=== PATIENT | male | born 1945 | race American Indian/Alaskan Native ===

== ENCOUNTER 2017-04-29 16:57 | Inpatient (IN) | payer MEDICARE, OTHER ==
[2017-04-29] MEDS ORDERED: TAZO IVPB STA (17:16)
[2017-04-29] MEDS ORDERED: PIPERACILL IVPB STA (17:16)
[2017-04-29] MEDS ORDERED: NS IVPB STA (17:16)
[2017-04-29] MEDS ORDERED: Vancomycin 1gm in NS 250ml 1 G/250 ML BAG IVPB STA (17:16)
[2017-04-29 17:25] LABS: VENOUS BLOOD GAS BASE EXCESS -7.5 mmol/L (0.0-2.0); VENOUS BLOOD PH 7.26 (7.32-7.43)
[2017-04-29] MEDS ORDERED: Sodium Chloride 0.9% 1,000 ML IV SCH (17:30)
[2017-04-29 17:32] LABS: BASO # 0.02 K/mm3 (0.0-2.0); BASO % 0.1 % (0.0-3.0); GRAN # 19.15 (1.4-6.5); GRAN % 86.2 % (50.0-68.0); HEMATOCRIT 38.2 % (42.0-52.0); LYMPH # 1.8 (1.2-3.4); LYMPH % 7.9 % (22.0-35.0); MEAN CELL VOLUME 100.3 fl (80.0-105.0); MEAN CORPUSCULAR HEMOGLOBIN 33.6 pg (25.0-35.0); MEAN CORPUSCULAR HGB CONC 33.5 g/dl (31.0-37.0); MEAN PLATELET VOLUME 11.7 fl (7.0-11.0); MONO # 1.3 (0.1-0.6); MONO % 5.8 % (1.0-6.0); RED CELL DISTRIBUTION WIDTH 15.1 % (11.5-14.5); WHITE BLOOD COUNT 22.2 10^3/ul (4.5-11.0)
[2017-04-29 17:41] LABS: BILIRUBIN,TOTAL 0.6 mg/dL (0.2-1.3); CALCIUM 8.4 mg/dL (8.4-10.5); MAGNESIUM 1.4 mg/dL (1.7-2.2); PHOSPHOROUS 3.7 mg/dL (2.5-4.5); POTASSIUM 4.6 mmol/L (3.6-5.0); TOTAL PROTEIN 7.8 g/dL (5.8-8.3)
[2017-04-29 17:44] LABS: INR 1.18 (0.93-1.08); PARTIAL THROMBOPLASTIN TIME 36.3 Seconds (23.7-30.8)
[2017-04-29] MEDS: Sodium Chloride 0.9% 500 ML IV STA ×2 (18:00→18:24)
--- NOTE | 2017-04-29 18:00 | ED PDOC ---
Arrival/HPI - General Chief Complaint: Altered Mental Status Time Seen by Provider: 04/29/17 17:05 Historian: Family - History of Present Illness Narrative History of Present Illness (Text): 04/29/17 17:30 A 71 year old male, whose past medical history includes HIV, hypertension, prostate cancer, chronic kidney disease, and charcots gout, presents to the emergency department for dark black stool, which began about 3 days ago. The patient's hpi is limited and is expressed by his sister. The patient's sister reports that yesterday the patient was at baseline and earlier today the patient was confused, shivering, and breathing really fast. The patient has abdominal pain in addition to his stool changes. The patient denies any chest pain, fever, headaches, nausea, vomiting, or any other complaints at this time. Time/Duration: < week (x 3 days) Symptom Onset: Gradual Symptom Course: Unchanged Activities at Onset: Light Context: Home Past Medical History - Provider Review Nursing Documentation Reviewed: Yes - Infectious Disease Hx of Infectious Diseases: None - Tetanus Immunization Tetanus Immunization: Up to Date - Cardiac Hx Cardiac Disorders: Yes Hx Hypertension: Yes - Pulmonary Hx Respiratory Disorders: No - Neurological Hx Neurological Disorder: No - HEENT Hx HEENT Disorder: No - Renal Hx Renal Disorder: No - Endocrine/Metabolic Hx Diabetes Mellitus Type 1: No Hx Diabetes Mellitus Type 2: No - Hematological/Oncological Hx Blood Transfusions: No - Integumentary Hx Dermatological Disorder: Yes (CELLULITIS OF L ANKLE 8-6-16.AMPUTATED 1ST TOE LEFT FOOT.,I/D RT HAND ABCES) Other/Comment: Ulcer of second toe BL - Musculoskeletal/Rheumatological Hx Musculoskeletal Disorders: Yes Hx Falls: No Hx Gout: Yes Hx Osteomyelitis: Yes (Left first toe) - Gastrointestinal Hx Gastrointestinal Disorders: No - Genitourinary/Gynecological Hx Genitourinary Disorders: Yes Hx Prostate Cancer: Yes - Psychiatric Hx Psychophysiologic Disorder: No Hx Substance Use: No - Surgical History Hx Amputation: Yes (Left first toe) Other/Comment: prostatectomy, incision and drainage of right hand abscess - Anesthesia Hx Anesthesia Reactions: No Hx Malignant Hyperthermia: No Family/Social History - Physician Review Nursing Documentation Reviewed: Yes Family/Social History: Unknown Family HX Smoking Status: Never Smoked Hx Alcohol Use: No Hx Substance Use: No Allergies/Home Meds Allergies/Adverse Reactions: Allergies No Known Allergies Allergy (Verified 04/29/17 17:01) Home Medications: Home Meds Medication Instructions Recorded Confirmed Unobtainable 04/29/17 04/29/17 Review of Systems - Physician Review All systems were reviewed & negative as marked: Yes - Review of Systems Constitutional: absent: Fevers Cardiovascular: absent: Chest Pain Gastrointestinal: Abdominal Pain, Hematochezia (x 3 days ). absent: Nausea, Vomiting Neurological: absent: Headache Physical Exam Vital Signs Reviewed: Yes Vital Signs Temp Pulse Resp BP Pulse Ox 04/29/17 19:07 103 F H 119 H 29 H 144/87 97 04/29/17 18:36 103 F H 04/29/17 17:57 125 H 21 166/98 H 04/29/17 17:36 104 F H 04/29/17 17:33 104 F H 134 H 20 168/110 H 99 04/29/17 17:26 104.7 F H 04/29/17 17:08 122 H 40 H 168/110 H 99 Temperature: Febrile Blood Pressure: Hypertensive Pulse: Tachycardic Respiratory Rate: Tachypneic Appearance: Positive for: Ill-Appearing, Uncomfortable Pain Distress: None Mental Status: Positive for: Alert and Oriented X 3, Confused - Systems Exam Head: Present: Atraumatic, Normocephalic Pupils: Present: PERRL Extroacular Muscles: Present: EOMI Conjunctiva: Present: Normal Mouth: Present: Dry Pharnyx: Present: Normal. No: ERYTHEMA Nose (Internal): Present: Normal Inspection Neck: Present: Normal Range of Motion. No: Lymphadenopathy Respiratory/Chest: Present: Clear to Auscultation, Good Air Exchange. No: Respiratory Distress, Accessory Muscle Use Cardiovascular: Present: Regular Rate and Rhythm, Normal S1, S2. No: Murmurs Abdomen: Present: Normal Bowel Sounds, Other (protuberant abdominal). No: Tenderness, Distention, Peritoneal Signs, Rebound, Guarding Rectal: Present: Other (chaperoned by EMT; dark brown stool with guaiac positve ; no positive hemorrhoid) Back: Present: Normal Inspection Upper Extremity: Present: Normal Inspection. No: Cyanosis, Edema Lower Extremity: Present: Edema (trace edema ), Other (amputation of the 1st and 2nd digit on left foot) Neurological: Present: GCS=15, CN II-XII Intact, Speech Normal Skin: Present: Warm, Dry, Normal Color. No: Rashes Psychiatric: Present: Alert, Oriented x 3, Other (confused ) Medical Decision Making ED Course and Treatment: 04/29/17 18:06 Impression: A 71 year old male with dark black stool and abdominal pain. Differential Diagnosis included but are not limited to: Sepsis due to UTI vs. Abdominal infection vs. PNA; GI bleed Plan: -- VBG -- Abd & Pel CT -- Head CT -- EKG -- Chest X-Ray -- Tylenol, IV fluids, Vancomycin, Zosyn -- Labs -- Procalcitonin serum -- Urinalysis -- Reassess and disposition Prior Visits: Notes and results from previous visits were reviewed. The patient was last seen in the emergency department on 03/25/16 for lower extremity problem. The patient was hospitalized. Progress Notes: EKG: Ordered, reviewed, and independently interpreted the EKG. Rate : 121 BPM Rhythm : Sinus Tachycardic Interpretation : No ST-segment elevations or depressions, no T-wave inversions, normal intervals. Comparison : No previous EKG for comparison. Code sepsis was called due to patient meeting criteria. 04/29/17 18:33 Discussed case with GI Fellow, Dr. Femi De Dios, covering Dr. Leonardo, and informed him of lab results and GI bleed with + guaic and abdominal pain. 04/29/17 18:42 Discussed case with Renal, Dr. Clemons, covering for Dr. Arechiga. 04/29/17 19:[address] Nazario, Cardiology who agrees with no ASA or heparin secondary to GI bleed. Troponin elevation is most likely d/t sepsis and creatinine. Case discussed with Dr Dominguez, ICU Attending who I reviewed the case in detail with him and he will accept it to his service. I also discussed that the CT results are pending. On reevaluation, patient is improving. Breathing has slowed down to 32 RR. Lungs are clear after 2 L of fluids. Fever improved to 103. HR 117. - Critical Care Critical Care Minutes: 60 minutes - Lab Interpretations Lab Results: 04/29/17 17:00 04/29/17 17:00 Lab Results 04/29/17 18:10: Urine Color Yellow, Urine Appearance Sl cloudy, Urine pH 6.0, Ur Specific [place] 1.020, Urine Protein >=300 H, Urine Glucose (UA) Negative, Urine Ketones Negative, Urine Blood Large H, Urine Nitrate Negative, Urine Bilirubin Negative, Urine Urobilinogen 0.2, Ur Leukocyte Esterase Small H, Urine RBC 25 - 30, Urine WBC 10 - 15, Ur Epithelial Cells 0 - 2, Amorphous Sediment Few, Urine Bacteria Many, Urine Other [place] 04/29/17 17:30: Blood Type Pending, Antibody Screen Pending, BBK History Checked No verified bt 04/29/17 17:15: pO2 37, VBG pH 7.26 L, VBG pCO2 43.0, VBG HCO3 19.3 L, VBG Total CO2 20.6 L, VBG O2 Sat (Calc) 68.0 H, VBG Base Excess -7.5 L, VBG Potassium 4.6, Glucose 107, Lactate 5.0 H*, FiO2 21.0, Sodium 141.0, Chloride 106.0, Venous Blood Potassium 4.6 04/29/17 17:00: Sodium 142, Potassium 4.6, Chloride 105, Carbon Dioxide 19 L, Anion Gap 23 H, BUN 76 H, Creatinine 6.7 H, Est GFR ( Amer) 10, Est GFR ( Non-Af Amer) 8, Random Glucose 104, Calcium 8.4, Phosphorus 3.7, Magnesium 1.4 L , Total Bilirubin 0.6, AST 41, ALT 21, Alkaline Phosphatase 75, Troponin I 0.13 H*, NT-Pro-B Natriuret Pep 92546 H, Total Protein 7.8, Albumin 3.9, Globulin 3.9 , Albumin/Globulin Ratio 1.0 L 04/29/17 17:00: PT 12.7 H, INR 1.18 H, APTT 36.3 H 04/29/17 17:00: WBC 22.2 H D, RBC 3.81, Hgb 12.8 L, Hct 38.2 L, MCV 100.3, MCH 33.6, MCHC 33.5, RDW 15.1 H, Plt Count 192, MPV 11.7 H, Gran % 86.2 H, Lymph % ( Auto) 7.9 L, [place] % (Auto) 5.8, Eos % (Auto) 0.0 L, Baso % (Auto) 0.1, Gran # 19.15 H, Lymph # 1.8, [place] # 1.3 H, Eos # 0.0, Baso # 0.02 I have reviewed the lab results: Yes Interpretation: Abnormal lab values - RAD Interpretation Radiology Orders: 04/29/17 17:05 CHEST PORTABLE [RAD] Stat 04/29/17 17:08 CHEST,ABDOMEN, PELVIS W/O CONT [CT] Stat HEAD W/O CONTRAST [CT] Stat 04/29/17 18:21 CHEST W/O CONTRAST [CT] Stat CXR with no acute infiltrate. f/u CT Chest. Production Or Plant Engineer: ED Physician - Medication Orders Current Medication Orders: Piperacillin Sod/Tazobactam Sod (Zosyn 3.375 In Ns 100ml) 100 mls @ 200 mls/hr IVPB Q6 DWAIN PRN Reason: Protocol Stop: 04/30/17 06:29 Sodium Chloride (Sodium Chloride 0.45%) 1,000 mls @ 80 mls/hr IV .[id number] DWAIN Discontinued Medications Acetaminophen (Tylenol 650 Mg Supp) 650 mg RC STAT STA Stop: 04/29/17 17:28 Last Admin: 04/29/17 17:36 Dose: 650 mg Re-Assess: [facility] Pain/Vitals Document 04/29/17 18:36 GMI (Rec: 04/29/17 19:09 GMI [id number]) Pain Reassessment Is This A Pain ReAssessment? No Sleep Is patient sleeping during reassessment? No Presence of Pain Presence of Pain No Vitals Temperature (97.6 F-99.6 F) 103 F Temperature Source Rectal Acetaminophen (Tylenol 650 Mg Supp) Confirm Administered Dose 650 mg .ROUTE .STK -MED ONE Stop: 04/29/17 17:29 Last Admin: 04/29/17 17:54 Dose: Amlodipine Besylate (Norvasc) 5 mg PO STAT STA Stop: 04/29/17 18:54 Sodium Chloride (Sodium Chloride 0.9%) 1,000 mls @ 150 mls/hr IV .[id number] DWAIN Last Admin: 04/29/17 17:54 Dose: 150 mls/hr Vancomycin HCl (Vancomycin 1gm) 1 g in 250 mls @ 167 mls/hr IVPB STAT STA PRN Reason: Protocol Stop: 04/29/17 18:45 Last Admin: 04/29/17 17:55 Dose: 167 mls/hr Piperacillin Sod/Tazobactam Sod (Zosyn 4.5 Gm In Ns 100ml) 4.5 g in 100 mls @ 200 mls/hr IVPB STAT STA PRN Reason: Protocol Stop: 04/29/17 17:45 Sodium Chloride (Sodium Chloride 0.9%) 1,000 mls @ 2,000 mls/hr IV .Q30M ONE Stop: 04/29/17 18:35 Last Admin: 04/29/17 18:17 Dose: 2,000 mls/hr Sodium Chloride (Sodium Chloride 0.9%) 500 mls @ 999 mls/hr IV .Q31M STA Stop: 04/29/17 18:37 Last Admin: 04/29/17 18:24 Dose: - Scribe Statement The provider has reviewed the documentation as recorded by the Malindaibe Jacklyn Hensley Provider Scribe Attestation: All medical record entries made by the Scribe were at my direction and personally dictated by me. I have reviewed the chart and agree that the record accurately reflects my personal performance of the history, physical exam, medical decision making, and the department course for this patient. I have also personally directed, reviewed, and agree with the discharge instructions and disposition. Disposition/Present on Arrival - Present on Arrival Any Indicators Present on Arrival: No History of DVT/PE: No History of Uncontrolled Diabetes: No Urinary Catheter: No History of Decub. Ulcer: No History Surgical Site Infection Following: None - Disposition Have Diagnosis and Disposition been Completed?: Yes Diagnosis: Septic shock, GI bleed, Elevated troponin, Acute on chronic renal failure Disposition: HOSPITALIZED Disposition Time: 18:37 Patient Plan: Admission Patient Problems: Current Active Problems Problem Status Onset Septic shock Acute GI bleed Acute Elevated troponin Acute Acute on chronic renal failure Acute Condition: CRITICAL Referrals: [facility], [Primary Care Provider] - Follow up with primary Forms: [employer] (Upper [place])
[2017-04-29 18:02] LABS: TROPONIN I 0.13 ng/mL
[2017-04-29] MEDS ORDERED: Sodium Chloride 0.9% 1,000 ML IV ONE (18:06)
[2017-04-29 18:31] LABS: URINE BILIRUBIN NEGATIVE (NEGATIVE); URINE BLOOD LARGE (NEGATIVE); URINE GLUCOSE (UA) NEGATIVE (NEGATIVE); URINE KETONE NEGATIVE (NEGATIVE); URINE LEUKOCYTE ESTERASE SMALL Leu/uL (NEGATIVE); URINE PROTEIN >=300 mg/dL (<30 mg/dL); URINE UROBILINOGEN 0.2 E.U./dL (<1 E.U./dL)
[2017-04-29 18:35] LABS: URINE COLOR YELLOW (YELLOW)
[2017-04-29 18:36] LABS: URINE APPEARANCE SL CLOUDY (CLEAR)
[2017-04-29 18:43] LABS: URINE BACTERIA MANY (NEG); URINE EPITHELIAL CELLS 0 - 2 /hpf (0-5); URINE RBC 25 - 30 /hpf (0-2)
[2017-04-29 18:44] LABS: URINE AMORPHOUS SEDIMENT FEW
[2017-04-29] MEDS ORDERED: Sodium Chloride 0.45% 1,000 ML IV SCH ×2 (19:00→22:23)
--- NOTE | 2017-04-29 19:39 | CP.PCM.CON ---
<Carrie Rivas - Last Filed: 04/29/17 22:32> History of Present Illness - History of Present Illness History of Present Illness: PGY2 for Dr. Dominguez ICU consult: dark black stool x 3 days Pt was brought in by sisters who visited him at his apartment today. When sisters visited him at 2pm, pt had generalized weakness needing to hold on the furniture to the bathroom. Sister noticed that stool was watery black. After the first diarrhea, sister notice that pt lost concentration, closing eyes falling asleep frequently, and getting lethargic. At baseline, Pt was AAOx3. He was at [facility] at [facility] with family but look tired and complained of abdominal pain already. Denies travel, sick contact, hiking, animal contact. Unknown status of recent antibiotics At ED, patient was confused, shivering, and breathing really fast. The patient has abdominal pain on R and hypogastric with distention in addition to his stool changes. The patient denies any chest pain, headaches, nausea, vomiting, or dysuria. Upon ED arrival T 104.7, HR 122, RR 40, 168/110, 99RA CBC showed WBC 22.2 and Hb 12.8, plt 192 CMP showed BUN 76, Cre 6.7 (baseline 3.7). LFT nl. INR 1.18 Trops 0.13 BNP 02065 U/A: cloudy, 10-15 WBC, small leuk est with sediment and proten On reevaluation, patient is improving. Breathing has slowed down to 32 RR. Lungs are clear after 2 L of fluids. Fever improved to 103. HR 117. Got NS 3L, zosyn, vanco EKG: A flutter with 2:1 AV conduction. QTc [address] CT head: Atrophy and small vessel disease, no bleed CT abd/pelvis: - bilateral perinephric inflammation and fluid with perlvoureterectaiss . shotty para-aortic adenopahty - small fluid L colic gutter. No free air. Anterolithesis L4 and L5 with severe degenerative facet disease. Phelbolith in pelvis PMH: HTN HIV, last CD4 2016: 349 GI bleed CKD Prostate Cancer Charcots gout Ulcer second toe b/l Hx osteomselitis (L first toe) PSH: AMPUTATED 1ST TOE LEFT FOOT. I/D RT HAND ABCESs prostatectomy incision and drainage of right hand abscess SH: Denies ever smoke, drink, use drug All: NKDA Med: unobtainable [facility] contact: sister Celi ham [phone] Past Patient History - Infectious Disease Hx of Infectious Diseases: None - Tetanus Immunizations Tetanus Immunization: Up to Date - Past Medical History & Family History Past Medical History?: Yes - Past Social History Smoking Status: Never Smoked - CARDIAC Hx Cardiac Disorders: Yes Hx Hypertension: Yes - PULMONARY Hx Respiratory Disorders: No - NEUROLOGICAL Hx Neurological Disorder: No - HEENT Hx HEENT Problems: No - RENAL Hx Chronic Kidney Disease: No - ENDOCRINE/METABOLIC Hx Diabetes Mellitus Type 1: No Hx Diabetes Mellitus Type 2: No - HEMATOLOGICAL/ONCOLOGICAL Hx Blood Transfusions: No - INTEGUMENTARY Hx Dermatological Problems: Yes (CELLULITIS OF L ANKLE 8-16.AMPUTATED 1ST TOE LEFT FOOT.,I/D RT HAND ABCES) Other/Comment: Ulcer of second toe BL - MUSCULOSKELETAL/RHEUMATOLOGICAL Hx Musculoskeletal Disorders: Yes Hx Falls: No Hx Gout: Yes Hx Osteomyelitis: Yes (Left first toe) - GASTROINTESTINAL Hx Gastrointestinal Disorders: No - GENITOURINARY/GYNECOLOGICAL Hx Genitourinary Disorders: Yes Hx Prostate Cancer: Yes - PSYCHIATRIC Hx Psychophysiologic Disorder: No Hx Substance Use: No - SURGICAL HISTORY Hx Amputation: Yes (Left first toe) Other/Comment: prostatectomy, incision and drainage of right hand abscess - ANESTHESIA Hx Anesthesia Reactions: No Hx Malignant Hyperthermia: No Meds Allergies/Adverse Reactions: Allergies Allergy/AdvReac Type Severity Reaction Status Date / Time No Known Allergies Allergy Verified 04/29/17 17:01 - Medications Medications: Current Medications Piperacillin Sod/Tazobactam Sod (Zosyn 3.375 In Ns 100ml) 100 mls @ 200 mls/hr IVPB Q6 DWAIN PRN Reason: Protocol Stop: 04/30/17 06:29 Sodium Chloride (Sodium Chloride 0.45%) 1,000 mls @ 80 mls/hr IV .[id number] [facility] Physical Exam - Constitutional Appears: Confused Additional comments: lethargic, short attention span - Head Exam Head Exam: ATRAUMATIC, NORMAL INSPECTION, NORMOCEPHALIC - Eye Exam Eye Exam: EOMI, Normal appearance, PERRL. absent: Scleral icterus Pupil Exam: NORMAL ACCOMODATION, PERRL - ENT Exam ENT Exam: Mucous Membranes Moist - Neck Exam Additional comments: supple - Respiratory Exam Respiratory Exam: Clear to Auscultation Bilateral. absent: Rales, Rhonchi, Wheezes - Cardiovascular Exam Cardiovascular Exam: Tachycardia, REGULAR RHYTHM, +S1, +S2 - GI/Abdominal Exam GI & Abdominal Exam: Diminished Bowel Sounds, Distended, Soft, Tenderness. absent: Firm, Guarding, Rigid Additional comments: tender RUQ, RLQ, hypogastric/suprapubic, with periumbilical hernia (+) fluid wave. Negative howe - Extremities Exam Extremities exam: Positive for: normal capillary refill, pedal pulses present. Negative for: calf tenderness, pedal edema Additional comments: amputated toes, no ulcers, erythema, drainage - Back Exam Back exam: absent: CVA tenderness (L), CVA tenderness (R) - Neurological Exam Neurological exam: Alert, Oriented x3 Additional comments: lethargic, short attention span. negative brudzinski sign - Psychiatric Exam Psychiatric exam: Normal Affect, Normal Mood - Skin Skin Exam: Dry, Warm Additional comments: skin very warm Results - Vital Signs Recent Vital Signs: Last Vital Signs Temp 103 F H 04/29/17 19:07 Pulse 119 H 04/29/17 19:07 Resp 29 H 04/29/17 19:07 BP 144/87 04/29/17 19:07 Pulse Ox 97 04/29/17 19:07 - Labs Result Diagrams: 04/29/17 17:00 04/29/17 17:00 Labs: Laboratory Results - last 24 hr 04/29/17 04/29/17 04/29/17 17:00 17:00 17:00 WBC 22.2 H D RBC 3.81 Hgb 12.8 L Hct 38.2 L MCV 100.3 MCH 33.6 MCHC 33.5 RDW 15.1 H Plt Count 192 MPV 11.7 H Gran % 86.2 H Lymph % (Auto) 7.9 L [place] % (Auto) 5.8 Eos % (Auto) 0.0 L Baso % (Auto) 0.1 Gran # 19.15 H Lymph # 1.8 [place] # 1.3 H Eos # 0.0 Baso # 0.02 PT 12.7 H INR 1.18 H APTT 36.3 H pO2 VBG pH VBG pCO2 VBG HCO3 VBG Total CO2 VBG O2 Sat (Calc) VBG Base Excess VBG Potassium Glucose Lactate FiO2 Sodium 142 Potassium 4.6 Chloride 105 Carbon Dioxide 19 L Anion Gap 23 H BUN 76 H Creatinine 6.7 H Est GFR ( Amer) 10 Est GFR (Non-Af Amer) 8 Random Glucose 104 Calcium 8.4 Phosphorus 3.7 Magnesium 1.4 L Total Bilirubin 0.6 AST 41 ALT 21 Alkaline Phosphatase 75 Troponin I 0.13 H* NT-Pro-B Natriuret Pep 91662 H Total Protein 7.8 Albumin 3.9 Globulin 3.9 Albumin/Globulin Ratio 1.0 L Venous Blood Potassium Urine Color Urine Appearance Urine pH Ur Specific Loving Urine Protein Urine Glucose (UA) Urine Ketones Urine Blood Urine Nitrate Urine Bilirubin Urine Urobilinogen Ur Leukocyte Esterase Urine RBC Urine WBC Ur Epithelial Cells Amorphous Sediment Urine Bacteria Urine Other Blood Type Blood Type Confirm Antibody Screen BBK History Checked 04/29/17 04/29/17 04/29/17 17:15 17:30 17:50 WBC RBC Hgb Hct MCV MCH MCHC RDW Plt Count MPV Gran % Lymph % (Auto) [place] % (Auto) Eos % (Auto) Baso % (Auto) Gran # Lymph # [place] # Eos # Baso # PT INR APTT pO2 37 VBG pH 7.26 L VBG pCO2 43.0 VBG HCO3 19.3 L VBG Total CO2 20.6 L VBG O2 Sat (Calc) 68.0 H VBG Base Excess -7.5 L VBG Potassium 4.6 Glucose 107 Lactate 5.0 H* FiO2 21.0 Sodium 141.0 Potassium Chloride 106.0 Carbon Dioxide Anion Gap BUN Creatinine Est GFR ( Amer) Est GFR (Non-Af Amer) Random Glucose Calcium Phosphorus Magnesium Total Bilirubin AST ALT Alkaline Phosphatase Troponin I NT-Pro-B Natriuret Pep Total Protein Albumin Globulin Albumin/Globulin Ratio Venous Blood Potassium 4.6 Urine Color Urine Appearance Urine pH Ur Specific Loving Urine Protein Urine Glucose (UA) Urine Ketones Urine Blood Urine Nitrate Urine Bilirubin Urine Urobilinogen Ur Leukocyte Esterase Urine RBC Urine WBC Ur Epithelial Cells Amorphous Sediment Urine Bacteria Urine Other Blood Type O POSITIVE Blood Type Confirm O POSITIVE Antibody Screen Negative BBK History Checked No verified bt 04/29/17 18:10 WBC RBC Hgb Hct MCV MCH MCHC RDW Plt Count MPV Gran % Lymph % (Auto) [place] % (Auto) Eos % (Auto) Baso % (Auto) Gran # Lymph # [place] # Eos # Baso # PT INR APTT pO2 VBG pH VBG pCO2 VBG HCO3 VBG Total CO2 VBG O2 Sat (Calc) VBG Base Excess VBG Potassium Glucose Lactate FiO2 Sodium Potassium Chloride Carbon Dioxide Anion Gap BUN Creatinine Est GFR ( Amer) Est GFR (Non-Af Amer) Random Glucose Calcium Phosphorus Magnesium Total Bilirubin AST ALT Alkaline Phosphatase Troponin I NT-Pro-B Natriuret Pep Total Protein Albumin Globulin Albumin/Globulin Ratio Venous Blood Potassium Urine Color Yellow Urine Appearance Sl cloudy Urine pH 6.0 Ur Specific [place] 1.020 Urine Protein >=300 H Urine Glucose (UA) Negative Urine Ketones Negative Urine Blood Large H Urine Nitrate Negative Urine Bilirubin Negative Urine Urobilinogen 0.2 Ur Leukocyte Esterase Small H Urine RBC 25 - 30 Urine WBC 10 - 15 Ur Epithelial Cells 0 - 2 Amorphous Sediment Few Urine Bacteria Many Urine Other Uyeast Blood Type Blood Type Confirm Antibody Screen BBK History Checked Assessment & Plan - Assessment and Plan (Free Text) Plan: 71 AA M with Hx HIV (last CD4 349 in 2015, unknown viral load, unknown tx), Hx GI bleed, CKD stage 4, prostate ca dx 5 years ago s/p prostectomy/chemo/ radiation, hx pad with toe ulcers, admitted to ICU for active GI bleed likely from upper GI, and severe sepsis likely from pyelonephritis due to postobstructive etiology (prostate ca) with AMS (GCS 3+4+6), demand ischemia of heart, SUSY on CKD, and lactic acidosis. He has high anion gap metabolic acidosis likely from uremia and lactic acidosis. Elevated trops of 0.13 likely due to demand ischemia Neuro Neuro check q4 CT head done Pulm O2 as needed to maintain SaO2 > 95% BNP 86981 likely from fluid resuscitation Cardio A flutter with 2:1 AV conduction No need for heparin gtt for trops 0.13 Transthoracic Echocardiogram in AM Consider DEE DEE to pending clinical course A flutter 2:1 hold anticoagulant for possible active GI bleed GI Protonix gtt after bolus H/H q 6 Consider rectal tube as needed pending amount of melena NPO for AMS for now Nephro/Urol Augustin Strict i/o NS@150 Endo Accu check ACHS Heme Continue monitor H/H T&S done will transfuse when Hb < 8 ID Got vanco and zosyn x 1. Continue zosyn IVF CD 4 count HIV viral load, rpr, cryptococcal antigen/ab C diff, hepattis, crytosporidum stool, ova and parasite pending procalc Prophylaxis SCD Protonix Consult Nephro Dr. Hawk Leonardo Cardio Weller s/r/d/w Dr. Dominguez <Angelica COLLADO,Willard - Last Filed: 04/30/17 09:18> Meds - Medications Medications: Current Medications Abacavir Sulfate (Ziagen) 300 mg PO BID DWAIN Acetaminophen (Tylenol 325mg Tab) 650 mg PO Q4H PRN PRN Reason: Fever >100.4 F Last Admin: 04/30/17 00:10 Dose: 650 mg Pantoprazole Sodium (Protonix 40mg Ivpb) 40 mg in 100 mls @ 20 mls/hr IVPB .Q5H DWAIN Last Admin: 04/30/17 02:29 Dose: 20 mls/hr Sodium Chloride (Sodium Chloride 0.45%) 1,000 mls @ 150 mls/hr IV .Q6H40M DWAIN Last Admin: 04/29/17 22:35 Dose: 150 mls/hr Meropenem 500 mg/ Sodium (Chloride) 100 mls @ 100 mls/hr IVPB Q12 DWAIN PRN Reason: Protocol Stop: 05/07/17 06:22 Last Admin: 04/30/17 07:30 Dose: 100 mls/hr Lamivudine (Epivir) 50 mg PO DAILY [facility] Results - Vital Signs Recent Vital Signs: Last Vital Signs Temp 98.8 F 04/30/17 06:59 Pulse 86 04/30/17 06:00 Resp 28 H 04/30/17 05:20 BP 139/80 04/30/17 05:00 Pulse Ox 97 04/30/17 05:20 - Labs Result Diagrams: 04/30/17 03:10 04/30/17 03:10 Labs: Laboratory Results - last 24 hr 04/29/17 04/30/17 04/30/17 22:00 00:20 00:20 WBC 24.5 H RBC 3.41 L Hgb 11.4 L Hct 33.4 L MCV 97.9 MCH 33.4 MCHC 34.1 RDW 15.0 H Plt Count 163 MPV 11.1 H Gran % 84.2 H Lymph % (Auto) 8.7 L [place] % (Auto) 6.8 H Eos % (Auto) 0.2 L Baso % (Auto) 0.1 Gran # 20.59 H Lymph # 2.1 [place] # 1.7 H Eos # 0.0 Baso # 0.03 pO2 63 H VBG pH 7.40 VBG pCO2 28.0 L VBG HCO3 17.3 L VBG Total CO2 18.2 L VBG O2 Sat (Calc) 94.7 H VBG Base Excess -6.1 L VBG Potassium 4.4 Sodium 138.0 Chloride 110.0 H Glucose 105 Lactate 2.0 FiO2 21.0 Potassium Carbon Dioxide Anion Gap BUN Creatinine Est GFR ( Amer) Est GFR (Non-Af Amer) POC Glucose (mg/dL) Random Glucose Calcium Magnesium Total Bilirubin AST ALT Alkaline Phosphatase Troponin I 0.19 H* D Total Protein Albumin Globulin Albumin/Globulin Ratio Venous Blood Potassium 4.4 04/30/17 04/30/17 04/30/17 01:24 03:10 03:10 WBC 27.3 H* RBC 3.36 L Hgb 11.2 L Hct 33.0 L MCV 98.2 MCH 33.3 MCHC 33.9 RDW 15.2 H Plt Count 149 MPV 10.5 Gran % Lymph % (Auto) [place] % (Auto) Eos % (Auto) Baso % (Auto) Gran # Lymph # [place] # Eos # Baso # pO2 VBG pH VBG pCO2 VBG HCO3 VBG Total CO2 VBG O2 Sat (Calc) VBG Base Excess VBG Potassium Sodium 140 Chloride 110 H Glucose Lactate FiO2 Potassium 4.5 Carbon Dioxide 16 L Anion Gap 19 BUN 75 H Creatinine 6.7 H Est GFR ( Amer) 10 Est GFR (Non-Af Amer) 8 POC Glucose (mg/dL) 116 H Random Glucose 99 Calcium 7.3 L Magnesium 2.0 Total Bilirubin 0.7 AST 36 ALT 33 Alkaline Phosphatase 67 Troponin I 0.22 H* Total Protein 6.4 Albumin 3.0 Globulin 3.4 Albumin/Globulin Ratio 0.9 L Venous Blood Potassium 04/30/17 03:35 WBC RBC Hgb Hct MCV MCH MCHC RDW Plt Count MPV Gran % Lymph % (Auto) [place] % (Auto) Eos % (Auto) Baso % (Auto) Gran # Lymph # [place] # Eos # Baso # pO2 64 H VBG pH 7.36 VBG pCO2 32.0 L VBG HCO3 18.1 L VBG Total CO2 19.1 L VBG O2 Sat (Calc) 95.1 H VBG Base Excess -6.3 L VBG Potassium 4.6 Sodium 139.0 Chloride 110.0 H Glucose 104 Lactate 1.9 FiO2 21.0 Potassium Carbon Dioxide Anion Gap BUN Creatinine Est GFR ( Amer) Est GFR (Non-Af Amer) POC Glucose (mg/dL) Random Glucose Calcium Magnesium Total Bilirubin AST ALT Alkaline Phosphatase Troponin I Total Protein Albumin Globulin Albumin/Globulin Ratio Venous Blood Potassium 4.6 Attending/Attestation - Attestation I have personally seen and examined this patient.: Yes I have fully participated in the care of the patient.: Yes I have reviewed all pertinent clinical information: Yes Notes (Text): -I agree with the above ICU consult note completed by the resident physician, with the following additions and/or changes: The patient is a 71 year old man with a history of HIV (last CL2=155, in 2016), stage 4 CKD, prostate cancer (s/p prostatectomy/chemo/XRT 5 years ago) and peripheral arterial disease who is being admitted to the ICU with sepsis likely due to a combination of pyeloneophritis (due to obstructive uropathy) and infectious diahrrea. He also has uremia with acute on chronic renal failure, an elevated troponin (demand ischemia vs ACS) and melanic diarrhea. Although lethargic and slow when answering questions, he is A&Ox3 with no evidence of nuchal rigidity, thus making meningitis unlikely. He will be treated with broad- spectrum, empiric IV antibiotics (with anerobic and pseudomonal coverage), aggressive IVF's and Protonix drip. Blood and urine cultures, stool studies ( including for Crypto and C.diff), procalcitonin level, 2D-echo, CD4 count and serial trop's and EKG's have all been ordered. GI, cardiology, nephrology and I.D. consults have all been placed. PRN Tylenol for fevers.
--- NOTE | 2017-04-29 20:02 | CT ---
EXAM: CT Head Without Intravenous Contrast EXAM DATE/TIME: 04/29/2017 5:08 PM CLINICAL HISTORY: 71 years old, male; Signs and symptoms; Dizziness and other: R/O CVA TECHNIQUE: Axial computed tomography images of the head/brain without intravenous contrast. All CT scans at this facility use one or more dose reduction techniques, viz.: automated exposure control; ma/kV adjustment per patient size (including targeted exams where dose is matched to indication; i.e. head); or iterative reconstruction technique. COMPARISON: There are no prior studies for comparison. FINDINGS: Brain: There is prominence of sulci gyri and ventricles. There is no midline shift. There is decreased attenuation in periventricular white matter. There are basal ganglia calcifications bilaterally. There are no focal masses. There are no focal hemorrhages. Nieto-white differentiation is visualized. Ventricles: See above. Bones: Cranial vault is intact. Soft tissues: unremarkable Sinuses: There is no acute sinusitis. There are small retention cysts/polyps in the maxillary antra. There is mucoperiosteal cc of the left maxillary sinus. The Ears and mastoids: Middle ears and mastoids are unremarkable. Orbits: There are no intraorbital abnormalities. IMPRESSION: Atrophy and small vessel disease, no bleed
--- NOTE | 2017-04-29 20:31 | CT ---
EXAM: CT Abdomen and Pelvis Without Intravenous Contrast CLINICAL HISTORY: 71 years old, male; Pain; Other: R/O appy vs enteritis/sob R/O pna TECHNIQUE: Axial computed tomography images of the abdomen and pelvis without intravenous contrast. All CT scans at this facility use one or more dose reduction techniques, viz.: automated exposure control; ma/kV adjustment per patient size (including targeted exams where dose is matched to indication; i.e. head); or iterative reconstruction technique. Coronal and sagittal reformatted images were created and reviewed. COMPARISON: There are no prior studies for comparison. FINDINGS: Lower thorax: Refer to following report for chest findings ABDOMEN: Liver: unremarkable Gallbladder and bile ducts: Gallbladder is partially distended. Common duct is unremarkable. Pancreas: unremarkable Spleen: Spleen is unremarkable. There is an accessory spleen in the left upper quadrant. Adrenals: There is bilateral adrenal thickening Kidneys and ureters: There is perinephric inflammation and fluid bilaterally. There are no renal or ureteral stones. There is bilateral pelvoureterectasis. Dilated ureters can be traced to the bladder. Stomach and bowel: Stomach is almost empty. Rotation is normal. Small bowel is mildly distended with fluid. There scattered air-fluid levels in mid ileal loops. Distal ileum is mildly distended with fluid. Ileocecal region is unremarkable. Appendix and terminal ileum are unremarkable. Colon is incompletely distended which limits evaluation. There is diverticulosis. There is mild rectal wall thickening. Appendix: See stomach and bowel PELVIS: Bladder: Bladder is empty with a Augustin catheter. There is bladder wall thickening. Reproductive: There is prominence of the prostate. There is mild prominence of the seminal vesicles. ABDOMEN and PELVIS: Intraperitoneal space: There is a small amount of fluid in the left colic gutter.There is no free air. Bones/joints: Bony structures are osteopenic. There degenerative changes at multiple levels. There is severe degenerative changes L4-5 and L5-S1. There is anterolisthesis L4 and L5. There is severe disc space narrowing L4-5 and L5-S1. There is degenerative facet disease. Soft tissues: There is a small fat containing umbilical hernia. Vasculature: There are phleboliths in the pelvis. There are vascular calcifications. Lymph nodes: There is shotty para-aortic adenopathy. IMPRESSION: Bilateral perinephric inflammation and fluid with pelvoureterectasis suggests obstructive uropathy, findings may be due to bladder wall thickening or prior bladder distention, bladder is now empty with a Augustin catheter Limited evaluation of the colon due to under distention and streak, diverticulosis without definite findings of diverticulitis, fluid and inflammation in the left colic gutter adjacent to the left kidney may be secondary to left renal/retroperitoneal disease Mild rectal wall thickening, possible proctitis Mild ileus, no obstruction Additional findings as described above. EXAM: CT Chest Without Intravenous Contrast EXAM DATE/TIME: 04/29/2017 5:08 PM CLINICAL HISTORY: 71 years old, male; Pain; Other: R/O appy vs enteritis/sob R/O pna TECHNIQUE: Axial computed tomography images of the chest without intravenous contrast. All CT scans at this facility use one or more dose reduction techniques, viz.: automated exposure control; ma/kV adjustment per patient size (including targeted exams where dose is matched to indication; i.e. head); or iterative reconstruction technique. Coronal and sagittal reformatted images were created and reviewed. COMPARISON: There are no prior studies for comparison. FINDINGS: Artifacts: Motion artifact degrades image quality.Streak artifact degrades image quality. Lungs and pleural spaces: Trachea and main bronchi are patent. There is apical pleural-parenchymal scarring bilaterally left greater than right. There is no focal consolidation the upper lobe. There is no consolidation in the right middle lobe. There is minimal atelectasis and scarring in the right middle lobe. There is dependent airspace disease at both lung bases. There are no definite effusions. Heart and vasculature: The heart is mildly enlarged.There is trace fluid in pericardial recesses. There are coronary calcifications. Main pulmonary arteries normal in caliber. Ascending aorta is mildly dilated, 4.4 cm maximal diameter at the proximal arch. There is distal tapering. There are calcifications in the descending aortic wall. There is minimal iatrogenic venous air Mediastinum: Esophagus is partially distended with air. There is a hiatal hernia. There is shotty mediastinal nodes.Fouzia are not optimally evaluated without contrast material. Thyroid: Thyroid is unremarkable Bones/joints: Bony structures are osteopenic. There are degenerative changes in the osseus structures. Soft tissues: unremarkable Upper abdomen: Refer to prior report for abdominal findings IMPRESSION: Limited by streak and motion, no focal pneumonia; dependent atelectasis at the lung bases; cardiomegaly and atherosclerotic disease with mild aneurysmal dilatation the descending aorta Additional findings as described above.
[2017-04-29 20:59] LABS: VENOUS BLOOD GAS BASE EXCESS -8.2 mmol/L (0.0-2.0); VENOUS BLOOD PH 7.22 (7.32-7.43)
[2017-04-29] MEDS: Pantoprazole 40mg/100ml IVPB 40 MG/100 ML BAG IVPB SCH (22:34)
[2017-04-29] MEDS: Piperacillin/Tazobact 3.375 gm 100 ML IVPB SCH (23:25)
[2017-04-30 00:38] LABS: BASO # 0.03 K/mm3 (0.0-2.0); BASO % 0.1 % (0.0-3.0); EOS % 0.2 % (1.5-5.0); GRAN # 20.59 (1.4-6.5); GRAN % 84.2 % (50.0-68.0); HEMATOCRIT 33.4 % (42.0-52.0); LYMPH # 2.1 (1.2-3.4); LYMPH % 8.7 % (22.0-35.0); MEAN CELL VOLUME 97.9 fl (80.0-105.0); MEAN CORPUSCULAR HEMOGLOBIN 33.4 pg (25.0-35.0); MEAN CORPUSCULAR HGB CONC 34.1 g/dl (31.0-37.0); MEAN PLATELET VOLUME 11.1 fl (7.0-11.0); MONO # 1.7 (0.1-0.6); MONO % 6.8 % (1.0-6.0); WHITE BLOOD COUNT 24.5 10^3/ul (4.5-11.0)
[2017-04-30 00:39] LABS: VENOUS BLOOD GAS BASE EXCESS -6.1 mmol/L (0.0-2.0)
[2017-04-30] MEDS ORDERED: Magnesium Sulfate 2 GM in Sodium Chloride 0.9% 100 ML IVPB ONE (01:36)
[2017-04-30] MEDS: Pantoprazole 40mg/100ml IVPB 40 MG/100 ML BAG IVPB SCH (02:29)
[2017-04-30 03:25] LABS: MEAN CELL VOLUME 98.2 fl (80.0-105.0); MEAN CORPUSCULAR HEMOGLOBIN 33.3 pg (25.0-35.0); MEAN CORPUSCULAR HGB CONC 33.9 g/dl (31.0-37.0); MEAN PLATELET VOLUME 10.5 fl (7.0-11.0); RED CELL DISTRIBUTION WIDTH 15.2 % (11.5-14.5)
[2017-04-30 03:29] LABS: WHITE BLOOD COUNT 27.3 10^3/ul (4.5-11.0)
[2017-04-30 03:35] LABS: ALB/GLOB RATIO 0.9 (1.1-1.8); BILIRUBIN,TOTAL 0.7 mg/dL (0.2-1.3); CALCIUM 7.3 mg/dL (8.4-10.5); POTASSIUM 4.5 mmol/L (3.6-5.0); TOTAL PROTEIN 6.4 g/dL (5.8-8.3)
[2017-04-30 03:40] VITALS: BMI 25.2
[2017-04-30 03:47] LABS: VENOUS BLOOD GAS BASE EXCESS -6.3 mmol/L (0.0-2.0); VENOUS BLOOD PH 7.36 (7.32-7.43)
[2017-04-30 03:49] LABS: TROPONIN I 0.22 ng/mL
[2017-04-30] MEDS: Piperacillin/Tazobact 3.375 gm 100 ML IVPB SCH (05:03)
--- NOTE | 2017-04-30 07:21 | HP ---
HISTORY OF PRESENT ILLNESS: I was called down to the emergency room by the ER doctor on this patient, who was brought in; reports for about 3 days, he has been giving out black stools, mostly history is by the sister who does not know him that well. He has been confused and shivering, breathing fast, abdominal pain, stool changes and is in and out of it. PAST MEDICAL HISTORY: He has a past medical history of HIV, hypertension, prostate cancer, chronic kidney disease, Charcot joint, gout, hypertension, diabetes, has history of cellulitis of the left ankle, amputation of first toe on the left foot, right hand abscess, also the second toe bilaterally, osteomyelitis of the left first toe, prostate cancer, prostatectomy, incision and drainage of his right hand abscess. FAMILY HISTORY: Unknown family history. SOCIAL HISTORY: No smoking. No drinking. No drugs. ALLERGIES: NO KNOWN DRUG ALLERGIES. MEDICATIONS: No apparent medications that we could find at this time. He is in and out it mentally. He is having fevers. He cannot give out the history; has had some abdominal pain, dark bowel movements, very poor historian, and cannot get much out of him, and the sister does not known much. PHYSICAL EXAMINATION GENERAL: He is well appearing, uncomfortable, difficult to talk to, eyes open, eyes close. He is alert, but confused. VITAL SIGNS: He does have 104.7 temperature, 134 pulse, 21 respiratory rate, 168/110 blood pressure with 99% O2 saturation on oxygen. HEENT: Head is atraumatic, normocephalic. Difficult to examined his eyes, at least the muscle part equally react to light and accommodation. Throat is dry. NECK: Supple. LUNGS: Decreased breath sound, very poor inspiration, no auscultated wheezes or rhonchi. HEART: Regular rate, normal S1 and S2. ABDOMEN: Mildly distended, but normal bowel sound. No guarding. No rebound. No CVA tenderness. RECTAL: Rectal exam in ER with dark brown stool, guaiac positive though. No apparent back pain. EXTREMITIES: There is trace edema of his lower extremities, amputation of the first and second digit on the left foot. NEUROLOGIC: Cranial nerves are grossly intact. GCS 15 in the ER. He is alert and confused. SKIN: Warm and dry. LABORATORY DATA: A lot of tests are being done. Head CAT scan, chest, abdomen CAT scan and chest x-ray are all pending, but we do have a white of count of 22.2 thousand, 12.8 hemoglobin, 30.2 hematocrit with 192 platelets. INRs 1.18; pH is 7.26. Lactate is 5. Sodium 142, potassium 4.6, BUN 76, creatinine 6.7 is ari high. GFR is 8, sugars 104, calcium is 8.4, magnesium is 1.4. His troponin was 0.13, AST is 41, ALT is 21, alkaline phosphatase 75. BNP is very high at 22,000. Urine has many bacteria. ASSESSMENT AND PLAN: He has severe sepsis going on, UTI, GI bleed, possible LA, acute kidney injury on top of acute renal failure. He has HIV. He is diabetic with hypertension. Consult with infectious disease, renal, cardiology, and GI to get started. He is going to go to the intensive care unit. He is a very sick patient. Discussed with the family at length, hopefully will respond to treatment and medications. Parag Brownlee DO [facility]
--- NOTE | 2017-04-30 07:23 | RAD ---
HISTORY: Sepsis Patient COMPARISON: 03/25/2016 FINDINGS: LUNGS: No active pulmonary disease. PLEURA: No significant pleural effusion identified, no pneumothorax apparent. CARDIOVASCULAR: Normal. OSSEOUS STRUCTURES: No significant abnormalities. VISUALIZED UPPER ABDOMEN: Normal. OTHER FINDINGS: None. IMPRESSION: No active disease.
[2017-04-30] MEDS: Meropenem 500 MG in Sodium Chloride 0.9% 100 ML IVPB SCH ×2 (07:30→22:10)
--- NOTE | 2017-04-30 10:52 | CP.PCM.CON ---
History of Present Illness - History of Present Illness History of Present Illness: 71 year old male with PMH of HTN, prostate CA, HIV ([facility], [facility] CD4 count on our records 03/2016 is 349 with VL < 1.3 log), history of osteomyelitis of left first toe S/P amputation (2015), gout, history of left foot ulcers was brought in to [facility] after having worsening abdominal pain for the past 3 days, associated with generalized weakness, and dark colored loose bowel movement. The patient also developed fever and chills and had decreased urination and difficulty urinating. He was also noted to be lethargic prior to presentation at the ED. In the ED, CT scan of the abdomen and pelvis showed perinephric inflammation and distal ileum which is mildly distended. Infectious Diseases consult is requested to further evaluate and manage. Review of Systems - Review of Systems All systems: reviewed and no additional remarkable complaints except (as per HPI ) Past Patient History - Infectious Disease Hx of Infectious Diseases: None - Tetanus Immunizations Tetanus Immunization: Up to Date - Past Medical History & Family History Past Medical History?: Yes - Past Social History Smoking Status: Never Smoked - CARDIAC Hx Cardiac Disorders: Yes Hx Hypertension: Yes - PULMONARY Hx Respiratory Disorders: No - NEUROLOGICAL Hx Neurological Disorder: No - HEENT Hx HEENT Problems: No - RENAL Hx Chronic Kidney Disease: No - ENDOCRINE/METABOLIC Hx Diabetes Mellitus Type 1: No Hx Diabetes Mellitus Type 2: No - HEMATOLOGICAL/ONCOLOGICAL Hx Blood Transfusions: No - INTEGUMENTARY Hx Dermatological Problems: Yes (CELLULITIS OF L ANKLE 8--16.AMPUTATED 1ST TOE LEFT FOOT.,I/D RT HAND ABCES) Other/Comment: Ulcer of second toe BL - MUSCULOSKELETAL/RHEUMATOLOGICAL Hx Musculoskeletal Disorders: Yes Hx Falls: No Hx Gout: Yes Hx Osteomyelitis: Yes (Left first toe) - GASTROINTESTINAL Hx Gastrointestinal Disorders: No - GENITOURINARY/GYNECOLOGICAL Hx Genitourinary Disorders: Yes Hx Prostate Cancer: Yes - PSYCHIATRIC Hx Psychophysiologic Disorder: No Hx Substance Use: No - SURGICAL HISTORY Hx Amputation: Yes (Left first toe) Other/Comment: prostatectomy, incision and drainage of right hand abscess - ANESTHESIA Hx Anesthesia Reactions: No Hx Malignant Hyperthermia: No Meds Allergies/Adverse Reactions: Allergies Allergy/AdvReac Type Severity Reaction Status Date / Time No Known Allergies Allergy Verified 04/29/17 17:01 - Medications Medications: Current Medications Acetaminophen (Tylenol 325mg Tab) 650 mg PO Q4H PRN PRN Reason: Fever >100.4 F Last Admin: 04/30/17 00:10 Dose: 650 mg Piperacillin Sod/Tazobactam Sod (Zosyn 3.375 In Ns 100ml) 100 mls @ 200 mls/hr IVPB Q6 DWAIN PRN Reason: Protocol Stop: 04/30/17 06:29 Last Admin: 04/30/17 05:03 Dose: 200 mls/hr Pantoprazole Sodium (Protonix 40mg Ivpb) 40 mg in 100 mls @ 20 mls/hr IVPB .Q5H [facility] Last Admin: 04/30/17 02:29 Dose: 20 mls/hr Sodium Chloride (Sodium Chloride 0.45%) 1,000 mls @ 150 mls/hr IV .Q6H40M [facility] Last Admin: 04/29/17 22:35 Dose: 150 mls/hr Physical Exam - Constitutional Appears: Chronically Ill - Head Exam Head Exam: NORMAL INSPECTION - ENT Exam ENT Exam: Mucous Membranes Moist - Neck Exam Neck exam: Negative for: Meningismus - Respiratory Exam Respiratory Exam: Decreased Breath Sounds - Cardiovascular Exam Cardiovascular Exam: +S1, +S2 - GI/Abdominal Exam GI & Abdominal Exam: Soft, Tenderness (on the right side ). absent: Distended, Rebound, Rigid Results - Vital Signs Recent Vital Signs: Last Vital Signs Temp 99.6 F 04/30/17 03:00 Pulse 86 04/30/17 06:00 Resp 28 H 04/30/17 05:20 BP 139/80 04/30/17 05:00 Pulse Ox 97 04/30/17 05:20 - Labs Result Diagrams: 04/30/17 03:10 04/30/17 03:10 Labs: Laboratory Results - last 24 hr 04/29/17 04/30/17 04/30/17 22:00 00:20 00:20 WBC 24.5 H RBC 3.41 L Hgb 11.4 L Hct 33.4 L MCV 97.9 MCH 33.4 MCHC 34.1 RDW 15.0 H Plt Count 163 MPV 11.1 H Gran % 84.2 H Lymph % (Auto) 8.7 L [place] % (Auto) 6.8 H Eos % (Auto) 0.2 L Baso % (Auto) 0.1 Gran # 20.59 H Lymph # 2.1 [place] # 1.7 H Eos # 0.0 Baso # 0.03 pO2 63 H VBG pH 7.40 VBG pCO2 28.0 L VBG HCO3 17.3 L VBG Total CO2 18.2 L VBG O2 Sat (Calc) 94.7 H VBG Base Excess -6.1 L VBG Potassium 4.4 Sodium 138.0 Chloride 110.0 H Glucose 105 Lactate 2.0 FiO2 21.0 Potassium Carbon Dioxide Anion Gap BUN Creatinine Est GFR ( Amer) Est GFR (Non-Af Amer) POC Glucose (mg/dL) Random Glucose Calcium Magnesium Total Bilirubin AST ALT Alkaline Phosphatase Troponin I 0.19 H* D Total Protein Albumin Globulin Albumin/Globulin Ratio Venous Blood Potassium 4.4 04/30/17 04/30/17 04/30/17 01:24 03:10 03:10 WBC 27.3 H* RBC 3.36 L Hgb 11.2 L Hct 33.0 L MCV 98.2 MCH 33.3 MCHC 33.9 RDW 15.2 H Plt Count 149 MPV 10.5 Gran % Lymph % (Auto) [place] % (Auto) Eos % (Auto) Baso % (Auto) Gran # Lymph # [place] # Eos # Baso # pO2 VBG pH VBG pCO2 VBG HCO3 VBG Total CO2 VBG O2 Sat (Calc) VBG Base Excess VBG Potassium Sodium 140 Chloride 110 H Glucose Lactate FiO2 Potassium 4.5 Carbon Dioxide 16 L Anion Gap 19 BUN 75 H Creatinine 6.7 H Est GFR ( Amer) 10 Est GFR (Non-Af Amer) 8 POC Glucose (mg/dL) 116 H Random Glucose 99 Calcium 7.3 L Magnesium 2.0 Total Bilirubin 0.7 AST 36 ALT 33 Alkaline Phosphatase 67 Troponin I 0.22 H* Total Protein 6.4 Albumin 3.0 Globulin 3.4 Albumin/Globulin Ratio 0.9 L Venous Blood Potassium 04/30/17 03:35 WBC RBC Hgb Hct MCV MCH MCHC RDW Plt Count MPV Gran % Lymph % (Auto) [place] % (Auto) Eos % (Auto) Baso % (Auto) Gran # Lymph # [place] # Eos # Baso # pO2 64 H VBG pH 7.36 VBG pCO2 32.0 L VBG HCO3 18.1 L VBG Total CO2 19.1 L VBG O2 Sat (Calc) 95.1 H VBG Base Excess -6.3 L VBG Potassium 4.6 Sodium 139.0 Chloride 110.0 H Glucose 104 Lactate 1.9 FiO2 21.0 Potassium Carbon Dioxide Anion Gap BUN Creatinine Est GFR ( Amer) Est GFR (Non-Af Amer) POC Glucose (mg/dL) Random Glucose Calcium Magnesium Total Bilirubin AST ALT Alkaline Phosphatase Troponin I Total Protein Albumin Globulin Albumin/Globulin Ratio Venous Blood Potassium 4.6 Assessment & Plan - Assessment and Plan (Free Text) Plan: Assessment Consider severe sepsis with acute on chronic renal failure probably due to intra -abdominal infection (possible ileitis/colitis/proctitis) R/O pyelonephritis in this patient presenting with melena; ischemic colitis is also part of the differential diagnosis Charcot foot, left history of left 2nd toe dry gangrene Chronic renal failure HTN prostate CA HIV ([facility] with [facility] count her at [facility] [place] 03/2016 349 and virus load < 1.3 log) history of osteomyelitis of left first toe S/P amputation (2015) gout history of left foot ulcers Plan started patient on a dose of IV Vancomycin and started Merrem; follow up blood cx, stool cx, Stool for C. diff.; will also start PO Vanco for now pending stool work up continue antiretroviral therapy (lamivudine, abacavir on formulary but dolutegravir should be taken by patient from his home supply) follow up GI evaluation Will follow clinically
[2017-04-30] MEDS: LamiVUDine 10 mg/ml Syringe PO SCH (10:56)
--- NOTE | 2017-04-30 12:13 | CP.PCM.CON ---
<Julian Armendariz - Last Filed: 04/30/17 12:01> History of Present Illness - History of Present Illness History of Present Illness: GI Consult Note for Dr. Parish 71 y/o M with PMH of HTN, HIV with last CD4 count of 349 in 2016, GI bleed, chronic kidney disease, and prostate cancer presented to the hospital by his sister for increasing lethargy and black stools. History provided mainly from previous medical records and staff as patient was confused and lethargic. Pt was noted to have generalized weakness earlier in the day yesterday. Pt's family stated the patient had become increasingly weak and lethargic over the last several days. Patient was also noted to have black, watery stools over the last 3 days by his sister. This morning, patient states he has diffuse abdominal pain, but no other complaints at this time. No bowel movements since admission. Pt does admit to having an endoscopy and colonoscopy at the [facility] 3 months ago of which the results are unknown at this time. Pt denies Chest pain, shortness of breath, fever, nausea, vomiting, diarrhea, hematochezia, hematemesis, dysphagia, black colored stool. 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, prostatectomy Social Hx: Denies alcohol, tobacco, or illicit drug use Allergies: NKDA Medications: Reviewed, as per chart Endo Hx: [facility] Review of Systems - Review of Systems Review of Systems: 12 point ROS as per HPI, otherwise negative Past Patient History - Infectious Disease Hx of Infectious Diseases: None - Tetanus Immunizations Tetanus Immunization: Up to Date - Past Medical History & Family History Past Medical History?: Yes - Past Social History Smoking Status: Never Smoked - CARDIAC Hx Cardiac Disorders: Yes Hx Hypertension: Yes - PULMONARY Hx Respiratory Disorders: No - NEUROLOGICAL Hx Neurological Disorder: No - HEENT Hx HEENT Problems: No - RENAL Hx Chronic Kidney Disease: No - ENDOCRINE/METABOLIC Hx Diabetes Mellitus Type 1: No Hx Diabetes Mellitus Type 2: No - HEMATOLOGICAL/ONCOLOGICAL Hx Blood Transfusions: No - INTEGUMENTARY Hx Dermatological Problems: Yes (CELLULITIS OF L ANKLE 8-6-16.AMPUTATED 1ST TOE LEFT FOOT.,I/D RT HAND ABCES) Other/Comment: Ulcer of second toe BL - MUSCULOSKELETAL/RHEUMATOLOGICAL Hx Musculoskeletal Disorders: Yes Hx Falls: No Hx Gout: Yes Hx Osteomyelitis: Yes (Left first toe) - GASTROINTESTINAL Hx Gastrointestinal Disorders: No - GENITOURINARY/GYNECOLOGICAL Hx Genitourinary Disorders: Yes Hx Prostate Cancer: Yes - PSYCHIATRIC Hx Psychophysiologic Disorder: No Hx Substance Use: No - SURGICAL HISTORY Hx Amputation: Yes (Left first toe) Other/Comment: prostatectomy, incision and drainage of right hand abscess - ANESTHESIA Hx Anesthesia Reactions: No Hx Malignant Hyperthermia: No Meds Allergies/Adverse Reactions: Allergies Allergy/AdvReac Type Severity Reaction Status Date / Time No Known Allergies Allergy Verified 04/29/17 17:01 - Medications Medications: Current Medications Abacavir Sulfate (Ziagen) 300 mg PO BID [facility] Last Admin: 04/30/17 10:58 Dose: 300 mg Acetaminophen (Tylenol 325mg Tab) 650 mg PO Q4H PRN PRN Reason: Fever >100.4 F Last Admin: 04/30/17 11:59 Dose: 650 mg Sodium Chloride (Sodium Chloride 0.45%) 1,000 mls @ 150 mls/hr IV .Q6H40M [facility] Last Admin: 04/29/17 22:35 Dose: 150 mls/hr Meropenem 500 mg/ Sodium (Chloride) 100 mls @ 100 mls/hr IVPB Q12 DWAIN PRN Reason: Protocol Stop: 05/07/17 06:22 Last Admin: 04/30/17 07:30 Dose: 100 mls/hr Lamivudine (Epivir) 50 mg PO DAILY [facility] Last Admin: 04/30/17 10:56 Dose: 50 mg Pantoprazole Sodium (Protonix Ec Tab) 40 mg PO 0600 [facility] Vancomycin HCl (Vancocin 25 Mg/Ml (Oral Use)) 125 mg PO QID [facility] PRN Reason: Protocol Physical Exam - Constitutional Appears: Non-toxic, No Acute Distress - Head Exam Head Exam: ATRAUMATIC, NORMAL INSPECTION, NORMOCEPHALIC - ENT Exam ENT Exam: Mucous Membranes Moist - Respiratory Exam Respiratory Exam: Clear to Auscultation Bilateral, NORMAL BREATHING PATTERN. absent: Rales, Rhonchi, Wheezes - Cardiovascular Exam Cardiovascular Exam: RRR, +S1, +S2 - GI/Abdominal Exam GI & Abdominal Exam: Hernia (Umbilical ), Normal Bowel Sounds, Soft, Tenderness (Diffuse tenderness). absent: Distended, Firm, Guarding, Rebound - Neurological Exam Neurological exam: Alert, CN II-XII Intact, Oriented x3 Additional comments: Lethargic and confused, but oriented x3 - Psychiatric Exam Psychiatric exam: Normal Affect, Normal Mood - Skin Skin Exam: Intact, Normal Color, Warm Results - Vital Signs Recent Vital Signs: Last Vital Signs Temp 98.8 F 04/30/17 06:59 Pulse 86 04/30/17 06:00 Resp 28 H 04/30/17 05:20 BP 139/80 04/30/17 05:00 Pulse Ox 97 04/30/17 05:20 - Labs Result Diagrams: 04/30/17 03:10 04/30/17 03:10 Labs: Laboratory Results - last 24 hr 04/29/17 04/30/17 04/30/17 22:00 00:20 00:20 WBC 24.5 H RBC 3.41 L Hgb 11.4 L Hct 33.4 L MCV 97.9 MCH 33.4 MCHC 34.1 RDW 15.0 H Plt Count 163 MPV 11.1 H Gran % 84.2 H Lymph % (Auto) 8.7 L [place] % (Auto) 6.8 H Eos % (Auto) 0.2 L Baso % (Auto) 0.1 Gran # 20.59 H Lymph # 2.1 [place] # 1.7 H Eos # 0.0 Baso # 0.03 pO2 63 H VBG pH 7.40 VBG pCO2 28.0 L VBG HCO3 17.3 L VBG Total CO2 18.2 L VBG O2 Sat (Calc) 94.7 H VBG Base Excess -6.1 L VBG Potassium 4.4 Sodium 138.0 Chloride 110.0 H Glucose 105 Lactate 2.0 FiO2 21.0 Potassium Carbon Dioxide Anion Gap BUN Creatinine Est GFR ( Amer) Est GFR (Non-Af Amer) POC Glucose (mg/dL) Random Glucose Calcium Magnesium Total Bilirubin AST ALT Alkaline Phosphatase Troponin I 0.19 H* D Total Protein Albumin Globulin Albumin/Globulin Ratio Venous Blood Potassium 4.4 Hepatitis A IgM Ab Hep Bs Antigen Hep B Core IgM Ab 04/30/17 04/30/17 04/30/17 01:24 03:10 03:10 WBC RBC Hgb Hct MCV MCH MCHC RDW Plt Count MPV Gran % Lymph % (Auto) [place] % (Auto) Eos % (Auto) Baso % (Auto) Gran # Lymph # [place] # Eos # Baso # pO2 VBG pH VBG pCO2 VBG HCO3 VBG Total CO2 VBG O2 Sat (Calc) VBG Base Excess VBG Potassium Sodium 140 Chloride 110 H Glucose Lactate FiO2 Potassium 4.5 Carbon Dioxide 16 L Anion Gap 19 BUN 75 H Creatinine 6.7 H Est GFR ( Amer) 10 Est GFR (Non-Af Amer) 8 POC Glucose (mg/dL) 116 H Random Glucose 99 Calcium 7.3 L Magnesium 2.0 Total Bilirubin 0.7 AST 36 ALT 33 Alkaline Phosphatase 67 Troponin I 0.22 H* Total Protein 6.4 Albumin 3.0 Globulin 3.4 Albumin/Globulin Ratio 0.9 L Venous Blood Potassium Hepatitis A IgM Ab Negative Hep Bs Antigen Negative Hep B Core IgM Ab Negative 04/30/17 04/30/17 03:10 03:35 WBC 27.3 H* RBC 3.36 L Hgb 11.2 L Hct 33.0 L MCV 98.2 MCH 33.3 MCHC 33.9 RDW 15.2 H Plt Count 149 MPV 10.5 Gran % Lymph % (Auto) [place] % (Auto) Eos % (Auto) Baso % (Auto) Gran # Lymph # [place] # Eos # Baso # pO2 64 H VBG pH 7.36 VBG pCO2 32.0 L VBG HCO3 18.1 L VBG Total CO2 19.1 L VBG O2 Sat (Calc) 95.1 H VBG Base Excess -6.3 L VBG Potassium 4.6 Sodium 139.0 Chloride 110.0 H Glucose 104 Lactate 1.9 FiO2 21.0 Potassium Carbon Dioxide Anion Gap BUN Creatinine Est GFR ( Amer) Est GFR (Non-Af Amer) POC Glucose (mg/dL) Random Glucose Calcium Magnesium Total Bilirubin AST ALT Alkaline Phosphatase Troponin I Total Protein Albumin Globulin Albumin/Globulin Ratio Venous Blood Potassium 4.6 Hepatitis A IgM Ab Hep Bs Antigen Hep B Core IgM Ab Assessment & Plan - Assessment and Plan (Free Text) Plan: - Questionable upper GI bleed - MODS secondary to pyelonephritis - HTN - HIV - Prostate Cancer Plan: - Continue broad spectrum antibiotics for MODS - Discontinue Protonix drip, start Protonix PO - Clear liquid diet - Monitor Hg - Will obtain records of recent EGD/Colonoscopy from - Will continue to monitor for signs of acute GI bleed Kala, PGY-2 <Shoaib Parish - Last Filed: 04/30/17 16:52> Meds - Medications Medications: Current Medications Abacavir Sulfate (Ziagen) 300 mg PO BID [facility] Last Admin: 04/30/17 10:58 Dose: 300 mg Acetaminophen (Tylenol 325mg Tab) 650 mg PO Q4H PRN PRN Reason: Fever >100.4 F Last Admin: 04/30/17 11:59 Dose: 650 mg Albuterol/Ipratropium (Duoneb 3 Mg/0.5 Mg (3 Ml) Ud) 3 ml IH Q2H PRN PRN Reason: Shortness of Breath Last Admin: 04/30/17 12:37 Dose: 3 ml Meropenem 500 mg/ Sodium (Chloride) 100 mls @ 100 mls/hr IVPB Q12 DWAIN PRN Reason: Protocol Stop: 05/07/17 06:22 Last Admin: 04/30/17 07:30 Dose: 100 mls/hr Lamivudine (Epivir) 50 mg PO DAILY [facility] Last Admin: 04/30/17 10:56 Dose: 50 mg Morphine Sulfate (Morphine) 1 mg IVP Q3H PRN PRN Reason: Pain, moderate (4-7) Pantoprazole Sodium (Protonix Ec Tab) 40 mg PO 0600 [facility] Sodium Bicarbonate (Sodium Bicarbonate Tab) 1,300 mg PO BID DWAIN Vancomycin HCl (Vancocin 25 Mg/Ml (Oral Use)) 125 mg PO QID DWAIN PRN Reason: Protocol Results - Vital Signs Recent Vital Signs: Last Vital Signs Temp 98.8 F 04/30/17 06:59 Pulse 96 H 04/30/17 12:40 Resp 28 H 04/30/17 05:20 BP 139/80 04/30/17 05:00 Pulse Ox 97 04/30/17 05:20 - Labs Result Diagrams: 04/30/17 03:10 04/30/17 03:10 Labs: Laboratory Results - last 24 hr 04/29/17 04/30/17 04/30/17 22:00 00:20 00:20 WBC 24.5 H RBC 3.41 L Hgb 11.4 L Hct 33.4 L MCV 97.9 MCH 33.4 MCHC 34.1 RDW 15.0 H Plt Count 163 MPV 11.1 H Gran % 84.2 H Lymph % (Auto) 8.7 L [place] % (Auto) 6.8 H Eos % (Auto) 0.2 L Baso % (Auto) 0.1 Gran # 20.59 H Lymph # 2.1 [place] # 1.7 H Eos # 0.0 Baso # 0.03 pO2 63 H VBG pH 7.40 VBG pCO2 28.0 L VBG HCO3 17.3 L VBG Total CO2 18.2 L VBG O2 Sat (Calc) 94.7 H VBG Base Excess -6.1 L VBG Potassium 4.4 Sodium 138.0 Chloride 110.0 H Glucose 105 Lactate 2.0 FiO2 21.0 Potassium Carbon Dioxide Anion Gap BUN Creatinine Est GFR ( Amer) Est GFR (Non-Af Amer) POC Glucose (mg/dL) Random Glucose Calcium Magnesium Total Bilirubin AST ALT Alkaline Phosphatase Troponin I 0.19 H* D Total Protein Albumin Globulin Albumin/Globulin Ratio Procalcitonin Venous Blood Potassium 4.4 Stool Occult Blood RPR Hepatitis A IgM Ab Hep Bs Antigen Hep B Core IgM Ab Hepatitis C Antibody 04/30/17 04/30/17 04/30/17 01:24 03:10 03:10 WBC RBC Hgb Hct MCV MCH MCHC RDW Plt Count MPV Gran % Lymph % (Auto) [place] % (Auto) Eos % (Auto) Baso % (Auto) Gran # Lymph # [place] # Eos # Baso # pO2 VBG pH VBG pCO2 VBG HCO3 VBG Total CO2 VBG O2 Sat (Calc) VBG Base Excess VBG Potassium Sodium Chloride Glucose Lactate FiO2 Potassium Carbon Dioxide Anion Gap BUN Creatinine Est GFR ( Amer) Est GFR (Non-Af Amer) POC Glucose (mg/dL) 116 H Random Glucose Calcium Magnesium Total Bilirubin AST ALT Alkaline Phosphatase Troponin I Total Protein Albumin Globulin Albumin/Globulin Ratio Procalcitonin Venous Blood Potassium Stool Occult Blood RPR Nonreactive Hepatitis A IgM Ab Negative Hep Bs Antigen Negative Hep B Core IgM Ab Negative Hepatitis C Antibody Negative 04/30/17 04/30/17 04/30/17 03:10 03:10 03:10 WBC 27.3 H* RBC 3.36 L Hgb 11.2 L Hct 33.0 L MCV 98.2 MCH 33.3 MCHC 33.9 RDW 15.2 H Plt Count 149 MPV 10.5 Gran % Lymph % (Auto) [place] % (Auto) Eos % (Auto) Baso % (Auto) Gran # Lymph # [place] # Eos # Baso # pO2 VBG pH VBG pCO2 VBG HCO3 VBG Total CO2 VBG O2 Sat (Calc) VBG Base Excess VBG Potassium Sodium 140 Chloride 110 H Glucose Lactate FiO2 Potassium 4.5 Carbon Dioxide 16 L Anion Gap 19 BUN 75 H Creatinine 6.7 H Est GFR ( Amer) 10 Est GFR (Non-Af Amer) 8 POC Glucose (mg/dL) Random Glucose 99 Calcium 7.3 L Magnesium 2.0 Total Bilirubin 0.7 AST 36 ALT 33 Alkaline Phosphatase 67 Troponin I 0.22 H* Total Protein 6.4 Albumin 3.0 Globulin 3.4 Albumin/Globulin Ratio 0.9 L Procalcitonin 161.94 H Venous Blood Potassium Stool Occult Blood RPR Hepatitis A IgM Ab Hep Bs Antigen Hep B Core IgM Ab Hepatitis C Antibody 04/30/17 04/30/17 04/30/17 03:35 10:53 11:30 WBC RBC Hgb Hct MCV MCH MCHC RDW Plt Count MPV Gran % Lymph % (Auto) [place] % (Auto) Eos % (Auto) Baso % (Auto) Gran # Lymph # [place] # Eos # Baso # pO2 64 H VBG pH 7.36 VBG pCO2 32.0 L VBG HCO3 18.1 L VBG Total CO2 19.1 L VBG O2 Sat (Calc) 95.1 H VBG Base Excess -6.3 L VBG Potassium 4.6 Sodium 139.0 Chloride 110.0 H Glucose 104 Lactate 1.9 FiO2 21.0 Potassium Carbon Dioxide Anion Gap BUN Creatinine Est GFR ( Amer) Est GFR (Non-Af Amer) POC Glucose (mg/dL) 104 Random Glucose Calcium Magnesium Total Bilirubin AST ALT Alkaline Phosphatase Troponin I Total Protein Albumin Globulin Albumin/Globulin Ratio Procalcitonin Venous Blood Potassium 4.6 Stool Occult Blood Negative RPR Hepatitis A IgM Ab Hep Bs Antigen Hep B Core IgM Ab Hepatitis C Antibody Attending/Attestation - Attestation I have personally seen and examined this patient.: Yes I have fully participated in the care of the patient.: Yes I have reviewed all pertinent clinical information: Yes Notes (Text): 04/30/17 16:45 I have seen and examined patient with GI fellow and electromedical service engineer. Agree with above documentation with the following additions. In brief, this is a 71 year old male with history of HTN, HIV (last CD4 count 350 last year), CKD, prostate cancer who presents to hospital with complaint of increasing lethargy, altered mental status, and dark colored stool over the past 4 days. Patient describes generalized abdominal pain along with nausea but denies vomiting, fever/chills, weight loss, or change in bowel habits. He claims that his stool color is normal, however family reports patient having dark color bowel movements. He had an EGD/colonoscopy 4 months ago at which was normal according to patient. Family history: reviewed, patient denies history of GI malignancies Additional physical exam, abdomen: no palpable hepato/splenomegaly HTN HIV previously on HAART CKD History of prostate cancer Leukocytosis, sepsis CT imaging reviewed by me showing bilateral lisa-nephric stranding, obstructive uropathy Anemia - rectal exam performed today shows soft brown stool in rectal vault without presence of blood - Liquid diet as tolerated - H/H stable, continue to monitor - Continue with PPI therapy - Continue with antibiotic therapy as per ID, awaiting urine cultures - Obtain copies of recent endoscopic reports performed at recently - No indication for urgent endoscopic intervention at this time, will continue to monitor patient clinical course
[2017-04-30] MEDS: Morphine 2 mg/ml ISec IVP PRN ×2 (12:30→22:02)
[2017-04-30] MEDS: Albuterol-Ipratrop 3 mg / 0.5 (3 ml) UD IH PRN ×2 (12:37→21:50)
[2017-04-30] MEDS: Vancomycin 25 MG/ML PO SCH ×3 (13:30→22:18)
--- NOTE | 2017-04-30 13:34 | PN ---
SUBJECTIVE: He was in the intensive care unit. He is much more alert and oriented this morning. He is aware. His eyes are open. He was confused yesterday in the emergency room, so that is a good sign. He is asking some appropriate questions. No pain, just feels very weak. He is on Epivir, Merrem, Protonix, IV fluids, Tylenol, and Ziagen. PHYSICAL EXAMINATION: VITAL SIGNS: He has a 98.8 temp, it was as high as 103 when he came in; 86 pulse rate; 20 respiratory rate, it is down to at least 16 now; 97% O2 sat on oxygen. HEENT: His head is atraumatic and normocephalic. Throat is moist. NECK: Supple. HEART: Regular rate. LUNGS: Decreased breath sounds bilaterally but clear. ABDOMEN: Soft. EXTREMITIES: Trace edema. LABORATORY DATA: He has 27.3 white count; it has been going up steadily, 22, then 24, and now it is up to 27. Hemoglobin is 11.2, hematocrit 33, platelet 149. INR is 1.18. Last blood gas is 7.36. Lactate was as high as 5, it is down to 1.9. He has 140 sodium, potassium 4.5, BUN 75, creatinine 6.7, still very elevated. Sugar is 99, calcium is 7.3, magnesium 2, total bilirubin is 0.7. AST is 36, ALT is 33, alkaline phosphatase is 67. His troponin went up to 0.22 from 0.19, total protein is 6.4. Urine with many bacteria. He was seen by a resident. The patient has multiple issues, sepsis, GI bleed, urinary tract infection, acute kidney injury, and acute chronic injury. He is also HIV positive. Continue his aggressive treatment and care. We will check his labs. Continue aggressive IV antibiotics. Parag Brownlee DO
--- NOTE | 2017-04-30 13:52 | RAD ---
HISTORY: SOB COMPARISON: 04/29/2017 FINDINGS: LUNGS: No active pulmonary disease. PLEURA: No significant pleural effusion identified, no pneumothorax apparent. CARDIOVASCULAR: Mild cardiomegaly OSSEOUS STRUCTURES: No significant abnormalities. VISUALIZED UPPER ABDOMEN: Normal. OTHER FINDINGS: None. IMPRESSION: No active disease.
--- NOTE | 2017-04-30 14:36 | CP.PCM.CON ---
History of Present Illness - History of Present Illness History of Present Illness: Initial Nephrology Consultation: Assessment: critical Acute Kidney Injury (N17.9) likely due to sepsis, urine retention Hypertensive Chronic Kidney Disease (I12.9) Chronic Kidney Disease (N18.5) Stage 5 with ?mg proteinuria (R80.9) Anemia (D64.9), HTN (I12.9) gram neg sepsis, likely UTI/pyelonephritis bladder wall thickening, hx of prostate CA, lactic acidosis, NAGMA HIV on HAART, PVD Plan discussed dialysis with patient that he may need it soon. pt says No way, I will rather . he was explained about dialysis pros/cons, indications, risks/ benefits, he says will think about it but not ready yet. No emergent need for renal replacement therapy at this time but with his SOB today, portable CXR repeated. d/c IVF. if hemodynamics remain stable, consider diuresis with IV lasix 40 mg will add sodium bicarb Hypertension control with meds as ordered. Patient not on ACEI/ARB due to SUSY Monitor Input/Output, daily weights and renal function with basic metabolic panel Check urine spot protein/creatinine and albumin/creatinine ratio Dose meds/antibiotics for reduced GFR. Avoid fleets enema/magnesium based laxatives. Avoid nephrotoxins/NSAIDs/ iodinated contrast (unless needed emergently) Glycemic control Further work up/management as per primary team Thanks for allowing me to participate in care of your patient. Will follow patient with you. Please call if any Qs. d/w ICU and primary team. Dr Yandel Arechiga Office: [phone] Chief Complaint; pain abdomen reason for consult: elevated creatiine HPI: Pt is a 71 y/o M with hx of HIV on HAART, PVD s/p angioplasty, hypertension (10-15 years), CKD stage 4 to 5 (f/up at [facility]), left foot toe amputations, Ca prostate presented with complaints of pain in lower abdomen and back for 2 days. he was found to have gram neg sepsis. renal consulted for elevated Creatinine 6.7. his last labs in 2016 showed cr in 4 range. Denies chest pain, palpitation, leg swelling. had shortness of breath today Denies blood or bubbles in urine. but says he couldn't urinate for 1-2 days. hx of prostate cancer + Denies OTC/herbal meds or NSAIDs No recent iodinated contrast exposure. No obvious episodes of low BP. ROS: Constitutional Symptoms: had fever/chills, now better No Recent Weight Changes Eyes: denies change in vision, denies watery eyes, denies double vision Ears/Nose/Mouth/Throat: Denies Abnormal Taste. No Bad breath no Bad Taste. Cardiovascular: No chest pain. There is c/o shortness of breath. No palpitations. Pulmonary: c/o shortness of breath no cough. Gastrointestinal: c/o abdominal pain No nausea. No vomiting. Denies change in bowel habits. Genitourinary: reports that he couldn't urinate for 1-2 days. now has alcala catheter Neurological: Denies headaches. No dizziness. Denies loss of balance. Denies weakness, denies tingling/numbness Dermatological: No Rash or Bruising or ulcers. Psychiatric: Denies Anxiety. No depression. Denies hallucinations. Rheumatological: No joint pain. Denies Joint swelling except low back pain earlier Endocrine: Denies tiredness/Fatigue denies Heat/Cold Intolerance. All other negative Physical Examination: General Appearance: Comfortable, in no acute respiratory distress, co-operative . ill appearing, on Bipap Vitals reviewed and noted as below Head; Atraumatic, normocephalic ENT: no ulcers no thrush. Tongue is midline. Oropharynx: no rash or ulcers. EYES: Pupils are equal, round and reactive to light accommodation. Eye muscles and extraocular movement intact. Sclera is anicteric. Neck; supple no lymphadenopathy, no thyromegaly or bruit Lungs: Increased respiratory rate/effort. Breath sounds bilateral with basal crackles and wheezing Heart: Normal rate. s1s2 normal. No rub or gallop. Extremities: no edema. No varicose veins Neurological: Patient is alert, awake and oriented to person, place and time. No focal deficit. Strength bilateral appropriate and equal Skin: Warm and dry. Normal turgor. No rash. Palpitation: Normal elasticity for age Abdomen: Abdomen is soft. Bowel sounds +. There is mild lower abdominal tenderness, no guarding/rigidity no organomegaly Psych: normal insight and normal affect/mood MSK: no joint tenderness or swelling. Digits and nails normal, no deformity. back exam limited. has rt foot deformity noted. left foot toe amputations in past : kidney or bladder not palpable. has alcala Labs/imaging/EKG reviewed. Past medical history, past surgical history, family history, social history, allergy reviewed and noted as below Family hx: sister was on dialysis. Rest non-contributory Work up: CT: b/l adrenal thickening, bladder wall thickning, perinephric stranding UA 3+ protein with blood and many WBC/RBC, bacterias blood cx: Gram neg rods Hep B/C neg in 2016: Esperanza/lambda ratio normal, ANCA neg and normal complements Past Patient History - Infectious Disease Hx of Infectious Diseases: None - Tetanus Immunizations Tetanus Immunization: Up to Date - Past Medical History & Family History Past Medical History?: Yes - Past Social History Smoking Status: Never Smoked - CARDIAC Hx Cardiac Disorders: Yes Hx Hypertension: Yes - PULMONARY Hx Respiratory Disorders: No - NEUROLOGICAL Hx Neurological Disorder: No - HEENT Hx HEENT Problems: No - RENAL Hx Chronic Kidney Disease: No - ENDOCRINE/METABOLIC Hx Diabetes Mellitus Type 1: No Hx Diabetes Mellitus Type 2: No - HEMATOLOGICAL/ONCOLOGICAL Hx Blood Transfusions: No - INTEGUMENTARY Hx Dermatological Problems: Yes (CELLULITIS OF L ANKLE 8-6-16.AMPUTATED 1ST TOE LEFT FOOT.,I/D RT HAND ABCES) Other/Comment: Ulcer of second toe BL - MUSCULOSKELETAL/RHEUMATOLOGICAL Hx Musculoskeletal Disorders: Yes Hx Falls: No Hx Gout: Yes Hx Osteomyelitis: Yes (Left first toe) - GASTROINTESTINAL Hx Gastrointestinal Disorders: No - GENITOURINARY/GYNECOLOGICAL Hx Genitourinary Disorders: Yes Hx Prostate Cancer: Yes - PSYCHIATRIC Hx Psychophysiologic Disorder: No Hx Substance Use: No - SURGICAL HISTORY Hx Amputation: Yes (Left first toe) Other/Comment: prostatectomy, incision and drainage of right hand abscess - ANESTHESIA Hx Anesthesia Reactions: No Hx Malignant Hyperthermia: No Meds Allergies/Adverse Reactions: Allergies Allergy/AdvReac Type Severity Reaction Status Date / Time No Known Allergies Allergy Verified 04/29/17 17:01 - Medications Medications: Current Medications Abacavir Sulfate (Ziagen) 300 mg PO BID DWAIN Last Admin: 04/30/17 10:58 Dose: 300 mg Acetaminophen (Tylenol 325mg Tab) 650 mg PO Q4H PRN PRN Reason: Fever >100.4 F Last Admin: 04/30/17 11:59 Dose: 650 mg Albuterol/Ipratropium (Duoneb 3 Mg/0.5 Mg (3 Ml) Ud) 3 ml IH Q2H PRN PRN Reason: Shortness of Breath Last Admin: 04/30/17 12:37 Dose: 3 ml Meropenem 500 mg/ Sodium (Chloride) 100 mls @ 100 mls/hr IVPB Q12 DWAIN PRN Reason: Protocol Stop: 05/07/17 06:22 Last Admin: 04/30/17 07:30 Dose: 100 mls/hr Lamivudine (Epivir) 50 mg PO DAILY [facility] Last Admin: 04/30/17 10:56 Dose: 50 mg Morphine Sulfate (Morphine) 1 mg IVP Q3H PRN PRN Reason: Pain, moderate (4-7) Pantoprazole Sodium (Protonix Ec Tab) 40 mg PO 0600 DWAIN Vancomycin HCl (Vancocin 25 Mg/Ml (Oral Use)) 125 mg PO QID DWAIN PRN Reason: Protocol Results - Vital Signs Recent Vital Signs: Last Vital Signs Temp 98.8 F 04/30/17 06:59 Pulse 96 H 04/30/17 12:40 Resp 28 H 04/30/17 05:20 BP 139/80 04/30/17 05:00 Pulse Ox 97 04/30/17 05:20 - Labs Result Diagrams: 04/30/17 03:10 04/30/17 03:10 Labs: Laboratory Results - last 24 hr 04/29/17 04/30/17 04/30/17 22:00 00:20 00:20 WBC 24.5 H RBC 3.41 L Hgb 11.4 L Hct 33.4 L MCV 97.9 MCH 33.4 MCHC 34.1 RDW 15.0 H Plt Count 163 MPV 11.1 H Gran % 84.2 H Lymph % (Auto) 8.7 L Stearns % (Auto) 6.8 H Eos % (Auto) 0.2 L Baso % (Auto) 0.1 Gran # 20.59 H Lymph # 2.1 Stearns # 1.7 H Eos # 0.0 Baso # 0.03 pO2 63 H VBG pH 7.40 VBG pCO2 28.0 L VBG HCO3 17.3 L VBG Total CO2 18.2 L VBG O2 Sat (Calc) 94.7 H VBG Base Excess -6.1 L VBG Potassium 4.4 Sodium 138.0 Chloride 110.0 H Glucose 105 Lactate 2.0 FiO2 21.0 Potassium Carbon Dioxide Anion Gap BUN Creatinine Est GFR ( Amer) Est GFR (Non-Af Amer) POC Glucose (mg/dL) Random Glucose Calcium Magnesium Total Bilirubin AST ALT Alkaline Phosphatase Troponin I 0.19 H* D Total Protein Albumin Globulin Albumin/Globulin Ratio Procalcitonin Venous Blood Potassium 4.4 Stool Occult Blood Hepatitis A IgM Ab Hep Bs Antigen Hep B Core IgM Ab Hepatitis C Antibody 04/30/17 04/30/17 04/30/17 01:24 03:10 03:10 WBC RBC Hgb Hct MCV MCH MCHC RDW Plt Count MPV Gran % Lymph % (Auto) Stearns % (Auto) Eos % (Auto) Baso % (Auto) Gran # Lymph # Stearns # Eos # Baso # pO2 VBG pH VBG pCO2 VBG HCO3 VBG Total CO2 VBG O2 Sat (Calc) VBG Base Excess VBG Potassium Sodium Chloride Glucose Lactate FiO2 Potassium Carbon Dioxide Anion Gap BUN Creatinine Est GFR ( Amer) Est GFR (Non-Af Amer) POC Glucose (mg/dL) 116 H Random Glucose Calcium Magnesium Total Bilirubin AST ALT Alkaline Phosphatase Troponin I Total Protein Albumin Globulin Albumin/Globulin Ratio Procalcitonin 161.94 H Venous Blood Potassium Stool Occult Blood Hepatitis A IgM Ab Negative Hep Bs Antigen Negative Hep B Core IgM Ab Negative Hepatitis C Antibody Negative 04/30/17 04/30/17 04/30/17 03:10 03:10 03:35 WBC 27.3 H* RBC 3.36 L Hgb 11.2 L Hct 33.0 L MCV 98.2 MCH 33.3 MCHC 33.9 RDW 15.2 H Plt Count 149 MPV 10.5 Gran % Lymph % (Auto) Stearns % (Auto) Eos % (Auto) Baso % (Auto) Gran # Lymph # Stearns # Eos # Baso # pO2 64 H VBG pH 7.36 VBG pCO2 32.0 L VBG HCO3 18.1 L VBG Total CO2 19.1 L VBG O2 Sat (Calc) 95.1 H VBG Base Excess -6.3 L VBG Potassium 4.6 Sodium 140 139.0 Chloride 110 H 110.0 H Glucose 104 Lactate 1.9 FiO2 21.0 Potassium 4.5 Carbon Dioxide 16 L Anion Gap 19 BUN 75 H Creatinine 6.7 H Est GFR ( Amer) 10 Est GFR (Non-Af Amer) 8 POC Glucose (mg/dL) Random Glucose 99 Calcium 7.3 L Magnesium 2.0 Total Bilirubin 0.7 AST 36 ALT 33 Alkaline Phosphatase 67 Troponin I 0.22 H* Total Protein 6.4 Albumin 3.0 Globulin 3.4 Albumin/Globulin Ratio 0.9 L Procalcitonin Venous Blood Potassium 4.6 Stool Occult Blood Hepatitis A IgM Ab Hep Bs Antigen Hep B Core IgM Ab Hepatitis C Antibody 04/30/17 11:30 WBC RBC Hgb Hct MCV MCH MCHC RDW Plt Count MPV Gran % Lymph % (Auto) Stearns % (Auto) Eos % (Auto) Baso % (Auto) Gran # Lymph # Stearns # Eos # Baso # pO2 VBG pH VBG pCO2 VBG HCO3 VBG Total CO2 VBG O2 Sat (Calc) VBG Base Excess VBG Potassium Sodium Chloride Glucose Lactate FiO2 Potassium Carbon Dioxide Anion Gap BUN Creatinine Est GFR ( Amer) Est GFR (Non-Af Amer) POC Glucose (mg/dL) Random Glucose Calcium Magnesium Total Bilirubin AST ALT Alkaline Phosphatase Troponin I Total Protein Albumin Globulin Albumin/Globulin Ratio Procalcitonin Venous Blood Potassium Stool Occult Blood Negative Hepatitis A IgM Ab Hep Bs Antigen Hep B Core IgM Ab Hepatitis C Antibody
--- NOTE | 2017-04-30 15:16 | US ---
PROCEDURE: Ultrasound of the Kidneys HISTORY: r/o hydronephrosis COMPARISON: None available. TECHNIQUE: Sonogram of the kidneys. FINDINGS: RIGHT KIDNEY: Measures: 9.7 cm. Normal in size, contour and echogenicity. No stone, solid mass lesion or hydronephrosis visualized. LEFT KIDNEY: Measures: 9.7 cm. Normal in size, contour and echogenicity. No stone, solid mass lesion or hydronephrosis visualized. Two simple lower pole cortical cysts are identified measuring 6 mm and 10 mm in respective diameter. OTHER FINDINGS: None. IMPRESSION: Two simple cysts in the lower pole left kidney. No evidence of hydronephrosis. Otherwise unremarkable.
--- NOTE | 2017-04-30 15:43 | CP.CCUPN ---
<PRAVIN LOTT - Last Filed: 04/30/17 17:37> CCU Subjective - Physician Review Subjective (Free Text): 04/30/17 15:30 Patient seen and assessed at bedside. Patient reports no acute events overnight after his admission to the ICU. Patient has been afebrile since late last night. Patient endorses that he has abdominal pain that is "everywhere" and that hasn't resolved since his admission. Patient denies chills, headache, changes in his vision, dysphagia, chest pain, palpitations, shortness of breath , cough, N/V, hematemesis, diarrhea, any episodes of melena, constipation, burning with urination or any numbness/tingling/weakness of any extremity. CCU Objective - Vital Signs / Intake & Output Vital Signs (Last 4 hours): Vital Signs Pulse 04/30/17 12:40 96 H 04/30/17 12:39 96 H Intake and Output (Last 8hrs): Intake & Output 04/30/17 04/30/17 04/30/17 06:59 14:59 22:59 Intake Total 1740 Output Total 500 Balance 1240 Weight 170 lb Intake: IV 1740 Left Antecubital 540 Right Antecubital 1200 Output: Urine 500 Urethral (Augustin) 500 - Physical Exam Head: Positive for: Atraumatic, Normocephalic Pupils: Positive for: PERRL Extroacular Muscles: Positive for: EOMI Conjunctiva: Positive for: Normal Mouth: Positive for: Dry Pharnyx: Positive for: Normal. Negative for: ERYTHEMA Nose (Internal): Positive for: Normal Inspection Neck: Positive for: Normal Range of Motion, Trachea Midline. Negative for: Lymphadenopathy Respiratory/Chest: Positive for: Clear to Auscultation, Good Air Exchange. Negative for: Respiratory Distress, Accessory Muscle Use Cardiovascular: Positive for: Regular Rate and Rhythm, Normal S1, S2. Negative for: Murmurs Abdomen: Positive for: Tenderness (Diffuse tenderness with localization to the R flank and LLQ), Normal Bowel Sounds. Negative for: Distention, Peritoneal Signs, Rebound, Guarding, Feeding Tubes, Ostomy Tubes Rectal: Positive for: Other (chaperoned by EMT; dark brown stool with guaiac positve; no positive hemorrhoid) Back: Positive for: Normal Inspection, CVA Tenderness (R>L) Upper Extremity: Positive for: Normal Inspection. 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 Negative for: Rashes Psychiatric: Positive for: Alert, Oriented x 3, Other (confused ) - Medications Active Medications: Active Medications Generic Name Dose Route Start Last Admin Trade Name Freq PRN Reason Stop Dose Admin Abacavir Sulfate 300 mg 04/30/17 10:00 04/30/17 10:58 Ziagen PO 300 mg BID DWAIN Administration Acetaminophen 650 mg 04/29/17 22:29 04/30/17 11:59 Tylenol 325mg Tab PO 650 mg Q4H PRN Administration Fever >100.4 F Albuterol/Ipratropium 3 ml 04/30/17 12:21 04/30/17 12:37 Duoneb 3 Mg/0.5 Mg (3 Ml) Ud IH 3 ml Q2H PRN Administration Shortness of Breath Meropenem 500 mg/ Sodium 100 mls @ 100 mls/hr 04/30/17 06:21 04/30/17 07:30 Chloride IVPB 05/07/17 06:22 100 mls/hr Q12 DWAIN Administration Protocol Lamivudine 50 mg 04/30/17 10:00 04/30/17 10:56 Epivir PO 50 mg DAILY DWAIN Administration Morphine Sulfate 1 mg 04/30/17 12:09 Morphine IVP Q3H PRN Pain, moderate (4-7) Pantoprazole Sodium 40 mg 05/01/17 06:00 Protonix Ec Tab PO 0600 [facility] Sodium Bicarbonate 1,300 mg 04/30/17 18:00 Sodium Bicarbonate Tab PO BID DWAIN Vancomycin HCl 125 mg 04/30/17 14:00 Vancocin 25 Mg/Ml (Oral Use) PO QID [facility] Protocol - Patient Studies Lab Studies: Lab Studies 04/30/17 04/30/17 04/30/17 Range/Units 11:30 03:35 03:10 WBC 27.3 H* (4.5-11.0) 10^3/ul RBC 3.36 L (3.5-6.1) 10^6/uL Hgb 11.2 L (14.0-18.0) g/dL Hct 33.0 L (42.0-52.0) % MCV 98.2 (80.0-105.0) fl MCH 33.3 (25.0-35.0) pg MCHC 33.9 (31.0-37.0) g/dl RDW 15.2 H (11.5-14.5) % Plt Count 149 (120.0-450.0) 10^3/uL MPV 10.5 (7.0-11.0) fl Gran % (50.0-68.0) % Lymph % (Auto) (22.0-35.0) % [place] % (Auto) (1.0-6.0) % Eos % (Auto) (1.5-5.0) % Baso % (Auto) (0.0-3.0) % Gran # (1.4-6.5) Lymph # (1.2-3.4) [place] # (0.1-0.6) Eos # (0.0-0.7) Baso # (0.0-2.0) K/mm3 pO2 64 H (30-55) mm/Hg VBG pH 7.36 (7.32-7.43) VBG pCO2 32.0 L (40-60) VBG HCO3 18.1 L (21-28) mmol/l VBG Total CO2 19.1 L (22-28) mmol.L VBG O2 Sat (Calc) 95.1 H (40-65) % VBG Base Excess -6.3 L (0.0-2.0) mmol/L VBG Potassium 4.6 (3.6-5.2) mmol/L Sodium 139.0 (132-148) mmol/L Chloride 110.0 H (98-107) mmol/L Glucose 104 (75-110) mg/dl Lactate 1.9 (0.7-2.1) mmol/L FiO2 21.0 % Potassium (3.6-5.0) mmol/L Carbon Dioxide (21-33) mmol/L Anion Gap (10-20) BUN (7-21) mg/dL Creatinine (0.5-1.4) mg/dL Est GFR ( Amer) Est GFR (Non-Af Amer) POC Glucose (mg/dL) (65-110) mg/dL Random Glucose (70-110) mg/dL Calcium (8.4-10.5) mg/dL Magnesium (1.7-2.2) mg/dL Total Bilirubin (0.2-1.3) mg/dL AST (17-59) U/L ALT (7-56) U/L Alkaline Phosphatase (38-126) U/L Troponin I ng/mL Total Protein (5.8-8.3) g/dL Albumin (3.0-4.8) g/dL Globulin gm/dL Albumin/Globulin Ratio (1.1-1.8) Procalcitonin (0.19-0.49) NG/ML Venous Blood Potassium 4.6 (3.6-5.2) mmol/L Stool Occult Blood Negative (NEGATIVE) Hepatitis A IgM Ab (NEGATIVE) Hep Bs Antigen (NEGATIVE) Hep B Core IgM Ab (NEGATIVE) Hepatitis C Antibody (NEGATIVE) 04/30/17 04/30/17 04/30/17 Range/Units 03:10 03:10 03:10 WBC (4.5-11.0) 10^3/ul RBC (3.5-6.1) 10^6/uL Hgb (14.0-18.0) g/dL Hct (42.0-52.0) % MCV (80.0-105.0) fl MCH (25.0-35.0) pg MCHC (31.0-37.0) g/dl RDW (11.5-14.5) % Plt Count (120.0-450.0) 10^3/uL MPV (7.0-11.0) fl Gran % (50.0-68.0) % Lymph % (Auto) (22.0-35.0) % [place] % (Auto) (1.0-6.0) % Eos % (Auto) (1.5-5.0) % Baso % (Auto) (0.0-3.0) % Gran # (1.4-6.5) Lymph # (1.2-3.4) [place] # (0.1-0.6) Eos # (0.0-0.7) Baso # (0.0-2.0) K/mm3 pO2 (30-55) mm/Hg VBG pH (7.32-7.43) VBG pCO2 (40-60) VBG HCO3 (21-28) mmol/l VBG Total CO2 (22-28) mmol.L VBG O2 Sat (Calc) (40-65) % VBG Base Excess (0.0-2.0) mmol/L VBG Potassium (3.6-5.2) mmol/L Sodium 140 (132-148) mmol/L Chloride 110 H (98-107) mmol/L Glucose (75-110) mg/dl Lactate (0.7-2.1) mmol/L FiO2 % Potassium 4.5 (3.6-5.0) mmol/L Carbon Dioxide 16 L (21-33) mmol/L Anion Gap 19 (10-20) BUN 75 H (7-21) mg/dL Creatinine 6.7 H (0.5-1.4) mg/dL Est GFR ( Amer) 10 Est GFR (Non-Af Amer) 8 POC Glucose (mg/dL) (65-110) mg/dL Random Glucose 99 (70-110) mg/dL Calcium 7.3 L (8.4-10.5) mg/dL Magnesium 2.0 (1.7-2.2) mg/dL Total Bilirubin 0.7 (0.2-1.3) mg/dL AST 36 (17-59) U/L ALT 33 (7-56) U/L Alkaline Phosphatase 67 (38-126) U/L Troponin I 0.22 H* ng/mL Total Protein 6.4 (5.8-8.3) g/dL Albumin 3.0 (3.0-4.8) g/dL Globulin 3.4 gm/dL Albumin/Globulin Ratio 0.9 L (1.1-1.8) Procalcitonin 161.94 H (0.19-0.49) NG/ML Venous Blood Potassium (3.6-5.2) mmol/L Stool Occult Blood (NEGATIVE) Hepatitis A IgM Ab Negative (NEGATIVE) Hep Bs Antigen Negative (NEGATIVE) Hep B Core IgM Ab Negative (NEGATIVE) Hepatitis C Antibody Negative (NEGATIVE) 04/30/17 04/30/17 04/30/17 Range/Units 01:24 00:20 00:20 WBC 24.5 H (4.5-11.0) 10^3/ul RBC 3.41 L (3.5-6.1) 10^6/uL Hgb 11.4 L (14.0-18.0) g/dL Hct 33.4 L (42.0-52.0) % MCV 97.9 (80.0-105.0) fl MCH 33.4 (25.0-35.0) pg MCHC 34.1 (31.0-37.0) g/dl RDW 15.0 H (11.5-14.5) % Plt Count 163 (120.0-450.0) 10^3/uL MPV 11.1 H (7.0-11.0) fl Gran % 84.2 H (50.0-68.0) % Lymph % (Auto) 8.7 L (22.0-35.0) % [place] % (Auto) 6.8 H (1.0-6.0) % Eos % (Auto) 0.2 L (1.5-5.0) % Baso % (Auto) 0.1 (0.0-3.0) % Gran # 20.59 H (1.4-6.5) Lymph # 2.1 (1.2-3.4) [place] # 1.7 H (0.1-0.6) Eos # 0.0 (0.0-0.7) Baso # 0.03 (0.0-2.0) K/mm3 pO2 63 H (30-55) mm/Hg VBG pH 7.40 (7.32-7.43) VBG pCO2 28.0 L (40-60) VBG HCO3 17.3 L (21-28) mmol/l VBG Total CO2 18.2 L (22-28) mmol.L VBG O2 Sat (Calc) 94.7 H (40-65) % VBG Base Excess -6.1 L (0.0-2.0) mmol/L VBG Potassium 4.4 (3.6-5.2) mmol/L Sodium 138.0 (132-148) mmol/L Chloride 110.0 H (98-107) mmol/L Glucose 105 (75-110) mg/dl Lactate 2.0 (0.7-2.1) mmol/L FiO2 21.0 % Potassium (3.6-5.0) mmol/L Carbon Dioxide (21-33) mmol/L Anion Gap (10-20) BUN (7-21) mg/dL Creatinine (0.5-1.4) mg/dL Est GFR ( Amer) Est GFR (Non-Af Amer) POC Glucose (mg/dL) 116 H (65-110) mg/dL Random Glucose (70-110) mg/dL Calcium (8.4-10.5) mg/dL Magnesium (1.7-2.2) mg/dL Total Bilirubin (0.2-1.3) mg/dL AST (17-59) U/L ALT (7-56) U/L Alkaline Phosphatase (38-126) U/L Troponin I ng/mL Total Protein (5.8-8.3) g/dL Albumin (3.0-4.8) g/dL Globulin gm/dL Albumin/Globulin Ratio (1.1-1.8) Procalcitonin (0.19-0.49) NG/ML Venous Blood Potassium 4.4 (3.6-5.2) mmol/L Stool Occult Blood (NEGATIVE) Hepatitis A IgM Ab (NEGATIVE) Hep Bs Antigen (NEGATIVE) Hep B Core IgM Ab (NEGATIVE) Hepatitis C Antibody (NEGATIVE) 04/29/17 Range/Units 22:00 WBC (4.5-11.0) 10^3/ul RBC (3.5-6.1) 10^6/uL Hgb (14.0-18.0) g/dL Hct (42.0-52.0) % MCV (80.0-105.0) fl MCH (25.0-35.0) pg MCHC (31.0-37.0) g/dl RDW (11.5-14.5) % Plt Count (120.0-450.0) 10^3/uL MPV (7.0-11.0) fl Gran % (50.0-68.0) % Lymph % (Auto) (22.0-35.0) % [place] % (Auto) (1.0-6.0) % Eos % (Auto) (1.5-5.0) % Baso % (Auto) (0.0-3.0) % Gran # (1.4-6.5) Lymph # (1.2-3.4) [place] # (0.1-0.6) Eos # (0.0-0.7) Baso # (0.0-2.0) K/mm3 pO2 (30-55) mm/Hg VBG pH (7.32-7.43) VBG pCO2 (40-60) VBG HCO3 (21-28) mmol/l VBG Total CO2 (22-28) mmol.L VBG O2 Sat (Calc) (40-65) % VBG Base Excess (0.0-2.0) mmol/L VBG Potassium (3.6-5.2) mmol/L Sodium (132-148) mmol/L Chloride (98-107) mmol/L Glucose (75-110) mg/dl Lactate (0.7-2.1) mmol/L FiO2 % Potassium (3.6-5.0) mmol/L Carbon Dioxide (21-33) mmol/L Anion Gap (10-20) BUN (7-21) mg/dL Creatinine (0.5-1.4) mg/dL Est GFR ( Amer) Est GFR (Non-Af Amer) POC Glucose (mg/dL) (65-110) mg/dL Random Glucose (70-110) mg/dL Calcium (8.4-10.5) mg/dL Magnesium (1.7-2.2) mg/dL Total Bilirubin (0.2-1.3) mg/dL AST (17-59) U/L ALT (7-56) U/L Alkaline Phosphatase (38-126) U/L Troponin I 0.19 H* D ng/mL Total Protein (5.8-8.3) g/dL Albumin (3.0-4.8) g/dL Globulin gm/dL Albumin/Globulin Ratio (1.1-1.8) Procalcitonin (0.19-0.49) NG/ML Venous Blood Potassium (3.6-5.2) mmol/L Stool Occult Blood (NEGATIVE) Hepatitis A IgM Ab (NEGATIVE) Hep Bs Antigen (NEGATIVE) Hep B Core IgM Ab (NEGATIVE) Hepatitis C Antibody (NEGATIVE) Laboratory Results - last 24 hr 04/29/17 04/30/17 04/30/17 22:00 00:20 00:20 WBC 24.5 H RBC 3.41 L Hgb 11.4 L Hct 33.4 L MCV 97.9 MCH 33.4 MCHC 34.1 RDW 15.0 H Plt Count 163 MPV 11.1 H Gran % 84.2 H Lymph % (Auto) 8.7 L [place] % (Auto) 6.8 H Eos % (Auto) 0.2 L Baso % (Auto) 0.1 Gran # 20.59 H Lymph # 2.1 [place] # 1.7 H Eos # 0.0 Baso # 0.03 pO2 63 H VBG pH 7.40 VBG pCO2 28.0 L VBG HCO3 17.3 L VBG Total CO2 18.2 L VBG O2 Sat (Calc) 94.7 H VBG Base Excess -6.1 L VBG Potassium 4.4 Sodium 138.0 Chloride 110.0 H Glucose 105 Lactate 2.0 FiO2 21.0 Potassium Carbon Dioxide Anion Gap BUN Creatinine Est GFR ( Amer) Est GFR (Non-Af Amer) POC Glucose (mg/dL) Random Glucose Calcium Magnesium Total Bilirubin AST ALT Alkaline Phosphatase Troponin I 0.19 H* D Total Protein Albumin Globulin Albumin/Globulin Ratio Procalcitonin Venous Blood Potassium 4.4 Stool Occult Blood Hepatitis A IgM Ab Hep Bs Antigen Hep B Core IgM Ab Hepatitis C Antibody 04/30/17 04/30/17 04/30/17 01:24 03:10 03:10 WBC RBC Hgb Hct MCV MCH MCHC RDW Plt Count MPV Gran % Lymph % (Auto) [place] % (Auto) Eos % (Auto) Baso % (Auto) Gran # Lymph # [place] # Eos # Baso # pO2 VBG pH VBG pCO2 VBG HCO3 VBG Total CO2 VBG O2 Sat (Calc) VBG Base Excess VBG Potassium Sodium Chloride Glucose Lactate FiO2 Potassium Carbon Dioxide Anion Gap BUN Creatinine Est GFR ( Amer) Est GFR (Non-Af Amer) POC Glucose (mg/dL) 116 H Random Glucose Calcium Magnesium Total Bilirubin AST ALT Alkaline Phosphatase Troponin I Total Protein Albumin Globulin Albumin/Globulin Ratio Procalcitonin 161.94 H Venous Blood Potassium Stool Occult Blood Hepatitis A IgM Ab Negative Hep Bs Antigen Negative Hep B Core IgM Ab Negative Hepatitis C Antibody Negative 04/30/17 04/30/17 04/30/17 03:10 03:10 03:35 WBC 27.3 H* RBC 3.36 L Hgb 11.2 L Hct 33.0 L MCV 98.2 MCH 33.3 MCHC 33.9 RDW 15.2 H Plt Count 149 MPV 10.5 Gran % Lymph % (Auto) [place] % (Auto) Eos % (Auto) Baso % (Auto) Gran # Lymph # [place] # Eos # Baso # pO2 64 H VBG pH 7.36 VBG pCO2 32.0 L VBG HCO3 18.1 L VBG Total CO2 19.1 L VBG O2 Sat (Calc) 95.1 H VBG Base Excess -6.3 L VBG Potassium 4.6 Sodium 140 139.0 Chloride 110 H 110.0 H Glucose 104 Lactate 1.9 FiO2 21.0 Potassium 4.5 Carbon Dioxide 16 L Anion Gap 19 BUN 75 H Creatinine 6.7 H Est GFR ( Amer) 10 Est GFR (Non-Af Amer) 8 POC Glucose (mg/dL) Random Glucose 99 Calcium 7.3 L Magnesium 2.0 Total Bilirubin 0.7 AST 36 ALT 33 Alkaline Phosphatase 67 Troponin I 0.22 H* Total Protein 6.4 Albumin 3.0 Globulin 3.4 Albumin/Globulin Ratio 0.9 L Procalcitonin Venous Blood Potassium 4.6 Stool Occult Blood Hepatitis A IgM Ab Hep Bs Antigen Hep B Core IgM Ab Hepatitis C Antibody 04/30/17 11:30 WBC RBC Hgb Hct MCV MCH MCHC RDW Plt Count MPV Gran % Lymph % (Auto) [place] % (Auto) Eos % (Auto) Baso % (Auto) Gran # Lymph # [place] # Eos # Baso # pO2 VBG pH VBG pCO2 VBG HCO3 VBG Total CO2 VBG O2 Sat (Calc) VBG Base Excess VBG Potassium Sodium Chloride Glucose Lactate FiO2 Potassium Carbon Dioxide Anion Gap BUN Creatinine Est GFR ( Amer) Est GFR (Non-Af Amer) POC Glucose (mg/dL) Random Glucose Calcium Magnesium Total Bilirubin AST ALT Alkaline Phosphatase Troponin I Total Protein Albumin Globulin Albumin/Globulin Ratio Procalcitonin Venous Blood Potassium Stool Occult Blood Negative Hepatitis A IgM Ab Hep Bs Antigen Hep B Core IgM Ab Hepatitis C Antibody EKG/Cardiology Studies: Cardiology / EKG Studies 04/29/17 23:18 ELECTROCARDIOGRAM Stat Comment: Reason For Exam: Tachycardia PRE OP:: N Does Patient Have a Pacemaker?: No Fingerstick Blood Sugar Results: 116 Review of Systems - Review of Systems Review of Systems: Please refer to HPI Critical Care Progress Note - Prophylaxis GI Prophylaxis GI: PPI - Prophylaxis DVT Prophylaxis DVT: SCDs - Nutrition Nutrition: Nutrition Category Date Time Status Liquid Diet [DIET] Diets 04/30/17 Breakfast Ordered Assessment/Plan - Assessment and Plan (Free Text) Assessment: 71 year old male with a past medical history of HIV with care provided by Dr. Velásquez at [facility], CKD IV, Prostate Cancer (diagnosed 5 years ago s/p prostectomy/chemo/radiation), PVD with toe ulcerations, admitted to ICU for possible upper GI bleed likely from, and severe sepsis likely from pyelonephritis due to postobstructive etiology, demand ischemia of heart with mildly elevated troponin, SUSY on CKD with a creatinine of 6.7 from baseline 3.5 , and HAGMA from uremia and lactic acidosis. Patients AMS is clinically improving with a GCS of 15. Plan: Neuro: -CT head done on 04/29 showed atrophy, small vessel disease with no acute hemorrhage -GCS improved to 15 -Continue neurochecks Q4H Pulm: -Placed on BiPAP with settings as follows: IPAP-10 EPAP-5 FiO2-35% RR-14 - CT chest done on 04/29 showed no focal pneumonia, dependent atelectasis at the lung bases, cardiomegaly and atherosclerotic disease with mild aneurysmal dilatation the descending aorta -Chest X-Ray done on 04/30 showed no active pulmonary disease -Continue Duonebs Q2H PRN for wheezing Cardio: -EKG done on 04/29 showed atrial flutter with 2:1 AV conduction -ECHO pending -Noted mild elevations in serial troponins of 0.13, 0.19 and 0.22 likely due to demand ischemia [place] [id number] likely from fluid resuscitation -Cardiology consulted, all recommendations appreciated GI: -CT abdomen/pelvis done on 04/29 showed bilateral perinephric inflammation and fluid with pelvoureterectasis suggestive of obstructive uropathy, diverticulosis without definite findings of diverticulitis, fluid and inflammation in the left colic gutter adjacent to the left kidney which may be secondary to left renal/retroperitoneal disease, mild rectal wall thickening, possible proctitis, and mild ileus with no obstruction -Discontinue Protonix drip and start Protonix PO, per GI -Start clear liquid diet, will advance as tolerated -Currently showing no signs of GI bleed, with stable H/H and no reported melena or BRBPR -Will obtain medical records of most recent EGD/Colonoscopy from [facility], medical record release faxed -Continue Morphine 1mg IVP Q3H PRN for moderate pain -No indication for urgent endoscopic intervention at this time, per GI -GI consulted, all recommendations appreciated Renal: -See findings of CT abdomen/pelvis above -Renal U/S done on 04/30 showed two simple cysts in the lower pole left kidney and no evidence of hydronephrosis -BUN/Creatinine elevated at 75/6.7 with patients baseline creatinine at ~3.5, representing acute renal failure in the setting of CKD -UA showing large amount of blood and protein, small LE and 10-15 WBC's -Patient refusing to consider dialysis as a treatment option at this time, per nephrology -IVF discontinued and diuresis with IV Lasix 40mg IVP once -Start Sodium Bicarb 1300mg PO BID for NAGMA -Augustin in place with 800ml UOP over the past 24 hours -Continue strict I/O's -Nephrology and Urology consulted, all recommendations appreciated Endo: -Continue Accuchecks ACHS -Maintain euglycemia with BS between 140 and 180 Heme/Onc: -H/H currently stable at 11.2/33.0 -Platelets stable at 149 -Will consider transfusion when clinically indicated -Continue to monitor with daily CBC's ID: -Continue Merrem IVPB Q12 (Day 1) and Vancomycin 125mg PO QID (Day 1) -Blood, urine, MRSA cultures and complete infectious stool workup including C. Diff pending -Start Abacavir and Lamivudine but Dolutegravir should be taken by patient from his home supply, per ID -HIV viral load and CD4 count pending -Continue Tylenol 650mg PO Q4H PRN for fever -Procal pending -ID consulted, all recommendations appreciated GI Prophylaxis: Protonix DVT Prophylaxis: SCD's Disposition: Will continue to follow up consultation recommendations and pending studies to adjust clinical decision making. Continue ICU management for now. Patient seen and case discussed with attending, Dr. Washington. - Date & Time Date: 04/30/17 Time: 16:09 <Felix COLLADO,Faithpreston H - Last Filed: 04/30/17 18:20> CCU Objective - Vital Signs / Intake & Output Intake and Output (Last 8hrs): Intake & Output 04/30/17 04/30/17 04/30/17 06:59 14:59 22:59 Intake Total 1740 Output Total 500 Balance 1240 Weight 170 lb Intake: IV 1740 Left Antecubital 540 Right Antecubital 1200 Output: Urine 500 Urethral ([place]) 500 - Medications Active Medications: Active Medications Generic Name Dose Route Start Last Admin Trade Name Freq PRN Reason Stop Dose Admin Abacavir Sulfate 300 mg 04/30/17 10:00 04/30/17 10:58 Ziagen PO 300 mg BID DWAIN Administration Acetaminophen 650 mg 04/29/17 22:29 04/30/17 11:59 Tylenol 325mg Tab PO 650 mg Q4H PRN Administration Fever >100.4 F Albuterol/Ipratropium 3 ml 04/30/17 12:21 04/30/17 12:37 Duoneb 3 Mg/0.5 Mg (3 Ml) Ud IH 3 ml Q2H PRN Administration Shortness of Breath Meropenem 500 mg/ Sodium 100 mls @ 100 mls/hr 04/30/17 06:21 04/30/17 07:30 Chloride IVPB 05/07/17 06:22 100 mls/hr Q12 DWAIN Administration Protocol Lamivudine 50 mg 04/30/17 10:00 04/30/17 10:56 Epivir PO 50 mg DAILY DWAIN Administration Morphine Sulfate 1 mg 04/30/17 12:09 Morphine IVP Q3H PRN Pain, moderate (4-7) Pantoprazole Sodium 40 mg 05/01/17 06:00 Protonix Ec Tab PO 0600 DWAIN Sodium Bicarbonate 1,300 mg 04/30/17 18:00 Sodium Bicarbonate Tab PO BID DWAIN Vancomycin HCl 125 mg 04/30/17 14:00 04/30/17 13:30 Vancocin 25 Mg/Ml (Oral Use) PO 125 mg QID DWAIN Administration Protocol - Patient Studies Lab Studies: Lab Studies 04/30/17 04/30/17 04/30/17 Range/Units 11:30 10:53 03:35 WBC (4.5-11.0) 10^3/ul RBC (3.5-6.1) 10^6/uL Hgb (14.0-18.0) g/dL Hct (42.0-52.0) % MCV (80.0-105.0) fl MCH (25.0-35.0) pg MCHC (31.0-37.0) g/dl RDW (11.5-14.5) % Plt Count (120.0-450.0) 10^3/uL MPV (7.0-11.0) fl Gran % (50.0-68.0) % Lymph % (Auto) (22.0-35.0) % [place] % (Auto) (1.0-6.0) % Eos % (Auto) (1.5-5.0) % Baso % (Auto) (0.0-3.0) % Gran # (1.4-6.5) Lymph # (1.2-3.4) [place] # (0.1-0.6) Eos # (0.0-0.7) Baso # (0.0-2.0) K/mm3 pO2 64 H (30-55) mm/Hg VBG pH 7.36 (7.32-7.43) VBG pCO2 32.0 L (40-60) VBG HCO3 18.1 L (21-28) mmol/l VBG Total CO2 19.1 L (22-28) mmol.L VBG O2 Sat (Calc) 95.1 H (40-65) % VBG Base Excess -6.3 L (0.0-2.0) mmol/L VBG Potassium 4.6 (3.6-5.2) mmol/L Sodium 139.0 (132-148) mmol/L Chloride 110.0 H (98-107) mmol/L Glucose 104 (75-110) mg/dl Lactate 1.9 (0.7-2.1) mmol/L FiO2 21.0 % Potassium (3.6-5.0) mmol/L Carbon Dioxide (21-33) mmol/L Anion Gap (10-20) BUN (7-21) mg/dL Creatinine (0.5-1.4) mg/dL Est GFR ( Amer) Est GFR (Non-Af Amer) POC Glucose (mg/dL) 104 (65-110) mg/dL Random Glucose (70-110) mg/dL Calcium (8.4-10.5) mg/dL Magnesium (1.7-2.2) mg/dL Total Bilirubin (0.2-1.3) mg/dL AST (17-59) U/L ALT (7-56) U/L Alkaline Phosphatase (38-126) U/L Troponin I ng/mL Total Protein (5.8-8.3) g/dL Albumin (3.0-4.8) g/dL Globulin gm/dL Albumin/Globulin Ratio (1.1-1.8) Procalcitonin (0.19-0.49) NG/ML Venous Blood Potassium 4.6 (3.6-5.2) mmol/L Stool Occult Blood Negative (NEGATIVE) RPR (NONREACTIVE) Hepatitis A IgM Ab (NEGATIVE) Hep Bs Antigen (NEGATIVE) Hep B Core IgM Ab (NEGATIVE) Hepatitis C Antibody (NEGATIVE) 04/30/17 04/30/17 04/30/17 Range/Units 03:10 03:10 03:10 WBC 27.3 H* (4.5-11.0) 10^3/ul RBC 3.36 L (3.5-6.1) 10^6/uL Hgb 11.2 L (14.0-18.0) g/dL Hct 33.0 L (42.0-52.0) % MCV 98.2 (80.0-105.0) fl MCH 33.3 (25.0-35.0) pg MCHC 33.9 (31.0-37.0) g/dl RDW 15.2 H (11.5-14.5) % Plt Count 149 (120.0-450.0) 10^3/uL MPV 10.5 (7.0-11.0) fl Gran % (50.0-68.0) % Lymph % (Auto) (22.0-35.0) % [place] % (Auto) (1.0-6.0) % Eos % (Auto) (1.5-5.0) % Baso % (Auto) (0.0-3.0) % Gran # (1.4-6.5) Lymph # (1.2-3.4) [place] # (0.1-0.6) Eos # (0.0-0.7) Baso # (0.0-2.0) K/mm3 pO2 (30-55) mm/Hg VBG pH (7.32-7.43) VBG pCO2 (40-60) VBG HCO3 (21-28) mmol/l VBG Total CO2 (22-28) mmol.L VBG O2 Sat (Calc) (40-65) % VBG Base Excess (0.0-2.0) mmol/L VBG Potassium (3.6-5.2) mmol/L Sodium 140 (132-148) mmol/L Chloride 110 H (98-107) mmol/L Glucose (75-110) mg/dl Lactate (0.7-2.1) mmol/L FiO2 % Potassium 4.5 (3.6-5.0) mmol/L Carbon Dioxide 16 L (21-33) mmol/L Anion Gap 19 (10-20) BUN 75 H (7-21) mg/dL Creatinine 6.7 H (0.5-1.4) mg/dL Est GFR ( Amer) 10 Est GFR (Non-Af Amer) 8 POC Glucose (mg/dL) (65-110) mg/dL Random Glucose 99 (70-110) mg/dL Calcium 7.3 L (8.4-10.5) mg/dL Magnesium 2.0 (1.7-2.2) mg/dL Total Bilirubin 0.7 (0.2-1.3) mg/dL AST 36 (17-59) U/L ALT 33 (7-56) U/L Alkaline Phosphatase 67 (38-126) U/L Troponin I 0.22 H* ng/mL Total Protein 6.4 (5.8-8.3) g/dL Albumin 3.0 (3.0-4.8) g/dL Globulin 3.4 gm/dL Albumin/Globulin Ratio 0.9 L (1.1-1.8) Procalcitonin 161.94 H (0.19-0.49) NG/ML Venous Blood Potassium (3.6-5.2) mmol/L Stool Occult Blood (NEGATIVE) RPR (NONREACTIVE) Hepatitis A IgM Ab (NEGATIVE) Hep Bs Antigen (NEGATIVE) Hep B Core IgM Ab (NEGATIVE) Hepatitis C Antibody (NEGATIVE) 04/30/17 04/30/17 04/30/17 Range/Units 03:10 03:10 01:24 WBC (4.5-11.0) 10^3/ul RBC (3.5-6.1) 10^6/uL Hgb (14.0-18.0) g/dL Hct (42.0-52.0) % MCV (80.0-105.0) fl MCH (25.0-35.0) pg MCHC (31.0-37.0) g/dl RDW (11.5-14.5) % Plt Count (120.0-450.0) 10^3/uL MPV (7.0-11.0) fl Gran % (50.0-68.0) % Lymph % (Auto) (22.0-35.0) % [place] % (Auto) (1.0-6.0) % Eos % (Auto) (1.5-5.0) % Baso % (Auto) (0.0-3.0) % Gran # (1.4-6.5) Lymph # (1.2-3.4) [place] # (0.1-0.6) Eos # (0.0-0.7) Baso # (0.0-2.0) K/mm3 pO2 (30-55) mm/Hg VBG pH (7.32-7.43) VBG pCO2 (40-60) VBG HCO3 (21-28) mmol/l VBG Total CO2 (22-28) mmol.L VBG O2 Sat (Calc) (40-65) % VBG Base Excess (0.0-2.0) mmol/L VBG Potassium (3.6-5.2) mmol/L Sodium (132-148) mmol/L Chloride (98-107) mmol/L Glucose (75-110) mg/dl Lactate (0.7-2.1) mmol/L FiO2 % Potassium (3.6-5.0) mmol/L Carbon Dioxide (21-33) mmol/L Anion Gap (10-20) BUN (7-21) mg/dL Creatinine (0.5-1.4) mg/dL Est GFR ( Amer) Est GFR (Non-Af Amer) POC Glucose (mg/dL) 116 H (65-110) mg/dL Random Glucose (70-110) mg/dL Calcium (8.4-10.5) mg/dL Magnesium (1.7-2.2) mg/dL Total Bilirubin (0.2-1.3) mg/dL AST (17-59) U/L ALT (7-56) U/L Alkaline Phosphatase (38-126) U/L Troponin I ng/mL Total Protein (5.8-8.3) g/dL Albumin (3.0-4.8) g/dL Globulin gm/dL Albumin/Globulin Ratio (1.1-1.8) Procalcitonin (0.19-0.49) NG/ML Venous Blood Potassium (3.6-5.2) mmol/L Stool Occult Blood (NEGATIVE) RPR Nonreactive (NONREACTIVE) Hepatitis A IgM Ab Negative (NEGATIVE) Hep Bs Antigen Negative (NEGATIVE) Hep B Core IgM Ab Negative (NEGATIVE) Hepatitis C Antibody Negative (NEGATIVE) 04/30/17 04/30/17 04/29/17 Range/Units 00:20 00:20 22:00 WBC 24.5 H (4.5-11.0) 10^3/ul RBC 3.41 L (3.5-6.1) 10^6/uL Hgb 11.4 L (14.0-18.0) g/dL Hct 33.4 L (42.0-52.0) % MCV 97.9 (80.0-105.0) fl MCH 33.4 (25.0-35.0) pg MCHC 34.1 (31.0-37.0) g/dl RDW 15.0 H (11.5-14.5) % Plt Count 163 (120.0-450.0) 10^3/uL MPV 11.1 H (7.0-11.0) fl Gran % 84.2 H (50.0-68.0) % Lymph % (Auto) 8.7 L (22.0-35.0) % [place] % (Auto) 6.8 H (1.0-6.0) % Eos % (Auto) 0.2 L (1.5-5.0) % Baso % (Auto) 0.1 (0.0-3.0) % Gran # 20.59 H (1.4-6.5) Lymph # 2.1 (1.2-3.4) [place] # 1.7 H (0.1-0.6) Eos # 0.0 (0.0-0.7) Baso # 0.03 (0.0-2.0) K/mm3 pO2 63 H (30-55) mm/Hg VBG pH 7.40 (7.32-7.43) VBG pCO2 28.0 L (40-60) VBG HCO3 17.3 L (21-28) mmol/l VBG Total CO2 18.2 L (22-28) mmol.L VBG O2 Sat (Calc) 94.7 H (40-65) % VBG Base Excess -6.1 L (0.0-2.0) mmol/L VBG Potassium 4.4 (3.6-5.2) mmol/L Sodium 138.0 (132-148) mmol/L Chloride 110.0 H (98-107) mmol/L Glucose 105 (75-110) mg/dl Lactate 2.0 (0.7-2.1) mmol/L FiO2 21.0 % Potassium (3.6-5.0) mmol/L Carbon Dioxide (21-33) mmol/L Anion Gap (10-20) BUN (7-21) mg/dL Creatinine (0.5-1.4) mg/dL Est GFR ( Amer) Est GFR (Non-Af Amer) POC Glucose (mg/dL) (65-110) mg/dL Random Glucose (70-110) mg/dL Calcium (8.4-10.5) mg/dL Magnesium (1.7-2.2) mg/dL Total Bilirubin (0.2-1.3) mg/dL AST (17-59) U/L ALT (7-56) U/L Alkaline Phosphatase (38-126) U/L Troponin I 0.19 H* D ng/mL Total Protein (5.8-8.3) g/dL Albumin (3.0-4.8) g/dL Globulin gm/dL Albumin/Globulin Ratio (1.1-1.8) Procalcitonin (0.19-0.49) NG/ML Venous Blood Potassium 4.4 (3.6-5.2) mmol/L Stool Occult Blood (NEGATIVE) RPR (NONREACTIVE) Hepatitis A IgM Ab (NEGATIVE) Hep Bs Antigen (NEGATIVE) Hep B Core IgM Ab (NEGATIVE) Hepatitis C Antibody (NEGATIVE) Laboratory Results - last 24 hr 04/29/17 04/30/17 04/30/17 22:00 00:20 00:20 WBC 24.5 H RBC 3.41 L Hgb 11.4 L Hct 33.4 L MCV 97.9 MCH 33.4 MCHC 34.1 RDW 15.0 H Plt Count 163 MPV 11.1 H Gran % 84.2 H Lymph % (Auto) 8.7 L [place] % (Auto) 6.8 H Eos % (Auto) 0.2 L Baso % (Auto) 0.1 Gran # 20.59 H Lymph # 2.1 [place] # 1.7 H Eos # 0.0 Baso # 0.03 pO2 63 H VBG pH 7.40 VBG pCO2 28.0 L VBG HCO3 17.3 L VBG Total CO2 18.2 L VBG O2 Sat (Calc) 94.7 H VBG Base Excess -6.1 L VBG Potassium 4.4 Sodium 138.0 Chloride 110.0 H Glucose 105 Lactate 2.0 FiO2 21.0 Potassium Carbon Dioxide Anion Gap BUN Creatinine Est GFR ( Amer) Est GFR (Non-Af Amer) POC Glucose (mg/dL) Random Glucose Calcium Magnesium Total Bilirubin AST ALT Alkaline Phosphatase Troponin I 0.19 H* D Total Protein Albumin Globulin Albumin/Globulin Ratio Procalcitonin Venous Blood Potassium 4.4 Stool Occult Blood RPR Hepatitis A IgM Ab Hep Bs Antigen Hep B Core IgM Ab Hepatitis C Antibody 04/30/17 04/30/17 04/30/17 01:24 03:10 03:10 WBC RBC Hgb Hct MCV MCH MCHC RDW Plt Count MPV Gran % Lymph % (Auto) [place] % (Auto) Eos % (Auto) Baso % (Auto) Gran # Lymph # [place] # Eos # Baso # pO2 VBG pH VBG pCO2 VBG HCO3 VBG Total CO2 VBG O2 Sat (Calc) VBG Base Excess VBG Potassium Sodium Chloride Glucose Lactate FiO2 Potassium Carbon Dioxide Anion Gap BUN Creatinine Est GFR ( Amer) Est GFR (Non-Af Amer) POC Glucose (mg/dL) 116 H Random Glucose Calcium Magnesium Total Bilirubin AST ALT Alkaline Phosphatase Troponin I Total Protein Albumin Globulin Albumin/Globulin Ratio Procalcitonin Venous Blood Potassium Stool Occult Blood RPR Nonreactive Hepatitis A IgM Ab Negative Hep Bs Antigen Negative Hep B Core IgM Ab Negative Hepatitis C Antibody Negative 04/30/17 04/30/17 04/30/17 03:10 03:10 03:10 WBC 27.3 H* RBC 3.36 L Hgb 11.2 L Hct 33.0 L MCV 98.2 MCH 33.3 MCHC 33.9 RDW 15.2 H Plt Count 149 MPV 10.5 Gran % Lymph % (Auto) [place] % (Auto) Eos % (Auto) Baso % (Auto) Gran # Lymph # [place] # Eos # Baso # pO2 VBG pH VBG pCO2 VBG HCO3 VBG Total CO2 VBG O2 Sat (Calc) VBG Base Excess VBG Potassium Sodium 140 Chloride 110 H Glucose Lactate FiO2 Potassium 4.5 Carbon Dioxide 16 L Anion Gap 19 BUN 75 H Creatinine 6.7 H Est GFR ( Amer) 10 Est GFR (Non-Af Amer) 8 POC Glucose (mg/dL) Random Glucose 99 Calcium 7.3 L Magnesium 2.0 Total Bilirubin 0.7 AST 36 ALT 33 Alkaline Phosphatase 67 Troponin I 0.22 H* Total Protein 6.4 Albumin 3.0 Globulin 3.4 Albumin/Globulin Ratio 0.9 L Procalcitonin 161.94 H Venous Blood Potassium Stool Occult Blood RPR Hepatitis A IgM Ab Hep Bs Antigen Hep B Core IgM Ab Hepatitis C Antibody 04/30/17 04/30/17 04/30/17 03:35 10:53 11:30 WBC RBC Hgb Hct MCV MCH MCHC RDW Plt Count MPV Gran % Lymph % (Auto) [place] % (Auto) Eos % (Auto) Baso % (Auto) Gran # Lymph # [place] # Eos # Baso # pO2 64 H VBG pH 7.36 VBG pCO2 32.0 L VBG HCO3 18.1 L VBG Total CO2 19.1 L VBG O2 Sat (Calc) 95.1 H VBG Base Excess -6.3 L VBG Potassium 4.6 Sodium 139.0 Chloride 110.0 H Glucose 104 Lactate 1.9 FiO2 21.0 Potassium Carbon Dioxide Anion Gap BUN Creatinine Est GFR ( Amer) Est GFR (Non-Af Amer) POC Glucose (mg/dL) 104 Random Glucose Calcium Magnesium Total Bilirubin AST ALT Alkaline Phosphatase Troponin I Total Protein Albumin Globulin Albumin/Globulin Ratio Procalcitonin Venous Blood Potassium 4.6 Stool Occult Blood Negative RPR Hepatitis A IgM Ab Hep Bs Antigen Hep B Core IgM Ab Hepatitis C Antibody EKG/Cardiology Studies: Cardiology / EKG Studies 04/29/17 23:18 ELECTROCARDIOGRAM Stat Comment: Reason For Exam: Tachycardia PRE OP:: N Does Patient Have a Pacemaker?: No Critical Care Progress Note - Nutrition Nutrition: Nutrition Category Date Time Status Liquid Diet [DIET] Diets 04/30/17 Breakfast Ordered Attending/Attestation - Attestation I have personally seen and examined this patient.: Yes I have fully participated in the care of the patient.: Yes I have reviewed all pertinent clinical information: Yes Notes (Text): 04/30/17 18:16 71 y/o M w/ AIDS admitted for Sepsis On abx for multiple potential sources. Primary source likely urine/ R hydro/ Pyelonephritis . Urology consult pending. Blood and urine cx pending. SOB tachypnea improved after nebulizers and brief use of BIPAP. CXR clear. Stool cx and other opportunistic dz work-up pending. HIV medications restarted per ID dvt p PPi cc time 45 min
--- NOTE | 2017-04-30 17:06 | CARD ---
APPROVED REPORT EXAM: Two-dimensional and M-mode echocardiogram with Doppler and color Doppler. INDICATION SEPSIS 2D DIMENSIONS Left Atrium (2D)5.1 (1.6-4.0cm)IVSd1.4 (0.7-1.1cm) LVDd4.5 (3.9-5.9cm)LVOT Diameter2.1 (1.8-2.4cm) PWd1.4 (0.7-1.1cm)LVDs3.2 (2.5-4.0cm) FS (%) 29.2 %LVEF (%)56.3 (>50%) M-Mode DIMENSIONS Aortic Root3.40 (2.2-3.7cm)Aortic Cusp Exc.1.40 (1.5-2.0cm) Aortic Valve AoV Peak Eaxbrvrg020.0cm/Nathan Peak GR.21mmHgLVOT Peak Cppdnoxs487.0cm/s LVOT VTI21.40cmAVA (VMAX)1.60nl1BP P 1/2 Oieg122im Mitral Valve MV E Tjaafgqw581.0cm/sMV A Shmngsxs769.0cm/sE/A ratio0.9 TDI Lateral E' Peak V10.00cm/sMedial E' Peak V10.30cm/sE/Lateral E'11.9 E/Medial E'11.6 Pulmonary Valve PV Peak Chnrctbo46.7cm/sPV Peak Grad.3mmHg Tricuspid Valve TR Peak Isaduegk719ar/sRAP [id number] Peak Gr.44mmHg SAIR32zdGs LEFT VENTRICLE The left ventricle is normal size. There is mild concentric left ventricular hypertrophy. The left ventricular function is normal. The left ventricular ejection fraction is within the normal range. There is normal LV segmental wall motion. Transmitral Doppler flow pattern is Grade I-abnormal relaxation pattern. RIGHT VENTRICLE The right ventricle is normal size. There is normal right ventricular wall thickness. The right ventricular systolic function is normal. ATRIA The left atrium is moderately dilated. The right atrium is mildly dilated. AORTIC VALVE The aortic valve is mildly thickened. There is moderate aortic regurgitation. MITRAL VALVE The mitral valve is mildly thickened. Mitral regurgitation is moderate. TRICUSPID VALVE There is moderate pulmonary hypertension. GREAT VESSELS The aortic root is normal in size. The IVC is normal in size and collapses >50% with inspiration. <Conclusion> The left ventricle is normal size. There is mild concentric left ventricular hypertrophy. The left ventricular function is normal. The left ventricular ejection fraction is within the normal range. There is normal LV segmental wall motion. Transmitral Doppler flow pattern is Grade I-abnormal relaxation pattern. There is moderate aortic regurgitation. Mitral regurgitation is moderate. There is moderate pulmonary hypertension.
--- NOTE | 2017-04-30 17:18 | CARD ---
APPROVED REPORT EKG Measurement Heart [id number] <Conclusion> Poor data quality, interpretation may be adversely affected Sinus tachycardia Possible Left atrial enlargement Nonspecific T wave abnormality Abnormal ECG
--- NOTE | 2017-04-30 17:21 | CARD ---
APPROVED REPORT EKG Measurement Heart [id number] <Conclusion> Sinus Tachycardia Abnormal ECG
--- NOTE | 2017-04-30 20:05 | CON ---
DATE: 04/30/2017 HISTORY The patient is a 71-year-old male who presents with lethargy. There was a questionable witnessed tarry stools seen by the family. PAST MEDICAL HISTORY The patient's past medical history is notable for history of HIV. He suffers from end-stage renal disease. No other history is obtainable from the patient. The rest of the history is from the chart. PHYSICAL EXAMINATION GENERAL: The patient is in bed, lethargic. VITAL SIGNS: Blood pressure 139/80, heart rate in the 80s with normal sinus rhythm with PVCs. NECK: Negative JVD. LUNGS: Decreased breath sounds. HEART: Reveal S1 and S2. EXTREMITIES: Without change. DIAGNOSTIC DATA EKG shows normal sinus rhythm with nonspecific ST-T changes. LABORATORY The troponin is 0.22, BUN and creatinine 75 and 6.7, hemoglobin is 11.2 with a white count is up to 27,000. IMPRESSION 1. Lethargy. 2. Renal failure. 3. Anemia. 4. Need to rule out sepsis. 5. History of human immunodeficiency virus. 6. Renal insufficiency. 7. Marked anemia. PLAN Given these findings, looked is likely troponin is more likely due to his abnormal kidney function and representing Non-STEMI. We will obtain an echocardiogram to evaluate his LV function. Emmanuel Weller MD
--- NOTE | 2017-04-30 23:27 | PCM.URO ---
Urology Progress Note - Subjective Abdominal Pain: Yes (llq) - Objective Lab Studies: Reviewed (ct,us plans: antibiotis, icu monitoring) Lab Results Last 24 Hours: Laboratory Results - last 24 hr 04/30/17 04/30/17 04/30/17 00:20 00:20 01:24 WBC 24.5 H RBC 3.41 L Hgb 11.4 L Hct 33.4 L MCV 97.9 MCH 33.4 MCHC 34.1 RDW 15.0 H Plt Count 163 MPV 11.1 H Gran % 84.2 H Lymph % (Auto) 8.7 L [place] % (Auto) 6.8 H Eos % (Auto) 0.2 L Baso % (Auto) 0.1 Gran # 20.59 H Lymph # 2.1 [place] # 1.7 H Eos # 0.0 Baso # 0.03 pO2 63 H VBG pH 7.40 VBG pCO2 28.0 L VBG HCO3 17.3 L VBG Total CO2 18.2 L VBG O2 Sat (Calc) 94.7 H VBG Base Excess -6.1 L VBG Potassium 4.4 Sodium 138.0 Chloride 110.0 H Glucose 105 Lactate 2.0 FiO2 21.0 Potassium Carbon Dioxide Anion Gap BUN Creatinine Est GFR ( Amer) Est GFR (Non-Af Amer) POC Glucose (mg/dL) 116 H Random Glucose Calcium Magnesium Total Bilirubin AST ALT Alkaline Phosphatase Troponin I Total Protein Albumin Globulin Albumin/Globulin Ratio Procalcitonin Venous Blood Potassium 4.4 Stool Occult Blood RPR Hepatitis A IgM Ab Hep Bs Antigen Hep B Core IgM Ab Hepatitis C Antibody 04/30/17 04/30/17 04/30/17 03:10 03:10 03:10 WBC RBC Hgb Hct MCV MCH MCHC RDW Plt Count MPV Gran % Lymph % (Auto) [place] % (Auto) Eos % (Auto) Baso % (Auto) Gran # Lymph # [place] # Eos # Baso # pO2 VBG pH VBG pCO2 VBG HCO3 VBG Total CO2 VBG O2 Sat (Calc) VBG Base Excess VBG Potassium Sodium Chloride Glucose Lactate FiO2 Potassium Carbon Dioxide Anion Gap BUN Creatinine Est GFR ( Amer) Est GFR (Non-Af Amer) POC Glucose (mg/dL) Random Glucose Calcium Magnesium Total Bilirubin AST ALT Alkaline Phosphatase Troponin I Total Protein Albumin Globulin Albumin/Globulin Ratio Procalcitonin 161.94 H Venous Blood Potassium Stool Occult Blood RPR Nonreactive Hepatitis A IgM Ab Negative Hep Bs Antigen Negative Hep B Core IgM Ab Negative Hepatitis C Antibody Negative 04/30/17 04/30/17 04/30/17 03:10 03:10 03:35 WBC 27.3 H* RBC 3.36 L Hgb 11.2 L Hct 33.0 L MCV 98.2 MCH 33.3 MCHC 33.9 RDW 15.2 H Plt Count 149 MPV 10.5 Gran % Lymph % (Auto) [place] % (Auto) Eos % (Auto) Baso % (Auto) Gran # Lymph # [place] # Eos # Baso # pO2 64 H VBG pH 7.36 VBG pCO2 32.0 L VBG HCO3 18.1 L VBG Total CO2 19.1 L VBG O2 Sat (Calc) 95.1 H VBG Base Excess -6.3 L VBG Potassium 4.6 Sodium 140 139.0 Chloride 110 H 110.0 H Glucose 104 Lactate 1.9 FiO2 21.0 Potassium 4.5 Carbon Dioxide 16 L Anion Gap 19 BUN 75 H Creatinine 6.7 H Est GFR ( Amer) 10 Est GFR (Non-Af Amer) 8 POC Glucose (mg/dL) Random Glucose 99 Calcium 7.3 L Magnesium 2.0 Total Bilirubin 0.7 AST 36 ALT 33 Alkaline Phosphatase 67 Troponin I 0.22 H* Total Protein 6.4 Albumin 3.0 Globulin 3.4 Albumin/Globulin Ratio 0.9 L Procalcitonin Venous Blood Potassium 4.6 Stool Occult Blood RPR Hepatitis A IgM Ab Hep Bs Antigen Hep B Core IgM Ab Hepatitis C Antibody 04/30/17 04/30/17 04/30/17 10:53 11:30 21:51 WBC RBC Hgb Hct MCV MCH MCHC RDW Plt Count MPV Gran % Lymph % (Auto) [place] % (Auto) Eos % (Auto) Baso % (Auto) Gran # Lymph # [place] # Eos # Baso # pO2 VBG pH VBG pCO2 VBG HCO3 VBG Total CO2 VBG O2 Sat (Calc) VBG Base Excess VBG Potassium Sodium Chloride Glucose Lactate FiO2 Potassium Carbon Dioxide Anion Gap BUN Creatinine Est GFR ( Amer) Est GFR (Non-Af Amer) POC Glucose (mg/dL) 104 89 Random Glucose Calcium Magnesium Total Bilirubin AST ALT Alkaline Phosphatase Troponin I Total Protein Albumin Globulin Albumin/Globulin Ratio Procalcitonin Venous Blood Potassium Stool Occult Blood Negative RPR Hepatitis A IgM Ab Hep Bs Antigen Hep B Core IgM Ab Hepatitis C Antibody Intake & Output: Intake & Output 04/30/17 04/30/17 05/01/17 06:59 18:59 06:59 Intake Total 1740 1985 Output Total 500 500 Balance 1240 1485 Weight 170 lb 170 lb Intake: IV 1740 1265 Left Antecubital 540 180 Right Antecubital 1200 1085 Oral 720 Output: Urine 500 500 Urethral ([place]) 500 500 Other: Voiding Method Indwelling Catheter Indwelling Catheter # Bowel Movements 5 Vital Signs: Vital Signs - 24 hr 04/29/17 04/29/17 04/29/17 23:30 23:40 23:50 Temperature Pulse Rate 114 H 114 H 111 H Respiratory 59 H 35 H 43 H Rate Blood Pressure O2 Sat by Pulse 97 99 98 Oximetry 04/30/17 04/30/17 04/30/17 00:00 00:10 00:20 Temperature 101.7 F H 101.7 F H Pulse Rate 111 H 106 H 109 H Respiratory 30 H 47 H 47 H Rate Blood Pressure 126/79 O2 Sat by Pulse 96 96 97 Oximetry 04/30/17 04/30/17 04/30/17 00:30 00:40 00:50 Temperature Pulse Rate 108 H 108 H 107 H Respiratory 45 H 33 H 35 H Rate Blood Pressure O2 Sat by Pulse 96 97 97 Oximetry 04/30/17 04/30/17 04/30/17 01:00 01:01 01:10 Temperature Pulse Rate 111 H 108 H 106 H Respiratory 37 H 39 H Rate Blood Pressure 139/75 O2 Sat by Pulse 96 97 96 Oximetry 04/30/17 04/30/17 04/30/17 01:20 01:30 01:40 Temperature Pulse Rate 104 H 102 H 103 H Respiratory 37 H 38 H 29 H Rate Blood Pressure O2 Sat by Pulse 96 96 96 Oximetry 04/30/17 04/30/17 04/30/17 01:50 02:00 02:10 Temperature Pulse Rate 102 H 105 H 104 H Respiratory 34 H 35 H 35 H Rate Blood Pressure 120/66 O2 Sat by Pulse 96 96 97 Oximetry 04/30/17 04/30/17 04/30/17 02:20 02:30 02:40 Temperature Pulse Rate 103 H 104 H 102 H Respiratory 34 H 36 H 39 H Rate Blood Pressure O2 Sat by Pulse 97 98 96 Oximetry 04/30/17 04/30/17 04/30/17 02:50 03:00 03:10 Temperature 99.6 F Pulse Rate 98 H 100 H 93 H Respiratory 31 H 45 H 33 H Rate Blood Pressure 128/76 O2 Sat by Pulse 97 98 97 Oximetry 04/30/17 04/30/17 04/30/17 03:20 03:30 03:40 Temperature Pulse Rate 97 H 92 H 94 H Respiratory 40 H 30 H 29 H Rate Blood Pressure O2 Sat by Pulse 98 97 98 Oximetry 04/30/17 04/30/17 04/30/17 03:50 04:00 04:10 Temperature Pulse Rate 94 H 95 H 95 H Respiratory 27 H 27 H 28 H Rate Blood Pressure 134/81 O2 Sat by Pulse 98 96 96 Oximetry 04/30/17 04/30/17 04/30/17 04:20 04:30 04:40 Temperature Pulse Rate 92 H 90 90 Respiratory 26 H 25 H 27 H Rate Blood Pressure O2 Sat by Pulse 98 98 98 Oximetry 04/30/17 04/30/17 04/30/17 04:50 05:00 05:09 Temperature Pulse Rate 92 H 92 H 91 H Respiratory 23 39 H Rate Blood Pressure 139/80 O2 Sat by Pulse 97 98 Oximetry 04/30/17 04/30/17 04/30/17 05:10 05:20 06:00 Temperature Pulse Rate 87 88 86 Respiratory 26 H 28 H Rate Blood Pressure O2 Sat by Pulse 97 97 Oximetry 04/30/17 04/30/17 04/30/17 06:59 08:00 09:09 Temperature 98.8 F Pulse Rate 96 H 98 H Respiratory Rate Blood Pressure O2 Sat by Pulse Oximetry 04/30/17 04/30/17 04/30/17 10:00 12:39 12:40 Temperature Pulse Rate 98 H 96 H 96 H Respiratory Rate Blood Pressure O2 Sat by Pulse Oximetry 04/30/17 04/30/17 04/30/17 13:00 13:40 13:50 Temperature Pulse Rate 84 99 H 98 H Respiratory 17 32 H Rate Blood Pressure O2 Sat by Pulse 96 100 Oximetry 04/30/17 04/30/17 04/30/17 14:00 14:10 14:20 Temperature Pulse Rate 97 H 99 H 96 H Respiratory 48 H 37 H 44 H Rate Blood Pressure 149/77 O2 Sat by Pulse 97 96 97 Oximetry 04/30/17 04/30/17 04/30/17 14:30 14:40 14:50 Temperature Pulse Rate 98 H 101 H 95 H Respiratory 34 H 45 H 14 Rate Blood Pressure O2 Sat by Pulse 96 99 95 Oximetry 04/30/17 04/30/17 04/30/17 15:00 15:10 15:20 Temperature Pulse Rate 93 H 90 93 H Respiratory 27 H 26 H 26 H Rate Blood Pressure 146/70 O2 Sat by Pulse 92 L 91 L 91 L Oximetry 04/30/17 04/30/17 04/30/17 15:30 15:40 15:50 Temperature Pulse Rate 101 H 97 H 94 H Respiratory 35 H 35 H 44 H Rate Blood Pressure O2 Sat by Pulse 96 96 96 Oximetry 04/30/17 04/30/17 04/30/17 16:00 16:10 16:20 Temperature Pulse Rate 93 H 88 92 H Respiratory 40 H 39 H Rate Blood Pressure 150/81 O2 Sat by Pulse 95 96 98 Oximetry 04/30/17 04/30/17 04/30/17 16:30 16:40 16:50 Temperature Pulse Rate 94 H 90 90 Respiratory 39 H 37 H 39 H Rate Blood Pressure O2 Sat by Pulse 97 97 96 Oximetry 04/30/17 04/30/17 04/30/17 17:00 17:10 17:20 Temperature Pulse Rate 89 95 H 94 H Respiratory 43 H 29 H 25 H Rate Blood Pressure 148/85 O2 Sat by Pulse 96 96 97 Oximetry 04/30/17 04/30/17 04/30/17 17:30 17:40 17:50 Temperature Pulse Rate 96 H 97 H 97 H Respiratory 43 H 38 H 35 H Rate Blood Pressure O2 Sat by Pulse 96 97 96 Oximetry 04/30/17 04/30/17 04/30/17 18:00 18:10 18:20 Temperature Pulse Rate 93 H 94 H 94 H Respiratory 19 40 H 54 H Rate Blood Pressure 151/75 H O2 Sat by Pulse 96 97 93 L Oximetry 04/30/17 04/30/17 04/30/17 18:30 18:40 18:50 Temperature Pulse Rate 93 H 100 H 99 H Respiratory 45 H 33 H Rate Blood Pressure O2 Sat by Pulse 96 89 L 95 Oximetry 04/30/17 04/30/17 04/30/17 19:00 19:10 19:20 Temperature Pulse Rate 96 H 102 H 103 H Respiratory 42 H 32 H 44 H Rate Blood Pressure 152/107 H O2 Sat by Pulse 94 L 93 L 93 L Oximetry 04/30/17 04/30/17 04/30/17 19:30 19:40 19:50 Temperature Pulse Rate 97 H 97 H 104 H Respiratory 47 H 49 H Rate Blood Pressure O2 Sat by Pulse 95 98 97 Oximetry 04/30/17 04/30/17 04/30/17 20:00 20:10 20:20 Temperature Pulse Rate 99 H 97 H 97 H Respiratory 50 H 44 H 46 H Rate Blood Pressure 178/107 H O2 Sat by Pulse 77 L 95 95 Oximetry 04/30/17 04/30/17 20:30 20:40 Temperature Pulse Rate 97 H 96 H Respiratory 25 H 35 H Rate Blood Pressure O2 Sat by Pulse 94 L 93 L Oximetry
[2017-05-01] MEDS: Pantoprazole 40 mg EC Tab PO SCH (06:36)
[2017-05-01 06:53] LABS: HEMATOCRIT 31.2 % (42.0-52.0); MEAN CORPUSCULAR HEMOGLOBIN 32.9 pg (25.0-35.0); MEAN CORPUSCULAR HGB CONC 34.3 g/dl (31.0-37.0); MEAN PLATELET VOLUME 11.7 fl (7.0-11.0); RED CELL DISTRIBUTION WIDTH 15.4 % (11.5-14.5); WHITE BLOOD COUNT 22.5 10^3/ul (4.5-11.0)
[2017-05-01 07:04] LABS: ALB/GLOB RATIO 0.9 (1.1-1.8); BILIRUBIN,TOTAL 0.5 mg/dL (0.2-1.3); CALCIUM 7.8 mg/dL (8.4-10.5); POTASSIUM 4.5 mmol/L (3.6-5.0); TOTAL PROTEIN 6.5 g/dL (5.8-8.3)
[2017-05-01] MEDS: Vancomycin 25 MG/ML PO SCH ×4 (09:51→21:57)
[2017-05-01] MEDS: Meropenem 500 MG in Sodium Chloride 0.9% 100 ML IVPB SCH ×2 (09:51→21:57)
--- NOTE | 2017-05-01 10:49 | CP.PCM.PN ---
<ErnestoIsabelle - Last Filed: 05/01/17 12:15> Subjective - Date & Time of Evaluation Date of Evaluation: 05/01/17 Time of Evaluation: 10:46 - Subjective Subjective: Gastroenterology Fellow/PGY5 Progress Note Patient notes slight left lower abdominal pain. Tolerating clear liquid diet. Notes loose stools yesterday. 12-point review of systems negative except for as above. Objective - Vital Signs/Intake and Output Vital Signs (last 24 hours): Temp Pulse Resp BP Pulse Ox 100.2 F H 98 H 38 H 162/79 H 94 L 05/01/17 04:10 05/01/17 06:00 05/01/17 01:00 05/01/17 01:00 05/01/17 01:00 Intake and Output: 05/01/17 05/01/17 06:59 18:59 Intake Total 400 Output Total 640 Balance -240 - Medications Medications: Current Medications Abacavir Sulfate (Ziagen) 300 mg PO BID [facility] Last Admin: 05/01/17 09:51 Dose: 300 mg Acetaminophen (Tylenol 325mg Tab) 650 mg PO Q4H PRN PRN Reason: Fever >100.4 F Last Admin: 05/01/17 03:04 Dose: 650 mg Albuterol/Ipratropium (Duoneb 3 Mg/0.5 Mg (3 Ml) Ud) 3 ml IH Q2H PRN PRN Reason: Shortness of Breath Last Admin: 04/30/17 21:50 Dose: 3 ml Meropenem 500 mg/ Sodium (Chloride) 100 mls @ 100 mls/hr IVPB Q12 DWAIN PRN Reason: Protocol Stop: 05/07/17 06:22 Last Admin: 05/01/17 09:51 Dose: 100 mls/hr Lamivudine (Epivir) 50 mg PO DAILY [facility] Last Admin: 04/30/17 10:56 Dose: 50 mg Morphine Sulfate (Morphine) 1 mg IVP Q3H PRN PRN Reason: Pain, moderate (4-7) Last Admin: 04/30/17 22:02 Dose: 1 mg Pantoprazole Sodium (Protonix Ec Tab) 40 mg PO 0600 [facility] Last Admin: 05/01/17 06:36 Dose: 40 mg Sodium Bicarbonate (Sodium Bicarbonate Tab) 1,300 mg PO BID [facility] Last Admin: 05/01/17 09:50 Dose: 1,300 mg Vancomycin HCl (Vancocin 25 Mg/Ml (Oral Use)) 125 mg PO QID DWAIN PRN Reason: Protocol Last Admin: 05/01/17 09:51 Dose: 125 mg - Labs Labs: 05/01/17 06:25 05/01/17 06:25 PT 12.7 Seconds (9.9-11.8) H 04/29/17 17:00 INR 1.18 (0.93-1.08) H 04/29/17 17:00 APTT 36.3 Seconds (23.7-30.8) H 04/29/17 17:00 - Constitutional Appears: Non-toxic, No Acute Distress - Head Exam Head Exam: ATRAUMATIC, NORMOCEPHALIC - Eye Exam Eye Exam: EOMI, PERRL Pupil Exam: PERRL. absent: Miosis, Mydriatic - ENT Exam ENT Exam: Mucous Membranes Moist, Normal Oropharynx - Neck Exam Neck Exam: Full ROM, Normal Inspection - Respiratory Exam Respiratory Exam: Clear to Ausculation Bilateral. absent: Rales, Rhonchi, Wheezes - Cardiovascular Exam Cardiovascular Exam: RRR, +S1, +S2. absent: Gallop, Rubs - GI/Abdominal Exam GI & Abdominal Exam: Soft, Tenderness, Normal Bowel Sounds. absent: Distended, Firm, Guarding, Rigid, Organomegaly, Rebound Additional comments: improving LLQ discomfort to palpation - Extremities Exam Extremities Exam: absent: Pedal Edema - Neurological Exam Neurological Exam: Alert, Awake - Psychiatric Exam Psychiatric exam: Normal Affect, Normal Mood - Skin Skin Exam: Dry, Intact, Normal Color, Warm Assessment and Plan - Assessment and Plan (Free Text) Assessment: 71 year old male with Hypertension, CKD, history of severe PVD s/p angioplasty and left 1st/2nd toe amputation, Prostate cancer s/p prostactectomy, and HIV on HAART presenting with weakness. Active treatment of improving severe sepsis 2/2 GNR UTI, pyelonephritis, and Bacteremia. GI consultation for possible GI bleed. Prior colonoscopy 11/22/16 diffuse diverticulosis and 4mm transverse tubular adenoma, mild radiation proctitis with reccommended three year surveillance. Plan: >no overt GI blood loss >no suspicion for GI bleed >H/H stable >PPI daily >no further episodes of diarrhea for stool workup >advance diet as tolerated from GI standpoint >no endoscopic evaluation indicated >thank you for opportunity to participate in the care of this patient <Finesse Leonardo - Last Filed: 05/01/17 13:00> Objective - Vital Signs/Intake and Output Vital Signs (last 24 hours): Temp Pulse Resp BP Pulse Ox 100.2 F H 98 H 38 H 162/79 H 94 L 05/01/17 04:10 05/01/17 06:00 05/01/17 01:00 05/01/17 01:00 05/01/17 01:00 Intake and Output: 05/01/17 05/01/17 06:59 18:59 Intake Total 400 Output Total 640 Balance -240 - Medications Medications: Current Medications Abacavir Sulfate (Ziagen) 300 mg PO BID [facility] Last Admin: 05/01/17 09:51 Dose: 300 mg Acetaminophen (Tylenol 325mg Tab) 650 mg PO Q4H PRN PRN Reason: Fever >100.4 F Last Admin: 05/01/17 03:04 Dose: 650 mg Albuterol/Ipratropium (Duoneb 3 Mg/0.5 Mg (3 Ml) Ud) 3 ml IH Q2H PRN PRN Reason: Shortness of Breath Last Admin: 04/30/17 21:50 Dose: 3 ml Meropenem 500 mg/ Sodium (Chloride) 100 mls @ 100 mls/hr IVPB Q12 DWAIN PRN Reason: Protocol Stop: 05/07/17 06:22 Last Admin: 05/01/17 09:51 Dose: 100 mls/hr Lamivudine (Epivir) 50 mg PO DAILY [facility] Last Admin: 05/01/17 11:31 Dose: 50 mg Morphine Sulfate (Morphine) 1 mg IVP Q3H PRN PRN Reason: Pain, moderate (4-7) Last Admin: 04/30/17 22:02 Dose: 1 mg Pantoprazole Sodium (Protonix Ec Tab) 40 mg PO 0600 [facility] Last Admin: 05/01/17 06:36 Dose: 40 mg Sodium Bicarbonate (Sodium Bicarbonate Tab) 1,300 mg PO BID [facility] Last Admin: 05/01/17 09:50 Dose: 1,300 mg Vancomycin HCl (Vancocin 25 Mg/Ml (Oral Use)) 125 mg PO QID DWAIN PRN Reason: Protocol Last Admin: 05/01/17 09:51 Dose: 125 mg - Labs Labs: 05/01/17 06:25 05/01/17 06:25 PT 12.7 Seconds (9.9-11.8) H 04/29/17 17:00 INR 1.18 (0.93-1.08) H 04/29/17 17:00 APTT 36.3 Seconds (23.7-30.8) H 04/29/17 17:00 Attending/Attestation - Attestation I have personally seen and examined this patient.: Yes I have fully participated in the care of the patient.: Yes I have reviewed all pertinent clinical information, including history, physical exam and plan: Yes Notes (Text): 05/01/17 12:58 71 year old male with HTN, CKD, PAD s/p angioplasty, toe amputation, Prostate cancer s/p prostactectomy, and HIV on HAART a/w UTI/Sepsis, also with anemia. 1. Anemia of chronic disease Plan: -no active gi bleeding -hemodynamically stable -recommend outpatient egd/colon -anemia more likely related to chronic illness / renal failure
[2017-05-01] MEDS: LamiVUDine 10 mg/ml Syringe PO SCH (11:31)
--- NOTE | 2017-05-01 12:06 | PN ---
DATE: 05/01/2017 SUBJECTIVE: The patient seen in bed, in no acute distress, nontoxic. PHYSICAL EXAMINATION: VITAL SIGNS: Temperature is 100.2, blood pressure is 160/70, respiratory rate of 18 and heart rate of 99. HEENT: Unremarkable. NECK: Supple. LUNGS: Decreased breath sounds. HEART: Normal S1 and S2. ABDOMEN: Soft and nontender. LABORATORY DATA: Reveals a white count of 22,000, hemoglobin of 10 and platelets of 148. Coagulation is noted. Chemistry reveals a BUN of 81, creatinine of 7.4. Procalcitonin is noted to be elevated at 161. Urinalysis is noted and stool for occult blood is negative and RPR is negative and hepatitis profile is negative. Microbiology reveals gram negative bronson in the blood. His MRSA screen is negative. Review of orders reveals the patient to be on meropenem and p.o. vancomycin. The patient is on his HIV medication of lamivudine which is Epivir and Abacavir which is Ziagen. ASSESSMENT AND PLAN: This is a 71-year-old male with past medical history of prostate cancer, hypertension, positive human immunodeficiency virus. We will follow with the [facility] for his human immunodeficiency virus care and with relatively good T-cells of almost 350 undetectable viral load, history of osteomyelitis of the left first toe status post amputation, history of gout, history of left foot ulcers associated with generalized weakness and dark colored stool and bowel movements, fevers and chills and difficulty urinating with leukocytosis and found to have severe sepsis with acute renal failure and Gram-negative bronson bacteremia one through that gastrointestinal versus genitourinary. Currently, on meropenem. Pending identification and sensitivity of the gram negative bronson in the blood and urine culture and GI workup. Dr. Flaherty, urologist's note is reviewed. We will follow with you. Cesar Flowers MD
--- NOTE | 2017-05-01 12:06 | PN ---
DATE: SUBJECTIVE: I saw Raza in intensive care unit. He is much more alert, having some groin issues, some pain and more aware. MEDICATIONS: He is on DuoNeb, Epivir, meropenem, morphine, Protonix, sodium bicarbonate, Tylenol, vancomycin, and Ziagen. PHYSICAL EXAMINATION: VITAL SIGNS: He has 100.2 temperature, 98 pulse, 162/79 blood pressure, 38 respiratory rate, and 94% O2 sat on room air. HEENT: Head is atraumatic and normocephalic. He is more alert, talking a lot, lot of pain now in his groin left side. HEART: Regular rate. LUNGS: Clear to auscultation with decreased breath sounds. ABDOMEN: Soft. Decreased bowel sounds. EXTREMITIES: No edema. LABORATORY DATA: He has 22,000 white count, it was as high as 27 yesterday, hemoglobin 10.7, hematocrit 31.2, and platelets 148 who starting to get better, still very high. Sodium 140, potassium 4.5, BUN 81, creatinine 7.4 very high and kidney failure. GFR is 7, sugar is 92, calcium 7.8, total bilirubin is 0.5, magnesium is 2, AST is 76, ALT is 45, alkaline phosphatase 85, total protein 6.5, and PSA is 2.7. Occult blood was negative. Hepatitis screen was negative and RPR is negative. ASSESSMENT AND PLAN: He has consults with cardiology, GI, renal, infectious disease, and urology. I will order ultrasound of the pelvis and testicles. Check his labs tomorrow. Raza Sagastume is quite sick, sepsis, gastrointestinal bleed, urinary tract infection, myocardial infarction, acute kidney injury, acute renal failure, diabetes, and now with groin pain. Parag Brownlee DO MTDAnna
--- NOTE | 2017-05-01 16:32 | PN ---
CHIEF COMPLAINT: "I'm not doing so good," complaining of abdominal pain. HISTORY OF PRESENT ILLNESS: The patient states he feels not too good, not too bad. He is feeling in between. He does report that he is having pain in the lower back and the lower abdomen. He has Augustin catheter. He denies any chest pain or palpitation and denies shortness of breath, although he looks visibly tachypneic. He reports mild cough. Denies any fever or chills at this time. Denies any other joint pain. Denies any diarrhea at this time. The patient was not able to sleep well last night. PHYSICAL EXAMINATION GENERAL: The patient is in the ICU. He is ill appearing, otherwise cooperative. VITAL SIGNS: The patient with lower grade temperature 100.2, pulse rate 98, when he was seen heart rate was 120, blood pressure 162/79, respiration was also 20 to 30 range. NEUROLOGIC: The patient is alert and oriented in x3. Follows all comment. The patient moving all for extremities. Non focal deficit. The patient also has asterixis in bilateral upper hands. LUNGS: Bilateral vesicular sounds. Few basal wheezing crackles are heard. The patient is tachypneic. CARDIOVASCULAR: S1,and S2 normal with tachycardia. No gallop or pericardial rub at this time. ABDOMEN: Soft, but lower abdomen tenderness was noted. No organomegaly could be appreciated. GENITOURINARY: The patient has Augustin catheter which is draining reddish urine. Otherwise kidneys and bladder not palpable at this time. EXTREMITIES: There is no edema. The patient has a history of amputation of left foot toes. PSYCHIATRIC: The patient has a normal insight. His mood and affect is flat at this time. No hallucinations. LABORATORY DATA: Workup, His hemoglobin is 10.7, platelets count is 148, WBC count 22.5, sodium is 140, potassium 4.5, bicarb is 18, BUN 81, creatinine 7.4, and glucose 92. He had a blood gas yesterday which showed pH 7.36, pCO2 of 32, pO2 of 64. His PSA is 2.7. Urine had shown 340 mg/g of creatinine. Stool for occult blood is negative. Hepatitis B and C has been negative. Chest x-ray done yesterday had shown no active disease. The patient also had renal ultrasound, which shows left kidney cyst. CURRENT MEDICATIONS: Reviewed, which shows the patient is on HAART medication and abacavir, lamivudine. The patient is also on antibiotic as meropenem. Also he is getting pantoprazole, sodium bicarbonate, and PO vancomycin. ASSESSMENT: Acute kidney injury, likely due to sepsis; urinary retention, worsening. The patient has hypertension, chronic kidney disease, chronic kidney disease stage V with 500 mg proteinuria, anemia, hypertension, gram-negative sepsis likely urinary tract infection and pyelonephritis, bladder wall thickening status post carcinoma, lactic acidosis, now non-anion gap metabolic acidosis, human immunodeficiency virus on HAART, peripheral vascular disease. RECOMMENDATIONS: Again, discussed dialysis with the patient. He is still refusing the dialysis. The patient aware about the risk and the consequences. The patient states he has discussed the dialysis also with the residential sales consultant in [facility]. He was not agreeable even at that time. The patient is aware that without the need of dialysis, he will dye from the complications from kidney failure. Considering his asterixis and high BUN and creatinine, renal replacement therapy with dialysis is recommended at this time. The patient continues to refuse, he does not want to discuss anymore today. He wants to think and then talk more tomorrow. If the patient continues to refuse, then also we will consider psychiatric evaluation capacity, although in my opinion the patient is able understand the risk and consequences. He is off IV fluids at this time. Continue sodium bicarb and supplementation, blood pressure control is acceptable. He is not on RYANN or ARB because of SUSY. Continue to monitor Is and Os, daily weights and renal function with BMP. Dose meds for GFR less than 10. Avoid Fleet enemas/magnesium laxative. Avoid nephrotoxin, NSAIDs or IV iodinated contrast. We will reassess the patient. Please call if any questions. Thank you for the consultation. Yandel Arechiga MD
[2017-05-01] MEDS: Morphine 2 mg/ml ISec IVP PRN (17:58)
--- NOTE | 2017-05-01 19:14 | US ---
PROCEDURE: Ultrasound urinary bladder HISTORY: Pain. Augustin catheter documented in the urinary bladder. COMPARISON: 03/27/2016. Ultrasound urinary bladder. Summary of findings on the comparison examination: Prevoid volume 438 mL. Postvoid residual 282 mL. Prostate volume 21.2 mL. TECHNIQUE: Standard protocol for this study/examination. FINDINGS: Urinary bladder assessment: Prevoid volume: 647.1 ml Postvoid residual: No measurable postvoid residual this follows unclamping of the Augustin catheter. Intrinsic, mural, perivesical abnormalities: None Ureteral jets: Not identified. IMPRESSION: No significant or acute findings to account for/ related to the clinical presentation.
--- NOTE | 2017-05-01 19:17 | US ---
HISTORY: pain TECHNIQUE: Realtime sonography through the scrotum with color and doppler flow. COMPARISON: None Available. FINDINGS: RIGHT TESTICLE: Measures 2.7 x 2.6 x 4.5 cm. Normal echo characteristics, well-circumscribed right testicle, increased flow. RIGHT EPIDIDYMIS: Epididymal head measures 0.6 x 2.0 cm. Grossly unremarkable appearance with normal flow. LEFT TESTICLE: Measures 2.7 x 2.8 x 3.2 cm. Heterogeneous, hypervascular left testicle LEFT EPIDIDYMIS: Epididymal head measures 0.8 x 1.1 cm. Hypervascular left epididymis HYDROCELE: Bilateral left larger than right VARICOCELE: None. OTHER FINDINGS: None. IMPRESSION: 1. Right orchitis, mild. 2. Left epididymitis and orchitis more pronounced compared to the contralateral, right side. 3. Bilateral hydroceles left larger than right. No evidence of testicular torsion or mass.
[2017-05-01] MEDS: Albuterol-Ipratrop 3 mg / 0.5 (3 ml) UD IH PRN (20:13)
[2017-05-02] MEDS: Pantoprazole 40 mg EC Tab PO SCH (05:18)
[2017-05-02 06:18] LABS: HEMATOCRIT 30.8 % (42.0-52.0); MEAN CELL VOLUME 95.4 fl (80.0-105.0); MEAN CORPUSCULAR HEMOGLOBIN 32.8 pg (25.0-35.0); MEAN CORPUSCULAR HGB CONC 34.4 g/dl (31.0-37.0); MEAN PLATELET VOLUME 12.2 fl (7.0-11.0); RED CELL DISTRIBUTION WIDTH 15.3 % (11.5-14.5)
[2017-05-02 06:47] LABS: WHITE BLOOD COUNT 25.1 10^3/ul (4.5-11.0)
[2017-05-02 07:12] LABS: ALB/GLOB RATIO 0.9 (1.1-1.8); BILIRUBIN,TOTAL 0.6 mg/dL (0.2-1.3); CALCIUM 8.4 mg/dL (8.4-10.5); MAGNESIUM 2.3 mg/dL (1.7-2.2); POTASSIUM 4.6 mmol/L (3.6-5.0); TOTAL PROTEIN 6.8 g/dL (5.8-8.3)
--- NOTE | 2017-05-02 08:43 | PN ---
DATE: 05/02/2017 SUBJECTIVE: The patient complains of abdominal pain and recurrent cough. PHYSICAL EXAMINATION: VITAL SIGNS: Blood pressure is 184/99, the heart rate is 100, sinus tachycardia with occasional PVCs. NECK: Negative JVD. LUNGS: Bilateral rhonchi. HEART: Reveal S1, S2. EXTREMITIES: Without edema. LABORATORY DATA: The white count is persistent at 25,000, hemoglobin is 10.6. Chemistries: BUN and creatinine is 84 and 7.6. Liver function tests are elevated. The proBNP was 22,000. Echocardiogram performed on 04/30/2017, reveals pulmonary hypertension with an ejection fraction of 56%. IMPRESSION: 1. Persistently elevated white count. 2. Hypertension. 3. Abdominal pain. 4. History of human immunodeficiency virus. 5. Anemia. 6. Renal failure. Given these findings, the source of his elevated white count with possible infection is still unclear. We will add clonidine to his regimen to help control his blood pressure. Emmanuel Weller MD
--- NOTE | 2017-05-02 09:55 | PN ---
DATE: SUBJECTIVE: He was in room number 267, now he is at the intensive care unit. He is uncomfortable on bed. He tell me he is very hungry which is a good sign. He is looking to eat. He is in lot of pain, lots of complaints which I think is also good. PHYSICAL EXAMINATION: VITAL SIGNS: He has a 98.1 temperature, 95 pulse rate; 184/97 blood pressure, I will see with Dr. Weller, thinks about blood pressure, we will add more medicine for his blood pressure. He is 97% O2 saturation on 2 L right now. He is on BiPAP at night. HEENT: His head is atraumatic and normocephalic. He is talking well, more alert and comfortable. HEART: Regular rate. LUNGS: Decreased breath sounds bilaterally. ABDOMEN: Soft. Positive bowel sounds. Still having groin pain. EXTREMITIES: No edema. CURRENT MEDICATIONS: He is currently on DuoNeb, Epivir, Merrem, Morphine, Norvasc, Protonix, sodium bicarbonate, Tylenol, vancomycin, and Ziagen. LABORATORY DATA: He has 144 sodium, potassium of 4.6, BUN of 84, and creatinine of 7.6, refusing dialysis. Sugar is 87, calcium is 8.4, phosphorus is 2.3, AST is 115, ALT is 72, alkaline phosphatase is 127, albumin is 3.2, and total protein is 6.8. White count is still high at 25.1, hemoglobin of 10.6, hematocrit of 30.8, and 169 platelets. ASSESSMENT AND PLAN: He has been seen by multiple doctors, Renal. He is refusing dialysis for his acute renal failure, Gastrointestinal, Infectious Diseases for his sepsis, Urology and Cardiology, . He has got multiple problems. He is septic, gastrointestinal bleed, urinary tract infection, hypertension, myocardial infarction, acute kidney injury on chronic kidney injury, diabetes, hypertension, right orchitis, and left epididymitis. He is also getting weak. He might need subacute rehab when were done here, I will order. Out of bed to chair, physical therapy and diet as per gastrointestinal. We will check his labs tomorrow, hopefully the white count will decrease. Parag Brownlee DO
[2017-05-02] MEDS: Meropenem 500 MG in Sodium Chloride 0.9% 100 ML IVPB SCH ×2 (10:08→21:49)
[2017-05-02] MEDS: Vancomycin 25 MG/ML PO SCH ×2 (10:43→15:04)
[2017-05-02] MEDS: LamiVUDine 10 mg/ml Syringe PO SCH (11:03)
[2017-05-02] MEDS: Morphine 2 mg/ml ISec IVP PRN (12:44)
[2017-05-02 12:55] LABS: % CD16+CD56+(NK CELL) 19 Percent (4-25); % CD19 (B CELL) 24 Percent (6-29); % CD3 (MATURE T CELL) 55 Percent (57-85); ABSOLUTE CD16+CD56+CELLS 393 Cells/mcL (70-760)
[2017-05-02] MEDS ORDERED: Sod Polystyrene Sulf 15 gm/60 ml Oral Susp PO ONE (15:34)
--- NOTE | 2017-05-02 16:37 | CP.PCM.PN ---
Subjective - Date & Time of Evaluation Date of Evaluation: 05/02/17 Time of Evaluation: 15:50 - Subjective Subjective: Comfortable in bed but still has occasional pain in the abdomen, no vomtiing, no fevers overnight. Objective - Vital Signs/Intake and Output Vital Signs (last 24 hours): Temp Pulse Resp BP Pulse Ox 98.1 F 100 H 20 169/89 H 97 05/02/17 06:00 05/02/17 10:07 05/02/17 06:00 05/02/17 10:08 05/02/17 06:00 Intake and Output: 05/02/17 05/02/17 06:59 18:59 Intake Total 480 Output Total 1400 Balance -920 - Medications Medications: Current Medications Abacavir Sulfate (Ziagen) 300 mg PO BID [facility] Last Admin: 05/02/17 10:08 Dose: 300 mg Acetaminophen (Tylenol 325mg Tab) 650 mg PO Q4H PRN PRN Reason: Fever >100.4 F Last Admin: 05/01/17 20:37 Dose: 650 mg Albuterol/Ipratropium (Duoneb 3 Mg/0.5 Mg (3 Ml) Ud) 3 ml IH Q2H PRN PRN Reason: Shortness of Breath Last Admin: 05/01/17 20:13 Dose: 3 ml Amlodipine Besylate (Norvasc) 10 mg PO DAILY [facility] Last Admin: 05/02/17 10:08 Dose: 10 mg Clonidine HCl (Catapres) 0.1 mg PO BID [facility] Last Admin: 05/02/17 10:07 Dose: 0.1 mg Meropenem 500 mg/ Sodium (Chloride) 100 mls @ 100 mls/hr IVPB Q12 DWAIN PRN Reason: Protocol Stop: 05/07/17 06:22 Last Admin: 05/02/17 10:08 Dose: 100 mls/hr Lamivudine (Epivir) 50 mg PO DAILY [facility] Last Admin: 05/01/17 11:31 Dose: 50 mg Morphine Sulfate (Morphine) 1 mg IVP Q3H PRN PRN Reason: Pain, moderate (4-7) Last Admin: 05/01/17 17:58 Dose: 1 mg Pantoprazole Sodium (Protonix Ec Tab) 40 mg PO 0600 [facility] Last Admin: 05/02/17 05:18 Dose: 40 mg Sodium Bicarbonate (Sodium Bicarbonate Tab) 1,300 mg PO BID [facility] Last Admin: 05/02/17 10:07 Dose: 1,300 mg Vancomycin HCl (Vancocin 25 Mg/Ml (Oral Use)) 125 mg PO QID [facility] PRN Reason: Protocol Last Admin: 05/02/17 10:43 Dose: 125 mg - Labs Labs: 05/02/17 05:30 05/02/17 05:30 PT 12.7 Seconds (9.9-11.8) H 04/29/17 17:00 INR 1.18 (0.93-1.08) H 04/29/17 17:00 APTT 36.3 Seconds (23.7-30.8) H 04/29/17 17:00 - Constitutional Appears: Non-toxic, No Acute Distress - Head Exam Head Exam: NORMAL INSPECTION - ENT Exam ENT Exam: Mucous Membranes Moist - Neck Exam Neck Exam: absent: Meningismus - Respiratory Exam Respiratory Exam: Decreased Breath Sounds - Cardiovascular Exam Cardiovascular Exam: +S1, +S2 - GI/Abdominal Exam GI & Abdominal Exam: Soft. absent: Tenderness Assessment and Plan - Assessment and Plan (Free Text) Plan: Assessment severe sepsis with acute on chronic renal failure probably due to intra- abdominal infection (possible ileitis/colitis/proctitis), as well as pyelonephritis with gram negative bacilli bacteremia in this patient presenting with melena; ischemic colitis is also part of the differential diagnosis Charcot foot, left history of left 2nd toe dry gangrene Chronic renal failure HTN prostate CA HIV (patient goes to the ID with last CD4 count her at [facility] 03/2016 349 and virus load < 1.3 log) history of osteomyelitis of left first toe S/P amputation (2015) gout history of left foot ulcers Plan continue Merrem day 3; blood cx showing gram negative bacilli, urine cx showing E. coli - awaiting identification of the bacteria in the blood; will d/c PO Vanco since he does not have diarrhea currently continue antiretroviral therapy (lamivudine, abacavir on formulary but dolutegravir should be taken by patient from his home supply) reviewed GI evaluation Will continue to follow clinically
[2017-05-02] MEDS ORDERED: Bismuth Subsalicylate 262 mg/15 ml Sus (240 ml) PO ONE (17:48)
[2017-05-03] MEDS: Pantoprazole 40 mg EC Tab PO SCH (06:22)
[2017-05-03 07:22] LABS: HEMATOCRIT 28.8 % (42.0-52.0); MEAN CELL VOLUME 96.3 fl (80.0-105.0); MEAN CORPUSCULAR HEMOGLOBIN 32.4 pg (25.0-35.0); MEAN CORPUSCULAR HGB CONC 33.7 g/dl (31.0-37.0); MEAN PLATELET VOLUME 11.7 fl (7.0-11.0); RED CELL DISTRIBUTION WIDTH 15.4 % (11.5-14.5); WHITE BLOOD COUNT 15.8 10^3/ul (4.5-11.0)
[2017-05-03 07:56] LABS: ALB/GLOB RATIO 0.9 (1.1-1.8); BILIRUBIN,TOTAL 0.5 mg/dL (0.2-1.3); MAGNESIUM 2.3 mg/dL (1.7-2.2); POTASSIUM 4.3 mmol/L (3.6-5.0); TOTAL PROTEIN 6.5 g/dL (5.8-8.3)
--- NOTE | 2017-05-03 08:22 | CON ---
DATE: 05/02/2017 FOLLOWUP NEPHROLOGY CONSULTATION CHIEF COMPLAINT: Lower abdominal pain. HISTORY OF PRESENT ILLNESS AND REVIEW OF SYSTEMS: The patient otherwise feels in his usual health. No change in condition but he said he is still having pain in the lower abdomen. He still has a Augustin catheter. He denies any difficulty breathing. Denies cough, phlegm. Denies any nausea or vomiting. Denies any appetite issues. He will eat better if he gets real food. Denies any leg swelling. He is in his usual health. PHYSICAL EXAMINATION GENERAL: The patient again appeared to be comfortable, not in acute respiratory distress. VITAL SIGNS: Stable. Afebrile. Pulse is 100, blood pressure 169/89. NEUROLOGIC: Patient A&O x3. No focal deficits. Moving all four extremities. Strength is intact. The patient still has some asterixis. LUNGS: Bilateral vesicular sound clear today. No added sounds. CARDIOVASCULAR: S1 and S2 normal with tachycardia. No rubs. ABDOMEN: Soft and distended. Lower abdomen discomfort was noted. No rigidity or guarding. GENITOURINARY: Kidney and bladder not palpable. The patient has a Augustin catheter. EXTREMITIES: No edema at this time. PSYCHIATRIC: Patient is oriented. Affect is flat. The patient does have normal insight. His daughter was also at bedside at the time of examination. LABORATORY DATA: His workup shows white count today is high at 25, hemoglobin 10.6, platelet count is 169. Sodium 144, potassium 4.6, bicarbonate 20, creatinine 7.6. Then he made 2 liters of urine yesterday. His urine, protein, creatinine ratio is approximately 500 mg per day. His hepatitis B and C has been negative. RPR has been negative. His testicular ultrasound shows left epididymitis and orchitis. CURRENT MEDICATIONS: Have shown the patient is on HAART medication, Tylenol as needed, DuoNeb, amlodipine 10 mg per day, clonidine 0.1 mg b.i.d. started today, lamivudine, meropenem, pantoprazole, sodium bicarbonate 1300 mg b.i.d. and p.o. vancomycin. ASSESSMENT: 1. The patient remains critical with acute kidney injury, likely due to sepsis and urinary retention. 2. Hypertensive chronic kidney disease, stage V with 500 mg proteinuria. 3. Anemia. 4. Hypertension. 5. Gram-negative sepsis with E. coli likely urinary tract infection, pyelonephritis. 6. History of bladder wall thickening. 7. History of carcinoma prostate. 8. Left epididymitis, orchitis. 9. Lactic acidosis and normal anion gap metabolic acidosis, which is better. 10. Human immunodeficiency virus on highly active antiretroviral therapy and peripheral vascular disease. RECOMMENDATIONS: Again, discussed dialysis, the patient continued to refuse it and the patient's daughter is also at bedside. He said they will call his inclusion intern to be at hospital and the patient wanted to discuss with his inclusion intern as well before making any decision. He is refusing at this time. Then otherwise blood pressure medications were adjusted recently by sales service technician. We will continue to monitor. Continue sodium bicarbonate supplementation. His urine output has improved. The patient again not on RYANN or ARB due to SUSY. Continue to monitor renal function, daily weights, I's and O's. Dose meds/antibiotics for reduced GFR. Avoid Fleet Enema, magnesium-based laxatives. Avoid nephrotoxin, NSAIDs, iodinated contrast. Thank you for the consultation. Please call if any questions. If patient agree for dialysis, he will need to be transferred to [facility] as inpatient dialysis is not being proceeded at [facility] anymore. Yandel Arechiga MD
--- NOTE | 2017-05-03 09:23 | PN ---
DATE: SUBJECTIVE: He is resting in bed, slept a bit last night. Still some abdominal pain, uncomfortable, and groin pain. He is on Catapres, Epivir, Merrem IV, morphine, Norvasc, Protonix, sodium bicarbonate, Tylenol, and Ziagen. PHYSICAL EXAMINATION: VITAL SIGNS: 98.7 temperature, 92 pulse, 151/80 blood pressure, 20 respiratory rate, 96% O2 saturation on nasal cannula. HEENT: Head is atraumatic and normocephalic. Throat is dry this morning. NECK: Supple. HEART: Regular rate. LUNGS: Decreased breath sounds, but clear. ABDOMEN: Mildly distended with decreased bowel sounds. Tender. No guarding. No rebound. EXTREMITIES: No edema. LABORATORY DATA: His white count finally broke 20 to 15.8 which is great, 9.7 hemoglobin, 28.8 hematocrit with 192 platelets, that is the best his white count has been. He has a 144 sodium, potassium 4.6, BUN 84, creatinine 7.6, refusing dialysis. His blood sugar is 92, calcium is 8.4, magnesium is 2.3. AST is 115, ALT is 72, alkaline phosphatase is 127, total protein is 6.8. His urine microalbumin is greater than 950. So far, occult blood was negative. ASSESSMENT AND PLAN: He is being seen by multiple doctors, Infectious Disease, Cardio, GI, Renal. He has severe sepsis, acute on chronic renal failure, positive urinary tract infection, pyelonephritis, melena, ischemic colitis. first day I think with 15,000 white count, he shows promise to improving. I do believe he needs subacute rehab, continue physical therapy, try and get him out of bed to chair, and diet as per GI. He is very, very sick. Parag Brownlee DO MTDAnna
[2017-05-03] MEDS: Meropenem 500 MG in Sodium Chloride 0.9% 100 ML IVPB SCH (09:33)
[2017-05-03] MEDS: Morphine 2 mg/ml ISec IVP PRN ×3 (09:37→21:14)
[2017-05-03] MEDS: LamiVUDine 10 mg/ml Syringe PO SCH (09:55)
--- NOTE | 2017-05-03 11:15 | PN ---
DATE: 05/03/2017 SUBJECTIVE: The patient's blood pressure is under better control on clonidine. PHYSICAL EXAMINATION: VITAL SIGNS: Blood pressure varies from 151 systolic to 174 systolic. NECK: Negative JVD. LUNGS: Without rales. HEART: S1 and S2. EXTREMITIES: Without edema. LABORATORY DATA: The white count is down to 15,000, hemoglobin is 9.7. Chemistries; BUN and creatinine is 85 and 7.3. IMPRESSION: 1. Blood pressure improvement on clonidine; however, still remains high. 2. Renal insufficiency. 3. Abdominal pain. 4. Sepsis. 5. History of human immunodeficiency virus syndrome. 6. Renal insufficiency. 7. Anemia. Given these findings, we will increase his clonidine to 0.2 mg b.i.d. Emmanuel Weller MD
[2017-05-03 11:31] LABS: PHOSPHOROUS 6.6 mg/dL (2.5-4.5)
[2017-05-03] MEDS: cefTRIAXone 1 gm 1 GM/100 ML BAG IVPB SCH (13:36)
--- NOTE | 2017-05-03 13:43 | PN ---
DATE: 05/03/2017 SUBJECTIVE: The patient seen in bed, in no acute distress, and nontoxic. The patient will be seen earlier. PHYSICAL EXAMINATION: VITAL SIGNS: Temperature is 98, blood pressure is 170/80, respiratory rate of 18, and heart rate of 92. HEENT: Unremarkable. NECK: Supple. LUNGS: Decreased breath sounds. HEART: Normal S1 and S2. ABDOMEN: Soft and nontender. LABORATORY DATA: Reveals a white count of 15,000, hemoglobin of 9, and platelets of 192. BUN of 85 and creatinine of 7.3. T-cells are noted 21% and 420 absolute CD4 count. RPR is negative. Crypto antigen is not detected. HIV PCR is undetectable. Hepatitis profile is negative. ASSESSMENT AND PLAN: This is a 71-year-old male with severe sepsis, acute on chronic renal failure due to intraabdominal infection, possible colitis, proctitis ileitis as well as pyelonephritis with Escherichia coli bacteremia in the blood and Escherichia coli in the urine also, sensitive to ceftriaxone, resistant to Cipro, sensitive for Bactrim, relatively sensitive Escherichia coli except for Cipro. Currently, the patient is on meropenem. Discontinue the meropenem and the patient with the history of left foot Charcot foot, history of left second toe dry gangrene, renal failure, hypertension, prostate cancer, positive HIV with good T-cells over 400 undetectable, and history of gout. On day #4, meropenem and E. coli is pansensitive, we will switch to IV ceftriaxone and may be we will switch the p.o. Vantin to complete perinephric inflammation was seen on the CAT scan and pyelonephritis. The patient has been afebrile for 24 hours, may be able to switch the p.o. Vantin upon discharge 100 mg p.o. b.i.d. adjusted for renal failure. Currently, we will start ceftriaxone while the patient is in hospital. Repeat the blood cultures to document negative blood cultures. We will follow the WBC count resolution currently at 15,800. Continue with the HIV medications. Cesar Flowers MD [facility] # [id number]
[2017-05-03 16:37] LABS: FOLATE 23.6 ng/mL
[2017-05-04] MEDS: Pantoprazole 40 mg EC Tab PO SCH (05:10)
[2017-05-04 07:21] LABS: MEAN CELL VOLUME 97.8 fl (80.0-105.0); MEAN CORPUSCULAR HEMOGLOBIN 32.5 pg (25.0-35.0); MEAN CORPUSCULAR HGB CONC 33.2 g/dl (31.0-37.0); MEAN PLATELET VOLUME 11.2 fl (7.0-11.0); RED CELL DISTRIBUTION WIDTH 15.1 % (11.5-14.5); WHITE BLOOD COUNT 14.5 10^3/ul (4.5-11.0)
[2017-05-04 07:41] LABS: ALB/GLOB RATIO 0.8 (1.1-1.8); BILIRUBIN,TOTAL 0.4 mg/dL (0.2-1.3); CALCIUM 7.9 mg/dL (8.4-10.5); MAGNESIUM 2.3 mg/dL (1.7-2.2); POTASSIUM 4.4 mmol/L (3.6-5.0); TOTAL PROTEIN 6.6 g/dL (5.8-8.3)
--- NOTE | 2017-05-04 08:21 | PN ---
NEPHROLOGY FOLLOWUP DATE: 05/03/2017 CHIEF COMPLAINT: "I feel the same." Complaining of stomach pain. HISTORY OF PRESENT ILLNESS AND REVIEW OF SYSTEMS: The patient feels same as yesterday. He says "I'm still having pain in the lower abdomen and stomach area. My stomach is also big." Denies any shortness of breath and reports some cough. Denies any urinary complaints. Does have Augustin catheter. He denies any further loose stools. Denies any leg swelling. He otherwise feels the same as yesterday. PHYSICAL EXAMINATION: VITAL SIGNS: His urine output was 1200 mL yesterday. He is afebrile, pulse 96, blood pressure 174/81, his saturation is 96% on oxygen by nasal cannula. LUNGS: Bilateral vesicular sounds with basal wheezing and decreased air entry at both bases. CARDIOVASCULAR: S1 and S2 normal. Normal rhythm. No rub or gallop. ABDOMEN: Soft, distended. Lower abdomen discomfort and tenderness noted. No guarding or rebound or rigidity at this time. Bowel sounds are present. EXTREMITIES: No edema in both legs. GENITOURINARY: Kidney and bladder not palpable. The patient has a Augustin catheter. MUSCULOSKELETAL: No joint tenderness or swelling at this time. NEUROLOGIC: The patient is alert, awake, and oriented x3. Following all commands. Moving all four extremities. Strength and sensation is intact. PSYCHIATRIC: The patient is cooperative, has flat affect at this time. No hallucinations. LABORATORY DATA: Labs shows white blood cell count 15.8, hemoglobin has decreased to 9.7, platelet count is 192. Sodium is 142, potassium 4.3, bicarbonate is 20, stable, calcium is 8, creatinine is 7.3, GFR of 9. His magnesium is 2.3, his albumin is 3. In the past, his SPEP was negative with no normal kappa/lambda ratio. His blood and urine culture has grown E. coli. CURRENT MEDICATIONS: Also reviewed. The patient is presently on HAART medications, also on amlodipine 10 mg per day, clonidine 0.1 mg b.i.d., meropenem 500 mg b.i.d., Pepcid 40 mg daily, sodium bicarbonate 1300 mg twice daily. ASSESSMENT: His condition remains critical. He has acute kidney injury likely due to sepsis and urinary retention. The patient is nonoliguric, also possibly has hypertensive chronic kidney disease stage V with 500 mg proteinuria, anemia, hypertension and gram-negative sepsis with Escherichia coli with urinary tract infection and pyelonephritis, bladder wall thickening with history of carcinoma of prostate with left epididymitis, orchitis, has a Augustin catheter. Lactic acidosis with normal anion gap metabolic acidosis, which is improved. Human immunodeficiency virus, on highly active antiretroviral therapy. History of peripheral vascular disease. RECOMMENDATIONS: I had another discussion with the patient about dialysis. He said 'Im not ready." I explained to the patient risks and consequences of persistent kidney failure including fluid overload, hyperkalemia, risk of . The patient understands, he said he is not ready and wants to think more and then decide. I will start him on Lasix 40 mg per day in the meantime to maintain his euvolemic state. Continue with the bicarb supplementation. Monitor I's and O's and daily BMP. Also, we will check anemia workup and also check vitamin D, phosphorus, and PTH level. We will consider dose of Epogen or Aranesp if his hemoglobin stays low. Continue to dose medications /antibiotic for GFR less than 10. Avoid any Fleet enemas, magnesium based laxatives. Avoid any nephrotoxin, NSAIDs, or IV iodinated contrast. Thank you for the consultation. Please call if any questions. Discussed with the primary team. Yandel Arechiga MD
[2017-05-04] MEDS: cefTRIAXone 1 gm 1 GM/100 ML BAG IVPB SCH (10:13)
[2017-05-04] MEDS: Morphine 2 mg/ml ISec IVP PRN ×2 (10:17→18:47)
[2017-05-04] MEDS: LamiVUDine 10 mg/ml Syringe PO SCH (10:30)
--- NOTE | 2017-05-04 13:32 | PN ---
SUBJECTIVE: I saw the patient resting in bed. He is having some joint pains right now that moving around his right ankle, right wrist is bothering him. I am doing uric acid level on him. He looks better. He is talking more, complaining more, which is good. He is currently on hydralazine, Catapres, Epivir, Fergon, Lasix, morphine, Protonix, Renagel, Rocephin IV antibiotic, sodium bicarbonate, Tylenol, and Ziagen. PHYSICAL EXAMINATION: VITAL SIGNS: 99.3 temp, low grade; 91 pulse; 138/77 blood pressure, better; 20 respiratory rate and 95% O2 saturation on 2 liters nasal cannula. HEENT: Head is atraumatic, normocephalic. Throat is dry. NECK: Supple. HEART: Regular rate. LUNGS: Decreased breath sounds, but clear. ABDOMEN: Mildly distended, decreased bowel sounds, fairly soft. EXTREMITIES: No edema, but he does have Charcot joints in the ankles and deformity. Physical therapy recommended KARRI. I will call in case management to help us get the KARRI. He had blood test. He has white count down to 14.5, still elevated, was as high as 27, but doing better; hemoglobin is 10.3; hematocrit 31; platelets of 207. 140 sodium; potassium 4.4; BUN is still high at 89; creatinine of 7.5; GFR is 7, still refusing dialysis; sugar is 129; calcium is 7.9. Magnesium is 2.3. Total bili is 0.4. AST is 83, ALT is 68, alk phos is 110, total protein is 6.6. Stool is negative for blood. He is being seen by numerous physicians, infectious disease, cardiology, renal, gastroenterology. He has got sepsis, acute renal failure, possible colitis, pyelonephritis. He is HIV positive. He has prostate cancer history. I am trying to get him out of bed to chair, get his body move, increase his diet to full liquid, await and see what gastroenterology has to offer and check his labs. He is just starting to improve. Parag Brownlee DO
[2017-05-04 13:40] LABS: CRYPTOCOCCUS AB <1:2
--- NOTE | 2017-05-04 13:44 | PN ---
DATE: 05/04/2017 SUBJECTIVE: The patient is in bed, in no acute distress, and nontoxic. PHYSICAL EXAMINATION: HEENT: Unremarkable. NECK: Supple. LUNGS: Decreased breath sounds. HEART: Normal S1 and S2. ABDOMEN: Soft and nontender. LABORATORY DATA: Reveals a white count of 14,500, hemoglobin of 10, and platelets of 207. Chemistry reveals a BUN of 89 and creatinine of 7.5. ASSESSMENT AND PLAN: A 71-year-old male with severe sepsis, acute on chronic renal failure, intraabdominal infection, possible colitis, and ileitis, pyelonephritis with Escherichia coli, bacteremia in the blood and Escherichia coli in the urine, and currently on day #5 of therapy, may be we will switch to p.o. Vantin to complete therapy with complete 10 days for pyelonephritis, 100 mg p.o. b.i.d. of Vantin adjusted for renal disease. We will check on the repeat blood cultures. Cesar Flowers MD
[2017-05-04] MEDS: Ergocalciferol 50,000 Intl Units Cap PO SCH (14:44)
--- NOTE | 2017-05-04 14:54 | PN ---
DATE: 05/04/2017 CARDIOLOGY FOLLOWUP SUBJECTIVE: The patient is more awake. OBJECTIVE: VITAL SIGNS: Blood pressure 166/95, heart rate in the 90s. NECK: Negative JVD. LUNGS: Without rales. HEART: S1, S2. EXTREMITIES: Without edema. LABORATORY DATA: Glucose is 129, BUN and creatinine 89/7.5. White count is down to 14,000. IMPRESSION: 1. Sepsis. 2. Renal insufficiency. 3. Resolution of abdominal pain. 4. High blood pressure which is better. 5. Anemia. Given these findings, the patient is hemodynamically stable. No arrhythmias on telemetry. We will DC telemetry today. Emmanuel Weller MD
[2017-05-04] MEDS ORDERED: Vancomycin 1gm in NS 250ml 1 GM/250 ML BAG IVPB STA (18:55)
[2017-05-04 20:49] LABS: URINE BILIRUBIN NEGATIVE (NEGATIVE); URINE BLOOD LARGE (NEGATIVE); URINE GLUCOSE (UA) NEGATIVE (NEGATIVE); URINE KETONE NEGATIVE (NEGATIVE); URINE LEUKOCYTE ESTERASE MODERATE Leu/uL (NEGATIVE); URINE PROTEIN >=300 mg/dL (<30 mg/dL); URINE UROBILINOGEN 0.2 E.U./dL (<1 E.U./dL)
[2017-05-04 20:54] LABS: URINE APPEARANCE CLOUDY (CLEAR); URINE COLOR YELLOW (YELLOW)
[2017-05-04 21:05] LABS: URINE BACTERIA MANY (NEG); URINE EPITHELIAL CELLS 0 - 2 /hpf (0-5); URINE WBC 25 - 30 /hpf (0-6)
[2017-05-04 21:07] LABS: URINE AMORPHOUS SEDIMENT MODERATE
[2017-05-05] MEDS: Pantoprazole 40 mg EC Tab PO SCH (06:18)
[2017-05-05 07:29] LABS: HEMATOCRIT 29.7 % (42.0-52.0); MEAN CORPUSCULAR HEMOGLOBIN 32.3 pg (25.0-35.0); MEAN PLATELET VOLUME 11.2 fl (7.0-11.0); RED CELL DISTRIBUTION WIDTH 15.1 % (11.5-14.5); WHITE BLOOD COUNT 18.9 10^3/ul (4.5-11.0)
[2017-05-05 07:52] LABS: ALB/GLOB RATIO 0.9 (1.1-1.8); BILIRUBIN,TOTAL 0.4 mg/dL (0.2-1.3); MAGNESIUM 2.3 mg/dL (1.7-2.2); POTASSIUM 4.9 mmol/L (3.6-5.0); TOTAL PROTEIN 6.5 g/dL (5.8-8.3); URIC ACID 11.9 mg/dL (3.5-8.5)
[2017-05-05] MEDS: Vancomycin 25 MG/ML PO SCH ×4 (10:33→21:59)
[2017-05-05] MEDS: LamiVUDine 10 mg/ml Syringe PO SCH (10:43)
--- NOTE | 2017-05-05 12:20 | PN ---
DATE: 05/05/2017 SUBJECTIVE: The patient is seen this morning. I was called last night. The patient has had fever and developed tachycardia. The patient is still having some abdominal discomfort. PHYSICAL EXAMINATION: VITAL SIGNS: Temperature is 98, T-max is 102.3, heart rate of 103, blood pressure is 130/80, respiratory rate of 22. HEENT: Unremarkable. NECK: Supple. LUNGS: Decreased breath sounds. HEART: Normal S1 and S2. ABDOMEN: Mild tenderness. No rebound or guarding. LABORATORY DATA: Laboratory examination reveals a white count is up to 18,000, hemoglobin of 9, platelets of 261, and coagulation is noted. Blood gases are reviewed. Chemistry reveals a BUN of 94, creatinine is 8.0. Urinalysis is noted and immunology has been reviewed. T-cells are 420. Cryptococcal antigen negative. HIV PCR is undetectable. Hepatitis A, B, and C antibodies were negative. RPR is negative and initially the patient had E. coli in the blood and E. coli in the urine and pansensitive to E. coli. Also had a repeat blood cultures and no growth. P antigen is positive. C. diff antigen is positive, but the toxin is negative. Stool C. diff antigen is positive. The patient had a chest x-ray. I ordered a chest x-ray yesterday and last night, because he had a fever, the results are pending. Dr. Emmanuel Weller's progress note from yesterday is reviewed. The patient had a chest x-ray on the , no active disease and a chest x-ray on the , no active disease. ASSESSMENT AND PLAN: He is a 71-year-old male with severe sepsis, acute on chronic renal failure, and with Escherichia coli bacteremia, Escherichia coli in the urine, Escherichia coli pyelonephritis on day 6 of therapy. Yesterday, the patient developed a new fever, diarrhea, and with pseudomembranous colitis. Currently, we will repeat on a repeat mejia cultures, blood, urine, sputum, chest x-ray, procalcitonin, and the patient is on meropenem. We will add p.o. vancomycin and we will follow with you. The patient may need a repeat CAT scan of the abdomen and pelvis. Cesar Flowers MD [facility] # [id number]
--- NOTE | 2017-05-05 16:00 | CON ---
HISTORY OF PRESENT ILLNESS: The patient is a 71-year-old single male, who has been medically treated for acute on chronic renal failure as well as multiple infections (please refer to medical notes for full medical history) with no psychiatric history who has been refusing dialysis treatment on the unit thus far. Psychiatry was consulted for decisional capacity in respect to dialysis treatment. I met with the patient at bedside and we reviewed his notes. The patient is alert and oriented to month, day, location and year as well as circumstances. The patient denies having any depression, denies having any hallucinations. He is hopeful about the future and does not want to . The patient reports that he was admitted because of pains in his lower back and stomach and he is well aware of the recommendations and treatment for dialysis and what the consequences for non-treatment are. The patient indicates that he is aware that it is "imperative" to make a decision and indicates that he will "decide when I'm ready." The patient also said "I never said that I was not open to dialysis." The patient indicates that he would like to discuss the matter further with his [place] doctor, Krystin. The patient feels more comfortable with her and he indicates that he "trusts her more." The patient does not appear to be delusional. He is coherent and clear regarding his preference at this time. The patient has been agreeable to other recommendations on the unit including laboratory studies. Insight is considered to be fair at this time. PSYCHIATRIC HISTORY: The patient denies any psychiatric history, denies suicide attempts, psych meds, psychiatric inpatient treatment, or outpatient psychiatric treatment. SOCIAL HISTORY: He was born and raised in [place]. He is single. He has no children. He lives by himself. He has no alcohol or drug history. He is retired in [employer] for the last 10 years. PHYSICAL EXAMINATION VITAL SIGNS: Reviewed by this provider. None were available as of this morning. However, he appears to be febrile as of last night at 103 with blood pressure of 149/87. LABORATORY DATA: Labs were also reviewed by this provider. IMPRESSION: Adjustment disorder with anxiety. RECOMMENDATIONS: At this time, the patient does have decisional capacity who refused dialysis, his rationalization for such refusal at this time is not illogical. I would recommend that the patient's director social welfare or medical training team attempt to contact Dr. Mcclelland at the [facility] and have the patient communicate with his doctor regarding the recommendation for dialysis, ultimately so that he may feel comfortable with his decision. As mentioned above, the patient is open to the idea of dialysis, so would like to think about it further and obtain more input from a trusted doctor. The patient is not suicidal, he is not homicidal. He does not appear to be delusional. He is not hallucinating and his responses are relevant to questioning. There does not appear to be an indication for any psychiatric transfer at this time. Psychiatry will sign off at this time. Please re-consult as necessary. Kathy Galindo MD
--- NOTE | 2017-05-05 17:33 | RAD ---
HISTORY: fever COMPARISON: Comparison chest 04/30/2017. FINDINGS: LUNGS: Study is limited due to apical lordotic patient positioning and or tube angulation. Poor inspiration with low lung volumes, crowded bronchovascular markings and mild bibasilar atelectasis. PLEURA: No significant pleural effusion identified, no pneumothorax apparent. CARDIOVASCULAR: Heart remains enlarged. Aorta is ectatic and uncoiled. OSSEOUS STRUCTURES: No significant abnormalities. VISUALIZED UPPER ABDOMEN: Normal. OTHER FINDINGS: None. IMPRESSION: Limited study due to apical lordotic patient positioning and or tube angulation. Poor inspiration with low lung volumes, crowded bronchovascular markings and mild bibasilar atelectasis Cardiomegaly. .
--- NOTE | 2017-05-05 19:57 | PN ---
DATE: SUBJECTIVE: He is resting comfortably in bed. He is eating a little bit better. He is still having some abdominal pain, but overall I think he is improving. PHYSICAL EXAMINATION: VITAL SIGNS: He has 98.4 temp, last night it was 102.3, 138/83 blood pressure, 84 pulse, 22 respiratory rate, and 96% O2 sat on 2 liters nasal cannula. HEENT: Head is atraumatic and normocephalic. HEART: Regular rate. LUNGS: Decreased breath sounds, but clear. ABDOMEN: Soft, mildly distended, and nontender. Positive bowel sounds. EXTREMITIES: No edema. MEDICATIONS: He is currently on Apresoline, Catapres, Drisdol, Epivir, Fergon, Lasix, Merrem IV, Morphine, Norvasc, Protonix, Renagel, sodium bicarbonate, Tylenol, and Ziagen. LABORATORY DATA: He has 18.9 white count, it was as low as 14.5 yesterday and bumped up to 18.9 at the same time, he had a 102 temp. I think they switched him from Rocephin to Merrem. I see what tomorrow's white count is. He has 9.8 hemoglobin, 29.7 hematocrit, and 261 platelets. Sodium 141, potassium 4.9, BUN is 94, and creatinine is 8. He is still refusing dialysis. His uric acid is 11.9, ari high. I am going to put him on medication for the uric acid. Calcium is 8, magnesium is 2.3, total bilirubin is 0.4, AST is 64, ALT is 56, alkaline phosphatase is 102, and total protein is 6.5. ASSESSMENT AND PLAN: I put in an order for case management to help with scheduling him to subacute rehab hopefully by Sunday. I know infectious disease will change him to p.o. antibiotics soon and when his white count get a little bit better. He is here for numerous issues. He has got severe sepsis, renal insufficiency, almost renal failure, abdominal pain, hypertension, anemia, pyelonephritis, and colitis. He has human immunodeficiency virus. He has history of prostate cancer. , checking laboratories. Parag Brownlee DO MTDAnna
[2017-05-06] MEDS ORDERED: Albuterol-Ipratrop 3 mg / 0.5 (3 ml) UD IH STA (01:10)
[2017-05-06] MEDS ORDERED: Albuterol-Ipratrop 3 mg / 0.5 (3 ml) UD IH PRN (01:12)
[2017-05-06] MEDS: Pantoprazole 40 mg EC Tab PO SCH (06:06)
[2017-05-06 08:12] LABS: HEMATOCRIT 27.3 % (42.0-52.0); MEAN CELL VOLUME 97.8 fl (80.0-105.0); MEAN CORPUSCULAR HGB CONC 33.7 g/dl (31.0-37.0); MEAN PLATELET VOLUME 10.6 fl (7.0-11.0); RED CELL DISTRIBUTION WIDTH 14.9 % (11.5-14.5); WHITE BLOOD COUNT 19.3 10^3/ul (4.5-11.0)
[2017-05-06 09:13] LABS: ALB/GLOB RATIO 0.8 (1.1-1.8); BILIRUBIN,TOTAL 0.5 mg/dL (0.2-1.3); CALCIUM 8.2 mg/dL (8.4-10.5); MAGNESIUM 2.4 mg/dL (1.7-2.2); POTASSIUM 4.7 mmol/L (3.6-5.0); TOTAL PROTEIN 6.6 g/dL (5.8-8.3)
--- NOTE | 2017-05-06 09:56 | RAD ---
HISTORY: Shortness of breath. COMPARISON: Comparison chest 05/04/2027 TECHNIQUE: Chest PA and lateral FINDINGS: LUNGS: Poor inspiration with low lung volumes, crowded bronchovascular markings and mild bibasilar atelectasis however developing lower lobe infiltrates not excluded. Questionable small bilateral effusions. PLEURA: As above. No pneumothorax apparent. CARDIOVASCULAR: Heart size is upper limits of normal. Aorta is ectatic and uncoiled. OSSEOUS STRUCTURES: No significant abnormalities. VISUALIZED UPPER ABDOMEN: Normal. OTHER FINDINGS: None. IMPRESSION: Poor inspiration with low lung volumes, crowded bronchovascular markings and mild bibasilar atelectasis however developing lower lobe infiltrates not excluded. Questionable small bilateral effusions.
[2017-05-06] MEDS: Vancomycin 25 MG/ML PO SCH ×3 (11:20→22:15)
--- NOTE | 2017-05-06 11:40 | PN ---
DATE: SUBJECTIVE: Raza Sagastume is definitely in trouble. His severe sepsis getting worse. He has C. diff now, acute renal failure, colitis, pyelonephritis, history of prostate cancer, His testicles are not swollen. He refuses to have any dialysis, which is a major problem. I gave an extra dose of Lasix today to see if that might help get off some fluid due to the swelling of his testicles, which are elevated. Apparently, he was seen by urology, noted in chart. MEDIATIONS: He is on Apresoline, Catapres, Drisdol, DuoNeb, Epivir, Fergon, Lasix, Merrem IV, morphine for pain, Norvasc, Protonix, Renagel, sodium bicarbonate, Tylenol, vancomycin, Ziagen, Zyloprim. PHYSICAL EXAMINATION: VITAL SIGNS: He has 98.4 temperature, 89 pulse, 165/79 blood pressure, 22 respiratory rate, 93% O2 sat on room air. GENERAL: He was lying comfortable. He is not feeling well. He has got multiple complaints, I wish he would go for dialysis to get rid of fluid and get less stress on his kidneys and liver. HEART: Regular rate. LUNGS: Decreased breath sounds bilaterally. ABDOMEN: Mildly distended, soft, positive bowel sounds. EXTREMITIES: Trace edema. Testicles are very swollen. LABORATORY DATA: White count is up to 19.3, it went up from yesterday he has had a 9.2 hemoglobin, 27.3 hematocrit with 333 platelets. 17 carbon dioxide, BUN is up to 94, creatinine is 8, GFR is 7, sugar is 85, calcium is 8, magnesium is 2.3, total bilirubin is 0.4, AST is 64, ALT is 66, alkaline phosphatase is 102, and procalcitonin is up to 52.71. He is in severe sepsis. I do not think having poor kidneys are helping the situation. He is being seen by infectious disease, cardiology, renal, GI, multiple tests, also urology saw him. He has left epididymitis, orchitis, bilateral hydrocele, right inguinal hernia. We will continue aggressive treatment and care. He might need to go to LTAC, I just do not see him getting better quickly without dialysis. We will continue with aggressive treatment and care. Parag Brownlee DO [facility] # [id number]
[2017-05-06] MEDS: LamiVUDine 10 mg/ml Syringe PO SCH (14:40)
--- NOTE | 2017-05-06 17:40 | PN ---
DATE: 05/06/2017 SUBJECTIVE: The patient is in bed, in no acute distress, nontoxic. PHYSICAL EXAMINATION: VITAL SIGNS: Temperature is 98, and blood pressures 150/70, respiratory rate 22, and heart rate 96. HEENT: Unremarkable. NECK: Supple. LUNGS: Decrease breath sounds. HEART: Normal S1 and S2. ABDOMEN: Soft. LABORATORY DATA: Revels the patient white count of 19,000, hemoglobin of 9, and platelets of 333. Chemistries are noted and patient procalcitonin is 52 yesterday, although creatinine is 8.6. Urinalysis is noted and patient does have 25-30 WBCs HIV is undetectable. Microbiology reveals a Gram-negative bronson in the urine. Blood cultures are no growth and review of orders reveals the patient on meropenem and p.o. vancomycin. The patient did have diarrhea yesterday. The patient C. diff antigen is positive, but the toxin is negative. The patient also had a chest x-ray today, which reveals poor inspiration film, low volume, carotid bronchovascular markings, questionable effusions that was read by Dr. Hardy Mlevin. ASSESSMENT AND PLAN: He is a 71-year-old male with severe sepsis, acute on chronic renal failure, Escherichia coli bacteremia, Escherichia coli in the urine with Escherichia coli pyelonephritis on day #7 of therapy, but patient two days ago had a new fever and repeat cultures are Gram-negative bronson in the urine again. Blood cultures so far negative and also with pseudomembranous colitis. His diarrhea has improved on p.o. vancomycin and IV meropenem. We will check on identification of Gram-negative bronson in the urine. We will follow closely with you. Cesar Flowers MD
[2017-05-06] MEDS: Ergocalciferol 50,000 Intl Units Cap PO SCH (17:45)
--- NOTE | 2017-05-06 17:59 | CP.PCM.PN ---
Subjective - Date & Time of Evaluation Date of Evaluation: 05/06/17 Time of Evaluation: 17:59 - Subjective Subjective: renal follow up note since afternoon sob+ Objective - Vital Signs/Intake and Output Vital Signs (last 24 hours): Temp Pulse Resp BP Pulse Ox 98.2 F 102 H 18 171/86 H 93 L 05/06/17 16:00 05/06/17 16:00 05/06/17 16:00 05/06/17 16:00 05/06/17 16:00 Intake and Output: 05/06/17 05/06/17 06:59 18:59 Intake Total 480 Output Total 600 Balance -120 - Medications Medications: Current Medications Abacavir Sulfate (Ziagen) 300 mg PO BID [facility] Last Admin: 05/06/17 17:46 Dose: 300 mg Acetaminophen (Tylenol 325mg Tab) 650 mg PO Q4H PRN PRN Reason: Fever >100.4 F Last Admin: 05/04/17 18:05 Dose: 650 mg Albuterol/Ipratropium (Duoneb 3 Mg/0.5 Mg (3 Ml) Ud) 3 ml IH Q2H PRN PRN Reason: Shortness of Breath Allopurinol (Zyloprim) 300 mg PO DAILY [facility] Last Admin: 05/06/17 11:16 Dose: 300 mg Amlodipine Besylate (Norvasc) 10 mg PO DAILY [facility] Last Admin: 05/06/17 11:17 Dose: 10 mg Clonidine HCl (Catapres) 0.2 mg PO BID [facility] Last Admin: 05/06/17 17:46 Dose: 0.2 mg Ergocalciferol (Drisdol 50,000 Intl Units Cap) 1 cap PO Q7D [facility] Last Admin: 05/06/17 17:45 Dose: 1 cap Ferrous Gluconate (Fergon) 324 mg PO TID [facility] Last Admin: 05/06/17 17:44 Dose: 324 mg Furosemide (Lasix) 40 mg PO DAILY [facility] Last Admin: 05/06/17 13:06 Dose: 40 mg Furosemide (Lasix) 80 mg IVP ONCE ONE Stop: 05/06/17 17:55 Hydralazine HCl (Apresoline) 25 mg PO Q4 PRN PRN Reason: Other Meropenem 250 mg/ Sodium (Chloride) 100 mls @ 100 mls/hr IVPB Q12H [facility] PRN Reason: Protocol Stop: 05/13/17 18:57 Last Admin: 05/06/17 06:04 Dose: 100 mls/hr Lamivudine (Epivir) 50 mg PO DAILY [facility] Last Admin: 05/06/17 14:40 Dose: 50 mg Morphine Sulfate (Morphine) 1 mg IVP Q4H PRN PRN Reason: Pain, severe (8-10) Last Admin: 05/04/17 18:47 Dose: 1 mg Pantoprazole Sodium (Protonix Ec Tab) 40 mg PO 0600 [facility] Last Admin: 05/06/17 06:06 Dose: 40 mg Sevelamer HCl (Renagel) 800 mg PO TID [facility] Last Admin: 05/05/17 18:54 Dose: 800 mg Sodium Bicarbonate (Sodium Bicarbonate Tab) 1,300 mg PO TID [facility] Last Admin: 05/06/17 17:46 Dose: 1,300 mg Vancomycin HCl (Vancocin 25 Mg/Ml (Oral Use)) 250 mg PO QID [facility] PRN Reason: Protocol Stop: 05/19/17 10:43 Last Admin: 05/06/17 11:20 Dose: 250 mg - Labs Labs: 05/06/17 07:30 05/06/17 07:30 PT 12.7 Seconds (9.9-11.8) H 04/29/17 17:00 INR 1.18 (0.93-1.08) H 04/29/17 17:00 APTT 36.3 Seconds (23.7-30.8) H 04/29/17 17:00 - Constitutional Appears: Non-toxic, Other (awake, complains of abdominal distension ) - Eye Exam Eye Exam: Normal appearance - ENT Exam ENT Exam: Mucous Membranes Moist - Respiratory Exam Respiratory Exam: Clear to Ausculation Bilateral Additional comments: decreased BS bases - Cardiovascular Exam Cardiovascular Exam: +S1, +S2 - GI/Abdominal Exam GI & Abdominal Exam: Distended, Soft - Neurological Exam Neurological Exam: Awake, Oriented x3 Assessment and Plan - Assessment and Plan (Free Text) Plan: SUSY/CKD stage 5/HIV/sepsis syndrome/acidosis/abdominal distension cr is worsening, electrolytes normal he is agreeable to dialysis consult surgery to put in temp hd line recommend iv lasix, i have given him 80 at 5 pm and another 40 now tonight monitor urine output SOB: ? clear xray; can consult ICU for evaluation abdominal distension: consider abdominal xray
--- NOTE | 2017-05-06 18:54 | CP.PCM.PN ---
Subjective - Date & Time of Evaluation Date of Evaluation: 05/06/17 Time of Evaluation: 18:30 - Subjective Subjective: CRITICAL CARE PROGRESS NOTE HPI: Pt is a 71yo Male with hx of HIV on HAART, PVD s/p angioplasty, hypertension, CKD, left foot toe amputations, prostate Ca presented with complaints of pain in lower abdomen and back for 2 days. Found gram neg sepsis, worsening renal failure. Pt has been refusing HD throughout his hospital stay, until today patient finally agreed to HD. ICU consulted for SOB. Pt currently afebrile, HD stable, RR 16-18, sat 93% on 2LNC. When asked about any complaints or issues, patient denies any major complaints, denies fever, chills, cough, chest pain, sob. Patient has had 875cc of UOP today, given Lasix 80mg IV just now. Objective - Vital Signs/Intake and Output Vital Signs (last 24 hours): Temp Pulse Resp BP Pulse Ox 98.2 F 102 H 18 177/90 H 93 L 05/06/17 16:00 05/06/17 16:00 05/06/17 16:00 05/06/17 18:19 05/06/17 16:00 Intake and Output: 05/06/17 05/06/17 06:59 18:59 Intake Total 480 Output Total 600 Balance -120 - Medications Medications: Current Medications Abacavir Sulfate (Ziagen) 300 mg PO BID [facility] Last Admin: 05/06/17 17:46 Dose: 300 mg Acetaminophen (Tylenol 325mg Tab) 650 mg PO Q4H PRN PRN Reason: Fever >100.4 F Last Admin: 05/04/17 18:05 Dose: 650 mg Albuterol/Ipratropium (Duoneb 3 Mg/0.5 Mg (3 Ml) Ud) 3 ml IH Q2H PRN PRN Reason: Shortness of Breath Allopurinol (Zyloprim) 300 mg PO DAILY [facility] Last Admin: 05/06/17 11:16 Dose: 300 mg Amlodipine Besylate (Norvasc) 10 mg PO DAILY [facility] Last Admin: 05/06/17 11:17 Dose: 10 mg Clonidine HCl (Catapres) 0.2 mg PO BID [facility] Last Admin: 05/06/17 17:46 Dose: 0.2 mg Ergocalciferol (Drisdol 50,000 Intl Units Cap) 1 cap PO Q7D [facility] Last Admin: 05/06/17 17:45 Dose: 1 cap Ferrous Gluconate (Fergon) 324 mg PO TID [facility] Last Admin: 05/06/17 17:44 Dose: 324 mg Furosemide (Lasix) 40 mg PO DAILY [facility] Last Admin: 05/06/17 13:06 Dose: 40 mg Hydralazine HCl (Apresoline) 25 mg PO Q4 PRN PRN Reason: Other Meropenem 250 mg/ Sodium (Chloride) 100 mls @ 100 mls/hr IVPB Q12H [facility] PRN Reason: Protocol Stop: 05/13/17 18:57 Last Admin: 05/06/17 06:04 Dose: 100 mls/hr Lamivudine (Epivir) 50 mg PO DAILY [facility] Last Admin: 05/06/17 14:40 Dose: 50 mg Morphine Sulfate (Morphine) 1 mg IVP Q4H PRN PRN Reason: Pain, severe (8-10) Last Admin: 05/04/17 18:47 Dose: 1 mg Pantoprazole Sodium (Protonix Ec Tab) 40 mg PO 0600 [facility] Last Admin: 05/06/17 06:06 Dose: 40 mg Sevelamer HCl (Renagel) 800 mg PO TID [facility] Last Admin: 05/05/17 18:54 Dose: 800 mg Sodium Bicarbonate (Sodium Bicarbonate Tab) 1,300 mg PO TID [facility] Last Admin: 05/06/17 17:46 Dose: 1,300 mg Vancomycin HCl (Vancocin 25 Mg/Ml (Oral Use)) 250 mg PO QID [facility] PRN Reason: Protocol Stop: 05/19/17 10:43 Last Admin: 05/06/17 11:20 Dose: 250 mg - Labs Labs: 05/06/17 07:30 05/06/17 07:30 PT 12.7 Seconds (9.9-11.8) H 04/29/17 17:00 INR 1.18 (0.93-1.08) H 04/29/17 17:00 APTT 36.3 Seconds (23.7-30.8) H 04/29/17 17:00 - Constitutional Appears: Well, Non-toxic, No Acute Distress - Head Exam Head Exam: NORMAL INSPECTION - Eye Exam Eye Exam: EOMI - ENT Exam ENT Exam: Mucous Membranes Moist - Neck Exam Neck Exam: Full ROM - Respiratory Exam Respiratory Exam: Clear to Ausculation Bilateral, NORMAL BREATHING PATTERN - Cardiovascular Exam Cardiovascular Exam: REGULAR RHYTHM, RRR, +S1, +S2 - GI/Abdominal Exam GI & Abdominal Exam: Distended, Soft, Hypoactive Bowel Sounds - Extremities Exam Extremities Exam: Normal Inspection, Pedal Edema - Neurological Exam Neurological Exam: Alert, Awake - Psychiatric Exam Psychiatric exam: Flat Affect Assessment and Plan - Assessment and Plan (Free Text) Assessment: 71yo male with worsening renal failure HIV Renal Failure Cdiff Abd distention Recommend: - currently afebrile, HD stable, NAD, sat 93% on 2LNC, - on exam Lungs CTABL, has distended but soft abd, without rebound or guarding - given that the lungs are CTABL, CXR with mild PVC, and distended abd, the mild increase in work of breathing is possibly 2/2 worsening abd distention - would obtain imaging of the abdomen, KUB or CAT scan - cont with IV lasix - HD as per renal
--- NOTE | 2017-05-06 21:45 | CP.PCM.CON ---
History of Present Illness - History of Present Illness History of Present Illness: Surgery Consult note. Dr. Cox. 71yo M with PMHx of HTN, PVD, HIV, CKD, GI bleeding, Prostate CA here for worsening gram negative sepsis and renal failure. General Surgery consulted for HD access. Patient has been refusing Dialysis throughout this hospital stay, until he finally agreed today. Nephrology team requested HD access tonight for possible dialysis tonight or early tomorrow AM. Patient denies any complaints at the present time. No F/C. No CP/SOB. No Abd pain. No headaches. No N/V/D. Has been making Urine with intermittent Lasix being administered by the primary and nephrology teams. PMHx: HTN, PVD, HIV, CKD, GI bleeding, Prostate CA PSHx: Left 1st toe amputation, Prostatectomy Social Hx: Denies ETOH, Denies Tobacco, Denies illicit drugs NKDA Review of Systems - Review of Systems All systems: reviewed and no additional remarkable complaints except - Constitutional Constitutional: absent: Chills, Fever - Cardiovascular Cardiovascular: Dyspnea. absent: Chest Pain - Respiratory Respiratory: Dyspnea - Gastrointestinal Gastrointestinal: absent: Abdominal Pain, Diarrhea, Nausea, Vomiting Past Patient History - Infectious Disease Hx of Infectious Diseases: None - Tetanus Immunizations Tetanus Immunization: Up to Date - Past Medical History & Family History Past Medical History?: Yes - Past Social History Smoking Status: Never Smoked - CARDIAC Hx Cardiac Disorders: Yes Hx Hypertension: Yes - PULMONARY Hx Respiratory Disorders: No - NEUROLOGICAL Hx Neurological Disorder: No - HEENT Hx HEENT Problems: No - RENAL Hx Chronic Kidney Disease: No - ENDOCRINE/METABOLIC Hx Diabetes Mellitus Type 1: No Hx Diabetes Mellitus Type 2: No - HEMATOLOGICAL/ONCOLOGICAL Hx Blood Transfusions: No - INTEGUMENTARY Hx Dermatological Problems: Yes (CELLULITIS OF L ANKLE 8-6-16.AMPUTATED 1ST TOE LEFT FOOT.,I/D RT HAND ABCES) Other/Comment: Ulcer of second toe BL - MUSCULOSKELETAL/RHEUMATOLOGICAL Hx Musculoskeletal Disorders: Yes Hx Falls: No Hx Gout: Yes Hx Osteomyelitis: Yes (Left first toe) - GASTROINTESTINAL Hx Gastrointestinal Disorders: No - GENITOURINARY/GYNECOLOGICAL Hx Genitourinary Disorders: Yes Hx Prostate Cancer: Yes - PSYCHIATRIC Hx Psychophysiologic Disorder: No Hx Substance Use: No - SURGICAL HISTORY Hx Amputation: Yes (Left first toe) Other/Comment: prostatectomy, incision and drainage of right hand abscess - ANESTHESIA Hx Anesthesia Reactions: No Hx Malignant Hyperthermia: No Meds Allergies/Adverse Reactions: Allergies Allergy/AdvReac Type Severity Reaction Status Date / Time No Known Allergies Allergy Verified 04/29/17 17:01 - Medications Medications: Current Medications Abacavir Sulfate (Ziagen) 300 mg PO BID [facility] Last Admin: 05/06/17 17:46 Dose: 300 mg Acetaminophen (Tylenol 325mg Tab) 650 mg PO Q4H PRN PRN Reason: Fever >100.4 F Last Admin: 05/04/17 18:05 Dose: 650 mg Albuterol/Ipratropium (Duoneb 3 Mg/0.5 Mg (3 Ml) Ud) 3 ml IH Q2H PRN PRN Reason: Shortness of Breath Allopurinol (Zyloprim) 300 mg PO DAILY [facility] Last Admin: 05/06/17 11:16 Dose: 300 mg Amlodipine Besylate (Norvasc) 10 mg PO DAILY [facility] Last Admin: 05/06/17 11:17 Dose: 10 mg Clonidine HCl (Catapres) 0.2 mg PO BID [facility] Last Admin: 05/06/17 17:46 Dose: 0.2 mg Ergocalciferol (Drisdol 50,000 Intl Units Cap) 1 cap PO Q7D [facility] Last Admin: 05/06/17 17:45 Dose: 1 cap Ferrous Gluconate (Fergon) 324 mg PO TID [facility] Last Admin: 05/06/17 17:44 Dose: 324 mg Furosemide (Lasix) 40 mg PO DAILY [facility] Last Admin: 05/06/17 13:06 Dose: 40 mg Hydralazine HCl (Apresoline) 25 mg PO Q4 PRN PRN Reason: Other Meropenem 250 mg/ Sodium (Chloride) 100 mls @ 100 mls/hr IVPB Q12H [facility] PRN Reason: Protocol Stop: 05/13/17 18:57 Last Admin: 05/06/17 18:39 Dose: 100 mls/hr Lamivudine (Epivir) 50 mg PO DAILY [facility] Last Admin: 05/06/17 14:40 Dose: 50 mg Morphine Sulfate (Morphine) 1 mg IVP Q4H PRN PRN Reason: Pain, severe (8-10) Last Admin: 05/04/17 18:47 Dose: 1 mg Pantoprazole Sodium (Protonix Ec Tab) 40 mg PO 0600 [facility] Last Admin: 05/06/17 06:06 Dose: 40 mg Sevelamer HCl (Renagel) 800 mg PO TID [facility] Last Admin: 05/05/17 18:54 Dose: 800 mg Sodium Bicarbonate (Sodium Bicarbonate Tab) 1,300 mg PO TID [facility] Last Admin: 05/06/17 17:46 Dose: 1,300 mg Vancomycin HCl (Vancocin 25 Mg/Ml (Oral Use)) 250 mg PO QID [facility] PRN Reason: Protocol Stop: 05/19/17 10:43 Last Admin: 05/06/17 11:20 Dose: 250 mg Physical Exam - Constitutional Appears: Non-toxic, No Acute Distress - Head Exam Head Exam: ATRAUMATIC, NORMAL INSPECTION, NORMOCEPHALIC - Eye Exam Eye Exam: EOMI, Normal appearance - ENT Exam ENT Exam: Mucous Membranes Moist - Neck Exam Neck exam: Positive for: Full Rom, Normal Inspection. Negative for: Tenderness - Respiratory Exam Respiratory Exam: NORMAL BREATHING PATTERN. absent: Respiratory Distress - Cardiovascular Exam Cardiovascular Exam: RRR. absent: JVD - GI/Abdominal Exam GI & Abdominal Exam: Distended (mild distention noted). absent: Firm, Guarding , Tenderness - Neurological Exam Neurological exam: Alert - Psychiatric Exam Psychiatric exam: Flat Affect - Skin Skin Exam: Dry, Normal Color, Warm Results - Vital Signs Recent Vital Signs: Last Vital Signs Temp 98.2 F 05/06/17 16:00 Pulse 102 H 05/06/17 16:00 Resp 18 05/06/17 16:00 BP 177/90 H 05/06/17 18:19 Pulse Ox 93 L 05/06/17 16:00 - Labs Result Diagrams: 05/06/17 07:30 05/06/17 07:30 Labs: Laboratory Results - last 24 hr 05/06/17 05/06/17 05/06/17 07:30 07:30 11:38 WBC 19.3 H RBC 2.79 L Hgb 9.2 L Hct 27.3 L MCV 97.8 MCH 33.0 MCHC 33.7 RDW 14.9 H Plt Count 333 MPV 10.6 Sodium 141 Potassium 4.7 Chloride 106 Carbon Dioxide 18 L Anion Gap 22 H BUN 95 H Creatinine 8.6 H* Est GFR ( Amer) 7 Est GFR (Non-Af Amer) 6 POC Glucose (mg/dL) 146 H Random Glucose 83 Calcium 8.2 L Magnesium 2.4 H Total Bilirubin 0.5 AST 68 H ALT 53 Alkaline Phosphatase 111 Total Protein 6.6 Albumin 3.0 Globulin 3.6 Albumin/Globulin Ratio 0.8 L 05/06/17 16:36 WBC RBC Hgb Hct MCV MCH MCHC RDW Plt Count MPV Sodium Potassium Chloride Carbon Dioxide Anion Gap BUN Creatinine Est GFR ( Amer) Est GFR (Non-Af Amer) POC Glucose (mg/dL) 148 H Random Glucose Calcium Magnesium Total Bilirubin AST ALT Alkaline Phosphatase Total Protein Albumin Globulin Albumin/Globulin Ratio Assessment & Plan - Assessment and Plan (Free Text) Assessment: 71yo M with PMHx of HIV, HTN, CKD, PVD, here with gram negative sepsis, likely urosepsis, worsening renal failure - Patient consented for Right IJ HD access. Risks and benefits of proposed procedure discussed with patient who expressed complete understanding. - Will place HD access under direct US guidance - CXR to follow to confirm placement. Further recs as per Dr. Kenny Diego PGY1 surgery pager: [phone] Proc: Central Venous Access - Time Performed Time Performed: 21:40 (Right IJ Power-Trialysis 13F 15cm Catheter used) - Time Out Time Out: Side verified, Site verified, Patient ID confirmed, Sterile procedures obs. - Procedure Procedure: Central Line placement: Right Technique:: Seldinger technique, Ultrasound guidance, Internal jugular vein - Consent obtained Consent obtained: Written - Performed by Performed by: Mid-level Provider (Quinn Diego PGY1) - Indications Indication(s):: Hemodialysis Contraindications: None Tube type:: Triple lumen, Hemodialysis Tube size Romansh:: 13 (13F 15cm catheter) - Local Anesthetic Local Anesthetic: Lidocaine: 5cc 1% lidocaine - Number of Attempts Attempts: 1 - Depth of Skin Depth at skin cm:: 14cm - Line sutured in place Line sutured in place:: Yes (sutured in place with 3-0 permanent. 2 sutures placed) - Confirmation Confirmation:: CXR -tube approp position, No pneumothorax - Complications Complications: No complications noted. - Patient tolerated procedure Patient Tolerated Procedure:: Well
[2017-05-07] MEDS: Pantoprazole 40 mg EC Tab PO SCH (05:52)
--- NOTE | 2017-05-07 08:10 | PN ---
CHIEF COMPLAINT: "I feel the same". HPI AND REVIEW OF SYSTEMS: Overnight event noted. The patient otherwise feels the same. Denied nausea, vomiting, chest pain, palpitations. He states breathing is okay. He reports pain in the lower abdomen. He continues with Augustin catheter. Denies any constipation or diarrhea at this time. Denied any leg swelling. PHYSICAL EXAMINATION: VITAL SIGNS: The patient has low temperature 99.3, pulse 92, blood pressure 166/95. His urine output recorded is inaccurate as per the nursing. He has reported only 500 mL over 24 hours, but now checked with the bag, he has another 350 mL urine in the bag in the last 6 hours. The patient, overall, appears ill-appearing, but otherwise comfortable, pleasant. CARDIOVASCULAR: S1 and S2 normal. No rub, no gallop. RESPIRATORY: Bilateral vesicular breath sounds with basal wheezing. Bilaterally decreased air entry at bases. Bilateral air entry normal. Symmetrical otherwise. ABDOMEN: Soft, distended. Lower abdomen tenderness is noted. No organomegaly could be appreciated clinically. EXTREMITIES: No edema at this time. SKIN: No rashes or ulcerations. Turgor is normal. PSYCHIATRIC: The patient has a flat affect. No hallucinations. NEUROLOGIC: Alert and oriented x3. No focal deficits. Moving all 4 extremities. Otherwise, overall, appears very fatigued and tired. GENITOURINARY: Kidney and bladder not palpable. The patient has a Augustin catheter workup. LABORATORY DATA: Labs shows white blood cell count 14.5, hemoglobin 10.3, platelet count is 207. Sodium is 140, potassium 4.4, bicarbonate is 18, creatinine is 7.5, MDRD GFR of 9. Glucose 149, calcium 7.9, magnesium is 2.3, his phosphorus was 6.6, albumin is 3.0. Vitamin D of 14. PTH level is pending. Iron saturation of 8%. Ferritin of 900. CURRENT MEDICATIONS: Reviewed. The patient presently on HAART medications, Tylenol as needed, clonidine 0.2 mg b.i.d., amlodipine 10 mg daily, vitamin D weekly, iron 324 mg t.i.d., Lasix 40 mg daily, hydralazine 25 mg as needed, lamivudine, pantoprazole 40 mg daily, ceftriaxone daily, sevelamer 800 mg t.i.d. sodium bicarbonate 1300 mg t.i.d. ASSESSMENT: Severe acute kidney injury, which is nonoliguric, on underlying chronic kidney disease stage V with 500 mg proteinuria, also with iron deficiency anemia, hypertension, gram-negative sepsis with Escherichia coli with pyelonephritis, urinary tract infection, bladder wall thickening with history of carcinoma of prostate with left epididymitis, acidosis, human immunodeficiency virus, on highly active antiretroviral therapy, history of peripheral vascular disease. RECOMMENDATIONS: The patient was recommended dialysis again. He says, "I am not ready". Recommend psychiatric evaluation as well to decide his dosage and decisional capacity. In the meantime, continue the Lasix 40 mg per day. Continue with blood pressure medications. We will increase the bicarb supplementation up to t.i.d. I have added phosphate binder, also added vitamin D supplement. Also, added iron supplement as well. Continue to monitor I's and O's, daily output, and daily weights. Dose meds for GFR less than 10. Avoid nephrotoxin, NSAIDs, IV iodinated contrast. Please call if any questions. Thank you for the consultation. Yandel Arechiga MD /Yandel Arechiga MD11:55:43<
--- NOTE | 2017-05-07 08:26 | PCM.URO ---
Urology Progress Note - Subjective Hematuria: Yes - Objective Lab Results Last 24 Hours: Laboratory Results - last 24 hr 05/06/17 05/06/17 05/06/17 07:30 07:30 11:38 WBC 19.3 H RBC 2.79 L Hgb 9.2 L Hct 27.3 L MCV 97.8 MCH 33.0 MCHC 33.7 RDW 14.9 H Plt Count 333 MPV 10.6 Sodium 141 Potassium 4.7 Chloride 106 Carbon Dioxide 18 L Anion Gap 22 H BUN 95 H Creatinine 8.6 H* Est GFR ( Amer) 7 Est GFR (Non-Af Amer) 6 POC Glucose (mg/dL) 146 H Random Glucose 83 Calcium 8.2 L Magnesium 2.4 H Total Bilirubin 0.5 AST 68 H ALT 53 Alkaline Phosphatase 111 Total Protein 6.6 Albumin 3.0 Globulin 3.6 Albumin/Globulin Ratio 0.8 L 05/06/17 05/06/17 16:36 22:01 WBC RBC Hgb Hct MCV MCH MCHC RDW Plt Count MPV Sodium Potassium Chloride Carbon Dioxide Anion Gap BUN Creatinine Est GFR ( Amer) Est GFR (Non-Af Amer) POC Glucose (mg/dL) 148 H 113 H Random Glucose Calcium Magnesium Total Bilirubin AST ALT Alkaline Phosphatase Total Protein Albumin Globulin Albumin/Globulin Ratio Intake & Output: Intake & Output 05/06/17 05/07/17 05/07/17 18:59 06:59 18:59 Intake Total 90 200 Output Total 875 1200 Balance -785 -1000 Intake: IV 200 Right Forearm 200 Oral 90 Output: Urine 875 1200 Urethral ([place]) 875 1200 Other: # Bowel Movements 1 Vital Signs: Vital Signs - 24 hr 05/06/17 05/06/17 05/06/17 08:51 11:17 11:18 Temperature Pulse Rate 89 Respiratory Rate Blood Pressure 155/79 H 155/77 H 155/77 H O2 Sat by Pulse Oximetry 05/06/17 05/06/17 05/06/17 13:06 16:00 18:19 Temperature 98.2 F Pulse Rate 102 H Respiratory 18 Rate Blood Pressure 134/84 171/86 H 177/90 H O2 Sat by Pulse 93 L Oximetry 05/06/17 05/06/17 05/07/17 21:50 22:15 00:01 Temperature 98.7 F Pulse Rate 114 H 80 Respiratory 24 18 Rate Blood Pressure 187/99 H 171/97 H O2 Sat by Pulse 95 Oximetry 05/07/17 08:02 Temperature 98.2 F Pulse Rate 112 H Respiratory 20 Rate Blood Pressure 184/96 H O2 Sat by Pulse 95 Oximetry - Plan Additional Information: aron plans:will remove [place] catheter
--- NOTE | 2017-05-07 09:41 | CP.PCM.PN ---
Subjective - Date & Time of Evaluation Date of Evaluation: 05/07/17 Time of Evaluation: 09:39 - Subjective Subjective: General Surgery Progress note for Dr. Cox PT S&E at bedside. Overnight patient pulled out catheter Vitals currently stable with tachycardia 112bpm Objective - Vital Signs/Intake and Output Vital Signs (last 24 hours): Temp Pulse Resp BP Pulse Ox 98.2 F 112 H 20 184/96 H 95 05/07/17 08:02 05/07/17 08:02 05/07/17 08:02 05/07/17 08:02 05/07/17 08:02 Intake and Output: 05/07/17 05/07/17 06:59 18:59 Intake Total 200 Output Total 1200 Balance -1000 - Medications Medications: Current Medications Abacavir Sulfate (Ziagen) 300 mg PO BID [facility] Last Admin: 05/06/17 17:46 Dose: 300 mg Acetaminophen (Tylenol 325mg Tab) 650 mg PO Q4H PRN PRN Reason: Fever >100.4 F Last Admin: 05/04/17 18:05 Dose: 650 mg Albuterol/Ipratropium (Duoneb 3 Mg/0.5 Mg (3 Ml) Ud) 3 ml IH Q2H PRN PRN Reason: Shortness of Breath Last Admin: 05/06/17 22:27 Dose: 3 ml Allopurinol (Zyloprim) 300 mg PO DAILY [facility] Last Admin: 05/06/17 11:16 Dose: 300 mg Amlodipine Besylate (Norvasc) 10 mg PO DAILY [facility] Last Admin: 05/06/17 11:17 Dose: 10 mg Clonidine HCl (Catapres) 0.2 mg PO BID [facility] Last Admin: 05/06/17 17:46 Dose: 0.2 mg Ergocalciferol (Drisdol 50,000 Intl Units Cap) 1 cap PO Q7D [facility] Last Admin: 05/06/17 17:45 Dose: 1 cap Ferrous Gluconate (Fergon) 324 mg PO TID [facility] Last Admin: 05/06/17 17:44 Dose: 324 mg Furosemide (Lasix) 40 mg PO DAILY [facility] Last Admin: 05/06/17 13:06 Dose: 40 mg Hydralazine HCl (Apresoline) 25 mg PO Q4 PRN PRN Reason: Other Meropenem 250 mg/ Sodium (Chloride) 100 mls @ 100 mls/hr IVPB Q12H [facility] PRN Reason: Protocol Stop: 05/13/17 18:57 Last Admin: 05/07/17 05:57 Dose: 100 mls/hr Lamivudine (Epivir) 50 mg PO DAILY [facility] Last Admin: 05/06/17 14:40 Dose: 50 mg Morphine Sulfate (Morphine) 1 mg IVP Q4H PRN PRN Reason: Pain, severe (8-10) Last Admin: 05/04/17 18:47 Dose: 1 mg Pantoprazole Sodium (Protonix Ec Tab) 40 mg PO 0600 [facility] Last Admin: 05/07/17 05:52 Dose: Not Given Sevelamer HCl (Renagel) 800 mg PO TID [facility] Last Admin: 05/05/17 18:54 Dose: 800 mg Sodium Bicarbonate (Sodium Bicarbonate Tab) 1,300 mg PO TID [facility] Last Admin: 05/06/17 17:46 Dose: 1,300 mg Vancomycin HCl (Vancocin 25 Mg/Ml (Oral Use)) 250 mg PO QID [facility] PRN Reason: Protocol Stop: 05/19/17 10:43 Last Admin: 05/06/17 22:15 Dose: Not Given Ziprasidone (Geodon Inj) 10 mg IM Q6H PRN; Protocol PRN Reason: agitation/psychosis Ziprasidone (Geodon Cap) 20 mg PO AMHS [facility] PRN Reason: Protocol - Labs Labs: 05/06/17 07:30 05/06/17 07:30 PT 12.7 Seconds (9.9-11.8) H 04/29/17 17:00 INR 1.18 (0.93-1.08) H 04/29/17 17:00 APTT 36.3 Seconds (23.7-30.8) H 04/29/17 17:00 - Constitutional Appears: Non-toxic - Head Exam Head Exam: NORMAL INSPECTION - Eye Exam Eye Exam: EOMI, Normal appearance - ENT Exam ENT Exam: Mucous Membranes Moist - Neck Exam Neck Exam: Full ROM - Respiratory Exam Respiratory Exam: Clear to Ausculation Bilateral. absent: Accessory Muscle Use , Respiratory Distress - Cardiovascular Exam Cardiovascular Exam: Tachycardia, REGULAR RHYTHM, +S1, +S2. absent: Bradycardia - GI/Abdominal Exam GI & Abdominal Exam: Distended. absent: Guarding, Rigid, Rebound - Extremities Exam Additional comments: 1st left toe amputation, ulceration of second toe - Neurological Exam Neurological Exam: Awake - Skin Skin Exam: Dry, Warm Assessment and Plan - Assessment and Plan (Free Text) Assessment: 71yo M with PMHx of HIV, HTN, CKD, PVD, here with gram negative sepsis, likely urosepsis, worsening renal failure Plan: Patient consented for Right IJ HD access, patient pulled out HD catheter. f/u on POA for patient for HD c/w current medical management per ID, medicine team c/w abx Diet: FLD, advance as tolerated per primary Further recs as per Dr. Kenny Campos, DO PGY1 surgery pager: [phone]
--- NOTE | 2017-05-07 09:55 | CON ---
PULMONARY CONSULTATION NOTE DATE: 05/07/2017 REASON FOR CONSULTATION: Shortness of breath. REFERRING PHYSICIAN: Parag Brownlee DO HISTORY OF PRESENT ILLNESS: History was obtained via extensive discussion with the night nurse. I have also reviewed the chart at length, and discussed the case with the patient at length. The patient is a 71-year-old male, with past medical history significant for hypertension, prostate cancer, HIV positivity, chronic kidney disease, and diabetes mellitus who presented to [facility] - originally on 04/29/2017 - with main complaints of increasing weakness, worsening abdominal pain, and dark-colored stools for the previous 3 days. In the emergency room, the patient was also noted to be febrile. He was thus admitted for additional evaluation. Again, I did discuss the case with the night nurse at length. The patient was mildly short of breath at rest and certainly dyspneic with any exertion yesterday. The night nurse stated that the patient received multiple doses of Lasix, and the shortness of breath (at rest) seemed to resolve. The patient remains short of breath with exertion. There is no history of cough or sputum production. There is no history of chest pain, coughing up of blood, or chest pain - made worse with deep respirations. As above, the patient did present with temperatures and chills. No known infectious exposure. These temperatures have resolved - with appropriate antibiotic therapy. No history of night sweats, weight loss, or appetite change prior to the above events. No history of calf pains. No history of syncope or diaphoresis. No history of recent travel or trauma. REVIEW OF SYSTEMS: No history of nausea or vomiting. No acute urinary symptoms. No new musculoskeletal complaints. Rest of the review of systems is negative. ALLERGIES: NO KNOWN ALLERGIES. SOCIAL HISTORY: Positive for tobacco and negative for alcohol. FAMILY HISTORY: No inheritable diseases. HOME MEDICATIONS: Include Ecotrin, Flomax, Lasix, and ranitidine. PHYSICAL EXAMINATION: SUBJECTIVE: The patient is not short of breath at rest. He appears comfortable this morning. VITAL SIGNS: Temperature 98.7, pulse 80, respirations 18, blood pressure 171/97, and oxygen saturation on nasal cannula is 95%. HEENT: Normocephalic and atraumatic. NECK: No JVD. CARDIOVASCULAR: Systolic ejection murmur at the lower left sternal border. No S3 or gallop. LUNGS: Minimal crackles at the bases. No rhonchi or wheezing. EXTREMITIES: Mild edema. No cyanosis. No clubbing. Calves are nontender to palpation. GASTROINTESTINAL: Abdomen is mildly distended. It is soft and nontender to palpation. Bowel sounds are positive. SKIN: No acute rash. NEUROLOGIC: Limited at the present time. PERTINENT LABORATORY DATA: Chest x-ray was done late last night reviewed. There is a mild increase in the pulmonary vascular congestive changes noted. There is also minimal linear atelectasis noted in the right middle lung zone. CBC: White count 19.3, hemoglobin 9.2, hematocrit 27.3, and platelets of 333. Complete metabolic profile: Carbon dioxide 18, anion gap 22, BUN 95, creatinine 8.6, glucose 113, calcium 8.2, magnesium 2.4, and AST 68. Rest of the metabolic profile is within normal limits. Urine cultures are positive for Escherichia coli. Blood cultures also positive for Escherichia coli. IMPRESSION: 1. Shortness of breath. 2. Gram-negative urosepsis. 3. Acute on chronic renal insufficiency. 4. Anion gap acidosis. 5. Gastrointestinal bleeding. 6. Mild anemia. PLAN: Again, I did discuss the case with the night nurse at length. I have also reviewed the chart at length. I have also discussed the case with the patient at length. The patient presented to [facility] - originally on 04/29/2017 - with main complaints of increasing weakness, abdominal pain, and dark loose stools for the previous 3 days. As above, in the emergency room, he was noted to be febrile. He was thus admitted for additional evaluation. The patient has done fairly well throughout the admission-- with resolution of his temperatures. However, yesterday, he became short of breath. The patient did receive several doses of Lasix, and he is not short of breath at the present time of my examination. In addition, there is no significant alveolar-arterial gradient. Oxygen saturation on nasal cannula is 95%. The patient is tentatively scheduled to get dialysis later today; however, he did pull out his dialysis catheter last night. I would continue with the antibiotic coverage as per infectious disease. Input from Dr. Flowers is noted. I would continue with the cardiology and renal evaluations. Inputs are also noted. The shortness of breath (of the patient) is probably multifactorial in nature, namely; Gram-negative urosepsis, worsening renal insufficiency, and anion gap acidosis may all contribute to his shortness of breath. Hopefully, some of these issues will be resolved after dialysis. Clinical status of the patient does remain very guarded, as does his overall prognosis. I will discuss the above with Dr. Brownlee this morning. Thank you very much for this pulmonary consultation. Partha Klein MD MTDD
[2017-05-07] MEDS: LamiVUDine 10 mg/ml Syringe PO SCH (10:57)
[2017-05-07] MEDS: Vancomycin 25 MG/ML PO SCH ×4 (11:00→22:30)
--- NOTE | 2017-05-07 11:34 | RAD ---
HISTORY: Right IJ Trialysis line placement COMPARISON: 05/06/2017 at 9:16 a.m. FINDINGS: The right IJV dialysis catheter terminates at the cavoatrial junction. LUNGS: The lungs are well inflated. There is multifocal atelectasis in the right lower lobe. PLEURA: No significant pleural effusion identified, no pneumothorax apparent. CARDIOVASCULAR: Normal. OSSEOUS STRUCTURES: No significant abnormalities. VISUALIZED UPPER ABDOMEN: Normal. OTHER FINDINGS: None. IMPRESSION: The right IJV dialysis catheter terminates at the cavoatrial junction. No pneumothorax. Multifocal subsegmental atelectasis in the right lower lobe.
--- NOTE | 2017-05-07 14:28 | PN ---
SUBJECTIVE: The patient is a 71-year-old -Algerian male with multiple medical issues including HIV, hypertension, prostate cancer, chronic kidney disease, and gout. The patient has history of dark-black stool that is why he came to the hospital for evaluation. The patient is having chronic kidney disease and he is on hemodialysis initially. Psych consult was called for evaluation and capacity to make decision about dialysis. The patient was seen over this weekend by Dr. Galindo, was found to have capacity to make that decision. The patient was followed up as per Dr. Brownlee's request. The patient was seen and examined. The patient presented to be irritable. The patient said that he knows that he has medical issues. He does not want to have hemodialysis here and he belongs to the hospital at [place] and the patient said that his primary care physician, Dr. Hopson, phone number is [phone], should be contacted. The patient also said that his sister, Celi, phone number is [phone], need to be involved. Medical team was notify about that. As per nursing report, the patient does not have any aggression or agitation. This service writer advisor had prolonged conversation with Dr. Brownlee. As per Dr. Brownlee, the patient acing paranoid and bizarre. The patient also removed for hemodialysis, appears to be more paranoid and suspicious. PHYSICAL EXAMINATION: VITAL SIGNS: This service writer advisor reviewed vital signs. Vital signs seem to be temperature 98.2, pulse is 112, blood pressure 184/96, respiration 20, and oxygen saturation is 95%. MEDICATIONS: Reviewed. The patient is on multiple medications for his medical issues. LABORATORY DATA: Reviewed. WBC is 19.3, hemoglobin is 9.2, and hematocrit 27.3. Chemistry reviewed. Creatinine 8.6, BUN 95, AST 68. Urinalysis showed infection and it was done on . As per previous history, the patient does not have history of mental illness. As per [facility] history, the patient denied history of suicidal attempt. MENTAL STATUS EXAMINATION: The patient appears to be alert, irritable. The patient knows that he is in the hospital. The patient knows that he had kidney disease. The patient was not able to say what is the outcome if he would not have dialysis. The patient said that he would like to have dialysis in [place]. At the same time, as per Dr. Brownlee's report, the patient was refusing to have hemodialysis in [place] either. Mood described "I want to get out of here." Affect was irritable. Thought process seems to be goal directed during the interview, but at least on the report, the patient could be paranoid and circumstantial. Thought content, the patient suspicious. As per Dr. Brownlee's report, the patient was acting paranoid and suspicious. The patient denied hearing voices, denied seeing things, The patient denied thoughts of harming himself or others. Denied intent or plan. Insight in regards of other medial issues seems to be fair. Judgment is illogical. Impulses are predictable. IMPRESSION: Most likely, the patient is in delirium stage. Right now, he has psychotic and paranoid ideations, which could affect the patient's decision making capacity. From this service writer advisor evaluation, even though that the patient was able to understand his diagnoses, but the patient was not able to comprehend what is the outcome if he would not have emergent hemodialysis. The patient has reasoning ability and indicating his preferences, but preferences does not make sense, and the patient has history of being noncompliant with hemodialysis even in [facility]. The patient has no insight and appreciation. At present moment, the patient lacks capacity to make decision about his treatment. PLAN: Family should be involved . Case was discussed with Dr. Brownlee. P.r.n. medications would be ordered in the computer. Geodon is excreted by liver and only 20% through the kidneys. In case of agitation, Geodon IM will be given 10 mg. Family involvement, primary care physician should be involved, and [place] case was discussed with Dr. Brownlee. Should they have any questions, give me a call back. At present moment, the patient lacks capacity to make decision about his dialysis. Thank you very much for letting me to participate in the care of your patient. Zoe Covarrubias MD
--- NOTE | 2017-05-07 14:28 | PN ---
DATE: 05/07/2017 SUBJECTIVE: He is having a rough go over the past 24 hours. He finally agreed to have dialysis, which he desperately needs and then after the access was put in, he pulled it out. Now, he is a bit paranoid and not trusting anybody or anything and I think he might be getting uremic. He needs to have dialysis. I tried to reaching out the family, nobody was at home, and left a message. He is on Apresoline, Catapres, Drisdol, DuoNeb, Epivir, Fergon, Lasix, Merrem I.V., morphine, Norvasc, Protonix, Renagel, sodium bicarbonate, Tylenol, vancomycin, Ziagen, and Zyloprim. He has multiple issues, sepsis, acute renal failure, C. diff colitis, pyelonephritis, swollen testicles swelling, prostate cancer, and HIV history. PHYSICAL EXAMINATION: VITAL SIGNS: 98.2 temperature, pulse has been 80 and 112, 184/96 blood pressure, 20 respiratory rate, and 95% O2 saturation on 2 L. HEENT: Head is atraumatic and normocephalic. He is looking at me, but talking strangely. HEART: Regular rate. LUNGS: Decreased breath sounds. Poor inspiration. ABDOMEN: Soft. No guarding. EXTREMITIES: Trace edema. LABORATORY DATA: .He has a 19.3 white count going up, he has got 9.2 hemoglobin, 27.3 hematocrit, and 333 platelets. He has 141 sodium, potassium 4.7, last BUN is 95, creatinine is 8.6, and BUN Blood sugar is 113, calcium is 8.2, magnesium is 2.4, total bilirubin 0.5, AST 68, ALT 53, and alkaline phosphatase 111. ASSESSMENT AND PLAN: He has got mild leukocytes in the urine. He had got Gram-negative rods in the urine culture. Escherichia coli in the urine culture. He is being seen by multiple physicians, infectious disease, psychiatry, cardiology, renal, GI, and urology. He is in trouble. I will reach out the family again. Hopefully, he will allow us to do dialysis, which he desperately needs. We will check labs tomorrow, but he refused today. Continue with aggressive treatment and care. Parag Brownlee DO [facility] # [id number] [place]
--- NOTE | 2017-05-07 15:57 | CP.PCM.PN ---
Subjective - Date & Time of Evaluation Date of Evaluation: 05/07/17 Time of Evaluation: 14:50 - Subjective Subjective: Comfortable, afebrile, not in distress. Objective - Vital Signs/Intake and Output Vital Signs (last 24 hours): Temp Pulse Resp BP Pulse Ox 98.2 F 112 H 20 184/96 H 95 05/07/17 08:02 05/07/17 10:56 05/07/17 08:02 05/07/17 10:56 05/07/17 08:02 Intake and Output: 05/07/17 05/07/17 06:59 18:59 Intake Total 200 Output Total 1200 Balance -1000 - Medications Medications: Current Medications Abacavir Sulfate (Ziagen) 300 mg PO BID [facility] Last Admin: 05/07/17 10:55 Dose: 300 mg Acetaminophen (Tylenol 325mg Tab) 650 mg PO Q4H PRN PRN Reason: Fever >100.4 F Last Admin: 05/04/17 18:05 Dose: 650 mg Albuterol/Ipratropium (Duoneb 3 Mg/0.5 Mg (3 Ml) Ud) 3 ml IH Q2H PRN PRN Reason: Shortness of Breath Last Admin: 05/06/17 22:27 Dose: 3 ml Allopurinol (Zyloprim) 300 mg PO DAILY [facility] Last Admin: 05/07/17 10:56 Dose: 300 mg Amlodipine Besylate (Norvasc) 10 mg PO DAILY [facility] Last Admin: 05/07/17 10:56 Dose: 10 mg Clonidine HCl (Catapres) 0.2 mg PO BID [facility] Last Admin: 05/07/17 10:56 Dose: 0.2 mg Ergocalciferol (Drisdol 50,000 Intl Units Cap) 1 cap PO Q7D [facility] Last Admin: 05/06/17 17:45 Dose: 1 cap Ferrous Gluconate (Fergon) 324 mg PO TID [facility] Last Admin: 05/07/17 10:56 Dose: 324 mg Furosemide (Lasix) 40 mg PO DAILY [facility] Last Admin: 05/07/17 10:56 Dose: 40 mg Hydralazine HCl (Apresoline) 25 mg PO Q4 PRN PRN Reason: Other Meropenem 250 mg/ Sodium (Chloride) 100 mls @ 100 mls/hr IVPB Q12H [facility] PRN Reason: Protocol Stop: 05/13/17 18:57 Last Admin: 05/07/17 05:57 Dose: 100 mls/hr Lamivudine (Epivir) 50 mg PO DAILY [facility] Last Admin: 05/07/17 10:57 Dose: 50 mg Morphine Sulfate (Morphine) 1 mg IVP Q4H PRN PRN Reason: Pain, severe (8-10) Last Admin: 05/04/17 18:47 Dose: 1 mg Pantoprazole Sodium (Protonix Ec Tab) 40 mg PO 0600 [facility] Last Admin: 05/07/17 05:52 Dose: Not Given Sevelamer HCl (Renagel) 800 mg PO TID [facility] Last Admin: 05/07/17 10:55 Dose: 800 mg Sodium Bicarbonate (Sodium Bicarbonate Tab) 1,300 mg PO TID [facility] Last Admin: 05/07/17 10:54 Dose: 1,300 mg Vancomycin HCl (Vancocin 25 Mg/Ml (Oral Use)) 250 mg PO QID [facility] PRN Reason: Protocol Stop: 05/19/17 10:43 Last Admin: 05/07/17 11:00 Dose: 250 mg Ziprasidone (Geodon Inj) 10 mg IM Q6H PRN; Protocol PRN Reason: agitation/psychosis Ziprasidone (Geodon Cap) 20 mg PO AMHS [facility] PRN Reason: Protocol Last Admin: 05/07/17 10:55 Dose: 20 mg - Labs Labs: 05/06/17 07:30 05/06/17 07:30 PT 12.7 Seconds (9.9-11.8) H 04/29/17 17:00 INR 1.18 (0.93-1.08) H 04/29/17 17:00 APTT 36.3 Seconds (23.7-30.8) H 04/29/17 17:00 - Constitutional Appears: Non-toxic, No Acute Distress - Head Exam Head Exam: NORMAL INSPECTION - ENT Exam ENT Exam: Mucous Membranes Moist - Neck Exam Neck Exam: absent: Meningismus - Respiratory Exam Respiratory Exam: Decreased Breath Sounds - Cardiovascular Exam Cardiovascular Exam: +S1, +S2 - GI/Abdominal Exam GI & Abdominal Exam: Soft. absent: Tenderness Assessment and Plan - Assessment and Plan (Free Text) Plan: Assessment severe sepsis with acute on chronic renal failure probably due to intra- abdominal infection (possible ileitis/colitis/proctitis), as well as pyelonephritis with E. coli bacteremia in this patient presenting with melena; ischemic colitis is also part of the differential diagnosis ; C. diff. 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
--- NOTE | 2017-05-07 22:37 | PN ---
FOLLOWUP NEPHROLOGY CONSULTATION CHIEF COMPLAINT: None at this time. REVIEW OF SYSTEMS AND HPI: The patient overall feels the same. Denies any nausea, vomiting. Denies any shortness of breath, denies any stomach pain at this time. Feels better in that regard. The patient had right IJ line placed in for dialysis, the patient which has removed. I discussed the dialysis with him again. He is asking me more questions about dialysis which I answered, this patient was agreeable. I asked him about why he removed his line, he said a different story and he will not repeat it in the future again. He is agreeable for dialysis to be initiated. Then he is continues to make urine. PHYSICAL EXAMINATION: GENERAL: The patient is ill appearing, not in acute distress, pleasant cooperative. VITAL SIGNS: Noted afebrile, pulse is 112, blood pressure 184/96. LUNGS: Bilateral vesicular breath sounds, clear now. CARDIOVASCULAR: S1 and S2 normal. Sinus tachycardia noted. ABDOMEN: Soft, minimal right lower quadrant tenderness was noted. Otherwise, no organomegaly. Abdomen distention noted. No guarding or rigidity. EXTREMITIES: No edema. PSYCHIATRIC: The patient has a flat affect. Judgement is appropriate. Insight is present. LYMPHATIC: No lymphadenopathy could be appreciated in the neck at this time. NEUROLOGIC: The patient is awake, alert and oriented x3. Follows all commands. No focal deficits noted at this time. LABORATORY DATA: Workup shows white blood cell count is 19.3, hemoglobin 9.2, platelet count is 333. Sodium is 141, potassium is 4.7, then bicarb is 18, creatinine is 8.6, glucose is 83. CURRENT MEDICATIONS: Reviewed. The patient at this time is on HAART medications, Tylenol, nebulizations, allopurinol 300 mg per day, amlodipine 10 mg, clonidine 0.2 mg b.i.d., vitamin D weekly, iron 324 mg t.i.d., Lasix 40 mg daily, hydralazine 50 mg q. 8, lamivudine 50 mg daily, meropenem, pantoprazole, sevelamer 800 mg t.i.d. and sodium bicarbonate 1300 mg t.i.d., Geodon and vancomycin p.o. and regard to his urine output, he made 1 L urine already and a 2 L output day before. ASSESSMENT: Condition is critical, acute kidney injury on underlying acute tubular necrosis which is nonoliguric, on underlying chronic kidney disease stage V with 500 mg proteinuria, now also with iron deficiency anemia, hypertension, gram-negative sepsis with Escherichia coli with pyelonephritis, history of carcinoma of prostate with left epididymitis, human immunodeficiency virus, on HAART; history of peripheral vascular disease, history of acidosis. RECOMMENDATIONS: Discussed the dialysis with the patient, he is agreeable. We will request Interventional Radiology for Permacath placement. The patient will be started on dialysis once Permacath has been placed. I appreciate psychiatric evaluation, the patient had a decisional capacity. Continue Lasix at this time. The patient was added hydralazine for his hypertension control. Continue to bicarb supplementation, phosphate binders and vitamin D supplementation at this time. Dose meds for GFR less than 10. Avoid nephrotoxin, NSAIDs and IV contrast. Please call if any questions. Yandel Arechiga MD
[2017-05-08] MEDS: Morphine 2 mg/ml ISec IVP PRN (01:37)
[2017-05-08] MEDS: Pantoprazole 40 mg EC Tab PO SCH (06:17)
[2017-05-08] MEDS ORDERED: Lidocaine 2% Inj (20ml) ONE (06:59)
[2017-05-08 07:04] LABS: HEMATOCRIT 30.9 % (42.0-52.0); MEAN CELL VOLUME 96.3 fl (80.0-105.0); MEAN CORPUSCULAR HEMOGLOBIN 32.4 pg (25.0-35.0); MEAN CORPUSCULAR HGB CONC 33.7 g/dl (31.0-37.0); MEAN PLATELET VOLUME 10.5 fl (7.0-11.0); RED CELL DISTRIBUTION WIDTH 14.7 % (11.5-14.5); WHITE BLOOD COUNT 17.9 10^3/ul (4.5-11.0)
[2017-05-08 07:09] LABS: INR 1.24 (0.93-1.08); PARTIAL THROMBOPLASTIN TIME 46.9 Seconds (23.7-30.8)
[2017-05-08] MEDS ORDERED: Midazolam 2 MG/2 ML VIAL ONE ×2 (07:11→08:20)
[2017-05-08 08:02] LABS: ALB/GLOB RATIO 0.8 (1.1-1.8); BILIRUBIN,TOTAL 0.6 mg/dL (0.2-1.3); CALCIUM 8.6 mg/dL (8.4-10.5); POTASSIUM 4.7 mmol/L (3.6-5.0); TOTAL PROTEIN 7.7 g/dL (5.8-8.3)
--- NOTE | 2017-05-08 08:20 | PN ---
DATE: 05/08/2017 SUBJECTIVE: The patient appears comfortable this morning. He is not short of breath at rest. PHYSICAL EXAMINATION: VITAL SIGNS: Temperature 98.0, pulse is approximately 90, respiratory rate 18, blood pressure 185/97. Oxygen saturation on nasal cannula is 95%. HEENT: Normocephalic and atraumatic. NECK: No JVD. CARDIOVASCULAR: Systolic ejection murmur at the lower left sternal border. No S3 gallop. LUNGS: Minimal crackles at the bases. No rhonchi. No wheezing. EXTREMITIES: Mild edema. No cyanosis. No clubbing. Calves are nontender to palpation. GASTROINTESTINAL: Abdomen is soft. It is mildly distended. It is nontender to palpation. Bowel sounds are positive. SKIN: No acute rash. NEUROLOGIC: Limited at the present time. IMPRESSION: 1. Shortness of breath. 2. Gram-negative urosepsis. 3. Acute on chronic renal insufficiency. 4. Anion gap acidosis. 5. Gastrointestinal bleeding. 6. Mild anemia. PLAN: The patient appears comfortable this morning. He is not short of breath at rest. I did discuss the case with the nurse at length. The nurse stated that the patient had a pretty good night. Hopefully, the patient will receive access today for his hemodialysis. Input by renal is noted. I would continue with the antibiotic coverage as per infectious disease. There are no temperatures noted. Repeat a.m. labs are pending. Input by urology is also noted. Clinical status of the patient is somewhat improved-compared to the initial presentation. However, unfortunately, the future status/prognosis for this patient does remain poor. I will discuss the above with Dr. Brownlee. Partha Klein MD MTDAnna
[2017-05-08] MEDS ORDERED: Iodixanol 320 MG/ML 100 ML BOTTLE IV ONE (08:48)
--- NOTE | 2017-05-08 09:16 | CP.PCM.PCO ---
Addendum Addendum: 05/08/17 09:15 pt is at the vascular now, as per collaterals after talking to his sister pt was in agreement for HD. will f/u
--- NOTE | 2017-05-08 12:49 | CP.PCM.PN ---
Subjective - Date & Time of Evaluation Date of Evaluation: 05/08/17 Time of Evaluation: 12:46 - Subjective Subjective: General Surgery Progress note for Dr. Cox PT S&E at bedside. SURESH. Patient was leaving for tunneled catheter in place by IR today. Patient underwent dialysis. Dr. Yang called to discuss AVF placement prior to discharge. Patient had no complaints at this time. Objective - Vital Signs/Intake and Output Vital Signs (last 24 hours): Temp Pulse Resp BP Pulse Ox 99.1 F 108 H 20 172/88 H 93 L 05/08/17 10:07 05/08/17 10:07 05/08/17 10:07 05/08/17 10:07 05/08/17 10:07 Intake and Output: 05/08/17 05/08/17 06:59 18:59 Intake Total 240 180 Output Total 400 Balance -160 180 - Medications Medications: Current Medications Abacavir Sulfate (Ziagen) 300 mg PO BID [facility] Last Admin: 05/07/17 17:28 Dose: 300 mg Acetaminophen (Tylenol 325mg Tab) 650 mg PO Q4H PRN PRN Reason: Fever >100.4 F Last Admin: 05/04/17 18:05 Dose: 650 mg Albuterol/Ipratropium (Duoneb 3 Mg/0.5 Mg (3 Ml) Ud) 3 ml IH Q2H PRN PRN Reason: Shortness of Breath Last Admin: 05/06/17 22:27 Dose: 3 ml Allopurinol (Zyloprim) 300 mg PO DAILY [facility] Last Admin: 05/07/17 10:56 Dose: 300 mg Amlodipine Besylate (Norvasc) 10 mg PO DAILY [facility] Last Admin: 05/07/17 10:56 Dose: 10 mg Clonidine HCl (Catapres) 0.2 mg PO BID [facility] Last Admin: 05/08/17 06:30 Dose: 0.2 mg Ergocalciferol (Drisdol 50,000 Intl Units Cap) 1 cap PO Q7D [facility] Last Admin: 05/06/17 17:45 Dose: 1 cap Ferrous Gluconate (Fergon) 324 mg PO TID [facility] Last Admin: 05/07/17 17:30 Dose: 324 mg Furosemide (Lasix) 40 mg PO DAILY [facility] Last Admin: 05/07/17 10:56 Dose: 40 mg Hydralazine HCl (Apresoline) 25 mg PO Q4 PRN PRN Reason: Other Last Admin: 05/08/17 03:55 Dose: 25 mg Hydralazine HCl (Apresoline) 50 mg PO Q8 [facility] Last Admin: 05/07/17 22:49 Dose: 50 mg Meropenem 250 mg/ Sodium (Chloride) 100 mls @ 100 mls/hr IVPB Q12H [facility]WAIN PRN Reason: Protocol Stop: 05/13/17 18:57 Last Admin: 05/08/17 06:29 Dose: 100 mls/hr Lamivudine (Epivir) 50 mg PO DAILY [facility] Last Admin: 05/07/17 10:57 Dose: 50 mg Morphine Sulfate (Morphine) 1 mg IVP Q4H PRN PRN Reason: Pain, severe (8-10) Last Admin: 05/08/17 01:37 Dose: 1 mg Pantoprazole Sodium (Protonix Ec Tab) 40 mg PO 0600 [facility] Last Admin: 05/08/17 06:17 Dose: 40 mg Sevelamer HCl (Renagel) 800 mg PO TID [facility] Last Admin: 05/07/17 17:29 Dose: 800 mg Sodium Bicarbonate (Sodium Bicarbonate Tab) 1,300 mg PO TID [facility] Last Admin: 05/07/17 17:29 Dose: 1,300 mg Vancomycin HCl (Vancocin 25 Mg/Ml (Oral Use)) 250 mg PO QID [facility] PRN Reason: Protocol Stop: 05/19/17 10:43 Last Admin: 05/07/17 22:30 Dose: 250 mg Vitamin B Complex/Vit C/Folic Acid (Nephro-Christel) 1 tab PO 0800 [facility] Ziprasidone (Geodon Inj) 10 mg IM Q6H PRN; Protocol PRN Reason: agitation/psychosis Ziprasidone (Geodon Cap) 20 mg PO AMHS DWAIN PRN Reason: Protocol Last Admin: 05/07/17 22:49 Dose: 20 mg - Labs Labs: 05/08/17 06:54 05/08/17 06:54 PT 13.4 Seconds (9.9-11.8) H 05/08/17 06:54 INR 1.24 (0.93-1.08) H 05/08/17 06:54 APTT 46.9 Seconds (23.7-30.8) H 05/08/17 06:54 - Constitutional Appears: Non-toxic - Head Exam Head Exam: NORMAL INSPECTION - Eye Exam Eye Exam: EOMI, Normal appearance - ENT Exam ENT Exam: Mucous Membranes Moist - Neck Exam Neck Exam: Full ROM - Respiratory Exam Respiratory Exam: Clear to Ausculation Bilateral, NORMAL BREATHING PATTERN. absent: Accessory Muscle Use, Respiratory Distress - Cardiovascular Exam Cardiovascular Exam: Tachycardia, REGULAR RHYTHM, +S1, +S2. absent: Bradycardia - GI/Abdominal Exam GI & Abdominal Exam: Soft, Normal Bowel Sounds. absent: Tenderness, Rebound - Extremities Exam Extremities Exam: Full ROM, Normal Inspection. absent: Calf Tenderness, Pedal Edema - Neurological Exam Neurological Exam: Alert, Awake, Oriented x3 - Skin Skin Exam: Dry, Intact, Normal Color, Warm Assessment and Plan - Assessment and Plan (Free Text) Assessment: 71yo M with PMHx of HIV, HTN, CKD, PVD, here with gram negative sepsis, likely urosepsis, worsening renal failure tunnel catheter placed by IR today Plan: c/w current medical management per ID, medicine team continue Merrem day 9 and PO Vancomyin per ID continue antiretroviral therapy (lamivudine, abacavir on formulary but dolutegravir should be taken by patient from his home supply) per ID consider AVF placement, vein mapping for viability Diet: renal diet per primary d/w Dr. Kenny Campos, DO PGY1 surgery pager: [phone]
--- NOTE | 2017-05-08 13:55 | PN ---
DATE: SUBJECTIVE: I saw Mr. Sagastume status post hemodialysis and is alert and comfortable. MEDICATIONS: He is on Apresoline, Catapres, Drisdol, DuoNeb, Epivir, Fergon, Geodon, Lasix, Merrem IV, morphine, Norvasc, Protonix, Renagel, p.o. vancomycin, sodium bicarbonate, Tylenol, Ziagen, and Zyloprim. PHYSICAL EXAMINATION GENERAL: He is alert and oriented, better mentally. VITAL SIGNS: Temperature of 99.1, pulse of 108, blood pressure of 172/88, respiratory rate of 20, and O2 saturation of 90% on 3 liters nasal cannula. HEENT: Throat is moist. NECK: Supple. HEART: Regular rate. LUNGS: Decreased breath sounds, but clear. ABDOMEN: Soft. EXTREMITIES: No edema. He had dialysis. LABORATORY DATA: He has a 17.9 white count, I feel it continued to come down, hemoglobin of 10.4, hematocrit of 30.9 with platelets of 46. Sodium is 147, potassium is 4.7, BUN is up to 102, creatinine up to 9 that was this morning, had dialysis hopefully will improve. Sugar is 105, calcium is 8.6, total bilirubin is 0.6, AST is 64, ALT is 42, alkaline phosphatase is 152, and total protein is 7.7. He has Gram-negative rods in the urine. He has E. coli. ASSESSMENT AND PLAN: He was seen by psychiatry, pulmonary, infectious diseases, and renal. I believe he will eventually go to [facility] for physical therapy and hemodialysis there. He has severe sepsis, acute on chronic renal failure, intraabdominal infection probably colitis, pyelonephritis, Escherichia coli bacteremia, melena, ischemic colitis, and Clostridium difficile-associated diarrhea. He is on Merrem intravenously, vancomycin p.o. and now on dialysis. Continue aggressive treatment and care. Check his laboratories tomorrow. Parag Brownlee DO MTDAnna
--- NOTE | 2017-05-08 13:57 | CP.PCM.PN ---
Subjective - Date & Time of Evaluation Date of Evaluation: 05/08/17 Time of Evaluation: 13:56 - Subjective Subjective: Dialysis note Pt seen during dialysis today is first dialysis treatment pt has permacath for the access tolerating dialysis well no new complaints vitals noted will plan for 2nd session tomorrow order for HD placed surgery follow up for AVF placement Objective - Vital Signs/Intake and Output Vital Signs (last 24 hours): Temp Pulse Resp BP Pulse Ox 99.1 F 108 H 20 172/88 H 93 L 05/08/17 10:07 05/08/17 10:07 05/08/17 10:07 05/08/17 10:07 05/08/17 10:07 Intake and Output: 05/08/17 05/08/17 06:59 18:59 Intake Total 240 180 Output Total 400 Balance -160 180 - Medications Medications: Current Medications Abacavir Sulfate (Ziagen) 300 mg PO BID [facility] Last Admin: 05/07/17 17:28 Dose: 300 mg Acetaminophen (Tylenol 325mg Tab) 650 mg PO Q4H PRN PRN Reason: Fever >100.4 F Last Admin: 05/04/17 18:05 Dose: 650 mg Albuterol/Ipratropium (Duoneb 3 Mg/0.5 Mg (3 Ml) Ud) 3 ml IH Q2H PRN PRN Reason: Shortness of Breath Last Admin: 05/06/17 22:27 Dose: 3 ml Allopurinol (Zyloprim) 300 mg PO DAILY [facility] Last Admin: 05/07/17 10:56 Dose: 300 mg Amlodipine Besylate (Norvasc) 10 mg PO DAILY [facility] Last Admin: 05/07/17 10:56 Dose: 10 mg Clonidine HCl (Catapres) 0.2 mg PO BID [facility] Last Admin: 05/08/17 06:30 Dose: 0.2 mg Ergocalciferol (Drisdol 50,000 Intl Units Cap) 1 cap PO Q7D [facility] Last Admin: 05/06/17 17:45 Dose: 1 cap Ferrous Gluconate (Fergon) 324 mg PO TID [facility] Last Admin: 05/07/17 17:30 Dose: 324 mg Furosemide (Lasix) 40 mg PO DAILY [facility] Last Admin: 05/07/17 10:56 Dose: 40 mg Hydralazine HCl (Apresoline) 25 mg PO Q4 PRN PRN Reason: Other Last Admin: 05/08/17 03:55 Dose: 25 mg Hydralazine HCl (Apresoline) 50 mg PO Q8 [facility] Last Admin: 05/07/17 22:49 Dose: 50 mg Meropenem 250 mg/ Sodium (Chloride) 100 mls @ 100 mls/hr IVPB Q12H [facility]WAIN PRN Reason: Protocol Stop: 05/13/17 18:57 Last Admin: 05/08/17 06:29 Dose: 100 mls/hr Lamivudine (Epivir) 50 mg PO DAILY [facility] Last Admin: 05/07/17 10:57 Dose: 50 mg Morphine Sulfate (Morphine) 1 mg IVP Q4H PRN PRN Reason: Pain, severe (8-10) Last Admin: 05/08/17 01:37 Dose: 1 mg Pantoprazole Sodium (Protonix Ec Tab) 40 mg PO 0600 [facility] Last Admin: 05/08/17 06:17 Dose: 40 mg Sevelamer HCl (Renagel) 800 mg PO TID [facility] Last Admin: 05/07/17 17:29 Dose: 800 mg Sodium Bicarbonate (Sodium Bicarbonate Tab) 1,300 mg PO TID [facility] Last Admin: 05/07/17 17:29 Dose: 1,300 mg Vancomycin HCl (Vancocin 25 Mg/Ml (Oral Use)) 250 mg PO QID [facility] PRN Reason: Protocol Stop: 05/19/17 10:43 Last Admin: 05/07/17 22:30 Dose: 250 mg Vitamin B Complex/Vit C/Folic Acid (Nephro-Christel) 1 tab PO 0800 [facility] Ziprasidone (Geodon Inj) 10 mg IM Q6H PRN; Protocol PRN Reason: agitation/psychosis Ziprasidone (Geodon Cap) 20 mg PO AMHS [facility] PRN Reason: Protocol Last Admin: 05/07/17 22:49 Dose: 20 mg - Labs Labs: 05/08/17 06:54 05/08/17 06:54 PT 13.4 Seconds (9.9-11.8) H 05/08/17 06:54 INR 1.24 (0.93-1.08) H 05/08/17 06:54 APTT 46.9 Seconds (23.7-30.8) H 05/08/17 06:54
--- NOTE | 2017-05-08 14:08 | PN ---
DATE: FOLLOWUP NEPHROLOGY NOTE CHIEF COMPLAINT: None at this time. HISTORY OF PRESENT ILLNESS AND REVIEW OF SYSTEMS: Noted overnight event. The patient was seen in his room. He was status post PermCath placement by surgery this morning. He was somewhat sleepy because of the sedation anesthesia given for the procedure. He denies any shortness of breath or pain at this time. PHYSICAL EXAMINATION: GENERAL: The patient is again ill-appearing, not in acute distress. He is cooperative. VITAL SIGNS: Noted afebrile, pulse is 108 and blood pressure is 172/88. LUNGS: Bilaterally clear anteriorly. CARDIOVASCULAR: S1 and S2 normal. Sinus tachycardia. ABDOMEN: Soft and nontender at this time. EXTREMITIES: No edema. PSYCHIATRIC: The patient has a flat affect with appropriate judgment and insight. LABORATORY DATA: Workup shows white blood cell count of 17.9, hemoglobin of 10.4, and platelet count of 486. Sodium is 147, potassium is 4.7, bicarbonate is 18, creatinine is 9, BUN is 102, and glucose is 105. His recent blood cultures have been negative. CURRENT MEDICATIONS: Reviewed, which showed the patient is on HAART medication, Tylenol, nebulization, allopurinol 300 mg per day, amlodipine 10 mg per day, clonidine 0.2 mg b.i.d., vitamin D weekly, iron mg t.i.d., Lasix 40 daily, hydralazine 50 q. 8 hours, lamivudine daily, meropenem q. 12 hours, pantoprazole, sevelamer, sodium bicarbonate t.i.d., and Geodon. ASSESSMENT: The patient with acute kidney injury likely acute tubular necrosis on underlying chronic kidney disease stage V, appeared to be end-stage renal disease now. The patient has a 500 mg proteinuria with iron deficiency anemia, hypertension, Gram-negative sepsis with Escherichia coli with pyelonephritis, history of carcinoma of prostate, left epididymitis, human immunodeficiency virus, on highly active antiretroviral therapy, and history of peripheral vascular disease. RECOMMENDATIONS: Dialysis planned for today. He had PermCath placement done. Then also we will request Surgery to consider for AV replacement and vein mapping. Discussed with the ID and no contraindications from ID prospective to undergo fistula placement. Continue with current medication and blood pressure medication. Hopefully, we will be able to stop his bicarb supplementation in next few days. Discussed with the primary team. All questions were answered. Yandel Arechiga MD
[2017-05-08] MEDS: Vancomycin 25 MG/ML PO SCH ×3 (16:14→22:33)
[2017-05-08] MEDS: LamiVUDine 10 mg/ml Syringe PO SCH (17:37)
--- NOTE | 2017-05-08 19:27 | VASCULAR ---
PROCEDURE: Ultrasound and fluoroscopic tunneled right IJ dialysis catheter. CLINICAL HISTORY: ESRD HIV positive. Needs dialysis access. PHYSICIAN(S): Emmanuel Good M.D. TECHNIQUE: The relative risks and indications for the procedure were explained to the patient and informed written consent obtained. The patient was placed supine on the arteriography table and the right neck/chest was prepped and draped in the usual sterile fashion. 1% Xylocaine was used to anesthetize the skin and soft tissues at the puncture site. Conscious sedation and monitoring were provided throughout the procedure by a nurse. Under direct ultrasound guidance, the rightinternal jugular vein was punctured with a micropuncture set. A 0.035 Glidewire was advanced into the IVC. Sequential dilatation was performed with subsequent placement of a 28cm Hess II catheter with its tip in the right atrium. A retrograde tunnel below the right clavicle was performed. The catheter was trimmed and the hub attached. Both ports aspirate and inject easily. The catheter was secured and a dressing applied. The patient tolerated the procedure well. IMPRESSION: 1. Ultrasound and fluoroscopically placed right IJ tunneled dialysis catheter.
[2017-05-09 07:28] LABS: HEMATOCRIT 31.2 % (42.0-52.0); MEAN CELL VOLUME 96.6 fl (80.0-105.0); MEAN CORPUSCULAR HEMOGLOBIN 32.5 pg (25.0-35.0); MEAN CORPUSCULAR HGB CONC 33.7 g/dl (31.0-37.0); MEAN PLATELET VOLUME 10.3 fl (7.0-11.0); RED CELL DISTRIBUTION WIDTH 14.6 % (11.5-14.5); WHITE BLOOD COUNT 14.5 10^3/ul (4.5-11.0)
[2017-05-09 07:51] LABS: ALB/GLOB RATIO 0.8 (1.1-1.8); BILIRUBIN,TOTAL 0.7 mg/dL (0.2-1.3); CALCIUM 8.8 mg/dL (8.4-10.5); PHOSPHOROUS 9.1 mg/dL (2.5-4.5); POTASSIUM 4.6 mmol/L (3.6-5.0); TOTAL PROTEIN 7.6 g/dL (5.8-8.3)
[2017-05-09] MEDS: Pantoprazole 40 mg EC Tab PO SCH (08:33)
[2017-05-09] MEDS: Multivitamin Vitamin B Complex (Nephro-Vite) Tab PO SCH (08:34)
--- NOTE | 2017-05-09 09:24 | CT ---
PROCEDURE: CT HEAD WITHOUT CONTRAST. HISTORY: rt arm weakness COMPARISON: Head CT without contrast 04/29/2017. TECHNIQUE: Axial computed tomography images were obtained through the head/brain without intravenous contrast. Radiation dose: Total exam DLP = 823 mGy-cm. This CT exam was performed using one or more of the following dose reduction techniques: Automated exposure control, adjustment of the mA and/or kV according to patient size, and/or use of iterative reconstruction technique. FINDINGS: HEMORRHAGE: No intracranial hemorrhage. BRAIN: Stable diffuse cerebral atrophy chronic microangiopathy are reiterated the current examination with no interval cortical lucency appreciated or mass effect to suggest acute or subacute brain infarction at this time. No interval suspicious extra-axial fluid collection. VENTRICLES: Unremarkable. No hydrocephalus. CALVARIUM: Unremarkable. PARANASAL SINUSES: Unremarkable as visualized. No significant inflammatory changes. MASTOID AIR CELLS: Unremarkable as visualized. No inflammatory changes. OTHER FINDINGS: None. IMPRESSION: Stable age related neuro degenerative changes are appreciated without acute intracranial findings by standard CT criteria.
[2017-05-09] MEDS: Vancomycin 25 MG/ML PO SCH ×4 (10:44→22:12)
[2017-05-09] MEDS: LamiVUDine 10 mg/ml Syringe PO SCH (10:47)
--- NOTE | 2017-05-09 11:17 | PN ---
DATE: SUBJECTIVE: I saw him in bed today, fairly comfortable. He is very alert and talking this morning and he tells me that his right arm is swollen and cannot move it and that he has been doing that for whole time he has been here. This is the first I heard of it, and he has been moving his arm, I have seen moving his arm; I think it is infiltrated. The nurse said IV, I tried to discuss with the nurse. He did have dialysis yesterday, and he has gone for dialysis yesterday. I think that is making big difference with him mentally. PHYSICAL EXAMINATION VITAL SIGNS: Temperature 98.1, 100 pulse, 176/88 blood pressure, 20 respiratory rate, 96% O2 sat on room air. HEENT: Head is atraumatic, normocephalic. Throat moist.. NECK: Supple. HEART: Regular rate. LUNGS: Decreased breath sounds are clear. ABDOMEN: Soft. EXTREMITIES: The right arm is a bit swollen compared to the left, he is not moving. He said it hurts him, I am not sure why this happened, it could be infiltration. I did a CAT scan of his brain, called the neurologist and made sure I am not missing any stroke. He can stick out his tongue midline. He can smile. No facial changes. I do think he is more alert than the other day and talking more properly status post dialysis. MEDICATIONS: He is taking Apresoline, Catapres, Drisdol, DuoNeb, Epivir, Fergon,Geodon, Lasix, Merrem IV, morphine, Vyvanse, Norvasc, Protonix, Renagel, sodium bicarbonate, Tylenol, vancomycin, Ziagen, Zyloprim. LABORATORY DATA: He has a 147 sodium, potassium 4.6, BUN is down to 79, creatinine down to 7.5. He is going for dialysis today again, sugar is 100, calcium is 8.8, phosphorus is up to 9.1. Hopefully dialysis will help that until this point, AST is 69, ALT is 35, alk phos 144, total protein 7.6. He has a 14.5 white count not the lowest he has ever had for the infection, 10.5 hemoglobin, 31.2 hematocrit with a 493 platelets. He is being seen by Renal, Psychiatry, Pulmonary, Vascular, Neurology, Cardiology. ASSESSMENT AND PLAN: He has had multiple problems. He is septic, acute renal failure, Clostridium difficile colitis, pyelonephritis, urinary tract infection. His swollen testicles will hopefully come down with dialysis. He has prostate cancer history and HIV positive. I think he will likely need to go [facility] when he is stable when he gets okay from Renal and Infectious Disease for physical therapy, and continue his dialysis there. I discussed this with him, I am not sure if he can grasp the plan yet. We will check his labs, continue with physical therapy, get him out of bed to chair and elevate the right arm and make sure there is no stroke involved with the CAT scan of the brain and neuro evaluation, continue with aggressive treatment of care. Parag Brownlee DO
--- NOTE | 2017-05-09 12:15 | PN ---
DATE: 05/09/2017 PULMONARY NOTE SUBJECTIVE: The patient appears comfortable this morning. He is not short of breath at rest. PHYSICAL EXAMINATION: VITAL SIGNS: Temperature is 98.1, pulse 84, respirations 18-20, and blood pressure 148/87. Oxygen saturation on nasal cannula is 96%. HEENT: Normocephalic and atraumatic. NECK: No JVD. CARDIOVASCULAR: Systolic ejection murmur at the lower left sternal border. No S3 gallop. LUNGS: Minimal crackles at the bases. No rhonchi. No wheezing. EXTREMITIES: Less edema. No cyanosis. No clubbing. Calves are nontender to palpation. GASTROINTESTINAL: Abdomen is soft. It is mildly distended. It is nontender to palpation. Bowel sounds are positive. SKIN: No acute rash. NEUROLOGIC: Limited at the present time. IMPRESSION: 1. Shortness of breath - improved. 2. Gram-negative urosepsis. 3. Kupcs-vs-ffhyxma renal insufficiency. 4. Anion gap acidosis. 5. Gastrointestinal bleeding. 6. Mild anemia. PLAN: The patient appears comfortable this morning. He is not short of breath at rest. He does state to feeling better overall. I did discuss the case with the night nurse at length. The patient did get dialyzed yesterday. Repeat morning labs are pending. I would continue with the antibiotic coverage as per Infectious Disease. There are no temperatures noted. The leukocytosis is decreased. I would continue with the renal evaluation. Inputs are noted. Clinical status of the patient is improved. However, again, the overall status/prognosis for this patient does remain poor. I will discuss the above with Dr. Brownlee. Partha Klein MD MTDAnna
--- NOTE | 2017-05-09 16:30 | CP.PCM.PN ---
Subjective - Date & Time of Evaluation Date of Evaluation: 05/09/17 Time of Evaluation: 08:00 - Subjective Subjective: General Surgery Progress note for Dr. Cox PT S&E at bedside. NAEON. Patient tolerated dialysis yesterday. Dr. Arechiga suggested AVF placement. Patient placed on Left arm precautions after rounding with Dr. Cox. Patient had some frustrations relieved by explaining the purpose of AVF. PThad no other complaints at this time Objective - Vital Signs/Intake and Output Vital Signs (last 24 hours): Temp Pulse Resp BP Pulse Ox 97.7 F 90 20 152/91 H 92 L 05/09/17 08:00 05/09/17 08:00 05/09/17 08:00 05/09/17 08:00 05/09/17 08:00 Intake and Output: 05/09/17 05/09/17 06:59 18:59 Intake Total 240 360 Output Total 400 Balance -160 360 - Medications Medications: Current Medications Abacavir Sulfate (Ziagen) 300 mg PO BID [facility] Last Admin: 05/09/17 10:45 Dose: Not Given Acetaminophen (Tylenol 325mg Tab) 650 mg PO Q4H PRN PRN Reason: Fever >100.4 F Last Admin: 05/04/17 18:05 Dose: 650 mg Albuterol/Ipratropium (Duoneb 3 Mg/0.5 Mg (3 Ml) Ud) 3 ml IH Q2H PRN PRN Reason: Shortness of Breath Last Admin: 05/06/17 22:27 Dose: 3 ml Allopurinol (Zyloprim) 300 mg PO DAILY [facility] Last Admin: 05/09/17 10:45 Dose: Not Given Amlodipine Besylate (Norvasc) 10 mg PO DAILY [facility] Last Admin: 05/09/17 10:44 Dose: Not Given Clonidine HCl (Catapres) 0.2 mg PO BID [facility] Last Admin: 05/09/17 10:42 Dose: Not Given Ergocalciferol (Drisdol 50,000 Intl Units Cap) 1 cap PO Q7D [facility] Last Admin: 05/06/17 17:45 Dose: 1 cap Ferrous Gluconate (Fergon) 324 mg PO TID [facility] Last Admin: 05/09/17 14:31 Dose: Not Given Hydralazine HCl (Apresoline) 25 mg PO Q4 PRN PRN Reason: Other Last Admin: 05/08/17 03:55 Dose: 25 mg Hydralazine HCl (Apresoline) 50 mg PO Q8 [facility] Last Admin: 05/09/17 14:30 Dose: Not Given Meropenem 250 mg/ Sodium (Chloride) 100 mls @ 100 mls/hr IVPB Q12H [facility] PRN Reason: Protocol Stop: 05/13/17 18:57 Last Admin: 05/09/17 08:33 Dose: Not Given Indomethacin (Indocin) 25 mg PO TID [facility] Last Admin: 05/09/17 14:26 Dose: Not Given Lamivudine (Epivir) 50 mg PO DAILY [facility] Last Admin: 05/09/17 10:47 Dose: Not Given Morphine Sulfate (Morphine) 1 mg IVP Q4H PRN PRN Reason: Pain, severe (8-10) Last Admin: 05/08/17 01:37 Dose: 1 mg Pantoprazole Sodium (Protonix Ec Tab) 40 mg PO 0600 [facility] Last Admin: 05/09/17 08:33 Dose: Not Given Sevelamer HCl (Renagel) 1,600 mg PO TID [facility] Vancomycin HCl (Vancocin 25 Mg/Ml (Oral Use)) 250 mg PO QID [facility] PRN Reason: Protocol Stop: 05/19/17 10:43 Last Admin: 05/09/17 14:31 Dose: Not Given Vitamin B Complex/Vit C/Folic Acid (Nephro-Christel) 1 tab PO 0800 [facility] Last Admin: 05/09/17 08:34 Dose: Not Given Ziprasidone (Geodon Inj) 10 mg IM Q6H PRN; Protocol PRN Reason: agitation/psychosis Ziprasidone (Geodon Cap) 20 mg PO AMHS [facility] PRN Reason: Protocol Last Admin: 05/09/17 10:42 Dose: Not Given - Labs Labs: 05/09/17 06:20 05/09/17 06:20 PT 13.4 Seconds (9.9-11.8) H 05/08/17 06:54 INR 1.24 (0.93-1.08) H 05/08/17 06:54 APTT 46.9 Seconds (23.7-30.8) H 05/08/17 06:54 - Constitutional Appears: Non-toxic - Head Exam Head Exam: NORMAL INSPECTION - Eye Exam Eye Exam: EOMI, Normal appearance - ENT Exam ENT Exam: Mucous Membranes Moist - Neck Exam Neck Exam: Full ROM - Respiratory Exam Respiratory Exam: NORMAL BREATHING PATTERN. absent: Accessory Muscle Use, Respiratory Distress - Cardiovascular Exam Cardiovascular Exam: REGULAR RHYTHM, +S1, +S2. absent: Bradycardia, Tachycardia - GI/Abdominal Exam GI & Abdominal Exam: Soft. absent: Tenderness - Extremities Exam Extremities Exam: absent: Joint Swelling, Pedal Edema - Skin Skin Exam: Dry, Normal Color, Warm Additional comments: permacath in place. dressings c/d/i Assessment and Plan - Assessment and Plan (Free Text) Assessment: 71yo M with PMHx of HIV, HTN, CKD, PVD, here with gram negative sepsis, likely urosepsis, worsening renal failure tunnel catheter placed by IR 05/08 Plan: c/w current medical management per ID, medicine team continue Merrem day 9 and PO Vancomyin per ID continue antiretroviral therapy (lamivudine, abacavir on formulary but dolutegravir should be taken by patient from his home supply) per ID consider AVF placement, vein mapping for viability, left arm precautions Diet: renal diet per primary d/w Dr. Kenny Campos, DO PGY1 surgery pager: [phone]
--- NOTE | 2017-05-09 21:23 | PN ---
FOLLOWUP NEPHROLOGY PROGRESS NOTE CHIEF COMPLAINT: Right hand pain and swelling. HPI and REVIEW OF SYSTEMS: The patient still the same. He has dialysis, taken in today. Denies any shortness of breath. Does report some leg swelling and chest pain and palpitations, still reports pain in the abdomen area. PHYSICAL EXAMINATION GENERAL: The patient appeared comfortable, although ill but not in acute distress. VITAL SIGNS: Stable. Afebrile, pulse 90, blood pressure 152/91. LUNGS: Bilateral vesicular breath sounds, clear anteriorly. CARDIOVASCULAR: S1, S2 normal. No rub. ABDOMEN: Soft, mild tenderness in the lower abdomen area but mostly improved. No organomegaly could be appreciated. EXTREMITIES: No edema noted at this time. SKIN: No rash or ulcerations. LYMPHATIC: No lymphadenopathy in the neck. PSYCHIATRIC: The patient has a flat affect. Has appropriate judgement and insight. NEUROLOGIC: Alert and oriented x3. No focal deficits. LABORATORY DATA: Workup shows white blood cell count 14.5, hemoglobin 10.5, platelet count is 493. Sodium 147, potassium 4.6, creatinine 7.5, BUN 79, glucose 100. His phosphorus is 9.1. CURRENT MEDICATIONS: Also reviewed. ASSESSMENT: Acute kidney injury on underlying chronic kidney disease, stage V, now started on dialysis. Likely, the patient with end-stage renal disease now. The patient had anemia; hypertension; gram-negative sepsis with Escherichia coli with pyelonephritis; history of carcinoma prostate; left epididymitis; human immunodeficiency virus, on HAART; history of peripheral vascular disease. Also, the patient with acidosis, vitamin D deficiency, and secondary hyperparathyroidism and hyperphosphatemia. PLAN: The patient for second session of dialysis today. We will plan for third session of dialysis tomorrow. Vascular also following for AVF placement. We will increase phosphate binder. Then at this time can discontinue his bicarb supplementation. Then, also discontinue his Lasix. Continue iron supplementation. We will consider RESHMA if hemoglobin drops less than 10 and continue multivitamin per day and also vitamin D supplementation. After another one or two session of dialysis once he tolerates well, could consider the patient for outpatient discharge planning and outpatient dialysis placement. All questions were answered. Yandel Arechiga MD
--- NOTE | 2017-05-10 00:01 | CON ---
DATE: HISTORY OF PRESENT ILLNESS: This is 71-year-old black male with past medical history of hypertension, prostate cancer, chronic kidney disease on hemodialysis and came to hospital with increasing weakness, abdominal pain, and patient also having some weakness of the right upper extremity and swelling of the right wrist and pain on movement. PAST MEDICAL HISTORY: As above. Hypertension, prostate cancer, chronic kidney disease, and HIV. The patient is on dialysis. PHYSICAL EXAMINATION: HEENT: Normocephalic, and atraumatic. NECK: Supple. NEUROLOGIC: Awake and oriented to self and place. Cranial nerve II to XII were tested. Pupils reactive. Spontaneous movement of the extremities noted except right upper extremity, pain at the right wrist and deep tendon reflex is 1+. Both plantars are downgoing. Sensory appears intact. Cerebellar and gait deferred. IMPRESSION: The patient is a 71-year-old with multiple medical problems and admitted with shortness of breath and found to have possible urosepsis on dialysis and possible gastrointestinal bleed and also for right upper extremity weakness, which is possibly secondary to pain in the right wrist and continue present management. We will followup, we might give him indomethacin 50 mg p.o. daily and we will followup. Jem Aggarwal MD
[2017-05-10] MEDS: Pantoprazole 40 mg EC Tab PO SCH (06:26)
[2017-05-10 07:12] LABS: HEMATOCRIT 28.7 % (42.0-52.0); MEAN CELL VOLUME 97.6 fl (80.0-105.0); MEAN CORPUSCULAR HEMOGLOBIN 32.7 pg (25.0-35.0); MEAN CORPUSCULAR HGB CONC 33.4 g/dl (31.0-37.0); MEAN PLATELET VOLUME 10.6 fl (7.0-11.0); RED CELL DISTRIBUTION WIDTH 14.4 % (11.5-14.5); WHITE BLOOD COUNT 12.7 10^3/ul (4.5-11.0)
[2017-05-10 07:20] LABS: ALB/GLOB RATIO 0.7 (1.1-1.8); BILIRUBIN,TOTAL 0.6 mg/dL (0.2-1.3); CALCIUM 8.6 mg/dL (8.4-10.5); MAGNESIUM 2.2 mg/dL (1.7-2.2); PHOSPHOROUS 7.6 mg/dL (2.5-4.5); POTASSIUM 4.1 mmol/L (3.6-5.0); TOTAL PROTEIN 7.3 g/dL (5.8-8.3)
[2017-05-10 07:59] LABS: BASO # 0.02 K/mm3 (0.0-2.0); BASO % 0.2 % (0.0-3.0); EOS # 0.3 (0.0-0.7); EOS % 2.1 % (1.5-5.0); GRAN # 9.17 (1.4-6.5); GRAN % 69.8 % (50.0-68.0); LYMPH # 2.2 (1.2-3.4); LYMPH % 16.5 % (22.0-35.0); MONO # 1.5 (0.1-0.6); MONO % 11.4 % (1.0-6.0)
--- NOTE | 2017-05-10 08:20 | PN ---
DATE: 05/10/2017 SUBJECTIVE: The patient appears comfortable this morning. He is not short of breath at rest. PHYSICAL EXAMINATION: VITAL SIGNS: Temperature is 99.0, pulse this morning 88, respirations 18/20, and blood pressure 139/93. Oxygen saturation on nasal cannula is 95%. HEENT: Normocephalic and atraumatic. NECK: No JVD. CARDIOVASCULAR: Systolic ejection murmur at the lower left sternal border. No S3 gallop. LUNGS: Minimal crackles at the bases. No rhonchi. No wheezing. EXTREMITIES: Less edema. No cyanosis. No clubbing. Calves are nontender to palpation. GASTROINTESTINAL: Abdomen is soft. It is less distended. It is nontender to palpation. Bowel sounds are positive. SKIN: No acute rash. NEUROLOGIC: Limited at the present time. IMPRESSION: 1. Shortness of breath-resolving. 2. Gram-negative urosepsis. 3. Guosg-yq-htsmftk renal insufficiency. 4. Anion gap acidosis. 5. Gastrointestinal bleeding. 6. Mild anemia. PLAN: The patient appears much more comfortable this morning. He is not short of breath at rest. He does state that he is feeling much better overall. He is for repeat dialysis this morning. On physical exam, there is no significant bronchospasm present. In addition, there is no significant alveolar-arterial gradient. I would continue with the hemodialysis as per renal. Their input is noted. Clinical status of the patient is certainly improved-compared to earlier in the week. However, again, the overall status/prognosis for this chronically ill patient does remain very guarded at best. I will discuss the above with Dr. Brownlee. Partha Klein MD LORENZA
[2017-05-10 08:36] VITALS: RESP 20
[2017-05-10] MEDS: Vancomycin 25 MG/ML PO SCH ×5 (11:22→23:20)
[2017-05-10] MEDS: LamiVUDine 10 mg/ml Syringe PO SCH (11:24)
[2017-05-10] MEDS: Multivitamin Vitamin B Complex (Nephro-Vite) Tab PO SCH (11:24)
[2017-05-10] MEDS: cefTRIAXone 2 GM IN NS 2 GM/100 ML BAG IVPB SCH (12:22)
--- NOTE | 2017-05-10 12:32 | CP.PCM.PN ---
Subjective - Date & Time of Evaluation Date of Evaluation: 05/10/17 Time of Evaluation: 12:28 - Subjective Subjective: Progress note for Dr. Cox Patient went to dialysis this morning. tolerated procedure well. Patient has no new complaints at this time. Following up final read for upper extremity ultrasound. Left arm precautions in place. Patient denies N/V, headaches, dizziness. Objective - Vital Signs/Intake and Output Vital Signs (last 24 hours): Temp Pulse Resp BP Pulse Ox 98 F 110 H 20 124/87 98 05/10/17 08:34 05/10/17 11:23 05/10/17 08:34 05/10/17 11:23 05/10/17 08:34 Intake and Output: 05/10/17 05/10/17 06:59 18:59 Intake Total 480 Balance 480 - Medications Medications: Current Medications Abacavir Sulfate (Ziagen) 300 mg PO BID [facility] Last Admin: 05/10/17 11:23 Dose: 300 mg Acetaminophen (Tylenol 325mg Tab) 650 mg PO Q4H PRN PRN Reason: Fever >100.4 F Last Admin: 05/04/17 18:05 Dose: 650 mg Albuterol/Ipratropium (Duoneb 3 Mg/0.5 Mg (3 Ml) Ud) 3 ml IH Q2H PRN PRN Reason: Shortness of Breath Last Admin: 05/06/17 22:27 Dose: 3 ml Allopurinol (Zyloprim) 300 mg PO DAILY [facility] Last Admin: 05/10/17 11:23 Dose: 300 mg Amlodipine Besylate (Norvasc) 10 mg PO DAILY [facility] Last Admin: 05/10/17 11:23 Dose: 10 mg Clonidine HCl (Catapres) 0.2 mg PO BID [facility] Last Admin: 05/10/17 11:23 Dose: 0.2 mg Ergocalciferol (Drisdol 50,000 Intl Units Cap) 1 cap PO Q7D [facility] Last Admin: 05/06/17 17:45 Dose: 1 cap Ferrous Gluconate (Fergon) 324 mg PO TID [facility] Last Admin: 05/10/17 11:23 Dose: 324 mg Hydralazine HCl (Apresoline) 25 mg PO Q4 PRN PRN Reason: Other Last Admin: 05/08/17 03:55 Dose: 25 mg Hydralazine HCl (Apresoline) 50 mg PO Q8 [facility] Last Admin: 05/09/17 22:17 Dose: 50 mg Ceftriaxone Sodium (Rocephin 2 Gm Ivpb) 2 gm in 100 mls @ 100 mls/hr IVPB DAILY [facility] PRN Reason: Protocol Last Admin: 05/10/17 12:22 Dose: 100 mls/hr Indomethacin (Indocin) 25 mg PO TID [facility] Last Admin: 05/10/17 11:22 Dose: 25 mg Lamivudine (Epivir) 50 mg PO DAILY [facility] Last Admin: 05/10/17 11:24 Dose: Not Given Morphine Sulfate (Morphine) 1 mg IVP Q4H PRN PRN Reason: Pain, severe (8-10) Last Admin: 05/08/17 01:37 Dose: 1 mg Pantoprazole Sodium (Protonix Ec Tab) 40 mg PO 0600 [facility] Last Admin: 05/09/17 08:33 Dose: Not Given Sevelamer HCl (Renagel) 1,600 mg PO TID [facility] Last Admin: 05/10/17 11:23 Dose: 1,600 mg Vancomycin HCl (Vancocin 25 Mg/Ml (Oral Use)) 250 mg PO QID [facility] PRN Reason: Protocol Stop: 05/19/17 10:43 Last Admin: 05/10/17 11:22 Dose: 250 mg Vitamin B Complex/Vit C/Folic Acid (Nephro-Christel) 1 tab PO 0800 [facility] Last Admin: 05/10/17 11:24 Dose: Not Given Ziprasidone (Geodon Inj) 10 mg IM Q6H PRN; Protocol PRN Reason: agitation/psychosis Ziprasidone (Geodon Cap) 20 mg PO AMHS [facility] PRN Reason: Protocol Last Admin: 05/10/17 11:22 Dose: 20 mg - Labs Labs: 05/10/17 07:05 05/10/17 07:05 PT 13.4 Seconds (9.9-11.8) H 05/08/17 06:54 INR 1.24 (0.93-1.08) H 05/08/17 06:54 APTT 46.9 Seconds (23.7-30.8) H 05/08/17 06:54 - Constitutional Appears: Non-toxic, Agitated - Head Exam Head Exam: NORMAL INSPECTION - Eye Exam Eye Exam: EOMI, Normal appearance - ENT Exam ENT Exam: Mucous Membranes Moist. absent: Mucous Membranes Dry - Neck Exam Neck Exam: Full ROM - Respiratory Exam Respiratory Exam: Clear to Ausculation Bilateral, NORMAL BREATHING PATTERN. absent: Accessory Muscle Use, Respiratory Distress - Cardiovascular Exam Cardiovascular Exam: Tachycardia - GI/Abdominal Exam GI & Abdominal Exam: Soft. absent: Tenderness - Extremities Exam Extremities Exam: Full ROM, Normal Inspection. absent: Pedal Edema - Neurological Exam Neurological Exam: Alert, Awake - Psychiatric Exam Psychiatric exam: Normal Affect - Skin Skin Exam: Dry, Normal Color, Warm Additional comments: tunneled catheter in place. no erythema, drainage, hematoma Assessment and Plan - Assessment and Plan (Free Text) Assessment: 71yo M with PMHx of HIV, HTN, CKD, PVD, here with gram negative sepsis, likely urosepsis, worsening renal failure tunnel catheter placed by IR 05/08 Plan: c/w current medical management per ID, medicine team rocephin per ID vancomycin per ID continue tunneled catheter care, monitor for signs of erythema, induration, purulence, drainage continue hemodialysis per Dr. Arechiga AVF placement as outpatient f/u vein mapping for viability Following up final read for upper extremity ultrasound. Left arm precautions in place. Diet: renal diet per primary d/w Dr. Kenny Campos, DO PGY1 surgery pager: [phone]
--- NOTE | 2017-05-10 12:48 | PN ---
DATE: SUBJECTIVE: I saw him during dialysis. He is kind of tired this morning, but no complaints. He did not complain about his right arm this morning. He is getting dialysis. I think mentally he might be coming around a little bit. He is eating some. PHYSICAL EXAMINATION: VITAL SIGNS: He has 99 temperature, 95 pulse, 128/84 blood pressure, 22 respiratory rate, and 95% O2 saturation. HEENT: Head is atraumatic and normocephalic. HEART: Regular rate. LUNGS: Decreased breath sounds, but clear. ABDOMEN: Soft and nontender. Positive bowel sounds. EXTREMITIES: No edema. The right arm is less edematous. It is also still little bit painful, but not as bad as the day before. MEDICATIONS: He is on Apresoline, Catapres, Drisdol, DuoNeb, Epivir, Fergon, Geodon, indomethacin for the pain in the right arm, Merrem IV, morphine, Nephro-Christel, Norvasc, Protonix, Renagel, Tylenol, vancomycin IV, Ziagen, and allopurinol. He is off the Lasix, which is good. ASSESSMENT AND PLAN: He is getting dialysis. He is being seen by multiple physicians, Surgery, Renal, Neurology, Pulmonology, and Infectious Disease. He had a CAT scan of the head, no acute intracranial findings. He is here for sepsis, acute renal failure, colitis, pyelonephritis, urinary tract infection, Clostridium difficile, and hopefully, he can go to [facility] once we get him improved and dialysis. Parag Brownlee DO MTDD
--- NOTE | 2017-05-10 13:54 | CP.PCM.PN ---
Subjective - Date & Time of Evaluation Date of Evaluation: 05/10/17 Time of Evaluation: 12:30 - Subjective Subjective: Patient is still having occasional abdominal discomfort, diarrhea is improving, not bothered by Permacath on his right anterior chest wall, no fevers overnight. Objective - Vital Signs/Intake and Output Vital Signs (last 24 hours): Temp Pulse Resp BP Pulse Ox 98 F 104 H 20 133/85 98 05/10/17 08:34 05/10/17 08:34 05/10/17 08:34 05/10/17 08:34 05/10/17 08:34 Intake and Output: 05/10/17 05/10/17 06:59 18:59 Intake Total 480 Balance 480 - Medications Medications: Current Medications Abacavir Sulfate (Ziagen) 300 mg PO BID [facility] Last Admin: 05/09/17 18:08 Dose: 300 mg Acetaminophen (Tylenol 325mg Tab) 650 mg PO Q4H PRN PRN Reason: Fever >100.4 F Last Admin: 05/04/17 18:05 Dose: 650 mg Albuterol/Ipratropium (Duoneb 3 Mg/0.5 Mg (3 Ml) Ud) 3 ml IH Q2H PRN PRN Reason: Shortness of Breath Last Admin: 05/06/17 22:27 Dose: 3 ml Allopurinol (Zyloprim) 300 mg PO DAILY [facility] Last Admin: 05/09/17 10:45 Dose: Not Given Amlodipine Besylate (Norvasc) 10 mg PO DAILY [facility] Last Admin: 05/09/17 10:44 Dose: Not Given Clonidine HCl (Catapres) 0.2 mg PO BID [facility] Last Admin: 05/09/17 18:09 Dose: 0.2 mg Ergocalciferol (Drisdol 50,000 Intl Units Cap) 1 cap PO Q7D [facility] Last Admin: 05/06/17 17:45 Dose: 1 cap Ferrous Gluconate (Fergon) 324 mg PO TID [facility] Last Admin: 05/09/17 18:08 Dose: 324 mg Hydralazine HCl (Apresoline) 25 mg PO Q4 PRN PRN Reason: Other Last Admin: 05/08/17 03:55 Dose: 25 mg Hydralazine HCl (Apresoline) 50 mg PO Q8 [facility] Last Admin: 05/09/17 22:17 Dose: 50 mg Ceftriaxone Sodium (Rocephin 2 Gm Ivpb) 2 gm in 100 mls @ 100 mls/hr IVPB DAILY [facility] PRN Reason: Protocol Indomethacin (Indocin) 25 mg PO TID [facility] Last Admin: 05/09/17 18:07 Dose: 25 mg Lamivudine (Epivir) 50 mg PO DAILY [facility] Last Admin: 05/09/17 10:47 Dose: Not Given Morphine Sulfate (Morphine) 1 mg IVP Q4H PRN PRN Reason: Pain, severe (8-10) Last Admin: 05/08/17 01:37 Dose: 1 mg Pantoprazole Sodium (Protonix Ec Tab) 40 mg PO 0600 [facility] Last Admin: 05/09/17 08:33 Dose: Not Given Sevelamer HCl (Renagel) 1,600 mg PO TID [facility] Last Admin: 05/09/17 18:07 Dose: 1,600 mg Vancomycin HCl (Vancocin 25 Mg/Ml (Oral Use)) 250 mg PO QID [facility] PRN Reason: Protocol Stop: 05/19/17 10:43 Last Admin: 05/09/17 22:12 Dose: 250 mg Vitamin B Complex/Vit C/Folic Acid (Nephro-Christel) 1 tab PO 0800 [facility] Last Admin: 05/09/17 08:34 Dose: Not Given Ziprasidone (Geodon Inj) 10 mg IM Q6H PRN; Protocol PRN Reason: agitation/psychosis Ziprasidone (Geodon Cap) 20 mg PO AMHS [facility] PRN Reason: Protocol Last Admin: 05/09/17 22:15 Dose: 20 mg - Labs Labs: 05/10/17 07:05 05/10/17 07:05 PT 13.4 Seconds (9.9-11.8) H 05/08/17 06:54 INR 1.24 (0.93-1.08) H 05/08/17 06:54 APTT 46.9 Seconds (23.7-30.8) H 05/08/17 06:54 - Constitutional Appears: Non-toxic, No Acute Distress - Head Exam Head Exam: NORMAL INSPECTION - ENT Exam ENT Exam: Mucous Membranes Moist - Neck Exam Neck Exam: absent: Meningismus - Respiratory Exam Respiratory Exam: Decreased Breath Sounds Additional comments: right anterior chest wall Permacath site intact - Cardiovascular Exam Cardiovascular Exam: +S1, +S2 - GI/Abdominal Exam GI & Abdominal Exam: Soft. absent: Tenderness Assessment and Plan - Assessment and Plan (Free Text) Plan: Assessment severe sepsis with acute on chronic renal failure probably due to intra- abdominal infection (possible ileitis/colitis/proctitis), as well as pyelonephritis with E. coli bacteremia in this patient presenting with melena; ischemic colitis was also part of the differential diagnosis ; C. diff. 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 coli in the blood and urine are sensitive to it continue antiretroviral therapy (lamivudine, abacavir on formulary but dolutegravir should be taken by patient from his home supply) reviewed GI evaluation Will continue to monitor clinically
--- NOTE | 2017-05-10 16:01 | CP.PCM.PN ---
<Mykel Hickman - Last Filed: 05/10/17 17:02> Subjective - Date & Time of Evaluation Date of Evaluation: 05/10/17 Time of Evaluation: 09:50 - Subjective Subjective: Neurology Progress Note for Dr. Aggarwal Service. Patient seen and examined at bedside. No acute events reported overnight. No new reported paresthesias/paresis. Received HD today. Patient denies acute complaints at time of exam; R-arm sensation remains intact, wrist pain and swelling is improved, and movement is improved. Denies chest pain, shortness of breath, nausea, emesis. Does not feel like the R arm swelling is similar in characteristic and pain to his prior gout attacks. Objective - Vital Signs/Intake and Output Vital Signs (last 24 hours): Temp Pulse Resp BP Pulse Ox 98 F 110 H 20 128/89 98 05/10/17 08:34 05/10/17 11:23 05/10/17 08:34 05/10/17 14:59 05/10/17 08:34 Intake and Output: 05/10/17 05/10/17 06:59 18:59 Intake Total 480 240 Balance 480 240 - Medications Medications: Current Medications Abacavir Sulfate (Ziagen) 300 mg PO BID [facility] Last Admin: 05/10/17 11:23 Dose: 300 mg Acetaminophen (Tylenol 325mg Tab) 650 mg PO Q4H PRN PRN Reason: Fever >100.4 F Last Admin: 05/04/17 18:05 Dose: 650 mg Albuterol/Ipratropium (Duoneb 3 Mg/0.5 Mg (3 Ml) Ud) 3 ml IH Q2H PRN PRN Reason: Shortness of Breath Last Admin: 05/06/17 22:27 Dose: 3 ml Allopurinol (Zyloprim) 300 mg PO DAILY [facility] Last Admin: 05/10/17 11:23 Dose: 300 mg Amlodipine Besylate (Norvasc) 10 mg PO DAILY [facility] Last Admin: 05/10/17 11:23 Dose: 10 mg Clonidine HCl (Catapres) 0.2 mg PO BID [facility] Last Admin: 05/10/17 11:23 Dose: 0.2 mg Ergocalciferol (Drisdol 50,000 Intl Units Cap) 1 cap PO Q7D [facility] Last Admin: 05/06/17 17:45 Dose: 1 cap Ferrous Gluconate (Fergon) 324 mg PO TID [facility] Last Admin: 05/10/17 14:59 Dose: 324 mg Hydralazine HCl (Apresoline) 25 mg PO Q4 PRN PRN Reason: Other Last Admin: 05/08/17 03:55 Dose: 25 mg Hydralazine HCl (Apresoline) 50 mg PO Q8 [facility] Last Admin: 05/10/17 14:59 Dose: 50 mg Ceftriaxone Sodium (Rocephin 2 Gm Ivpb) 2 gm in 100 mls @ 100 mls/hr IVPB DAILY [facility] PRN Reason: Protocol Last Admin: 05/10/17 12:22 Dose: 100 mls/hr Indomethacin (Indocin) 25 mg PO TID [facility] Last Admin: 05/10/17 14:59 Dose: 25 mg Lamivudine (Epivir) 50 mg PO DAILY [facility] Last Admin: 05/10/17 11:24 Dose: Not Given Morphine Sulfate (Morphine) 1 mg IVP Q4H PRN PRN Reason: Pain, severe (8-10) Last Admin: 05/08/17 01:37 Dose: 1 mg Pantoprazole Sodium (Protonix Ec Tab) 40 mg PO 0600 [facility] Last Admin: 05/09/17 08:33 Dose: Not Given Sevelamer HCl (Renagel) 1,600 mg PO TID [facility] Last Admin: 05/10/17 14:59 Dose: 1,600 mg Vancomycin HCl (Vancocin 25 Mg/Ml (Oral Use)) 250 mg PO QID [facility] PRN Reason: Protocol Stop: 05/19/17 10:43 Last Admin: 05/10/17 15:13 Dose: 250 mg Vitamin B Complex/Vit C/Folic Acid (Nephro-Christel) 1 tab PO 0800 [facility] Last Admin: 05/10/17 11:24 Dose: Not Given Ziprasidone (Geodon Inj) 10 mg IM Q6H PRN; Protocol PRN Reason: agitation/psychosis Ziprasidone (Geodon Cap) 20 mg PO AMHS [facility] PRN Reason: Protocol Last Admin: 05/10/17 11:22 Dose: 20 mg - Labs Labs: 05/10/17 07:05 05/10/17 07:05 PT 13.4 Seconds (9.9-11.8) H 05/08/17 06:54 INR 1.24 (0.93-1.08) H 05/08/17 06:54 APTT 46.9 Seconds (23.7-30.8) H 05/08/17 06:54 - Constitutional Appears: Non-toxic, No Acute Distress - Head Exam Head Exam: ATRAUMATIC, NORMAL INSPECTION, NORMOCEPHALIC - Eye Exam Eye Exam: EOMI, Normal appearance. absent: Conjunctival injection, Scleral icterus Pupil Exam: absent: Irregular, Unequal - ENT Exam ENT Exam: Mucous Membranes Moist - Neck Exam Neck Exam: absent: Lymphadenopathy, Thyromegaly - Respiratory Exam Respiratory Exam: Clear to Ausculation Bilateral, NORMAL BREATHING PATTERN. absent: Accessory Muscle Use, Chest Wall Tenderness, Decreased Breath Sounds, Rales, Rhonchi, Wheezes - Cardiovascular Exam Cardiovascular Exam: REGULAR RHYTHM, RRR, +S1, +S2. absent: Bradycardia, Tachycardia, Irregular Rhythm, JVD, +S4 - GI/Abdominal Exam GI & Abdominal Exam: Soft, Normal Bowel Sounds. absent: Distended, Firm, Rigid , Tenderness - Extremities Exam Extremities Exam: Pedal Edema (+1-2 pitting edema in bilateral LE). 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 Neuro was consulted for reported inability to move his R arm. His symptoms of R arm are suspicious for venous thrombosis vs gout attack. Head CT was negative for acute findings, only notable for stable age-related neurodegenerative changes. Sensation in R arm remains intact, and he admits he was voluntarily restricting his motion 2/2 pain. Would order Upper extremity duplex to r/o thrombosis. Patient will also require an EMG as an outpatient. Plan: 1) UE duplex to r/o thrombosis 2) CT head negative for acute process 3) Medical management as per primary 4) PT/OT 5) EMG as outpatient Patient reviewed and discussed with attending, Dr. Aggarwal. <Kelvin Aggarwal - Last Filed: 05/11/17 10:22> Objective - Vital Signs/Intake and Output Vital Signs (last 24 hours): Temp Pulse Resp BP Pulse Ox 98.5 F 100 H 20 140/88 96 05/11/17 08:05 05/11/17 09:28 05/11/17 08:05 05/11/17 09:28 05/11/17 08:05 Intake and Output: 05/11/17 05/11/17 06:59 18:59 Intake Total 300 Output Total 150 Balance 150 - Medications Medications: Current Medications Abacavir Sulfate (Ziagen) 300 mg PO BID [facility] Last Admin: 05/11/17 09:27 Dose: 300 mg Acetaminophen (Tylenol 325mg Tab) 650 mg PO Q4H PRN PRN Reason: Fever >100.4 F Last Admin: 05/04/17 18:05 Dose: 650 mg Albuterol/Ipratropium (Duoneb 3 Mg/0.5 Mg (3 Ml) Ud) 3 ml IH Q2H PRN PRN Reason: Shortness of Breath Last Admin: 05/06/17 22:27 Dose: 3 ml Allopurinol (Zyloprim) 300 mg PO DAILY [facility] Last Admin: 05/11/17 09:27 Dose: 300 mg Amlodipine Besylate (Norvasc) 10 mg PO DAILY [facility] Last Admin: 05/11/17 09:28 Dose: 10 mg Clonidine HCl (Catapres) 0.2 mg PO BID [facility] Last Admin: 05/11/17 09:28 Dose: 0.2 mg Ergocalciferol (Drisdol 50,000 Intl Units Cap) 1 cap PO Q7D [facility] Last Admin: 05/11/17 09:45 Dose: 1 cap Ferrous Gluconate (Fergon) 324 mg PO TID [facility] Last Admin: 05/11/17 09:27 Dose: 324 mg Hydralazine HCl (Apresoline) 25 mg PO Q4 PRN PRN Reason: Other Last Admin: 05/08/17 03:55 Dose: 25 mg Hydralazine HCl (Apresoline) 50 mg PO Q8 [facility] Last Admin: 05/11/17 06:02 Dose: 50 mg Ceftriaxone Sodium (Rocephin 2 Gm Ivpb) 2 gm in 100 mls @ 100 mls/hr IVPB DAILY [facility] PRN Reason: Protocol Last Admin: 05/11/17 09:26 Dose: 100 mls/hr Indomethacin (Indocin) 25 mg PO TID [facility] Last Admin: 05/11/17 09:27 Dose: 25 mg Lamivudine (Epivir) 50 mg PO DAILY [facility] Last Admin: 05/11/17 09:29 Dose: Not Given Pantoprazole Sodium (Protonix Ec Tab) 40 mg PO 0600 [facility] Last Admin: 05/11/17 06:02 Dose: 40 mg Sevelamer HCl (Renagel) 1,600 mg PO TID [facility] Last Admin: 05/11/17 09:27 Dose: 1,600 mg Vancomycin HCl (Vancocin 25 Mg/Ml (Oral Use)) 250 mg PO QID [facility] PRN Reason: Protocol Stop: 05/19/17 10:43 Last Admin: 05/11/17 09:26 Dose: 250 mg Vitamin B Complex/Vit C/Folic Acid (Nephro-Christel) 1 tab PO 0800 [facility] Last Admin: 05/11/17 09:27 Dose: 1 tab Ziprasidone (Geodon Inj) 10 mg IM Q6H PRN; Protocol PRN Reason: agitation/psychosis Ziprasidone (Geodon Cap) 20 mg PO AMHS [facility] PRN Reason: Protocol Last Admin: 05/11/17 09:28 Dose: 20 mg - Labs Labs: 05/11/17 08:14 05/11/17 08:14 PT 13.4 Seconds (9.9-11.8) H 05/08/17 06:54 INR 1.24 (0.93-1.08) H 05/08/17 06:54 APTT 46.9 Seconds (23.7-30.8) H 05/08/17 06:54 Attending/Attestation - Attestation I have personally seen and examined this patient.: Yes I have fully participated in the care of the patient.: Yes I have reviewed all pertinent clinical information, including history, physical exam and plan: Yes
--- NOTE | 2017-05-10 16:23 | PN ---
DATE: 05/10/2017 CHIEF COMPLAINT: None at this time. HPI AND REVIEW OF SYSTEM: The patient had dialysis today as well. He tolerated dialysis well. No active complaint at this time. Right hand pain and swelling is better. He is reporting some pain in the lower abdomen. He denies any shortness of breath. Denies any cough or phlegm. PHYSICAL EXAMINATION VITAL SIGNS: Afebrile. Pulse is 110 and blood pressure 124/87. LUNGS: Bilateral vesicular breath sounds clear anteriorly. CARDIOVASCULAR: S1 and S2 normal. No rub or gallop. ABDOMEN: Soft somewhat distended but no specific tenderness at this time. No organomegaly could be appreciated. EXTREMITIES: No edema. SKIN: No rashes or ulceration. NECK: No lymph adenopathy in the neck. PSYCHIATRIC: The patient is pleasant and cooperative. Judgement is appropriate. Affect is flat. NEUROLOGIC: Alert and oriented x3. No focal deficits. Moving all 4 extremities. LABORATORY DATA: Workup shows white blood count 12.7, hemoglobin 9.6, platelet count is 497. Sodium is 145, potassium 4.1, creatinine is 6.2, BUN is 59, glucose 90. CURRENT MEDICATIONS: Reviewed. ASSESSMENT AND PLAN: 1. Acute kidney injury. 2. Chronic kidney disease stage V. 3. End stage renal disease started on hemodialysis by Perma-Cath. 4. Human immunodeficiency virus, on HAART. 5. Gram-negative sepsis with Escherichia coli with pyelonephritis. 6. History of carcinoma of prostate. 7. Acidosis, vitamin B and D deficiency secondary to hyperparathyroidism, hyperphosphatemia. RECOMMENDATIONS: The patient on third dialysis session today. We will reassess tomorrow and likely plan for next dialysis on Sunday. Vascular has followed for AVF placement. Recommending outpatient assessment. Continue the phosphate binder. We will order the dose for Aranesp for the next treatment. Continue with iron supplementation. He also get heparin during dialysis. All questions were answered. Yandel Arechiga MD
--- NOTE | 2017-05-10 18:44 | US ---
HISTORY: Arm pain and swelling. Evaluate for deep venous thrombosis. PHYSICIAN(S): Emmanuel Good MD. FINDINGS: The visualized internal jugular veins are sonographically normal and compressible. No evidence of obstruction or thrombus this is seen. The visualized segments of the subclavian veins are patent with normal waveforms. No sonographic evidence of obstruction or thrombosis is seen. The visualized deep venous systems of both upper extremities proximally are sonographically normal and compressible. IMPRESSION: 1. No sonographic evidence for deep venous thrombosis in the visualized segments of both upper strategies.
--- NOTE | 2017-05-10 18:50 | US ---
PROCEDURE: Left upper extremity venous ultrasound HISTORY: End-stage renal disease. Evaluate left superficial veins for AV access place PHYSICIAN(S): Emmanuel Good MD. FINDINGS: The left basilic vein is thick walled and atretic in the forearm. The left basilic vein at the elbow is enlarged with thrombus present. There is superficial thrombophlebitis throughout the visualized segments of the left basilic vein above the elbow. The left cephalic vein is atretic above and below the elbow. IMPRESSION: 1. The left basilic and cephalic veins are atretic in the forearm. 2. There is superficial thrombophlebitis in the left basilic vein above the elbow. 3. No adequate superficial vein is demonstrated in the left upper extremity for AV access placement.
[2017-05-11] MEDS: Pantoprazole 40 mg EC Tab PO SCH (06:02)
[2017-05-11 08:20] LABS: MEAN CELL VOLUME 98.2 fl (80.0-105.0); MEAN CORPUSCULAR HEMOGLOBIN 31.6 pg (25.0-35.0); MEAN CORPUSCULAR HGB CONC 32.2 g/dl (31.0-37.0); MEAN PLATELET VOLUME 10.6 fl (7.0-11.0); RED CELL DISTRIBUTION WIDTH 14.1 % (11.5-14.5); WHITE BLOOD COUNT 10.8 10^3/ul (4.5-11.0)
--- NOTE | 2017-05-11 08:31 | PN ---
PULMONARY NOTE DATE: 05/11/2017 SUBJECTIVE: The patient appears comfortable this morning. He is not short of breath at rest. PHYSICAL EXAMINATION: VITAL SIGNS: Temperature is 97.7, pulse 107, respirations 18, blood pressure 135/86. Oxygen saturation on nasal cannula ranges between 94-98%. HEENT: Normocephalic, atraumatic. No JVD. CARDIOVASCULAR: Systolic ejection murmur at the lower left sternal border. No S3 gallop. LUNGS: Less crackles at the bases. No rhonchi. No wheezing. EXTREMITIES: Less edema. No cyanosis, no clubbing. Calves are nontender to palpation. GI: Abdomen is soft. It is less distended. It is nontender to palpation. Bowel sounds are positive. SKIN: No acute rash. NEUROLOGIC EXAMINATION: Limited at the present time. IMPRESSION 1. Shortness of breath - resolving. 2. Gram-negative urosepsis. 3. Acute on chronic renal insufficiency. 4. Anion gap acidosis. 5. Gastrointestinal bleeding. 6. Mild anemia. PLAN: The patient appears comfortable this morning. He is not short of breath at rest. He does state to feeling much better overall. I did discuss the case with the night nurse at length. The night nurse stated that the patient had a good night. He was dialyzed again yesterday. I would continue with the antibiotic coverage as per infectious disease. Input by Dr. Hernandez is noted. There are no temperatures noted. The leukocytosis is resolving. Clinical status of the patient is certainly improving - compared to the initial presentation. However, again, the future status/prognosis for this elderly patient is remains very guarded/poor. I will discuss the above with Dr. Brownlee. Partha Klein MD MTDD
[2017-05-11 08:39] LABS: ALB/GLOB RATIO 0.7 (1.1-1.8); BILIRUBIN,TOTAL 0.5 mg/dL (0.2-1.3); CALCIUM 8.3 mg/dL (8.4-10.5); TOTAL PROTEIN 7.3 g/dL (5.8-8.3)
[2017-05-11 08:54] VITALS: TEMP 98.5; O2SAT 96
[2017-05-11] MEDS: Vancomycin 25 MG/ML PO SCH ×3 (09:26→17:00)
[2017-05-11] MEDS: cefTRIAXone 2 GM IN NS 2 GM/100 ML BAG IVPB SCH (09:26)
[2017-05-11] MEDS: Multivitamin Vitamin B Complex (Nephro-Vite) Tab PO SCH (09:27)
[2017-05-11] MEDS: LamiVUDine 10 mg/ml Syringe PO SCH (09:29)
[2017-05-11 09:38] VITALS: BP 140/88; PULSE 100
[2017-05-11] MEDS: Ergocalciferol 50,000 Intl Units Cap PO SCH (09:45)
--- NOTE | 2017-05-11 09:54 | CP.PCM.PN ---
Objective - Vital Signs/Intake and Output Vital Signs (last 24 hours): Temp Pulse Resp BP Pulse Ox 98.5 F 100 H 20 140/88 96 05/11/17 08:05 05/11/17 09:28 05/11/17 08:05 05/11/17 09:28 05/11/17 08:05 Intake and Output: 05/11/17 05/11/17 06:59 18:59 Intake Total 300 Output Total 150 Balance 150 - Medications Medications: Current Medications Abacavir Sulfate (Ziagen) 300 mg PO BID [facility] Last Admin: 05/11/17 09:27 Dose: 300 mg Acetaminophen (Tylenol 325mg Tab) 650 mg PO Q4H PRN PRN Reason: Fever >100.4 F Last Admin: 05/04/17 18:05 Dose: 650 mg Albuterol/Ipratropium (Duoneb 3 Mg/0.5 Mg (3 Ml) Ud) 3 ml IH Q2H PRN PRN Reason: Shortness of Breath Last Admin: 05/06/17 22:27 Dose: 3 ml Allopurinol (Zyloprim) 300 mg PO DAILY [facility] Last Admin: 05/11/17 09:27 Dose: 300 mg Amlodipine Besylate (Norvasc) 10 mg PO DAILY [facility] Last Admin: 05/11/17 09:28 Dose: 10 mg Clonidine HCl (Catapres) 0.2 mg PO BID [facility] Last Admin: 05/11/17 09:28 Dose: 0.2 mg Ergocalciferol (Drisdol 50,000 Intl Units Cap) 1 cap PO Q7D [facility] Last Admin: 05/11/17 09:45 Dose: 1 cap Ferrous Gluconate (Fergon) 324 mg PO TID [facility] Last Admin: 05/11/17 09:27 Dose: 324 mg Hydralazine HCl (Apresoline) 25 mg PO Q4 PRN PRN Reason: Other Last Admin: 05/08/17 03:55 Dose: 25 mg Hydralazine HCl (Apresoline) 50 mg PO Q8 [facility] Last Admin: 05/11/17 06:02 Dose: 50 mg Ceftriaxone Sodium (Rocephin 2 Gm Ivpb) 2 gm in 100 mls @ 100 mls/hr IVPB DAILY [facility] PRN Reason: Protocol Last Admin: 05/11/17 09:26 Dose: 100 mls/hr Indomethacin (Indocin) 25 mg PO TID [facility] Last Admin: 05/11/17 09:27 Dose: 25 mg Lamivudine (Epivir) 50 mg PO DAILY [facility] Last Admin: 05/11/17 09:29 Dose: Not Given Pantoprazole Sodium (Protonix Ec Tab) 40 mg PO 0600 [facility] Last Admin: 05/11/17 06:02 Dose: 40 mg Sevelamer HCl (Renagel) 1,600 mg PO TID [facility] Last Admin: 05/11/17 09:27 Dose: 1,600 mg Vancomycin HCl (Vancocin 25 Mg/Ml (Oral Use)) 250 mg PO QID [facility] PRN Reason: Protocol Stop: 05/19/17 10:43 Last Admin: 05/11/17 09:26 Dose: 250 mg Vitamin B Complex/Vit C/Folic Acid (Nephro-Christel) 1 tab PO 0800 [facility] Last Admin: 05/11/17 09:27 Dose: 1 tab Ziprasidone (Geodon Inj) 10 mg IM Q6H PRN; Protocol PRN Reason: agitation/psychosis Ziprasidone (Geodon Cap) 20 mg PO AMHS [facility] PRN Reason: Protocol Last Admin: 05/11/17 09:28 Dose: 20 mg - Labs Labs: 05/11/17 08:14 05/11/17 08:14 PT 13.4 Seconds (9.9-11.8) H 05/08/17 06:54 INR 1.24 (0.93-1.08) H 05/08/17 06:54 APTT 46.9 Seconds (23.7-30.8) H 05/08/17 06:54
--- NOTE | 2017-05-11 11:07 | CP.PCM.PN ---
Subjective - Date & Time of Evaluation Date of Evaluation: 05/11/17 Time of Evaluation: 06:30 - Subjective Subjective: Surgery Note for Dr. Cox 71M seen and examined at bedside. Patient resting comfortably. NAEON. Objective - Vital Signs/Intake and Output Vital Signs (last 24 hours): Temp Pulse Resp BP Pulse Ox 98.5 F 100 H 20 140/88 96 05/11/17 08:05 05/11/17 09:28 05/11/17 08:05 05/11/17 09:28 05/11/17 08:05 Intake and Output: 05/11/17 05/11/17 06:59 18:59 Intake Total 300 Output Total 150 Balance 150 - Medications Medications: Current Medications Abacavir Sulfate (Ziagen) 300 mg PO BID [facility] Last Admin: 05/11/17 09:27 Dose: 300 mg Acetaminophen (Tylenol 325mg Tab) 650 mg PO Q4H PRN PRN Reason: Fever >100.4 F Last Admin: 05/04/17 18:05 Dose: 650 mg Albuterol/Ipratropium (Duoneb 3 Mg/0.5 Mg (3 Ml) Ud) 3 ml IH Q2H PRN PRN Reason: Shortness of Breath Last Admin: 05/06/17 22:27 Dose: 3 ml Allopurinol (Zyloprim) 300 mg PO DAILY [facility] Last Admin: 05/11/17 09:27 Dose: 300 mg Amlodipine Besylate (Norvasc) 10 mg PO DAILY [facility] Last Admin: 05/11/17 09:28 Dose: 10 mg Clonidine HCl (Catapres) 0.2 mg PO BID [facility] Last Admin: 05/11/17 09:28 Dose: 0.2 mg Ergocalciferol (Drisdol 50,000 Intl Units Cap) 1 cap PO Q7D [facility] Last Admin: 05/11/17 09:45 Dose: 1 cap Ferrous Gluconate (Fergon) 324 mg PO TID [facility] Last Admin: 05/11/17 09:27 Dose: 324 mg Hydralazine HCl (Apresoline) 25 mg PO Q4 PRN PRN Reason: Other Last Admin: 05/08/17 03:55 Dose: 25 mg Hydralazine HCl (Apresoline) 50 mg PO Q8 [facility] Last Admin: 05/11/17 06:02 Dose: 50 mg Ceftriaxone Sodium (Rocephin 2 Gm Ivpb) 2 gm in 100 mls @ 100 mls/hr IVPB DAILY [facility] PRN Reason: Protocol Last Admin: 05/11/17 09:26 Dose: 100 mls/hr Indomethacin (Indocin) 25 mg PO TID [facility] Last Admin: 05/11/17 09:27 Dose: 25 mg Lamivudine (Epivir) 50 mg PO DAILY [facility] Last Admin: 05/11/17 09:29 Dose: Not Given Pantoprazole Sodium (Protonix Ec Tab) 40 mg PO 0600 [facility] Last Admin: 05/11/17 06:02 Dose: 40 mg Sevelamer HCl (Renagel) 1,600 mg PO TID [facility] Last Admin: 05/11/17 09:27 Dose: 1,600 mg Vancomycin HCl (Vancocin 25 Mg/Ml (Oral Use)) 250 mg PO QID [facility] PRN Reason: Protocol Stop: 05/19/17 10:43 Last Admin: 05/11/17 09:26 Dose: 250 mg Vitamin B Complex/Vit C/Folic Acid (Nephro-Christel) 1 tab PO 0800 [facility] Last Admin: 05/11/17 09:27 Dose: 1 tab Ziprasidone (Geodon Inj) 10 mg IM Q6H PRN; Protocol PRN Reason: agitation/psychosis Ziprasidone (Geodon Cap) 20 mg PO AMHS [facility] PRN Reason: Protocol Last Admin: 05/11/17 09:28 Dose: 20 mg - Labs Labs: 05/11/17 08:14 05/11/17 08:14 PT 13.4 Seconds (9.9-11.8) H 05/08/17 06:54 INR 1.24 (0.93-1.08) H 05/08/17 06:54 APTT 46.9 Seconds (23.7-30.8) H 05/08/17 06:54 - Constitutional Appears: Non-toxic, No Acute Distress - Respiratory Exam Respiratory Exam: Clear to Ausculation Bilateral, NORMAL BREATHING PATTERN - Cardiovascular Exam Cardiovascular Exam: REGULAR RHYTHM, +S1, +S2 - Extremities Exam Additional comments: left arm alert - Neurological Exam Neurological Exam: Awake Assessment and Plan - Assessment and Plan (Free Text) Assessment: 71M with CKD, requiring dialysis, consulted for AVF placement. s/p dialysis catheter placement POD3 Left arm vein mapping - showed no adequate veins for AVF placement Plan: - recommend right arm vein mapping in prep for future AVF Discussed with Dr. Dwight Walker, PGY2
--- NOTE | 2017-05-11 13:43 | CP.PCM.PN ---
Subjective - Date & Time of Evaluation Date of Evaluation: 05/11/17 Time of Evaluation: 12:40 - Subjective Subjective: Comfortable, not in distress, afebrile. Objective - Vital Signs/Intake and Output Vital Signs (last 24 hours): Temp Pulse Resp BP Pulse Ox 97.7 F 107 H 20 135/86 94 L 05/10/17 16:00 05/11/17 06:02 05/10/17 16:00 05/11/17 06:02 05/10/17 16:00 Intake and Output: 05/10/17 05/11/17 18:59 06:59 Intake Total 240 300 Output Total 50 Balance 240 250 - Medications Medications: Current Medications Abacavir Sulfate (Ziagen) 300 mg PO BID [facility] Last Admin: 05/10/17 19:08 Dose: 300 mg Acetaminophen (Tylenol 325mg Tab) 650 mg PO Q4H PRN PRN Reason: Fever >100.4 F Last Admin: 05/04/17 18:05 Dose: 650 mg Albuterol/Ipratropium (Duoneb 3 Mg/0.5 Mg (3 Ml) Ud) 3 ml IH Q2H PRN PRN Reason: Shortness of Breath Last Admin: 05/06/17 22:27 Dose: 3 ml Allopurinol (Zyloprim) 300 mg PO DAILY [facility] Last Admin: 05/10/17 11:23 Dose: 300 mg Amlodipine Besylate (Norvasc) 10 mg PO DAILY [facility] Last Admin: 05/10/17 11:23 Dose: 10 mg Clonidine HCl (Catapres) 0.2 mg PO BID [facility] Last Admin: 05/10/17 19:08 Dose: 0.2 mg Ergocalciferol (Drisdol 50,000 Intl Units Cap) 1 cap PO Q7D [facility] Last Admin: 05/06/17 17:45 Dose: 1 cap Ferrous Gluconate (Fergon) 324 mg PO TID [facility] Last Admin: 05/10/17 19:08 Dose: 324 mg Hydralazine HCl (Apresoline) 25 mg PO Q4 PRN PRN Reason: Other Last Admin: 05/08/17 03:55 Dose: 25 mg Hydralazine HCl (Apresoline) 50 mg PO Q8 [facility] Last Admin: 05/11/17 06:02 Dose: 50 mg Ceftriaxone Sodium (Rocephin 2 Gm Ivpb) 2 gm in 100 mls @ 100 mls/hr IVPB DAILY [facility] PRN Reason: Protocol Last Admin: 05/10/17 12:22 Dose: 100 mls/hr Indomethacin (Indocin) 25 mg PO TID [facility] Last Admin: 05/10/17 19:10 Dose: Not Given Lamivudine (Epivir) 50 mg PO DAILY [facility] Last Admin: 05/10/17 11:24 Dose: Not Given Morphine Sulfate (Morphine) 1 mg IVP Q4H PRN PRN Reason: Pain, severe (8-10) Last Admin: 05/08/17 01:37 Dose: 1 mg Pantoprazole Sodium (Protonix Ec Tab) 40 mg PO 0600 [facility] Last Admin: 05/11/17 06:02 Dose: 40 mg Sevelamer HCl (Renagel) 1,600 mg PO TID [facility] Last Admin: 05/10/17 19:08 Dose: 1,600 mg Vancomycin HCl (Vancocin 25 Mg/Ml (Oral Use)) 250 mg PO QID [facility] PRN Reason: Protocol Stop: 05/19/17 10:43 Last Admin: 05/10/17 23:20 Dose: 250 mg Vitamin B Complex/Vit C/Folic Acid (Nephro-Christel) 1 tab PO 0800 [facility] Last Admin: 05/10/17 11:24 Dose: Not Given Ziprasidone (Geodon Inj) 10 mg IM Q6H PRN; Protocol PRN Reason: agitation/psychosis Ziprasidone (Geodon Cap) 20 mg PO AMHS [facility] PRN Reason: Protocol Last Admin: 05/10/17 22:32 Dose: 20 mg - Labs Labs: 05/10/17 07:05 05/10/17 07:05 PT 13.4 Seconds (9.9-11.8) H 05/08/17 06:54 INR 1.24 (0.93-1.08) H 05/08/17 06:54 APTT 46.9 Seconds (23.7-30.8) H 05/08/17 06:54 - Constitutional Appears: Non-toxic, No Acute Distress - Head Exam Head Exam: NORMAL INSPECTION - ENT Exam ENT Exam: Mucous Membranes Moist - Neck Exam Neck Exam: absent: Lymphadenopathy, Meningismus - Respiratory Exam Respiratory Exam: Decreased Breath Sounds - Cardiovascular Exam Cardiovascular Exam: +S1, +S2 - GI/Abdominal Exam GI & Abdominal Exam: Soft. absent: Tenderness Assessment and Plan - Assessment and Plan (Free Text) Plan: Assessment severe sepsis with acute on chronic renal failure probably due to pyelonephritis with E. coli bacteremia, clinically improving C. diff. associated diarrhea - clinically improving Charcot foot, left history of left 2nd toe dry gangrene Chronic renal failure HTN prostate CA HIV (patient goes to the [facility] with last CD4 count her at [facility] 03/2016 349 and virus load < 1.3 log) history of osteomyelitis of left first toe S/P amputation (2015) gout history of left foot ulcers Plan on Rocephin day 10 and PO Vancomycin - should complete at least 2 weeks of antibiotics continue antiretroviral therapy (lamivudine, abacavir on formulary but dolutegravir should be taken by patient from his home supply) reviewed GI evaluation discussed with Dr. Brownlee
--- NOTE | 2017-05-11 14:23 | DS ---
HISTORY OF PRESENT ILLNESS: I saw the patient comfortable being in bed. He is doing better overall. He has got more complaints which is good. He is talking better, stronger. He is still in bed though. He has physical therapy, also IV antibiotics. His right arm has definitely improved with motion and less pain, and the ultrasound was negative of the right arm. PHYSICAL EXAMINATION: GENERAL: He is very alert and oriented, improving. VITAL SIGNS: 97.7 temp, 103 pulse, 122/78 blood pressure, 20 respiratory rate, 94% O2 sat on 2 liters of nasal cannula. HEENT: His head is atraumatic and normocephalic. Throat is moist. NECK: Supple. HEART: Regular rate. LUNGS: Decreased breath sounds, but clear. ABDOMEN: Soft. EXTREMITIES: No edema. MEDICATIONS: He is currently on Apresoline, Catapres, Drisdol, DuoNeb, Epivir, Fergon, Geodon, indomethacin, morphine, Nephro-Christel, Norvasc, Protonix, Renagel, Rocephin 2 g IV instead of the Merrem, Tylenol and vancomycin p.o., Ziagen, allopurinol. LABORATORY DATA: He had a 12.7 white count yesterday, 9.6 hemoglobin and 497 platelets; waiting for this morning's lab to come to. His last blood sugar was 92. Yesterday, his potassium was 4.1 with sodium was 145, BUN was 69, creatinine was 6.2 after dialysis. Uric acid was 8.6, phosphorus was 7.6. Magnesium 2.2. Total kenzie is 0.6, AST is 71, ALT is 31, alkaline phosphatase 121. He is being seen by renal and infectious disease, pulmonary, neurology. Overall he has improved. He is on antibiotics. He has had multiple issues, severe sepsis, [id number] renal failure due to intraabdominal infection, colitis, pyelonephritis, bacteriemia, he had melena, ischemic colitis, C. diff and hopefully, we can get him to [facility] for dialysis and further treatment. He has also has a past medical history of HIV, prostate cancer, osteomyelitis with amputation. Hoping to discharge him today to [facility]. Parag Brownlee DO
--- NOTE | 2017-05-11 15:30 | PN ---
CHIEF COMPLAINT: None at this time, "I'm being discharged." HISTORY OF PRESENT ILLNESS AND REVIEW OF SYSTEMS: The patient had dialysis done yesterday, he tolerated well. He is being discharged to rehab today; otherwise, he is asymptomatic. Denies any complaint. No chest pain, palpitation, shortness of breath, cough, phlegm, fever or chills. He is orally accepting. PHYSICAL EXAMINATION: VITAL SIGNS: Stable. The patient is afebrile. Heart rate is 100, blood pressure 140/88, respirations 20 and saturation 96%. LUNGS: Bilateral vesicular breath sounds, clear anteriorly. CARDIOVASCULAR: S1 and S2 normal. No murmur or rub. ABDOMEN: Soft, nontender. No organomegaly. EXTREMITIES: No edema. PSYCHIATRIC: The patient is pleasant, cooperative. Judgment is appropriate. Affect is normal. Insight is pleasant. NEUROLOGIC: Alert and oriented x3. No focal deficits. Moving all 4 extremities. LABORATORY DATA: Workup shows white blood cell count is 10.8, hemoglobin 8.7, platelet count is 462. Sodium is 142, potassium is 4, creatinine is 6. CURRENT MEDICATIONS: Reviewed. ASSESSMENT AND PLAN: 1. Acute kidney injury, chronic kidney disease stage V now, end-stage renal disease, on dialysis via Perm-A-Cath. 2. 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 3. Vitamin D deficiency and secondary hyperparathyroidism, hyperphosphatemia, anemia. RECOMMENDATIONS: The patient for next dialysis treatment tomorrow. The patient is scheduled to get dialysis at [facility]. Continue heparin during dialysis. Continue the phosphate binder. Continue vitamin D supplementation. Continue the iron supplementation at this time. The patient has anemia, he can use RESHMA if cleared from hematology/oncology perspective. Then, the patient is stable for discharge from renal failure perspective. All questions were answered. Yandel Arechiga MD
--- NOTE | 2017-05-11 17:56 | US ---
PROCEDURE: Right upper extremity venous US CLINICAL HISTORY: Evaluate superficial venous system for possible right upper extremity AV access placement PHYSICIAN(S): Emmanuel Good M.D FINDINGS: Right basilic Vein The right basilic vein in the forearm is small, measuring 2-3 mm. The right basilic vein at the elbow is normal, measuring 4 mm. The right basilic vein above the elbow is large measuring 5-6 mm. Left cephalic vein The right cephalic vein in the forearm is small. The right cephalic vein at the elbow is normal, measuring 5 mm. The right cephalic vein above the elbow has a focal atretic area measuring 2-3 mm. IMPRESSION: 1. The right basilic vein above the elbow appears adequate for AV fistula placement. 2. The superficial veins in the forearm are small. 3. No thrombophlebitis is seen.
--- NOTE | 2017-05-11 18:45 | CP.PCM.PN ---
<Mykel Hickman - Last Filed: 05/11/17 19:08> Subjective - Date & Time of Evaluation Date of Evaluation: 05/11/17 Time of Evaluation: 10:30 - Subjective Subjective: Neurology Progress Note for Dr. Aggarwal Service. Patient seen and examined at bedside. No acute events reported overnight. No new reported paresthesias/paresis. Improved R wrist/hand swelling and pain, but new swelling and mild pain in L thumb. No fevers/chills, no erythema, and no pitting edema at swollen sites. Objective - Vital Signs/Intake and Output Vital Signs (last 24 hours): Temp Pulse Resp BP Pulse Ox 98.5 F 100 H 20 140/88 96 05/11/17 08:05 05/11/17 09:28 05/11/17 08:05 05/11/17 09:28 05/11/17 08:05 Intake and Output: 05/11/17 05/11/17 06:59 18:59 Intake Total 300 480 Output Total 150 100 Balance 150 380 - Labs Labs: 05/11/17 08:14 05/11/17 08:14 PT 13.4 Seconds (9.9-11.8) H 05/08/17 06:54 INR 1.24 (0.93-1.08) H 05/08/17 06:54 APTT 46.9 Seconds (23.7-30.8) H 05/08/17 06:54 - Additional Findings Additional findings: - Constitutional Appears: Non-toxic, No Acute Distress - Head Exam Head Exam: ATRAUMATIC, NORMAL INSPECTION, NORMOCEPHALIC - Eye Exam Eye Exam: EOMI, Normal appearance. absent: Conjunctival injection, Scleral icterus - ENT Exam ENT Exam: Mucous Membranes Moist - Neck Exam Neck Exam: absent: Lymphadenopathy, Thyromegaly - Respiratory Exam Respiratory Exam: Clear to Ausculation Bilateral, NORMAL BREATHING PATTERN. absent: Accessory Muscle Use, Chest Wall Tenderness, Decreased Breath Sounds, Rales, Rhonchi, Wheezes - Cardiovascular Exam Cardiovascular Exam: REGULAR RHYTHM, RRR, +S1, +S2. absent: Bradycardia, Tachycardia, Irregular Rhythm, JVD, +S4 - GI/Abdominal Exam GI & Abdominal Exam: Soft, Normal Bowel Sounds. absent: Distended, Firm, Rigid , Tenderness - Extremities Exam Extremities Exam: Decreased swelling in R hand and wrist, mildly swollen L thumb (new). absent: Calf Tenderness, Tenderness, Pedal edema - Neurological Exam Neurological Exam: Alert, Awake, CN II-XII Intact, Oriented x3 LLE/LUE/RLE and L inspector government property 4/5 motor strength RUE and R inspector government property 4/5 motor strength Sensory grossly intact and equal bilaterally - Psychiatric Exam Psychiatric exam: Normal Affect, Normal Mood - Skin Skin Exam: Dry, Intact, Normal Color, Warm Assessment and Plan - Assessment and Plan (Free Text) Assessment: This is a 71 yo M with PMH of HIV, HTN, Prostate Ca, CKD, and chronic gout who presented with acute GI bleed and sepsis 2/2 pyelonephritis, developing acute renal failure requiring dialysis. Neuro was consulted for reported inability to move his R arm. His symptoms of R arm are suspicious for venous thrombosis vs gout attack. Head CT was negative for acute findings, only notable for stable age-related neurodegenerative changes. Duplex negative for thrombosis. Sensation in R arm remains intact, and he admits he was voluntarily restricting his motion 2/2 pain. Patient instructed to follow up with Neurology as outpatient for EMG. Plan: 1) UE duplex negative for thrombosis, swelling appears to be self-resolving 2) CT head negative for acute process 3) Medical management as per primary 4) PT/OT 5) EMG as outpatient Patient reviewed and discussed with attending, Dr. Aggarwal. <Kelvin Aggarwal - Last Filed: 05/11/17 22:34> Objective - Vital Signs/Intake and Output Vital Signs (last 24 hours): Temp Pulse Resp BP Pulse Ox 98.5 F 100 H 20 140/88 96 05/11/17 08:05 05/11/17 09:28 05/11/17 08:05 05/11/17 09:28 05/11/17 08:05 Intake and Output: 05/11/17 05/12/17 18:59 06:59 Intake Total 480 Output Total 100 Balance 380 - Labs Labs: 05/11/17 08:14 05/11/17 08:14 PT 13.4 Seconds (9.9-11.8) H 05/08/17 06:54 INR 1.24 (0.93-1.08) H 05/08/17 06:54 APTT 46.9 Seconds (23.7-30.8) H 05/08/17 06:54 Attending/Attestation - Attestation I have personally seen and examined this patient.: Yes I have fully participated in the care of the patient.: Yes I have reviewed all pertinent clinical information, including history, physical exam and plan: Yes
--- NOTE | 2017-05-15 08:16 | CP.PCM.PCO ---
Physician Communication Note - Physician Communication Note Physician Communication Note: pt was discharged
== END 2017-05-11 17:26 | DRG 974 ==
LOC: ED 16:57 → ERH 21:13 → CCU 21:33 → 2RNO 05-01 17:23 → 5RSO 05-04 17:45
PROVIDERS: ADMIT Family Medicine; ATTEND Family Medicine
PROC: 5A09357 Assistance with Respiratory Ventilation, Less than 24 Consecutive Hours, Continuous Positive Airway Pressure (ICD-10-PCS; 2017-05-05)
PROC: 02H633Z Insertion of Infusion Device into Right Atrium, Percutaneous Approach (ICD-10-PCS; principal; 2017-05-08)
PROC: B543ZZA Ultrasonography of Right Jugular Veins, Guidance (ICD-10-PCS; 2017-05-08)
PROC: 5A1D60Z (ICD-10-PCS; 2017-05-08)
DX: A41.51 Sepsis due to Escherichia coli [E. coli] (principal); N17.0 Acute kidney failure with tubular necrosis; B20 Human immunodeficiency virus [HIV] disease; N18.6 End stage renal disease; I21.4 Non-ST elevation (NSTEMI) myocardial infarction; R65.21 Severe sepsis with septic shock; K55.9 Vascular disorder of intestine, unspecified; A04.7 Enterocolitis due to Clostridium difficile; N25.81 Secondary hyperparathyroidism of renal origin; N12 Tubulo-interstitial nephritis, not specified as acute or chronic; E87.2 Acidosis; I12.0 Hypertensive chronic kidney disease with stage 5 chronic kidney disease or end stage renal disease; K92.1 Melena; E11.22 Type 2 diabetes mellitus with diabetic chronic kidney disease; E11.610 Type 2 diabetes mellitus with diabetic neuropathic arthropathy; M14.679 Charcot's joint, unspecified ankle and foot; M1A.9XX0 Chronic gout, unspecified, without tophus (tophi); E11.621 Type 2 diabetes mellitus with foot ulcer; L97.529 Non-pressure chronic ulcer of other part of left foot with unspecified severity; D63.8 Anemia in other chronic diseases classified elsewhere; E11.51 Type 2 diabetes mellitus with diabetic peripheral angiopathy without gangrene; N45.3 Epididymo-orchitis; D50.9 Iron deficiency anemia, unspecified; N43.3 Hydrocele, unspecified; K40.90 Unilateral inguinal hernia, without obstruction or gangrene, not specified as recurrent; E55.9 Vitamin D deficiency, unspecified; E83.39 Other disorders of phosphorus metabolism; N13.9 Obstructive and reflux uropathy, unspecified; F43.22 Adjustment disorder with anxiety; Z89.412 Acquired absence of left great toe; Z85.46 Personal history of malignant neoplasm of prostate

== ENCOUNTER 2017-06-01 09:40 | Day surgery (SDC) | payer MEDICARE ==
[2017-05-23 11:03] VITALS: BMI 23.6
[2017-06-01 09:58] VITALS: RESP 20
[2017-06-01] MEDS ORDERED: Lidocaine 1% Inj (20ml) ONE (10:53)
[2017-06-01] MEDS ORDERED: Bupivacaine 0.5% Inj(30mL) ONE (10:53)
[2017-06-01] MEDS ORDERED: Propofol 10 mg/ml Inj (20 ML) ONE ×2 (11:53→13:00)
[2017-06-01] MEDS ORDERED: Midazolam 2 MG/2 ML VIAL ONE ×2 (11:53→12:20)
[2017-06-01] MEDS ORDERED: Rocuronium 10 mg/ml (5 ml) ONE (11:59)
[2017-06-01] MEDS ORDERED: Phenylephrine 10 mg/ml Inj ONE (12:45)
[2017-06-01] MEDS ORDERED: HYDROmorphone 0.5 mg/0.5 ml ISec IVP PRN (13:35)
--- NOTE | 2017-06-01 14:08 | PCM.SURG1 ---
Surgeon's Initial Post Op Note - Surgeon's Notes Surgeon: Dr. Cox Dairy Nutrition Specialist: Jose J PGY1 Type of Anesthesia: General Endo Anesthesia Administered By: Dr. Washington Pre-Operative Diagnosis: ESRD on HD Operative Findings: see operative report Post-Operative Diagnosis: ESRD on HD Operation Performed: Creation of Left upper arm Av fistula and vein mapping Specimen/Specimens Removed: N/A Estimated Blood Loss: EBL {In ML}: 5 Blood Products Given: N/A Drains Used: No Drains Date of Surgery/Procedure: 06/01/17 Time of Surgery/Procedure: 12:10
[2017-06-01 15:49] VITALS: TEMP 98; O2SAT 93
[2017-06-01 16:02] VITALS: BP 143/71; PULSE 98
--- NOTE | 2017-06-04 09:51 | OP ---
PROCEDURE DATE: 06/01/2017 PREOPERATIVE DIAGNOSIS: End-stage renal disease. POSTOPERATIVE DIAGNOSIS: End-stage renal disease. PROCEDURE PERFORMED: 1. Creation of the arteriovenous fistula in the left upper arm between the basilic vein and brachial artery. 2. Venous mapping of the left upper arm veins. SURGEON: Kevin Cox MD INFLATED BALL MOLDER: Dr. Lux. TYPE OF ANESTHESIA: General endotracheal anesthesia. ANESTHESIA ADMINISTERED BY: Dr. Washington. ESTIMATED BLOOD LOSS: Minimal. SPECIMEN: None. INDICATIONS: The patient is a 71-year-old male with end-stage renal disease, on dialysis via the tunneled catheter. The patient needs access for prolonged hemodialysis and therefore was scheduled for creation of the AV fistula. DESCRIPTION OF PROCEDURE: The patient was brought to the operating room and placed on operating room table in supine position. The patient was connected to the EKG, blood pressure, and pulse oximetry monitors. The patient then underwent general endotracheal anesthesia and was prepped and draped in usual sterile fashion. Per standard time-out procedure took place and everybody in the room agreed as to the patient identity, diagnosis, and procedure to be performed. A marked side of the surgery as well as operative plan and postoperative care plan were discussed. First using ultrasound probe, a careful evaluation of the upper arm was done and the cephalic vein in the forearm was carefully examined. There was about 2.5 mm in diameter at the wrist with pulse and calcified vessel. Given the findings, decision was made to proceed upper portion of the arm as the proximal portion was not suitable for creation of AV fistula. The cephalic vein on the upper arm appeared to be completely gone with just tiny veins present. The basilic vein appeared to be patent and about 3.5 up to 6 mm in the upper portion with good flow and no strictures. This was carefully marked as well as there was side branches marked on that vessel. The course of the brachial artery was also marked and vessel itself appeared to be fairly large of about 4 mm in diameter. Once this was all done, an incision site was marked and then procedure was injected in the area of the incision and made incision directly overlying probe vessels using 15 blade. Careful dissection was done through subcutaneous fat and the basilic vein was exposed of couple of branches right at the incision site. Those branches were carefully taken down and ligated with 4-0 silk ties. The vein itself was marked on the surface and noted to avoid any twisting. Once this was done, the vein was mobilized distally in order to gain adequate length for connection to the brachial artery. This was dissected out and once the adequate length was obtained, the vein was transected and distal portion was ligated with 4-0 Vicryl stitch. The vein itself was then carefully mobilized for about 4 cm in order to gain adequate length for anastomosis creation. The vein was then flushed with heparinized saline and slightly distended proximally after putting pressure distally. It distended nicely to about 3.5 to 4 mm in diameter. The patient received 4000 units of heparin and about 2 minutes later, he artery which was also mobilized previously and elevated on vessel loop ties, it was now clamped and so its side branch with bulldog clamp and then longitudinal arteriotomy was done for about 1.5 cm in length. Vessel was flushed with heparinized saline and then a standard end-to-side anastomosis between the basilic vein and brachial artery was created using 6-0 Prolene stitches. Once this anastomosis completed, the forward flow was established by the first opening the vein, then releasing the distal artery and clamping back and then releasing proximal artery and then reopening the distal artery in order to avoid any embolic event into the avelino. Once this was done and decent radial pulse was noted in the proximal artery as it was prior to the surgery and there was good thrill noted on the basilic vein. At this point, the wound was copiously irrigated and all the irrigant fluid was suctioned out. There was excellent hemostasis and the wound was closed in layers using 3-0 Vicryl, subcutaneous tissue, and 4-0 Monocryl for skin. Sterile Dermabond dressing was applied to the wound. The patient tolerated the procedure well and there was no complications. The patient was awakened and transferred to recovery room for further observation. Kevin Cox MD
== END 2017-06-01 17:30 ==
LOC: SDS 09:40
PROVIDERS: ATTEND General Practice
DX: I12.0 Hypertensive chronic kidney disease with stage 5 chronic kidney disease or end stage renal disease (principal); N18.6 End stage renal disease; Z99.2 Dependence on renal dialysis
CPT/HCPCS: 36415; 36819; 84132; J0690; J1170; J1644 ×2; J2001; J2250; J2370; J2704; J3010

== ENCOUNTER 2017-07-05 21:32 | Inpatient (IN) | payer MEDICARE, OTHER ==
[2017-07-05 21:46] VITALS: BMI 23.3
[2017-07-05] MEDS ORDERED: Sodium Chloride 0.9% 500 ML IV STA (22:02)
[2017-07-05] MEDS ORDERED: Morphine 4 mg/ml ISec IVP STA (22:02)
--- NOTE | 2017-07-05 22:02 | ED PDOC ---
Arrival/HPI - General Historian: Patient - History of Present Illness Time/Duration: Other (3 hours) Quality: Aching Context: Home - General Chief Complaint: GI Problem Time Seen by Provider: 07/05/17 21:44 - History of Present Illness Narrative History of Present Illness (Text): 07/05/17 21:59 A 71 year old male, whose past medical history includes HIV, hypertension, prostate cancer, chronic kidney disease, and charcots gout, presents to the emergency department c/o abdominal pain x 3 hours. ([address]) Past Medical History - Provider Review Nursing Documentation Reviewed: Yes - Infectious Disease Hx of Infectious Diseases: None - Tetanus Immunization Tetanus Immunization: Up to Date - Cardiac Hx Hypertension: Yes Hx Pacemaker: No - Pulmonary Hx Respiratory Disorders: No - Neurological Hx Neurological Disorder: No - HEENT Hx HEENT Disorder: No - Renal Hx Renal Disorder: No - Endocrine/Metabolic Hx Diabetes Mellitus Type 1: No Hx Diabetes Mellitus Type 2: No - Hematological/Oncological Hx Blood Transfusions: No - Integumentary Hx Dermatological Disorder: Yes (CELLULITIS OF L ANKLE 16.AMPUTATED 1ST TOE LEFT FOOT.,I/D RT HAND ABCES) Other/Comment: Ulcer of second toe BL - Musculoskeletal/Rheumatological Hx Musculoskeletal Disorders: Yes - Gastrointestinal Hx Gastrointestinal Disorders: No - Genitourinary/Gynecological Hx Genitourinary Disorders: Yes Hx Prostate Cancer: Yes - Psychiatric Hx Psychophysiologic Disorder: No Hx Substance Use: No - Surgical History Hx Amputation: Yes (Left first toe) Other/Comment: prostatectomy, incision and drainage of right hand abscess - Anesthesia Hx Anesthesia Reactions: No Hx Malignant Hyperthermia: No Family/Social History - Physician Review Nursing Documentation Reviewed: Yes Family/Social History: Other (noncontributory) Smoking Status: Never Smoked Hx Alcohol Use: Yes (ON OCCASION) Hx Substance Use: No Allergies/Home Meds Allergies/Adverse Reactions: Allergies No Known Allergies Allergy (Verified 04/29/17 17:01) Home Medications: Home Meds Medication Instructions Recorded Confirmed Enoxaparin [Lovenox] 40 mg SQ DAILY 05/23/17 07/05/17 Ferrous Sulfate [Feosol] 1 tab PO BID 05/23/17 07/05/17 Meclizine [Antivert] 25 mg PO Q8H PRN 05/23/17 07/05/17 Vitamin B Complex/Vit C/Folic 1 tab PO DAILY 05/23/17 07/05/17 [Nephro-Christel] hydrALAZINE [hydralazine 50 mg PO BID 05/23/17 07/05/17 Hydrochloride] Review of Systems - Review of Systems Constitutional: Normal. absent: Fatigue, Weight Change, Fevers Eyes: Normal ENT: Normal Respiratory: Normal. absent: SOB, Cough, Sputum, Wheezing Cardiovascular: Normal. absent: Chest Pain, Palpitations Gastrointestinal: Abdominal Pain. absent: Nausea, Vomiting Genitourinary Male: Normal. absent: Dysuria, Frequency, Hematuria Musculoskeletal: Normal Skin: Normal Neurological: Normal Endocrine: Normal Hemo/Lymphatic: Normal Psychiatric: Normal Physical Exam Temperature: Afebrile Blood Pressure: Normal Pulse: Regular Respiratory Rate: Normal Appearance: Positive for: Well-Appearing, Non-Toxic, Comfortable Pain Distress: None Mental Status: Positive for: Alert and Oriented X 3 - Systems Exam Head: Present: Atraumatic, Normocephalic Pupils: Present: PERRL Extroacular Muscles: Present: EOMI Conjunctiva: Present: Normal Mouth: Present: Moist Mucous Membranes Neck: Present: Normal Range of Motion. No: Meningeal Signs Respiratory/Chest: Present: Clear to Auscultation, Good Air Exchange. No: Respiratory Distress, Accessory Muscle Use Cardiovascular: Present: Regular Rate and Rhythm, Normal S1, S2. No: Murmurs Abdomen: Present: Tenderness (mild generalized abdominal pain), Normal Bowel Sounds. No: Distention, Peritoneal Signs, Rebound, Guarding Genitourinary Male: Present: Normal External Genitalia, Testicle Tenderness. No : Penile Discharge, Penile Swelling, Erythema, Hernias, Testicle Swelling, Prostate Tenderness Back: Present: Normal Inspection. No: CVA Tenderness Upper Extremity: Present: Normal Inspection, Normal ROM, NORMAL PULSES, Neurovascularly Intact, Capillary Refill < 2s. No: Cyanosis, Edema Lower Extremity: Present: Normal Inspection, NORMAL PULSES, Normal ROM, Capillary Refill < 2 s. No: Edema, CALF TENDERNESS Neurological: Present: GCS=15, CN II-XII Intact, Speech Normal, Motor Func Grossly Intact, Normal Sensory Function, Normal Cerebellar Funct, Gait Normal Skin: Present: Warm, Dry, Normal Color. No: Rashes Psychiatric: Present: Alert, Oriented x 3, Normal Insight, Normal Concentration Vital Signs Temp Pulse Resp BP Pulse Ox 07/06/17 02:55 97.9 F 103 H 20 133/67 96 07/06/17 01:00 97.9 F 99 H 22 146/73 93 L 07/05/17 23:33 97.7 F 102 H 21 146/90 95 07/05/17 21:33 97.6 F 100 H 19 167/88 H 97 Medical Decision Making Re-evaluation Time: 01:51 Reassessment Condition: Re-examined, Improving,but remains with symptoms - Lab Interpretations I have reviewed the lab results: Yes Interpretation: Abnormal lab values ED Course and Treatment: 07/06/17 01:[address] Adams regarding patient c/o abdominal pain. We reviewed pmh hiv, htn, hemodyalisis. He recommended observation, and to have claim review medical director see patient. Dr. Sharif for ID consult. I spoke with Dr. Chau, claim review medical director, who stated will be coming to examine patient. Patient and sister agrees with plan for admission (Sarah Lane) 07/06/17 03:33 reviewed the PAs chart concern for infected stone, which is at high risk for decompensation. will discuss with residents about stat nephrostomy tube (Lan Almodovar) - Lab Interpretations Lab Results: 07/05/17 22:10 07/05/17 22:10 Lab Results 07/06/17 00:45: Urine Color Yellow, Urine Appearance Cloudy, Urine pH 7.0, Ur Specific [place] 1.020, Urine Protein >=300 H, Urine Glucose (UA) Negative, Urine Ketones Negative, Urine Blood Large H, Urine Nitrate Negative, Urine Bilirubin Negative, Urine Urobilinogen 0.2, Ur Leukocyte Esterase Large H, Urine RBC 2 - 5, Urine WBC Tntc, Ur Epithelial Cells 0 - 2, Urine Bacteria Small 07/05/17 22:54: POC Glucose (mg/dL) 114 H 07/05/17 22:10: pO2 24 L, VBG pH 7.39, VBG pCO2 51.0, VBG HCO3 30.9 H, VBG Total CO2 32.5 H, VBG O2 Sat (Calc) 49.2, VBG Base Excess 4.7 H, VBG Potassium 4.4, Sodium 137.0, Chloride 102.0, Glucose 108, Lactate 1.7, FiO2 21.0, Venous Blood Potassium 4.4 07/05/17 22:10: Sodium 138, Chloride 98, Potassium 4.3, Carbon Dioxide 31, Anion Gap 14, BUN 16, Creatinine 4.3 H, Est GFR ( Amer) 17, Est GFR (Non- Af Amer) 14, Random Glucose 114 H, Calcium 9.3, Total Bilirubin 0.7, AST 96 H D , ALT 45, Alkaline Phosphatase 100, Lactate Dehydrogenase 622, Total Creatine Kinase 45, Troponin I 0.06 D, Total Protein 8.7 H, Albumin 3.9, Globulin 4.8, Albumin/Globulin Ratio 0.8 L, Lipase 74 07/05/17 22:10: WBC 14.8 H D, RBC 3.35 L, Hgb 10.7 L D, Hct 33.1 L, MCV 98.8, MCH 31.9, MCHC 32.3, RDW 15.7 H, Plt Count 275, MPV 10.6, Gran % 71.2 H, Lymph % (Auto) 16.1 L, [place] % (Auto) 12.0 H, Eos % (Auto) 0.5 L, Baso % (Auto) 0.2, Gran # 10.55 H, Lymph # 2.4, [place] # 1.8 H, Eos # 0.1, Baso # 0.03 07/05/17 21:58: POC Glucose (mg/dL) 56 L - RAD Interpretation Narrative RAD Interpretations (Text): 07/06/17 00:23 CT Scan ABD PELVIS W/O PO OR IV CONT Exam Date: 07/05/17 This imaging exam was performed at [facility] EXAM: CT Abdomen and Pelvis Without Intravenous Contrast CLINICAL HISTORY: 71 years old, male; Pain; Abdominal pain; Acute TECHNIQUE: Axial computed tomography images of the abdomen and pelvis without intravenous contrast. All CT scans at this facility use one or more dose reduction techniques, viz.: automated exposure control; ma/kV adjustment per patient size (including targeted exams where dose is matched to indication; i.e. head); or iterative reconstruction technique. MIP reconstructed images were created and reviewed. Coronal and sagittal reformatted images were created and reviewed. COMPARISON: CT - CHEST,ABDOMEN,PELVIS W/O CONT 2017-04-29 18:36 FINDINGS: Lower thorax: The bilateral lung bases are clear. ABDOMEN: Liver: No acute findings Gallbladder and bile ducts: The gallbladder is distended, without calcified stones. No intra-extrahepatic biliary ductal dilation. Pancreas: Limited evaluation secondary to the lack of intravenous contrast. Spleen: No acute findings. Adrenals: No acute findings. Kidneys and ureters: No obstructing stones. Moderate left sided hydroureteronephrosis extending to the left ureterovesicular junction without an obstructing stone visualized. PELVIS: Bladder: The bladder is moderately thickened and contains an air-fluid level , for which recent intervention is suspected. Reproductive: No acute findings. Appendix: The appendix is of normal-caliber (series 2, image 116). ABDOMEN and PELVIS: Stomach and bowel: Colonic diverticulosis, without diverticulitis. A fat containing umbilical hernia is present. Peritoneum: No acute findings. Lymph nodes: Limited evaluation without intravenous contrast. Vasculature: Calcified atherosclerotic disease. Bones: No acute fracture. IMPRESSION: Moderate left-sided hydroureteronephrosis extending to the left ureterovesicular junction without an obstructing stone visualized. Significant bladder wall thickening with an air-fluid level for which recent intervention is suspected. Dictated By: Fidelia Flores MD Dictated Date/Time: 07/06/17 0007 ([address]) Radiology Orders: 07/05/17 22:05 CHEST PORTABLE [RAD] Stat 07/05/17 22:07 ABD & PELVIS W/O PO OR IV CONT [CT] Stat - Medication Orders Current Medication Orders: Abacavir Sulfate (Ziagen) 300 mg PO BID DWAIN Acetaminophen (Tylenol 325mg Tab) 650 mg PO Q4H PRN PRN Reason: Fever >100.4 F Last Admin: 07/06/17 03:12 Dose: 650 mg MAR Pain/Vitals Document 07/06/17 03:12 AB (Rec: 07/06/17 03:14 AB [id number]) Pain Reassessment Is This A Pain ReAssessment? Yes Sleep Is patient sleeping during reassessment? No Presence of Pain Presence of Pain Yes Pain Scale Used Pain Scale Used Numeric Location Left, Right or Bilateral Bilateral Upper or Lower Lower Pain Location Body Site Ankle Description Constant Intensity 4 Scale Used Numeric Aggravating Factors None Alleviating Factors Medication Albuterol/Ipratropium (Duoneb 3 Mg/0.5 Mg (3 Ml) Ud) 3 ml IH Q2H PRN PRN Reason: Shortness of Breath Allopurinol (Zyloprim) 300 mg PO DAILY [facility] Amlodipine Besylate (Norvasc) 10 mg PO DAILY [facility] Ergocalciferol (Drisdol 50,000 Intl Units Cap) 1 cap PO Q7D [facility] Ferrous Sulfate (Feosol) 324 mg PO BID [facility] Heparin Sodium (Porcine) (Heparin) 5,000 units SC Q12 DWAIN PRN Reason: Protocol Ceftriaxone Sodium (Rocephin 1 Gram Ivpb) 1 gm in 100 mls @ 100 mls/hr IVPB DAILY DWAIN PRN Reason: Protocol Metronidazole (Flagyl) 500 mg in 100 mls @ 100 mls/hr IVPB Q8 DWAIN PRN Reason: Protocol Indomethacin (Indocin) 25 mg PO TID DWAIN Lamivudine (Epivir) 50 mg PO DAILY [facility] Meclizine HCl (Antivert) 25 mg PO Q8H PRN PRN Reason: Dizziness Ondansetron HCl (Zofran Inj) 4 mg IVP DAILY [facility] Pantoprazole Sodium (Protonix Inj) 40 mg IVP 0600 [facility] Sevelamer HCl (Renagel) 1,[address] [facility] Vitamin B Complex/Vit C/Folic Acid (Nephro-Christel) 1 tab PO DAILY [facility] Discontinued Medications Famotidine (Pepcid) 20 mg IVP STAT STA Stop: 07/05/17 22:03 Last Admin: 07/05/17 22:36 Dose: 20 mg IVP Administration Document 07/05/17 22:36 AB (Rec: 07/05/17 22:36 AB [id number]) Charges for Administration # of IVP Administrations 1 Sodium Chloride (Sodium Chloride 0.9%) 500 mls @ 1,000 mls/hr IV .Q30M STA Stop: 07/05/17 22:31 Last Admin: 07/05/17 22:36 Dose: 1,000 mls/hr eMAR Start Stop Document 07/05/17 22:36 AB (Rec: 07/05/17 22:36 AB [id number]) Intravenous Solution Start Date 07/05/17 Start Time 22:36 End Date 07/05/17 Ceftriaxone Sodium (Rocephin 1 Gram Ivpb) 1 gm in 100 mls @ 200 mls/hr IVPB STAT STA PRN Reason: Protocol Stop: 07/06/17 02:00 Last Admin: 07/06/17 01:56 Dose: 200 mls/hr eMAR Start Stop Document 07/06/17 01:56 AB (Rec: 07/06/17 01:56 AB [id number]) Intravenous Solution Start Date 07/06/17 Start Time 01:56 End Date 07/06/17 End time 02:26 Total Infusion Time 30 Sodium Chloride (Sodium Chloride 0.9%) 250 mls @ 0 mls/hr IV .Q0M ONE PRN Reason: Per Protocol Stop: 07/06/17 02:31 Last Admin: 07/06/17 02:54 Dose: 250 mls/hr eMAR Start Stop Document 07/06/17 02:54 AB (Rec: 07/06/17 02:54 AB [id number]) Intravenous Solution Start Date 07/06/17 Start Time 02:54 End Date 07/06/17 Morphine Sulfate (Morphine) 2 mg IVP STAT STA Stop: 07/05/17 22:03 Last Admin: 07/05/17 22:32 Dose: 2 mg MAR Pain Assessment Document 07/05/17 22:32 AB (Rec: 07/05/17 22:35 AB [id number]) Pain Reassessment Is this a pain reassessment? Yes Sleep Is patient sleeping during reassessment? No Presence of Pain Presence of Pain Yes Pain Scale Used Pain Scale Used Numeric Location Left, Right or Bilateral Bilateral Upper or Lower Lower Pain Location Body Site Thigh Description Description Constant Intensity of Pain at present 7 Aggravating Factors ADL's Changing Position Exercise/Activity Alleviating Factors/Management Medication Techniques Alleviating Factors Medication IVP Administration Document 07/05/17 22:32 AB (Rec: 07/05/17 22:35 AB [id number]) Charges for Administration # of IVP Administrations 1 Ondansetron HCl (Zofran Inj) 4 mg IVP STAT STA Stop: 07/05/17 22:04 Last Admin: 07/05/17 22:36 Dose: 4 mg IVP Administration Document 07/05/17 22:36 AB (Rec: 07/05/17 22:36 AB [id number]) Charges for Administration # of IVP Administrations 1 Disposition/Present on Arrival - Present on Arrival Any Indicators Present on Arrival: No History of DVT/PE: No History of Uncontrolled Diabetes: No Urinary Catheter: No History of Decub. Ulcer: No History Surgical Site Infection Following: None - Disposition Have Diagnosis and Disposition been Completed?: Yes Disposition Time: 01:53 Patient Plan: Admission - Disposition Diagnosis: Abdominal pain, Pyelonephritis, HIV (human immunodeficiency virus infection) Disposition: HOSPITALIZED Patient Problems: Current Active Problems Problem Status Onset Abdominal pain Acute HIV (human immunodeficiency virus infection) Acute Pyelonephritis Acute Condition: STABLE Discharge Instructions (ExitCare): Human Immunodeficiency Virus and Acquired Immune Deficiency Syndrome (ED) Forms: [employer] (Faroese)
[2017-07-05 22:32] LABS: VENOUS BLOOD GAS BASE EXCESS 4.7 mmol/L (0.0-2.0); VENOUS BLOOD PH 7.39 (7.32-7.43)
[2017-07-05 22:35] LABS: BASO # 0.03 K/mm3 (0.0-2.0); BASO % 0.2 % (0.0-3.0); EOS # 0.1 (0.0-0.7); EOS % 0.5 % (1.5-5.0); GRAN # 10.55 (1.4-6.5); GRAN % 71.2 % (50.0-68.0); HEMATOCRIT 33.1 % (42.0-52.0); LYMPH # 2.4 (1.2-3.4); LYMPH % 16.1 % (22.0-35.0); MEAN CELL VOLUME 98.8 fl (80.0-105.0); MEAN CORPUSCULAR HEMOGLOBIN 31.9 pg (25.0-35.0); MEAN CORPUSCULAR HGB CONC 32.3 g/dl (31.0-37.0); MEAN PLATELET VOLUME 10.6 fl (7.0-11.0); MONO # 1.8 (0.1-0.6); RED CELL DISTRIBUTION WIDTH 15.7 % (11.5-14.5); WHITE BLOOD COUNT 14.8 10^3/ul (4.5-11.0)
[2017-07-05 22:50] LABS: TROPONIN I 0.06 ng/mL
[2017-07-05 22:57] LABS: ALB/GLOB RATIO 0.8 (1.1-1.8); BILIRUBIN,TOTAL 0.7 mg/dL (0.2-1.3); CALCIUM 9.3 mg/dL (8.4-10.5); POTASSIUM 4.3 mmol/L (3.6-5.0); TOTAL PROTEIN 8.7 g/dL (5.8-8.3)
--- NOTE | 2017-07-06 00:08 | CT ---
EXAM: CT Abdomen and Pelvis Without Intravenous Contrast CLINICAL HISTORY: 71 years old, male; Pain; Abdominal pain; Acute TECHNIQUE: Axial computed tomography images of the abdomen and pelvis without intravenous contrast. All CT scans at this facility use one or more dose reduction techniques, viz.: automated exposure control; ma/kV adjustment per patient size (including targeted exams where dose is matched to indication; i.e. head); or iterative reconstruction technique. MIP reconstructed images were created and reviewed. Coronal and sagittal reformatted images were created and reviewed. COMPARISON: CT - CHEST,ABDOMEN,PELVIS W/O CONT 2017-04-29 18:36 FINDINGS: Lower thorax: The bilateral lung bases are clear. ABDOMEN: Liver: No acute findings Gallbladder and bile ducts: The gallbladder is distended, without calcified stones. No intra-extrahepatic biliary ductal dilation. Pancreas: Limited evaluation secondary to the lack of intravenous contrast. Spleen: No acute findings. Adrenals: No acute findings. Kidneys and ureters: No obstructing stones. Moderate left sided hydroureteronephrosis extending to the left ureterovesicular junction without an obstructing stone visualized. PELVIS: Bladder: The bladder is moderately thickened and contains an air-fluid level, for which recent intervention is suspected. Reproductive: No acute findings. Appendix: The appendix is of normal-caliber (series 2, image 116). ABDOMEN and PELVIS: Stomach and bowel: Colonic diverticulosis, without diverticulitis. A fat containing umbilical hernia is present. Peritoneum: No acute findings. Lymph nodes: Limited evaluation without intravenous contrast. Vasculature: Calcified atherosclerotic disease. Bones: No acute fracture. IMPRESSION: Moderate left-sided hydroureteronephrosis extending to the left ureterovesicular junction without an obstructing stone visualized. Significant bladder wall thickening with an air-fluid level for which recent intervention is suspected.
[2017-07-06 01:02] LABS: URINE BILIRUBIN NEGATIVE (NEGATIVE); URINE BLOOD LARGE (NEGATIVE); URINE GLUCOSE (UA) NEGATIVE (NEGATIVE); URINE KETONE NEGATIVE (NEGATIVE); URINE LEUKOCYTE ESTERASE LARGE Leu/uL (NEGATIVE); URINE PROTEIN >=300 mg/dL (<30 mg/dL); URINE UROBILINOGEN 0.2 E.U./dL (<1 E.U./dL)
[2017-07-06 01:06] LABS: URINE APPEARANCE CLOUDY (CLEAR); URINE COLOR YELLOW (YELLOW)
[2017-07-06 01:10] LABS: URINE BACTERIA SMALL (NEG); URINE EPITHELIAL CELLS 0 - 2 /hpf (0-5); URINE WBC TNTC /hpf (0-6)
[2017-07-06] MEDS ORDERED: cefTRIAXone 1 gm 1 GM/100 ML BAG IVPB STA (01:31)
[2017-07-06] MEDS ORDERED: Albuterol-Ipratrop 3 mg / 0.5 (3 ml) UD IH PRN (02:22)
[2017-07-06] MEDS ORDERED: Sodium Chloride 0.9% 250 ML IV ONE (02:30)
--- NOTE | 2017-07-06 03:01 | CP.PCM.HP ---
History of Present Illness - History of Present Illness History of Present Illness: 71 year old male with past medical history of ESRD on HD (Sunday// Sunday), HIV, Prostate cancer s/p prostatectomy, HTN, Gout presents to the ED for en episode of vomiting. Patient states he returned home from hemodialysis today around 6 pm and vomited up some fluid. Patient denied any blood in the vomit. In addition, the patient states he has had lower abdominal pain as well extending into the genital region. Patient denies shortness of breath, chest pain, fever, sore throat, recent sick contacts, diarrhea or any other complaints at this time. Past Medical History: ESRD on HD (Sunday//Sunday), HIV, Prostate cancer s/p prostatectomy, HTN, Gout Past Surgical : prostatcetomy Allergies: NKDA Social: denies alocohol, tobacco, or drug use Family Hx: denies Medications: reviewed Present on Admission - Present on Admission Any Indicators Present on Admission: No Review of Systems - Constitutional Constitutional: absent: Chills, Fever - EENT Eyes: absent: Blurred Vision, Change in Vision Ears: absent: Disequilibrium Nose/Mouth/Throat: absent: Nasal Congestion, Nasal Discharge - Cardiovascular Cardiovascular: absent: Chest Pain, Dyspnea, Edema - Respiratory Respiratory: absent: Cough - Gastrointestinal Gastrointestinal: Abdominal Pain, Nausea, Vomiting - Musculoskeletal Musculoskeletal: absent: Arthralgias, Numbness, Tingling - Integumentary Integumentary: absent: Rash, Sores - Neurological Neurological: absent: Disequilibrium, Dizziness, Tingling, Weakness Past Patient History - Infectious Disease Hx of Infectious Diseases: None - Tetanus Immunizations Tetanus Immunization: Up to Date - Past Medical History & Family History Past Medical History?: Yes - Past Social History Smoking Status: Never Smoked - CARDIAC Hx Hypertension: Yes Hx Pacemaker: No - PULMONARY Hx Respiratory Disorders: No - NEUROLOGICAL Hx Neurological Disorder: No - HEENT Hx HEENT Problems: No - RENAL Hx Chronic Kidney Disease: No - ENDOCRINE/METABOLIC Hx Diabetes Mellitus Type 1: No Hx Diabetes Mellitus Type 2: No - HEMATOLOGICAL/ONCOLOGICAL Hx Blood Transfusions: No - INTEGUMENTARY Hx Dermatological Problems: Yes (CELLULITIS OF L ANKLE 86-16.AMPUTATED 1ST TOE LEFT FOOT.,I/D RT HAND ABCES) Other/Comment: Ulcer of second toe BL - MUSCULOSKELETAL/RHEUMATOLOGICAL Hx Musculoskeletal Disorders: Yes - GASTROINTESTINAL Hx Gastrointestinal Disorders: No - GENITOURINARY/GYNECOLOGICAL Hx Genitourinary Disorders: Yes Hx Prostate Cancer: Yes - PSYCHIATRIC Hx Psychophysiologic Disorder: No Hx Substance Use: No - SURGICAL HISTORY Hx Amputation: Yes (Left first toe) Other/Comment: prostatectomy, incision and drainage of right hand abscess - ANESTHESIA Hx Anesthesia Reactions: No Hx Malignant Hyperthermia: No Meds Allergies/Adverse Reactions: Allergies Allergy/AdvReac Type Severity Reaction Status Date / Time No Known Allergies Allergy Verified 04/29/17 17:01 Physical Exam - Constitutional Appears: Non-toxic, No Acute Distress - Head Exam Head Exam: ATRAUMATIC, NORMAL INSPECTION, NORMOCEPHALIC - Eye Exam Eye Exam: EOMI, Normal appearance, PERRL Pupil Exam: NORMAL ACCOMODATION - ENT Exam ENT Exam: Mucous Membranes Moist - Respiratory Exam Respiratory Exam: Clear to Auscultation Bilateral, NORMAL BREATHING PATTERN - Cardiovascular Exam Cardiovascular Exam: REGULAR RHYTHM, +S1, +S2 - GI/Abdominal Exam GI & Abdominal Exam: Normal Bowel Sounds, Tenderness Additional comments: tenderness to palpation of lower left and right abdominal quadrants - Extremities Exam Extremities exam: Positive for: normal inspection, pedal pulses present Additional comments: charcots gout on both feet medially - Neurological Exam Neurological exam: Alert, Oriented x3 - Skin Skin Exam: Normal Color, Warm Results - Vital Signs Recent Vital Signs: Last Vital Signs Temp 97.9 F 07/06/17 01:00 Pulse 99 H 07/06/17 01:00 Resp 22 07/06/17 01:00 BP 146/73 07/06/17 01:00 Pulse Ox 93 L 07/06/17 01:00 - Labs Result Diagrams: 07/05/17 22:10 07/05/17 22:10 Labs: Laboratory Results - last 24 hr 07/05/17 07/05/17 07/05/17 21:58 22:10 22:10 WBC 14.8 H D RBC 3.35 L Hgb 10.7 L D Hct 33.1 L MCV 98.8 MCH 31.9 MCHC 32.3 RDW 15.7 H Plt Count 275 MPV 10.6 Gran % 71.2 H Lymph % (Auto) 16.1 L [place] % (Auto) 12.0 H Eos % (Auto) 0.5 L Baso % (Auto) 0.2 Gran # 10.55 H Lymph # 2.4 [place] # 1.8 H Eos # 0.1 Baso # 0.03 pO2 VBG pH VBG pCO2 VBG HCO3 VBG Total CO2 VBG O2 Sat (Calc) VBG Base Excess VBG Potassium Sodium 138 Chloride 98 Glucose Lactate FiO2 Potassium 4.3 Carbon Dioxide 31 Anion Gap 14 BUN 16 Creatinine 4.3 H Est GFR ( Amer) 17 Est GFR (Non-Af Amer) 14 POC Glucose (mg/dL) 56 L Random Glucose 114 H Calcium 9.3 Total Bilirubin 0.7 AST 96 H D ALT 45 Alkaline Phosphatase 100 Lactate Dehydrogenase 622 Total Creatine Kinase 45 Troponin I 0.06 D Total Protein 8.7 H Albumin 3.9 Globulin 4.8 Albumin/Globulin Ratio 0.8 L Lipase 74 Venous Blood Potassium Urine Color Urine Appearance Urine pH Ur Specific [place] Urine Protein Urine Glucose (UA) Urine Ketones Urine Blood Urine Nitrate Urine Bilirubin Urine Urobilinogen Ur Leukocyte Esterase Urine RBC Urine WBC Ur Epithelial Cells Urine Bacteria 07/05/17 07/05/17 07/06/17 22:10 22:54 00:45 WBC RBC Hgb Hct MCV MCH MCHC RDW Plt Count MPV Gran % Lymph % (Auto) [place] % (Auto) Eos % (Auto) Baso % (Auto) Gran # Lymph # [place] # Eos # Baso # pO2 24 L VBG pH 7.39 VBG pCO2 51.0 VBG HCO3 30.9 H VBG Total CO2 32.5 H VBG O2 Sat (Calc) 49.2 VBG Base Excess 4.7 H VBG Potassium 4.4 Sodium 137.0 Chloride 102.0 Glucose 108 Lactate 1.7 FiO2 21.0 Potassium Carbon Dioxide Anion Gap BUN Creatinine Est GFR ( Amer) Est GFR (Non-Af Amer) POC Glucose (mg/dL) 114 H Random Glucose Calcium Total Bilirubin AST ALT Alkaline Phosphatase Lactate Dehydrogenase Total Creatine Kinase Troponin I Total Protein Albumin Globulin Albumin/Globulin Ratio Lipase Venous Blood Potassium 4.4 Urine Color Yellow Urine Appearance Cloudy Urine pH 7.0 Ur Specific [place] 1.020 Urine Protein >=300 H Urine Glucose (UA) Negative Urine Ketones Negative Urine Blood Large H Urine Nitrate Negative Urine Bilirubin Negative Urine Urobilinogen 0.2 Ur Leukocyte Esterase Large H Urine RBC 2 - 5 Urine WBC Tntc Ur Epithelial Cells 0 - 2 Urine Bacteria Small Assessment & Plan - Assessment and Plan (Free Text) Assessment: 71 year old male with past medical history of ESRD on HD (Sunday// Sunday), HIV, Prostate cancer s/p prostatectomy, HTN, Gout presents to the ED for en episode of vomiting. Plan: 1. Nausea/ Vomiting (UTI v Enteretis v HIV medication side effects) -EKG ordered and obtained, pending official read, sinus tachycardic -CBC and CMP ordered and reviewed -NPO -250 NS bolus -Rocephin -Flagyl -ID consult, DR. Sharif, will follow recs -zofran -urine positive for leukocyte esterase -CT abdomen/Pelvis: Moderate left-sided hydroureteronephrosis extending to the left ureterovesicular junction without an obstructing stone visualized. Significant bladder wall thickening with an air-fluid level for which recent intervention is suspected. 2. Leukocytosis -afebrile -ID consulted -continue flagyl and rocephin -urine positive for leukocyte esterase -blood and urine cultures pending -procalcitonin pending 3. HIV-chronic -last CD4 count was on record was 04/30: 420 -continue home medications 4. ESRD with Dialysis on T/R/S -BUN: 16 Cr: 4.3 -will continue to monitor -last HD session was 07/05 -Nephrology consulted, Ricardo, will follow recs 5. HTN-chronic -146/73 -continue home medications -will continue to monitor 6. Gout-chronic -continue allopurinol GI/DVT Prophylaxis -Pantoprazole -Heparin
[2017-07-06] MEDS ORDERED: metroNIDAZOLE IV 500 mg/100 ml 500 MG/100 ML BAG IVPB SCH (06:00)
[2017-07-06 08:19] LABS: BASO # 0.02 K/mm3 (0.0-2.0); BASO % 0.2 % (0.0-3.0); EOS # 0.2 (0.0-0.7); EOS % 1.7 % (1.5-5.0); GRAN # 8.58 (1.4-6.5); GRAN % 65.1 % (50.0-68.0); HEMATOCRIT 30.8 % (42.0-52.0); LYMPH # 2.9 (1.2-3.4); MEAN CELL VOLUME 98.7 fl (80.0-105.0); MEAN CORPUSCULAR HEMOGLOBIN 31.4 pg (25.0-35.0); MEAN CORPUSCULAR HGB CONC 31.8 g/dl (31.0-37.0); MEAN PLATELET VOLUME 10.6 fl (7.0-11.0); MONO # 1.5 (0.1-0.6); RED CELL DISTRIBUTION WIDTH 15.7 % (11.5-14.5); WHITE BLOOD COUNT 13.2 10^3/ul (4.5-11.0)
[2017-07-06 08:28] LABS: ALB/GLOB RATIO 0.8 (1.1-1.8); BILIRUBIN,TOTAL 0.6 mg/dL (0.2-1.3); CALCIUM 8.4 mg/dL (8.4-10.5); POTASSIUM 4.5 mmol/L (3.6-5.0); TOTAL PROTEIN 7.5 g/dL (5.8-8.3)
--- NOTE | 2017-07-06 08:58 | RAD ---
HISTORY: Abdominal pain. COMPARISON: 05/06/2017. Single-view chest. July 05, 2017. CT abdomen and pelvis. FINDINGS: LUNGS: No active pulmonary disease. PLEURA: No significant pleural effusion identified, no pneumothorax apparent. CARDIOVASCULAR: No radiographic findings to suggest acute or significant cardiovascular disease. Venous access dialysis catheter in satisfactory position. OSSEOUS STRUCTURES: No significant abnormalities. VISUALIZED UPPER ABDOMEN: Normal. OTHER FINDINGS: None. IMPRESSION: No active disease. No significant interval change compared to the prior examination(s).
[2017-07-06] MEDS: Meropenem 500 MG in Sodium Chloride 0.9% 50 ML IVPB SCH ×2 (09:49→21:38)
[2017-07-06] MEDS ORDERED: cefTRIAXone 1 gm 1 GM/100 ML BAG IVPB SCH (10:00)
--- NOTE | 2017-07-06 12:42 | CP.PCM.CON ---
History of Present Illness - History of Present Illness History of Present Illness: 71 year old male with PMH of HTN, prostate CA, HIV ([facility], last CD4 count on our records 03/2016 is 349 with VL < 1.3 log), history of osteomyelitis of left first toe S/P amputation (2015), gout, history of left foot ulcers, history of pyelonephritis with E. coli bacteremia, was brought in to [facility] complaining of right sided abdominal pain and an episode of vomiting yesterday. He has no fever or chills but now has low grade fever during this admission, no diarrhea, no sore throat, no cough or colds, no muscle aches, no dysphagia, no blurring of vision, no headache or dizziness. CT scan of the abdomen and pelvis is showing right sided nephrolithiasis. Urinalysis is also showing pyuria. Infectious diseases consult is requested to further evaluate and manage. Review of Systems - Review of Systems All systems: reviewed and no additional remarkable complaints except (as per HPI ) Past Patient History - Infectious Disease Hx of Infectious Diseases: None - Tetanus Immunizations Tetanus Immunization: Up to Date - Past Medical History & Family History Past Medical History?: Yes - Past Social History Smoking Status: Never Smoked - CARDIAC Hx Hypertension: Yes Hx Pacemaker: No - PULMONARY Hx Respiratory Disorders: No - NEUROLOGICAL Hx Neurological Disorder: No - HEENT Hx HEENT Problems: No - RENAL Hx Chronic Kidney Disease: No - ENDOCRINE/METABOLIC Hx Diabetes Mellitus Type 1: No Hx Diabetes Mellitus Type 2: No - HEMATOLOGICAL/ONCOLOGICAL Hx Blood Transfusions: No - INTEGUMENTARY Hx Dermatological Problems: Yes (CELLULITIS OF L ANKLE 03-25-16.AMPUTATED 1ST TOE LEFT FOOT.,I/D RT HAND ABCES) Other/Comment: Ulcer of second toe BL - MUSCULOSKELETAL/RHEUMATOLOGICAL Hx Musculoskeletal Disorders: Yes - GASTROINTESTINAL Hx Gastrointestinal Disorders: No - GENITOURINARY/GYNECOLOGICAL Hx Genitourinary Disorders: Yes Hx Prostate Cancer: Yes - PSYCHIATRIC Hx Psychophysiologic Disorder: No Hx Substance Use: No - SURGICAL HISTORY Hx Amputation: Yes (Left first toe) Other/Comment: prostatectomy, incision and drainage of right hand abscess - ANESTHESIA Hx Anesthesia Reactions: No Hx Malignant Hyperthermia: No Meds Allergies/Adverse Reactions: Allergies Allergy/AdvReac Type Severity Reaction Status Date / Time No Known Allergies Allergy Verified 04/29/17 17:01 - Medications Medications: Current Medications Abacavir Sulfate (Ziagen) 300 mg PO BID [facility] Acetaminophen (Tylenol 325mg Tab) 650 mg PO Q4H PRN PRN Reason: Fever >100.4 F Last Admin: 07/06/17 03:12 Dose: 650 mg Albuterol/Ipratropium (Duoneb 3 Mg/0.5 Mg (3 Ml) Ud) 3 ml IH Q2H PRN PRN Reason: Shortness of Breath Allopurinol (Zyloprim) 300 mg PO DAILY [facility] Amlodipine Besylate (Norvasc) 10 mg PO DAILY [facility] Ergocalciferol (Drisdol 50,000 Intl Units Cap) 1 cap PO Q7D [facility] Ferrous Sulfate (Feosol) 324 mg PO BID [facility] Heparin Sodium (Porcine) (Heparin) 5,000 units SC Q12 DWAIN PRN Reason: Protocol Ceftriaxone Sodium (Rocephin 1 Gram Ivpb) 1 gm in 100 mls @ 100 mls/hr IVPB DAILY [facility] PRN Reason: Protocol Metronidazole (Flagyl) 500 mg in 100 mls @ 100 mls/hr IVPB Q8 DWAIN PRN Reason: Protocol Last Admin: 07/06/17 06:22 Dose: 100 mls/hr Indomethacin (Indocin) 25 mg PO TID [facility] Lamivudine (Epivir) 50 mg PO DAILY [facility] Meclizine HCl (Antivert) 25 mg PO Q8H PRN PRN Reason: Dizziness Ondansetron HCl (Zofran Inj) 4 mg IVP DAILY [facility] Pantoprazole Sodium (Protonix Inj) 40 mg IVP 0600 [facility] Last Admin: 07/06/17 06:22 Dose: 40 mg Sevelamer HCl (Renagel) 1,600 mg PO [facility] Vitamin B Complex/Vit C/Folic Acid (Nephro-Christel) 1 tab PO DAILY [facility] Physical Exam - Constitutional Appears: Non-toxic, No Acute Distress - Head Exam Head Exam: NORMAL INSPECTION - ENT Exam ENT Exam: Mucous Membranes Moist - Neck Exam Neck exam: Negative for: Lymphadenopathy, Meningismus - Respiratory Exam Respiratory Exam: Decreased Breath Sounds - Cardiovascular Exam Cardiovascular Exam: +S1, +S2 - GI/Abdominal Exam GI & Abdominal Exam: Soft, Tenderness (right side of abdomen). absent: Distended, Firm, Guarding, Rebound, Rigid Results - Vital Signs Recent Vital Signs: Last Vital Signs Temp 97.9 F 11/17/17 02:55 Pulse 107 H 07/06/17 04:44 Resp 20 07/06/17 05:50 BP 132/71 07/06/17 04:44 Pulse Ox 96 07/06/17 04:44 - Labs Result Diagrams: 07/06/17 08:00 07/06/17 08:00 Assessment & Plan - Assessment and Plan (Free Text) Plan: Assessment systemic inflammatory response syndrome, consider sepsis due to UTI associated with right sided nephrolithiasis history of severe sepsis with acute on chronic renal failure probably due to pyelonephritis with E. coli bacteremia history of C. diff. associated diarrhea Charcot foot, left history of left 2nd toe dry gangrene Chronic renal failure on hemodialysis HTN prostate CA HIV (patient goes to the [facility] with last CD4 count [place] [facility] and virus load < 1.3 log) history of osteomyelitis of left first toe S/P amputation (2015) gout history of left foot ulcers Plan start patient on Merrem pending blood and urine cx; reviewed CT A/P - suggest Urology evaluation continue antiretroviral therapy (lamivudine, abacavir on formulary but dolutegravir should be taken by patient from his home supply) will monitor clinically
[2017-07-06] MEDS: Ergocalciferol 50,000 Intl Units Cap PO SCH (13:21)
[2017-07-06] MEDS: Multivitamin Vitamin B Complex (Nephro-Vite) Tab PO SCH (13:21)
[2017-07-06] MEDS: DOLUTEGRAVIR 50 MG PO SCH (13:22)
[2017-07-06] MEDS ORDERED: Darbepoetin Alfa 25 mcg/ml Inj IVP STA (15:16)
--- NOTE | 2017-07-06 15:30 | CP.PCM.CON ---
History of Present Illness - History of Present Illness History of Present Illness: Initial Nephrology Consultation: Assessment: stable Left hydroureteronephrosis with ? pyelonephritis bladder wall thickening, hx of prostate CA Hypertensive Chronic Kidney Disease (I12.9) ESRD on HD via permacath (TTS) Anemia (D64.9), HTN (I12.9) HIV on HAART, PVD Plan plan for HD tomorrow. no acute need today. nephrovite 1 tab/day aransep 125 mcg weekly for anemia. not on VDRA as PTH at goal. pt on weekly vit D check phos level. continue with binders Hypertension control with meds as ordered. Patient not on ACEI/ARB as BP controlled. he takes lopressor at home. not on norvasc anymore. d/c NSAIDs consider evaluation ID following wound care in feets Dose meds/antibiotics for ESRD status. Avoid fleets enema/magnesium based laxatives. Avoid nephrotoxins/NSAIDs/ iodinated contrast (unless needed emergently) Further work up/management as per primary team Thanks for allowing me to participate in care of your patient. Will follow patient with you. Please call if any Qs. Dr Yandel Arechiga Office: [phone] Chief Complaint; pain abdomen and fever reason for consult: ESRD HPI: Pt is a 71 y/o M with hx of HIV on HAART, PVD s/p angioplasty, hypertension (10-15 years), ESRD on HD (via permacath) TTS @ [facility], left foot toe amputations, prostate CA presented with complaints of pain in lower abdomen and vomitting 1 episode yesterday. pt was febrile in HD yesterday when blood cx x 2 done and he was given 1 gram vanco and 120 mg genta with HD. pt was advised to go to hospital which he declined. Later, he came to [facility] with mentioned complaints. he feels better now Denies chest pain, palpitation, leg swelling. no shortness of breath Denies blood or bubbles in urine. making less than usual urine Denies OTC/herbal meds or NSAIDs No recent iodinated contrast exposure. No obvious episodes of low BP. ROS: Constitutional Symptoms: had fever/chills yesterday, now better had lost some weight since on HD Eyes: denies change in vision, denies watery eyes, denies double vision Ears/Nose/Mouth/Throat: Denies Abnormal Taste. No Bad breath no Bad Taste. Cardiovascular: No chest pain. There is c/o shortness of breath. No palpitations. Pulmonary: no shortness of breath no cough. Gastrointestinal: c/o lower abdominal pain now better No nausea. had vomiting. Denies change in bowel habits. Genitourinary: reports decreased UOP Neurological: Denies headaches. No dizziness. Denies loss of balance. Denies weakness, denies tingling/numbness Dermatological: No Rash or Bruising. 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 No depression. Denies hallucinations. Rheumatological: No joint pain. Denies Joint swelling. Endocrine: Denies tiredness/Fatigue denies Heat/Cold Intolerance. All other negative Physical Examination: General Appearance: Comfortable, in no acute respiratory distress, co-operative . Vitals reviewed and noted as below Head; Atraumatic, normocephalic ENT: no ulcers no thrush. Tongue is midline. Oropharynx: no rash or ulcers. EYES: Pupils are equal, round and reactive to light accommodation. Eye muscles and extraocular movement intact. Sclera is anicteric. Neck; supple no lymphadenopathy, no thyromegaly or bruit Lungs: Normal respiratory rate/effort. Breath sounds bilateral clear Heart: Normal rate. s1s2 normal. No rub or gallop. Extremities: no edema. No varicose veins Neurological: Patient is alert, awake and oriented to person, place and time. No focal deficit. Strength bilateral appropriate and equal Skin: Warm and dry. Normal turgor. No rash. Palpitation: Normal elasticity for age Abdomen: Abdomen is soft. Bowel sounds +. There is mild lower abdominal tenderness, no guarding/rigidity no organomegaly Psych: normal insight and normal affect/mood MSK: no joint tenderness or swelling. Digits and nails normal, has rt foot deformity noted with ulcer on medial malleolus. left foot toe amputations in past : kidney or bladder not palpable. Access: permacath Labs/imaging/EKG reviewed. Past medical history, past surgical history, family history, social history, allergy reviewed and noted as below Family hx: sister was on dialysis. Rest non-contributory Past Patient History - Infectious Disease Hx of Infectious Diseases: None - Tetanus Immunizations Tetanus Immunization: Up to Date - Past Medical History & Family History Past Medical History?: Yes - Past Social History Smoking Status: Never Smoked - CARDIAC Hx Hypertension: Yes Hx Pacemaker: No - PULMONARY Hx Respiratory Disorders: No - NEUROLOGICAL Hx Neurological Disorder: No - HEENT Hx HEENT Problems: No - RENAL Hx Chronic Kidney Disease: No - ENDOCRINE/METABOLIC Hx Diabetes Mellitus Type 1: No Hx Diabetes Mellitus Type 2: No - HEMATOLOGICAL/ONCOLOGICAL Hx Blood Transfusions: No - INTEGUMENTARY Hx Dermatological Problems: Yes (CELLULITIS OF L ANKLE 8-6-16.AMPUTATED 1ST TOE LEFT FOOT.,I/D RT HAND ABCES) Other/Comment: Ulcer of second toe BL - MUSCULOSKELETAL/RHEUMATOLOGICAL Hx Musculoskeletal Disorders: Yes - GASTROINTESTINAL Hx Gastrointestinal Disorders: No - GENITOURINARY/GYNECOLOGICAL Hx Genitourinary Disorders: Yes Hx Prostate Cancer: Yes - PSYCHIATRIC Hx Psychophysiologic Disorder: No Hx Substance Use: No - SURGICAL HISTORY Hx Amputation: Yes (Left first toe) Other/Comment: prostatectomy, incision and drainage of right hand abscess - ANESTHESIA Hx Anesthesia Reactions: No Hx Malignant Hyperthermia: No Meds Allergies/Adverse Reactions: Allergies Allergy/AdvReac Type Severity Reaction Status Date / Time No Known Allergies Allergy Verified 04/29/17 17:01 - Medications Medications: Current Medications Abacavir Sulfate (Ziagen) 300 mg PO BID [facility] Last Admin: 07/06/17 13:26 Dose: 300 mg Acetaminophen (Tylenol 325mg Tab) 650 mg PO Q4H PRN PRN Reason: Fever >100.4 F Last Admin: 07/06/17 06:42 Dose: 650 mg Albuterol/Ipratropium (Duoneb 3 Mg/0.5 Mg (3 Ml) Ud) 3 ml IH Q2H PRN PRN Reason: Shortness of Breath Allopurinol (Zyloprim) 300 mg PO DAILY [facility] Last Admin: 07/06/17 13:21 Dose: 300 mg Darbepoetin Mario (Aranesp) 100 mcg IVP ONCE ONE Stop: 07/10/17 15:12 Ergocalciferol (Drisdol 50,000 Intl Units Cap) 1 cap PO Q7D [facility] Last Admin: 07/06/17 13:21 Dose: 1 cap Ferrous Sulfate (Feosol) 324 mg PO BID [facility] Last Admin: 07/06/17 10:00 Dose: Not Given Heparin Sodium (Porcine) (Heparin) 5,000 units SC Q12 DWAIN PRN Reason: Protocol Last Admin: 07/06/17 13:22 Dose: Not Given Home Med (Home Med) 1 unit PO DAILY [facility] Last Admin: 07/06/17 13:22 Dose: Not Given Meropenem 500 mg/ Sodium (Chloride) 50 mls @ 100 mls/hr IVPB Q12 DWAIN PRN Reason: Protocol Stop: 07/13/17 10:01 Last Admin: 07/06/17 09:49 Dose: 100 mls/hr Lamivudine (Epivir) 50 mg PO DAILY [facility] Meclizine HCl (Antivert) 25 mg PO Q8H PRN PRN Reason: Dizziness Metoprolol Tartrate (Lopressor) 25 mg PO BRKDIN [facility] Ondansetron HCl (Zofran Inj) 4 mg IVP DAILY [facility] Last Admin: 07/06/17 12:55 Dose: Not Given Pantoprazole Sodium (Protonix Inj) 40 mg IVP 0600 [facility] Last Admin: 07/06/17 06:22 Dose: 40 mg Sevelamer HCl (Renagel) 1,600 mg PO WM [facility] Last Admin: 07/06/17 13:21 Dose: 1,600 mg Vitamin B Complex/Vit C/Folic Acid (Nephro-Christel) 1 tab PO DAILY [facility] Last Admin: 07/06/17 13:21 Dose: 1 tab Results - Vital Signs Recent Vital Signs: Last Vital Signs Temp 100.4 F H 07/06/17 07:30 Pulse 103 H 07/06/17 07:30 Resp 20 07/06/17 07:30 BP 130/82 07/06/17 13:21 Pulse Ox 94 L 07/06/17 07:30 - Labs Result Diagrams: 07/06/17 08:00 07/06/17 08:00 Labs: Laboratory Results - last 24 hr 07/06/17 07/06/17 08:00 08:00 WBC 13.2 H RBC 3.12 L Hgb 9.8 L Hct 30.8 L MCV 98.7 MCH 31.4 MCHC 31.8 RDW 15.7 H Plt Count 252 MPV 10.6 Gran % 65.1 Lymph % (Auto) 22.0 [place] % (Auto) 11.0 H Eos % (Auto) 1.7 Baso % (Auto) 0.2 Gran # 8.58 H Lymph # 2.9 [place] # 1.5 H Eos # 0.2 Baso # 0.02 Sodium 137 Potassium 4.5 Chloride 101 Carbon Dioxide 28 Anion Gap 14 BUN 21 Creatinine 5.0 H Est GFR ( Amer) 14 Est GFR (Non-Af Amer) 11 Random Glucose 92 Calcium 8.4 Total Bilirubin 0.6 AST 77 H ALT 49 Alkaline Phosphatase 86 Total Protein 7.5 Albumin 3.3 Globulin 4.2 Albumin/Globulin Ratio 0.8 L
[2017-07-06] MEDS: LamiVUDine 10 mg/ml Syringe PO SCH (17:19)
--- NOTE | 2017-07-06 23:23 | CARD ---
APPROVED REPORT EKG Measurement Heart [id number] <Conclusion> Sinus tachycardia with occasional premature ventricular complexes Possible Left atrial enlargement Borderline ECG
[2017-07-07 07:32] LABS: BASO # 0.02 K/mm3 (0.0-2.0); BASO % 0.2 % (0.0-3.0); EOS # 0.6 (0.0-0.7); GRAN # 8.11 (1.4-6.5); GRAN % 63.9 % (50.0-68.0); HEMATOCRIT 31.7 % (42.0-52.0); LYMPH # 2.8 (1.2-3.4); LYMPH % 21.9 % (22.0-35.0); MEAN CELL VOLUME 99.1 fl (80.0-105.0); MEAN CORPUSCULAR HEMOGLOBIN 31.6 pg (25.0-35.0); MEAN CORPUSCULAR HGB CONC 31.9 g/dl (31.0-37.0); MEAN PLATELET VOLUME 10.4 fl (7.0-11.0); MONO # 1.1 (0.1-0.6); RED CELL DISTRIBUTION WIDTH 15.5 % (11.5-14.5); WHITE BLOOD COUNT 12.7 10^3/ul (4.5-11.0)
[2017-07-07 07:56] LABS: ALB/GLOB RATIO 0.8 (1.1-1.8); BILIRUBIN,TOTAL 0.5 mg/dL (0.2-1.3); CALCIUM 8.5 mg/dL (8.4-10.5); POTASSIUM 4.6 mmol/L (3.6-5.0); TOTAL PROTEIN 7.3 g/dL (5.8-8.3)
--- NOTE | 2017-07-07 09:35 | CP.PCM.CON ---
Addendum entered and electronically signed by Paty Sawyer DPM 07/07/17 09:53 : Arterial duplex ordered Original Note: <Paty Sawyer - Last Filed: 07/07/17 09:30> History of Present Illness - History of Present Illness History of Present Illness: 71 y/o male patient seen and evaluated at bedside with attending Dr. Dunn concerning open ulcerations to bilateral lower extremities. Patient presents with open wound to right medial malleolus, lateral heel, LEFT lateral heel. Patient states that he first noticed the open wound to right foot 2 months ago from today. Patient states that he was being treated for the ulcers by Dr. Paez for the past few weeks. Patient was resting comfortably in bed and in NAD. Patient denies any symptoms of N/V/F/SOB/Chest pain. Past Patient History - Infectious Disease Hx of Infectious Diseases: None - Tetanus Immunizations Tetanus Immunization: Up to Date - Past Medical History & Family History Past Medical History?: Yes - Past Social History Smoking Status: Never Smoked - CARDIAC Hx Hypertension: Yes Hx Pacemaker: No - PULMONARY Hx Respiratory Disorders: No - NEUROLOGICAL Hx Neurological Disorder: No - HEENT Hx HEENT Problems: No - RENAL Hx Chronic Kidney Disease: No - ENDOCRINE/METABOLIC Hx Diabetes Mellitus Type 1: No Hx Diabetes Mellitus Type 2: No - HEMATOLOGICAL/ONCOLOGICAL Hx Blood Transfusions: No - INTEGUMENTARY Hx Dermatological Problems: Yes (CELLULITIS OF L ANKLE 8-16.AMPUTATED 1ST TOE LEFT FOOT.,I/D RT HAND ABCES) Other/Comment: Ulcer of second toe BL - MUSCULOSKELETAL/RHEUMATOLOGICAL Hx Musculoskeletal Disorders: Yes - GASTROINTESTINAL Hx Gastrointestinal Disorders: No - GENITOURINARY/GYNECOLOGICAL Hx Genitourinary Disorders: Yes Hx Prostate Cancer: Yes - PSYCHIATRIC Hx Psychophysiologic Disorder: No Hx Substance Use: No - SURGICAL HISTORY Hx Amputation: Yes (Left first toe) Other/Comment: prostatectomy, incision and drainage of right hand abscess - ANESTHESIA Hx Anesthesia Reactions: No Hx Malignant Hyperthermia: No Meds Allergies/Adverse Reactions: Allergies Allergy/AdvReac Type Severity Reaction Status Date / Time No Known Allergies Allergy Verified 04/29/17 17:01 - Medications Medications: Current Medications Abacavir Sulfate (Ziagen) 300 mg PO BID [facility] Last Admin: 07/06/17 17:19 Dose: 300 mg Acetaminophen (Tylenol 325mg Tab) 650 mg PO Q4H PRN PRN Reason: Fever >100.4 F Last Admin: 07/07/17 05:43 Dose: 650 mg Albuterol/Ipratropium (Duoneb 3 Mg/0.5 Mg (3 Ml) Ud) 3 ml IH Q2H PRN PRN Reason: Shortness of Breath Allopurinol (Zyloprim) 300 mg PO DAILY [facility] Last Admin: 07/06/17 13:21 Dose: 300 mg Darbepoetin Mario (Aranesp) 100 mcg IVP ONCE ONE Stop: 07/10/17 15:12 Darbepoetin Mario (Aranesp) 25 mcg IVP ONCE ONE Stop: 07/10/17 15:31 Ergocalciferol (Drisdol 50,000 Intl Units Cap) 1 cap PO Q7D [facility] Last Admin: 07/06/17 13:21 Dose: 1 cap Ferrous Sulfate (Feosol) 324 mg PO BID [facility] Last Admin: 07/06/17 17:19 Dose: 324 mg Heparin Sodium (Porcine) (Heparin) 5,000 units SC Q12 [facility] PRN Reason: Protocol Last Admin: 07/06/17 21:38 Dose: 5,000 units Home Med (Home Med) 1 unit PO DAILY [facility] Last Admin: 07/06/17 13:22 Dose: Not Given Meropenem 500 mg/ Sodium (Chloride) 50 mls @ 100 mls/hr IVPB Q12 [facility] PRN Reason: Protocol Stop: 07/13/17 10:01 Last Admin: 07/06/17 21:38 Dose: 100 mls/hr Lamivudine (Epivir) 50 mg PO DAILY [facility] Last Admin: 07/06/17 17:19 Dose: 50 mg Meclizine HCl (Antivert) 25 mg PO Q8H PRN PRN Reason: Dizziness Metoprolol Tartrate (Lopressor) 25 mg PO BRKDIN [facility] Last Admin: 07/06/17 17:19 Dose: 25 mg Ondansetron HCl (Zofran Inj) 4 mg IVP DAILY [facility] Last Admin: 07/06/17 12:55 Dose: Not Given Pantoprazole Sodium (Protonix Inj) 40 mg IVP 0600 [facility] Last Admin: 07/07/17 05:38 Dose: 40 mg Sevelamer HCl (Renagel) 1,600 mg PO WM [facility] Last Admin: 07/06/17 17:19 Dose: 1,600 mg Vitamin B Complex/Vit C/Folic Acid (Nephro-Christel) 1 tab PO DAILY [facility] Last Admin: 07/06/17 13:21 Dose: 1 tab Physical Exam - Constitutional Appears: Well, Non-toxic, No Acute Distress - Head Exam Head Exam: ATRAUMATIC - Extremities Exam Additional comments: Bilateral lower extremity examination: DERM: Right: Open ulceration noted to Medial aspect of right Medial malleolus measuring 3cm x 2cm x 0.2cm with fibrotic base. No malodor noted. No purulent drainage noted. No tracking noted. No ptb. Mild erythema to margins <0.5cm. No sign of acute infection is noted Another open ulceration noted to lateral aspect of right heel measuring 2cm x 0.5cm x 0.2cm with fibrotic base, No malodor noted. No purulent drainage noted. No tracking noted. No ptb. Mild erythema to margins <0.5cm. No sign of acute infection is noted LEFT: An superficial ulceration noted to lateral aspect of LEFT heel measuring 2cm x 2cm x 0.1cm with granular base, No malodor noted. No purulent drainage noted. No tracking noted. No ptb. Mild erythema to margins <0.5cm. No sign of acute infection is noted VASC: B/L non-palpable pedal pulses; foot is cool distally at the level of the distal metatarsals and toes; delayed capillary fill time is noted; dry gangrene is noted at the Left 2nd digit NEURO: protective sensation is grossly diminished ORTHO: RIGHT medial aspect of the ankle and medial aspect of the rearfoot and midfoot are tender upon palpation; gross midfoot collapse is appreciated secondary to Charcot. LEFT 1st and 2nd digit amputation noted. - Neurological Exam Neurological exam: Alert, Oriented x3 - Psychiatric Exam Psychiatric exam: Normal Affect, Normal Mood - Skin Skin Exam: Normal Color, Warm Results - Vital Signs Recent Vital Signs: Last Vital Signs Temp 98 F 07/07/17 07:56 Pulse 76 07/07/17 07:56 Resp 20 07/07/17 07:56 BP 117/58 L 07/07/17 07:56 Pulse Ox 96 07/07/17 07:56 - Labs Result Diagrams: 07/07/17 07:20 07/07/17 07:20 Labs: Laboratory Results - last 24 hr 11/18/17 11/18/17 07:20 07:20 WBC 12.7 H RBC 3.20 L Hgb 10.1 L Hct 31.7 L MCV 99.1 MCH 31.6 MCHC 31.9 RDW 15.5 H Plt Count 259 MPV 10.4 Gran % 63.9 Lymph % (Auto) 21.9 L [place] % (Auto) 9.0 H Eos % (Auto) 5.0 Baso % (Auto) 0.2 Gran # 8.11 H Lymph # 2.8 [place] # 1.1 H Eos # 0.6 Baso # 0.02 Sodium 138 Potassium 4.6 Chloride 102 Carbon Dioxide 28 Anion Gap 14 BUN 35 H Creatinine 6.8 H Est GFR ( Amer) 10 Est GFR (Non-Af Amer) 8 Random Glucose 82 Calcium 8.5 Phosphorus 5.0 H Total Bilirubin 0.5 AST 52 ALT 43 Alkaline Phosphatase 91 Total Protein 7.3 Albumin 3.3 Globulin 4.0 Albumin/Globulin Ratio 0.8 L Assessment & Plan - Assessment and Plan (Free Text) Assessment: 71 yo male patient presenting with non-healing open ulcerations to bilateral feet Plan: Patient seen and evaluated at bedside by podiatry resident and Dr. Dunn Labs and vitals were reviewed All the questions and concerns were addressed Right foot dressing was removed and cleansed with normal sterile saline Right foot dressed with Santyl and DSD Left foot dressing was removed and cleansed with normal sterile saline Left foot was dressed with Bactroban Optifoam Right foot medial ankle wound culture taken Xray bilateral ordered Bactroban ordered Santyl ordered Multipodus boot ordered for bilateral lower extremities; to be applied at all times Podiatry will continue to follow while remains in house. <Jerrod Dunn - Last Filed: 07/11/17 11:13> Meds - Medications Medications: Current Medications Abacavir Sulfate (Ziagen) 300 mg PO BID [facility] Last Admin: 07/10/17 17:11 Dose: 300 mg Acetaminophen (Tylenol 325mg Tab) 650 mg PO Q4H PRN PRN Reason: Fever >100.4 F Last Admin: 07/08/17 20:09 Dose: 650 mg Albuterol/Ipratropium (Duoneb 3 Mg/0.5 Mg (3 Ml) Ud) 3 ml IH Q2H PRN PRN Reason: Shortness of Breath Allopurinol (Zyloprim) 300 mg PO DAILY [facility] Last Admin: 07/10/17 12:19 Dose: 300 mg Collagenase (Santyl) 0 gm TOP DAILY [facility] Stop: 07/13/17 23:00 Last Admin: 07/10/17 14:08 Dose: 1 unit Ergocalciferol (Drisdol 50,000 Intl Units Cap) 1 cap PO Q7D [facility] Last Admin: 07/06/17 13:21 Dose: 1 cap Ferrous Sulfate (Feosol) 324 mg PO BID [facility] Last Admin: 07/10/17 17:10 Dose: 324 mg Heparin Sodium (Porcine) (Heparin) 5,000 units SC Q12 [facility] PRN Reason: Protocol Last Admin: 07/10/17 23:37 Dose: 5,000 units Home Med (Home Med) 1 unit PO DAILY [facility] Last Admin: 07/10/17 11:22 Dose: Not Given Lamivudine (Epivir) 50 mg PO DAILY [facility] Last Admin: 07/10/17 14:08 Dose: 50 mg Meclizine HCl (Antivert) 25 mg PO Q8H PRN PRN Reason: Dizziness Metoprolol Tartrate (Lopressor) 25 mg PO BRKDIN [facility] Last Admin: 07/11/17 08:42 Dose: 25 mg Ondansetron HCl (Zofran Inj) 4 mg IVP DAILY [facility] Last Admin: 07/10/17 12:36 Dose: Not Given Pantoprazole Sodium (Protonix Ec Tab) 40 mg PO 0600 [facility] Last Admin: 07/11/17 05:57 Dose: 40 mg Sevelamer HCl (Renagel) 800 mg PO WM [facility] Last Admin: 07/11/17 08:42 Dose: 800 mg Tramadol HCl (Ultram) 50 mg PO Q8H PRN PRN Reason: Pain, moderate (4-7) Last Admin: 07/10/17 00:04 Dose: 50 mg Vitamin B Complex/Vit C/Folic Acid (Nephro-Christel) 1 tab PO DAILY [facility] Last Admin: 07/10/17 12:27 Dose: 1 tab Results - Vital Signs Recent Vital Signs: Last Vital Signs Temp 99.1 F 07/11/17 07:30 Pulse 80 07/11/17 08:42 Resp 20 07/11/17 07:30 BP 155/45 H 07/11/17 08:42 Pulse Ox 98 07/11/17 07:30 - Labs Result Diagrams: 07/11/17 10:18 07/11/17 10:18 Labs: Laboratory Results - last 24 hr 07/11/17 07/11/17 10:18 10:18 WBC 8.0 RBC 3.08 L Hgb 9.5 L Hct 30.3 L MCV 98.4 MCH 30.8 MCHC 31.4 RDW 15.4 H Plt Count 247 MPV 10.4 Gran % 47.8 L Lymph % (Auto) 33.5 [place] % (Auto) 12.7 H Eos % (Auto) 5.9 H Baso % (Auto) 0.1 Gran # 3.81 Lymph # 2.7 [place] # 1.0 H Eos # 0.5 Baso # 0.01 Sodium 135 Potassium 3.8 Chloride 99 Carbon Dioxide 29 Anion Gap 11 BUN 32 H Creatinine 5.6 H Est GFR ( Amer) 12 Est GFR (Non-Af Amer) 10 Random Glucose 96 Calcium 8.3 L Total Bilirubin 0.4 AST 33 ALT 30 Alkaline Phosphatase 68 Total Protein 6.5 Albumin 2.8 L Globulin 3.7 Albumin/Globulin Ratio 0.8 L Attending/Attestation - Attestation I have personally seen and examined this patient.: Yes I have fully participated in the care of the patient.: Yes I have reviewed all pertinent clinical information: Yes
--- NOTE | 2017-07-07 13:31 | CP.PCM.PN ---
<Corin Perez - Last Filed: 07/07/17 13:41> Subjective - Date & Time of Evaluation Date of Evaluation: 07/07/17 Time of Evaluation: 07:55 - Subjective Subjective: Medicine progress note for Dr Adams/[facility] service. Patient with no acute events overnight. Complaining of right heel pain due to pressure ulcers. Patient reported the abdominal pain has improved. Denies cp, sob, n/v/d, fever or chills. Objective - Vital Signs/Intake and Output Vital Signs (last 24 hours): Temp Pulse Resp BP Pulse Ox 98 F 76 20 117/58 L 96 07/07/17 07:56 07/07/17 07:56 07/07/17 07:56 07/07/17 07:56 07/07/17 07:56 Intake and Output: 07/07/17 07/07/17 06:59 18:59 Intake Total 240 Output Total 115 Balance 125 - Medications Medications: Current Medications Abacavir Sulfate (Ziagen) 300 mg PO BID [facility] Last Admin: 07/06/17 17:19 Dose: 300 mg Acetaminophen (Tylenol 325mg Tab) 650 mg PO Q4H PRN PRN Reason: Fever >100.4 F Last Admin: 07/07/17 05:43 Dose: 650 mg Albuterol/Ipratropium (Duoneb 3 Mg/0.5 Mg (3 Ml) Ud) 3 ml IH Q2H PRN PRN Reason: Shortness of Breath Allopurinol (Zyloprim) 300 mg PO DAILY [facility] Last Admin: 07/06/17 13:21 Dose: 300 mg Collagenase (Santyl) 0 gm TOP DAILY [facility] Stop: 07/13/17 23:00 Darbepoetin Mario (Aranesp) 100 mcg IVP ONCE ONE Stop: 07/10/17 15:12 Darbepoetin Mario (Aranesp) 25 mcg IVP ONCE ONE Stop: 07/10/17 15:31 Ergocalciferol (Drisdol 50,000 Intl Units Cap) 1 cap PO Q7D [facility] Last Admin: 07/06/17 13:21 Dose: 1 cap Ferrous Sulfate (Feosol) 324 mg PO BID [facility] Last Admin: 07/07/17 12:14 Dose: Not Given Heparin Sodium (Porcine) (Heparin) 5,000 units SC Q12 [facility] PRN Reason: Protocol Last Admin: 07/07/17 12:15 Dose: Not Given Home Med (Home Med) 1 unit PO DAILY [facility] Last Admin: 07/06/17 13:22 Dose: Not Given Meropenem 500 mg/ Sodium (Chloride) 50 mls @ 100 mls/hr IVPB Q12 [facility] PRN Reason: Protocol Stop: 07/13/17 10:01 Last Admin: 07/06/17 21:38 Dose: 100 mls/hr Lamivudine (Epivir) 50 mg PO DAILY [facility] Last Admin: 07/06/17 17:19 Dose: 50 mg Meclizine HCl (Antivert) 25 mg PO Q8H PRN PRN Reason: Dizziness Metoprolol Tartrate (Lopressor) 25 mg PO BRKDIN [facility] Last Admin: 07/07/17 10:49 Dose: Not Given Ondansetron HCl (Zofran Inj) 4 mg IVP DAILY [facility] Last Admin: 07/07/17 12:19 Dose: Not Given Pantoprazole Sodium (Protonix Inj) 40 mg IVP 0600 [facility] Last Admin: 07/07/17 05:38 Dose: 40 mg Sevelamer HCl (Renagel) 1,600 mg PO WM [facility] Last Admin: 07/07/17 12:15 Dose: Not Given Vitamin B Complex/Vit C/Folic Acid (Nephro-Christel) 1 tab PO DAILY [facility] Last Admin: 07/06/17 13:21 Dose: 1 tab - Labs Labs: 07/07/17 07:20 07/07/17 07:20 - Constitutional Appears: No Acute Distress, Cachectic, Chronically Ill - Head Exam Head Exam: ATRAUMATIC, NORMAL INSPECTION, NORMOCEPHALIC - Eye Exam Eye Exam: Normal appearance. absent: Scleral icterus Pupil Exam: NORMAL ACCOMODATION - ENT Exam ENT Exam: Mucous Membranes Moist - Neck Exam Neck Exam: Normal Inspection - Respiratory Exam Respiratory Exam: Clear to Ausculation Bilateral, NORMAL BREATHING PATTERN. absent: Rales, Rhonchi, Wheezes, Respiratory Distress, Stridor - Cardiovascular Exam Cardiovascular Exam: REGULAR RHYTHM, RRR, +S1, +S2. absent: Bradycardia, Tachycardia, Gallop, JVD, Rubs - GI/Abdominal Exam GI & Abdominal Exam: Soft, Hernia (reducible small umbilical hernia ), Normal Bowel Sounds. absent: Distended, Firm, Guarding, Rigid, Tenderness, Pulsatile Mass - Extremities Exam Extremities Exam: Tenderness. absent: Normal Capillary Refill (unbale to palpate posterior tibial and dorsalis pedis pulses b/l. ), Pedal Edema - Back Exam Back Exam: NORMAL INSPECTION - Neurological Exam Neurological Exam: Alert, Awake, Oriented x3 - Psychiatric Exam Psychiatric exam: Normal Affect, Normal Mood - Skin Skin Exam: Dry Additional comments: facundo heel pressure ulcers, right worst than the left, right side with drainage. unable to palpate posterior tibial and dorsalis pedis pulses facudno. Assessment and Plan - Assessment and Plan (Free Text) Assessment: Patient is a PMH of HTN, prostate CA, HIV (last CD4 count on record 03/2016 is 349), history of osteomyelitis of left first toe S/P amputation (2015), gout, ESRD whom presented with abdominal pain and is currently admitted with sepsis due to Plan: 1) Sepsis with UTI versus wound infection the possible source - CT also revealed Moderate left-sided hydroureteronephrosis extending to the left ureterovesicular junction without an obstructing stone visualized. - Patient is afebrile and leukocytossis is trending down - Blood cultures with so far no growth, urine culture with contamination - ID following, on merrem - Abdominal pain resolved 2) Bladder wall thickening with air fluid level on CT - h/o prostate ca - urology consulted 3) Bilateral heel ulcers, r/o osteomyolitis and PVD. - podiatry consulted - x-ray and artereial duplex studies ordered. 4) HIV- will continue with Ziagen, epivir, Dolutegravir as per ID 5) ESRD- Renal following for HD - Continue with renagel 6) h/o gout- continue with allopurinol. 7) Anemia due to esrd- will continue with iron, aranesp as per renal. 8) h/o COPD- continue with duoneb prn 9) h/o vertigo- continue with meclizine prn 10) CAD- continue with Lopressor. 11) Gi prophylaxis with protonix, dvt prophylaxis with heparin sc. Patient seen, examined and case disucssed with Dr Brownlee. <Parag Brownlee - Last Filed: 07/08/17 09:29> Objective - Vital Signs/Intake and Output Vital Signs (last 24 hours): Temp Pulse Resp BP Pulse Ox 98.8 F 84 20 127/78 97 07/08/17 07:45 07/08/17 08:34 07/08/17 07:45 07/08/17 08:34 07/08/17 07:45 Intake and Output: 07/08/17 07/08/17 06:59 18:59 Intake Total 840 Output Total 0 Balance 840 - Medications Medications: Current Medications Abacavir Sulfate (Ziagen) 300 mg PO BID [facility] Last Admin: 07/07/17 18:10 Dose: 300 mg Acetaminophen (Tylenol 325mg Tab) 650 mg PO Q4H PRN PRN Reason: Fever >100.4 F Last Admin: 07/07/17 05:43 Dose: 650 mg Albuterol/Ipratropium (Duoneb 3 Mg/0.5 Mg (3 Ml) Ud) 3 ml IH Q2H PRN PRN Reason: Shortness of Breath Allopurinol (Zyloprim) 300 mg PO DAILY [facility] Last Admin: 07/07/17 14:36 Dose: 300 mg Collagenase (Santyl) 0 gm TOP DAILY [facility] Stop: 07/13/17 23:00 Last Admin: 07/07/17 14:46 Dose: 250 unit Darbepoetin Mario (Aranesp) 100 mcg IVP ONCE ONE Stop: 07/10/17 15:12 Darbepoetin Mario (Aranesp) 25 mcg IVP ONCE ONE Stop: 07/10/17 15:31 Ergocalciferol (Drisdol 50,000 Intl Units Cap) 1 cap PO Q7D [facility] Last Admin: 07/06/17 13:21 Dose: 1 cap Ferrous Sulfate (Feosol) 324 mg PO BID [facility] Last Admin: 07/07/17 17:32 Dose: 324 mg Heparin Sodium (Porcine) (Heparin) 5,000 units SC Q12 [facility] PRN Reason: Protocol Last Admin: 07/07/17 21:32 Dose: 5,000 units Home Med (Home Med) 1 unit PO DAILY [facility] Last Admin: 07/07/17 17:21 Dose: Not Given Meropenem 500 mg/ Sodium (Chloride) 50 mls @ 100 mls/hr IVPB Q12 [facility] PRN Reason: Protocol Stop: 07/13/17 10:01 Last Admin: 07/07/17 21:31 Dose: 100 mls/hr Lamivudine (Epivir) 50 mg PO DAILY [facility] Last Admin: 07/07/17 14:56 Dose: 50 mg Meclizine HCl (Antivert) 25 mg PO Q8H PRN PRN Reason: Dizziness Metoprolol Tartrate (Lopressor) 25 mg PO BRKDIN [facility] Last Admin: 07/08/17 08:34 Dose: 25 mg Ondansetron HCl (Zofran Inj) 4 mg IVP DAILY [facility] Last Admin: 07/07/17 12:19 Dose: Not Given Pantoprazole Sodium (Protonix Inj) 40 mg IVP 0600 [facility] Last Admin: 07/08/17 05:43 Dose: 40 mg Sevelamer HCl (Renagel) 1,600 mg PO WM [facility] Last Admin: 07/08/17 08:34 Dose: 1,600 mg Tramadol HCl (Ultram) 50 mg PO Q8H PRN PRN Reason: Pain, moderate (4-7) Last Admin: 07/08/17 01:35 Dose: 50 mg Vitamin B Complex/Vit C/Folic Acid (Nephro-Christel) 1 tab PO DAILY [facility] Last Admin: 07/07/17 14:37 Dose: 1 tab - Labs Labs: 07/08/17 05:35 07/08/17 05:35 Assessment and Plan - Assessment and Plan (Free Text) Plan: went over w/ resident at length discussed orders labs meds plans and course cont w/ tmt and care
[2017-07-07] MEDS: Multivitamin Vitamin B Complex (Nephro-Vite) Tab PO SCH (14:37)
[2017-07-07] MEDS: Collagenase 250 Units/gm Ointment(30 gm) TOP SCH (14:46)
[2017-07-07] MEDS: Meropenem 500 MG in Sodium Chloride 0.9% 50 ML IVPB SCH ×2 (14:48→21:31)
--- NOTE | 2017-07-07 14:54 | CP.PCM.PN ---
Subjective - Date & Time of Evaluation Date of Evaluation: 07/07/17 Time of Evaluation: 09:45 - Subjective Subjective: Comfortable, not in distress, no fevers overnight, less abdominal pain. Objective - Vital Signs/Intake and Output Vital Signs (last 24 hours): Temp Pulse Resp BP Pulse Ox 98 F 76 20 117/58 L 96 07/07/17 07:56 07/07/17 07:56 07/07/17 07:56 07/07/17 07:56 07/07/17 07:56 Intake and Output: 07/07/17 07/07/17 06:59 18:59 Intake Total 240 Output Total 115 Balance 125 - Medications Medications: Current Medications Abacavir Sulfate (Ziagen) 300 mg PO BID [facility] Last Admin: 07/06/17 17:19 Dose: 300 mg Acetaminophen (Tylenol 325mg Tab) 650 mg PO Q4H PRN PRN Reason: Fever >100.4 F Last Admin: 07/07/17 05:43 Dose: 650 mg Albuterol/Ipratropium (Duoneb 3 Mg/0.5 Mg (3 Ml) Ud) 3 ml IH Q2H PRN PRN Reason: Shortness of Breath Allopurinol (Zyloprim) 300 mg PO DAILY [facility] Last Admin: 07/06/17 13:21 Dose: 300 mg Collagenase (Santyl) 0 gm TOP DAILY [facility] Stop: 07/13/17 23:00 Darbepoetin Mario (Aranesp) 100 mcg IVP ONCE ONE Stop: 07/10/17 15:12 Darbepoetin Mario (Aranesp) 25 mcg IVP ONCE ONE Stop: 07/10/17 15:31 Ergocalciferol (Drisdol 50,000 Intl Units Cap) 1 cap PO Q7D [facility] Last Admin: 07/06/17 13:21 Dose: 1 cap Ferrous Sulfate (Feosol) 324 mg PO BID [facility] Last Admin: 07/06/17 17:19 Dose: 324 mg Heparin Sodium (Porcine) (Heparin) 5,000 units SC Q12 [facility] PRN Reason: Protocol Last Admin: 07/06/17 21:38 Dose: 5,000 units Home Med (Home Med) 1 unit PO DAILY [facility] Last Admin: 07/06/17 13:22 Dose: Not Given Meropenem 500 mg/ Sodium (Chloride) 50 mls @ 100 mls/hr IVPB Q12 [facility] PRN Reason: Protocol Stop: 07/13/17 10:01 Last Admin: 07/06/17 21:38 Dose: 100 mls/hr Lamivudine (Epivir) 50 mg PO DAILY [facility] Last Admin: 07/06/17 17:19 Dose: 50 mg Meclizine HCl (Antivert) 25 mg PO Q8H PRN PRN Reason: Dizziness Metoprolol Tartrate (Lopressor) 25 mg PO BRKDIN [facility] Last Admin: 07/06/17 17:19 Dose: 25 mg Ondansetron HCl (Zofran Inj) 4 mg IVP DAILY [facility] Last Admin: 07/06/17 12:55 Dose: Not Given Pantoprazole Sodium (Protonix Inj) 40 mg IVP 0600 [facility] Last Admin: 07/07/17 05:38 Dose: 40 mg Sevelamer HCl (Renagel) 1,600 mg PO WM [facility] Last Admin: 07/06/17 17:19 Dose: 1,600 mg Vitamin B Complex/Vit C/Folic Acid (Nephro-Christel) 1 tab PO DAILY [facility] Last Admin: 07/06/17 13:21 Dose: 1 tab - Labs Labs: 07/07/17 07:20 07/07/17 07:20 - Constitutional Appears: Chronically Ill - Head Exam Head Exam: NORMAL INSPECTION - Respiratory Exam Respiratory Exam: Decreased Breath Sounds - Cardiovascular Exam Cardiovascular Exam: +S1, +S2 - GI/Abdominal Exam GI & Abdominal Exam: Soft. absent: Tenderness Assessment and Plan - Assessment and Plan (Free Text) Plan: Assessment systemic inflammatory response syndrome, consider sepsis due to UTI associated with right sided nephrolithiasis history of severe sepsis with acute on chronic renal failure probably due to pyelonephritis with E. coli bacteremia history of C. diff. associated diarrhea Charcot foot, left history of left 2nd toe dry gangrene Chronic renal failure on hemodialysis HTN prostate CA HIV ([facility] [place] 03/2016 349 and virus load < 1.3 log) history of osteomyelitis of left first toe S/P amputation (2015) gout history of left foot ulcers Plan continue Merrem day 2; blood are negative so far, urine cx is showing contamination - will repeat urine cx; reviewed CT A/P - suggest Urology evaluation continue antiretroviral therapy (lamivudine, abacavir on formulary but dolutegravir should be taken by patient from his home supply) will continue to monitor clinically
[2017-07-07] MEDS: LamiVUDine 10 mg/ml Syringe PO SCH (14:56)
--- NOTE | 2017-07-07 15:51 | CP.PCM.PN ---
Subjective - Date & Time of Evaluation Date of Evaluation: 07/07/17 Time of Evaluation: 15:49 - Subjective Subjective: seen and examined, wants pain medication for feet o: Physical Examination: General Appearance: Comfortable, in no acute respiratory distress, co-operative . Vitals reviewed and noted as below Head; Atraumatic, normocephalic ENT: no ulcers no thrush. Tongue is midline. Oropharynx: no rash or ulcers. EYES: Pupils are equal, round and reactive to light accommodation. Eye muscles and extraocular movement intact. Sclera is anicteric. Neck; supple no lymphadenopathy, no thyromegaly or bruit Lungs: Normal respiratory rate/effort. Breath sounds bilateral clear Heart: Normal rate. s1s2 normal. No rub or gallop. Extremities: no edema. No varicose veins Neurological: Patient is alert, awake and oriented to person, place and time. No focal deficit. Strength bilateral appropriate and equal Skin: Warm and dry. Normal turgor. No rash. Palpitation: Normal elasticity for age Abdomen: Abdomen is soft. Bowel sounds +. There is mild lower abdominal tenderness, no guarding/rigidity no organomegaly Psych: normal insight and normal affect/mood MSK: no joint tenderness or swelling. Digits and nails normal, has rt foot deformity noted with ulcer on medial malleolus. left foot toe amputations in past : kidney or bladder not palpable. Access: permacath IMP/PLAN: Left hydroureteronephrosis with ? pyelonephritis bladder wall thickening, hx of prostate CA Hypertensive Chronic Kidney Disease (I12.9) ESRD on HD via permacath (TTS) Anemia (D64.9), HTN (I12.9) HIV on HAART, PVD Plan HD today aransep 125 mcg weekly for anemia. not on VDRA as PTH at goal. pt on weekly vit D phos at goal bp ok f/u f/u ID Objective - Vital Signs/Intake and Output Vital Signs (last 24 hours): Temp Pulse Resp BP Pulse Ox 98 F 84 20 147/78 96 07/07/17 07:56 07/07/17 14:37 07/07/17 07:56 07/07/17 14:37 07/07/17 07:56 Intake and Output: 07/07/17 07/07/17 06:59 18:59 Intake Total 240 Output Total 115 Balance 125 - Medications Medications: Current Medications Abacavir Sulfate (Ziagen) 300 mg PO BID [facility] Last Admin: 07/07/17 14:36 Dose: 300 mg Acetaminophen (Tylenol 325mg Tab) 650 mg PO Q4H PRN PRN Reason: Fever >100.4 F Last Admin: 07/07/17 05:43 Dose: 650 mg Albuterol/Ipratropium (Duoneb 3 Mg/0.5 Mg (3 Ml) Ud) 3 ml IH Q2H PRN PRN Reason: Shortness of Breath Allopurinol (Zyloprim) 300 mg PO DAILY [facility] Last Admin: 07/07/17 14:36 Dose: 300 mg Collagenase (Santyl) 0 gm TOP DAILY [facility] Stop: 07/13/17 23:00 Last Admin: 07/07/17 14:46 Dose: 250 unit Darbepoetin Mario (Aranesp) 100 mcg IVP ONCE ONE Stop: 07/10/17 15:12 Darbepoetin Mario (Aranesp) 25 mcg IVP ONCE ONE Stop: 07/10/17 15:31 Ergocalciferol (Drisdol 50,000 Intl Units Cap) 1 cap PO Q7D [facility] Last Admin: 07/06/17 13:21 Dose: 1 cap Ferrous Sulfate (Feosol) 324 mg PO BID [facility] Last Admin: 07/07/17 12:14 Dose: Not Given Heparin Sodium (Porcine) (Heparin) 5,000 units SC Q12 [facility] PRN Reason: Protocol Last Admin: 07/07/17 12:15 Dose: Not Given Home Med (Home Med) 1 unit PO DAILY [facility] Last Admin: 07/06/17 13:22 Dose: Not Given Meropenem 500 mg/ Sodium (Chloride) 50 mls @ 100 mls/hr IVPB Q12 [facility] PRN Reason: Protocol Stop: 07/13/17 10:01 Last Admin: 07/07/17 14:48 Dose: 100 mls/hr Lamivudine (Epivir) 50 mg PO DAILY [facility] Last Admin: 07/07/17 14:56 Dose: 50 mg Meclizine HCl (Antivert) 25 mg PO Q8H PRN PRN Reason: Dizziness Metoprolol Tartrate (Lopressor) 25 mg PO BRKDIN [facility] Last Admin: 07/07/17 14:37 Dose: 25 mg Ondansetron HCl (Zofran Inj) 4 mg IVP DAILY [facility] Last Admin: 07/07/17 12:19 Dose: Not Given Pantoprazole Sodium (Protonix Inj) 40 mg IVP 0600 [facility] Last Admin: 07/07/17 05:38 Dose: 40 mg Sevelamer HCl (Renagel) 1,600 mg PO WM [facility] Last Admin: 07/07/17 14:36 Dose: 1,600 mg Vitamin B Complex/Vit C/Folic Acid (Nephro-Christel) 1 tab PO DAILY [facility] Last Admin: 07/07/17 14:37 Dose: 1 tab - Labs Labs: 07/07/17 07:20 07/07/17 07:20
[2017-07-07] MEDS: DOLUTEGRAVIR 50 MG PO SCH (17:21)
[2017-07-08 05:55] LABS: BASO # 0.02 K/mm3 (0.0-2.0); BASO % 0.2 % (0.0-3.0); EOS # 0.4 (0.0-0.7); EOS % 3.9 % (1.5-5.0); GRAN # 4.98 (1.4-6.5); GRAN % 51.1 % (50.0-68.0); HEMATOCRIT 34.5 % (42.0-52.0); LYMPH % 31.2 % (22.0-35.0); MEAN CELL VOLUME 99.7 fl (80.0-105.0); MEAN CORPUSCULAR HEMOGLOBIN 30.9 pg (25.0-35.0); MEAN PLATELET VOLUME 11.1 fl (7.0-11.0); MONO # 1.3 (0.1-0.6); MONO % 13.6 % (1.0-6.0); RED CELL DISTRIBUTION WIDTH 15.3 % (11.5-14.5); WHITE BLOOD COUNT 9.7 10^3/ul (4.5-11.0)
[2017-07-08 06:10] LABS: ALB/GLOB RATIO 0.8 (1.1-1.8); BILIRUBIN,TOTAL 0.5 mg/dL (0.2-1.3); CALCIUM 8.7 mg/dL (8.4-10.5); PHOSPHOROUS 2.7 mg/dL (2.5-4.5); TOTAL PROTEIN 7.6 g/dL (5.8-8.3)
--- NOTE | 2017-07-08 08:45 | CP.PCM.PN ---
<Corin Perez - Last Filed: 07/08/17 10:33> Subjective - Date & Time of Evaluation Date of Evaluation: 07/08/17 Time of Evaluation: 08:10 - Subjective Subjective: Medicine progress note for Dr Sesay/Angie service Patient reported the foot pain improved after he received tramadol. Patient states the wound dressing irritated his skin thus he decided to remove it. Denies fever, chills, n/v/d. Reported the abdominal pain has resolved. Denies cp or sob. Objective - Vital Signs/Intake and Output Vital Signs (last 24 hours): Temp Pulse Resp BP Pulse Ox 98.8 F 84 20 127/78 97 07/08/17 07:45 07/08/17 08:34 07/08/17 07:45 07/08/17 08:34 07/08/17 07:45 Intake and Output: 07/08/17 07/08/17 06:59 18:59 Intake Total 840 Output Total 0 Balance 840 - Medications Medications: Current Medications Abacavir Sulfate (Ziagen) 300 mg PO BID [facility] Last Admin: 07/07/17 18:10 Dose: 300 mg Acetaminophen (Tylenol 325mg Tab) 650 mg PO Q4H PRN PRN Reason: Fever >100.4 F Last Admin: 07/07/17 05:43 Dose: 650 mg Albuterol/Ipratropium (Duoneb 3 Mg/0.5 Mg (3 Ml) Ud) 3 ml IH Q2H PRN PRN Reason: Shortness of Breath Allopurinol (Zyloprim) 300 mg PO DAILY [facility] Last Admin: 07/07/17 14:36 Dose: 300 mg Collagenase (Santyl) 0 gm TOP DAILY [facility] Stop: 07/13/17 23:00 Last Admin: 07/07/17 14:46 Dose: 250 unit Darbepoetin Mario (Aranesp) 100 mcg IVP ONCE ONE Stop: 07/10/17 15:12 Darbepoetin Mario (Aranesp) 25 mcg IVP ONCE ONE Stop: 07/10/17 15:31 Ergocalciferol (Drisdol 50,000 Intl Units Cap) 1 cap PO Q7D [facility] Last Admin: 07/06/17 13:21 Dose: 1 cap Ferrous Sulfate (Feosol) 324 mg PO BID [facility] Last Admin: 07/07/17 17:32 Dose: 324 mg Heparin Sodium (Porcine) (Heparin) 5,000 units SC Q12 [facility] PRN Reason: Protocol Last Admin: 07/07/17 21:32 Dose: 5,000 units Home Med (Home Med) 1 unit PO DAILY [facility] Last Admin: 07/07/17 17:21 Dose: Not Given Meropenem 500 mg/ Sodium (Chloride) 50 mls @ 100 mls/hr IVPB Q12 [facility] PRN Reason: Protocol Stop: 07/13/17 10:01 Last Admin: 07/07/17 21:31 Dose: 100 mls/hr Lamivudine (Epivir) 50 mg PO DAILY [facility] Last Admin: 07/07/17 14:56 Dose: 50 mg Meclizine HCl (Antivert) 25 mg PO Q8H PRN PRN Reason: Dizziness Metoprolol Tartrate (Lopressor) 25 mg PO BRKDIN [facility] Last Admin: 07/08/17 08:34 Dose: 25 mg Ondansetron HCl (Zofran Inj) 4 mg IVP DAILY [facility] Last Admin: 07/07/17 12:19 Dose: Not Given Pantoprazole Sodium (Protonix Inj) 40 mg IVP 0600 [facility] Last Admin: 07/08/17 05:43 Dose: 40 mg Sevelamer HCl (Renagel) 1,600 mg PO WM [facility] Last Admin: 07/08/17 08:34 Dose: 1,600 mg Tramadol HCl (Ultram) 50 mg PO Q8H PRN PRN Reason: Pain, moderate (4-7) Last Admin: 07/08/17 01:35 Dose: 50 mg Vitamin B Complex/Vit C/Folic Acid (Nephro-Christel) 1 tab PO DAILY [facility] Last Admin: 07/07/17 14:37 Dose: 1 tab - Labs Labs: 07/08/17 05:35 07/08/17 05:35 - Constitutional Appears: No Acute Distress, Cachectic, Chronically Ill - Head Exam Head Exam: ATRAUMATIC, NORMAL INSPECTION, NORMOCEPHALIC - Eye Exam Eye Exam: Normal appearance. absent: Scleral icterus - ENT Exam ENT Exam: Mucous Membranes Dry - Neck Exam Neck Exam: Normal Inspection - Respiratory Exam Respiratory Exam: Clear to Ausculation Bilateral, NORMAL BREATHING PATTERN. absent: Prolonged Expiratory Phase, Rales, Rhonchi, Wheezes, Respiratory Distress, Stridor - Cardiovascular Exam Cardiovascular Exam: REGULAR RHYTHM, RRR, +S1, +S2. absent: Gallop, JVD, Rubs - GI/Abdominal Exam GI & Abdominal Exam: Soft, Normal Bowel Sounds. absent: Distended, Firm, Guarding, Rigid, Tenderness - Extremities Exam Extremities Exam: Tenderness. absent: Normal Capillary Refill, Normal Inspection, Pedal Edema - Back Exam Back Exam: NORMAL INSPECTION - Neurological Exam Neurological Exam: Alert, Awake, Oriented x3 - Psychiatric Exam Psychiatric exam: Flat Affect - Skin Skin Exam: Dry Additional comments: facundo heel pressure ulcers, right worst than the left, right side with drainage. unable to palpate posterior tibial and dorsalis pedis pulses facundo. Amputated left 2nd toe Assessment and Plan - Assessment and Plan (Free Text) Assessment: Patient is a PMH of HTN, prostate CA, HIV (last CD4 count on record 03/2016 is 349), history of osteomyelitis of left first toe S/P amputation (2015), gout, ESRD whom presented with abdominal pain and is currently admitted with sepsis due to uti versus wound infection. Plan: 1) Sepsis with UTI versus wound infection the possible source. - Leukocytosis resolved, afebrile. - CT also revealed Moderate left-sided hydroureteronephrosis extending to the left ureterovesicular junction without an obstructing stone visualized. - Pending urology eval - Blood cultures with so far no growth, urine culture with contamination - ID following, on Merrem - Abdominal pain resolved 2) Bladder wall thickening with air fluid level on CT - h/o prostate ca - urology consulted 3) Bilateral heel ulcers, r/o osteomyolitis and PVD. - podiatry consulted - x-ray and arterial duplex studies pending 4) HIV- will continue with Ziagen, epivir, Dolutegravir as per ID 5) ESRD- Renal following for HD - s/p HD yesterday - Continue with renagel 6) h/o gout- continue with allopurinol. 7) Anemia due to esrd- will continue with iron, aranesp as per renal. 8) h/o COPD- continue with duoneb prn 9) h/o vertigo- continue with meclizine prn 10) CAD- continue with Lopressor. 11) Gi prophylaxis with protonix, dvt prophylaxis with heparin sc. Patient seen, examined and case discussed with Dr Brownlee. <Parag Brownlee - Last Filed: 07/09/17 06:49> Objective - Vital Signs/Intake and Output Vital Signs (last 24 hours): Temp Pulse Resp BP Pulse Ox 98.0 F 80 18 116/71 98 07/09/17 00:00 07/09/17 00:00 07/09/17 00:00 07/09/17 00:00 07/09/17 00:00 Intake and Output: 07/08/17 07/09/17 18:59 06:59 Intake Total 1020 Balance 1020 - Medications Medications: Current Medications Abacavir Sulfate (Ziagen) 300 mg PO BID [facility] Last Admin: 07/08/17 17:28 Dose: 300 mg Acetaminophen (Tylenol 325mg Tab) 650 mg PO Q4H PRN PRN Reason: Fever >100.4 F Last Admin: 07/08/17 20:09 Dose: 650 mg Albuterol/Ipratropium (Duoneb 3 Mg/0.5 Mg (3 Ml) Ud) 3 ml IH Q2H PRN PRN Reason: Shortness of Breath Allopurinol (Zyloprim) 300 mg PO DAILY [facility] Last Admin: 07/08/17 09:27 Dose: 300 mg Collagenase (Santyl) 0 gm TOP DAILY [facility] Stop: 07/13/17 23:00 Last Admin: 07/08/17 09:26 Dose: 250 unit Darbepoetin Mario (Aranesp) 100 mcg IVP ONCE ONE Stop: 07/10/17 15:12 Darbepoetin Mario (Aranesp) 25 mcg IVP ONCE ONE Stop: 07/10/17 15:31 Ergocalciferol (Drisdol 50,000 Intl Units Cap) 1 cap PO Q7D [facility] Last Admin: 07/06/17 13:21 Dose: 1 cap Ferrous Sulfate (Feosol) 324 mg PO BID [facility] Last Admin: 07/08/17 17:28 Dose: 324 mg Heparin Sodium (Porcine) (Heparin) 5,000 units SC Q12 [facility] PRN Reason: Protocol Last Admin: 07/08/17 21:22 Dose: 5,000 units Home Med (Home Med) 1 unit PO DAILY [facility] Last Admin: 07/08/17 10:47 Dose: Not Given Meropenem 500 mg/ Sodium (Chloride) 50 mls @ 100 mls/hr IVPB Q12 [facility] PRN Reason: Protocol Stop: 07/13/17 10:01 Last Admin: 07/08/17 21:21 Dose: 100 mls/hr Lamivudine (Epivir) 50 mg PO DAILY [facility] Last Admin: 07/08/17 10:11 Dose: 50 mg Meclizine HCl (Antivert) 25 mg PO Q8H PRN PRN Reason: Dizziness Metoprolol Tartrate (Lopressor) 25 mg PO BRKDIN [facility] Last Admin: 07/08/17 17:28 Dose: 25 mg Ondansetron HCl (Zofran Inj) 4 mg IVP DAILY [facility] Last Admin: 07/08/17 09:27 Dose: 4 mg Pantoprazole Sodium (Protonix Ec Tab) 40 mg PO 0600 [facility] Last Admin: 07/09/17 05:36 Dose: 40 mg Sevelamer HCl (Renagel) 1,600 mg PO WM [facility] Last Admin: 07/08/17 17:28 Dose: 1,600 mg Tramadol HCl (Ultram) 50 mg PO Q8H PRN PRN Reason: Pain, moderate (4-7) Last Admin: 07/08/17 23:42 Dose: 50 mg Vitamin B Complex/Vit C/Folic Acid (Nephro-Christel) 1 tab PO DAILY [facility] Last Admin: 07/08/17 10:48 Dose: Not Given - Labs Labs: 07/08/17 05:35 07/08/17 05:35 Assessment and Plan - Assessment and Plan (Free Text) Plan: discussed / resident at length went over meds labs orders and plans
--- NOTE | 2017-07-08 09:13 | RAD ---
PROCEDURE: Right Ankle Radiographs. HISTORY: right ankle ulcer COMPARISON: None FINDINGS: BONES: There is partial collapse of the talus with extensive talonavicular arthropathy. Pes planus deformity. Findings suggestive neuropathic arthropathy. JOINTS: Tibiotalar articulation intact. SOFT TISSUES: Normal. OTHER FINDINGS: None. IMPRESSION: Findings suggestive of neuropathic arthropathy with talar collapse and talonavicular extensive arthropathy.
--- NOTE | 2017-07-08 09:17 | RAD ---
PROCEDURE: Bilateral Feet Radiographs. HISTORY: heel ulcer COMPARISON: None. FINDINGS: BONES: Right Foot: Talar collapse. No acute fracture. No periosteal reaction or osseous erosion appreciated to suggest osteo myelitis. Left Foot: Status post amputation of 1st and 2nd digits at the metatarsal phalangeal articulations. No acute fracture. Mild talar collapse suggestive of neuropathic arthropathy. Mature deformity 3rd and 4th digits. JOINTS: Right Foot: Talonavicular osteoarthritis. Osteoarthritis at 1st tarsal metatarsal articulation and MTP 1. Multiple hammertoe deformities. Left Foot: As above SOFT TISSUES: Right Foot: Normal. Left Foot: Normal. OTHER FINDINGS: None. IMPRESSION: No acute fracture. 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 Amputation left 1st and 2nd digits. No plain radiographic evidence of osteomyelitis. If there is clinical concern regarding osteomyelitis then further pursued with magnetic resonance imaging is advised.
[2017-07-08] MEDS: Collagenase 250 Units/gm Ointment(30 gm) TOP SCH (09:26)
[2017-07-08] MEDS: Meropenem 500 MG in Sodium Chloride 0.9% 50 ML IVPB SCH ×2 (09:32→21:21)
[2017-07-08] MEDS: LamiVUDine 10 mg/ml Syringe PO SCH (10:11)
[2017-07-08] MEDS: DOLUTEGRAVIR 50 MG PO SCH (10:47)
[2017-07-08] MEDS: Multivitamin Vitamin B Complex (Nephro-Vite) Tab PO SCH (10:48)
--- NOTE | 2017-07-08 11:11 | CP.PCM.PN ---
<Paty Sawyer - Last Filed: 07/08/17 11:05> Subjective - Date & Time of Evaluation Date of Evaluation: 07/08/17 Time of Evaluation: 08:25 - Subjective Subjective: 71 y/o male patient seen and evaluated at bedside concerning open ulcerations to bilateral lower extremities. AAOx3. Patient was resting comfortably in bed and in NAD. Patient denies any symptoms of N/V/F/SOB/Chest pain. Patient had taken off the dressing to bilateral feet. No dressing was found intact at the time of visit. Patient explains that the dressing was irritating the foot. Patient was strongly advised to keep the dressings clean dry and intact. Possible risks of uncovered open wounds explained in detail. Objective - Vital Signs/Intake and Output Vital Signs (last 24 hours): Temp Pulse Resp BP Pulse Ox 98.8 F 84 20 127/78 97 07/08/17 07:45 07/08/17 08:34 07/08/17 07:45 07/08/17 08:34 07/08/17 07:45 Intake and Output: 07/08/17 07/08/17 06:59 18:59 Intake Total 840 Output Total 0 Balance 840 - Medications Medications: Current Medications Abacavir Sulfate (Ziagen) 300 mg PO BID [facility] Last Admin: 07/08/17 09:28 Dose: 300 mg Acetaminophen (Tylenol 325mg Tab) 650 mg PO Q4H PRN PRN Reason: Fever >100.4 F Last Admin: 07/07/17 05:43 Dose: 650 mg Albuterol/Ipratropium (Duoneb 3 Mg/0.5 Mg (3 Ml) Ud) 3 ml IH Q2H PRN PRN Reason: Shortness of Breath Allopurinol (Zyloprim) 300 mg PO DAILY [facility] Last Admin: 07/08/17 09:27 Dose: 300 mg Collagenase (Santyl) 0 gm TOP DAILY [facility] Stop: 07/13/17 23:00 Last Admin: 07/08/17 09:26 Dose: 250 unit Darbepoetin Mario (Aranesp) 100 mcg IVP ONCE ONE Stop: 07/10/17 15:12 Darbepoetin Mario (Aranesp) 25 mcg IVP ONCE ONE Stop: 07/10/17 15:31 Ergocalciferol (Drisdol 50,000 Intl Units Cap) 1 cap PO Q7D [facility] Last Admin: 07/06/17 13:21 Dose: 1 cap Ferrous Sulfate (Feosol) 324 mg PO BID [facility] Last Admin: 07/08/17 09:27 Dose: 324 mg Heparin Sodium (Porcine) (Heparin) 5,000 units SC Q12 [facility] PRN Reason: Protocol Last Admin: 07/08/17 09:26 Dose: 5,000 units Home Med (Home Med) 1 unit PO DAILY [facility] Last Admin: 07/08/17 10:47 Dose: Not Given Meropenem 500 mg/ Sodium (Chloride) 50 mls @ 100 mls/hr IVPB Q12 [facility] PRN Reason: Protocol Stop: 07/13/17 10:01 Last Admin: 07/08/17 09:32 Dose: 100 mls/hr Lamivudine (Epivir) 50 mg PO DAILY [facility] Last Admin: 07/08/17 10:11 Dose: 50 mg Meclizine HCl (Antivert) 25 mg PO Q8H PRN PRN Reason: Dizziness Metoprolol Tartrate (Lopressor) 25 mg PO BRKDIN [facility] Last Admin: 07/08/17 08:34 Dose: 25 mg Ondansetron HCl (Zofran Inj) 4 mg IVP DAILY [facility] Last Admin: 07/08/17 09:27 Dose: 4 mg Pantoprazole Sodium (Protonix Inj) 40 mg IVP 0600 [facility] Last Admin: 07/08/17 05:43 Dose: 40 mg Sevelamer HCl (Renagel) 1,600 mg PO WM [facility] Last Admin: 07/08/17 08:34 Dose: 1,600 mg Tramadol HCl (Ultram) 50 mg PO Q8H PRN PRN Reason: Pain, moderate (4-7) Last Admin: 07/08/17 01:35 Dose: 50 mg Vitamin B Complex/Vit C/Folic Acid (Nephro-Christel) 1 tab PO DAILY [facility] Last Admin: 07/08/17 10:48 Dose: Not Given - Labs Labs: 07/08/17 05:35 07/08/17 05:35 - Constitutional Appears: Well, Non-toxic, No Acute Distress - Head Exam Head Exam: ATRAUMATIC - Extremities Exam Additional comments: Bilateral lower extremity examination: DERM: Right: Open ulceration noted to Medial aspect of right Medial malleolus measuring 3cm x 2cm x 0.2cm with fibrotic base. No malodor noted. No purulent drainage noted. No tracking noted. No ptb. Mild erythema to margins <0.5cm. No sign of acute infection is noted Another open ulceration noted to lateral aspect of right heel measuring 2cm x 0.5cm x 0.2cm with fibrotic base, No malodor noted. No purulent drainage noted. No tracking noted. No ptb. Mild erythema to margins <0.5cm. No sign of acute infection is noted LEFT: Bone exposed to distal aspect of 3rd digit. An superficial ulceration noted to distal aspect of LEFT 3rd digit with granular base. No drainage is noted, No pus noted. Possible bone exposure noted to left 3rd digit VASC: B/L non-palpable pedal pulses; foot is cool distally at the level of the distal metatarsals and toes; delayed capillary fill time is noted; dry gangrene is noted at the Left 2nd digit NEURO: protective sensation is grossly diminished ORTHO: RIGHT medial aspect of the ankle and medial aspect of the rearfoot and midfoot are tender upon palpation; gross midfoot collapse is appreciated secondary to Charcot. LEFT 1st and 2nd digit amputation noted. - Neurological Exam Neurological Exam: Alert, Awake, Oriented x3 - Psychiatric Exam Psychiatric exam: Normal Affect, Normal Mood - Skin Skin Exam: Normal Color, Warm Assessment and Plan - Assessment and Plan (Free Text) Assessment: 71 yo male patient presenting with non-healing open ulcerations to bilateral feet, exposed bone to left 3rd digit Plan: Patient seen and evaluated at bedside Labs and vitals were reviewed All the questions and concerns were addressed Right foot dressing was removed and cleansed with normal sterile saline Right foot dressed with Santyl and DSD Left foot dressing was removed and cleansed with normal sterile saline Left foot was dressed with Bactroban Optifoam to lateral heel Left 3rd digit dressed with Xeroform DSD Right foot medial ankle wound culture taken Xray bilateral reveals no acute fracture or avidence of OM. MRI to be considered to r/o Left 3rd digit possible OM Arterial duplex pending Bactroban ordered Santyl ordered Multipodus boot ordered for bilateral lower extremities; to be applied at all times Podiatry will continue to follow while remains in house. <Jerrod Dunn - Last Filed: 07/11/17 11:15> Objective - Vital Signs/Intake and Output Vital Signs (last 24 hours): Temp Pulse Resp BP Pulse Ox 99.1 F 80 20 155/45 H 98 07/11/17 07:30 07/11/17 08:42 07/11/17 07:30 07/11/17 08:42 07/11/17 07:30 Intake and Output: 07/11/17 07/11/17 06:59 18:59 Intake Total 420 Output Total 100 Balance 320 - Medications Medications: Current Medications Abacavir Sulfate (Ziagen) 300 mg PO BID [facility] Last Admin: 07/10/17 17:11 Dose: 300 mg Acetaminophen (Tylenol 325mg Tab) 650 mg PO Q4H PRN PRN Reason: Fever >100.4 F Last Admin: 07/08/17 20:09 Dose: 650 mg Albuterol/Ipratropium (Duoneb 3 Mg/0.5 Mg (3 Ml) Ud) 3 ml IH Q2H PRN PRN Reason: Shortness of Breath Allopurinol (Zyloprim) 300 mg PO DAILY [facility] Last Admin: 07/10/17 12:19 Dose: 300 mg Collagenase (Santyl) 0 gm TOP DAILY [facility] Stop: 07/13/17 23:00 Last Admin: 07/10/17 14:08 Dose: 1 unit Ergocalciferol (Drisdol 50,000 Intl Units Cap) 1 cap PO Q7D [facility] Last Admin: 07/06/17 13:21 Dose: 1 cap Ferrous Sulfate (Feosol) 324 mg PO BID [facility] Last Admin: 07/10/17 17:10 Dose: 324 mg Heparin Sodium (Porcine) (Heparin) 5,000 units SC Q12 [facility] PRN Reason: Protocol Last Admin: 07/10/17 23:37 Dose: 5,000 units Home Med (Home Med) 1 unit PO DAILY [facility] Last Admin: 07/10/17 11:22 Dose: Not Given Lamivudine (Epivir) 50 mg PO DAILY [facility] Last Admin: 07/10/17 14:08 Dose: 50 mg Meclizine HCl (Antivert) 25 mg PO Q8H PRN PRN Reason: Dizziness Metoprolol Tartrate (Lopressor) 25 mg PO BRKDIN [facility] Last Admin: 07/11/17 08:42 Dose: 25 mg Ondansetron HCl (Zofran Inj) 4 mg IVP DAILY [facility] Last Admin: 07/10/17 12:36 Dose: Not Given Pantoprazole Sodium (Protonix Ec Tab) 40 mg PO 0600 [facility] Last Admin: 07/11/17 05:57 Dose: 40 mg Sevelamer HCl (Renagel) 800 mg PO WM [facility] Last Admin: 07/11/17 08:42 Dose: 800 mg Tramadol HCl (Ultram) 50 mg PO Q8H PRN PRN Reason: Pain, moderate (4-7) Last Admin: 07/10/17 00:04 Dose: 50 mg Vitamin B Complex/Vit C/Folic Acid (Nephro-Christel) 1 tab PO DAILY [facility] Last Admin: 07/10/17 12:27 Dose: 1 tab - Labs Labs: 07/11/17 10:18 07/11/17 10:18 Attending/Attestation - Attestation I have personally seen and examined this patient.: Yes I have fully participated in the care of the patient.: Yes I have reviewed all pertinent clinical information, including history, physical exam and plan: Yes
--- NOTE | 2017-07-08 16:49 | CP.PCM.PN ---
Subjective - Date & Time of Evaluation Date of Evaluation: 07/08/17 Time of Evaluation: 15:40 - Subjective Subjective: Patient still has occasional pain in the right foot, improved right-sided abdominal pain. Objective - Vital Signs/Intake and Output Vital Signs (last 24 hours): Temp Pulse Resp BP Pulse Ox 98.8 F 84 20 127/78 97 07/08/17 07:45 07/08/17 08:34 07/08/17 07:45 07/08/17 08:34 07/08/17 07:45 Intake and Output: 07/08/17 07/08/17 06:59 18:59 Intake Total 840 Output Total 0 Balance 840 - Medications Medications: Current Medications Abacavir Sulfate (Ziagen) 300 mg PO BID [facility] Last Admin: 07/07/17 18:10 Dose: 300 mg Acetaminophen (Tylenol 325mg Tab) 650 mg PO Q4H PRN PRN Reason: Fever >100.4 F Last Admin: 07/07/17 05:43 Dose: 650 mg Albuterol/Ipratropium (Duoneb 3 Mg/0.5 Mg (3 Ml) Ud) 3 ml IH Q2H PRN PRN Reason: Shortness of Breath Allopurinol (Zyloprim) 300 mg PO DAILY [facility] Last Admin: 07/07/17 14:36 Dose: 300 mg Collagenase (Santyl) 0 gm TOP DAILY [facility] Stop: 07/13/17 23:00 Last Admin: 07/07/17 14:46 Dose: 250 unit Darbepoetin Mario (Aranesp) 100 mcg IVP ONCE ONE Stop: 07/10/17 15:12 Darbepoetin Mario (Aranesp) 25 mcg IVP ONCE ONE Stop: 07/10/17 15:31 Ergocalciferol (Drisdol 50,000 Intl Units Cap) 1 cap PO Q7D [facility] Last Admin: 07/06/17 13:21 Dose: 1 cap Ferrous Sulfate (Feosol) 324 mg PO BID [facility] Last Admin: 07/07/17 17:32 Dose: 324 mg Heparin Sodium (Porcine) (Heparin) 5,000 units SC Q12 [facility] PRN Reason: Protocol Last Admin: 07/07/17 21:32 Dose: 5,000 units Home Med (Home Med) 1 unit PO DAILY [facility] Last Admin: 07/07/17 17:21 Dose: Not Given Meropenem 500 mg/ Sodium (Chloride) 50 mls @ 100 mls/hr IVPB Q12 [facility] PRN Reason: Protocol Stop: 07/13/17 10:01 Last Admin: 07/07/17 21:31 Dose: 100 mls/hr Lamivudine (Epivir) 50 mg PO DAILY [facility] Last Admin: 07/07/17 14:56 Dose: 50 mg Meclizine HCl (Antivert) 25 mg PO Q8H PRN PRN Reason: Dizziness Metoprolol Tartrate (Lopressor) 25 mg PO BRKDIN [facility] Last Admin: 07/08/17 08:34 Dose: 25 mg Ondansetron HCl (Zofran Inj) 4 mg IVP DAILY [facility] Last Admin: 07/07/17 12:19 Dose: Not Given Pantoprazole Sodium (Protonix Inj) 40 mg IVP 0600 [facility] Last Admin: 07/08/17 05:43 Dose: 40 mg Sevelamer HCl (Renagel) 1,600 mg PO WM [facility] Last Admin: 07/08/17 08:34 Dose: 1,600 mg Tramadol HCl (Ultram) 50 mg PO Q8H PRN PRN Reason: Pain, moderate (4-7) Last Admin: 07/08/17 01:35 Dose: 50 mg Vitamin B Complex/Vit C/Folic Acid (Nephro-Christel) 1 tab PO DAILY [facility] Last Admin: 07/07/17 14:37 Dose: 1 tab - Labs Labs: 07/08/17 05:35 07/08/17 05:35 - Constitutional Appears: Non-toxic - Head Exam Head Exam: NORMAL INSPECTION - ENT Exam ENT Exam: Mucous Membranes Moist - Neck Exam Neck Exam: absent: Lymphadenopathy, Meningismus - Respiratory Exam Respiratory Exam: Decreased Breath Sounds - Cardiovascular Exam Cardiovascular Exam: +S1, +S2 - GI/Abdominal Exam GI & Abdominal Exam: Soft. absent: Tenderness - Extremities Exam Additional comments: right foot with dressings in place Assessment and Plan - Assessment and Plan (Free Text) Plan: Assessment systemic inflammatory response syndrome, consider sepsis due to UTI associated with right sided nephrolithiasis possible right 3rd digit osteomyelitis R/O PAD history of severe sepsis with acute on chronic renal failure probably due to pyelonephritis with E. coli bacteremia history of C. diff. associated diarrhea Charcot foot, left history of left 2nd toe dry gangrene Chronic renal failure on hemodialysis HTN prostate CA HIV ([facility] 03/2016 349 and virus load < 1.3 log) history of osteomyelitis of left first toe S/P amputation (2015) gout history of left foot ulcers Plan continue Merrem day 3; blood are negative so far, urine cx is showing contamination - will repeat urine cx; reviewed CT A/P - suggest Urology evaluation continue antiretroviral therapy (lamivudine, abacavir on formulary but dolutegravir should be taken by patient from his home supply) follow up xray of the right foot; Podiatry following and considering MRI of the right foot - follow up further recommendations will continue to monitor clinically
[2017-07-09] MEDS: Pantoprazole 40 mg EC Tab PO SCH (05:36)
[2017-07-09 06:55] LABS: BASO # 0.01 K/mm3 (0.0-2.0); BASO % 0.1 % (0.0-3.0); EOS # 0.1 (0.0-0.7); EOS % 1.9 % (1.5-5.0); GRAN # 3.08 (1.4-6.5); GRAN % 46.1 % (50.0-68.0); HEMATOCRIT 31.7 % (42.0-52.0); LYMPH # 2.4 (1.2-3.4); LYMPH % 35.8 % (22.0-35.0); MEAN CELL VOLUME 99.7 fl (80.0-105.0); MEAN CORPUSCULAR HEMOGLOBIN 31.1 pg (25.0-35.0); MEAN CORPUSCULAR HGB CONC 31.2 g/dl (31.0-37.0); MEAN PLATELET VOLUME 11.1 fl (7.0-11.0); MONO # 1.1 (0.1-0.6); MONO % 16.1 % (1.0-6.0); RED CELL DISTRIBUTION WIDTH 15.3 % (11.5-14.5); WHITE BLOOD COUNT 6.7 10^3/ul (4.5-11.0)
[2017-07-09 08:28] LABS: ALB/GLOB RATIO 0.8 (1.1-1.8); BILIRUBIN,TOTAL 0.5 mg/dL (0.2-1.3); CALCIUM 8.7 mg/dL (8.4-10.5); PHOSPHOROUS 2.9 mg/dL (2.5-4.5); POTASSIUM 4.8 mmol/L (3.6-5.0); TOTAL PROTEIN 7.1 g/dL (5.8-8.3)
--- NOTE | 2017-07-09 11:31 | CP.PCM.PN ---
Subjective - Date & Time of Evaluation Date of Evaluation: 07/09/17 Time of Evaluation: 11:27 - Subjective Subjective: Patient seen and evaluated in renal dialysis unit. Overnight patient reported to remove bandages of his feet bilateral indicating the bandages made his feet itch. Patient reports improvement in his symptoms. Patient complains of left sided foot pain that is tolerated with pain medicine. Discussion regarding clinical course conducted and advisement for continued hospital care was conducted. Patient in understanding. Patient denies chest pain, shortness of breath, abdominal discomfort, nausea, vomiting, fever, chills. Objective - Vital Signs/Intake and Output Vital Signs (last 24 hours): Temp Pulse Resp BP Pulse Ox 98 F 80 18 116/71 98 07/09/17 07:00 07/09/17 07:58 07/09/17 07:00 07/09/17 07:58 07/09/17 07:00 Intake and Output: 07/09/17 07/09/17 06:59 18:59 Intake Total 1020 Balance 1020 - Medications Medications: Current Medications Abacavir Sulfate (Ziagen) 300 mg PO BID [facility] Last Admin: 07/08/17 17:28 Dose: 300 mg Acetaminophen (Tylenol 325mg Tab) 650 mg PO Q4H PRN PRN Reason: Fever >100.4 F Last Admin: 07/08/17 20:09 Dose: 650 mg Albuterol/Ipratropium (Duoneb 3 Mg/0.5 Mg (3 Ml) Ud) 3 ml IH Q2H PRN PRN Reason: Shortness of Breath Allopurinol (Zyloprim) 300 mg PO DAILY [facility] Last Admin: 07/08/17 09:27 Dose: 300 mg Collagenase (Santyl) 0 gm TOP DAILY [facility] Stop: 07/13/17 23:00 Last Admin: 07/08/17 09:26 Dose: 250 unit Darbepoetin Mario (Aranesp) 100 mcg IVP ONCE ONE Stop: 07/10/17 15:12 Darbepoetin Mario (Aranesp) 25 mcg IVP ONCE ONE Stop: 07/10/17 15:31 Ergocalciferol (Drisdol 50,000 Intl Units Cap) 1 cap PO Q7D [facility] Last Admin: 07/06/17 13:21 Dose: 1 cap Ferrous Sulfate (Feosol) 324 mg PO BID [facility] Last Admin: 07/08/17 17:28 Dose: 324 mg Heparin Sodium (Porcine) (Heparin) 5,000 units SC Q12 [facility] PRN Reason: Protocol Last Admin: 07/08/17 21:22 Dose: 5,000 units Home Med (Home Med) 1 unit PO DAILY [facility] Last Admin: 07/08/17 10:47 Dose: Not Given Meropenem 500 mg/ Sodium (Chloride) 50 mls @ 100 mls/hr IVPB Q12 [facility] PRN Reason: Protocol Stop: 07/13/17 10:01 Last Admin: 07/08/17 21:21 Dose: 100 mls/hr Lamivudine (Epivir) 50 mg PO DAILY [facility] Last Admin: 07/08/17 10:11 Dose: 50 mg Meclizine HCl (Antivert) 25 mg PO Q8H PRN PRN Reason: Dizziness Metoprolol Tartrate (Lopressor) 25 mg PO BRKDIN [facility] Last Admin: 07/09/17 07:58 Dose: Not Given Ondansetron HCl (Zofran Inj) 4 mg IVP DAILY [facility] Last Admin: 07/08/17 09:27 Dose: 4 mg Pantoprazole Sodium (Protonix Ec Tab) 40 mg PO 0600 [facility] Last Admin: 07/09/17 05:36 Dose: 40 mg Sevelamer HCl (Renagel) 800 mg PO WM [facility] Tramadol HCl (Ultram) 50 mg PO Q8H PRN PRN Reason: Pain, moderate (4-7) Last Admin: 07/08/17 23:42 Dose: 50 mg Vitamin B Complex/Vit C/Folic Acid (Nephro-Christel) 1 tab PO DAILY [facility] Last Admin: 07/08/17 10:48 Dose: Not Given - Labs Labs: 07/09/17 06:15 07/09/17 06:15 - Constitutional Appears: Non-toxic, No Acute Distress - Head Exam Head Exam: ATRAUMATIC, NORMAL INSPECTION, NORMOCEPHALIC - Eye Exam Eye Exam: EOMI, PERRL - ENT Exam ENT Exam: Mucous Membranes Moist - Neck Exam Neck Exam: Full ROM - Respiratory Exam Respiratory Exam: Clear to Ausculation Bilateral, NORMAL BREATHING PATTERN. absent: Rales, Rhonchi, Wheezes - GI/Abdominal Exam GI & Abdominal Exam: Soft, Normal Bowel Sounds. absent: Guarding, Rigid, Tenderness - Extremities Exam Extremities Exam: absent: Pedal Edema Additional comments: Heels of both feet covered in surgical dressing c/d/i - Back Exam Back Exam: NORMAL INSPECTION - Neurological Exam Neurological Exam: Alert, Awake, Normal Gait, Oriented x3 - Psychiatric Exam Psychiatric exam: Normal Affect, Normal Mood - Skin Skin Exam: Dry, Normal Color, Warm Assessment and Plan - Assessment and Plan (Free Text) Assessment: Patient is a PMH of HTN, prostate CA, HIV (last CD4 count on record 03/2016 is 349), history of osteomyelitis of left first toe S/P amputation (2015), gout, ESRD who presented with abdominal pain and is currently admitted with sepsis due to uti versus wound infection. Plan: 1. Sepsis with UTI versus wound infection the possible source. - Leukocytosis resolved, afebrile - CT also revealed Moderate left-sided hydroureteronephrosis extending to the left ureterovesicular junction without an obstructing stone visualized. - Blood culture negative to date - Urine culture with reported contamination - ID following, appreciate recs - IV Merrem Day 4 - Urology consultation, f/u recs 2. Heal ulcers bilateral suspicion for osteomyelitis and PVD - Xray Right ankle: Suggestive of neuropathic arthropathy with talar collapse and talonavicular extensive arthropathy - Xray Left ankle: No acute fracture. 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 No plain evidence of osteomyelitis - Podiatry consulted, appreciate recs - MRI of left foot ordered today, f/u 3. Bladder wall thickening with air fluid level on CT - hx of prostate ca - urology consulted 4. HIV - ID consulted and following - Ziagen, epivir, Dolutegravir as per ID 5. ESRD- Renal following for HD - HD today - Continue with renagel 6.Hx of gout - Allopurinol 7. 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 COPD - Duoneb PRN GI PPX: Protonix DVT PPX: Heparin Patient seen, examined and case discussed Dr. Adams
--- NOTE | 2017-07-09 13:24 | CP.PCM.PN ---
Subjective - Date & Time of Evaluation Date of Evaluation: 07/09/17 Time of Evaluation: 09:30 - Subjective Subjective: Comfortable, occasional foot pain, no fevers overnight. Objective - Vital Signs/Intake and Output Vital Signs (last 24 hours): Temp Pulse Resp BP Pulse Ox 98.0 F 80 18 116/71 98 07/09/17 00:00 07/09/17 00:00 07/09/17 00:00 07/09/17 00:00 07/09/17 00:00 Intake and Output: 07/09/17 07/09/17 06:59 18:59 Intake Total 1020 Balance 1020 - Medications Medications: Current Medications Abacavir Sulfate (Ziagen) 300 mg PO BID [facility] Last Admin: 07/08/17 17:28 Dose: 300 mg Acetaminophen (Tylenol 325mg Tab) 650 mg PO Q4H PRN PRN Reason: Fever >100.4 F Last Admin: 07/08/17 20:09 Dose: 650 mg Albuterol/Ipratropium (Duoneb 3 Mg/0.5 Mg (3 Ml) Ud) 3 ml IH Q2H PRN PRN Reason: Shortness of Breath Allopurinol (Zyloprim) 300 mg PO DAILY [facility] Last Admin: 07/08/17 09:27 Dose: 300 mg Collagenase (Santyl) 0 gm TOP DAILY [facility] Stop: 07/13/17 23:00 Last Admin: 07/08/17 09:26 Dose: 250 unit Darbepoetin Mario (Aranesp) 100 mcg IVP ONCE ONE Stop: 07/10/17 15:12 Darbepoetin Mario (Aranesp) 25 mcg IVP ONCE ONE Stop: 07/10/17 15:31 Ergocalciferol (Drisdol 50,000 Intl Units Cap) 1 cap PO Q7D [facility] Last Admin: 07/06/17 13:21 Dose: 1 cap Ferrous Sulfate (Feosol) 324 mg PO BID [facility] Last Admin: 07/08/17 17:28 Dose: 324 mg Heparin Sodium (Porcine) (Heparin) 5,000 units SC Q12 [facility] PRN Reason: Protocol Last Admin: 07/08/17 21:22 Dose: 5,000 units Home Med (Home Med) 1 unit PO DAILY [facility] Last Admin: 07/08/17 10:47 Dose: Not Given Meropenem 500 mg/ Sodium (Chloride) 50 mls @ 100 mls/hr IVPB Q12 [facility] PRN Reason: Protocol Stop: 07/13/17 10:01 Last Admin: 07/08/17 21:21 Dose: 100 mls/hr Lamivudine (Epivir) 50 mg PO DAILY [facility] Last Admin: 07/08/17 10:11 Dose: 50 mg Meclizine HCl (Antivert) 25 mg PO Q8H PRN PRN Reason: Dizziness Metoprolol Tartrate (Lopressor) 25 mg PO BRKDIN [facility] Last Admin: 07/08/17 17:28 Dose: 25 mg Ondansetron HCl (Zofran Inj) 4 mg IVP DAILY [facility] Last Admin: 07/08/17 09:27 Dose: 4 mg Pantoprazole Sodium (Protonix Ec Tab) 40 mg PO 0600 [facility] Last Admin: 07/09/17 05:36 Dose: 40 mg Sevelamer HCl (Renagel) 1,600 mg PO WM [facility] Last Admin: 07/08/17 17:28 Dose: 1,600 mg Tramadol HCl (Ultram) 50 mg PO Q8H PRN PRN Reason: Pain, moderate (4-7) Last Admin: 07/08/17 23:42 Dose: 50 mg Vitamin B Complex/Vit C/Folic Acid (Nephro-Christel) 1 tab PO DAILY [facility] Last Admin: 07/08/17 10:48 Dose: Not Given - Labs Labs: 07/09/17 06:15 07/08/17 05:35 - Constitutional Appears: Non-toxic - Head Exam Head Exam: NORMAL INSPECTION - ENT Exam ENT Exam: Mucous Membranes Moist - Neck Exam Neck Exam: absent: Meningismus - Respiratory Exam Respiratory Exam: Decreased Breath Sounds - Cardiovascular Exam Cardiovascular Exam: +S1, +S2 - GI/Abdominal Exam GI & Abdominal Exam: Soft. absent: Tenderness - Extremities Exam Additional comments: both feet with dressings in place Assessment and Plan - Assessment and Plan (Free Text) Plan: Assessment systemic inflammatory response syndrome, R/O sepsis due to UTI associated with right sided nephrolithiasis possible right 3rd digit osteomyelitis R/O PAD history of severe sepsis with acute on chronic renal failure probably due to pyelonephritis with E. coli bacteremia history of C. diff. associated diarrhea Charcot foot, left history of left 2nd toe dry gangrene Chronic renal failure on hemodialysis HTN prostate CA HIV ([facility] [place] [facility] [place] 349 and virus load < 1.3 log) history of osteomyelitis of left first toe S/P amputation (2015) gout history of left foot ulcers Plan continue Merrem day 4; blood are negative, urine cx is showing contamination, would cx showing Corynebacterium and Coagulase negative staph which are probably contaminants continue antiretroviral therapy (lamivudine, abacavir on formulary but dolutegravir should be taken by patient from his home supply) follow up xray of the right foot; Podiatry following and will await MRI of the right foot - follow up further recommendations discussed with Dr. Adams
[2017-07-09] MEDS: Meropenem 500 MG in Sodium Chloride 0.9% 50 ML IVPB SCH ×2 (14:22→22:00)
[2017-07-09] MEDS: DOLUTEGRAVIR 50 MG PO SCH (14:44)
[2017-07-09] MEDS: Multivitamin Vitamin B Complex (Nephro-Vite) Tab PO SCH (14:53)
--- NOTE | 2017-07-09 15:21 | CP.PCM.PN ---
Subjective - Date & Time of Evaluation Date of Evaluation: 07/09/17 Time of Evaluation: 15:18 - Subjective Subjective: Follow up Nephrology Consultation: Assessment: stable Left hydroureteronephrosis with ? pyelonephritis bladder wall thickening, hx of prostate CA Hypertensive Chronic Kidney Disease (I12.9) ESRD on HD via permacath (TTS) Anemia (D64.9), HTN (I12.9) HIV on HAART, PVD foot ulcer Plan plan for HD today as ordered. nephrovite 1 tab/day aransep 125 mcg weekly for anemia. not on VDRA as PTH at goal. pt on weekly vit D lowered dose of binders Hypertension control with meds as ordered. Patient not on ACEI/ARB as BP controlled. he takes lopressor at home. not on norvasc anymore. consider evaluation ID following wound care in feets. podiatry following. plan for MRI foot Dose meds/antibiotics for ESRD status. Avoid fleets enema/magnesium based laxatives. Avoid nephrotoxins/NSAIDs/ iodinated contrast (unless needed emergently) Further work up/management as per primary team Thanks for allowing me to participate in care of your patient. Will follow patient with you. Please call if any Qs. Dr Yandel Arechiga Office: [phone] Chief Complaint; pain abdomen and fever reason for consult: ESRD HPI: Pt is a 71 y/o M with hx of HIV on HAART, PVD s/p angioplasty, hypertension (10-15 years), ESRD on HD (via permacath) TTS @ [facility], left foot toe amputations, prostate CA presented with complaints of pain in lower abdomen and vomitting 1 episode yesterday. pt was febrile in HD yesterday when blood cx x 2 done (NEGATIVE TILL DATE) and he was given 1 gram vanco and 120 mg genta with HD. pt was advised to go to hospital which he declined. Later , he came to [facility] with mentioned complaints. he feels better now ROS: Denies chest pain, palpitation, leg swelling. no shortness of breath c/o pain at ankle Physical Examination: General Appearance: Comfortable, in no acute respiratory distress, co-operative . Vitals reviewed and noted as below Head; Atraumatic, normocephalic ENT: no ulcers no thrush. Tongue is midline. Oropharynx: no rash or ulcers. EYES: Pupils are equal, round and reactive to light accommodation. Eye muscles and extraocular movement intact. Sclera is anicteric. Neck; supple no lymphadenopathy, no thyromegaly or bruit Lungs: Normal respiratory rate/effort. Breath sounds bilateral clear Heart: Normal rate. s1s2 normal. No rub or gallop. Extremities: no edema. No varicose veins Neurological: Patient is alert, awake and oriented to person, place and time. No focal deficit. Strength bilateral appropriate and equal Skin: Warm and dry. Normal turgor. No rash. Palpitation: Normal elasticity for age Abdomen: Abdomen is soft. Bowel sounds +. There is mild lower abdominal tenderness, no guarding/rigidity no organomegaly Psych: normal insight and normal affect/mood MSK: no joint tenderness or swelling. Digits and nails normal, has rt foot deformity noted with ulcer on medial malleolus. left foot toe amputations in past : kidney or bladder not palpable. Access: permacath Labs/imaging/EKG reviewed. Past medical history, past surgical history, family history, social history, allergy reviewed and noted as below Family hx: sister was on dialysis. Rest non-contributory Objective - Vital Signs/Intake and Output Vital Signs (last 24 hours): Temp Pulse Resp BP Pulse Ox 98 F 80 18 116/71 98 07/09/17 07:00 07/09/17 07:58 07/09/17 07:00 07/09/17 07:58 07/09/17 07:00 Intake and Output: 07/09/17 07/09/17 06:59 18:59 Intake Total 1020 240 Balance 1020 240 - Medications Medications: Current Medications Abacavir Sulfate (Ziagen) 300 mg PO BID [facility] Last Admin: 07/09/17 14:23 Dose: Not Given Acetaminophen (Tylenol 325mg Tab) 650 mg PO Q4H PRN PRN Reason: Fever >100.4 F Last Admin: 07/08/17 20:09 Dose: 650 mg Albuterol/Ipratropium (Duoneb 3 Mg/0.5 Mg (3 Ml) Ud) 3 ml IH Q2H PRN PRN Reason: Shortness of Breath Allopurinol (Zyloprim) 300 mg PO DAILY [facility] Last Admin: 07/09/17 14:53 Dose: 300 mg Collagenase (Santyl) 0 gm TOP DAILY [facility] Stop: 07/13/17 23:00 Last Admin: 07/08/17 09:26 Dose: 250 unit Darbepoetin Mario (Aranesp) 100 mcg IVP ONCE ONE Stop: 07/10/17 15:12 Darbepoetin Mario (Aranesp) 25 mcg IVP ONCE ONE Stop: 07/10/17 15:31 Ergocalciferol (Drisdol 50,000 Intl Units Cap) 1 cap PO Q7D [facility] Last Admin: 07/06/17 13:21 Dose: 1 cap Ferrous Sulfate (Feosol) 324 mg PO BID [facility] Last Admin: 07/09/17 14:21 Dose: Not Given Heparin Sodium (Porcine) (Heparin) 5,000 units SC Q12 [facility] PRN Reason: Protocol Last Admin: 07/09/17 14:25 Dose: Not Given Home Med (Home Med) 1 unit PO DAILY [facility] Last Admin: 07/09/17 14:44 Dose: Not Given Meropenem 500 mg/ Sodium (Chloride) 50 mls @ 100 mls/hr IVPB Q12 [facility] PRN Reason: Protocol Stop: 07/13/17 10:01 Last Admin: 07/09/17 14:22 Dose: Not Given Lamivudine (Epivir) 50 mg PO DAILY [facility] Last Admin: 07/08/17 10:11 Dose: 50 mg Meclizine HCl (Antivert) 25 mg PO Q8H PRN PRN Reason: Dizziness Metoprolol Tartrate (Lopressor) 25 mg PO BRKDIN [facility] Last Admin: 07/09/17 07:58 Dose: Not Given Ondansetron HCl (Zofran Inj) 4 mg IVP DAILY [facility] Last Admin: 07/08/17 09:27 Dose: 4 mg Pantoprazole Sodium (Protonix Ec Tab) 40 mg PO 0600 [facility] Last Admin: 07/09/17 05:36 Dose: 40 mg Sevelamer HCl (Renagel) 800 mg PO WM [facility] Last Admin: 07/09/17 14:53 Dose: 800 mg Tramadol HCl (Ultram) 50 mg PO Q8H PRN PRN Reason: Pain, moderate (4-7) Last Admin: 07/09/17 14:51 Dose: 50 mg Vitamin B Complex/Vit C/Folic Acid (Nephro-Christel) 1 tab PO DAILY [facility] Last Admin: 07/09/17 14:53 Dose: 1 tab - Labs Labs: 07/09/17 06:15 07/09/17 06:15
[2017-07-09] MEDS: Collagenase 250 Units/gm Ointment(30 gm) TOP SCH (16:00)
[2017-07-09] MEDS: LamiVUDine 10 mg/ml Syringe PO SCH (16:08)
--- NOTE | 2017-07-09 17:01 | CP.PCM.PN ---
<AmericoEdensharadbenson - Last Filed: 07/09/17 16:58> Subjective - Date & Time of Evaluation Date of Evaluation: 07/09/17 Time of Evaluation: 16:59 - Subjective Subjective: 71 y/o male seen and evaluated at bedside with attending Dr. Caldwell for open ulcerations to bilateral lower extremity. Patient is AAOx3 and in NAD. Patient denies of any acute overnight events. Patient states that he has pain in his feet bilaterally. Patient states that dressing changes are painful. Patient denies of any other pedal complains now. Patient denies of any recent F/N/V/C/ SOB/CP. Objective - Vital Signs/Intake and Output Vital Signs (last 24 hours): Temp Pulse Resp BP Pulse Ox 98 F 80 18 116/71 98 07/09/17 07:00 07/09/17 07:58 07/09/17 07:00 07/09/17 07:58 07/09/17 07:00 Intake and Output: 07/09/17 07/09/17 06:59 18:59 Intake Total 1020 240 Balance 1020 240 - Medications Medications: Current Medications Abacavir Sulfate (Ziagen) 300 mg PO BID [facility] Last Admin: 07/09/17 14:23 Dose: Not Given Acetaminophen (Tylenol 325mg Tab) 650 mg PO Q4H PRN PRN Reason: Fever >100.4 F Last Admin: 07/08/17 20:09 Dose: 650 mg Albuterol/Ipratropium (Duoneb 3 Mg/0.5 Mg (3 Ml) Ud) 3 ml IH Q2H PRN PRN Reason: Shortness of Breath Allopurinol (Zyloprim) 300 mg PO DAILY [facility] Last Admin: 07/09/17 14:53 Dose: 300 mg Collagenase (Santyl) 0 gm TOP DAILY [facility] Stop: 07/13/17 23:00 Last Admin: 07/08/17 09:26 Dose: 250 unit Darbepoetin Mario (Aranesp) 100 mcg IVP ONCE ONE Stop: 07/10/17 15:12 Darbepoetin Mario (Aranesp) 25 mcg IVP ONCE ONE Stop: 07/10/17 15:31 Ergocalciferol (Drisdol 50,000 Intl Units Cap) 1 cap PO Q7D [facility] Last Admin: 07/06/17 13:21 Dose: 1 cap Ferrous Sulfate (Feosol) 324 mg PO BID [facility] Last Admin: 07/09/17 14:21 Dose: Not Given Heparin Sodium (Porcine) (Heparin) 5,000 units SC Q12 [facility] PRN Reason: Protocol Last Admin: 07/09/17 14:25 Dose: Not Given Home Med (Home Med) 1 unit PO DAILY [facility] Last Admin: 07/09/17 14:44 Dose: Not Given Meropenem 500 mg/ Sodium (Chloride) 50 mls @ 100 mls/hr IVPB Q12 [facility] PRN Reason: Protocol Stop: 07/13/17 10:01 Last Admin: 07/09/17 14:22 Dose: Not Given Lamivudine (Epivir) 50 mg PO DAILY [facility] Last Admin: 07/09/17 16:08 Dose: 50 mg Meclizine HCl (Antivert) 25 mg PO Q8H PRN PRN Reason: Dizziness Metoprolol Tartrate (Lopressor) 25 mg PO BRKDIN [facility] Last Admin: 07/09/17 07:58 Dose: Not Given Ondansetron HCl (Zofran Inj) 4 mg IVP DAILY [facility] Last Admin: 07/09/17 03:06 Dose: Not Given Pantoprazole Sodium (Protonix Ec Tab) 40 mg PO 0600 [facility] Last Admin: 07/09/17 05:36 Dose: 40 mg Sevelamer HCl (Renagel) 800 mg PO WM [facility] Last Admin: 07/09/17 14:53 Dose: 800 mg Tramadol HCl (Ultram) 50 mg PO Q8H PRN PRN Reason: Pain, moderate (4-7) Last Admin: 07/09/17 14:51 Dose: 50 mg Vitamin B Complex/Vit C/Folic Acid (Nephro-Christel) 1 tab PO DAILY [facility] Last Admin: 07/09/17 14:53 Dose: 1 tab - Labs Labs: 07/09/17 06:15 07/09/17 06:15 - Constitutional Appears: Well, Non-toxic, No Acute Distress - Extremities Exam Extremities Exam: absent: Calf Tenderness, Joint Swelling Additional comments: Bilateral lower extremity examination: VASC: B/L non-palpable pedal pulses; foot is cool distally at the level of the distal metatarsals and toes; delayed capillary fill time is noted; dry gangrene is noted at the Left 2nd digit DERM: Right: Open ulceration noted to Medial aspect of right Medial malleolus measuring 3cm x 2cm x 0.2cm with hyperpigmented base. No malodor noted. No purulent drainage noted. No tracking noted. No probe to bone. Mild erythema to margins <0.5cm. No sign of acute infection is noted Another open ulceration noted to lateral aspect of right heel measuring 2cm x 0.5cm x 0.2cm with fibrotic base with hyperpigmented margins showing signs of necrosis, No malodor noted. No purulent drainage noted. No tracking noted. No probe to bone. Mild erythema to margins <0.5cm. No sign of acute infection is noted LEFT: Bone exposed to distal aspect of 3rd digit. An superficial ulceration noted to distal aspect of LEFT 3rd digit with granular base. No drainage is noted, No pus noted. Possible bone exposure noted to left 3rd digit NEURO: protective sensation is grossly diminished ORTHO: RIGHT medial aspect of the ankle and medial aspect of the rearfoot and midfoot are tender upon palpation; gross midfoot collapse is appreciated secondary to Charcot. LEFT 1st and 2nd digit amputation noted. - Neurological Exam Neurological Exam: Alert, Awake, Oriented x3 - Psychiatric Exam Psychiatric exam: Normal Affect, Normal Mood Assessment and Plan - Assessment and Plan (Free Text) Assessment: 71 yo male patient presenting with non-healing open ulcerations to bilateral feet, exposed bone to left 3rd digit Plan: Patient seen and evaluated at bedside with attending Dr. Caldwell Labs and vitals were reviewed; afebrile WBC @ 6.7 today Right foot cleansed with normal sterile saline Right foot dressed with betadine, DSD Left foot cleansed with normal sterile saline Left 3rd digit dressed with betadine, DSD Cultures show Corynebacterium and Coag Negative Staph Xray bilateral reveals no acute fracture or avidence of OM. left foot 3rd digit bone is exposed - OM is highly likely Arterial duplex pending Multipodus boot ordered for bilateral lower extremities; to be applied at all times while in bed Plan for surgical intervention after the vascular work-up Vascular consult - recommendations appreciated Podiatry will continue to follow while remains in house. <Suri Caldwell - Last Filed: 07/16/17 14:42> Objective - Vital Signs/Intake and Output Vital Signs (last 24 hours): Temp Pulse Resp BP Pulse Ox 98.1 F 65 20 161/85 H 98 07/16/17 07:30 07/16/17 10:16 07/16/17 07:30 07/16/17 10:16 07/16/17 07:30 - Medications Medications: Current Medications Abacavir Sulfate (Ziagen) 300 mg PO BID [facility] Last Admin: 07/16/17 10:16 Dose: 300 mg Acetaminophen (Tylenol 325mg Tab) 650 mg PO Q4H PRN PRN Reason: Fever >100.4 F Last Admin: 07/13/17 12:01 Dose: 650 mg Albuterol/Ipratropium (Duoneb 3 Mg/0.5 Mg (3 Ml) Ud) 3 ml IH Q2H PRN PRN Reason: Shortness of Breath Allopurinol (Zyloprim) 300 mg PO DAILY [facility] Last Admin: 07/16/17 10:16 Dose: 300 mg Ergocalciferol (Drisdol 50,000 Intl Units Cap) 1 cap PO Q7D [facility] Last Admin: 07/13/17 09:37 Dose: 1 cap Ferrous Sulfate (Feosol) 324 mg PO BID [facility] Last Admin: 07/16/17 10:15 Dose: 324 mg Heparin Sodium (Porcine) (Heparin) 5,000 units SC Q12 [facility] PRN Reason: Protocol Last Admin: 07/16/17 10:16 Dose: 5,000 units Heparin Sodium (Porcine) (Heparin) 2,200 units ICA ONCE [facility] Last Admin: 07/15/17 14:48 Dose: Not Given Home Med (Home Med) 1 unit PO DAILY [facility] Last Admin: 07/16/17 10:18 Dose: Not Given Lamivudine (Epivir) 50 mg PO DAILY [facility] Last Admin: 07/16/17 11:34 Dose: 50 mg Losartan Potassium (Cozaar) 100 mg PO DAILY [facility] Last Admin: 07/16/17 10:16 Dose: 100 mg Meclizine HCl (Antivert) 25 mg PO Q8H PRN PRN Reason: Dizziness Metoprolol Tartrate (Lopressor) 25 mg PO BRKDIN [facility] Last Admin: 07/16/17 08:23 Dose: 25 mg Ondansetron HCl (Zofran Inj) 4 mg IVP DAILY [facility] Last Admin: 07/16/17 10:26 Dose: Not Given Pantoprazole Sodium (Protonix Ec Tab) 40 mg PO 0600 [facility] Last Admin: 07/16/17 06:22 Dose: 40 mg Sevelamer HCl (Renagel) 800 mg PO WM [facility] Last Admin: 07/16/17 12:29 Dose: 800 mg Tramadol HCl (Ultram) 50 mg PO Q8H PRN PRN Reason: Pain, moderate (4-7) Last Admin: 07/16/17 00:54 Dose: 50 mg Vitamin B Complex/Vit C/Folic Acid (Nephro-Christel) 1 tab PO DAILY [facility] Last Admin: 07/16/17 10:15 Dose: 1 tab - Labs Labs: 07/16/17 06:30 07/16/17 06:30 Attending/Attestation - Attestation I have personally seen and examined this patient.: Yes I have fully participated in the care of the patient.: Yes I have reviewed all pertinent clinical information, including history, physical exam and plan: Yes
[2017-07-10] MEDS: Pantoprazole 40 mg EC Tab PO SCH (06:30)
[2017-07-10 07:18] LABS: BASO # 0.01 K/mm3 (0.0-2.0); BASO % 0.1 % (0.0-3.0); EOS # 0.3 (0.0-0.7); GRAN # 4.12 (1.4-6.5); GRAN % 46.4 % (50.0-68.0); HEMATOCRIT 31.4 % (42.0-52.0); LYMPH # 3.3 (1.2-3.4); LYMPH % 36.8 % (22.0-35.0); MEAN CELL VOLUME 99.4 fl (80.0-105.0); MEAN CORPUSCULAR HEMOGLOBIN 31.3 pg (25.0-35.0); MEAN CORPUSCULAR HGB CONC 31.5 g/dl (31.0-37.0); MEAN PLATELET VOLUME 10.4 fl (7.0-11.0); MONO # 1.2 (0.1-0.6); MONO % 13.7 % (1.0-6.0); RED CELL DISTRIBUTION WIDTH 15.2 % (11.5-14.5); WHITE BLOOD COUNT 8.9 10^3/ul (4.5-11.0)
[2017-07-10 07:40] LABS: ALB/GLOB RATIO 0.8 (1.1-1.8); BILIRUBIN,TOTAL 0.5 mg/dL (0.2-1.3); CALCIUM 8.5 mg/dL (8.4-10.5); PHOSPHOROUS 2.6 mg/dL (2.5-4.5); TOTAL PROTEIN 6.8 g/dL (5.8-8.3)
--- NOTE | 2017-07-10 11:02 | MRI ---
PROCEDURE: MRI of the left foot without contrast HISTORY: Rule out osteomyelitis, left digits COMPARISON: Plain films dated 07/07/2017 TECHNIQUE: MRI of the left foot was performed in multiple planes using multiple pulse sequences. FINDINGS: There is no marrow edema to suggest osteomyelitis. There is some subcutaneous edema over the dorsum of the foot. There has been previous amputation of the 1st and 2nd toes. There is collapse of the talus. Degenerative changes are seen at the talocalcaneal and talonavicular joints. IMPRESSION: Severe chronic degenerative changes. No marrow edema to suggest osteomyelitis.
[2017-07-10] MEDS: DOLUTEGRAVIR 50 MG PO SCH (11:22)
[2017-07-10] MEDS: Meropenem 500 MG in Sodium Chloride 0.9% 50 ML IVPB SCH ×2 (12:19→23:36)
[2017-07-10] MEDS: Multivitamin Vitamin B Complex (Nephro-Vite) Tab PO SCH (12:27)
--- NOTE | 2017-07-10 12:57 | CP.PCM.PN ---
Subjective - Date & Time of Evaluation Date of Evaluation: 07/10/17 Time of Evaluation: 07:30 - Subjective Subjective: Internal Medicine Progress Note for Dr. Adams/Dr. Sesay service Patient seen and examined at bedside. Patient resting comfortably in bed. No acute events reported overnight. Patient denies chest pain, shortness of breath , abdominal pain, nausea, vomiting, fever, chills. Patient with questioning regarding hospital stay. Patient educated on importance of further work up of infectious etiology of sepsis presentation including further imaging, testing and procedures indicated. Patient in understanding. Objective - Vital Signs/Intake and Output Vital Signs (last 24 hours): Temp Pulse Resp BP Pulse Ox 98 F 92 H 20 160/76 H 98 07/10/17 07:00 07/10/17 08:29 07/10/17 07:00 07/10/17 08:29 07/10/17 07:00 Intake and Output: 07/10/17 07/10/17 06:59 18:59 Intake Total 420 Output Total 50 Balance 370 - Medications Medications: Current Medications Abacavir Sulfate (Ziagen) 300 mg PO BID [facility] Last Admin: 07/10/17 11:22 Dose: Not Given Acetaminophen (Tylenol 325mg Tab) 650 mg PO Q4H PRN PRN Reason: Fever >100.4 F Last Admin: 07/08/17 20:09 Dose: 650 mg Albuterol/Ipratropium (Duoneb 3 Mg/0.5 Mg (3 Ml) Ud) 3 ml IH Q2H PRN PRN Reason: Shortness of Breath Allopurinol (Zyloprim) 300 mg PO DAILY [facility] Last Admin: 07/10/17 12:19 Dose: 300 mg Collagenase (Santyl) 0 gm TOP DAILY [facility] Stop: 07/13/17 23:00 Last Admin: 07/09/17 16:00 Dose: 1 unit Darbepoetin Mario (Aranesp) 100 mcg IVP ONCE ONE Stop: 07/10/17 15:12 Darbepoetin Mario (Aranesp) 25 mcg IVP ONCE ONE Stop: 07/10/17 15:31 Ergocalciferol (Drisdol 50,000 Intl Units Cap) 1 cap PO Q7D [facility] Last Admin: 07/06/17 13:21 Dose: 1 cap Ferrous Sulfate (Feosol) 324 mg PO BID [facility] Last Admin: 07/10/17 11:21 Dose: Not Given Heparin Sodium (Porcine) (Heparin) 5,000 units SC Q12 [facility] PRN Reason: Protocol Last Admin: 07/10/17 11:21 Dose: Not Given Home Med (Home Med) 1 unit PO DAILY [facility] Last Admin: 07/10/17 11:22 Dose: Not Given Meropenem 500 mg/ Sodium (Chloride) 50 mls @ 100 mls/hr IVPB Q12 [facility] PRN Reason: Protocol Stop: 07/13/17 10:01 Last Admin: 07/10/17 12:19 Dose: 100 mls/hr Lamivudine (Epivir) 50 mg PO DAILY [facility] Last Admin: 07/09/17 16:08 Dose: 50 mg Meclizine HCl (Antivert) 25 mg PO Q8H PRN PRN Reason: Dizziness Metoprolol Tartrate (Lopressor) 25 mg PO BRKDIN [facility] Last Admin: 07/10/17 08:29 Dose: 25 mg Ondansetron HCl (Zofran Inj) 4 mg IVP DAILY [facility] Last Admin: 07/10/17 12:36 Dose: Not Given Pantoprazole Sodium (Protonix Ec Tab) 40 mg PO 0600 [facility] Last Admin: 07/10/17 06:30 Dose: 40 mg Sevelamer HCl (Renagel) 800 mg PO WM [facility] Last Admin: 07/10/17 12:19 Dose: 800 mg Tramadol HCl (Ultram) 50 mg PO Q8H PRN PRN Reason: Pain, moderate (4-7) Last Admin: 07/10/17 00:04 Dose: 50 mg Vitamin B Complex/Vit C/Folic Acid (Nephro-Christel) 1 tab PO DAILY [facility] Last Admin: 07/10/17 12:27 Dose: 1 tab - Labs Labs: 07/10/17 06:45 07/10/17 06:45 - Constitutional Appears: No Acute Distress - Head Exam Head Exam: ATRAUMATIC, NORMAL INSPECTION, NORMOCEPHALIC - Eye Exam Eye Exam: EOMI, PERRL - ENT Exam ENT Exam: Mucous Membranes Moist - Neck Exam Neck Exam: Full ROM - Respiratory Exam Respiratory Exam: Clear to Ausculation Bilateral. absent: Rales, Rhonchi, Wheezes - Cardiovascular Exam Cardiovascular Exam: REGULAR RHYTHM, +S1, +S2 - GI/Abdominal Exam GI & Abdominal Exam: Soft, Normal Bowel Sounds. absent: Tenderness - Extremities Exam Extremities Exam: absent: Pedal Edema Additional comments: right foot with surgical bandage covering majority of foot, c/d/i Left foot with 1st and 2nd digit amputation and exposed wound on 3rd digit - Back Exam Back Exam: NORMAL INSPECTION. absent: CVA tenderness (L), CVA tenderness (R) - Neurological Exam Neurological Exam: Alert, Awake, Normal Gait, Oriented x3 - Psychiatric Exam Psychiatric exam: Normal Affect, Normal Mood - Skin Skin Exam: Dry, Intact, Warm. absent: Rash Assessment and Plan (1) Cellulitis of ankle Status: Acute (2) Pyelonephritis Status: Acute (3) ESRD (end stage renal disease) on dialysis Status: Chronic (4) HIV (human immunodeficiency virus infection) Status: Chronic - Assessment and Plan (Free Text) Assessment: Patient is a PMH of HTN, prostate CA, HIV (last CD4 count on record 03/2016 is 349), history of osteomyelitis of left first toe S/P amputation (2015), gout, ESRD who presented with abdominal pain and is currently admitted with sepsis due to uti versus wound infection. Plan: 1. Sepsis with UTI versus wound infection the possible source. - Leukocytosis resolved, afebrile - CT also revealed Moderate left-sided hydroureteronephrosis extending to the left ureterovesicular junction without an obstructing stone visualized. - Blood culture negative to date - Urine culture with reported contamination - ID following, appreciate recs - IV Merrem Day 5 - Urology consultation, f/u recs 2. Heal ulcers bilateral suspicion for osteomyelitis and PVD - Xray Right ankle: Suggestive of neuropathic arthropathy with talar collapse and talonavicular extensive arthropathy - Xray Left ankle: No acute fracture. 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 No plain evidence of osteomyelitis - Podiatry consulted, appreciate recs - wound culture of kristine; b/;l with growth of Cornybacterium species and coag neg staphylococcus - No sensitivities indicated - MRI of left foot showing no evidence of OM 3. Bladder wall thickening with air fluid level on CT - hx of prostate ca - urology consulted - curbside with urology recommending PSA and further work up with possible cystoretrograde procedure indicated 4. HIV - ID consulted and following - Ziagen, epivir, Dolutegravir as per ID 5. ESRD- Renal following for HD - HD today - Continue with renagel 6.Hx of gout - Allopurinol 7. 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 COPD - Duoneb PRN GI PPX: Protonix DVT PPX: Heparin Patient seen, examined and case discussed with Dr. Sesay
--- NOTE | 2017-07-10 13:06 | PN ---
DATE: 07/10/2017 SUBJECTIVE: The patient is in bed, in no acute, was seen this morning in 569, bed 2. PHYSICAL EXAMINATION: VITAL SIGNS: Temperature is 98, blood pressure is 160/70, respiratory rate is 20, and heart rate of 95. HEENT: Unremarkable. NECK: Supple. LUNGS: Have decreased breath sounds. HEART: Normal S1 and S2. ABDOMEN: Soft and nontender. LABORATORY DATA: Reveals the patient has white count of 8.9 and hemoglobin of 9. Chemistries are noted, BUN of 20 and creatinine of 4.4. Urinalysis is noted, and microbiology reveals the patient's blood cultures are no growth. Urine culture has multiple species probable contamination and the patient's wound culture from the foot shows coag-negative Staph and Corynebacterium. ASSESSMENT AND PLAN: A 71-year-old male with SIRS (systemic inflammatory response syndrome), rule out sepsis secondary to urinary tract infection and right-sided nephrolithiasis and possible right third digit osteomyelitis and the patient with history of severe sepsis, renal failure and pyelonephritis, Escherichia coli bacteriemia, pseudomembranous colitis, left foot Charcot foot, renal failure on hemodialysis, prostate cancer, and hypertension, currently on meropenem day #5. The patient with positive human immunodeficiency virus, on his HIV medications lamivudine, Abacavir, and dolutegravir. We will follow closely with you. Cesar Flowers MD
[2017-07-10] MEDS: LamiVUDine 10 mg/ml Syringe PO SCH (14:08)
[2017-07-10] MEDS: Collagenase 250 Units/gm Ointment(30 gm) TOP SCH (14:08)
--- NOTE | 2017-07-10 14:50 | CP.PCM.PN ---
<Mirta Driscoll - Last Filed: 07/10/17 14:37> Subjective - Date & Time of Evaluation Date of Evaluation: 07/10/17 Time of Evaluation: 14:37 - Subjective Subjective: 71 y/o male seen and evaluated at bedside with attending Dr. Caldwell for open ulcerations to bilateral lower extremity. Patient also has his sister accompanying today. Patient is AAOx3 and in NAD. Patient denies of any acute overnight events. Patient states that he has pain in his feet bilaterally. Patient states that dressing changes are painful. Patient denies of any other pedal complains now. Patient denies of any recent F/N/V/C/SOB/CP. Objective - Vital Signs/Intake and Output Vital Signs (last 24 hours): Temp Pulse Resp BP Pulse Ox 98 F 92 H 20 160/76 H 98 07/10/17 07:00 07/10/17 08:29 07/10/17 07:00 07/10/17 08:29 07/10/17 07:00 Intake and Output: 07/10/17 07/10/17 06:59 18:59 Intake Total 420 Output Total 50 Balance 370 - Medications Medications: Current Medications Abacavir Sulfate (Ziagen) 300 mg PO BID [facility] Last Admin: 07/10/17 11:22 Dose: Not Given Acetaminophen (Tylenol 325mg Tab) 650 mg PO Q4H PRN PRN Reason: Fever >100.4 F Last Admin: 07/08/17 20:09 Dose: 650 mg Albuterol/Ipratropium (Duoneb 3 Mg/0.5 Mg (3 Ml) Ud) 3 ml IH Q2H PRN PRN Reason: Shortness of Breath Allopurinol (Zyloprim) 300 mg PO DAILY [facility] Last Admin: 07/10/17 12:19 Dose: 300 mg Collagenase (Santyl) 0 gm TOP DAILY [facility] Stop: 07/13/17 23:00 Last Admin: 07/10/17 14:08 Dose: 1 unit Darbepoetin Mario (Aranesp) 100 mcg IVP ONCE ONE Stop: 07/10/17 15:12 Darbepoetin Mario (Aranesp) 25 mcg IVP ONCE ONE Stop: 07/10/17 15:31 Ergocalciferol (Drisdol 50,000 Intl Units Cap) 1 cap PO Q7D [facility] Last Admin: 07/06/17 13:21 Dose: 1 cap Ferrous Sulfate (Feosol) 324 mg PO BID [facility] Last Admin: 07/10/17 11:21 Dose: Not Given Heparin Sodium (Porcine) (Heparin) 5,000 units SC Q12 [facility] PRN Reason: Protocol Last Admin: 07/10/17 11:21 Dose: Not Given Home Med (Home Med) 1 unit PO DAILY [facility] Last Admin: 07/10/17 11:22 Dose: Not Given Meropenem 500 mg/ Sodium (Chloride) 50 mls @ 100 mls/hr IVPB Q12 [facility] PRN Reason: Protocol Stop: 07/13/17 10:01 Last Admin: 07/10/17 12:19 Dose: 100 mls/hr Lamivudine (Epivir) 50 mg PO DAILY [facility] Last Admin: 07/10/17 14:08 Dose: 50 mg Meclizine HCl (Antivert) 25 mg PO Q8H PRN PRN Reason: Dizziness Metoprolol Tartrate (Lopressor) 25 mg PO BRKDIN [facility] Last Admin: 07/10/17 08:29 Dose: 25 mg Ondansetron HCl (Zofran Inj) 4 mg IVP DAILY [facility] Last Admin: 07/10/17 12:36 Dose: Not Given Pantoprazole Sodium (Protonix Ec Tab) 40 mg PO 0600 [facility] Last Admin: 07/10/17 06:30 Dose: 40 mg Sevelamer HCl (Renagel) 800 mg PO WM [facility] Last Admin: 07/10/17 12:19 Dose: 800 mg Tramadol HCl (Ultram) 50 mg PO Q8H PRN PRN Reason: Pain, moderate (4-7) Last Admin: 07/10/17 00:04 Dose: 50 mg Vitamin B Complex/Vit C/Folic Acid (Nephro-Christel) 1 tab PO DAILY [facility] Last Admin: 07/10/17 12:27 Dose: 1 tab - Labs Labs: 07/10/17 06:45 07/10/17 06:45 - Constitutional Appears: Well, Non-toxic, No Acute Distress - Extremities Exam Additional comments: Bilateral lower extremity examination: VASC: B/L non-palpable pedal pulses; foot is cool distally at the level of the distal metatarsals and toes; delayed capillary fill time is noted; dry gangrene is noted at the Left 2nd digit DERM: Right: Open ulceration noted to Medial aspect of right Medial malleolus measuring 3cm x 2cm x 0.2cm with hyperpigmented base. No malodor noted. No purulent drainage noted. No tracking noted. No probe to bone. Mild erythema to margins <0.5cm. No sign of acute infection is noted Another open ulceration noted to lateral aspect of right heel measuring 2cm x 0.5cm x 0.2cm with fibrotic base with hyperpigmented margins showing signs of necrosis, No malodor noted. No purulent drainage noted. No tracking noted. No probe to bone. Mild erythema to margins <0.5cm. No sign of acute infection is noted LEFT: Bone exposed to distal aspect of 3rd digit. An superficial ulceration noted to distal aspect of LEFT 3rd digit with granular base. No drainage is noted, No pus noted. Possible bone exposure noted to left 3rd digit NEURO: protective sensation is grossly diminished ORTHO: RIGHT medial aspect of the ankle and medial aspect of the rearfoot and midfoot are tender upon palpation; gross midfoot collapse is appreciated secondary to Charcot. LEFT 1st and 2nd digit amputation noted. - Neurological Exam Neurological Exam: Alert, Awake, Oriented x3 - Psychiatric Exam Psychiatric exam: Normal Affect, Normal Mood - Skin Skin Exam: Dry Assessment and Plan - Assessment and Plan (Free Text) Assessment: 71 yo male patient presenting with non-healing open ulcerations to bilateral feet, exposed bone to left 3rd digit Plan: Patient seen and evaluated at bedside with attending Dr. Caldwell Labs and vitals were reviewed; afebrile WBC @ 8.9 today Right foot cleansed with normal sterile saline Right foot dressed with betadine, DSD Left foot cleansed with normal sterile saline Left 3rd digit dressed with betadine, DSD Cultures show Corynebacterium and Coag Negative Staph Xray bilateral reveals no acute fracture or evidence of OM. left foot 3rd digit bone is exposed - OM is highly likely Arterial duplex pending Multipodus boot ordered for bilateral lower extremities; to be applied at all times while in bed Vascular consult - recommendations appreciated -Plan for surgical intervention after the vascular work-up Podiatry will continue to follow while remains in house. <Suri Caldwell - Last Filed: 07/16/17 14:43> Objective - Vital Signs/Intake and Output Vital Signs (last 24 hours): Temp Pulse Resp BP Pulse Ox 98.1 F 65 20 161/85 H 98 07/16/17 07:30 07/16/17 10:16 07/16/17 07:30 07/16/17 10:16 07/16/17 07:30 - Medications Medications: Current Medications Abacavir Sulfate (Ziagen) 300 mg PO BID [facility] Last Admin: 07/16/17 10:16 Dose: 300 mg Acetaminophen (Tylenol 325mg Tab) 650 mg PO Q4H PRN PRN Reason: Fever >100.4 F Last Admin: 07/13/17 12:01 Dose: 650 mg Albuterol/Ipratropium (Duoneb 3 Mg/0.5 Mg (3 Ml) Ud) 3 ml IH Q2H PRN PRN Reason: Shortness of Breath Allopurinol (Zyloprim) 300 mg PO DAILY [facility] Last Admin: 07/16/17 10:16 Dose: 300 mg Ergocalciferol (Drisdol 50,000 Intl Units Cap) 1 cap PO Q7D [facility] Last Admin: 07/13/17 09:37 Dose: 1 cap Ferrous Sulfate (Feosol) 324 mg PO BID [facility] Last Admin: 07/16/17 10:15 Dose: 324 mg Heparin Sodium (Porcine) (Heparin) 5,000 units SC Q12 [facility] PRN Reason: Protocol Last Admin: 07/16/17 10:16 Dose: 5,000 units Heparin Sodium (Porcine) (Heparin) 2,200 units ICA ONCE [facility] Last Admin: 07/15/17 14:48 Dose: Not Given Home Med (Home Med) 1 unit PO DAILY [facility] Last Admin: 07/16/17 10:18 Dose: Not Given Lamivudine (Epivir) 50 mg PO DAILY [facility] Last Admin: 07/16/17 11:34 Dose: 50 mg Losartan Potassium (Cozaar) 100 mg PO DAILY [facility] Last Admin: 07/16/17 10:16 Dose: 100 mg Meclizine HCl (Antivert) 25 mg PO Q8H PRN PRN Reason: Dizziness Metoprolol Tartrate (Lopressor) 25 mg PO BRKDIN [facility] Last Admin: 07/16/17 08:23 Dose: 25 mg Ondansetron HCl (Zofran Inj) 4 mg IVP DAILY [facility] Last Admin: 07/16/17 10:26 Dose: Not Given Pantoprazole Sodium (Protonix Ec Tab) 40 mg PO 0600 [facility] Last Admin: 07/16/17 06:22 Dose: 40 mg Sevelamer HCl (Renagel) 800 mg PO WM [facility] Last Admin: 07/16/17 12:29 Dose: 800 mg Tramadol HCl (Ultram) 50 mg PO Q8H PRN PRN Reason: Pain, moderate (4-7) Last Admin: 07/16/17 00:54 Dose: 50 mg Vitamin B Complex/Vit C/Folic Acid (Nephro-Christel) 1 tab PO DAILY [facility] Last Admin: 07/16/17 10:15 Dose: 1 tab - Labs Labs: 07/16/17 06:30 07/16/17 06:30 Attending/Attestation - Attestation I have personally seen and examined this patient.: Yes I have fully participated in the care of the patient.: Yes I have reviewed all pertinent clinical information, including history, physical exam and plan: Yes
[2017-07-10] MEDS ORDERED: Darbepoetin Alfa 100 mcg/ml Inj IVP ONE (15:11)
[2017-07-10] MEDS ORDERED: Darbepoetin Alfa 60 mcg/ml Inj IVP ONE (15:30)
--- NOTE | 2017-07-10 15:42 | US ---
PROCEDURE: Lower extremity MARLENI exam HISTORY: Peripheral vascular disease with pain and ulceration. Previous left toe amputation PHYSICIAN(S): Emmanuel Good MD. FINDINGS: The resting MARLENI's are moderately abnormal: Right, 0.51 and left, 0.6 The high thigh pressures and waveforms are relatively normal. The right calf PVR waveform is relatively normal and augments. The left calf PVR waveform is moderately blunted. This is consistent with left SFA occlusive disease. There appear to be significant gradients across both knees. This is more pronounced on the right. This is consistent with bilateral distal SFA, popliteal, and/or tibial disease. The ankle and metatarsal waveforms are severely blunted IMPRESSION: 1. Moderately abnormal ABIs at rest. 2. Left SFA occlusive disease. 3. Bilateral distal SFA, popliteal, and/or tibial disease. .
--- NOTE | 2017-07-10 18:08 | CP.PCM.PN ---
Subjective - Date & Time of Evaluation Date of Evaluation: 07/10/17 Time of Evaluation: 18:07 - Subjective Subjective: renal follow up note no events overnight PE:sitting in bed vss nad ao times 3 skin normal op moist s1s2 present no resp distress abd soft edema trace right foot in dressing left foot open wound multiple toe amputations cooperative PLAN: ESRD/HTN/HIV/osteomyelitis of foot/left hydronephrosos/pyelonephritis HD TTS as opt but will do mwf here due to thansgiving anemia RESHMA with hd odc reviewed monitor phos levels Urology consulted for osbtructive uropathy ID & Podiatry On board for infection in the foot Objective - Vital Signs/Intake and Output Vital Signs (last 24 hours): Temp Pulse Resp BP Pulse Ox 98.9 F 83 18 155/75 H 97 07/10/17 16:27 07/10/17 17:09 07/10/17 16:27 07/10/17 17:09 07/10/17 16:27 Intake and Output: 07/10/17 07/10/17 06:59 18:59 Intake Total 420 560 Output Total 50 Balance 370 560 - Medications Medications: Current Medications Abacavir Sulfate (Ziagen) 300 mg PO BID [facility] Last Admin: 07/10/17 17:11 Dose: 300 mg Acetaminophen (Tylenol 325mg Tab) 650 mg PO Q4H PRN PRN Reason: Fever >100.4 F Last Admin: 07/08/17 20:09 Dose: 650 mg Albuterol/Ipratropium (Duoneb 3 Mg/0.5 Mg (3 Ml) Ud) 3 ml IH Q2H PRN PRN Reason: Shortness of Breath Allopurinol (Zyloprim) 300 mg PO DAILY [facility] Last Admin: 07/10/17 12:19 Dose: 300 mg Collagenase (Santyl) 0 gm TOP DAILY [facility] Stop: 07/13/17 23:00 Last Admin: 07/10/17 14:08 Dose: 1 unit Ergocalciferol (Drisdol 50,000 Intl Units Cap) 1 cap PO Q7D [facility] Last Admin: 07/06/17 13:21 Dose: 1 cap Ferrous Sulfate (Feosol) 324 mg PO BID [facility] Last Admin: 07/10/17 17:10 Dose: 324 mg Heparin Sodium (Porcine) (Heparin) 5,000 units SC Q12 [facility] PRN Reason: Protocol Last Admin: 07/10/17 11:21 Dose: Not Given Home Med (Home Med) 1 unit PO DAILY [facility] Last Admin: 07/10/17 11:22 Dose: Not Given Meropenem 500 mg/ Sodium (Chloride) 50 mls @ 100 mls/hr IVPB Q12 [facility] PRN Reason: Protocol Stop: 07/13/17 10:01 Last Admin: 07/10/17 12:19 Dose: 100 mls/hr Lamivudine (Epivir) 50 mg PO DAILY [facility] Last Admin: 07/10/17 14:08 Dose: 50 mg Meclizine HCl (Antivert) 25 mg PO Q8H PRN PRN Reason: Dizziness Metoprolol Tartrate (Lopressor) 25 mg PO BRKDIN [facility] Last Admin: 07/10/17 17:09 Dose: 25 mg Ondansetron HCl (Zofran Inj) 4 mg IVP DAILY [facility] Last Admin: 07/10/17 12:36 Dose: Not Given Pantoprazole Sodium (Protonix Ec Tab) 40 mg PO 0600 [facility] Last Admin: 07/10/17 06:30 Dose: 40 mg Sevelamer HCl (Renagel) 800 mg PO WM [facility] Last Admin: 07/10/17 17:09 Dose: 800 mg Tramadol HCl (Ultram) 50 mg PO Q8H PRN PRN Reason: Pain, moderate (4-7) Last Admin: 07/10/17 00:04 Dose: 50 mg Vitamin B Complex/Vit C/Folic Acid (Nephro-Christel) 1 tab PO DAILY [facility] Last Admin: 07/10/17 12:27 Dose: 1 tab - Labs Labs: 07/10/17 06:45 07/10/17 06:45
[2017-07-11] MEDS: Pantoprazole 40 mg EC Tab PO SCH (05:57)
[2017-07-11] MEDS ORDERED: Darbepoetin Alfa 25 mcg/ml Inj IVP ONE (10:00)
[2017-07-11 10:22] LABS: BASO # 0.01 K/mm3 (0.0-2.0); BASO % 0.1 % (0.0-3.0); EOS # 0.5 (0.0-0.7); EOS % 5.9 % (1.5-5.0); GRAN # 3.81 (1.4-6.5); GRAN % 47.8 % (50.0-68.0); HEMATOCRIT 30.3 % (42.0-52.0); LYMPH # 2.7 (1.2-3.4); LYMPH % 33.5 % (22.0-35.0); MEAN CELL VOLUME 98.4 fl (80.0-105.0); MEAN CORPUSCULAR HEMOGLOBIN 30.8 pg (25.0-35.0); MEAN CORPUSCULAR HGB CONC 31.4 g/dl (31.0-37.0); MEAN PLATELET VOLUME 10.4 fl (7.0-11.0); MONO % 12.7 % (1.0-6.0); RED CELL DISTRIBUTION WIDTH 15.4 % (11.5-14.5)
[2017-07-11 10:36] LABS: ALB/GLOB RATIO 0.8 (1.1-1.8); BILIRUBIN,TOTAL 0.4 mg/dL (0.2-1.3); CALCIUM 8.3 mg/dL (8.4-10.5); POTASSIUM 3.8 mmol/L (3.6-5.0); TOTAL PROTEIN 6.5 g/dL (5.8-8.3)
--- NOTE | 2017-07-11 10:45 | CP.PCM.PN ---
Subjective - Date & Time of Evaluation Date of Evaluation: 07/11/17 Time of Evaluation: 06:45 - Subjective Subjective: Internal Medicine Progress Note - Dr. Adams/Dr. Sesay service Patient seen and evaluated at bedside. Resting comfortably in bed. No acute events reported overnight. Patient will be made NPO after breakfast for potential cystoscopy. Patient complains of continued heel pain bilateral with right sided predominate. Patient denies chest pain, shortness of breath, abdominal pain, constipation, diarrhea, nausea, vomiting, fever, chills. Objective - Vital Signs/Intake and Output Vital Signs (last 24 hours): Temp Pulse Resp BP Pulse Ox 99.1 F 80 20 155/45 H 98 07/11/17 07:30 07/11/17 08:42 07/11/17 07:30 07/11/17 08:42 07/11/17 07:30 Intake and Output: 07/11/17 07/11/17 06:59 18:59 Intake Total 420 Output Total 100 Balance 320 - Medications Medications: Current Medications Abacavir Sulfate (Ziagen) 300 mg PO BID [facility] Last Admin: 07/10/17 17:11 Dose: 300 mg Acetaminophen (Tylenol 325mg Tab) 650 mg PO Q4H PRN PRN Reason: Fever >100.4 F Last Admin: 07/08/17 20:09 Dose: 650 mg Albuterol/Ipratropium (Duoneb 3 Mg/0.5 Mg (3 Ml) Ud) 3 ml IH Q2H PRN PRN Reason: Shortness of Breath Allopurinol (Zyloprim) 300 mg PO DAILY [facility] Last Admin: 07/10/17 12:19 Dose: 300 mg Collagenase (Santyl) 0 gm TOP DAILY [facility] Stop: 07/13/17 23:00 Last Admin: 07/10/17 14:08 Dose: 1 unit Ergocalciferol (Drisdol 50,000 Intl Units Cap) 1 cap PO Q7D [facility] Last Admin: 07/06/17 13:21 Dose: 1 cap Ferrous Sulfate (Feosol) 324 mg PO BID [facility] Last Admin: 07/10/17 17:10 Dose: 324 mg Heparin Sodium (Porcine) (Heparin) 5,000 units SC Q12 [facility] PRN Reason: Protocol Last Admin: 07/10/17 23:37 Dose: 5,000 units Home Med (Home Med) 1 unit PO DAILY [facility] Last Admin: 07/10/17 11:22 Dose: Not Given Lamivudine (Epivir) 50 mg PO DAILY [facility] Last Admin: 07/10/17 14:08 Dose: 50 mg Meclizine HCl (Antivert) 25 mg PO Q8H PRN PRN Reason: Dizziness Metoprolol Tartrate (Lopressor) 25 mg PO BRKDIN [facility] Last Admin: 07/11/17 08:42 Dose: 25 mg Ondansetron HCl (Zofran Inj) 4 mg IVP DAILY [facility] Last Admin: 07/10/17 12:36 Dose: Not Given Pantoprazole Sodium (Protonix Ec Tab) 40 mg PO 0600 [facility] Last Admin: 07/11/17 05:57 Dose: 40 mg Sevelamer HCl (Renagel) 800 mg PO WM [facility] Last Admin: 07/11/17 08:42 Dose: 800 mg Tramadol HCl (Ultram) 50 mg PO Q8H PRN PRN Reason: Pain, moderate (4-7) Last Admin: 07/10/17 00:04 Dose: 50 mg Vitamin B Complex/Vit C/Folic Acid (Nephro-Christel) 1 tab PO DAILY [facility] Last Admin: 07/10/17 12:27 Dose: 1 tab - Labs Labs: 07/11/17 10:18 07/11/17 10:18 - Constitutional Appears: Non-toxic, No Acute Distress - Head Exam Head Exam: ATRAUMATIC, NORMAL INSPECTION, NORMOCEPHALIC - Eye Exam Eye Exam: EOMI, PERRL - ENT Exam ENT Exam: Mucous Membranes Moist - Neck Exam Neck Exam: Full ROM - Respiratory Exam Respiratory Exam: Clear to Ausculation Bilateral, NORMAL BREATHING PATTERN. absent: Rales, Rhonchi, Wheezes - Cardiovascular Exam Cardiovascular Exam: REGULAR RHYTHM, +S1, +S2 - GI/Abdominal Exam GI & Abdominal Exam: Soft, Normal Bowel Sounds. absent: Firm, Guarding, Rigid, Tenderness - Extremities Exam Extremities Exam: absent: Joint Swelling, Pedal Edema Additional comments: Rigth foot with surgical bandage c/d/i Left foot with 1st and 2nd digit s/p amputation, - Neurological Exam Neurological Exam: Alert, Awake Additional comments: Poor propriaoception/sensation left lower extremity digits and dorsum of foot Motor and sensory intact - Psychiatric Exam Psychiatric exam: Normal Affect, Normal Mood - Skin Skin Exam: Dry. absent: Rash Additional comments: Right: Open ulceration noted to Medial aspect of right Medial malleolus measuring 3cm x 2cm x 0.2cm with hyperpigmented base. absent foul odor No purulent drainage noted. No tracking noted Mild erythema to margins <0.5cm. Ulceration of lateral aspect of right heel measuring 2cm x 0.5cm x 0.2cm with fibrotic base with hyperpigmented margins showing signs of necrosis, No malodor noted. No purulent drainage noted. No tracking noted. Mild erythema to margins < 0.5cm. No sign of acute infection is noted LEFT: Bone exposed to distal aspect of 3rd digit. An superficial ulceration noted to distal aspect of LEFT 3rd digit with granular base. No drainage is noted, No pus noted. Possible bone exposure noted to left 3rd digit Assessment and Plan (1) Cellulitis of ankle Status: Acute (2) Pyelonephritis Status: Acute (3) ESRD (end stage renal disease) on dialysis Status: Chronic (4) HIV (human immunodeficiency virus infection) Status: Chronic - Assessment and Plan (Free Text) Assessment: Patient is a PMH of HTN, prostate CA, HIV (last CD4 count on record 03/2016 is 349), history of osteomyelitis of left first toe S/P amputation (2015), gout, ESRD who presented with abdominal pain and is currently admitted with sepsis due to uti versus wound infection. Plan: 1.Sepsis secondary to UTI and/or wound infection as possible source. - Leukocytosis resolved, afebrile - CT also revealed Moderate left-sided hydroureteronephrosis extending to the left ureterovesicular junction without an obstructing stone visualized. - Blood culture negative to date - Urine culture with reported contamination - ID following, appreciate recs - IV Merrem Day 6 - Urology consultation, f/u recs - Recommending outpatient care at this time - Continue current management for UTI/infection source 2. Heal ulcers bilateral suspicion for osteomyelitis and PVD - Xray Right ankle: Suggestive of neuropathic arthropathy with talar collapse and talonavicular extensive arthropathy - Xray Left ankle: No acute fracture. 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 No plain evidence of osteomyelitis - Podiatry consulted, appreciate recs - Vascular consult - Pending vascular appears to be planning for surgical intervention - wound culture of kristine; b/;l with growth of Cornybacterium species and coag neg staphylococcus - No sensitivities indicated - MRI of left foot showing no evidence of OM - f/u vascular recommendations 3. Bladder wall thickening with air fluid level on CT - hx of prostate ca, workup intervention unkown at this time, have requested records - urology consulted - no plan for cystoscopy at this time, plan for outpatient follow up - PSA nml 4. HIV - ID consulted and following - Ziagen, epivir, Dolutegravir as per ID 5. ESRD- Renal following for HD - HD today - Continue with renagel 6.Hx of gout - Allopurinol 7. 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 COPD - Duoneb PRN GI PPX: Protonix DVT PPX: Heparin Patient seen, examined and case discussed with Dr. Adams
--- NOTE | 2017-07-11 12:19 | CP.PCM.CON ---
History of Present Illness - History of Present Illness History of Present Illness: consult note dictated Past Patient History - Infectious Disease Hx of Infectious Diseases: None - Tetanus Immunizations Tetanus Immunization: Up to Date - Past Medical History & Family History Past Medical History?: Yes - Past Social History Smoking Status: Never Smoked - CARDIAC Hx Cardiac Disorders: Yes Hx Hypertension: Yes - PULMONARY Hx Respiratory Disorders: No - NEUROLOGICAL Hx Neurological Disorder: No - HEENT Hx HEENT Problems: No - RENAL Hx Renal Failure: Yes - ENDOCRINE/METABOLIC Hx Diabetes Mellitus Type 1: No Hx Diabetes Mellitus Type 2: No - HEMATOLOGICAL/ONCOLOGICAL Hx Blood Transfusions: No - INTEGUMENTARY Hx Dermatological Problems: Yes (CELLULITIS OF L ANKLE 8-16.AMPUTATED 1ST TOE LEFT FOOT.,I/D RT HAND ABCES) Other/Comment: Ulcer of second toe BL - MUSCULOSKELETAL/RHEUMATOLOGICAL Hx Musculoskeletal Disorders: Yes - GASTROINTESTINAL Hx Gastrointestinal Disorders: No - GENITOURINARY/GYNECOLOGICAL Hx Genitourinary Disorders: Yes Hx Prostate Cancer: Yes - PSYCHIATRIC Hx Psychophysiologic Disorder: No Hx Substance Use: No - SURGICAL HISTORY Hx Amputation: Yes (Left first toe) Other/Comment: prostatectomy, incision and drainage of right hand abscess - ANESTHESIA Hx Anesthesia Reactions: No Hx Malignant Hyperthermia: No Meds Allergies/Adverse Reactions: Allergies Allergy/AdvReac Type Severity Reaction Status Date / Time No Known Allergies Allergy Verified 04/29/17 17:01 - Medications Medications: Current Medications Abacavir Sulfate (Ziagen) 300 mg PO BID [facility] Last Admin: 07/10/17 17:11 Dose: 300 mg Acetaminophen (Tylenol 325mg Tab) 650 mg PO Q4H PRN PRN Reason: Fever >100.4 F Last Admin: 07/08/17 20:09 Dose: 650 mg Albuterol/Ipratropium (Duoneb 3 Mg/0.5 Mg (3 Ml) Ud) 3 ml IH Q2H PRN PRN Reason: Shortness of Breath Allopurinol (Zyloprim) 300 mg PO DAILY [facility] Last Admin: 07/10/17 12:19 Dose: 300 mg Collagenase (Santyl) 0 gm TOP DAILY [facility] Stop: 07/13/17 23:00 Last Admin: 07/10/17 14:08 Dose: 1 unit Ergocalciferol (Drisdol 50,000 Intl Units Cap) 1 cap PO Q7D [facility] Last Admin: 07/06/17 13:21 Dose: 1 cap Ferrous Sulfate (Feosol) 324 mg PO BID [facility] Last Admin: 07/10/17 17:10 Dose: 324 mg Heparin Sodium (Porcine) (Heparin) 5,000 units SC Q12 [facility] PRN Reason: Protocol Last Admin: 07/10/17 23:37 Dose: 5,000 units Heparin Sodium (Porcine) (Heparin) 2,200 units ICA ONCE ONE Stop: 07/11/17 14:01 Heparin Sodium (Porcine) (Heparin) 2,400 units ICV ONCE ONE Stop: 07/11/17 14:01 Home Med (Home Med) 1 unit PO DAILY [facility] Last Admin: 07/10/17 11:22 Dose: Not Given Lamivudine (Epivir) 50 mg PO DAILY [facility] Last Admin: 07/10/17 14:08 Dose: 50 mg Meclizine HCl (Antivert) 25 mg PO Q8H PRN PRN Reason: Dizziness Metoprolol Tartrate (Lopressor) 25 mg PO BRKDIN [facility] Last Admin: 07/11/17 08:42 Dose: 25 mg Ondansetron HCl (Zofran Inj) 4 mg IVP DAILY [facility] Last Admin: 07/10/17 12:36 Dose: Not Given Pantoprazole Sodium (Protonix Ec Tab) 40 mg PO 0600 [facility] Last Admin: 07/11/17 05:57 Dose: 40 mg Sevelamer HCl (Renagel) 800 mg PO WM [facility] Last Admin: 07/11/17 08:42 Dose: 800 mg Tramadol HCl (Ultram) 50 mg PO Q8H PRN PRN Reason: Pain, moderate (4-7) Last Admin: 07/10/17 00:04 Dose: 50 mg Vitamin B Complex/Vit C/Folic Acid (Nephro-Christel) 1 tab PO DAILY [facility] Last Admin: 07/10/17 12:27 Dose: 1 tab Results - Vital Signs Recent Vital Signs: Last Vital Signs Temp 99.1 F 07/11/17 07:30 Pulse 80 07/11/17 08:42 Resp 20 07/11/17 07:30 BP 155/45 H 07/11/17 08:42 Pulse Ox 98 07/11/17 07:30 - Labs Result Diagrams: 07/11/17 10:18 07/11/17 10:18 Labs: Laboratory Results - last 24 hr 07/11/17 07/11/17 10:18 10:18 WBC 8.0 RBC 3.08 L Hgb 9.5 L Hct 30.3 L MCV 98.4 MCH 30.8 MCHC 31.4 RDW 15.4 H Plt Count 247 MPV 10.4 Gran % 47.8 L Lymph % (Auto) 33.5 [place] % (Auto) 12.7 H Eos % (Auto) 5.9 H Baso % (Auto) 0.1 Gran # 3.81 Lymph # 2.7 [place] # 1.0 H Eos # 0.5 Baso # 0.01 Sodium 135 Potassium 3.8 Chloride 99 Carbon Dioxide 29 Anion Gap 11 BUN 32 H Creatinine 5.6 H Est GFR ( Amer) 12 Est GFR (Non-Af Amer) 10 Random Glucose 96 Calcium 8.3 L Total Bilirubin 0.4 AST 33 ALT 30 Alkaline Phosphatase 68 Total Protein 6.5 Albumin 2.8 L Globulin 3.7 Albumin/Globulin Ratio 0.8 L Assessment & Plan - Date & Time Date: 07/10/17 Time: 09:00
[2017-07-11] MEDS: Collagenase 250 Units/gm Ointment(30 gm) TOP SCH (15:00)
[2017-07-11] MEDS ORDERED: Darbepoetin Alfa 60 mcg/ml Inj SC ONE (15:42)
--- NOTE | 2017-07-11 15:43 | CP.PCM.PN ---
Subjective - Date & Time of Evaluation Date of Evaluation: 07/11/17 Time of Evaluation: 15:41 - Subjective Subjective: Follow up Nephrology Consultation: Assessment: stable Left hydroureteronephrosis with ? pyelonephritis bladder wall thickening, hx of prostate CA Hypertensive Chronic Kidney Disease (I12.9) ESRD on HD via permacath (TTS) Anemia (D64.9), HTN (I12.9) HIV on HAART, PVD foot ulcer Plan plan for HD today as ordered. nephrovite 1 tab/day aransep 125 mcg weekly for anemia. not on VDRA as PTH at goal. pt on weekly vit D lowered dose of binders Hypertension control with meds as ordered. Patient not on ACEI/ARB as BP controlled. he takes lopressor at home. not on norvasc anymore. appreciate evaluation ID following wound care in feets. podiatry following. MRI foot neg for osteo Dose meds/antibiotics for ESRD status. Avoid fleets enema/magnesium based laxatives. Avoid nephrotoxins/NSAIDs/ iodinated contrast (unless needed emergently) Further work up/management as per primary team Thanks for allowing me to participate in care of your patient. Will follow patient with you. Please call if any Qs. Dr Yandel Arechiga Office: [phone] Chief Complaint; ankle pain reason for consult: ESRD HPI: Pt is a 71 y/o M with hx of HIV on HAART, PVD s/p angioplasty, hypertension (10-15 years), ESRD on HD (via permacath) TTS @ [facility], left foot toe amputations, prostate CA presented with complaints of pain in lower abdomen and vomitting 1 episode yesterday. pt was febrile in HD yesterday when blood cx x 2 done (NEGATIVE TILL DATE) and he was given 1 gram vanco and 120 mg genta with HD. pt was advised to go to hospital which he declined. Later , he came to [facility] with mentioned complaints. he feels better now ROS: Denies chest pain, palpitation, leg swelling. no shortness of breath c/o pain at ankle Physical Examination: seen during HD General Appearance: Comfortable, in no acute respiratory distress, co-operative . Vitals reviewed and noted as below Head; Atraumatic, normocephalic ENT: no ulcers no thrush. Tongue is midline. Oropharynx: no rash or ulcers. EYES: Pupils are equal, round and reactive to light accommodation. Eye muscles and extraocular movement intact. Sclera is anicteric. Neck; supple no lymphadenopathy, no thyromegaly or bruit Lungs: Normal respiratory rate/effort. Breath sounds bilateral clear Heart: Normal rate. s1s2 normal. No rub or gallop. Extremities: no edema. No varicose veins Neurological: Patient is alert, awake and oriented to person, place and time. No focal deficit. Strength bilateral appropriate and equal Skin: Warm and dry. Normal turgor. No rash. Palpitation: Normal elasticity for age Abdomen: Abdomen is soft. Bowel sounds +. There is mild lower abdominal tenderness, no guarding/rigidity no organomegaly Psych: normal insight and normal affect/mood MSK: no joint tenderness or swelling. Digits and nails normal, has rt foot deformity noted with ulcer on medial malleolus. left foot toe amputations in past : kidney or bladder not palpable. Access: permacath Labs/imaging/EKG reviewed. Past medical history, past surgical history, family history, social history, allergy reviewed and noted as below Family hx: sister was on dialysis. Rest non-contributory Objective - Vital Signs/Intake and Output Vital Signs (last 24 hours): Temp Pulse Resp BP Pulse Ox 99.1 F 80 20 155/45 H 98 07/11/17 07:30 07/11/17 08:42 07/11/17 07:30 07/11/17 08:42 07/11/17 07:30 Intake and Output: 07/11/17 07/11/17 06:59 18:59 Intake Total 420 Output Total 100 Balance 320 - Medications Medications: Current Medications Abacavir Sulfate (Ziagen) 300 mg PO BID [facility] Last Admin: 07/10/17 17:11 Dose: 300 mg Acetaminophen (Tylenol 325mg Tab) 650 mg PO Q4H PRN PRN Reason: Fever >100.4 F Last Admin: 07/08/17 20:09 Dose: 650 mg Albuterol/Ipratropium (Duoneb 3 Mg/0.5 Mg (3 Ml) Ud) 3 ml IH Q2H PRN PRN Reason: Shortness of Breath Allopurinol (Zyloprim) 300 mg PO DAILY [facility] Last Admin: 07/10/17 12:19 Dose: 300 mg Collagenase (Santyl) 0 gm TOP DAILY [facility] Stop: 07/13/17 23:00 Last Admin: 07/10/17 14:08 Dose: 1 unit Ergocalciferol (Drisdol 50,000 Intl Units Cap) 1 cap PO Q7D [facility] Last Admin: 07/06/17 13:21 Dose: 1 cap Ferrous Sulfate (Feosol) 324 mg PO BID [facility] Last Admin: 07/10/17 17:10 Dose: 324 mg Heparin Sodium (Porcine) (Heparin) 5,000 units SC Q12 [facility] PRN Reason: Protocol Last Admin: 07/10/17 23:37 Dose: 5,000 units Home Med (Home Med) 1 unit PO DAILY [facility] Last Admin: 07/10/17 11:22 Dose: Not Given Lamivudine (Epivir) 50 mg PO DAILY [facility] Last Admin: 07/10/17 14:08 Dose: 50 mg Meclizine HCl (Antivert) 25 mg PO Q8H PRN PRN Reason: Dizziness Metoprolol Tartrate (Lopressor) 25 mg PO BRKDIN [facility] Last Admin: 07/11/17 08:42 Dose: 25 mg Ondansetron HCl (Zofran Inj) 4 mg IVP DAILY [facility] Last Admin: 07/10/17 12:36 Dose: Not Given Pantoprazole Sodium (Protonix Ec Tab) 40 mg PO 0600 [facility] Last Admin: 07/11/17 05:57 Dose: 40 mg Sevelamer HCl (Renagel) 800 mg PO WM [facility] Last Admin: 07/11/17 08:42 Dose: 800 mg Tramadol HCl (Ultram) 50 mg PO Q8H PRN PRN Reason: Pain, moderate (4-7) Last Admin: 07/10/17 00:04 Dose: 50 mg Vitamin B Complex/Vit C/Folic Acid (Nephro-Christel) 1 tab PO DAILY [facility] Last Admin: 07/10/17 12:27 Dose: 1 tab - Labs Labs: 07/11/17 10:18 07/11/17 10:18
[2017-07-11] MEDS ORDERED: Darbepoetin Alfa 100 mcg/ml Inj SC ONE (16:00)
[2017-07-11] MEDS: Multivitamin Vitamin B Complex (Nephro-Vite) Tab PO SCH (16:07)
[2017-07-11] MEDS: Meropenem 500 MG in Sodium Chloride 0.9% 50 ML IVPB SCH (16:08)
[2017-07-11] MEDS: LamiVUDine 10 mg/ml Syringe PO SCH (16:09)
[2017-07-11] MEDS: DOLUTEGRAVIR 50 MG PO SCH (16:22)
--- NOTE | 2017-07-11 22:51 | CP.PCM.PN ---
Subjective - Date & Time of Evaluation Date of Evaluation: 07/11/17 Time of Evaluation: 12:15 - Subjective Subjective: Afebrile overnight, not in distress, decreased pain in the foot. Objective - Vital Signs/Intake and Output Vital Signs (last 24 hours): Temp Pulse Resp BP Pulse Ox 99.1 F 80 20 155/45 H 98 07/11/17 07:30 07/11/17 08:42 07/11/17 07:30 07/11/17 08:42 07/11/17 07:30 Intake and Output: 07/11/17 07/11/17 06:59 18:59 Intake Total 420 Output Total 100 Balance 320 - Medications Medications: Current Medications Abacavir Sulfate (Ziagen) 300 mg PO BID [facility] Last Admin: 07/10/17 17:11 Dose: 300 mg Acetaminophen (Tylenol 325mg Tab) 650 mg PO Q4H PRN PRN Reason: Fever >100.4 F Last Admin: 07/08/17 20:09 Dose: 650 mg Albuterol/Ipratropium (Duoneb 3 Mg/0.5 Mg (3 Ml) Ud) 3 ml IH Q2H PRN PRN Reason: Shortness of Breath Allopurinol (Zyloprim) 300 mg PO DAILY [facility] Last Admin: 07/10/17 12:19 Dose: 300 mg Collagenase (Santyl) 0 gm TOP DAILY [facility] Stop: 07/13/17 23:00 Last Admin: 07/10/17 14:08 Dose: 1 unit Ergocalciferol (Drisdol 50,000 Intl Units Cap) 1 cap PO Q7D [facility] Last Admin: 07/06/17 13:21 Dose: 1 cap Ferrous Sulfate (Feosol) 324 mg PO BID [facility] Last Admin: 07/10/17 17:10 Dose: 324 mg Heparin Sodium (Porcine) (Heparin) 5,000 units SC Q12 [facility] PRN Reason: Protocol Last Admin: 07/10/17 23:37 Dose: 5,000 units Heparin Sodium (Porcine) (Heparin) 2,200 units ICA ONCE ONE Stop: 07/11/17 14:01 Heparin Sodium (Porcine) (Heparin) 2,400 units ICV ONCE ONE Stop: 07/11/17 14:01 Home Med (Home Med) 1 unit PO DAILY [facility] Last Admin: 07/10/17 11:22 Dose: Not Given Lamivudine (Epivir) 50 mg PO DAILY [facility] Last Admin: 07/10/17 14:08 Dose: 50 mg Meclizine HCl (Antivert) 25 mg PO Q8H PRN PRN Reason: Dizziness Metoprolol Tartrate (Lopressor) 25 mg PO BRKDIN [facility] Last Admin: 07/11/17 08:42 Dose: 25 mg Ondansetron HCl (Zofran Inj) 4 mg IVP DAILY [facility] Last Admin: 07/10/17 12:36 Dose: Not Given Pantoprazole Sodium (Protonix Ec Tab) 40 mg PO 0600 [facility] Last Admin: 07/11/17 05:57 Dose: 40 mg Sevelamer HCl (Renagel) 800 mg PO WM [facility] Last Admin: 07/11/17 08:42 Dose: 800 mg Tramadol HCl (Ultram) 50 mg PO Q8H PRN PRN Reason: Pain, moderate (4-7) Last Admin: 07/10/17 00:04 Dose: 50 mg Vitamin B Complex/Vit C/Folic Acid (Nephro-Christel) 1 tab PO DAILY [facility] Last Admin: 07/10/17 12:27 Dose: 1 tab - Labs Labs: 07/11/17 10:18 07/11/17 10:18 - Constitutional Appears: Non-toxic - Head Exam Head Exam: NORMAL INSPECTION - ENT Exam ENT Exam: Mucous Membranes Moist - Respiratory Exam Respiratory Exam: Decreased Breath Sounds - Cardiovascular Exam Cardiovascular Exam: +S1, +S2 - GI/Abdominal Exam GI & Abdominal Exam: Soft. absent: Tenderness Assessment and Plan - Assessment and Plan (Free Text) Plan: Assessment possible right 3rd digit osteomyelitis R/O PAD right sided nephrolithiasis history of severe sepsis with acute on chronic renal failure probably due to pyelonephritis with E. coli bacteremia history of C. diff. associated diarrhea Charcot foot, left history of left 2nd toe dry gangrene Chronic renal failure on hemodialysis HTN prostate CA HIV ([place] [facility] [place] 349 and virus load < 1.3 log) history of osteomyelitis of left first toe S/P amputation (2015) gout history of left foot ulcers Plan on Merrem day 6; blood are negative, urine cx is showing contamination, would cx showing Corynebacterium and Coagulase negative staph which are probably contaminants; MRI does not show osteomyelitis - complete 7-10 days of therapy continue antiretroviral therapy (lamivudine, abacavir on formulary but dolutegravir should be taken by patient from his home supply)
[2017-07-12] MEDS: Pantoprazole 40 mg EC Tab PO SCH (06:13)
[2017-07-12 07:21] LABS: BASO # 0.01 K/mm3 (0.0-2.0); BASO % 0.1 % (0.0-3.0); EOS # 0.5 (0.0-0.7); EOS % 6.2 % (1.5-5.0); GRAN % 38.5 % (50.0-68.0); HEMATOCRIT 30.5 % (42.0-52.0); LYMPH # 3.1 (1.2-3.4); LYMPH % 39.5 % (22.0-35.0); MEAN CELL VOLUME 98.4 fl (80.0-105.0); MEAN CORPUSCULAR HEMOGLOBIN 30.3 pg (25.0-35.0); MEAN CORPUSCULAR HGB CONC 30.8 g/dl (31.0-37.0); MEAN PLATELET VOLUME 11.2 fl (7.0-11.0); MONO # 1.2 (0.1-0.6); MONO % 15.7 % (1.0-6.0); RED CELL DISTRIBUTION WIDTH 15.4 % (11.5-14.5); WHITE BLOOD COUNT 7.8 10^3/ul (4.5-11.0)
[2017-07-12 07:26] LABS: ALB/GLOB RATIO 0.8 (1.1-1.8); BILIRUBIN,TOTAL 0.5 mg/dL (0.2-1.3); CALCIUM 8.4 mg/dL (8.4-10.5); POTASSIUM 3.7 mmol/L (3.6-5.0); TOTAL PROTEIN 6.4 g/dL (5.8-8.3)
[2017-07-12] MEDS: Multivitamin Vitamin B Complex (Nephro-Vite) Tab PO SCH (10:28)
[2017-07-12] MEDS: Collagenase 250 Units/gm Ointment(30 gm) TOP SCH (10:29)
[2017-07-12] MEDS: DOLUTEGRAVIR 50 MG PO SCH (10:29)
[2017-07-12] MEDS: LamiVUDine 10 mg/ml Syringe PO SCH (10:34)
--- NOTE | 2017-07-12 10:48 | CP.PCM.PN ---
<Mirta Driscoll - Last Filed: 07/12/17 10:45> Subjective - Date & Time of Evaluation Date of Evaluation: 07/12/17 Time of Evaluation: 10:45 - Subjective Subjective: 71 y/o male seen and evaluated at bedside this morning for open ulcerations to bilateral lower extremity. Patient appears AAOx3 and in NAD. Patient denies of any acute overnight events. States that he has pain in his feet and can't keep the bandages on. Patient denies of any other pedal complains. Denies of any recent F/N/V/C/SOB/CP. Objective - Vital Signs/Intake and Output Vital Signs (last 24 hours): Temp Pulse Resp BP Pulse Ox 98.8 F 80 21 151/80 H 97 07/12/17 07:30 07/12/17 08:30 07/12/17 07:30 07/12/17 08:30 07/12/17 07:30 Intake and Output: 07/12/17 07/12/17 06:59 18:59 Intake Total 320 Output Total 0 Balance 320 - Medications Medications: Current Medications Abacavir Sulfate (Ziagen) 300 mg PO BID ON [facility] Last Admin: 07/12/17 10:28 Dose: 300 mg Acetaminophen (Tylenol 325mg Tab) 650 mg PO Q4H PRN PRN Reason: Fever >100.4 F Last Admin: 07/08/17 20:09 Dose: 650 mg Albuterol/Ipratropium (Duoneb 3 Mg/0.5 Mg (3 Ml) Ud) 3 ml IH Q2H PRN PRN Reason: Shortness of Breath Allopurinol (Zyloprim) 300 mg PO DAILY [facility] Last Admin: 07/12/17 10:28 Dose: 300 mg Collagenase (Santyl) 0 gm TOP DAILY [facility] Stop: 07/13/17 23:00 Last Admin: 07/12/17 10:29 Dose: 1 unit Ergocalciferol (Drisdol 50,000 Intl Units Cap) 1 cap PO Q7D [facility] Last Admin: 07/06/17 13:21 Dose: 1 cap Ferrous Sulfate (Feosol) 324 mg PO BID [facility] Last Admin: 07/12/17 10:28 Dose: 324 mg Heparin Sodium (Porcine) (Heparin) 5,000 units SC Q12 [facility] PRN Reason: Protocol Last Admin: 07/12/17 10:27 Dose: 5,000 units Home Med (Home Med) 1 unit PO DAILY [facility] Last Admin: 07/12/17 10:29 Dose: Not Given Lamivudine (Epivir) 50 mg PO DAILY [facility] Last Admin: 07/12/17 10:34 Dose: 50 mg Meclizine HCl (Antivert) 25 mg PO Q8H PRN PRN Reason: Dizziness Metoprolol Tartrate (Lopressor) 25 mg PO BRKDIN [facility] Last Admin: 07/12/17 08:30 Dose: 25 mg Ondansetron HCl (Zofran Inj) 4 mg IVP DAILY [facility] Last Admin: 07/12/17 10:27 Dose: 4 mg Pantoprazole Sodium (Protonix Ec Tab) 40 mg PO 0600 [facility] Last Admin: 07/12/17 06:13 Dose: 40 mg Sevelamer HCl (Renagel) 800 mg PO WM [facility] Last Admin: 07/12/17 10:28 Dose: Not Given Tramadol HCl (Ultram) 50 mg PO Q8H PRN PRN Reason: Pain, moderate (4-7) Last Admin: 07/12/17 08:02 Dose: 50 mg Vitamin B Complex/Vit C/Folic Acid (Nephro-Christel) 1 tab PO DAILY [facility] Last Admin: 07/12/17 10:28 Dose: 1 tab - Labs Labs: 07/12/17 07:00 07/12/17 07:00 - Constitutional Appears: Well, Non-toxic, No Acute Distress - Extremities Exam Extremities Exam: absent: Calf Tenderness Additional comments: Bilateral lower extremity examination: VASC: B/L non-palpable pedal pulses; foot is cool distally at the level of the distal metatarsals and toes; delayed capillary fill time is noted; dry gangrene is noted at the Left 2nd digit DERM: Right: Open ulceration noted to Medial aspect of right Medial malleolus measuring 3cm x 2cm x 0.2cm with hyperpigmented base. No malodor noted. No purulent drainage noted. No tracking noted. No probe to bone. Mild erythema to margins <0.5cm. No sign of acute infection is noted Another open ulceration noted to lateral aspect of right heel measuring 2cm x 0.5cm x 0.2cm with fibrotic base with hyperpigmented margins showing signs of necrosis, No malodor noted. No purulent drainage noted. No tracking noted. No probe to bone. Mild erythema to margins <0.5cm. No sign of acute infection is noted LEFT: Bone exposed to distal aspect of 3rd digit. An superficial ulceration noted to distal aspect of LEFT 3rd digit with dry ischemic wound bed, No drainage is noted, No pus noted. NEURO: protective sensation is grossly diminished ORTHO: RIGHT medial aspect of the ankle and medial aspect of the rearfoot and midfoot are tender upon palpation; gross midfoot collapse is appreciated secondary to Charcot. LEFT 1st and 2nd digit amputation noted. - Neurological Exam Neurological Exam: Alert, Awake, Oriented x3 - Psychiatric Exam Psychiatric exam: Normal Affect, Normal Mood Assessment and Plan - Assessment and Plan (Free Text) Assessment: 71 yo male patient presenting with non-healing open ulcerations to bilateral feet, exposed bone to left 3rd digit Plan: Patient seen and evaluated at bedside with attending Dr. Caldwell Labs and vitals were reviewed; afebrile WBC @ 7.8 today Right foot cleansed with normal sterile saline Right foot dressed with betadine, DSD Left foot cleansed with normal sterile saline Left 3rd digit dressed with betadine, DSD Multipodus boot ordered for bilateral lower extremities; to be applied at all times while in bed Cultures show Corynebacterium and Coag Negative Staph Xray and MRI - reveals no acute fracture or evidence of OM. left foot 3rd digit bone is exposed - OM is highly likely Arterial duplex: MARLENI - R: 0.51 and L: 0.67 Vascular consult - recommendations appreciated -Plan for surgical intervention after the vascular work-up Podiatry will continue to follow while remains in house. <Suri Caldwell - Last Filed: 07/16/17 14:48> Objective - Vital Signs/Intake and Output Vital Signs (last 24 hours): Temp Pulse Resp BP Pulse Ox 98.1 F 65 20 161/85 H 98 07/16/17 07:30 07/16/17 10:16 07/16/17 07:30 07/16/17 10:16 07/16/17 07:30 - Medications Medications: Current Medications Abacavir Sulfate (Ziagen) 300 mg PO BID [facility] Last Admin: 07/16/17 10:16 Dose: 300 mg Acetaminophen (Tylenol 325mg Tab) 650 mg PO Q4H PRN PRN Reason: Fever >100.4 F Last Admin: 07/13/17 12:01 Dose: 650 mg Albuterol/Ipratropium (Duoneb 3 Mg/0.5 Mg (3 Ml) Ud) 3 ml IH Q2H PRN PRN Reason: Shortness of Breath Allopurinol (Zyloprim) 300 mg PO DAILY [facility] Last Admin: 07/16/17 10:16 Dose: 300 mg Ergocalciferol (Drisdol 50,000 Intl Units Cap) 1 cap PO Q7D [facility] Last Admin: 07/13/17 09:37 Dose: 1 cap Ferrous Sulfate (Feosol) 324 mg PO BID [facility] Last Admin: 07/16/17 10:15 Dose: 324 mg Heparin Sodium (Porcine) (Heparin) 5,000 units SC Q12 [facility] PRN Reason: Protocol Last Admin: 07/16/17 10:16 Dose: 5,000 units Heparin Sodium (Porcine) (Heparin) 2,200 units ICA ONCE [facility] Last Admin: 07/15/17 14:48 Dose: Not Given Home Med (Home Med) 1 unit PO DAILY [facility] Last Admin: 07/16/17 10:18 Dose: Not Given Lamivudine (Epivir) 50 mg PO DAILY [facility] Last Admin: 07/16/17 11:34 Dose: 50 mg Losartan Potassium (Cozaar) 100 mg PO DAILY [facility] Last Admin: 07/16/17 10:16 Dose: 100 mg Meclizine HCl (Antivert) 25 mg PO Q8H PRN PRN Reason: Dizziness Metoprolol Tartrate (Lopressor) 25 mg PO BRKDIN [facility] Last Admin: 07/16/17 08:23 Dose: 25 mg Ondansetron HCl (Zofran Inj) 4 mg IVP DAILY [facility] Last Admin: 07/16/17 10:26 Dose: Not Given Pantoprazole Sodium (Protonix Ec Tab) 40 mg PO 0600 [facility] Last Admin: 07/16/17 06:22 Dose: 40 mg Sevelamer HCl (Renagel) 800 mg PO WM [facility] Last Admin: 07/16/17 12:29 Dose: 800 mg Tramadol HCl (Ultram) 50 mg PO Q8H PRN PRN Reason: Pain, moderate (4-7) Last Admin: 07/16/17 00:54 Dose: 50 mg Vitamin B Complex/Vit C/Folic Acid (Nephro-Christel) 1 tab PO DAILY [facility] Last Admin: 07/16/17 10:15 Dose: 1 tab - Labs Labs: 07/16/17 06:30 07/16/17 06:30 Attending/Attestation - Attestation I have personally seen and examined this patient.: Yes I have fully participated in the care of the patient.: Yes I have reviewed all pertinent clinical information, including history, physical exam and plan: Yes
--- NOTE | 2017-07-12 11:41 | CP.PCM.PN ---
Subjective - Date & Time of Evaluation Date of Evaluation: 07/12/17 Time of Evaluation: 11:38 - Subjective Subjective: Internal Medicine progress note - Dr. Adams/Dr. Sesay Patient seen and examined at bedside. No acute events overnight. Patient denies chest pain, shortness of breath, abdominal pain, fever, nausea, vomiting, chills. Patient denies dysuria, hematuria. Patient complains of continued right lower extremity foot pain associated with medial foot wound. Discussed with patient at length the importance of continued medical management of his case in the hospital and potential scenario's where if he would leave against medical advice the risks involved as well as the importance of appropriate follow up outpatient with the individual services of his medical care team. Patient was in understanding. Objective - Vital Signs/Intake and Output Vital Signs (last 24 hours): Temp Pulse Resp BP Pulse Ox 98.8 F 80 21 151/80 H 97 07/12/17 07:30 07/12/17 08:30 07/12/17 07:30 07/12/17 08:30 07/12/17 07:30 Intake and Output: 07/12/17 07/12/17 06:59 18:59 Intake Total 320 Output Total 0 Balance 320 - Medications Medications: Current Medications Abacavir Sulfate (Ziagen) 300 mg PO BID [facility] Last Admin: 07/12/17 10:28 Dose: 300 mg Acetaminophen (Tylenol 325mg Tab) 650 mg PO Q4H PRN PRN Reason: Fever >100.4 F Last Admin: 07/08/17 20:09 Dose: 650 mg Albuterol/Ipratropium (Duoneb 3 Mg/0.5 Mg (3 Ml) Ud) 3 ml IH Q2H PRN PRN Reason: Shortness of Breath Allopurinol (Zyloprim) 300 mg PO DAILY [facility] Last Admin: 07/12/17 10:28 Dose: 300 mg Collagenase (Santyl) 0 gm TOP DAILY [facility] Stop: 07/13/17 23:00 Last Admin: 07/12/17 10:29 Dose: 1 unit Ergocalciferol (Drisdol 50,000 Intl Units Cap) 1 cap PO Q7D [facility] Last Admin: 07/06/17 13:21 Dose: 1 cap Ferrous Sulfate (Feosol) 324 mg PO BID [facility] Last Admin: 07/12/17 10:28 Dose: 324 mg Heparin Sodium (Porcine) (Heparin) 5,000 units SC Q12 [facility] PRN Reason: Protocol Last Admin: 07/12/17 10:27 Dose: 5,000 units Home Med (Home Med) 1 unit PO DAILY [facility] Last Admin: 07/12/17 10:29 Dose: Not Given Lamivudine (Epivir) 50 mg PO DAILY [facility] Last Admin: 07/12/17 10:34 Dose: 50 mg Meclizine HCl (Antivert) 25 mg PO Q8H PRN PRN Reason: Dizziness Metoprolol Tartrate (Lopressor) 25 mg PO BRKDIN [facility] Last Admin: 07/12/17 08:30 Dose: 25 mg Ondansetron HCl (Zofran Inj) 4 mg IVP DAILY [facility] Last Admin: 07/12/17 10:27 Dose: 4 mg Pantoprazole Sodium (Protonix Ec Tab) 40 mg PO 0600 [facility] Last Admin: 07/12/17 06:13 Dose: 40 mg Sevelamer HCl (Renagel) 800 mg PO WM [facility] Last Admin: 07/12/17 10:28 Dose: Not Given Tramadol HCl (Ultram) 50 mg PO Q8H PRN PRN Reason: Pain, moderate (4-7) Last Admin: 07/12/17 08:02 Dose: 50 mg Vitamin B Complex/Vit C/Folic Acid (Nephro-Christel) 1 tab PO DAILY [facility] Last Admin: 07/12/17 10:28 Dose: 1 tab - Labs Labs: 07/12/17 07:00 07/12/17 07:00 - Constitutional Appears: No Acute Distress - Head Exam Head Exam: ATRAUMATIC, NORMAL INSPECTION, NORMOCEPHALIC - Eye Exam Eye Exam: EOMI, PERRL - ENT Exam ENT Exam: Mucous Membranes Moist - Neck Exam Neck Exam: Full ROM - Respiratory Exam Respiratory Exam: Clear to Ausculation Bilateral, NORMAL BREATHING PATTERN. absent: Rales, Rhonchi, Wheezes - Cardiovascular Exam Cardiovascular Exam: REGULAR RHYTHM, +S1, +S2. absent: JVD - GI/Abdominal Exam GI & Abdominal Exam: Soft, Normal Bowel Sounds. absent: Tenderness - Back Exam Back Exam: NORMAL INSPECTION. absent: CVA tenderness (L), CVA tenderness (R) - Neurological Exam Neurological Exam: Alert, Awake, CN II-XII Intact, Oriented x3 Additional comments: Poor propriaoception/sensation left lower extremity digits and dorsum of foot Motor and sensory intact - Psychiatric Exam Psychiatric exam: Normal Affect, Normal Mood - Skin Skin Exam: Dry, Warm Additional comments: Right: Open ulceration noted to Medial aspect of right Medial malleolus measuring 3cm x 2cm x 0.2cm with hyperpigmented base. absent foul odor No purulent drainage noted. No tracking noted Mild erythema to margins <0.5cm. Ulceration of lateral aspect of right heel measuring 2cm x 0.5cm x 0.2cm with fibrotic base with hyperpigmented margins showing signs of necrosis, No malodor noted. No purulent drainage noted. No tracking noted. Mild erythema to margins < 0.5cm. No sign of acute infection is noted LEFT: Bone exposed to distal aspect of 3rd digit. An superficial ulceration noted to distal aspect of LEFT 3rd digit with granular base. No drainage is noted, No pus noted. Possible bone exposure noted to left 3rd digit Assessment and Plan (1) Cellulitis of ankle Status: Acute (2) Pyelonephritis Status: Acute (3) ESRD (end stage renal disease) on dialysis Status: Chronic (4) HIV (human immunodeficiency virus infection) Status: Chronic - Assessment and Plan (Free Text) Assessment: Patient is a PMH of HTN, prostate CA, HIV (last CD4 count on record 03/2016 is 349), history of osteomyelitis of left first toe S/P amputation (2015), gout, ESRD who presented with abdominal pain who was admitted fro sepsis secondary to UTI vs wound infection that has since resolved. Patient continues to be worked up for right medial foot non healing ulcer and suspected OM of the left 3rd digit. Vascular studies have shown poor flow of the left lower extremity and with podiatry team will be awaiting further recommendations from vascular for potential surgical intervention Plan: 1.Sepsis secondary to UTI and/or wound infection as possible source - resolved - Leukocytosis resolved, afebrile - CT also revealed Moderate left-sided hydroureteronephrosis extending to the left ureterovesicular junction without an obstructing stone visualized. - Blood culture negative - Urine culture with reported contamination - ID following, appreciate recs - 7-10 days of antibiotics - NO need for discharge antibiotics at this time - IV Merrem Day 7 - Urology consultation, f/u recs - Recommending outpatient care at this time - Continue current management for UTI/infection source 2. Heal ulcers bilateral suspicion for osteomyelitis and PVD - Xray Right ankle: Suggestive of neuropathic arthropathy with talar collapse and talonavicular extensive arthropathy - Xray Left ankle: No acute fracture. 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 No plain evidence of osteomyelitis - Podiatry consulted, appreciate recs - Vascular consult - Pending vascular appears to be planning for surgical intervention - wound culture of heel; b/;l with growth of Cornybacterium species and coag neg staphylococcus - No sensitivities indicated - MRI of left foot showing no evidence of OM - Vascular study showing - moderately abnormal MARLENI, left SFA occlusive disease, bilateral distal SFA, popliteal, tibial disease - f/u vascular recommendations 3. Bladder wall thickening with air fluid level on CT - hx of prostate ca, workup intervention unknown at this time, have requested records - urology consulted - no plan for cystoscopy at this time, plan for outpatient follow up - PSA nml 4. HIV - ID consulted and following - Ziagen, epivir, Dolutegravir as per ID 5. ESRD- Renal following for HD - HD planned for tomorrow - Continue with renagel 6.Hx of gout - Allopurinol 7. 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 COPD - Duoneb PRN GI PPX: Protonix DVT PPX: Heparin Patient seen, examined and case discussed with Dr. Adams
--- NOTE | 2017-07-12 13:43 | PN ---
DATE: 07/12/2017 SUBJECTIVE: The patient is seen earlier today in room 569, bed 2. The patient appears in no acute distress, nontoxic, no fevers. OBJECTIVE: VITAL SIGNS: Temperature is 98, blood pressure is 150/80, respiratory rate of 21, and heart rate of 80. HEENT: Unremarkable. NECK: Supple. LUNGS: Have decreased breath sounds. HEART: Normal S1 and S2. ABDOMEN: Soft and nontender. LABORATORY DATA: Reveals white count of 7.8, hemoglobin of 9, and platelets of 246. Coagulation is noted. Chemistries revealed BUN of 20 and creatinine of 4.0. PSA is 0.3. Urinalysis is noted and microbiology reveals blood cultures no growth. Urine cultures noted and Corynebacterium coag-negative Staph. ASSESSMENT AND PLAN: A 71-year-old male with possible right third digit osteomyelitis and peripheral artery disease, right-sided nephrolithiasis, history of severe sepsis, [id number] renal failure probably due to pyelonephritis with Escherichia coli bacteremia, history of Clostridium difficile associated diarrhea, Charcot's foot left foot with a history of left second toe dry gangrene and chronic renal failure on hemodialysis and on meropenem and day #7. MRI does not show osteomyelitis. Today is day #7 of antibiotic with complete 7-10 days. Review of medications and orders reveals the patient is now off of antibiotics. The patient is on the HIV medications of lamivudine.. His last CD-4 count here in [place] of 349 and viral load is undetectable. Continue taking some of the HIV medications of lamivudine, Abacavir, and dolutegravir. Cesar Flowers MD
--- NOTE | 2017-07-12 16:31 | CP.PCM.PN ---
Subjective - Date & Time of Evaluation Date of Evaluation: 07/12/17 Time of Evaluation: 16:30 - Subjective Subjective: Follow up Nephrology Consultation: Assessment: stable Left hydroureteronephrosis with ? pyelonephritis bladder wall thickening, hx of prostate CA Hypertensive Chronic Kidney Disease (I12.9) ESRD on HD via permacath (TTS) Anemia (D64.9), HTN (I12.9) HIV on HAART, PVD foot ulcer Plan plan for HD sunday as ordered. no acute need today. continue with nephrovite 1 tab/day aransep 125 mcg weekly for anemia. not on VDRA as PTH at goal. pt on weekly vit D lowered dose of binders Hypertension control with meds as ordered. Patient not on ACEI/ARB as BP mostly controlled. he takes lopressor at home. not on norvasc anymore. appreciate evaluation ID following wound care in [place]. podiatry following. MRI foot neg for osteo vascular input for PVD Dose meds/antibiotics for ESRD status. Avoid fleets enema/magnesium based laxatives. Avoid nephrotoxins/NSAIDs/ iodinated contrast (unless needed emergently) Further work up/management as per primary team Thanks for allowing me to participate in care of your patient. Will follow patient with you. Please call if any Qs. Dr Yandel rAechiga Office: [phone] Chief Complaint; ankle pain reason for consult: ESRD HPI: Pt is a 71 y/o M with hx of HIV on HAART, PVD s/p angioplasty, hypertension (10-15 years), ESRD on HD (via permacath) TTS @ [facility], left foot toe amputations, prostate CA presented with complaints of pain in lower abdomen and vomitting 1 episode yesterday. pt was febrile in HD yesterday when blood cx x 2 done (NEGATIVE TILL DATE) and he was given 1 gram vanco and 120 mg genta with HD. pt was advised to go to hospital which he declined. Later , he came to [facility] with mentioned complaints. he feels better now ROS: Denies chest pain, palpitation, leg swelling. no shortness of breath c/o pain at ankle Physical Examination: General Appearance: Comfortable, in no acute respiratory distress, co-operative . Vitals reviewed and noted as below Head; Atraumatic, normocephalic ENT: no ulcers no thrush. Tongue is midline. Oropharynx: no rash or ulcers. EYES: Pupils are equal, round and reactive to light accommodation. Eye muscles and extraocular movement intact. Sclera is anicteric. Neck; supple no lymphadenopathy, no thyromegaly or bruit Lungs: Normal respiratory rate/effort. Breath sounds bilateral clear Heart: Normal rate. s1s2 normal. No rub or gallop. Extremities: no edema. No varicose veins Neurological: Patient is alert, awake and oriented to person, place and time. No focal deficit. Strength bilateral appropriate and equal Skin: Warm and dry. Normal turgor. No rash. Palpitation: Normal elasticity for age Abdomen: Abdomen is soft. Bowel sounds +. There is mild lower abdominal tenderness, no guarding/rigidity no organomegaly Psych: normal insight and normal affect/mood MSK: no joint tenderness or swelling. Digits and nails normal, has rt foot deformity noted with ulcer on medial malleolus. left foot toe amputations in past : kidney or bladder not palpable. Access: permacath Labs/imaging/EKG reviewed. Past medical history, past surgical history, family history, social history, allergy reviewed and noted as below Family hx: sister was on dialysis. Rest non-contributory Objective - Vital Signs/Intake and Output Vital Signs (last 24 hours): Temp Pulse Resp BP Pulse Ox 98.8 F 76 21 150/79 97 07/12/17 07:30 07/12/17 16:23 07/12/17 07:30 07/12/17 16:23 07/12/17 07:30 Intake and Output: 07/12/17 07/12/17 06:59 18:59 Intake Total 320 Output Total 0 Balance 320 - Medications Medications: Current Medications Abacavir Sulfate (Ziagen) 300 mg PO BID [facility] Last Admin: 07/12/17 10:28 Dose: 300 mg Acetaminophen (Tylenol 325mg Tab) 650 mg PO Q4H PRN PRN Reason: Fever >100.4 F Last Admin: 07/08/17 20:09 Dose: 650 mg Albuterol/Ipratropium (Duoneb 3 Mg/0.5 Mg (3 Ml) Ud) 3 ml IH Q2H PRN PRN Reason: Shortness of Breath Allopurinol (Zyloprim) 300 mg PO DAILY [facility] Last Admin: 07/12/17 10:28 Dose: 300 mg Collagenase (Santyl) 0 gm TOP DAILY [facility] Stop: 07/13/17 23:00 Last Admin: 07/12/17 10:29 Dose: 1 unit Ergocalciferol (Drisdol 50,000 Intl Units Cap) 1 cap PO Q7D [facility] Last Admin: 07/06/17 13:21 Dose: 1 cap Ferrous Sulfate (Feosol) 324 mg PO BID [facility] Last Admin: 07/12/17 10:28 Dose: 324 mg Heparin Sodium (Porcine) (Heparin) 5,000 units SC Q12 [facility] PRN Reason: Protocol Last Admin: 07/12/17 10:27 Dose: 5,000 units Home Med (Home Med) 1 unit PO DAILY [facility] Last Admin: 07/12/17 10:29 Dose: Not Given Lamivudine (Epivir) 50 mg PO DAILY [facility] Last Admin: 07/12/17 10:34 Dose: 50 mg Meclizine HCl (Antivert) 25 mg PO Q8H PRN PRN Reason: Dizziness Metoprolol Tartrate (Lopressor) 25 mg PO BRKDIN [facility] Last Admin: 07/12/17 16:23 Dose: 25 mg Ondansetron HCl (Zofran Inj) 4 mg IVP DAILY [facility] Last Admin: 07/12/17 10:27 Dose: 4 mg Pantoprazole Sodium (Protonix Ec Tab) 40 mg PO 0600 [facility] Last Admin: 07/12/17 06:13 Dose: 40 mg Sevelamer HCl (Renagel) 800 mg PO WM [facility] Last Admin: 07/12/17 16:22 Dose: 800 mg Tramadol HCl (Ultram) 50 mg PO Q8H PRN PRN Reason: Pain, moderate (4-7) Last Admin: 07/12/17 16:22 Dose: 50 mg Vitamin B Complex/Vit C/Folic Acid (Nephro-Christel) 1 tab PO DAILY [facility] Last Admin: 07/12/17 10:28 Dose: 1 tab - Labs Labs: 07/12/17 07:00 07/12/17 07:00
[2017-07-13] MEDS: Pantoprazole 40 mg EC Tab PO SCH (05:59)
[2017-07-13 06:30] LABS: BASO # 0.02 K/mm3 (0.0-2.0); BASO % 0.2 % (0.0-3.0); EOS # 0.4 (0.0-0.7); EOS % 4.8 % (1.5-5.0); GRAN # 3.54 (1.4-6.5); HEMATOCRIT 28.8 % (42.0-52.0); LYMPH # 3.2 (1.2-3.4); LYMPH % 38.7 % (22.0-35.0); MEAN CELL VOLUME 98.6 fl (80.0-105.0); MEAN CORPUSCULAR HEMOGLOBIN 30.8 pg (25.0-35.0); MEAN CORPUSCULAR HGB CONC 31.3 g/dl (31.0-37.0); MEAN PLATELET VOLUME 11.2 fl (7.0-11.0); MONO # 1.1 (0.1-0.6); MONO % 13.3 % (1.0-6.0); RED CELL DISTRIBUTION WIDTH 15.3 % (11.5-14.5); WHITE BLOOD COUNT 8.3 10^3/ul (4.5-11.0)
[2017-07-13 06:55] LABS: ALB/GLOB RATIO 0.8 (1.1-1.8); BILIRUBIN,TOTAL 0.4 mg/dL (0.2-1.3); CALCIUM 8.5 mg/dL (8.4-10.5); POTASSIUM 3.9 mmol/L (3.6-5.0); TOTAL PROTEIN 6.7 g/dL (5.8-8.3)
--- NOTE | 2017-07-13 08:55 | CON ---
DATE: 07/11/2017 UROLOGY CONSULTATION REQUESTED BY: Bal Adams MD REASON FOR CONSULTATION: History of prostatic carcinoma, hydronephrosis. HISTORY OF PRESENT ILLNESS: The patient is a 71-year-old male with history of hydronephrosis. The patient is in otherwise fair health. The patient presented with abdominal pain. He has fever. The patient reports he has good urinary stream and good control. The patient has history of prostate cancer. He reports that he had previous surgery for prostate cancer. He is uncertain of the nature of the surgery. The patient reports he has had no radiation therapy. The patient reports he voids with good urinary stream and good control. The patient has renal failure. He is on hemodialysis. The patient reports no hematuria. No flank pain. The patient has been treated with antibiotic therapy since admission. The patient reports that he is uncomfortable at present. No nausea or vomiting. The patient's major complaint is pain of his lower extremities. The patient has fair appetite. No recent weight loss. The patient has been followed at the [facility]. PHYSICAL EXAMINATION: GENERAL: The patient is well-developed, well-nourished male appearing his stated age. The patient is awake and alert. VITAL SIGNS: Stable. The patient is afebrile. ABDOMEN: Soft, nontender, and nondistended. No mass or organomegaly. BACK: No CVA tenderness. GENITALIA: Without inflammation. RECTAL: Normal sphincter tone. Prostate is firm and smooth approximately 30 g in size, without fixation, induration, nodularity or asymmetry. LABORATORY DATA: Reviewed. CAT scan reveals left hydronephrosis. There is no urolithiasis demonstrated. The urine cultures demonstrated mixed antionette. On admission, the patient had leukocytosis. The white blood count is now normal. Poor renal function is noted, consistent with the patient's history of renal failure requiring dialysis. IMPRESSION: A 71-year-old male with history of prostate carcinoma. The cause of the prostatic carcinoma are uncertain at present. Now, with possible urinary tract infection. The patient is improving clinically. Etiology of renal failure is uncertain. Etiology of hydronephrosis is also uncertain, and needs further evaluation. RECOMMENDATION AND PLAN: urine cultures. Obtain old records. Serum PSA. Serum testosterone. Possible need for cystoscopy and retrograde pyelogram and possible stent insertion. Further therapy to be determined according to the patient's clinical course. We will discuss further with you and with patient. Thank you for recommending the patient for Urology consultation. Arlene Flaherty MD
--- NOTE | 2017-07-13 09:12 | CP.PCM.PN ---
Subjective - Date & Time of Evaluation Date of Evaluation: 07/13/17 Time of Evaluation: 07:30 - Subjective Subjective: Patient seen and evaluated at bedside. Patient complaining of pain associated with right ankle. Patient denies chest pain, shortness of breath, abdominal pain , nausea, fever, chills. Patient care plan discussed, awaiting vascular team recommendations and potential for surgical intervention discussed. Patient outpatient recommendations and plan discussed. Patient in understanding. Objective - Vital Signs/Intake and Output Vital Signs (last 24 hours): Temp Pulse Resp BP Pulse Ox 98.3 F 73 20 159/72 H 98 07/13/17 07:58 07/13/17 08:43 07/13/17 07:58 07/13/17 08:43 07/13/17 07:58 Intake and Output: 07/13/17 07/13/17 06:59 18:59 Intake Total 2740 Balance 2740 - Medications Medications: Current Medications Abacavir Sulfate (Ziagen) 300 mg PO BID [facility] Last Admin: 07/12/17 17:47 Dose: 300 mg Acetaminophen (Tylenol 325mg Tab) 650 mg PO Q4H PRN PRN Reason: Fever >100.4 F Last Admin: 07/08/17 20:09 Dose: 650 mg Albuterol/Ipratropium (Duoneb 3 Mg/0.5 Mg (3 Ml) Ud) 3 ml IH Q2H PRN PRN Reason: Shortness of Breath Allopurinol (Zyloprim) 300 mg PO DAILY [facility] Last Admin: 07/12/17 10:28 Dose: 300 mg Collagenase (Santyl) 0 gm TOP DAILY [facility] Stop: 07/13/17 23:00 Last Admin: 07/12/17 10:29 Dose: 1 unit Ergocalciferol (Drisdol 50,000 Intl Units Cap) 1 cap PO Q7D [facility] Last Admin: 07/06/17 13:21 Dose: 1 cap Ferrous Sulfate (Feosol) 324 mg PO BID [facility] Last Admin: 07/12/17 17:47 Dose: 324 mg Heparin Sodium (Porcine) (Heparin) 5,000 units SC Q12 [facility] PRN Reason: Protocol Last Admin: 07/12/17 21:23 Dose: 5,000 units Home Med (Home Med) 1 unit PO DAILY [facility] Last Admin: 07/12/17 10:29 Dose: Not Given Lamivudine (Epivir) 50 mg PO DAILY [facility] Last Admin: 07/12/17 10:34 Dose: 50 mg Meclizine HCl (Antivert) 25 mg PO Q8H PRN PRN Reason: Dizziness Metoprolol Tartrate (Lopressor) 25 mg PO BRKDIN [facility] Last Admin: 07/13/17 08:43 Dose: 25 mg Ondansetron HCl (Zofran Inj) 4 mg IVP DAILY [facility] Last Admin: 07/12/17 10:27 Dose: 4 mg Pantoprazole Sodium (Protonix Ec Tab) 40 mg PO 0600 [facility] Last Admin: 07/13/17 05:59 Dose: 40 mg Sevelamer HCl (Renagel) 800 mg PO WM [facility] Last Admin: 07/13/17 08:44 Dose: 800 mg Tramadol HCl (Ultram) 50 mg PO Q8H PRN PRN Reason: Pain, moderate (4-7) Last Admin: 07/13/17 03:26 Dose: 50 mg Vitamin B Complex/Vit C/Folic Acid (Nephro-Christel) 1 tab PO DAILY [facility] Last Admin: 07/12/17 10:28 Dose: 1 tab - Labs Labs: 07/13/17 05:30 07/13/17 05:30 - Head Exam Head Exam: ATRAUMATIC, NORMAL INSPECTION, NORMOCEPHALIC - Eye Exam Eye Exam: EOMI, PERRL - ENT Exam ENT Exam: Mucous Membranes Moist - Respiratory Exam Respiratory Exam: Clear to Ausculation Bilateral, NORMAL BREATHING PATTERN - Cardiovascular Exam Cardiovascular Exam: REGULAR RHYTHM, +S1, +S2 - GI/Abdominal Exam GI & Abdominal Exam: Soft, Normal Bowel Sounds. absent: Firm, Guarding, Tenderness - Extremities Exam Extremities Exam: absent: Calf Tenderness, Pedal Edema - Back Exam Back Exam: NORMAL INSPECTION. absent: CVA tenderness (L), CVA tenderness (R) - Neurological Exam Neurological Exam: Alert, Awake, Normal Gait, Oriented x3 Additional comments: Poor propriaoception/sensation left lower extremity digits and dorsum of foot Motor and sensory intact - Psychiatric Exam Psychiatric exam: Normal Affect, Normal Mood - Skin Additional comments: Right: Open ulceration noted to Medial aspect of right Medial malleolus measuring 3cm x 2cm x 0.2cm with hyperpigmented base. absent foul odor No purulent drainage noted. c/d/i Ulceration of lateral aspect of right heel measuring 1.75cm x 0.4cm x 0.2cm with fibrotic base with hyperpigmented margins showing signs of necrosis, No malodor noted. No purulent drainage noted. No tracking noted. Mild erythema to margins <0.5cm. No sign of acute infection is noted LEFT: Bone exposed to distal aspect of 3rd digit. An superficial ulceration noted to distal aspect of LEFT 3rd digit with granular base. No drainage is noted, No pus noted. Possible bone exposure noted to left 3rd digit Assessment and Plan (1) Cellulitis of ankle Status: Acute (2) Pyelonephritis Status: Acute (3) ESRD (end stage renal disease) on dialysis Status: Chronic (4) HIV (human immunodeficiency virus infection) Status: Chronic - Assessment and Plan (Free Text) Assessment: Patient is a PMH of HTN, prostate CA, HIV (last CD4 count on record 03/2016 is 349), history of osteomyelitis of left first toe S/P amputation (2015), gout, ESRD who presented with abdominal pain who was admitted fro sepsis secondary to UTI vs wound infection that has since resolved. Patient continues to be worked up for right medial foot non healing ulcer and suspected OM of the left 3rd digit. Vascular studies have shown poor flow of the left lower extremity and with podiatry team will be awaiting further recommendations from vascular for potential surgical intervention Plan: 1. Sepsis - resolved - Etiology: Likely secondary to UTI vs. wound infection as source - Afebrile, WBC nml, VSS - Blood culture negative - Urine culture with contamination - ID consulted, appreciate recs - 7-10 days of antibiotics - No need for antibiotics on discharge - IV merrem given 7 days - Urology consultation, appreciate recs - Recommeded outpatient f/u with cystoscope - Continue current management for UTI/infection source 2. 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 No plain evidence of osteomyelitis - Vascular study showing - moderately abnormal MARLENI, left SFA occlusive disease, bilateral distal SFA, popliteal, tibial disease - Podiatry consulted, appreciate recs - Vascular consult, awaiting recs for potential surgical intervention - Curbside indicates poor likelihood for surgical intervention at this time -ID following, f/u recs -Vascular consulted, f/u recs 3, Bladder wall thickening - Abd/Pelvis CT showing bladder wall thickening - Hx of prostate cancer, request records from [place] still awaiting records - PSA nml - Urology consulted, appreciate recs - No plan for cystoscopy at this time, plan for outpatient follow up 4. HIV - ID consulted and following - Ziagne, epivir, Dolutegravir as per ID 5. ESRD- Renal following for HD - HD planned for tomorrow - Unable to get a hold of outpatient HD lab to confirm HD for patient on sunday - Continue with renagel 6.Hx of gout - Allopurinol 7. 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 COPD - Duoneb PRN GI PPX: Protonix DVT PPX: Heparin Patient seen, examined and case discussed with attending
[2017-07-13] MEDS: DOLUTEGRAVIR 50 MG PO SCH (09:34)
[2017-07-13] MEDS: LamiVUDine 10 mg/ml Syringe PO SCH (09:35)
[2017-07-13] MEDS: Multivitamin Vitamin B Complex (Nephro-Vite) Tab PO SCH (09:36)
[2017-07-13] MEDS: Ergocalciferol 50,000 Intl Units Cap PO SCH (09:37)
--- NOTE | 2017-07-13 11:08 | PN ---
DATE: 07/13/2017 LOCATION: The patient seen in room 569, bed 2. SUBJECTIVE: No fevers. No chills. No nausea. Uneventful night. PHYSICAL EXAMINATION: VITAL SIGNS: Temperature is 97, blood pressure is 150/70, respiratory rate Is 20, and heart rate of 73. HEENT: Examination of HEENT is unremarkable. NECK: Supple. LUNGS: Decreased breath sounds. HEART: Normal S1 and S2. ABDOMEN: Soft and nontender. LABORATORY DATA: Examination reveals a white count of 8.3, hemoglobin of 9, and platelets of 266. Chemistries are noted and creatinine of 5.3. Urinalysis is noted. Microbiology reveals the Corynebacterium and coagulase-negative Staph. Blood cultures are no growth. Urine cultures no growth. REVIEW OF ORDERS: Reveals the patient to be on HIV medications. ASSESSMENT AND PLAN: This is a 72-year-old male with possible of right third digit osteomyelitis and peripheral artery disease, right-sided nephrolithiasis, history of severe sepsis, acute on chronic renal failure probably due to pyelonephritis with Escherichia coli bacteremia by history and Clostridium difficile, Charcot's left foot and left second toe dry gangrene and chronic renal failure on hemodialysis. Meropenem day number 8 has been completed. MRI is negative for osteomyelitis. Currently, the patient's off of antibiotic and continues to take his HIV medications. We will follow up with his HIV doctor as an outpatient. We will follow with you. Cesar Flowers MD
--- NOTE | 2017-07-13 11:26 | CP.PCM.PN ---
<Mirta Driscoll - Last Filed: 07/13/17 11:23> Subjective - Date & Time of Evaluation Date of Evaluation: 07/13/17 Time of Evaluation: 11:23 - Subjective Subjective: 71 y/o male seen and evaluated at bedside this morning for open ulcerations to bilateral lower extremity. Patient denies of any acute overnight events. Patient appears AAOx3 and in NAD. States that he has pain in his feet and can't keep the bandages on. Patient denies of any other pedal complains. Denies of any recent F/N/V/C/SOB/CP. Objective - Vital Signs/Intake and Output Vital Signs (last 24 hours): Temp Pulse Resp BP Pulse Ox 98.3 F 73 20 159/72 H 98 07/13/17 07:58 07/13/17 08:43 07/13/17 07:58 07/13/17 08:43 07/13/17 07:58 Intake and Output: 07/13/17 07/13/17 06:59 18:59 Intake Total 2740 Balance 2740 - Medications Medications: Current Medications Abacavir Sulfate (Ziagen) 300 mg PO BID [facility] Last Admin: 07/13/17 09:36 Dose: 300 mg Acetaminophen (Tylenol 325mg Tab) 650 mg PO Q4H PRN PRN Reason: Fever >100.4 F Last Admin: 07/08/17 20:09 Dose: 650 mg Albuterol/Ipratropium (Duoneb 3 Mg/0.5 Mg (3 Ml) Ud) 3 ml IH Q2H PRN PRN Reason: Shortness of Breath Allopurinol (Zyloprim) 300 mg PO DAILY [facility] Last Admin: 07/13/17 09:38 Dose: 300 mg Collagenase (Santyl) 0 gm TOP DAILY [facility] Stop: 07/13/17 23:00 Last Admin: 07/12/17 10:29 Dose: 1 unit Ergocalciferol (Drisdol 50,000 Intl Units Cap) 1 cap PO Q7D [facility] Last Admin: 07/13/17 09:37 Dose: 1 cap Ferrous Sulfate (Feosol) 324 mg PO BID [facility] Last Admin: 07/13/17 09:37 Dose: 324 mg Heparin Sodium (Porcine) (Heparin) 5,000 units SC Q12 [facility] PRN Reason: Protocol Last Admin: 07/13/17 09:35 Dose: Not Given Home Med (Home Med) 1 unit PO DAILY [facility] Last Admin: 07/13/17 09:34 Dose: Not Given Lamivudine (Epivir) 50 mg PO DAILY [facility] Last Admin: 07/13/17 09:35 Dose: 50 mg Meclizine HCl (Antivert) 25 mg PO Q8H PRN PRN Reason: Dizziness Metoprolol Tartrate (Lopressor) 25 mg PO BRKDIN [facility] Last Admin: 07/13/17 08:43 Dose: 25 mg Ondansetron HCl (Zofran Inj) 4 mg IVP DAILY [facility] Last Admin: 07/13/17 09:37 Dose: 4 mg Pantoprazole Sodium (Protonix Ec Tab) 40 mg PO 0600 [facility] Last Admin: 07/13/17 05:59 Dose: 40 mg Sevelamer HCl (Renagel) 800 mg PO WM [facility] Last Admin: 07/13/17 08:44 Dose: 800 mg Tramadol HCl (Ultram) 50 mg PO Q8H PRN PRN Reason: Pain, moderate (4-7) Last Admin: 07/13/17 03:26 Dose: 50 mg Vitamin B Complex/Vit C/Folic Acid (Nephro-Christel) 1 tab PO DAILY [facility] Last Admin: 07/13/17 09:36 Dose: 1 tab - Labs Labs: 07/13/17 05:30 07/13/17 05:30 - Constitutional Appears: Well, Non-toxic, No Acute Distress - Extremities Exam Extremities Exam: absent: Calf Tenderness Additional comments: Bilateral lower extremity examination: VASC: B/L non-palpable pedal pulses; foot is cool distally at the level of the distal metatarsals and toes; delayed capillary fill time is noted; dry gangrene is noted at the Left 2nd digit DERM: Right: Open ulceration noted to Medial aspect of right Medial malleolus measuring 3cm x 2cm x 0.2cm with hyperpigmented base. No malodor noted. No purulent drainage noted. No tracking noted. No probe to bone. Mild erythema to margins <0.5cm. No sign of acute infection is noted Another open ulceration noted to lateral aspect of right heel measuring 2cm x 0.5cm x 0.2cm with fibrotic base with hyperpigmented margins showing signs of necrosis, No malodor noted. No purulent drainage noted. No tracking noted. No probe to bone. Mild erythema to margins <0.5cm. No sign of acute infection is noted LEFT: Bone exposed to distal aspect of 3rd digit. An superficial ulceration noted to distal aspect of LEFT 3rd digit with dry ischemic wound bed, No drainage is noted, No pus noted. NEURO: protective sensation is grossly diminished ORTHO: RIGHT medial aspect of the ankle and medial aspect of the rearfoot and midfoot are tender upon palpation; gross midfoot collapse is appreciated secondary to Charcot. LEFT 1st and 2nd digit amputation noted. - Neurological Exam Neurological Exam: Alert, Awake, Oriented x3 - Psychiatric Exam Psychiatric exam: Normal Affect, Normal Mood Assessment and Plan - Assessment and Plan (Free Text) Assessment: 71 yo male patient presenting with non-healing open ulcerations to bilateral feet, exposed bone to left 3rd digit Plan: Patient seen and evaluated at bedside with attending Dr. Caldwell Labs and vitals were reviewed; afebrile WBC @ 8.3 today Right foot cleansed with normal sterile saline Right foot dressed with betadine, DSD Left foot cleansed with normal sterile saline Left 3rd digit dressed with betadine, DSD Multipodus boot to be applied at all times while in bed Cultures show Corynebacterium and Coag Negative Staph Xray and MRI - reveals no acute fracture or evidence of OM. left foot 3rd digit bone is exposed - OM is highly likely Arterial duplex: MARLENI - R: 0.51 and L: 0.67 Vascular consult - recommendations appreciated -Plan for possible surgical intervention after the vascular work-up Podiatry will continue to follow while remains in house. <Jerrod Dunn - Last Filed: 07/13/17 14:04> Objective - Vital Signs/Intake and Output Vital Signs (last 24 hours): Temp Pulse Resp BP Pulse Ox 98.3 F 73 20 159/72 H 98 07/13/17 07:58 07/13/17 08:43 07/13/17 07:58 07/13/17 08:43 07/13/17 07:58 Intake and Output: 07/13/17 07/13/17 06:59 18:59 Intake Total 2740 Balance 2740 - Medications Medications: Current Medications Abacavir Sulfate (Ziagen) 300 mg PO BID [facility] Last Admin: 07/13/17 09:36 Dose: 300 mg Acetaminophen (Tylenol 325mg Tab) 650 mg PO Q4H PRN PRN Reason: Fever >100.4 F Last Admin: 07/13/17 12:01 Dose: 650 mg Albuterol/Ipratropium (Duoneb 3 Mg/0.5 Mg (3 Ml) Ud) 3 ml IH Q2H PRN PRN Reason: Shortness of Breath Allopurinol (Zyloprim) 300 mg PO DAILY [facility] Last Admin: 07/13/17 09:38 Dose: 300 mg Collagenase (Santyl) 0 gm TOP DAILY [facility] Stop: 07/13/17 23:00 Last Admin: 07/12/17 10:29 Dose: 1 unit Ergocalciferol (Drisdol 50,000 Intl Units Cap) 1 cap PO Q7D [facility] Last Admin: 07/13/17 09:37 Dose: 1 cap Ferrous Sulfate (Feosol) 324 mg PO BID [facility] Last Admin: 07/13/17 09:37 Dose: 324 mg Heparin Sodium (Porcine) (Heparin) 5,000 units SC Q12 [facility] PRN Reason: Protocol Last Admin: 07/13/17 09:35 Dose: Not Given Home Med (Home Med) 1 unit PO DAILY [facility] Last Admin: 07/13/17 09:34 Dose: Not Given Meropenem 500 mg/ Sodium (Chloride) 50 mls @ 100 mls/hr IVPB Q12 [facility] PRN Reason: Protocol Stop: 07/13/17 22:29 Lamivudine (Epivir) 50 mg PO DAILY [facility] Last Admin: 07/13/17 09:35 Dose: 50 mg Meclizine HCl (Antivert) 25 mg PO Q8H PRN PRN Reason: Dizziness Metoprolol Tartrate (Lopressor) 25 mg PO BRKDIN [facility] Last Admin: 07/13/17 08:43 Dose: 25 mg Ondansetron HCl (Zofran Inj) 4 mg IVP DAILY [facility] Last Admin: 07/13/17 09:37 Dose: 4 mg Pantoprazole Sodium (Protonix Ec Tab) 40 mg PO 0600 [facility] Last Admin: 07/13/17 05:59 Dose: 40 mg Sevelamer HCl (Renagel) 800 mg PO WM [facility] Last Admin: 07/13/17 12:01 Dose: 800 mg Tramadol HCl (Ultram) 50 mg PO Q8H PRN PRN Reason: Pain, moderate (4-7) Last Admin: 07/13/17 03:26 Dose: 50 mg Vitamin B Complex/Vit C/Folic Acid (Nephro-Christel) 1 tab PO DAILY [facility] Last Admin: 07/13/17 09:36 Dose: 1 tab - Labs Labs: 07/13/17 05:30 07/13/17 05:30 Attending/Attestation - Attestation I have personally seen and examined this patient.: Yes I have fully participated in the care of the patient.: Yes I have reviewed all pertinent clinical information, including history, physical exam and plan: Yes
--- NOTE | 2017-07-13 14:13 | CP.PCM.PN ---
Subjective - Date & Time of Evaluation Date of Evaluation: 07/13/17 Time of Evaluation: 14:12 - Subjective Subjective: Follow up Nephrology Consultation: Assessment: stable Left hydroureteronephrosis with ? pyelonephritis bladder wall thickening, hx of prostate CA Hypertensive Chronic Kidney Disease (I12.9) ESRD on HD via permacath (TTS) Anemia (D64.9), HTN (I12.9) HIV on HAART, PVD foot ulcer Plan plan for HD sunday as ordered. no acute need today. continue with nephrovite 1 tab/day aransep 125 mcg weekly for anemia. not on VDRA as PTH at goal. pt on weekly vit D lowered dose of binders Hypertension control with meds as ordered. Patient not on ACEI/ARB as BP mostly controlled. he takes lopressor at home. not on norvasc anymore. appreciate evaluation ID following wound care in [place]. podiatry following. MRI foot neg for osteo vascular input for PVD Dose meds/antibiotics for ESRD status. Avoid fleets enema/magnesium based laxatives. Avoid nephrotoxins/NSAIDs/ iodinated contrast (unless needed emergently) Further work up/management as per primary team Thanks for allowing me to participate in care of your patient. Will follow patient with you. Please call if any Qs. Dr Yandel Arechiga Office: [phone] Chief Complaint; ankle pain reason for consult: ESRD HPI: Pt is a 71 y/o M with hx of HIV on HAART, PVD s/p angioplasty, hypertension (10-15 years), ESRD on HD (via permacath) TTS @ [facility], left foot toe amputations, prostate CA presented with complaints of pain in lower abdomen and vomitting 1 episode yesterday. pt was febrile in HD yesterday when blood cx x 2 done (NEGATIVE TILL DATE) and he was given 1 gram vanco and 120 mg genta with HD. pt was advised to go to hospital which he declined. Later , he came to [facility] with mentioned complaints. he feels better now ROS: Denies chest pain, palpitation, leg swelling. no shortness of breath c/o pain at ankle Physical Examination: General Appearance: Comfortable, in no acute respiratory distress, co-operative . Vitals reviewed and noted as below Head; Atraumatic, normocephalic ENT: no ulcers no thrush. Tongue is midline. Oropharynx: no rash or ulcers. EYES: Pupils are equal, round and reactive to light accommodation. Eye muscles and extraocular movement intact. Sclera is anicteric. Neck; supple no lymphadenopathy, no thyromegaly or bruit Lungs: Normal respiratory rate/effort. Breath sounds bilateral clear Heart: Normal rate. s1s2 normal. No rub or gallop. Extremities: no edema. No varicose veins Neurological: Patient is alert, awake and oriented to person, place and time. No focal deficit. Strength bilateral appropriate and equal Skin: Warm and dry. Normal turgor. No rash. Palpitation: Normal elasticity for age Abdomen: Abdomen is soft. Bowel sounds +. There is mild lower abdominal tenderness, no guarding/rigidity no organomegaly Psych: normal insight and normal affect/mood MSK: no joint tenderness or swelling. Digits and nails normal, has rt foot deformity noted with ulcer on medial malleolus. left foot toe amputations in past : kidney or bladder not palpable. Access: permacath Labs/imaging/EKG reviewed. Past medical history, past surgical history, family history, social history, allergy reviewed and noted as below Family hx: sister was on dialysis. Rest non-contributory Objective - Vital Signs/Intake and Output Vital Signs (last 24 hours): Temp Pulse Resp BP Pulse Ox 98.3 F 73 20 159/72 H 98 07/13/17 07:58 07/13/17 08:43 07/13/17 07:58 07/13/17 08:43 07/13/17 07:58 Intake and Output: 07/13/17 07/13/17 06:59 18:59 Intake Total 2740 1000 Output Total 75 Balance 2740 925 - Medications Medications: Current Medications Abacavir Sulfate (Ziagen) 300 mg PO BID [facility] Last Admin: 07/13/17 09:36 Dose: 300 mg Acetaminophen (Tylenol 325mg Tab) 650 mg PO Q4H PRN PRN Reason: Fever >100.4 F Last Admin: 07/13/17 12:01 Dose: 650 mg Albuterol/Ipratropium (Duoneb 3 Mg/0.5 Mg (3 Ml) Ud) 3 ml IH Q2H PRN PRN Reason: Shortness of Breath Allopurinol (Zyloprim) 300 mg PO DAILY [facility] Last Admin: 07/13/17 09:38 Dose: 300 mg Collagenase (Santyl) 0 gm TOP DAILY [facility] Stop: 07/13/17 23:00 Last Admin: 07/12/17 10:29 Dose: 1 unit Ergocalciferol (Drisdol 50,000 Intl Units Cap) 1 cap PO Q7D [facility] Last Admin: 07/13/17 09:37 Dose: 1 cap Ferrous Sulfate (Feosol) 324 mg PO BID [facility] Last Admin: 07/13/17 09:37 Dose: 324 mg Heparin Sodium (Porcine) (Heparin) 5,000 units SC Q12 [facility] PRN Reason: Protocol Last Admin: 07/13/17 09:35 Dose: Not Given Home Med (Home Med) 1 unit PO DAILY [facility] Last Admin: 07/13/17 09:34 Dose: Not Given Meropenem 500 mg/ Sodium (Chloride) 50 mls @ 100 mls/hr IVPB Q12 [facility] PRN Reason: Protocol Stop: 07/13/17 22:29 Lamivudine (Epivir) 50 mg PO DAILY [facility] Last Admin: 07/13/17 09:35 Dose: 50 mg Meclizine HCl (Antivert) 25 mg PO Q8H PRN PRN Reason: Dizziness Metoprolol Tartrate (Lopressor) 25 mg PO BRKDIN [facility] Last Admin: 07/13/17 08:43 Dose: 25 mg Ondansetron HCl (Zofran Inj) 4 mg IVP DAILY [facility] Last Admin: 07/13/17 09:37 Dose: 4 mg Pantoprazole Sodium (Protonix Ec Tab) 40 mg PO 0600 [facility] Last Admin: 07/13/17 05:59 Dose: 40 mg Sevelamer HCl (Renagel) 800 mg PO WM [facility] Last Admin: 07/13/17 12:01 Dose: 800 mg Tramadol HCl (Ultram) 50 mg PO Q8H PRN PRN Reason: Pain, moderate (4-7) Last Admin: 07/13/17 03:26 Dose: 50 mg Vitamin B Complex/Vit C/Folic Acid (Nephro-Christel) 1 tab PO DAILY [facility] Last Admin: 07/13/17 09:36 Dose: 1 tab - Labs Labs: 07/13/17 05:30 07/13/17 05:30
--- NOTE | 2017-07-13 16:27 | PN ---
DATE: SUBJECTIVE: I reviewed Mr. Sagastume's lower extremity arteriogram dated 04/03/2016. At that time, he had renal insufficiency and severe left tibial disease. A complex angioplasty of the left posterior tibial artery was performed. He subsequently had toe amputations on the left. Now, Mr. Sagastume presents with bilateral ulcers. It appears the left third toe is the most concerning with exposed bone. His recent MARLENI/PVR exam is consistent with left SFA and tibial disease. The left SFA was patent on the previous exam in 2015. Mr. Sagastume now is on dialysis. I will speak to Dr. Dunn in the Podiatry service. We will tentatively plan for a left lower extremity arteriogram and intervention if possible on one of his dialysis days if it is deemed necessary. Emmanuel Good MD
[2017-07-13] MEDS: Collagenase 250 Units/gm Ointment(30 gm) TOP SCH (19:25)
[2017-07-13] MEDS ORDERED: Meropenem 500 MG in Sodium Chloride 0.9% 50 ML IVPB SCH (22:00)
[2017-07-14] MEDS: Pantoprazole 40 mg EC Tab PO SCH (06:10)
--- NOTE | 2017-07-14 08:59 | CP.PCM.PN ---
Subjective - Date & Time of Evaluation Date of Evaluation: 07/14/17 Time of Evaluation: 07:00 - Subjective Subjective: Medicine note for Dr. Adams Patient seen and examined at bedside. Patient resting comfortably at bedside having breakfast with no new complaints at this time. Patient is still having RLE pain. I informed the patient that he will be having angio on Sunday and he is [facility] I stressed the importance of this procedure for his RLE wounds and recommended rescheduling his appointment if possible so that he can stay here for treatment. Patient is also complaining of constipation, however he is tolerating his diet and denies abdominal pain, nausea, and vomiting. Patient also denies fever ,chills, chest pain, SOB, dizziness, and headache. Objective - Vital Signs/Intake and Output Vital Signs (last 24 hours): Temp Pulse Resp BP Pulse Ox 98.6 F 71 20 168/86 H 96 07/14/17 07:30 07/14/17 08:21 07/14/17 07:30 07/14/17 08:21 07/14/17 07:30 Intake and Output: 07/14/17 07/14/17 06:59 18:59 Intake Total 940 Balance 940 - Medications Medications: Current Medications Abacavir Sulfate (Ziagen) 300 mg PO BID [facility] Last Admin: 07/13/17 18:28 Dose: 300 mg Acetaminophen (Tylenol 325mg Tab) 650 mg PO Q4H PRN PRN Reason: Fever >100.4 F Last Admin: 07/13/17 12:01 Dose: 650 mg Albuterol/Ipratropium (Duoneb 3 Mg/0.5 Mg (3 Ml) Ud) 3 ml IH Q2H PRN PRN Reason: Shortness of Breath Allopurinol (Zyloprim) 300 mg PO DAILY [facility] Last Admin: 07/13/17 09:38 Dose: 300 mg Ergocalciferol (Drisdol 50,000 Intl Units Cap) 1 cap PO Q7D [facility] Last Admin: 07/13/17 09:37 Dose: 1 cap Ferrous Sulfate (Feosol) 324 mg PO BID [facility] Last Admin: 07/13/17 19:25 Dose: Not Given Heparin Sodium (Porcine) (Heparin) 5,000 units SC Q12 [facility] PRN Reason: Protocol Last Admin: 07/13/17 23:27 Dose: 5,000 units Home Med (Home Med) 1 unit PO DAILY [facility] Last Admin: 07/13/17 09:34 Dose: Not Given Lamivudine (Epivir) 50 mg PO DAILY [facility] Last Admin: 07/13/17 09:35 Dose: 50 mg Meclizine HCl (Antivert) 25 mg PO Q8H PRN PRN Reason: Dizziness Metoprolol Tartrate (Lopressor) 25 mg PO BRKDIN [facility] Last Admin: 07/14/17 08:21 Dose: 25 mg Ondansetron HCl (Zofran Inj) 4 mg IVP DAILY [facility] Last Admin: 07/13/17 09:37 Dose: 4 mg Pantoprazole Sodium (Protonix Ec Tab) 40 mg PO 0600 [facility] Last Admin: 07/14/17 06:10 Dose: 40 mg Sevelamer HCl (Renagel) 800 mg PO WM [facility] Last Admin: 07/14/17 08:21 Dose: 800 mg Tramadol HCl (Ultram) 50 mg PO Q8H PRN PRN Reason: Pain, moderate (4-7) Last Admin: 07/14/17 08:21 Dose: 50 mg Vitamin B Complex/Vit C/Folic Acid (Nephro-Christel) 1 tab PO DAILY [facility] Last Admin: 07/13/17 09:36 Dose: 1 tab - Labs Labs: 07/13/17 05:30 07/13/17 05:30 - Constitutional Appears: Non-toxic, No Acute Distress - Head Exam Head Exam: NORMAL INSPECTION - Eye Exam Eye Exam: EOMI, Normal appearance - ENT Exam ENT Exam: Mucous Membranes Moist - Respiratory Exam Respiratory Exam: Clear to Ausculation Bilateral, NORMAL BREATHING PATTERN. absent: Accessory Muscle Use, Rales, Rhonchi, Wheezes, Respiratory Distress - Cardiovascular Exam Cardiovascular Exam: RRR, +S1, +S2 - GI/Abdominal Exam GI & Abdominal Exam: Soft, Normal Bowel Sounds. absent: Tenderness - Extremities Exam Extremities Exam: Tenderness (distal lateral aspect of RLE). absent: Calf Tenderness Additional comments: Right foot/ankle wrapped in bandages that are clean, dry, intact Left great toe amputated - Neurological Exam Neurological Exam: Alert, Awake - Psychiatric Exam Psychiatric exam: Normal Affect, Normal Mood - Skin Additional comments: Right: Open ulceration noted to Medial aspect of right Medial malleolus measuring 3cm x 2cm x 0.2cm with hyperpigmented base. absent foul odor No purulent drainage noted. c/d/i Ulceration of lateral aspect of right heel measuring 1.75cm x 0.4cm x 0.2cm with fibrotic base with hyperpigmented margins showing signs of necrosis, No malodor noted. No purulent drainage noted. No tracking noted. Mild erythema to margins <0.5cm. No sign of acute infection is noted LEFT: Bone exposed to distal aspect of 3rd digit. An superficial ulceration noted to distal aspect of LEFT 3rd digit with granular base. No drainage is noted, No pus noted. Possible bone exposure noted to left 3rd digit Assessment and Plan - Assessment and Plan (Free Text) Plan: 1. Sepsis - resolved - Etiology: Likely secondary to UTI vs. wound infection as source - Afebrile, WBC nml, VSS - Blood culture negative - Urine culture with contamination - ID consulted, appreciate recs - 7-10 days of antibiotics - No need for antibiotics on discharge - IV merrem given 7 days - Urology consultation, appreciate recs - Recommeded outpatient f/u with cystoscope - Continue current management for UTI/infection source 2. Right medial malleolus ulcer and exposed bone on left third digit of foot - MRI of left foot with no evidence of OM - Xray Right ankle: Suggestive of neuropathic arthropathy with talar collapse and talonavicular extensive arthropathy - Xray Left ankle: No acute fracture. 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 No plain evidence of osteomyelitis - Vascular study showing - moderately abnormal MARLENI, left SFA occlusive disease, bilateral distal SFA, popliteal, tibial disease - Podiatry consulted, appreciate recs - Vascular consult, angio planned for Sunday with dialysis to follow (07/17/17) -ID following, f/u recs 3, Bladder wall thickening - Abd/Pelvis CT showing bladder wall thickening - Hx of prostate cancer, [facility] - PSA nml - Urology consulted, appreciate recs - No plan for cystoscopy at this time, plan for outpatient follow up 4. HIV - ID consulted and following - Ziagne, epivir, Dolutegravir as per ID 5. 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 COPD - Duoneb PRN 9. Constipation - Colace 100 mg BID GI PPX: Protonix DVT PPX: Heparin Patient seen, examined and case discussed with attending
[2017-07-14] MEDS: DOLUTEGRAVIR 50 MG PO SCH (09:41)
[2017-07-14] MEDS: Multivitamin Vitamin B Complex (Nephro-Vite) Tab PO SCH (09:41)
[2017-07-14] MEDS: LamiVUDine 10 mg/ml Syringe PO SCH (10:11)
[2017-07-14 12:09] LABS: BASO # 0.03 K/mm3 (0.0-2.0); BASO % 0.3 % (0.0-3.0); EOS # 0.6 (0.0-0.7); EOS % 5.6 % (1.5-5.0); GRAN # 5.21 (1.4-6.5); GRAN % 48.6 % (50.0-68.0); HEMATOCRIT 29.3 % (42.0-52.0); LYMPH # 3.7 (1.2-3.4); LYMPH % 34.9 % (22.0-35.0); MEAN CELL VOLUME 98.7 fl (80.0-105.0); MEAN CORPUSCULAR HEMOGLOBIN 31.6 pg (25.0-35.0); MEAN CORPUSCULAR HGB CONC 32.1 g/dl (31.0-37.0); MEAN PLATELET VOLUME 10.8 fl (7.0-11.0); MONO # 1.1 (0.1-0.6); MONO % 10.6 % (1.0-6.0); RED CELL DISTRIBUTION WIDTH 15.7 % (11.5-14.5); WHITE BLOOD COUNT 10.7 10^3/ul (4.5-11.0)
--- NOTE | 2017-07-14 12:28 | PN ---
DATE: 07/14/2017 SUBJECTIVE: The patient is in bed, in no acute distress, nontoxic, comfortable. OBJECTIVE: VITAL SIGNS: Temperature is 98, blood pressure is 120/70, respiratory rate is 16. HEENT: Unremarkable. NECK: Supple. LUNGS: Have decreased breath sounds. HEART: Normal S1, S2. ABDOMEN: Soft, nontender. LABORATORY EXAMINATION: Reveals the patient's white count is 8.3, hemoglobin of 9, platelets of 266. Chemistries reveals the patient has a BUN of 32, creatinine of 5.3. Urinalysis is noted. Microbiology reveals Corynebacterium? species. ASSESSMENT AND PLAN: A 72-year-old male with a possible right third digit osteomyelitis and peripheral artery disease, right-sided nephrolithiasis, history of severe sepsis, history of chronic renal failure due to pyelonephritis with Escherichia coli bacteremia by history of pseudomembranous colitis and Charcot's left foot and left second dry gangrene; chronic renal failure, on hemodialysis. Meropenem day #9 and it has been completed. The MRI is negative for osteomyelitis. Currently, the patient is off of antibiotics and has completed the antibiotic therapy. Dr. Emmanuel Good's progress note from yesterday is noted. Dr. Yandel Arechiga's nephrology note is appreciated. Dr. Dunn's progress note is reviewed from yesterday. We will follow with you. Cesar Flowers MD
[2017-07-14 12:34] LABS: ALB/GLOB RATIO 0.8 (1.1-1.8); BILIRUBIN,TOTAL 0.5 mg/dL (0.2-1.3); CALCIUM 8.7 mg/dL (8.4-10.5); POTASSIUM 4.2 mmol/L (3.6-5.0)
--- NOTE | 2017-07-14 13:30 | PN ---
DATE: SUBJECTIVE: A 71-year-old male seen at bedside for continued evaluation and management of bilateral arterial ulcerations on both feet. Mr. Sagastume is concerned as he states he has an appointment on Sunday to go to the [facility] to be treated for his wounds. I explained to Mr. Sagastume that his wounds are primarily due to lack of circulation reaching his feet and that it is of extreme importance that he allow vascular studies to be performed, while he is in the hospital in an effort to ascertain lower extremity perfusion and determine if vascular intervention is warranted. I explained that his wounds will not heal and he may lose his legs if adequate flow cannot be restored to both lower extremities. The patient stated he understood, but would have to speak it over with his sisters before a final decision is made. OBJECTIVE: VITAL SIGNS: Revealed temperature of 98.6, pulse rate of 71, blood pressure of 168/86, and respiratory rate of 20. EXTREMITIES: Nonpalpable pedal pulses noted bilaterally, decreased temperature gradient noted bilaterally. Capillary filling time is noted bilaterally. There are noted to be pedal amputations. There is noted to be a full-thickness ulceration on the medial aspect of the right malleolus that measures approximately 3 cm x 2 cm x 0.2 cm. Base of the ulceration is a mixture of fibrotic and gangrenous tissue. There is no drainage. There is no purulence. The wound does not probe to tendon or bone. There is also noted to be full-thickness ulceration on the lateral aspect of the right heel that measures approximately 2 cm x 0.8 cm x 0.2 cm. The base of the ulceration is a mixture of fibrotic and necrotic tissue. There is noted to be no malodor. There is no purulent drainage. The wound does not probe to tendon or bone. There are no signs of cellulitic activity in neither of these ulcerations. Left foot presents with a full-thickness ulceration at the third digit that shows exposed head of the proximal phalanx. There is no drainage. There is no purulence noted. Protective sensation is absent using 5.07 g monofilament wire testing. Both feet show extensive Charcot arthropathy destructive changes. There is noted to be an amputation of the left hallux. LABORATORY DATA: Laboratory findings revealed white count of 8.3, hemoglobin of 9, hematocrit of 28.8, and platelet count of 266. Cultures taken of his wounds reveal Corynebacterium species and coagulase-negative Staphylococcus aureus growth. MRI results of the left foot show severe degenerative changes with no evidence of osteomyelitis; however, clinically the exposed head of the second proximal phalanx is clearly seen. Exposed bone shows a high probability of osteomyelitis. ASSESSMENT: Nonhealing arterial ulcerations to both feet with exposed bone to the left second digit. PLAN: The patient was evaluated. The wounds were cleansed with normal sterile saline and we applied Betadine with a dry sterile dressing. I spoke with Dr. Emmanuel Good yesterday. He states that he will do an arteriogram on either Sunday or Sunday and ascertain lower extremity perfusion. I spoke with Mr. Sagastume at length stating that the exposed bone on his toe indicates he has a bone infection, which would require amputation of the digit. Once again, I reiterated to Mr. Sagastume before I left the room that it is imperative that we determine if vascular intervention is warranted to increase his lower extremity perfusion before he leaves the hospital. I told him I could not stress the importance of doing this because if he does not have adequate blood flow to his lower legs and feet, he will go on to require below-knee amputations if left unchecked. The patient stated he understood, but needs to speak to his sisters as he feels comfortable being treated at the [facility] for his wounds. In the meantime, we will continue to see the patient daily and plan tentatively for possible digital surgery next week pending vascular evaluation. Jerrod Dunn DPM [facility]
--- NOTE | 2017-07-14 17:07 | CP.PCM.PN ---
Subjective - Date & Time of Evaluation Date of Evaluation: 07/14/17 Time of Evaluation: 11:00 - Subjective Subjective: Follow up Nephrology Consultation: Assessment: stable Left hydroureteronephrosis with ? pyelonephritis bladder wall thickening, hx of prostate CA Hypertensive Chronic Kidney Disease (I12.9) ESRD on HD via permacath (TTS) Anemia (D64.9), HTN (I12.9) HIV on HAART, PVD foot ulcer Plan plan for HD today as ordered. continue with nephrovite 1 tab/day aransep 125 mcg weekly for anemia. not on VDRA as PTH at goal. pt on weekly vit D lowered dose of binders Hypertension control with meds as ordered. Patient not on ACEI/ARB hence started losartan he takes lopressor at home. not on norvasc anymore. appreciate evaluation ID following wound care in feets. podiatry following. MRI foot neg for osteo IR input for PVD appreciated Dose meds/antibiotics for ESRD status. Avoid fleets enema/magnesium based laxatives. Avoid nephrotoxins/NSAIDs Further work up/management as per primary team Thanks for allowing me to participate in care of your patient. Will follow patient with you. Please call if any Qs. Dr Yandel Arechiga Office: [phone] Chief Complaint; ankle pain reason for consult: ESRD HPI: Pt is a 71 y/o M with hx of HIV on HAART, PVD s/p angioplasty, hypertension (10-15 years), ESRD on HD (via permacath) TTS @ [facility], left foot toe amputations, prostate CA presented with complaints of pain in lower abdomen and vomitting 1 episode yesterday. pt was febrile in HD yesterday when blood cx x 2 done (NEGATIVE TILL DATE) and he was given 1 gram vanco and 120 mg genta with HD. pt was advised to go to hospital which he declined. Later , he came to [facility] with mentioned complaints. he feels better now ROS: Denies chest pain, palpitation, leg swelling. no shortness of breath c/o pain at ankle Physical Examination: General Appearance: Comfortable, in no acute respiratory distress, co-operative . Vitals reviewed and noted as below Head; Atraumatic, normocephalic ENT: no ulcers no thrush. Tongue is midline. Oropharynx: no rash or ulcers. EYES: Pupils are equal, round and reactive to light accommodation. Eye muscles and extraocular movement intact. Sclera is anicteric. Neck; supple no lymphadenopathy, no thyromegaly or bruit Lungs: Normal respiratory rate/effort. Breath sounds bilateral clear Heart: Normal rate. s1s2 normal. No rub or gallop. Extremities: no edema. No varicose veins Neurological: Patient is alert, awake and oriented to person, place and time. No focal deficit. Strength bilateral appropriate and equal Skin: Warm and dry. Normal turgor. No rash. Palpitation: Normal elasticity for age Abdomen: Abdomen is soft. Bowel sounds +. There is mild lower abdominal tenderness, no guarding/rigidity no organomegaly Psych: normal insight and normal affect/mood MSK: no joint tenderness or swelling. Digits and nails normal, has rt foot deformity noted with ulcer on medial malleolus. left foot toe amputations in past : kidney or bladder not palpable. Access: permacath Labs/imaging/EKG reviewed. Past medical history, past surgical history, family history, social history, allergy reviewed and noted as below Family hx: sister was on dialysis. Rest non-contributory Objective - Vital Signs/Intake and Output Vital Signs (last 24 hours): Temp Pulse Resp BP Pulse Ox 97.3 F L 75 20 157/80 H 94 L 07/14/17 16:00 07/14/17 16:00 07/14/17 16:00 07/14/17 16:00 07/14/17 16:00 Intake and Output: 07/14/17 07/14/17 06:59 18:59 Intake Total 940 Balance 940 - Medications Medications: Current Medications Abacavir Sulfate (Ziagen) 300 mg PO BID [facility] Last Admin: 07/14/17 09:41 Dose: 300 mg Acetaminophen (Tylenol 325mg Tab) 650 mg PO Q4H PRN PRN Reason: Fever >100.4 F Last Admin: 07/13/17 12:01 Dose: 650 mg Albuterol/Ipratropium (Duoneb 3 Mg/0.5 Mg (3 Ml) Ud) 3 ml IH Q2H PRN PRN Reason: Shortness of Breath Allopurinol (Zyloprim) 300 mg PO DAILY [facility] Last Admin: 07/14/17 09:41 Dose: 300 mg Ergocalciferol (Drisdol 50,000 Intl Units Cap) 1 cap PO Q7D [facility] Last Admin: 07/13/17 09:37 Dose: 1 cap Ferrous Sulfate (Feosol) 324 mg PO BID [facility] Last Admin: 07/14/17 09:40 Dose: 324 mg Heparin Sodium (Porcine) (Heparin) 5,000 units SC Q12 [facility] PRN Reason: Protocol Last Admin: 07/14/17 09:40 Dose: Not Given Heparin Sodium (Porcine) (Heparin) 2,200 units ICA ONCE [facility] Home Med (Home Med) 1 unit PO DAILY [facility] Last Admin: 07/14/17 09:41 Dose: Not Given Lamivudine (Epivir) 50 mg PO DAILY [facility] Last Admin: 07/14/17 10:11 Dose: 50 mg Losartan Potassium (Cozaar) 25 mg PO DAILY [facility] Last Admin: 07/14/17 10:13 Dose: 25 mg Meclizine HCl (Antivert) 25 mg PO Q8H PRN PRN Reason: Dizziness Metoprolol Tartrate (Lopressor) 25 mg PO BRKDIN [facility] Last Admin: 07/14/17 08:21 Dose: 25 mg Ondansetron HCl (Zofran Inj) 4 mg IVP DAILY [facility] Last Admin: 07/14/17 09:41 Dose: Not Given Pantoprazole Sodium (Protonix Ec Tab) 40 mg PO 0600 [facility] Last Admin: 07/14/17 06:10 Dose: 40 mg Sevelamer HCl (Renagel) 800 mg PO WM [facility] Last Admin: 07/14/17 11:44 Dose: Not Given Tramadol HCl (Ultram) 50 mg PO Q8H PRN PRN Reason: Pain, moderate (4-7) Last Admin: 07/14/17 08:21 Dose: 50 mg Vitamin B Complex/Vit C/Folic Acid (Nephro-Christel) 1 tab PO DAILY [facility] Last Admin: 07/14/17 09:41 Dose: 1 tab - Labs Labs: 07/14/17 11:50 07/14/17 11:50
[2017-07-15 07:22] LABS: BASO # 0.03 K/mm3 (0.0-2.0); BASO % 0.3 % (0.0-3.0); EOS # 0.5 (0.0-0.7); EOS % 5.1 % (1.5-5.0); GRAN # 4.15 (1.4-6.5); GRAN % 46.4 % (50.0-68.0); HEMATOCRIT 29.5 % (42.0-52.0); LYMPH # 3.2 (1.2-3.4); LYMPH % 35.7 % (22.0-35.0); MEAN CELL VOLUME 99.3 fl (80.0-105.0); MEAN CORPUSCULAR HEMOGLOBIN 31.3 pg (25.0-35.0); MEAN CORPUSCULAR HGB CONC 31.5 g/dl (31.0-37.0); MEAN PLATELET VOLUME 11.2 fl (7.0-11.0); MONO # 1.1 (0.1-0.6); MONO % 12.5 % (1.0-6.0); RED CELL DISTRIBUTION WIDTH 15.8 % (11.5-14.5)
--- NOTE | 2017-07-15 07:29 | CP.PCM.PN ---
Subjective - Date & Time of Evaluation Date of Evaluation: 07/15/17 Time of Evaluation: 07:26 - Subjective Subjective: Medicine note for Dr. Adams Patient seen and examined at bedside. Patient resting comfortably in bed with no new complaints at this time. Patient says he is still having some pain in his foot that has not improved nor worsened. Patient Is hoping to have the angio done tomorrow. He denies abdominal pain, nausea, and vomiting, fever , chills, chest pain, SOB, dizziness, and headache. Objective - Vital Signs/Intake and Output Vital Signs (last 24 hours): Temp Pulse Resp BP Pulse Ox 98.6 F 79 19 149/84 98 07/15/17 00:00 07/15/17 00:00 07/15/17 00:00 07/15/17 00:00 07/15/17 00:00 Intake and Output: 07/15/17 07/15/17 06:59 18:59 Intake Total 640 Output Total 0 Balance 640 - Medications Medications: Current Medications Abacavir Sulfate (Ziagen) 300 mg PO BID [facility] Last Admin: 07/14/17 17:17 Dose: 300 mg Acetaminophen (Tylenol 325mg Tab) 650 mg PO Q4H PRN PRN Reason: Fever >100.4 F Last Admin: 07/13/17 12:01 Dose: 650 mg Albuterol/Ipratropium (Duoneb 3 Mg/0.5 Mg (3 Ml) Ud) 3 ml IH Q2H PRN PRN Reason: Shortness of Breath Allopurinol (Zyloprim) 300 mg PO DAILY [facility] Last Admin: 07/14/17 09:41 Dose: 300 mg Ergocalciferol (Drisdol 50,000 Intl Units Cap) 1 cap PO Q7D [facility] Last Admin: 07/13/17 09:37 Dose: 1 cap Ferrous Sulfate (Feosol) 324 mg PO BID [facility] Last Admin: 07/14/17 17:17 Dose: 324 mg Heparin Sodium (Porcine) (Heparin) 5,000 units SC Q12 [facility] PRN Reason: Protocol Last Admin: 07/14/17 21:14 Dose: 5,000 units Heparin Sodium (Porcine) (Heparin) 2,200 units ICA ONCE [facility] Last Admin: 07/14/17 17:13 Dose: Not Given Home Med (Home Med) 1 unit PO DAILY [facility] Last Admin: 07/14/17 09:41 Dose: Not Given Lamivudine (Epivir) 50 mg PO DAILY [facility] Last Admin: 07/14/17 10:11 Dose: 50 mg Losartan Potassium (Cozaar) 25 mg PO DAILY [facility] Last Admin: 07/14/17 10:13 Dose: 25 mg Meclizine HCl (Antivert) 25 mg PO Q8H PRN PRN Reason: Dizziness Metoprolol Tartrate (Lopressor) 25 mg PO BRKDIN [facility] Last Admin: 07/14/17 17:17 Dose: 25 mg Ondansetron HCl (Zofran Inj) 4 mg IVP DAILY [facility] Last Admin: 07/14/17 09:41 Dose: Not Given Pantoprazole Sodium (Protonix Ec Tab) 40 mg PO 0600 [facility] Last Admin: 07/14/17 06:10 Dose: 40 mg Sevelamer HCl (Renagel) 800 mg PO WM [facility] Last Admin: 07/14/17 17:17 Dose: 800 mg Tramadol HCl (Ultram) 50 mg PO Q8H PRN PRN Reason: Pain, moderate (4-7) Last Admin: 07/14/17 17:20 Dose: 50 mg Vitamin B Complex/Vit C/Folic Acid (Nephro-Christel) 1 tab PO DAILY [facility] Last Admin: 07/14/17 09:41 Dose: 1 tab - Labs Labs: 07/14/17 11:50 07/14/17 11:50 - Additional Findings Additional findings: - Constitutional Appears: Non-toxic, No Acute Distress - Head Exam Head Exam: NORMAL INSPECTION - Eye Exam Eye Exam: EOMI, Normal appearance - ENT Exam ENT Exam: Mucous Membranes Moist - Respiratory Exam Respiratory Exam: Clear to Ausculation Bilateral, NORMAL BREATHING PATTERN. absent: Accessory Muscle Use, Rales, Rhonchi, Wheezes, Respiratory Distress - Cardiovascular Exam Cardiovascular Exam: RRR, +S1, +S2 - GI/Abdominal Exam GI & Abdominal Exam: Soft, Normal Bowel Sounds. absent: Tenderness - Extremities Exam Extremities Exam: Tenderness (distal lateral aspect of RLE). absent: Calf Tenderness Additional comments: Right LE: Open ulceration noted to Medial aspect of right Medial malleolus measuring 3cm x 2cm x 0.2cm with hyperpigmented base. absent foul odor No purulent drainage noted. c/d/i Ulceration of lateral aspect of right heel measuring 1.75cm x 0.4cm x 0.2cm with fibrotic base with hyperpigmented margins showing signs of necrosis, No malodor noted. No purulent drainage noted. No tracking noted. Mild erythema to margins <0.5cm. No sign of acute infection is noted Left LE: Bone exposed to distal aspect of 3rd digit. An superficial ulceration noted to distal aspect of LEFT 3rd digit with granular base. No drainage is noted, No pus noted. Possible bone exposure noted to left 3rd digit - Neurological Exam Neurological Exam: Alert, Awake - Psychiatric Exam Psychiatric exam: Normal Affect, Normal Mood - Skin Additional comments: See extremities exam - otherwise warm/dry/intact Assessment and Plan - Assessment and Plan (Free Text) Plan: 1. Sepsis - resolved - Etiology: Likely secondary to UTI vs. wound infection as source - Afebrile, WBC nml, VSS - Blood culture negative - Urine culture with contamination - ID consulted, appreciate recs - 7-10 days of antibiotics - No need for antibiotics on discharge - IV merrem given 7 days - Urology consultation, appreciate recs - Recommeded outpatient f/u with cystoscope - Continue current management for UTI/infection source 2. Right medial malleolus ulcer and exposed bone on left third digit of foot - MRI of left foot with no evidence of OM - Xray Right ankle: Suggestive of neuropathic arthropathy with talar collapse and talonavicular extensive arthropathy - Xray Left ankle: No acute fracture. 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 No plain evidence of osteomyelitis - Vascular study showing - moderately abnormal MARLENI, left SFA occlusive disease, bilateral distal SFA, popliteal, tibial disease - Podiatry consulted, appreciate recs - Vascular consult, angio planned for Sunday with dialysis to follow (07/17/17) -ID following, f/u recs 3, Bladder wall thickening - Abd/Pelvis CT showing bladder wall thickening - Hx of [facility] cancer[facility] - PSA nml - Urology consulted, appreciate recs - No plan for cystoscopy at this time, plan for outpatient follow up 4. HIV - ID consulted and following - Ziagne, epivir, Dolutegravir as per ID 5. 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 COPD - Duoneb PRN 9. Constipation - Colace 100 mg BID GI PPX: Protonix DVT PPX: Heparin Patient seen, examined and case discussed with attending
[2017-07-15] MEDS: Pantoprazole 40 mg EC Tab PO SCH (07:37)
[2017-07-15 08:10] LABS: ALB/GLOB RATIO 0.8 (1.1-1.8); BILIRUBIN,TOTAL 0.5 mg/dL (0.2-1.3); CALCIUM 8.6 mg/dL (8.4-10.5); POTASSIUM 3.8 mmol/L (3.6-5.0); TOTAL PROTEIN 6.7 g/dL (5.8-8.3)
[2017-07-15] MEDS: Multivitamin Vitamin B Complex (Nephro-Vite) Tab PO SCH (10:01)
[2017-07-15] MEDS: LamiVUDine 10 mg/ml Syringe PO SCH (11:42)
--- NOTE | 2017-07-15 13:18 | CP.PCM.PN ---
Subjective - Date & Time of Evaluation Date of Evaluation: 07/15/17 Time of Evaluation: 13:18 Objective - Vital Signs/Intake and Output Vital Signs (last 24 hours): Temp Pulse Resp BP Pulse Ox 98.9 F 73 19 166/88 H 98 07/15/17 07:30 07/15/17 10:00 07/15/17 07:30 07/15/17 10:00 07/15/17 07:30 Intake and Output: 07/15/17 07/15/17 06:59 18:59 Intake Total 640 Output Total 0 Balance 640 - Medications Medications: Current Medications Abacavir Sulfate (Ziagen) 300 mg PO BID [facility] Last Admin: 07/15/17 10:02 Dose: 300 mg Acetaminophen (Tylenol 325mg Tab) 650 mg PO Q4H PRN PRN Reason: Fever >100.4 F Last Admin: 07/13/17 12:01 Dose: 650 mg Albuterol/Ipratropium (Duoneb 3 Mg/0.5 Mg (3 Ml) Ud) 3 ml IH Q2H PRN PRN Reason: Shortness of Breath Allopurinol (Zyloprim) 300 mg PO DAILY [facility] Last Admin: 07/15/17 10:03 Dose: 300 mg Ergocalciferol (Drisdol 50,000 Intl Units Cap) 1 cap PO Q7D [facility] Last Admin: 07/13/17 09:37 Dose: 1 cap Ferrous Sulfate (Feosol) 324 mg PO BID [facility] Last Admin: 07/15/17 10:00 Dose: 324 mg Heparin Sodium (Porcine) (Heparin) 5,000 units SC Q12 [facility] PRN Reason: Protocol Last Admin: 07/15/17 10:09 Dose: 5,000 units Heparin Sodium (Porcine) (Heparin) 2,200 units ICA ONCE [facility] Last Admin: 07/14/17 17:13 Dose: Not Given Home Med (Home Med) 1 unit PO DAILY [facility] Last Admin: 07/14/17 09:41 Dose: Not Given Lamivudine (Epivir) 50 mg PO DAILY [facility] Last Admin: 07/15/17 11:42 Dose: 50 mg Losartan Potassium (Cozaar) 50 mg PO DAILY [facility] Last Admin: 07/15/17 10:00 Dose: 50 mg Meclizine HCl (Antivert) 25 mg PO Q8H PRN PRN Reason: Dizziness Metoprolol Tartrate (Lopressor) 25 mg PO BRKDIN [facility] Last Admin: 07/15/17 08:13 Dose: 25 mg Ondansetron HCl (Zofran Inj) 4 mg IVP DAILY [facility] Last Admin: 07/15/17 10:04 Dose: Not Given Pantoprazole Sodium (Protonix Ec Tab) 40 mg PO 0600 [facility] Last Admin: 07/15/17 07:37 Dose: 40 mg Sevelamer HCl (Renagel) 800 mg PO WM [facility] Last Admin: 07/15/17 13:07 Dose: 800 mg Tramadol HCl (Ultram) 50 mg PO Q8H PRN PRN Reason: Pain, moderate (4-7) Last Admin: 07/15/17 13:08 Dose: 50 mg Vitamin B Complex/Vit C/Folic Acid (Nephro-Christel) 1 tab PO DAILY [facility] Last Admin: 07/15/17 10:01 Dose: 1 tab - Labs Labs: 07/15/17 06:45 07/15/17 06:45
--- NOTE | 2017-07-15 13:18 | CP.PCM.PN ---
<JuanJanice - Last Filed: 07/16/17 13:26> Subjective - Date & Time of Evaluation Date of Evaluation: 07/15/17 Time of Evaluation: 13:18 - Subjective Subjective: 71 y/o male seen and evaluated at bedside this morning for open ulcerations to bilateral lower extremity. Patient denies of any acute overnight events. Patient appears AAOx3 and in NAD. Patient states that he has been having spasms and pain in the right foot lately. Pt says his pain is in the area of the two wounds. Patient denies having any other pedal complaints. Pt is aware that he has a vascular procedure coming up the next couple of days. Pt denies any recent F/N/V/C/SOB/CP. Objective - Vital Signs/Intake and Output Vital Signs (last 24 hours): Temp Pulse Resp BP Pulse Ox 98.9 F 73 19 166/88 H 98 07/15/17 07:30 07/15/17 10:00 07/15/17 07:30 07/15/17 10:00 07/15/17 07:30 Intake and Output: 07/15/17 07/15/17 06:59 18:59 Intake Total 640 Output Total 0 Balance 640 - Medications Medications: Current Medications Abacavir Sulfate (Ziagen) 300 mg PO BID [facility] Last Admin: 07/15/17 10:02 Dose: 300 mg Acetaminophen (Tylenol 325mg Tab) 650 mg PO Q4H PRN PRN Reason: Fever >100.4 F Last Admin: 07/13/17 12:01 Dose: 650 mg Albuterol/Ipratropium (Duoneb 3 Mg/0.5 Mg (3 Ml) Ud) 3 ml IH Q2H PRN PRN Reason: Shortness of Breath Allopurinol (Zyloprim) 300 mg PO DAILY [facility] Last Admin: 07/15/17 10:03 Dose: 300 mg Ergocalciferol (Drisdol 50,000 Intl Units Cap) 1 cap PO Q7D [facility] Last Admin: 07/13/17 09:37 Dose: 1 cap Ferrous Sulfate (Feosol) 324 mg PO BID [facility] Last Admin: 07/15/17 10:00 Dose: 324 mg Heparin Sodium (Porcine) (Heparin) 5,000 units SC Q12 [facility] PRN Reason: Protocol Last Admin: 11/26/17 10:09 Dose: 5,000 units Heparin Sodium (Porcine) (Heparin) 2,200 units ICA ONCE [facility] Last Admin: 07/14/17 17:13 Dose: Not Given Home Med (Home Med) 1 unit PO DAILY [facility] Last Admin: 07/14/17 09:41 Dose: Not Given Lamivudine (Epivir) 50 mg PO DAILY [facility] Last Admin: 07/15/17 11:42 Dose: 50 mg Losartan Potassium (Cozaar) 50 mg PO DAILY [facility] Last Admin: 07/15/17 10:00 Dose: 50 mg Meclizine HCl (Antivert) 25 mg PO Q8H PRN PRN Reason: Dizziness Metoprolol Tartrate (Lopressor) 25 mg PO BRKDIN [facility] Last Admin: 07/15/17 08:13 Dose: 25 mg Ondansetron HCl (Zofran Inj) 4 mg IVP DAILY [facility] Last Admin: 07/15/17 10:04 Dose: Not Given Pantoprazole Sodium (Protonix Ec Tab) 40 mg PO 0600 [facility] Last Admin: 07/15/17 07:37 Dose: 40 mg Sevelamer HCl (Renagel) 800 mg PO WM [facility] Last Admin: 07/15/17 13:07 Dose: 800 mg Tramadol HCl (Ultram) 50 mg PO Q8H PRN PRN Reason: Pain, moderate (4-7) Last Admin: 07/15/17 13:08 Dose: 50 mg Vitamin B Complex/Vit C/Folic Acid (Nephro-Christel) 1 tab PO DAILY [facility] Last Admin: 07/15/17 10:01 Dose: 1 tab - Labs Labs: 07/15/17 06:45 07/15/17 06:45 - Constitutional Appears: Well, Non-toxic, No Acute Distress - Extremities Exam Additional comments: Bilateral lower extremity examination: VASC: B/L non-palpable pedal pulses. Foot is cool distally at the level of the distal metatarsals and toes. CFT delayed to all digits B/L. Dry gangrene is noted at the Left 2nd digit DERM: Right: Open ulceration noted to right medial malleolus measuring 3cm x 2cm x 0.2cm with hyperpigmented wound base. No malodor, purulent drainage or tracking noted. No probe to bone. Mild erythema to wound margins. No sign of acute infection is noted. Additional open ulceration noted to lateral aspect of right heel measuring 2cm x 0.5cm x 0.2cm with fibrotic base with hyperpigmented margins showing signs of necrosis. No malodor, purulent drainage or tracking noted. No probe to bone. Mild erythema to margins <0.5cm. No sign of acute infection is noted Left: Bone exposed to distal aspect of 3rd digit. Superficial ulceration noted to distal aspect of 3rd digit with dry ischemic wound bed, No drainage, malodor , tunneling or tracking noted. NEURO: protective sensation is grossly diminished B/L ORTHO: Right medial aspect of the ankle and medial aspect of the rearfoot and midfoot are tender upon palpation. Gross midfoot collapse is appreciated secondary to Charcot neuroarthropathy. Previous left 1st and 2nd digit amputations noted. - Neurological Exam Neurological Exam: Alert, Awake, Oriented x3 - Psychiatric Exam Psychiatric exam: Normal Affect, Normal Mood Assessment and Plan - Assessment and Plan (Free Text) Assessment: 71 yo male patient presenting with non-healing open ulcerations to bilateral feet and exposed bone to left 3rd digit Plan: Patient seen and evaluated at bedside Discussed plan with attending Dr. Caldwell Labs and vitals were reviewed; afebrile WBC 9.0 Right foot cleansed with normal sterile saline Right foot dressed with betadine, DSD Left foot 3rd digit cleansed with normal sterile saline Left 3rd digit dressed with betadine, DSD Multipodus boot to be applied at all times while in bed Cultures show Corynebacterium and Coag Negative Staph Xray and MRI - reveals no acute fracture or evidence of OM. left foot 3rd digit bone is exposed - OM is highly likely Arterial duplex: MARLENI - R: 0.51 and L: 0.67 Vascular consult - recommendations appreciated -Plan for possible surgical intervention after the vascular work-up, to be done tomorrow or Sunday Podiatry will continue to follow while remains in house <Suri Caldwell - Last Filed: 07/16/17 14:52> Objective - Vital Signs/Intake and Output Vital Signs (last 24 hours): Temp Pulse Resp BP Pulse Ox 98.1 F 65 20 161/85 H 98 07/16/17 07:30 07/16/17 10:16 07/16/17 07:30 07/16/17 10:16 07/16/17 07:30 - Medications Medications: Current Medications Abacavir Sulfate (Ziagen) 300 mg PO BID [facility] Last Admin: 07/16/17 10:16 Dose: 300 mg Acetaminophen (Tylenol 325mg Tab) 650 mg PO Q4H PRN PRN Reason: Fever >100.4 F Last Admin: 07/13/17 12:01 Dose: 650 mg Albuterol/Ipratropium (Duoneb 3 Mg/0.5 Mg (3 Ml) Ud) 3 ml IH Q2H PRN PRN Reason: Shortness of Breath Allopurinol (Zyloprim) 300 mg PO DAILY [facility] Last Admin: 07/16/17 10:16 Dose: 300 mg Ergocalciferol (Drisdol 50,000 Intl Units Cap) 1 cap PO Q7D [facility] Last Admin: 07/13/17 09:37 Dose: 1 cap Ferrous Sulfate (Feosol) 324 mg PO BID [facility] Last Admin: 07/16/17 10:15 Dose: 324 mg Heparin Sodium (Porcine) (Heparin) 5,000 units SC Q12 [facility] PRN Reason: Protocol Last Admin: 07/16/17 10:16 Dose: 5,000 units Heparin Sodium (Porcine) (Heparin) 2,200 units ICA ONCE [facility] Last Admin: 07/15/17 14:48 Dose: Not Given Home Med (Home Med) 1 unit PO DAILY [facility] Last Admin: 07/16/17 10:18 Dose: Not Given Lamivudine (Epivir) 50 mg PO DAILY [facility] Last Admin: 07/16/17 11:34 Dose: 50 mg Losartan Potassium (Cozaar) 100 mg PO DAILY [facility] Last Admin: 07/16/17 10:16 Dose: 100 mg Meclizine HCl (Antivert) 25 mg PO Q8H PRN PRN Reason: Dizziness Metoprolol Tartrate (Lopressor) 25 mg PO BRKDIN [facility] Last Admin: 07/16/17 08:23 Dose: 25 mg Ondansetron HCl (Zofran Inj) 4 mg IVP DAILY [facility] Last Admin: 07/16/17 10:26 Dose: Not Given Pantoprazole Sodium (Protonix Ec Tab) 40 mg PO 0600 [facility] Last Admin: 07/16/17 06:22 Dose: 40 mg Sevelamer HCl (Renagel) 800 mg PO WM [facility] Last Admin: 07/16/17 12:29 Dose: 800 mg Tramadol HCl (Ultram) 50 mg PO Q8H PRN PRN Reason: Pain, moderate (4-7) Last Admin: 07/16/17 00:54 Dose: 50 mg Vitamin B Complex/Vit C/Folic Acid (Nephro-Christel) 1 tab PO DAILY [facility] Last Admin: 07/16/17 10:15 Dose: 1 tab - Labs Labs: 07/16/17 06:30 07/16/17 06:30 Attending/Attestation - Attestation I have personally seen and examined this patient.: Yes I have fully participated in the care of the patient.: Yes I have reviewed all pertinent clinical information, including history, physical exam and plan: Yes
[2017-07-15] MEDS: DOLUTEGRAVIR 50 MG PO SCH (14:48)
--- NOTE | 2017-07-15 14:49 | PN ---
DATE: 07/15/2017 SUBJECTIVE: The patient seen early this morning in 569. No fevers and no chills. PHYSICAL EXAMINATION: VITAL SIGNS: On exam, temperature is 98, blood pressure is 160/70, respiratory rate 60. HEENT: Unremarkable. NECK: Supple. LUNGS: Decreased breath sounds. HEART: Normal S1, S2. ABDOMEN: Soft, nontender. LABORATORY DATA: Reveals the patient's white count of 9.0, hemoglobin of 9, platelets of 290, and coagulation is noted. Chemistries reveals a BUN of 23, creatinine of 4.2. Urinalysis is noted. Microbiology is reviewed. MEDICATIONS: The patient's orders reveals the patient to be off of antibiotics. ASSESSMENT AND PLAN: This is a 72-year-old male with possible right third digit osteomyelitis, peripheral artery disease, right-sided nephrolithiasis, history of severe sepsis, history of chronic renal failure, pyelonephritis, and history of Escherichia coli bacteremia, history of pseudomembranous colitis and Charcot's left foot, left foot secondary gangrene, chronic renal failure on hemodialysis. Had completed meropenem therapy for cellulitis. The patient has an MRI which is negative for osteomyelitis. Currently off of antibiotics. Vascular workup in progress. Regarding the peripheral vascular disease, Dr. Emmanuel Good's note is reviewed. We will follow with you. The patient is at risk for developing nosocomial infections. Cesar Flowers MD
--- NOTE | 2017-07-15 14:55 | CP.PCM.PN ---
Subjective - Date & Time of Evaluation Date of Evaluation: 07/15/17 Time of Evaluation: 10:00 - Subjective Subjective: Follow up Nephrology Consultation: Assessment: stable Left hydroureteronephrosis with ? pyelonephritis bladder wall thickening, hx of prostate CA Hypertensive Chronic Kidney Disease (I12.9) ESRD on HD via permacath (TTS) Anemia (D64.9), HTN (I12.9) HIV on HAART, PVD foot ulcer Plan plan for next HD sunday as ordered. continue with nephrovite 1 tab/day aransep 125 mcg weekly for anemia. not on VDRA as PTH at goal. pt on weekly vit D lowered dose of binders Hypertension control with meds as ordered. Patient not on ACEI/ARB hence started losartan (increased to 50 mg) he takes lopressor at home. not on norvasc anymore. appreciate evaluation ID following wound care in feets. podiatry following. MRI foot neg for osteo IR input for PVD appreciated, planned for intervention next week Dose meds/antibiotics for ESRD status. Avoid fleets enema/magnesium based laxatives. Avoid nephrotoxins/NSAIDs Further work up/management as per primary team Thanks for allowing me to participate in care of your patient. Will follow patient with you. Please call if any Qs. Dr Yandel Arechiga Office: [phone] Chief Complaint; ankle pain reason for consult: ESRD HPI: Pt is a 71 y/o M with hx of HIV on HAART, PVD s/p angioplasty, hypertension (10-15 years), ESRD on HD (via permacath) TTS @ [facility], left foot toe amputations, prostate CA presented with complaints of pain in lower abdomen and vomitting 1 episode yesterday. pt was febrile in HD yesterday when blood cx x 2 done (NEGATIVE TILL DATE) and he was given 1 gram vanco and 120 mg genta with HD. pt was advised to go to hospital which he declined. Later , he came to [facility] with mentioned complaints. he feels better now ROS: Denies chest pain, palpitation, leg swelling. no shortness of breath c/o pain at ankle Physical Examination: General Appearance: Comfortable, in no acute respiratory distress, co-operative . Vitals reviewed and noted as below Head; Atraumatic, normocephalic ENT: no ulcers no thrush. Tongue is midline. Oropharynx: no rash or ulcers. EYES: Pupils are equal, round and reactive to light accommodation. Eye muscles and extraocular movement intact. Sclera is anicteric. Neck; supple no lymphadenopathy, no thyromegaly or bruit Lungs: Normal respiratory rate/effort. Breath sounds bilateral clear Heart: Normal rate. s1s2 normal. No rub or gallop. Extremities: no edema. No varicose veins Neurological: Patient is alert, awake and oriented to person, place and time. No focal deficit. Strength bilateral appropriate and equal Skin: Warm and dry. Normal turgor. No rash. Palpitation: Normal elasticity for age Abdomen: Abdomen is soft. Bowel sounds +. There is mild lower abdominal tenderness, no guarding/rigidity no organomegaly Psych: normal insight and normal affect/mood MSK: no joint tenderness or swelling. Digits and nails normal, has rt foot deformity noted with ulcer on medial malleolus. left foot toe amputations in past : kidney or bladder not palpable. Access: permacath Labs/imaging/EKG reviewed. Past medical history, past surgical history, family history, social history, allergy reviewed and noted as below Family hx: sister was on dialysis. Rest non-contributory Objective - Vital Signs/Intake and Output Vital Signs (last 24 hours): Temp Pulse Resp BP Pulse Ox 98.9 F 73 19 166/88 H 98 07/15/17 07:30 07/15/17 10:00 07/15/17 07:30 07/15/17 10:00 07/15/17 07:30 Intake and Output: 07/15/17 07/15/17 06:59 18:59 Intake Total 640 620 Output Total 0 Balance 640 620 - Medications Medications: Current Medications Abacavir Sulfate (Ziagen) 300 mg PO BID [facility] Last Admin: 07/15/17 10:02 Dose: 300 mg Acetaminophen (Tylenol 325mg Tab) 650 mg PO Q4H PRN PRN Reason: Fever >100.4 F Last Admin: 07/13/17 12:01 Dose: 650 mg Albuterol/Ipratropium (Duoneb 3 Mg/0.5 Mg (3 Ml) Ud) 3 ml IH Q2H PRN PRN Reason: Shortness of Breath Allopurinol (Zyloprim) 300 mg PO DAILY [facility] Last Admin: 07/15/17 10:03 Dose: 300 mg Ergocalciferol (Drisdol 50,000 Intl Units Cap) 1 cap PO Q7D [facility] Last Admin: 07/13/17 09:37 Dose: 1 cap Ferrous Sulfate (Feosol) 324 mg PO BID [facility] Last Admin: 07/15/17 10:00 Dose: 324 mg Heparin Sodium (Porcine) (Heparin) 5,000 units SC Q12 [facility] PRN Reason: Protocol Last Admin: 07/15/17 10:09 Dose: 5,000 units Heparin Sodium (Porcine) (Heparin) 2,200 units ICA ONCE [facility] Last Admin: 07/15/17 14:48 Dose: Not Given Home Med (Home Med) 1 unit PO DAILY [facility] Last Admin: 07/15/17 14:48 Dose: Not Given Lamivudine (Epivir) 50 mg PO DAILY [facility] Last Admin: 07/15/17 11:42 Dose: 50 mg Losartan Potassium (Cozaar) 50 mg PO DAILY [facility] Last Admin: 07/15/17 10:00 Dose: 50 mg Meclizine HCl (Antivert) 25 mg PO Q8H PRN PRN Reason: Dizziness Metoprolol Tartrate (Lopressor) 25 mg PO BRKDIN [facility] Last Admin: 07/15/17 08:13 Dose: 25 mg Ondansetron HCl (Zofran Inj) 4 mg IVP DAILY [facility] Last Admin: 07/15/17 10:04 Dose: Not Given Pantoprazole Sodium (Protonix Ec Tab) 40 mg PO 0600 [facility] Last Admin: 07/15/17 07:37 Dose: 40 mg Sevelamer HCl (Renagel) 800 mg PO WM [facility] Last Admin: 07/15/17 13:07 Dose: 800 mg Tramadol HCl (Ultram) 50 mg PO Q8H PRN PRN Reason: Pain, moderate (4-7) Last Admin: 07/15/17 13:08 Dose: 50 mg Vitamin B Complex/Vit C/Folic Acid (Nephro-Christel) 1 tab PO DAILY [facility] Last Admin: 07/15/17 10:01 Dose: 1 tab - Labs Labs: 07/15/17 06:45 07/15/17 06:45
[2017-07-16] MEDS: Pantoprazole 40 mg EC Tab PO SCH (06:22)
[2017-07-16 07:08] LABS: BASO # 0.05 K/mm3 (0.0-2.0); BASO % 0.5 % (0.0-3.0); EOS # 0.8 (0.0-0.7); EOS % 7.2 % (1.5-5.0); GRAN # 5.33 (1.4-6.5); GRAN % 48.8 % (50.0-68.0); HEMATOCRIT 28.6 % (42.0-52.0); LYMPH # 3.7 (1.2-3.4); LYMPH % 33.6 % (22.0-35.0); MEAN CELL VOLUME 99.7 fl (80.0-105.0); MEAN CORPUSCULAR HGB CONC 31.1 g/dl (31.0-37.0); MEAN PLATELET VOLUME 10.9 fl (7.0-11.0); MONO # 1.1 (0.1-0.6); MONO % 9.9 % (1.0-6.0); WHITE BLOOD COUNT 10.9 10^3/ul (4.5-11.0)
[2017-07-16 08:01] LABS: ALB/GLOB RATIO 0.8 (1.1-1.8); BILIRUBIN,TOTAL 0.5 mg/dL (0.2-1.3); CALCIUM 8.8 mg/dL (8.4-10.5); POTASSIUM 3.8 mmol/L (3.6-5.0); TOTAL PROTEIN 6.6 g/dL (5.8-8.3)
--- NOTE | 2017-07-16 10:02 | CP.PCM.PN ---
<Mrita Driscoll - Last Filed: 07/16/17 09:58> Subjective - Date & Time of Evaluation Date of Evaluation: 07/16/17 Time of Evaluation: 09:59 - Subjective Subjective: 71 y/o male seen and evaluated at bedside this morning for open ulcerations to bilateral lower extremity. Patient denies of any acute overnight events. Patient appears AAOx3 and in NAD. Patient states that he has spasms in his feet every now and then. Patient denies of any other pedal complains. States that he will be going for angiogram tomorrow. Denies of any recent F/N/V/C/SOB/CP. Objective - Vital Signs/Intake and Output Vital Signs (last 24 hours): Temp Pulse Resp BP Pulse Ox 98.1 F 71 20 173/93 H 98 07/16/17 07:30 07/16/17 08:23 07/16/17 07:30 07/16/17 08:23 07/16/17 07:30 - Medications Medications: Current Medications Abacavir Sulfate (Ziagen) 300 mg PO BID COUNTS INCLUDE 234 BEDS AT THE [facility] Last Admin: 07/15/17 17:41 Dose: 300 mg Acetaminophen (Tylenol 325mg Tab) 650 mg PO Q4H PRN PRN Reason: Fever >100.4 F Last Admin: 07/13/17 12:01 Dose: 650 mg Albuterol/Ipratropium (Duoneb 3 Mg/0.5 Mg (3 Ml) Ud) 3 ml IH Q2H PRN PRN Reason: Shortness of Breath Allopurinol (Zyloprim) 300 mg PO DAILY COUNTS INCLUDE 234 BEDS AT THE [facility] Last Admin: 07/15/17 10:03 Dose: 300 mg Ergocalciferol (Drisdol 50,000 Intl Units Cap) 1 cap PO Q7D COUNTS INCLUDE 234 BEDS AT THE [facility] Last Admin: 07/13/17 09:37 Dose: 1 cap Ferrous Sulfate (Feosol) 324 mg PO BID COUNTS INCLUDE 234 BEDS AT THE [facility] Last Admin: 07/15/17 17:41 Dose: 324 mg Heparin Sodium (Porcine) (Heparin) 5,000 units SC Q12 [facility] PRN Reason: Protocol Last Admin: 07/15/17 22:53 Dose: 5,000 units Heparin Sodium (Porcine) (Heparin) 2,200 units ICA ONCE COUNTS INCLUDE 234 BEDS AT THE [facility] Last Admin: 07/15/17 14:48 Dose: Not Given Home Med (Home Med) 1 unit PO DAILY COUNTS INCLUDE 234 BEDS AT THE [facility] Last Admin: 07/15/17 14:48 Dose: Not Given Lamivudine (Epivir) 50 mg PO DAILY COUNTS INCLUDE 234 BEDS AT THE [facility] Last Admin: 07/15/17 11:42 Dose: 50 mg Losartan Potassium (Cozaar) 100 mg PO DAILY COUNTS INCLUDE 234 BEDS AT THE [facility] Meclizine HCl (Antivert) 25 mg PO Q8H PRN PRN Reason: Dizziness Metoprolol Tartrate (Lopressor) 25 mg PO BRKDIN COUNTS INCLUDE 234 BEDS AT THE [facility] Last Admin: 07/16/17 08:23 Dose: 25 mg Ondansetron HCl (Zofran Inj) 4 mg IVP DAILY COUNTS INCLUDE 234 BEDS AT THE [facility] Last Admin: 07/15/17 10:04 Dose: Not Given Pantoprazole Sodium (Protonix Ec Tab) 40 mg PO 0600 COUNTS INCLUDE 234 BEDS AT THE [facility] Last Admin: 07/16/17 06:22 Dose: 40 mg Sevelamer HCl (Renagel) 800 mg PO WM COUNTS INCLUDE 234 BEDS AT THE [facility] Last Admin: 07/16/17 08:25 Dose: 800 mg Tramadol HCl (Ultram) 50 mg PO Q8H PRN PRN Reason: Pain, moderate (4-7) Last Admin: 07/16/17 00:54 Dose: 50 mg Vitamin B Complex/Vit C/Folic Acid (Nephro-Christel) 1 tab PO DAILY COUNTS INCLUDE 234 BEDS AT THE [facility] Last Admin: 07/15/17 10:01 Dose: 1 tab - Labs Labs: 07/16/17 06:30 07/16/17 06:30 - Constitutional Appears: Well, Non-toxic, No Acute Distress - Extremities Exam Extremities Exam: absent: Calf Tenderness Additional comments: Bilateral lower extremity examination: VASC: B/L non-palpable pedal pulses; foot is cool distally at the level of the distal metatarsals and toes; delayed capillary fill time is noted; dry gangrene is noted at the Left 2nd digit DERM: Right: Open ulceration noted to Medial aspect of right Medial malleolus measuring 3cm x 2cm x 0.2cm with hyperpigmented base. No malodor noted. No purulent drainage noted. No tracking noted. No probe to bone. Mild erythema to margins <0.5cm. No sign of acute infection is noted Another open ulceration noted to lateral aspect of right heel measuring 2cm x 0.5cm x 0.2cm with fibrotic base with hyperpigmented margins showing signs of necrosis, No malodor noted. No purulent drainage noted. No tracking noted. No probe to bone. Mild erythema to margins <0.5cm. No sign of acute infection is noted LEFT: Bone exposed to distal aspect of 3rd digit. An superficial ulceration noted to distal aspect of LEFT 3rd digit with dry ischemic wound bed, No drainage is noted, No pus noted. NEURO: protective sensation is grossly diminished ORTHO: RIGHT medial aspect of the ankle and medial aspect of the rearfoot and midfoot are tender upon palpation; gross midfoot collapse is appreciated secondary to Charcot. LEFT 1st and 2nd digit amputation noted. - Neurological Exam Neurological Exam: Alert, Awake, Oriented x3 - Psychiatric Exam Psychiatric exam: Normal Affect, Normal Mood Assessment and Plan - Assessment and Plan (Free Text) Assessment: 71 yo male patient presenting with non-healing open ulcerations to bilateral feet, exposed bone to left 3rd digit Plan: Patient seen and evaluated at bedside with attending Dr. Caldwell Labs and vitals were reviewed; afebrile WBC @ 10.9 today Right foot cleansed with normal sterile saline Right foot dressed with betadine, DSD Left foot cleansed with normal sterile saline Left 3rd digit dressed with betadine, DSD Multipodus boot to be applied at all times while in bed Cultures show Corynebacterium and Coag Negative Staph Xray and MRI - reveals no acute fracture or evidence of OM. left foot 3rd digit bone is exposed - OM is highly likely Arterial duplex: MARLENI - R: 0.51 and L: 0.67 Vascular consult - recommendations appreciated -Plan for possible surgical intervention after the vascular work-up Podiatry will continue to follow while remains in house. <Suri Caldwell - Last Filed: 07/16/17 14:51> Objective - Vital Signs/Intake and Output Vital Signs (last 24 hours): Temp Pulse Resp BP Pulse Ox 98.1 F 65 20 161/85 H 98 07/16/17 07:30 07/16/17 10:16 07/16/17 07:30 07/16/17 10:16 07/16/17 07:30 - Medications Medications: Current Medications Abacavir Sulfate (Ziagen) 300 mg PO BID COUNTS INCLUDE 234 BEDS AT THE [facility] Last Admin: 07/16/17 10:16 Dose: 300 mg Acetaminophen (Tylenol 325mg Tab) 650 mg PO Q4H PRN PRN Reason: Fever >100.4 F Last Admin: 07/13/17 12:01 Dose: 650 mg Albuterol/Ipratropium (Duoneb 3 Mg/0.5 Mg (3 Ml) Ud) 3 ml IH Q2H PRN PRN Reason: Shortness of Breath Allopurinol (Zyloprim) 300 mg PO DAILY COUNTS INCLUDE 234 BEDS AT THE [facility] Last Admin: 07/16/17 10:16 Dose: 300 mg Ergocalciferol (Drisdol 50,000 Intl Units Cap) 1 cap PO Q7D COUNTS INCLUDE 234 BEDS AT THE [facility] Last Admin: 07/13/17 09:37 Dose: 1 cap Ferrous Sulfate (Feosol) 324 mg PO BID COUNTS INCLUDE 234 BEDS AT THE [facility] Last Admin: 07/16/17 10:15 Dose: 324 mg Heparin Sodium (Porcine) (Heparin) 5,000 units SC Q12 [facility] PRN Reason: Protocol Last Admin: 07/16/17 10:16 Dose: 5,000 units Heparin Sodium (Porcine) (Heparin) 2,200 units ICA ONCE COUNTS INCLUDE 234 BEDS AT THE [facility] Last Admin: 07/15/17 14:48 Dose: Not Given Home Med (Home Med) 1 unit PO DAILY COUNTS INCLUDE 234 BEDS AT THE [facility] Last Admin: 07/16/17 10:18 Dose: Not Given Lamivudine (Epivir) 50 mg PO DAILY COUNTS INCLUDE 234 BEDS AT THE [facility] Last Admin: 07/16/17 11:34 Dose: 50 mg Losartan Potassium (Cozaar) 100 mg PO DAILY COUNTS INCLUDE 234 BEDS AT THE [facility] Last Admin: 07/16/17 10:16 Dose: 100 mg Meclizine HCl (Antivert) 25 mg PO Q8H PRN PRN Reason: Dizziness Metoprolol Tartrate (Lopressor) 25 mg PO BRKDIN COUNTS INCLUDE 234 BEDS AT THE [facility] Last Admin: 07/16/17 08:23 Dose: 25 mg Ondansetron HCl (Zofran Inj) 4 mg IVP DAILY COUNTS INCLUDE 234 BEDS AT THE [facility] Last Admin: 07/16/17 10:26 Dose: Not Given Pantoprazole Sodium (Protonix Ec Tab) 40 mg PO 0600 COUNTS INCLUDE 234 BEDS AT THE [facility] Last Admin: 07/16/17 06:22 Dose: 40 mg Sevelamer HCl (Renagel) 800 mg PO WM COUNTS INCLUDE 234 BEDS AT THE [facility] Last Admin: 07/16/17 12:29 Dose: 800 mg Tramadol HCl (Ultram) 50 mg PO Q8H PRN PRN Reason: Pain, moderate (4-7) Last Admin: 07/16/17 00:54 Dose: 50 mg Vitamin B Complex/Vit C/Folic Acid (Nephro-Christel) 1 tab PO DAILY COUNTS INCLUDE 234 BEDS AT THE [facility] Last Admin: 07/16/17 10:15 Dose: 1 tab - Labs Labs: 07/16/17 06:30 07/16/17 06:30 Attending/Attestation - Attestation I have personally seen and examined this patient.: Yes I have fully participated in the care of the patient.: Yes I have reviewed all pertinent clinical information, including history, physical exam and plan: Yes
[2017-07-16] MEDS: Multivitamin Vitamin B Complex (Nephro-Vite) Tab PO SCH (10:15)
[2017-07-16] MEDS: DOLUTEGRAVIR 50 MG PO SCH (10:18)
--- NOTE | 2017-07-16 10:48 | CP.PCM.PN ---
Subjective - Date & Time of Evaluation Date of Evaluation: 07/16/17 Time of Evaluation: 07:00 - Subjective Subjective: Patient is seen and examined at bedside on F. Patient resting comfortably in bed. Patient with elevated BP overnight. Increase in BP meds made. Patient continues to express desire to leave hospital. Discussion regarding care and planned intervention including interventional radiology and angiogram for assessment of vasculature of lower extremities conducted. Patient educated on further plan for potential amputation at bedside and continued need for hemodialysis. Patient agrees to stay. Patient denies chest pain, shortness of breath, fever, nausea, vomiting chills. Complains of pain associated with healing ulcers. Pain is controlled with current pain regiment. Objective - Vital Signs/Intake and Output Vital Signs (last 24 hours): Temp Pulse Resp BP Pulse Ox 98.1 F 65 20 161/85 H 98 07/16/17 07:30 07/16/17 10:16 07/16/17 07:30 07/16/17 10:16 07/16/17 07:30 - Medications Medications: Current Medications Abacavir Sulfate (Ziagen) 300 mg PO BID [facility] Last Admin: 07/16/17 10:16 Dose: 300 mg Acetaminophen (Tylenol 325mg Tab) 650 mg PO Q4H PRN PRN Reason: Fever >100.4 F Last Admin: 07/13/17 12:01 Dose: 650 mg Albuterol/Ipratropium (Duoneb 3 Mg/0.5 Mg (3 Ml) Ud) 3 ml IH Q2H PRN PRN Reason: Shortness of Breath Allopurinol (Zyloprim) 300 mg PO DAILY [facility] Last Admin: 07/16/17 10:16 Dose: 300 mg Ergocalciferol (Drisdol 50,000 Intl Units Cap) 1 cap PO Q7D [facility] Last Admin: 07/13/17 09:37 Dose: 1 cap Ferrous Sulfate (Feosol) 324 mg PO BID [facility] Last Admin: 07/16/17 10:15 Dose: 324 mg Heparin Sodium (Porcine) (Heparin) 5,000 units SC Q12 [facility] PRN Reason: Protocol Last Admin: 07/16/17 10:16 Dose: 5,000 units Heparin Sodium (Porcine) (Heparin) 2,200 units ICA ONCE [facility] Last Admin: 07/15/17 14:48 Dose: Not Given Home Med (Home Med) 1 unit PO DAILY [facility] Last Admin: 07/16/17 10:18 Dose: Not Given Lamivudine (Epivir) 50 mg PO DAILY [facility] Last Admin: 07/15/17 11:42 Dose: 50 mg Losartan Potassium (Cozaar) 100 mg PO DAILY [facility] Last Admin: 07/16/17 10:16 Dose: 100 mg Meclizine HCl (Antivert) 25 mg PO Q8H PRN PRN Reason: Dizziness Metoprolol Tartrate (Lopressor) 25 mg PO BRKDIN [facility] Last Admin: 07/16/17 08:23 Dose: 25 mg Ondansetron HCl (Zofran Inj) 4 mg IVP DAILY [facility] Last Admin: 07/16/17 10:26 Dose: Not Given Pantoprazole Sodium (Protonix Ec Tab) 40 mg PO 0600 [facility] Last Admin: 07/16/17 06:22 Dose: 40 mg Sevelamer HCl (Renagel) 800 mg PO WM [facility] Last Admin: 07/16/17 08:25 Dose: 800 mg Tramadol HCl (Ultram) 50 mg PO Q8H PRN PRN Reason: Pain, moderate (4-7) Last Admin: 07/16/17 00:54 Dose: 50 mg Vitamin B Complex/Vit C/Folic Acid (Nephro-Christel) 1 tab PO DAILY [facility] Last Admin: 07/16/17 10:15 Dose: 1 tab - Labs Labs: 07/16/17 06:30 07/16/17 06:30 - Constitutional Appears: No Acute Distress - Head Exam Head Exam: ATRAUMATIC, NORMAL INSPECTION, NORMOCEPHALIC - Eye Exam Eye Exam: EOMI, PERRL Pupil Exam: PERRL - ENT Exam ENT Exam: Mucous Membranes Moist - Neck Exam Neck Exam: Full ROM - Respiratory Exam Respiratory Exam: Clear to Ausculation Bilateral, NORMAL BREATHING PATTERN. absent: Rales, Rhonchi, Wheezes - Cardiovascular Exam Cardiovascular Exam: REGULAR RHYTHM, +S1, +S2 - GI/Abdominal Exam GI & Abdominal Exam: Soft, Normal Bowel Sounds. absent: Guarding, Rigid, Tenderness - Extremities Exam Extremities Exam: absent: Calf Tenderness, Pedal Edema - Back Exam Back Exam: NORMAL INSPECTION. absent: paraspinal tenderness - Neurological Exam Neurological Exam: Alert, Awake, Oriented x3. absent: Motor Sensory Deficit - Psychiatric Exam Psychiatric exam: Normal Affect, Normal Mood - Skin Skin Exam: Dry, Intact Additional comments: Right: Open ulceration on medial aspect of right medial mallelous with hyperpigmented base. No odor or purulent drainage. Open ulceration noted on lateral aspect of right heel with fibrotic base with hyperpigmented margins showing signs of necrois. No odor, purulent drainage. LEFT: Bone exposed to distal aspect of 3rd digit. An superficial ulceration noted to distal aspect of LEFT 3rd digit with dry ischemic wound bed, No drainage is noted, No pus noted. Assessment and Plan (1) Peripheral vascular disease Status: Chronic (2) Pyelonephritis Status: Acute (3) ESRD (end stage renal disease) on dialysis Status: Chronic (4) HIV (human immunodeficiency virus infection) Status: Chronic - Assessment and Plan (Free Text) Assessment: Patient is a PMH of HTN, prostate CA, HIV (last CD4 count on record 03/2016 is 349), history of osteomyelitis of left first toe S/P amputation (2015), gout, ESRD who presented with abdominal pain who was admitted fro sepsis secondary to UTI vs wound infection that has since resolved. Patient continues to be worked up for right medial foot non healing ulcer and suspected OM of the left 3rd digit. Vascular studies have shown poor flow of the left lower extremity. Patient to go for vascular procedure tomorrow for evaluation and possible intervention for PVD. Plan: 1. 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 No plain evidence of osteomyelitis - Vascular study showing - moderately abnormal MARLENI, left SFA occlusive disease, bilateral distal SFA, popliteal, tibial disease - Podiatry consulted, appreciate recs - Vascular consult, awaiting recs for potential surgical intervention - Curbside indicates poor likelihood for surgical intervention at this time -ID following, f/u recs -Vascular consulted, f/u recs 2. Peripheral vascular disease - Vascular study showing - moderately abnormal MARLENI, left SFA occlusive disease, bilateral distal SFA, popliteal, tibial disease - Plan for angiogram tomorrow for potential intervention - f/u recs 3. Sepsis - resolved - Etiology: Likely secondary to UTI vs. wound infection as source - Afebrile, WBC nml, VSS - Blood culture negative - Urine culture with contamination - ID consulted, appreciate recs - 7-10 days of antibiotics - No need for antibiotics at this time or discharge - IV merrem given 7 days total - Urology consultation, appreciate recs - Recommeded outpatient f/u with cystoscope - Continue current management for UTI/infection source 4. Bladder wall thickening - Abd/Pelvis CT showing bladder wall thickening - Hx of prostate cancer, request records from ID still awaiting records - PSA nml - Urology consulted, appreciate recs - No plan for cystoscopy at this time, plan for outpatient follow up 5. HIV - ID consulted and following - Ziagne, epivir, Dolutegravir as per ID 6. 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 COPD - Duoneb PRN GI PPX: Protonix DVT PPX: Heparin Patient seen, examined and case discussed with attending
[2017-07-16] MEDS: LamiVUDine 10 mg/ml Syringe PO SCH (11:34)
--- NOTE | 2017-07-16 13:52 | CP.PCM.PN ---
Subjective - Date & Time of Evaluation Date of Evaluation: 07/16/17 Time of Evaluation: 12:00 - Subjective Subjective: Comfortable, no fevers, not in distress. Objective - Vital Signs/Intake and Output Vital Signs (last 24 hours): Temp Pulse Resp BP Pulse Ox 98.1 F 65 20 161/85 H 98 07/16/17 07:30 07/16/17 10:16 07/16/17 07:30 07/16/17 10:16 07/16/17 07:30 - Medications Medications: Current Medications Abacavir Sulfate (Ziagen) 300 mg PO BID [facility] Last Admin: 07/16/17 10:16 Dose: 300 mg Acetaminophen (Tylenol 325mg Tab) 650 mg PO Q4H PRN PRN Reason: Fever >100.4 F Last Admin: 07/13/17 12:01 Dose: 650 mg Albuterol/Ipratropium (Duoneb 3 Mg/0.5 Mg (3 Ml) Ud) 3 ml IH Q2H PRN PRN Reason: Shortness of Breath Allopurinol (Zyloprim) 300 mg PO DAILY [facility] Last Admin: 07/16/17 10:16 Dose: 300 mg Ergocalciferol (Drisdol 50,000 Intl Units Cap) 1 cap PO Q7D [facility] Last Admin: 07/13/17 09:37 Dose: 1 cap Ferrous Sulfate (Feosol) 324 mg PO BID [facility] Last Admin: 07/16/17 10:15 Dose: 324 mg Heparin Sodium (Porcine) (Heparin) 5,000 units SC Q12 [facility] PRN Reason: Protocol Last Admin: 07/16/17 10:16 Dose: 5,000 units Heparin Sodium (Porcine) (Heparin) 2,200 units ICA ONCE [facility] Last Admin: 07/15/17 14:48 Dose: Not Given Home Med (Home Med) 1 unit PO DAILY [facility] Last Admin: 07/16/17 10:18 Dose: Not Given Lamivudine (Epivir) 50 mg PO DAILY [facility] Last Admin: 07/15/17 11:42 Dose: 50 mg Losartan Potassium (Cozaar) 100 mg PO DAILY [facility] Last Admin: 07/16/17 10:16 Dose: 100 mg Meclizine HCl (Antivert) 25 mg PO Q8H PRN PRN Reason: Dizziness Metoprolol Tartrate (Lopressor) 25 mg PO BRKDIN [facility] Last Admin: 07/16/17 08:23 Dose: 25 mg Ondansetron HCl (Zofran Inj) 4 mg IVP DAILY [facility] Last Admin: 07/16/17 10:26 Dose: Not Given Pantoprazole Sodium (Protonix Ec Tab) 40 mg PO 0600 [facility] Last Admin: 07/16/17 06:22 Dose: 40 mg Sevelamer HCl (Renagel) 800 mg PO WM [facility] Last Admin: 07/16/17 08:25 Dose: 800 mg Tramadol HCl (Ultram) 50 mg PO Q8H PRN PRN Reason: Pain, moderate (4-7) Last Admin: 07/16/17 00:54 Dose: 50 mg Vitamin B Complex/Vit C/Folic Acid (Nephro-Christel) 1 tab PO DAILY [facility] Last Admin: 07/16/17 10:15 Dose: 1 tab - Labs Labs: 07/16/17 06:30 07/16/17 06:30 - Constitutional Appears: Non-toxic, No Acute Distress - Head Exam Head Exam: NORMAL INSPECTION - Neck Exam Neck Exam: absent: Meningismus - Respiratory Exam Respiratory Exam: Decreased Breath Sounds - Cardiovascular Exam Cardiovascular Exam: +S1, +S2 - GI/Abdominal Exam GI & Abdominal Exam: Soft. absent: Tenderness Assessment and Plan - Assessment and Plan (Free Text) Plan: Assessment S/P lower leg and foot cellulitis R/O PAD right sided nephrolithiasis history of severe sepsis with acute on chronic renal failure probably due to pyelonephritis with E. coli bacteremia history of C. diff. associated diarrhea Charcot foot, left history of left 2nd toe dry gangrene Chronic renal failure on hemodialysis HTN prostate CA HIV (patient goes to the [place] with last CD4 count here at [facility] [place] 03/2016 349 and virus load < 1.3 log) history of osteomyelitis of left first toe S/P amputation (2015) gout history of left foot ulcers Plan continue to monitor off antibiotics follow up Vascular work-up continue antiretroviral therapy (lamivudine, abacavir on formulary but dolutegravir should be taken by patient from his home supply) discussed with Dr. Adams
--- NOTE | 2017-07-16 14:34 | CP.PCM.PN ---
Subjective - Date & Time of Evaluation Date of Evaluation: 07/16/17 Time of Evaluation: 14:32 - Subjective Subjective: Follow up Nephrology Consultation: Assessment: stable foot ulcer with PVD Hypertensive Chronic Kidney Disease (I12.9) ESRD on HD via permacath (TTS) Anemia (D64.9), HTN (I12.9) HIV on HAART, Left hydroureteronephrosis with ? pyelonephritis bladder wall thickening, hx of prostate CA Plan plan for next HD sunday as ordered. continue with nephrovite 1 tab/day aransep 125 mcg weekly for anemia. not on VDRA as PTH at goal. pt on weekly vit D lowered dose of binders Hypertension control with meds as ordered. Patient now on max dose of losartan, can increased lopressor further if needed. appreciate evaluation, ID following, podiatry following. MRI foot neg for osteo IR input for PVD appreciated, planned for intervention soon. Dose meds/antibiotics for ESRD status. Avoid fleets enema/magnesium based laxatives. Avoid nephrotoxins/NSAIDs Further work up/management as per primary team Thanks for allowing me to participate in care of your patient. Will follow patient with you. Please call if any Qs. Dr Yandel Arechiga Office: [phone] Chief Complaint; ankle pain reason for consult: ESRD HPI: Pt is a 71 y/o M with hx of HIV on HAART, PVD s/p angioplasty, hypertension (10-15 years), ESRD on HD (via permacath) TTS @ [facility], left foot toe amputations, prostate CA presented with complaints of pain in lower abdomen and vomitting 1 episode yesterday. pt was febrile in HD yesterday when blood cx x 2 done (NEGATIVE TILL DATE) and he was given 1 gram vanco and 120 mg genta with HD. pt was advised to go to hospital which he declined. Later , he came to [facility] with mentioned complaints. he feels better now ROS: Denies chest pain, palpitation, leg swelling. no shortness of breath c/o pain at ankle Physical Examination: General Appearance: Comfortable, in no acute respiratory distress, co-operative . Vitals reviewed and noted as below Head; Atraumatic, normocephalic ENT: no ulcers no thrush. Tongue is midline. Oropharynx: no rash or ulcers. EYES: Pupils are equal, round and reactive to light accommodation. Eye muscles and extraocular movement intact. Sclera is anicteric. Neck; supple no lymphadenopathy, no thyromegaly or bruit Lungs: Normal respiratory rate/effort. Breath sounds bilateral clear Heart: Normal rate. s1s2 normal. No rub or gallop. Extremities: no edema. No varicose veins Neurological: Patient is alert, awake and oriented to person, place and time. No focal deficit. Strength bilateral appropriate and equal Skin: Warm and dry. Normal turgor. No rash. Palpitation: Normal elasticity for age Abdomen: Abdomen is soft. Bowel sounds +. There is mild lower abdominal tenderness, no guarding/rigidity no organomegaly Psych: normal insight and normal affect/mood MSK: no joint tenderness or swelling. Digits and nails normal, has rt foot deformity noted with ulcer on medial malleolus. left foot toe amputations in past : kidney or bladder not palpable. Access: permacath Labs/imaging/EKG reviewed. Past medical history, past surgical history, family history, social history, allergy reviewed and noted as below Family hx: sister was on dialysis. Rest non-contributory Objective - Vital Signs/Intake and Output Vital Signs (last 24 hours): Temp Pulse Resp BP Pulse Ox 98.1 F 65 20 161/85 H 98 07/16/17 07:30 07/16/17 10:16 07/16/17 07:30 07/16/17 10:16 07/16/17 07:30 - Medications Medications: Current Medications Abacavir Sulfate (Ziagen) 300 mg PO BID [facility] Last Admin: 07/16/17 10:16 Dose: 300 mg Acetaminophen (Tylenol 325mg Tab) 650 mg PO Q4H PRN PRN Reason: Fever >100.4 F Last Admin: 07/13/17 12:01 Dose: 650 mg Albuterol/Ipratropium (Duoneb 3 Mg/0.5 Mg (3 Ml) Ud) 3 ml IH Q2H PRN PRN Reason: Shortness of Breath Allopurinol (Zyloprim) 300 mg PO DAILY [facility] Last Admin: 07/16/17 10:16 Dose: 300 mg Ergocalciferol (Drisdol 50,000 Intl Units Cap) 1 cap PO Q7D [facility] Last Admin: 07/13/17 09:37 Dose: 1 cap Ferrous Sulfate (Feosol) 324 mg PO BID [facility] Last Admin: 07/16/17 10:15 Dose: 324 mg Heparin Sodium (Porcine) (Heparin) 5,000 units SC Q12 [facility] PRN Reason: Protocol Last Admin: 07/16/17 10:16 Dose: 5,000 units Heparin Sodium (Porcine) (Heparin) 2,200 units ICA ONCE [facility] Last Admin: 07/15/17 14:48 Dose: Not Given Home Med (Home Med) 1 unit PO DAILY [facility] Last Admin: 07/16/17 10:18 Dose: Not Given Lamivudine (Epivir) 50 mg PO DAILY [facility] Last Admin: 07/16/17 11:34 Dose: 50 mg Losartan Potassium (Cozaar) 100 mg PO DAILY [facility] Last Admin: 07/16/17 10:16 Dose: 100 mg Meclizine HCl (Antivert) 25 mg PO Q8H PRN PRN Reason: Dizziness Metoprolol Tartrate (Lopressor) 25 mg PO BRKDIN [facility] Last Admin: 07/16/17 08:23 Dose: 25 mg Ondansetron HCl (Zofran Inj) 4 mg IVP DAILY [facility] Last Admin: 07/16/17 10:26 Dose: Not Given Pantoprazole Sodium (Protonix Ec Tab) 40 mg PO 0600 [facility] Last Admin: 07/16/17 06:22 Dose: 40 mg Sevelamer HCl (Renagel) 800 mg PO WM [facility] Last Admin: 07/16/17 12:29 Dose: 800 mg Tramadol HCl (Ultram) 50 mg PO Q8H PRN PRN Reason: Pain, moderate (4-7) Last Admin: 07/16/17 00:54 Dose: 50 mg Vitamin B Complex/Vit C/Folic Acid (Nephro-Christel) 1 tab PO DAILY [facility] Last Admin: 07/16/17 10:15 Dose: 1 tab - Labs Labs: 07/16/17 06:30 07/16/17 06:30
[2017-07-17] MEDS: Pantoprazole 40 mg EC Tab PO SCH (06:32)
[2017-07-17 07:18] LABS: BASO # 0.04 K/mm3 (0.0-2.0); BASO % 0.4 % (0.0-3.0); EOS # 0.8 (0.0-0.7); EOS % 7.3 % (1.5-5.0); GRAN # 5.37 (1.4-6.5); GRAN % 48.8 % (50.0-68.0); HEMATOCRIT 29.4 % (42.0-52.0); LYMPH # 3.7 (1.2-3.4); MEAN CELL VOLUME 97.7 fl (80.0-105.0); MEAN CORPUSCULAR HEMOGLOBIN 30.9 pg (25.0-35.0); MEAN CORPUSCULAR HGB CONC 31.6 g/dl (31.0-37.0); MEAN PLATELET VOLUME 10.6 fl (7.0-11.0); MONO % 9.5 % (1.0-6.0); RED CELL DISTRIBUTION WIDTH 16.2 % (11.5-14.5)
[2017-07-17 08:00] LABS: INR 1.2 (0.93-1.08)
[2017-07-17 08:02] LABS: ALB/GLOB RATIO 0.8 (1.1-1.8); BILIRUBIN,TOTAL 0.5 mg/dL (0.2-1.3); POTASSIUM 3.8 mmol/L (3.6-5.0); TOTAL PROTEIN 6.7 g/dL (5.8-8.3)
[2017-07-17] MEDS: Multivitamin Vitamin B Complex (Nephro-Vite) Tab PO SCH (09:57)
[2017-07-17] MEDS: DOLUTEGRAVIR 50 MG PO SCH (09:59)
--- NOTE | 2017-07-17 10:18 | CP.PCM.PN ---
Subjective - Date & Time of Evaluation Date of Evaluation: 07/17/17 Time of Evaluation: 07:00 - Subjective Subjective: Patient seen and examined at bedside. No acute events reported overnight. Patient to go for IR procedure and HD today. Patient reports continued pain in his right lower extremity controlled with current pain medications. Patient denies chest pain, shortness of breath, fever, nausea, fever, chills. Patient denies abdominal pain. Objective - Vital Signs/Intake and Output Vital Signs (last 24 hours): Temp Pulse Resp BP Pulse Ox 99.3 F 78 18 172/86 H 95 07/17/17 07:30 07/17/17 09:50 07/17/17 07:30 07/17/17 09:50 07/17/17 07:30 Intake and Output: 07/17/17 07/17/17 06:59 18:59 Intake Total 660 Balance 660 - Medications Medications: Current Medications Abacavir Sulfate (Ziagen) 300 mg PO BID [facility] Last Admin: 07/17/17 09:58 Dose: 300 mg Acetaminophen (Tylenol 325mg Tab) 650 mg PO Q4H PRN PRN Reason: Fever >100.4 F Last Admin: 07/13/17 12:01 Dose: 650 mg Albuterol/Ipratropium (Duoneb 3 Mg/0.5 Mg (3 Ml) Ud) 3 ml IH Q2H PRN PRN Reason: Shortness of Breath Allopurinol (Zyloprim) 300 mg PO DAILY [facility] Last Admin: 07/17/17 09:50 Dose: 300 mg Ergocalciferol (Drisdol 50,000 Intl Units Cap) 1 cap PO Q7D [facility] Last Admin: 07/13/17 09:37 Dose: 1 cap Ferrous Sulfate (Feosol) 324 mg PO BID [facility] Last Admin: 07/17/17 09:57 Dose: 324 mg Heparin Sodium (Porcine) (Heparin) 5,000 units SC Q12 [facility] PRN Reason: Protocol Last Admin: 07/16/17 21:58 Dose: 5,000 units Home Med (Home Med) 1 unit PO DAILY [facility] Last Admin: 07/17/17 09:59 Dose: Not Given Lamivudine (Epivir) 50 mg PO DAILY [facility] Last Admin: 07/16/17 11:34 Dose: 50 mg Losartan Potassium (Cozaar) 100 mg PO DAILY [facility] Last Admin: 07/17/17 09:50 Dose: 100 mg Meclizine HCl (Antivert) 25 mg PO Q8H PRN PRN Reason: Dizziness Metoprolol Tartrate (Lopressor) 25 mg PO BRKDIN [facility] Last Admin: 07/17/17 09:00 Dose: 25 mg Ondansetron HCl (Zofran Inj) 4 mg IVP DAILY [facility] Last Admin: 07/16/17 10:26 Dose: Not Given Pantoprazole Sodium (Protonix Ec Tab) 40 mg PO 0600 [facility] Last Admin: 07/17/17 06:32 Dose: 40 mg Sevelamer HCl (Renagel) 800 mg PO WM [facility] Last Admin: 07/17/17 09:56 Dose: 800 mg Tramadol HCl (Ultram) 50 mg PO Q8H PRN PRN Reason: Pain, moderate (4-7) Last Admin: 07/16/17 23:37 Dose: 50 mg Vitamin B Complex/Vit C/Folic Acid (Nephro-Christel) 1 tab PO DAILY [facility] Last Admin: 07/17/17 09:57 Dose: 1 tab - Labs Labs: 07/17/17 06:30 07/17/17 06:30 PT 13.2 SECONDS (9.4-12.5) H 07/17/17 07:30 INR 1.20 (0.93-1.08) H 07/17/17 07:30 APTT 35.0 Seconds (25.1-36.5) 07/17/17 07:30 - Constitutional Appears: Non-toxic, No Acute Distress - Head Exam Head Exam: ATRAUMATIC, NORMAL INSPECTION, NORMOCEPHALIC - Eye Exam Eye Exam: EOMI, PERRL Pupil Exam: PERRL - ENT Exam ENT Exam: Mucous Membranes Dry - Neck Exam Neck Exam: Full ROM - Respiratory Exam Respiratory Exam: Clear to Ausculation Bilateral, NORMAL BREATHING PATTERN. absent: Rales, Rhonchi, Wheezes - Cardiovascular Exam Cardiovascular Exam: REGULAR RHYTHM, +S1, +S2. absent: JVD - GI/Abdominal Exam GI & Abdominal Exam: Soft, Normal Bowel Sounds. absent: Guarding, Rigid, Tenderness - Extremities Exam Extremities Exam: absent: Calf Tenderness, Pedal Edema Additional comments: Right lower extremity ankle wrapped in surgical bandage c/d/i. Right malleolus ulcer appreciated no signs of erythema, tracking, purulent drainage. Healing showing darkened fibrotic tissue. Left lower extremity with 1st and 2nd digit amputation. Bandage of third digit c /d/i. - Neurological Exam Neurological Exam: Alert, Awake Neuro motor strength exam: Left Upper Extremity: 5, Right Upper Extremity: 5, Left Lower Extremity: 5, Right Lower Extremity: 5 - Psychiatric Exam Psychiatric exam: Normal Affect - Skin Additional comments: Right: Open ulceration on medial aspect of right medial mallelous with hyperpigmented base. No odor or purulent drainage. Open ulceration noted on lateral aspect of right heel with fibrotic base with hyperpigmented margins showing signs of necrois. No odor, purulent drainage. LEFT: Bone exposed to distal aspect of 3rd digit. An superficial ulceration noted to distal aspect of LEFT 3rd digit with dry ischemic wound bed, No drainage is noted, No pus noted. Assessment and Plan (1) Peripheral vascular disease Status: Chronic (2) ESRD (end stage renal disease) on dialysis Status: Chronic (3) HIV (human immunodeficiency virus infection) Status: Chronic (4) Pyelonephritis Status: Acute - Assessment and Plan (Free Text) Assessment: Patient is a PMH of HTN, prostate CA, HIV (last CD4 count on record 03/2016 is 349), history of osteomyelitis of left first toe S/P amputation (2015), gout, ESRD who presented with abdominal pain who was admitted fro sepsis secondary to UTI vs wound infection that has since resolved. Patient continues to be worked up for right medial foot non healing ulcer and suspected OM of the left 3rd digit. Vascular studies have shown poor flow of the left lower extremity. Patient to go for vascular procedure tomorrow for evaluation and possible intervention for PVD. Plan: 1. 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 No plain evidence of osteomyelitis - Vascular study showing - moderately abnormal MARLENI, left SFA occlusive disease, bilateral distal SFA, popliteal, tibial disease - Podiatry consulted, appreciate recs - Vascular for IR procedure today - Curbside indicates poor likelihood for surgical intervention at this time -ID following, f/u recs -Vascular consulted, f/u recs - Plan for angiogram today with possible intervention 2. Peripheral vascular disease - Vascular study showing - moderately abnormal MARLENI, left SFA occlusive disease, bilateral distal SFA, popliteal, tibial disease - Plan for angiogram today for potential intervention - Curbside indicates potential for BKA, patient informed and in understanding 3. Sepsis - resolved - Etiology: Likely secondary to UTI vs. wound infection as source - Afebrile, WBC nml, VSS - Blood culture negative - Urine culture with contamination - ID consulted, appreciate recs - 7-10 days of antibiotics - No need for antibiotics at this time or discharge - IV merrem given 7 days total - Urology consultation, appreciate recs - Recommended outpatient f/u with cystoscope - Continue current management for UTI/infection source 4. HTN - Patient currently on Cozaar 100mg from 50mg - Metoprolol Tartate 25 BID - Elevated BP of 170's-180 SBP, continue to monitor - Consider increase BB if continued elevated BP 5. Bladder wall thickening - Abd/Pelvis CT showing bladder wall thickening - Hx of prostate cancer, request records from [place] still awaiting records - PSA nml - Urology consulted, appreciate recs - No plan for cystoscopy at this time, plan for outpatient follow up 6. HIV - ID consulted and following - Ziagne, epivir, Dolutegravir as per ID 7. ESRD- Renal following for HD - HD Sunday//Sunday - Continue with renagel 8.Hx of gout - Allopurinol 9. 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 COPD - Duoneb PRN GI PPX: Protonix DVT PPX: Heparin Patient seen, examined and case discussed with attending
[2017-07-17] MEDS: LamiVUDine 10 mg/ml Syringe PO SCH (12:12)
--- NOTE | 2017-07-17 12:33 | CP.PCM.PN ---
Subjective - Date & Time of Evaluation Date of Evaluation: 07/17/17 Time of Evaluation: 11:10 - Subjective Subjective: No fevers, not in distress, afebrile. Objective - Vital Signs/Intake and Output Vital Signs (last 24 hours): Temp Pulse Resp BP Pulse Ox 99.3 F 83 18 178/89 H 95 07/17/17 07:30 07/17/17 09:00 07/17/17 07:30 07/17/17 09:00 07/17/17 07:30 Intake and Output: 07/17/17 07/17/17 06:59 18:59 Intake Total 660 Balance 660 - Medications Medications: Current Medications Abacavir Sulfate (Ziagen) 300 mg PO BID [facility] Last Admin: 07/16/17 18:23 Dose: 300 mg Acetaminophen (Tylenol 325mg Tab) 650 mg PO Q4H PRN PRN Reason: Fever >100.4 F Last Admin: 07/13/17 12:01 Dose: 650 mg Albuterol/Ipratropium (Duoneb 3 Mg/0.5 Mg (3 Ml) Ud) 3 ml IH Q2H PRN PRN Reason: Shortness of Breath Allopurinol (Zyloprim) 300 mg PO DAILY [facility] Last Admin: 07/16/17 10:16 Dose: 300 mg Ergocalciferol (Drisdol 50,000 Intl Units Cap) 1 cap PO Q7D [facility] Last Admin: 07/13/17 09:37 Dose: 1 cap Ferrous Sulfate (Feosol) 324 mg PO BID [facility] Last Admin: 07/16/17 18:22 Dose: 324 mg Heparin Sodium (Porcine) (Heparin) 5,000 units SC Q12 [facility] PRN Reason: Protocol Last Admin: 07/16/17 21:58 Dose: 5,000 units Home Med (Home Med) 1 unit PO DAILY [facility] Last Admin: 07/16/17 10:18 Dose: Not Given Lamivudine (Epivir) 50 mg PO DAILY [facility] Last Admin: 07/16/17 11:34 Dose: 50 mg Losartan Potassium (Cozaar) 100 mg PO DAILY [facility] Last Admin: 07/16/17 10:16 Dose: 100 mg Meclizine HCl (Antivert) 25 mg PO Q8H PRN PRN Reason: Dizziness Metoprolol Tartrate (Lopressor) 25 mg PO BRKDIN [facility] Last Admin: 07/17/17 09:00 Dose: 25 mg Ondansetron HCl (Zofran Inj) 4 mg IVP DAILY [facility] Last Admin: 07/16/17 10:26 Dose: Not Given Pantoprazole Sodium (Protonix Ec Tab) 40 mg PO 0600 [facility] Last Admin: 07/17/17 06:32 Dose: 40 mg Sevelamer HCl (Renagel) 800 mg PO WM [facility] Last Admin: 07/16/17 18:22 Dose: 800 mg Tramadol HCl (Ultram) 50 mg PO Q8H PRN PRN Reason: Pain, moderate (4-7) Last Admin: 07/16/17 23:37 Dose: 50 mg Vitamin B Complex/Vit C/Folic Acid (Nephro-Christel) 1 tab PO DAILY [facility] Last Admin: 07/16/17 10:15 Dose: 1 tab - Labs Labs: 07/17/17 06:30 07/17/17 06:30 PT 13.2 SECONDS (9.4-12.5) H 07/17/17 07:30 INR 1.20 (0.93-1.08) H 07/17/17 07:30 APTT 35.0 Seconds (25.1-36.5) 07/17/17 07:30 - Constitutional Appears: Non-toxic - Head Exam Head Exam: NORMAL INSPECTION - Respiratory Exam Respiratory Exam: Decreased Breath Sounds - Cardiovascular Exam Cardiovascular Exam: +S1, +S2 - GI/Abdominal Exam GI & Abdominal Exam: Soft. absent: Tenderness Assessment and Plan - Assessment and Plan (Free Text) Plan: Assessment S/P lower leg and foot cellulitis probable left foot 3rd digit osteomyelitis (exposed bone) R/O PAD right sided nephrolithiasis history of severe sepsis with acute on chronic renal failure probably due to pyelonephritis with E. coli bacteremia history of C. diff. associated diarrhea Charcot foot, left history of left 2nd toe dry gangrene Chronic renal failure on hemodialysis HTN prostate CA HIV [place] [facility] [place] [facility] [place] and virus load < 1.3 log) history of osteomyelitis of left first toe S/P amputation (2015) gout history of left foot ulcers Plan continue to monitor off antibiotics since the patient has no signs of sepsis - awaiting vascular work-up and plan for intervention on the left foot 3rd digit continue antiretroviral therapy (lamivudine, abacavir on formulary but dolutegravir should be taken by patient from his home supply) discussed with Dr. Adams previously
[2017-07-17] MEDS ORDERED: Lidocaine 2% Inj (20ml) ONE (12:52)
[2017-07-17] MEDS ORDERED: Midazolam 2 MG/2 ML VIAL ONE ×2 (12:53→14:20)
[2017-07-17] MEDS ORDERED: Iodixanol 320 MG/ML 200 ML BOTTLE IV ONE (12:54)
[2017-07-17] MEDS ORDERED: Nitroglycerin 50mg in D5W 50 MG/250 ML BOTTLE IV ONE (12:54)
[2017-07-17] MEDS ORDERED: Iodixanol 320 MG/ML 100 ML BOTTLE IV ONE (12:54)
[2017-07-17] MEDS ORDERED: Iohexol 350mgl/ml 50 ML ONE (12:54)
--- NOTE | 2017-07-17 16:35 | CP.PCM.PN ---
Subjective - Date & Time of Evaluation Date of Evaluation: 07/17/17 Time of Evaluation: 16:31 - Subjective Subjective: Follow up Nephrology Consultation: Assessment: stable foot ulcer with PVD Hypertensive Chronic Kidney Disease (I12.9) ESRD on HD via permacath (TTS) Anemia (D64.9), HTN (I12.9) HIV on HAART, Left hydroureteronephrosis with ? pyelonephritis bladder wall thickening, hx of prostate CA Plan was plan for HD today but just finished angiogram and now in PACU. hence will plan for HD short course today and then tomorrow AM. continue with nephrovite 1 tab/day aransep 125 mcg weekly for anemia. not on VDRA as PTH at goal. pt on weekly vit D lowered dose of binders Hypertension control with meds as ordered. Patient now on max dose of losartan, increased lopressor. prn hydralazine appreciate evaluation, ID following, podiatry following. MRI foot neg for osteo IR input for PVD appreciated, planned for intervention soon. Dose meds/antibiotics for ESRD status. Avoid fleets enema/magnesium based laxatives. Avoid nephrotoxins/NSAIDs Further work up/management as per primary team Thanks for allowing me to participate in care of your patient. Will follow patient with you. Please call if any Qs. Dr Yandel Arechiga Office: [phone] Chief Complaint; ankle pain reason for consult: ESRD HPI: Pt is a 71 y/o M with hx of HIV on HAART, PVD s/p angioplasty, hypertension (10-15 years), ESRD on HD (via permacath) [facility], left foot toe amputations, prostate CA presented with complaints of pain in lower abdomen and vomitting 1 episode yesterday. pt was febrile in HD yesterday when blood cx x 2 done (NEGATIVE TILL DATE) and he was given 1 gram vanco and 120 mg genta with HD. pt was advised to go to hospital which he declined. Later , he came to [facility] with mentioned complaints. he feels better now ROS: Denies chest pain, palpitation, leg swelling. no shortness of breath c/o pain at ankle s/p angio today Physical Examination: General Appearance: Comfortable, in no acute respiratory distress, co-operative .irritable Vitals reviewed and noted as below Head; Atraumatic, normocephalic ENT: no ulcers no thrush. Tongue is midline. Oropharynx: no rash or ulcers. EYES: Pupils are equal, round and reactive to light accommodation. Eye muscles and extraocular movement intact. Sclera is anicteric. Neck; supple no lymphadenopathy, no thyromegaly or bruit Lungs: Normal respiratory rate/effort. Breath sounds bilateral clear Heart: Normal rate. s1s2 normal. No rub or gallop. Extremities: no edema. No varicose veins Neurological: Patient is alert, awake and oriented to person, place and time. No focal deficit. Strength bilateral appropriate and equal Skin: Warm and dry. Normal turgor. No rash. Palpitation: Normal elasticity for age Abdomen: Abdomen is soft. Bowel sounds +. There is mild lower abdominal tenderness, no guarding/rigidity no organomegaly Psych: normal insight and normal affect/mood MSK: no joint tenderness or swelling. Digits and nails normal, has rt foot deformity noted with ulcer on medial malleolus. left foot toe amputations in past : kidney or bladder not palpable. Access: permacath Labs/imaging/EKG reviewed. Past medical history, past surgical history, family history, social history, allergy reviewed and noted as below Family hx: sister was on dialysis. Rest non-contributory Objective - Vital Signs/Intake and Output Vital Signs (last 24 hours): Temp Pulse Resp BP Pulse Ox 99.3 F 74 18 161/84 H 95 07/17/17 07:30 07/17/17 12:18 07/17/17 07:30 07/17/17 12:18 07/17/17 07:30 Intake and Output: 07/17/17 07/17/17 06:59 18:59 Intake Total 660 480 Balance 660 480 - Medications Medications: Current Medications Abacavir Sulfate (Ziagen) 300 mg PO BID [facility] Last Admin: 07/17/17 09:58 Dose: 300 mg Acetaminophen (Tylenol 325mg Tab) 650 mg PO Q4H PRN PRN Reason: Fever >100.4 F Last Admin: 07/13/17 12:01 Dose: 650 mg Albuterol/Ipratropium (Duoneb 3 Mg/0.5 Mg (3 Ml) Ud) 3 ml IH Q2H PRN PRN Reason: Shortness of Breath Allopurinol (Zyloprim) 300 mg PO DAILY [facility] Last Admin: 07/17/17 09:50 Dose: 300 mg Ergocalciferol (Drisdol 50,000 Intl Units Cap) 1 cap PO Q7D [facility] Last Admin: 07/13/17 09:37 Dose: 1 cap Ferrous Sulfate (Feosol) 324 mg PO BID [facility] Last Admin: 07/17/17 09:57 Dose: 324 mg Heparin Sodium (Porcine) (Heparin) 5,000 units SC Q12 [facility] PRN Reason: Protocol Last Admin: 07/16/17 21:58 Dose: 5,000 units Home Med (Home Med) 1 unit PO DAILY [facility] Last Admin: 07/17/17 09:59 Dose: Not Given Hydralazine HCl (Apresoline) 25 mg PO Q4 PRN PRN Reason: Other Lamivudine (Epivir) 50 mg PO DAILY [facility] Last Admin: 07/17/17 12:12 Dose: 50 mg Losartan Potassium (Cozaar) 100 mg PO DAILY [facility] Meclizine HCl (Antivert) 25 mg PO Q8H PRN PRN Reason: Dizziness Metoprolol Tartrate (Lopressor) 50 mg PO BRKDIN [facility] Last Admin: 07/17/17 12:18 Dose: 50 mg Ondansetron HCl (Zofran Inj) 4 mg IVP DAILY [facility] Last Admin: 07/16/17 10:26 Dose: Not Given Pantoprazole Sodium (Protonix Ec Tab) 40 mg PO 0600 [facility] Last Admin: 07/17/17 06:32 Dose: 40 mg Sevelamer HCl (Renagel) 800 mg PO WM [facility] Last Admin: 07/17/17 12:13 Dose: 800 mg Tramadol HCl (Ultram) 50 mg PO Q8H PRN PRN Reason: Pain, moderate (4-7) Last Admin: 07/17/17 12:14 Dose: 50 mg Vitamin B Complex/Vit C/Folic Acid (Nephro-Christel) 1 tab PO DAILY [facility] Last Admin: 07/17/17 09:57 Dose: 1 tab - Labs Labs: 07/17/17 06:30 07/17/17 06:30 PT 13.2 SECONDS (9.4-12.5) H 07/17/17 07:30 INR 1.20 (0.93-1.08) H 07/17/17 07:30 APTT 35.0 Seconds (25.1-36.5) 07/17/17 07:30
--- NOTE | 2017-07-17 19:25 | VASCULAR ---
PROCEDURE: 1. Abdominal aortogram and bilateral lower extremity runoff with left selective views. 2. Left posterior tibial artery angioplasty and focal stent placement 3. Intravascular ultrasound left posterior tibial artery HISTORY: End-stage renal disease. HIV positive. Severe peripheral vascular disease with ischemic ulceration left 3rd toe. Previous left posterior tibial artery intervention with toe amputation. PHYSICIAN(S): Emmanuel Good M.D. TECHNIQUE: The relative risks and indications of the procedure were explained to the patient and his sister and consent obtained. The patient was placed supine on the arteriogram table and the right groin prepped and draped in the usual sterile fashion. Conscious sedation and monitoring were provided throughout the procedure by a nurse. Via a right common femoral artery approach, a 5 Bulgarian sheath was placed in the right groin. Through the sheath and over a guidewire, a 5 Bulgarian flush catheter was placed in the abdominal aorta at the level of the renal arteries and a PA DSA abdominal aortogram performed. The catheter was pulled down to the aortic bifurcation and bilateral oblique DSA pelvic arteriograms performed. Overlapping bilateral lower extremity DSA arteriograms were obtained from the inguinal ligaments to the ankles. A 0.035 angled Glidewire was advanced over the tortuous bifurcation and placed in the mid left SFA. A 6 Bulgarian 65 cm destination sheath was placed in the mid left SFA. Heparin 6000 units IV and nitroglycerin in 250 mcg aliquots were given. The diffuse multifocal disease in the left posterior tibial artery was crossed with a 5 Bulgarian catheter and 0.014 wire.. Exchange was made for a 0.014 support guidewire. Left posterior tibial artery was dilated initially with a 3.0 by 200 mm balloon. Residual stenoses were seen. Intravascular ultrasound was performed which revealed residual stenoses and the PT measured between 3.5 and 4 mm. Next the left posterior tibial artery was dilated with a tapered 3.5-4 mm x 210 mm balloon. A much improved angiographic result was obtained with a residual stenosis in the distal posterior tibial artery. 3.5 x 39 mm balloon expandable coronary drug-eluting stent was placed in the distal left posterior tibial artery. Completion angiograms were obtained. The sheath was removed and hemostasis obtained. The patient tolerated the procedure well. FINDINGS: The renal arteries are atretic consistent with dialysis. The abdominal aorta and iliac arteries are tortuous and patent. Right lower extremity: The right common femoral artery is patent. The right profunda femoral artery is patent with a moderate stenosis at its origin.. The right superficial femoral artery is patent with smooth calcified disease. The right popliteal artery is patent with a 70 percent stenosis at the knee. There is severe right trifurcation and tibial occlusive disease. All 3 tibial vessels are occluded proximally. There is reconstitution of a moderate to large distal right posterior tibial artery.. Left lower extremity: Left common femoral artery is patent. The left profunda femoral artery is patent. The left superficial femoral artery is calcified and patent without radiographically significant stenosis. The left popliteal artery is patent. There is severe left trifurcation and tibial occlusive disease. There is diffuse multifocal disease of the left posterior tibial artery. The left anterior tibial and peroneal arteries are occluded. There is reconstitution of the distal left peroneal artery. There is significant left pedal occlusive disease. The left plantar arch is intact. IMPRESSION: 1.Severe bilateral trifurcation, tibial, and pedal occlusive disease. 2. Successful left posterior tibial artery angioplasty and focal stent placement as described above. 3. Intravascular ultrasound of the left posterior tibial artery.
[2017-07-18 06:00] LABS: BASO # 0.05 K/mm3 (0.0-2.0); BASO % 0.5 % (0.0-3.0); EOS # 0.7 (0.0-0.7); EOS % 7.3 % (1.5-5.0); GRAN # 4.56 (1.4-6.5); GRAN % 48.8 % (50.0-68.0); HEMATOCRIT 27.5 % (42.0-52.0); LYMPH % 32.3 % (22.0-35.0); MEAN CELL VOLUME 97.5 fl (80.0-105.0); MEAN CORPUSCULAR HEMOGLOBIN 31.2 pg (25.0-35.0); MEAN PLATELET VOLUME 9.9 fl (7.0-11.0); MONO % 11.1 % (1.0-6.0); RED CELL DISTRIBUTION WIDTH 16.1 % (11.5-14.5); WHITE BLOOD COUNT 9.4 10^3/ul (4.5-11.0)
[2017-07-18 07:05] LABS: ALB/GLOB RATIO 0.8 (1.1-1.8); BILIRUBIN,TOTAL 0.6 mg/dL (0.2-1.3); CALCIUM 8.6 mg/dL (8.4-10.5); POTASSIUM 3.7 mmol/L (3.6-5.0); TOTAL PROTEIN 6.5 g/dL (5.8-8.3)
[2017-07-18] MEDS: Pantoprazole 40 mg EC Tab PO SCH (07:37)
[2017-07-18] MEDS: Multivitamin Vitamin B Complex (Nephro-Vite) Tab PO SCH (10:35)
[2017-07-18] MEDS: LamiVUDine 10 mg/ml Syringe PO SCH (10:36)
--- NOTE | 2017-07-18 10:40 | CP.PCM.PN ---
Subjective - Date & Time of Evaluation Date of Evaluation: 07/18/17 Time of Evaluation: 10:34 - Subjective Subjective: IM Progress NOTE for Dr. Sesay/Dr. Adams Service Patient seen and evaluated at bedside. Past 24 hours patient underwent angiogram of lower extremities with vascular team. Stent placed in left tibial artery. Patient case and plan discussed with patient regarding recent vascular procedure and plan for possible surgery with podiatry. Patient complaining of left foot pain, reports recent pain med dose. Patient denies chest pain, shortness of breath, abdominal discomfort, n/v/f/c. Objective - Vital Signs/Intake and Output Vital Signs (last 24 hours): Temp Pulse Resp BP Pulse Ox 98.4 F 80 18 148/68 99 07/18/17 05:45 07/18/17 05:45 07/18/17 05:45 07/18/17 05:45 07/18/17 05:45 Intake and Output: 07/18/17 07/18/17 06:59 18:59 Intake Total 480 Output Total 1 Balance 479 - Medications Medications: Current Medications Abacavir Sulfate (Ziagen) 300 mg PO BID [facility] Last Admin: 07/17/17 18:12 Dose: Not Given Acetaminophen (Tylenol 325mg Tab) 650 mg PO Q4H PRN PRN Reason: Fever >100.4 F Last Admin: 07/13/17 12:01 Dose: 650 mg Albuterol/Ipratropium (Duoneb 3 Mg/0.5 Mg (3 Ml) Ud) 3 ml IH Q2H PRN PRN Reason: Shortness of Breath Allopurinol (Zyloprim) 300 mg PO DAILY [facility] Last Admin: 07/17/17 09:50 Dose: 300 mg Ergocalciferol (Drisdol 50,000 Intl Units Cap) 1 cap PO Q7D [facility] Last Admin: 07/13/17 09:37 Dose: 1 cap Ferrous Sulfate (Feosol) 324 mg PO BID [facility] Last Admin: 07/17/17 18:11 Dose: Not Given Heparin Sodium (Porcine) (Heparin) 5,000 units SC Q12 [facility] PRN Reason: Protocol Last Admin: 07/16/17 21:58 Dose: 5,000 units Home Med (Home Med) 1 unit PO DAILY [facility] Last Admin: 07/17/17 09:59 Dose: Not Given Hydralazine HCl (Apresoline) 25 mg PO Q4 PRN PRN Reason: Other Last Admin: 07/17/17 22:07 Dose: 25 mg Lamivudine (Epivir) 50 mg PO DAILY [facility] Last Admin: 07/17/17 12:12 Dose: 50 mg Losartan Potassium (Cozaar) 100 mg PO DAILY [facility] Meclizine HCl (Antivert) 25 mg PO Q8H PRN PRN Reason: Dizziness Metoprolol Tartrate (Lopressor) 50 mg PO BRKDIN [facility] Last Admin: 07/18/17 08:02 Dose: Not Given Ondansetron HCl (Zofran Inj) 4 mg IVP DAILY [facility] Last Admin: 07/17/17 18:12 Dose: Not Given Pantoprazole Sodium (Protonix Ec Tab) 40 mg PO 0600 [facility] Last Admin: 07/18/17 07:37 Dose: Not Given Sevelamer HCl (Renagel) 800 mg PO WM [facility] Last Admin: 07/18/17 08:03 Dose: Not Given Tramadol HCl (Ultram) 50 mg PO Q8H PRN PRN Reason: Pain, moderate (4-7) Last Admin: 07/17/17 22:07 Dose: 50 mg Vitamin B Complex/Vit C/Folic Acid (Nephro-Christel) 1 tab PO DAILY [facility] Last Admin: 07/17/17 09:57 Dose: 1 tab - Labs Labs: 07/18/17 05:30 07/18/17 05:30 PT 13.2 SECONDS (9.4-12.5) H 07/17/17 07:30 INR 1.20 (0.93-1.08) H 07/17/17 07:30 APTT 35.0 Seconds (25.1-36.5) 07/17/17 07:30 - Constitutional Appears: Non-toxic, No Acute Distress - Head Exam Head Exam: ATRAUMATIC, NORMAL INSPECTION, NORMOCEPHALIC - Eye Exam Eye Exam: EOMI, PERRL - ENT Exam ENT Exam: Mucous Membranes Moist - Neck Exam Neck Exam: Full ROM - Respiratory Exam Respiratory Exam: Clear to Ausculation Bilateral, NORMAL BREATHING PATTERN. absent: Rales, Rhonchi, Wheezes - Cardiovascular Exam Cardiovascular Exam: REGULAR RHYTHM, +S1, +S2 - GI/Abdominal Exam GI & Abdominal Exam: Soft, Normal Bowel Sounds. absent: Guarding, Rigid, Tenderness - Extremities Exam Extremities Exam: absent: Pedal Edema, Tenderness - Neurological Exam Neurological Exam: Alert, Awake, Oriented x3 Neuro motor strength exam: Left Upper Extremity: 5, Right Upper Extremity: 5, Left Lower Extremity: 5, Right Lower Extremity: 5 - Psychiatric Exam Psychiatric exam: Normal Affect, Normal Mood - Skin Skin Exam: Dry, Intact Additional comments: Right: Open ulceration on medial aspect of right medial mallelous with hyperpigmented base. No odor or purulent drainage. Open ulceration noted on lateral aspect of right heel with fibrotic base with hyperpigmented margins showing signs of necrois. No odor, purulent drainage. LEFT: Bone exposed to distal aspect of 3rd digit. An superficial ulceration noted to distal aspect of LEFT 3rd digit with dry ischemic wound bed, No drainage is noted, No pus noted. Assessment and Plan (1) Peripheral vascular disease Status: Chronic (2) ESRD (end stage renal disease) on dialysis Status: Chronic (3) HIV (human immunodeficiency virus infection) Status: Chronic (4) Pyelonephritis Status: Acute - Assessment and Plan (Free Text) Assessment: Patient is a PMH of HTN, prostate CA, HIV (last CD4 count on record 03/2016 is 349), history of osteomyelitis of left first toe S/P amputation (2015), gout, ESRD who presented with abdominal pain who was admitted fro sepsis secondary to UTI vs wound infection that has since resolved. Patient continues to be worked up for right medial foot non healing ulcer and suspected OM of the left 3rd digit. Vascular studies have shown poor flow of the left lower extremity. Patient s/p angiogram with stent placement of left posterior tibial artery. Potential surgery with podiatry tomorrow in AM. Plan: 1. 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 No plain evidence of osteomyelitis - Vascular study showing - moderately abnormal MARLENI, left SFA occlusive disease, bilateral distal SFA, popliteal, tibial disease - Podiatry consulted, appreciate recs - curbside indicates surgery tomorrow in AM -ID following, f/u recs -Vascular consulted, f/u recs - Angiogram yesterday with stent placement of left tibial artery 2. Peripheral vascular disease - Vascular study showing - moderately abnormal MARLENI, left SFA occlusive disease, bilateral distal SFA, popliteal, tibial disease - Angiogram showing severe b/l trifuraction, tibial, and pedal occlusive disease - Successful left posterior tibial artery angioplasty and focal stent placement - Vascular surgery consulted for PAD possible fem pop vs. fem tib bypass 3. Sepsis - resolved - Etiology: Likely secondary to UTI vs. wound infection as source - Afebrile, WBC nml, VSS - IV merrem given 7 days total - Urology consultation, appreciate recs - Recommended outpatient f/u with cystoscope 4. HTN - Patient currently on Cozaar 100mg from 50mg - Metoprolol Tartate 25 BID - Elevated BP of 170's-180 SBP, continue to monitor - Consider increase BB if continued elevated BP - continue to monitor 5. Bladder wall thickening - Abd/Pelvis CT showing bladder wall thickening - Hx of prostate cancer, request records from [place] still awaiting records - PSA nml - Urology consulted, appreciate recs - No plan for cystoscopy at this time, plan for outpatient follow up 6. HIV - ID consulted and following - Ziagne, epivir, Dolutegravir as per ID 7. ESRD- Renal following for HD - HD Sunday//Sunday - Continue with renagel 8.Hx of gout - Allopurinol 9. 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 COPD - Duoneb PRN GI PPX: Protonix DVT PPX: Heparin Patient seen, examined and case discussed with attending
--- NOTE | 2017-07-18 10:46 | CP.PCM.PN ---
Subjective - Date & Time of Evaluation Date of Evaluation: 07/18/17 Time of Evaluation: 09:55 - Subjective Subjective: Patient is still complaining of intermittent pain on the left foot, no fevers overnight, no diarrhea, no nausea. Objective - Vital Signs/Intake and Output Vital Signs (last 24 hours): Temp Pulse Resp BP Pulse Ox 98.4 F 80 18 148/68 99 07/18/17 05:45 07/18/17 05:45 07/18/17 05:45 07/18/17 05:45 07/18/17 05:45 Intake and Output: 07/17/17 07/18/17 18:59 06:59 Intake Total 480 480 Output Total 1 Balance 480 479 - Medications Medications: Current Medications Abacavir Sulfate (Ziagen) 300 mg PO BID [facility] Last Admin: 07/17/17 18:12 Dose: Not Given Acetaminophen (Tylenol 325mg Tab) 650 mg PO Q4H PRN PRN Reason: Fever >100.4 F Last Admin: 07/13/17 12:01 Dose: 650 mg Albuterol/Ipratropium (Duoneb 3 Mg/0.5 Mg (3 Ml) Ud) 3 ml IH Q2H PRN PRN Reason: Shortness of Breath Allopurinol (Zyloprim) 300 mg PO DAILY [facility] Last Admin: 07/17/17 09:50 Dose: 300 mg Ergocalciferol (Drisdol 50,000 Intl Units Cap) 1 cap PO Q7D [facility] Last Admin: 07/13/17 09:37 Dose: 1 cap Ferrous Sulfate (Feosol) 324 mg PO BID [facility] Last Admin: 07/17/17 18:11 Dose: Not Given Heparin Sodium (Porcine) (Heparin) 5,000 units SC Q12 [facility] PRN Reason: Protocol Last Admin: 07/16/17 21:58 Dose: 5,000 units Home Med (Home Med) 1 unit PO DAILY [facility] Last Admin: 07/17/17 09:59 Dose: Not Given Hydralazine HCl (Apresoline) 25 mg PO Q4 PRN PRN Reason: Other Last Admin: 07/17/17 22:07 Dose: 25 mg Lamivudine (Epivir) 50 mg PO DAILY [facility] Last Admin: 07/17/17 12:12 Dose: 50 mg Losartan Potassium (Cozaar) 100 mg PO DAILY [facility] Meclizine HCl (Antivert) 25 mg PO Q8H PRN PRN Reason: Dizziness Metoprolol Tartrate (Lopressor) 50 mg PO BRKDIN [facility] Last Admin: 07/17/17 18:11 Dose: Not Given Ondansetron HCl (Zofran Inj) 4 mg IVP DAILY [facility] Last Admin: 07/17/17 18:12 Dose: Not Given Pantoprazole Sodium (Protonix Ec Tab) 40 mg PO 0600 [facility] Last Admin: 07/17/17 06:32 Dose: 40 mg Sevelamer HCl (Renagel) 800 mg PO WM [facility] Last Admin: 07/17/17 18:12 Dose: Not Given Tramadol HCl (Ultram) 50 mg PO Q8H PRN PRN Reason: Pain, moderate (4-7) Last Admin: 07/17/17 22:07 Dose: 50 mg Vitamin B Complex/Vit C/Folic Acid (Nephro-Christel) 1 tab PO DAILY [facility] Last Admin: 07/17/17 09:57 Dose: 1 tab - Labs Labs: 07/18/17 05:30 07/17/17 06:30 PT 13.2 SECONDS (9.4-12.5) H 07/17/17 07:30 INR 1.20 (0.93-1.08) H 07/17/17 07:30 APTT 35.0 Seconds (25.1-36.5) 07/17/17 07:30 - Constitutional Appears: Non-toxic, Chronically Ill - Head Exam Head Exam: NORMAL INSPECTION - ENT Exam ENT Exam: Mucous Membranes Moist - Neck Exam Neck Exam: absent: Lymphadenopathy, Meningismus - Respiratory Exam Respiratory Exam: Decreased Breath Sounds - Cardiovascular Exam Cardiovascular Exam: +S1, +S2 - GI/Abdominal Exam GI & Abdominal Exam: Soft. absent: Tenderness Assessment and Plan - Assessment and Plan (Free Text) Plan: Assessment S/P lower leg and foot cellulitis probable left foot 3rd digit osteomyelitis (exposed bone) severe PAD S/P angioplasty of the left tibial artery POD #1 right sided nephrolithiasis history of severe sepsis with acute on chronic renal failure probably due to pyelonephritis with E. coli bacteremia history of C. diff. associated diarrhea Charcot foot, left history of left 2nd toe dry gangrene Chronic renal failure on hemodialysis HTN prostate CA HIV (patient goes to the [place] with last CD4 count here at [facility] 03/2016 349 and virus load < 1.3 log) history of osteomyelitis of left first toe S/P amputation (2015) gout history of left foot ulcers Plan continue to monitor off antibiotics since the patient has no signs of sepsis - awaiting plan for intervention on the left foot 3rd digit by Podiatry continue antiretroviral therapy (lamivudine, abacavir on formulary but dolutegravir should be taken by patient from his home supply)
[2017-07-18] MEDS: DOLUTEGRAVIR 50 MG PO SCH (10:48)
--- NOTE | 2017-07-18 14:22 | CP.PCM.CON ---
History of Present Illness - History of Present Illness History of Present Illness: Surgery Consult Note for Dr. Rubio The pt is a 72yo AA M w PMH of ESRD on HD TTS, HIV, HTN, Prostate CA, Anemia and gout presents with nonhealing R LE foot wound and LLE pain. The pt reports that he has been dealing with the leg pain for some time now, and has progressively had increased difficulty with ambulation. IR intervention yesterday revealed b/l trifucation, tibial, and pedal occlusive disease, stent was placed over Tibial artery on the Left at that time. The pt at baseline is able to ambulate with a cane at home. Pt currently admits to b/l LE pain, R worse than left. Pt denies n/v/f/c, chest pain, dyspnea, headache, leg edema, easy bruising, easy bleeding, changes in vision, diarrhea, constipation. PMH: ESRD on HD TTS, HIV, HTN, Prostate CA, gout, Anemia PSH: Left toe amputation, L AV fistula, Postatectomy, Right hand abscess I&D Allergies: NKDA Meds: reviewed Fam: reviewed and non-contributory Social: denies nicotine, etoh, illicit drug use/ Review of Systems - Constitutional Constitutional: absent: Chills, Fever - EENT Eyes: absent: Blurred Vision, Change in Vision - Cardiovascular Cardiovascular: Claudication, Leg Ulcers, Pedal Edema. absent: Chest Pain, Chest Pain at Rest, Leg Edema - Respiratory Respiratory: absent: Cough, Dyspnea - Gastrointestinal Gastrointestinal: absent: Abdominal Pain, Bloating, Constipation, Diarrhea - Integumentary Integumentary: Non-Healing Lesions, Skin Ulcer, Sores Additional comments: b/l Lower extremities - Neurological Neurological: absent: Dizziness, Headaches Past Patient History - Infectious Disease Hx of Infectious Diseases: None - Tetanus Immunizations Tetanus Immunization: Up to Date - Past Medical History & Family History Past Medical History?: Yes - Past Social History Smoking Status: Never Smoked - CARDIAC Hx Cardiac Disorders: Yes Hx Hypertension: Yes - PULMONARY Hx Respiratory Disorders: No - NEUROLOGICAL Hx Neurological Disorder: No - HEENT Hx HEENT Problems: No - RENAL Hx Renal Failure: Yes - ENDOCRINE/METABOLIC Hx Diabetes Mellitus Type 1: No Hx Diabetes Mellitus Type 2: No - HEMATOLOGICAL/ONCOLOGICAL Hx Blood Transfusions: No - INTEGUMENTARY Hx Dermatological Problems: Yes (CELLULITIS OF L ANKLE 8-6-16.AMPUTATED 1ST TOE LEFT FOOT.,I/D RT HAND ABCES) Other/Comment: Ulcer of second toe BL - MUSCULOSKELETAL/RHEUMATOLOGICAL Hx Musculoskeletal Disorders: Yes - GASTROINTESTINAL Hx Gastrointestinal Disorders: No - GENITOURINARY/GYNECOLOGICAL Hx Genitourinary Disorders: Yes Hx Prostate Cancer: Yes - PSYCHIATRIC Hx Psychophysiologic Disorder: No Hx Substance Use: No - SURGICAL HISTORY Hx Amputation: Yes (Left first toe) Other/Comment: prostatectomy, incision and drainage of right hand abscess - ANESTHESIA Hx Anesthesia Reactions: No Hx Malignant Hyperthermia: No Meds Allergies/Adverse Reactions: Allergies Allergy/AdvReac Type Severity Reaction Status Date / Time No Known Allergies Allergy Verified 04/29/17 17:01 - Medications Medications: Current Medications Abacavir Sulfate (Ziagen) 300 mg PO BID [facility] Last Admin: 07/18/17 10:36 Dose: 300 mg Acetaminophen (Tylenol 325mg Tab) 650 mg PO Q4H PRN PRN Reason: Fever >100.4 F Last Admin: 07/13/17 12:01 Dose: 650 mg Albuterol/Ipratropium (Duoneb 3 Mg/0.5 Mg (3 Ml) Ud) 3 ml IH Q2H PRN PRN Reason: Shortness of Breath Allopurinol (Zyloprim) 300 mg PO DAILY [facility] Last Admin: 07/18/17 10:35 Dose: 300 mg Ergocalciferol (Drisdol 50,000 Intl Units Cap) 1 cap PO Q7D [facility] Last Admin: 07/13/17 09:37 Dose: 1 cap Ferrous Sulfate (Feosol) 324 mg PO BID [facility] Last Admin: 07/18/17 10:35 Dose: 324 mg Heparin Sodium (Porcine) (Heparin) 5,000 units SC Q12 [facility] PRN Reason: Protocol Last Admin: 07/18/17 10:36 Dose: 5,000 units Home Med (Home Med) 1 unit PO DAILY [facility] Last Admin: 07/18/17 10:48 Dose: Not Given Hydralazine HCl (Apresoline) 25 mg PO Q4 PRN PRN Reason: Other Last Admin: 07/17/17 22:07 Dose: 25 mg Lamivudine (Epivir) 50 mg PO DAILY [facility] Last Admin: 07/18/17 10:36 Dose: 50 mg Losartan Potassium (Cozaar) 100 mg PO DAILY [facility] Last Admin: 07/18/17 10:35 Dose: 100 mg Meclizine HCl (Antivert) 25 mg PO Q8H PRN PRN Reason: Dizziness Metoprolol Tartrate (Lopressor) 50 mg PO BRKDIN [facility] Last Admin: 07/18/17 08:02 Dose: Not Given Ondansetron HCl (Zofran Inj) 4 mg IVP DAILY [facility] Last Admin: 07/18/17 10:35 Dose: 4 mg Pantoprazole Sodium (Protonix Ec Tab) 40 mg PO 0600 [facility] Last Admin: 07/18/17 07:37 Dose: Not Given Sevelamer HCl (Renagel) 800 mg PO WM [facility] Last Admin: 07/18/17 12:18 Dose: 800 mg Tramadol HCl (Ultram) 50 mg PO Q8H PRN PRN Reason: Pain, moderate (4-7) Last Admin: 07/17/17 22:07 Dose: 50 mg Vitamin B Complex/Vit C/Folic Acid (Nephro-Christel) 1 tab PO DAILY [facility] Last Admin: 07/18/17 10:35 Dose: 1 tab Physical Exam - Constitutional Appears: Well, Non-toxic, No Acute Distress - Head Exam Head Exam: ATRAUMATIC, NORMAL INSPECTION - Eye Exam Eye Exam: EOMI, Normal appearance - ENT Exam ENT Exam: Mucous Membranes Moist, Normal Exam - Respiratory Exam Respiratory Exam: Clear to Auscultation Bilateral, NORMAL BREATHING PATTERN - Cardiovascular Exam Cardiovascular Exam: +S1, +S2 - GI/Abdominal Exam GI & Abdominal Exam: Normal Bowel Sounds, Soft. absent: Tenderness - Rectal Exam Rectal Exam: Deferred - Extremities Exam Extremities exam: Positive for: joint swelling, tenderness. Negative for: pedal pulses present Additional comments: No DP/PT pulses palpable b/l. L PT/DP pulse found on doppler, R PT pulse found on doppler, R DP not dopplerable. - Neurological Exam Neurological exam: Alert, Oriented x3 - Skin Skin Exam: Dry, Intact, Normal Color Results - Vital Signs Recent Vital Signs: Last Vital Signs Temp 99.6 F 07/18/17 12:00 Pulse 92 H 07/18/17 12:00 Resp 20 07/18/17 12:00 BP 159/72 H 07/18/17 12:00 Pulse Ox 99 07/18/17 05:45 - Labs Result Diagrams: 07/18/17 05:30 07/18/17 05:30 Labs: Laboratory Results - last 24 hr 07/18/17 07/18/17 05:30 05:30 WBC 9.4 RBC 2.82 L Hgb 8.8 L Hct 27.5 L MCV 97.5 MCH 31.2 MCHC 32.0 RDW 16.1 H Plt Count 333 MPV 9.9 Gran % 48.8 L Lymph % (Auto) 32.3 [place] % (Auto) 11.1 H Eos % (Auto) 7.3 H Baso % (Auto) 0.5 Gran # 4.56 Lymph # 3.0 [place] # 1.0 H Eos # 0.7 Baso # 0.05 Sodium 138 Potassium 3.7 Chloride 100 Carbon Dioxide 29 Anion Gap 12 BUN 27 H Creatinine 5.1 H Est GFR ( Amer) 14 Est GFR (Non-Af Amer) 11 Random Glucose 79 Calcium 8.6 Total Bilirubin 0.6 AST 50 ALT 21 Alkaline Phosphatase 83 Total Protein 6.5 Albumin 2.8 L Globulin 3.7 Albumin/Globulin Ratio 0.8 L Assessment & Plan - Assessment and Plan (Free Text) Assessment: 72yo M w/ bilateral LE Peripheral Arterial Disease Plan: -MRI showed no signs of Osteomyelitis -IR stent of Left Tibial Artery, angiography revealed b/l trifurcation, tibial, and pedal disease -Reevaluate in AM -Continue podiatry management of Foot -will discuss with attending Damon Howard, PGY 1 - Date & Time Date: 07/18/17 Time: 14:26
--- NOTE | 2017-07-18 14:57 | CP.PCM.PN ---
Subjective - Date & Time of Evaluation Date of Evaluation: 07/18/17 Time of Evaluation: 14:55 - Subjective Subjective: Follow up Nephrology Consultation: Assessment: stable foot ulcer with PVD and ? left foor 3rd toe osteo Hypertensive Chronic Kidney Disease (I12.9) ESRD on HD via permacath (TTS) Anemia (D64.9), HTN (I12.9) HIV on HAART, Left hydroureteronephrosis bladder wall thickening, hx of prostate CA Plan had HD today then tomorrow AM as per TTS schedule. continue with nephrovite 1 tab/day aransep 125 mcg weekly for anemia. not on VDRA as PTH at goal. pt on weekly vit D lowered dose of binders Hypertension control with meds as ordered. Patient now on max dose of losartan, increased lopressor. prn hydralazine appreciate evaluation, ID following, podiatry following. MRI foot neg for osteo IR input for PVD appreciated Dose meds/antibiotics for ESRD status. Avoid fleets enema/magnesium based laxatives. Avoid nephrotoxins/NSAIDs Further work up/management as per primary team Thanks for allowing me to participate in care of your patient. Will follow patient with you. Please call if any Qs. Dr Yandel Arechiga Office: [phone] Chief Complaint; ankle pain reason for consult: ESRD HPI: Pt is a 71 y/o M with hx of HIV on HAART, PVD s/p angioplasty, hypertension (10-15 years), ESRD on HD (via permacath) TTS @ [facility], left foot toe amputations, prostate CA presented with complaints of pain in lower abdomen and vomitting 1 episode yesterday. pt was febrile in HD yesterday when blood cx x 2 done (NEGATIVE TILL DATE) and he was given 1 gram vanco and 120 mg genta with HD. pt was advised to go to hospital which he declined. Later , he came to [facility] with mentioned complaints. he feels better now ROS: Denies chest pain, palpitation, leg swelling. no shortness of breath c/o pain at ankle s/p angio 07/18/17 and interventions on LLE by IR Physical Examination: General Appearance: Comfortable, in no acute respiratory distress, co-operative Vitals reviewed and noted as below Head; Atraumatic, normocephalic ENT: no ulcers no thrush. Tongue is midline. Oropharynx: no rash or ulcers. EYES: Pupils are equal, round and reactive to light accommodation. Eye muscles and extraocular movement intact. Sclera is anicteric. Neck; supple no lymphadenopathy, no thyromegaly or bruit Lungs: Normal respiratory rate/effort. Breath sounds bilateral clear Heart: Normal rate. s1s2 normal. No rub or gallop. Extremities: no edema. No varicose veins Neurological: Patient is alert, awake and oriented to person, place and time. No focal deficit. Strength bilateral appropriate and equal Skin: Warm and dry. Normal turgor. No rash. Palpitation: Normal elasticity for age Abdomen: Abdomen is soft. Bowel sounds +. There is mild lower abdominal tenderness, no guarding/rigidity no organomegaly Psych: normal insight and normal affect/mood MSK: no joint tenderness or swelling. Digits and nails normal, has rt foot deformity noted with ulcer on medial malleolus. left foot toe amputations in past : kidney or bladder not palpable. Access: permacath Labs/imaging/EKG reviewed. Past medical history, past surgical history, family history, social history, allergy reviewed and noted as below Family hx: sister was on dialysis. Rest non-contributory Objective - Vital Signs/Intake and Output Vital Signs (last 24 hours): Temp Pulse Resp BP Pulse Ox 99.6 F 92 H 20 159/72 H 99 07/18/17 12:00 07/18/17 12:00 07/18/17 12:00 07/18/17 12:00 07/18/17 05:45 Intake and Output: 07/18/17 07/18/17 06:59 18:59 Intake Total 480 Output Total 1 Balance 479 - Medications Medications: Current Medications Abacavir Sulfate (Ziagen) 300 mg PO BID [facility] Last Admin: 07/18/17 10:36 Dose: 300 mg Acetaminophen (Tylenol 325mg Tab) 650 mg PO Q4H PRN PRN Reason: Fever >100.4 F Last Admin: 07/13/17 12:01 Dose: 650 mg Albuterol/Ipratropium (Duoneb 3 Mg/0.5 Mg (3 Ml) Ud) 3 ml IH Q2H PRN PRN Reason: Shortness of Breath Allopurinol (Zyloprim) 300 mg PO DAILY [facility] Last Admin: 07/18/17 10:35 Dose: 300 mg Ergocalciferol (Drisdol 50,000 Intl Units Cap) 1 cap PO Q7D [facility] Last Admin: 07/13/17 09:37 Dose: 1 cap Ferrous Sulfate (Feosol) 324 mg PO BID [facility] Last Admin: 07/18/17 10:35 Dose: 324 mg Heparin Sodium (Porcine) (Heparin) 5,000 units SC Q12 [facility] PRN Reason: Protocol Last Admin: 07/18/17 10:36 Dose: 5,000 units Home Med (Home Med) 1 unit PO DAILY [facility] Last Admin: 07/18/17 10:48 Dose: Not Given Hydralazine HCl (Apresoline) 25 mg PO Q4 PRN PRN Reason: Other Last Admin: 07/17/17 22:07 Dose: 25 mg Lamivudine (Epivir) 50 mg PO DAILY [facility] Last Admin: 07/18/17 10:36 Dose: 50 mg Losartan Potassium (Cozaar) 100 mg PO DAILY [facility] Last Admin: 07/18/17 10:35 Dose: 100 mg Meclizine HCl (Antivert) 25 mg PO Q8H PRN PRN Reason: Dizziness Metoprolol Tartrate (Lopressor) 50 mg PO BRKDIN [facility] Last Admin: 07/18/17 08:02 Dose: Not Given Ondansetron HCl (Zofran Inj) 4 mg IVP DAILY [facility] Last Admin: 07/18/17 10:35 Dose: 4 mg Pantoprazole Sodium (Protonix Ec Tab) 40 mg PO 0600 [facility] Last Admin: 07/18/17 07:37 Dose: Not Given Sevelamer HCl (Renagel) 800 mg PO WM [facility] Last Admin: 07/18/17 12:18 Dose: 800 mg Tramadol HCl (Ultram) 50 mg PO Q8H PRN PRN Reason: Pain, moderate (4-7) Last Admin: 07/17/17 22:07 Dose: 50 mg Vitamin B Complex/Vit C/Folic Acid (Nephro-Christel) 1 tab PO DAILY [facility] Last Admin: 07/18/17 10:35 Dose: 1 tab - Labs Labs: 07/18/17 05:30 07/18/17 05:30 PT 13.2 SECONDS (9.4-12.5) H 07/17/17 07:30 INR 1.20 (0.93-1.08) H 07/17/17 07:30 APTT 35.0 Seconds (25.1-36.5) 07/17/17 07:30
[2017-07-18] MEDS ORDERED: Darbepoetin Alfa 100 mcg/ml Inj IVP ONE (15:15)
--- NOTE | 2017-07-18 15:24 | CP.PCM.PN ---
<Mirta Driscoll - Last Filed: 07/18/17 15:17> Subjective - Date & Time of Evaluation Date of Evaluation: 07/18/17 Time of Evaluation: 15:17 - Subjective Subjective: 71 y/o male seen and evaluated at bedside this morning in dialysis with attending Dr. Dunn for open ulcerations to bilateral lower extremity. Patient denies of any acute overnight events. Patient appears AAOx3 and in NAD. Patient denies of any other pedal complains. Patient states that he is aware of the left foot procedure tomorrow. Denies of any recent F/N/V/C/SOB/CP. Objective - Vital Signs/Intake and Output Vital Signs (last 24 hours): Temp Pulse Resp BP Pulse Ox 99.6 F 92 H 20 159/72 H 99 07/18/17 12:00 07/18/17 12:00 07/18/17 12:00 07/18/17 12:00 07/18/17 05:45 Intake and Output: 07/18/17 07/18/17 06:59 18:59 Intake Total 480 Output Total 1 Balance 479 - Medications Medications: Current Medications Abacavir Sulfate (Ziagen) 300 mg PO BID [facility] Last Admin: 07/18/17 10:36 Dose: 300 mg Acetaminophen (Tylenol 325mg Tab) 650 mg PO Q4H PRN PRN Reason: Fever >100.4 F Last Admin: 07/13/17 12:01 Dose: 650 mg Albuterol/Ipratropium (Duoneb 3 Mg/0.5 Mg (3 Ml) Ud) 3 ml IH Q2H PRN PRN Reason: Shortness of Breath Allopurinol (Zyloprim) 300 mg PO DAILY [facility] Last Admin: 07/18/17 10:35 Dose: 300 mg Darbepoetin Mario (Aranesp) 25 mcg IVP ONCE ONE Stop: 07/18/17 15:31 Ergocalciferol (Drisdol 50,000 Intl Units Cap) 1 cap PO Q7D [facility] Last Admin: 07/13/17 09:37 Dose: 1 cap Ferrous Sulfate (Feosol) 324 mg PO BID [facility] Last Admin: 07/18/17 10:35 Dose: 324 mg Heparin Sodium (Porcine) (Heparin) 5,000 units SC Q12 [facility] PRN Reason: Protocol Last Admin: 07/18/17 10:36 Dose: 5,000 units Home Med (Home Med) 1 unit PO DAILY [facility] Last Admin: 07/18/17 10:48 Dose: Not Given Hydralazine HCl (Apresoline) 25 mg PO Q4 PRN PRN Reason: Other Last Admin: 07/17/17 22:07 Dose: 25 mg Lamivudine (Epivir) 50 mg PO DAILY [facility] Last Admin: 07/18/17 10:36 Dose: 50 mg Losartan Potassium (Cozaar) 100 mg PO DAILY [facility] Last Admin: 07/18/17 10:35 Dose: 100 mg Meclizine HCl (Antivert) 25 mg PO Q8H PRN PRN Reason: Dizziness Metoprolol Tartrate (Lopressor) 50 mg PO BRKDIN [facility] Last Admin: 07/18/17 08:02 Dose: Not Given Ondansetron HCl (Zofran Inj) 4 mg IVP DAILY [facility] Last Admin: 07/18/17 10:35 Dose: 4 mg Pantoprazole Sodium (Protonix Ec Tab) 40 mg PO 0600 [facility] Last Admin: 07/18/17 07:37 Dose: Not Given Sevelamer HCl (Renagel) 800 mg PO WM [facility] Last Admin: 07/18/17 12:18 Dose: 800 mg Tramadol HCl (Ultram) 50 mg PO Q8H PRN PRN Reason: Pain, moderate (4-7) Last Admin: 07/17/17 22:07 Dose: 50 mg Vitamin B Complex/Vit C/Folic Acid (Nephro-Christel) 1 tab PO DAILY [facility] Last Admin: 07/18/17 10:35 Dose: 1 tab - Labs Labs: 07/18/17 05:30 07/18/17 05:30 PT 13.2 SECONDS (9.4-12.5) H 07/17/17 07:30 INR 1.20 (0.93-1.08) H 07/17/17 07:30 APTT 35.0 Seconds (25.1-36.5) 07/17/17 07:30 - Constitutional Appears: Well, Non-toxic, No Acute Distress - Extremities Exam Additional comments: Bilateral lower extremity examination: VASC: B/L non-palpable pedal pulses; foot is cool distally at the level of the distal metatarsals and toes; delayed capillary fill time is noted; dry gangrene is noted at the Left 2nd digit DERM: Right: Open ulceration noted to Medial aspect of right Medial malleolus measuring 3cm x 2cm x 0.2cm with hyperpigmented base. No malodor noted. No purulent drainage noted. No tracking noted. No probe to bone. Mild erythema to margins <0.5cm. No sign of acute infection is noted Another open ulceration noted to lateral aspect of right heel measuring 2cm x 0.5cm x 0.2cm with fibrotic base with hyperpigmented margins showing signs of necrosis, No malodor noted. No purulent drainage noted. No tracking noted. No probe to bone. Mild erythema to margins <0.5cm. No sign of acute infection is noted LEFT: Bone exposed to distal aspect of 3rd digit. An superficial ulceration noted to distal aspect of LEFT 3rd digit with dry ischemic wound bed, No drainage is noted, No pus noted. NEURO: protective sensation is grossly diminished ORTHO: RIGHT medial aspect of the ankle and medial aspect of the rearfoot and midfoot are tender upon palpation; gross midfoot collapse is appreciated secondary to Charcot. LEFT 1st and 2nd digit amputation noted. - Neurological Exam Neurological Exam: Alert, Awake, Oriented x3 - Psychiatric Exam Psychiatric exam: Normal Affect, Normal Mood Assessment and Plan - Assessment and Plan (Free Text) Assessment: 71 yo male patient presenting with non-healing open ulcerations to bilateral feet, exposed bone to left 3rd digit Plan: Patient seen and evaluated at bedside with attending Dr. Caldwell Labs and vitals were reviewed; afebrile WBC @ 9.4 today Right foot cleansed with normal sterile saline Right foot dressed with betadine, DSD Left foot cleansed with normal sterile saline Left 3rd digit dressed with betadine, DSD Multipodus boot to be applied at all times while in bed Arterial duplex: MARLENI - R: 0.51 and L: 0.67 Vascular consult - recommendations appreciated -Successful left posterior tibial artery angioplasty and focal stent placement yesterday Cultures show Corynebacterium and Coag Negative Staph Xray and MRI - reveals no acute fracture or evidence of OM. left foot 3rd digit bone is exposed - OM is highly likely Patient to go to OR tomorrow for partial 3rd digit amputation Patient is aware of the amputation and demonstrated verbal understanding Podiatry will continue to follow while remains in house. <Jerrod Dunn - Last Filed: 07/18/17 16:15> Objective - Vital Signs/Intake and Output Vital Signs (last 24 hours): Temp Pulse Resp BP Pulse Ox 99.6 F 92 H 20 159/72 H 99 07/18/17 12:00 07/18/17 12:00 07/18/17 12:00 07/18/17 12:00 07/18/17 05:45 Intake and Output: 07/18/17 07/18/17 06:59 18:59 Intake Total 480 Output Total 1 Balance 479 - Medications Medications: Current Medications Abacavir Sulfate (Ziagen) 300 mg PO BID [facility] Last Admin: 07/18/17 10:36 Dose: 300 mg Acetaminophen (Tylenol 325mg Tab) 650 mg PO Q4H PRN PRN Reason: Fever >100.4 F Last Admin: 07/13/17 12:01 Dose: 650 mg Albuterol/Ipratropium (Duoneb 3 Mg/0.5 Mg (3 Ml) Ud) 3 ml IH Q2H PRN PRN Reason: Shortness of Breath Allopurinol (Zyloprim) 300 mg PO DAILY [facility] Last Admin: 07/18/17 10:35 Dose: 300 mg Ergocalciferol (Drisdol 50,000 Intl Units Cap) 1 cap PO Q7D [facility] Last Admin: 07/13/17 09:37 Dose: 1 cap Ferrous Sulfate (Feosol) 324 mg PO BID [facility] Last Admin: 07/18/17 10:35 Dose: 324 mg Heparin Sodium (Porcine) (Heparin) 5,000 units SC Q12 [facility] PRN Reason: Protocol Last Admin: 07/18/17 10:36 Dose: 5,000 units Home Med (Home Med) 1 unit PO DAILY [facility] Last Admin: 07/18/17 10:48 Dose: Not Given Hydralazine HCl (Apresoline) 25 mg PO Q4 PRN PRN Reason: Other Last Admin: 07/17/17 22:07 Dose: 25 mg Lamivudine (Epivir) 50 mg PO DAILY [facility] Last Admin: 07/18/17 10:36 Dose: 50 mg Losartan Potassium (Cozaar) 100 mg PO DAILY [facility] Last Admin: 07/18/17 10:35 Dose: 100 mg Meclizine HCl (Antivert) 25 mg PO Q8H PRN PRN Reason: Dizziness Metoprolol Tartrate (Lopressor) 50 mg PO BRKDIN [facility] Last Admin: 07/18/17 08:02 Dose: Not Given Ondansetron HCl (Zofran Inj) 4 mg IVP DAILY [facility] Last Admin: 07/18/17 10:35 Dose: 4 mg Pantoprazole Sodium (Protonix Ec Tab) 40 mg PO 0600 [facility] Last Admin: 07/18/17 07:37 Dose: Not Given Sevelamer HCl (Renagel) 800 mg PO WM [facility] Last Admin: 07/18/17 12:18 Dose: 800 mg Tramadol HCl (Ultram) 50 mg PO Q8H PRN PRN Reason: Pain, moderate (4-7) Last Admin: 07/17/17 22:07 Dose: 50 mg Vitamin B Complex/Vit C/Folic Acid (Nephro-Christel) 1 tab PO DAILY [facility] Last Admin: 07/18/17 10:35 Dose: 1 tab - Labs Labs: 07/18/17 05:30 07/18/17 05:30 PT 13.2 SECONDS (9.4-12.5) H 07/17/17 07:30 INR 1.20 (0.93-1.08) H 07/17/17 07:30 APTT 35.0 Seconds (25.1-36.5) 07/17/17 07:30 Attending/Attestation - Attestation I have personally seen and examined this patient.: Yes I have fully participated in the care of the patient.: Yes I have reviewed all pertinent clinical information, including history, physical exam and plan: Yes
[2017-07-18] MEDS ORDERED: Darbepoetin Alfa 25 mcg/ml Inj IVP ONE ×2 (15:30)
--- NOTE | 2017-07-18 21:48 | CP.PCM.PCO ---
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 chart was reviewed. Heparin will be held tonight as pre-op prep for AM ; last received dose this morning. pt in multipodus boot so SCDs cannot be placed. will monitor.
[2017-07-19] MEDS: Pantoprazole 40 mg EC Tab PO SCH (05:21)
[2017-07-19] MEDS ORDERED: Darbepoetin Alfa 60 mcg/ml Inj IVP ONE (06:00)
[2017-07-19 06:52] LABS: BASO # 0.06 K/mm3 (0.0-2.0); BASO % 0.6 % (0.0-3.0); EOS # 1.1 (0.0-0.7); EOS % 11.3 % (1.5-5.0); GRAN # 3.5 (1.4-6.5); GRAN % 37.5 % (50.0-68.0); HEMATOCRIT 26.8 % (42.0-52.0); LYMPH # 3.4 (1.2-3.4); LYMPH % 36.8 % (22.0-35.0); MEAN CELL VOLUME 98.2 fl (80.0-105.0); MEAN CORPUSCULAR HEMOGLOBIN 31.1 pg (25.0-35.0); MEAN CORPUSCULAR HGB CONC 31.7 g/dl (31.0-37.0); MEAN PLATELET VOLUME 10.3 fl (7.0-11.0); MONO # 1.3 (0.1-0.6); MONO % 13.8 % (1.0-6.0); RED CELL DISTRIBUTION WIDTH 16.2 % (11.5-14.5); WHITE BLOOD COUNT 9.3 10^3/ul (4.5-11.0)
[2017-07-19] MEDS ORDERED: Lidocaine 2% Inj (20ml) ONE (07:22)
[2017-07-19] MEDS ORDERED: Bupivacaine 0.5% Inj(30mL) ONE (07:22)
[2017-07-19] MEDS ORDERED: Midazolam 2 MG/2 ML VIAL ONE (07:40)
[2017-07-19] MEDS ORDERED: Propofol 10 mg/ml Inj (20 ML) ONE (07:40)
[2017-07-19 07:55] LABS: ALB/GLOB RATIO 0.7 (1.1-1.8); BILIRUBIN,TOTAL 0.5 mg/dL (0.2-1.3); CALCIUM 8.7 mg/dL (8.4-10.5); POTASSIUM 3.5 mmol/L (3.6-5.0); TOTAL PROTEIN 6.5 g/dL (5.8-8.3)
--- NOTE | 2017-07-19 08:42 | PCM.SURG1 ---
Surgeon's Initial Post Op Note - Surgeon's Notes Surgeon: Dr. Jerrod Dunn DPM [employer] Professor: Dr. Mirta Driscoll DPM PGY-1 Type of Anesthesia: IV Sedation, Local Anesthesia Administered By: Dr. 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 M: 3-0 vicryl, 3-0 nylone. I: Pre-op: 1:1 mixature of 17 cc of 2% lidocaine plain:0.5% marcain plain Post-Operative Diagnosis: Same Operation Performed: Partial left foot 3rd digit amputation with removal of all non-viable soft tissue and bone Specimen/Specimens Removed: distal 3rd digit Estimated Blood Loss: EBL {In ML}: 5 Blood Products Given: N/A Drains Used: No Drains Post-Op Condition: Good Date of Surgery/Procedure: 07/19/17 Time of Surgery/Procedure: 08:25
--- NOTE | 2017-07-19 09:42 | RAD ---
PROCEDURE: Left Foot Radiographs. HISTORY: s/p left foot surgery COMPARISON: MRI of the left from from 07/10/2017 FINDINGS: BONES: Status post amputation of the great toe and 2nd toe. There has been interval partial amputation of the 3rd toe at the level of the middle phalanx. The 4th and 5th toes are normal in appearance. There is diffuse bone demineralization. There is no acute fracture or bone destruction. JOINTS: Normal. SOFT TISSUES: Normal. OTHER FINDINGS: None. IMPRESSION: Interval partial amputation of the 3rd toe at the level of the middle phalanx. Stable appearance of amputation stump in the medial forefoot.
[2017-07-19] MEDS ORDERED: Vancomycin 1gm in NS 250ml 1 GM/250 ML BAG IVPB STA (10:37)
--- NOTE | 2017-07-19 12:24 | CP.PCM.PN ---
Subjective - Date & Time of Evaluation Date of Evaluation: 07/19/17 Time of Evaluation: 12:22 - Subjective Subjective: IM Progress NOTE for Dr. Sesay/Dr. Adams Service Patient seen and evaluated at bedside. Patient is post op from left 3rd digit distal amputation for suspected OM. Patient scheduled for HD today. Patient reports pain in his right foot at this time. Patient meds to be restarted post op. Patient denies chest pain, shortness of breath, n/v/f/c. Patient denies abdominal pain. Discussed with patient plan for vascular surgery evaluation and continued monitoring of his condition overnight. Objective - Vital Signs/Intake and Output Vital Signs (last 24 hours): Temp Pulse Resp BP Pulse Ox 99.3 F 68 16 155/71 H 95 07/19/17 09:10 07/19/17 09:10 07/19/17 09:10 07/19/17 09:10 07/19/17 09:10 Intake and Output: 07/19/17 07/19/17 06:59 18:59 Intake Total 600 0 Balance 600 0 - Medications Medications: Current Medications Abacavir Sulfate (Ziagen) 300 mg PO BID [facility] Last Admin: 07/18/17 17:57 Dose: 300 mg Acetaminophen (Tylenol 325mg Tab) 650 mg PO Q4H PRN PRN Reason: Fever >100.4 F Last Admin: 07/13/17 12:01 Dose: 650 mg Albuterol/Ipratropium (Duoneb 3 Mg/0.5 Mg (3 Ml) Ud) 3 ml IH Q2H PRN PRN Reason: Shortness of Breath Allopurinol (Zyloprim) 300 mg PO DAILY [facility] Last Admin: 07/18/17 10:35 Dose: 300 mg Ergocalciferol (Drisdol 50,000 Intl Units Cap) 1 cap PO Q7D [facility] Last Admin: 07/13/17 09:37 Dose: 1 cap Fentanyl (Fentanyl) 25 mcg IV Q5M PRN PRN Reason: Pain, moderate (4-7) Ferrous Sulfate (Feosol) 324 mg PO BID [facility] Last Admin: 07/18/17 17:57 Dose: 324 mg Heparin Sodium (Porcine) (Heparin) 5,000 units SC Q12 [facility] PRN Reason: Protocol Last Admin: 07/18/17 22:00 Dose: Not Given Home Med (Home Med) 1 unit PO DAILY [facility] Last Admin: 07/18/17 10:48 Dose: Not Given Hydralazine HCl (Apresoline) 25 mg PO Q4 PRN PRN Reason: Other Last Admin: 07/18/17 21:28 Dose: 25 mg Lamivudine (Epivir) 50 mg PO DAILY [facility] Last Admin: 07/18/17 10:36 Dose: 50 mg Losartan Potassium (Cozaar) 100 mg PO DAILY [facility] Last Admin: 07/18/17 10:35 Dose: 100 mg Meclizine HCl (Antivert) 25 mg PO Q8H PRN PRN Reason: Dizziness Metoprolol Tartrate (Lopressor) 50 mg PO BRKDIN [facility] Last Admin: 07/19/17 05:21 Dose: 50 mg Ondansetron HCl (Zofran Inj) 4 mg IVP DAILY [facility] Last Admin: 07/18/17 10:35 Dose: 4 mg Pantoprazole Sodium (Protonix Ec Tab) 40 mg PO 0600 [facility] Last Admin: 07/19/17 05:21 Dose: Not Given Sevelamer HCl (Renagel) 800 mg PO WM [facility] Last Admin: 07/18/17 17:57 Dose: 800 mg Tramadol HCl (Ultram) 50 mg PO Q8H PRN PRN Reason: Pain, moderate (4-7) Last Admin: 07/18/17 21:21 Dose: 50 mg Vitamin B Complex/Vit C/Folic Acid (Nephro-Christel) 1 tab PO DAILY [facility] Last Admin: 07/18/17 10:35 Dose: 1 tab - Labs Labs: 07/19/17 06:15 07/19/17 06:15 PT 13.2 SECONDS (9.4-12.5) H 07/17/17 07:30 INR 1.20 (0.93-1.08) H 07/17/17 07:30 APTT 35.0 Seconds (25.1-36.5) 07/17/17 07:30 - Constitutional Appears: Non-toxic, No Acute Distress - Head Exam Head Exam: ATRAUMATIC, NORMAL INSPECTION, NORMOCEPHALIC - Eye Exam Eye Exam: EOMI, PERRL - Neck Exam Neck Exam: Full ROM - Respiratory Exam Respiratory Exam: Clear to Ausculation Bilateral, NORMAL BREATHING PATTERN. absent: Rales, Rhonchi, Wheezes - Cardiovascular Exam Cardiovascular Exam: REGULAR RHYTHM, +S1, +S2 - GI/Abdominal Exam GI & Abdominal Exam: Soft, Normal Bowel Sounds. absent: Firm, Rigid, Tenderness - Extremities Exam Extremities Exam: absent: Pedal Edema, Tenderness - Neurological Exam Neurological Exam: Alert, Awake, Oriented x3 Additional comments: motor and sensory grossly intact Charcot foot hx - Psychiatric Exam Psychiatric exam: Normal Affect, Normal Mood - Skin Skin Exam: Warm. absent: Rash Additional comments: Right LE: Open ulceration on medial aspect of right medial mallelous with hyperpigmented base. No odor or purulent drainage. Open ulceration noted on lateral aspect of right heel with fibrotic base with hyperpigmented margins showing signs of necrois. No odor, purulent drainage. Left LE: Bandages in place covering digits of left foot, c/d/i no foul odor appreciated Assessment and Plan (1) Peripheral vascular disease Status: Chronic (2) ESRD (end stage renal disease) on dialysis Status: Chronic (3) HIV (human immunodeficiency virus infection) Status: Chronic (4) Pyelonephritis Status: Acute - Assessment and Plan (Free Text) Assessment: Patient is a PMH of HTN, prostate CA, HIV (last CD4 count on record 03/2016 is 349), history of osteomyelitis of left first toe S/P amputation (2015), gout, ESRD who presented with abdominal pain who was admitted fro sepsis secondary to UTI vs wound infection that has since resolved. Patient continues to be worked up for right medial foot non healing ulcer and suspected OM of the left 3rd digit. Vascular studies have shown poor flow of the left lower extremity. Patient s/p angiogram with stent placement of left posterior tibial artery. Pt POD#0 with podiatry for left distal third digit amputation for clinical suspicion of OM. Plan: 1. 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 No plain evidence of osteomyelitis - Vascular study showing - moderately abnormal MARLENI, left SFA occlusive disease, bilateral distal SFA, popliteal, tibial disease - Podiatry consulted, appreciate recs - POD#0 from left 3rd digit distal amputation - Wound bandages in place, monitor overnight -ID following, f/u recs -Vascular consulted, f/u recs - Angiogram yesterday with stent placement of left tibial artery 2. Peripheral vascular disease - Vascular study showing - moderately abnormal MARLENI, left SFA occlusive disease, bilateral distal SFA, popliteal, tibial disease - Angiogram showing severe b/l trifuraction, tibial, and pedal occlusive disease - Successful left posterior tibial artery angioplasty and focal stent placement - Vascular surgery consulted for PAD possible fem pop vs. fem tib bypass 3. Sepsis - resolved - Etiology: Likely secondary to UTI vs. wound infection as source - Afebrile, WBC nml, VSS - IV merrem given 7 days total - Urology consulted, signed off at this time - Recommended outpatient f/u with cystoscope 4. HTN - Patient currently on Cozaar 100mg from 50mg - Metoprolol Tartate 25 BID - hydralazine 25mg PO PRN - Consider increase BB if continued elevated BP - continue to monitor 5. Bladder wall thickening - Abd/Pelvis CT showing bladder wall thickening - Hx of prostate cancer, request records from [place] still awaiting records - PSA nml - Urology consulted, appreciate recs - No plan for cystoscopy at this time, plan for outpatient follow up 6. HIV - ID consulted and following - Ziagne, epivir, Dolutegravir as per ID 7. ESRD- Renal following for HD - HD Sunday//Sunday - Continue with renagel 8.Hx of gout - Allopurinol 9. 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 COPD - Duoneb PRN GI PPX: Protonix DVT PPX: SCDs Patient seen, examined and case discussed with attending
--- NOTE | 2017-07-19 13:30 | CP.PCM.PN ---
Subjective - Date & Time of Evaluation Date of Evaluation: 07/19/17 Time of Evaluation: 11:45 - Subjective Subjective: Had surgery today on the left foot, no fevers. Objective - Vital Signs/Intake and Output Vital Signs (last 24 hours): Temp Pulse Resp BP Pulse Ox 99.3 F 68 16 155/71 H 95 07/19/17 09:10 07/19/17 09:10 07/19/17 09:10 07/19/17 09:10 07/19/17 09:10 Intake and Output: 07/19/17 07/19/17 06:59 18:59 Intake Total 600 0 Balance 600 0 - Medications Medications: Current Medications Abacavir Sulfate (Ziagen) 300 mg PO BID [facility] Last Admin: 07/18/17 17:57 Dose: 300 mg Acetaminophen (Tylenol 325mg Tab) 650 mg PO Q4H PRN PRN Reason: Fever >100.4 F Last Admin: 07/13/17 12:01 Dose: 650 mg Albuterol/Ipratropium (Duoneb 3 Mg/0.5 Mg (3 Ml) Ud) 3 ml IH Q2H PRN PRN Reason: Shortness of Breath Allopurinol (Zyloprim) 300 mg PO DAILY [facility] Last Admin: 07/18/17 10:35 Dose: 300 mg Ergocalciferol (Drisdol 50,000 Intl Units Cap) 1 cap PO Q7D [facility] Last Admin: 07/13/17 09:37 Dose: 1 cap Fentanyl (Fentanyl) 25 mcg IV Q5M PRN PRN Reason: Pain, moderate (4-7) Ferrous Sulfate (Feosol) 324 mg PO BID [facility] Last Admin: 07/18/17 17:57 Dose: 324 mg Heparin Sodium (Porcine) (Heparin) 5,000 units SC Q12 [facility] PRN Reason: Protocol Last Admin: 07/18/17 22:00 Dose: Not Given Home Med (Home Med) 1 unit PO DAILY [facility] Last Admin: 07/18/17 10:48 Dose: Not Given Hydralazine HCl (Apresoline) 25 mg PO Q4 PRN PRN Reason: Other Last Admin: 07/18/17 21:28 Dose: 25 mg Lamivudine (Epivir) 50 mg PO DAILY [facility] Last Admin: 07/18/17 10:36 Dose: 50 mg Losartan Potassium (Cozaar) 100 mg PO DAILY [facility] Last Admin: 07/18/17 10:35 Dose: 100 mg Meclizine HCl (Antivert) 25 mg PO Q8H PRN PRN Reason: Dizziness Metoprolol Tartrate (Lopressor) 50 mg PO BRKDIN [facility] Last Admin: 07/19/17 05:21 Dose: 50 mg Ondansetron HCl (Zofran Inj) 4 mg IVP DAILY [facility] Last Admin: 07/18/17 10:35 Dose: 4 mg Pantoprazole Sodium (Protonix Ec Tab) 40 mg PO 0600 [facility] Last Admin: 07/19/17 05:21 Dose: Not Given Sevelamer HCl (Renagel) 800 mg PO WM [facility] Last Admin: 07/18/17 17:57 Dose: 800 mg Tramadol HCl (Ultram) 50 mg PO Q8H PRN PRN Reason: Pain, moderate (4-7) Last Admin: 07/18/17 21:21 Dose: 50 mg Vitamin B Complex/Vit C/Folic Acid (Nephro-Christel) 1 tab PO DAILY [facility] Last Admin: 07/18/17 10:35 Dose: 1 tab - Labs Labs: 07/19/17 06:15 07/19/17 06:15 PT 13.2 SECONDS (9.4-12.5) H 07/17/17 07:30 INR 1.20 (0.93-1.08) H 07/17/17 07:30 APTT 35.0 Seconds (25.1-36.5) 07/17/17 07:30 - Constitutional Appears: Non-toxic - Head Exam Head Exam: NORMAL INSPECTION - ENT Exam ENT Exam: Mucous Membranes Moist - Neck Exam Neck Exam: absent: Meningismus - Respiratory Exam Respiratory Exam: Decreased Breath Sounds - Cardiovascular Exam Cardiovascular Exam: +S1, +S2 - GI/Abdominal Exam GI & Abdominal Exam: Soft. absent: Tenderness Assessment and Plan - Assessment and Plan (Free Text) Plan: Assessment S/P lower leg and foot cellulitis probable left foot 3rd digit osteomyelitis (exposed bone) S/P amputation and debridement today severe PAD S/P angioplasty of the left tibial artery POD #2 right sided nephrolithiasis history of severe sepsis with acute on chronic renal failure probably due to pyelonephritis with E. coli bacteremia history of C. diff. associated diarrhea Charcot foot, left history of left 2nd toe dry gangrene Chronic renal failure on hemodialysis HTN prostate CA HIV ([facility] at [facility] 03/2016 349 and virus load < 1.3 log) history of osteomyelitis of left first toe S/P amputation (2015) gout history of left foot ulcers Plan will start intermittent IV Vancomycin pending OR cx and pathology continue antiretroviral therapy (lamivudine, abacavir on formulary but dolutegravir should be taken by patient from his home supply)
--- NOTE | 2017-07-19 14:36 | CP.PCM.PN ---
Subjective - Date & Time of Evaluation Date of Evaluation: 07/19/17 Time of Evaluation: 14:36 - Subjective Subjective: Follow up Nephrology Consultation: Assessment: stable foot ulcer with PVD and ? left foor 3rd toe osteo s/p amputation 07/19/17 Hypertensive Chronic Kidney Disease (I12.9) ESRD on HD via permacath (TTS) Anemia (D64.9), HTN (I12.9) HIV on HAART, Left hydroureteronephrosis bladder wall thickening, hx of prostate CA Plan HD today as per TTS schedule. continue with nephrovite 1 tab/day aransep 125 mcg weekly for anemia (). not on VDRA as PTH at goal. pt on weekly vit D lowered dose of binders Hypertension control with meds as ordered. Patient now on max dose of losartan, increased lopressor. prn hydralazine. now stable appreciate evaluation, ID following, podiatry following. MRI foot neg for osteo IR input for PVD appreciated Dose meds/antibiotics for ESRD status. Avoid fleets enema/magnesium based laxatives. Avoid nephrotoxins/NSAIDs Further work up/management as per primary team Thanks for allowing me to participate in care of your patient. Will follow patient with you. Please call if any Qs. Dr Yandel Arechiga Office: [phone] Chief Complaint; ankle pain reason for consult: ESRD HPI: Pt is a 71 y/o M with hx of HIV on HAART, PVD s/p angioplasty, hypertension (10-15 years), ESRD on HD (via permacath) TTS [facility], left foot toe amputations, prostate CA presented with complaints of pain in lower abdomen and vomitting 1 episode yesterday. pt was febrile in HD yesterday when blood cx x 2 done (NEGATIVE TILL DATE) and he was given 1 gram vanco and 120 mg genta with HD. pt was advised to go to hospital which he declined. Later , he came to [facility] with mentioned complaints. he feels better now ROS: Denies chest pain, palpitation, leg swelling. no shortness of breath c/o pain at ankle s/p angio 07/18/17 and interventions on LLE by IR Physical Examination: General Appearance: Comfortable, in no acute respiratory distress, co-operative Vitals reviewed and noted as below Head; Atraumatic, normocephalic ENT: no ulcers no thrush. Tongue is midline. Oropharynx: no rash or ulcers. EYES: Pupils are equal, round and reactive to light accommodation. Eye muscles and extraocular movement intact. Sclera is anicteric. Neck; supple no lymphadenopathy, no thyromegaly or bruit Lungs: Normal respiratory rate/effort. Breath sounds bilateral clear Heart: Normal rate. s1s2 normal. No rub or gallop. Extremities: no edema. No varicose veins Neurological: Patient is alert, awake and oriented to person, place and time. No focal deficit. Strength bilateral appropriate and equal Skin: Warm and dry. Normal turgor. No rash. Palpitation: Normal elasticity for age Abdomen: Abdomen is soft. Bowel sounds +. There is mild lower abdominal tenderness, no guarding/rigidity no organomegaly Psych: normal insight and normal affect/mood MSK: no joint tenderness or swelling. Digits and nails normal, has rt foot deformity noted with ulcer on medial malleolus. left foot toe amputations in past : kidney or bladder not palpable. Access: permacath Labs/imaging/EKG reviewed. Past medical history, past surgical history, family history, social history, allergy reviewed and noted as below Family hx: sister was on dialysis. Rest non-contributor Objective - Vital Signs/Intake and Output Vital Signs (last 24 hours): Temp Pulse Resp BP Pulse Ox 99.3 F 68 16 155/71 H 95 07/19/17 09:10 07/19/17 09:10 07/19/17 09:10 07/19/17 09:10 07/19/17 09:10 Intake and Output: 07/19/17 07/19/17 06:59 18:59 Intake Total 600 0 Balance 600 0 - Medications Medications: Current Medications Abacavir Sulfate (Ziagen) 300 mg PO BID [facility] Last Admin: 07/18/17 17:57 Dose: 300 mg Acetaminophen (Tylenol 325mg Tab) 650 mg PO Q4H PRN PRN Reason: Fever >100.4 F Last Admin: 07/13/17 12:01 Dose: 650 mg Albuterol/Ipratropium (Duoneb 3 Mg/0.5 Mg (3 Ml) Ud) 3 ml IH Q2H PRN PRN Reason: Shortness of Breath Allopurinol (Zyloprim) 300 mg PO DAILY [facility]S [facility] Last Admin: 07/18/17 10:35 Dose: 300 mg Ergocalciferol (Drisdol 50,000 Intl Units Cap) 1 cap PO Q7D [facility] Last Admin: 07/13/17 09:37 Dose: 1 cap Fentanyl (Fentanyl) 25 mcg IV Q5M PRN PRN Reason: Pain, moderate (4-7) Ferrous Sulfate (Feosol) 324 mg PO BID [facility] Last Admin: 07/18/17 17:57 Dose: 324 mg Heparin Sodium (Porcine) (Heparin) 5,000 units SC Q12 [facility]S [facility] PRN Reason: Protocol Last Admin: 07/18/17 22:00 Dose: Not Given Home Med (Home Med) 1 unit PO DAILY [facility] Last Admin: 07/18/17 10:48 Dose: Not Given Hydralazine HCl (Apresoline) 25 mg PO Q4 PRN PRN Reason: Other Last Admin: 07/18/17 21:28 Dose: 25 mg Lamivudine (Epivir) 50 mg PO DAILY [facility] Last Admin: 07/18/17 10:36 Dose: 50 mg Losartan Potassium (Cozaar) 100 mg PO DAILY [facility] Last Admin: 07/18/17 10:35 Dose: 100 mg Meclizine HCl (Antivert) 25 mg PO Q8H PRN PRN Reason: Dizziness Metoprolol Tartrate (Lopressor) 50 mg PO BRKDIN [facility] 234 [facility]S [facility] Last Admin: 07/19/17 05:21 Dose: 50 mg Ondansetron HCl (Zofran Inj) 4 mg IVP DAILY PRN PRN Reason: nausea Pantoprazole Sodium (Protonix Ec Tab) 40 mg PO 0600 [facility] Last Admin: 07/19/17 05:21 Dose: Not Given Sevelamer HCl (Renagel) 800 mg PO WM [facility] 234 [facility]S [facility] Last Admin: 07/18/17 17:57 Dose: 800 mg Tramadol HCl (Ultram) 50 mg PO Q8H PRN PRN Reason: Pain, moderate (4-7) Last Admin: 07/18/17 21:21 Dose: 50 mg Vitamin B Complex/Vit C/Folic Acid (Nephro-Christel) 1 tab PO DAILY [facility] Last Admin: 07/18/17 10:35 Dose: 1 tab - Labs Labs: 07/19/17 06:15 07/19/17 06:15 PT 13.2 SECONDS (9.4-12.5) H 07/17/17 07:30 INR 1.20 (0.93-1.08) H 07/17/17 07:30 APTT 35.0 Seconds (25.1-36.5) 07/17/17 07:30
--- NOTE | 2017-07-19 15:42 | CP.PCM.PN ---
Subjective - Date & Time of Evaluation Date of Evaluation: 07/19/17 Time of Evaluation: 15:36 - Subjective Subjective: Vascular Surgery Progress Note for Dr. Rubio This patient was seen and examined this AM at bedside. No acute events were reported over night. Patient went to the OR today for amputation of right 3rd digit with podiatry. Patient subsequently examined in dialysis with no complaints. Denies fevers, chills, chest pain nausea vomiting or diarrhea. Objective - Vital Signs/Intake and Output Vital Signs (last 24 hours): Temp Pulse Resp BP Pulse Ox 99.3 F 68 16 155/71 H 95 07/19/17 09:10 07/19/17 09:10 07/19/17 09:10 07/19/17 09:10 07/19/17 09:10 Intake and Output: 07/19/17 07/19/17 06:59 18:59 Intake Total 600 120 Balance 600 120 - Medications Medications: Current Medications Abacavir Sulfate (Ziagen) 300 mg PO BID [facility] Last Admin: 07/18/17 17:57 Dose: 300 mg Acetaminophen (Tylenol 325mg Tab) 650 mg PO Q4H PRN PRN Reason: Fever >100.4 F Last Admin: 07/13/17 12:01 Dose: 650 mg Albuterol/Ipratropium (Duoneb 3 Mg/0.5 Mg (3 Ml) Ud) 3 ml IH Q2H PRN PRN Reason: Shortness of Breath Allopurinol (Zyloprim) 300 mg PO DAILY [facility] Last Admin: 07/18/17 10:35 Dose: 300 mg Ergocalciferol (Drisdol 50,000 Intl Units Cap) 1 cap PO Q7D [facility] Last Admin: 07/13/17 09:37 Dose: 1 cap Fentanyl (Fentanyl) 25 mcg IV Q5M PRN PRN Reason: Pain, moderate (4-7) Ferrous Sulfate (Feosol) 324 mg PO BID [facility] Last Admin: 07/18/17 17:57 Dose: 324 mg Heparin Sodium (Porcine) (Heparin) 5,000 units SC Q12 [facility] PRN Reason: Protocol Last Admin: 07/18/17 22:00 Dose: Not Given Home Med (Home Med) 1 unit PO DAILY [facility] Last Admin: 07/18/17 10:48 Dose: Not Given Hydralazine HCl (Apresoline) 25 mg PO Q4 PRN PRN Reason: Other Last Admin: 07/18/17 21:28 Dose: 25 mg Lamivudine (Epivir) 50 mg PO DAILY [facility] Last Admin: 07/18/17 10:36 Dose: 50 mg Losartan Potassium (Cozaar) 100 mg PO DAILY [facility] Last Admin: 07/18/17 10:35 Dose: 100 mg Meclizine HCl (Antivert) 25 mg PO Q8H PRN PRN Reason: Dizziness Metoprolol Tartrate (Lopressor) 50 mg PO BRKDIN [facility] Last Admin: 07/19/17 05:21 Dose: 50 mg Ondansetron HCl (Zofran Inj) 4 mg IVP DAILY PRN PRN Reason: nausea Pantoprazole Sodium (Protonix Ec Tab) 40 mg PO 0600 [facility] Last Admin: 07/19/17 05:21 Dose: Not Given Sevelamer HCl (Renagel) 800 mg PO WM [facility] Last Admin: 07/19/17 15:23 Dose: Not Given Tramadol HCl (Ultram) 50 mg PO Q8H PRN PRN Reason: Pain, moderate (4-7) Last Admin: 07/18/17 21:21 Dose: 50 mg Vitamin B Complex/Vit C/Folic Acid (Nephro-Christel) 1 tab PO DAILY [facility] Last Admin: 07/18/17 10:35 Dose: 1 tab - Labs Labs: 07/19/17 06:15 07/19/17 06:15 PT 13.2 SECONDS (9.4-12.5) H 07/17/17 07:30 INR 1.20 (0.93-1.08) H 07/17/17 07:30 APTT 35.0 Seconds (25.1-36.5) 07/17/17 07:30 - Constitutional Appears: Non-toxic, No Acute Distress - Head Exam Head Exam: ATRAUMATIC, NORMOCEPHALIC - Eye Exam Eye Exam: EOMI, Normal appearance - ENT Exam ENT Exam: Mucous Membranes Moist - Respiratory Exam Respiratory Exam: NORMAL BREATHING PATTERN - Cardiovascular Exam Cardiovascular Exam: REGULAR RHYTHM - GI/Abdominal Exam GI & Abdominal Exam: Soft. absent: Rigid, Tenderness - Extremities Exam Additional comments: Palpable dp on RLE, Dopple dp on LLE, non palpable or dopplerable dp bilaterally - Neurological Exam Neurological Exam: Alert, Awake - Psychiatric Exam Psychiatric exam: Normal Affect, Normal Mood - Skin Skin Exam: Dry, Intact, Normal Color Assessment and Plan - Assessment and Plan (Free Text) Assessment: This is a 72M with HIV, ESRD, and osteomyelitis who is status post balloon angioplasty of the left posterior tibial artery who is status post right lower extremity 3rd toe amputation. No acute intervention indicated at this time as surgery has already been performed. It is our recommendation that the patient be outfitted with a shoe that removes weight distribution from the right foot due to obvious fern deformities. If the patients left foot does not heal appropriately in the next 10 days please reconsult as a vascular intervention maybe beneficial. Additionally it is our recommendation that if patient will require surgical intervention for the right foot that you consult Dr. Rubio' s service. Thank you for your consult.
[2017-07-20] MEDS: Pantoprazole 40 mg EC Tab PO SCH (05:55)
[2017-07-20 07:19] LABS: BASO # 0.03 K/mm3 (0.0-2.0); BASO % 0.3 % (0.0-3.0); EOS # 0.8 (0.0-0.7); EOS % 8.8 % (1.5-5.0); GRAN # 3.99 (1.4-6.5); GRAN % 42.8 % (50.0-68.0); HEMATOCRIT 28.8 % (42.0-52.0); LYMPH # 3.1 (1.2-3.4); LYMPH % 33.2 % (22.0-35.0); MEAN CELL VOLUME 98.3 fl (80.0-105.0); MEAN CORPUSCULAR HEMOGLOBIN 30.7 pg (25.0-35.0); MEAN CORPUSCULAR HGB CONC 31.3 g/dl (31.0-37.0); MEAN PLATELET VOLUME 10.7 fl (7.0-11.0); MONO # 1.4 (0.1-0.6); MONO % 14.9 % (1.0-6.0); RED CELL DISTRIBUTION WIDTH 16.2 % (11.5-14.5); WHITE BLOOD COUNT 9.3 10^3/ul (4.5-11.0)
[2017-07-20 08:30] LABS: ALB/GLOB RATIO 0.7 (1.1-1.8); CALCIUM 8.7 mg/dL (8.4-10.5); POTASSIUM 3.6 mmol/L (3.6-5.0)
[2017-07-20] MEDS ORDERED: Vancomycin 1.5 GM in Sodium Chloride 0.9% 500 ML IVPB ONE (10:15)
--- NOTE | 2017-07-20 11:05 | RAD ---
HISTORY: rule out pneumonia COMPARISON: 07/05/2017 FINDINGS: LUNGS: No active pulmonary disease. PLEURA: No significant pleural effusion identified, no pneumothorax apparent. CARDIOVASCULAR: Normal. OSSEOUS STRUCTURES: No significant abnormalities. VISUALIZED UPPER ABDOMEN: Normal. OTHER FINDINGS: Right-sided dialysis catheter IMPRESSION: No active disease.
[2017-07-20] MEDS: Multivitamin Vitamin B Complex (Nephro-Vite) Tab PO SCH (11:13)
[2017-07-20] MEDS: Ergocalciferol 50,000 Intl Units Cap PO SCH (11:13)
[2017-07-20] MEDS: Meropenem 500 MG in Sodium Chloride 0.9% 50 ML IVPB SCH (11:23)
[2017-07-20] MEDS: LamiVUDine 10 mg/ml Syringe PO SCH (12:08)
--- NOTE | 2017-07-20 13:46 | CP.PCM.PN ---
<PhucCastillojayla - Last Filed: 07/20/17 17:33> Subjective - Date & Time of Evaluation Date of Evaluation: 07/20/17 Time of Evaluation: 13:46 - Subjective Subjective: Podiatry Progress Note 72 year old male patient seen and evaluated at bedside with attending Dr. Dunn POD#1 partial left foot 3rd digit amputation with removal of all non- viable soft tissue and bone. Patient hemodynamically stable, NAD. Denies any acute events overnight. Patient admits to mild soreness to surgical site, along with mild tenderness to right ankle wound. Denies N/V/F/D/C/SOB/calf pain. Offers no other pedal complaints at this time. Objective - Vital Signs/Intake and Output Vital Signs (last 24 hours): Temp Pulse Resp BP Pulse Ox 100.5 F H 79 20 166/83 H 92 L 07/20/17 08:43 07/20/17 08:43 07/20/17 08:43 07/20/17 08:43 07/20/17 08:43 Intake and Output: 07/20/17 07/20/17 06:59 18:59 Intake Total 120 Output Total 0 Balance 120 - Medications Medications: Current Medications Abacavir Sulfate (Ziagen) 300 mg PO BID [facility] Last Admin: 07/20/17 11:12 Dose: 300 mg Acetaminophen (Tylenol 325mg Tab) 650 mg PO Q4H PRN PRN Reason: Fever >100.4 F Last Admin: 07/20/17 05:54 Dose: 650 mg Albuterol/Ipratropium (Duoneb 3 Mg/0.5 Mg (3 Ml) Ud) 3 ml IH Q2H PRN PRN Reason: Shortness of Breath Allopurinol (Zyloprim) 300 mg PO DAILY [facility] Last Admin: 07/20/17 11:13 Dose: 300 mg Ergocalciferol (Drisdol 50,000 Intl Units Cap) 1 cap PO Q7D [facility] Last Admin: 07/20/17 11:13 Dose: 1 cap Fentanyl (Fentanyl) 25 mcg IV Q5M PRN PRN Reason: Pain, moderate (4-7) Ferrous Sulfate (Feosol) 324 mg PO BID [facility] Last Admin: 07/20/17 11:13 Dose: 324 mg Heparin Sodium (Porcine) (Heparin) 5,000 units SC Q12 [facility] PRN Reason: Protocol Last Admin: 07/20/17 11:25 Dose: 5,000 units Home Med (Home Med) 1 unit PO DAILY [facility] Last Admin: 07/18/17 10:48 Dose: Not Given Hydralazine HCl (Apresoline) 25 mg PO Q4 PRN PRN Reason: Other Last Admin: 07/18/17 21:28 Dose: 25 mg Meropenem 500 mg/ Sodium (Chloride) 50 mls @ 100 mls/hr IVPB Q12 [facility] PRN Reason: Protocol Stop: 07/27/17 10:16 Last Admin: 07/20/17 11:23 Dose: 100 mls/hr Lamivudine (Epivir) 50 mg PO DAILY [facility] Last Admin: 07/20/17 12:08 Dose: 50 mg Losartan Potassium (Cozaar) 100 mg PO DAILY [facility] Last Admin: 07/20/17 11:13 Dose: 100 mg Meclizine HCl (Antivert) 25 mg PO Q8H PRN PRN Reason: Dizziness Metoprolol Tartrate (Lopressor) 100 mg PO BRKDIN [facility] Ondansetron HCl (Zofran Inj) 4 mg IVP DAILY PRN PRN Reason: nausea Pantoprazole Sodium (Protonix Ec Tab) 40 mg PO 0600 [facility] Last Admin: 07/20/17 05:55 Dose: 40 mg Sevelamer HCl (Renagel) 800 mg PO WM [facility] Last Admin: 07/20/17 12:08 Dose: 800 mg Tramadol HCl (Ultram) 50 mg PO Q8H PRN PRN Reason: Pain, moderate (4-7) Last Admin: 07/18/17 21:21 Dose: 50 mg Vitamin B Complex/Vit C/Folic Acid (Nephro-Christel) 1 tab PO DAILY [facility] Last Admin: 07/20/17 11:13 Dose: 1 tab - Labs Labs: 07/20/17 06:50 07/20/17 06:50 PT 13.2 SECONDS (9.4-12.5) H 07/17/17 07:30 INR 1.20 (0.93-1.08) H 07/17/17 07:30 APTT 35.0 Seconds (25.1-36.5) 07/17/17 07:30 - Constitutional Appears: Well, Non-toxic, No Acute Distress - Extremities Exam Additional comments: Bilateral lower extremity examination: VASC: B/L non-palpable pedal pulses. Temperature gradient cool to cool. CFT delayed b/l. No edema noted. DERM: Right: Open ulceration noted to Medial aspect of right Medial malleolus measuring 3cm x 2cm x 0.2cm with necrotic base and hyperkeratotic rim. No malodor noted. No purulent drainage noted. No tracking noted. No probe to bone. Mild erythema to margins <0.5cm. No sign of acute infection is noted at this time. Second open ulceration noted to lateral aspect of right heel measuring 2cm x 0.5cm x 0.2cm with fibrotic base with hyperpigmented margins showing signs of necrosis, No malodor noted. No purulent drainage noted. No tracking noted. No probe to bone. Mild erythema to margins <0.5cm. No sign of acute infection is noted at this time LEFT: 3rd digit partial amputation surgical incision appears well coapted with sutures intact and no wound dehiscence noted. Dried/crusted blood noted periwound. NEURO: protective sensation is grossly diminished ORTHO: RIGHT medial aspect of the ankle and medial aspect of the rearfoot and midfoot are tender upon palpation; gross midfoot collapse is appreciated secondary to Charcot. LEFT 1st and 2nd digit amputation noted, with recent partial 3rd digit amputation. - Neurological Exam Neurological Exam: Alert, Awake - Psychiatric Exam Psychiatric exam: Normal Affect, Normal Mood Assessment and Plan - Assessment and Plan (Free Text) Assessment: 71 yo male patient 1) POD#1 Partial left foot 3rd digit amputation with removal of all non-viable soft tissue and bone 2) non-healing open ulcerations to bilateral feet Plan: Patient seen and evaluated at bedside with attending Dr. Dunn Febrile currently T 100.5 (likely reactive), WBC 9.3 Right foot cleansed with normal sterile saline and dressed with betadine DSD Left foot cleansed with normal sterile saline and dressed with betadine, DSD -Will monitor surgical site closely Continue multipodus boots while in bed Arterial duplex: MARLENI - R: 0.51 and L: 0.67 Vascular consult - recommendations appreciated -Successful left posterior tibial artery angioplasty and focal stent placement -Per vascular, consider additional vascular intervention pending healing process of left foot Cultures reveal growth of Corynebacterium and Coag Negative Staph -Continue abx per ID, recs appreciated Xray and MRI - reveals no acute fracture or evidence of OM. Podiatry will continue to follow while remains in house. <Jerrod Dunn - Last Filed: 07/21/17 07:42> Objective - Vital Signs/Intake and Output Vital Signs (last 24 hours): Temp Pulse Resp BP Pulse Ox 99.5 F 73 20 141/83 96 07/20/17 16:00 07/20/17 16:00 07/20/17 16:00 07/20/17 16:00 07/20/17 16:00 Intake and Output: 07/21/17 07/21/17 06:59 18:59 Intake Total 480 Balance 480 - Medications Medications: Current Medications Abacavir Sulfate (Ziagen) 300 mg PO BID [facility] Last Admin: 07/20/17 18:01 Dose: 300 mg Acetaminophen (Tylenol 325mg Tab) 650 mg PO Q4H PRN PRN Reason: Fever >100.4 F Last Admin: 07/20/17 05:54 Dose: 650 mg Albuterol/Ipratropium (Duoneb 3 Mg/0.5 Mg (3 Ml) Ud) 3 ml IH Q2H PRN PRN Reason: Shortness of Breath Allopurinol (Zyloprim) 300 mg PO DAILY [facility] Last Admin: 07/20/17 11:13 Dose: 300 mg Ergocalciferol (Drisdol 50,000 Intl Units Cap) 1 cap PO Q7D [facility] Last Admin: 07/20/17 11:13 Dose: 1 cap Fentanyl (Fentanyl) 25 mcg IV Q5M PRN PRN Reason: Pain, moderate (4-7) Ferrous Sulfate (Feosol) 324 mg PO BID [facility] Last Admin: 07/20/17 18:02 Dose: 324 mg Heparin Sodium (Porcine) (Heparin) 5,000 units SC Q12 [facility] PRN Reason: Protocol Last Admin: 07/20/17 22:12 Dose: 5,000 units Home Med (Home Med) 1 unit PO DAILY [facility] Last Admin: 07/18/17 10:48 Dose: Not Given Hydralazine HCl (Apresoline) 25 mg PO Q4 PRN PRN Reason: Other Last Admin: 07/18/17 21:28 Dose: 25 mg Meropenem 500 mg/ Sodium (Chloride) 50 mls @ 100 mls/hr IVPB Q12 [facility] PRN Reason: Protocol Stop: 07/27/17 10:16 Last Admin: 07/20/17 11:23 Dose: 100 mls/hr Lamivudine (Epivir) 50 mg PO DAILY [facility] Last Admin: 07/20/17 12:08 Dose: 50 mg Losartan Potassium (Cozaar) 100 mg PO DAILY [facility] Last Admin: 07/20/17 11:13 Dose: 100 mg Meclizine HCl (Antivert) 25 mg PO Q8H PRN PRN Reason: Dizziness Metoprolol Tartrate (Lopressor) 100 mg PO BRKDIN [facility] Last Admin: 07/20/17 18:01 Dose: 100 mg Ondansetron HCl (Zofran Inj) 4 mg IVP DAILY PRN PRN Reason: nausea Pantoprazole Sodium (Protonix Ec Tab) 40 mg PO 0600 [facility] Last Admin: 07/21/17 06:34 Dose: 40 mg Sevelamer HCl (Renagel) 800 mg PO WM [facility] Last Admin: 07/20/17 18:01 Dose: 800 mg Tramadol HCl (Ultram) 50 mg PO Q8H PRN PRN Reason: Pain, moderate (4-7) Last Admin: 07/20/17 18:05 Dose: 50 mg Vitamin B Complex/Vit C/Folic Acid (Nephro-Christel) 1 tab PO DAILY [facility] Last Admin: 07/20/17 11:13 Dose: 1 tab - Labs Labs: 07/21/17 06:00 07/20/17 06:50 PT 13.2 SECONDS (9.4-12.5) H 07/17/17 07:30 INR 1.20 (0.93-1.08) H 07/17/17 07:30 APTT 35.0 Seconds (25.1-36.5) 07/17/17 07:30 Attending/Attestation - Attestation I have personally seen and examined this patient.: Yes I have fully participated in the care of the patient.: Yes I have reviewed all pertinent clinical information, including history, physical exam and plan: Yes
--- NOTE | 2017-07-20 14:10 | CP.PCM.PN ---
Subjective - Date & Time of Evaluation Date of Evaluation: 07/20/17 Time of Evaluation: 09:20 - Subjective Subjective: Patient seen and examined this AM. Patient is POD#1 from distal third digit amputation for clinical OM. Patient with elevation of temperature of 100.5F this AM. Urine and blood cultures drawn. Patient started on IV abx. Patient with complaints of right foot pain that is managed with pain medication. Patient denies chest pain, shortness of breath, abdominal discomfort, nausea, vomiting, chills. Objective - Vital Signs/Intake and Output Vital Signs (last 24 hours): Temp Pulse Resp BP Pulse Ox 100.5 F H 79 20 166/83 H 92 L 07/20/17 08:43 07/20/17 08:43 07/20/17 08:43 07/20/17 08:43 07/20/17 08:43 Intake and Output: 07/20/17 07/20/17 06:59 18:59 Intake Total 120 Output Total 0 Balance 120 - Medications Medications: Current Medications Abacavir Sulfate (Ziagen) 300 mg PO BID [facility] Last Admin: 07/20/17 11:12 Dose: 300 mg Acetaminophen (Tylenol 325mg Tab) 650 mg PO Q4H PRN PRN Reason: Fever >100.4 F Last Admin: 07/20/17 05:54 Dose: 650 mg Albuterol/Ipratropium (Duoneb 3 Mg/0.5 Mg (3 Ml) Ud) 3 ml IH Q2H PRN PRN Reason: Shortness of Breath Allopurinol (Zyloprim) 300 mg PO DAILY [facility] Last Admin: 07/20/17 11:13 Dose: 300 mg Ergocalciferol (Drisdol 50,000 Intl Units Cap) 1 cap PO Q7D [facility] Last Admin: 07/20/17 11:13 Dose: 1 cap Fentanyl (Fentanyl) 25 mcg IV Q5M PRN PRN Reason: Pain, moderate (4-7) Ferrous Sulfate (Feosol) 324 mg PO BID [facility] Last Admin: 07/20/17 11:13 Dose: 324 mg Heparin Sodium (Porcine) (Heparin) 5,000 units SC Q12 [facility] PRN Reason: Protocol Last Admin: 07/20/17 11:25 Dose: 5,000 units Home Med (Home Med) 1 unit PO DAILY [facility] Last Admin: 07/18/17 10:48 Dose: Not Given Hydralazine HCl (Apresoline) 25 mg PO Q4 PRN PRN Reason: Other Last Admin: 07/18/17 21:28 Dose: 25 mg Meropenem 500 mg/ Sodium (Chloride) 50 mls @ 100 mls/hr IVPB Q12 [facility] PRN Reason: Protocol Stop: 07/27/17 10:16 Last Admin: 07/20/17 11:23 Dose: 100 mls/hr Lamivudine (Epivir) 50 mg PO DAILY [facility] Last Admin: 07/20/17 12:08 Dose: 50 mg Losartan Potassium (Cozaar) 100 mg PO DAILY [facility] Last Admin: 07/20/17 11:13 Dose: 100 mg Meclizine HCl (Antivert) 25 mg PO Q8H PRN PRN Reason: Dizziness Metoprolol Tartrate (Lopressor) 100 mg PO BRKDIN [facility] Ondansetron HCl (Zofran Inj) 4 mg IVP DAILY PRN PRN Reason: nausea Pantoprazole Sodium (Protonix Ec Tab) 40 mg PO 0600 [facility] Last Admin: 07/20/17 05:55 Dose: 40 mg Sevelamer HCl (Renagel) 800 mg PO WM [facility] Last Admin: 07/20/17 12:08 Dose: 800 mg Tramadol HCl (Ultram) 50 mg PO Q8H PRN PRN Reason: Pain, moderate (4-7) Last Admin: 07/18/17 21:21 Dose: 50 mg Vitamin B Complex/Vit C/Folic Acid (Nephro-Christel) 1 tab PO DAILY [facility] Last Admin: 07/20/17 11:13 Dose: 1 tab - Labs Labs: 07/20/17 06:50 07/20/17 06:50 PT 13.2 SECONDS (9.4-12.5) H 07/17/17 07:30 INR 1.20 (0.93-1.08) H 07/17/17 07:30 APTT 35.0 Seconds (25.1-36.5) 07/17/17 07:30 - Constitutional Appears: No Acute Distress - Head Exam Head Exam: ATRAUMATIC, NORMAL INSPECTION, NORMOCEPHALIC - Eye Exam Eye Exam: EOMI, PERRL - ENT Exam ENT Exam: Mucous Membranes Moist - Respiratory Exam Respiratory Exam: Clear to Ausculation Bilateral, NORMAL BREATHING PATTERN. absent: Rhonchi, Wheezes - Cardiovascular Exam Cardiovascular Exam: REGULAR RHYTHM, +S1, +S2 - GI/Abdominal Exam GI & Abdominal Exam: Soft, Normal Bowel Sounds. absent: Tenderness - Back Exam Back Exam: NORMAL INSPECTION - Neurological Exam Neurological Exam: Alert, Awake, Oriented x3 Additional comments: motor and sensory grossly intact Charcot foot hx - Psychiatric Exam Psychiatric exam: Normal Affect, Normal Mood - Skin Additional comments: Right LE: Open ulceration on medial aspect of right medial mallelous with hyperpigmented base. No odor or purulent drainage. Open ulceration noted on lateral aspect of right heel with fibrotic base with hyperpigmented margins showing signs of necrois. No odor, purulent drainage. Left LE: Bandages in place covering digits of left foot, c/d/i no foul odor appreciated Assessment and Plan (1) Osteomyelitis Status: Acute (2) Peripheral vascular disease Status: Chronic (3) ESRD (end stage renal disease) on dialysis Status: Chronic (4) HIV (human immunodeficiency virus infection) Status: Chronic - Assessment and Plan (Free Text) Assessment: Patient is a PMH of HTN, prostate CA, HIV (last CD4 count on record 03/2016 is 349), history of osteomyelitis of left first toe S/P amputation (2015), gout, ESRD who presented with abdominal pain who was admitted fro sepsis secondary to UTI vs wound infection that has since resolved. Patient continues to be worked up for right medial foot non healing ulcer and suspected OM of the left 3rd digit. Vascular studies have shown poor flow of the left lower extremity. Patient s/p angiogram with stent placement of left posterior tibial artery. Pt POD#0 with podiatry for left distal third digit amputation for clinical suspicion of OM. Plan: 1. Osteomyelitis suspicion secondary to right medial malleolus ulcer and exposed bone on left third digit of foot s/p amputation POD#1 - Imaging: MRI, Xray - review reports for full detail - Vascular study showing - moderately abnormal MARLENI, left SFA occlusive disease, bilateral distal SFA, popliteal, tibial disease - Podiatry consulted, appreciate recs - POD#1 from left 3rd digit distal amputation - Wound bandages in place c/d/i - curbside indicates possible dc -ID following, f/u recs - Urine and blood culture, procal ordered - IV abx with intermittent vanc -Vascular consulted, f/u recs - Angiogram yesterday with stent placement of left tibial artery 2. Sepsis - suspected - Temperature 100.5, No leukocytosis, POD#1 - ID following, f/u recs - Urine and blood culture, procal ordered - IV abx with intermittent vanc 3. Peripheral vascular disease - Vascular study showing - moderately abnormal MARLENI, left SFA occlusive disease, bilateral distal SFA, popliteal, tibial disease - Angiogram showing severe b/l trifuraction, tibial, and pedal occlusive disease - Successful left posterior tibial artery angioplasty and focal stent placement - Vascular surgery consulted for PAD possible fem pop vs. fem tib bypass - No intervention with this admission 4. HTN - Patient currently on Cozaar 100mg from 50mg - Metoprolol Tartate 25 BID - hydralazine 25mg PO PRN - Consider increase BB if continued elevated BP - continue to monitor 5. Bladder wall thickening - Abd/Pelvis CT showing bladder wall thickening - Hx of prostate cancer, [facility] - PSA nml - Urology consulted, appreciate recs - No plan for cystoscopy at this time, plan for outpatient follow up 6. HIV - ID consulted and following - Ziagne, epivir, Dolutegravir as per ID 7. ESRD- Renal following for HD - HD Sunday//Sunday - Continue with renagel 8.Hx of gout - Allopurinol 9. 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 COPD - Duoneb PRN GI PPX: Protonix DVT PPX: SCDs Patient seen, examined and case discussed with attending
[2017-07-20] MEDS ORDERED: Potassium Chloride 20 mEq ER Tab PO ONE (14:15)
--- NOTE | 2017-07-20 16:27 | CP.PCM.PN ---
Subjective - Date & Time of Evaluation Date of Evaluation: 07/20/17 Time of Evaluation: 16:26 - Subjective Subjective: Follow up Nephrology Consultation: Assessment: stable foot ulcer with PVD and ? left foor 3rd toe osteo s/p amputation 07/19/17 Hypertensive Chronic Kidney Disease (I12.9) ESRD on HD via permacath (TTS) Anemia (D64.9), HTN (I12.9) HIV on HAART, Left hydroureteronephrosis bladder wall thickening, hx of prostate CA Plan HD tomorrow as per TTS schedule. continue with nephrovite 1 tab/day aransep 125 mcg weekly for anemia (Qthurs). not on VDRA as PTH at goal. pt on weekly vit D lowered dose of binders Hypertension control with meds as ordered. Patient now on max dose of losartan, increased lopressor. prn hydralazine. appreciate evaluation, ID following, podiatry following. MRI foot neg for osteo IR input for PVD appreciated Dose meds/antibiotics for ESRD status. Avoid fleets enema/magnesium based laxatives. Avoid nephrotoxins/NSAIDs Further work up/management as per primary team Thanks for allowing me to participate in care of your patient. Will follow patient with you. Please call if any Qs. Dr Yandel Arechiga Office: [phone] Chief Complaint; ankle pain reason for consult: ESRD HPI: Pt is a 71 y/o M with hx of HIV on HAART, PVD s/p angioplasty, hypertension (10-15 years), ESRD on HD (via permacath) TTS @ [facility], left foot toe amputations, prostate CA presented with complaints of pain in lower abdomen and vomitting 1 episode yesterday. pt was febrile in HD yesterday when blood cx x 2 done (NEGATIVE TILL DATE) and he was given 1 gram vanco and 120 mg genta with HD. pt was advised to go to hospital which he declined. Later , he came to [facility] with mentioned complaints. he feels better now ROS: Denies chest pain, palpitation, leg swelling. no shortness of breath c/o pain at ankle adn upset about it s/p angio 07/18/17 and interventions on LLE by IR was febrile yesterday Physical Examination: General Appearance: Comfortable, in no acute respiratory distress, co-operative Vitals reviewed and noted as below Head; Atraumatic, normocephalic ENT: no ulcers no thrush. Tongue is midline. Oropharynx: no rash or ulcers. EYES: Pupils are equal, round and reactive to light accommodation. Eye muscles and extraocular movement intact. Sclera is anicteric. Neck; supple no lymphadenopathy, no thyromegaly or bruit Lungs: Normal respiratory rate/effort. Breath sounds bilateral clear Heart: Normal rate. s1s2 normal. No rub or gallop. Extremities: no edema. No varicose veins Neurological: Patient is alert, awake and oriented to person, place and time. No focal deficit. Strength bilateral appropriate and equal Skin: Warm and dry. Normal turgor. No rash. Palpitation: Normal elasticity for age Abdomen: Abdomen is soft. Bowel sounds +. There is mild lower abdominal tenderness, no guarding/rigidity no organomegaly Psych: normal insight and normal affect/mood MSK: no joint tenderness or swelling. Digits and nails normal, has rt foot deformity noted with ulcer on medial malleolus. left foot toe amputations in past : kidney or bladder not palpable. Access: permacath Labs/imaging/EKG reviewed. Past medical history, past surgical history, family history, social history, allergy reviewed and noted as below Family hx: sister was on dialysis. Rest non-contributor Objective - Vital Signs/Intake and Output Vital Signs (last 24 hours): Temp Pulse Resp BP Pulse Ox 100.5 F H 79 20 166/83 H 92 L 07/20/17 08:43 07/20/17 08:43 07/20/17 08:43 07/20/17 08:43 07/20/17 08:43 Intake and Output: 07/20/17 07/20/17 06:59 18:59 Intake Total 120 360 Output Total 0 Balance 120 360 - Medications Medications: Current Medications Abacavir Sulfate (Ziagen) 300 mg PO BID [facility] Last Admin: 07/20/17 11:12 Dose: 300 mg Acetaminophen (Tylenol 325mg Tab) 650 mg PO Q4H PRN PRN Reason: Fever >100.4 F Last Admin: 07/20/17 05:54 Dose: 650 mg Albuterol/Ipratropium (Duoneb 3 Mg/0.5 Mg (3 Ml) Ud) 3 ml IH Q2H PRN PRN Reason: Shortness of Breath Allopurinol (Zyloprim) 300 mg PO DAILY [facility] Last Admin: 07/20/17 11:13 Dose: 300 mg Ergocalciferol (Drisdol 50,000 Intl Units Cap) 1 cap PO Q7D [facility] Last Admin: 07/20/17 11:13 Dose: 1 cap Fentanyl (Fentanyl) 25 mcg IV Q5M PRN PRN Reason: Pain, moderate (4-7) Ferrous Sulfate (Feosol) 324 mg PO BID [facility] Last Admin: 07/20/17 11:13 Dose: 324 mg Heparin Sodium (Porcine) (Heparin) 5,000 units SC Q12 [facility] PRN Reason: Protocol Last Admin: 07/20/17 11:25 Dose: 5,000 units Home Med (Home Med) 1 unit PO DAILY [facility] Last Admin: 07/18/17 10:48 Dose: Not Given Hydralazine HCl (Apresoline) 25 mg PO Q4 PRN PRN Reason: Other Last Admin: 07/18/17 21:28 Dose: 25 mg Meropenem 500 mg/ Sodium (Chloride) 50 mls @ 100 mls/hr IVPB Q12 [facility] PRN Reason: Protocol Stop: 07/27/17 10:16 Last Admin: 07/20/17 11:23 Dose: 100 mls/hr Lamivudine (Epivir) 50 mg PO DAILY [facility] Last Admin: 07/20/17 12:08 Dose: 50 mg Losartan Potassium (Cozaar) 100 mg PO DAILY [facility] Last Admin: 07/20/17 11:13 Dose: 100 mg Meclizine HCl (Antivert) 25 mg PO Q8H PRN PRN Reason: Dizziness Metoprolol Tartrate (Lopressor) 100 mg PO BRKDIN [facility] Ondansetron HCl (Zofran Inj) 4 mg IVP DAILY PRN PRN Reason: nausea Pantoprazole Sodium (Protonix Ec Tab) 40 mg PO 0600 [facility] Last Admin: 07/20/17 05:55 Dose: 40 mg Sevelamer HCl (Renagel) 800 mg PO WM [facility] Last Admin: 07/20/17 12:08 Dose: 800 mg Tramadol HCl (Ultram) 50 mg PO Q8H PRN PRN Reason: Pain, moderate (4-7) Last Admin: 11/29/17 21:21 Dose: 50 mg Vitamin B Complex/Vit C/Folic Acid (Nephro-Christel) 1 tab PO DAILY [facility] Last Admin: 07/20/17 11:13 Dose: 1 tab - Labs Labs: 07/20/17 06:50 07/20/17 06:50 PT 13.2 SECONDS (9.4-12.5) H 07/17/17 07:30 INR 1.20 (0.93-1.08) H 07/17/17 07:30 APTT 35.0 Seconds (25.1-36.5) 07/17/17 07:30
--- NOTE | 2017-07-20 18:33 | CP.PCM.PN ---
Subjective - Date & Time of Evaluation Date of Evaluation: 07/20/17 Time of Evaluation: 11:40 - Subjective Subjective: Comfortable, had fevers overnight but no chills, denies cough, no SOB, no headache, no abdominal pain, no diarrhea, but still with some foot pain. Objective - Vital Signs/Intake and Output Vital Signs (last 24 hours): Temp Pulse Resp BP Pulse Ox 100.5 F H 79 20 166/83 H 92 L 07/20/17 08:43 07/20/17 08:43 07/20/17 08:43 07/20/17 08:43 07/20/17 08:43 Intake and Output: 07/20/17 07/20/17 06:59 18:59 Intake Total 120 Output Total 0 Balance 120 - Medications Medications: Current Medications Abacavir Sulfate (Ziagen) 300 mg PO BID [facility] Last Admin: 07/19/17 17:42 Dose: 300 mg Acetaminophen (Tylenol 325mg Tab) 650 mg PO Q4H PRN PRN Reason: Fever >100.4 F Last Admin: 07/20/17 05:54 Dose: 650 mg Albuterol/Ipratropium (Duoneb 3 Mg/0.5 Mg (3 Ml) Ud) 3 ml IH Q2H PRN PRN Reason: Shortness of Breath Allopurinol (Zyloprim) 300 mg PO DAILY [facility] Last Admin: 07/18/17 10:35 Dose: 300 mg Ergocalciferol (Drisdol 50,000 Intl Units Cap) 1 cap PO Q7D [facility] Last Admin: 07/13/17 09:37 Dose: 1 cap Fentanyl (Fentanyl) 25 mcg IV Q5M PRN PRN Reason: Pain, moderate (4-7) Ferrous Sulfate (Feosol) 324 mg PO BID [facility] Last Admin: 07/19/17 17:42 Dose: 324 mg Heparin Sodium (Porcine) (Heparin) 5,000 units SC Q12 [facility] PRN Reason: Protocol Last Admin: 07/18/17 22:00 Dose: Not Given Home Med (Home Med) 1 unit PO DAILY [facility] Last Admin: 07/18/17 10:48 Dose: Not Given Hydralazine HCl (Apresoline) 25 mg PO Q4 PRN PRN Reason: Other Last Admin: 07/18/17 21:28 Dose: 25 mg Meropenem 500 mg/ Sodium (Chloride) 50 mls @ 100 mls/hr IVPB Q12 [facility] PRN Reason: Protocol Stop: 07/27/17 10:16 Vancomycin HCl 2 gm/ Sodium (Chloride) 500 mls @ 170 mls/hr IVPB ONCE ONE PRN Reason: Protocol Stop: 07/20/17 13:11 Lamivudine (Epivir) 50 mg PO DAILY [facility] Last Admin: 07/18/17 10:36 Dose: 50 mg Losartan Potassium (Cozaar) 100 mg PO DAILY [facility] Last Admin: 07/18/17 10:35 Dose: 100 mg Meclizine HCl (Antivert) 25 mg PO Q8H PRN PRN Reason: Dizziness Metoprolol Tartrate (Lopressor) 100 mg PO BRKDIN [facility] Ondansetron HCl (Zofran Inj) 4 mg IVP DAILY PRN PRN Reason: nausea Pantoprazole Sodium (Protonix Ec Tab) 40 mg PO 0600 [facility] Last Admin: 07/20/17 05:55 Dose: 40 mg Sevelamer HCl (Renagel) 800 mg PO WM [facility] Last Admin: 07/20/17 08:40 Dose: 800 mg Tramadol HCl (Ultram) 50 mg PO Q8H PRN PRN Reason: Pain, moderate (4-7) Last Admin: 07/18/17 21:21 Dose: 50 mg Vitamin B Complex/Vit C/Folic Acid (Nephro-Christel) 1 tab PO DAILY [facility] Last Admin: 07/18/17 10:35 Dose: 1 tab - Labs Labs: 07/20/17 06:50 07/20/17 06:50 PT 13.2 SECONDS (9.4-12.5) H 07/17/17 07:30 INR 1.20 (0.93-1.08) H 07/17/17 07:30 APTT 35.0 Seconds (25.1-36.5) 07/17/17 07:30 - Constitutional Appears: Non-toxic, Chronically Ill - Head Exam Head Exam: NORMAL INSPECTION - ENT Exam ENT Exam: Mucous Membranes Moist - Neck Exam Neck Exam: absent: Meningismus - Respiratory Exam Respiratory Exam: Decreased Breath Sounds - Cardiovascular Exam Cardiovascular Exam: +S1, +S2 - GI/Abdominal Exam GI & Abdominal Exam: Soft. absent: Tenderness - Extremities Exam Additional comments: left foot with dressings in place Assessment and Plan - Assessment and Plan (Free Text) Plan: Assessment new onset systemic inflammatory response syndrome post-operatively, R/O new onset sepsis probable left foot 3rd digit osteomyelitis (exposed bone) S/P amputation and debridement POD #1 severe PAD S/P angioplasty of the left tibial artery POD #3 right sided nephrolithiasis history of severe sepsis with acute on chronic renal failure probably due to pyelonephritis with E. coli bacteremia history of C. diff. associated diarrhea Charcot foot, left history of left 2nd toe dry gangrene Chronic renal failure on hemodialysis HTN prostate [place] HIV ([facility] at [facility] 03/2016 349 and virus load < 1.3 log) history of osteomyelitis of left first toe S/P amputation ( 2016) gout history of left foot ulcers Plan will start intermittent IV Vancomycin and MErrem pending OR cx and pathology and will check blood, urine cx, CXR, PCT continue antiretroviral therapy (lamivudine, abacavir on formulary but dolutegravir should be taken by patient from his home supply)
[2017-07-21] MEDS: Pantoprazole 40 mg EC Tab PO SCH (06:34)
[2017-07-21 07:00] LABS: BASO # 0.04 K/mm3 (0.0-2.0); BASO % 0.4 % (0.0-3.0); EOS # 0.9 (0.0-0.7); EOS % 8.6 % (1.5-5.0); GRAN # 4.37 (1.4-6.5); GRAN % 42.1 % (50.0-68.0); HEMATOCRIT 28.1 % (42.0-52.0); LYMPH # 3.8 (1.2-3.4); LYMPH % 36.7 % (22.0-35.0); MEAN CELL VOLUME 98.3 fl (80.0-105.0); MEAN CORPUSCULAR HEMOGLOBIN 31.1 pg (25.0-35.0); MEAN CORPUSCULAR HGB CONC 31.7 g/dl (31.0-37.0); MEAN PLATELET VOLUME 10.5 fl (7.0-11.0); MONO # 1.3 (0.1-0.6); MONO % 12.2 % (1.0-6.0); RED CELL DISTRIBUTION WIDTH 16.2 % (11.5-14.5); WHITE BLOOD COUNT 10.4 10^3/ul (4.5-11.0)
[2017-07-21 08:02] LABS: ALB/GLOB RATIO 0.7 (1.1-1.8); BILIRUBIN,TOTAL 0.4 mg/dL (0.2-1.3); CALCIUM 8.9 mg/dL (8.4-10.5); POTASSIUM 4.2 mmol/L (3.6-5.0); TOTAL PROTEIN 6.8 g/dL (5.8-8.3)
--- NOTE | 2017-07-21 08:39 | CP.PCM.PN ---
Subjective - Date & Time of Evaluation Date of Evaluation: 07/21/17 Time of Evaluation: 08:37 - Subjective Subjective: Podiatry Progress Note 72 year old male patient seen and evaluated at bedside with attending Dr. Dunn POD#2 partial left foot 3rd digit amputation with removal of all non- viable soft tissue and bone. Patient hemodynamically stable, NAD. Denies any acute events overnight. Patient admits to mild soreness to surgical site, along with mild tenderness to right ankle wound. Denies N/V/F/D/C/SOB/calf pain. Offers no other pedal complaints at this time. Objective - Vital Signs/Intake and Output Vital Signs (last 24 hours): Temp Pulse Resp BP Pulse Ox 99.8 F H 74 20 161/82 H 94 L 07/21/17 08:19 07/21/17 08:19 07/21/17 08:19 07/21/17 08:19 07/21/17 08:19 Intake and Output: 07/21/17 07/21/17 06:59 18:59 Intake Total 1500 Balance 1500 - Medications Medications: Current Medications Abacavir Sulfate (Ziagen) 300 mg PO BID [facility] Last Admin: 07/20/17 18:01 Dose: 300 mg Acetaminophen (Tylenol 325mg Tab) 650 mg PO Q4H PRN PRN Reason: Fever >100.4 F Last Admin: 07/20/17 05:54 Dose: 650 mg Albuterol/Ipratropium (Duoneb 3 Mg/0.5 Mg (3 Ml) Ud) 3 ml IH Q2H PRN PRN Reason: Shortness of Breath Allopurinol (Zyloprim) 300 mg PO DAILY [facility] Last Admin: 07/20/17 11:13 Dose: 300 mg Ergocalciferol (Drisdol 50,000 Intl Units Cap) 1 cap PO Q7D [facility] Last Admin: 07/20/17 11:13 Dose: 1 cap Fentanyl (Fentanyl) 25 mcg IV Q5M PRN PRN Reason: Pain, moderate (4-7) Ferrous Sulfate (Feosol) 324 mg PO BID [facility] Last Admin: 07/20/17 18:02 Dose: 324 mg Heparin Sodium (Porcine) (Heparin) 5,000 units SC Q12 [facility] PRN Reason: Protocol Last Admin: 07/20/17 22:12 Dose: 5,000 units Home Med (Home Med) 1 unit PO DAILY [facility] Last Admin: 07/18/17 10:48 Dose: Not Given Hydralazine HCl (Apresoline) 25 mg PO Q4 PRN PRN Reason: Other Last Admin: 07/18/17 21:28 Dose: 25 mg Meropenem 500 mg/ Sodium (Chloride) 50 mls @ 100 mls/hr IVPB Q12 [facility] PRN Reason: Protocol Stop: 07/27/17 10:16 Last Admin: 07/20/17 11:23 Dose: 100 mls/hr Lamivudine (Epivir) 50 mg PO DAILY [facility] Last Admin: 07/20/17 12:08 Dose: 50 mg Losartan Potassium (Cozaar) 100 mg PO DAILY [facility] Last Admin: 07/20/17 11:13 Dose: 100 mg Meclizine HCl (Antivert) 25 mg PO Q8H PRN PRN Reason: Dizziness Metoprolol Tartrate (Lopressor) 100 mg PO BRKDIN [facility] Last Admin: 07/20/17 18:01 Dose: 100 mg Ondansetron HCl (Zofran Inj) 4 mg IVP DAILY PRN PRN Reason: nausea Pantoprazole Sodium (Protonix Ec Tab) 40 mg PO 0600 [facility] Last Admin: 07/21/17 06:34 Dose: 40 mg Sevelamer HCl (Renagel) 800 mg PO WM [facility] Last Admin: 07/20/17 18:01 Dose: 800 mg Tramadol HCl (Ultram) 50 mg PO Q8H PRN PRN Reason: Pain, moderate (4-7) Last Admin: 07/20/17 18:05 Dose: 50 mg Vitamin B Complex/Vit C/Folic Acid (Nephro-Christel) 1 tab PO DAILY [facility] Last Admin: 07/20/17 11:13 Dose: 1 tab - Labs Labs: 07/21/17 06:00 07/21/17 06:00 PT 13.2 SECONDS (9.4-12.5) H 07/17/17 07:30 INR 1.20 (0.93-1.08) H 07/17/17 07:30 APTT 35.0 Seconds (25.1-36.5) 07/17/17 07:30 - Constitutional Appears: Well, Non-toxic, No Acute Distress - Extremities Exam Additional comments: Bilateral lower extremity examination: VASC: B/L non-palpable pedal pulses. Temperature gradient cool to cool. CFT delayed b/l. No edema noted. DERM: Right: Open ulceration noted to Medial aspect of right Medial malleolus measuring 3cm x 2cm x 0.2cm with necrotic base and hyperkeratotic rim. No malodor noted. No purulent drainage noted. No tracking noted. No probe to bone. Mild erythema to margins <0.5cm. No sign of acute infection is noted at this time. Second open ulceration noted to lateral aspect of right heel measuring 2cm x 0.5cm x 0.2cm with fibrotic base with hyperpigmented margins showing signs of necrosis, No malodor noted. No purulent drainage noted. No tracking noted. No probe to bone. Mild erythema to margins <0.5cm. No sign of acute infection is noted at this time LEFT: 3rd digit partial amputation surgical incision appears well coapted with sutures intact and no wound dehiscence noted. Dried/crusted blood noted periwound. NEURO: protective sensation is grossly diminished ORTHO: RIGHT medial aspect of the ankle and medial aspect of the rearfoot and midfoot are tender upon palpation; gross midfoot collapse is appreciated secondary to Charcot. LEFT 1st and 2nd digit amputation noted, with recent partial 3rd digit amputation. - Neurological Exam Neurological Exam: Alert, Awake, Oriented x3 - Psychiatric Exam Psychiatric exam: Normal Affect, Normal Mood Assessment and Plan - Assessment and Plan (Free Text) Assessment: 71 yo male patient 1) POD#1 Partial left foot 3rd digit amputation with removal of all non-viable soft tissue and bone 2) non-healing open ulcerations to bilateral feet Plan: Patient seen and evaluated at bedside with attending Dr. Dunn chart and labs reviewed; WBC 10.4, afebrile Right foot cleansed with normal sterile saline and dressed with betadine DSD Left foot cleansed with normal sterile saline and dressed with betadine, DSD -Will monitor surgical site closely Continue multipodus boots while in bed Arterial duplex: MARLENI - R: 0.51 and L: 0.67 Vascular consult - recommendations appreciated -Successful left posterior tibial artery angioplasty and focal stent placement -Per vascular, consider additional vascular intervention pending healing process of left foot Cultures reveal growth of Corynebacterium and Coag Negative Staph -Continue abx per ID, recs appreciated Xray and MRI - reveals no acute fracture or evidence of OM. patient stable from podiatry standpoint Podiatry will continue to follow while remains in house.
[2017-07-21] MEDS: Multivitamin Vitamin B Complex (Nephro-Vite) Tab PO SCH (09:05)
[2017-07-21] MEDS: Meropenem 500 MG in Sodium Chloride 0.9% 50 ML IVPB SCH ×2 (09:06→21:42)
--- NOTE | 2017-07-21 13:32 | CP.PCM.PN ---
Subjective - Date & Time of Evaluation Date of Evaluation: 07/21/17 Time of Evaluation: 07:19 - Subjective Subjective: Medicine Progress Note for Abiodun Carmona PGY2 Patient seen and examined at bedside. As per nursing staff, there were no acute overnight events. Patient was complaining of R foot pain that was not relieved by Tramadol. He denies chest pain, shortness of breath, numbness/tingling, fever /chills, dysuria/hematuria, nausea/vomiting/diarrhea or constipation. Objective - Vital Signs/Intake and Output Vital Signs (last 24 hours): Temp Pulse Resp BP Pulse Ox 99.8 F H 74 20 161/82 H 94 L 07/21/17 08:19 07/21/17 08:19 07/21/17 08:19 07/21/17 08:19 07/21/17 08:19 Intake and Output: 07/21/17 07/21/17 06:59 18:59 Intake Total 1500 Balance 1500 - Medications Medications: Current Medications Abacavir Sulfate (Ziagen) 300 mg PO BID [facility] Last Admin: 07/21/17 09:03 Dose: 300 mg Acetaminophen (Tylenol 325mg Tab) 650 mg PO Q4H PRN PRN Reason: Fever >100.4 F Last Admin: 07/20/17 05:54 Dose: 650 mg Albuterol/Ipratropium (Duoneb 3 Mg/0.5 Mg (3 Ml) Ud) 3 ml IH Q2H PRN PRN Reason: Shortness of Breath Allopurinol (Zyloprim) 300 mg PO DAILY [facility] Last Admin: 07/21/17 09:03 Dose: 300 mg Ergocalciferol (Drisdol 50,000 Intl Units Cap) 1 cap PO Q7D [facility] Last Admin: 07/20/17 11:13 Dose: 1 cap Ferrous Sulfate (Feosol) 324 mg PO BID [facility] Last Admin: 07/21/17 09:03 Dose: 324 mg Heparin Sodium (Porcine) (Heparin) 5,000 units SC Q12 [facility] PRN Reason: Protocol Last Admin: 07/20/17 22:12 Dose: 5,000 units Home Med (Home Med) 1 unit PO DAILY [facility] Last Admin: 07/18/17 10:48 Dose: Not Given Hydralazine HCl (Apresoline) 25 mg PO Q4 PRN PRN Reason: Other Last Admin: 07/18/17 21:28 Dose: 25 mg Meropenem 500 mg/ Sodium (Chloride) 50 mls @ 100 mls/hr IVPB Q12 [facility] PRN Reason: Protocol Stop: 07/27/17 10:16 Last Admin: 07/21/17 09:06 Dose: 100 mls/hr Lamivudine (Epivir) 50 mg PO DAILY [facility] Last Admin: 07/20/17 12:08 Dose: 50 mg Losartan Potassium (Cozaar) 100 mg PO DAILY [facility] Last Admin: 07/20/17 11:13 Dose: 100 mg Meclizine HCl (Antivert) 25 mg PO Q8H PRN PRN Reason: Dizziness Metoprolol Tartrate (Lopressor) 100 mg PO BRKDIN [facility] Last Admin: 07/21/17 09:03 Dose: Not Given Ondansetron HCl (Zofran Inj) 4 mg IVP DAILY PRN PRN Reason: nausea Oxycodone/Acetaminophen (Percocet 5/325 Mg Tab) 1 tab PO Q6H PRN PRN Reason: Pain, severe (8-10) Stop: 07/24/17 09:24 Pantoprazole Sodium (Protonix Ec Tab) 40 mg PO 0600 [facility] Last Admin: 07/21/17 06:34 Dose: 40 mg Sevelamer HCl (Renagel) 800 mg PO WM [facility] Last Admin: 07/21/17 09:03 Dose: 800 mg Tramadol HCl (Ultram) 50 mg PO Q8H PRN PRN Reason: Pain, moderate (4-7) Last Admin: 07/21/17 09:02 Dose: 50 mg Vitamin B Complex/Vit C/Folic Acid (Nephro-Karuna) 1 tab PO DAILY [facility] Last Admin: 07/21/17 09:05 Dose: 1 tab - Labs Labs: 07/21/17 06:00 07/21/17 06:00 PT 13.2 SECONDS (9.4-12.5) H 07/17/17 07:30 INR 1.20 (0.93-1.08) H 07/17/17 07:30 APTT 35.0 Seconds (25.1-36.5) 07/17/17 07:30 - Constitutional Appears: No Acute Distress - Head Exam Head Exam: ATRAUMATIC, NORMAL INSPECTION, NORMOCEPHALIC - Eye Exam Eye Exam: Normal appearance, PERRL Pupil Exam: NORMAL ACCOMODATION - ENT Exam ENT Exam: Mucous Membranes Moist - Respiratory Exam Respiratory Exam: Clear to Ausculation Bilateral, NORMAL BREATHING PATTERN. absent: Rales, Rhonchi, Wheezes - Cardiovascular Exam Cardiovascular Exam: REGULAR RHYTHM, +S1, +S2. absent: Gallop, Rubs, Murmur - GI/Abdominal Exam GI & Abdominal Exam: Soft, Normal Bowel Sounds. absent: Rigid, Tenderness, Mass , Rebound - Extremities Exam Additional comments: RLE has dressing in place with some bloody drainage on outside LLE had bandage in place- clean and dry - Neurological Exam Neurological Exam: Alert, Awake, CN II-XII Intact, Oriented x3 - Psychiatric Exam Psychiatric exam: Normal Affect, Normal Mood - Skin Skin Exam: Dry, Warm Assessment and Plan - Assessment and Plan (Free Text) Assessment: This is a 72yo male with PMH of HTN, gout, ESRD on HD (T,T,Sat), HIV, osteomyelitis s/p L 1st toe amputation who was admitted for sepsis secondary to UTI versus osteomyelitis. Sepsis has resolved. He was found to have osteomyelitis of L 3rd toe s/p amputation by podiatry. Post op day #1. Vascular studies have shown poor flow of the left lower extremity. Patient s/p angiogram with stent placement of left posterior tibial artery. Plan: 1. Osteomyelitis - R medial malleolus ulcer and L 3rd digit s/p amputation POD #1 - pathology from OR pending - aferile, no leukocytosis - Podiatry consulted- recs appreciated - Continue wound care - Continue Merrem and intermittent Vanco with dialysis - ID consulted-recs appreciated - Repeat blood cultures negative, Urine culture negative - PCT 0.7 - Wound cultures positive for coag neg staph and corynebacterium - Tylenol PRN fever, Zofran prn nausea - Percocet added for severe pain, Tramadol for moderate pain 2. Peripheral vascular disease - MARLENI was moderately abnormal - Angiogram showed severe b/l trifuraction, tibial, and pedal occlusive disease - Patient is s/p L postieror tibial artery angioplasty and stent placement - Continue to monitor peripheral pulses - Vascular consulted as well and recommended no surgical intervention at this time 3. HTN - Home dose of Cozaar increased to 100mg daily - Continue Lopressor 100mg BID - Hydralazine prn SBP>170 or DBP>110 4. Hx of Prostate Ca - Abd/Pelvis CT showed bladder wall thickening - PSA normal - Urology consulted- reports to follow up as outpatient. No cystoscopy at this time - Awaiting records from [place] [facility] for further information on hx of cancer and treatment 5. HIV - Last known CD4 was 349 in March 2016 - ID consulted- recs appreciated - Continue Lamivudine and Abacavir - Dolutegravir should be taken from pts home meds since not available in hospital 6. ESRD on HD - Continue HD //Sun - Nephro consulted- recs appreciated. - Continue Nephro-karuna, Renagel and Drisdol - Avoid nephrotoxic agents and NSAIDs 7. Anemia - Normocytic - Secondary to ESRD - Continue Aranesp weekly during HD 8. Hx of Gout - Continue Allopurinol 9. Hx of COPD - Duoneb prn GI PPX: Protonix DVT PPX: SCDs Dispo: Will be d/c to [facility] with antibiotics to be given during HD once approved by insurance Patient seen, discussed and reviewed with Dr. Angie Walls PGY2
[2017-07-21] MEDS: LamiVUDine 10 mg/ml Syringe PO SCH (15:54)
[2017-07-21] MEDS: Oxycodone/Acetaminophen 5/325 mg Tab PO PRN (16:09)
--- NOTE | 2017-07-21 17:02 | CP.PCM.PN ---
Subjective - Date & Time of Evaluation Date of Evaluation: 07/21/17 Time of Evaluation: 17:01 - Subjective Subjective: renal follow up note please call us at [phone] if any qs. no events overnight Physical Examination: General Appearance: Comfortable, in no acute respiratory distress Head; Atraumatic, normocephalic ENT: no ulcers no thrush. EYES: Sclera is anicteric. Neck; supple Lungs: Normal respiratory rate/effort. Breath sounds bilateral clear Heart: Normal rate. s1s2 normal. No rub or gallop. Extremities: no edema. Neurological: Patient is alert, awake and oriented to person, place and time. No focal deficit Skin: Warm and dry. Normal turgor. Abdomen: Abdomen is soft. Bowel sounds +. Psych: normal insight a MSK: no joint tenderness or swelling. Access: permacath A&P: ESRD/HTN/foot ulcer/anemia/HIV/left hydronephrosis/prostate cancer/anemia HD tts today per schedule lytes reviewed anemia: aransep 125 mcg weekly for anemia continue binders bp continue current meds Objective - Vital Signs/Intake and Output Vital Signs (last 24 hours): Temp Pulse Resp BP Pulse Ox 99.8 F H 74 20 161/82 H 94 L 07/21/17 08:19 07/21/17 08:19 07/21/17 08:19 07/21/17 08:19 07/21/17 08:19 Intake and Output: 07/21/17 07/21/17 06:59 18:59 Intake Total 1500 Balance 1500 - Medications Medications: Current Medications Abacavir Sulfate (Ziagen) 300 mg PO BID [facility] Last Admin: 07/21/17 09:03 Dose: 300 mg Acetaminophen (Tylenol 325mg Tab) 650 mg PO Q4H PRN PRN Reason: Fever >100.4 F Last Admin: 07/20/17 05:54 Dose: 650 mg Albuterol/Ipratropium (Duoneb 3 Mg/0.5 Mg (3 Ml) Ud) 3 ml IH Q2H PRN PRN Reason: Shortness of Breath Allopurinol (Zyloprim) 300 mg PO DAILY [facility] Last Admin: 07/21/17 09:03 Dose: 300 mg Ergocalciferol (Drisdol 50,000 Intl Units Cap) 1 cap PO Q7D [facility] Last Admin: 07/20/17 11:13 Dose: 1 cap Ferrous Sulfate (Feosol) 324 mg PO BID [facility] Last Admin: 07/21/17 09:03 Dose: 324 mg Heparin Sodium (Porcine) (Heparin) 5,000 units SC Q12 [facility] PRN Reason: Protocol Last Admin: 07/21/17 15:54 Dose: Not Given Home Med (Home Med) 1 unit PO DAILY [facility] Last Admin: 07/18/17 10:48 Dose: Not Given Hydralazine HCl (Apresoline) 25 mg PO Q4 PRN PRN Reason: Other Last Admin: 07/18/17 21:28 Dose: 25 mg Meropenem 500 mg/ Sodium (Chloride) 50 mls @ 100 mls/hr IVPB Q12 [facility] PRN Reason: Protocol Stop: 07/27/17 10:16 Last Admin: 07/21/17 09:06 Dose: 100 mls/hr Lamivudine (Epivir) 50 mg PO DAILY [facility] Last Admin: 07/21/17 15:54 Dose: 50 mg Losartan Potassium (Cozaar) 100 mg PO DAILY [facility] Last Admin: 07/21/17 16:07 Dose: Not Given Meclizine HCl (Antivert) 25 mg PO Q8H PRN PRN Reason: Dizziness Metoprolol Tartrate (Lopressor) 100 mg PO BRKDIN [facility] Last Admin: 07/21/17 09:03 Dose: Not Given Ondansetron HCl (Zofran Inj) 4 mg IVP DAILY PRN PRN Reason: nausea Oxycodone/Acetaminophen (Percocet 5/325 Mg Tab) 1 tab PO Q6H PRN PRN Reason: Pain, severe (8-10) Stop: 07/24/17 09:24 Last Admin: 07/21/17 16:09 Dose: 1 tab Pantoprazole Sodium (Protonix Ec Tab) 40 mg PO 0600 [facility] Last Admin: 07/21/17 06:34 Dose: 40 mg Sevelamer HCl (Renagel) 800 mg PO WM [facility] Last Admin: 07/21/17 15:54 Dose: Not Given Tramadol HCl (Ultram) 50 mg PO Q8H PRN PRN Reason: Pain, moderate (4-7) Last Admin: 07/21/17 09:02 Dose: 50 mg Vitamin B Complex/Vit C/Folic Acid (Nephro-Christel) 1 tab PO DAILY [facility] Last Admin: 07/21/17 09:05 Dose: 1 tab - Labs Labs: 07/21/17 06:00 07/21/17 06:00 PT 13.2 SECONDS (9.4-12.5) H 07/17/17 07:30 INR 1.20 (0.93-1.08) H 07/17/17 07:30 APTT 35.0 Seconds (25.1-36.5) 07/17/17 07:30
[2017-07-22] MEDS: Pantoprazole 40 mg EC Tab PO SCH (06:21)
[2017-07-22 07:38] LABS: BASO # 0.03 K/mm3 (0.0-2.0); BASO % 0.3 % (0.0-3.0); EOS # 0.8 (0.0-0.7); EOS % 8.3 % (1.5-5.0); GRAN # 3.6 (1.4-6.5); GRAN % 39.1 % (50.0-68.0); HEMATOCRIT 31.3 % (42.0-52.0); LYMPH # 3.5 (1.2-3.4); LYMPH % 38.3 % (22.0-35.0); MEAN CELL VOLUME 98.7 fl (80.0-105.0); MEAN CORPUSCULAR HEMOGLOBIN 30.9 pg (25.0-35.0); MEAN CORPUSCULAR HGB CONC 31.3 g/dl (31.0-37.0); MEAN PLATELET VOLUME 10.9 fl (7.0-11.0); MONO # 1.3 (0.1-0.6); RED CELL DISTRIBUTION WIDTH 16.2 % (11.5-14.5); WHITE BLOOD COUNT 9.2 10^3/ul (4.5-11.0)
[2017-07-22 08:18] LABS: ALB/GLOB RATIO 0.7 (1.1-1.8); BILIRUBIN,TOTAL 0.5 mg/dL (0.2-1.3); POTASSIUM 3.9 mmol/L (3.6-5.0)
[2017-07-22] MEDS: Oxycodone/Acetaminophen 5/325 mg Tab PO PRN ×2 (08:21→21:01)
--- NOTE | 2017-07-22 09:04 | CP.PCM.PN ---
Addendum entered and electronically signed by Radha Walls DO 07/22/17 10: 11: Correction: DVT ppx is heparin SC Original Note: <Radha Walls - Last Filed: 07/22/17 09:56> Subjective - Date & Time of Evaluation Date of Evaluation: 07/22/17 Time of Evaluation: 09:01 - Subjective Subjective: Medicine Progress Note for Abiodun Jacobs PGY2 Patient seen and examined at bedside. As per nursing staff, there were no acute overnight events. Patient is resting comfortably in bed. He says he still has some pain in his R heel, but it has improved with Percocet. He reports having some constipation, but does not want any medications for that at this time. He denies chest pain, shortness of breath, nausea/vomiting/diarrhea, fever/chills, numbness/tingling, dysuria or hematuria. Objective - Vital Signs/Intake and Output Vital Signs (last 24 hours): Temp Pulse Resp BP Pulse Ox 97.9 F 78 18 158/83 H 96 07/22/17 08:17 07/22/17 08:20 07/22/17 08:17 07/22/17 08:20 07/22/17 08:17 Intake and Output: 07/22/17 07/22/17 06:59 18:59 Intake Total 120 Balance 120 - Medications Medications: Current Medications Abacavir Sulfate (Ziagen) 300 mg PO BID [facility] Last Admin: 07/21/17 17:24 Dose: 300 mg Acetaminophen (Tylenol 325mg Tab) 650 mg PO Q4H PRN PRN Reason: Fever >100.4 F Last Admin: 07/20/17 05:54 Dose: 650 mg Albuterol/Ipratropium (Duoneb 3 Mg/0.5 Mg (3 Ml) Ud) 3 ml IH Q2H PRN PRN Reason: Shortness of Breath Allopurinol (Zyloprim) 300 mg PO DAILY [facility] Last Admin: 07/21/17 09:03 Dose: 300 mg Ergocalciferol (Drisdol 50,000 Intl Units Cap) 1 cap PO Q7D [facility] Last Admin: 07/20/17 11:13 Dose: 1 cap Ferrous Sulfate (Feosol) 324 mg PO BID [facility] Last Admin: 07/21/17 17:24 Dose: 324 mg Heparin Sodium (Porcine) (Heparin) 5,000 units SC Q12 [facility] PRN Reason: Protocol Last Admin: 07/21/17 21:42 Dose: 5,000 units Home Med (Home Med) 1 unit PO DAILY [facility] Last Admin: 07/18/17 10:48 Dose: Not Given Hydralazine HCl (Apresoline) 25 mg PO Q4 PRN PRN Reason: Other Last Admin: 07/18/17 21:28 Dose: 25 mg Meropenem 500 mg/ Sodium (Chloride) 50 mls @ 100 mls/hr IVPB Q12 [facility] PRN Reason: Protocol Stop: 07/27/17 10:16 Last Admin: 07/21/17 21:42 Dose: 100 mls/hr Lamivudine (Epivir) 50 mg PO DAILY [facility] Last Admin: 07/21/17 15:54 Dose: 50 mg Losartan Potassium (Cozaar) 100 mg PO DAILY [facility] Last Admin: 07/21/17 16:07 Dose: Not Given Meclizine HCl (Antivert) 25 mg PO Q8H PRN PRN Reason: Dizziness Metoprolol Tartrate (Lopressor) 100 mg PO BRKDIN [facility] Last Admin: 07/22/17 08:20 Dose: 100 mg Ondansetron HCl (Zofran Inj) 4 mg IVP DAILY PRN PRN Reason: nausea Oxycodone/Acetaminophen (Percocet 5/325 Mg Tab) 1 tab PO Q6H PRN PRN Reason: Pain, severe (8-10) Stop: 07/24/17 09:24 Last Admin: 07/22/17 08:21 Dose: 1 tab Pantoprazole Sodium (Protonix Ec Tab) 40 mg PO 0600 [facility] Last Admin: 07/22/17 06:21 Dose: 40 mg Sevelamer HCl (Renagel) 800 mg PO WM [facility] Last Admin: 07/22/17 08:21 Dose: 800 mg Tramadol HCl (Ultram) 50 mg PO Q8H PRN PRN Reason: Pain, moderate (4-7) Last Admin: 07/21/17 09:02 Dose: 50 mg Vitamin B Complex/Vit C/Folic Acid (Nephro-Karuna) 1 tab PO DAILY [facility] Last Admin: 07/21/17 09:05 Dose: 1 tab - Labs Labs: 07/22/17 06:45 07/22/17 06:45 PT 13.2 SECONDS (9.4-12.5) H 07/17/17 07:30 INR 1.20 (0.93-1.08) H 07/17/17 07:30 APTT 35.0 Seconds (25.1-36.5) 07/17/17 07:30 - Constitutional Appears: No Acute Distress - Head Exam Head Exam: ATRAUMATIC, NORMAL INSPECTION, NORMOCEPHALIC - Eye Exam Eye Exam: Normal appearance, PERRL Pupil Exam: NORMAL ACCOMODATION, PERRL - ENT Exam ENT Exam: Mucous Membranes Moist - Neck Exam Neck Exam: Full ROM - Respiratory Exam Respiratory Exam: Clear to Ausculation Bilateral, NORMAL BREATHING PATTERN. absent: Rales, Rhonchi, Wheezes - Cardiovascular Exam Cardiovascular Exam: REGULAR RHYTHM, +S1, +S2. absent: Gallop, Rubs, Murmur - GI/Abdominal Exam GI & Abdominal Exam: Soft, Normal Bowel Sounds. absent: Rigid, Tenderness, Mass , Rebound - Extremities Exam Extremities Exam: absent: Pedal Edema Additional comments: Dressing on L foot in place- some bloody drainage seen R heel dressing in place- clean and dry - Neurological Exam Neurological Exam: Alert, Awake, CN II-XII Intact, Oriented x3 - Psychiatric Exam Psychiatric exam: Normal Affect, Normal Mood - Skin Skin Exam: Dry, Warm Assessment and Plan - Assessment and Plan (Free Text) Assessment: This is a 72yo male with PMH of HTN, gout, ESRD on HD (T,T,Sat), HIV, osteomyelitis s/p L 1st toe amputation who was admitted for sepsis secondary to UTI versus osteomyelitis. Sepsis has resolved. He was found to have osteomyelitis of L 3rd toe s/p amputation by podiatry. Post op day #2. Vascular studies have shown poor flow of the left lower extremity. Patient s/p angiogram with stent placement of left posterior tibial artery. Patient had HD yesterday without any complications. Plan: 1. Osteomyelitis - afebrile for past 24hrs, no leukocytosis - R medial malleolus ulcer and L 3rd digit s/p amputation POD #2 - MRI L foot showed no evidence of osteo - pathology from OR pending for confirmation of osteo - Podiatry consulted- recs appreciated - ID consulted-recs appreciated - Merrem and intermittent Vanco with dialysis - Percocet, Tramadol - Repeat blood cultures negative, Urine culture negative - Wound cultures positive for coag neg staph and corynebacterium - Tylenol PRN fever, Zofran prn nausea - Continue Wound care 2. Peripheral vascular disease - Patient is s/p L postieror tibial artery angioplasty and stent placement - MARLENI was moderately abnormal - Angiogram showed severe b/l trifuraction, tibial, and pedal occlusive disease - Vascular consulted as well and recommended no surgical intervention at this time - Monitor peripheral pulses 3. HTN - Cozaar 100mg daily, Lopressor 100mg BID - Hydralazine prn 4. Hx of Prostate Ca - PSA normal - Abd/Pelvis CT showed bladder wall thickening - Urology consulted- reports to follow up as outpatient. They do no recommend cystoscopy as inpatient - Awaiting records from [facility] 5. HIV - CD4 was 349 in March 2016 - Lamivudine and Abacavir - Dolutegravir (home med) - ID consulted- recs appreciated 6. ESRD on HD - HD yesterday without complications - Continue HD //Sun - Nephro consulted- recs appreciated. - Continue Nephro-karuna, Renagel and Drisdol - Avoid nephrotoxic agents and NSAIDs 7. Anemia (stable- normocytic) - Secondary to ESRD - Continue Aranesp weekly during HD - Continue Feosol 8. Hx of Gout - Allopurinol 9. Hx of COPD - Duoneb prn GI PPX: Protonix DVT PPX: SCDs Dispo: D/c to [facility] once medically cleared. Patient seen, discussed and reviewed with Dr. Kem Walls PGY2 <Parag Brownlee - Last Filed: 07/23/17 06:39> Subjective - Subjective Subjective: discussed w/ resident at length went over meds labs orders and plan Objective - Vital Signs/Intake and Output Vital Signs (last 24 hours): Temp Pulse Resp BP Pulse Ox 98.3 F 75 17 167/80 H 96 07/22/17 15:59 07/22/17 17:39 07/22/17 15:59 07/22/17 17:39 07/22/17 15:59 Intake and Output: 07/22/17 07/23/17 18:59 06:59 Intake Total 760 660 Balance 760 660 - Medications Medications: Current Medications Abacavir Sulfate (Ziagen) 300 mg PO BID [facility] Last Admin: 07/22/17 17:39 Dose: 300 mg Acetaminophen (Tylenol 325mg Tab) 650 mg PO Q4H PRN PRN Reason: Fever >100.4 F Last Admin: 07/20/17 05:54 Dose: 650 mg Albuterol/Ipratropium (Duoneb 3 Mg/0.5 Mg (3 Ml) Ud) 3 ml IH Q2H PRN PRN Reason: Shortness of Breath Allopurinol (Zyloprim) 300 mg PO DAILY [facility] Last Admin: 07/22/17 10:48 Dose: 300 mg Ergocalciferol (Drisdol 50,000 Intl Units Cap) 1 cap PO Q7D [facility] Last Admin: 07/20/17 11:13 Dose: 1 cap Ferrous Sulfate (Feosol) 324 mg PO BID [facility] Last Admin: 07/22/17 17:39 Dose: 324 mg Heparin Sodium (Porcine) (Heparin) 5,000 units SC Q12 [facility] PRN Reason: Protocol Last Admin: 07/22/17 21:00 Dose: 5,000 units Home Med (Home Med) 1 unit PO DAILY [facility] Last Admin: 07/18/17 10:48 Dose: Not Given Hydralazine HCl (Apresoline) 25 mg PO Q4 PRN PRN Reason: Other Last Admin: 07/18/17 21:28 Dose: 25 mg Meropenem 500 mg/ Sodium (Chloride) 50 mls @ 100 mls/hr IVPB Q12 [facility] PRN Reason: Protocol Stop: 07/27/17 10:16 Last Admin: 07/22/17 21:01 Dose: 100 mls/hr Lamivudine (Epivir) 150 mg PO DAILY [facility] Last Admin: 07/22/17 10:57 Dose: 150 mg Losartan Potassium (Cozaar) 100 mg PO DAILY [facility] Last Admin: 07/22/17 10:48 Dose: 100 mg Meclizine HCl (Antivert) 25 mg PO Q8H PRN PRN Reason: Dizziness Metoprolol Tartrate (Lopressor) 100 mg PO BRKDIN [facility] Last Admin: 07/22/17 17:39 Dose: 100 mg Ondansetron HCl (Zofran Inj) 4 mg IVP DAILY PRN PRN Reason: nausea Oxycodone/Acetaminophen (Percocet 5/325 Mg Tab) 1 tab PO Q6H PRN PRN Reason: Pain, severe (8-10) Stop: 07/24/17 09:24 Last Admin: 07/22/17 21:01 Dose: 1 tab Pantoprazole Sodium (Protonix Ec Tab) 40 mg PO 0600 [facility] Last Admin: 07/23/17 06:16 Dose: 40 mg Sevelamer HCl (Renagel) 800 mg PO WM [facility] Last Admin: 07/22/17 17:39 Dose: 800 mg Tramadol HCl (Ultram) 50 mg PO Q8H PRN PRN Reason: Pain, moderate (4-7) Last Admin: 07/21/17 09:02 Dose: 50 mg Vitamin B Complex/Vit C/Folic Acid (Nephro-Karuna) 1 tab PO DAILY [facility] Last Admin: 07/22/17 10:48 Dose: 1 tab - Labs Labs: 07/22/17 06:45 07/22/17 06:45 PT 13.2 SECONDS (9.4-12.5) H 07/17/17 07:30 INR 1.20 (0.93-1.08) H 07/17/17 07:30 APTT 35.0 Seconds (25.1-36.5) 07/17/17 07:30
[2017-07-22] MEDS: Multivitamin Vitamin B Complex (Nephro-Vite) Tab PO SCH (10:48)
[2017-07-22] MEDS: Meropenem 500 MG in Sodium Chloride 0.9% 50 ML IVPB SCH ×2 (10:53→21:01)
--- NOTE | 2017-07-22 10:56 | CP.PCM.PN ---
Subjective - Date & Time of Evaluation Date of Evaluation: 07/22/17 Time of Evaluation: 10:54 - Subjective Subjective: Podiatry Progress Note 72 year old male patient seen and evaluated at bedside POD#3 partial left foot 3rd digit amputation with removal of all non-viable soft tissue and bone. Patient hemodynamically stable, NAD. Denies any acute events overnight. Patient admits to mild soreness to surgical site, along with mild tenderness to right ankle wound. Denies N/V/F/D/C/SOB/calf pain. Offers no other pedal complaints at this time. Objective - Vital Signs/Intake and Output Vital Signs (last 24 hours): Temp Pulse Resp BP Pulse Ox 97.9 F 78 18 158/83 H 96 07/22/17 08:17 07/22/17 08:20 07/22/17 08:17 07/22/17 08:20 07/22/17 08:17 Intake and Output: 07/22/17 07/22/17 06:59 18:59 Intake Total 120 Balance 120 - Medications Medications: Current Medications Abacavir Sulfate (Ziagen) 300 mg PO BID [facility] Last Admin: 07/21/17 17:24 Dose: 300 mg Acetaminophen (Tylenol 325mg Tab) 650 mg PO Q4H PRN PRN Reason: Fever >100.4 F Last Admin: 07/20/17 05:54 Dose: 650 mg Albuterol/Ipratropium (Duoneb 3 Mg/0.5 Mg (3 Ml) Ud) 3 ml IH Q2H PRN PRN Reason: Shortness of Breath Allopurinol (Zyloprim) 300 mg PO DAILY [facility] Last Admin: 07/21/17 09:03 Dose: 300 mg Ergocalciferol (Drisdol 50,000 Intl Units Cap) 1 cap PO Q7D [facility] Last Admin: 07/20/17 11:13 Dose: 1 cap Ferrous Sulfate (Feosol) 324 mg PO BID [facility] Last Admin: 07/21/17 17:24 Dose: 324 mg Heparin Sodium (Porcine) (Heparin) 5,000 units SC Q12 [facility] PRN Reason: Protocol Last Admin: 07/21/17 21:42 Dose: 5,000 units Home Med (Home Med) 1 unit PO DAILY [facility] Last Admin: 07/18/17 10:48 Dose: Not Given Hydralazine HCl (Apresoline) 25 mg PO Q4 PRN PRN Reason: Other Last Admin: 07/18/17 21:28 Dose: 25 mg Meropenem 500 mg/ Sodium (Chloride) 50 mls @ 100 mls/hr IVPB Q12 [facility] PRN Reason: Protocol Stop: 07/27/17 10:16 Last Admin: 07/21/17 21:42 Dose: 100 mls/hr Lamivudine (Epivir) 150 mg PO DAILY [facility] Losartan Potassium (Cozaar) 100 mg PO DAILY [facility] Last Admin: 07/21/17 16:07 Dose: Not Given Meclizine HCl (Antivert) 25 mg PO Q8H PRN PRN Reason: Dizziness Metoprolol Tartrate (Lopressor) 100 mg PO BRKDIN [facility] Last Admin: 07/22/17 08:20 Dose: 100 mg Ondansetron HCl (Zofran Inj) 4 mg IVP DAILY PRN PRN Reason: nausea Oxycodone/Acetaminophen (Percocet 5/325 Mg Tab) 1 tab PO Q6H PRN PRN Reason: Pain, severe (8-10) Stop: 07/24/17 09:24 Last Admin: 07/22/17 08:21 Dose: 1 tab Pantoprazole Sodium (Protonix Ec Tab) 40 mg PO 0600 [facility] Last Admin: 07/22/17 06:21 Dose: 40 mg Sevelamer HCl (Renagel) 800 mg PO WM [facility] Last Admin: 07/22/17 08:21 Dose: 800 mg Tramadol HCl (Ultram) 50 mg PO Q8H PRN PRN Reason: Pain, moderate (4-7) Last Admin: 07/21/17 09:02 Dose: 50 mg Vitamin B Complex/Vit C/Folic Acid (Nephro-Christel) 1 tab PO DAILY [facility] Last Admin: 07/21/17 09:05 Dose: 1 tab - Labs Labs: 07/22/17 06:45 07/22/17 06:45 PT 13.2 SECONDS (9.4-12.5) H 07/17/17 07:30 INR 1.20 (0.93-1.08) H 07/17/17 07:30 APTT 35.0 Seconds (25.1-36.5) 07/17/17 07:30 - Constitutional Appears: Well, Non-toxic, No Acute Distress - Extremities Exam Additional comments: Bilateral lower extremity examination: VASC: B/L non-palpable pedal pulses. Temperature gradient cool to cool. CFT delayed b/l. No edema noted. DERM: Right: Open ulceration noted to Medial aspect of right Medial malleolus measuring 3cm x 2cm x 0.2cm with necrotic base and hyperkeratotic rim. No malodor noted. No purulent drainage noted. No tracking noted. No probe to bone. Mild erythema to margins <0.5cm. No sign of acute infection is noted at this time. Second open ulceration noted to lateral aspect of right heel measuring 2cm x 0.5cm x 0.2cm with fibrotic base with hyperpigmented margins showing signs of necrosis, No malodor noted. No purulent drainage noted. No tracking noted. No probe to bone. Mild erythema to margins <0.5cm. No sign of acute infection is noted at this time LEFT: 3rd digit partial amputation surgical incision appears well coapted with sutures intact and no wound dehiscence noted. Dried/crusted blood noted periwound. NEURO: protective sensation is grossly diminished ORTHO: RIGHT medial aspect of the ankle and medial aspect of the rearfoot and midfoot are tender upon palpation; gross midfoot collapse is appreciated secondary to Charcot. LEFT 1st and 2nd digit amputation noted, with recent partial 3rd digit amputation. - Neurological Exam Neurological Exam: Alert, Awake, Oriented x3 - Psychiatric Exam Psychiatric exam: Normal Affect, Normal Mood Assessment and Plan - Assessment and Plan (Free Text) Assessment: 71 yo male patient 1) POD#3 Partial left foot 3rd digit amputation with removal of all non-viable soft tissue and bone 2) non-healing open ulcerations to bilateral feet Plan: Patient seen and evaluated at bedside discussed with attending Dr. Dunn chart and labs reviewed; WBC 9.2, afebrile Right foot cleansed with normal sterile saline and dressed with betadine DSD Left foot cleansed with normal sterile saline and dressed with betadine, DSD -Will monitor surgical site closely Continue multipodus boots while in bed Arterial duplex: MARLENI - R: 0.51 and L: 0.67 Vascular consult - recommendations appreciated -Successful left posterior tibial artery angioplasty and focal stent placement -Per vascular, consider additional vascular intervention pending healing process of left foot Cultures reveal growth of Corynebacterium and Coag Negative Staph -Continue abx per ID, recs appreciated Xray and MRI - reveals no acute fracture or evidence of OM. patient stable from podiatry standpoint Podiatry will continue to follow while remains in house.
[2017-07-22] MEDS: LamiVUDine 10 mg/ml Syringe PO SCH (11:46)
--- NOTE | 2017-07-22 20:55 | PN ---
DATE: 07/22/2017 SUBJECTIVE: The patient is in bed in no acute distress. PHYSICAL EXAMINATION: VITAL SIGNS: On exam, temperature is 97 and T-max is 101 on 07/19/2017, blood pressure is 150/80, respiratory rate of 16. HEENT: Unremarkable. NECK: Supple. LUNGS: Have decreased breath sounds. HEART: Normal S1 and S2. ABDOMEN: Soft. LABORATORY DATA: Reveals the patient's white count of 9.2, hemoglobin of 9.8, platelets of 360. Chemistries reveal a BUN of 18, creatinine of 3.8, procalcitonin of 0.7. Urinalysis is noted. Urine wbc's are too numerous to count. Microbiology reveals the blood cultures are negative. Urine cultures are negative. progress note is reviewed from today. 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 Had angioplasty of the left tibial artery, that is postprocedure day #5 with right-sided nephrolithiasis, history of positive HIV and with relatively good T-cells, undetectable polymerase chain reaction. On intermittent vancomycin, meropenem, and the patient is on dolutegravir, Abacavir, and lamivudine for his human immunodeficiency virus. We will continue present course. Check on the final cultures and the pathology. Follow closely with you. Cesar Flowers MD
[2017-07-23] MEDS: Pantoprazole 40 mg EC Tab PO SCH (06:16)
[2017-07-23 07:12] LABS: BASO # 0.02 K/mm3 (0.0-2.0); BASO % 0.2 % (0.0-3.0); EOS # 0.6 (0.0-0.7); EOS % 7.2 % (1.5-5.0); GRAN # 4.18 (1.4-6.5); GRAN % 46.8 % (50.0-68.0); HEMATOCRIT 30.1 % (42.0-52.0); LYMPH % 33.9 % (22.0-35.0); MEAN CORPUSCULAR HEMOGLOBIN 30.6 pg (25.0-35.0); MEAN CORPUSCULAR HGB CONC 31.2 g/dl (31.0-37.0); MEAN PLATELET VOLUME 10.2 fl (7.0-11.0); MONO # 1.1 (0.1-0.6); MONO % 11.9 % (1.0-6.0); RED CELL DISTRIBUTION WIDTH 16.6 % (11.5-14.5); WHITE BLOOD COUNT 8.9 10^3/ul (4.5-11.0)
[2017-07-23 07:34] LABS: ALB/GLOB RATIO 0.8 (1.1-1.8); BILIRUBIN,TOTAL 0.5 mg/dL (0.2-1.3); CALCIUM 9.2 mg/dL (8.4-10.5); POTASSIUM 3.9 mmol/L (3.6-5.0); TOTAL PROTEIN 6.6 g/dL (5.8-8.3)
[2017-07-23 08:17] VITALS: BP 159/69; PULSE 74; RESP 20; TEMP 99.9; O2SAT 94
--- NOTE | 2017-07-23 09:13 | PN ---
DATE: 07/21/2017 SUBJECTIVE: The patient is in bed, in no acute distress, nontoxic. No fevers or chills. PHYSICAL EXAMINATION: VITAL SIGNS: Temperature is 98, blood pressure is 160/70, respiratory rate of 20. HEENT: Unremarkable. NECK: Supple. LUNGS: Decreased breath sounds. HEART: Normal S1, S2. ABDOMEN: Soft, nontender. LABORATORY EXAMINATION: Reveals the white count of 10.4, hemoglobin of 8. Chemistries reveal BUN of 27, creatinine of 5.2, procalcitonin 0.7. Urinalysis is noted. Hepatitis is negative. Microbiology is noted. The blood cultures have no growth. Review of orders revealed the patient to be on meropenem, vancomycin was given, Abacavir, and lamivudine. ASSESSMENT AND PLAN: This is a 72-year-old male, seen early this morning in room 569, bed 2, who appeared to be comfortable and with systemic inflammatory response syndrome postoperatively, probable left foot third digit osteomyelitis, exposed bone status post amputation postprocedure day #2 with severe peripheral artery disease status post angioplasty to the left tibial artery and postprocedure day after that is day #4 with a history of right-sided nephrolithiasis and human immunodeficiency virus, on meropenem and intermittent vancomycin. We will follow closely with you. Cesar Flowers MD
[2017-07-23] MEDS: Multivitamin Vitamin B Complex (Nephro-Vite) Tab PO SCH (09:33)
[2017-07-23] MEDS: Meropenem 500 MG in Sodium Chloride 0.9% 50 ML IVPB SCH (09:35)
[2017-07-23] MEDS: Oxycodone/Acetaminophen 5/325 mg Tab PO PRN (11:47)
--- NOTE | 2017-07-23 14:51 | PCM.URO ---
Urology Progress Note - Objective Lab Studies: Reviewed (no gu changes /will continue to follow along) Lab Results Last 24 Hours: Laboratory Results - last 24 hr 07/23/17 07/23/17 06:30 06:30 WBC 8.9 RBC 3.07 L Hgb 9.4 L Hct 30.1 L MCV 98.0 MCH 30.6 MCHC 31.2 RDW 16.6 H Plt Count 338 MPV 10.2 Gran % 46.8 L Lymph % (Auto) 33.9 [place] % (Auto) 11.9 H Eos % (Auto) 7.2 H Baso % (Auto) 0.2 Gran # 4.18 Lymph # 3.0 [place] # 1.1 H Eos # 0.6 Baso # 0.02 Sodium 137 Potassium 3.9 Chloride 102 Carbon Dioxide 27 Anion Gap 12 BUN 27 H Creatinine 5.1 H Est GFR ( Amer) 14 Est GFR (Non-Af Amer) 11 Random Glucose 94 Calcium 9.2 Total Bilirubin 0.5 AST 33 ALT 17 Alkaline Phosphatase 78 Total Protein 6.6 Albumin 2.9 L Globulin 3.8 Albumin/Globulin Ratio 0.8 L Intake & Output: Intake & Output 07/22/17 07/23/17 07/23/17 18:59 06:59 18:59 Intake Total 760 660 Balance 760 660 Weight 149 lb 4.8 oz Intake: Oral 760 660 Other: # Voids Urine, Voided 0 # Bowel Movements 0 Vital Signs: Vital Signs - 24 hr 07/22/17 07/22/17 07/23/17 15:59 17:39 07:30 Temperature 98.3 F 99.9 F H Pulse Rate 76 75 74 Respiratory 17 20 Rate Blood Pressure 167/80 H 167/80 H 159/69 H O2 Sat by Pulse 96 94 L Oximetry
--- NOTE | 2017-07-23 15:41 | CP.PCM.PN ---
Subjective - Date & Time of Evaluation Date of Evaluation: 07/23/17 Time of Evaluation: 15:40 - Subjective Subjective: Follow up Nephrology Consultation: Assessment: stable foot ulcer with PVD and ? left foor 3rd toe osteo s/p amputation 07/19/17 Hypertensive Chronic Kidney Disease (I12.9) ESRD on HD via permacath (TTS) Anemia (D64.9), HTN (I12.9) HIV on HAART, Left hydroureteronephrosis bladder wall thickening, hx of prostate CA Plan HD tomorrow as per TTS schedule. continue with nephrovite 1 tab/day aransep 125 mcg weekly for anemia (Qthurs). not on VDRA as PTH at goal. pt on weekly vit D lowered dose of binders Hypertension control with meds as ordered. Patient now on max dose of losartan, increased lopressor. prn hydralazine. will add norvasc 5 mg if BP consistently > 160/90 appreciate evaluation, ID following, podiatry following. MRI foot neg for osteo IR input for PVD appreciated Dose meds/antibiotics for ESRD status. Avoid fleets enema/magnesium based laxatives. Avoid nephrotoxins/NSAIDs Further work up/management as per primary team Thanks for allowing me to participate in care of your patient. Will follow patient with you. Please call if any Qs. Dr Yandel Arechiga Office: [phone] Chief Complaint; ankle pain reason for consult: ESRD HPI: Pt is a 71 y/o M with hx of HIV on HAART, PVD s/p angioplasty, hypertension (10-15 years), ESRD on HD (via permacath) TTS @ [facility], left foot toe amputations, prostate CA presented with complaints of pain in lower abdomen and vomitting 1 episode yesterday. pt was febrile in HD yesterday when blood cx x 2 done (NEGATIVE TILL DATE) and he was given 1 gram vanco and 120 mg genta with HD. pt was advised to go to hospital which he declined. Later , he came to [facility] with mentioned complaints. he feels better now ROS: Denies chest pain, palpitation, leg swelling. no shortness of breath c/o pain at ankle Rt side s/p angio 07/18/17 and interventions on LLE by IR Physical Examination: General Appearance: Comfortable, in no acute respiratory distress, co-operative Vitals reviewed and noted as below Head; Atraumatic, normocephalic ENT: no ulcers no thrush. Tongue is midline. Oropharynx: no rash or ulcers. EYES: Pupils are equal, round and reactive to light accommodation. Eye muscles and extraocular movement intact. Sclera is anicteric. Neck; supple no lymphadenopathy, no thyromegaly or bruit Lungs: Normal respiratory rate/effort. Breath sounds bilateral clear Heart: Normal rate. s1s2 normal. No rub or gallop. Extremities: no edema. No varicose veins Neurological: Patient is alert, awake and oriented to person, place and time. No focal deficit. Strength bilateral appropriate and equal Skin: Warm and dry. Normal turgor. No rash. Palpitation: Normal elasticity for age Abdomen: Abdomen is soft. Bowel sounds +. There is mild lower abdominal tenderness, no guarding/rigidity no organomegaly Psych: normal insight and normal affect/mood MSK: no joint tenderness or swelling. Digits and nails normal, has rt foot deformity noted with ulcer on medial malleolus. left foot 3rd toe amputations : kidney or bladder not palpable. Access: permacath Labs/imaging/EKG reviewed. Past medical history, past surgical history, family history, social history, allergy reviewed and noted as below Family hx: sister was on dialysis. Rest non-contributor Objective - Vital Signs/Intake and Output Vital Signs (last 24 hours): Temp Pulse Resp BP Pulse Ox 99.9 F H 74 20 159/69 H 94 L 07/23/17 07:30 07/23/17 07:30 07/23/17 07:30 07/23/17 07:30 07/23/17 07:30 Intake and Output: 07/23/17 07/23/17 06:59 18:59 Intake Total 660 480 Balance 660 480 - Medications Medications: Current Medications Abacavir Sulfate (Ziagen) 300 mg PO BID [facility] Last Admin: 07/23/17 09:33 Dose: 300 mg Acetaminophen (Tylenol 325mg Tab) 650 mg PO Q4H PRN PRN Reason: Fever >100.4 F Last Admin: 07/20/17 05:54 Dose: 650 mg Albuterol/Ipratropium (Duoneb 3 Mg/0.5 Mg (3 Ml) Ud) 3 ml IH Q2H PRN PRN Reason: Shortness of Breath Allopurinol (Zyloprim) 300 mg PO DAILY [facility] Last Admin: 07/23/17 09:33 Dose: 300 mg Ergocalciferol (Drisdol 50,000 Intl Units Cap) 1 cap PO Q7D [facility] Last Admin: 07/20/17 11:13 Dose: 1 cap Ferrous Sulfate (Feosol) 324 mg PO BID [facility] Last Admin: 07/23/17 09:33 Dose: 324 mg Heparin Sodium (Porcine) (Heparin) 5,000 units SC Q12 [facility] PRN Reason: Protocol Last Admin: 07/23/17 09:34 Dose: 5,000 units Home Med (Home Med) 1 unit PO DAILY [facility] Last Admin: 07/18/17 10:48 Dose: Not Given Hydralazine HCl (Apresoline) 25 mg PO Q4 PRN PRN Reason: Other Last Admin: 07/18/17 21:28 Dose: 25 mg Meropenem 500 mg/ Sodium (Chloride) 50 mls @ 100 mls/hr IVPB Q12 [facility] PRN Reason: Protocol Stop: 07/27/17 10:16 Last Admin: 07/23/17 09:35 Dose: 100 mls/hr Lamivudine (Epivir) 150 mg PO DAILY [facility] Last Admin: 07/23/17 09:33 Dose: 150 mg Losartan Potassium (Cozaar) 100 mg PO DAILY [facility] Last Admin: 07/23/17 09:33 Dose: 100 mg Meclizine HCl (Antivert) 25 mg PO Q8H PRN PRN Reason: Dizziness Metoprolol Tartrate (Lopressor) 100 mg PO BRKDIN [facility] Last Admin: 07/23/17 08:07 Dose: 100 mg Ondansetron HCl (Zofran Inj) 4 mg IVP DAILY PRN PRN Reason: nausea Oxycodone/Acetaminophen (Percocet 5/325 Mg Tab) 1 tab PO Q6H PRN PRN Reason: Pain, severe (8-10) Stop: 07/24/17 09:24 Last Admin: 07/23/17 11:47 Dose: 1 tab Pantoprazole Sodium (Protonix Ec Tab) 40 mg PO 0600 [facility] Last Admin: 07/23/17 06:16 Dose: 40 mg Sevelamer HCl (Renagel) 800 mg PO WM [facility] Last Admin: 07/23/17 11:47 Dose: 800 mg Tramadol HCl (Ultram) 50 mg PO Q8H PRN PRN Reason: Pain, moderate (4-7) Last Admin: 07/21/17 09:02 Dose: 50 mg Vitamin B Complex/Vit C/Folic Acid (Nephro-Christel) 1 tab PO DAILY [facility] Last Admin: 07/23/17 09:33 Dose: 1 tab - Labs Labs: 07/23/17 06:30 07/23/17 06:30 PT 13.2 SECONDS (9.4-12.5) H 07/17/17 07:30 INR 1.20 (0.93-1.08) H 07/17/17 07:30 APTT 35.0 Seconds (25.1-36.5) 07/17/17 07:30
--- NOTE | 2017-07-23 17:58 | CP.PCM.DIS ---
Provider - Provider Date of Admission: 07/06/17 03:28 Attending physician: Bal Adams MD Primary care physician: [facility] in [place] Consults: Infectious Disease: Dr. Raza Hernandez, Dr. Issa Sharif Nephrology: Dr. Yandel Arechiga Dr, Rivert Sipzner Podiatry: Dr. Suri Caldwell Urology: Dr. Mushtaq Flaherty, Dr. Arlene Flaherty Vascular Surgery: Dr. Maury Rubio Vascular: Dr. Emmanuel Good Time Spent in preparation of Discharge (in minutes): 45 Diagnosis - Discharge Diagnosis (1) Peripheral vascular disease Status: Chronic (2) ESRD (end stage renal disease) on dialysis Status: Chronic (3) HIV (human immunodeficiency virus infection) Status: Chronic (4) Pyelonephritis Status: Acute Hospital Course - Lab Results Lab Results: Micro Results 07/20/17 10:30 Blood-Venous Blood Culture - Preliminary NO GROWTH AFTER 3 DAYS 07/20/17 10:30 Blood-Venous Blood Culture - Preliminary NO GROWTH AFTER 3 DAYS 07/12/17 08:00 Urine Urine Culture - Final No Growth (<1,000 CFU/ML) 07/07/17 09:50 Other: Please Indicate Gram Stain - Final 07/07/17 09:50 Other: Please Indicate Wound Culture - Final Corynebacterium Species Coagulase Neg Staphylococcus Most Recent Lab Values WBC 8.9 10^3/ul (4.5-11.0) 07/23/17 06:30 RBC 3.07 10^6/uL (3.5-6.1) L 07/23/17 06:30 Hgb 9.4 g/dL (14.0-18.0) L 07/23/17 06:30 Hct 30.1 % (42.0-52.0) L 07/23/17 06:30 MCV 98.0 fl (80.0-105.0) 07/23/17 06:30 MCH 30.6 pg (25.0-35.0) 07/23/17 06:30 MCHC 31.2 g/dl (31.0-37.0) 07/23/17 06:30 RDW 16.6 % (11.5-14.5) H 07/23/17 06:30 Plt Count 338 10^3/uL (120.0-450.0) 07/23/17 06:30 MPV 10.2 fl (7.0-11.0) 07/23/17 06:30 Gran % 46.8 % (50.0-68.0) L 07/23/17 06:30 Lymph % (Auto) 33.9 % (22.0-35.0) 07/23/17 06:30 Garfield % (Auto) 11.9 % (1.0-6.0) H 07/23/17 06:30 Eos % (Auto) 7.2 % (1.5-5.0) H 07/23/17 06:30 Baso % (Auto) 0.2 % (0.0-3.0) 07/23/17 06:30 Gran # 4.18 (1.4-6.5) 07/23/17 06:30 Lymph # 3.0 (1.2-3.4) 07/23/17 06:30 Garfield # 1.1 (0.1-0.6) H 07/23/17 06:30 Eos # 0.6 (0.0-0.7) 07/23/17 06:30 Baso # 0.02 K/mm3 (0.0-2.0) 07/23/17 06:30 PT 13.2 SECONDS (9.4-12.5) H 07/17/17 07:30 INR 1.20 (0.93-1.08) H 07/17/17 07:30 APTT 35.0 Seconds (25.1-36.5) 07/17/17 07:30 pO2 24 mm/Hg (30-55) L 07/05/17 22:10 VBG pH 7.39 (7.32-7.43) 07/05/17 22:10 VBG pCO2 51.0 (40-60) 07/05/17 22:10 VBG HCO3 30.9 mmol/l (21-28) H 07/05/17 22:10 VBG Total CO2 32.5 mmol.L (22-28) H 07/05/17 22:10 VBG O2 Sat (Calc) 49.2 % (40-65) 07/05/17 22:10 VBG Base Excess 4.7 mmol/L (0.0-2.0) H 07/05/17 22:10 VBG Potassium 4.4 mmol/L (3.6-5.2) 07/05/17 22:10 Sodium 137.0 mmol/L (132-148) 07/05/17 22:10 Chloride 102.0 mmol/L (98-107) 07/05/17 22:10 Glucose 108 mg/dl (75-110) 07/05/17 22:10 Lactate 1.7 mmol/L (0.7-2.1) 07/05/17 22:10 FiO2 21.0 % 07/05/17 22:10 Sodium 137 mmol/L (132-148) 07/23/17 06:30 Potassium 3.9 mmol/L (3.6-5.0) 07/23/17 06:30 Chloride 102 mmol/L (98-107) 07/23/17 06:30 Carbon Dioxide 27 mmol/L (21-33) 07/23/17 06:30 Anion Gap 12 (10-20) 07/23/17 06:30 BUN 27 mg/dL (7-21) H 07/23/17 06:30 Creatinine 5.1 mg/dl (0.8-1.5) H 07/23/17 06:30 Est GFR ( Amer) 14 07/23/17 06:30 Est GFR (Non-Af Amer) 11 07/23/17 06:30 POC Glucose (mg/dL) 114 mg/dL (65-110) H 07/05/17 22:54 Random Glucose 94 mg/dL (70-110) 07/23/17 06:30 Calcium 9.2 mg/dL (8.4-10.5) 07/23/17 06:30 Phosphorus 2.6 mg/dL (2.5-4.5) 07/10/17 06:45 Total Bilirubin 0.5 mg/dL (0.2-1.3) 07/23/17 06:30 AST 33 U/L (17-59) 07/23/17 06:30 ALT 17 U/L (7-56) 07/23/17 06:30 Alkaline Phosphatase 78 U/L (38-126) 07/23/17 06:30 Lactate Dehydrogenase 622 U/L (333-699) 07/05/17 22:10 Total Creatine Kinase 45 U/L (35-230) 07/05/17 22:10 Troponin I 0.06 ng/mL D 07/05/17 22:10 Total Protein 6.6 g/dL (5.8-8.3) 07/23/17 06:30 Albumin 2.9 g/dL (3.0-4.8) L 07/23/17 06:30 Globulin 3.8 gm/dL 07/23/17 06:30 Albumin/Globulin Ratio 0.8 (1.1-1.8) L 07/23/17 06:30 Lipase 74 U/L (23-300) 07/05/17 22:10 Prostate Specific Ag 0.3 ng/mL (0.00-2.5) 07/10/17 10:00 Procalcitonin 0.70 NG/ML (0.19-0.49) H 07/20/17 10:16 Venous Blood Potassium 4.4 mmol/L (3.6-5.2) 07/05/17 22:10 Urine Color Yellow (YELLOW) 07/06/17 00:45 Urine Appearance Cloudy (CLEAR) 07/06/17 00:45 Urine pH 7.0 (4.7-8.0) 07/06/17 00:45 Ur Specific [place] 1.020 (1.005-1.035) 07/06/17 00:45 Urine Protein >=300 mg/dL (<30 mg/dL) H 07/06/17 00:45 Urine Glucose (UA) Negative mg/dL (NEGATIVE) 07/06/17 00:45 Urine Ketones Negative mg/dL (NEGATIVE) 07/06/17 00:45 Urine Blood Large (NEGATIVE) H 07/06/17 00:45 Urine Nitrate Negative (NEGATIVE) 07/06/17 00:45 Urine Bilirubin Negative (NEGATIVE) 07/06/17 00:45 Urine Urobilinogen 0.2 E.U./dL (<1 E.U./dL) 07/06/17 00:45 Ur Leukocyte Esterase Large Tom/uL (NEGATIVE) H 07/06/17 00:45 Urine RBC 2 - 5 /hpf (0-2) 07/06/17 00:45 Urine WBC Tntc /hpf (0-6) 07/06/17 00:45 Ur Epithelial Cells 0 - 2 /hpf (0-5) 07/06/17 00:45 Urine Bacteria Small (NEG) 07/06/17 00:45 Hepatitis A IgM Ab Negative (NEGATIVE) 07/18/17 13:00 Hep Bs Antigen Negative (NEGATIVE) 07/18/17 13:00 Hep B Core IgM Ab Negative (NEGATIVE) 07/18/17 13:00 Hepatitis C Antibody Negative (NEGATIVE) 07/18/17 13:00 - Date & Time of H&P Date of H&P: 07/06/17 Time of H&P: 02:40 Discharge Exam - Head Exam Head Exam: ATRAUMATIC, NORMAL INSPECTION, NORMOCEPHALIC - Eye Exam Eye Exam: EOMI, PERRL - ENT Exam ENT Exam: Mucous Membranes Moist - Neck Exam Neck exam: Full Rom - Respiratory Exam Respiratory Exam: NORMAL BREATHING PATTERN, UNREMARKABLE. absent: Rales, Rhonchi, Wheezes - GI/Abdominal Exam GI & Abdominal Exam: Normal Bowel Sounds, Soft. absent: Firm, Guarding, Rigid, Tenderness - Skin Additional comments: Right LE: Open ulceration on medial aspect of right medial mallelous with hyperpigmented base. No odor or purulent drainage. Open ulceration noted on lateral aspect of right heel with fibrotic base with hyperpigmented margins showing signs of necrois. No odor, purulent drainage. Left LE: Bandages in place covering digits of left foot, c/d/i no foul odor appreciated Discharge Plan - Follow Up Plan Condition: STABLE Disposition: HOME/ ROUTINE Instructions: Pneumococcal Vaccine for Adults (DC), Wound Infection (DC), Kidney Stones (DC), Influenza Vaccine (DC), Acute Pyelonephritis (DC), Toe Amputation (DC) Additional Instructions: Follow up with Dr. Foley at [facility]. Dressing change daily Left 3rd toe soaked with betadine then DSD. Right foot betadine then DSD. Start Vancomycin 1 gram after dialysis 07/24 for 5 weeks. Discharge patient with IV access as per Dr. Adams. Continue IV Vancomycin for five weeks Follow up with vascular surgery for peripheral artery disease Follow up with urology upon discharge Follow up with PMD upon discharge Take medications as prescribed to you
--- NOTE | 2017-07-23 18:14 | CP.PCM.PN ---
Subjective - Date & Time of Evaluation Date of Evaluation: 07/23/17 Time of Evaluation: 12:15 - Subjective Subjective: Comfortable, no fevers, less pain in the left foot. Objective - Vital Signs/Intake and Output Vital Signs (last 24 hours): Temp Pulse Resp BP Pulse Ox 99.9 F H 74 20 159/69 H 94 L 07/23/17 07:30 07/23/17 07:30 07/23/17 07:30 07/23/17 07:30 07/23/17 07:30 Intake and Output: 07/23/17 07/23/17 06:59 18:59 Intake Total 660 Balance 660 - Medications Medications: Current Medications Abacavir Sulfate (Ziagen) 300 mg PO BID [facility] Last Admin: 07/23/17 09:33 Dose: 300 mg Acetaminophen (Tylenol 325mg Tab) 650 mg PO Q4H PRN PRN Reason: Fever >100.4 F Last Admin: 07/20/17 05:54 Dose: 650 mg Albuterol/Ipratropium (Duoneb 3 Mg/0.5 Mg (3 Ml) Ud) 3 ml IH Q2H PRN PRN Reason: Shortness of Breath Allopurinol (Zyloprim) 300 mg PO DAILY [facility] Last Admin: 07/23/17 09:33 Dose: 300 mg Ergocalciferol (Drisdol 50,000 Intl Units Cap) 1 cap PO Q7D [facility] Last Admin: 07/20/17 11:13 Dose: 1 cap Ferrous Sulfate (Feosol) 324 mg PO BID [facility] Last Admin: 07/23/17 09:33 Dose: 324 mg Heparin Sodium (Porcine) (Heparin) 5,000 units SC Q12 [facility] PRN Reason: Protocol Last Admin: 07/23/17 09:34 Dose: 5,000 units Home Med (Home Med) 1 unit PO DAILY [facility] Last Admin: 07/18/17 10:48 Dose: Not Given Hydralazine HCl (Apresoline) 25 mg PO Q4 PRN PRN Reason: Other Last Admin: 07/18/17 21:28 Dose: 25 mg Meropenem 500 mg/ Sodium (Chloride) 50 mls @ 100 mls/hr IVPB Q12 [facility] PRN Reason: Protocol Stop: 07/27/17 10:16 Last Admin: 07/23/17 09:35 Dose: 100 mls/hr Lamivudine (Epivir) 150 mg PO DAILY [facility] Last Admin: 07/23/17 09:33 Dose: 150 mg Losartan Potassium (Cozaar) 100 mg PO DAILY [facility] Last Admin: 07/23/17 09:33 Dose: 100 mg Meclizine HCl (Antivert) 25 mg PO Q8H PRN PRN Reason: Dizziness Metoprolol Tartrate (Lopressor) 100 mg PO BRKDIN [facility] Last Admin: 07/23/17 08:07 Dose: 100 mg Ondansetron HCl (Zofran Inj) 4 mg IVP DAILY PRN PRN Reason: nausea Oxycodone/Acetaminophen (Percocet 5/325 Mg Tab) 1 tab PO Q6H PRN PRN Reason: Pain, severe (8-10) Stop: 07/24/17 09:24 Last Admin: 07/22/17 21:01 Dose: 1 tab Pantoprazole Sodium (Protonix Ec Tab) 40 mg PO 0600 [facility] Last Admin: 07/23/17 06:16 Dose: 40 mg Sevelamer HCl (Renagel) 800 mg PO WM [facility] Last Admin: 07/23/17 08:07 Dose: 800 mg Tramadol HCl (Ultram) 50 mg PO Q8H PRN PRN Reason: Pain, moderate (4-7) Last Admin: 07/21/17 09:02 Dose: 50 mg Vitamin B Complex/Vit C/Folic Acid (Nephro-Christel) 1 tab PO DAILY [facility] Last Admin: 07/23/17 09:33 Dose: 1 tab - Labs Labs: 07/23/17 06:30 07/23/17 06:30 PT 13.2 SECONDS (9.4-12.5) H 07/17/17 07:30 INR 1.20 (0.93-1.08) H 07/17/17 07:30 APTT 35.0 Seconds (25.1-36.5) 07/17/17 07:30 - Constitutional Appears: Non-toxic, Chronically Ill - Head Exam Head Exam: NORMAL INSPECTION - Neck Exam Neck Exam: absent: Meningismus - Respiratory Exam Respiratory Exam: Decreased Breath Sounds - Cardiovascular Exam Cardiovascular Exam: +S1, +S2 - GI/Abdominal Exam GI & Abdominal Exam: Soft. absent: Tenderness - Extremities Exam Additional comments: left foot with dressings in place Assessment and Plan - Assessment and Plan (Free Text) Plan: Assessment left foot 3rd digit chronic osteomyelitis S/P amputation and debridement POD #4 - margins still showing osteomyelitis severe PAD S/P angioplasty of the left tibial artery POD #6 right sided nephrolithiasis history of severe sepsis with acute on chronic renal failure probably due to pyelonephritis with E. coli bacteremia history of C. diff. associated diarrhea Charcot foot, left history of left 2nd toe dry gangrene Chronic renal failure on hemodialysis HTN prostate CA HIV ([place] with last CD4 count here at [facility] 03/2016 349 and virus load < 1.3 log) history of osteomyelitis of left first toe S/P amputation ( 2016) gout history of left foot ulcers Plan continue MErrem and can switch Vanco to Doxycycline- should get at least 6 weeks of antibiotics with weekly ESR, CRP, CBC, CMP continue antiretroviral therapy (lamivudine, abacavir on formulary but dolutegravir should be taken by patient from his home supply)
--- NOTE | 2017-07-23 20:34 | PN ---
DATE: 07/23/2017 SUBJECTIVE: This is a 71-year-old male seen for right ankle ulcerations and he is status post 4 days distal toe amputation of the third toe on his left foot by Dr. Dunn. The patient is seen at bedside. He is awaiting discharge to a subacute rehab once his pathology is finalized. The patient denies any fever or chills. He states he is starting to get slightly depressed. I did offer a psych consult for medication, but he refused. PHYSICAL EXAMINATION: VITAL SIGNS: Noted with a temperature of 99.9. His blood pressure is 159/69, and his oxygen sat is 94. Respirations are 20. LABORATORY DATA: Laboratories show a white blood cell count of 8.9, the H and H are 9.4 and 30.1, and the platelets are 338. The patient's chemistry shows a BUN and creatinine of 27 and 5.1. He is a dialysis patient and his random glucose was 94. The patient's Microbiology shows blood cultures no growth after 3 days. The wound culture during surgery was corynebacterium species and coagulase-negative staph. The patient is status post angioplasty to the left lower extremity. He has nonpalpable pedal pulses on the right lower extremity. He has gangrenous, necrotic ulceration to the medial aspect of the rearfoot over the talonavicular joint. He also has a necrotic/fibrotic ulceration to his lateral left ankle. At this point, there are no signs of infection to these areas. The sutures remain in place on the third toe surgery; however, the suture line is becoming dry and necrotic. The rest of the toe though is viable with capillary refill. There is no pus, no fluctuance, and no signs of infection in that foot. The patient does have Multi Podus boots at bedside,but he does not wear them. I did discuss with him the importance of wearing these boots to help his heals improve. ASSESSMENT: Peripheral vascular disease and multiple nonstageable ulcers to the right lower extremity, and he is status post angioplasty and amputation on the left lower extremity. PLAN OF TREATMENT: Continue with local care. As soon as pathology is received, the patient will be referred to a subacute rehab where he is going to need physical therapy since he has not been out of bed since he has been here at [facility]. The patient will be seen in followup. Suri Caldwell DPM
[2017-07-24] MEDS ORDERED: Vancomycin 1gm in NS 250ml 1 GM/250 ML BAG IVPB SCH (12:00)
--- NOTE | 2017-07-25 08:13 | OP ---
PROCEDURE DATE: 07/19/[address] Mirta Driscoll on be half of Dr. Jerrod Dunn. PREOPERATIVE DIAGNOSIS: Chronic left 3rd digit wound with osteomyelitis. POSTOPERATIVE DIAGNOSIS: Chronic left 3rd digit wound with osteomyelitis. NAME OF THE PROCEDURE: Partial left third digit amputation with removal of All nonviable soft tissue and bone. SURGEON: Jerrod Dunn DPM POT ANNEALER: Mirta Driscoll DPM, PGY-1 Anesthesiologist: Dr. Phil Lees MD TYPE OF ANESTHESIA: IV sedation with local. INDICATION: The patient is a 72-year-old male with the above diagnosis. The patient has exhausted all conservative treatment at this time and now requires surgical intervention. The patient signed a consent after careful explanation of risks, benefits, complications, and alternatives to surgical procedure. No guarantees were given nor implied. PREPARATION: The patient was brought into the operating room and was placed on the operating room table in the supine position. Time-out was performed for identification of the correct patient and the procedure. After induction of IV sedation, the patient received total of 17 mL of 1:1 mixture of 2% lidocaine plain and 0.5% Marcaine plain in a local block fashion. Once the local anesthesia was achieved, the left foot was then draped and prepped in a normal sterile manner. No tourniquet was used during the procedure. DESCRIPTION OF PROCEDURE: Attention was then directed to the left distal third digit. After the careful inspection and incision planning, using a #15 blade an incision was made down to the level of the bone at the level of PIPJ. Incision was then extended plantarly and circumferentially around the distal third digit. The digit was disarticulated at the level of PIPJ and was passed off to pathology. Using small scissor and pickup superficial fibrosis and nonviable tissue were removed from the wound bed. Wound bed was then copiously irrigated with sterile saline. 3-0 Vicryl and 3-0 nylon was used reapproximate the skin edges using simple sutures technique. Surgical site was dressed with Adaptic, 4 x 4 gauze, and Kerlix. POSTOPERATIVE CONDITION: The patient tolerated the anesthesia and the procedure well and was escorted to the recovery room with vital signs stable and neurovascular status intact with the left lower extremity. All the postoperative instructions were explained before the procedure. The patient will be seen and followed by Dr. Caldwell as an outpatient in [facility]. Mirta Driscoll DPM [facility]
== END 2017-07-23 20:45 | DRG 969 ==
LOC: ED 21:32 → ERH 07-06 03:28 → 5RNO 07-06 04:22 → 2RSO 07-17 17:43 → 5RNO 07-18 13:25
PROVIDERS: ADMIT Internal Medicine; ATTEND Internal Medicine
PROC: 5A1D70Z Performance of Urinary Filtration, Intermittent, Less than 6 Hours Per Day (ICD-10-PCS; 2017-07-07)
PROC: 047S34Z Dilation of Left Posterior Tibial Artery with Drug-eluting Intraluminal Device, Percutaneous Approach (ICD-10-PCS; principal; 2017-07-17)
PROC: B44GZZ3 Ultrasonography of Left Lower Extremity Arteries, Intravascular (ICD-10-PCS; 2017-07-17)
PROC: 0Y6U0Z1 Detachment at Left 3rd Toe, High, Open Approach (ICD-10-PCS; 2017-07-19)
DX: A41.9 Sepsis, unspecified organism (principal); B20 Human immunodeficiency virus [HIV] disease; N17.9 Acute kidney failure, unspecified; L89.619 Pressure ulcer of right heel, unspecified stage; L89.629 Pressure ulcer of left heel, unspecified stage; N18.6 End stage renal disease; N13.6 Pyonephrosis; M86.672 Other chronic osteomyelitis, left ankle and foot; L03.119 Cellulitis of unspecified part of limb; L97.319 Non-pressure chronic ulcer of right ankle with unspecified severity; L97.516 Non-pressure chronic ulcer of other part of right foot with bone involvement without evidence of necrosis; I12.0 Hypertensive chronic kidney disease with stage 5 chronic kidney disease or end stage renal disease; L97.526 Non-pressure chronic ulcer of other part of left foot with bone involvement without evidence of necrosis; I70.245 Atherosclerosis of native arteries of left leg with ulceration of other part of foot; M10.9 Gout, unspecified; M14.672 Charcot's joint, left ankle and foot; D63.1 Anemia in chronic kidney disease; J44.9 Chronic obstructive pulmonary disease, unspecified; R42 Dizziness and giddiness; I25.10 Atherosclerotic heart disease of native coronary artery without angina pectoris; K59.00 Constipation, unspecified; Z99.2 Dependence on renal dialysis; Z85.46 Personal history of malignant neoplasm of prostate; Z90.79 Acquired absence of other genital organ(s); Z89.412 Acquired absence of left great toe

== ENCOUNTER 2017-08-07 22:13 | Inpatient (IN) | payer MEDICARE ==
[2017-08-08 00:08] LABS: BASO # 0.02 K/mm3 (0.0-2.0); BASO % 0.2 % (0.0-3.0); EOS # 0.2 (0.0-0.7); GRAN # 4.41 (1.4-6.5); GRAN % 45.6 % (50.0-68.0); HEMATOCRIT 32.3 % (42.0-52.0); LYMPH # 3.3 (1.2-3.4); LYMPH % 34.1 % (22.0-35.0); MEAN CELL VOLUME 95.3 fl (80.0-105.0); MEAN CORPUSCULAR HEMOGLOBIN 30.7 pg (25.0-35.0); MEAN CORPUSCULAR HGB CONC 32.2 g/dl (31.0-37.0); MEAN PLATELET VOLUME 11.4 fl (7.0-11.0); MONO # 1.8 (0.1-0.6); MONO % 18.1 % (1.0-6.0); RED CELL DISTRIBUTION WIDTH 17.2 % (11.5-14.5); WHITE BLOOD COUNT 9.7 10^3/ul (4.5-11.0)
--- NOTE | 2017-08-08 00:08 | ED PDOC ---
Arrival/HPI - General Chief Complaint: Lower Extremity Problem/Injury Time Seen by Provider: 08/07/17 22:37 Historian: Family - History of Present Illness Narrative History of Present Illness (Text): 08/08/17 00:07 A 72 year old male, whose past medical history includes HIV, hypertension, prostate cancer, chronic kidney disease and charcots gout, was brought in by [facility] to the emergency department for AMS. Patient's family reports patient wasn't answering questions appropriately. Limited HPI and ROS. Symptom Onset: Sudden Symptom Course: Unchanged Activities at Onset: Rest Context: Other (prison) Past Medical History - Provider Review Nursing Documentation Reviewed: Yes - Infectious Disease Hx of Infectious Diseases: None - Tetanus Immunization Tetanus Immunization: Up to Date - Cardiac Hx Cardiac Disorders: Yes Hx Hypertension: Yes - Pulmonary Hx Respiratory Disorders: No - Neurological Hx Neurological Disorder: No - HEENT Hx HEENT Disorder: No - Renal Hx Renal Failure: Yes - Endocrine/Metabolic Hx Diabetes Mellitus Type 1: No Hx Diabetes Mellitus Type 2: No - Hematological/Oncological Hx Blood Transfusions: No - Integumentary Hx Dermatological Disorder: Yes (CELLULITIS OF L ANKLE 16.AMPUTATED 1ST TOE LEFT FOOT.,I/D RT HAND ABCES) Other/Comment: Ulcer of second toe BL - Musculoskeletal/Rheumatological Hx Musculoskeletal Disorders: Yes - Gastrointestinal Hx Gastrointestinal Disorders: No - Genitourinary/Gynecological Hx Genitourinary Disorders: Yes Hx Prostate Cancer: Yes - Psychiatric Hx Psychophysiologic Disorder: No Hx Substance Use: No - Surgical History Hx Amputation: Yes (Left first toe) Other/Comment: prostatectomy, incision and drainage of right hand abscess - Anesthesia Hx Anesthesia Reactions: No Hx Malignant Hyperthermia: No Family/Social History - Physician Review Nursing Documentation Reviewed: Yes Family/Social History: No Known Family HX Smoking Status: Never Smoked Hx Alcohol Use: Yes Hx Substance Use: No Allergies/Home Meds Allergies/Adverse Reactions: Allergies banana Allergy (Verified 08/08/17 04:43) SWELLING shrimp Allergy (Verified 08/08/17 04:43) SWELLING Home Medications: Home Meds Medication Instructions Recorded Confirmed Enoxaparin [Lovenox] 40 mg SQ DAILY 05/23/17 08/07/17 Ferrous Sulfate [Feosol] 1 tab PO BID 05/23/17 08/07/17 Meclizine [Antivert] 25 mg PO Q8H PRN 05/23/17 08/07/17 Vitamin B Complex/Vit C/Folic 1 tab PO DAILY 05/23/17 08/07/17 [Nephro-Christel] hydrALAZINE [hydralazine 25 mg PO Q4 05/23/17 07/05/17 Hydrochloride] Allopurinol [Zyloprim] 100 mg PO DAILY 08/07/17 08/07/17 Dolutegravir Sodium [Tivicay] 50 mg PO DAILY 08/07/17 08/07/17 Doxycycline Hyclate [Doryx] 100 mg PO BID 08/07/17 08/07/17 Heparin [Heparin Sodium] 5,000 unit IJ Q12 08/07/17 08/07/17 Losartan [Cozaar] 100 mg PO DAILY 08/07/17 08/07/17 Metoprolol Tartrate [Lopressor] 100 mg PO Q12 08/07/17 08/07/17 lamiVUDine [Epivir] 150 mg PO DAILY 08/07/17 08/07/17 Review of Systems - Review of Systems Systems not reviewed;Unavailable: Altered Mental Status Physical Exam - Physical Exam Physical Exam Limitations: Altered Mental Status Vital Signs Reviewed: Yes Vital Signs Temp Pulse Resp BP Pulse Ox 08/08/17 02:00 83 16 156/64 H 96 08/08/17 01:00 78 18 107/87 95 08/07/17 22:33 98.8 F 81 18 140/76 95 Temperature: Afebrile Blood Pressure: Normal Pulse: Regular Respiratory Rate: Normal Appearance: Positive for: Well-Appearing, Comfortable Pain Distress: None Mental Status: Positive for: Confused - Systems Exam Head: Present: Atraumatic, Normocephalic Pupils: Present: PERRL Extroacular Muscles: Present: EOMI Conjunctiva: Present: Normal Mouth: Present: Moist Mucous Membranes Neck: Present: Normal Range of Motion Respiratory/Chest: Present: Clear to Auscultation, Good Air Exchange. No: Respiratory Distress, Accessory Muscle Use Cardiovascular: Present: Regular Rate and Rhythm, Normal S1, S2. No: Murmurs Abdomen: Present: Normal Bowel Sounds. No: Tenderness, Distention, Peritoneal Signs Back: Present: Normal Inspection Upper Extremity: Present: Normal Inspection. No: Cyanosis, Edema Lower Extremity: Present: Swelling (Right foot ), Other (swelling rt foot , healed ambutaion left foot) Neurological: Present: GCS=15, CN II-XII Intact, Speech Normal Skin: Present: Warm, Dry, Normal Color. No: Rashes Psychiatric: Present: Alert, Oriented x 3, Normal Insight, Normal Concentration Medical Decision Making ED Course and Treatment: 08/08/17 00:05 Impression: A 72 year old male with AMS. Plan: -- EKG -- chest xray -- CT head -- labs -- Urinalysis -- Reassess and disposition Prior Visits: Notes and results from previous visits were reviewed. Patient was last seen in the emergency department on 07/05/17 for evaluation of abdominal pain. Patient was admitted for abdominal pain, pyelonephritis. Progress Notes: CT Head Without Intravenous Contrast CLINICAL HISTORY: 72 years old, male; Signs and symptoms; Altered mental status/memory loss; Additional info: AMS TECHNIQUE: Axial computed tomography images of the head/brain without intravenous contrast. All CT scans at this facility use one or more dose reduction techniques, viz.: automated exposure control; ma/kV adjustment per patient size (including targeted exams where dose is matched to indication; i.e. head); or iterative reconstruction technique. COMPARISON: CT - HEAD W/O CONTRAST 2017-05-09 08:35 FINDINGS: Brain: [id number] atrophy. No intracranial hemorrhage. No mass. Few scattered foci of decreased attenuation within periventricular/subcortical white matter. No definite edema. Ventricles: No hydrocephalus. Bones/joints: No acute fracture. Soft tissues: Unremarkable. Vasculature: Minimal atherosclerotic disease of intracranial arteries. Sinuses: Scattered minimal mucosal thickening. Mastoid air cells: No mastoid effusion. Orbits: Unremarkable as visualized. IMPRESSION: 1. Nonspecific white matter changes. Acute infarction may be CT occult within first 24 hours. If a focal deficit persists, consider followup CT or MRI for further evaluation. 2. Incidental/non-acute findings are described above. Thank you for allowing us to participate in the care of your patient. Dictated and Authenticated by: Kevan Mackey MD 08/08/2017 1:00 AM Eastern Time ([place] & [place]) Chest xray: No acute findings, as read by me. EKG: Ordered, reviewed, and independently interpreted the EKG. Rate : 78 BPM Rhythm : NSR Interpretation : Nonspecific ST segment changes - Lab Interpretations Lab Results: 08/07/17 23:40 08/07/17 23:40 Lab Results 08/08/17 00:10: Ammonia < 9 L 08/07/17 23:40: Acetaminophen < 10.0 L 08/07/17 23:40: Alcohol, Quantitative < 10 08/07/17 23:40: Sodium 139, Potassium 3.6, Chloride 99, Carbon Dioxide 28, Anion Gap 16, BUN 36 H, Creatinine 3.9 H, Est GFR ( Amer) 18, Est GFR ( Non-Af Amer) 15, Random Glucose 96, Calcium 9.7, Phosphorus 4.7 H, Magnesium 2.0 , Total Bilirubin 0.6, AST 41, ALT 25, Alkaline Phosphatase 82, Lactate Dehydrogenase 574, Total Creatine Kinase 86, Troponin I 0.04 D, Total Protein 8.1, Albumin 3.5, Globulin 4.6, Albumin/Globulin Ratio 0.8 L 08/07/17 23:40: PT 15.2 H, INR 1.39 H, APTT 40.8 H 08/07/17 23:40: WBC 9.7, RBC 3.39 L, Hgb 10.4 L, Hct 32.3 L, MCV 95.3, MCH 30.7 , MCHC 32.2, RDW 17.2 H, Plt Count 307, MPV 11.4 H, Gran % 45.6 L, Lymph % (Auto ) 34.1, [place] % (Auto) 18.1 H, Eos % (Auto) 2.0, Baso % (Auto) 0.2, Gran # 4.41, Lymph # 3.3, Barnwell # 1.8 H, Eos # 0.2, Baso # 0.02 I have reviewed the lab results: Yes - RAD Interpretation Radiology Orders: 08/07/17 22:54 HEAD W/O CONTRAST [CT] Stat 08/07/17 22:55 CHEST ONE VIEW [RAD] Stat - EKG Interpretation Interpreted by ED Physician: Yes Type: 12 lead EKG - Medication Orders Current Medication Orders: Acetaminophen (Tylenol 325mg Tab) 650 mg PO Q4H PRN PRN Reason: Fever >100.5 F Last Admin: 08/08/17 04:11 Dose: 650 mg MAR Pain/Vitals Document 08/08/17 04:11 KTB (Rec: 08/08/17 04:11 KTB [id number]) Pain Reassessment Is This A Pain ReAssessment? No Presence of Pain Presence of Pain Yes Pain Scale Used Pain Scale Used Numeric Location Left, Right or Bilateral Left Pain Location Body Site Foot Intensity 9 Scale Used Numeric - Scribe Statement The provider has reviewed the documentation as recorded by the Malindaibera Cavazos Provider Scribe Attestation: All medical record entries made by the Scribe were at my direction and personally dictated by me. I have reviewed the chart and agree that the record accurately reflects my personal performance of the history, physical exam, medical decision making, and the department course for this patient. I have also personally directed, reviewed, and agree with the discharge instructions and disposition. Disposition/Present on Arrival - Present on Arrival Any Indicators Present on Arrival: No History of DVT/PE: No History of Uncontrolled Diabetes: No Urinary Catheter: No History of Decub. Ulcer: No History Surgical Site Infection Following: None - Disposition Have Diagnosis and Disposition been Completed?: Yes Diagnosis: Altered mental status Disposition: HOSPITALIZED Disposition Time: 01:00 Condition: GOOD
[2017-08-08 00:18] LABS: TROPONIN I 0.04 ng/mL
[2017-08-08 00:19] LABS: INR 1.39 (0.93-1.08); PARTIAL THROMBOPLASTIN TIME 40.8 Seconds (25.1-36.5)
[2017-08-08 00:21] LABS: ALB/GLOB RATIO 0.8 (1.1-1.8); BILIRUBIN,TOTAL 0.6 mg/dL (0.2-1.3); CALCIUM 9.7 mg/dL (8.4-10.5); PHOSPHOROUS 4.7 mg/dL (2.5-4.5); POTASSIUM 3.6 mmol/L (3.6-5.0); TOTAL PROTEIN 8.1 g/dL (5.8-8.3)
--- NOTE | 2017-08-08 01:00 | CT ---
EXAM: CT Head Without Intravenous Contrast CLINICAL HISTORY: 72 years old, male; Signs and symptoms; Altered mental status/memory loss; Additional info: AMS TECHNIQUE: Axial computed tomography images of the head/brain without intravenous contrast. All CT scans at this facility use one or more dose reduction techniques, viz.: automated exposure control; ma/kV adjustment per patient size (including targeted exams where dose is matched to indication; i.e. head); or iterative reconstruction technique. COMPARISON: CT - HEAD W/O CONTRAST 2017-05-09 08:35 FINDINGS: Brain: [id number] atrophy. No intracranial hemorrhage. No mass. Few scattered foci of decreased attenuation within periventricular/subcortical white matter. No definite edema. Ventricles: No hydrocephalus. Bones/joints: No acute fracture. Soft tissues: Unremarkable. Vasculature: Minimal atherosclerotic disease of intracranial arteries. Sinuses: Scattered minimal mucosal thickening. Mastoid air cells: No mastoid effusion. Orbits: Unremarkable as visualized. IMPRESSION: 1. Nonspecific white matter changes. Acute infarction may be CT occult within first 24 hours. If a focal deficit persists, consider followup CT or MRI for further evaluation. 2. Incidental/non-acute findings are described above.
[2017-08-08 05:11] VITALS: BMI 23.0
--- NOTE | 2017-08-08 08:40 | RAD ---
PROCEDURE: CHEST RADIOGRAPH, 1 VIEW HISTORY: Pain, unspecified COMPARISON: 07/20/2017 FINDINGS: LUNGS: Clear. PLEURA: No pneumothorax or pleural fluid seen. CARDIOVASCULAR: No radiographic findings to suggest acute or significant cardiovascular disease. Venous access catheter in stable, satisfactory position. OSSEOUS STRUCTURES: No significant abnormalities. VISUALIZED UPPER ABDOMEN: Normal. OTHER FINDINGS: None. IMPRESSION: No active disease. No acute/significant interval changes.
--- NOTE | 2017-08-08 10:20 | CARD ---
APPROVED REPORT EKG Measurement Heart [id number] <Conclusion> Normal sinus rhythm Possible Left atrial enlargement Left ventricular hypertrophy Nonspecific T wave abnormality Prolonged QT Abnormal ECG
--- NOTE | 2017-08-08 11:34 | CP.PCM.HP ---
History of Present Illness - History of Present Illness History of Present Illness: Femi Ramsay PGY1 IM H&P Note for Dr. Adams/Dr. Sesay CC: AMS and confusion Mr. Sagastume is a 72 year old male with past medical history of ESRD on HD ( Sunday//Sunday), osteomyelitis s/p amputation of L toes 1-3, severe PAD s/p angioplasty of L tibial artery, HIV (last CD4 count here at [facility] 04/2017 420), Prostate cancer s/p prostatectomy, HTN, HLD, GERD, gout who presented to the ED from [facility] with AMS and confusion. Per patient, he had his dialysis treatment yesterday and requested a pain medication for his R foot prior to receiving HD. Following HD, he was not feeling well and was tired, but the staff considered him altered. Per nurse, the patient was also febrile and had some chills before coming in. The patient denies fevers/chills, n/v/d, abdominal pain, chest pain, sob, cough, urinary or bowel habit changes, numbness and tingling, and weakness. He only complains of R foot pain. 12-pt ROS was reviewed and is otherwise unremarkable. Upon chart review, the patient was recently discharged on 07/23/17 and was treated for sepsis likely 2/2 clinical osteomyelitis of L 3rd toe and had it amputated. Given pt's hx of prostate CA, the patient was also worked up for UTI and pyelonephritis due to L hydronephrosis. In ED, the patient was able to provide limited ROS and HPI due to his condition. PMH: as above PSH: prostatcetomy, amputation of toes digits 1 (Aug 2015), 2 (Mar 2016, 2/2 dry gangrene) and 3 (Jul 2017) of L foot, LUE AV fistula (May 2017) Allergies: shrimp and banana Social: denies alcohol, tobacco, or drug use Family Hx: unremarkable Medications: [facility] could not be reached to release list of meds ([phone]) due to no one answering from medical records office PMD: Dr. Adams Present on Admission - Present on Admission Any Indicators Present on Admission: No Review of Systems - Review of Systems All systems: reviewed and no additional remarkable complaints except (as per HPI ) Past Patient History - Infectious Disease Hx of Infectious Diseases: None - Tetanus Immunizations Tetanus Immunization: Up to Date - Past Medical History & Family History Past Medical History?: Yes Past Family History: Reviewed and not pertinent - Past Social History Smoking Status: Never Smoked Alcohol: None Drugs: Denies Home Situation {Lives}: Senior Care - CARDIAC Hx Cardiac Disorders: Yes Hx Hypercholesterolemia: Yes Hx Hypertension: Yes Hx Peripheral Vascular Disease: Yes (s/p angioplasty) - PULMONARY Hx Chronic Obstructive Pulmonary Disease (COPD): Yes - NEUROLOGICAL Hx Vertigo: Yes - HEENT Hx HEENT Problems: No - RENAL Hx Chronic Kidney Disease: Yes Hx Dialysis: Yes Type of Dialysis Access: HD Date of Last Dialysis Treatment: 08/07/17 Hx Renal Failure: Yes - ENDOCRINE/METABOLIC Hx Diabetes Mellitus Type 1: No Hx Diabetes Mellitus Type 2: No - HEMATOLOGICAL/ONCOLOGICAL Hx Anemia: Yes Hx Blood Transfusions: No Hx Cancer: Yes (prostate) Hx Human Immunodeficiency Virus (HIV): Yes - INTEGUMENTARY Hx Dermatological Problems: Yes Hx Cellulitis: Yes Other/Comment: dry gangrene and osteomyelitis L foot - MUSCULOSKELETAL/RHEUMATOLOGICAL Hx Musculoskeletal Disorders: Yes Hx Gout: Yes - GASTROINTESTINAL Hx Clostridium Difficile: Yes Hx Colitis: Yes Hx Gastroesophageal Reflux: Yes - GENITOURINARY/GYNECOLOGICAL Hx Genitourinary Disorders: Yes Hx Prostate Cancer: Yes - PSYCHIATRIC Hx Psychophysiologic Disorder: No Hx Substance Use: No - SURGICAL HISTORY Hx Amputation: Yes (L toes 1-3) Hx Angioplasty: Yes (L tibial artery ) Other/Comment: prostatectomy, incision and drainage of right hand abscess - ANESTHESIA Hx Anesthesia Reactions: No Hx Malignant Hyperthermia: No Meds Allergies/Adverse Reactions: Allergies Allergy/AdvReac Type Severity Reaction Status Date / Time banana Allergy SWELLING Verified 08/08/17 04:43 shrimp Allergy SWELLING Verified 08/08/17 04:43 Physical Exam - Constitutional Appears: Well, Non-toxic, No Acute Distress, Unkempt - Head Exam Head Exam: ATRAUMATIC, NORMOCEPHALIC - Eye Exam Eye Exam: EOMI, Normal appearance, PERRL - ENT Exam ENT Exam: Mucous Membranes Moist, Normal Exam - Neck Exam Neck exam: Positive for: Normal Inspection - Respiratory Exam Respiratory Exam: Clear to Auscultation Bilateral, NORMAL BREATHING PATTERN. absent: Rales, Rhonchi, Wheezes - Cardiovascular Exam Cardiovascular Exam: RRR, +S1, +S2. absent: JVD - GI/Abdominal Exam GI & Abdominal Exam: Normal Bowel Sounds, Soft. absent: Distended, Tenderness - Extremities Exam Extremities exam: Negative for: calf tenderness Additional comments: L toes 1-3 s/p amputation mild erythema noted at stump of L toes R ankle wrapped poor pulses noted b/l popliteal and pedal chronic poor vascular skin changes - Back Exam Back exam: NORMAL INSPECTION - Neurological Exam Neurological exam: Alert, Oriented x3 - Psychiatric Exam Psychiatric exam: Normal Affect, Normal Mood - Skin Skin Exam: Normal Color, Warm Additional comments: feet skin changes noted as above Results - Vital Signs Recent Vital Signs: Last Vital Signs Temp 98.8 F 08/08/17 06:00 Pulse 79 08/08/17 06:00 Resp 18 08/08/17 06:00 BP 144/76 08/08/17 06:00 Pulse Ox 96 08/08/17 06:00 - Labs Result Diagrams: 08/07/17 23:40 08/07/17 23:40 Assessment & Plan - Assessment and Plan (Free Text) Assessment: 72 year old male with past medical history of ESRD on HD (Sunday// Sunday), osteomyelitis s/p amputation of L toes 1-3, severe PAD s/p angioplasty of L tibial artery, HIV (last CD4 count here at [facility] 04/2017 420), Prostate cancer s/p prostatectomy, HTN, HLD, GERD and gout who presented to the ED from [facility] with AMS and confusion. Patient is now alert and responsive, so transient AMS was likely delirium 2/2 post-dialysis electrolyte/ homeostatic changes and polypharmacy. CT Head was negative for any hemorrhage or masses. The patient remains afebrile with no leukocytosis, however blood and urine cultures are sent to rule out infectious causes and MRI will be done to r/ o osteo of L foot. Uremia is a possible but unlikely cause given hx ESRD, however, pt receives HD regularly. Patient also has R foot ulcer, which will be managed by podiatry. HD will be continued and renal is consulted. Pt's other medical issues will be managed accordingly. Plan: 1. AMS, now resolved - CT Head positive for nonspecific white matter changes, negative for hemorrhage or masses - EKG was reviewed and is unremarkable - CXR was reviewed and is significant for LVH, but in NSR - UA and UDS ordered - Blood cultures ordered - Neurochecks QShift - VS checks - Pt is afebrile, with no leukocytosis - low ammonia level - referral - PT/OT eval 2. Hx osteomyelitis of L foot s/p amputation - r/o current infection - MRI ordered for b/l feet - CRP and ESR ordered - Tylenol PRN fevers - Morphine PRN pain - Zofran PRN - podiatry consulted, recs appreciated - ID consulted, recs appreciated 3. ESRD on HD - HD schedule e//Sat - pt to go to HD tomorrow - cont vit D, Fergon, Renagel, Nephro-Christel - Renal consulted, recs appreciated 4. severe PAD s/p angioplasty - cont Lovenox 5. HIV - continue home Ziagen, Lamivudine, Tivicay 6. Prostate CA - monitor urinary output 7. Hx HTN - continue Norvasc, Losartan, Lopressor - Hydralazine PRN - will monitor VS 8. Hx HLD - lipid panel 9. Hx COPD - no wheezing noted on exam - Duoneb PRN 10. GERD - PTX 11. Gout - cont allopurinol - avoid triggers 12. Hx vertigo - Meclizine PRN 13. DVT/GI PPX - Lovenox/PTX Patient was seen, examined and discussed with attending, Dr. Angie Ramsay PGY1 Pager # [phone] - Date & Time Date: 08/08/17 Time: 13:00
[2017-08-08] MEDS ORDERED: Morphine 2 mg/ml ISec IVP PRN (11:41)
[2017-08-08] MEDS ORDERED: Albuterol-Ipratrop 3 mg / 0.5 (3 ml) UD IH PRN (13:04)
[2017-08-08] MEDS ORDERED: Vancomycin 500 mg Inj IVPB ONE (13:15)
[2017-08-08] MEDS ORDERED: Ergocalciferol 50,000 Intl Units Cap PO SCH (13:15)
[2017-08-08] MEDS: Multivitamin Vitamin B Complex (Nephro-Vite) Tab PO SCH (14:06)
[2017-08-08] MEDS: Enoxaparin 40 mg Syringe SC SCH (14:45)
[2017-08-08] MEDS ORDERED: Vancomycin 1gm in NS 250ml 1 GM/250 ML BAG IVPB SCH (15:00)
--- NOTE | 2017-08-08 15:34 | CP.PCM.CON ---
History of Present Illness - History of Present Illness History of Present Illness: renal note: pt seen and examined plan for HD in AM continue with BP meds Past Patient History - Infectious Disease Hx of Infectious Diseases: None - Tetanus Immunizations Tetanus Immunization: Up to Date - Past Medical History & Family History Past Medical History?: Yes Past Family History: Reviewed and not pertinent - Past Social History Smoking Status: Never Smoked Alcohol: None Drugs: Denies Home Situation {Lives}: Intermediate - CARDIAC Hx Cardiac Disorders: Yes Hx Hypercholesterolemia: Yes Hx Hypertension: Yes Hx Peripheral Vascular Disease: Yes (s/p angioplasty) - PULMONARY Hx Chronic Obstructive Pulmonary Disease (COPD): Yes - NEUROLOGICAL Hx Vertigo: Yes - HEENT Hx HEENT Problems: No - RENAL Hx Chronic Kidney Disease: Yes Hx Dialysis: Yes Type of Dialysis Access: HD Date of Last Dialysis Treatment: 08/07/17 Hx Renal Failure: Yes - ENDOCRINE/METABOLIC Hx Diabetes Mellitus Type 1: No Hx Diabetes Mellitus Type 2: No - HEMATOLOGICAL/ONCOLOGICAL Hx Anemia: Yes Hx Blood Transfusions: No Hx Cancer: Yes (prostate) Hx Human Immunodeficiency Virus (HIV): Yes - INTEGUMENTARY Hx Dermatological Problems: Yes Hx Cellulitis: Yes Other/Comment: dry gangrene and osteomyelitis L foot - MUSCULOSKELETAL/RHEUMATOLOGICAL Hx Musculoskeletal Disorders: Yes Hx Gout: Yes - GASTROINTESTINAL Hx Clostridium Difficile: Yes Hx Colitis: Yes Hx Gastroesophageal Reflux: Yes - GENITOURINARY/GYNECOLOGICAL Hx Genitourinary Disorders: Yes Hx Prostate Cancer: Yes - PSYCHIATRIC Hx Psychophysiologic Disorder: No Hx Substance Use: No - SURGICAL HISTORY Hx Amputation: Yes (L toes 1-3) Hx Angioplasty: Yes (L tibial artery ) Other/Comment: prostatectomy, incision and drainage of right hand abscess - ANESTHESIA Hx Anesthesia Reactions: No Hx Malignant Hyperthermia: No Meds Allergies/Adverse Reactions: Allergies Allergy/AdvReac Type Severity Reaction Status Date / Time banana Allergy SWELLING Verified 08/08/17 04:43 shrimp Allergy SWELLING Verified 08/08/17 04:43 - Medications Medications: Current Medications Abacavir Sulfate (Ziagen) 300 mg PO BID DWAIN Acetaminophen (Tylenol 325mg Tab) 650 mg PO Q4H PRN PRN Reason: Fever >100.4 F Albuterol/Ipratropium (Duoneb 3 Mg/0.5 Mg (3 Ml) Ud) 3 ml IH Q2H PRN PRN Reason: Shortness of Breath Allopurinol (Zyloprim) 300 mg PO DAILY [facility] Last Admin: 08/08/17 14:06 Dose: 300 mg Amlodipine Besylate (Norvasc) 10 mg PO DAILY [facility] Last Admin: 08/08/17 14:07 Dose: 10 mg Enoxaparin Sodium (Lovenox) 40 mg SC DAILY [facility] PRN Reason: Protocol Ergocalciferol (Drisdol 50,000 Intl Units Cap) 1 cap PO Q7D [facility] Last Admin: 08/08/17 14:06 Dose: 1 cap Ferrous Gluconate (Fergon) 324 mg PO TID [facility] Last Admin: 08/08/17 14:06 Dose: 324 mg Hydralazine HCl (Apresoline) 25 mg PO Q4 PRN PRN Reason: Systolic Blood Pressure > 180 Vancomycin HCl (Vancomycin 1gm) 1 gm in 250 mls @ 167 mls/hr IVPB POSTDI [facility] Stop: 08/08/17 16:30 Last Admin: 08/08/17 14:50 Dose: 167 mls/hr Lamivudine (Epivir) 150 mg PO DAILY [facility] Losartan Potassium (Cozaar) 100 mg PO DAILY [facility] Meclizine HCl (Antivert) 25 mg PO Q8H PRN PRN Reason: Dizziness Metoprolol Tartrate (Lopressor) 100 mg PO Q12 [facility] Morphine Sulfate (Morphine) 2 mg IVP Q4H PRN PRN Reason: Pain, moderate (4-7) Last Admin: 08/08/17 12:15 Dose: 2 mg Dolutegravir Sodium [Tivicay] 50 Mg ( Home Med) 50 mg PO DAILY [facility] Ondansetron HCl (Zofran Inj) 4 mg IVP Q4H PRN PRN Reason: Nausea/Vomiting Pantoprazole Sodium (Protonix Ec Tab) 40 mg PO 0600 [facility] Sevelamer HCl (Renagel) 1,600 mg PO TID [facility] Last Admin: 08/08/17 14:06 Dose: 1,600 mg Vitamin B Complex/Vit C/Folic Acid (Nephro-Christel) 1 tab PO DAILY [facility] Last Admin: 08/08/17 14:06 Dose: 1 tab Results - Vital Signs Recent Vital Signs: Last Vital Signs Temp 98.8 F 08/08/17 06:00 Pulse 79 08/08/17 06:00 Resp 18 08/08/17 06:00 BP 144/76 08/08/17 14:07 Pulse Ox 96 08/08/17 06:00 - Labs Result Diagrams: 08/07/17 23:40 08/07/17 23:40 Labs: Laboratory Results - last 24 hr 08/08/17 12:30 ESR 72 H
--- NOTE | 2017-08-08 16:30 | CP.PCM.CON ---
History of Present Illness - History of Present Illness History of Present Illness: Podiatry consult note- Dr. Caldwell 72 y.o male with PMH of PAD, HIV, prostate cancer, HTN, HLD, GERD, gout, ESRD on HD, OM s/p amputation left 1-3 digits seen at bedside for 4 weeks s/p partial 3rd digit amputation and multiple right lower extremity eschar ulcerations. Patient reports that he has not seen a manager community development in a few weeks. He has been cleaning his wound at home and dressing surgical site with gauze. Patient reports severe pain to the right LE at the location of the eschar, no pain to the left LE. Patient denies n/v/sob/cp/chills/f. Past Patient History - Infectious Disease Hx of Infectious Diseases: None - Tetanus Immunizations Tetanus Immunization: Up to Date - Past Medical History & Family History Past Medical History?: Yes Past Family History: Reviewed and not pertinent - Past Social History Smoking Status: Never Smoked Alcohol: None Drugs: Denies Home Situation {Lives}: [facility] - CARDIAC Hx Cardiac Disorders: Yes Hx Hypercholesterolemia: Yes Hx Hypertension: Yes Hx Peripheral Vascular Disease: Yes (s/p angioplasty) - PULMONARY Hx Chronic Obstructive Pulmonary Disease (COPD): Yes - NEUROLOGICAL Hx Vertigo: Yes - HEENT Hx HEENT Problems: No - RENAL Hx Chronic Kidney Disease: Yes Hx Dialysis: Yes Type of Dialysis Access: HD Date of Last Dialysis Treatment: 08/07/17 Hx Renal Failure: Yes - ENDOCRINE/METABOLIC Hx Diabetes Mellitus Type 1: No Hx Diabetes Mellitus Type 2: No - HEMATOLOGICAL/ONCOLOGICAL Hx Anemia: Yes Hx Blood Transfusions: No Hx Cancer: Yes (prostate) Hx Human Immunodeficiency Virus (HIV): Yes - INTEGUMENTARY Hx Dermatological Problems: Yes Hx Cellulitis: Yes Other/Comment: dry gangrene and osteomyelitis L foot - MUSCULOSKELETAL/RHEUMATOLOGICAL Hx Musculoskeletal Disorders: Yes Hx Gout: Yes - GASTROINTESTINAL Hx Clostridium Difficile: Yes Hx Colitis: Yes Hx Gastroesophageal Reflux: Yes - GENITOURINARY/GYNECOLOGICAL Hx Genitourinary Disorders: Yes Hx Prostate Cancer: Yes - PSYCHIATRIC Hx Psychophysiologic Disorder: No Hx Substance Use: No - SURGICAL HISTORY Hx Amputation: Yes (L toes 1-3) Hx Angioplasty: Yes (L tibial artery ) Other/Comment: prostatectomy, incision and drainage of right hand abscess - ANESTHESIA Hx Anesthesia Reactions: No Hx Malignant Hyperthermia: No Meds Allergies/Adverse Reactions: Allergies Allergy/AdvReac Type Severity Reaction Status Date / Time banana Allergy SWELLING Verified 08/08/17 04:43 shrimp Allergy SWELLING Verified 08/08/17 04:43 - Medications Medications: Current Medications Abacavir Sulfate (Ziagen) 300 mg PO BID [facility] Acetaminophen (Tylenol 325mg Tab) 650 mg PO Q4H PRN PRN Reason: Fever >100.4 F Albuterol/Ipratropium (Duoneb 3 Mg/0.5 Mg (3 Ml) Ud) 3 ml IH Q2H PRN PRN Reason: Shortness of Breath Allopurinol (Zyloprim) 300 mg PO DAILY [facility] Last Admin: 08/08/17 14:06 Dose: 300 mg Amlodipine Besylate (Norvasc) 10 mg PO DAILY [facility] Last Admin: 08/08/17 14:07 Dose: 10 mg Enoxaparin Sodium (Lovenox) 40 mg SC DAILY [facility] PRN Reason: Protocol Ergocalciferol (Drisdol 50,000 Intl Units Cap) 1 cap PO Q7D [facility] Last Admin: 08/08/17 14:06 Dose: 1 cap Ferrous Gluconate (Fergon) 324 mg PO TID [facility] Last Admin: 08/08/17 14:06 Dose: 324 mg Hydralazine HCl (Apresoline) 25 mg PO Q4 PRN PRN Reason: Systolic Blood Pressure > 180 Vancomycin HCl (Vancomycin 1gm) 1 gm in 250 mls @ 167 mls/hr IVPB POSTDI [facility] Stop: 08/08/17 16:30 Last Admin: 08/08/17 14:50 Dose: 167 mls/hr Lamivudine (Epivir) 150 mg PO DAILY [facility] Losartan Potassium (Cozaar) 100 mg PO DAILY [facility] Meclizine HCl (Antivert) 25 mg PO Q8H PRN PRN Reason: Dizziness Metoprolol Tartrate (Lopressor) 100 mg PO Q12 [facility] Morphine Sulfate (Morphine) 2 mg IVP Q4H PRN PRN Reason: Pain, moderate (4-7) Last Admin: 08/08/17 12:15 Dose: 2 mg Dolutegravir Sodium [Tivicay] 50 Mg ( Home Med) 50 mg PO DAILY [facility] Ondansetron HCl (Zofran Inj) 4 mg IVP Q4H PRN PRN Reason: Nausea/Vomiting Pantoprazole Sodium (Protonix Ec Tab) 40 mg PO 0600 [facility] Sevelamer HCl (Renagel) 1,600 mg PO TID [facility] Last Admin: 08/08/17 14:06 Dose: 1,600 mg Vitamin B Complex/Vit C/Folic Acid (Nephro-Christel) 1 tab PO DAILY [facility] Last Admin: 08/08/17 14:06 Dose: 1 tab Physical Exam - Constitutional Appears: Well, Non-toxic, No Acute Distress - Extremities Exam Extremities exam: Negative for: calf tenderness Additional comments: VASC: DP and PT nonpalpable. Temperature gradient cool to cool. CFT delayed. +1 pitting edema noted to the LE. DERM: Right: Necrotic eschar unstageable ulceration at the medial aspect of right medial malleolus measuring 3cm x 2cm x 0.2cm with hyperkeratotic rim. No malodor noted. No purulent drainage noted. No tracking noted. No probe to bone. Mild erythema to margins <0.5cm. No sign of acute infection is noted at this time. Second oNecrotic eschar unstageable ulceration lateral aspect of right heel measuring 2cm x 0.5cm x 0.2cm with fibrotic base with hyperpigmented margins showing signs of necrosis, No malodor noted. No purulent drainage noted. No tracking noted. No probe to bone. Mild erythema to margins <0.5cm. No sign of acute infection is noted at this time LEFT: 3rd digit partial amputation surgical incision appears well coapted with sutures intact and no wound dehiscence noted. Dried/crusted blood noted periwound. Discoloration noted to the distal stump of the amputation site. NEURO: gross and protective sensation diminished ORTHO: RIGHT medial aspect of the ankle and medial aspect of the rearfoot, posterior heel, and midfoot are painful with palpation; gross midfoot collapse is appreciated secondary to Charcot. LEFT 1st and 2nd digit amputation noted, with recent partial 3rd digit amputation. - Neurological Exam Neurological exam: Alert, Oriented x3 - Psychiatric Exam Psychiatric exam: Normal Affect, Normal Mood Results - Vital Signs Recent Vital Signs: Last Vital Signs Temp 98.8 F 08/08/17 06:00 Pulse 79 08/08/17 06:00 Resp 18 08/08/17 06:00 BP 144/76 08/08/17 14:07 Pulse Ox 96 08/08/17 06:00 - Labs Result Diagrams: 08/07/17 23:40 08/07/17 23:40 Labs: Laboratory Results - last 24 hr 08/08/17 12:30 ESR 72 H Assessment & Plan - Assessment and Plan (Free Text) Assessment: 72 y.o male with PMH of PAD, HIV, prostate cancer, HTN, HLD, GERD, gout, ESRD on HD, OM s/p amputation left 1-3 digits with 4 weeks s/p partial 3rd digit amputation and multiple right lower extremity eschar ulcerations Plan: Patient examined and evaluated Labs, charts, vitals reviewed Discussed plan in detail with attending Dr. Caldwell ABIs ordered for b/l LE. Vascular consult is appreciated- thank you for the recommendations Ulceration is cleansed with saline solution and 4x4 and kerlix applied to LE. Left 3rd digit surgical site will be cleansed with betadine and dressed with gauze and lexx. Ordered multipodus boots. Must be worn at all times while in bed Podiatry will continue to follow while in house Thank you for the consult.
--- NOTE | 2017-08-09 01:38 | CON ---
DATE: 08/08/2017 TIME: 06:23 p.m. CHIEF COMPLAINT AND HISTORY OF PRESENT ILLNESS: I know Mr. Sagastume from a recent admission in late June. At that time, he underwent below-knee angioplasty and arthrectomy on the left with subsequent partial toe amputation. He is now admitted with severe right ischemic foot pain and ankle ulcers. It is interfering with the sleep. He rates at 10/10. He has ischemic pressure ulcers on the medial and lateral aspect of the right foot. His right femoral pulse is easily palpable. His right popliteal and distal pulses are not palpable. PAST MEDICAL HISTORY: Significant for HIV, prostate cancer, hypertension, and end-stage renal disease. I reviewed Mr. Sagastume's angiogram. On the right, he has a focal popliteal lesion and one-vessel runoff with multiple stenosis in the posterior tibial artery. The right anterior tibial and peroneal arteries are occluded. PLAN: I will perform an angiogram of the right lower extremity tomorrow. Hopefully, the popliteal and posterior tibial lesions can be adequately addressed. The situation was discussed with Mr. Sagastume. Emmanuel Good MD MTDD
[2017-08-09] MEDS: Pantoprazole 40 mg EC Tab PO SCH (05:23)
[2017-08-09 07:37] LABS: HEMATOCRIT 31.4 % (42.0-52.0); MEAN CELL VOLUME 95.4 fl (80.0-105.0); MEAN CORPUSCULAR HEMOGLOBIN 30.1 pg (25.0-35.0); MEAN CORPUSCULAR HGB CONC 31.5 g/dl (31.0-37.0); MEAN PLATELET VOLUME 11.1 fl (7.0-11.0); WHITE BLOOD COUNT 10.6 10^3/ul (4.5-11.0)
[2017-08-09 07:38] LABS: INR 1.32 (0.93-1.08)
[2017-08-09 07:58] LABS: ALB/GLOB RATIO 0.8 (1.1-1.8); BILIRUBIN,TOTAL 0.4 mg/dL (0.2-1.3); CALCIUM 10.4 mg/dL (8.4-10.5); POTASSIUM 3.7 mmol/L (3.6-5.0); TOTAL PROTEIN 7.7 g/dL (5.8-8.3)
[2017-08-09] MEDS ORDERED: HYDROmorphone 1 mg/ml ISec IVP PRN (09:10)
[2017-08-09] MEDS ORDERED: Sodium Chloride 0.9% 1,000 ML IV SCH (09:15)
[2017-08-09] MEDS ORDERED: Vancomycin 500 mg Inj IVPB SCH ×2 (09:15→10:00)
[2017-08-09] MEDS ORDERED: Lidocaine 2% Inj (20ml) ONE (09:35)
[2017-08-09] MEDS ORDERED: Midazolam 2 MG/2 ML VIAL ONE ×2 (09:36→10:05)
[2017-08-09] MEDS ORDERED: Iodixanol 320 MG/ML 100 ML BOTTLE IV ONE (09:36)
[2017-08-09] MEDS ORDERED: HEPARIN SODIUM/NS 2,000 ML IV ONE (09:36)
[2017-08-09] MEDS ORDERED: Iodixanol 320 MG/ML 200 ML BOTTLE IV ONE (09:36)
[2017-08-09] MEDS ORDERED: Iodixanol 320 mg/ml 150 ml Bottle IV ONE (09:48)
[2017-08-09] MEDS: Enoxaparin 40 mg Syringe SC SCH (10:25)
[2017-08-09] MEDS: DOLUTEGRAVIR SODIUM 50 MG PO SCH (10:25)
--- NOTE | 2017-08-09 10:40 | CP.PCM.PN ---
Subjective - Date & Time of Evaluation Date of Evaluation: 08/09/17 Time of Evaluation: 07:30 - Subjective Subjective: Patient was seen and examined at bedside. He is complaining of pain in his RLE. He states that he could not get rest due to his discomfort. He denies other complaints of chest pain, sob, fevers/chills, abdominal pain, headaches, numbness/tingling, headaches. He states that he is uncomfortable in his multipodus boot and had it off when seen by team, who put it back on him and encouraged him to continue using it at all times, as per podiatry recommendations. Objective - Vital Signs/Intake and Output Vital Signs (last 24 hours): Temp Pulse Resp BP Pulse Ox 98.8 F 88 20 160/80 H 96 08/09/17 08:46 08/09/17 08:46 08/09/17 08:46 08/09/17 08:46 08/09/17 08:46 Intake and Output: 08/09/17 08/09/17 06:59 18:59 Intake Total 900 Balance 900 - Medications Medications: Current Medications Abacavir Sulfate (Ziagen) 300 mg PO BID [facility] Last Admin: 08/09/17 10:26 Dose: Not Given Acetaminophen (Tylenol 325mg Tab) 650 mg PO Q4H PRN PRN Reason: Fever >100.4 F Albuterol/Ipratropium (Duoneb 3 Mg/0.5 Mg (3 Ml) Ud) 3 ml IH Q2H PRN PRN Reason: Shortness of Breath Allopurinol (Zyloprim) 300 mg PO DAILY [facility] Last Admin: 08/09/17 10:26 Dose: Not Given Amlodipine Besylate (Norvasc) 10 mg PO DAILY [facility] Last Admin: 08/08/17 14:07 Dose: 10 mg Enoxaparin Sodium (Lovenox) 40 mg SC DAILY [facility] PRN Reason: Protocol Last Admin: 08/09/17 10:25 Dose: Not Given Ergocalciferol (Drisdol 50,000 Intl Units Cap) 1 cap PO Q7D [facility] Last Admin: 08/08/17 14:06 Dose: 1 cap Ferrous Gluconate (Fergon) 324 mg PO TID [facility] Last Admin: 08/09/17 10:25 Dose: Not Given Hydralazine HCl (Apresoline) 25 mg PO Q4 PRN PRN Reason: Systolic Blood Pressure > 180 Hydromorphone HCl (Dilaudid) 1 mg IVP Q4H PRN PRN Reason: Pain, moderate (4-7) Sodium Chloride (Sodium Chloride 0.9%) 1,000 mls @ 100 mls/hr IV .Q10H [facility] Vancomycin HCl (Vancomycin 1gm) 1 gm in 250 mls @ 167 mls/hr IVPB TTS@1400 [facility] Lamivudine (Epivir) 150 mg PO DAILY [facility] Last Admin: 08/09/17 10:25 Dose: Not Given Losartan Potassium (Cozaar) 100 mg PO DAILY [facility] Last Admin: 08/09/17 10:24 Dose: Not Given Meclizine HCl (Antivert) 25 mg PO Q8H PRN PRN Reason: Dizziness Metoprolol Tartrate (Lopressor) 100 mg PO Q12 [facility] Last Admin: 08/09/17 10:25 Dose: Not Given Dolutegravir Sodium [Tivicay] 50 Mg ( Home Med) 50 mg PO DAILY [facility] Last Admin: 08/09/17 10:25 Dose: Not Given Ondansetron HCl (Zofran Inj) 4 mg IVP Q4H PRN PRN Reason: Nausea/Vomiting Pantoprazole Sodium (Protonix Ec Tab) 40 mg PO 0600 [facility] Last Admin: 08/09/17 05:23 Dose: 40 mg Sevelamer HCl (Renagel) 1,600 mg PO TID [facility] Last Admin: 08/09/17 10:25 Dose: Not Given Vitamin B Complex/Vit C/Folic Acid (Nephro-Christel) 1 tab PO DAILY [facility] Last Admin: 08/08/17 14:06 Dose: 1 tab - Labs Labs: 08/09/17 06:30 08/09/17 06:30 PT 14.6 SECONDS (9.4-12.5) H 08/09/17 06:30 INR 1.32 (0.93-1.08) H 08/09/17 06:30 APTT 40.8 Seconds (25.1-36.5) H 08/07/17 23:40 - Additional Findings Additional findings: - Constitutional Appears: Well, Non-toxic, No Acute Distress, Unkempt - Head Exam Head Exam: ATRAUMATIC, NORMOCEPHALIC - Eye Exam Eye Exam: EOMI, Normal appearance, PERRL - ENT Exam ENT Exam: Mucous Membranes Moist, Normal Exam - Neck Exam Neck exam: Positive for: Normal Inspection - Respiratory Exam Respiratory Exam: Clear to Auscultation Bilateral, NORMAL BREATHING PATTERN. absent: Rales, Rhonchi, Wheezes - Cardiovascular Exam Cardiovascular Exam: RRR, +S1, +S2. absent: JVD - GI/Abdominal Exam GI & Abdominal Exam: Normal Bowel Sounds, Soft. absent: Distended, Tenderness - Extremities Exam Extremities exam: Negative for: calf tenderness Additional comments: L toes 1-3 s/p amputation; 3rd L toe only partially amputated at distal portion R ankle wrapped, however, when exposed shows R medial mallelous 2inch ulcer poor pulses noted b/l popliteal and pedal chronic poor vascular skin changes - Back Exam Back exam: NORMAL INSPECTION - Neurological Exam Neurological exam: Alert, Oriented x3 - Psychiatric Exam Psychiatric exam: Normal Affect, Normal Mood - Skin Skin Exam: Normal Color, Warm Additional comments: feet skin changes noted as above Assessment and Plan - Assessment and Plan (Free Text) Assessment: 72 year old male with past medical history of ESRD on HD (Sunday// Sunday), PAD, osteomyelitis s/p amputation of L toes 1-3 (only distal portion of 3rd toe), severe PAD s/p angioplasty of L tibial artery, HIV (last CD4 count here at [facility] [place] 04/2017 420), Prostate cancer s/p prostatectomy, HTN, HLD, GERD and gout who presented to the ED from [facility] with AMS and confusion. Patient has been alert and responsive since admission, so transient AMS was likely delirium 2/2 post-dialysis electrolyte/homeostatic changes and polypharmacy. CT Head was unremarkable and pt is afebrile with negative cultures. MRI will be done to r/o osteo of L foot. Patient also has R foot ulcer, which will be managed by podiatry. PAD will be managed by IR. HD will be continued and renal is consulted. Pt's other medical issues will be managed accordingly. Plan: 1. AMS, now resolved - CT Head positive for nonspecific white matter changes, negative for hemorrhage or masses - Blood cultures negative - Neurochecks QShift - VS checks - Pt is afebrile, with no leukocytosis - low ammonia level - SW referral - PT/OT eval 2. R foot ulcer 2/2 severe PAD s/p angioplasty - cont Lovenox - LE arterial duplex ordered; showed moderately severe PAD distal at level of calf and distally - IR consulted, pt undergoing femoral angio this morning (Liquid diet since AM) - Podiatry consulted, recs appreciated 3. Hx osteomyelitis of L foot s/p amputation - r/o current infection - cont Vancomycin post-dialysis on TTS schedule - MRI ordered for b/l feet - CRP and ESR elevated - Tylenol PRN fevers - Morphine held; will continue on Dilaudid PRN - Zofran PRN - podiatry consulted, recs appreciated - ID consulted, recs appreciated 4. ESRD on HD - HD schedule Sun//Sat - pt to go to HD today - ESRD is likely cause of anemia - cont vit D, Fergon, Renagel, Nephro-Christel - Renal consulted, recs appreciated 5. Hx HIV - continue home Ziagen, Lamivudine, Tivicay 6. Hx Prostate CA - monitor urinary output 7. Hx HTN - continue Norvasc, Losartan, Lopressor - Hydralazine PRN - will monitor VS 8. Hx HLD - lipid panel shows normal level LDL 9. Hx COPD - no wheezing noted on exam - Duoneb PRN 10. Hx GERD - PTX 11. Hx Gout - cont allopurinol - avoid triggers 12. Hx vertigo - Meclizine PRN 13. DVT/GI PPX - Lovenox/PTX Patient was seen, examined and discussed with attending, Dr. Shama Ramsay PGY1 Pager # [phone]
[2017-08-09] MEDS: Multivitamin Vitamin B Complex (Nephro-Vite) Tab PO SCH (14:06)
[2017-08-09] MEDS: Vancomycin 1gm in NS 250ml 1 GM/250 ML BAG IVPB SCH (14:36)
--- NOTE | 2017-08-09 15:23 | CP.PCM.PN ---
Subjective - Date & Time of Evaluation Date of Evaluation: 08/09/17 Time of Evaluation: 15:23 - Subjective Subjective: s/p angiogram for PVD today plan for HD today Objective - Vital Signs/Intake and Output Vital Signs (last 24 hours): Temp Pulse Resp BP Pulse Ox 98 F 109 H 21 164/86 H 96 08/09/17 11:45 08/09/17 13:00 08/09/17 13:00 08/09/17 13:00 08/09/17 08:46 Intake and Output: 08/09/17 08/09/17 06:59 18:59 Intake Total 900 Balance 900 - Medications Medications: Current Medications Abacavir Sulfate (Ziagen) 300 mg PO BID [facility] Last Admin: 08/09/17 10:26 Dose: Not Given Acetaminophen (Tylenol 325mg Tab) 650 mg PO Q4H PRN PRN Reason: Fever >100.4 F Albuterol/Ipratropium (Duoneb 3 Mg/0.5 Mg (3 Ml) Ud) 3 ml IH Q2H PRN PRN Reason: Shortness of Breath Allopurinol (Zyloprim) 300 mg PO DAILY [facility] Last Admin: 08/09/17 10:26 Dose: Not Given Amlodipine Besylate (Norvasc) 10 mg PO DAILY [facility] Last Admin: 08/09/17 14:06 Dose: Not Given Enoxaparin Sodium (Lovenox) 40 mg SC DAILY [facility] PRN Reason: Protocol Last Admin: 08/09/17 10:25 Dose: Not Given Ferrous Gluconate (Fergon) 324 mg PO TID [facility] Last Admin: 08/09/17 14:35 Dose: Not Given Hydralazine HCl (Apresoline) 25 mg PO Q4 PRN PRN Reason: Systolic Blood Pressure > 180 Hydromorphone HCl (Dilaudid) 1 mg IVP Q4H PRN PRN Reason: Pain, moderate (4-7) Vancomycin HCl (Vancomycin 1gm) 1 gm in 250 mls @ 167 mls/hr IVPB TTS@1400 [facility] Last Admin: 08/09/17 14:36 Dose: Not Given Lamivudine (Epivir) 150 mg PO DAILY [facility] Last Admin: 08/09/17 10:25 Dose: Not Given Losartan Potassium (Cozaar) 100 mg PO DAILY [facility] Last Admin: 08/09/17 10:24 Dose: Not Given Meclizine HCl (Antivert) 25 mg PO Q8H PRN PRN Reason: Dizziness Metoprolol Tartrate (Lopressor) 100 mg PO Q12 [facility] Last Admin: 08/09/17 10:25 Dose: Not Given Dolutegravir Sodium [Tivicay] 50 Mg ( Home Med) 50 mg PO DAILY [facility] Last Admin: 08/09/17 10:25 Dose: Not Given Ondansetron HCl (Zofran Inj) 4 mg IVP Q4H PRN PRN Reason: Nausea/Vomiting Pantoprazole Sodium (Protonix Ec Tab) 40 mg PO 0600 [facility] Last Admin: 08/09/17 05:23 Dose: 40 mg Sevelamer HCl (Renagel) 1,600 mg PO TID [facility] Last Admin: 08/09/17 14:35 Dose: Not Given Vitamin B Complex/Vit C/Folic Acid (Nephro-Christel) 1 tab PO DAILY [facility] Last Admin: 08/09/17 14:06 Dose: Not Given - Labs Labs: 08/09/17 06:30 08/09/17 06:30 PT 14.6 SECONDS (9.4-12.5) H 08/09/17 06:30 INR 1.32 (0.93-1.08) H 08/09/17 06:30 APTT 40.8 Seconds (25.1-36.5) H 08/07/17 23:40
--- NOTE | 2017-08-09 17:38 | US ---
PROCEDURE: Lower extremity MARLENI exam HISTORY: Severe peripheral vascular disease. Ischemic pain and ulceration right ankle. Recent left lower extremity endovascular intervention. PHYSICIAN(S): Emmanuel Good MD. FINDINGS: The right resting MARLENI is severely abnormal, 0.54. The left resting MARLENI is normal, 1.10 The high thigh pressures and waveforms are relatively normal. The calf PVR waveforms augment normally. No significant gradients are noted across the thighs. There is a significant gradient across the right knee. The right ankle and metatarsal waveforms are severely diminished. Findings are consistent with right popliteal, trifurcation, and/ or tibial disease. The left ankle and metatarsal waveforms are relatively normal. This suggests the recent left lower extremity intervention is patent. IMPRESSION: 1. Severely abnormal right MARLENI at rest. 2. Right popliteal, trifurcation, and/or tibial disease. 3. Normal left MARLENI and waveforms at all levels
--- NOTE | 2017-08-09 18:16 | VASCULAR ---
PROCEDURE: 1. Abdominal aortogram and bilateral lower extremity runoff. 2. Right popliteal artery jet stream atherectomy and drug-eluting balloon angioplasty 3. Diffuse right posterior tibial artery atherectomy with jet stream and CS I followed by angioplasty. HISTORY: Severe peripheral vascular disease. He make rest pain right foot with medial and lateral ankle ulcerations are not healing. Recent left lower extremity tibial intervention. PHYSICIAN(S): Emmanuel Good M.D. TECHNIQUE: The relative risks and indications of the procedure were explained to the patient and consent obtained. The patient was placed supine on the arteriogram table and the left groin prepped and draped in the usual sterile fashion. Conscious sedation and monitoring were provided throughout the procedure by a nurse. Via a left common femoral artery approach, a 5 Slovak sheath was placed in the left groin. Through the sheath and over a guidewire, a 5 Slovak flush catheter was placed in the abdominal aorta at the level of the aortic bifurcation and an abdominal and pelvic arteriogram performed. Overlapping bilateral lower extremity DSA arteriograms were obtained from the inguinal ligaments to the feet. A 0.035 angled Glidewire was advanced over the bifurcation and placed in the distal right SFA. A 7 Slovak 65 cm destination sheath was placed in the mid to distal right SFA. Heparin 6000 units IV and nitroglycerin in 250 mcg aliquots were given. The focal stenosis in the right popliteal artery and the severe disease in the proximal to mid right posterior tibial artery were crossed with a trail laser catheter and 0.035 glidewire. Exchange was made for a a 0.014 support wire. Jet stream atherectomy of the right popliteal artery followed by a partial jet stream atherectomy of the proximal to mid right posterior tibial artery was performed with 1.85 mm catheter. The catheter would not cross disease in the mid right posterior tibial artery. Subsequently 81.25 CS I micro kayce was used to perform atherectomy of the mid to distal right posterior tibial artery. The right posterior tibial artery was dilated with a 3.5/3.0 by 210 tapered balloon. An excellent angiographic result was obtained. Right popliteal artery was dilated with 5 mm x 120 mm drug-eluting balloon. Completion angiograms were obtained. The sheath was removed and hemostasis obtained with a Mynx device. The patient tolerated the procedure well. FINDINGS: The terminal abdominal aorta is calcified but widely patent. Aortic bifurcation is patent. The common external iliac arteries are very tortuous but widely patent. The internal iliac arteries are patent bilaterally P Right lower extremity: The right common femoral artery is patent. The right profunda femoral artery is patent. The right superficial femoral artery is calcified and patent with diffuse atherosclerotic disease. No radiographically significant stenosis is appreciated in the right SFA. There is a severe focal stenosis of the right popliteal artery at the knee. Severe right trifurcation and tibial occlusive disease. The right anterior tibial artery and right peroneal artery are occluded. There is severe diffuse disease of the proximal to mid right posterior tibial artery with isolated stenoses in the distal right posterior tibial artery. The right plantar arch is patent proximally. The right dorsalis pedis artery is not opacified. Pedal disease is present with collaterals. Left lower extremity: Left common femoral artery is patent. The left profunda femoral artery is patent. The left superficial femoral artery is patent and continuous without a radiographically significant stenosis. The left popliteal artery is patent and continuous. The recently treated left posterior tibial artery is widely patent. The distal stent is patent. Continuous flow to the foot is seen IMPRESSION: 1.Successful right popliteal artery jet stream atherectomy and drug-eluting balloon angioplasty. 2. Successful diffuse right posterior tibial artery atherectomy and angioplasty as described above. 3. Widely patent left posterior tibial artery intervention
--- NOTE | 2017-08-09 21:18 | PN ---
DATE: 08/09/2017 SUBJECTIVE: This 72-year-old male seen at bedside, predialysis, for followup of right heel ulcers and a third toe necrotic toe. The patient had angioplasty today for ischemia to the right lower extremity. I did speak with Dr. Good, who did the angioplasty states the patient has 2 vessel flow. MEDICATIONS: The patient's medications are noted on OCT. He is presently on Lovenox. I did speak with Dr. Good. He stated it is okay for me to hold this Lovenox tonight and we will restart it tomorrow. ALLERGIES: THE PATIENT HAS ALLERGIES TO BANANA AND SHRIMP. PHYSICAL EXAMINATION VITAL SIGNS: Reviewed. His temperature is 98.0. His blood pressure 161/83 and his respirations are 20. The patient does have a posterior tibial +2 normal Doppler signal. LABORATORY DATA: His labs were also reviewed. His white blood cell count is 10.6, H and H is 9.9 and 31.4 and the platelets are 326. ESR is 72. His chemistries has BUN and creatinine of 52 and 5.6. He is going for dialysis as we speak. The patient's CRP was greater than 1500. Microbiology; blood culture showed no growth. The patient seen at bedside post angioplasty. His dressings are clean,dry and intact to both lower extremities. He has a necrotic ulceration on the medial foot overlying the navicular talar joint and that extends dorsally onto the top of the foot. He also has necrotic ulceration on posterior aspect of the heel. Both of these are dry necrotic tissue. There is no cellulitis noted to them and at this time, there was no fluctuance. ASSESSMENT: Peripheral vascular disease with unstageable ulcers to his right heel. He is status post amputation of the third toe on his left. PLAN OF TREATMENT: Since he has just been revascularized, we are going to taking him downstairs to the OR tomorrow to debride and clean his ulcers to give them a good chance of healing. His left foot surgical site will just be left alone. He does have one-vessel runoff to the foot from his previous angioplasty and it is still open, that distal tip which has been necrosed, will be left to auto-amputate. We also ordered heel boots the patient and he will be seen and followed tomorrow for OR. I did speak to the patient and he does understand and he has agreed to the surgical procedure. Suri Caldwell DPM
[2017-08-09] MEDS: Cefepime 1gm in NS 100ml 1 GM/100 ML BAG IVPB SCH (22:03)
--- NOTE | 2017-08-10 04:11 | CON ---
DATE: 08/09/2017 LOCATION: The patient was seen earlier in dialysis. REASON FOR CONSULTATION: The patient was initially admitted with change in mental status from several days. HISTORY OF PRESENT ILLNESS: This is a 72-year-old male, shelter patient, known to me from previous admissions with history of hypertension, history of HIV with viral load undetectable, he says of 04/2017 and with T-cells of 420 with a prostate cancer, left first toe osteomyelitis, gout, hypertension, pseudomembranous colitis, history of left foot Charcot disease, Escherichia coli bacteremia and pyelonephritis, peripheral artery disease with prostate surgery in the past, and history of right hand surgery. HE IS ALLERGIC TO BANANA AND SHRIMP who was admitted with change in mental status. At this time, his mental status is fine, on dialysis. He knows where he is. He has no fever, no chills and no chest pain. There is mild shortness of breath, but no abdominal pain or diarrhea. PAST MEDICAL HISTORY: Significant for gout, pseudomembranous colitis, chronic renal failure on hemodialysis, positive HIV, prostate cancer, left first toe osteomyelitis, E. coli bacteremia, pyelonephritis, and peripheral artery disease. PAST SURGICAL HISTORY: Significant for prostate surgery and right hand surgery. ALLERGIES: THE PATIENT IS ALLERGIC TO BANANA AND SHRIMP. MEDICATIONS: Revealed the patient to be on Renagel, amlodipine, Protonix, Lovenox, Lopressor, Epivir, Abacavir, and dolutegravir. PHYSICAL EXAMINATION GENERAL: The patient is in bed. VITAL SIGNS: With a temperature of 98, blood pressure is 150/70, respiratory rate of 16, it went up to 22, and his heart rate went up to 102. HEENT: Examination of HEENT is unremarkable. NECK: Supple. LUNGS: Decreased breath sounds. HEART: Normal S1 and S2. GASTROINTESTINAL: Abdominal examination is soft and nontender. LABORATORY DATA: Reveals the white count is 9.7, hemoglobin of 10, and platelets of 307. Chemistry reveals a BUN of 36 and creatinine of 3.9. Toxicology is noted. Microbiology reveals the blood cultures of no growth. DIAGNOSTIC DATA: A CAT scan of the head which is unremarkable. Chest x-ray is negative. ASSESSMENT AND PLAN: This is a 72-year-old male, shelter patient with hypertension; chronic renal failure, on hemodialysis; positive human immunodeficiency virus with T-cells 420 undetectable, on Abacavir, Lamivudine, and Tivicay which is dolutegravir, left first toe osteomyelitis, prostate cancer, gout, pseudomembranous colitis, history of left foot Charcot, history of Escherichia coli bacteremia and pyelonephritis, now presenting with change in mental status; and tachycardia and dyspnea with SIRS (systemic inflammatory response syndrome) with change in mental status, which is improved, may have been secondary to volume overload. Positive human immunodeficiency virus and positive severe peripheral vascular disease, but negative blood cultures, negative chest x-ray currently. Review of old microbiology reveals the patient had Corynebacterium in the past, we will give one dose of vancomycin and start the patient on Maxipime. The patient has already been placed on vancomycin currently on gram during dialysis. The patient is scheduled for MRI without contrast of the foot and we will follow closely with you. Overall prognosis is poor for this man who has multiple medical issues. We will also add Maxipime for now 1 gram q. 24 hours., pending final workup results. We will follow closely with you. Cesar Flowers MD
[2017-08-10] MEDS: Pantoprazole 40 mg EC Tab PO SCH (05:34)
[2017-08-10 07:09] LABS: HEMATOCRIT 31.3 % (42.0-52.0); MEAN CORPUSCULAR HEMOGLOBIN 30.1 pg (25.0-35.0); MEAN CORPUSCULAR HGB CONC 31.3 g/dl (31.0-37.0); MEAN PLATELET VOLUME 10.8 fl (7.0-11.0); WHITE BLOOD COUNT 10.7 10^3/ul (4.5-11.0)
[2017-08-10 07:36] LABS: ALB/GLOB RATIO 0.7 (1.1-1.8); BILIRUBIN,TOTAL 0.6 mg/dL (0.2-1.3); CALCIUM 9.7 mg/dL (8.4-10.5); POTASSIUM 3.6 mmol/L (3.6-5.0); TOTAL PROTEIN 7.6 g/dL (5.8-8.3)
[2017-08-10] MEDS: Multivitamin Vitamin B Complex (Nephro-Vite) Tab PO SCH (09:16)
[2017-08-10] MEDS: DOLUTEGRAVIR SODIUM 50 MG PO SCH (09:18)
--- NOTE | 2017-08-10 10:11 | CP.PCM.PN ---
Subjective - Date & Time of Evaluation Date of Evaluation: 08/10/17 Time of Evaluation: 08:20 - Subjective Subjective: Patient was seen and examined at bedside. He denies any acute overnight events and states that he tolerated his dialysis very well yesterday. he denies fevers/ chill, n/v/d, cp, cough, sob, abdominal pain or numbness/tingling. The patient was told that he will be going to the OR this morning for surgical debridement with Dr. Caldwell. The patient understands and his questions were answered. Objective - Vital Signs/Intake and Output Vital Signs (last 24 hours): Temp Pulse Resp BP Pulse Ox 98.7 F 90 22 156/78 H 96 08/10/17 08:16 08/10/17 09:17 08/10/17 07:33 08/10/17 09:17 08/10/17 07:33 Intake and Output: 08/10/17 08/10/17 06:59 18:59 Intake Total 360 Balance 360 - Medications Medications: Current Medications Abacavir Sulfate (Ziagen) 300 mg PO BID [facility] Last Admin: 08/10/17 09:16 Dose: 300 mg Acetaminophen (Tylenol 325mg Tab) 650 mg PO Q4H PRN PRN Reason: Fever >100.4 F Last Admin: 08/10/17 06:23 Dose: 650 mg Albuterol/Ipratropium (Duoneb 3 Mg/0.5 Mg (3 Ml) Ud) 3 ml IH Q2H PRN PRN Reason: Shortness of Breath Allopurinol (Zyloprim) 300 mg PO DAILY [facility] Last Admin: 08/10/17 09:16 Dose: 300 mg Amlodipine Besylate (Norvasc) 10 mg PO DAILY [facility] Last Admin: 08/10/17 09:16 Dose: 10 mg Enoxaparin Sodium (Lovenox) 40 mg SC DAILY [facility] PRN Reason: Protocol Last Admin: 08/09/17 10:25 Dose: Not Given Ferrous Gluconate (Fergon) 324 mg PO TID [facility] Last Admin: 08/10/17 09:16 Dose: 324 mg Hydralazine HCl (Apresoline) 25 mg PO Q4 PRN PRN Reason: Systolic Blood Pressure > 180 Hydromorphone HCl (Dilaudid) 1 mg IVP Q4H PRN PRN Reason: Pain, moderate (4-7) Vancomycin HCl (Vancomycin 1gm) 1 gm in 250 mls @ 167 mls/hr IVPB TTS@1400 [facility] Last Admin: 08/09/17 14:36 Dose: Not Given Cefepime HCl (Maxipime 1gm) 1 gm in 100 mls @ 100 mls/hr IVPB Q24H DWAIN PRN Reason: Protocol Stop: 08/18/17 19:46 Last Admin: 08/09/17 22:03 Dose: 100 mls/hr Lamivudine (Epivir) 150 mg PO DAILY [facility] Last Admin: 08/10/17 09:16 Dose: 150 mg Losartan Potassium (Cozaar) 100 mg PO DAILY [facility] Last Admin: 08/10/17 09:16 Dose: 100 mg Meclizine HCl (Antivert) 25 mg PO Q8H PRN PRN Reason: Dizziness Metoprolol Tartrate (Lopressor) 100 mg PO Q12 [facility] Last Admin: 08/10/17 09:17 Dose: 100 mg Dolutegravir Sodium [Tivicay] 50 Mg ( Home Med) 50 mg PO DAILY [facility] Last Admin: 08/10/17 09:18 Dose: Not Given Ondansetron HCl (Zofran Inj) 4 mg IVP Q4H PRN PRN Reason: Nausea/Vomiting Pantoprazole Sodium (Protonix Ec Tab) 40 mg PO 0600 [facility] Last Admin: 08/10/17 05:34 Dose: 40 mg Sevelamer HCl (Renagel) 1,600 mg PO TID [facility] Last Admin: 08/10/17 09:16 Dose: 1,600 mg Vitamin B Complex/Vit C/Folic Acid (Nephro-Christel) 1 tab PO DAILY [facility] Last Admin: 08/10/17 09:16 Dose: 1 tab - Labs Labs: 08/10/17 06:20 08/10/17 06:20 PT 14.6 SECONDS (9.4-12.5) H 08/09/17 06:30 INR 1.32 (0.93-1.08) H 08/09/17 06:30 APTT 40.8 Seconds (25.1-36.5) H 08/07/17 23:40 - Constitutional Appears: Well, Non-toxic, No Acute Distress - Head Exam Head Exam: ATRAUMATIC, NORMAL INSPECTION, NORMOCEPHALIC - Eye Exam Eye Exam: EOMI, Normal appearance, PERRL - ENT Exam ENT Exam: Mucous Membranes Moist - Neck Exam Neck Exam: Normal Inspection - Respiratory Exam Respiratory Exam: Clear to Ausculation Bilateral, NORMAL BREATHING PATTERN. absent: Rhonchi, Wheezes - Cardiovascular Exam Cardiovascular Exam: RRR, +S1, +S2. absent: JVD - GI/Abdominal Exam GI & Abdominal Exam: Soft, Normal Bowel Sounds. absent: Distended, Tenderness - Extremities Exam Extremities Exam: absent: Pedal Edema Additional comments: b/l dressing applied to feet chronic poor circulation skin changes L toes 1-2 fully and 3 partially amputated at distal portion poor pulses noted b/l popliteal and pedal - Back Exam Back Exam: NORMAL INSPECTION - Neurological Exam Neurological Exam: Alert, Awake, Oriented x3 - Psychiatric Exam Psychiatric exam: Normal Affect, Normal Mood - Skin Skin Exam: Normal Color, Warm Additional comments: feet skin changes noted as above Assessment and Plan - Assessment and Plan (Free Text) Assessment: 72 year old male with past medical history of ESRD on HD (Sunday// Sunday), PAD, osteomyelitis s/p amputation of L toes 1-3 (only distal portion of 3rd toe), severe PAD s/p angioplasty of L tibial artery, HIV (last CD4 count here at [facility] 04/2017 420), Prostate cancer s/p prostatectomy, HTN, HLD, GERD and gout who presented to the ED from [facility] with AMS and confusion. Patient has been alert and responsive since admission, so transient AMS was likely delirium 2/2 post-dialysis electrolyte/homeostatic changes. MRI will be done to r/o osteo of L foot. Patient also has foot ulcers, for which podiatry is doing surgical debridement today. PAD will be managed by IR. HD will be continued and renal is consulted. Pt's other medical issues will be managed accordingly. Plan: 1. AMS, now resolved - CT Head positive for nonspecific white matter changes, negative for hemorrhage or masses - Blood cultures negative - Neurochecks QShift - VS checks - Pt is afebrile, with no leukocytosis - low ammonia level - referral - PT/OT eval 2. R foot ulcer 2/2 severe PAD s/p angioplasty - cont Lovenox - LE arterial duplex ordered; showed moderately severe PAD distal at level of calf and distally - IR consulted, pt underwent femoral angio yesterday with successful R popliteal and posterior tibial a. angioplasties - Podiatry consulted, recs appreciated 3. Hx osteomyelitis of L foot s/p amputation - r/o current infection - cefepime started today by ID - cont Vancomycin post-dialysis on TTS schedule - MRI ordered for b/l feet - CRP and ESR elevated - Tylenol PRN fevers - Dilaudid PRN - Zofran PRN - podiatry consulted, recs appreciated - ID consulted, recs appreciated 4. ESRD on HD - HD schedule Sun//Sun - Dialysis yesterday was tolerated - ESRD is likely cause of anemia - cont vit D, Fergon, Renagel, Nephro-Christel - Renal consulted, recs appreciated 5. Hx HIV - continue home Ziagen, Lamivudine, Tivicay 6. Hx Prostate CA - monitor urinary output 7. Hx HTN - continue Norvasc, Losartan, Lopressor - Hydralazine PRN - will monitor VS 8. Hx HLD - lipid panel shows normal level LDL 9. Hx COPD - no wheezing noted on exam - Duoneb PRN 10. Hx GERD - PTX 11. Hx Gout - cont allopurinol - avoid triggers 12. Hx vertigo - Meclizine PRN 13. DVT/GI PPX - Lovenox/PTX Patient was seen, examined and discussed with attending, Dr. Angie Ramsay PGY1 Pager # [phone]
--- NOTE | 2017-08-10 12:18 | CP.PCM.PN ---
Subjective - Date & Time of Evaluation Date of Evaluation: 08/10/17 Time of Evaluation: 10:30 - Subjective Subjective: Podiatry pre-operative note- Dr. Caldwell 72 y.o male with PMH of PAD, HIV, prostate cancer, HTN, HLD, GERD, gout, ESRD on HD, OM s/p amputation left 1-3 digits seen at bedside for 4 weeks s/p partial 3rd digit amputation and multiple right lower extremity eschar ulcerations. Patient will be going to OR today for irrigation and debridement of ulcerations. Patient understands and is agreeable. Patient reports severe pain today to the LE. Patient denies n/v/sob/cp/chills or f. Patient reports nothing to eat or drink since last night. Objective - Vital Signs/Intake and Output Vital Signs (last 24 hours): Temp Pulse Resp BP Pulse Ox 98 F 73 20 143/66 96 08/10/17 11:55 08/10/17 11:55 08/10/17 11:55 08/10/17 11:55 08/10/17 11:55 Intake and Output: 08/10/17 08/10/17 06:59 18:59 Intake Total 360 Balance 360 - Medications Medications: Current Medications Abacavir Sulfate (Ziagen) 300 mg PO BID [facility] Last Admin: 08/10/17 09:16 Dose: 300 mg Acetaminophen (Tylenol 325mg Tab) 650 mg PO Q4H PRN PRN Reason: Fever >100.4 F Last Admin: 08/10/17 06:23 Dose: 650 mg Albuterol/Ipratropium (Duoneb 3 Mg/0.5 Mg (3 Ml) Ud) 3 ml IH Q2H PRN PRN Reason: Shortness of Breath Allopurinol (Zyloprim) 300 mg PO DAILY [facility] Last Admin: 08/10/17 09:16 Dose: 300 mg Amlodipine Besylate (Norvasc) 10 mg PO DAILY [facility] Last Admin: 08/10/17 09:16 Dose: 10 mg Enoxaparin Sodium (Lovenox) 40 mg SC DAILY [facility] PRN Reason: Protocol Last Admin: 08/09/17 10:25 Dose: Not Given Ferrous Gluconate (Fergon) 324 mg PO TID [facility] Last Admin: 08/10/17 09:16 Dose: 324 mg Hydralazine HCl (Apresoline) 25 mg PO Q4 PRN PRN Reason: Systolic Blood Pressure > 180 Hydromorphone HCl (Dilaudid) 1 mg IVP Q4H PRN PRN Reason: Pain, moderate (4-7) Vancomycin HCl (Vancomycin 1gm) 1 gm in 250 mls @ 167 mls/hr IVPB TTS@1400 [facility] Last Admin: 08/09/17 14:36 Dose: Not Given Cefepime HCl (Maxipime 1gm) 1 gm in 100 mls @ 100 mls/hr IVPB Q24H [facility]WAIN PRN Reason: Protocol Stop: 08/18/17 19:46 Last Admin: 08/09/17 22:03 Dose: 100 mls/hr Lamivudine (Epivir) 150 mg PO DAILY [facility] Last Admin: 08/10/17 09:16 Dose: 150 mg Losartan Potassium (Cozaar) 100 mg PO DAILY [facility] Last Admin: 08/10/17 09:16 Dose: 100 mg Meclizine HCl (Antivert) 25 mg PO Q8H PRN PRN Reason: Dizziness Metoprolol Tartrate (Lopressor) 100 mg PO Q12 [facility] Last Admin: 08/10/17 09:17 Dose: 100 mg Dolutegravir Sodium [Tivicay] 50 Mg ( Home Med) 50 mg PO DAILY [facility] Last Admin: 08/10/17 09:18 Dose: Not Given Ondansetron HCl (Zofran Inj) 4 mg IVP Q4H PRN PRN Reason: Nausea/Vomiting Pantoprazole Sodium (Protonix Ec Tab) 40 mg PO 0600 [facility] Last Admin: 08/10/17 05:34 Dose: 40 mg Sevelamer HCl (Renagel) 1,600 mg PO TID [facility] Last Admin: 08/10/17 09:16 Dose: 1,600 mg Vitamin B Complex/Vit C/Folic Acid (Nephro-Christel) 1 tab PO DAILY [facility] Last Admin: 08/10/17 09:16 Dose: 1 tab - Labs Labs: 08/10/17 06:20 08/10/17 06:20 PT 14.6 SECONDS (9.4-12.5) H 08/09/17 06:30 INR 1.32 (0.93-1.08) H 08/09/17 06:30 APTT 40.8 Seconds (25.1-36.5) H 08/07/17 23:40 - Constitutional Appears: Well, Non-toxic, No Acute Distress - Extremities Exam Additional comments: Dressing is c/d/i to the lower extremity. - Neurological Exam Neurological Exam: Alert, Awake, Oriented x3 - Psychiatric Exam Psychiatric exam: Normal Affect, Normal Mood Assessment and Plan - Assessment and Plan (Free Text) Assessment: 72 y.o male with PMH of PAD, HIV, prostate cancer, HTN, HLD, GERD, gout, ESRD on HD, OM s/p amputation left 1-3 digits with 4 weeks s/p partial 3rd digit amputation preoperative evaluation for multiple right lower extremity eschar ulcerations Plan: Patient examined and evaluated Labs, charts, vitals reviewed Discussed plan in detail with attending Dr. Caldwell Right eschar ulcerations will be debrided in the OR today using Versajet. Left 3rd digit surgical site will be cleansed with betadine and dressed with gauze and lexx. Will continue to provide local wound care; Necrotic tissue to left 3rd digit will autoamputate. Pt was seen and examined in SDS Pt NPO status was confirmed All Pre-op testing and clearance was in the chart Pt has exhausted all conservative treatment at this time and is opting for surgical intervention Pt was explained procedure and post-operative course All pt's questions were answered to satisfaction No guarantees were made Pt understands all risks, benefits and complications of procedure Pt will follow-up with Will continue to follow while in house
[2017-08-10] MEDS ORDERED: Propofol 10 mg/ml Inj (20 ML) ONE ×2 (12:21→12:52)
[2017-08-10] MEDS ORDERED: Lidocaine 2% Inj (20ml) IJ ONE (12:32)
[2017-08-10] MEDS ORDERED: Bacitracin Ointment 30 GM TUBE ONE (13:02)
--- NOTE | 2017-08-10 13:17 | PCM.SURG1 ---
Surgeon's Initial Post Op Note - Surgeon's Notes Surgeon: Dr. Caldwell DPM Information [employer] Intern: Dr. José Antonio Quiñonez DPM PGY-1 Type of Anesthesia: IV Sedation, Local Anesthesia Administered By: Dr. Didier COLLADO Pre-Operative Diagnosis: Nonhealing left eschar ulcerations to LE Operative Findings: see dictations. injectables: 18cc of 2% lidocaine plain; materials: none Post-Operative Diagnosis: same Operation Performed: Irrigation and debridement of left nonhealing eschar ulcerations with Versajet Specimen/Specimens Removed: soft tissue Estimated Blood Loss: EBL {In ML}: 2 Blood Products Given: N/A Drains Used: No Drains Post-Op Condition: Good Date of Surgery/Procedure: 08/10/17 Time of Surgery/Procedure: 12:00
[2017-08-10] MEDS ORDERED: Oxycodone/Acetaminophen 5/325 mg Tab PO PRN (13:23)
[2017-08-10] MEDS ORDERED: Lidocaine 2% Inj (20ml) ONE (13:34)
[2017-08-10] MEDS: Oxycodone/Acetaminophen 5/325 mg Tab PO PRN (15:09)
--- NOTE | 2017-08-10 15:10 | CP.PCM.CON ---
History of Present Illness - History of Present Illness History of Present Illness: Initial Nephrology Consultation: Assessment: stable Altered mental status, Rt heel ulcer s/p debridement post-op urine retention, hx of prostate CA Hypertensive Chronic Kidney Disease (I12.9) ESRD on HD via permacath (TTS) Anemia (D64.9), HTN (I12.9) HIV on HAART, PVD s/p angioplasty Plan plan for HD tomorrow. no acute need today. nephrovite 1 tab/day aransep 80 mcg weekly for anemia on 08/11/17. not on VDRA as PTH at goal. since Ca on high side, d/c Vit D for now phos level 4.7. continue with binders Hypertension control with meds as ordered. Patient on RAAS edyta as losartan ID, podiatry following started flomax. asked RN to repeat bladder scan in few hours, if still in retention then straight cath once Dose meds/antibiotics for ESRD status. Avoid fleets enema/magnesium based laxatives. Avoid nephrotoxins/NSAIDs/ iodinated contrast (unless needed emergently) Further work up/management as per primary team Thanks for allowing me to participate in care of your patient. Will follow patient with you. Please call if any Qs. d/w sister Dr Yandel Arechiga Office: [phone] Chief Complaint; heel pain reason for consult: ESRD, HTN HPI: Pt is a 72 y/o M with hx of HIV on HAART, PVD s/p angioplasty, hypertension (10-15 years), ESRD on HD (via permacath) TTS @ [facility], left foot toe amputations, prostate CA initially admitted with AMS which improved spontaneosuly, seen by IR and underwent angioplast RLE and went to OR today for Rt heel debridement. renal consult for ESRD, HTN management Denies chest pain, palpitation, leg swelling. reports breathing as shallow c/o difficulty urination after surgery today ROS: Cardiovascular: No chest pain. Pulmonary: no shortness of breath no cough. Gastrointestinal: no abdominal pain No nausea. had vomiting. Denies change in bowel habits. All other negative Physical Examination: General Appearance: uncomfortable, in no acute respiratory distress, co- operative . Vitals reviewed and noted as below Head; Atraumatic, normocephalic ENT: no ulcers no thrush. Tongue is midline. Oropharynx: no rash or ulcers. EYES: Pupils are equal, round and reactive to light accommodation. Eye muscles and extraocular movement intact. Sclera is anicteric. Neck; supple no lymphadenopathy, no thyromegaly or bruit Lungs: Normal respiratory rate/effort. Breath sounds bilateral clear Heart: Normal rate. s1s2 normal. No rub or gallop. Extremities: trace edema. No varicose veins. Neurological: Patient is alert, awake and oriented to person, place and time. No focal deficit. Strength bilateral appropriate and equal Skin: Warm and dry. Normal turgor. No rash. Palpitation: Normal elasticity for age Abdomen: Abdomen is soft. Bowel sounds +. There is mild lower abdominal tenderness, no guarding/rigidity no organomegaly Psych: normal insight and normal affect/mood MSK: Rt heel joint tenderness. Digits and nails normal, left foot toe amputations in past. Rt foot in dressing. : kidney or bladder not palpable. Access: permacath and maturing left AVF Labs/imaging/EKG reviewed. Past medical history, past surgical history, family history, social history, allergy reviewed and noted as below Family hx: sister was on dialysis. Rest non-contributory Past Patient History - Infectious Disease Hx of Infectious Diseases: None - Tetanus Immunizations Tetanus Immunization: Up to Date - Past Medical History & Family History Past Medical History?: Yes Past Family History: Reviewed and not pertinent - Past Social History Smoking Status: Never Smoked Alcohol: None Drugs: Denies Home Situation {Lives}: Group Home - CARDIAC Hx Pacemaker: No - PULMONARY Hx Chronic Obstructive Pulmonary Disease (COPD): Yes - NEUROLOGICAL Hx Vertigo: Yes - HEENT Hx HEENT Problems: No - RENAL Hx Chronic Kidney Disease: Yes Hx Dialysis: Yes Type of Dialysis Access: HD Date of Last Dialysis Treatment: 08/07/17 Hx Renal Failure: Yes - ENDOCRINE/METABOLIC Hx Diabetes Mellitus Type 1: No Hx Diabetes Mellitus Type 2: No - HEMATOLOGICAL/ONCOLOGICAL Hx Blood Transfusions: No - INTEGUMENTARY Hx Dermatological Problems: Yes Hx Cellulitis: Yes Other/Comment: dry gangrene and osteomyelitis L foot - MUSCULOSKELETAL/RHEUMATOLOGICAL Hx Musculoskeletal Disorders: Yes - GASTROINTESTINAL Hx Clostridium Difficile: Yes Hx Colitis: Yes Hx Gastroesophageal Reflux: Yes - GENITOURINARY/GYNECOLOGICAL Hx Genitourinary Disorders: Yes Hx Prostate Cancer: Yes - PSYCHIATRIC Hx Substance Use: No - SURGICAL HISTORY Hx Surgeries: Yes - ANESTHESIA Hx Anesthesia Reactions: No Hx Malignant Hyperthermia: No Meds Allergies/Adverse Reactions: Allergies Allergy/AdvReac Type Severity Reaction Status Date / Time banana Allergy SWELLING Verified 08/08/17 04:43 shrimp Allergy SWELLING Verified 08/08/17 04:43 - Medications Medications: Current Medications Abacavir Sulfate (Ziagen) 300 mg PO BID [facility] Last Admin: 08/10/17 09:16 Dose: 300 mg Acetaminophen (Tylenol 325mg Tab) 650 mg PO Q4H PRN PRN Reason: Fever >100.4 F Last Admin: 08/10/17 06:23 Dose: 650 mg Acetaminophen (Tylenol 325mg Tab) 650 mg PO Q4H PRN PRN Reason: Pain, Mild (1-3) Albuterol/Ipratropium (Duoneb 3 Mg/0.5 Mg (3 Ml) Ud) 3 ml IH Q2H PRN PRN Reason: Shortness of Breath Allopurinol (Zyloprim) 300 mg PO DAILY [facility] Last Admin: 08/10/17 09:16 Dose: 300 mg Amlodipine Besylate (Norvasc) 10 mg PO DAILY [facility] Last Admin: 08/10/17 09:16 Dose: 10 mg Enoxaparin Sodium (Lovenox) 40 mg SC DAILY [facility] PRN Reason: Protocol Last Admin: 08/09/17 10:25 Dose: Not Given Ferrous Gluconate (Fergon) 324 mg PO TID [facility] Last Admin: 08/10/17 09:16 Dose: 324 mg Hydralazine HCl (Apresoline) 25 mg PO Q4 PRN PRN Reason: Systolic Blood Pressure > 180 Vancomycin HCl (Vancomycin 1gm) 1 gm in 250 mls @ 167 mls/hr IVPB TTS@1400 [facility] Last Admin: 08/09/17 14:36 Dose: Not Given Cefepime HCl (Maxipime 1gm) 1 gm in 100 mls @ 100 mls/hr IVPB Q24H [facility] PRN Reason: Protocol Stop: 08/18/17 19:46 Last Admin: 08/09/17 22:03 Dose: 100 mls/hr Lamivudine (Epivir) 150 mg PO DAILY [facility] Last Admin: 08/10/17 09:16 Dose: 150 mg Losartan Potassium (Cozaar) 100 mg PO DAILY [facility] Last Admin: 08/10/17 09:16 Dose: 100 mg Meclizine HCl (Antivert) 25 mg PO Q8H PRN PRN Reason: Dizziness Metoprolol Tartrate (Lopressor) 100 mg PO Q12 [facility] Last Admin: 08/10/17 09:17 Dose: 100 mg Dolutegravir Sodium [Tivicay] 50 Mg ( Home Med) 50 mg PO DAILY [facility] Last Admin: 08/10/17 09:18 Dose: Not Given Ondansetron HCl (Zofran Inj) 4 mg IVP Q4H PRN PRN Reason: Nausea/Vomiting Ondansetron HCl (Zofran Inj) 4 mg IVP ONCE PRN PRN Reason: Nausea/Vomiting Oxycodone/Acetaminophen (Percocet 5/325 Mg Tab) 1 tab PO Q4H PRN PRN Reason: Pain, moderate (4-7) Stop: 08/13/17 13:24 Oxycodone/Acetaminophen (Percocet 5/325 Mg Tab) 2 tab PO Q4H PRN PRN Reason: Pain, severe (8-10) Stop: 08/13/17 13:24 Pantoprazole Sodium (Protonix Ec Tab) 40 mg PO 0600 [facility] Last Admin: 08/10/17 05:34 Dose: 40 mg Sevelamer HCl (Renagel) 1,600 mg PO TID [facility] Last Admin: 08/10/17 09:16 Dose: 1,600 mg Tamsulosin HCl (Flomax) 0.4 mg PO DAILY [facility] Vitamin B Complex/Vit C/Folic Acid (Nephro-Christel) 1 tab PO DAILY [facility] Last Admin: 08/10/17 09:16 Dose: 1 tab Results - Vital Signs Recent Vital Signs: Last Vital Signs Temp 98.1 F 08/10/17 14:15 Pulse 72 08/10/17 14:15 Resp 16 08/10/17 14:15 BP 156/64 H 08/10/17 14:15 Pulse Ox 96 08/10/17 14:15 - Labs Result Diagrams: 08/10/17 06:20 08/10/17 06:20 Labs: Laboratory Results - last 24 hr 08/10/17 08/10/17 06:20 06:20 WBC 10.7 RBC 3.26 L Hgb 9.8 L Hct 31.3 L MCV 96.0 MCH 30.1 MCHC 31.3 RDW 17.0 H Plt Count 297 MPV 10.8 Sodium 140 Potassium 3.6 Chloride 98 Carbon Dioxide 30 Anion Gap 16 BUN 29 H Creatinine 4.3 H Est GFR ( Amer) 16 Est GFR (Non-Af Amer) 14 Random Glucose 78 Calcium 9.7 Total Bilirubin 0.6 AST 47 ALT 21 Alkaline Phosphatase 79 Total Protein 7.6 Albumin 3.1 Globulin 4.5 Albumin/Globulin Ratio 0.7 L
--- NOTE | 2017-08-10 15:39 | MRI ---
PROCEDURE: MRI of the bilateral feet without contrast HISTORY: L toe amputations and R foot ulcer, r/o osteo COMPARISON: Comparison is made with the previous MRI of the left foot dated 07/10/2017 TECHNIQUE: Axial coronal and sagittal MRI images of both feet were obtained without IV contrast administration. FINDINGS: MRI of the left foot: There is cortical erosion associated with bone marrow edema at the distal head of the 1st metatarsal bone suspicious for osteomyelitis. The patient is status post amputation of the 1st and 2nd toes. There are severe arthritic changes at the left ankle left tarsal and tarsal metatarsal joints associated with multiple subcortical cystic formation and small joint effusions. Findings likely represent Charcot/neuropathic arthritis. There is distortion of the osseous structures and the joints at the left tarsal and tarsal metatarsal joints. There is a diffuse edema seen in the soft tissue of the left foot associated with diffuse increase T2 signal of the muscles suggestive of myositis. There is no evidence of discrete fluid collection. Small to moderate amount of fluid seen surrounding the flexor tendon and the peroneal tendons at the left ankle and proximal left foot consistent with tendinopathy. MRI of the right foot: There is no evidence of active osteomyelitis. There is a severe Charcot neuropathic arthritis noted at the right ankle and proximal right foot associated with the subcortical cystic formation and small joint effusion at the right ankle. There is [id number] diffuse soft tissue edema. No evidence of discrete fluid collection. There is moderate diffuse increased signal in the right foot muscles suggestive of myositis. There is a small to moderate amount of fluid adjacent to the flexor and peroneal tendons consistent with tendinopathy. IMPRESSION: Findings suspicious for osteomyelitis at the head of the left 1st metatarsal bone. Sever Charcot neuropathic arthritis bilaterally.
[2017-08-10] MEDS: Cefepime 1gm in NS 100ml 1 GM/100 ML BAG IVPB SCH (21:14)
--- NOTE | 2017-08-10 23:51 | PN ---
DATE: 08/10/2017 SUBJECTIVE: The patient is in bed in no acute distress, was seen early this morning. He is awake and alert. He knows where he is. He is knows what year it is and he knows who he is. PHYSICAL EXAMINATION: VITAL SIGNS: On exam, temperature is 97, blood pressure of 140/80, respiratory rate of 16. HEENT: Unremarkable. NECK: Supple. LUNGS: Have decreased breath sounds. HEART: Normal S1 and S2. ABDOMEN: Soft. LABORATORY DATA: Reveals the patient's white count of 10, 000, hemoglobin of 9. Chemistries revealed BUN of 29, creatinine of 4.3. Blood cultures, no growth. Negative blood cultures. The patient is scheduled for debridement of the heel today. ASSESSMENT AND PLAN: A 72-year-old male, care home patient with hypertension, history of human immunodeficiency virus, viral load is undetectable in 04/2017 with a good T cells, history of prostate cancer, gout, left first toe osteomyelitis. The patient is on dolutegravir (Tivicay) and lamivudine, abacavir and here with systemic inflammatory response syndrome with change of mental status. For a heel debridement today, the patient received a dose of vancomycin and also on cefepime. We will check on the OR cultures. Cesar Flowers MD
[2017-08-11] MEDS ORDERED: Darbepoetin Alfa 40 mcg/ml Inj IVP ONE (06:00)
[2017-08-11 08:00] LABS: EOS # 0.4 (0.0-0.7); EOS % 3.7 % (1.5-5.0); GRAN # 4.96 (1.4-6.5); HEMATOCRIT 31.4 % (42.0-52.0); LYMPH # 3.2 (1.2-3.4); LYMPH % 33.8 % (22.0-35.0); MEAN CELL VOLUME 95.7 fl (80.0-105.0); MEAN CORPUSCULAR HEMOGLOBIN 30.2 pg (25.0-35.0); MEAN CORPUSCULAR HGB CONC 31.5 g/dl (31.0-37.0); MEAN PLATELET VOLUME 11.3 fl (7.0-11.0); MONO # 0.9 (0.1-0.6); MONO % 9.5 % (1.0-6.0); RED CELL DISTRIBUTION WIDTH 16.9 % (11.5-14.5); WHITE BLOOD COUNT 9.4 10^3/ul (4.5-11.0)
[2017-08-11 08:22] LABS: ALB/GLOB RATIO 0.7 (1.1-1.8); BILIRUBIN,TOTAL 0.4 mg/dL (0.2-1.3); CALCIUM 9.7 mg/dL (8.4-10.5); PHOSPHOROUS 3.9 mg/dL (2.5-4.5); POTASSIUM 3.5 mmol/L (3.6-5.0); TOTAL PROTEIN 7.3 g/dL (5.8-8.3)
--- NOTE | 2017-08-11 09:28 | CP.PCM.PN ---
Subjective - Date & Time of Evaluation Date of Evaluation: 08/11/17 Time of Evaluation: 09:26 - Subjective Subjective: PGY-2 Progress note Patient seen and examined at bedside in dialysis. No acute distress, no acute events overnight. Patient states that he is cold. He denies any other complaints including chest pain, sob, abd pain, n/v. Objective - Vital Signs/Intake and Output Vital Signs (last 24 hours): Temp Pulse Resp BP Pulse Ox 97.9 F 87 20 144/70 98 08/10/17 16:00 08/10/17 16:00 08/10/17 16:00 08/10/17 22:57 08/10/17 16:00 - Medications Medications: Current Medications Abacavir Sulfate (Ziagen) 300 mg PO BID [facility] Last Admin: 08/10/17 17:42 Dose: 300 mg Acetaminophen (Tylenol 325mg Tab) 650 mg PO Q4H PRN PRN Reason: Fever >100.4 F Last Admin: 08/10/17 06:23 Dose: 650 mg Acetaminophen (Tylenol 325mg Tab) 650 mg PO Q4H PRN PRN Reason: Pain, Mild (1-3) Albuterol/Ipratropium (Duoneb 3 Mg/0.5 Mg (3 Ml) Ud) 3 ml IH Q2H PRN PRN Reason: Shortness of Breath Allopurinol (Zyloprim) 300 mg PO DAILY [facility] Last Admin: 08/10/17 09:16 Dose: 300 mg Amlodipine Besylate (Norvasc) 10 mg PO DAILY [facility] Last Admin: 08/10/17 09:16 Dose: 10 mg Bacitracin (Bacitracin) 1 gm TOP DAILY [facility] Enoxaparin Sodium (Lovenox) 40 mg SC DAILY [facility] PRN Reason: Protocol Last Admin: 08/09/17 10:25 Dose: Not Given Ferrous Gluconate (Fergon) 324 mg PO TID [facility] Last Admin: 08/10/17 17:42 Dose: 324 mg Hydralazine HCl (Apresoline) 25 mg PO Q4 PRN PRN Reason: Systolic Blood Pressure > 180 Vancomycin HCl (Vancomycin 1gm) 1 gm in 250 mls @ 167 mls/hr IVPB TTS@1400 [facility] Last Admin: 08/09/17 14:36 Dose: Not Given Cefepime HCl (Maxipime 1gm) 1 gm in 100 mls @ 100 mls/hr IVPB Q24H [facility] PRN Reason: Protocol Stop: 08/18/17 19:46 Last Admin: 08/10/17 21:14 Dose: 100 mls/hr Lamivudine (Epivir) 150 mg PO DAILY [facility] Last Admin: 08/10/17 09:16 Dose: 150 mg Losartan Potassium (Cozaar) 100 mg PO DAILY [facility] Last Admin: 08/10/17 09:16 Dose: 100 mg Meclizine HCl (Antivert) 25 mg PO Q8H PRN PRN Reason: Dizziness Metoprolol Tartrate (Lopressor) 100 mg PO Q12 [facility] Last Admin: 08/10/17 22:57 Dose: 100 mg Dolutegravir Sodium [Tivicay] 50 Mg ( Home Med) 50 mg PO DAILY [facility] Last Admin: 08/10/17 09:18 Dose: Not Given Ondansetron HCl (Zofran Inj) 4 mg IVP Q4H PRN PRN Reason: Nausea/Vomiting Ondansetron HCl (Zofran Inj) 4 mg IVP ONCE PRN PRN Reason: Nausea/Vomiting Oxycodone/Acetaminophen (Percocet 5/325 Mg Tab) 1 tab PO Q4H PRN PRN Reason: Pain, moderate (4-7) Stop: 08/13/17 13:24 Last Admin: 08/10/17 15:09 Dose: 1 tab Oxycodone/Acetaminophen (Percocet 5/325 Mg Tab) 2 tab PO Q4H PRN PRN Reason: Pain, severe (8-10) Stop: 08/13/17 13:24 Pantoprazole Sodium (Protonix Ec Tab) 40 mg PO 0600 [facility] Last Admin: 08/10/17 05:34 Dose: 40 mg Sevelamer HCl (Renagel) 1,600 mg PO TID [facility] Last Admin: 08/10/17 17:42 Dose: 1,600 mg Tamsulosin HCl (Flomax) 0.4 mg PO DAILY [facility] Last Admin: 08/10/17 22:43 Dose: 0.4 mg Vitamin B Complex/Vit C/Folic Acid (Nephro-Christel) 1 tab PO DAILY [facility] Last Admin: 08/10/17 09:16 Dose: 1 tab - Labs Labs: 08/11/17 07:30 08/11/17 07:30 PT 14.6 SECONDS (9.4-12.5) H 08/09/17 06:30 INR 1.32 (0.93-1.08) H 08/09/17 06:30 APTT 40.8 Seconds (25.1-36.5) H 08/07/17 23:40 - Constitutional Appears: No Acute Distress - Head Exam Head Exam: ATRAUMATIC, NORMAL INSPECTION, NORMOCEPHALIC - Eye Exam Eye Exam: EOMI, Normal appearance - ENT Exam ENT Exam: Mucous Membranes Moist - Respiratory Exam Respiratory Exam: Clear to Ausculation Bilateral, NORMAL BREATHING PATTERN. absent: Rhonchi, Wheezes, Respiratory Distress, Stridor - Cardiovascular Exam Cardiovascular Exam: REGULAR RHYTHM, +S1, +S2. absent: Tachycardia, Diastolic murmur, Murmur - GI/Abdominal Exam GI & Abdominal Exam: Soft, Normal Bowel Sounds. absent: Distended, Firm, Guarding, Tenderness - Extremities Exam Additional comments: left foot dressing clean, dry and intact - Neurological Exam Neurological Exam: Alert, Awake, Oriented x3 - Skin Skin Exam: Dry, Intact, Normal Color, Warm Assessment and Plan - Assessment and Plan (Free Text) Assessment: 72 year old male with past medical history of ESRD on HD (Sunday// Sunday), PAD, osteomyelitis s/p amputation of L toes 1-3 (only distal portion of 3rd toe), severe PAD s/p angioplasty of L tibial artery, HIV (last CD4 count here at [facility] 04/2017 420), Prostate cancer s/p prostatectomy, HTN, HLD, GERD and gout who presented to the ED from [facility] with AMS and confusion found to have osteomylitis of the foot. Patient has been alert and responsive since admission, so transient AMS was likely delirium 2/2 post-dialysis electrolyte/ homeostatic changes. Patient also has foot ulcers, for which podiatry is doing surgical debridement today. PAD will be managed by IR. HD will be continued and renal is consulted. Pt's other medical issues will be managed accordingly. Plan: 1. AMS, now resolved - likely delirium 2/2 post-dialysis electrolyte/homeostatic changes - CT Head positive for nonspecific white matter changes, negative for hemorrhage or masses - Blood cultures negative - Neurochecks QShift - Pt is afebrile, with no leukocytosis - low ammonia level - medical office worker referral - PT/OT eval 2. R foot ulcer 2/2 severe PAD s/p angioplasty - cont Lovenox - LE arterial duplex ordered; showed moderately severe PAD distal at level of calf and distally - IR consulted, pt underwent femoral angio yesterday with successful R popliteal and posterior tibial a. angioplasties - Podiatry consulted, recs appreciated 3. osteomyelitis of L foot s/p amputation - MRI for bilateral feet showed suspicious ofr osteomyelitis of left 1st metatarsal bone - r/o current infection - cont cefepime day 3 - cont Vancomycin post-dialysis on TTS schedule - CRP and ESR elevated - Tylenol PRN fevers - Dilaudid PRN - Zofran PRN - podiatry consulted, recs appreciated - ID consulted, recs appreciated 4. ESRD on HD - HD schedule Sun//Sat - Dialysis today - ESRD is likely cause of anemia - cont vit D, Fergon, Renagel, Nephro-Christel - Renal consulted, recs appreciated 5. Hx HIV - continue home Ziagen, Lamivudine, Tivicay - ID consulted 6. Hx Prostate CA - monitor urinary output 7. Hx HTN - continue Norvasc, Losartan, Lopressor - Hydralazine PRN - will cont monitor 8. Hx HLD - lipid panel shows normal level LDL 9. Hx COPD - no wheezing noted on exam - Duoneb PRN 10. Hx GERD - Protonix 11. Hx Gout - cont allopurinol - avoid triggers 12. Hx vertigo - Meclizine PRN 13. DVT/GI PPX - Lovenox/PTX Patient was seen, examined and discussed with attending, Dr. Adams
[2017-08-11] MEDS: DOLUTEGRAVIR SODIUM 50 MG PO SCH (10:39)
[2017-08-11] MEDS: Bacitracin Ointment 30 GM TUBE TOP SCH (10:39)
[2017-08-11] MEDS: Pantoprazole 40 mg EC Tab PO SCH (11:26)
[2017-08-11] MEDS: Multivitamin Vitamin B Complex (Nephro-Vite) Tab PO SCH (11:27)
--- NOTE | 2017-08-11 12:53 | CP.PCM.PN ---
<Daniel Friend - Last Filed: 08/11/17 12:47> Subjective - Date & Time of Evaluation Date of Evaluation: 08/11/17 Time of Evaluation: 12:47 - Subjective Subjective: Podiatry Progress Note - Dr. Dunn 72 year old male patient seen and evaluated at bedside POD#1 irrigation and debridement of right nonhealing eschar ulcerations. Patient hemodynamically stable and NAD. Patient back from hemodialysis. Denies any acute events overnight. Reports moderate pain to right foot, well-controlled. Multipodus boot on RLE. Dressing to left foot absent. Denies N/V/F/D/C/SOB/calf pain. Objective - Vital Signs/Intake and Output Vital Signs (last 24 hours): Temp Pulse Resp BP Pulse Ox 98.4 F 71 18 142/76 98 08/11/17 11:32 08/11/17 11:32 08/11/17 11:32 08/11/17 11:32 08/11/17 11:32 - Medications Medications: Current Medications Abacavir Sulfate (Ziagen) 300 mg PO BID [facility] Last Admin: 08/11/17 10:40 Dose: Not Given Acetaminophen (Tylenol 325mg Tab) 650 mg PO Q4H PRN PRN Reason: Fever >100.4 F Last Admin: 08/10/17 06:23 Dose: 650 mg Acetaminophen (Tylenol 325mg Tab) 650 mg PO Q4H PRN PRN Reason: Pain, Mild (1-3) Albuterol/Ipratropium (Duoneb 3 Mg/0.5 Mg (3 Ml) Ud) 3 ml IH Q2H PRN PRN Reason: Shortness of Breath Allopurinol (Zyloprim) 300 mg PO DAILY [facility] Last Admin: 08/11/17 11:26 Dose: 300 mg Amlodipine Besylate (Norvasc) 10 mg PO DAILY [facility] Last Admin: 08/11/17 11:25 Dose: 10 mg Bacitracin (Bacitracin) 1 gm TOP DAILY [facility] Last Admin: 08/11/17 10:39 Dose: Not Given Enoxaparin Sodium (Lovenox) 40 mg SC DAILY [facility] PRN Reason: Protocol Last Admin: 08/09/17 10:25 Dose: Not Given Ferrous Gluconate (Fergon) 324 mg PO TID [facility] Last Admin: 08/11/17 10:39 Dose: Not Given Hydralazine HCl (Apresoline) 25 mg PO Q4 PRN PRN Reason: Systolic Blood Pressure > 180 Vancomycin HCl (Vancomycin 1gm) 1 gm in 250 mls @ 167 mls/hr IVPB TTS@1400 [facility] Last Admin: 08/09/17 14:36 Dose: Not Given Cefepime HCl (Maxipime 1gm) 1 gm in 100 mls @ 100 mls/hr IVPB Q24H DWAIN PRN Reason: Protocol Stop: 08/18/17 19:46 Last Admin: 08/10/17 21:14 Dose: 100 mls/hr Lamivudine (Epivir) 150 mg PO DAILY [facility] Last Admin: 08/11/17 11:26 Dose: 150 mg Losartan Potassium (Cozaar) 100 mg PO DAILY [facility] Last Admin: 08/11/17 11:26 Dose: 100 mg Meclizine HCl (Antivert) 25 mg PO Q8H PRN PRN Reason: Dizziness Metoprolol Tartrate (Lopressor) 100 mg PO Q12 [facility] Last Admin: 08/11/17 10:39 Dose: Not Given Dolutegravir Sodium [Tivicay] 50 Mg ( Home Med) 50 mg PO DAILY [facility] Last Admin: 08/11/17 10:39 Dose: Not Given Ondansetron HCl (Zofran Inj) 4 mg IVP Q4H PRN PRN Reason: Nausea/Vomiting Ondansetron HCl (Zofran Inj) 4 mg IVP ONCE PRN PRN Reason: Nausea/Vomiting Oxycodone/Acetaminophen (Percocet 5/325 Mg Tab) 1 tab PO Q4H PRN PRN Reason: Pain, moderate (4-7) Stop: 08/13/17 13:24 Last Admin: 08/10/17 15:09 Dose: 1 tab Oxycodone/Acetaminophen (Percocet 5/325 Mg Tab) 2 tab PO Q4H PRN PRN Reason: Pain, severe (8-10) Stop: 08/13/17 13:24 Pantoprazole Sodium (Protonix Ec Tab) 40 mg PO 0600 [facility] Last Admin: 08/11/17 11:26 Dose: 40 mg Sevelamer HCl (Renagel) 1,600 mg PO TID [facility] Last Admin: 08/11/17 10:39 Dose: Not Given Tamsulosin HCl (Flomax) 0.4 mg PO DAILY [facility] Last Admin: 08/11/17 11:26 Dose: 0.4 mg Vitamin B Complex/Vit C/Folic Acid (Nephro-Christel) 1 tab PO DAILY [facility] Last Admin: 08/11/17 11:27 Dose: 1 tab - Labs Labs: 08/11/17 07:30 08/11/17 07:30 PT 14.6 SECONDS (9.4-12.5) H 08/09/17 06:30 INR 1.32 (0.93-1.08) H 08/09/17 06:30 APTT 40.8 Seconds (25.1-36.5) H 08/07/17 23:40 - Constitutional Appears: Well, Non-toxic, No Acute Distress - Extremities Exam Additional comments: Dressing to RLE appears clean/dry/intact with no strikethrough noted. Dressing to LLE absent. VASC: DP and PT nonpalpable. Temperature gradient cool to cool. CFT delayed. No edema noted to bilateral LE. DERM: Right: Ulceration noted to right medial malleolus measuring 3cm x 2cm x 0.2cm with mixed fibrogranular base and erythematous rim. No malodor noted. Mild serosanguinous drainage noted. No purulent drainage noted. No tracking noted. No probe to bone. No sign of acute infection is noted at this time. Second ulceration noted to lateral aspect of right heel measuring 2cm x 0.5cm x 0.2cm with mixed fibrogranular base with hyperpigmented margins. Mild serosanguinous drainage noted. No malodor noted. No purulence noted. No tracking noted. No probe to bone. Mild erythema to margins <0.5cm. No sign of acute infection is noted at this time. LEFT: 3rd digit partial amputation surgical incision appears well coapted with sutures intact and no wound dehiscence noted. Dried/crusted blood noted periwound. Discoloration noted to the distal stump of the amputation site. NEURO: gross and protective sensation diminished ORTHO: RIGHT medial aspect of the ankle and medial aspect of the rearfoot, posterior heel, and midfoot are moderately painful with palpation; gross midfoot collapse is appreciated secondary to Charcot. LEFT 1st and 2nd digit amputation noted, with recent partial 3rd digit amputation. - Neurological Exam Neurological Exam: Alert, Awake, Oriented x3 - Psychiatric Exam Psychiatric exam: Normal Affect, Normal Mood Assessment and Plan - Assessment and Plan (Free Text) Assessment: 72 year old male patient POD#1 irrigation and debridement of right nonhealing eschar ulcerations (DOS 08/10/17) and 3 weeks s/p left 3rd digit partial amputation, stable Plan: Patient seen and evaluated Discussed with attending, Dr. Dunn Patient febrile this morning T100.8, afebrile currently MARLENI reveal severely abnormal right MARLENI at rest; right popliteal, trifurcation, and/or tibial diease; normal left MARLENI and waveforms at all levels Left foot cleansed with saline, betadine applied to left 3rd digit and dressed with DSD Right foot cleansed with saline and dressed with DSD Continue multipodus boots at all times while in bed. Pain mgmt per medicine Per ID, continue vancomycin and cefepime Podiatry will continue to follow patient while in house <Jerrod Dunn - Last Filed: 08/15/17 08:30> Objective - Vital Signs/Intake and Output Vital Signs (last 24 hours): Temp Pulse Resp BP Pulse Ox 97.6 F 83 17 153/76 H 89 L 08/12/17 07:38 08/12/17 07:38 08/12/17 07:38 08/12/17 10:50 08/12/17 07:38 - Labs Labs: 08/12/17 07:00 08/12/17 07:00 PT 14.6 SECONDS (9.4-12.5) H 08/09/17 06:30 INR 1.32 (0.93-1.08) H 08/09/17 06:30 APTT 40.8 Seconds (25.1-36.5) H 08/07/17 23:40 Attending/Attestation - Attestation I have personally seen and examined this patient.: Yes I have fully participated in the care of the patient.: Yes I have reviewed all pertinent clinical information, including history, physical exam and plan: Yes
[2017-08-11] MEDS ORDERED: Vancomycin 1gm in NS 250ml 1 GM/250 ML BAG IVPB STA (14:04)
[2017-08-11] MEDS: Vancomycin 1gm in NS 250ml 1 GM/250 ML BAG IVPB SCH (14:33)
--- NOTE | 2017-08-11 15:09 | RAD ---
HISTORY: Fever COMPARISON: 08/08/2017 FINDINGS: LUNGS: No active pulmonary disease. PLEURA: No significant pleural effusion identified, no pneumothorax apparent. CARDIOVASCULAR: No radiographic findings to suggest acute or significant cardiovascular disease. Venous access catheter in stable, satisfactory position. OSSEOUS STRUCTURES: No significant abnormalities. VISUALIZED UPPER ABDOMEN: Normal. OTHER FINDINGS: None. IMPRESSION: No active disease. No significant interval change compared to the prior examination(s).
--- NOTE | 2017-08-11 18:29 | PN ---
DATE: 08/11/2017 SUBJECTIVE: The patient is in bed, in no acute distress, nontoxic. PHYSICAL EXAMINATION VITAL SIGNS: The patient has a temperature of 100.8, blood pressure 150/80, respiratory rate 20 and heart rate of 87. HEENT: Unremarkable. NECK: Supple. LUNGS: Decreased breath sounds. HEART: Normal S1 and S2. ABDOMEN: Soft and nontender. LABORATORY DATA: Reveals a white count of 9.4, hemoglobin of 9 and platelets of 314. Chemistries are noted. BUN of 32, creatinine of 4.8. Microbiology reveals the blood cultures are negative. ASSESSMENT AND PLAN: This is a 72-year-old male, usp patient, with hypertension, human immunodeficiency virus positive, viral load undetectable, T cells were good with a history of prostate cancer, gout, left first toe osteomyelitis, on dolutegravir which is Tivicay and lamivudine/abacavir, with systemic inflammatory response syndrome, change in mental status, actually doing well, now has a new fever, on intermittent vancomycin and cefepime. We will discontinue the cefepime and repeat pancultures, blood cultures, urine cultures, and sputum cultures. We will order a procalcitonin and order a chest x-ray, dose of vancomycin and start the patient on meropenem and discontinue the Maxipime. We will make further recommendations upon availability of initial results. Cesar Flowers MD
--- NOTE | 2017-08-11 23:44 | CP.PCM.PN ---
Subjective - Date & Time of Evaluation Date of Evaluation: 08/11/17 Time of Evaluation: 17:00 - Subjective Subjective: renal follow up note no events overnight General Appearance: in no acute respiratory distress, co-operative . Head; Atraumatic, normocephalic ENT: no ulcers no thrush. Tongue is midline. Oropharynx: no rash or ulcers. EYES: Sclera is anicteric. Neck; supple no lymphadenopathy, no thyromegaly or bruit Lungs: Normal respiratory rate/effort. Breath sounds bilateral clear Heart: Normal rate. s1s2 normal. No rub or gallop. Extremities: trace edema. No varicose veins. Neurological: Patient is alert, awake and oriented to person, place and time. No focal deficit. Strength bilateral appropriate and equal Skin: Warm and dry. Normal turgor. No rash Abdomen: Abdomen is soft. Bowel sounds + Psych: normal insight MSK: Rt heel joint tenderness.. Access: permacath and maturing left AVF A&P: Altered mental status, Rt heel ulcer s/p debridement post-op urine retention, hx of prostate CA Hypertensive Chronic Kidney Disease (I12.9) ESRD on HD via permacath (TTS) Anemia (D64.9), HTN (I12.9) HIV on HAART, PVD s/p angioplasty Plan HD tts today per schedule dawit reviewed anemia aransep 80 mcg weekly for anemia on 08/11/17. continue with binders Hypertension control with meds ID, podiatry following on flomax for retention Objective - Vital Signs/Intake and Output Vital Signs (last 24 hours): Temp Pulse Resp BP Pulse Ox 98.4 F 71 18 129/86 98 08/11/17 11:32 08/11/17 11:32 08/11/17 11:32 08/11/17 22:34 08/11/17 11:32 Intake and Output: 08/11/17 08/12/17 18:59 06:59 Intake Total 300 Balance 300 - Medications Medications: Current Medications Abacavir Sulfate (Ziagen) 300 mg PO BID [facility] Last Admin: 08/11/17 17:35 Dose: 300 mg Acetaminophen (Tylenol 325mg Tab) 650 mg PO Q4H PRN PRN Reason: Fever >100.4 F Last Admin: 08/10/17 06:23 Dose: 650 mg Acetaminophen (Tylenol 325mg Tab) 650 mg PO Q4H PRN PRN Reason: Pain, Mild (1-3) Albuterol/Ipratropium (Duoneb 3 Mg/0.5 Mg (3 Ml) Ud) 3 ml IH Q2H PRN PRN Reason: Shortness of Breath Allopurinol (Zyloprim) 300 mg PO DAILY [facility] Last Admin: 08/11/17 11:26 Dose: 300 mg Amlodipine Besylate (Norvasc) 10 mg PO DAILY [facility] Last Admin: 08/11/17 11:25 Dose: 10 mg Bacitracin (Bacitracin) 1 gm TOP DAILY [facility] Last Admin: 08/11/17 10:39 Dose: Not Given Enoxaparin Sodium (Lovenox) 40 mg SC DAILY [facility] PRN Reason: Protocol Last Admin: 08/09/17 10:25 Dose: Not Given Ferrous Gluconate (Fergon) 324 mg PO TID [facility] Last Admin: 08/11/17 17:35 Dose: 324 mg Hydralazine HCl (Apresoline) 25 mg PO Q4 PRN PRN Reason: Systolic Blood Pressure > 180 Vancomycin HCl (Vancomycin 1gm) 1 gm in 250 mls @ 167 mls/hr IVPB TTS@1400 [facility] Last Admin: 08/11/17 14:33 Dose: 167 mls/hr Lamivudine (Epivir) 150 mg PO DAILY [facility] Last Admin: 08/11/17 11:26 Dose: 150 mg Losartan Potassium (Cozaar) 100 mg PO DAILY [facility] Last Admin: 08/11/17 11:26 Dose: 100 mg Meclizine HCl (Antivert) 25 mg PO Q8H PRN PRN Reason: Dizziness Metoprolol Tartrate (Lopressor) 100 mg PO Q12 [facility] Last Admin: 08/11/17 22:34 Dose: 100 mg Dolutegravir Sodium [Tivicay] 50 Mg ( Home Med) 50 mg PO DAILY [facility] Last Admin: 08/11/17 10:39 Dose: Not Given Ondansetron HCl (Zofran Inj) 4 mg IVP Q4H PRN PRN Reason: Nausea/Vomiting Ondansetron HCl (Zofran Inj) 4 mg IVP ONCE PRN PRN Reason: Nausea/Vomiting Oxycodone/Acetaminophen (Percocet 5/325 Mg Tab) 1 tab PO Q4H PRN PRN Reason: Pain, moderate (4-7) Stop: 08/13/17 13:24 Last Admin: 08/10/17 15:09 Dose: 1 tab Oxycodone/Acetaminophen (Percocet 5/325 Mg Tab) 2 tab PO Q4H PRN PRN Reason: Pain, severe (8-10) Stop: 08/13/17 13:24 Last Admin: 08/11/17 16:23 Dose: 2 tab Pantoprazole Sodium (Protonix Ec Tab) 40 mg PO 0600 [facility] Last Admin: 08/11/17 11:26 Dose: 40 mg Sevelamer HCl (Renagel) 1,600 mg PO TID [facility] Last Admin: 08/11/17 17:35 Dose: 1,600 mg Tamsulosin HCl (Flomax) 0.4 mg PO DAILY [facility] Last Admin: 08/11/17 11:26 Dose: 0.4 mg Vitamin B Complex/Vit C/Folic Acid (Nephro-Christel) 1 tab PO DAILY [facility] Last Admin: 08/11/17 11:27 Dose: 1 tab - Labs Labs: 08/11/17 07:30 08/11/17 07:30 PT 14.6 SECONDS (9.4-12.5) H 08/09/17 06:30 INR 1.32 (0.93-1.08) H 08/09/17 06:30 APTT 40.8 Seconds (25.1-36.5) H 08/07/17 23:40
[2017-08-12] MEDS: Pantoprazole 40 mg EC Tab PO SCH (05:24)
[2017-08-12 07:39] VITALS: BP 153/76; PULSE 83; RESP 17; TEMP 97.6; O2SAT 89
[2017-08-12 07:58] LABS: HEMATOCRIT 31.5 % (42.0-52.0); MEAN CORPUSCULAR HEMOGLOBIN 30.2 pg (25.0-35.0); MEAN CORPUSCULAR HGB CONC 31.4 g/dl (31.0-37.0); MEAN PLATELET VOLUME 10.6 fl (7.0-11.0); RED CELL DISTRIBUTION WIDTH 16.7 % (11.5-14.5)
[2017-08-12 08:21] LABS: ALB/GLOB RATIO 0.7 (1.1-1.8); BILIRUBIN,TOTAL 0.4 mg/dL (0.2-1.3); CALCIUM 10.3 mg/dL (8.4-10.5); POTASSIUM 3.6 mmol/L (3.6-5.0); TOTAL PROTEIN 7.7 g/dL (5.8-8.3)
[2017-08-12] MEDS: Multivitamin Vitamin B Complex (Nephro-Vite) Tab PO SCH (10:50)
[2017-08-12] MEDS: Bacitracin Ointment 30 GM TUBE TOP SCH (11:20)
[2017-08-12] MEDS: Enoxaparin 40 mg Syringe SC SCH (11:21)
[2017-08-12] MEDS: DOLUTEGRAVIR SODIUM 50 MG PO SCH (11:21)
--- NOTE | 2017-08-12 12:04 | CP.PCM.DIS ---
<Aide Read - Last Filed: 08/12/17 16:51> Provider - Provider Date of Admission: 08/10/17 11:08 Attending physician: Nehemias Sesay MD Primary care physician: Nehemias Sesay MD Time Spent in preparation of Discharge (in minutes): 35 Hospital Course - Lab Results Lab Results: Most Recent Lab Values WBC 9.0 10^3/ul (4.5-11.0) 08/12/17 07:00 RBC 3.28 10^6/uL (3.5-6.1) L 08/12/17 07:00 Hgb 9.9 g/dL (14.0-18.0) L 08/12/17 07:00 Hct 31.5 % (42.0-52.0) L 08/12/17 07:00 MCV 96.0 fl (80.0-105.0) 08/12/17 07:00 MCH 30.2 pg (25.0-35.0) 08/12/17 07:00 MCHC 31.4 g/dl (31.0-37.0) 08/12/17 07:00 RDW 16.7 % (11.5-14.5) H 08/12/17 07:00 Plt Count 298 10^3/uL (120.0-450.0) 08/12/17 07:00 MPV 10.6 fl (7.0-11.0) 08/12/17 07:00 Gran % 53.0 % (50.0-68.0) 08/11/17 07:30 Lymph % (Auto) 33.8 % (22.0-35.0) 08/11/17 07:30 [place] % (Auto) 9.5 % (1.0-6.0) H 08/11/17 07:30 Eos % (Auto) 3.7 % (1.5-5.0) 08/11/17 07:30 Baso % (Auto) 0.0 % (0.0-3.0) 08/11/17 07:30 Gran # 4.96 (1.4-6.5) 08/11/17 07:30 Lymph # 3.2 (1.2-3.4) 08/11/17 07:30 [place] # 0.9 (0.1-0.6) H 08/11/17 07:30 Eos # 0.4 (0.0-0.7) 08/11/17 07:30 Baso # 0.00 K/mm3 (0.0-2.0) 08/11/17 07:30 ESR 72 mm/hr (0.00-15.0) H 08/08/17 12:30 PT 14.6 SECONDS (9.4-12.5) H 08/09/17 06:30 INR 1.32 (0.93-1.08) H 08/09/17 06:30 APTT 40.8 Seconds (25.1-36.5) H 08/07/17 23:40 Sodium 136 mmol/L (132-148) 08/12/17 07:00 Potassium 3.6 mmol/L (3.6-5.0) 08/12/17 07:00 Chloride 100 mmol/L (98-107) 08/12/17 07:00 Carbon Dioxide 27 mmol/L (21-33) 08/12/17 07:00 Anion Gap 12 (10-20) 08/12/17 07:00 BUN 27 mg/dL (7-21) H 08/12/17 07:00 Creatinine 4.6 mg/dl (0.8-1.5) H 08/12/17 07:00 Est GFR ( Amer) 15 08/12/17 07:00 Est GFR (Non-Af Amer) 13 08/12/17 07:00 Random Glucose 101 mg/dL (70-110) 08/12/17 07:00 Hemoglobin A1c 4.8 % (4.2-6.5) 08/08/17 12:30 Calcium 10.3 mg/dL (8.4-10.5) 08/12/17 07:00 Phosphorus 3.9 mg/dL (2.5-4.5) 08/11/17 07:30 Magnesium 2.0 mg/dL (1.7-2.2) 08/11/17 07:30 Total Bilirubin 0.4 mg/dL (0.2-1.3) 08/12/17 07:00 AST 51 U/L (17-59) 08/12/17 07:00 ALT 21 U/L (7-56) 08/12/17 07:00 Alkaline Phosphatase 80 U/L (38-126) 08/12/17 07:00 Ammonia < 9 umol/L (9-33) L 08/08/17 00:10 Lactate Dehydrogenase 574 U/L (333-699) 08/07/17 23:40 Total Creatine Kinase 86 U/L (35-230) 08/07/17 23:40 Troponin I 0.04 ng/mL D 08/07/17 23:40 C-React Prot High Sens > 15.00 mg/L (1.00-3.00) H 08/08/17 12:30 Total Protein 7.7 g/dL (5.8-8.3) 08/12/17 07:00 Albumin 3.3 g/dL (3.0-4.8) 08/12/17 07:00 Globulin 4.4 gm/dL 08/12/17 07:00 Albumin/Globulin Ratio 0.7 (1.1-1.8) L 08/12/17 07:00 Triglycerides 122 mg/dL (35-160) 08/09/17 06:30 Cholesterol 118 mg/dL (130-200) L 08/09/17 06:30 LDL Cholesterol Direct 45 mg/dL (0-129) 08/09/17 06:30 HDL Cholesterol 27 mg/dL (29-60) L 08/09/17 06:30 Procalcitonin 1.56 NG/ML (0.19-0.49) H 08/11/17 14:20 Acetaminophen < 10.0 ug/ml (10.0-20.0) L 08/07/17 23:40 Alcohol, Quantitative < 10 mg/dL (0-10) 08/07/17 23:40 - Hospital Course Hospital Course: 72 year old male with past medical history of ESRD on HD (Sunday// Sunday), PAD, osteomyelitis s/p amputation of Left toes 1-3 (only distal portion of 3rd toe), severe PAD s/p angioplasty of L tibial artery, HIV [place] [facility] [place] Prostate cancer s/p prostatectomy, HTN, HLD, GERD and gout who presented to the ED from [facility] with AMS and confusion found to have osteomylitis of the foot. Patient became alert and responsive after admission, due to transient AMS was likely delirium due to post-dialysis electrolyte changes. CT Head positive for nonspecific white matter changes, negative for hemorrhage or masses. Multiple blood cultures were negative. Patient also has foot ulcers, for which podiatry performed surgical debridement. IR consulted for patient's PAD. Right extremity arterial duplex showed moderately severe PAD distal at level of calf and distally. Patient underwent femoral angio with successful Right popliteal and posterior tibial artery angioplasties. MRI for bilateral feet showed suspicious for osteomyelitis. ID was consulted for management of antibiotics. Patient has history of ESRD on HD. Dialysis was continued will inpatient, managed by nephrology. Patient's other medical issues were managed. Patient is afebrile, vitals and blood work is stable. Patient is medically stable and to be discharged to [facility] to complete antibiotics and for PT. Discharge Exam - Head Exam Head Exam: ATRAUMATIC, NORMAL INSPECTION, NORMOCEPHALIC - Eye Exam Eye Exam: EOMI, Normal appearance - ENT Exam ENT Exam: Mucous Membranes Moist - Respiratory Exam Respiratory Exam: Clear to PA & Lateral, NORMAL BREATHING PATTERN, UNREMARKABLE. absent: Rales, Rhonchi, Wheezes, Respiratory Distress - Cardiovascular Exam Cardiovascular Exam: REGULAR RHYTHM, RRR. absent: Tachycardia, Diastolic murmur , Systolic Murmur - GI/Abdominal Exam GI & Abdominal Exam: Normal Bowel Sounds, Unremarkable. absent: Distended, Firm , Soft, Tenderness - Back Exam Additional comments: multiple wounds, clean, dry, no exudate, no erythema, - Neurological Exam Neurological exam: Alert, CN II-XII Intact, Oriented x3 - Skin Skin Exam: Dry, Normal Color, Warm Discharge Plan - Follow Up Plan Condition: GOOD Disposition: HOME/ ROUTINE Instructions: Wound Infection (DC), Chronic Kidney Disease (DC), Altered Mental Status (GEN), End Stage Kidney Disease (DC) Additional Instructions: FOLLOW FACILITY PROTOCOL. Referrals: Nehemias Sesay MD [Primary Care Provider] - <Parag Brownlee - Last Filed: 08/13/17 10:08> Provider - Provider Date of Admission: 08/10/17 11:08 Attending physician: Nehemias Sesay MD Primary care physician: Nehemias Sesay MD Hospital Course - Lab Results Lab Results: Micro Results 08/11/17 14:40 Blood Blood Culture - Preliminary NO GROWTH AFTER 24 HOURS 08/11/17 14:20 Blood Blood Culture - Preliminary NO GROWTH AFTER 24 HOURS Most Recent Lab Values WBC 9.0 10^3/ul (4.5-11.0) 08/12/17 07:00 RBC 3.28 10^6/uL (3.5-6.1) L 08/12/17 07:00 Hgb 9.9 g/dL (14.0-18.0) L 08/12/17 07:00 Hct 31.5 % (42.0-52.0) L 08/12/17 07:00 MCV 96.0 fl (80.0-105.0) 08/12/17 07:00 MCH 30.2 pg (25.0-35.0) 08/12/17 07:00 MCHC 31.4 g/dl (31.0-37.0) 08/12/17 07:00 RDW 16.7 % (11.5-14.5) H 08/12/17 07:00 Plt Count 298 10^3/uL (120.0-450.0) 08/12/17 07:00 MPV 10.6 fl (7.0-11.0) 08/12/17 07:00 Gran % 53.0 % (50.0-68.0) 08/11/17 07:30 Lymph % (Auto) 33.8 % (22.0-35.0) 08/11/17 07:30 [place] % (Auto) 9.5 % (1.0-6.0) H 08/11/17 07:30 Eos % (Auto) 3.7 % (1.5-5.0) 08/11/17 07:30 Baso % (Auto) 0.0 % (0.0-3.0) 08/11/17 07:30 Gran # 4.96 (1.4-6.5) 08/11/17 07:30 Lymph # 3.2 (1.2-3.4) 08/11/17 07:30 [place] # 0.9 (0.1-0.6) H 08/11/17 07:30 Eos # 0.4 (0.0-0.7) 08/11/17 07:30 Baso # 0.00 K/mm3 (0.0-2.0) 08/11/17 07:30 ESR 72 mm/hr (0.00-15.0) H 08/08/17 12:30 PT 14.6 SECONDS (9.4-12.5) H 08/09/17 06:30 INR 1.32 (0.93-1.08) H 08/09/17 06:30 APTT 40.8 Seconds (25.1-36.5) H 08/07/17 23:40 Sodium 136 mmol/L (132-148) 08/12/17 07:00 Potassium 3.6 mmol/L (3.6-5.0) 08/12/17 07:00 Chloride 100 mmol/L (98-107) 08/12/17 07:00 Carbon Dioxide 27 mmol/L (21-33) 08/12/17 07:00 Anion Gap 12 (10-20) 08/12/17 07:00 BUN 27 mg/dL (7-21) H 08/12/17 07:00 Creatinine 4.6 mg/dl (0.8-1.5) H 08/12/17 07:00 Est GFR ( Amer) 15 08/12/17 07:00 Est GFR (Non-Af Amer) 13 08/12/17 07:00 Random Glucose 101 mg/dL (70-110) 08/12/17 07:00 Hemoglobin A1c 4.8 % (4.2-6.5) 08/08/17 12:30 Calcium 10.3 mg/dL (8.4-10.5) 08/12/17 07:00 Phosphorus 3.9 mg/dL (2.5-4.5) 08/11/17 07:30 Magnesium 2.0 mg/dL (1.7-2.2) 08/11/17 07:30 Total Bilirubin 0.4 mg/dL (0.2-1.3) 08/12/17 07:00 AST 51 U/L (17-59) 08/12/17 07:00 ALT 21 U/L (7-56) 08/12/17 07:00 Alkaline Phosphatase 80 U/L (38-126) 08/12/17 07:00 Ammonia < 9 umol/L (9-33) L 08/08/17 00:10 Lactate Dehydrogenase 574 U/L (333-699) 08/07/17 23:40 Total Creatine Kinase 86 U/L (35-230) 08/07/17 23:40 Troponin I 0.04 ng/mL D 08/07/17 23:40 C-React Prot High Sens > 15.00 mg/L (1.00-3.00) H 08/08/17 12:30 Total Protein 7.7 g/dL (5.8-8.3) 08/12/17 07:00 Albumin 3.3 g/dL (3.0-4.8) 08/12/17 07:00 Globulin 4.4 gm/dL 08/12/17 07:00 Albumin/Globulin Ratio 0.7 (1.1-1.8) L 08/12/17 07:00 Triglycerides 122 mg/dL (35-160) 08/09/17 06:30 Cholesterol 118 mg/dL (130-200) L 08/09/17 06:30 LDL Cholesterol Direct 45 mg/dL (0-129) 08/09/17 06:30 HDL Cholesterol 27 mg/dL (29-60) L 08/09/17 06:30 Procalcitonin 1.56 NG/ML (0.19-0.49) H 08/11/17 14:20 Acetaminophen < 10.0 ug/ml (10.0-20.0) L 08/07/17 23:40 Alcohol, Quantitative < 10 mg/dL (0-10) 08/07/17 23:40 - Hospital Course Hospital Course: discussed w/ resident at length went over meds labs xray tests condition plans orders reviewed
[2017-08-12] MEDS: Oxycodone/Acetaminophen 5/325 mg Tab PO PRN (13:26)
--- NOTE | 2017-08-12 16:08 | PN ---
DATE: 08/12/2017 SUBJECTIVE: The patient is in bed was seen early this morning. No fevers now. No chills. The patient did not have fever yesterday morning around 10 a.m. PHYSICAL EXAMINATION: VITAL SIGNS: Temperature is 98, T-max at the time was 100.8, blood pressure of 140/70, and respiratory rate of 16. HEENT: Unremarkable. NECK: Supple. LUNGS: Have decreased breath sounds. HEART: Normal S1 and S2. ABDOMEN: Soft and nontender. EXTREMITIES: Examination of the foot revels chronic changes. No evidence of an acute infection at this time. LABORATORY EXAMINATION: Blood cultures from 08/09/2017, are negative. Chest x-ray from yesterday is negative. ASSESSMENT AND PLAN: This is a 72-year-old male care home patient with hypertension, human immunodeficiency virus, undetectable viral load, good T cells over 400, prostate cancer, gout, history of left first toe osteomyelitis. For the human immunodeficiency virus patient gets dolutegravir, which is Tivicay, lamivudine, and abacavir. The patient with systemic inflammatory response syndrome, change in mental status, doing well and would complete the therapy with vancomycin during dialysis as it is ordered for corynebacterium species from the wound and the Coagulase-negative Staphylococcus from the wound to complete therapy. Case discussed with the nursing care. Cesar Flowers MD
--- NOTE | 2017-08-12 16:41 | CP.PCM.PN ---
Subjective - Date & Time of Evaluation Date of Evaluation: 08/12/17 Time of Evaluation: 13:00 - Subjective Subjective: Podiatry Progress Note - Dr. Dunn/Paulette 72 year old male patient seen and evaluated at bedside POD#2 irrigation and debridement of right nonhealing eschar ulcerations. Patient hemodynamically stable and NAD. Sister present at bedside. Denies any acute events overnight. Reports moderate pain to right foot, well-controlled. Heel offloading shoe present on RLE. Dressing to left foot absent, in surgical shoe. Patient aware he is being discharged to [facility] today, with plans to follow up in wound care center within 1 week of discharge. Denies N/V/F/D/C/SOB/calf pain. Objective - Vital Signs/Intake and Output Vital Signs (last 24 hours): Temp Pulse Resp BP Pulse Ox 97.6 F 83 17 153/76 H 89 L 08/12/17 07:38 08/12/17 07:38 08/12/17 07:38 08/12/17 10:50 08/12/17 07:38 Intake and Output: 08/12/17 08/12/17 06:59 18:59 Intake Total 420 Balance 420 - Labs Labs: 08/12/17 07:00 08/12/17 07:00 PT 14.6 SECONDS (9.4-12.5) H 08/09/17 06:30 INR 1.32 (0.93-1.08) H 08/09/17 06:30 APTT 40.8 Seconds (25.1-36.5) H 08/07/17 23:40 - Constitutional Appears: Well, Non-toxic, No Acute Distress - Extremities Exam Additional comments: Dressing to RLE appears clean/dry/intact with no strikethrough noted. Dressing to LLE absent. VASC: DP and PT nonpalpable. Temperature gradient cool to cool. CFT delayed. No edema noted to bilateral LE. DERM: Right: Ulceration noted to right medial malleolus measuring 3cm x 2cm x 0.2cm with mixed fibrogranular base and erythematous rim. No malodor noted. Mild serosanguinous drainage noted. No purulent drainage noted. No tracking noted. No probe to bone. No sign of acute infection is noted at this time. Second ulceration noted to lateral aspect of right heel measuring 2cm x 0.5cm x 0.2cm with mixed fibrogranular base with hyperpigmented margins. Mild serosanguinous drainage noted. No malodor noted. No purulence noted. No tracking noted. No probe to bone. Mild erythema to margins <0.5cm. No sign of acute infection is noted at this time. LEFT: 3rd digit partial amputation surgical incision appears well coapted with sutures intact and no wound dehiscence noted. Dried/crusted blood noted periwound. Discoloration noted to the distal stump of the amputation site. NEURO: gross and protective sensation diminished ORTHO: RIGHT medial aspect of the ankle and medial aspect of the rearfoot, posterior heel, and midfoot are moderately painful with palpation; gross midfoot collapse is appreciated secondary to Charcot. LEFT 1st and 2nd digit amputation noted, with recent partial 3rd digit amputation. - Neurological Exam Neurological Exam: Alert, Awake, Oriented x3 - Psychiatric Exam Psychiatric exam: Normal Affect, Normal Mood Assessment and Plan - Assessment and Plan (Free Text) Assessment: 72 year old male patient POD#2 irrigation and debridement of right nonhealing eschar ulcerations (DOS 08/10/) and 3 weeks s/p left 3rd digit partial amputation, stable Plan: Patient seen and evaluated Discussed with attending, Dr. Caldwell Afebrile, WBC WNL 9.0 MARLENI reveal severely abnormal right MARLENI at rest; right popliteal, trifurcation, and/or tibial diease; normal left MARLENI and waveforms at all levels Left foot cleansed with saline, betadine applied to left 3rd digit and dressed with DSD Right foot cleansed with saline and dressed with bacitracin, DSD Continue multipodus boots at all times while in bed. Pain mgmt per medicine Per ID, continue vancomycin and cefepime Stable per podiatry standpoint Advised patient to follow up in wound care center within 1 week of discharge Podiatry will continue to follow patient while in house
--- NOTE | 2017-08-14 08:32 | OP ---
PROCEDURE DATE: 08/10/2017 SURGEON: Suri Caldwell DPM BALLOON TESTER: Lionel Quiñonez DPM, PGY-1 ANESTHESIOLOGIST: Aleksandr Velásquez DO TYPE OF ANESTHESIA: IV sedation with local. PREOPERATIVE DIAGNOSIS: Nonhealing right eschar ulceration to lower extremity. POSTOPERATIVE DIAGNOSIS: Nonhealing right eschar ulceration to lower extremity. NAME OF PROCEDURE: Irrigation and debridement of nonhealing right eschar ulceration to lower extremity with Versajet. INDICATIONS: The patient is a 72-year-old male with the above diagnosis. The patient has exhausted all conservative treatment at this time and now requires surgical intervention. The patient signed the consent after careful explanation of risks, benefits, complications, and alternatives for surgical procedure. No guarantees were given nor implied. N.p.o. status was confirmed prior to taking the patient to the OR. PREPARATION: The patient was brought into the operating room and remained in the stretcher. Time-out was performed for identification of the correct patient and procedure. After induction of IV sedation, the patient received a total of 18 mL of 2% lidocaine plain in a local block fashion to the right lower extremity and was then prepped and draped in a normal sterile manner and the procedure began. No tourniquet was used during the procedure. Attention was then directed to the plantar heel where the ulceration is located. The ulceration measured approximately 7 cm x 6 cm with wound base mainly gangrenous with necrotic tissue noted. The wound border is hyperkeratotic. Using a #10 blade with pickup and incision was made outlining circumferentially around the border of the ulceration. The incision was carried through the subcutaneous tissue and using a #15 blade and pickup all nonviable and necrotic tissue was debrided and removed until healthy epithelial layer was exposed. Attention was then directed to the posterior aspect of the Achillis tendon where a second ulceration is located. The ulceration measured approximately 4 cm x 3 cm with the wound base mainly gangrenous with necrotic tissue noted. The wound border is hyperkeratotic. Using a #15 blade and pickup, incision was made outlined circumferentially around the border of the ulceration. The incision was carried through the subcutaneous tissue and using a #15 blade and pickup all nonviable and necrotic tissues were debrided and removed until healthy epithelial layer was exposed. Using the Versajet on power level 5, the base of the ulcerations were nonexcisionally debrided of all necrotic and nonviable tissue until heathy fresh bleeding granular tissue appear at the surgical site. The ulceration was copiously flushed with sterile saline solution. The surgical site was then dressed with Mupirocin, sterile gauze, foam, and Kerlix. POSTOPERATIVE CONDITION: The patient tolerated the anesthesia and procedure well and was escorted to the recovery room with the vital signs stable and neurovascular status intact to the right lower extremity. Podiatry will continue to follow the patient while is in-house. The patient with follow up with Dr. Caldwell upon discharge. José Antonio Quiñonez DPM Suri Caldwell DPM MTDAnna
== END 2017-08-12 14:51 | disposition home or self-care (01) | DRG 270 ==
LOC: ED 22:13 → ERH 08-08 01:03 → 3RNO 08-08 03:05 → 2RSO 08-09 13:17 → 3RNO 08-09 19:39 → OBSVTOIN 08-10 11:08
PROVIDERS: ADMIT Internal Medicine; ATTEND Internal Medicine
PROC: 04CM3ZZ Extirpation of Matter from Right Popliteal Artery, Percutaneous Approach (ICD-10-PCS; principal; 2017-08-09)
PROC: 047M3Z1 Dilation of Right Popliteal Artery using Drug-Coated Balloon, Percutaneous Approach (ICD-10-PCS; 2017-08-09)
PROC: 047R3ZZ Dilation of Right Posterior Tibial Artery, Percutaneous Approach (ICD-10-PCS; 2017-08-09)
PROC: 04CR3ZZ Extirpation of Matter from Right Posterior Tibial Artery, Percutaneous Approach (ICD-10-PCS; 2017-08-09)
PROC: B41DYZZ Fluoroscopy of Aorta and Bilateral Lower Extremity Arteries using Other Contrast (ICD-10-PCS; 2017-08-09)
PROC: 5A1D70Z Performance of Urinary Filtration, Intermittent, Less than 6 Hours Per Day (ICD-10-PCS; 2017-08-09)
PROC: 0JBQ0ZZ Excision of Right Foot Subcutaneous Tissue and Fascia, Open Approach (ICD-10-PCS; 2017-08-10)
DX: I70.261 Atherosclerosis of native arteries of extremities with gangrene, right leg (principal); N18.6 End stage renal disease; I12.0 Hypertensive chronic kidney disease with stage 5 chronic kidney disease or end stage renal disease; L97.319 Non-pressure chronic ulcer of right ankle with unspecified severity; L97.419 Non-pressure chronic ulcer of right heel and midfoot with unspecified severity; L97.519 Non-pressure chronic ulcer of other part of right foot with unspecified severity; M86.9 Osteomyelitis, unspecified; D64.9 Anemia, unspecified; Z21 Asymptomatic human immunodeficiency virus [HIV] infection status; J44.9 Chronic obstructive pulmonary disease, unspecified; Z99.2 Dependence on renal dialysis; M10.9 Gout, unspecified; K21.9 Gastro-esophageal reflux disease without esophagitis; E78.5 Hyperlipidemia, unspecified; R41.0 Disorientation, unspecified; M14.60 Charcot's joint, unspecified site; E78.00 Pure hypercholesterolemia, unspecified; Z89.422 Acquired absence of other left toe(s); Z85.46 Personal history of malignant neoplasm of prostate; Z90.79 Acquired absence of other genital organ(s)

== ENCOUNTER 2017-08-30 17:00 | Inpatient (IN) | payer MEDICARE, OTHER ==
--- NOTE | 2017-08-30 17:16 | ED PDOC ---
Arrival/HPI - General Time Seen by Provider: 08/30/17 17:14 Historian: [facility] (documentation) - History of Present Illness Narrative History of Present Illness (Text): 08/30/17 17:16 A 72 year old male sent into the emergency department from half-way for fever and alter mental status for 1 week. History obtained through half-way documentation. Patient has a history of ESRD on hemodialysis, anemia, hypertension and HIV. HPI and ROS limited due to patients state. Time/Duration: 1 week Symptom Course: Unchanged Quality: Other Context: Home (half-way) Past Medical History - Provider Review Nursing Documentation Reviewed: Yes - Infectious Disease Hx of Infectious Diseases: None - Tetanus Immunization Tetanus Immunization: Up to Date - Cardiac Hx Pacemaker: No - Pulmonary Hx Chronic Obstructive Pulmonary Disease (COPD): Yes - Neurological Hx Vertigo: Yes - HEENT Hx HEENT Disorder: No - Renal Hx Renal Failure: Yes - Endocrine/Metabolic Hx Diabetes Mellitus Type 1: No Hx Diabetes Mellitus Type 2: No - Hematological/Oncological Hx Blood Transfusions: No - Integumentary Hx Dermatological Disorder: Yes Hx Cellulitis: Yes Other/Comment: dry gangrene and osteomyelitis L foot - Musculoskeletal/Rheumatological Hx Musculoskeletal Disorders: Yes - Gastrointestinal Hx Clostridium Difficile: Yes Hx Colitis: Yes Hx Gastroesophageal Reflux: Yes - Genitourinary/Gynecological Hx Genitourinary Disorders: Yes Hx Prostate Cancer: Yes - Psychiatric Hx Substance Use: No - Surgical History Hx Amputation: Yes (L toes 1-3) Hx Angioplasty: Yes (L tibial artery ) Other/Comment: prostatectomy, incision and drainage of right hand abscess - Anesthesia Hx Anesthesia Reactions: No Hx Malignant Hyperthermia: No Family/Social History - Physician Review Nursing Documentation Reviewed: Yes Family/Social History: No Known Family HX Smoking Status: Never Smoked Hx Alcohol Use: Yes Hx Substance Use: No Allergies/Home Meds Allergies/Adverse Reactions: Allergies banana Allergy (Verified 08/08/17 04:43) SWELLING shrimp Allergy (Verified 08/08/17 04:43) SWELLING Home Medications: Home Meds Medication Instructions Recorded Confirmed Albuterol/Ipratropium [Duoneb 3 1 inh IN Q2 PRN 08/30/17 08/30/17 mg/0.5 mg (3 ml) UD] Ferrous Gluconate [Ferrous 324 mg PO TID 08/30/17 08/30/17 Gluconate] Folic Acid/Vit B Complex and C 0.8 mg PO DAILY 08/30/17 08/30/17 [Nephro-Christel Tablet] Lamivudine [Epivir] 150 mg PO DAILY 08/30/17 08/30/17 Losartan Potassium [Cozaar] 100 mg PO DAILY 08/30/17 08/30/17 Mupirocin 2% Ointment [Bactroban 1 appful HS 08/30/17 08/30/17 Ointment] Ondansetron HCl [Zofran] 4 mg PO Q4 PRN 08/30/17 08/30/17 Sevelamer [Renagel] 1,600 mg PO TID 08/30/17 08/30/17 ceFAZolin [Ancef] 1 gm IV DAILY 08/30/17 08/30/17 Review of Systems - Review of Systems Systems not reviewed;Unavailable: Altered Mental Status Physical Exam Vital Signs Reviewed: Yes Vital Signs Temp Pulse Resp BP Pulse Ox 08/30/17 21:21 98.4 F 102 H 18 119/45 L 95 08/30/17 19:30 101 H 18 175/93 H 99 08/30/17 17:13 100.5 F H 94 H 18 120/65 95 Temperature: Febrile Blood Pressure: Normal Pulse: Tachycardic Respiratory Rate: Normal - Systems Exam Head: Present: Atraumatic, Normocephalic Pupils: Present: PERRL Extroacular Muscles: Present: EOMI Conjunctiva: Present: Normal Mouth: Present: Dry Neck: Present: Normal Range of Motion Respiratory/Chest: Present: Clear to Auscultation, Good Air Exchange, Other ( Right sided pic line, right sided dialysis catheter). No: Respiratory Distress , Accessory Muscle Use Cardiovascular: Present: Regular Rate and Rhythm, Normal S1, S2. No: Murmurs Abdomen: Present: Normal Bowel Sounds. No: Tenderness, Distention, Peritoneal Signs Back: Present: Normal Inspection Upper Extremity: Present: Normal Inspection. No: Cyanosis, Edema Lower Extremity: Present: Other (dressing to left foot, contracted right leg). No: Edema Skin: Present: Warm, Dry, Normal Color. No: Rashes Psychiatric: Present: Alert, Other (responding to yes and no questions) Medical Decision Making ED Course and Treatment: 08/30/17 17:16 Impression: A 72 year old male sent in from half-way for fever and altered mental status Plan: -- Chest xray -- EKG -- Labs -- Blood and Urine culture -- Urinalysis -- Influenza A B stat -- Tylenol and IV fluids -- Reassess and disposition Progress Notes: EKG shows NSR at 98 BPM with PVC's, no acute ST changes. Interpreted by me. 08/30/17 19:32 Augustin placed with purulent urine. 08/30/17 19:47 Labs show leukocytosis. UA positive. Creatinine elevated consistent with baseline ESRD on HD. K WNL. Antibiotics ordered. Admit to Dr. lugo - Lab Interpretations Lab Results: 08/30/17 18:21 08/30/17 18:21 Lab Results 08/30/17 19:25: Urine Color Yellow, Urine Appearance Cloudy, Urine pH 6.0, Ur Specific [place] 1.020, Urine Protein >=300 H, Urine Glucose (UA) Negative, Urine Ketones Trace H, Urine Blood Large H, Urine Nitrate Negative, Urine Bilirubin Negative, Urine Urobilinogen 0.2, Ur Leukocyte Esterase Large H, Urine RBC 25 - 30, Urine WBC Tntc, Ur Epithelial Cells 4 - 5, Urine Bacteria Large 08/30/17 19:07: pO2 88 H, VBG pH 7.41, VBG pCO2 44.0, VBG HCO3 27.9, VBG Total CO2 29.3 H, VBG O2 Sat (Calc) 98.8 H, VBG Base Excess 2.7 H, VBG Potassium 4.9, Glucose 93, Lactate 0.8, FiO2 21.0, Sodium 139.0, Chloride 107.0, Venous Blood Potassium 4.9 08/30/17 19:07: PT 12.9 H, INR 1.13 H, APTT 38.2 H 08/30/17 18:31: POC Glucose (mg/dL) 86 08/30/17 18:21: Influenza Typ A,B (EIA) Negative for flu a/b 08/30/17 18:21: Sodium 138, Potassium 4.7, Chloride 103, Carbon Dioxide 26, Anion Gap 14, BUN 62 H, Creatinine 8.1 H* D, Est GFR ( Amer) 8, Est GFR ( Non-Af Amer) 7, Random Glucose 88, Calcium 10.9 H, Phosphorus 2.7, Magnesium 2.4 H, Total Bilirubin 0.5, AST 60 H, ALT 23, Alkaline Phosphatase 102, Lactate Dehydrogenase 551, Total Creatine Kinase 161, Troponin I 0.04, NT-Pro-B Natriuret Pep 8390 H, Total Protein 7.4, Albumin 3.1, Globulin 4.3, Albumin/ Globulin Ratio 0.7 L 08/30/17 18:21: WBC 16.6 H D, RBC 3.15 L, Hgb 9.6 L, Hct 30.4 L, MCV 96.5, MCH 30.5, MCHC 31.6, RDW 17.3 H, Plt Count 402, MPV 10.9, Gran % 66.3, Lymph % (Auto ) 21.7 L, [place] % (Auto) 10.8 H, Eos % (Auto) 1.1 L, Baso % (Auto) 0.1, Gran # 11.03 H, Lymph # 3.6 H, [place] # 1.8 H, Eos # 0.2, Baso # 0.02 I have reviewed the lab results: Yes - RAD Interpretation Radiology Orders: 08/30/17 17:15 CHEST PORTABLE [RAD] Stat - Medication Orders Current Medication Orders: Enoxaparin Sodium (Lovenox) 30 mg SC DAILY [facility] PRN Reason: Protocol Sodium Chloride (Sodium Chloride 0.45%) 1,000 mls @ 60 mls/hr IV .[id number] [facility] Last Admin: 08/30/17 18:30 Dose: 60 mls/hr eMAR Start Stop Document 08/30/17 18:30 SF (Rec: 08/30/17 19:30 [place] [facility] [id number] Intravenous Solution Start Date 08/30/17 Start Time 18:30 Insulin Human Regular (Humulin R Med) 0 units SC [facility] PRN Reason: Protocol Lamivudine (Epivir) 50 mg PO DAILY DWAIN Metoprolol Tartrate (Lopressor) 100 mg PO Q12 [facility] Discontinued Medications Acetaminophen (Tylenol 325 Mg Supp) 650 mg RC STAT STA Stop: 08/30/17 17:19 Last Admin: 08/30/17 18:45 Dose: 650 mg Ceftriaxone Sodium (Rocephin 1 Gram Ivpb) 1 gm in 100 mls @ 200 mls/hr IVPB STAT STA Stop: 08/30/17 20:05 Last Admin: 01/11/18 19:41 Dose: 200 mls/hr eMAR Start Stop Document 08/30/17 19:41 SF (Rec: 08/30/17 19:41 [place] [facility] [id number][place] Intravenous Solution Start Date 08/30/17 Start Time 19:41 End Date 08/30/17 End time 20:12 Total Infusion Time 31 Sodium Chloride (Sodium Chloride 0.9%) 1,000 mls @ 999 mls/hr IV .Q1H1M STA Stop: 08/30/17 20:43 Last Admin: 08/30/17 19:43 Dose: 999 mls/hr eMAR Start Stop Document 08/30/17 19:43 SF (Rec: 08/30/17 21:01 SF [id number]) Intravenous Solution Start Date 08/30/17 Start Time 19:43 End Date 08/30/17 End time 20:44 Total Infusion Time 61 Sodium Chloride (Sodium Chloride 0.9%) 1,000 mls @ 999 mls/hr IV .Q1H1M STA Stop: 08/30/17 20:46 Last Admin: 08/30/17 19:43 Dose: 999 mls/hr eMAR Start Stop Document 08/30/17 19:43 SF (Rec: 08/30/17 21:01 [id number]) Intravenous Solution Start Date 08/30/17 Start Time 19:43 End Date 08/30/17 End time 20:44 Total Infusion Time 61 - Scribe Statement The provider has reviewed the documentation as recorded by the Yissel Mann Provider Scribe Attestation: All medical record entries made by the Scribe were at my direction and personally dictated by me. I have reviewed the chart and agree that the record accurately reflects my personal performance of the history, physical exam, medical decision making, and the department course for this patient. I have also personally directed, reviewed, and agree with the discharge instructions and disposition. Disposition/Present on Arrival - Present on Arrival Any Indicators Present on Arrival: No History of DVT/PE: No History of Uncontrolled Diabetes: No Urinary Catheter: No History Surgical Site Infection Following: None - Disposition Have Diagnosis and Disposition been Completed?: Yes Diagnosis: UTI (urinary tract infection), Renal failure, Sepsis Disposition: HOSPITALIZED Disposition Time: 19:33 Patient Plan: Admission Patient Problems: Current Active Problems Problem Status Onset Renal failure Acute SIRS (systemic inflammatory response syndrome) Acute UTI (urinary tract infection) Acute Condition: FAIR
[2017-08-30] MEDS ORDERED: Sodium Chloride 0.9% 1,000 ML IV STA ×3 (17:18→19:46)
[2017-08-30] MEDS: Sodium Chloride 0.45% 1,000 ML IV SCH (18:30)
[2017-08-30 18:31] LABS: BASO # 0.02 K/mm3 (0.0-2.0); BASO % 0.1 % (0.0-3.0); EOS # 0.2 (0.0-0.7); EOS % 1.1 % (1.5-5.0); GRAN # 11.03 (1.4-6.5); GRAN % 66.3 % (50.0-68.0); HEMOGLOBIN 9.6 g/dL (14.0-18.0); LYMPH # 3.6 (1.2-3.4); LYMPH % 21.7 % (22.0-35.0); MEAN CELL VOLUME 96.5 fl (80.0-105.0); MEAN CORPUSCULAR HEMOGLOBIN 30.5 pg (25.0-35.0); MEAN CORPUSCULAR HGB CONC 31.6 g/dl (31.0-37.0); MEAN PLATELET VOLUME 10.9 fl (7.0-11.0); MONO # 1.8 (0.1-0.6); MONO % 10.8 % (1.0-6.0); RBC 3.15 10^6/uL (3.5-6.1); RED CELL DISTRIBUTION WIDTH 17.3 % (11.5-14.5); WHITE BLOOD COUNT 16.6 10^3/ul (4.5-11.0)
[2017-08-30 19:12] LABS: VENOUS BLOOD GAS BASE EXCESS 2.7 mmol/L (0.0-2.0); VENOUS BLOOD GAS PO2 88 mm/Hg (30-55); VENOUS BLOOD PH 7.41 (7.32-7.43)
[2017-08-30] MEDS ORDERED: cefTRIAXone (Rocephin) 1 gm Inj IVPB STA (19:32)
[2017-08-30 19:36] LABS: TROPONIN I 0.04 ng/mL
[2017-08-30] MEDS ORDERED: cefTRIAXone 1 GM/100 ML BAG IVPB STA (19:36)
[2017-08-30 19:44] LABS: ALB/GLOB RATIO 0.7 (1.1-1.8); ALBUMIN 3.1 g/dL (3.0-4.8); CALCIUM 10.9 mg/dL (8.4-10.5); MAGNESIUM 2.4 mg/dL (1.7-2.2)
[2017-08-30 20:19] LABS: URINE BILIRUBIN NEGATIVE (NEGATIVE); URINE BLOOD LARGE (NEGATIVE); URINE GLUCOSE (UA) NEGATIVE (NEGATIVE); URINE LEUKOCYTE ESTERASE LARGE Leu/uL (NEGATIVE); URINE NITRATE NEGATIVE (NEGATIVE); URINE PROTEIN >=300 mg/dL (<30 mg/dL); URINE UROBILINOGEN 0.2 E.U./dL (<1 E.U./dL)
[2017-08-30 20:23] LABS: URINE APPEARANCE CLOUDY (CLEAR); URINE COLOR YELLOW (YELLOW)
[2017-08-30 20:30] LABS: URINE BACTERIA LARGE (NEG); URINE RBC 25 - 30 /hpf (0-2); URINE WBC TNTC /hpf (0-6)
[2017-08-30 20:57] LABS: INR 1.13 (0.93-1.08); PARTIAL THROMBOPLASTIN TIME 38.2 Seconds (25.1-36.5); PROTHROMBIN TIME 12.9 SECONDS (9.4-12.5)
[2017-08-30] MEDS ORDERED: Cefepime 1gm in NS 100ml 1 GM/100 ML BAG IVPB SCH (22:45)
[2017-08-30] MEDS: Insulin Reg-MEDIUM-Coverage SC SCH (23:10)
--- NOTE | 2017-08-31 00:47 | HP ---
HISTORY AND PHYSICAL: I saw Raza Sagastume this morning at [facility] subacute rehab where he was confused, not doing well. He has been refusing medications for the past 3-4 days. He has been out of it. Now, he is getting worse mentally. He was very alert and oriented about a week and half ago when he got to the hospital. He has been out of the hospital and rehab for the past 6 months. He is on a downward spiral. He has had multiple surgeries for his feet, and he has had multiple IV antibiotics. He has been recently on antibiotics this week and he has been steadily declining, so he is sent to the emergency room. He is in the emergency room in a little bit of pain, is uncomfortable. He is not aware, alert. He is confused. He is a 72-year-old male I have known for few months now. He is with fever, change in mentation. PAST MEDICAL HISTORY: End-stage renal disease, on hemodialysis. He has anemia, hypertension, HIV, sepsis history, feet history with ulcers and amputations of toes. He has COPD, vertigo, diabetes, renal failure, cellulitis, dry gangrene and osteomyelitis of the left foot, C. diff history, colitis, gastroesophageal reflux, prostate cancer. PAST SURGICAL HISTORY: He had toes on the left one to three amputated. He had a left tibial artery angioplasty. He has prostatectomy, incision and drainage of the right hand abscess. FAMILY HISTORY: Hypertension in the family. ALLERGIES: HE IS ALLERGIC TO BANANA AND SHRIMP. SOCIAL HISTORY: He never smoked. Drinks alcohol. No drugs. REVIEW OF SYSTEMS: He is out of it mentally, hard to communicate with him, this is a change in mental status. PHYSICAL EXAMINATION: VITAL SIGNS: He has 100.5 temperature, 94 pulse 18, respiratory rate, 120/65 blood pressure, 95% O2 sat on room air. HEENT: His head is atraumatic, normocephalic. Extraocular muscles are intact. Throat is dry. NECK: Supple. HEART: Regular rate. Normal S1, S2. LUNGS: Decreased breath sounds but clear to auscultation. ABDOMEN: Soft, nontender. Positive bowel sounds. No guarding, no rebound or CVA tenderness. EXTREMITIES: Has dressings in both his feet. SKIN: Warm and dry except for the feet. There are some ulcers. DIAGNOSTIC DATA: We are doing a big workup on him. His EKG shows normal sinus rhythm at 98 beats per minute. No acute ST-T wave changes. He will be on IV fluids, Tylenol. Labs are not back yet. I will make orders appropriately. PLAN: I will call in Renal, Podiatry and Infectious Disease. He will be on insulin coverage, oxygen, IV fluids and is here for change in mentation, rule out sepsis. Parag Brownlee DO
[2017-08-31 06:27] LABS: MEAN CELL VOLUME 96.6 fl (80.0-105.0); MEAN CORPUSCULAR HEMOGLOBIN 30.7 pg (25.0-35.0); MEAN CORPUSCULAR HGB CONC 31.8 g/dl (31.0-37.0); MEAN PLATELET VOLUME 10.8 fl (7.0-11.0); RBC 2.93 10^6/uL (3.5-6.1); WHITE BLOOD COUNT 16.3 10^3/ul (4.5-11.0)
[2017-08-31 07:10] LABS: ALB/GLOB RATIO 0.7 (1.1-1.8); ALBUMIN 2.8 g/dL (3.0-4.8); CALCIUM 10.4 mg/dL (8.4-10.5)
[2017-08-31] MEDS: Insulin Reg-MEDIUM-Coverage SC SCH ×4 (08:17→22:17)
--- NOTE | 2017-08-31 09:06 | PN ---
DATE: SUBJECTIVE: I saw Raza resting comfortably in bed. He is talking better today, more alert, little bit stronger than the other day. I think the IV fluids is helping him and the antibiotics. MEDICATIONS: He is on IV fluids, Epivir, Lopressor, Lovenox, Maxipime, morphine, Renagel, and Rocephin. PHYSICAL EXAMINATION: VITAL SIGNS: He has 100.8 temperature, 95 pulse, 157/95 blood pressure, 18 respiratory rate, and 94% saturation on 2 L nasal cannula. HEENT: His head is atraumatic and normocephalic. Throat is dry. HEART: Regular rate. LUNGS: Decreased breath sounds, but clear to auscultation. ABDOMEN: Soft. EXTREMITIES: Got bad feet that bandaged from multiple issues with his toes and amputations. LABORATORY DATA: He has a 140 sodium, potassium is 5, BUN is 63, and creatinine is 7.8; he does go to dialysis. GFR is 7, sugar is 87, calcium is 7.4, total bilirubin is 0.4, AST is 84, ALT is 20, alkaline phosphatase is 110, and total protein is 6.8. He has a 16.3 white count, 9 hemoglobin, 28.3 hematocrit with 405 platelets. ASSESSMENT AND PLAN: He has consults for Renal, he will need dialysis; Infectious Disease, he will need intravenous antibiotics; and Dr. Caldwell, provider relations manager for his poor feet, toes, and ulcers. We will continue with aggressive treatment and care on Raza Sagastume. He is also adamant mentally, I think from infection and hopefully also continue to improve. Paarg Brownlee DO
[2017-08-31] MEDS ORDERED: Vancomycin 1gm in NS 250ml 1 GM/250 ML BAG IVPB STA (09:30)
--- NOTE | 2017-08-31 09:45 | RAD ---
HISTORY: altered COMPARISON: 08/11/2017 FINDINGS: LUNGS: No active pulmonary disease. PLEURA: No significant pleural effusion identified, no pneumothorax apparent. CARDIOVASCULAR: Mild cardiomegaly. Mild vascular congestion OSSEOUS STRUCTURES: No significant abnormalities. VISUALIZED UPPER ABDOMEN: Normal. OTHER FINDINGS: None. IMPRESSION: Mild vascular congestion.
[2017-08-31] MEDS ORDERED: Home Med 1 UNIT PO SCH (10:00)
[2017-08-31] MEDS: Enoxaparin 30 mg Syringe SC SCH (10:01)
[2017-08-31] MEDS ORDERED: Darbepoetin Alfa 60 mcg/ml Inj IVP ONE (10:44)
--- NOTE | 2017-08-31 12:12 | CP.PCM.CON ---
History of Present Illness - History of Present Illness History of Present Illness: 72 year old male with PMH of HTN, prostate CA, HIV ([facility] CD4 count on our records 03/2016 is 349 with VL < 1.3 log), history of osteomyelitis of left first toe S/P amputation (2015), gout, history of left foot ulcers, history of pyelonephritis with E. coli bacteremia, S/P left foot 3rd digit chronic osteomyelitis S/P amputation and debridement, severe PAD S/P angioplasty of the left tibial artery was brought in to [facility] because of lethargy and fevers, which apparently started about a week ago. The patient was not very arousable initially in the ED but is now talkative but has confusion and still has some lethargy. There is no note of vomiting, no convulsions, no diarrhea, no loss of consciousness. Full ROS is unobtainable because of the patient's mental condition. Infectious Diseases consult is requested to further evaluate and manage. Review of Systems - Review of Systems Systems not reviewed;Unavailable: Altered Mental Status Past Patient History - Infectious Disease Hx of Infectious Diseases: None - Tetanus Immunizations Tetanus Immunization: Up to Date - Past Medical History & Family History Past Medical History?: Yes - Past Social History Smoking Status: Never Smoked - CARDIAC Hx Pacemaker: No - PULMONARY Hx Chronic Obstructive Pulmonary Disease (COPD): Yes - NEUROLOGICAL Hx Vertigo: Yes - HEENT Hx HEENT Problems: No - RENAL Hx Renal Failure: Yes - ENDOCRINE/METABOLIC Hx Diabetes Mellitus Type 1: No Hx Diabetes Mellitus Type 2: No - HEMATOLOGICAL/ONCOLOGICAL Hx Blood Transfusions: No - INTEGUMENTARY Hx Dermatological Problems: Yes Hx Cellulitis: Yes Other/Comment: dry gangrene and osteomyelitis L foot - MUSCULOSKELETAL/RHEUMATOLOGICAL Hx Musculoskeletal Disorders: Yes - GASTROINTESTINAL Hx Clostridium Difficile: Yes Hx Colitis: Yes Hx Gastroesophageal Reflux: Yes - GENITOURINARY/GYNECOLOGICAL Hx Genitourinary Disorders: Yes Hx Prostate Cancer: Yes - PSYCHIATRIC Hx Substance Use: No - SURGICAL HISTORY Hx Amputation: Yes (L toes 1-3) Hx Angioplasty: Yes (L tibial artery ) Other/Comment: prostatectomy, incision and drainage of right hand abscess - ANESTHESIA Hx Anesthesia Reactions: No Hx Malignant Hyperthermia: No Meds Allergies/Adverse Reactions: Allergies Allergy/AdvReac Type Severity Reaction Status Date / Time banana Allergy SWELLING Verified 08/08/17 04:43 shrimp Allergy SWELLING Verified 08/08/17 04:43 - Medications Medications: Current Medications Enoxaparin Sodium (Lovenox) 30 mg SC DAILY [facility] PRN Reason: Protocol Sodium Chloride (Sodium Chloride 0.45%) 1,000 mls @ 60 mls/hr IV .[id number] [facility] Last Admin: 08/30/17 18:30 Dose: 60 mls/hr Insulin Human Regular (Humulin R Med) 0 units SC ACHS [facility] PRN Reason: Protocol Lamivudine (Epivir) 50 mg PO DAILY [facility] Metoprolol Tartrate (Lopressor) 100 mg PO Q12 [facility] Physical Exam - Constitutional Appears: Other (somewhat lethargic but easily arousable) - Head Exam Head Exam: NORMAL INSPECTION - Neck Exam Neck exam: Negative for: Meningismus - Respiratory Exam Respiratory Exam: Decreased Breath Sounds Additional comments: right anterior chest wall HD catheter in place and intact - Cardiovascular Exam Cardiovascular Exam: +S1, +S2 - GI/Abdominal Exam GI & Abdominal Exam: Soft. absent: Tenderness Results - Vital Signs Recent Vital Signs: Last Vital Signs Temp 98.4 F 08/30/17 21:21 Pulse 102 H 08/30/17 21:21 Resp 18 08/30/17 21:21 BP 119/45 L 08/30/17 21:21 Pulse Ox 95 08/30/17 21:21 - Labs Result Diagrams: 08/31/17 05:30 08/31/17 05:30 Assessment & Plan - Assessment and Plan (Free Text) Plan: Assessment Systemic Inflammatory response syndrome, R/O severe sepsis with acute encephalopathy source to be determined history of left foot 3rd digit chronic osteomyelitis S/P amputation and debridement severe PAD S/P angioplasty of the left tibial artery right sided nephrolithiasis history of severe sepsis with acute on chronic renal failure probably due to pyelonephritis with E. coli bacteremia history of C. diff. associated diarrhea Charcot foot, left history of left 2nd toe dry gangrene Chronic renal failure on hemodialysis HTN prostate CA HIV [place] CD4 [place] [facility] [place] 349 and virus load < 1.3 log) history of osteomyelitis of left first toe S/P amputation (2015) gout history of left foot ulcers Plan given a dose of IV Vanco and will start Merrem and add Acyclovir pending blood cx, urine cx; reviewed CXR which did not show infiltrates; ordered MRI brain and would suggest Neuro evaluation for possible CSF analysis rapid Influenza test is negative continue antiretroviral therapy (lamivudine, abacavir on formulary but dolutegravir should be taken by patient from his home supply) overall prognosis is poor
[2017-08-31] MEDS: LamiVUDine 10 mg/ml Syringe PO SCH (13:09)
[2017-08-31] MEDS: Sodium Chloride 0.45% 1,000 ML IV SCH (13:13)
[2017-08-31] MEDS: Acyclovir 300 MG in Sodium Chloride 0.9% 100 ML IV SCH (13:35)
[2017-08-31] MEDS: Meropenem 500 MG in Sodium Chloride 0.9% 100 ML IVPB SCH (13:50)
--- NOTE | 2017-08-31 16:02 | CP.PCM.CON ---
History of Present Illness - History of Present Illness History of Present Illness: Initial Nephrology Consultation: Assessment: stable Altered mental status, sepsis possible UTI hx of prostate CA Hypertensive Chronic Kidney Disease (I12.9) ESRD on HD via permacath (TTS) Anemia (D64.9), HTN (I12.9) HIV on HAART, PVD s/p angioplasty Plan plan for HD today and next tomorrow as per TTS. nephrovite 1 tab/day aransep weekly for anemia 08/31/17. PRBC as needed not on VDRA as PTH at goal. since Ca on high side, check Vit D/PTH/SPEP/CLYDE continue with binders for phos Hypertension control with meds as ordered. Patient on RAAS edyta as losartan ID following started flomax. check renal sonogram d/c IVF once pt orally accepting Dose meds/antibiotics for ESRD status. Avoid fleets enema/magnesium based laxatives. Avoid nephrotoxins/NSAIDs/ iodinated contrast (unless needed emergently) Further work up/management as per primary team Thanks for allowing me to participate in care of your patient. Will follow patient with you. Please call if any Qs. d/w team Dr Yandel Arechiga Office: [phone] Chief Complaint; heel pain reason for consult: ESRD, HTN HPI: Pt is a 72 y/o M with hx of HIV on HAART, PVD s/p angioplasty, hypertension (10-15 years), ESRD on HD (via permacath) TTS @ [facility], left foot toe amputations, prostate CA initially admitted with AMS, fever and sepsis renal consult for ESRD, HTN management pt unable to provide hx due to AMS ROS: AMS hence unable Physical Examination: General Appearance: uncomfortable, in no acute respiratory distress, ill appearing Vitals reviewed and noted as below Head; Atraumatic, normocephalic ENT: no ulcers no thrush. Tongue is midline dry. Oropharynx: no rash or ulcers. EYES: Pupils are equal, round and reactive to light accommodation. Eye muscles and extraocular movement intact. Sclera is anicteric. Neck; supple no lymphadenopathy, no thyromegaly or bruit Lungs: Normal respiratory rate/effort. Breath sounds bilateral clear Heart: Normal rate. s1s2 normal. No rub or gallop. Extremities: no edema. No varicose veins. Neurological: Patient is delirious and confused Skin: Warm and dry. Normal turgor. No rash. Palpitation: Normal elasticity for age Abdomen: Abdomen is soft. Bowel sounds +. There is mild lower abdominal tenderness, no guarding/rigidity no organomegaly Psych: unable MSK: Digits and nails normal, left foot toe amputations in past. Rt foot in dressing. : kidney or bladder not palpable. Access: permacath and maturing left AVF Labs/imaging/EKG reviewed. Past medical history, past surgical history, family history, social history, allergy reviewed and noted as below Family hx: sister was on dialysis. Rest non-contributory Past Patient History - Infectious Disease Hx of Infectious Diseases: None - Tetanus Immunizations Tetanus Immunization: Up to Date - Past Medical History & Family History Past Medical History?: Yes - Past Social History Smoking Status: Never Smoked - CARDIAC Hx Pacemaker: No - PULMONARY Hx Chronic Obstructive Pulmonary Disease (COPD): Yes - NEUROLOGICAL Hx Vertigo: Yes - HEENT Hx HEENT Problems: No - RENAL Hx Renal Failure: Yes - ENDOCRINE/METABOLIC Hx Diabetes Mellitus Type 1: No Hx Diabetes Mellitus Type 2: No - HEMATOLOGICAL/ONCOLOGICAL Hx Blood Transfusions: No - INTEGUMENTARY Hx Dermatological Problems: Yes Hx Cellulitis: Yes Other/Comment: dry gangrene and osteomyelitis L foot - MUSCULOSKELETAL/RHEUMATOLOGICAL Hx Musculoskeletal Disorders: Yes - GASTROINTESTINAL Hx Clostridium Difficile: Yes Hx Colitis: Yes Hx Gastroesophageal Reflux: Yes - GENITOURINARY/GYNECOLOGICAL Hx Genitourinary Disorders: Yes Hx Prostate Cancer: Yes - PSYCHIATRIC Hx Substance Use: No - SURGICAL HISTORY Hx Amputation: Yes (L toes 1-3) Hx Angioplasty: Yes (L tibial artery ) Other/Comment: prostatectomy, incision and drainage of right hand abscess - ANESTHESIA Hx Anesthesia Reactions: No Hx Malignant Hyperthermia: No Meds Allergies/Adverse Reactions: Allergies Allergy/AdvReac Type Severity Reaction Status Date / Time banana Allergy SWELLING Verified 08/08/17 04:43 shrimp Allergy SWELLING Verified 08/08/17 04:43 - Medications Medications: Current Medications Abacavir Sulfate (Ziagen) 600 mg PO DAILY [facility] Last Admin: 08/31/17 12:22 Dose: 600 mg Enoxaparin Sodium (Lovenox) 30 mg SC DAILY [facility] PRN Reason: Protocol Last Admin: 08/31/17 10:01 Dose: 30 mg Home Med (Home Med) 1 unit PO DAILY [facility] Sodium Chloride (Sodium Chloride 0.45%) 1,000 mls @ 60 mls/hr IV .[id number] [facility] Last Admin: 08/31/17 13:13 Dose: 60 mls/hr Meropenem 500 mg/ Sodium (Chloride) 100 mls @ 100 mls/hr IVPB Q24H [facility] PRN Reason: Protocol Last Admin: 08/31/17 13:50 Dose: 100 mls/hr Acyclovir 300 mg/ Sodium (Chloride) 100 mls @ 100 mls/hr IV DAILY [facility] PRN Reason: Protocol Last Admin: 08/31/17 13:35 Dose: 100 mls/hr Insulin Human Regular (Humulin R Med) 0 units SC ACHS [facility] PRN Reason: Protocol Last Admin: 08/31/17 13:12 Dose: Not Given Lamivudine (Epivir) 50 mg PO DAILY [facility] Last Admin: 08/31/17 13:09 Dose: Not Given Losartan Potassium (Cozaar) 100 mg PO QPM [facility] Metoprolol Tartrate (Lopressor) 100 mg PO Q12 [facility] Last Admin: 08/31/17 10:00 Dose: 100 mg Morphine Sulfate (Morphine) 1 mg IVP Q3H [facility] PRN Reason: Pain, moderate (4-7) Sevelamer HCl (Renagel) 800 mg PO TID [facility] Last Admin: 08/31/17 14:05 Dose: Not Given Vitamin B Complex/Vit C/Folic Acid (Nephro-Christel) 1 tab PO 0800 [facility] Results - Vital Signs Recent Vital Signs: Last Vital Signs Temp 100.8 F H 08/31/17 01:56 Pulse 95 H 08/30/17 23:10 Resp 18 08/31/17 01:56 BP 157/95 H 08/30/17 23:10 Pulse Ox 94 L 08/30/17 23:10 - Labs Result Diagrams: 08/31/17 05:30 08/31/17 05:30 Labs: Laboratory Results - last 24 hr 08/31/17 08/31/17 08/31/17 05:30 05:30 07:37 WBC 16.3 H RBC 2.93 L Hgb 9.0 L Hct 28.3 L MCV 96.6 MCH 30.7 MCHC 31.8 RDW 17.0 H Plt Count 405 MPV 10.8 Sodium 140 Potassium 5.0 Chloride 107 Carbon Dioxide 22 Anion Gap 16 BUN 63 H Creatinine 7.8 H* Est GFR ( Amer) 8 Est GFR (Non-Af Amer) 7 POC Glucose (mg/dL) 87 Random Glucose 73 Calcium 10.4 Total Bilirubin 0.4 AST 84 H D ALT 20 Alkaline Phosphatase 110 Total Protein 6.8 Albumin 2.8 L Globulin 3.9 Albumin/Globulin Ratio 0.7 L 08/31/17 12:33 WBC RBC Hgb Hct MCV MCH MCHC RDW Plt Count MPV Sodium Potassium Chloride Carbon Dioxide Anion Gap BUN Creatinine Est GFR ( Amer) Est GFR (Non-Af Amer) POC Glucose (mg/dL) 71 Random Glucose Calcium Total Bilirubin AST ALT Alkaline Phosphatase Total Protein Albumin Globulin Albumin/Globulin Ratio
--- NOTE | 2017-08-31 20:39 | CARD ---
APPROVED REPORT EKG Measurement Heart [id number] <Conclusion> Sinus rhythm with occasional premature ventricular complexes Possible Left atrial enlargement Borderline ECG
[2017-09-01] MEDS: Morphine 2 mg/ml ISec IVP PRN ×3 (01:50→15:39)
--- NOTE | 2017-09-01 03:09 | US ---
EXAM: US Retroperitoneal Limited, Renal CLINICAL HISTORY: 72 years old, male; Abnormal findings; Abnormal lab test; Abnormal kidney function lab tests; Additional info: Sepsis, uti R/O obstruction TECHNIQUE: Real-time ultrasound of the retroperitoneum (limited) with image documentation. Real time cine loop images are submitted. 43 images are submitted. COMPARISON: US - RENAL 2017-04-30 14:31 FINDINGS: Right kidney: Mild right hydronephrosis. The right kidney measures 9.2 x 4.6 x 5.5 cm. Echogenic kidneys representing medical renal disease. Left kidney: The left kidney measures 7.9 x 4.7 x 4.1 cm. echogenic kidney representing medical renal disease. There are left lower pole renal cyst measuring 1.0 and 0.6 cm. Limited evaluation of the left kidney due to shadowing. No hydronephrosis. IMPRESSION: 1. Mild right hydronephrosis.Correlation with internal medicine evaluation and further workup or followup as recommended by patient's clinical data. 2. Echogenic kidneys representing medical renal disease. Patient has end-stage renal disease and is on dialysis.
[2017-09-01] MEDS: Sodium Chloride 0.45% 1,000 ML IV SCH ×2 (04:00→20:58)
[2017-09-01 08:08] LABS: HEMOGLOBIN 8.3 g/dL (14.0-18.0); MEAN CELL VOLUME 95.7 fl (80.0-105.0); MEAN CORPUSCULAR HEMOGLOBIN 29.5 pg (25.0-35.0); MEAN CORPUSCULAR HGB CONC 30.9 g/dl (31.0-37.0); MEAN PLATELET VOLUME 10.4 fl (7.0-11.0); RBC 2.81 10^6/uL (3.5-6.1); RED CELL DISTRIBUTION WIDTH 16.9 % (11.5-14.5); WHITE BLOOD COUNT 11.4 10^3/ul (4.5-11.0)
[2017-09-01] MEDS: Insulin Reg-MEDIUM-Coverage SC SCH ×4 (08:23→22:38)
[2017-09-01] MEDS: Multivitamin Vitamin B Complex (Nephro-Vite) Tab PO SCH (08:56)
[2017-09-01 09:04] LABS: ALB/GLOB RATIO 0.7 (1.1-1.8); ALBUMIN 2.8 g/dL (3.0-4.8); CALCIUM 9.7 mg/dL (8.4-10.5)
--- NOTE | 2017-09-01 09:43 | PN ---
DATE: SUBJECTIVE: I saw Raza resting comfortably in his bed. He is alert, talking a little bit, falls into sleep, but he is doing a little bit better than when he came in when he was completely confused. He has so many issues from hypertension to prostate cancer to HIV, osteomyelitis of the left first toe, status post amputations of multiple status post bacteremias, status post left foot third digit chronic osteomyelitis and amputation. He is into so much. He is here today for SIRS, rule out sepsis, encephalopathy, very weak. On ultrasound of the kidneys, mild right hydronephrosis. PHYSICAL EXAMINATION: VITAL SIGNS: 100.8 temp, 109 pulse, 160/72 blood pressure, 18 respiratory rate, 94% O2 sat on room air. HEENT: His head is atraumatic, normocephalic. HEART: Regular rate. LUNGS: Decreased breath sounds. ABDOMEN: Soft. EXTREMITIES: Kind of contracted a little bit. LABORATORY DATA: Negative for the flu. He has got a 16 white count, 9 hemoglobin, 405 platelets. 140 sodium, potassium 5, BUN and creatinine are high 63 and 7.8. The patient is on dialysis. Sugar was 71. AST is 84, ALT is 20, alk phos 110. MEDICATIONS: He is currently on acyclovir, Cozaar, Epivir, Flomax, Lopressor, Lovenox, meropenem IV, morphine, vitamin B complex, Renagel, IV fluids, Ziagen. ASSESSMENT AND PLAN: He is quite ill. I will continue with treatment and care as per Renal, Infectious Disease. Diet, we will take a look at him and Neurology. We will continue with aggressive treatment and care on Raza Sagastume. We will check his labs tomorrow. Parag Brownlee DO MTDD
[2017-09-01] MEDS ORDERED: Vancomycin 1gm in NS 250ml 1 GM/250 ML BAG IVPB STA (11:57)
[2017-09-01] MEDS: Acyclovir 300 MG in Sodium Chloride 0.9% 100 ML IV SCH (15:35)
--- NOTE | 2017-09-01 15:40 | PN ---
DATE: 09/01/2017 PHYSICAL EXAMINATION GENERAL: The patient is in bed, no acute distress. VITAL SIGNS: He is having fevers above 100.8 and blood pressure is 150/60, respiratory rate 20, heart rate of 109. HEENT: Unremarkable. NECK: Supple. LUNGS: Have decreased breath sounds. HEART: Normal S1 and S2. ABDOMEN: Soft and nontender. LABORATORY DATA: There is a white count of 11,400, hemoglobin of 8, platelets of 398. Chemistries reveal a BUN of 27, creatinine of 4.0. Urinalysis is noted, and influenza is negative. Blood cultures are gram-positive cocci in clusters. Another blood culture is pending, also gram-positive cocci. The patient is currently on meropenem, was given vancomycin intermittently, also on IV acyclovir. ASSESSMENT AND PLAN: This is a 72-year-old male with past medical history of hypertension, prostate cancer, positive human immunodeficiency virus with a CD4 count of 349 in 03/2016, history of osteomyelitis and left first toe amputation in 08/2015, history of gout, left foot ulcer, pyelonephritis, Escherichia coli bacteremia, and the patient now is admitted with severe sepsis with a gram-positive cocci bacteremia and with renal failure and history of second toe gangrene, chronic renal failure on dialysis, and history of osteomyelitis of the first toe, and we will give a dose of vancomycin, repeat the blood cultures, and we will follow closely with you. Cesar Flowers MD
[2017-09-01] MEDS: Enoxaparin 30 mg Syringe SC SCH (15:51)
[2017-09-01] MEDS: Meropenem 500 MG in Sodium Chloride 0.9% 100 ML IVPB SCH (16:41)
[2017-09-01] MEDS: LamiVUDine 10 mg/ml Syringe PO SCH (18:26)
--- NOTE | 2017-09-01 19:23 | CP.PCM.PN ---
Subjective - Date & Time of Evaluation Date of Evaluation: 09/01/17 Time of Evaluation: 12:00 - Subjective Subjective: renal follow up note seen and examined on hd complains of pain all over Exam: vitals reviewed s1s2 present no icterus no resp distress no edema abd soft awake, oriented X1 flat affect A&P: ESRD/Sepsis syndrome/UTI/anemia/htn/hiv/PVD hd tts, done today and now back on schedule lytes reviewed anemia stable, aranesp weekly as opt continue binders, check phos levels continue bp meds on abx per primary team cautious with iv fluids Objective - Vital Signs/Intake and Output Vital Signs (last 24 hours): Temp Pulse Resp BP Pulse Ox 100.3 F H 89 20 150/65 95 09/01/17 08:40 09/01/17 08:40 09/01/17 08:40 09/01/17 08:40 09/01/17 08:40 Intake and Output: 09/01/17 09/02/17 18:59 06:59 Intake Total 0 Output Total 250 Balance -250 - Medications Medications: Current Medications Abacavir Sulfate (Ziagen) 600 mg PO DAILY [facility] Last Admin: 09/01/17 16:00 Dose: 600 mg Acetaminophen (Tylenol 325mg Tab) 650 mg PO Q4H [facility]N PRN Reason: Fever >100.4 F Enoxaparin Sodium (Lovenox) 30 mg SC DAILY [facility] PRN Reason: Protocol Last Admin: 09/01/17 15:51 Dose: 30 mg Home Med (Home Med) 1 unit PO DAILY [facility] Last Admin: 09/01/17 16:01 Dose: Not Given Sodium Chloride (Sodium Chloride 0.45%) 1,000 mls @ 60 mls/hr IV .[id number] [facility] Last Admin: 09/01/17 04:00 Dose: 60 mls/hr Meropenem 500 mg/ Sodium (Chloride) 100 mls @ 100 mls/hr IVPB Q24H [facility] PRN Reason: Protocol Last Admin: 09/01/17 16:41 Dose: 100 mls/hr Acyclovir 300 mg/ Sodium (Chloride) 100 mls @ 100 mls/hr IV DAILY [facility] PRN Reason: Protocol Last Admin: 09/01/17 15:35 Dose: 100 mls/hr Insulin Human Regular (Humulin R Med) 0 units SC ACHS [facility] PRN Reason: Protocol Last Admin: 09/01/17 18:31 Dose: Not Given Lamivudine (Epivir) 50 mg PO DAILY [facility] Last Admin: 09/01/17 18:26 Dose: 50 mg Losartan Potassium (Cozaar) 100 mg PO QPM [facility] Last Admin: 09/01/17 18:33 Dose: 100 mg Metoprolol Tartrate (Lopressor) 100 mg PO Q12 [facility] Last Admin: 09/01/17 15:51 Dose: Not Given Morphine Sulfate (Morphine) 1 mg IVP Q3H [facility] PRN Reason: Pain, moderate (4-7) Last Admin: 09/01/17 15:39 Dose: 1 mg Sevelamer HCl (Renagel) 800 mg PO TID [facility] Last Admin: 09/01/17 15:52 Dose: Not Given Tamsulosin HCl (Flomax) 0.4 mg PO DAILY [facility] Last Admin: 09/01/17 18:22 Dose: 0.4 mg Vitamin B Complex/Vit C/Folic Acid (Nephro-Christel) 1 tab PO 0800 [facility] Last Admin: 09/01/17 08:56 Dose: 1 tab - Labs Labs: 09/01/17 07:30 09/01/17 07:30 PT 12.9 SECONDS (9.4-12.5) H 08/30/17 19:07 INR 1.13 (0.93-1.08) H 08/30/17 19:07 APTT 38.2 Seconds (25.1-36.5) H 08/30/17 19:07
--- NOTE | 2017-09-01 20:48 | CP.PCM.CON ---
History of Present Illness - History of Present Illness History of Present Illness: 72 yr old male with a change in mental status for one week, pmh of htn , prostate ca, HIV (CD4 349) with VL <1.3 log, history of osteomyelitis of left first toe S/P amputation (2015), gout, history of left foot ulcers, history of pyelonephritis with E. coli bacteremia, S/P left foot 3rd digit chronic osteomyelitis S/P amputation and debridement, severe PAD S/P angioplasty of the left tibial artery was brought in to [facility] because of lethargy and fevers, which apparently started about a week ago. History is also obtained from record, please see dictation for further history and exam. Past Patient History - Infectious Disease Hx of Infectious Diseases: None - Tetanus Immunizations Tetanus Immunization: Up to Date - Past Medical History & Family History Past Medical History?: Yes - Past Social History Smoking Status: Never Smoked - CARDIAC Hx Pacemaker: No - PULMONARY Hx Chronic Obstructive Pulmonary Disease (COPD): Yes - NEUROLOGICAL Hx Vertigo: Yes - HEENT Hx HEENT Problems: No - RENAL Hx Renal Failure: Yes - ENDOCRINE/METABOLIC Hx Diabetes Mellitus Type 1: No Hx Diabetes Mellitus Type 2: No - HEMATOLOGICAL/ONCOLOGICAL Hx Blood Transfusions: No - INTEGUMENTARY Hx Dermatological Problems: Yes Hx Cellulitis: Yes Other/Comment: dry gangrene and osteomyelitis L foot - MUSCULOSKELETAL/RHEUMATOLOGICAL Hx Musculoskeletal Disorders: Yes - GASTROINTESTINAL Hx Clostridium Difficile: Yes Hx Colitis: Yes Hx Gastroesophageal Reflux: Yes - GENITOURINARY/GYNECOLOGICAL Hx Genitourinary Disorders: Yes Hx Prostate Cancer: Yes - PSYCHIATRIC Hx Substance Use: No - SURGICAL HISTORY Hx Amputation: Yes (L toes 1-3) Hx Angioplasty: Yes (L tibial artery ) Other/Comment: prostatectomy, incision and drainage of right hand abscess - ANESTHESIA Hx Anesthesia Reactions: No Hx Malignant Hyperthermia: No Meds Allergies/Adverse Reactions: Allergies Allergy/AdvReac Type Severity Reaction Status Date / Time banana Allergy SWELLING Verified 08/08/17 04:43 shrimp Allergy SWELLING Verified 08/08/17 04:43 - Medications Medications: Current Medications Abacavir Sulfate (Ziagen) 600 mg PO DAILY [facility] Last Admin: 08/31/17 12:22 Dose: 600 mg Enoxaparin Sodium (Lovenox) 30 mg SC DAILY [facility] PRN Reason: Protocol Last Admin: 08/31/17 10:01 Dose: 30 mg Home Med (Home Med) 1 unit PO DAILY [facility] Sodium Chloride (Sodium Chloride 0.45%) 1,000 mls @ 60 mls/hr IV .[id number] [facility] Last Admin: 09/01/17 04:00 Dose: 60 mls/hr Meropenem 500 mg/ Sodium (Chloride) 100 mls @ 100 mls/hr IVPB Q24H [facility] PRN Reason: Protocol Last Admin: 08/31/17 13:50 Dose: 100 mls/hr Acyclovir 300 mg/ Sodium (Chloride) 100 mls @ 100 mls/hr IV DAILY [facility] PRN Reason: Protocol Last Admin: 08/31/17 13:35 Dose: 100 mls/hr Insulin Human Regular (Humulin R Med) 0 units SC ACHS [facility] PRN Reason: Protocol Last Admin: 09/01/17 08:23 Dose: Not Given Lamivudine (Epivir) 50 mg PO DAILY [facility] Last Admin: 08/31/17 13:09 Dose: Not Given Losartan Potassium (Cozaar) 100 mg PO QPM [facility] Last Admin: 08/31/17 18:44 Dose: Not Given Metoprolol Tartrate (Lopressor) 100 mg PO Q12 [facility] Last Admin: 08/31/17 22:30 Dose: 100 mg Morphine Sulfate (Morphine) 1 mg IVP Q3H PRN PRN Reason: Pain, moderate (4-7) Last Admin: 09/01/17 09:48 Dose: 1 mg Sevelamer HCl (Renagel) 800 mg PO TID [facility] Last Admin: 08/31/17 18:44 Dose: Not Given Tamsulosin HCl (Flomax) 0.4 mg PO DAILY [facility] Vitamin B Complex/Vit C/Folic Acid (Nephro-Christel) 1 tab PO 0800 [facility] Last Admin: 09/01/17 08:56 Dose: 1 tab Results - Vital Signs Recent Vital Signs: Last Vital Signs Temp 100.3 F H 09/01/17 08:40 Pulse 89 09/01/17 08:40 Resp 20 09/01/17 08:40 BP 150/65 09/01/17 08:40 Pulse Ox 95 09/01/17 08:40 - Labs Result Diagrams: 09/01/17 07:30 09/01/17 07:30 Labs: Laboratory Results - last 24 hr 08/31/17 09/01/17 09/01/17 12:33 07:23 07:30 WBC 11.4 H D RBC 2.81 L Hgb 8.3 L Hct 26.9 L MCV 95.7 MCH 29.5 MCHC 30.9 L RDW 16.9 H Plt Count 398 MPV 10.4 Sodium Potassium Chloride Carbon Dioxide Anion Gap BUN Creatinine Est GFR ( Amer) Est GFR (Non-Af Amer) POC Glucose (mg/dL) 71 77 Random Glucose Calcium Phosphorus Total Bilirubin AST ALT Alkaline Phosphatase Total Protein Albumin Globulin Albumin/Globulin Ratio 09/01/17 07:30 WBC RBC Hgb Hct MCV MCH MCHC RDW Plt Count MPV Sodium 139 Potassium 3.5 L Chloride 99 Carbon Dioxide 31 Anion Gap 12 BUN 27 H Creatinine 4.0 H Est GFR ( Amer) 18 Est GFR (Non-Af Amer) 15 POC Glucose (mg/dL) Random Glucose 76 Calcium 9.7 Phosphorus 2.5 Total Bilirubin 0.4 AST 56 ALT 29 Alkaline Phosphatase 97 Total Protein 6.6 Albumin 2.8 L Globulin 3.8 Albumin/Globulin Ratio 0.7 L Assessment & Plan - Assessment and Plan (Free Text) Assessment: 72 yr old male with HIV, Sepsis, and most likely toxic metabolic encephalopathy , ESRD on dialysis. In light of HIV status and moderate cd 4 count, current count not available would recommend MRi Brain with contrast to investigate intracerebral process. PLease see dictation for further plan.
--- NOTE | 2017-09-01 23:00 | CON ---
DATE: HISTORY OF PRESENT ILLNESS: A 72-year-old man at bedside for consultation, evaluation and management of chronic diabetic right foot and ankle ulcerations. Patient had surgical debridement approximately 2 weeks' ago for his ulcerations and had amputation of his left second digit approximately 1 month ago. Patient was admitted from [facility]. 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 PAST SURGICAL HISTORY: Significant for prostatectomy, left tibial artery, angioplasty and had numerous pedal interventions for gangrenous toes and diabetic foot ulcerations. ALLERGIES: THE PATIENT HAS NO DRUG ALLERGIES BUT IS ALLERGIC TO SHRIMP AND BANANAS. FAMILY HISTORY: There is hypertension and diabetes. SOCIAL HISTORY: The patient denies illicit drug use. Denies IV drug use. Denies alcohol and never smoked. He was never . VITAL SIGNS: Revealed temperature of 100.3, pulse rate of 89, blood pressure of 150/65, respiratory rate of 20. Laboratory findings reveal white count of 11.4, down from 16.6 upon admission, hemoglobin of 8.3, hematocrit of 26.9, platelet count of 398. Current medications are noted on OCT. Foot MRI taken on August 10, 2017, reveals suspicious findings for osteomyelitis of the head of the left first metatarsal bone. There is severe Charcot neuropathy noted bilaterally. OBJECTIVE: Nonpalpable pedal pulses noted bilaterally. Absent pedal hair growth noted bilaterally. The patient is unable to detect 5.07 g monofilament wire testing bilaterally. Left second digit presents with resolving amputation with resolving ulceration from amputation has almost completely resolved. Right lower extremity presents with full-thickness ulcerations at the posterior right Achilles area. The base of the ulceration is a mixture of granular, necrotic, and fibrotic tissue. There is no purulence to suggest underlying abscess formation. There is no malodor. There also noted to be gangrenous necrotic ulcerations at the posterior at the dorsal medial aspect of the right foot as well as on the posterior medial side of the right foot. There is no drainage noted in these areas. There is no purulence. No signs of underlying abscess formation. ASSESSMENT: Full-thickness gangrenous ulcerations to the right ankle and foot secondary to longstanding diabetes. PLAN: Patient had vascular intervention approximately 2 weeks' ago; at which time, surgical debridement was performed on the right gangrenous ulcerations which have stagnated and resolving. Dr. Hernandez's note was read and appreciated. We will continue with antibiotics as per Infectious Disease. As far as his wounds are concerned, we will cleanse the wound with normal sterile saline and we will try to keep them hydrated to avoid desiccation and it will be changed daily. We will continue to offload both heels using the formal type Podus boots. Recommend vascular consult with Dr. Emmanuel Good to evaluate lower extremity perfusion; however, vascular intervention was performed approximately 2 weeks' ago. Podiatry will continue with palliative care. Jerrod Dunn DPM
--- NOTE | 2017-09-02 07:01 | CP.PCM.PN ---
Subjective - Date & Time of Evaluation Date of Evaluation: 09/02/17 Time of Evaluation: 06:58 - Subjective Subjective: Mr. jenkins was seen and examined at the bedside. He is awake, with confusion. He is unable to answer any questions and follow simple commands. He moves his bilateral upper and lower extremities spontaneously, with the right leg limited motion. He has bilateral feet dressings. He is on telesitter for patient safety. There was no untoward events overnight. Objective - Vital Signs/Intake and Output Vital Signs (last 24 hours): Temp Pulse Resp BP Pulse Ox 98.3 F 109 H 19 139/81 94 L 09/01/17 16:00 09/01/17 22:40 09/01/17 16:00 09/01/17 22:40 09/01/17 16:00 Intake and Output: 09/01/17 09/02/17 18:59 06:59 Intake Total 0 Output Total 250 100 Balance -250 -100 - Medications Medications: Current Medications Abacavir Sulfate (Ziagen) 600 mg PO DAILY [facility] Last Admin: 09/01/17 16:00 Dose: 600 mg Acetaminophen (Tylenol 325mg Tab) 650 mg PO Q4H PRN PRN Reason: Fever >100.4 F Enoxaparin Sodium (Lovenox) 30 mg SC DAILY [facility] PRN Reason: Protocol Last Admin: 09/01/17 15:51 Dose: 30 mg Home Med (Home Med) 1 unit PO DAILY [facility] Last Admin: 09/01/17 16:01 Dose: Not Given Sodium Chloride (Sodium Chloride 0.45%) 1,000 mls @ 60 mls/hr IV .[id number] [facility] Last Admin: 09/01/17 20:58 Dose: Not Given Meropenem 500 mg/ Sodium (Chloride) 100 mls @ 100 mls/hr IVPB Q24H [facility] PRN Reason: Protocol Last Admin: 09/01/17 16:41 Dose: 100 mls/hr Acyclovir 300 mg/ Sodium (Chloride) 100 mls @ 100 mls/hr IV DAILY [facility] PRN Reason: Protocol Last Admin: 09/01/17 15:35 Dose: 100 mls/hr Insulin Human Regular (Humulin R Med) 0 units SC ACHS [facility] PRN Reason: Protocol Last Admin: 09/01/17 22:38 Dose: Not Given Lamivudine (Epivir) 50 mg PO DAILY [facility] Last Admin: 09/01/17 18:26 Dose: 50 mg Losartan Potassium (Cozaar) 100 mg PO QPM [facility] Last Admin: 09/01/17 18:33 Dose: 100 mg Metoprolol Tartrate (Lopressor) 100 mg PO Q12 [facility] Last Admin: 09/01/17 22:40 Dose: 100 mg Morphine Sulfate (Morphine) 1 mg IVP Q3H PRN PRN Reason: Pain, moderate (4-7) Last Admin: 09/01/17 15:39 Dose: 1 mg Sevelamer HCl (Renagel) 800 mg PO TID [facility] Last Admin: 09/01/17 15:52 Dose: Not Given Tamsulosin HCl (Flomax) 0.4 mg PO DAILY [facility] Last Admin: 09/01/17 18:22 Dose: 0.4 mg Vitamin B Complex/Vit C/Folic Acid (Nephro-Christel) 1 tab PO 0800 [facility] Last Admin: 09/01/17 08:56 Dose: 1 tab - Labs Labs: 09/01/17 07:30 09/01/17 07:30 PT 12.9 SECONDS (9.4-12.5) H 08/30/17 19:07 INR 1.13 (0.93-1.08) H 08/30/17 19:07 APTT 38.2 Seconds (25.1-36.5) H 08/30/17 19:07 - Constitutional Appears: No Acute Distress - Head Exam Head Exam: NORMAL INSPECTION - Neurological Exam Neurological Exam: Awake Neuro motor strength exam: Left Upper Extremity: 3, Right Upper Extremity: 3, Left Lower Extremity: 2/1, Right Lower Extremity: 2/1 Additional comments: He is unable to answer questions and follow simple commands. Assessment and Plan (1) Acute metabolic encephalopathy Assessment & Plan: Case discussed with Dr. Torres, continue all current medical regimen. Follow up MRI of the brain and recommend to treat any underlying infection or abnormality of the electrolytes. Status: Acute
[2017-09-02] MEDS: Insulin Reg-MEDIUM-Coverage SC SCH ×4 (07:38→22:05)
[2017-09-02 07:49] LABS: HEMOGLOBIN 9.8 g/dL (14.0-18.0); MEAN CELL VOLUME 96.3 fl (80.0-105.0); MEAN CORPUSCULAR HEMOGLOBIN 30.3 pg (25.0-35.0); MEAN CORPUSCULAR HGB CONC 31.5 g/dl (31.0-37.0); MEAN PLATELET VOLUME 12.1 fl (7.0-11.0); RBC 3.23 10^6/uL (3.5-6.1); RED CELL DISTRIBUTION WIDTH 16.7 % (11.5-14.5); WHITE BLOOD COUNT 11.7 10^3/ul (4.5-11.0)
[2017-09-02 08:25] LABS: ALB/GLOB RATIO 0.7 (1.1-1.8); CALCIUM 10.1 mg/dL (8.4-10.5)
[2017-09-02] MEDS: Multivitamin Vitamin B Complex (Nephro-Vite) Tab PO SCH (08:53)
[2017-09-02] MEDS: Enoxaparin 30 mg Syringe SC SCH (09:00)
[2017-09-02] MEDS: Acyclovir 300 MG in Sodium Chloride 0.9% 100 ML IV SCH (09:22)
[2017-09-02] MEDS: LamiVUDine 10 mg/ml Syringe PO SCH (09:52)
[2017-09-02] MEDS: Meropenem 500 MG in Sodium Chloride 0.9% 100 ML IVPB SCH (12:24)
[2017-09-02] MEDS ORDERED: Vancomycin 500mg in NS 500 MG/100 ML BAG IVPB STA (13:52)
[2017-09-02] MEDS: Sodium Chloride 0.45% 1,000 ML IV SCH (14:11)
--- NOTE | 2017-09-02 14:18 | CP.PCM.PN ---
<José Antonio Quiñonez - Last Filed: 09/02/17 14:15> Subjective - Date & Time of Evaluation Date of Evaluation: 09/02/17 Time of Evaluation: 11:00 - Subjective Subjective: Podiatry Progress Note- Dr. Dunn/Dr. Caldwell 72 y.o male seen at bedside for right LE ulcerations and left 3rd digit partial amputation. Patient is seen resting at bedside. He is not oriented and appears to be confused. Patient dressing to the LE is clean, dry, and intact without strikethrough noted. Patient was seen wearing multipodus boots during the time of visitation. Objective - Vital Signs/Intake and Output Vital Signs (last 24 hours): Temp Pulse Resp BP Pulse Ox 101.1 F H 62 22 140/80 99 09/02/17 12:33 09/02/17 09:00 09/02/17 07:51 09/02/17 09:00 09/02/17 07:51 Intake and Output: 09/02/17 09/02/17 06:59 18:59 Output Total 100 Balance -100 - Medications Medications: Current Medications Abacavir Sulfate (Ziagen) 600 mg PO DAILY [facility] Last Admin: 09/02/17 08:59 Dose: 600 mg Acetaminophen (Tylenol 325mg Tab) 650 mg PO Q4H PRN PRN Reason: Fever >100.4 F Last Admin: 09/02/17 12:33 Dose: 650 mg Acetaminophen (Tylenol 650 Mg Supp) 650 mg RC Q6H PRN PRN Reason: Fever >100.4 F Enoxaparin Sodium (Lovenox) 30 mg SC DAILY [facility] PRN Reason: Protocol Last Admin: 09/02/17 09:00 Dose: 30 mg Home Med (Home Med) 1 unit PO DAILY [facility] Last Admin: 09/02/17 09:01 Dose: Not Given Sodium Chloride (Sodium Chloride 0.45%) 1,000 mls @ 60 mls/hr IV .[id number] [facility] Last Admin: 09/01/17 20:58 Dose: Not Given Meropenem 500 mg/ Sodium (Chloride) 100 mls @ 100 mls/hr IVPB Q24H [facility] PRN Reason: Protocol Last Admin: 09/02/17 12:24 Dose: 100 mls/hr Acyclovir 300 mg/ Sodium (Chloride) 100 mls @ 100 mls/hr IV DAILY [facility] PRN Reason: Protocol Last Admin: 09/02/17 09:22 Dose: 100 mls/hr Vancomycin HCl (Vancomycin 500mg In Ns) 500 mg in 100 mls @ 200 mls/hr IVPB STAT [facility] PRN Reason: Protocol Stop: 09/02/17 14:21 Insulin Human Regular (Humulin R Med) 0 units SC ACHS [facility] PRN Reason: Protocol Last Admin: 09/02/17 12:31 Dose: Not Given Lamivudine (Epivir) 50 mg PO DAILY [facility] Last Admin: 09/02/17 09:52 Dose: 50 mg Losartan Potassium (Cozaar) 100 mg PO QPM [facility] Last Admin: 09/01/17 18:33 Dose: 100 mg Metoprolol Tartrate (Lopressor) 100 mg PO Q12 [facility] Last Admin: 09/02/17 09:00 Dose: 100 mg Morphine Sulfate (Morphine) 1 mg IVP Q3H PRN PRN Reason: Pain, moderate (4-7) Last Admin: 09/01/17 15:39 Dose: 1 mg Sevelamer HCl (Renagel) 800 mg PO TID [facility] Last Admin: 09/02/17 14:02 Dose: Not Given Tamsulosin HCl (Flomax) 0.4 mg PO DAILY [facility] Last Admin: 09/02/17 09:00 Dose: 0.4 mg Vitamin B Complex/Vit C/Folic Acid (Nephro-Christel) 1 tab PO 0800 [facility] Last Admin: 09/02/17 08:53 Dose: 1 tab - Labs Labs: 09/02/17 06:30 09/02/17 06:30 PT 12.9 SECONDS (9.4-12.5) H 08/30/17 19:07 INR 1.13 (0.93-1.08) H 08/30/17 19:07 APTT 38.2 Seconds (25.1-36.5) H 08/30/17 19:07 - Constitutional Appears: Well, Non-toxic, No Acute Distress - Extremities Exam Additional comments: LEFT dressing is clean dry and intact. RIGHT LE FOCUS EXAMINATION: VASC: DP and PT nonpalpable. Temperature gradient cool to cool. CFT delayed. No edema noted to bilateral LE. DERM: Right: Ulceration noted to right medial malleolus with mixed fibrogranular base and erythematous rim. No malodor noted. Mild serosanguinous drainage noted. No purulent drainage noted. No tracking noted. No probe to bone. Second ulceration noted to lateral aspect of right heel with mixed fibrogranular base with hyperpigmented margins. Mild serosanguinous drainage noted. No malodor noted. No purulence noted. No tracking noted. No probe to bone. Mild erythema to margins <0.5cm. NEURO: gross and protective sensation diminished ORTHO: RIGHT medial aspect of the ankle and medial aspect of the rearfoot, posterior heel, and midfoot are moderately painful with palpation; gross midfoot collapse is appreciated secondary to Charcot. - Neurological Exam Neurological Exam: Awake - Psychiatric Exam Psychiatric exam: Normal Affect, Normal Mood Assessment and Plan - Assessment and Plan (Free Text) Assessment: 72 year old male patient right ulcerations and s/p left 3rd digit partial amputation Plan: Patient seen and evaluated Discussed plan in detail with Dr. Dunn Labs, charts, vitals reviewed (leukocytosis WBC=11.7 09/02/17, temperature 101.1F 09/02/16) Blood culture Preliminary on 08/30/17 shows Gram Pos Cocci In Clusters Repeat blood culture on 09/01/17 pending Dressing to left foot keep intact RLE was cleansed with saline and dressed with xeroform, ABD, and kerlix Wound culture of the RLE taken, ordered and sent to lab Continue with multipodus boots at all times while in bed Pain management per medicine Per ID, continue Meropenem with Vancomycin intermittently Podiatry will continue to follow patient while in house <Jerrod Dunn - Last Filed: 09/04/17 12:08> Objective - Vital Signs/Intake and Output Vital Signs (last 24 hours): Temp Pulse Resp BP Pulse Ox 97.9 F 89 18 141/85 96 09/04/17 06:00 09/04/17 06:00 09/04/17 06:00 09/04/17 06:00 09/04/17 06:00 Intake and Output: 09/04/17 09/04/17 06:59 18:59 Intake Total 360 Balance 360 - Medications Medications: Current Medications Abacavir Sulfate (Ziagen) 600 mg PO DAILY [facility] Last Admin: 09/03/17 10:51 Dose: 600 mg Acetaminophen (Tylenol 325mg Tab) 650 mg PO Q4H PRN PRN Reason: Fever >100.4 F Last Admin: 09/02/17 12:33 Dose: 650 mg Acetaminophen (Tylenol 650 Mg Supp) 650 mg RC Q6H PRN PRN Reason: Fever >100.4 F Last Admin: 09/03/17 22:07 Dose: 650 mg Enoxaparin Sodium (Lovenox) 30 mg SC DAILY [facility] PRN Reason: Protocol Last Admin: 09/03/17 10:51 Dose: 30 mg Home Med (Home Med) 1 unit PO DAILY [facility] Last Admin: 09/03/17 10:40 Dose: Not Given Meropenem 500 mg/ Sodium (Chloride) 100 mls @ 100 mls/hr IVPB Q24H [facility] PRN Reason: Protocol Last Admin: 09/03/17 12:21 Dose: 100 mls/hr Acyclovir 300 mg/ Sodium (Chloride) 100 mls @ 100 mls/hr IV DAILY [facility] PRN Reason: Protocol Last Admin: 09/03/17 10:50 Dose: 100 mls/hr Dextrose/Sodium Chloride (Dextrose 5%/0.9% Ns 1000 Ml) 1,000 mls @ 30 mls/hr IV .Q24H [facility] Last Admin: 09/03/17 12:21 Dose: 30 mls/hr Insulin Human Regular (Humulin R Med) 0 units SC ACHS [facility] PRN Reason: Protocol Last Admin: 09/04/17 08:18 Dose: Not Given Lamivudine (Epivir) 50 mg PO DAILY [facility] Last Admin: 09/03/17 10:52 Dose: 50 mg Losartan Potassium (Cozaar) 100 mg PO QPM [facility] Last Admin: 09/03/17 17:53 Dose: 100 mg Metoprolol Tartrate (Lopressor) 100 mg PO Q12 [facility] Last Admin: 09/03/17 21:53 Dose: 100 mg Morphine Sulfate (Morphine) 1 mg IVP Q3H PRN PRN Reason: Pain, moderate (4-7) Last Admin: 09/01/17 15:39 Dose: 1 mg Sevelamer HCl (Renagel) 800 mg PO TID [facility] Last Admin: 09/03/17 17:54 Dose: 800 mg Tamsulosin HCl (Flomax) 0.4 mg PO DAILY [facility] Last Admin: 09/03/17 10:51 Dose: 0.4 mg Vitamin B Complex/Vit C/Folic Acid (Nephro-Christel) 1 tab PO 0800 [facility] Last Admin: 09/03/17 10:51 Dose: 1 tab - Labs Labs: 09/04/17 05:30 09/04/17 05:30 PT 12.9 SECONDS (9.4-12.5) H 08/30/17 19:07 INR 1.13 (0.93-1.08) H 08/30/17 19:07 APTT 38.2 Seconds (25.1-36.5) H 08/30/17 19:07 Attending/Attestation - Attestation I have personally seen and examined this patient.: Yes I have fully participated in the care of the patient.: Yes I have reviewed all pertinent clinical information, including history, physical exam and plan: Yes
--- NOTE | 2017-09-02 23:14 | PN ---
DATE: 09/02/2017 SUBJECTIVE: The patient is in bed, no acute distress, nontoxic. He continues to have fevers. PHYSICAL EXAMINATION: VITAL SIGNS: Temperature is 100.6, pulse of 93, respiratory rate of 19, and blood pressure is 130/60. HEENT: Unremarkable. NECK: Supple. LUNGS: Have decreased breath sounds. HEART: Normal S1 and S2. ABDOMEN: Soft and nontender. LABORATORY DATA: Reveals a white count of 11,700, hemoglobin of 9, platelets of 371. Chemistries reveals a BUN of 21, creatinine of 3.3. Urinalysis is noted. Immunology is noted. Serology for influenza is negative. Microbiology reveals the blood cultures are coag-negative Staph by PNA FISH. The repeat blood cultures are negative. The patient is currently on meropenem and vancomycin intermittently. Dr. Torres, the neurologist's note from today is reviewed. ASSESSMENT AND PLAN: This is a 72-year-old male with past medical history of hypertension, prostate cancer, positive human immunodeficiency virus, T-cell, history of osteomyelitis, pyelonephritis, Escherichia coli bacteremia presenting now with severe sepsis, coag-negative Staph bacteremia. Repeat cultures negative and with a persistent fever on vancomycin and meropenem. We will follow closely with you. Cesar Flowers MD
[2017-09-03] MEDS ORDERED: Barium Sulfate Susp 2.1% w/v, 2.0% w/w 450 mL Bottle PO ONE (06:48)
--- NOTE | 2017-09-03 06:55 | CP.PCM.PN ---
Subjective - Date & Time of Evaluation Date of Evaluation: 09/03/17 Time of Evaluation: 06:52 - Subjective Subjective: Mr. Sagastume was seen and examined at the bedside. He is awake, but very confused. He is unable to verbalize any comprehensible words and unable to follow simple commands. His bilateral lower feet has bandages due to wounds and right leg is contracted. He remains on telesitter for patient sitter. There was no untoward events overnight. Objective - Vital Signs/Intake and Output Vital Signs (last 24 hours): Temp Pulse Resp BP Pulse Ox 100.6 F H 88 19 166/90 H 95 09/02/17 18:08 09/02/17 22:49 09/02/17 16:00 09/02/17 22:49 09/02/17 16:00 Intake and Output: 09/02/17 09/03/17 18:59 06:59 Output Total 100 Balance -100 - Medications Medications: Current Medications Abacavir Sulfate (Ziagen) 600 mg PO DAILY [facility] Last Admin: 09/02/17 08:59 Dose: 600 mg Acetaminophen (Tylenol 325mg Tab) 650 mg PO Q4H PRN PRN Reason: Fever >100.4 F Last Admin: 09/02/17 12:33 Dose: 650 mg Acetaminophen (Tylenol 650 Mg Supp) 650 mg RC Q6H PRN PRN Reason: Fever >100.4 F Last Admin: 09/02/17 18:08 Dose: 650 mg Enoxaparin Sodium (Lovenox) 30 mg SC DAILY [facility] PRN Reason: Protocol Last Admin: 09/02/17 09:00 Dose: 30 mg Home Med (Home Med) 1 unit PO DAILY [facility] Last Admin: 09/02/17 09:01 Dose: Not Given Sodium Chloride (Sodium Chloride 0.45%) 1,000 mls @ 60 mls/hr IV .[id number] [facility] Last Admin: 09/02/17 14:11 Dose: 60 mls/hr Meropenem 500 mg/ Sodium (Chloride) 100 mls @ 100 mls/hr IVPB Q24H [facility] PRN Reason: Protocol Last Admin: 09/02/17 12:24 Dose: 100 mls/hr Acyclovir 300 mg/ Sodium (Chloride) 100 mls @ 100 mls/hr IV DAILY [facility] PRN Reason: Protocol Last Admin: 09/02/17 09:22 Dose: 100 mls/hr Insulin Human Regular (Humulin R Med) 0 units SC ACHS [facility] PRN Reason: Protocol Last Admin: 09/02/17 22:05 Dose: Not Given Lamivudine (Epivir) 50 mg PO DAILY [facility] Last Admin: 09/02/17 09:52 Dose: 50 mg Losartan Potassium (Cozaar) 100 mg PO QPM [facility] Last Admin: 09/02/17 18:08 Dose: Not Given Metoprolol Tartrate (Lopressor) 100 mg PO Q12 [facility] Last Admin: 09/02/17 22:49 Dose: 100 mg Morphine Sulfate (Morphine) 1 mg IVP Q3H PRN PRN Reason: Pain, moderate (4-7) Last Admin: 09/01/17 15:39 Dose: 1 mg Sevelamer HCl (Renagel) 800 mg PO TID [facility] Last Admin: 09/02/17 18:47 Dose: Not Given Tamsulosin HCl (Flomax) 0.4 mg PO DAILY [facility] Last Admin: 09/02/17 09:00 Dose: 0.4 mg Vitamin B Complex/Vit C/Folic Acid (Nephro-Christel) 1 tab PO 0800 [facility] Last Admin: 09/02/17 08:53 Dose: 1 tab - Labs Labs: 09/02/17 06:30 09/02/17 06:30 PT 12.9 SECONDS (9.4-12.5) H 08/30/17 19:07 INR 1.13 (0.93-1.08) H 08/30/17 19:07 APTT 38.2 Seconds (25.1-36.5) H 08/30/17 19:07 - Constitutional Appears: No Acute Distress - Head Exam Head Exam: NORMAL INSPECTION - Neurological Exam Neurological Exam: Awake Neuro motor strength exam: Left Upper Extremity: 2/1, Right Upper Extremity: 2/1 , Left Lower Extremity: 2/1, Right Lower Extremity: 2/1 Additional comments: Neurological unchanged from previous examination. Assessment and Plan (1) Acute metabolic encephalopathy Assessment & Plan: Case discussed with Dr. Torres, continue all current medical, physical therapies. Recommends MRI of the brain with contrast to evaluate intracerebral process. Status: Acute
[2017-09-03 07:27] LABS: HEMOGLOBIN 10.1 g/dL (14.0-18.0); MEAN CELL VOLUME 96.1 fl (80.0-105.0); MEAN CORPUSCULAR HEMOGLOBIN 30.1 pg (25.0-35.0); MEAN CORPUSCULAR HGB CONC 31.4 g/dl (31.0-37.0); MEAN PLATELET VOLUME 10.9 fl (7.0-11.0); RBC 3.35 10^6/uL (3.5-6.1); RED CELL DISTRIBUTION WIDTH 16.9 % (11.5-14.5); WHITE BLOOD COUNT 11.6 10^3/ul (4.5-11.0)
--- NOTE | 2017-09-03 07:28 | PN ---
DATE: SUBJECTIVE: I see him in bed. He is not doing that well. He is getting more lethargic, more confused. He is now down to chopped on the diet, and he has to be fed. He is on IV fluids, Cozaar, Epivir, Flomax, insulin, Lopressor, Lovenox, Merrem IV, morphine as needed, vitamin B, Renagel, Tylenol, vancomycin, Ziagen, and acyclovir. He has 100.6 temperature, 88 pulse, 166/90 blood pressure, 92 respiratory rate, 95% O2 sat on room air. OBJECTIVE: GENERAL: He is atraumatic, normocephalic. He is alert and talking, but confused. HEENT: Mouth is dry. HEART: Regular rate. LUNGS: Decreased breath sounds. ABDOMEN: Soft. EXTREMITIES: He is contracted. LABORATORY DATA: He has a 11.7 white count, hemoglobin is 9.8, and platelets of 371. Sodium 138, potassium 4.3, BUN 21, creatinine 3.3. He is on dialysis. Sugar is 95, calcium is 10.1, total bili is 0.5, AST is 69, ALT is 36, alk phos 115, total protein 7.3. His urine was large. ASSESSMENT AND PLAN: He has urinary tract infection. He is being seen by multiple doctors, Infectious Disease, Neurology, Renal, Podiatry, Vascular. I do not think he is responding well to continue aggressive treatment and care on him. He has got multiple issues with sepsis to change in mentation to systemic inflammatory response syndrome to confusion to end-stage renal disease to hemodialysis to human immunodeficiency virus/urinary tract infection, and prostate cancer history. Parag Brownlee DO
[2017-09-03 07:35] LABS: ALB/GLOB RATIO 0.7 (1.1-1.8); ALBUMIN 3.1 g/dL (3.0-4.8); CALCIUM 10.2 mg/dL (8.4-10.5)
--- NOTE | 2017-09-03 08:36 | CON ---
DATE: 09/01/2017 NEUROLOGY CONSULTATION ATTENDING PROVIDER: Dr. Brownlee. HISTORY OF PRESENT ILLNESS: Mr. Raza Sagastume is a 72-year-old male with a past medical history of HIV, last CD4 count in 03/2016 of 349 with viral load less than 1.3 log, prostate cancer, history of osteomyelitis of the left first toe status post amputation in 08/2015, gout, history of cirrhosis, history of pyelonephritis, E coli bacteremia, status post left foot third digit chronic osteomyelitis, severe PAD, status post angioplasty of left tibial artery, brought in to [facility] on 08/30/2017 started a week ago. In the ER, the patient was not noted to have any seizures and was obtunded, but upon arrival to the floor and after receiving one dose of antibiotics, he became more talkative, but had some confusion in naming and repetition. There were no focal neurological signs at that point. There is no headache. There is no kind of Babinski sign. There is no diarrhea. No sign of chronic seizure. No urinary incontinence. No facial asymmetry. We obtain full review of systems because the patient's obtundation. HOSPITAL COURSE: As follows: ID was consulted and the patient was started on hemodialysis as he is an end-stage renal disease patient. He was carried on meropenem and continued on Epivir, Cozaar and insulin. In general, his current medications are Ziagen 600 mg p.o. daily, enoxaparin 30 mg subcu daily, sodium chloride, acyclovir 200 mg per hour IV daily, insulin as he has diabetes, Epivir mg p.o. daily, losartan, metoprolol, morphine, Renagel, and vitamin B complex. PHYSICAL EXAMINATION: VITAL SIGNS: Currently as follows; temperature 98.3, pulse 89, blood pressure 160/73, O2 sat 94 on 2 L oxygen. NEUROLOGIC: On exam, the patient is awake, but he is not alert, he is not oriented to person, place or time. Extraocular movements are intact. He does have some nystagmus bilaterally. There is no facial asymmetry. There is no Babinski sign. The patient moves purposefully, but not always to command and it appears that his motor is 4/5 limited by obtundation, upper and lower bilaterally. Deep tendon reflexes are +2, upper and lower bilaterally. There is myoclonus bilaterally of +3. Toes are downgoing. There is no clonus. He does have sign, positive for positive for suck and primitive signs as well. His speech is fine, although tangential. He was not able to draw a clock or anything like pentagon; however, he tracks . Cranial nerves II through XII are normal and intact. LABORATORY DATA: As follows, white count 11.4, RBC 2.8, hemoglobin 8.3, hematocrit 26.9. MCH 30.9. showed a left shift on 08/30/2017 at 21.7. 0.03. CAT scan was not done so far. IMPRESSION AND PLAN: This is a 72-year-old male with severe toxic encephalopathy, sepsis, human immunodeficiency virus, hypertension, diabetes type 1, who will need MRI of the brain with and without contrast to evaluate vegetative process. If MRI is negative, we will proceed with lumbar puncture. Thank you for this interesting consultation. Our team will follow. Valerie Torres MD
--- NOTE | 2017-09-03 08:48 | PN ---
DATE: 09/02/2017 SUBJECTIVE: I saw him resting comfortably in bed. He is more alert, he is more talkative, much better than when he came in, still not great yet, but improving, but he is still having a little bit of conversation. PHYSICAL EXAMINATION VITAL SIGNS: Temperature 98.5, 60 pulse, 143/82 blood pressure, 22 respiratory rate and his oxygen saturation is up to 99%, was 94 throughout the day. HEENT: Head is atraumatic, normocephalic. HEART: Regular rate. LUNGS: Decreased breath sounds bilaterally, mild congestion, changes with cough. ABDOMEN: Soft. EXTREMITIES: Lower extremity is mildly contracted with bandages on his feet. MEDICATIONS: He is currently on acyclovir, Cozaar, Epivir, Flomax, insulin, Lopressor, Lovenox, Merrem, morphine, Nephro-Christel, potassium replacement, Renagel, IV fluids, Tylenol, and Ziagen. LABORATORY DATA: He has 138 sodium; potassium is up to 4.3; creatinine is 3.3 which is better, creatinine was as high as 4, it is down to 3.3, he is on dialysis. His sugar is 106, calcium is 10.1, total bilirubin is 0.5, AST is 69, ALT is 36, alkaline phosphatase 115, total protein 7.3. urinary tract infection, negative influenza. ASSESSMENT AND PLAN: He is being seen by Neurology for his change in mentation, Dr. Flowers for Infectious Disease, Podiatry for his feet ulcers but he is improving. Continue with aggressive treatment and care and intravenous antibiotics, may get him out of bed to chair, get him some physical therapy, history of sepsis, change in mentation confusion, end-stage renal disease with hemodialysis, history of human immunodeficiency virus. He has got acute urinary tract infection and history of prostate . Parag Brownlee DO MTDD
[2017-09-03] MEDS: Insulin Reg-MEDIUM-Coverage SC SCH ×4 (09:10→22:30)
[2017-09-03] MEDS: Acyclovir 300 MG in Sodium Chloride 0.9% 100 ML IV SCH (10:50)
[2017-09-03] MEDS: Multivitamin Vitamin B Complex (Nephro-Vite) Tab PO SCH (10:51)
[2017-09-03] MEDS: Enoxaparin 30 mg Syringe SC SCH (10:51)
[2017-09-03] MEDS: LamiVUDine 10 mg/ml Syringe PO SCH (10:52)
[2017-09-03] MEDS ORDERED: Dextrose 50% SYRINGE Inj (50 ml) IVP STA (12:04)
--- NOTE | 2017-09-03 12:07 | CP.PCM.PN ---
Subjective - Date & Time of Evaluation Date of Evaluation: 09/03/17 Time of Evaluation: 12:04 - Subjective Subjective: Follow up Nephrology Consultation: Assessment: stable Altered mental status, sepsis with UTI hx of prostate CA Hypertensive Chronic Kidney Disease (I12.9) ESRD on HD via permacath (TTS) Anemia (D64.9), HTN (I12.9) HIV on HAART, PVD s/p angioplasty Plan plan for tomorrow as per TTS. nephrovite 1 tab/day aransep weekly for anemia 08/31/17. PRBC as needed not on VDRA since Ca on high side, check Vit D (34) /PTH/SPEP/CLYDE continue with binders for phos, check phos level in AM Hypertension control with meds as ordered. Patient on RAAS edyta as losartan ID following started flomax. continue with D5NS as with low glucose. d/w neuro about MRI brain: suggested to change to without mady contrast due to his ESRD/dialysis status and agreed Dose meds/antibiotics for ESRD status. Avoid fleets enema/magnesium based laxatives. Avoid nephrotoxins/NSAIDs/ iodinated contrast (unless needed emergently) Further work up/management as per primary team Thanks for allowing me to participate in care of your patient. Will follow patient with you. Please call if any Qs. d/w team Dr Yandel Arechiga Office: [phone] Chief Complaint; heel pain reason for consult: ESRD, HTN HPI: Pt is a 72 y/o M with hx of HIV on HAART, PVD s/p angioplasty, hypertension (10-15 years), ESRD on HD (via permacath) TTS @ [facility], left foot toe amputations, prostate CA initially admitted with AMS, fever and sepsis renal consult for ESRD, HTN management pt unable to provide hx due to AMS ROS: AMS hence unable Physical Examination: General Appearance: comfortable, in no acute respiratory distress, ill appearing Vitals reviewed and noted as below Head; Atraumatic, normocephalic ENT: no ulcers no thrush. Tongue is midline dry. Oropharynx: no rash or ulcers. EYES: Pupils are equal, round and reactive to light accommodation. Eye muscles and extraocular movement intact. Sclera is anicteric. Neck; supple no lymphadenopathy, no thyromegaly or bruit Lungs: Normal respiratory rate/effort. Breath sounds bilateral clear Heart: Normal rate. s1s2 normal. No rub or gallop. Extremities: no edema. No varicose veins. Neurological: Patient is confused Skin: Warm and dry. Normal turgor. No rash. Palpitation: Normal elasticity for age Abdomen: Abdomen is soft. Bowel sounds +. There is mild lower abdominal tenderness, no guarding/rigidity no organomegaly Psych: unable MSK: Digits and nails normal, left foot toe amputations in past. Rt foot in dressing. : kidney or bladder not palpable. Access: permacath and maturing left AVF Labs/imaging/EKG reviewed. Past medical history, past surgical history, family history, social history, allergy reviewed and noted as below Family hx: sister was on dialysis. Rest non-contributory Objective - Vital Signs/Intake and Output Vital Signs (last 24 hours): Temp Pulse Resp BP Pulse Ox 98.4 F 92 H 22 144/71 96 09/03/17 07:49 09/03/17 10:51 09/03/17 07:49 09/03/17 10:51 09/03/17 07:49 Intake and Output: 09/03/17 09/03/17 06:59 18:59 Output Total 100 Balance -100 - Medications Medications: Current Medications Abacavir Sulfate (Ziagen) 600 mg PO DAILY [facility] Last Admin: 09/03/17 10:51 Dose: 600 mg Acetaminophen (Tylenol 325mg Tab) 650 mg PO Q4H PRN PRN Reason: Fever >100.4 F Last Admin: 09/02/17 12:33 Dose: 650 mg Acetaminophen (Tylenol 650 Mg Supp) 650 mg RC Q6H PRN PRN Reason: Fever >100.4 F Last Admin: 09/02/17 18:08 Dose: 650 mg Enoxaparin Sodium (Lovenox) 30 mg SC DAILY [facility] PRN Reason: Protocol Last Admin: 09/03/17 10:51 Dose: 30 mg Home Med (Home Med) 1 unit PO DAILY [facility] Last Admin: 09/03/17 10:40 Dose: Not Given Meropenem 500 mg/ Sodium (Chloride) 100 mls @ 100 mls/hr IVPB Q24H [facility] PRN Reason: Protocol Last Admin: 09/02/17 12:24 Dose: 100 mls/hr Acyclovir 300 mg/ Sodium (Chloride) 100 mls @ 100 mls/hr IV DAILY [facility] PRN Reason: Protocol Last Admin: 09/03/17 10:50 Dose: 100 mls/hr Dextrose/Sodium Chloride (Dextrose 5%/0.9% Ns 1000 Ml) 1,000 mls @ 30 mls/hr IV .Q24H [facility] Insulin Human Regular (Humulin R Med) 0 units SC ACHS [facility] PRN Reason: Protocol Last Admin: 09/03/17 09:10 Dose: 1 units Lamivudine (Epivir) 50 mg PO DAILY [facility] Last Admin: 09/03/17 10:52 Dose: 50 mg Losartan Potassium (Cozaar) 100 mg PO QPM [facility] Last Admin: 09/02/17 18:08 Dose: Not Given Metoprolol Tartrate (Lopressor) 100 mg PO Q12 [facility] Last Admin: 09/03/17 10:51 Dose: 100 mg Morphine Sulfate (Morphine) 1 mg IVP Q3H PRN PRN Reason: Pain, moderate (4-7) Last Admin: 09/01/17 15:39 Dose: 1 mg Sevelamer HCl (Renagel) 800 mg PO TID [facility] Last Admin: 09/03/17 10:51 Dose: 800 mg Tamsulosin HCl (Flomax) 0.4 mg PO DAILY [facility] Last Admin: 09/03/17 10:51 Dose: 0.4 mg Vitamin B Complex/Vit C/Folic Acid (Nephro-Christel) 1 tab PO 0800 [facility] Last Admin: 09/03/17 10:51 Dose: 1 tab - Labs Labs: 09/03/17 06:00 09/03/17 06:00 PT 12.9 SECONDS (9.4-12.5) H 08/30/17 19:07 INR 1.13 (0.93-1.08) H 08/30/17 19:07 APTT 38.2 Seconds (25.1-36.5) H 08/30/17 19:07
[2017-09-03] MEDS: Dextrose 5%/0.9% NS 1,000 ML IV SCH (12:21)
[2017-09-03] MEDS: Meropenem 500 MG in Sodium Chloride 0.9% 100 ML IVPB SCH (12:21)
--- NOTE | 2017-09-03 19:09 | PN ---
DATE: 09/03/2017 SUBJECTIVE: The patient is in bed and the patient is responsive. He denies any headaches. He does have low-grade fevers. PHYSICAL EXAMINATION: VITAL SIGNS: Temperature of 98.4 today, yesterday T-max is 100.6, blood pressure 160/98, heart rate of 93, respiratory rate of 22. HEENT: Unremarkable. NECK: Supple. LUNGS: Decreased breath sounds. HEART: Normal S1 and S2. ABDOMEN: Soft, nontender. LABORATORY EXAMINATION: Reveals a white count of 11,000, hemoglobin of 10, platelets of 484. BUN of 28, creatinine of 4.2. Urinalysis is noted. Influenza is negative. Blood cultures, coag-negative Staph, JOVANI vancomycin and urine culture is Staph aureus. culture is Gram-positive cocci. The repeat blood cultures are no growth at [address] Arechiga's note is reviewed. Dr. Torres's note is reviewed. Dr. Brownlee's note is reviewed. ASSESSMENT AND PLAN: This is a 72-year-old male with past medical history of hypertension, prostate cancer, human immunodeficiency virus, history of osteomyelitis, pyelonephritis, Escherichia coli presenting with severe sepsis, coagulase-negative Staphylococcus bacteremia secondary either line to a midline access or the Shiley catheter. Repeat blood cultures are negative at this time. Currently on intermittent vancomycin and meropenem. We will check on the T-cells, HIV-PCR. The patient is scheduled for CAT scan of the head. CAT scan of the abdomen and pelvis. We will order vancomycin random level and make further recommendations. Check on the CAT scan of the abdomen and MRI. The patient also had an echo ordered to rule out endocarditis. The patient's MRI of the head was canceled, which is not clear. We will follow closely with you. Cesar Flowers MD
--- NOTE | 2017-09-03 19:40 | US ---
PROCEDURE: Lower extremity MARLENI exam HISTORY: Severe peripheral vascular disease. Nonhealing ulcers. PHYSICIAN(S): Emmanuel Good MD. FINDINGS: The right resting MARLENI is moderately abnormal, 0.58. The left resting MARLENI is normal, 1.20 The low thigh pressures and waveforms are relatively normal. The calf PVR waveforms augment normally. No significant gradients are noted across the thighs. There is a 40 mm gradient across the right knee. The right ankle and metatarsal waveforms are severely blunted. Findings are consistent with right popliteal, trifurcation, and/ or tibial disease. The left ankle and metatarsal waveforms are relatively normal. IMPRESSION: 1. Moderately abnormal right MARLENI at rest. 2. Right popliteal, trifurcation, and/ or tibial disease.
--- NOTE | 2017-09-03 20:27 | PN ---
DATE: 09/03/2017 SUBJECTIVE: A 72-year-old male seen for ulcerations to his right lower extremity and a necrotic postop amputation to his left third digit. The patient is seen in bed. He is not actively alert or speaking, he has just come back from having vascular intervention. I did speak with Dr. Emmanuel Good and unfortunately, at this time, the patient has poor peripheral vascular disease with no vascular options. PHYSICAL EXAMINATION: VITAL SIGNS: The patient's temperature was noted to be 98.4, pulse was 92, blood pressure is 144/71, respirations were 22, and pulse oximetry was 96%. MEDICATIONS: The patient's medications are noted on the OCT. ALLERGIES: NO DRUG ALLERGIES. ALLERGIES ARE TO BANANA AND TO SHRIMP. LABORATORY DATA: The patient's labs are reviewed. His white blood cell count today is 11.6, H and H is 10.1 and 32.2, and his platelets are 484. Chemistry shows a BUN and creatinine of 28 and 4.2. His glucose was 80. Microbiology shows the right leg also with Gram-positive coccyx and the blood cultures are negative after 48 hours. Clinically, the patient has nonpalpable pedal pulses to his feet bilateral. His right leg is contracted at the hip and at the knee and is very painful to try to move his leg and to straighten it out. He has necrotic ulcerations on the medial aspect of his right foot all along with talonavicular area, the medial ankle and extending proximally toward the dorsum of the foot and anterior of the ankle. This wound is fibronecrotic. There is no pus or fluctuance behind this wound; however, they are extremely painful for the patient. He also has necrotic eschars and wounds are nonstageable on his lateral right ankle and lateral heel. The patient has a necrotic post-amputation third digit stump, which is dry at this time on his left foot. ASSESSMENT: Severe peripheral vascular disease with right lower extremity contractures. PLAN OF TREATMENT: Podiatry recommends [id number] amputation for the right lower extremity since the leg is already judy and according to Dr. Good, there is no vascular . Wound care was done and the patient will be seen and follow. Suri Caldwell DPM
--- NOTE | 2017-09-03 22:30 | CP.PCM.PN ---
Subjective - Date & Time of Evaluation Date of Evaluation: 09/03/17 Time of Evaluation: 22:30 - Subjective Subjective: Patient was seen because temp was 101*F. Has no complaints. Medical record was reviewed. Is on Merem and Acyclovir. This 72 year old male was admitted with confusion, fever. Has PMH of ESRD on HD, anemia, HTN, HIV , sepsis, COPD, feet ulcers, amputation of toes, vertigo, cellulitis, osteomyelitis of left foot, C.Diff colitis, GERD, prostate cancer, I & D of right hand abscess , left tibial artery angioplasty. Objective - Vital Signs/Intake and Output Vital Signs (last 24 hours): Temp Pulse Resp BP Pulse Ox 101.6 F H 87 18 136/73 96 09/03/17 22:07 09/03/17 21:53 09/03/17 16:00 09/03/17 21:53 09/03/17 16:00 - Medications Medications: Current Medications Abacavir Sulfate (Ziagen) 600 mg PO DAILY [facility] Last Admin: 09/03/17 10:51 Dose: 600 mg Acetaminophen (Tylenol 325mg Tab) 650 mg PO Q4H PRN PRN Reason: Fever >100.4 F Last Admin: 09/02/17 12:33 Dose: 650 mg Acetaminophen (Tylenol 650 Mg Supp) 650 mg RC Q6H PRN PRN Reason: Fever >100.4 F Last Admin: 09/03/17 22:07 Dose: 650 mg Enoxaparin Sodium (Lovenox) 30 mg SC DAILY [facility] PRN Reason: Protocol Last Admin: 09/03/17 10:51 Dose: 30 mg Home Med (Home Med) 1 unit PO DAILY [facility] Last Admin: 09/03/17 10:40 Dose: Not Given Meropenem 500 mg/ Sodium (Chloride) 100 mls @ 100 mls/hr IVPB Q24H [facility] PRN Reason: Protocol Last Admin: 09/03/17 12:21 Dose: 100 mls/hr Acyclovir 300 mg/ Sodium (Chloride) 100 mls @ 100 mls/hr IV DAILY [facility] PRN Reason: Protocol Last Admin: 09/03/17 10:50 Dose: 100 mls/hr Dextrose/Sodium Chloride (Dextrose 5%/0.9% Ns 1000 Ml) 1,000 mls @ 30 mls/hr IV .Q24H [facility] Last Admin: 09/03/17 12:21 Dose: 30 mls/hr Insulin Human Regular (Humulin R Med) 0 units SC ACHS [facility] PRN Reason: Protocol Last Admin: 09/03/17 17:53 Dose: Not Given Lamivudine (Epivir) 50 mg PO DAILY [facility] Last Admin: 09/03/17 10:52 Dose: 50 mg Losartan Potassium (Cozaar) 100 mg PO QPM [facility] Last Admin: 09/03/17 17:53 Dose: 100 mg Metoprolol Tartrate (Lopressor) 100 mg PO Q12 [facility] Last Admin: 09/03/17 21:53 Dose: 100 mg Morphine Sulfate (Morphine) 1 mg IVP Q3H PRN PRN Reason: Pain, moderate (4-7) Last Admin: 09/01/17 15:39 Dose: 1 mg Sevelamer HCl (Renagel) 800 mg PO TID [facility] Last Admin: 09/03/17 17:54 Dose: 800 mg Tamsulosin HCl (Flomax) 0.4 mg PO DAILY [facility] Last Admin: 09/03/17 10:51 Dose: 0.4 mg Vitamin B Complex/Vit C/Folic Acid (Nephro-Christel) 1 tab PO 0800 [facility] Last Admin: 09/03/17 10:51 Dose: 1 tab - Labs Labs: 09/03/17 06:00 09/03/17 06:00 PT 12.9 SECONDS (9.4-12.5) H 08/30/17 19:07 INR 1.13 (0.93-1.08) H 08/30/17 19:07 APTT 38.2 Seconds (25.1-36.5) H 08/30/17 19:07 - Constitutional Appears: Well, No Acute Distress - Head Exam Head Exam: ATRAUMATIC, NORMAL INSPECTION, NORMOCEPHALIC - Eye Exam Eye Exam: Normal appearance - ENT Exam ENT Exam: Normal External Ear Exam - Neck Exam Neck Exam: Normal Inspection - Respiratory Exam Respiratory Exam: NORMAL BREATHING PATTERN - Cardiovascular Exam Cardiovascular Exam: absent: JVD - GI/Abdominal Exam GI & Abdominal Exam: absent: Distended - Rectal Exam Rectal Exam: Deferred - Exam Additional comments: Deferred. - Extremities Exam Extremities Exam: Normal Inspection - Back Exam Back Exam: NORMAL INSPECTION - Neurological Exam Neurological Exam: Altered - Psychiatric Exam Psychiatric exam: Normal Affect, Normal Mood - Skin Skin Exam: Normal Color Assessment and Plan - Assessment and Plan (Free Text) Assessment: Fever/Sepsis. HTN. HIV. COPD. GERD. Prostate cancer. ESRD on HD. Plan: Septic work up as per order. Continue present management as per PMD.
[2017-09-04 06:48] LABS: ALPHA-1-GLOBULIN (PEP) 0.6 g/dL (0.2-0.3)
[2017-09-04 06:57] LABS: HEMOGLOBIN 8.3 g/dL (14.0-18.0); MEAN CORPUSCULAR HEMOGLOBIN 29.6 pg (25.0-35.0); MEAN CORPUSCULAR HGB CONC 31.2 g/dl (31.0-37.0); MEAN PLATELET VOLUME 10.8 fl (7.0-11.0); RBC 2.8 10^6/uL (3.5-6.1); RED CELL DISTRIBUTION WIDTH 16.9 % (11.5-14.5); WHITE BLOOD COUNT 13.1 10^3/ul (4.5-11.0)
[2017-09-04 07:18] LABS: ALB/GLOB RATIO 0.7 (1.1-1.8); ALBUMIN 2.8 g/dL (3.0-4.8)
[2017-09-04] MEDS: Insulin Reg-MEDIUM-Coverage SC SCH ×4 (08:18→22:41)
--- NOTE | 2017-09-04 09:53 | PN ---
DATE: 09/04/2017 SUBJECTIVE: I saw him in dialysis. He is resting comfortably in a chair. He is alert, little bit slow today. He states he is hungry, better than he was the other day mentally. He is on Cozaar, dextrose, Epivir, Flomax, insulin, Lopressor, Lovenox, Merrem IV, morphine, Renagel, Tylenol, Ziagen, and Zovirax. PHYSICAL EXAMINATION: VITAL SIGNS: Temperature 99.6, was its highest 101.6 last night; pulse 82; blood pressure 138/81; respiratory rate 20; 99% O2 sat on 2 liters. HEENT: His head is atraumatic, normocephalic. Throat is dry. NECK: Supple. HEART: Regular rate. LUNGS: Decreased breath sounds. ABDOMEN: Soft. Positive bowel sounds. 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 He is trying to contract but he does not feel any way to fix that foot. LABORATORY DATA: He has 13,100 white count 8.3, hemoglobin, 26.6 hematocrit with 499 platelets. Sodium 140, potassium 4, BUN 40, creatinine 5.3 on dialysis. GFR is 11. Calcium is 10. Phosphorus 4.3. Total bilirubin is 0.4. AST is 45 and ALT is 37, alkaline phosphatase 99. ASSESSMENT: He has change in mentation, sepsis, systemic inflammatory response syndrome, confusion, end-stage renal disease with hemodialysis, human immunodeficiency virus, urinary tract infection, prostate cancer, history of right udzlq-oid-ovjn amputation. PLAN: We will continue with aggressive treatment and care. Our next step is iqdzu-aymu-buwnhivpiv of the right leg. I will discuss with Podiatry. I will call in Dr. Martinez, I can help with surgeon. Parag Brownlee DO MTDD
[2017-09-04] MEDS: Multivitamin Vitamin B Complex (Nephro-Vite) Tab PO SCH (13:14)
[2017-09-04] MEDS: Enoxaparin 30 mg Syringe SC SCH (13:15)
[2017-09-04] MEDS: Morphine 2 mg/ml ISec IVP PRN ×4 (13:15→22:16)
[2017-09-04] MEDS: Acyclovir 300 MG in Sodium Chloride 0.9% 100 ML IV SCH (13:17)
--- NOTE | 2017-09-04 14:35 | CARD ---
APPROVED REPORT EXAM: Two-dimensional and M-mode echocardiogram with Doppler and color Doppler. INDICATION Infection:Rule out subacute bacterial endocarditis 2D DIMENSIONS Left Atrium (2D)3.6 (1.6-4.0cm)IVSd1.2 (0.7-1.1cm) LVDd5.1 (3.9-5.9cm)PWd1.2 (0.7-1.1cm) LVDs3.6 (2.5-4.0cm)FS (%) 28.3 % LVEF (%)54.6 (>50%) Aortic Valve AoV Peak Zcoglwgg277.0cm/Nathan Peak GR.16mmHg Mitral Valve MV E Afuguits86.3cm/sMV A Rstybmwz072.0cm/sE/A ratio0.8 TDI E/Lateral E'0.0E/Medial E'0.0 Tricuspid Valve TR Peak Jorvxfki847ta/sRAP [id number] Peak Gr.29mmHg [id number] LEFT VENTRICLE The left ventricle is normal size. There is mild concentric left ventricular hypertrophy. The left ventricular function is normal. The left ventricular ejection fraction is within the normal range. There is normal LV segmental wall motion. RIGHT VENTRICLE The right ventricle is normal size. The right ventricular systolic function is normal. ATRIA The left atrium size is normal. The right atrium size is normal. The interatrial septum is intact with no evidence for an atrial septal defect. AORTIC VALVE The aortic valve is severely sclerotic. There is mild to moderate aortic regurgitation. Hemodynamically significant valvular aortic stenosis cannot be excluded. MITRAL VALVE The mitral valve is mildly thickened. There is no mitral valve regurgitation noted. TRICUSPID VALVE The tricuspid valve is normal in structure. There is mild to moderate tricuspid regurgitation. PULMONIC VALVE The pulmonic valve is not well visualized. GREAT VESSELS The aortic root is normal in size. The IVC is normal in size and collapses >50% with inspiration. PERICARDIAL EFFUSION There is no pleural effusion. There is no pericardial effusion. <Conclusion> Technically limited study. Chamber sizes appear within normal limits. Mild concentric LVH. Normal LV systolic function. Sclerotic aortic valve, cannot exclude significant aortic stenosis. Mild to moderate AI. Mild to moderate TR. Cannot excllude valvularvegetation. If clinical suspicion for endocardiits is high, consider DEE DEE imaging.
[2017-09-04] MEDS: Meropenem 500 MG in Sodium Chloride 0.9% 100 ML IVPB SCH (15:00)
[2017-09-04] MEDS: LamiVUDine 10 mg/ml Syringe PO SCH (15:56)
--- NOTE | 2017-09-04 16:38 | CP.PCM.CON ---
History of Present Illness - History of Present Illness History of Present Illness: GENERAL SURGERY CONSULT NOTE FOR DR. HELLER 72yo M with PMHx of HIV, ESRD on HD, prostate cancer s/p prostatectomy, DM, HTN , COPD, osteomyelitis of left foot. Patient is confused and only AAOx1. He did not answer any questions except what is his name. All information is obtained from medical record. Patient was initially admitted on 08/30/17 from [facility] rehab for fever and AMS. He was confused, refusing meds and worse from his baseline mental status. He also has chronic diabetic right foot and ankle ulcers. He had surgical debridment about 3 weeks ago and had amputations of left 2nd digit about 1 month ago. He was being followed by podiatry. Podiatry spoke with Dr. Good and patient has poor peripheral vascular disease with no vascular options. Podiatry recommends above the knee amputation since leg is already judy. PMHx: HIV, ESRD on HD, prostate cancer, GERD, anemia, DM, HTN, COPD, vertigo, osteomyelitis of left foot, C diff, colitis Surgeries: amputation of left 1-3 toes, prostatectomy, left tibial artery angioplasty, numerous interventions for gangrenous toes and foot ulcerations Allergies: banana, shrimp Review of Systems - Review of Systems Systems not reviewed;Unavailable: Altered Mental Status Past Patient History - Infectious Disease Hx of Infectious Diseases: None - Tetanus Immunizations Tetanus Immunization: Up to Date - Past Medical History & Family History Past Medical History?: Yes - Past Social History Smoking Status: Never Smoked - CARDIAC Hx Pacemaker: No - PULMONARY Hx Chronic Obstructive Pulmonary Disease (COPD): Yes - NEUROLOGICAL Hx Vertigo: Yes - HEENT Hx HEENT Problems: No - RENAL Hx Renal Failure: Yes - ENDOCRINE/METABOLIC Hx Diabetes Mellitus Type 1: No Hx Diabetes Mellitus Type 2: No - HEMATOLOGICAL/ONCOLOGICAL Hx Blood Transfusions: No - INTEGUMENTARY Hx Dermatological Problems: Yes Hx Cellulitis: Yes Other/Comment: dry gangrene and osteomyelitis L foot - MUSCULOSKELETAL/RHEUMATOLOGICAL Hx Musculoskeletal Disorders: Yes - GASTROINTESTINAL Hx Clostridium Difficile: Yes Hx Colitis: Yes Hx Gastroesophageal Reflux: Yes - GENITOURINARY/GYNECOLOGICAL Hx Genitourinary Disorders: Yes Hx Prostate Cancer: Yes - PSYCHIATRIC Hx Substance Use: No - SURGICAL HISTORY Hx Amputation: Yes (L toes 1-3) Hx Angioplasty: Yes (L tibial artery ) Other/Comment: prostatectomy, incision and drainage of right hand abscess - ANESTHESIA Hx Anesthesia Reactions: No Hx Malignant Hyperthermia: No Meds Allergies/Adverse Reactions: Allergies Allergy/AdvReac Type Severity Reaction Status Date / Time banana Allergy SWELLING Verified 08/08/17 04:43 shrimp Allergy SWELLING Verified 08/08/17 04:43 - Medications Medications: Current Medications Abacavir Sulfate (Ziagen) 600 mg PO DAILY [facility] Last Admin: 09/04/17 13:14 Dose: 600 mg Acetaminophen (Tylenol 325mg Tab) 650 mg PO Q4H PRN PRN Reason: Fever >100.4 F Last Admin: 09/02/17 12:33 Dose: 650 mg Acetaminophen (Tylenol 650 Mg Supp) 650 mg RC Q6H PRN PRN Reason: Fever >100.4 F Last Admin: 09/03/17 22:07 Dose: 650 mg Enoxaparin Sodium (Lovenox) 30 mg SC DAILY [facility] PRN Reason: Protocol Last Admin: 09/04/17 13:15 Dose: 30 mg Home Med (Home Med) 1 unit PO DAILY [facility] Last Admin: 09/04/17 13:16 Dose: Not Given Meropenem 500 mg/ Sodium (Chloride) 100 mls @ 100 mls/hr IVPB Q24H [facility] PRN Reason: Protocol Last Admin: 09/04/17 15:00 Dose: 100 mls/hr Acyclovir 300 mg/ Sodium (Chloride) 100 mls @ 100 mls/hr IV DAILY [facility] PRN Reason: Protocol Last Admin: 09/04/17 13:17 Dose: 100 mls/hr Dextrose/Sodium Chloride (Dextrose 5%/0.9% Ns 1000 Ml) 1,000 mls @ 30 mls/hr IV .Q24H [facility] Last Admin: 09/03/17 12:21 Dose: 30 mls/hr Insulin Human Regular (Humulin R Med) 0 units SC ACHS [facility] PRN Reason: Protocol Last Admin: 09/04/17 13:16 Dose: Not Given Lamivudine (Epivir) 50 mg PO DAILY [facility] Last Admin: 09/04/17 15:56 Dose: 50 mg Losartan Potassium (Cozaar) 100 mg PO QPM [facility] Last Admin: 09/03/17 17:53 Dose: 100 mg Metoprolol Tartrate (Lopressor) 100 mg PO Q12 [facility] Last Admin: 09/04/17 13:14 Dose: 100 mg Morphine Sulfate (Morphine) 1 mg IVP Q3H PRN PRN Reason: Pain, moderate (4-7) Last Admin: 09/04/17 15:35 Dose: 1 mg Sevelamer HCl (Renagel) 800 mg PO TID [facility] Last Admin: 09/04/17 15:56 Dose: 800 mg Tamsulosin HCl (Flomax) 0.4 mg PO DAILY [facility] Last Admin: 09/04/17 13:14 Dose: 0.4 mg Vitamin B Complex/Vit C/Folic Acid (Nephro-Christel) 1 tab PO 0800 [facility] Last Admin: 09/04/17 13:14 Dose: 1 tab Physical Exam - Constitutional Appears: No Acute Distress, Older Than Stated Age, Confused, Chronically Ill - Respiratory Exam Respiratory Exam: NORMAL BREATHING PATTERN. absent: Respiratory Distress Additional comments: Right permacath - Cardiovascular Exam Cardiovascular Exam: +S1, +S2 - GI/Abdominal Exam GI & Abdominal Exam: Soft. absent: Distended, Tenderness - Extremities Exam Additional comments: contractures of both lower extremities both legs and feet warm Right ankle dressing clean/dry/intact Left foot: 1-3 toes amputated - Neurological Exam Neurological exam: Alert Additional comments: Only oriented to person Did not answer questions Results - Vital Signs Recent Vital Signs: Last Vital Signs Temp 97.9 F 09/04/17 06:00 Pulse 107 H 09/04/17 13:14 Resp 18 09/04/17 06:00 BP 160/90 H 09/04/17 13:14 Pulse Ox 96 09/04/17 06:00 - Labs Result Diagrams: 09/04/17 05:30 09/04/17 05:30 Labs: Laboratory Results - last 24 hr 09/01/17 09/01/17 09/03/17 07:30 08:30 06:00 WBC RBC Hgb Hct MCV MCH MCHC RDW Plt Count MPV Sodium Potassium Chloride Carbon Dioxide Anion Gap BUN Creatinine Est GFR ( Amer) Est GFR (Non-Af Amer) POC Glucose (mg/dL) Random Glucose Calcium Phosphorus Total Bilirubin AST ALT Alkaline Phosphatase Total Protein Albumin Albumin (PEP) 2.0 L Globulin Albumin/Globulin Ratio Xwbxk-9-Zplztvpsi 0.6 H Yntyd-5-Mwtiwcoru 0.9 Bcir-9-Blsedxwb 0.2 L Tign-0-Jqqiohxo 0.3 Gamma Globulins 1.6 Abnorm Protein Band 1 TEST NOT PERFORMED Abnorm Protein Band 2 TEST NOT PERFORMED Abnorm Protein Band 3 TEST NOT PERFORMED Calcium (PTH Intact) 9.0 PTH w/Ion &Tot Calcium 24 Random Vancomycin CLYDE & SPEP Interp See note Serum Immunofixation Not detected Cryptococcus Ag Screen Not detected 09/03/17 09/04/17 09/04/17 22:06 05:30 05:30 WBC 13.1 H RBC 2.80 L Hgb 8.3 L Hct 26.6 L MCV 95.0 MCH 29.6 MCHC 31.2 RDW 16.9 H Plt Count 499 H MPV 10.8 Sodium Potassium Chloride Carbon Dioxide Anion Gap BUN Creatinine Est GFR ( Amer) Est GFR (Non-Af Amer) POC Glucose (mg/dL) 86 Random Glucose Calcium Phosphorus Total Bilirubin AST ALT Alkaline Phosphatase Total Protein Albumin Albumin (PEP) Globulin Albumin/Globulin Ratio Fubvw-6-Nbtepjwaz Vejov-3-Ezrpxjnci Nnnq-4-Jlmdssqr Zhtm-1-Elsqabxj Gamma Globulins Abnorm Protein Band 1 Abnorm Protein Band 2 Abnorm Protein Band 3 Calcium (PTH Intact) PTH w/Ion &Tot Calcium Random Vancomycin 16.6 L CLYDE & SPEP Interp Serum Immunofixation Cryptococcus Ag Screen 09/04/17 09/04/17 05:30 07:17 WBC RBC Hgb Hct MCV MCH MCHC RDW Plt Count MPV Sodium 140 Potassium 4.0 Chloride 105 Carbon Dioxide 25 Anion Gap 14 BUN 40 H Creatinine 5.3 H Est GFR ( Amer) 13 Est GFR (Non-Af Amer) 11 POC Glucose (mg/dL) 70 Random Glucose 90 Calcium 10.0 Phosphorus 4.3 Total Bilirubin 0.4 AST 45 ALT 37 Alkaline Phosphatase 99 Total Protein 6.8 Albumin 2.8 L Albumin (PEP) Globulin 4.0 Albumin/Globulin Ratio 0.7 L Qrkpp-2-Cqhqabbnl Jrlqe-1-Mejmtqipc Frsv-8-Bwhaxpfa Dtar-8-Uzqkhhbt Gamma Globulins Abnorm Protein Band 1 Abnorm Protein Band 2 Abnorm Protein Band 3 Calcium (PTH Intact) PTH w/Ion &Tot Calcium Random Vancomycin CLYDE & SPEP Interp Serum Immunofixation Cryptococcus Ag Screen Assessment & Plan - Assessment and Plan (Free Text) Assessment: 72yo M with PMHx of HIV, ESRD on HD, prostate cancer s/p prostatectomy, DM, HTN , COPD, osteomyelitis of left foot with severe peripheral vascular disease and right contractures. Surgery consulted for right AKA. - Febrile tmax 101.6 yesterday - Leukocytosis WBC 13.1 - Wound cx right leg: VRE - Possible AKA - Will discuss plan with Dr. Juan Leach PGY-3
--- NOTE | 2017-09-04 18:12 | PN ---
DATE: SUBJECTIVE: A 72-year-old male seen at bedside for severe diabetic arterial ulcerations to his right lower extremity and status post amputation to his left third digit. Patient is not answering questions and he is not alert. VITAL SIGNS: Patient's vital signs revealed temperature of 97.9, pulse rate of 89, blood pressure of 141/85, respiratory rate of 18. LABORATORY FINDINGS: Reveal a white count of 13.1, hemoglobin of 8.3, hematocrit of 26.6, platelet count of 499. Right lower extremity ulcerations are growing VRE on culture taken on 09/02. Arterial Dopplers performed on 09/03 revealed moderately abnormal right MARLENI at rest and right popliteal trifurcation and/or tibial disease. OBJECTIVE: Nonpalpable pedal pulses noted bilaterally. Right leg is severely contracted at the hip and ipsbl-ylu-xzcp and is very painful if moved at all. He has full thickness necrotic gangrenous ulcerations on the posterior aspect of his right ankle as well as along the medial aspect of his ankle and his medial foot. The ulcerations branch out dorsally on his right foot. Base of the wound is primarily fibronecrotic with gangrenous tissue. There is noted to be minimal drainage and there is no purulence noted. There is also noted to be full-thickness necrotic ulceration on his right heel. The left third toe presents with a necrotic digital stump, which is dry and shows no signs of acute bacterial infection at this time. ASSESSMENT: Diabetic with severe peripheral vascular disease with right lower extremity contractions. Patient's wounds were cleansed with normal sterile saline. We will apply Xeroform and a dry sterile dressing to the right lower extremity wounds. We will apply dry sterile dressing to the left third digit. Patient has extreme pain upon dressing changes and any attempt to straighten his leg. Vascular intervention is not feasible at this time and above-knee amputation for the right lower leg is recommended. Patient will be seen and followed daily. Jerrod Dunn DPM
[2017-09-04] MEDS: Dextrose 5%/0.9% NS 1,000 ML IV SCH (18:43)
--- NOTE | 2017-09-04 19:06 | CP.PCM.PN ---
Subjective - Date & Time of Evaluation Date of Evaluation: 09/04/17 Time of Evaluation: 13:00 - Subjective Subjective: Follow up Nephrology Consultation: Assessment: stable Altered mental status, sepsis with UTI hx of prostate CA Hypertensive Chronic Kidney Disease (I12.9) ESRD on HD via permacath (TTS) Anemia (D64.9), HTN (I12.9) HIV on HAART, PVD s/p angioplasty Plan plan for today as per TTS. nephrovite 1 tab/day aransep weekly for anemia 08/31/17. PRBC as needed not on VDRA since Ca on high side, work up Vit D (34) /PTH/SPEP/CLYDE neg. will check PTH-rp as well continue with binders for phos Hypertension control with meds as ordered. Patient on RAAS edyta as losartan ID following started flomax. continue with D5NS as with low glucose. d/c IVF once oral intake good. MRI brain pending Dose meds/antibiotics for ESRD status. Avoid fleets enema/magnesium based laxatives. Avoid nephrotoxins/NSAIDs/ iodinated contrast (unless needed emergently) Further work up/management as per primary team Thanks for allowing me to participate in care of your patient. Will follow patient with you. Please call if any Qs. d/w team Dr Yandel Arechiga Office: [phone] Chief Complaint; heel pain reason for consult: ESRD, HTN HPI: Pt is a 72 y/o M with hx of HIV on HAART, PVD s/p angioplasty, hypertension (10-15 years), ESRD on HD (via permacath) TTS @ [facility], left foot toe amputations, prostate CA initially admitted with AMS, fever and sepsis renal consult for ESRD, HTN management pt unable to provide hx due to AMS ROS: AMS hence unable. remains confused Physical Examination: General Appearance: comfortable, in no acute respiratory distress, ill appearing Vitals reviewed and noted as below Head; Atraumatic, normocephalic ENT: no ulcers no thrush. Tongue is midline dry. Oropharynx: no rash or ulcers. EYES: Pupils are equal, round and reactive to light accommodation. Eye muscles and extraocular movement intact. Sclera is anicteric. Neck; supple no lymphadenopathy, no thyromegaly or bruit Lungs: Normal respiratory rate/effort. Breath sounds bilateral clear Heart: Normal rate. s1s2 normal. No rub or gallop. Extremities: no edema. No varicose veins. Neurological: Patient is confused and delirious. Skin: Warm and dry. Normal turgor. No rash. Palpitation: Normal elasticity for age Abdomen: Abdomen is soft. Bowel sounds +. There is mild lower abdominal tenderness, no guarding/rigidity no organomegaly Psych: unable MSK: Digits and nails normal, left foot toe amputations in past. Rt foot in dressing. : kidney or bladder not palpable. Access: permacath and maturing left AVF Labs/imaging/EKG reviewed. Past medical history, past surgical history, family history, social history, allergy reviewed and noted as below Family hx: sister was on dialysis. Rest non-contributory Objective - Vital Signs/Intake and Output Vital Signs (last 24 hours): Temp Pulse Resp BP Pulse Ox 97.9 F 107 H 18 160/90 H 96 09/04/17 06:00 09/04/17 13:14 09/04/17 06:00 09/04/17 13:14 09/04/17 06:00 - Medications Medications: Current Medications Abacavir Sulfate (Ziagen) 600 mg PO DAILY [facility] Last Admin: 09/04/17 13:14 Dose: 600 mg Acetaminophen (Tylenol 325mg Tab) 650 mg PO Q4H PRN PRN Reason: Fever >100.4 F Last Admin: 09/02/17 12:33 Dose: 650 mg Acetaminophen (Tylenol 650 Mg Supp) 650 mg RC Q6H PRN PRN Reason: Fever >100.4 F Last Admin: 09/03/17 22:07 Dose: 650 mg Enoxaparin Sodium (Lovenox) 30 mg SC DAILY [facility] PRN Reason: Protocol Last Admin: 09/04/17 13:15 Dose: 30 mg Home Med (Home Med) 1 unit PO DAILY [facility] Last Admin: 09/04/17 13:16 Dose: Not Given Meropenem 500 mg/ Sodium (Chloride) 100 mls @ 100 mls/hr IVPB Q24H [facility] PRN Reason: Protocol Last Admin: 09/04/17 15:00 Dose: 100 mls/hr Acyclovir 300 mg/ Sodium (Chloride) 100 mls @ 100 mls/hr IV DAILY [facility] PRN Reason: Protocol Last Admin: 09/04/17 13:17 Dose: 100 mls/hr Dextrose/Sodium Chloride (Dextrose 5%/0.9% Ns 1000 Ml) 1,000 mls @ 30 mls/hr IV .Q24H [facility] Last Admin: 09/04/17 18:43 Dose: 30 mls/hr Insulin Human Regular (Humulin R Med) 0 units SC ACHS [facility] PRN Reason: Protocol Last Admin: 09/04/17 16:59 Dose: Not Given Lamivudine (Epivir) 50 mg PO DAILY [facility] Last Admin: 09/04/17 15:56 Dose: 50 mg Losartan Potassium (Cozaar) 100 mg PO QPM [facility] Last Admin: 09/04/17 18:43 Dose: 100 mg Metoprolol Tartrate (Lopressor) 100 mg PO Q12 [facility] Last Admin: 09/04/17 13:14 Dose: 100 mg Morphine Sulfate (Morphine) 1 mg IVP Q3H PRN PRN Reason: Pain, moderate (4-7) Last Admin: 09/04/17 18:44 Dose: 1 mg Sevelamer HCl (Renagel) 800 mg PO TID [facility] Last Admin: 09/04/17 18:44 Dose: 800 mg Tamsulosin HCl (Flomax) 0.4 mg PO DAILY [facility] Last Admin: 09/04/17 13:14 Dose: 0.4 mg Vitamin B Complex/Vit C/Folic Acid (Nephro-Christel) 1 tab PO 0800 [facility] Last Admin: 09/04/17 13:14 Dose: 1 tab - Labs Labs: 09/04/17 05:30 09/04/17 05:30 PT 12.9 SECONDS (9.4-12.5) H 08/30/17 19:07 INR 1.13 (0.93-1.08) H 08/30/17 19:07 APTT 38.2 Seconds (25.1-36.5) H 08/30/17 19:07
--- NOTE | 2017-09-05 03:37 | PN ---
DATE: 09/04/2017 SUBJECTIVE: The patient seen earlier this morning in no acute distress, nontoxic. OBJECTIVE: VITAL SIGNS: Temperature is 98, blood pressure is 101/70, respiratory rate of 18. HEENT: Unremarkable. NECK: Supple. LUNGS: Have decreased breath sounds. HEART: Normal S1, S2. ABDOMEN: Soft. Laboratory examination reveals a white count of 13,000, hemoglobin of 8, platelets of 499. Chemistries reveals a BUN of 40, creatinine of 5.3. Urinalysis is noted and random vancomycin level of 16.6. Cryptococcus antigen is negative. Influenza is negative. Microbiology reveals the leg has VRE. Blood cultures have coag-negative staph. MRSA in the urine, strep viridans in the urine. Current medications reveals the patient to be on meropenem. Patient is on acyclovir and vancomycin intermittently. Patient's MRI of the brain is still pending, now reordered again at this time by Dr. Yang. ASSESSMENT: This is a 72-year-old male seen earlier today with past medical history of hypertension, prostate cancer, positive human immunodeficiency virus, history of osteomyelitis, history of pyelonephritis with Escherichia. coli presenting on this admission with severe sepsis with coag negative staph, bacteremia secondary to a midline access reported at [facility]. Repeat cultures are negative, on intermittent vancomycin, meropenem and vancomycin level is adequate.. Patient is also on acyclovir, awaiting for MRI of brain. Patient has been afebrile with repeat blood cultures negative and the right leg culture VRE most likely a colonizer and coag-negative staph, still concerned about endocarditis. Patient had an echo today read by Dr. Jaramillo, cannot exclude vegetation, will need a DEE DEE. We will also order a vancomycin intermittently. We will follow with you. Cesar Flowers MD
[2017-09-05 06:39] LABS: HEMOGLOBIN 8.1 g/dL (14.0-18.0); MEAN CELL VOLUME 95.1 fl (80.0-105.0); MEAN CORPUSCULAR HEMOGLOBIN 28.6 pg (25.0-35.0); MEAN CORPUSCULAR HGB CONC 30.1 g/dl (31.0-37.0); MEAN PLATELET VOLUME 10.8 fl (7.0-11.0); RBC 2.83 10^6/uL (3.5-6.1); RED CELL DISTRIBUTION WIDTH 16.9 % (11.5-14.5); WHITE BLOOD COUNT 9.8 10^3/ul (4.5-11.0)
[2017-09-05 07:08] LABS: % CD4 (T HELPER CELL) 9 Percent (30-61); % CD8 (SUPPRESSOR T CELL) 60 Percent (12-42); ABSOLUTE CD4 CELLS 267 Cells/mcL (490-1740); ABSOLUTE CD8 CELLS 1821 Cells/mcL (180-1170); ABSOLUTE LYMPHOCYTES 3015 Cells/mcL (850-3900); HELPER/SUPPRESSOR RATIO 0.15 Ratio (0.86-5.00)
[2017-09-05 07:18] LABS: ALB/GLOB RATIO 0.7 (1.1-1.8); ALBUMIN 2.7 g/dL (3.0-4.8); CALCIUM 9.2 mg/dL (8.4-10.5)
--- NOTE | 2017-09-05 07:57 | CP.PCM.PN ---
Subjective - Date & Time of Evaluation Date of Evaluation: 09/05/17 Time of Evaluation: 07:56 - Subjective Subjective: Mr. Sagastume was seen and examined at the bedside. He is awake with no verbal response except for moaning and facial grimacing due to tactile stimuli. He is unable to follow simple commands. He is on contact isolation for his right foot wound. He is also on telesitter for patient safety. There was no untoward events overnight. Objective - Vital Signs/Intake and Output Vital Signs (last 24 hours): Temp Pulse Resp BP Pulse Ox 98.9 F 78 20 138/77 95 09/05/17 04:00 09/05/17 01:00 09/05/17 01:00 09/04/17 22:04 09/04/17 16:00 Intake and Output: 09/05/17 09/05/17 06:59 18:59 Intake Total 360 0 Output Total 50 200 Balance 310 -200 - Medications Medications: Current Medications Abacavir Sulfate (Ziagen) 600 mg PO DAILY [facility] Last Admin: 09/04/17 13:14 Dose: 600 mg Acetaminophen (Tylenol 325mg Tab) 650 mg PO Q4H PRN PRN Reason: Fever >100.4 F Last Admin: 09/02/17 12:33 Dose: 650 mg Acetaminophen (Tylenol 650 Mg Supp) 650 mg RC Q6H PRN PRN Reason: Fever >100.4 F Last Admin: 09/05/17 01:05 Dose: 650 mg Enoxaparin Sodium (Lovenox) 30 mg SC DAILY [facility] PRN Reason: Protocol Last Admin: 09/04/17 13:15 Dose: 30 mg Home Med (Home Med) 1 unit PO DAILY [facility] Last Admin: 09/04/17 13:16 Dose: Not Given Meropenem 500 mg/ Sodium (Chloride) 100 mls @ 100 mls/hr IVPB Q24H [facility] PRN Reason: Protocol Last Admin: 09/04/17 15:00 Dose: 100 mls/hr Acyclovir 300 mg/ Sodium (Chloride) 100 mls @ 100 mls/hr IV DAILY [facility] PRN Reason: Protocol Last Admin: 09/04/17 13:17 Dose: 100 mls/hr Dextrose/Sodium Chloride (Dextrose 5%/0.9% Ns 1000 Ml) 1,000 mls @ 30 mls/hr IV .Q24H [facility] Last Admin: 09/04/17 18:43 Dose: 30 mls/hr Insulin Human Regular (Humulin R Med) 0 units SC ACHS [facility] PRN Reason: Protocol Last Admin: 09/04/17 22:41 Dose: Not Given Lamivudine (Epivir) 50 mg PO DAILY [facility] Last Admin: 09/04/17 15:56 Dose: 50 mg Losartan Potassium (Cozaar) 100 mg PO QPM [facility] Last Admin: 09/04/17 18:43 Dose: 100 mg Metoprolol Tartrate (Lopressor) 100 mg PO Q12 [facility] Last Admin: 09/04/17 22:04 Dose: 100 mg Morphine Sulfate (Morphine) 1 mg IVP Q3H PRN PRN Reason: Pain, moderate (4-7) Last Admin: 09/04/17 22:16 Dose: 1 mg Sevelamer HCl (Renagel) 800 mg PO TID [facility] Last Admin: 09/04/17 18:44 Dose: 800 mg Tamsulosin HCl (Flomax) 0.4 mg PO DAILY [facility] Last Admin: 09/04/17 13:14 Dose: 0.4 mg Vitamin B Complex/Vit C/Folic Acid (Nephro-Christel) 1 tab PO 0800 [facility] Last Admin: 09/04/17 13:14 Dose: 1 tab - Labs Labs: 09/05/17 06:00 09/05/17 06:00 PT 12.9 SECONDS (9.4-12.5) H 08/30/17 19:07 INR 1.13 (0.93-1.08) H 08/30/17 19:07 APTT 38.2 Seconds (25.1-36.5) H 08/30/17 19:07 - Constitutional Appears: No Acute Distress - Head Exam Head Exam: NORMAL INSPECTION - Neurological Exam Neurological Exam: Awake Neuro motor strength exam: Left Upper Extremity: 2/1, Right Upper Extremity: 0, Left Lower Extremity: 3, Right Lower Extremity: 3 Additional comments: Neurological unchanged from previous examination. Assessment and Plan (1) Acute metabolic encephalopathy Assessment & Plan: Case discussed with Dr. Torres, continue all current medical, speech therapies. Recommend physical therapy for passive exercise and strengthening. Follow up MRI of the brain. Status: Acute
--- NOTE | 2017-09-05 08:00 | PN ---
DATE: SUBJECTIVE: I saw Raza in bed. He is little bit more lethargic, not really responsive to conversation. I think he is getting worse. I know his right leg is very contracted and he needs a above-knee amputation, waiting for Surgery and Podiatry to get that arranged, hopefully before the weekend. He is also septic, end-stage renal disease with hemodialysis. He has got HIV. He has got history of prostate cancer, history of osteomyelitis, right now he is septic and he is in trouble. PHYSICAL EXAMINATION: VITAL SIGNS: He has got 101.3 temperature, 78 pulse, 138/77 blood pressure, 20 respiratory rate. HEENT: Head: Atraumatic, normocephalic. Mouth is dry. HEART: Regular rate. LUNGS: Decreased breath sounds. ABDOMEN: Soft, the legs are contracted. LABORATORY DATA: He has a 140 sodium, potassium 4.0, BUN 40, creatinine 5.3, last sugar was 86, calcium is 10, phosphorous 4.3, total bili is 0.4, AST is 45, ALT is 37 and phos 99, total protein 6.8. White count is down to 9.8 which is better, it was as high as 16. His hemoglobin dropped to 8.1. If it drops in the 7, I will transfuse him. Hematocrit 26.9, platelets 414. Also, has a urinary tract infection. ASSESSMENT AND PLAN: He has got multiple issues. He is being seen by multiple physicians. Infectious Disease, Renal, Surgery, Podiatry, Vascular. He will probably need to have a right AKA and will need to arrange it. Parag Brownlee DO
[2017-09-05] MEDS: Insulin Reg-MEDIUM-Coverage SC SCH ×4 (08:14→22:19)
[2017-09-05] MEDS ORDERED: Morphine 4 mg/ml ISec IVP PRN (08:15)
--- NOTE | 2017-09-05 09:50 | MRI ---
PROCEDURE: MRI BRAIN WITHOUT CONTRAST HISTORY: Altered mental status COMPARISON: None. TECHNIQUE: Multiplanar, multisequence MR images of the brain were obtained without intravenous contrast enhancement. FINDINGS: HEMORRHAGE: None DWI: No evidence of an acute or early subacute infarction. BRAIN PARENCHYMA: No mass effect or edema. Chronic microvascular changes are seen in the periventricular white matter. There is also a small area of encephalomalacia in the left middle cerebellar peduncle. VENTRICLES: Unremarkable. No hydrocephalus. CRANIUM: Unremarkable. ORBITS: Grossly unremarkable. PARANASAL SINUSES/MASTOIDS: Clear VASCULAR SYSTEM: Skull base flow voids intact. OTHER FINDINGS: None. IMPRESSION: Chronic microvascular changes in the periventricular white matter and left middle cerebellar peduncle
[2017-09-05] MEDS ORDERED: Dextrose 50% SYRINGE Inj (50 ml) IVP STA (10:00)
[2017-09-05] MEDS ORDERED: Dextrose 50% SYRINGE Inj (50 ml) ONE (10:02)
--- NOTE | 2017-09-05 10:03 | RAD ---
HISTORY: labored breathing COMPARISON: 08/30/2017 FINDINGS: LUNGS: No active pulmonary disease. PLEURA: No significant pleural effusion identified, no pneumothorax apparent. CARDIOVASCULAR: Mild cardiomegaly OSSEOUS STRUCTURES: No significant abnormalities. VISUALIZED UPPER ABDOMEN: Normal. OTHER FINDINGS: Right-sided dialysis catheter IMPRESSION: No active disease.
[2017-09-05 10:08] LABS: ARTERIAL BLOOD GAS HCO3 30.6 mmol/L (21-28); ARTERIAL BLOOD GAS O2 CAPACITY 12.1 mL/dl (16-24); ARTERIAL BLOOD GAS O2 CONTENT 12.1 ML/dl (15-23); ARTERIAL BLOOD GAS PCO2 44 mm/Hg (35-45); ARTERIAL BLOOD GAS PH 7.45 (7.35-7.45)
[2017-09-05] MEDS ORDERED: Dextrose 50% SYRINGE Inj (50 ml) IVP ONE (10:25)
--- NOTE | 2017-09-05 11:03 | CP.PCM.PN ---
Subjective - Date & Time of Evaluation Date of Evaluation: 09/05/17 Time of Evaluation: 09:30 - Subjective Subjective: Surgery Progress note. Dr. Martinez Pt seen and examined at bedside. Patient had a rapid response called this morning for decreased responsiveness. Patient became hypoxic when he returned from MRI Brain, in the setting of receiving Ativan for agitation. Unable to obtain 12-point ROS at this time. Objective - Vital Signs/Intake and Output Vital Signs (last 24 hours): Temp Pulse Resp BP Pulse Ox 99.8 F H 80 20 100/47 L 98 09/05/17 06:00 09/05/17 06:00 09/05/17 06:00 09/05/17 06:00 09/05/17 06:00 Intake and Output: 09/05/17 09/05/17 06:59 18:59 Intake Total 360 0 Output Total 50 200 Balance 310 -200 - Medications Medications: Current Medications Abacavir Sulfate (Ziagen) 600 mg PO DAILY [facility] Last Admin: 09/04/17 13:14 Dose: 600 mg Acetaminophen (Tylenol 325mg Tab) 650 mg PO Q4H PRN PRN Reason: Fever >100.4 F Last Admin: 09/02/17 12:33 Dose: 650 mg Acetaminophen (Tylenol 650 Mg Supp) 650 mg RC Q6H PRN PRN Reason: Fever >100.4 F Last Admin: 09/05/17 01:05 Dose: 650 mg Darbepoetin Mario (Aranesp) 60 mcg IVP ONCE ONE Stop: 09/06/17 09:03 Enoxaparin Sodium (Lovenox) 30 mg SC DAILY [facility] PRN Reason: Protocol Last Admin: 09/04/17 13:15 Dose: 30 mg Home Med (Home Med) 1 unit PO DAILY [facility] Last Admin: 09/04/17 13:16 Dose: Not Given Meropenem 500 mg/ Sodium (Chloride) 100 mls @ 100 mls/hr IVPB Q24H [facility] PRN Reason: Protocol Last Admin: 09/04/17 15:00 Dose: 100 mls/hr Acyclovir 300 mg/ Sodium (Chloride) 100 mls @ 100 mls/hr IV DAILY [facility] PRN Reason: Protocol Last Admin: 09/04/17 13:17 Dose: 100 mls/hr Dextrose/Sodium Chloride (Dextrose 5%/0.9% Ns 1000 Ml) 1,000 mls @ 30 mls/hr IV .Q24H [facility] Last Admin: 09/04/17 18:43 Dose: 30 mls/hr Insulin Human Regular (Humulin R Med) 0 units SC ACHS [facility] PRN Reason: Protocol Last Admin: 09/05/17 08:14 Dose: Not Given Lamivudine (Epivir) 50 mg PO DAILY [facility] Last Admin: 09/04/17 15:56 Dose: 50 mg Losartan Potassium (Cozaar) 100 mg PO QPM [facility] Last Admin: 09/04/17 18:43 Dose: 100 mg Metoprolol Tartrate (Lopressor) 100 mg PO Q12 [facility] Last Admin: 09/04/17 22:04 Dose: 100 mg Morphine Sulfate (Morphine) 1 mg IVP Q3H PRN PRN Reason: Pain, moderate (4-7) Sevelamer HCl (Renagel) 800 mg PO TID [facility] Last Admin: 09/04/17 18:44 Dose: 800 mg Tamsulosin HCl (Flomax) 0.4 mg PO DAILY [facility] Last Admin: 09/04/17 13:14 Dose: 0.4 mg Vitamin B Complex/Vit C/Folic Acid (Nephro-Christel) 1 tab PO 0800 [facility] Last Admin: 09/04/17 13:14 Dose: 1 tab - Labs Labs: 09/05/17 06:00 09/05/17 06:00 PT 12.9 SECONDS (9.4-12.5) H 08/30/17 19:07 INR 1.13 (0.93-1.08) H 08/30/17 19:07 APTT 38.2 Seconds (25.1-36.5) H 08/30/17 19:07 - Head Exam Head Exam: ATRAUMATIC, NORMAL INSPECTION, NORMOCEPHALIC - ENT Exam ENT Exam: Mucous Membranes Moist - Extremities Exam Additional comments: bilateral lower extremity contractures noted. feet warm bilaterally Dressing clean, dry and intact - Neurological Exam Additional comments: Lethargic this morning. Withdraws from sternal rub. Assessment and Plan - Assessment and Plan (Free Text) Assessment: 72yo M with severe peripheral vascular disease. Surgery consulted for possible R AKA - Had family discussions today. They are unsure if they would like to proceed with surgery. - Pending family decision, we will plan for OR on Sunday, 09/10 - continue to medically maximize Further recs as per Dr. Juan Diego PGY1 surgery pager: [phone]
--- NOTE | 2017-09-05 11:08 | CP.PCM.PN ---
<Edu Cano - Last Filed: 09/05/17 11:22> Subjective - Date & Time of Evaluation Date of Evaluation: 09/05/17 Time of Evaluation: 09:51 - Subjective Subjective: Rapid Response note for 368-1 Rapid response called to room 368-1 at 9:49AM for altered mental status and oxygen desaturation. CLAY CASTER responded immediately. Patient is a 72yo male with history of ESRD on HD, prostate cancer, anemia, hypertension, HIV and PVD that was admitted for sepsis secondary to UTI/lower extremity wound. STAT EKG, ABG and CXR were ordered. Patient was placed on nonrebreather and his O2 saturation was noted to be > 92%. He was arousable however ROS was limited due to baseline dementia. He was noted to have received 1mg of ativan prior to going for an MRI. Blood sugar was noted to be in the 70's and he received a total of 2 amps of D5 in addition to being on D5W at 30cc/hr. ABG was reviewed and he was subsequently placed on 4L NC with o2sat noted to be > 90%. PMD notified. Physical: Appearance: chronically ill Head: Atraumatic, normocephalic Heart: S1, S2, no murmurs/rubs/gallops Lungs: no wheezing/rales/ronchi Abd: soft, nontender, nondistended Extremities: RLE chronically contracted Assessment/plan 72yo male with ESRD, hx of prostate ca, HTN, anemia, HIV, PVD, dementia presents with altered mental status and sepsis secondary to UTI/leg ulcerations. Acute change in mental status likely secondary to ativan prior to MRI. -HOB > 45' -ABG reviewed; patient was originally placed on nonrebreather however switched to 4L NC and was saturating > 90% -CXR reviewed; no apparent active disease -EKG reviewed; no acute ST-T wave changes -Continue with current abx as per ID -Fingersticks q4h; received 2amps of D5 and is currently on D5W at 30cc/hr; blood sugar originally noted to be in the 70's -Recommend avoiding sedating medications -PMD notified Patient seen and case discussed/reviewed with attending, Dr. Trevino Objective - Vital Signs/Intake and Output Vital Signs (last 24 hours): Temp Pulse Resp BP Pulse Ox 99.8 F H 80 20 100/47 L 98 09/05/17 06:00 09/05/17 06:00 09/05/17 06:00 09/05/17 06:00 09/05/17 06:00 Intake and Output: 09/05/17 09/05/17 06:59 18:59 Intake Total 360 0 Output Total 50 200 Balance 310 -200 - Medications Medications: Current Medications Abacavir Sulfate (Ziagen) 600 mg PO DAILY [facility] Last Admin: 09/04/17 13:14 Dose: 600 mg Acetaminophen (Tylenol 325mg Tab) 650 mg PO Q4H PRN PRN Reason: Fever >100.4 F Last Admin: 09/02/17 12:33 Dose: 650 mg Acetaminophen (Tylenol 650 Mg Supp) 650 mg RC Q6H PRN PRN Reason: Fever >100.4 F Last Admin: 09/05/17 01:05 Dose: 650 mg Darbepoetin Mario (Aranesp) 60 mcg IVP ONCE ONE Stop: 09/06/17 09:03 Enoxaparin Sodium (Lovenox) 30 mg SC DAILY [facility] PRN Reason: Protocol Last Admin: 09/04/17 13:15 Dose: 30 mg Home Med (Home Med) 1 unit PO DAILY [facility] Last Admin: 09/04/17 13:16 Dose: Not Given Meropenem 500 mg/ Sodium (Chloride) 100 mls @ 100 mls/hr IVPB Q24H [facility] PRN Reason: Protocol Last Admin: 09/04/17 15:00 Dose: 100 mls/hr Acyclovir 300 mg/ Sodium (Chloride) 100 mls @ 100 mls/hr IV DAILY [facility] PRN Reason: Protocol Last Admin: 09/04/17 13:17 Dose: 100 mls/hr Dextrose/Sodium Chloride (Dextrose 5%/0.9% Ns 1000 Ml) 1,000 mls @ 30 mls/hr IV .Q24H [facility] Last Admin: 09/04/17 18:43 Dose: 30 mls/hr Insulin Human Regular (Humulin R Med) 0 units SC ACHS [facility] PRN Reason: Protocol Last Admin: 09/05/17 08:14 Dose: Not Given Lamivudine (Epivir) 50 mg PO DAILY [facility] Last Admin: 09/04/17 15:56 Dose: 50 mg Losartan Potassium (Cozaar) 100 mg PO QPM [facility] Last Admin: 09/04/17 18:43 Dose: 100 mg Metoprolol Tartrate (Lopressor) 100 mg PO Q12 [facility] Last Admin: 09/04/17 22:04 Dose: 100 mg Morphine Sulfate (Morphine) 1 mg IVP Q3H PRN PRN Reason: Pain, moderate (4-7) Sevelamer HCl (Renagel) 800 mg PO TID [facility] Last Admin: 09/04/17 18:44 Dose: 800 mg Tamsulosin HCl (Flomax) 0.4 mg PO DAILY [facility] Last Admin: 09/04/17 13:14 Dose: 0.4 mg Vitamin B Complex/Vit C/Folic Acid (Nephro-Christel) 1 tab PO 0800 [facility] Last Admin: 09/04/17 13:14 Dose: 1 tab - Labs Labs: 09/05/17 06:00 09/05/17 06:00 PT 12.9 SECONDS (9.4-12.5) H 08/30/17 19:07 INR 1.13 (0.93-1.08) H 08/30/17 19:07 APTT 38.2 Seconds (25.1-36.5) H 08/30/17 19:07 <Diego Trevino - Last Filed: 09/05/17 12:24> Objective - Vital Signs/Intake and Output Vital Signs (last 24 hours): Temp Pulse Resp BP Pulse Ox 99.8 F H 80 20 100/47 L 98 09/05/17 06:00 09/05/17 06:00 09/05/17 06:00 09/05/17 06:00 09/05/17 06:00 Intake and Output: 09/05/17 09/05/17 06:59 18:59 Intake Total 360 0 Output Total 50 200 Balance 310 -200 - Medications Medications: Current Medications Abacavir Sulfate (Ziagen) 600 mg PO DAILY [facility] Last Admin: 09/05/17 11:26 Dose: Not Given Acetaminophen (Tylenol 325mg Tab) 650 mg PO Q4H PRN PRN Reason: Fever >100.4 F Last Admin: 09/02/17 12:33 Dose: 650 mg Acetaminophen (Tylenol 650 Mg Supp) 650 mg RC Q6H PRN PRN Reason: Fever >100.4 F Last Admin: 09/05/17 01:05 Dose: 650 mg Darbepoetin Mario (Aranesp) 60 mcg IVP ONCE ONE Stop: 09/06/17 09:03 Enoxaparin Sodium (Lovenox) 30 mg SC DAILY [facility] PRN Reason: Protocol Last Admin: 09/05/17 11:58 Dose: 30 mg Home Med (Home Med) 1 unit PO DAILY [facility] Last Admin: 09/05/17 11:26 Dose: Not Given Meropenem 500 mg/ Sodium (Chloride) 100 mls @ 100 mls/hr IVPB Q24H [facility] PRN Reason: Protocol Last Admin: 09/05/17 11:57 Dose: 100 mls/hr Acyclovir 300 mg/ Sodium (Chloride) 100 mls @ 100 mls/hr IV DAILY [facility] PRN Reason: Protocol Last Admin: 09/04/17 13:17 Dose: 100 mls/hr Dextrose/Sodium Chloride (Dextrose 5%/0.9% Ns 1000 Ml) 1,000 mls @ 30 mls/hr IV .Q24H [facility] Last Admin: 09/04/17 18:43 Dose: 30 mls/hr Insulin Human Regular (Humulin R Med) 0 units SC ACHS [facility] PRN Reason: Protocol Last Admin: 09/05/17 11:56 Dose: Not Given Lamivudine (Epivir) 50 mg PO DAILY [facility] Last Admin: 09/05/17 11:25 Dose: Not Given Losartan Potassium (Cozaar) 100 mg PO QPM [facility] Last Admin: 09/04/17 18:43 Dose: 100 mg Metoprolol Tartrate (Lopressor) 100 mg PO Q12 [facility] Last Admin: 09/05/17 11:26 Dose: Not Given Morphine Sulfate (Morphine) 1 mg IVP Q3H PRN PRN Reason: Pain, moderate (4-7) Sevelamer HCl (Renagel) 800 mg PO TID [facility] Last Admin: 09/05/17 11:26 Dose: Not Given Tamsulosin HCl (Flomax) 0.4 mg PO DAILY [facility] Last Admin: 09/05/17 11:25 Dose: Not Given Vitamin B Complex/Vit C/Folic Acid (Nephro-Christel) 1 tab PO 0800 [facility] Last Admin: 09/05/17 11:26 Dose: Not Given - Labs Labs: 09/05/17 06:00 01/17/18 06:00 PT 12.9 SECONDS (9.4-12.5) H 08/30/17 19:07 INR 1.13 (0.93-1.08) H 08/30/17 19:07 APTT 38.2 Seconds (25.1-36.5) H 08/30/17 19:07 Attending/Attestation - Attestation I have personally seen and examined this patient.: Yes I have fully participated in the care of the patient.: Yes I have reviewed all pertinent clinical information, including history, physical exam and plan: Yes
[2017-09-05] MEDS: LamiVUDine 10 mg/ml Syringe PO SCH (11:25)
[2017-09-05] MEDS: Multivitamin Vitamin B Complex (Nephro-Vite) Tab PO SCH (11:26)
--- NOTE | 2017-09-05 11:55 | CARD ---
APPROVED REPORT EKG Measurement Heart [id number] <Conclusion> Sinus rhythm with one premature ventricular complex Possible Left atrial enlargement NSSTW changes
[2017-09-05] MEDS: Meropenem 500 MG in Sodium Chloride 0.9% 100 ML IVPB SCH (11:57)
[2017-09-05] MEDS: Enoxaparin 30 mg Syringe SC SCH (11:58)
--- NOTE | 2017-09-05 12:06 | CP.PCM.PN ---
Subjective - Date & Time of Evaluation Date of Evaluation: 09/05/17 Time of Evaluation: 12:06 Objective - Vital Signs/Intake and Output Vital Signs (last 24 hours): Temp Pulse Resp BP Pulse Ox 99.8 F H 80 20 100/47 L 98 09/05/17 06:00 09/05/17 06:00 09/05/17 06:00 09/05/17 06:00 09/05/17 06:00 Intake and Output: 09/05/17 09/05/17 06:59 18:59 Intake Total 360 0 Output Total 50 200 Balance 310 -200 - Medications Medications: Current Medications Abacavir Sulfate (Ziagen) 600 mg PO DAILY [facility] Last Admin: 09/05/17 11:26 Dose: Not Given Acetaminophen (Tylenol 325mg Tab) 650 mg PO Q4H PRN PRN Reason: Fever >100.4 F Last Admin: 09/02/17 12:33 Dose: 650 mg Acetaminophen (Tylenol 650 Mg Supp) 650 mg RC Q6H PRN PRN Reason: Fever >100.4 F Last Admin: 09/05/17 01:05 Dose: 650 mg Darbepoetin Mario (Aranesp) 60 mcg IVP ONCE ONE Stop: 09/06/17 09:03 Enoxaparin Sodium (Lovenox) 30 mg SC DAILY [facility] PRN Reason: Protocol Last Admin: 09/05/17 11:58 Dose: 30 mg Home Med (Home Med) 1 unit PO DAILY [facility] Last Admin: 09/05/17 11:26 Dose: Not Given Meropenem 500 mg/ Sodium (Chloride) 100 mls @ 100 mls/hr IVPB Q24H [facility] PRN Reason: Protocol Last Admin: 09/05/17 11:57 Dose: 100 mls/hr Acyclovir 300 mg/ Sodium (Chloride) 100 mls @ 100 mls/hr IV DAILY [facility] PRN Reason: Protocol Last Admin: 09/04/17 13:17 Dose: 100 mls/hr Dextrose/Sodium Chloride (Dextrose 5%/0.9% Ns 1000 Ml) 1,000 mls @ 30 mls/hr IV .Q24H [facility] Last Admin: 09/04/17 18:43 Dose: 30 mls/hr Insulin Human Regular (Humulin R Med) 0 units SC ACHS [facility] PRN Reason: Protocol Last Admin: 09/05/17 11:56 Dose: Not Given Lamivudine (Epivir) 50 mg PO DAILY [facility] Last Admin: 09/05/17 11:25 Dose: Not Given Losartan Potassium (Cozaar) 100 mg PO QPM [facility] Last Admin: 09/04/17 18:43 Dose: 100 mg Metoprolol Tartrate (Lopressor) 100 mg PO Q12 [facility] Last Admin: 09/05/17 11:26 Dose: Not Given Morphine Sulfate (Morphine) 1 mg IVP Q3H PRN PRN Reason: Pain, moderate (4-7) Sevelamer HCl (Renagel) 800 mg PO TID [facility] Last Admin: 09/05/17 11:26 Dose: Not Given Tamsulosin HCl (Flomax) 0.4 mg PO DAILY [facility] Last Admin: 09/05/17 11:25 Dose: Not Given Vitamin B Complex/Vit C/Folic Acid (Nephro-Christel) 1 tab PO 0800 [facility] Last Admin: 09/05/17 11:26 Dose: Not Given - Labs Labs: 09/05/17 06:00 09/05/17 06:00 PT 12.9 SECONDS (9.4-12.5) H 08/30/17 19:07 INR 1.13 (0.93-1.08) H 08/30/17 19:07 APTT 38.2 Seconds (25.1-36.5) H 08/30/17 19:07
[2017-09-05] MEDS: Acyclovir 300 MG in Sodium Chloride 0.9% 100 ML IV SCH (13:00)
[2017-09-05] MEDS: Dextrose 5%/0.9% NS 1,000 ML IV SCH (13:02)
--- NOTE | 2017-09-05 15:06 | CP.PCM.PN ---
Subjective - Date & Time of Evaluation Date of Evaluation: 09/05/17 Time of Evaluation: 10:00 - Subjective Subjective: Follow up Nephrology Consultation: Assessment: critical Altered mental status, sepsis with UTI hx of prostate CA Hypertensive Chronic Kidney Disease (I12.9) ESRD on HD via permacath (TTS) Anemia (D64.9), HTN (I12.9) HIV on HAART, PVD s/p angioplasty Plan ordered CXR, ABG and rapid response was called and was evaluated by [facility] team. plan for tomorrow as per TTS. nephrovite 1 tab/day aransep weekly for anemia 09/06/17. PRBC as needed not on VDRA since Ca on high side, work up Vit D (34) /PTH/SPEP/CLYDE neg. will check PTH-rp as well continue with binders for phos Hypertension control with meds as ordered. Patient on RAAS edyta as losartan ID following started flomax. continue with D5NS as with low glucose. d/c IVF once oral intake good. Dose meds/antibiotics for ESRD status. Avoid fleets enema/magnesium based laxatives. Avoid nephrotoxins/NSAIDs/ iodinated contrast (unless needed emergently) Further work up/management as per primary team Thanks for allowing me to participate in care of your patient. Will follow patient with you. Please call if any Qs. d/w team Dr Yandel Arechiga Office: [phone] Chief Complaint; heel pain reason for consult: ESRD, HTN HPI: Pt is a 72 y/o M with hx of HIV on HAART, PVD s/p angioplasty, hypertension (10-15 years), ESRD on HD (via permacath) TTS @ [facility], left foot toe amputations, prostate CA initially admitted with AMS, fever and sepsis renal consult for ESRD, HTN management pt unable to provide hx due to AMS ROS: AMS hence unable. remains confused Physical Examination: General Appearance: ill appearing, lethargic Vitals reviewed and noted as below Head; Atraumatic, normocephalic ENT: no ulcers no thrush. Tongue is midline dry. Oropharynx: no rash or ulcers. EYES: Pupils are equal, round and reactive to light accommodation. Eye muscles and extraocular movement intact. Sclera is anicteric. Neck; supple no lymphadenopathy, no thyromegaly or bruit Lungs: Increased respiratory rate/effort. Breath sounds bilateral decreased with wheee at abase Heart: Normal rate. s1s2 normal. No rub or gallop. Extremities: no edema. No varicose veins. Neurological: Patient is mostly unresponsive Skin: Warm and dry. Normal turgor. No rash. Palpitation: Normal elasticity for age Abdomen: Abdomen is soft. Bowel sounds +. There is mild lower abdominal tenderness, no guarding/rigidity no organomegaly Psych: unable MSK: Digits and nails normal, left foot toe amputations in past. Rt foot in dressing. : kidney or bladder not palpable. Access: permacath and maturing left AVF Labs/imaging/EKG reviewed. Past medical history, past surgical history, family history, social history, allergy reviewed and noted as below Family hx: sister was on dialysis. Rest non-contributory Objective - Vital Signs/Intake and Output Vital Signs (last 24 hours): Temp Pulse Resp BP Pulse Ox 99.8 F H 80 20 100/47 L 98 09/05/17 06:00 09/05/17 06:00 09/05/17 06:00 09/05/17 06:00 09/05/17 06:00 Intake and Output: 09/05/17 09/05/17 06:59 18:59 Intake Total 360 0 Output Total 50 250 Balance 310 -250 - Medications Medications: Current Medications Abacavir Sulfate (Ziagen) 600 mg PO DAILY [facility] Last Admin: 09/05/17 11:26 Dose: Not Given Acetaminophen (Tylenol 325mg Tab) 650 mg PO Q4H PRN PRN Reason: Fever >100.4 F Last Admin: 09/02/17 12:33 Dose: 650 mg Acetaminophen (Tylenol 650 Mg Supp) 650 mg RC Q6H PRN PRN Reason: Fever >100.4 F Last Admin: 09/05/17 01:05 Dose: 650 mg Darbepoetin Mario (Aranesp) 60 mcg IVP ONCE ONE Stop: 09/06/17 09:03 Enoxaparin Sodium (Lovenox) 30 mg SC DAILY [facility] PRN Reason: Protocol Last Admin: 09/05/17 11:58 Dose: 30 mg Home Med (Home Med) 1 unit PO DAILY [facility] Last Admin: 09/05/17 11:26 Dose: Not Given Meropenem 500 mg/ Sodium (Chloride) 100 mls @ 100 mls/hr IVPB Q24H [facility] PRN Reason: Protocol Last Admin: 09/05/17 11:57 Dose: 100 mls/hr Acyclovir 300 mg/ Sodium (Chloride) 100 mls @ 100 mls/hr IV DAILY [facility] PRN Reason: Protocol Last Admin: 09/05/17 13:00 Dose: 100 mls/hr Dextrose/Sodium Chloride (Dextrose 5%/0.9% Ns 1000 Ml) 1,000 mls @ 30 mls/hr IV .Q24H [facility] Last Admin: 09/05/17 13:02 Dose: 30 mls/hr Insulin Human Regular (Humulin R Med) 0 units SC ACHS [facility] PRN Reason: Protocol Last Admin: 09/05/17 11:56 Dose: Not Given Lamivudine (Epivir) 50 mg PO DAILY [facility] Last Admin: 09/05/17 11:25 Dose: Not Given Losartan Potassium (Cozaar) 100 mg PO QPM [facility] Last Admin: 09/04/17 18:43 Dose: 100 mg Metoprolol Tartrate (Lopressor) 100 mg PO Q12 [facility] Last Admin: 09/05/17 11:26 Dose: Not Given Morphine Sulfate (Morphine) 1 mg IVP Q3H PRN PRN Reason: Pain, moderate (4-7) Sevelamer HCl (Renagel) 800 mg PO TID [facility] Last Admin: 09/05/17 13:02 Dose: Not Given Tamsulosin HCl (Flomax) 0.4 mg PO DAILY [facility] Last Admin: 09/05/17 11:25 Dose: Not Given Vitamin B Complex/Vit C/Folic Acid (Nephro-Christel) 1 tab PO 0800 [facility] Last Admin: 09/05/17 11:26 Dose: Not Given - Labs Labs: 09/05/17 06:00 09/05/17 06:00 PT 12.9 SECONDS (9.4-12.5) H 08/30/17 19:07 INR 1.13 (0.93-1.08) H 08/30/17 19:07 APTT 38.2 Seconds (25.1-36.5) H 08/30/17 19:07
--- NOTE | 2017-09-05 21:51 | PN ---
DATE: 09/05/2017 SUBJECTIVE: This is a 72-year-old male seen for multiple necrotic ulcerations on his right foot, both medial and lateral aspect. The patient did have recent angio and his circulation to the lower extremity still remains very poor. The patient also had a Rapid Response called today. The patient is seen at bedside, he is not alert, and he is contracted on the right side. The contracture appears to be at the knee and at the hip. PHYSICAL EXAMINATION: VITAL SIGNS: Temperature of 102, his blood pressure is 104/47, his oxygen saturation is 98, respirations are 20. MEDICATIONS: Medications are noted on the OCT. ALLERGIES: HE HAS NO DRUG ALLERGIES. LABORATORY DATA: Microbiology: The wound from the leg shows CORNELIO. ASSESSMENT AND PLAN: He is presently on antibiotics, meropenem as per Infectious Disease. The patient's lower extremities were inspected. Dressing change was done. There is no change in the foot since last seen. Recommendation was made for [id number] amputation. Recommendation is still for AKA at the present time. Podiatry will continue to see to keep the wounds as clean as possible, to keep the patient from become infected. The third toe on the left foot is demarcated and necrotic, but without infection. Suri Caldwell DPM
--- NOTE | 2017-09-06 01:17 | PN ---
DATE: 09/05/2017 SUBJECTIVE: The patient is in bed, in no acute distress, nontoxic. PHYSICAL EXAMINATION: VITAL SIGNS: On exam, the patient's temperature of 102, respiratory rate is 20 and heart rate of 80. HEENT: Unremarkable. NECK: Supple. LUNGS: Decreased breath sounds. HEART: Normal S1 and S2. ABDOMEN: Soft. LABORATORY EXAMINATION: Reveals the patient's white count is down to 9.8, hemoglobin of 8 and platelets of 414. BUN 27 and creatinine of 3.9. Random vancomycin is 16.6. Influenza is positive 1:256. ASSESSMENT AND PLAN: This is a 72-year-old male with past medical history of hypertension, , positive human immunodeficiency virus, history of osteomyelitis, history of pyelonephritis, Escherichia coli with severe sepsis, coagulase-negative Staphylococcus bacteremia, midline access and Shiley catheter. Repeat cultures are negative. Positive for influenza serology and currently on adequate vancomycin dosing. The patient had MRI of the brain and may be from the influenza A. We will start Tamiflu and adjusted for renal disease. The patient is already on isolation. We will follow with you. Cesar Flowers MD
[2017-09-06] MEDS ORDERED: Dextrose 50% SYRINGE Inj (50 ml) IVP STA ×2 (07:31→09:59)
[2017-09-06] MEDS: Insulin Reg-MEDIUM-Coverage SC SCH ×4 (07:45→21:59)
--- NOTE | 2017-09-06 07:48 | CP.PCM.PN ---
Subjective - Date & Time of Evaluation Date of Evaluation: 09/06/17 Time of Evaluation: 07:45 - Subjective Subjective: Mr. Sagastume was seen and examined at the bedside. He remains confused and restless in bed. He is unable to follow simple commands. He is on droplet and contact isolation due to his right foot wound. He also remains on telesitter for patient safety. There was no untoward events overnight. Objective - Vital Signs/Intake and Output Vital Signs (last 24 hours): Temp Pulse Resp BP Pulse Ox 99.8 F H 72 20 107/59 L 94 L 09/06/17 00:00 09/06/17 00:00 09/06/17 00:00 09/05/17 22:27 09/05/17 22:00 Intake and Output: 09/06/17 09/06/17 06:59 18:59 Intake Total 600 75 Output Total 75 75 Balance 525 0 - Medications Medications: Current Medications Abacavir Sulfate (Ziagen) 600 mg PO DAILY [facility] Last Admin: 09/05/17 11:26 Dose: Not Given Acetaminophen (Tylenol 325mg Tab) 650 mg PO Q4H PRN PRN Reason: Fever >100.4 F Last Admin: 09/02/17 12:33 Dose: 650 mg Acetaminophen (Tylenol 650 Mg Supp) 650 mg RC Q6H PRN PRN Reason: Fever >100.4 F Last Admin: 09/05/17 16:20 Dose: 650 mg Darbepoetin Mario (Aranesp) 60 mcg IVP ONCE ONE Stop: 09/06/17 09:03 Enoxaparin Sodium (Lovenox) 30 mg SC DAILY [facility] PRN Reason: Protocol Last Admin: 09/05/17 11:58 Dose: 30 mg Home Med (Home Med) 1 unit PO DAILY [facility] Last Admin: 09/05/17 11:26 Dose: Not Given Meropenem 500 mg/ Sodium (Chloride) 100 mls @ 100 mls/hr IVPB Q24H [facility] PRN Reason: Protocol Last Admin: 09/05/17 11:57 Dose: 100 mls/hr Acyclovir 300 mg/ Sodium (Chloride) 100 mls @ 100 mls/hr IV DAILY [facility] PRN Reason: Protocol Last Admin: 09/05/17 13:00 Dose: 100 mls/hr Dextrose/Sodium Chloride (Dextrose 5%/0.9% Ns 1000 Ml) 1,000 mls @ 30 mls/hr IV .Q24H [facility] Last Admin: 09/05/17 13:02 Dose: 30 mls/hr Insulin Human Regular (Humulin R Med) 0 units SC ACHS [facility] PRN Reason: Protocol Last Admin: 09/05/17 22:19 Dose: Not Given Lamivudine (Epivir) 50 mg PO DAILY [facility] Last Admin: 09/05/17 11:25 Dose: Not Given Losartan Potassium (Cozaar) 100 mg PO QPM [facility] Last Admin: 09/05/17 18:05 Dose: 100 mg Metoprolol Tartrate (Lopressor) 100 mg PO Q12 [facility] Last Admin: 09/05/17 22:27 Dose: Not Given Morphine Sulfate (Morphine) 1 mg IVP Q3H PRN PRN Reason: Pain, moderate (4-7) Oseltamivir Phosphate (Tamiflu Cap) 75 mg PO DAILY [facility] PRN Reason: Protocol Stop: 09/10/17 20:16 Sevelamer HCl (Renagel) 800 mg PO TID [facility] Last Admin: 09/05/17 18:05 Dose: 800 mg Tamsulosin HCl (Flomax) 0.4 mg PO DAILY [facility] Last Admin: 09/05/17 11:25 Dose: Not Given Vitamin B Complex/Vit C/Folic Acid (Nephro-Christel) 1 tab PO 0800 [facility] Last Admin: 09/05/17 11:26 Dose: Not Given - Labs Labs: 09/05/17 06:00 09/05/17 06:00 PT 12.9 SECONDS (9.4-12.5) H 08/30/17 19:07 INR 1.13 (0.93-1.08) H 08/30/17 19:07 APTT 38.2 Seconds (25.1-36.5) H 08/30/17 19:07 - Constitutional Appears: No Acute Distress - Head Exam Head Exam: NORMAL INSPECTION - Extremities Exam Additional comments: right leg is contracted - Neurological Exam Neurological Exam: Awake Neuro motor strength exam: Left Upper Extremity: 4, Right Upper Extremity: 4, Left Lower Extremity: 3, Right Lower Extremity: 2/1 Additional comments: Neurological unchanged from previous examination. Assessment and Plan (1) Acute metabolic encephalopathy Assessment & Plan: Case discussed with Dr. Torres, continue all current medical regimen. Pending MRI of the brain. Status: Acute
[2017-09-06] MEDS ORDERED: Darbepoetin Alfa 60 mcg/ml Inj IVP ONE (09:02)
[2017-09-06] MEDS: LamiVUDine 10 mg/ml Syringe PO SCH (10:00)
[2017-09-06] MEDS: Acyclovir 300 MG in Sodium Chloride 0.9% 100 ML IV SCH (11:44)
[2017-09-06] MEDS: Dextrose 5%/0.9% NS 1,000 ML IV SCH (11:56)
[2017-09-06] MEDS: Meropenem 500 MG in Sodium Chloride 0.9% 100 ML IVPB SCH (11:57)
--- NOTE | 2017-09-06 13:43 | PN ---
DATE: 09/06/2016 SUBJECTIVE: I saw Raza resting comfortably in bed. He is alert, little tired. He is not eating that much. Discussed with the surgical team that they do right AKA on Sunday. He is in trouble. They are waiting for family to give their decision for him. He is currently on acyclovir, Aranesp, Cozaar, dextrose, Epivir, Flomax, Lopressor, Lovenox, Merrem, morphine, Nephro-Christel, Renagel, Tamiflu, Tylenol and Ziagen. He is now with the flu. He is on isolation. PHYSICAL EXAMINATION: VITAL SIGNS: He has 99.8 temp, 102 temp on the other night, 72 respiratory rate, 107/59 blood pressure, 94% O2 sat on room air. HEENT: Head is atraumatic and normocephalic. HEART: Regular rate. LUNGS: Decreased breath sounds. Poor inspiration. Occasional congestion, clears with cough. ABDOMEN: Soft. Decreased bowel sounds. EXTREMITIES: Contracted. If he had a bad right foot, need to do right AKA. LABORATORY DATA: He has 9.8 white count, best it has been 8.1 hemoglobin, if it drops, we will be able to transfuse him; 26.9 hematocrit with 414 platelets. He has 43 sugar last time, 139 sodium, potassium is 3.7, BUN 27, creatinine 3.9. He is on hemodialysis. AST is 70 and ALT is 34. Total protein is 6.6. ASSESSMENT AND PLAN: He is being seen by multiple doctors, Infectious Disease, Podiatry, Surgery, Renal, Neurology. He has got human immunodeficiency virus, prostate cancer, osteomyelitis, severe sepsis, bacteremia, influenza now. We will make sure that we get Cardiology for medical cardiac clearance, and hopefully planned to have a surgery on Sunday. He has got multiple issues. Continue with aggressive treatment and care. Parag Brownlee DO MTDAnna
--- NOTE | 2017-09-06 14:17 | CP.PCM.PN ---
Subjective - Date & Time of Evaluation Date of Evaluation: 09/06/17 Time of Evaluation: 07:00 - Subjective Subjective: GENERAL SURGERY PROGRESS NOTE FOR DR. HELLER Patient seen and examined. On droplet precautions for Flu +. I called his sister , Tonya Gudino yesterday at [phone] and we discussed his treatment options including the recommendation for AKA. She would like more time to discuss with the rest of their family. I called her again today and was unable to reach her. Objective - Vital Signs/Intake and Output Vital Signs (last 24 hours): Temp Pulse Resp BP Pulse Ox 98.8 F 93 H 20 126/71 98 09/06/17 09:14 09/06/17 10:00 09/06/17 09:14 09/06/17 10:00 09/06/17 09:14 Intake and Output: 09/06/17 09/06/17 06:59 18:59 Intake Total 600 75 Output Total 75 75 Balance 525 0 - Medications Medications: Current Medications Abacavir Sulfate (Ziagen) 600 mg PO DAILY [facility] Last Admin: 09/05/17 11:26 Dose: Not Given Acetaminophen (Tylenol 325mg Tab) 650 mg PO Q4H PRN PRN Reason: Fever >100.4 F Last Admin: 09/02/17 12:33 Dose: 650 mg Acetaminophen (Tylenol 650 Mg Supp) 650 mg RC Q6H PRN PRN Reason: Fever >100.4 F Last Admin: 09/05/17 16:20 Dose: 650 mg Enoxaparin Sodium (Lovenox) 30 mg SC DAILY [facility] PRN Reason: Protocol Last Admin: 09/05/17 11:58 Dose: 30 mg Home Med (Home Med) 1 unit PO DAILY [facility] Last Admin: 09/06/17 11:56 Dose: Not Given Meropenem 500 mg/ Sodium (Chloride) 100 mls @ 100 mls/hr IVPB Q24H [facility] PRN Reason: Protocol Last Admin: 09/06/17 11:57 Dose: 100 mls/hr Acyclovir 300 mg/ Sodium (Chloride) 100 mls @ 100 mls/hr IV DAILY [facility] PRN Reason: Protocol Last Admin: 09/06/17 11:44 Dose: 100 mls/hr Dextrose/Sodium Chloride (Dextrose 5%/0.9% Ns 1000 Ml) 1,000 mls @ 50 mls/hr IV .Q20H [facility] Last Admin: 09/06/17 11:56 Dose: 50 mls/hr Insulin Human Regular (Humulin R Med) 0 units SC ACHS [facility] PRN Reason: Protocol Last Admin: 09/06/17 11:45 Dose: Not Given Lamivudine (Epivir) 50 mg PO DAILY [facility] Last Admin: 09/05/17 11:25 Dose: Not Given Losartan Potassium (Cozaar) 100 mg PO QPM [facility] Last Admin: 09/05/17 18:05 Dose: 100 mg Metoprolol Tartrate (Lopressor) 100 mg PO Q12 [facility] Last Admin: 09/06/17 10:00 Dose: Not Given Morphine Sulfate (Morphine) 1 mg IVP Q3H PRN PRN Reason: Pain, moderate (4-7) Oseltamivir Phosphate (Tamiflu Susp) 30 mg PO DAILY [facility] PRN Reason: Protocol Sevelamer HCl (Renagel) 800 mg PO TID [facility] Last Admin: 09/06/17 10:00 Dose: Not Given Tamsulosin HCl (Flomax) 0.4 mg PO DAILY [facility] Last Admin: 09/05/17 11:25 Dose: Not Given Vitamin B Complex/Vit C/Folic Acid (Nephro-Christel) 1 tab PO 0800 [facility] Last Admin: 09/05/17 11:26 Dose: Not Given - Labs Labs: 09/05/17 06:00 09/05/17 06:00 PT 12.9 SECONDS (9.4-12.5) H 08/30/17 19:07 INR 1.13 (0.93-1.08) H 08/30/17 19:07 APTT 38.2 Seconds (25.1-36.5) H 08/30/17 19:07 - Constitutional Appears: Cachectic, Chronically Ill - Respiratory Exam Respiratory Exam: NORMAL BREATHING PATTERN. absent: Respiratory Distress - Cardiovascular Exam Cardiovascular Exam: +S1, +S2 - Extremities Exam Additional comments: contractures to right leg Assessment and Plan - Assessment and Plan (Free Text) Assessment: 72yo M with severe peripheral vascular disease. Surgery was consulted for possible Right AKA. - Spoke to sister on the phone yesterday. She would like to discuss with the family regarding possible AKA - Tentative Right AKA on Sunday if family agrees - Needs medical clearance prior to OR - Discussed plan with Dr. Juan Leach PGY-3
--- NOTE | 2017-09-06 15:22 | CP.PCM.PN ---
Subjective - Date & Time of Evaluation Date of Evaluation: 09/06/17 Time of Evaluation: 15:21 - Subjective Subjective: Follow up Nephrology Consultation: Assessment:critical Altered mental status, sepsis with UTI hx of prostate CA Hypertensive Chronic Kidney Disease (I12.9) ESRD on HD via permacath (TTS) Anemia (D64.9), HTN (I12.9) HIV on HAART, PVD s/p angioplasty Plan plan for today as per TTS. nephrovite 1 tab/day aransep weekly for anemia 09/06/17. PRBC as needed not on VDRA since Ca on high side, work up Vit D (34) /PTH/SPEP/CLYDE neg. will check PTH-rp as well continue with binders for phos Hypertension control with meds as ordered. Patient on RAAS edyta as losartan ID following started flomax. continue with D5NS as with low glucose. d/c IVF once oral intake good. podiatry planning for AKA Dose meds/antibiotics for ESRD status. Avoid fleets enema/magnesium based laxatives. Avoid nephrotoxins/NSAIDs/ iodinated contrast (unless needed emergently) Further work up/management as per primary team Thanks for allowing me to participate in care of your patient. Will follow patient with you. Please call if any Qs. d/w team Dr Yandel Arechiga Office: [phone] reason for consult: ESRD, HTN HPI: Pt is a 72 y/o M with hx of HIV on HAART, PVD s/p angioplasty, hypertension (10-15 years), ESRD on HD (via permacath) TTS @ [facility], left foot toe amputations, prostate CA initially admitted with AMS, fever and sepsis renal consult for ESRD, HTN management pt unable to provide hx due to AMS ROS: AMS hence unable. remains confused Physical Examination: seen on HD General Appearance: comfortable, in no acute respiratory distress, ill appearing Vitals reviewed and noted as below Head; Atraumatic, normocephalic ENT: no ulcers no thrush. Tongue is midline dry. Oropharynx: no rash or ulcers. EYES: Pupils are equal, round and reactive to light accommodation. Eye muscles and extraocular movement intact. Sclera is anicteric. Neck; supple no lymphadenopathy, no thyromegaly or bruit Lungs: Normal respiratory rate/effort. Breath sounds bilateral clear Heart: Normal rate. s1s2 normal. No rub or gallop. Extremities: no edema. No varicose veins. Neurological: Patient is confused and delirious. Skin: Warm and dry. Normal turgor. No rash. Palpitation: Normal elasticity for age Abdomen: Abdomen is soft. Bowel sounds +. There is mild lower abdominal tenderness, no guarding/rigidity no organomegaly Psych: unable MSK: Digits and nails normal, left foot toe amputations in past. Rt foot in dressing. : kidney or bladder not palpable. Access: permacath and maturing left AVF Labs/imaging/EKG reviewed. Past medical history, past surgical history, family history, social history, allergy reviewed and noted as below Family hx: sister was on dialysis. Rest non-contributory Objective - Vital Signs/Intake and Output Vital Signs (last 24 hours): Temp Pulse Resp BP Pulse Ox 98.8 F 93 H 20 126/71 98 09/06/17 09:14 09/06/17 10:00 09/06/17 09:14 09/06/17 10:00 09/06/17 09:14 Intake and Output: 09/06/17 09/06/17 06:59 18:59 Intake Total 600 255 Output Total 75 75 Balance 525 180 - Medications Medications: Current Medications Abacavir Sulfate (Ziagen) 600 mg PO DAILY [facility] Last Admin: 09/05/17 11:26 Dose: Not Given Acetaminophen (Tylenol 325mg Tab) 650 mg PO Q4H PRN PRN Reason: Fever >100.4 F Last Admin: 09/02/17 12:33 Dose: 650 mg Acetaminophen (Tylenol 650 Mg Supp) 650 mg RC Q6H PRN PRN Reason: Fever >100.4 F Last Admin: 09/05/17 16:20 Dose: 650 mg Enoxaparin Sodium (Lovenox) 30 mg SC DAILY [facility] PRN Reason: Protocol Last Admin: 09/05/17 11:58 Dose: 30 mg Home Med (Home Med) 1 unit PO DAILY [facility] Last Admin: 09/06/17 11:56 Dose: Not Given Meropenem 500 mg/ Sodium (Chloride) 100 mls @ 100 mls/hr IVPB Q24H [facility] PRN Reason: Protocol Last Admin: 09/06/17 11:57 Dose: 100 mls/hr Acyclovir 300 mg/ Sodium (Chloride) 100 mls @ 100 mls/hr IV DAILY [facility] PRN Reason: Protocol Last Admin: 09/06/17 11:44 Dose: 100 mls/hr Dextrose/Sodium Chloride (Dextrose 5%/0.9% Ns 1000 Ml) 1,000 mls @ 50 mls/hr IV .Q20H [facility] Last Admin: 09/06/17 11:56 Dose: 50 mls/hr Insulin Human Regular (Humulin R Med) 0 units SC ACHS [facility] PRN Reason: Protocol Last Admin: 09/06/17 11:45 Dose: Not Given Lamivudine (Epivir) 50 mg PO DAILY [facility] Last Admin: 09/05/17 11:25 Dose: Not Given Losartan Potassium (Cozaar) 100 mg PO QPM [facility] Last Admin: 09/05/17 18:05 Dose: 100 mg Metoprolol Tartrate (Lopressor) 100 mg PO Q12 [facility] Last Admin: 09/06/17 10:00 Dose: Not Given Morphine Sulfate (Morphine) 1 mg IVP Q3H PRN PRN Reason: Pain, moderate (4-7) Oseltamivir Phosphate (Tamiflu Susp) 30 mg PO DAILY [facility] PRN Reason: Protocol Sevelamer HCl (Renagel) 800 mg PO TID [facility] Last Admin: 09/06/17 10:00 Dose: Not Given Tamsulosin HCl (Flomax) 0.4 mg PO DAILY [facility] Last Admin: 09/05/17 11:25 Dose: Not Given Vitamin B Complex/Vit C/Folic Acid (Nephro-Christel) 1 tab PO 0800 [facility] Last Admin: 09/05/17 11:26 Dose: Not Given - Labs Labs: 09/05/17 06:00 09/05/17 06:00 PT 12.9 SECONDS (9.4-12.5) H 08/30/17 19:07 INR 1.13 (0.93-1.08) H 08/30/17 19:07 APTT 38.2 Seconds (25.1-36.5) H 08/30/17 19:07
[2017-09-06 17:44] LABS: HEMOGLOBIN 8.8 g/dL (14.0-18.0); MEAN CORPUSCULAR HEMOGLOBIN 29.3 pg (25.0-35.0); MEAN CORPUSCULAR HGB CONC 30.9 g/dl (31.0-37.0); MEAN PLATELET VOLUME 10.3 fl (7.0-11.0); RED CELL DISTRIBUTION WIDTH 16.8 % (11.5-14.5); WHITE BLOOD COUNT 14.3 10^3/ul (4.5-11.0)
[2017-09-06 18:02] LABS: ALB/GLOB RATIO 0.7 (1.1-1.8); ALBUMIN 3.1 g/dL (3.0-4.8)
[2017-09-06] MEDS: Enoxaparin 30 mg Syringe SC SCH (18:46)
[2017-09-06] MEDS: Multivitamin Vitamin B Complex (Nephro-Vite) Tab PO SCH (18:47)
[2017-09-06] MEDS ORDERED: Potassium Chloride 20 mEq/15 ml LIQ UD PO STA (21:05)
--- NOTE | 2017-09-06 21:08 | CP.PCM.PN ---
Subjective - Date & Time of Evaluation Date of Evaluation: 09/06/17 Time of Evaluation: 21:04 - Subjective Subjective: S: Patient was seen at bedside. Nurse called and told that potassium level was 2.9. Has no complaints. No diarrhoea, no vomiting. Medical record was reviewed. O: VSS. Not in acute distress. LUNGS:Normal breathing pattern. A: Hypokalemia. P: KCL 10 mEq IV stat. KCL-40 mEq soln PO x 1. Objective - Vital Signs/Intake and Output Vital Signs (last 24 hours): Temp Pulse Resp BP Pulse Ox 101.0 F H 93 H 20 126/71 98 09/06/17 18:51 09/06/17 10:00 09/06/17 09:14 09/06/17 10:00 09/06/17 09:14 Intake and Output: 09/06/17 09/07/17 18:59 06:59 Intake Total 255 Output Total 75 Balance 180 - Medications Medications: Current Medications Abacavir Sulfate (Ziagen) 600 mg PO DAILY [facility] Last Admin: 09/06/17 18:44 Dose: 600 mg Acetaminophen (Tylenol 325mg Tab) 650 mg PO Q4H PRN PRN Reason: Fever >100.4 F Last Admin: 09/06/17 18:51 Dose: 650 mg Acetaminophen (Tylenol 650 Mg Supp) 650 mg RC Q6H PRN PRN Reason: Fever >100.4 F Last Admin: 09/05/17 16:20 Dose: 650 mg Enoxaparin Sodium (Lovenox) 30 mg SC DAILY [facility] PRN Reason: Protocol Last Admin: 09/06/17 18:46 Dose: 30 mg Home Med (Home Med) 1 unit PO DAILY [facility] Last Admin: 09/06/17 11:56 Dose: Not Given Meropenem 500 mg/ Sodium (Chloride) 100 mls @ 100 mls/hr IVPB Q24H [facility] PRN Reason: Protocol Last Admin: 09/06/17 11:57 Dose: 100 mls/hr Acyclovir 300 mg/ Sodium (Chloride) 100 mls @ 100 mls/hr IV DAILY [facility] PRN Reason: Protocol Last Admin: 09/06/17 11:44 Dose: 100 mls/hr Dextrose/Sodium Chloride (Dextrose 5%/0.9% Ns 1000 Ml) 1,000 mls @ 50 mls/hr IV .Q20H [facility] Last Admin: 09/06/17 11:56 Dose: 50 mls/hr Insulin Human Regular (Humulin R Med) 0 units SC ACHS [facility] PRN Reason: Protocol Last Admin: 09/06/17 16:30 Dose: Not Given Lamivudine (Epivir) 50 mg PO DAILY [facility] Last Admin: 09/06/17 10:00 Dose: Not Given Losartan Potassium (Cozaar) 100 mg PO QPM [facility] Last Admin: 09/06/17 18:47 Dose: 100 mg Metoprolol Tartrate (Lopressor) 100 mg PO Q12 [facility] Last Admin: 09/06/17 10:00 Dose: Not Given Morphine Sulfate (Morphine) 1 mg IVP Q3H PRN PRN Reason: Pain, moderate (4-7) Oseltamivir Phosphate (Tamiflu Susp) 30 mg PO DAILY [facility] PRN Reason: Protocol Sevelamer HCl (Renagel) 800 mg PO TID [facility] Last Admin: 09/06/17 18:44 Dose: 800 mg Tamsulosin HCl (Flomax) 0.4 mg PO DAILY [facility] Last Admin: 09/06/17 18:47 Dose: 0.4 mg Vitamin B Complex/Vit C/Folic Acid (Nephro-Christel) 1 tab PO 0800 [facility] Last Admin: 09/06/17 18:47 Dose: 1 tab - Labs Labs: 09/06/17 14:00 09/06/17 14:00 PT 12.9 SECONDS (9.4-12.5) H 08/30/17 19:07 INR 1.13 (0.93-1.08) H 08/30/17 19:07 APTT 38.2 Seconds (25.1-36.5) H 08/30/17 19:07
--- NOTE | 2017-09-07 02:41 | PN ---
DATE: 09/06/2017 The patient is in bed, in no acute distress, nontoxic, was seen earlier this morning. PHYSICAL EXAMINATION: VITAL SIGNS: Temperature is 101.0, respiratory rate of 20, heart rate of 93. HEENT: Unremarkable. NECK: Supple. LUNGS: Had decreased breath sounds. HEART: Normal S1, S2. ABDOMEN: Soft. LABORATORY DATA: Reveals the patient's white count of 14,300, BUN of 15, creatinine of 2.0 and urinalysis is noted and random vancomycin level was 16.6. Influenza is positive, 1:256. The patient had an MRI which was negative, chronic changes. ASSESSMENT AND PLAN: .This is a 72-year-old male with past medical history of hypertension, positive human immunodeficiency virus, history of osteomyelitis, history of pyelonephritis, Escherichia coli and severe sepsis with a coag-negative staph bacteremia with a midline catheter and Shiley catheter with repeat cultures negative, negative MRI and today is day #2 of Tamiflu, would complete with 5 days of Tamiflu and day #6 of vancomycin. We will give vancomycin during dialysis, would complete at least 14 to 21 days of vancomycin during dialysis and vancomycin level is noted. We will discontinue the acyclovir and meropenem. We will give another dose of vancomycin tomorrow. We would recommend vancomycin 500 mg at dialysis during next 2 to 3 weeks, day #6 of at least 14 to 21 days of antibiotics. We will follow closely with you. Cesar Flowers MD
[2017-09-07] MEDS: Dextrose 5%/0.9% NS 1,000 ML IV SCH (04:50)
[2017-09-07 07:21] LABS: HEMOGLOBIN 8.3 g/dL (14.0-18.0); MEAN CELL VOLUME 96.9 fl (80.0-105.0); MEAN CORPUSCULAR HEMOGLOBIN 28.8 pg (25.0-35.0); MEAN CORPUSCULAR HGB CONC 29.7 g/dl (31.0-37.0); MEAN PLATELET VOLUME 10.4 fl (7.0-11.0); RBC 2.88 10^6/uL (3.5-6.1); RED CELL DISTRIBUTION WIDTH 16.9 % (11.5-14.5); WHITE BLOOD COUNT 10.7 10^3/ul (4.5-11.0)
[2017-09-07 07:41] LABS: INR 1.28 (0.93-1.08); PROTHROMBIN TIME 14.8 SECONDS (9.4-12.5)
[2017-09-07 07:46] LABS: ALB/GLOB RATIO 0.7 (1.1-1.8); CALCIUM 9.3 mg/dL (8.4-10.5)
[2017-09-07] MEDS: Insulin Reg-MEDIUM-Coverage SC SCH ×3 (08:00→23:07)
--- NOTE | 2017-09-07 08:03 | CP.PCM.PN ---
Subjective - Date & Time of Evaluation Date of Evaluation: 09/07/17 Time of Evaluation: 08:00 - Subjective Subjective: Mr. Sagastume was seen and examined at the bedside. He is awake, but with visual hallucination. He is seeing a truck that needs to be filled up with gas and his sister is standing beside it. He is restless in bed, tries to get up in bed. He is unable to move his right leg, but all other extremities are moving spontaneously. His creatinine today is 4.1 from 2.5. He remains on telesitter for patient safety. 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 MRI of the brain showed chronic microvascular changes in the periventricular white matter and left middle cerebellar peduncle There was no untoward events overnight. Objective - Vital Signs/Intake and Output Vital Signs (last 24 hours): Temp Pulse Resp BP Pulse Ox 98.5 F 80 18 110/78 95 09/06/17 22:00 09/06/17 22:00 09/06/17 22:00 09/06/17 22:00 09/06/17 22:00 Intake and Output: 09/07/17 09/07/17 06:59 18:59 Intake Total 240 30 Output Total 100 50 Balance 140 -20 - Medications Medications: Current Medications Abacavir Sulfate (Ziagen) 600 mg PO DAILY [facility] Last Admin: 09/06/17 18:44 Dose: 600 mg Acetaminophen (Tylenol 325mg Tab) 650 mg PO Q4H PRN PRN Reason: Fever >100.4 F Last Admin: 09/06/17 18:51 Dose: 650 mg Acetaminophen (Tylenol 650 Mg Supp) 650 mg RC Q6H PRN PRN Reason: Fever >100.4 F Last Admin: 09/05/17 16:20 Dose: 650 mg Enoxaparin Sodium (Lovenox) 30 mg SC DAILY [facility] PRN Reason: Protocol Last Admin: 09/06/17 18:46 Dose: 30 mg Home Med (Home Med) 1 unit PO DAILY [facility] Last Admin: 09/06/17 11:56 Dose: Not Given Dextrose/Sodium Chloride (Dextrose 5%/0.9% Ns 1000 Ml) 1,000 mls @ 50 mls/hr IV .Q20H [facility] Last Admin: 09/07/17 04:50 Dose: 50 mls/hr Vancomycin HCl (Vancomycin 500mg In Ns) 500 mg in 100 mls @ 200 mls/hr IVPB ONCE ONE PRN Reason: Protocol Stop: 09/07/17 10:29 Insulin Human Regular (Humulin R Med) 0 units SC ACHS [facility] PRN Reason: Protocol Last Admin: 09/06/17 21:59 Dose: Not Given Lamivudine (Epivir) 50 mg PO DAILY [facility] Last Admin: 09/06/17 10:00 Dose: Not Given Losartan Potassium (Cozaar) 100 mg PO QPM [facility] Last Admin: 09/06/17 18:47 Dose: 100 mg Metoprolol Tartrate (Lopressor) 100 mg PO Q12 [facility] Last Admin: 09/06/17 22:00 Dose: Not Given Morphine Sulfate (Morphine) 1 mg IVP Q3H PRN PRN Reason: Pain, moderate (4-7) Oseltamivir Phosphate (Tamiflu Susp) 30 mg PO DAILY [facility] PRN Reason: Protocol Sevelamer HCl (Renagel) 800 mg PO TID [facility] Last Admin: 09/06/17 18:44 Dose: 800 mg Tamsulosin HCl (Flomax) 0.4 mg PO DAILY [facility] Last Admin: 09/06/17 18:47 Dose: 0.4 mg Vitamin B Complex/Vit C/Folic Acid (Nephro-Christel) 1 tab PO 0800 [facility] Last Admin: 09/06/17 18:47 Dose: 1 tab - Labs Labs: 09/07/17 06:30 09/07/17 06:30 PT 14.8 SECONDS (9.4-12.5) H 09/07/17 06:30 INR 1.28 (0.93-1.08) H 09/07/17 06:30 APTT 38.2 Seconds (25.1-36.5) H 08/30/17 19:07 - Constitutional Appears: No Acute Distress - Head Exam Head Exam: NORMAL INSPECTION - Neurological Exam Neurological Exam: Awake Neuro motor strength exam: Left Upper Extremity: 4, Right Upper Extremity: 4, Left Lower Extremity: 4, Right Lower Extremity: 2/1 Additional comments: He has visual hallucination and unable to participate during the assessment. Assessment and Plan (1) Acute metabolic encephalopathy Assessment & Plan: Case discussed with Dr. Torres, continue all current medical regimen. Please refer to nephrology all his abnormal electrolytes to alleviate some of his confusion. Status: Acute
[2017-09-07] MEDS: LamiVUDine 10 mg/ml Syringe PO SCH (09:25)
[2017-09-07] MEDS: Enoxaparin 30 mg Syringe SC SCH (09:26)
[2017-09-07] MEDS: Multivitamin Vitamin B Complex (Nephro-Vite) Tab PO SCH (09:32)
[2017-09-07] MEDS ORDERED: Vancomycin 500mg in NS 500 MG/100 ML BAG IVPB ONE (10:00)
[2017-09-07] MEDS: Oseltamivir 6 MG/ML PO SCH (10:31)
--- NOTE | 2017-09-07 10:56 | PN ---
DATE: SUBJECTIVE: I saw Raza resting comfortably in bed. He is alert. He is talking. His eyes are closed though, when he talks, he is definitely septic. He is on Cozaar, dextrose, Epivir, Flomax, Lopressor, Lovenox, morphine, Nephro-Christel, Renagel, Tamiflu, Tylenol, vancomycin, and Ziagen. OBJECTIVE: VITAL SIGNS: Temperature 98.8, 80 pulse, 110/70 blood pressure, 18 respiratory rate, 95% O2 sat on 2 liters nasal cannula, he had 101 temperature last night. The plan is for Sunday to have right AKA with Dr. Martinez. HEENT: His head is atraumatic and normocephalic. HEART: Regular rate. LUNGS: Decreased breath sounds, but clear. ABDOMEN: Soft. EXTREMITIES: He is very weak and thin, contracted the right leg, he has got very bad foot on the AKA. He has got vancomycin-resistant Enterococcus faecium in the wound culture. He has got urine culture showing Streptococcus viridans. Blood cultures showing Staphylococcus-coagulase negative. He is on IV antibiotics and multiple medications. LABORATORY DATA: He has 10.7 white count, 8.3 hemoglobin, and 27.9 hematocrit with 420 platelets. INR is 1.28. He has 141 sodium, potassium is 4.1, BUN is 25, creatinine is 4.1, GFR is 14, sugar is 82, calcium is 9.3, total bilirubin is 0.5, AST is 85, ALT is 33, alkaline phosphatase is , and total protein is 6.9. Urine was large, had UTI. He is being seen by multiple physicians, he also has flu, Infectious Disease, Renal, Surgery, and Podiatry. I will call in Cardio for cardiac clearance for hopefully surgery on Sunday. We will his labs tomorrow. Parag Brownlee DO MTDAnna
--- NOTE | 2017-09-07 12:04 | CP.PCM.PN ---
Subjective - Date & Time of Evaluation Date of Evaluation: 09/07/17 Time of Evaluation: 08:00 - Subjective Subjective: Surgery Progress note. Dr. Martinez Pt seen and examined at bedside. No acute reported events overnight. No new complaints. No Fevers. Objective - Vital Signs/Intake and Output Vital Signs (last 24 hours): Temp Pulse Resp BP Pulse Ox 98.8 F 80 20 120/70 95 09/07/17 08:07 09/07/17 09:26 09/07/17 08:07 09/07/17 09:26 09/06/17 22:00 Intake and Output: 09/07/17 09/07/17 06:59 18:59 Intake Total 240 30 Output Total 100 50 Balance 140 -20 - Medications Medications: Current Medications Abacavir Sulfate (Ziagen) 600 mg PO DAILY [facility] Last Admin: 09/07/17 09:27 Dose: 600 mg Acetaminophen (Tylenol 325mg Tab) 650 mg PO Q4H PRN PRN Reason: Fever >100.4 F Last Admin: 09/06/17 18:51 Dose: 650 mg Acetaminophen (Tylenol 650 Mg Supp) 650 mg RC Q6H PRN PRN Reason: Fever >100.4 F Last Admin: 09/05/17 16:20 Dose: 650 mg Enoxaparin Sodium (Lovenox) 30 mg SC DAILY [facility] PRN Reason: Protocol Last Admin: 09/07/17 09:26 Dose: 30 mg Home Med (Home Med) 1 unit PO DAILY [facility] Last Admin: 09/07/17 09:31 Dose: Not Given Dextrose/Sodium Chloride (Dextrose 5%/0.9% Ns 1000 Ml) 1,000 mls @ 50 mls/hr IV .Q20H [facility] Last Admin: 09/07/17 04:50 Dose: 50 mls/hr Insulin Human Regular (Humulin R Med) 0 units SC ACHS [facility] PRN Reason: Protocol Last Admin: 09/07/17 11:36 Dose: Not Given Lamivudine (Epivir) 50 mg PO DAILY [facility] Last Admin: 09/07/17 09:25 Dose: 50 mg Losartan Potassium (Cozaar) 100 mg PO QPM [facility] Last Admin: 09/06/17 18:47 Dose: 100 mg Metoprolol Tartrate (Lopressor) 100 mg PO Q12 [facility] Last Admin: 09/07/17 09:26 Dose: 100 mg Morphine Sulfate (Morphine) 1 mg IVP Q3H PRN PRN Reason: Pain, moderate (4-7) Oseltamivir Phosphate (Tamiflu Susp) 30 mg PO DAILY [facility] PRN Reason: Protocol Last Admin: 09/07/17 10:31 Dose: Not Given Sevelamer HCl (Renagel) 800 mg PO TID [facility] Last Admin: 09/07/17 09:26 Dose: 800 mg Tamsulosin HCl (Flomax) 0.4 mg PO DAILY [facility] Last Admin: 09/07/17 09:28 Dose: 0.4 mg Vitamin B Complex/Vit C/Folic Acid (Nephro-Christel) 1 tab PO 0800 [facility] Last Admin: 09/07/17 09:32 Dose: Not Given - Labs Labs: 09/07/17 06:30 09/07/17 06:30 PT 14.8 SECONDS (9.4-12.5) H 09/07/17 06:30 INR 1.28 (0.93-1.08) H 09/07/17 06:30 APTT 38.2 Seconds (25.1-36.5) H 08/30/17 19:07 - Constitutional Appears: Non-toxic, No Acute Distress - Head Exam Head Exam: ATRAUMATIC, NORMAL INSPECTION, NORMOCEPHALIC - Extremities Exam Additional comments: Right Leg contracture. - Skin Skin Exam: Warm Assessment and Plan - Assessment and Plan (Free Text) Assessment: 72yo M with severe peripheral vascular disease. Surgery was consulted for possible Right AKA. - Called multiple different family members today to discuss plan regarding possible AKA. Unable to reach. Will continue to attempt reaching them - Tentative Right AKA on Sunday, 09/10 if family agrees - Cardiac risk stratification as per Dr. Weller Further recs as per Dr. Juan Diego PGY1 surgery pager: [phone]
[2017-09-07] MEDS: Morphine 2 mg/ml ISec IVP PRN ×2 (12:52→16:45)
--- NOTE | 2017-09-07 15:07 | CP.PCM.PN ---
<Janice Martinez - Last Filed: 09/07/17 15:14> Subjective - Date & Time of Evaluation Date of Evaluation: 09/07/17 Time of Evaluation: 15:06 - Subjective Subjective: Podiatry Progress Note- Dr. Dunn 72 y/o male seen at bedside for right LE ulcerations and left 3rd digit partial amputation with necrotic skin changes. Patient is seen resting at bedside. He is more alert and verbal today. Patient dressing to the LE is clean, dry, and intact without strikethrough noted. Patient was seen wearing multipodus boots during the time of visitation. Patient says he has very little appetite and feels nauseous. Denies F/C/V/CP/SOB Objective - Vital Signs/Intake and Output Vital Signs (last 24 hours): Temp Pulse Resp BP Pulse Ox 98.8 F 80 20 120/70 95 09/07/17 08:07 09/07/17 09:26 09/07/17 08:07 09/07/17 09:26 09/06/17 22:00 Intake and Output: 09/07/17 09/07/17 06:59 18:59 Intake Total 240 30 Output Total 100 50 Balance 140 -20 - Medications Medications: Current Medications Abacavir Sulfate (Ziagen) 600 mg PO DAILY [facility] Last Admin: 09/07/17 09:27 Dose: 600 mg Acetaminophen (Tylenol 325mg Tab) 650 mg PO Q4H PRN PRN Reason: Fever >100.4 F Last Admin: 09/06/17 18:51 Dose: 650 mg Acetaminophen (Tylenol 650 Mg Supp) 650 mg RC Q6H PRN PRN Reason: Fever >100.4 F Last Admin: 09/05/17 16:20 Dose: 650 mg Enoxaparin Sodium (Lovenox) 30 mg SC DAILY [facility] PRN Reason: Protocol Last Admin: 09/07/17 09:26 Dose: 30 mg Home Med (Home Med) 1 unit PO DAILY [facility] Last Admin: 09/07/17 09:31 Dose: Not Given Dextrose/Sodium Chloride (Dextrose 5%/0.9% Ns 1000 Ml) 1,000 mls @ 50 mls/hr IV .Q20H [facility] Last Admin: 09/07/17 04:50 Dose: 50 mls/hr Insulin Human Regular (Humulin R Med) 0 units SC ACHS [facility] PRN Reason: Protocol Last Admin: 09/07/17 11:36 Dose: Not Given Lamivudine (Epivir) 50 mg PO DAILY [facility] Last Admin: 09/07/17 09:25 Dose: 50 mg Losartan Potassium (Cozaar) 100 mg PO QPM [facility] Last Admin: 09/06/17 18:47 Dose: 100 mg Metoprolol Tartrate (Lopressor) 100 mg PO Q12 [facility] Last Admin: 09/07/17 09:26 Dose: 100 mg Morphine Sulfate (Morphine) 1 mg IVP Q3H PRN PRN Reason: Pain, moderate (4-7) Last Admin: 09/07/17 12:52 Dose: 1 mg Oseltamivir Phosphate (Tamiflu Susp) 30 mg PO DAILY [facility] PRN Reason: Protocol Last Admin: 09/07/17 10:31 Dose: Not Given Sevelamer HCl (Renagel) 800 mg PO TID [facility] Last Admin: 09/07/17 13:54 Dose: 800 mg Tamsulosin HCl (Flomax) 0.4 mg PO DAILY [facility] Last Admin: 09/07/17 09:28 Dose: 0.4 mg Vitamin B Complex/Vit C/Folic Acid (Nephro-Christel) 1 tab PO 0800 [facility] Last Admin: 09/07/17 09:32 Dose: Not Given - Labs Labs: 09/07/17 06:30 09/07/17 06:30 PT 14.8 SECONDS (9.4-12.5) H 09/07/17 06:30 INR 1.28 (0.93-1.08) H 09/07/17 06:30 APTT 38.2 Seconds (25.1-36.5) H 08/30/17 19:07 - Constitutional Appears: Well, Non-toxic, No Acute Distress - Extremities Exam Additional comments: Left foot stable with no acute changes RLE focused exam: Vasc: DP and PT nonpalpable. Temperature gradient cool to cool. CFT delayed. No edema noted to bilateral LE. Derm:Ulceration noted to right medial malleolus with mixed fibrogranular base and erythematous rim. No malodor noted. Mild serosanguinous drainage noted. No purulent drainage noted. No tracking noted. No probe to bone. Second ulceration noted to lateral aspect of right heel with mixed fibrogranular base with hyperpigmented margins. Mild serosanguinous drainage noted. No malodor noted. No purulence noted. No tracking noted. No probe to bone. Mild erythema to margins <0.5cm. Neuro: gross and protective sensation diminished Ortho: Medial aspect of the ankle and medial aspect of the rearfoot, posterior heel, and midfoot are moderately painful with palpation; gross midfoot collapse is appreciated secondary to Charcot arthropathy - Neurological Exam Neurological Exam: Alert, Awake - Psychiatric Exam Psychiatric exam: Normal Affect, Normal Mood Assessment and Plan - Assessment and Plan (Free Text) Assessment: 72 year old male patient right ulcerations and s/p left 3rd digit partial amputation Plan: Patient seen and evaluated Discussed plan in detail with Dr. Dunn Labs, charts, vitals reviewed - T 101.0 yesterday evening; WBC 10.7 RLE was cleansed with saline and dressed with betadine and DSD No dressing needed to L foot at this time Wound cx 09/02 reveals growth of VREF Continue with multipodus boots at all times while in bed Pain management per medicine Podiatry will continue with local wound care to prevent further infection Await further recommendations from SUSAN DUNCAN to be done Sunday pending contact with family members Podiatry will continue to follow patient while in house <Jerrod Dunn - Last Filed: 09/07/17 18:03> Objective - Vital Signs/Intake and Output Vital Signs (last 24 hours): Temp Pulse Resp BP Pulse Ox 98.8 F 105 H 20 126/72 95 09/07/17 08:07 09/07/17 16:33 09/07/17 08:07 09/07/17 16:33 09/06/17 22:00 Intake and Output: 09/07/17 09/07/17 06:59 18:59 Intake Total 240 50 Output Total 100 50 Balance 140 0 - Medications Medications: Current Medications Abacavir Sulfate (Ziagen) 600 mg PO DAILY [facility] Last Admin: 09/07/17 09:27 Dose: 600 mg Acetaminophen (Tylenol 325mg Tab) 650 mg PO Q4H PRN PRN Reason: Fever >100.4 F Last Admin: 09/06/17 18:51 Dose: 650 mg Acetaminophen (Tylenol 650 Mg Supp) 650 mg RC Q6H PRN PRN Reason: Fever >100.4 F Last Admin: 09/05/17 16:20 Dose: 650 mg Enoxaparin Sodium (Lovenox) 30 mg SC DAILY [facility] PRN Reason: Protocol Last Admin: 09/07/17 09:26 Dose: 30 mg Home Med (Home Med) 1 unit PO DAILY [facility] Last Admin: 09/07/17 09:31 Dose: Not Given Dextrose/Sodium Chloride (Dextrose 5%/0.9% Ns 1000 Ml) 1,000 mls @ 50 mls/hr IV .Q20H [facility] Last Admin: 09/07/17 04:50 Dose: 50 mls/hr Insulin Human Regular (Humulin R Med) 0 units SC ACHS [facility] PRN Reason: Protocol Last Admin: 09/07/17 11:36 Dose: Not Given Lamivudine (Epivir) 50 mg PO DAILY [facility] Last Admin: 09/07/17 09:25 Dose: 50 mg Losartan Potassium (Cozaar) 100 mg PO QPM [facility] Last Admin: 09/06/17 18:47 Dose: 100 mg Metoprolol Tartrate (Lopressor) 100 mg PO Q12 [facility] Last Admin: 09/07/17 09:26 Dose: 100 mg Morphine Sulfate (Morphine) 1 mg IVP Q3H PRN PRN Reason: Pain, moderate (4-7) Last Admin: 09/07/17 16:45 Dose: 1 mg Oseltamivir Phosphate (Tamiflu Susp) 30 mg PO DAILY [facility] PRN Reason: Protocol Last Admin: 09/07/17 10:31 Dose: Not Given Sevelamer HCl (Renagel) 800 mg PO TID [facility] Last Admin: 09/07/17 13:54 Dose: 800 mg Tamsulosin HCl (Flomax) 0.4 mg PO DAILY [facility] Last Admin: 09/07/17 09:28 Dose: 0.4 mg Vitamin B Complex/Vit C/Folic Acid (Nephro-Christel) 1 tab PO 0800 [facility] Last Admin: 09/07/17 09:32 Dose: Not Given - Labs Labs: 09/07/17 06:30 09/07/17 06:30 PT 14.8 SECONDS (9.4-12.5) H 09/07/17 06:30 INR 1.28 (0.93-1.08) H 09/07/17 06:30 APTT 38.2 Seconds (25.1-36.5) H 01/11/18 19:07 Attending/Attestation - Attestation I have personally seen and examined this patient.: Yes I have fully participated in the care of the patient.: Yes I have reviewed all pertinent clinical information, including history, physical exam and plan: Yes
--- NOTE | 2017-09-07 16:21 | CP.PCM.PN ---
Subjective - Date & Time of Evaluation Date of Evaluation: 09/07/17 Time of Evaluation: 16:19 - Subjective Subjective: Follow up Nephrology Consultation: Assessment:critical Altered mental status, sepsis with UTI hx of prostate CA Hypertensive Chronic Kidney Disease (I12.9) ESRD on HD via permacath (TTS) Anemia (D64.9), HTN (I12.9) HIV on HAART, PVD s/p angioplasty Influenza Plan plan for tomorrow as per TTS. nephrovite 1 tab/day aransep weekly for anemia 09/06/17. PRBC as needed not on VDRA since Ca on high side, work up Vit D (34) /PTH/SPEP/CLYDE all neg. will check PTH-rp as well continue with binders for phos Hypertension control with meds as ordered. Patient on RAAS edyta as losartan ID following started flomax. continue with D5NS as with low glucose. d/c IVF once oral intake good. podiatry planning for AKA Dose meds/antibiotics for ESRD status. Avoid fleets enema/magnesium based laxatives. Avoid nephrotoxins/NSAIDs/ iodinated contrast (unless needed emergently) Further work up/management as per primary team Thanks for allowing me to participate in care of your patient. Will follow patient with you. Please call if any Qs. d/w team Dr Yandel Arechiga Office: [phone] reason for consult: ESRD, HTN HPI: Pt is a 72 y/o M with hx of HIV on HAART, PVD s/p angioplasty, hypertension (10-15 years), ESRD on HD (via permacath) TTS @ [facility], left foot toe amputations, prostate CA initially admitted with AMS, fever and sepsis renal consult for ESRD, HTN management pt unable to provide hx due to AMS ROS: more communicative today but still limited Physical Examination: General Appearance: comfortable, in no acute respiratory distress, ill appearing Vitals reviewed and noted as below Head; Atraumatic, normocephalic ENT: no ulcers no thrush. Tongue is midline dry. Oropharynx: no rash or ulcers. EYES: Pupils are equal, round and reactive to light accommodation. Eye muscles and extraocular movement intact. Sclera is anicteric. Neck; supple no lymphadenopathy, no thyromegaly or bruit Lungs: Normal respiratory rate/effort. Breath sounds bilateral clear Heart: Normal rate. s1s2 normal. No rub or gallop. Extremities: no edema. No varicose veins. Neurological: Patient is more awake and communicative. Skin: Warm and dry. Normal turgor. No rash. Palpitation: Normal elasticity for age Abdomen: Abdomen is soft. Bowel sounds +. There is mild lower abdominal tenderness, no guarding/rigidity no organomegaly Psych: unable MSK: Digits and nails normal, left foot toe amputations in past. Rt foot in dressing. : kidney or bladder not palpable. Access: permacath and maturing left AVF Labs/imaging/EKG reviewed. Past medical history, past surgical history, family history, social history, allergy reviewed and noted as below Family hx: sister was on dialysis. Rest non-contributory Objective - Vital Signs/Intake and Output Vital Signs (last 24 hours): Temp Pulse Resp BP Pulse Ox 98.8 F 80 20 120/70 95 09/07/17 08:07 09/07/17 09:26 09/07/17 08:07 09/07/17 09:26 09/06/17 22:00 Intake and Output: 09/07/17 09/07/17 06:59 18:59 Intake Total 240 50 Output Total 100 50 Balance 140 0 - Medications Medications: Current Medications Abacavir Sulfate (Ziagen) 600 mg PO DAILY [facility] Last Admin: 09/07/17 09:27 Dose: 600 mg Acetaminophen (Tylenol 325mg Tab) 650 mg PO Q4H PRN PRN Reason: Fever >100.4 F Last Admin: 09/06/17 18:51 Dose: 650 mg Acetaminophen (Tylenol 650 Mg Supp) 650 mg RC Q6H PRN PRN Reason: Fever >100.4 F Last Admin: 09/05/17 16:20 Dose: 650 mg Enoxaparin Sodium (Lovenox) 30 mg SC DAILY [facility] PRN Reason: Protocol Last Admin: 09/07/17 09:26 Dose: 30 mg Home Med (Home Med) 1 unit PO DAILY [facility] Last Admin: 09/07/17 09:31 Dose: Not Given Dextrose/Sodium Chloride (Dextrose 5%/0.9% Ns 1000 Ml) 1,000 mls @ 50 mls/hr IV .Q20H [facility] Last Admin: 09/07/17 04:50 Dose: 50 mls/hr Insulin Human Regular (Humulin R Med) 0 units SC ACHS [facility] PRN Reason: Protocol Last Admin: 09/07/17 11:36 Dose: Not Given Lamivudine (Epivir) 50 mg PO DAILY [facility] Last Admin: 09/07/17 09:25 Dose: 50 mg Losartan Potassium (Cozaar) 100 mg PO QPM [facility] Last Admin: 09/06/17 18:47 Dose: 100 mg Metoprolol Tartrate (Lopressor) 100 mg PO Q12 [facility] Last Admin: 09/07/17 09:26 Dose: 100 mg Morphine Sulfate (Morphine) 1 mg IVP Q3H PRN PRN Reason: Pain, moderate (4-7) Last Admin: 09/07/17 12:52 Dose: 1 mg Oseltamivir Phosphate (Tamiflu Susp) 30 mg PO DAILY [facility] PRN Reason: Protocol Last Admin: 09/07/17 10:31 Dose: Not Given Sevelamer HCl (Renagel) 800 mg PO TID [facility] Last Admin: 09/07/17 13:54 Dose: 800 mg Tamsulosin HCl (Flomax) 0.4 mg PO DAILY [facility] Last Admin: 09/07/17 09:28 Dose: 0.4 mg Vitamin B Complex/Vit C/Folic Acid (Nephro-Christel) 1 tab PO 0800 [facility] Last Admin: 09/07/17 09:32 Dose: Not Given - Labs Labs: 09/07/17 06:30 09/07/17 06:30 PT 14.8 SECONDS (9.4-12.5) H 09/07/17 06:30 INR 1.28 (0.93-1.08) H 09/07/17 06:30 APTT 38.2 Seconds (25.1-36.5) H 08/30/17 19:07
--- NOTE | 2017-09-07 19:42 | CON ---
DATE: 09/07/2017 CARDIOLOGY CONSULTATION HISTORY OF PRESENT ILLNESS: The patient is a 72-year-old male who presents with altered mental status. He is found to be septic. He suffers from peripheral vascular disease in which he underwent a recent recannulization of distal vessels. However, because of his recurrent ulcers and lack of perfusion in the lower extremities, an AKA is planned. PAST MEDICAL HISTORY: The patient's past medical history includes hypertension, anemia, history of HIV as well as end-stage renal disease who is currently on hemodialysis. The patient denies chest pain, denies shortness of breath, and has no known history of cardiac disease. SOCIAL HISTORY: He denies previous smoking. REVIEW OF SYSTEMS: 14-point review of systems is reviewed. No angina. No shortness of breath. No paroxysmal nocturia. No orthopnea. PHYSICAL EXAMINATION: GENERAL: The patient is a cachectic male in no acute distress. VITAL SIGNS: Blood pressure is 120/70, heart rate in the 80s. NECK: Negative JVD. LUNGS: Without rales. HEART: S1, S2. EXTREMITIES: Without edema. EKG shows normal sinus rhythm with nonspecific ST-T changes. No acute changes noted. Laboratories include a BUN and creatinine of 25 and 4.1, hemoglobin is 8.3 with a white count is 10.7. Echocardiogram performed 3 days ago reveal an ejection fraction of 54%. No aortic or mitral valve disease. There is mild pulmonary hypertension with a RSVP of 39. There is some mild AI as well as TR. IMPRESSION: 1. The patient's cardiac status although with high probability for having coronary disease does not appear to have any active disease at this time. There is no evidence for acute ischemia. 2. Severe peripheral vascular disease. 3. Recurrent ulcers. 4. History of human immunodeficiency virus. 5. Renal insufficiency on renal dialysis. 6. Anemia. Given these findings, the patient's cardiac status is at its optimum at this time. He is at reasonable cardiac risk for his planned surgery. Emmanuel Weller MD
--- NOTE | 2017-09-07 21:34 | CP.PCM.PN ---
Subjective - Date & Time of Evaluation Date of Evaluation: 09/07/17 Time of Evaluation: 10:55 - Subjective Subjective: Comfortable, no fevers, no diarrhea, no dizziness. Objective - Vital Signs/Intake and Output Vital Signs (last 24 hours): Temp Pulse Resp BP Pulse Ox 98.8 F 80 20 120/70 95 09/07/17 08:07 09/07/17 09:26 09/07/17 08:07 09/07/17 09:26 09/06/17 22:00 Intake and Output: 09/07/17 09/07/17 06:59 18:59 Intake Total 240 30 Output Total 100 50 Balance 140 -20 - Medications Medications: Current Medications Abacavir Sulfate (Ziagen) 600 mg PO DAILY [facility] Last Admin: 09/07/17 09:27 Dose: 600 mg Acetaminophen (Tylenol 325mg Tab) 650 mg PO Q4H PRN PRN Reason: Fever >100.4 F Last Admin: 09/06/17 18:51 Dose: 650 mg Acetaminophen (Tylenol 650 Mg Supp) 650 mg RC Q6H PRN PRN Reason: Fever >100.4 F Last Admin: 09/05/17 16:20 Dose: 650 mg Enoxaparin Sodium (Lovenox) 30 mg SC DAILY [facility] PRN Reason: Protocol Last Admin: 09/07/17 09:26 Dose: 30 mg Home Med (Home Med) 1 unit PO DAILY [facility] Last Admin: 09/07/17 09:31 Dose: Not Given Dextrose/Sodium Chloride (Dextrose 5%/0.9% Ns 1000 Ml) 1,000 mls @ 50 mls/hr IV .Q20H [facility] Last Admin: 09/07/17 04:50 Dose: 50 mls/hr Potassium Chloride (Potassium Chloride 10 Meq/100 Ml) 10 meq in 100 mls @ 50 mls/hr IVPB Q2H [facility] Stop: 09/07/17 13:44 Insulin Human Regular (Humulin R Med) 0 units SC ACHS [facility] PRN Reason: Protocol Last Admin: 09/07/17 08:00 Dose: Not Given Lamivudine (Epivir) 50 mg PO DAILY [facility] Last Admin: 09/07/17 09:25 Dose: 50 mg Losartan Potassium (Cozaar) 100 mg PO QPM [facility] Last Admin: 09/06/17 18:47 Dose: 100 mg Metoprolol Tartrate (Lopressor) 100 mg PO Q12 [facility] Last Admin: 09/07/17 09:26 Dose: 100 mg Morphine Sulfate (Morphine) 1 mg IVP Q3H PRN PRN Reason: Pain, moderate (4-7) Oseltamivir Phosphate (Tamiflu Susp) 30 mg PO DAILY [facility] PRN Reason: Protocol Last Admin: 09/07/17 10:31 Dose: Not Given Sevelamer HCl (Renagel) 800 mg PO TID [facility] Last Admin: 09/07/17 09:26 Dose: 800 mg Tamsulosin HCl (Flomax) 0.4 mg PO DAILY [facility] Last Admin: 09/07/17 09:28 Dose: 0.4 mg Vitamin B Complex/Vit C/Folic Acid (Nephro-Christel) 1 tab PO 0800 [facility] Last Admin: 09/07/17 09:32 Dose: Not Given - Labs Labs: 09/07/17 06:30 09/07/17 06:30 PT 14.8 SECONDS (9.4-12.5) H 09/07/17 06:30 INR 1.28 (0.93-1.08) H 09/07/17 06:30 APTT 38.2 Seconds (25.1-36.5) H 08/30/17 19:07 - Constitutional Appears: Chronically Ill - Head Exam Head Exam: NORMAL INSPECTION - Cardiovascular Exam Cardiovascular Exam: +S1, +S2 - GI/Abdominal Exam GI & Abdominal Exam: Soft. absent: Tenderness Assessment and Plan - Assessment and Plan (Free Text) Plan: Assessment severe PAD S/P angioplasty of the left tibial artery UTI with MRSA and Strep viridans systemic viral illness with Influenza history of left foot 3rd digit chronic osteomyelitis S/P amputation and debridement right sided nephrolithiasis history of severe sepsis with acute on chronic renal failure probably due to pyelonephritis with E. coli bacteremia history of C. diff. associated diarrhea Charcot foot, left history of left 2nd toe dry gangrene Chronic renal failure on hemodialysis HTN prostate CA HIV (patient goes to the [place] with last CD4 count here at [facility] 03/2016 349 and virus load < 1.3 log) history of osteomyelitis of left first toe S/P amputation (2015) gout history of left foot ulcers Plan continue IV Vanco (intermittent) day 7 for 2-3 weeks and Tamiflu day 2 of 5 continue antiretroviral therapy (lamivudine, abacavir on formulary but dolutegravir should be taken by patient from his home supply) follow up plan for AKA overall prognosis is poor
[2017-09-08] MEDS: Dextrose 5%/0.9% NS 1,000 ML IV SCH (01:25)
[2017-09-08 07:13] LABS: MEAN CELL VOLUME 96.9 fl (80.0-105.0); MEAN CORPUSCULAR HEMOGLOBIN 29.5 pg (25.0-35.0); MEAN CORPUSCULAR HGB CONC 30.4 g/dl (31.0-37.0); MEAN PLATELET VOLUME 10.9 fl (7.0-11.0); RBC 2.58 10^6/uL (3.5-6.1); RED CELL DISTRIBUTION WIDTH 17.1 % (11.5-14.5); WHITE BLOOD COUNT 8.6 10^3/ul (4.5-11.0)
--- NOTE | 2017-09-08 07:36 | CP.PCM.PN ---
Subjective - Date & Time of Evaluation Date of Evaluation: 09/08/17 Time of Evaluation: 07:34 - Subjective Subjective: Surgery: Dr. Martinez Pt seen and examined. No acute events overnight. Pt is minimally responsive to commands. No fevers/chills recorded overnight. Objective - Vital Signs/Intake and Output Vital Signs (last 24 hours): Temp Pulse Resp BP Pulse Ox 98.6 F 62 18 141/62 96 09/07/17 16:00 09/07/17 23:04 09/07/17 16:00 09/07/17 23:04 09/07/17 16:00 Intake and Output: 09/08/17 09/08/17 06:59 18:59 Intake Total 200 Output Total 100 50 Balance 100 -50 - Medications Medications: Current Medications Abacavir Sulfate (Ziagen) 600 mg PO DAILY [facility] Last Admin: 09/07/17 09:27 Dose: 600 mg Acetaminophen (Tylenol 325mg Tab) 650 mg PO Q4H PRN PRN Reason: Fever >100.4 F Last Admin: 09/06/17 18:51 Dose: 650 mg Acetaminophen (Tylenol 650 Mg Supp) 650 mg RC Q6H PRN PRN Reason: Fever >100.4 F Last Admin: 09/05/17 16:20 Dose: 650 mg Enoxaparin Sodium (Lovenox) 30 mg SC DAILY [facility] PRN Reason: Protocol Last Admin: 09/07/17 09:26 Dose: 30 mg Home Med (Home Med) 1 unit PO DAILY [facility] Last Admin: 09/07/17 09:31 Dose: Not Given Dextrose/Sodium Chloride (Dextrose 5%/0.9% Ns 1000 Ml) 1,000 mls @ 50 mls/hr IV .Q20H [facility] Last Admin: 09/08/17 01:25 Dose: 50 mls/hr Insulin Human Regular (Humulin R Med) 0 units SC ACHS [facility] PRN Reason: Protocol Last Admin: 09/07/17 23:07 Dose: Not Given Lamivudine (Epivir) 50 mg PO DAILY [facility] Last Admin: 09/07/17 09:25 Dose: 50 mg Losartan Potassium (Cozaar) 100 mg PO QPM [facility] Last Admin: 09/07/17 17:59 Dose: 100 mg Metoprolol Tartrate (Lopressor) 100 mg PO Q12 [facility] Last Admin: 09/07/17 23:04 Dose: 100 mg Morphine Sulfate (Morphine) 1 mg IVP Q3H PRN PRN Reason: Pain, moderate (4-7) Last Admin: 09/07/17 16:45 Dose: 1 mg Oseltamivir Phosphate (Tamiflu Susp) 30 mg PO DAILY [facility] PRN Reason: Protocol Last Admin: 09/07/17 10:31 Dose: Not Given Sevelamer HCl (Renagel) 800 mg PO TID [facility] Last Admin: 09/07/17 17:59 Dose: 800 mg Tamsulosin HCl (Flomax) 0.4 mg PO DAILY [facility] Last Admin: 09/07/17 09:28 Dose: 0.4 mg Vitamin B Complex/Vit C/Folic Acid (Nephro-Christel) 1 tab PO 0800 [facility] Last Admin: 09/07/17 09:32 Dose: Not Given - Labs Labs: 09/07/17 06:30 09/07/17 06:30 PT 14.8 SECONDS (9.4-12.5) H 09/07/17 06:30 INR 1.28 (0.93-1.08) H 09/07/17 06:30 APTT 38.2 Seconds (25.1-36.5) H 08/30/17 19:07 - Constitutional Appears: No Acute Distress - ENT Exam ENT Exam: Mucous Membranes Moist - Respiratory Exam Respiratory Exam: NORMAL BREATHING PATTERN - Cardiovascular Exam Cardiovascular Exam: RRR - GI/Abdominal Exam GI & Abdominal Exam: Soft. 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 Juan Borja, PGY-3 Surgery
[2017-09-08 07:43] LABS: ALB/GLOB RATIO 0.7 (1.1-1.8); ALBUMIN 2.6 g/dL (3.0-4.8); MAGNESIUM 1.9 mg/dL (1.7-2.2)
[2017-09-08 07:49] LABS: CALCIUM 8.9 mg/dL (8.4-10.5)
[2017-09-08 07:53] LABS: HEMOGLOBIN 7.6 g/dL (14.0-18.0)
[2017-09-08] MEDS: Multivitamin Vitamin B Complex (Nephro-Vite) Tab PO SCH (10:20)
[2017-09-08] MEDS: Enoxaparin 30 mg Syringe SC SCH (10:21)
[2017-09-08] MEDS: Oseltamivir 6 MG/ML PO SCH (10:30)
[2017-09-08] MEDS: LamiVUDine 10 mg/ml Syringe PO SCH (10:30)
--- NOTE | 2017-09-08 10:48 | CP.PCM.PN ---
Subjective - Date & Time of Evaluation Date of Evaluation: 09/08/17 Time of Evaluation: 09:00 - Subjective Subjective: IMPRESSION: Altered mental status, sepsis with UTI hx of prostate CA Hypertensive Chronic Kidney Disease (I12.9) ESRD on HD via permacath (TTS) Anemia (D64.9), HTN (I12.9) HIV on HAART, PVD s/p angioplasty Influenza Plan Seen on HD stable continue tts TTS. nephrovite 1 tab/day aransep weekly for anemia last given 09/06/17. PRBC as needed per primary not on VDRA since Ca on high side, work up Vit D (34) /PTH/SPEP/CLYDE all neg. F/ u PTH-rp BP stable Abx p[er ID dose for ESRD podiatry planning for AKA Subjective: seen on HD PE: +S1+s2 lungs cta Labs/imaging/EKG reviewed. Past medical history, past surgical history, family history, social history, allergy reviewed and noted as below Family hx: sister was on dialysis. Rest non-contributory Objective - Vital Signs/Intake and Output Vital Signs (last 24 hours): Temp Pulse Resp BP Pulse Ox 98.8 F 79 20 158/76 H 96 09/08/17 08:00 09/08/17 08:00 09/08/17 08:00 09/08/17 08:00 09/08/17 08:00 Intake and Output: 09/08/17 09/08/17 06:59 18:59 Intake Total 800 Output Total 100 50 Balance 700 -50 - Medications Medications: Current Medications Abacavir Sulfate (Ziagen) 600 mg PO DAILY [facility] Last Admin: 09/07/17 09:27 Dose: 600 mg Acetaminophen (Tylenol 325mg Tab) 650 mg PO Q4H PRN PRN Reason: Fever >100.4 F Last Admin: 09/06/17 18:51 Dose: 650 mg Acetaminophen (Tylenol 650 Mg Supp) 650 mg RC Q6H PRN PRN Reason: Fever >100.4 F Last Admin: 09/05/17 16:20 Dose: 650 mg Enoxaparin Sodium (Lovenox) 30 mg SC DAILY [facility] PRN Reason: Protocol Last Admin: 09/07/17 09:26 Dose: 30 mg Home Med (Home Med) 1 unit PO DAILY [facility] Last Admin: 09/07/17 09:31 Dose: Not Given Dextrose/Sodium Chloride (Dextrose 5%/0.9% Ns 1000 Ml) 1,000 mls @ 50 mls/hr IV .Q20H [facility] Last Admin: 09/08/17 01:25 Dose: 50 mls/hr Insulin Human Regular (Humulin R Med) 0 units SC ACHS [facility] PRN Reason: Protocol Last Admin: 09/07/17 23:07 Dose: Not Given Lamivudine (Epivir) 50 mg PO DAILY [facility] Last Admin: 09/07/17 09:25 Dose: 50 mg Losartan Potassium (Cozaar) 100 mg PO QPM [facility] Last Admin: 09/07/17 17:59 Dose: 100 mg Metoprolol Tartrate (Lopressor) 100 mg PO Q12 [facility] Last Admin: 09/07/17 23:04 Dose: 100 mg Morphine Sulfate (Morphine) 1 mg IVP Q3H PRN PRN Reason: Pain, moderate (4-7) Last Admin: 09/07/17 16:45 Dose: 1 mg Oseltamivir Phosphate (Tamiflu Susp) 30 mg PO DAILY [facility] PRN Reason: Protocol Last Admin: 09/07/17 10:31 Dose: Not Given Sevelamer HCl (Renagel) 800 mg PO TID [facility] Last Admin: 09/07/17 17:59 Dose: 800 mg Tamsulosin HCl (Flomax) 0.4 mg PO DAILY [facility] Last Admin: 09/07/17 09:28 Dose: 0.4 mg Vitamin B Complex/Vit C/Folic Acid (Nephro-Christel) 1 tab PO 0800 [facility] Last Admin: 09/07/17 09:32 Dose: Not Given - Labs Labs: 09/08/17 07:00 09/08/17 07:00 PT 14.8 SECONDS (9.4-12.5) H 09/07/17 06:30 INR 1.28 (0.93-1.08) H 09/07/17 06:30 APTT 38.2 Seconds (25.1-36.5) H 08/30/17 19:07
[2017-09-08] MEDS: Insulin Reg-MEDIUM-Coverage SC SCH ×3 (10:49→21:28)
[2017-09-08] MEDS ORDERED: Dextrose 50% SYRINGE Inj (50 ml) IVP STA (11:26)
[2017-09-08] MEDS: Morphine 2 mg/ml ISec IVP PRN (21:28)
--- NOTE | 2017-09-09 03:45 | PN ---
DATE: 09/08/2017 SUBJECTIVE: The patient is in bed, in no acute distress. PHYSICAL EXAMINATION: VITAL SIGNS: Temperature is 98, blood pressure is 140/70. HEENT: Unremarkable. NECK: Supple. LUNGS: Have decreased breath sounds. HEART: Normal S1 and S2. ABDOMEN: Soft, nontender. LABORATORY DATA: Reveals white count of 8.6, hemoglobin of 7. BUN of 29, creatinine of 4.4. The urinalysis is noted, and random vancomycin level is 60.6. Influenza is positive. ASSESSMENT AND PLAN: This is a 72-year-old male with severe peripheral artery disease, status post angioplasty of the left tibial artery, urinary tract infection with Methicillin-resistant Staphylococcus aureus and Streptococcus viridans, and systemic viral illness with influenza and history of left foot chronic osteomyelitis, status post amputation, debridement, on vancomycin day #8, would complete for 3 to 4 weeks, and Tamiflu day #3 of 5 days, positive human immunodeficiency virus; on lamivudine, Abacavir, and dolutegravir, and we will follow with you. Cesar Flowers MD
[2017-09-09 09:58] LABS: MEAN CELL VOLUME 95.9 fl (80.0-105.0); MEAN CORPUSCULAR HEMOGLOBIN 29.3 pg (25.0-35.0); MEAN CORPUSCULAR HGB CONC 30.6 g/dl (31.0-37.0); MEAN PLATELET VOLUME 10.7 fl (7.0-11.0); RBC 3.41 10^6/uL (3.5-6.1); RED CELL DISTRIBUTION WIDTH 17.9 % (11.5-14.5)
[2017-09-09 10:23] LABS: INR 1.19 (0.93-1.08); PROTHROMBIN TIME 13.7 SECONDS (9.4-12.5)
[2017-09-09 10:35] LABS: ALB/GLOB RATIO 0.7 (1.1-1.8); ALBUMIN 2.9 g/dL (3.0-4.8); CALCIUM 9.7 mg/dL (8.4-10.5)
--- NOTE | 2017-09-09 10:55 | CP.PCM.PN ---
Subjective - Date & Time of Evaluation Date of Evaluation: 09/09/17 Time of Evaluation: 07:45 - Subjective Subjective: Surgery Progress note. Dr. Martinez Pt seen and examined. No acute events reported overnight. S/p 1U PRBC. Patient on droplet and contact precautions. No reported Fevers. No new complaints. Objective - Vital Signs/Intake and Output Vital Signs (last 24 hours): Temp Pulse Resp BP Pulse Ox 97.2 F L 72 24 148/63 96 09/09/17 07:30 09/09/17 07:30 09/09/17 07:30 09/09/17 07:30 09/09/17 07:30 Intake and Output: 09/09/17 09/09/17 06:59 18:59 Intake Total 533 0 Output Total 100 50 Balance 433 -50 - Medications Medications: Current Medications Abacavir Sulfate (Ziagen) 600 mg PO DAILY [facility] Last Admin: 09/08/17 10:29 Dose: 600 mg Acetaminophen (Tylenol 325mg Tab) 650 mg PO Q4H PRN PRN Reason: Fever >100.4 F Last Admin: 09/09/17 01:12 Dose: 650 mg Acetaminophen (Tylenol 650 Mg Supp) 650 mg RC Q6H PRN PRN Reason: Fever >100.4 F Last Admin: 09/05/17 16:20 Dose: 650 mg Enoxaparin Sodium (Lovenox) 30 mg SC DAILY [facility] PRN Reason: Protocol Last Admin: 09/08/17 10:21 Dose: 30 mg Home Med (Home Med) 1 unit PO DAILY [facility] Last Admin: 09/08/17 10:49 Dose: Not Given Dextrose/Sodium Chloride (Dextrose 5%/0.9% Ns 1000 Ml) 1,000 mls @ 50 mls/hr IV .Q20H [facility] Last Admin: 09/08/17 01:25 Dose: 50 mls/hr Insulin Human Regular (Humulin R Med) 0 units SC ACHS [facility] PRN Reason: Protocol Last Admin: 09/08/17 21:28 Dose: Not Given Lamivudine (Epivir) 50 mg PO DAILY [facility] Last Admin: 09/08/17 10:30 Dose: 50 mg Losartan Potassium (Cozaar) 100 mg PO QPM [facility] Last Admin: 09/08/17 18:06 Dose: 100 mg Metoprolol Tartrate (Lopressor) 100 mg PO Q12 [facility] Last Admin: 09/08/17 21:28 Dose: 100 mg Morphine Sulfate (Morphine) 1 mg IVP Q3H PRN PRN Reason: Pain, moderate (4-7) Last Admin: 09/08/17 21:28 Dose: 1 mg Oseltamivir Phosphate (Tamiflu Susp) 30 mg PO DAILY [facility] PRN Reason: Protocol Last Admin: 09/08/17 10:30 Dose: 2.7 ml Sevelamer HCl (Renagel) 800 mg PO TID [facility] Last Admin: 09/08/17 18:06 Dose: 800 mg Tamsulosin HCl (Flomax) 0.4 mg PO DAILY [facility] Last Admin: 09/08/17 10:20 Dose: 0.4 mg Vitamin B Complex/Vit C/Folic Acid (Nephro-Christel) 1 tab PO 0800 [facility] Last Admin: 09/08/17 10:20 Dose: 1 tab - Labs Labs: 09/09/17 09:50 09/09/17 09:50 PT 13.7 SECONDS (9.4-12.5) H 09/09/17 09:50 INR 1.19 (0.93-1.08) H 09/09/17 09:50 APTT 38.2 Seconds (25.1-36.5) H 08/30/17 19:07 - Constitutional Appears: Non-toxic, No Acute Distress - Head Exam Head Exam: ATRAUMATIC, NORMAL INSPECTION, NORMOCEPHALIC - Eye Exam Eye Exam: EOMI, Normal appearance - ENT Exam ENT Exam: Mucous Membranes Moist - Respiratory Exam Respiratory Exam: NORMAL BREATHING PATTERN. absent: Accessory Muscle Use, Respiratory Distress - GI/Abdominal Exam GI & Abdominal Exam: Soft. absent: Distended, Guarding, Tenderness - Extremities Exam Additional comments: Contracted right lower extremity with right foot dressing in place. - Skin Skin Exam: Dry, Warm Assessment and Plan - Assessment and Plan (Free Text) Assessment: 72yo M with right leg contracture and non-healing wounds Plan: - Plan for Phong DUNCAN in OR Sunday, 09/10 - NPO past mn - Hold AC tomorrow - Had detailed family meeting today. Celi Gutierrez ([phone]), present for meeting. After long discussion about benefits, risks, and assessments, family consented to proceed with surgical plan: Phong DUNCAN. Signed informed consent on chart. - continue to medically maximize for OR Further recs as per Dr. Juan Diego PGY1 surgery pager: [phone]
--- NOTE | 2017-09-09 11:04 | CP.PCM.PN ---
<Lori Alvarez - Last Filed: 09/09/17 11:00> Subjective - Date & Time of Evaluation Date of Evaluation: 09/09/17 Time of Evaluation: 11:00 - Subjective Subjective: Podiatry Progress Note for Dr. Caldwell 72 y/o male seen at bedside for right LE ulcerations and left 3rd digit partial amputation with necrotic skin changes. Patient is seen resting at bedside. Patient is alert. Patient dressing to the LE is clean, dry, and intact without strikethrough noted. Patient was seen wearing multipodus boots during the time of visitation. He currently denies any n/v/f/c/sob/cp. Objective - Vital Signs/Intake and Output Vital Signs (last 24 hours): Temp Pulse Resp BP Pulse Ox 97.2 F L 72 24 148/63 96 09/09/17 07:30 09/09/17 07:30 09/09/17 07:30 09/09/17 07:30 09/09/17 07:30 Intake and Output: 09/09/17 09/09/17 06:59 18:59 Intake Total 533 0 Output Total 100 50 Balance 433 -50 - Medications Medications: Current Medications Abacavir Sulfate (Ziagen) 600 mg PO DAILY [facility] Last Admin: 09/08/17 10:29 Dose: 600 mg Acetaminophen (Tylenol 325mg Tab) 650 mg PO Q4H PRN PRN Reason: Fever >100.4 F Last Admin: 09/09/17 01:12 Dose: 650 mg Acetaminophen (Tylenol 650 Mg Supp) 650 mg RC Q6H PRN PRN Reason: Fever >100.4 F Last Admin: 09/05/17 16:20 Dose: 650 mg Enoxaparin Sodium (Lovenox) 30 mg SC DAILY [facility] PRN Reason: Protocol Last Admin: 09/08/17 10:21 Dose: 30 mg Home Med (Home Med) 1 unit PO DAILY [facility] Last Admin: 09/08/17 10:49 Dose: Not Given Dextrose/Sodium Chloride (Dextrose 5%/0.9% Ns 1000 Ml) 1,000 mls @ 50 mls/hr IV .Q20H [facility] Last Admin: 09/08/17 01:25 Dose: 50 mls/hr Insulin Human Regular (Humulin R Med) 0 units SC ACHS [facility] PRN Reason: Protocol Last Admin: 09/08/17 21:28 Dose: Not Given Lamivudine (Epivir) 50 mg PO DAILY [facility] Last Admin: 09/08/17 10:30 Dose: 50 mg Losartan Potassium (Cozaar) 100 mg PO QPM [facility] Last Admin: 09/08/17 18:06 Dose: 100 mg Metoprolol Tartrate (Lopressor) 100 mg PO Q12 [facility] Last Admin: 09/08/17 21:28 Dose: 100 mg Morphine Sulfate (Morphine) 1 mg IVP Q3H PRN PRN Reason: Pain, moderate (4-7) Last Admin: 09/08/17 21:28 Dose: 1 mg Oseltamivir Phosphate (Tamiflu Susp) 30 mg PO DAILY [facility] PRN Reason: Protocol Last Admin: 09/08/17 10:30 Dose: 2.7 ml Sevelamer HCl (Renagel) 800 mg PO TID [facility] Last Admin: 09/08/17 18:06 Dose: 800 mg Tamsulosin HCl (Flomax) 0.4 mg PO DAILY [facility] Last Admin: 09/08/17 10:20 Dose: 0.4 mg Vitamin B Complex/Vit C/Folic Acid (Nephro-Christel) 1 tab PO 0800 [facility] Last Admin: 09/08/17 10:20 Dose: 1 tab - Labs Labs: 09/09/17 09:50 09/09/17 09:50 PT 13.7 SECONDS (9.4-12.5) H 09/09/17 09:50 INR 1.19 (0.93-1.08) H 09/09/17 09:50 APTT 38.2 Seconds (25.1-36.5) H 08/30/17 19:07 - Constitutional Appears: No Acute Distress - Extremities Exam Additional comments: Left foot stable with no acute changes Right lower extremity focused exam: Vasc: DP and PT pulses non-palpable. Temperature gradient cool to cool from proximal to distal. CFT delayed. No edema noted to bilateral LE Derm: Ulceration noted to right medial malleolus with mixed fibrogranular base and erythematous rim. No malodor noted. Mild serosanguinous drainage noted. No purulent drainage noted. No tracking noted. No probe to bone. Second ulceration noted to lateral aspect of right heel with mixed fibrogranular base with hyperpigmented margins. Mild serosanguinous drainage noted. No malodor noted. No purulence noted. No tracking noted. No probe to bone. Mild erythema to margins <0.5cm. Neuro: gross and protective sensation diminished Ortho: Medial aspect of the ankle and medial aspect of the rearfoot, posterior heel, and midfoot are moderately painful with palpation; gross midfoot collapse is appreciated secondary to Charcot arthropathy. Right lower extremity is severely contracted - Neurological Exam Neurological Exam: Alert, Awake - Psychiatric Exam Psychiatric exam: Normal Affect, Normal Mood Assessment and Plan - Assessment and Plan (Free Text) Assessment: 72 year old male patient right ulcerations and s/p left 3rd digit partial amputation Plan: Patient seen and evaluated Discussed plan in detail with Dr. 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 Continue with multipodus boots at all times while in bed Pain management per medicine Continue IV abx per ID Podiatry will continue with local wound care to prevent further infection Patient to OR tomorrow for AKA per surgery <Suri Caldwell - Last Filed: 09/13/17 13:17> Objective - Vital Signs/Intake and Output Vital Signs (last 24 hours): Temp Pulse Resp BP Pulse Ox 98.3 F 82 18 151/73 H 99 09/13/17 07:30 09/13/17 07:30 09/13/17 07:30 09/13/17 07:30 09/13/17 07:30 Intake and Output: 09/13/17 09/13/17 06:59 18:59 Intake Total 0 Output Total 50 5 Balance -50 -5 - Medications Medications: Current Medications Abacavir Sulfate (Ziagen) 600 mg PO DAILY [facility] Last Admin: 09/12/17 14:58 Dose: Not Given Acetaminophen (Tylenol 325mg Tab) 650 mg PO Q4H PRN PRN Reason: Fever >100.4 F Last Admin: 09/13/17 01:15 Dose: 650 mg Acetaminophen (Tylenol 650 Mg Supp) 650 mg RC Q6H PRN PRN Reason: Fever >100.4 F Last Admin: 09/11/17 14:46 Dose: 650 mg Enoxaparin Sodium (Lovenox) 30 mg SC DAILY [facility] PRN Reason: Protocol Last Admin: 09/09/17 11:06 Dose: 30 mg Home Med (Home Med) 1 unit PO DAILY [facility] Last Admin: 09/12/17 19:33 Dose: 1 unit Hydromorphone HCl (Dilaudid) 0.5 mg IVP Q4H PRN PRN Reason: Pain, moderate (4-7) Last Admin: 09/11/17 14:46 Dose: 0.5 mg Dextrose/Sodium Chloride (Dextrose 5%/0.9% Ns 1000 Ml) 1,000 mls @ 50 mls/hr IV .Q20H [facility] Last Admin: 09/12/17 11:33 Dose: 50 mls/hr Insulin Human Regular (Humulin R Med) 0 units SC ACHS [facility] PRN Reason: Protocol Last Admin: 09/13/17 12:26 Dose: Not Given Lamivudine (Epivir) 50 mg PO DAILY [facility] Last Admin: 09/12/17 11:32 Dose: 50 mg Losartan Potassium (Cozaar) 100 mg PO QPM [facility] Last Admin: 09/12/17 19:33 Dose: 100 mg Metoprolol Tartrate (Lopressor) 100 mg PO Q12 [facility] Last Admin: 09/13/17 10:00 Dose: Not Given Oseltamivir Phosphate (Tamiflu Susp) 30 mg PO DAILY [facility] PRN Reason: Protocol Last Admin: 09/12/17 11:32 Dose: 5 ml Sevelamer HCl (Renagel) 800 mg PO TID [facility] Last Admin: 09/13/17 10:00 Dose: Not Given Tamsulosin HCl (Flomax) 0.4 mg PO DAILY [facility] Last Admin: 09/12/17 11:26 Dose: 0.4 mg Vitamin B Complex/Vit C/Folic Acid (Nephro-Christel) 1 tab PO 0800 [facility] Last Admin: 09/13/17 09:00 Dose: Not Given - Labs Labs: 09/13/17 09:00 09/13/17 09:00 PT 13.7 SECONDS (9.4-12.5) H 09/09/17 09:50 INR 1.19 (0.93-1.08) H 09/09/17 09:50 APTT 38.2 Seconds (25.1-36.5) H 08/30/17 19:07 Attending/Attestation - Attestation I have personally seen and examined this patient.: Yes I have fully participated in the care of the patient.: Yes I have reviewed all pertinent clinical information, including history, physical exam and plan: Yes
[2017-09-09] MEDS: Enoxaparin 30 mg Syringe SC SCH (11:06)
[2017-09-09] MEDS: Oseltamivir 6 MG/ML PO SCH (11:06)
[2017-09-09] MEDS: Multivitamin Vitamin B Complex (Nephro-Vite) Tab PO SCH (11:06)
[2017-09-09] MEDS: Dextrose 5%/0.9% NS 1,000 ML IV SCH (11:10)
[2017-09-09] MEDS: Insulin Reg-MEDIUM-Coverage SC SCH ×4 (11:11→22:11)
[2017-09-09] MEDS: LamiVUDine 10 mg/ml Syringe PO SCH (11:28)
[2017-09-09] MEDS: Morphine 2 mg/ml ISec IVP PRN ×2 (12:25→21:47)
--- NOTE | 2017-09-09 15:03 | CP.PCM.PN ---
Subjective - Date & Time of Evaluation Date of Evaluation: 09/09/17 Time of Evaluation: 15:01 - Subjective Subjective: Follow up Nephrology Consultation: Assessment:critical Sepsis UTI Altered mental status hx of prostate CA Hypertensive Chronic Kidney Disease (I12.9) ESRD on HD via permacath (TTS) Anemia (D64.9), HTN (I12.9) HIV on HAART, PVD s/p angioplasty Influenza Plan HD TTS. nephrovite 1 tab/day aransep weekly for anemia 09/06/17. PRBC as needed not on VDRA since Ca on high side, work up Vit D (34) /PTH/SPEP/CLYDE all neg. F/ u PTH-rp as well continue with phos binders Hypertension control with meds as ordered. Patient on RAAS edyta as losartan dose meds for esrd per ID S:no acute events o/n Physical Examination: General Appearance: comfortable, in no acute respiratory distress, ill appearing Vitals reviewed and noted as below Head; Atraumatic, normocephalic ENT: no ulcers no thrush. Tongue is midline dry. Oropharynx: no rash or ulcers. EYES: Pupils are equal, round and reactive to light accommodation. Eye muscles and extraocular movement intact. Sclera is anicteric. Neck; supple no lymphadenopathy, no thyromegaly or bruit Lungs: Normal respiratory rate/effort. Breath sounds bilateral clear Heart: Normal rate. s1s2 normal. No rub or gallop. Extremities: no edema. No varicose veins. Neurological: Patient is more awake and communicative. Skin: Warm and dry. Normal turgor. No rash. Palpitation: Normal elasticity for age Abdomen: Abdomen is soft. Bowel sounds +. There is mild lower abdominal tenderness, no guarding/rigidity no organomegaly Psych: unable MSK: Rt foot in dressing. : kidney or bladder not palpable. Objective - Vital Signs/Intake and Output Vital Signs (last 24 hours): Temp Pulse Resp BP Pulse Ox 97.2 F L 72 24 148/63 96 09/09/17 07:30 09/09/17 07:30 09/09/17 07:30 09/09/17 07:30 09/09/17 07:30 Intake and Output: 09/09/17 09/09/17 06:59 18:59 Intake Total 533 480 Output Total 100 150 Balance 433 330 - Medications Medications: Current Medications Abacavir Sulfate (Ziagen) 600 mg PO DAILY [facility] Last Admin: 09/09/17 11:27 Dose: 600 mg Acetaminophen (Tylenol 325mg Tab) 650 mg PO Q4H PRN PRN Reason: Fever >100.4 F Last Admin: 09/09/17 01:12 Dose: 650 mg Acetaminophen (Tylenol 650 Mg Supp) 650 mg RC Q6H PRN PRN Reason: Fever >100.4 F Last Admin: 09/05/17 16:20 Dose: 650 mg Enoxaparin Sodium (Lovenox) 30 mg SC DAILY [facility] PRN Reason: Protocol Last Admin: 09/09/17 11:06 Dose: 30 mg Home Med (Home Med) 1 unit PO DAILY [facility] Last Admin: 09/09/17 11:11 Dose: Not Given Dextrose/Sodium Chloride (Dextrose 5%/0.9% Ns 1000 Ml) 1,000 mls @ 50 mls/hr IV .Q20H [facility] Last Admin: 09/09/17 11:10 Dose: 50 mls/hr Insulin Human Regular (Humulin R Med) 0 units SC ACHS [facility] PRN Reason: Protocol Last Admin: 09/09/17 11:32 Dose: Not Given Lamivudine (Epivir) 50 mg PO DAILY [facility] Last Admin: 09/09/17 11:28 Dose: 50 mg Losartan Potassium (Cozaar) 100 mg PO QPM [facility] Last Admin: 09/08/17 18:06 Dose: 100 mg Metoprolol Tartrate (Lopressor) 100 mg PO Q12 [facility] Last Admin: 09/09/17 11:07 Dose: 100 mg Morphine Sulfate (Morphine) 1 mg IVP Q3H PRN PRN Reason: Pain, moderate (4-7) Last Admin: 09/09/17 12:25 Dose: 1 mg Oseltamivir Phosphate (Tamiflu Susp) 30 mg PO DAILY [facility] PRN Reason: Protocol Last Admin: 09/09/17 11:06 Dose: 30 ml Sevelamer HCl (Renagel) 800 mg PO TID [facility] Last Admin: 09/09/17 14:27 Dose: Not Given Tamsulosin HCl (Flomax) 0.4 mg PO DAILY [facility] Last Admin: 09/09/17 11:06 Dose: 0.4 mg Vitamin B Complex/Vit C/Folic Acid (Nephro-Christel) 1 tab PO 0800 [facility] Last Admin: 09/09/17 11:06 Dose: 1 tab - Labs Labs: 09/09/17 09:50 09/09/17 09:50 PT 13.7 SECONDS (9.4-12.5) H 09/09/17 09:50 INR 1.19 (0.93-1.08) H 09/09/17 09:50 APTT 38.2 Seconds (25.1-36.5) H 08/30/17 19:07
[2017-09-09] MEDS ORDERED: Morphine 2 mg/ml ISec IVP STA (15:10)
--- NOTE | 2017-09-09 15:36 | PN ---
DATE: SUBJECTIVE: I saw him resting comfortably in bed. He has family with him at this time. They are also waiting for another family member to make the decision on the right above-knee amputation, which he needs. He is on Cozaar, dextrose, Epivir, Flomax, Lopressor, Lovenox, morphine, Nephro-Christel, Renagel, Tamiflu, Tylenol, and Ziagen. OBJECTIVE: GENERAL: He is more alert, more talkative, more appropriate. He is doing better that way. VITAL SIGNS: He has 97.2 temperature, 72 pulse, 148/63 blood pressure, 24 respiratory rate, and 96% O2 sat on 3 liters nasal cannula. HEENT: His head is atraumatic, normocephalic. HEART: Regular rate. LUNGS: Decreased breath sounds but clear. ABDOMEN: Soft. EXTREMITIES: Right leg is contracted with a bad foot. He needs to have an amputation. MEDICATIONS: He is on Cozaar, dextrose, Epivir, Flomax, Lopressor, Lovenox, morphine, Nephro-Christel, Renagel, Tamiflu, Tylenol, and Ziagen. LABORATORY DATA: He has 15 white count that one elevated, 10 hemoglobin S is all after the transfusion, 32.7 hematocrit, and 437 platelets. INR is 1.19. He has 144 sodium, potassium is 4.1, BUN 34, creatinine 4.8, he is on dialysis, GFR is 12, sugar is 96, calcium is 9.7, total bilirubin is 0.6, AST is 53, ALT is 32, alkaline phosphatase is 123, and total protein is 7.3. ASSESSMENT AND PLAN: He also had urinary tract infection. He had multiple things going on. He has got very bad right foot, he needs to have a right above-knee amputation for peripheral vascular disease. He has end-stage renal disease. He is septic, human immunodeficiency virus, prostate cancer, and urinary tract infection. Hopefully, tomorrow he will have the surgery. We will check his labs. Parag Brownlee DO
[2017-09-10] MEDS: Morphine 2 mg/ml ISec IVP PRN (04:36)
--- NOTE | 2017-09-10 04:53 | PN ---
DATE: 09/09/2017 SUBJECTIVE: The patient is in bed, in no acute distress, was seen earlier this morning in room 577, bed 1. He is weak, he has not had any fevers now for several days. PHYSICAL EXAMINATION VITAL SIGNS: Temperature is 97, blood pressure is 130/60 and respiratory rate of 18. HEENT: Unremarkable. NECK: Supple. LUNGS: Have decreased breath sounds. ABDOMEN: Soft and nontender. LABORATORY DATA: Reveals of white count of 15,000. BUN of 34 and creatinine of 4.8. Urinalysis is noted and influenza is positive. The patient's T-cell 9% and CD4 count of 267. Microbiology is noted. ASSESSMENT AND PLAN: This is a 72-year-old male with severe peripheral vascular disease, status post angioplasty of the left tibial artery, urinary tract infection, methicillin-resistant Staphylococcus aureus and Streptococcus viridans. The patient with coagulase negative Staphylococcus bacteremia from the 08/30/2017. Repeat blood cultures from 09/01/2017, no growth. The patient is status post amputation, left foot chronic osteomyelitis, vancomycin day #9 would complete 3 to 4 weeks. The patient also with influenza day #4 on Tamiflu, also on lamivudine, Abacavir and dolutegravir. Would complete 5 days of Tamiflu and we will order a vancomycin random level for morning. Cesar Flowers MD
[2017-09-10 08:05] LABS: BASO # 0.03 K/mm3 (0.0-2.0); BASO % 0.2 % (0.0-3.0); EOS # 0.2 (0.0-0.7); EOS % 1.9 % (1.5-5.0); GRAN # 8.15 (1.4-6.5); HEMOGLOBIN 8.4 g/dL (14.0-18.0); LYMPH # 3.3 (1.2-3.4); LYMPH % 25.2 % (22.0-35.0); MEAN CELL VOLUME 95.2 fl (80.0-105.0); MEAN CORPUSCULAR HGB CONC 30.4 g/dl (31.0-37.0); MEAN PLATELET VOLUME 10.7 fl (7.0-11.0); MONO # 1.3 (0.1-0.6); MONO % 9.7 % (1.0-6.0); RBC 2.9 10^6/uL (3.5-6.1); RED CELL DISTRIBUTION WIDTH 17.3 % (11.5-14.5); WHITE BLOOD COUNT 12.9 10^3/ul (4.5-11.0)
[2017-09-10] MEDS: Insulin Reg-MEDIUM-Coverage SC SCH ×2 (08:12→17:33)
[2017-09-10 08:24] LABS: ALB/GLOB RATIO 0.7 (1.1-1.8); ALBUMIN 2.6 g/dL (3.0-4.8); CALCIUM 9.2 mg/dL (8.4-10.5)
--- NOTE | 2017-09-10 08:42 | PN ---
DATE: 09/08/2017 SUBJECTIVE: I believe the plan is for Mr. Sagastume to have a right above knee amputation due to a non-healing ulcer and bad arterial disease. MEDICATIONS: He is on cortisone, Cozaar, dextrose, Epivir, Flomax, Lopressor, Lovenox, morphine, Nephro-Christel, Renagel, Tamiflu, Tylenol, and Ziagen. PHYSICAL EXAMINATION: GENERAL: He is alert, he is talking, he actually stronger today than the other day. VITAL SIGNS: He is a 98.8 temperature, 79 pulse, 158/76 blood pressure, 20 respiratory rate, and 96% O2 saturation on room air. HEENT: Head is atraumatic, normocephalic. HEART: Regular rate. LUNGS: Decreased breath sounds, but clear. ABDOMEN: Soft. EXTREMITIES: Right lower extremity is bad. He is very weak, thin, and frail, but he talks strongly than the other day. LABORATORY DATA: He has 8.6 white count, 7.6 hemoglobin, 25 hematocrit, with a 450 platelets. He has got to be transfused because of the lower hemoglobin. He has 142 sodium, BUN is 29, creatinine is 4.4, he is on dialysis. Potassium is 3.8, blood sugar was low at 37, I gave him amp of dextrose. Calcium is 8.9, phosphorus 3.1, magnesium 1.9, total bilirubin is 0.4, AST 56, ALT 36, and alk phos 97. Procalcitonin is 1.46. ASSESSMENT AND PLAN: He is being seen by Renal, Infectious Disease, Podiatry, Cardiology, and he is going to go for an amputation on Sunday of the right lower extremity. Parag Brownlee DO MTDD
[2017-09-10 08:43] LABS: URINE BILIRUBIN NEGATIVE (NEGATIVE); URINE BLOOD LARGE (NEGATIVE); URINE GLUCOSE (UA) NEGATIVE (NEGATIVE); URINE LEUKOCYTE ESTERASE LARGE Leu/uL (NEGATIVE); URINE NITRATE NEGATIVE (NEGATIVE); URINE PROTEIN 100 mg/dL (<30 mg/dL); URINE UROBILINOGEN 0.2 E.U./dL (<1 E.U./dL)
[2017-09-10 08:54] LABS: URINE APPEARANCE SL CLOUDY (CLEAR); URINE COLOR YELLOW (YELLOW)
[2017-09-10 08:57] LABS: URINE RBC TNTC /hpf (0-2); URINE WBC TNTC /hpf (0-6)
[2017-09-10 08:58] LABS: URINE BACTERIA MANY (NEG)
--- NOTE | 2017-09-10 09:33 | PN ---
DATE: SUBJECTIVE: He is supposed to go down today for a right above-knee amputation with surgery. He has a bad infection of the right foot and peripheral vascular disease. MEDICATIONS: He is on Cozaar, dextrose, Epivir, Flomax, Lopressor, Lovenox, morphine, Nephro-Christel, Renagel, Tamiflu, Tylenol, Ziagen. He is in and out of it mentally. He is having temperatures. PHYSICAL EXAMINATION: VITAL SIGNS: 100.3 temperature, 67 pulse, 143/83 blood pressure, 24 respiratory rate, 96% O2 sat on 3 liters nasal cannula. HEENT: Head is atraumatic, normocephalic. Throat is moist. NECK: Supple. HEART: Regular rate. LUNGS: Decreased breath sounds but clear. ABDOMEN: Soft. EXTREMITIES: Contracted. LABORATORY DATA: He has 15,000 white count yesterday, waiting for this morning's 10,000 hemoglobin, 437 platelets, 82 blood sugar. Sodium 144, potassium 4.1, BUN 34, creatinine 4.8, on dialysis. AST is 53, ALT 32, alk phos 123, total protein 7.3. ASSESSMENT AND PLAN: He is being seen by Infectious Disease, Surgery, Renal, Cardio, Podiatry. He has got multiple comorbidities. He has severe peripheral vascular disease, status post angioplasty of the left tibial artery, urinary tract infection, methicillin-resistant Staphylococcus aureus. He is status post amputation of left foot chronic osteomyelitis. He is on Tamiflu and hopefully he will go for AKA today to get rid of the infection source as per Infectious Disease. Continue aggressive treatment and care. Parag Brownlee DO MTDAnna
[2017-09-10] MEDS ORDERED: Bupivacaine 0.5% Inj(30mL) ONE (11:14)
[2017-09-10] MEDS ORDERED: Propofol 10 mg/ml Inj (20 ML) ONE (11:39)
[2017-09-10] MEDS ORDERED: Midazolam 2 MG/2 ML VIAL ONE (11:40)
[2017-09-10] MEDS ORDERED: Rocuronium 10 mg/ml (5 ml) ONE (11:53)
[2017-09-10] MEDS ORDERED: Phenylephrine 10 mg/ml Inj ONE (12:05)
[2017-09-10] MEDS ORDERED: HYDROmorphone 0.5 mg/0.5 ml ISec IVP PRN (13:08)
[2017-09-10] MEDS ORDERED: Bupivacaine 0.25% Inj(30mL) ONE (13:10)
[2017-09-10] MEDS ORDERED: Oxychlorosene Topical 2 gm Packet TOP ONE (13:17)
[2017-09-10] MEDS ORDERED: Neostigmine Methylsulfate 3mg/3ml Syringe IV ONE (13:45)
[2017-09-10] MEDS ORDERED: Glycopyrrolate 0.2 mg/ml (2ml vial) ONE ×2 (13:46→13:48)
--- NOTE | 2017-09-10 14:24 | PCM.SURG1 ---
Surgeon's Initial Post Op Note - Surgeon's Notes Surgeon: Dr. Martinez Resident Inspector: Dr. Borja PGY3 , Dr. Leach PGY3, Arleen CHEEMA Type of Anesthesia: General Endo Anesthesia Administered By: Dr. Washington Pre-Operative Diagnosis: peripheral arterial disease , chronic contracture R. leg Operative Findings: See operative report Post-Operative Diagnosis: same Operation Performed: right above the knee amputation Specimen/Specimens Removed: right leg Estimated Blood Loss: EBL {In ML}: 50 Blood Products Given: N/A Drains Used: Steve Post-Op Condition: Fair Date of Surgery/Procedure: 09/10/17 Time of Surgery/Procedure: 14:25
[2017-09-10] MEDS ORDERED: HYDROmorphone 0.5 mg/0.5 ml ISec ONE (15:12)
[2017-09-10] MEDS ORDERED: Vancomycin 1gm in NS 250ml 1 GM/250 ML BAG IVPB STA (16:55)
[2017-09-10] MEDS: HYDROmorphone 0.5 mg/0.5 ml ISec IVP PRN (18:23)
[2017-09-10] MEDS: Multivitamin Vitamin B Complex (Nephro-Vite) Tab PO SCH (18:37)
[2017-09-10] MEDS ORDERED: Dextrose 50% SYRINGE Inj (50 ml) IVP ONE (22:25)
[2017-09-11] MEDS: Insulin Reg-MEDIUM-Coverage SC SCH ×5 (00:19→22:00)
[2017-09-11] MEDS: HYDROmorphone 0.5 mg/0.5 ml ISec IVP PRN ×3 (04:16→14:46)
[2017-09-11] MEDS: Multivitamin Vitamin B Complex (Nephro-Vite) Tab PO SCH (08:53)
[2017-09-11 11:00] LABS: MEAN CELL VOLUME 95.8 fl (80.0-105.0); MEAN CORPUSCULAR HEMOGLOBIN 29.4 pg (25.0-35.0); MEAN CORPUSCULAR HGB CONC 30.7 g/dl (31.0-37.0); MEAN PLATELET VOLUME 11.1 fl (7.0-11.0); RBC 2.65 10^6/uL (3.5-6.1); RED CELL DISTRIBUTION WIDTH 17.1 % (11.5-14.5); WHITE BLOOD COUNT 16.1 10^3/ul (4.5-11.0)
[2017-09-11 11:10] LABS: ALB/GLOB RATIO 0.7 (1.1-1.8); ALBUMIN 2.4 g/dL (3.0-4.8); CALCIUM 8.6 mg/dL (8.4-10.5)
[2017-09-11 11:19] LABS: HEMOGLOBIN 7.8 g/dL (14.0-18.0)
--- NOTE | 2017-09-11 12:28 | CP.PCM.PN ---
Subjective - Date & Time of Evaluation Date of Evaluation: 09/11/17 Time of Evaluation: 11:00 - Subjective Subjective: Follow up Nephrology Consultation: Assessment:critical Altered mental status, sepsis with UTI hx of prostate CA Hypertensive Chronic Kidney Disease (I12.9) ESRD on HD via permacath (TTS) Anemia (D64.9), HTN (I12.9) HIV on HAART, PVD s/p angioplasty s/p Rt AKA Influenza Plan plan for HD today as per TTS. nephrovite 1 tab/day aransep weekly for anemia 09/06/17. PRBC as needed not on VDRA since Ca on high side, work up Vit D (34) /PTH/SPEP/CLYDE/PTH-rp all neg. ? due to mostly bedbound status continue with binders for phos Hypertension control with meds as ordered. Patient on RAAS edyta as losartan ID following started flomax. continue with D5NS as with low glucose. d/c IVF once oral intake good. Dose meds/antibiotics for ESRD status. Avoid fleets enema/magnesium based laxatives. Avoid nephrotoxins/NSAIDs/ iodinated contrast (unless needed emergently) Further work up/management as per primary team Thanks for allowing me to participate in care of your patient. Will follow patient with you. Please call if any Qs. d/w team Dr Yandel Arechiga Office: [phone] reason for consult: ESRD, HTN HPI: Pt is a 72 y/o M with hx of HIV on HAART, PVD s/p angioplasty, hypertension (10-15 years), ESRD on HD (via permacath) TTS @ [facility], left foot toe amputations, prostate CA initially admitted with AMS, fever and sepsis renal consult for ESRD, HTN management pt unable to provide hx due to AMS ROS: remains confused Physical Examination: seen on HD General Appearance: uncomfortable, in no acute respiratory distress, ill appearing Vitals reviewed and noted as below Head; Atraumatic, normocephalic ENT: no ulcers no thrush. Tongue is midline dry. Oropharynx: no rash or ulcers. EYES: Pupils are equal, round and reactive to light accommodation. Eye muscles and extraocular movement intact. Sclera is anicteric. Neck; supple no lymphadenopathy, no thyromegaly or bruit Lungs: Normal respiratory rate/effort. Breath sounds bilateral clear Heart: Normal rate. s1s2 normal. No rub or gallop. Extremities: no edema. No varicose veins. s/p Rt AKA Neurological: Patient is mostly non communicative. Skin: Warm and dry. Normal turgor. No rash. Palpitation: Normal elasticity for age Abdomen: Abdomen is soft. Bowel sounds +. There is mild lower abdominal tenderness, no guarding/rigidity no organomegaly Psych: unable MSK: Digits and nails normal, left foot toe amputations in past. Rt foot in dressing. : kidney or bladder not palpable. Access: permacath and maturing left AVF Labs/imaging/EKG reviewed. Past medical history, past surgical history, family history, social history, allergy reviewed and noted as below Family hx: sister was on dialysis. Rest non-contributory Objective - Vital Signs/Intake and Output Vital Signs (last 24 hours): Temp Pulse Resp BP Pulse Ox 102.1 F H 92 H 20 118/65 92 L 09/11/17 07:00 09/11/17 07:00 09/11/17 07:00 09/11/17 07:00 09/11/17 07:00 Intake and Output: 09/11/17 09/11/17 06:59 18:59 Intake Total 0 Output Total 125 Balance -125 - Medications Medications: Current Medications Abacavir Sulfate (Ziagen) 600 mg PO DAILY [facility] Last Admin: 09/10/17 18:37 Dose: 600 mg Acetaminophen (Tylenol 325mg Tab) 650 mg PO Q4H PRN PRN Reason: Fever >100.4 F Last Admin: 09/09/17 01:12 Dose: 650 mg Acetaminophen (Tylenol 650 Mg Supp) 650 mg RC Q6H PRN PRN Reason: Fever >100.4 F Last Admin: 09/11/17 06:28 Dose: 650 mg Enoxaparin Sodium (Lovenox) 30 mg SC DAILY [facility] PRN Reason: Protocol Last Admin: 09/09/17 11:06 Dose: 30 mg Home Med (Home Med) 1 unit PO DAILY [facility] Last Admin: 09/09/17 11:11 Dose: Not Given Hydromorphone HCl (Dilaudid) 0.5 mg IVP Q4H PRN PRN Reason: Pain, moderate (4-7) Last Admin: 09/11/17 09:16 Dose: 0.5 mg Dextrose/Sodium Chloride (Dextrose 5%/0.9% Ns 1000 Ml) 1,000 mls @ 50 mls/hr IV .Q20H [facility] Last Admin: 09/09/17 11:10 Dose: 50 mls/hr Insulin Human Regular (Humulin R Med) 0 units SC ACHS [facility] PRN Reason: Protocol Last Admin: 09/11/17 08:52 Dose: Not Given Lamivudine (Epivir) 50 mg PO DAILY [facility] Last Admin: 09/09/17 11:28 Dose: 50 mg Losartan Potassium (Cozaar) 100 mg PO QPM [facility] Last Admin: 09/10/17 18:36 Dose: 100 mg Metoprolol Tartrate (Lopressor) 100 mg PO Q12 [facility] Last Admin: 09/11/17 00:19 Dose: Not Given Oseltamivir Phosphate (Tamiflu Susp) 30 mg PO DAILY [facility] PRN Reason: Protocol Last Admin: 09/09/17 11:06 Dose: 30 ml Sevelamer HCl (Renagel) 800 mg PO TID [facility] Last Admin: 09/10/17 18:37 Dose: 800 mg Tamsulosin HCl (Flomax) 0.4 mg PO DAILY [facility] Last Admin: 09/10/17 18:36 Dose: 0.4 mg Vitamin B Complex/Vit C/Folic Acid (Nephro-Christel) 1 tab PO 0800 [facility] Last Admin: 09/11/17 08:53 Dose: 1 tab - Labs Labs: 09/11/17 10:53 09/11/17 10:53 PT 13.7 SECONDS (9.4-12.5) H 09/09/17 09:50 INR 1.19 (0.93-1.08) H 09/09/17 09:50 APTT 38.2 Seconds (25.1-36.5) H 08/30/17 19:07
--- NOTE | 2017-09-11 12:38 | PN ---
DATE: SUBJECTIVE: I saw him resting comfortably in bed. He is alert and talking. He is in a little bit of pain of the right AKA that was done yesterday. He is on Cozaar, dextrose, Dilaudid, Epivir, Flomax, insulin, Lopressor, Lovenox, Nephro-Christel, Renagel, Tamiflu, Tylenol, and Ziagen. PHYSICAL EXAMINATION: VITAL SIGNS: His vital signs are 102.1 temperature, it was as high as 103.1. He has 85 pulse, 119/68 blood pressure, 20 respiratory rate, 93% O2 sat on 3 liters nasal cannula. HEENT: Head is atraumatic, normocephalic. HEART: Regular rate. LUNGS: Decreased breath sounds but clear. ABDOMEN: Soft. EXTREMITIES: New right AKA, poor left foot. LABORATORY DATA: He has a 12.9 white count, is getting better, 8.4 hemoglobin and if it drops below 8, will transfuse, 27.6 hematocrit, and 409 platelets, blood during surgery. He has a 141 sodium, potassium 4.5, BUN 47, creatinine 5.9 on dialysis. Last sugar 97, calcium is 9.2, total bili is 0.5, AST is 56, ALT 33, alk phos 110. ASSESSMENT AND PLAN: He is being seen by numerous physicians, Surgery, Infectious Disease, Neurology, Renal. He is status post day 1 of surgery. We will check his labs tomorrow. We will see if he does need antibiotics. I will discuss that with ID. Check his labs tomorrow when his fever breaks and he is capable of trying get him back to subacute rehab at [facility] where he came from. Parag Brownlee DO
--- NOTE | 2017-09-11 13:32 | CP.PCM.PN ---
Subjective - Date & Time of Evaluation Date of Evaluation: 09/11/17 Time of Evaluation: 07:00 - Subjective Subjective: Surgery: Dr. Martinez Pt seen and examined. No acute overnight events. Pt is s/p R AKA, POD#1. Continues to be minimally responsive to commands. Febrile to 103 overnight. Objective - Vital Signs/Intake and Output Vital Signs (last 24 hours): Temp Pulse Resp BP Pulse Ox 98.0 F 108 H 16 188/88 H 92 L 09/11/17 13:23 09/11/17 13:23 09/11/17 13:23 09/11/17 13:23 09/11/17 07:00 Intake and Output: 09/11/17 09/11/17 06:59 18:59 Intake Total 0 0 Output Total 125 Balance -125 0 - Medications Medications: Current Medications Abacavir Sulfate (Ziagen) 600 mg PO DAILY [facility] Last Admin: 09/10/17 18:37 Dose: 600 mg Acetaminophen (Tylenol 325mg Tab) 650 mg PO Q4H PRN PRN Reason: Fever >100.4 F Last Admin: 09/09/17 01:12 Dose: 650 mg Acetaminophen (Tylenol 650 Mg Supp) 650 mg RC Q6H PRN PRN Reason: Fever >100.4 F Last Admin: 09/11/17 06:28 Dose: 650 mg Darbepoetin Mario (Aranesp) 100 mcg IVP ONCE ONE Stop: 09/13/17 10:01 Enoxaparin Sodium (Lovenox) 30 mg SC DAILY [facility] PRN Reason: Protocol Last Admin: 09/09/17 11:06 Dose: 30 mg Home Med (Home Med) 1 unit PO DAILY [facility] Last Admin: 09/09/17 11:11 Dose: Not Given Hydromorphone HCl (Dilaudid) 0.5 mg IVP Q4H PRN PRN Reason: Pain, moderate (4-7) Last Admin: 09/11/17 09:16 Dose: 0.5 mg Dextrose/Sodium Chloride (Dextrose 5%/0.9% Ns 1000 Ml) 1,000 mls @ 50 mls/hr IV .Q20H [facility] Last Admin: 09/09/17 11:10 Dose: 50 mls/hr Insulin Human Regular (Humulin R Med) 0 units SC ACHS [facility] PRN Reason: Protocol Last Admin: 09/11/17 08:52 Dose: Not Given Lamivudine (Epivir) 50 mg PO DAILY [facility] Last Admin: 09/09/17 11:28 Dose: 50 mg Losartan Potassium (Cozaar) 100 mg PO QPM [facility] Last Admin: 09/10/17 18:36 Dose: 100 mg Metoprolol Tartrate (Lopressor) 100 mg PO Q12 [facility] Last Admin: 09/11/17 00:19 Dose: Not Given Oseltamivir Phosphate (Tamiflu Susp) 30 mg PO DAILY [facility] PRN Reason: Protocol Last Admin: 09/09/17 11:06 Dose: 30 ml Sevelamer HCl (Renagel) 800 mg PO TID [facility] Last Admin: 09/10/17 18:37 Dose: 800 mg Tamsulosin HCl (Flomax) 0.4 mg PO DAILY [facility] Last Admin: 09/10/17 18:36 Dose: 0.4 mg Vitamin B Complex/Vit C/Folic Acid (Nephro-Christel) 1 tab PO 0800 [facility] Last Admin: 09/11/17 08:53 Dose: 1 tab - Labs Labs: 09/11/17 10:53 09/11/17 10:53 PT 13.7 SECONDS (9.4-12.5) H 09/09/17 09:50 INR 1.19 (0.93-1.08) H 09/09/17 09:50 APTT 38.2 Seconds (25.1-36.5) H 08/30/17 19:07 - Constitutional Appears: Well, No Acute Distress - Head Exam Head Exam: ATRAUMATIC, NORMOCEPHALIC - ENT Exam ENT Exam: Mucous Membranes Moist - Respiratory Exam Respiratory Exam: NORMAL BREATHING PATTERN - Cardiovascular Exam Cardiovascular Exam: Tachycardia - GI/Abdominal Exam GI & Abdominal Exam: Soft. absent: Tenderness - Extremities Exam Additional comments: R leg AKA stump with dressing in place, C/D/I. Steve in place with minimal output, On-Q catheters in place - Neurological Exam Neurological Exam: Alert, Awake - Skin Skin Exam: Dry, Warm Assessment and Plan - Assessment and Plan (Free Text) Assessment: 72M s/p R AKA; POD#1 Plan: - monitor dressing & steve output - pain control - cont ABX per ID recs - d/w Dr. Juan Borja, PGY-3 Surgery
--- NOTE | 2017-09-11 15:40 | CP.PCM.PN ---
<JuanJanice - Last Filed: 09/11/17 15:41> Subjective - Date & Time of Evaluation Date of Evaluation: 09/11/17 Time of Evaluation: 15:39 - Subjective Subjective: 72 y/o male seen at bedside with attending Dr. Dunn for left foot 3rd digit. Pt is in significant pain at time of visit s/p right AKA. He has no pedal complaints regarding left foot. No dressing is on foot at time of visit. Pt admits to fever; denies C/N/V/CP/SOB Objective - Vital Signs/Intake and Output Vital Signs (last 24 hours): Temp Pulse Resp BP Pulse Ox 101.2 F H 18 L 107 H 138/76 92 L 09/11/17 14:46 09/11/17 13:58 09/11/17 13:58 09/11/17 13:58 09/11/17 07:00 Intake and Output: 09/11/17 09/11/17 06:59 18:59 Intake Total 0 805 Output Total 125 500 Balance -125 305 - Medications Medications: Current Medications Abacavir Sulfate (Ziagen) 600 mg PO DAILY [facility] Last Admin: 09/10/17 18:37 Dose: 600 mg Acetaminophen (Tylenol 325mg Tab) 650 mg PO Q4H PRN PRN Reason: Fever >100.4 F Last Admin: 09/09/17 01:12 Dose: 650 mg Acetaminophen (Tylenol 650 Mg Supp) 650 mg RC Q6H PRN PRN Reason: Fever >100.4 F Last Admin: 09/11/17 14:46 Dose: 650 mg Darbepoetin Mario (Aranesp) 100 mcg IVP ONCE ONE Stop: 09/13/17 10:01 Enoxaparin Sodium (Lovenox) 30 mg SC DAILY [facility] PRN Reason: Protocol Last Admin: 09/09/17 11:06 Dose: 30 mg Home Med (Home Med) 1 unit PO DAILY [facility] Hydromorphone HCl (Dilaudid) 0.5 mg IVP Q4H PRN PRN Reason: Pain, moderate (4-7) Last Admin: 09/11/17 14:46 Dose: 0.5 mg Dextrose/Sodium Chloride (Dextrose 5%/0.9% Ns 1000 Ml) 1,000 mls @ 50 mls/hr IV .Q20H [facility] Last Admin: 09/09/17 11:10 Dose: 50 mls/hr Insulin Human Regular (Humulin R Med) 0 units SC ACHS [facility] PRN Reason: Protocol Last Admin: 09/11/17 08:52 Dose: Not Given Lamivudine (Epivir) 50 mg PO DAILY [facility] Last Admin: 09/09/17 11:28 Dose: 50 mg Losartan Potassium (Cozaar) 100 mg PO QPM [facility] Last Admin: 09/10/17 18:36 Dose: 100 mg Metoprolol Tartrate (Lopressor) 100 mg PO Q12 [facility] Last Admin: 09/11/17 00:19 Dose: Not Given Oseltamivir Phosphate (Tamiflu Susp) 30 mg PO DAILY [facility] PRN Reason: Protocol Last Admin: 09/09/17 11:06 Dose: 30 ml Sevelamer HCl (Renagel) 800 mg PO TID [facility] Last Admin: 09/10/17 18:37 Dose: 800 mg Tamsulosin HCl (Flomax) 0.4 mg PO DAILY [facility] Last Admin: 09/10/17 18:36 Dose: 0.4 mg Vitamin B Complex/Vit C/Folic Acid (Nephro-Christel) 1 tab PO 0800 [facility] Last Admin: 09/11/17 08:53 Dose: 1 tab - Labs Labs: 09/11/17 10:53 09/11/17 10:53 PT 13.7 SECONDS (9.4-12.5) H 09/09/17 09:50 INR 1.19 (0.93-1.08) H 09/09/17 09:50 APTT 38.2 Seconds (25.1-36.5) H 08/30/17 19:07 - Constitutional Appears: Well, Non-toxic, No Acute Distress - Extremities Exam Additional comments: left foot 3rd digit clean, dry, no evidence of open lesions, no concern for infection right AKA - Neurological Exam Neurological Exam: Alert, Awake - Psychiatric Exam Psychiatric exam: Normal Affect, Normal Mood Assessment and Plan - Assessment and Plan (Free Text) Assessment: 72 y/o male with right AKA and left 3rd digit partial amputation site, fully healed Plan: Pt seen and evaluated with attending Dr. Dunn Left foot examined thoroughly for any open lesions or podiatric concerns Continue pain meds per primary team Podiatry to sign off at this time Please re consult again as needed <Jerrod Dunn Last Filed: 09/14/17 10:19> Objective - Vital Signs/Intake and Output Vital Signs (last 24 hours): Temp Pulse Resp BP Pulse Ox 98.5 F 91 H 18 145/79 99 09/14/17 07:30 09/14/17 07:30 09/14/17 07:30 09/14/17 07:30 09/14/17 07:30 Intake and Output: 09/14/17 09/14/17 06:59 18:59 Intake Total 360 Output Total 70 Balance 290 - Medications Medications: Current Medications Abacavir Sulfate (Ziagen) 600 mg PO DAILY [facility] Last Admin: 09/13/17 15:40 Dose: 600 mg Acetaminophen (Tylenol 325mg Tab) 650 mg PO Q4H PRN PRN Reason: Fever >100.4 F Last Admin: 09/13/17 01:15 Dose: 650 mg Acetaminophen (Tylenol 650 Mg Supp) 650 mg RC Q6H PRN PRN Reason: Fever >100.4 F Last Admin: 09/11/17 14:46 Dose: 650 mg Enoxaparin Sodium (Lovenox) 30 mg SC DAILY [facility] PRN Reason: Protocol Last Admin: 09/09/17 11:06 Dose: 30 mg Home Med (Home Med) 1 unit PO DAILY [facility] Last Admin: 09/13/17 15:41 Dose: Not Given Hydromorphone HCl (Dilaudid) 0.5 mg IVP Q4H PRN PRN Reason: Pain, moderate (4-7) Last Admin: 09/11/17 14:46 Dose: 0.5 mg Dextrose/Sodium Chloride (Dextrose 5%/0.9% Ns 1000 Ml) 1,000 mls @ 50 mls/hr IV .Q20H [facility] Last Admin: 09/12/17 11:33 Dose: 50 mls/hr Insulin Human Regular (Humulin R Med) 0 units SC ACHS [facility] PRN Reason: Protocol Last Admin: 09/13/17 22:00 Dose: Not Given Lamivudine (Epivir) 50 mg PO DAILY [facility] Last Admin: 09/13/17 15:40 Dose: 50 mg Losartan Potassium (Cozaar) 100 mg PO QPM [facility] Last Admin: 09/13/17 17:55 Dose: Not Given Metoprolol Tartrate (Lopressor) 100 mg PO Q12 [facility] Last Admin: 09/13/17 21:29 Dose: Not Given Oseltamivir Phosphate (Tamiflu Susp) 30 mg PO DAILY [facility] PRN Reason: Protocol Last Admin: 09/13/17 15:39 Dose: 30 ml Sevelamer HCl (Renagel) 800 mg PO TID [facility] Last Admin: 09/13/17 17:55 Dose: Not Given Tamsulosin HCl (Flomax) 0.4 mg PO DAILY [facility] Last Admin: 09/13/17 15:40 Dose: 0.4 mg Vitamin B Complex/Vit C/Folic Acid (Nephro-Christel) 1 tab PO 0800 [facility] Last Admin: 09/13/17 09:00 Dose: Not Given - Labs Labs: 09/14/17 08:30 09/14/17 08:30 PT 13.7 SECONDS (9.4-12.5) H 09/09/17 09:50 INR 1.19 (0.93-1.08) H 09/09/17 09:50 APTT 38.2 Seconds (25.1-36.5) H 08/30/17 19:07 Attending/Attestation - Attestation I have personally seen and examined this patient.: Yes I have fully participated in the care of the patient.: Yes I have reviewed all pertinent clinical information, including history, physical exam and plan: Yes
[2017-09-11] MEDS: LamiVUDine 10 mg/ml Syringe PO SCH ×2 (18:04→18:42)
[2017-09-11] MEDS: Oseltamivir 6 MG/ML PO SCH (18:05)
[2017-09-11] MEDS ORDERED: Vancomycin 500mg in NS 500 MG/100 ML BAG IVPB STA (22:20)
--- NOTE | 2017-09-12 02:27 | PN ---
DATE: 09/11/2017 SUBJECTIVE: The patient is in bed, in no acute distress. The patient was seen earlier this morning. PHYSICAL EXAMINATION: VITAL SIGNS: Temperature 98, T-max was 101.2, blood pressure is 130/60. HEENT: Unremarkable. NECK: Supple. LUNGS: Have decreased breath sounds. HEART: Normal S1 and S2. ABDOMEN: Soft. LABORATORY DATA: Reveals the patient's white count of 16,100, hemoglobin of 7. Chemistry reveals a BUN of 57 and creatinine of 6.6. Procalcitonin is 0.7. Urinalysis is noted and random vanco level of 10. T scores are noted. Serology is reviewed. ASSESSMENT AND PLAN: This is a 72-year-old male with severe peripheral vascular disease, status post angioplasty of the left tibial artery, urinary tract infection, methicillin-resistant Staphylococcus aureus and Streptococcus viridans in the past with a coagulase-negative Staphylococcus bacteremia, status post amputation and left foot chronic osteomyelitis, vancomycin day #10, making vancomycin intermittent ____ each dialysis and would complete 4 weeks, today is day #10 of 4 weeks, and complete with 5 days of Tamiflu today is date of #5 and continue the patient with repeat . The patient did have a temperature this morning. We will repeat the mejia cultures, blood, urine, and sputum. We reviewed the cultures from 09/10, were no growth. We will repeat a chest x-ray. We will follow with you. Cesar Flowers MD
[2017-09-12 07:58] LABS: HEMOGLOBIN 9.6 g/dL (14.0-18.0); MEAN CORPUSCULAR HEMOGLOBIN 28.7 pg (25.0-35.0); MEAN PLATELET VOLUME 10.9 fl (7.0-11.0); RBC 3.34 10^6/uL (3.5-6.1); RED CELL DISTRIBUTION WIDTH 16.9 % (11.5-14.5); WHITE BLOOD COUNT 18.6 10^3/ul (4.5-11.0)
[2017-09-12 08:03] LABS: MEAN CELL VOLUME 92.8 fl (80.0-105.0)
[2017-09-12 08:24] LABS: ALB/GLOB RATIO 0.7 (1.1-1.8); ALBUMIN 2.6 g/dL (3.0-4.8); CALCIUM 8.5 mg/dL (8.4-10.5)
[2017-09-12] MEDS: Insulin Reg-MEDIUM-Coverage SC SCH ×3 (08:59→16:19)
--- NOTE | 2017-09-12 09:10 | PN ---
DATE: SUBJECTIVE: I saw Raza resting comfortably in bed this morning. He slept some, less pain. He is talking more alertly. Little bit hungry. MEDICATIONS: He is on Aricept, Cozaar, dextrose, Dilaudid, Epivir, Flomax, insulin, Lopressor, Lovenox, Nephro-Christel, Renagel, Tamiflu, Tylenol, and Ziagen. PHYSICAL EXAMINATION: VITAL SIGNS: 98.8 temperature, 90 pulse, 122/77 blood pressure, 22 respiratory rate, 97% O2 sat on room air. His temperature did go as high as 101.2 and 102.1, still having temperatures. GENERAL: He is alert. HEENT: Head is atraumatic, normocephalic. Mouth is dry. HEART: Regular rate. LUNGS: Decreased breath sounds. ABDOMEN: Soft. EXTREMITIES: Legs, has an AKA done 2 days ago. LABORATORY DATA: He has a 16.1 white count, 7.8 hemoglobin, 25.4 hematocrit and 468 platelets, that was done yesterday. I believe he was transfused in Renal for dialysis. He has 142 sodium, potassium is 4.8, BUN is 67, creatinine 6.6, sugars 106, calcium is 8.6, AST is 78, ALT is 24, alk phos 116. Waiting for labs to populate this morning on him. ASSESSMENT AND PLAN: We will see if we have to put him back on IV antibiotics. The elevated white count could have been stressed from the right above knee amputation (AKA). I will discuss that with Infectious Disease. Will check his labs tomorrow. He is being seen by numerous doctors, Renal, Infectious Disease, Podiatry, Neurology, Vascular Surgery, Cardiology. He has got multiple risk factors. He has got multiple problems. We hope to get him back to [facility] one of these days, continue his rehab. Once we get him through this and we will follow the white count and see if he does need antibiotics or not. Parag Brownlee DO [facility]
--- NOTE | 2017-09-12 10:21 | OP ---
PROCEDURE DATE: 09/10/2017 The patient is a 72-year-old who has contracture of the right leg and extensive necrosis of the heel, ankle, and foot. OPERATION PERFORMED: Right above-knee amputation SURGEON: Bradley Martinez MD FIGURE MODEL: and Dr. Samuels. DESCRIPTION OF PROCEDURE: In the operating room, the patient was identified by name, name of procedure, laterality, my yohan, the consent, his date, and number. The right leg was prepped and draped in usual manner with tourniquet. It was eventually set at 300. The leg having been exsanguinated with an Esmarch bandage and Coban. The pre-marked area was identified after the successful time-out. Skin flaps were raised superiorly and inferiorly in a generous manner. This was done sharply, and this was taken down to the bone circumferentially with a cautery. Medially, the artery, vein, and nerve were separately identified, and the nerve taking down high, the artery being doubly ligated with 0 Vicryl. The bone was amputated and modeled with the saw to good effect. The area was copiously irrigated and dried. An On-Q was placed followed by Steve. The area was closed with interrupted 0 Vicryl followed by subcutaneous Vicryl followed by ashely. A light pressure dressing was applied. The patient was taken to recovery room in good condition after sponge and needle count was declared correct. Bradley Martinez MD
[2017-09-12] MEDS: Multivitamin Vitamin B Complex (Nephro-Vite) Tab PO SCH (11:26)
--- NOTE | 2017-09-12 11:30 | RAD ---
PROCEDURE: CHEST RADIOGRAPH, 1 VIEW HISTORY: fever COMPARISON: Comparison chest dated 09/05/2017 FINDINGS: No change right IJ dual-lumen dialysis catheter with tips in the SVC/RA or RA junction LUNGS: Mild bibasilar atelectasis and or infiltrates left greater than right. Central pulmonary vasculature is also slightly increased suggesting mild pulmonary edema; rule out fluid overload and/or CHF. Questionable small bilateral effusions. PLEURA: As above. No apparent pneumothorax CARDIOVASCULAR: Heart appears enlarged. Aorta is ectatic and uncoiled. OSSEOUS STRUCTURES: No significant abnormalities. VISUALIZED UPPER ABDOMEN: Normal. OTHER FINDINGS: None. IMPRESSION: Mild bibasilar atelectasis and or infiltrates left greater than right. Central pulmonary vasculature is also slightly increased suggesting mild pulmonary edema; rule out fluid overload and/or CHF. Questionable small bilateral effusions
[2017-09-12] MEDS: LamiVUDine 10 mg/ml Syringe PO SCH (11:32)
[2017-09-12] MEDS: Oseltamivir 6 MG/ML PO SCH (11:32)
[2017-09-12] MEDS: Dextrose 5%/0.9% NS 1,000 ML IV SCH (11:33)
--- NOTE | 2017-09-12 15:02 | CP.PCM.PN ---
Subjective - Date & Time of Evaluation Date of Evaluation: 09/12/17 Time of Evaluation: 10:00 - Subjective Subjective: Follow up Nephrology Consultation: Assessment:critical Altered mental status, sepsis with UTI hx of prostate CA Hypertensive Chronic Kidney Disease (I12.9) ESRD on HD via permacath (TTS) Anemia (D64.9), HTN (I12.9) HIV on HAART, PVD s/p angioplasty s/p Rt AKA Influenza Plan plan for HD tomorrow as per TTS. nephrovite 1 tab/day aransep weekly for anemia 09/06/17. PRBC as needed not on VDRA since Ca on high side, work up Vit D (34) /PTH/SPEP/CLYDE/PTH-rp all neg. continue with binders for phos Hypertension control with meds as ordered. Patient on RAAS edyta as losartan ID following started flomax. continue with D5NS as with low glucose. d/c IVF once oral intake good. Dose meds/antibiotics for ESRD status. Avoid fleets enema/magnesium based laxatives. Avoid nephrotoxins/NSAIDs/ iodinated contrast (unless needed emergently) Further work up/management as per primary team Thanks for allowing me to participate in care of your patient. Will follow patient with you. Please call if any Qs. d/w team Dr Yandel Arechiga Office: [phone] reason for consult: ESRD, HTN HPI: Pt is a 72 y/o M with hx of HIV on HAART, PVD s/p angioplasty, hypertension (10-15 years), ESRD on HD (via permacath) TTS @ [facility], left foot toe amputations, prostate CA initially admitted with AMS, fever and sepsis renal consult for ESRD, HTN management pt unable to provide hx due to AMS ROS: remains confused Physical Examination: General Appearance: uncomfortable, in no acute respiratory distress, ill appearing Vitals reviewed and noted as below Head; Atraumatic, normocephalic ENT: no ulcers no thrush. Tongue is midline dry. Oropharynx: no rash or ulcers. EYES: Pupils are equal, round and reactive to light accommodation. Eye muscles and extraocular movement intact. Sclera is anicteric. Neck; supple no lymphadenopathy, no thyromegaly or bruit Lungs: Normal respiratory rate/effort. Breath sounds bilateral clear Heart: Normal rate. s1s2 normal. No rub or gallop. Extremities: no edema. No varicose veins. s/p Rt AKA Neurological: Patient is mostly non communicative. Skin: Warm and dry. Normal turgor. No rash. Palpitation: Normal elasticity for age Abdomen: Abdomen is soft. Bowel sounds +. There is mild lower abdominal tenderness, no guarding/rigidity no organomegaly Psych: unable MSK: Digits and nails normal, left foot toe amputations in past. Rt foot in dressing. : kidney or bladder not palpable. Access: permacath and maturing left AVF Labs/imaging/EKG reviewed. Past medical history, past surgical history, family history, social history, allergy reviewed and noted as below Family hx: sister was on dialysis. Rest non-contributory Objective - Vital Signs/Intake and Output Vital Signs (last 24 hours): Temp Pulse Resp BP Pulse Ox 98.1 F 88 19 131/75 90 L 09/12/17 08:52 09/12/17 11:26 09/12/17 08:52 09/12/17 11:26 09/12/17 08:52 Intake and Output: 09/12/17 09/12/17 06:59 18:59 Intake Total 360 0 Output Total 60 Balance 360 -60 - Medications Medications: Current Medications Abacavir Sulfate (Ziagen) 600 mg PO DAILY [facility] Last Admin: 09/12/17 14:58 Dose: Not Given Acetaminophen (Tylenol 325mg Tab) 650 mg PO Q4H PRN PRN Reason: Fever >100.4 F Last Admin: 09/09/17 01:12 Dose: 650 mg Acetaminophen (Tylenol 650 Mg Supp) 650 mg RC Q6H PRN PRN Reason: Fever >100.4 F Last Admin: 09/11/17 14:46 Dose: 650 mg Darbepoetin Mario (Aranesp) 100 mcg IVP ONCE ONE Stop: 09/13/17 10:01 Enoxaparin Sodium (Lovenox) 30 mg SC DAILY [facility] PRN Reason: Protocol Last Admin: 09/09/17 11:06 Dose: 30 mg Home Med (Home Med) 1 unit PO DAILY [facility] Hydromorphone HCl (Dilaudid) 0.5 mg IVP Q4H PRN PRN Reason: Pain, moderate (4-7) Last Admin: 09/11/17 14:46 Dose: 0.5 mg Dextrose/Sodium Chloride (Dextrose 5%/0.9% Ns 1000 Ml) 1,000 mls @ 50 mls/hr IV .Q20H [facility] Last Admin: 09/12/17 11:33 Dose: 50 mls/hr Insulin Human Regular (Humulin R Med) 0 units SC ACHS [facility] PRN Reason: Protocol Last Admin: 09/12/17 12:13 Dose: Not Given Lamivudine (Epivir) 50 mg PO DAILY [facility] Last Admin: 09/12/17 11:32 Dose: 50 mg Losartan Potassium (Cozaar) 100 mg PO QPM [facility] Last Admin: 09/11/17 18:04 Dose: Not Given Metoprolol Tartrate (Lopressor) 100 mg PO Q12 [facility] Last Admin: 09/12/17 11:26 Dose: 100 mg Oseltamivir Phosphate (Tamiflu Susp) 30 mg PO DAILY [facility] PRN Reason: Protocol Last Admin: 09/12/17 11:32 Dose: 5 ml Sevelamer HCl (Renagel) 800 mg PO TID [facility] Last Admin: 09/12/17 14:58 Dose: Not Given Tamsulosin HCl (Flomax) 0.4 mg PO DAILY [facility] Last Admin: 09/12/17 11:26 Dose: 0.4 mg Vitamin B Complex/Vit C/Folic Acid (Nephro-Christel) 1 tab PO 0800 [facility] Last Admin: 09/12/17 11:26 Dose: 1 tab - Labs Labs: 09/12/17 07:30 09/12/17 07:30 PT 13.7 SECONDS (9.4-12.5) H 09/09/17 09:50 INR 1.19 (0.93-1.08) H 09/09/17 09:50 APTT 38.2 Seconds (25.1-36.5) H 08/30/17 19:07
--- NOTE | 2017-09-12 15:25 | CP.PCM.PN ---
Subjective - Date & Time of Evaluation Date of Evaluation: 09/12/17 Time of Evaluation: 08:00 - Subjective Subjective: General Surgery Progress Note for Dr. Martinez Patient seen and examined at bedside. Patient endorses no complaints; important to note patient is blind and cannot talk. Chart review reveals leukocytosis, though patient is afebrile. CLARITZA drain in the morning was with minimal to scant serosanguinous output. Objective - Vital Signs/Intake and Output Vital Signs (last 24 hours): Temp Pulse Resp BP Pulse Ox 98.1 F 88 19 131/75 90 L 09/12/17 08:52 09/12/17 11:26 09/12/17 08:52 09/12/17 11:26 09/12/17 08:52 Intake and Output: 09/12/17 09/12/17 06:59 18:59 Intake Total 360 0 Output Total 60 Balance 360 -60 - Medications Medications: Current Medications Abacavir Sulfate (Ziagen) 600 mg PO DAILY [facility] Last Admin: 09/12/17 14:58 Dose: Not Given Acetaminophen (Tylenol 325mg Tab) 650 mg PO Q4H PRN PRN Reason: Fever >100.4 F Last Admin: 09/09/17 01:12 Dose: 650 mg Acetaminophen (Tylenol 650 Mg Supp) 650 mg RC Q6H PRN PRN Reason: Fever >100.4 F Last Admin: 09/11/17 14:46 Dose: 650 mg Darbepoetin Mario (Aranesp) 100 mcg IVP ONCE ONE Stop: 09/13/17 10:01 Enoxaparin Sodium (Lovenox) 30 mg SC DAILY [facility] PRN Reason: Protocol Last Admin: 09/09/17 11:06 Dose: 30 mg Home Med (Home Med) 1 unit PO DAILY [facility] Hydromorphone HCl (Dilaudid) 0.5 mg IVP Q4H PRN PRN Reason: Pain, moderate (4-7) Last Admin: 09/11/17 14:46 Dose: 0.5 mg Dextrose/Sodium Chloride (Dextrose 5%/0.9% Ns 1000 Ml) 1,000 mls @ 50 mls/hr IV .Q20H [facility] Last Admin: 09/12/17 11:33 Dose: 50 mls/hr Insulin Human Regular (Humulin R Med) 0 units SC ACHS [facility] PRN Reason: Protocol Last Admin: 09/12/17 12:13 Dose: Not Given Lamivudine (Epivir) 50 mg PO DAILY [facility] Last Admin: 09/12/17 11:32 Dose: 50 mg Losartan Potassium (Cozaar) 100 mg PO QPM [facility] Last Admin: 09/11/17 18:04 Dose: Not Given Metoprolol Tartrate (Lopressor) 100 mg PO Q12 [facility] Last Admin: 09/12/17 11:26 Dose: 100 mg Oseltamivir Phosphate (Tamiflu Susp) 30 mg PO DAILY [facility] PRN Reason: Protocol Last Admin: 09/12/17 11:32 Dose: 5 ml Sevelamer HCl (Renagel) 800 mg PO TID [facility] Last Admin: 09/12/17 14:58 Dose: Not Given Tamsulosin HCl (Flomax) 0.4 mg PO DAILY [facility] Last Admin: 09/12/17 11:26 Dose: 0.4 mg Vitamin B Complex/Vit C/Folic Acid (Nephro-Christel) 1 tab PO 0800 [facility] Last Admin: 09/12/17 11:26 Dose: 1 tab - Labs Labs: 09/12/17 07:30 09/12/17 07:30 PT 13.7 SECONDS (9.4-12.5) H 09/09/17 09:50 INR 1.19 (0.93-1.08) H 09/09/17 09:50 APTT 38.2 Seconds (25.1-36.5) H 08/30/17 19:07 - Head Exam Additional comments: - Constitutional Appears: Well, No Acute Distress - Head Exam Head Exam: ATRAUMATIC, NORMOCEPHALIC - ENT Exam ENT Exam: Mucous Membranes Moist - Respiratory Exam Respiratory Exam: NORMAL BREATHING PATTERN - Cardiovascular Exam Cardiovascular Exam: Tachycardia - GI/Abdominal Exam GI & Abdominal Exam: Soft. absent: Tenderness - Extremities Exam Additional comments: R leg AKA stump with dressing in place, C/D/I. Steve in place with minimal output, On-Q catheters in place - Neurological Exam Neurological Exam: Alert, Awake - Skin Skin Exam: Dry, Warm Assessment and Plan - Assessment and Plan (Free Text) Assessment: 72 year old male s/p POD #2 AKA. Plan: - Monitor dressing & steve output. - Plan to remove steve tomorrow. - Pain control - Continue medical management - Case discussed with Dr. Juan Mitchell DO, PGY-1
[2017-09-12] MEDS: DOLUTEGRAVIR 50 MG PO SCH (19:33)
--- NOTE | 2017-09-13 01:41 | PN ---
DATE: 09/12/2017. SUBJECTIVE: The patient is in bed, in no acute distress, nontoxic. PHYSICAL EXAMINATION: VITAL SIGNS: Temperature is 98, blood pressure is 120/60 and respiratory rate of 16. HEENT: Unremarkable. NECK: Supple. LUNGS: Have decreased breath sounds. HEART: Normal S1 and S2. ABDOMEN: Soft. LABORATORY DATA: Reveals a white count of 18,600, hemoglobin of 9 and platelets of 309. BUN of 28, creatinine of 4.2. Urinalysis is noted. Serology is noted. Microbiology reveals a repeat blood cultures, urine cultures are negative. The patient's procalcitonin is 0.7 on 09/10/2017. The patient's chest x-ray from yesterday is reviewed. ASSESSMENT AND PLAN: This is a 72-year-old male was seen early this morning in 577, bed 1, with severe peripheral vascular disease status post angioplasty of the left tibial artery, urinary tract infection, methicillin-resistant Staphylococcus aureus, Staphylococcus viridans in the past with coagulase negative Staphylococcus bacteriemia, status post amputation of the left foot, chronic osteomyelitis, day #11 on vancomycin, vancomycin intermittently on each dialysis. We would recommend 4 weeks of vancomycin and completing 5 days of Tamiflu for the influenza virus. The patient has been afebrile now again all day today. He will receive vancomycin 500 mg at each dialysis and today is day 11 of 28 days. Cesar Flowers MD
[2017-09-13] MEDS: Insulin Reg-MEDIUM-Coverage SC SCH ×5 (01:46→22:00)
[2017-09-13] MEDS: Multivitamin Vitamin B Complex (Nephro-Vite) Tab PO SCH (09:00)
[2017-09-13 09:10] LABS: HEMOGLOBIN 8.2 g/dL (14.0-18.0); MEAN CELL VOLUME 97.2 fl (80.0-105.0); MEAN CORPUSCULAR HEMOGLOBIN 28.9 pg (25.0-35.0); MEAN CORPUSCULAR HGB CONC 29.7 g/dl (31.0-37.0); MEAN PLATELET VOLUME 11.2 fl (7.0-11.0); RBC 2.84 10^6/uL (3.5-6.1); RED CELL DISTRIBUTION WIDTH 16.5 % (11.5-14.5); WHITE BLOOD COUNT 12.7 10^3/ul (4.5-11.0)
[2017-09-13 09:20] LABS: ALB/GLOB RATIO 0.7 (1.1-1.8); ALBUMIN 2.3 g/dL (3.0-4.8); CALCIUM 8.4 mg/dL (8.4-10.5)
[2017-09-13] MEDS ORDERED: Darbepoetin Alfa 100 mcg/ml Inj IVP ONE (10:00)
--- NOTE | 2017-09-13 14:44 | CP.PCM.PN ---
Subjective - Date & Time of Evaluation Date of Evaluation: 09/13/17 Time of Evaluation: 10:00 - Subjective Subjective: Follow up Nephrology Consultation: Assessment: stable Altered mental status, sepsis with UTI hx of prostate CA Hypertensive Chronic Kidney Disease (I12.9) ESRD on HD via permacath (TTS) Anemia (D64.9), HTN (I12.9) HIV on HAART, PVD s/p angioplasty s/p Rt AKA Influenza Plan plan for HD today as per TTS. nephrovite 1 tab/day aransep 100 mcg weekly for anemia 09/13/17. PRBC as needed not on VDRA, Ca on high side, work up Vit D (34) /PTH/SPEP/CLYDE/PTH-rp all neg. continue with binders for phos Hypertension control with meds as ordered. Patient on RAAS edyta as losartan ID following started flomax. continue with D5NS as with low glucose. d/c IVF once oral intake good. Dose meds/antibiotics for ESRD status. Avoid fleets enema/magnesium based laxatives. Avoid nephrotoxins/NSAIDs/ iodinated contrast (unless needed emergently) Further work up/management as per primary team Thanks for allowing me to participate in care of your patient. Will follow patient with you. Please call if any Qs. d/w team Dr Yandel Arechiga Office: [phone] reason for consult: ESRD, HTN HPI: Pt is a 72 y/o M with hx of HIV on HAART, PVD s/p angioplasty, hypertension (10-15 years), ESRD on HD (via permacath) TTS @ [facility], left foot toe amputations, prostate CA initially admitted with AMS, fever and sepsis renal consult for ESRD, HTN management pt unable to provide hx due to AMS ROS: more awake and oriented Physical Examination: seen on HD General Appearance: uncomfortable, in no acute respiratory distress, ill appearing Vitals reviewed and noted as below Head; Atraumatic, normocephalic ENT: no ulcers no thrush. Tongue is midline dry. Oropharynx: no rash or ulcers. EYES: Pupils are equal, round and reactive to light accommodation. Eye muscles and extraocular movement intact. Sclera is anicteric. Neck; supple no lymphadenopathy, no thyromegaly or bruit Lungs: Normal respiratory rate/effort. Breath sounds bilateral clear Heart: Normal rate. s1s2 normal. No rub or gallop. Extremities: no edema. No varicose veins. s/p Rt AKA Neurological: Patient is oriented x 3 today Skin: Warm and dry. Normal turgor. No rash. Palpitation: Normal elasticity for age Abdomen: Abdomen is soft. Bowel sounds +. There is mild lower abdominal tenderness, no guarding/rigidity no organomegaly Psych: unable MSK: Digits and nails normal, left foot toe amputations in past. Rt AKA. : kidney or bladder not palpable. Access: permacath and maturing left AVF Labs/imaging/EKG reviewed. Past medical history, past surgical history, family history, social history, allergy reviewed and noted as below Family hx: sister was on dialysis. Rest non-contributory Objective - Vital Signs/Intake and Output Vital Signs (last 24 hours): Temp Pulse Resp BP Pulse Ox 98.3 F 82 18 151/73 H 99 09/13/17 07:30 09/13/17 07:30 09/13/17 07:30 09/13/17 07:30 09/13/17 07:30 Intake and Output: 09/13/17 09/13/17 06:59 18:59 Intake Total 0 Output Total 50 5 Balance -50 -5 - Medications Medications: Current Medications Abacavir Sulfate (Ziagen) 600 mg PO DAILY [facility] Last Admin: 09/12/17 14:58 Dose: Not Given Acetaminophen (Tylenol 325mg Tab) 650 mg PO Q4H PRN PRN Reason: Fever >100.4 F Last Admin: 09/13/17 01:15 Dose: 650 mg Acetaminophen (Tylenol 650 Mg Supp) 650 mg RC Q6H PRN PRN Reason: Fever >100.4 F Last Admin: 09/11/17 14:46 Dose: 650 mg Enoxaparin Sodium (Lovenox) 30 mg SC DAILY [facility] PRN Reason: Protocol Last Admin: 09/09/17 11:06 Dose: 30 mg Home Med (Home Med) 1 unit PO DAILY [facility] Last Admin: 09/12/17 19:33 Dose: 1 unit Hydromorphone HCl (Dilaudid) 0.5 mg IVP Q4H PRN PRN Reason: Pain, moderate (4-7) Last Admin: 09/11/17 14:46 Dose: 0.5 mg Dextrose/Sodium Chloride (Dextrose 5%/0.9% Ns 1000 Ml) 1,000 mls @ 50 mls/hr IV .Q20H [facility] Last Admin: 09/12/17 11:33 Dose: 50 mls/hr Insulin Human Regular (Humulin R Med) 0 units SC ACHS [facility] PRN Reason: Protocol Last Admin: 09/13/17 12:26 Dose: Not Given Lamivudine (Epivir) 50 mg PO DAILY [facility] Last Admin: 09/12/17 11:32 Dose: 50 mg Losartan Potassium (Cozaar) 100 mg PO QPM [facility] Last Admin: 09/12/17 19:33 Dose: 100 mg Metoprolol Tartrate (Lopressor) 100 mg PO Q12 [facility] Last Admin: 09/13/17 10:00 Dose: Not Given Oseltamivir Phosphate (Tamiflu Susp) 30 mg PO DAILY [facility] PRN Reason: Protocol Last Admin: 09/12/17 11:32 Dose: 5 ml Sevelamer HCl (Renagel) 800 mg PO TID [facility] Last Admin: 09/13/17 10:00 Dose: Not Given Tamsulosin HCl (Flomax) 0.4 mg PO DAILY [facility] Last Admin: 09/12/17 11:26 Dose: 0.4 mg Vitamin B Complex/Vit C/Folic Acid (Nephro-Christel) 1 tab PO 0800 [facility] Last Admin: 09/13/17 09:00 Dose: Not Given - Labs Labs: 09/13/17 09:00 09/13/17 09:00 PT 13.7 SECONDS (9.4-12.5) H 09/09/17 09:50 INR 1.19 (0.93-1.08) H 09/09/17 09:50 APTT 38.2 Seconds (25.1-36.5) H 08/30/17 19:07
[2017-09-13] MEDS: Oseltamivir 6 MG/ML PO SCH (15:39)
[2017-09-13] MEDS: LamiVUDine 10 mg/ml Syringe PO SCH (15:40)
[2017-09-13] MEDS: DOLUTEGRAVIR 50 MG PO SCH (15:41)
--- NOTE | 2017-09-13 20:36 | CP.PCM.PN ---
Subjective - Date & Time of Evaluation Date of Evaluation: 09/13/17 Time of Evaluation: 07:00 - Subjective Subjective: Surgery: Dr. Martinez Pt seen and examined. No acute events overnight. Admits to some pain in R AKA stump. Tolerating diet. Objective - Vital Signs/Intake and Output Vital Signs (last 24 hours): Temp Pulse Resp BP Pulse Ox 98.3 F 82 18 151/73 H 99 09/13/17 07:30 09/13/17 07:30 09/13/17 07:30 09/13/17 07:30 09/13/17 07:30 Intake and Output: 09/13/17 09/14/17 18:59 06:59 Output Total 5 Balance -5 - Medications Medications: Current Medications Abacavir Sulfate (Ziagen) 600 mg PO DAILY [facility] Last Admin: 09/13/17 15:40 Dose: 600 mg Acetaminophen (Tylenol 325mg Tab) 650 mg PO Q4H PRN PRN Reason: Fever >100.4 F Last Admin: 09/13/17 01:15 Dose: 650 mg Acetaminophen (Tylenol 650 Mg Supp) 650 mg RC Q6H PRN PRN Reason: Fever >100.4 F Last Admin: 09/11/17 14:46 Dose: 650 mg Enoxaparin Sodium (Lovenox) 30 mg SC DAILY [facility] PRN Reason: Protocol Last Admin: 09/09/17 11:06 Dose: 30 mg Home Med (Home Med) 1 unit PO DAILY [facility] Last Admin: 09/13/17 15:41 Dose: Not Given Hydromorphone HCl (Dilaudid) 0.5 mg IVP Q4H PRN PRN Reason: Pain, moderate (4-7) Last Admin: 09/11/17 14:46 Dose: 0.5 mg Dextrose/Sodium Chloride (Dextrose 5%/0.9% Ns 1000 Ml) 1,000 mls @ 50 mls/hr IV .Q20H [facility] Last Admin: 09/12/17 11:33 Dose: 50 mls/hr Insulin Human Regular (Humulin R Med) 0 units SC ACHS [facility] PRN Reason: Protocol Last Admin: 09/13/17 17:56 Dose: Not Given Lamivudine (Epivir) 50 mg PO DAILY [facility] Last Admin: 09/13/17 15:40 Dose: 50 mg Losartan Potassium (Cozaar) 100 mg PO QPM [facility] Last Admin: 09/13/17 17:55 Dose: Not Given Metoprolol Tartrate (Lopressor) 100 mg PO Q12 [facility] Last Admin: 09/13/17 10:00 Dose: Not Given Oseltamivir Phosphate (Tamiflu Susp) 30 mg PO DAILY [facility] PRN Reason: Protocol Last Admin: 09/13/17 15:39 Dose: 30 ml Sevelamer HCl (Renagel) 800 mg PO TID [facility] Last Admin: 09/13/17 17:55 Dose: Not Given Tamsulosin HCl (Flomax) 0.4 mg PO DAILY [facility] Last Admin: 09/13/17 15:40 Dose: 0.4 mg Vitamin B Complex/Vit C/Folic Acid (Nephro-Christel) 1 tab PO 0800 [facility] Last Admin: 09/13/17 09:00 Dose: Not Given - Labs Labs: 09/13/17 09:00 09/13/17 09:00 PT 13.7 SECONDS (9.4-12.5) H 09/09/17 09:50 INR 1.19 (0.93-1.08) H 09/09/17 09:50 APTT 38.2 Seconds (25.1-36.5) H 08/30/17 19:07 - Constitutional Appears: Well, No Acute Distress - ENT Exam ENT Exam: Mucous Membranes Moist - Respiratory Exam Respiratory Exam: NORMAL BREATHING PATTERN - GI/Abdominal Exam GI & Abdominal Exam: Soft - Extremities Exam Additional comments: R AKA stump with ashely in place, C/D/I. - Neurological Exam Neurological Exam: Alert - Skin Skin Exam: Dry, Warm Assessment and Plan - Assessment and Plan (Free Text) Assessment: 72M s/p R AKA; POD#3 Plan: - loki and On-Q catheters removed - pt is clear for DC from surgical standpoint - staple removal in 3-4 weeks - d/w Dr. Juan Borja, PGY-3 Surgery
--- NOTE | 2017-09-14 01:14 | PN ---
DATE: 09/13/2017 SUBJECTIVE: The patient is in bed, in no acute distress. Nontoxic. PHYSICAL EXAMINATION VITAL SIGNS: Temperature was 98, blood pressure was 150/70, respiratory rate of 18. HEENT: Unremarkable. NECK: Supple. HEART: Normal S1 and S2. LUNGS: Have decreased breath sounds. ABDOMEN: Soft and nontender. LABORATORY DATA: Reveals a white count down to 4700, hemoglobin of 8, BUN of 38, creatinine of 5.2. Microbiology is reviewed. Review of orders reveals the patient to be on Tamiflu, abacavir, lamivudine, and dolutegravir, which is his home medication. ASSESSMENT AND PLAN: He is a 72-year-old male who was seen earlier this morning with severe peripheral vascular disease status post angio of the left tibial artery; urinary tract infection, methicillin-resistant Staphylococcus aureus, Streptococcus viridans; coag negative staphylococcal bacteremia status post amputation of the left foot, chronic osteomyelitis, today is day #12 of vancomycin. We will recommend four weeks of vancomycin intermittently at dialysis and complete five days of Tamiflu. Cesar Flowers MD
[2017-09-14] MEDS: Insulin Reg-MEDIUM-Coverage SC SCH ×2 (08:00→12:01)
--- NOTE | 2017-09-14 08:43 | PN ---
DATE: 09/13/2017 SUBJECTIVE: I saw him resting comfortably in bed. He is status post right leg AKA for severe infection. MEDICATIONS: He is on Cozaar, dextrose, Dilaudid, Epivir, Flomax, insulin, Lopressor, Lovenox, Nephro-Christel, Renagel, Tamiflu, Tylenol, Ziagen. He is definitely getting better. PHYSICAL EXAMINATION: GENERAL: He is alert, he is talking, and he is calm. VITAL SIGNS: He had a 98.3 temperature, 82 pulse, 151/73 blood pressure, 18 respiratory rate, 99% O2 saturation on room air. Worse temperature was 100.9, it is definitely improving. HEENT: Head is atraumatic, normocephalic. HEART: Regular rate. LUNGS: Decreased breath sounds, but clear. ABDOMEN: Soft. EXTREMITIES: He lost some weight, he has got a right AKA, now it is bandaged. LABORATORY DATA: He has 12.7 white count, coming down nicely. He has a 8.2 hemoglobin; if it drops below 8, I will transfuse him, 27.6 hematocrit with a 332 platelets. He has a 138 sodium, potassium 4, BUN 38, creatinine 5.4 on dialysis. GFR is 10. Sugar is 113. Calcium is 8.4, total bilirubin 0.4, AST 59, ALT 30, alk phos 121, total protein is 5.8. ASSESSMENT AND PLAN: Overall, I think he is doing better since the amputation. I advised him to go back to which is at [facility] rehab. He has been seen by multiple physicians, Infectious Disease, Surgery and Renal. He has got multiple problems, status post angioplasty of the left tibial artery, urinary tract infection, methicillin-resistant Staphylococcus aureus, Staphylococcus viridans in the past. Coagulase-negative Staphylococcus bacteremia, status post amputation of the left foot, chronic osteomyelitis, day #11 on vancomycin, intermittently on dialysis. He is also status post right above knee amputation. He is on Tamiflu for the flu, and I will get him back to subacute rehab. He is day 11 of 28 days of IV vancomycin on dialysis. Check his labs tomorrow. May be he could go back tomorrow if he starts to improve even better today, back to [facility] for continued treatment and care. We will get physical therapy back in. Parag Brownlee DO [facility] # [id number] LORENZA
[2017-09-14 08:53] LABS: HEMOGLOBIN 8.8 g/dL (14.0-18.0); MEAN CELL VOLUME 96.8 fl (80.0-105.0); MEAN CORPUSCULAR HEMOGLOBIN 28.3 pg (25.0-35.0); MEAN CORPUSCULAR HGB CONC 29.2 g/dl (31.0-37.0); MEAN PLATELET VOLUME 11.2 fl (7.0-11.0); RBC 3.11 10^6/uL (3.5-6.1); RED CELL DISTRIBUTION WIDTH 16.6 % (11.5-14.5)
[2017-09-14 09:20] LABS: ALB/GLOB RATIO 0.7 (1.1-1.8); ALBUMIN 2.7 g/dL (3.0-4.8); CALCIUM 8.7 mg/dL (8.4-10.5)
[2017-09-14] MEDS: LamiVUDine 10 mg/ml Syringe PO SCH ×2 (11:45→11:47)
[2017-09-14] MEDS: Multivitamin Vitamin B Complex (Nephro-Vite) Tab PO SCH (11:45)
[2017-09-14] MEDS: Oseltamivir 6 MG/ML PO SCH (11:46)
[2017-09-14] MEDS: DOLUTEGRAVIR 50 MG PO SCH (11:47)
--- NOTE | 2017-09-14 13:22 | CP.PCM.PN ---
Subjective - Date & Time of Evaluation Date of Evaluation: 09/14/17 Time of Evaluation: 13:21 - Subjective Subjective: Follow up Nephrology Consultation: Assessment: stable Altered mental status, sepsis with UTI hx of prostate CA Hypertensive Chronic Kidney Disease (I12.9) ESRD on HD via permacath (TTS) Anemia (D64.9), HTN (I12.9) HIV on HAART, PVD s/p angioplasty s/p Rt AKA Influenza Plan plan for HD tomorrow as per TTS. nephrovite 1 tab/day aransep 100 mcg weekly for anemia 09/13/17. PRBC as needed not on VDRA, Ca on high side, work up Vit D (34) /PTH/SPEP/CLYDE/PTH-rp all neg. continue with binders for phos Hypertension control with meds as ordered. Patient on RAAS edyta as losartan ID following started flomax. d/c IVF Dose meds/antibiotics for ESRD status. Avoid fleets enema/magnesium based laxatives. Avoid nephrotoxins/NSAIDs/ iodinated contrast (unless needed emergently) Further work up/management as per primary team Thanks for allowing me to participate in care of your patient. Will follow patient with you. Please call if any Qs. d/w team Dr Yandel Arechiga Office: [phone] reason for consult: ESRD, HTN HPI: Pt is a 72 y/o M with hx of HIV on HAART, PVD s/p angioplasty, hypertension (10-15 years), ESRD on HD (via permacath) TTS @ [facility], left foot toe amputations, prostate CA initially admitted with AMS, fever and sepsis renal consult for ESRD, HTN management pt unable to provide hx due to AMS ROS: awake and oriented. feels better. denies CP/SOB Physical Examination: General Appearance: comfortable, in no acute respiratory distress, better appearing Vitals reviewed and noted as below Head; Atraumatic, normocephalic ENT: no ulcers no thrush. Tongue is midline dry. Oropharynx: no rash or ulcers. EYES: Pupils are equal, round and reactive to light accommodation. Eye muscles and extraocular movement intact. Sclera is anicteric. Neck; supple no lymphadenopathy, no thyromegaly or bruit Lungs: Normal respiratory rate/effort. Breath sounds bilateral clear Heart: Normal rate. s1s2 normal. No rub or gallop. Extremities: no edema. No varicose veins. s/p Rt AKA Neurological: Patient is alert oriented x 3 today Skin: Warm and dry. Normal turgor. No rash. Palpitation: Normal elasticity for age Abdomen: Abdomen is soft. Bowel sounds +. There is mild lower abdominal tenderness, no guarding/rigidity no organomegaly Psych: unable MSK: Digits and nails normal, left foot toe amputations in past. Rt AKA. : kidney or bladder not palpable. Access: permacath and maturing left AVF Labs/imaging/EKG reviewed. Past medical history, past surgical history, family history, social history, allergy reviewed and noted as below Family hx: sister was on dialysis. Rest non-contributory Objective - Vital Signs/Intake and Output Vital Signs (last 24 hours): Temp Pulse Resp BP Pulse Ox 98.5 F 91 H 18 150/80 99 09/14/17 07:30 09/14/17 07:30 09/14/17 07:30 09/14/17 11:45 09/14/17 07:30 Intake and Output: 09/14/17 09/14/17 06:59 18:59 Intake Total 360 Output Total 70 Balance 290 - Medications Medications: Current Medications Abacavir Sulfate (Ziagen) 600 mg PO DAILY [facility] Last Admin: 09/14/17 11:44 Dose: 600 mg Acetaminophen (Tylenol 325mg Tab) 650 mg PO Q4H PRN PRN Reason: Fever >100.4 F Last Admin: 09/13/17 01:15 Dose: 650 mg Acetaminophen (Tylenol 650 Mg Supp) 650 mg RC Q6H PRN PRN Reason: Fever >100.4 F Last Admin: 09/11/17 14:46 Dose: 650 mg Enoxaparin Sodium (Lovenox) 30 mg SC DAILY [facility] PRN Reason: Protocol Last Admin: 09/09/17 11:06 Dose: 30 mg Home Med (Home Med) 1 unit PO DAILY [facility] Last Admin: 09/14/17 11:47 Dose: Not Given Hydromorphone HCl (Dilaudid) 0.5 mg IVP Q4H PRN PRN Reason: Pain, moderate (4-7) Last Admin: 09/11/17 14:46 Dose: 0.5 mg Insulin Human Regular (Humulin R Med) 0 units SC ACHS [facility] PRN Reason: Protocol Last Admin: 09/14/17 12:01 Dose: 8 units Lamivudine (Epivir) 50 mg PO DAILY [facility] Last Admin: 09/14/17 11:47 Dose: 50 mg Losartan Potassium (Cozaar) 100 mg PO QPM [facility] Last Admin: 09/13/17 17:55 Dose: Not Given Metoprolol Tartrate (Lopressor) 100 mg PO Q12 [facility] Last Admin: 09/14/17 11:45 Dose: 100 mg Oseltamivir Phosphate (Tamiflu Susp) 30 mg PO DAILY [facility] PRN Reason: Protocol Last Admin: 09/14/17 11:46 Dose: 30 ml Sevelamer HCl (Renagel) 800 mg PO TID [facility] Last Admin: 09/14/17 11:44 Dose: 800 mg Tamsulosin HCl (Flomax) 0.4 mg PO DAILY [facility] Last Admin: 09/14/17 11:45 Dose: 0.4 mg Vitamin B Complex/Vit C/Folic Acid (Nephro-Christel) 1 tab PO 0800 [facility] Last Admin: 09/14/17 11:45 Dose: 1 tab - Labs Labs: 09/14/17 08:30 09/14/17 08:30 PT 13.7 SECONDS (9.4-12.5) H 09/09/17 09:50 INR 1.19 (0.93-1.08) H 09/09/17 09:50 APTT 38.2 Seconds (25.1-36.5) H 08/30/17 19:07
[2017-09-14] MEDS ORDERED: Dextrose 50% SYRINGE Inj (50 ml) IVP ONE (16:23)
--- NOTE | 2017-09-14 18:34 | CP.PCM.PN ---
Subjective - Date & Time of Evaluation Date of Evaluation: 09/14/17 Time of Evaluation: 13:00 - Subjective Subjective: Awake and alert, no fevers overnight, not in distress. Objective - Vital Signs/Intake and Output Vital Signs (last 24 hours): Temp Pulse Resp BP Pulse Ox 97.7 F 75 18 150/80 98 09/14/17 17:40 09/14/17 17:40 09/14/17 17:40 09/14/17 11:45 09/14/17 17:40 Intake and Output: 09/14/17 09/14/17 06:59 18:59 Intake Total 360 Output Total 70 5 Balance 290 -5 - Medications Medications: Current Medications Abacavir Sulfate (Ziagen) 600 mg PO DAILY [facility] Last Admin: 09/14/17 11:44 Dose: 600 mg Acetaminophen (Tylenol 325mg Tab) 650 mg PO Q4H PRN PRN Reason: Fever >100.4 F Last Admin: 09/13/17 01:15 Dose: 650 mg Acetaminophen (Tylenol 650 Mg Supp) 650 mg RC Q6H PRN PRN Reason: Fever >100.4 F Last Admin: 09/11/17 14:46 Dose: 650 mg Enoxaparin Sodium (Lovenox) 30 mg SC DAILY [facility] PRN Reason: Protocol Last Admin: 09/09/17 11:06 Dose: 30 mg Home Med (Home Med) 1 unit PO DAILY [facility] Last Admin: 09/14/17 11:47 Dose: Not Given Insulin Human Regular (Humulin R Med) 0 units SC ACHS [facility] PRN Reason: Protocol Last Admin: 09/14/17 12:01 Dose: 8 units Lamivudine (Epivir) 50 mg PO DAILY [facility] Last Admin: 09/14/17 11:47 Dose: 50 mg Losartan Potassium (Cozaar) 100 mg PO QPM [facility] Last Admin: 09/14/17 17:29 Dose: Not Given Metoprolol Tartrate (Lopressor) 100 mg PO Q12 [facility] Last Admin: 09/14/17 11:45 Dose: 100 mg Oseltamivir Phosphate (Tamiflu Susp) 30 mg PO DAILY [facility] PRN Reason: Protocol Last Admin: 09/14/17 11:46 Dose: 30 ml Sevelamer HCl (Renagel) 800 mg PO TID [facility] Last Admin: 09/14/17 17:31 Dose: 800 mg Tamsulosin HCl (Flomax) 0.4 mg PO DAILY [facility] Last Admin: 09/14/17 11:45 Dose: 0.4 mg Vitamin B Complex/Vit C/Folic Acid (Nephro-Christel) 1 tab PO 0800 [facility] Last Admin: 09/14/17 11:45 Dose: 1 tab - Labs Labs: 09/14/17 08:30 09/14/17 08:30 PT 13.7 SECONDS (9.4-12.5) H 09/09/17 09:50 INR 1.19 (0.93-1.08) H 09/09/17 09:50 APTT 38.2 Seconds (25.1-36.5) H 08/30/17 19:07 - Constitutional Appears: Non-toxic - Head Exam Head Exam: NORMAL INSPECTION - ENT Exam ENT Exam: Mucous Membranes Moist - Neck Exam Neck Exam: absent: Meningismus - Respiratory Exam Respiratory Exam: Decreased Breath Sounds - Cardiovascular Exam Cardiovascular Exam: +S1, +S2 - GI/Abdominal Exam GI & Abdominal Exam: Soft. absent: Tenderness - Extremities Exam Additional comments: right AKA stump with dressings in place Assessment and Plan - Assessment and Plan (Free Text) Assessment: Assessment severe PAD S/P angioplasty of the left tibial artery S/P right AKA UTI with MRSA and Strep viridans systemic viral illness with Influenza history of left foot 3rd digit chronic osteomyelitis S/P amputation and debridement right sided nephrolithiasis history of severe sepsis with acute on chronic renal failure probably due to pyelonephritis with E. coli bacteremia history of C. diff. associated diarrhea Charcot foot, left history of left 2nd toe dry gangrene Chronic renal failure on hemodialysis HTN prostate CA HIV ([place] CD4 count here at [facility] 03/2016 349 and virus load < 1.3 log) history of osteomyelitis of left first toe S/P amputation (2015) gout history of left foot ulcers Plan continue IV Vanco (intermittent) day 11 for 4 weeks; completed course of Tamiflu continue antiretroviral therapy (lamivudine, abacavir on formulary but dolutegravir should be taken by patient from his home supply) overall prognosis is poor
--- NOTE | 2017-09-15 02:24 | DS ---
HISTORY OF PRESENT ILLNESS: I saw him sitting up in bed reading the newspaper, completely alert and oriented, best I have seen him in weeks. He is doing fantastic. He has some questions about what happened to him when he was septic. He is much better. PHYSICAL EXAMINATION: VITAL SIGNS: He has a 98.3 temperature, 82 pulse, 151/73 blood pressure, 18 respiratory rate, 99% sat on room air. He did have a 100.9 temperature last night. HEENT: Head is atraumatic, normocephalic. HEART: Regular rate. LUNGS: Clear to auscultation. ABDOMEN: Soft. EXTREMITIES: Got a right AKA, left has got bad feet. MEDICATIONS: He is currently on Cozaar, dextrose, Dilaudid, Epivir, Flomax, insulin, Lopressor, Lovenox, Nephro-Christel, Renagel, Tamiflu, Tylenol, and Ziagen. LABORATORY DATA: He has a 12.7 white count came down from 18.6, 8.2 hemoglobin, low, 27.6 hematocrit, 332 platelets. Yesterday's SMA-20 was pretty good. Last blood sugar was 112 and it was okay. ASSESSMENT AND PLAN: He is being seen by multiple doctors, Surgery, Infection Disease, Renal. I think he might be able to be discharged to [facility] today with intermittent vancomycin. Surgery is happy and they want to leave the ashely in for a month they said. I will discuss this with shoe caser and social work about possibly getting back to [facility] for subacute rehab, and finally he is awake, oriented and comfortable. Parag Brownlee DO
[2017-09-15] MEDS: Insulin Reg-MEDIUM-Coverage SC SCH ×4 (03:32→22:50)
[2017-09-15 06:39] LABS: BASO # 0.02 K/mm3 (0.0-2.0); BASO % 0.2 % (0.0-3.0); EOS # 0.3 (0.0-0.7); EOS % 2.6 % (1.5-5.0); GRAN # 6.94 (1.4-6.5); GRAN % 64.1 % (50.0-68.0); HEMOGLOBIN 8.5 g/dL (14.0-18.0); LYMPH # 2.4 (1.2-3.4); LYMPH % 22.1 % (22.0-35.0); MEAN CELL VOLUME 93.5 fl (80.0-105.0); MEAN CORPUSCULAR HEMOGLOBIN 28.9 pg (25.0-35.0); MEAN CORPUSCULAR HGB CONC 30.9 g/dl (31.0-37.0); MEAN PLATELET VOLUME 10.6 fl (7.0-11.0); MONO # 1.2 (0.1-0.6); RBC 2.94 10^6/uL (3.5-6.1); RED CELL DISTRIBUTION WIDTH 16.4 % (11.5-14.5); WHITE BLOOD COUNT 10.8 10^3/ul (4.5-11.0)
[2017-09-15 06:54] LABS: ALB/GLOB RATIO 0.7 (1.1-1.8); ALBUMIN 2.6 g/dL (3.0-4.8); CALCIUM 8.6 mg/dL (8.4-10.5); MAGNESIUM 2.2 mg/dL (1.7-2.2)
--- NOTE | 2017-09-15 10:55 | CP.PCM.PN ---
Subjective - Date & Time of Evaluation Date of Evaluation: 09/15/17 Time of Evaluation: 10:55 - Subjective Subjective: Follow up Nephrology Consultation: Assessment: stable Altered mental status, sepsis with UTI hx of prostate CA Hypertensive Chronic Kidney Disease (I12.9) ESRD on HD via permacath (TTS) Anemia (D64.9), HTN (I12.9) HIV on HAART, PVD s/p angioplasty s/p Rt AKA Influenza Plan plan for HD today as per TTS. nephrovite 1 tab/day aransep 100 mcg weekly for anemia 09/13/17. PRBC as needed not on VDRA, Ca on high side, work up Vit D (34) /PTH/SPEP/CLYDE/PTH-rp all neg. continue with binders for phos Hypertension control with meds as ordered. Patient on RAAS edyta as losartan ID following Dose meds/antibiotics for ESRD status. Avoid fleets enema/magnesium based laxatives. Avoid nephrotoxins/NSAIDs/ iodinated contrast (unless needed emergently) Further work up/management as per primary team Thanks for allowing me to participate in care of your patient. Will follow patient with you. Please call if any Qs. d/w team Dr Yandel Arechiga Office: [phone] reason for consult: ESRD, HTN HPI: Pt is a 72 y/o M with hx of HIV on HAART, PVD s/p angioplasty, hypertension (10-15 years), ESRD on HD (via permacath) TTS @ [facility], left foot toe amputations, prostate CA initially admitted with AMS, fever and sepsis renal consult for ESRD, HTN management pt unable to provide hx due to AMS ROS: awake and oriented. feels better. denies CP/SOB Physical Examination: seen on HD General Appearance: comfortable, in no acute respiratory distress, better appearing Vitals reviewed and noted as below Head; Atraumatic, normocephalic ENT: no ulcers no thrush. Tongue is midline dry. Oropharynx: no rash or ulcers. EYES: Pupils are equal, round and reactive to light accommodation. Eye muscles and extraocular movement intact. Sclera is anicteric. Neck; supple no lymphadenopathy, no thyromegaly or bruit Lungs: Normal respiratory rate/effort. Breath sounds bilateral clear Heart: Normal rate. s1s2 normal. No rub or gallop. Extremities: no edema. No varicose veins. s/p Rt AKA Neurological: Patient is alert oriented x 3 today Skin: Warm and dry. Normal turgor. No rash. Palpitation: Normal elasticity for age Abdomen: Abdomen is soft. Bowel sounds +. There is mild lower abdominal tenderness, no guarding/rigidity no organomegaly Psych: unable MSK: Digits and nails normal, left foot toe amputations in past. Rt AKA. : kidney or bladder not palpable. Access: permacath and maturing left AVF Labs/imaging/EKG reviewed. Past medical history, past surgical history, family history, social history, allergy reviewed and noted as below Family hx: sister was on dialysis. Rest non-contributory Objective - Vital Signs/Intake and Output Vital Signs (last 24 hours): Temp Pulse Resp BP Pulse Ox 98.4 F 85 18 144/74 98 09/15/17 08:48 09/15/17 08:48 09/15/17 08:48 09/15/17 08:48 09/15/17 08:48 Intake and Output: 09/15/17 09/15/17 06:59 18:59 Intake Total 480 Output Total 155 Balance 325 - Medications Medications: Current Medications Acetaminophen (Tylenol 325mg Tab) 650 mg PO Q4H PRN PRN Reason: Fever >100.4 F Last Admin: 09/15/17 09:01 Dose: 650 mg Acetaminophen (Tylenol 650 Mg Supp) 650 mg RC Q6H PRN PRN Reason: Fever >100.4 F Last Admin: 09/11/17 14:46 Dose: 650 mg Enoxaparin Sodium (Lovenox) 30 mg SC DAILY [facility] PRN Reason: Protocol Last Admin: 09/09/17 11:06 Dose: 30 mg Home Med (Home Med) 1 unit PO DAILY [facility] Last Admin: 09/14/17 11:47 Dose: Not Given Insulin Human Regular (Humulin R Med) 0 units SC ACHS [facility] PRN Reason: Protocol Last Admin: 09/15/17 03:32 Dose: Not Given Lamivudine (Epivir) 50 mg PO DAILY [facility] Last Admin: 09/14/17 11:47 Dose: 50 mg Losartan Potassium (Cozaar) 100 mg PO QPM [facility] Last Admin: 09/14/17 17:29 Dose: Not Given Metoprolol Tartrate (Lopressor) 100 mg PO Q12 [facility] Last Admin: 09/14/17 22:25 Dose: Not Given Sevelamer HCl (Renagel) 800 mg PO TID [facility] Last Admin: 09/14/17 17:31 Dose: 800 mg Tamsulosin HCl (Flomax) 0.4 mg PO DAILY [facility] Last Admin: 09/14/17 11:45 Dose: 0.4 mg Vitamin B Complex/Vit C/Folic Acid (Nephro-Christel) 1 tab PO 0800 [facility] Last Admin: 09/14/17 11:45 Dose: 1 tab - Labs Labs: 09/15/17 06:30 09/15/17 06:30 PT 13.7 SECONDS (9.4-12.5) H 09/09/17 09:50 INR 1.19 (0.93-1.08) H 09/09/17 09:50 APTT 38.2 Seconds (25.1-36.5) H 08/30/17 19:07
[2017-09-15] MEDS: DOLUTEGRAVIR 50 MG PO SCH (11:31)
[2017-09-15] MEDS: LamiVUDine 10 mg/ml Syringe PO SCH (11:32)
[2017-09-15] MEDS: Multivitamin Vitamin B Complex (Nephro-Vite) Tab PO SCH (11:33)
--- NOTE | 2017-09-16 03:31 | PN ---
DATE: 09/15/2017 SUBJECTIVE: The patient seen early this morning. No fevers. No chills. No nausea. No vomiting. However, chronically weak and stage. PHYSICAL EXAMINATION: VITAL SIGNS: Temperature of 98, blood pressure is 120/70 and respiratory rate of 16. HEENT: Unremarkable. NECK: Supple. LUNGS: Have decreased breath sounds. HEART: Normal S1 and S2. ABDOMEN: Soft. LABORATORY DATA: Reveals a white count of 10,000. The patient's influenza is positive 256. Serology and vancomycin random level of 16 was noted. Review of orders reveals the patient to be on off of the antibiotics. ASSESSMENT AND PLAN: This is a 72-year-old male who was seen early this morning with severe peripheral artery disease, angioplasty, status post right [id number] amputation with systemic illness also with influenza and currently on intermittent vancomycin day #12 of four weeks, completed course of Tamiflu. Continue the HIV medications. Long-term prognosis is quite poor for this patient who appears chronically ill and cachectic. Cesar Flowers MD
[2017-09-16] MEDS: Multivitamin Vitamin B Complex (Nephro-Vite) Tab PO SCH (08:33)
[2017-09-16] MEDS: Insulin Reg-MEDIUM-Coverage SC SCH ×2 (08:35→17:36)
--- NOTE | 2017-09-16 11:25 | DS ---
HISTORY OF PRESENT ILLNESS: I saw Raza resting comfortably in bed. He is alert. He is doing well. He is much improved. We are trying to get him to [facility] for physical therapy. Continue with treatment and dialysis there with vancomycin and dialysis for another 4 weeks. MEDICATIONS: He is on Cozaar, dextrose, Epivir, Flomax, insulin coverage, Lopressor, Lovenox, Nephro-Christel, Renagel, Tylenol, and he will get vancomycin on dialysis. PHYSICAL EXAMINATION: VITAL SIGNS: He has a 98.4 temperature, 85 pulse, 144/74 blood pressure, 18 respiratory rate, 98% sat on room air. HEENT: Head is atraumatic, normocephalic. HEART: Regular rate. LUNGS: Decreased breath sounds, but clear. ABDOMEN: Soft. EXTREMITIES: He has a right AKA, left foot is bad, but no edema. LABORATORY DATA: He has a 136 sodium, potassium 4.3, BUN 37, creatinine 5.1, calcium is 8.6, phosphorous 3.4, magnesium 2.2, total bili is 0.4. Last blood sugar was 109, AST is 81, ALT is 41, alk phos 142, total protein 6.3. White count 9.8, hemoglobin 8.5, hematocrit 27.5, platelets of 419. ASSESSMENT AND PLAN: This is as good I think it is we are going to get him. He was seen by many physicians here. I am hoping to get him to [facility] today. He will continue IV vancomycin day 11 of 4 weeks, completed course of Tamiflu, he will get the vancomycin dose after dialysis. He has a right above-knee amputation due to severe right foot gangrene and osteomyelitis. He has severe sepsis, urinary tract infection. Parag Brownlee DO
[2017-09-16] MEDS: DOLUTEGRAVIR 50 MG PO SCH (11:28)
[2017-09-16] MEDS: LamiVUDine 10 mg/ml Syringe PO SCH (11:50)
--- NOTE | 2017-09-16 14:14 | CP.PCM.PN ---
Subjective - Date & Time of Evaluation Date of Evaluation: 09/16/17 Time of Evaluation: 14:13 - Subjective Subjective: Follow up Nephrology Consultation: Assessment: stable Altered mental status, sepsis with UTI hx of prostate CA Hypertensive Chronic Kidney Disease (I12.9) ESRD on HD via permacath (TTS) Anemia (D64.9), HTN (I12.9) HIV on HAART, PVD s/p angioplasty s/p Rt AKA Influenza Plan plan for HD sunday as per TTS. nephrovite 1 tab/day aransep 100 mcg weekly for anemia 09/13/17. PRBC as needed not on VDRA, Ca on high side, work up Vit D (34) /PTH/SPEP/CLYDE/PTH-rp all neg. continue with binders for phos Hypertension control with meds as ordered. Patient on RAAS edyta as losartan ID following Dose meds/antibiotics for ESRD status. Avoid fleets enema/magnesium based laxatives. Avoid nephrotoxins/NSAIDs/ iodinated contrast (unless needed emergently) Further work up/management as per primary team. d/c planning ongoing Thanks for allowing me to participate in care of your patient. Will follow patient with you. Please call if any Qs. d/w team Dr Yandel Arechiga Office: [phone] reason for consult: ESRD, HTN HPI: Pt is a 72 y/o M with hx of HIV on HAART, PVD s/p angioplasty, hypertension (10-15 years), ESRD on HD (via permacath) TTS @ [facility], left foot toe amputations, prostate CA initially admitted with AMS, fever and sepsis renal consult for ESRD, HTN management pt unable to provide hx due to AMS ROS: awake and oriented. doesn' feel well. denies CP/SOB Physical Examination: General Appearance: comfortable, in no acute respiratory distress, Vitals reviewed and noted as below Head; Atraumatic, normocephalic ENT: no ulcers no thrush. Tongue is midline dry. Oropharynx: no rash or ulcers. EYES: Pupils are equal, round and reactive to light accommodation. Eye muscles and extraocular movement intact. Sclera is anicteric. Neck; supple no lymphadenopathy, no thyromegaly or bruit Lungs: Normal respiratory rate/effort. Breath sounds bilateral clear Heart: Normal rate. s1s2 normal. No rub or gallop. Extremities: no edema. No varicose veins. s/p Rt AKA Neurological: Patient is alert oriented x 3 today follwo commands,. no focal deficit Skin: Warm and dry. Normal turgor. No rash. Palpitation: Normal elasticity for age Abdomen: Abdomen is soft. Bowel sounds +. There is mild lower abdominal tenderness, no guarding/rigidity no organomegaly Psych: limited insight MSK: Digits and nails normal, left foot toe amputations in past. Rt AKA. : kidney or bladder not palpable. Access: permacath and maturing left AVF Labs/imaging/EKG reviewed. Past medical history, past surgical history, family history, social history, allergy reviewed and noted as below Family hx: sister was on dialysis. Rest non-contributory Objective - Vital Signs/Intake and Output Vital Signs (last 24 hours): Temp Pulse Resp BP Pulse Ox 98.7 F 83 18 136/69 98 09/16/17 08:29 09/16/17 11:25 09/16/17 08:29 09/16/17 11:25 09/16/17 08:29 Intake and Output: 09/16/17 09/16/17 06:59 18:59 Intake Total 760 60 Output Total 200 375 Balance 560 -315 - Medications Medications: Current Medications Acetaminophen (Tylenol 325mg Tab) 650 mg PO Q4H PRN PRN Reason: Fever >100.4 F Last Admin: 09/15/17 09:01 Dose: 650 mg Acetaminophen (Tylenol 650 Mg Supp) 650 mg RC Q6H PRN PRN Reason: Fever >100.4 F Last Admin: 09/11/17 14:46 Dose: 650 mg Enoxaparin Sodium (Lovenox) 30 mg SC DAILY [facility] PRN Reason: Protocol Last Admin: 09/09/17 11:06 Dose: 30 mg Home Med (Home Med) 1 unit PO DAILY [facility] Last Admin: 09/16/17 11:28 Dose: 1 unit Insulin Human Regular (Humulin R Med) 0 units SC ACHS [facility] PRN Reason: Protocol Last Admin: 09/16/17 08:35 Dose: Not Given Lamivudine (Epivir) 50 mg PO DAILY [facility] Last Admin: 09/16/17 11:50 Dose: 50 mg Losartan Potassium (Cozaar) 100 mg PO QPM [facility] Last Admin: 09/15/17 18:01 Dose: 100 mg Metoprolol Tartrate (Lopressor) 100 mg PO Q12 [facility] Last Admin: 09/16/17 11:25 Dose: 100 mg Sevelamer HCl (Renagel) 800 mg PO TID [facility] Last Admin: 09/16/17 11:27 Dose: 800 mg Tamsulosin HCl (Flomax) 0.4 mg PO DAILY [facility] Last Admin: 09/16/17 11:27 Dose: 0.4 mg Vitamin B Complex/Vit C/Folic Acid (Nephro-Christel) 1 tab PO 0800 [facility] Last Admin: 09/16/17 08:33 Dose: 1 tab - Labs Labs: 09/15/17 06:30 09/15/17 06:30 PT 13.7 SECONDS (9.4-12.5) H 09/09/17 09:50 INR 1.19 (0.93-1.08) H 09/09/17 09:50 APTT 38.2 Seconds (25.1-36.5) H 08/30/17 19:07
[2017-09-16] MEDS ORDERED: Petrolatum Oint Foilpak (5 gm) TOP PRN (15:56)
--- NOTE | 2017-09-16 19:12 | PN ---
DATE: 09/16/2017 SUBJECTIVE: The patient is seen earlier today in 577, bed 1. No fevers, no chills. OBJECTIVE: VITAL SIGNS: Temperature is 98, blood pressure is 130/60, respiratory rate of 16. HEENT: Unremarkable. NECK: Supple. LUNGS: Have decreased breath sounds. HEART: Normal S1, S2. ABDOMEN: Soft, nontender. LABORATORY EXAMINATION: Reveals a white count of 10,000 and chemistries reveals the patient's creatinine is noted at 5.1 and microbiology is noted. ASSESSMENT AND PLAN: A 72-year-old male who was seen early this morning with severe peripheral artery disease and angioplasty status post a right hrtzj-[id number] amputation, systemic illness with influenza and on vancomycin, day #13 of 28 days. The patient has completed Tamiflu therapy, continues human immunodeficiency virus medications. The patient is chronically ill and weak and overall prognosis is quite poor. Cesar Flowers MD
[2017-09-17] MEDS: Insulin Reg-MEDIUM-Coverage SC SCH ×3 (00:55→11:30)
[2017-09-17 05:05] VITALS: O2SAT 98
--- NOTE | 2017-09-17 08:19 | PN ---
DATE: 09/16/2017 SUBJECTIVE: I saw him resting comfortably in bed. He is alert and oriented x3. Feeling well and in no acute distress. No chest pain. No shortness of breath. Very alert. PHYSICAL EXAMINATION: VITAL SIGNS: Temperature 98.7, 83 pulse, 136/64 blood pressure, 18 respiratory rate, and 98% O2 sat on room air. HEENT: Head is atraumatic and normocephalic. HEART: Regular rate. LUNGS: Clear to auscultation. ABDOMEN: Soft and nontender. EXTREMITIES: He has got right AKA and left leg, he has got multiple foot issues, but no edema. MEDICATIONS: He is currently on Cozaar, Epivir, Flomax, Lopressor, Lovenox, Nephro-Christel, Renagel, and Tylenol. LABORATORY DATA: He has 10.8 white count, 8.5 hemoglobin, and 27.5 hematocrit with 419 platelets. Sodium 136, potassium 4.3, BUN 37, creatinine 5.1, last blood sugar was 77, calcium is 8.6, total bilirubin is AST is 81, ALT is 41, and alkaline phosphatase is 142. He is off his IV antibiotics. He is being seen by Infectious Disease, Renal, and Surgery. He had severe peripheral heart disease, angioplasty, status post right above-knee amputation, stomach illness, and influenza. He is on Tamiflu. He has got HIV, prostate cancer history, because he is chronically ill could be on vancomycin, had dialysis, waiting to get we can discharge him back to [facility] for physical therapy. Parag Brownlee DO MTDD
[2017-09-17 08:54] VITALS: BP 133/77; RESP 20; TEMP 98.8
[2017-09-17 10:19] LABS: ALB/GLOB RATIO 0.8 (1.1-1.8); ALBUMIN 2.9 g/dL (3.0-4.8)
[2017-09-17] MEDS: Multivitamin Vitamin B Complex (Nephro-Vite) Tab PO SCH (12:03)
[2017-09-17 12:12] VITALS: PULSE 72
--- NOTE | 2017-09-17 13:23 | PN ---
DATE: SUBJECTIVE: He is comfortable in bed. He is alert. He is talking. He is weak, not much for an appetite, but I do think he is improved. Status post right above-knee amputation. 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 MEDICATIONS: He is on Cozaar, Epivir, Flomax, insulin, Lopressor, Lovenox, Nephro-Christel, Renagel, Tylenol, and Ziagen. PHYSICAL EXAMINATION: VITAL SIGNS: He has 97.8 temperature, 82 pulse, 123/76 blood pressure, 18 respiratory rate, and 98% O2 saturation on room air. HEENT: His head is atraumatic and normocephalic. HEART: Regular rate. LUNGS: Decreased breath sounds, but clear. ABDOMEN: Soft and scaphoid. EXTREMITIES: Right above-knee amputation. Left leg with no edema. NEUROLOGIC: He is frail losing weight. LABORATORY DATA: He has 10.8 white count, 8.5 hemoglobin, and 27.5 hematocrit with 419 platelets. He has 136 sodium, potassium of 4.3, BUN of 37, and creatinine of 5.1. Blood sugar is 80, calcium is 8.6, phosphorus is 2.4, and magnesium is 2.2. Total bilirubin is 0.4, AST is 81, ALT is 41, and alkaline phosphatase is 142. IMPRESSION AND PLAN: Awaiting for and plan to discharge him to [facility] for subacute rehab and also get him to eat little bit better. He had multiple issues including influenza. He is on 13 out of 28 days of vancomycin for systemic illness. Parag Brownlee DO MTDAnna
--- NOTE | 2017-09-17 15:38 | CP.PCM.PN ---
Subjective - Date & Time of Evaluation Date of Evaluation: 09/17/17 Time of Evaluation: 15:37 - Subjective Subjective: Follow up Nephrology Consultation: Assessment: stable Altered mental status, sepsis with UTI hx of prostate CA Hypertensive Chronic Kidney Disease (I12.9) ESRD on HD via permacath (TTS) Anemia (D64.9), HTN (I12.9) HIV on HAART, PVD s/p angioplasty s/p Rt AKA Influenza Plan plan for HD sunday as per TTS. nephrovite 1 tab/day aransep 100 mcg weekly for anemia 09/13/17. PRBC as needed not on VDRA, Ca on high side, work up Vit D (34) /PTH/SPEP/CLYDE/PTH-rp all neg. continue with binders for phos Hypertension control with meds as ordered. Patient on RAAS edyta as losartan ID following Dose meds/antibiotics for ESRD status. Avoid fleets enema/magnesium based laxatives. Avoid nephrotoxins/NSAIDs/ iodinated contrast (unless needed emergently) Further work up/management as per primary team. d/c planning ongoing. stable for d./c from renal perspective Thanks for allowing me to participate in care of your patient. Will follow patient with you. Please call if any Qs. d/w team Dr Yandel Arechiga Office: [phone] reason for consult: ESRD, HTN HPI: Pt is a 72 y/o M with hx of HIV on HAART, PVD s/p angioplasty, hypertension (10-15 years), ESRD on HD (via permacath) TTS @ [facility], left foot toe amputations, prostate CA initially admitted with AMS, fever and sepsis renal consult for ESRD, HTN management pt unable to provide hx due to AMS ROS: awake and oriented. doesn' feel well. denies CP/SOB Physical Examination: General Appearance: comfortable, in no acute respiratory distress, Vitals reviewed and noted as below Head; Atraumatic, normocephalic ENT: no ulcers no thrush. Tongue is midline dry. Oropharynx: no rash or ulcers. EYES: Pupils are equal, round and reactive to light accommodation. Eye muscles and extraocular movement intact. Sclera is anicteric. Neck; supple no lymphadenopathy, no thyromegaly or bruit Lungs: Normal respiratory rate/effort. Breath sounds bilateral clear Heart: Normal rate. s1s2 normal. No rub or gallop. Extremities: no edema. No varicose veins. s/p Rt AKA Neurological: Patient is alert oriented x 3 today follwo commands,. no focal deficit Skin: Warm and dry. Normal turgor. No rash. Palpitation: Normal elasticity for age Abdomen: Abdomen is soft. Bowel sounds +. There is mild lower abdominal tenderness, no guarding/rigidity no organomegaly Psych: limited insight MSK: Digits and nails normal, left foot toe amputations in past. Rt AKA. : kidney or bladder not palpable. Access: permacath and maturing left AVF Labs/imaging/EKG reviewed. Past medical history, past surgical history, family history, social history, allergy reviewed and noted as below Family hx: sister was on dialysis. Rest non-contributory Objective - Vital Signs/Intake and Output Vital Signs (last 24 hours): Temp Pulse Resp BP Pulse Ox 98.8 F 72 20 133/77 98 09/17/17 08:00 09/17/17 12:00 09/17/17 08:00 09/17/17 12:00 09/17/17 08:00 Intake and Output: 09/17/17 09/17/17 06:59 18:59 Intake Total 480 Output Total 402 200 Balance 78 -200 - Medications Medications: Current Medications Abacavir Sulfate (Ziagen) 300 mg PO BID [facility] Last Admin: 09/17/17 12:03 Dose: 300 mg Acetaminophen (Tylenol 325mg Tab) 650 mg PO Q4H PRN PRN Reason: Fever >100.4 F Last Admin: 09/15/17 09:01 Dose: 650 mg Acetaminophen (Tylenol 650 Mg Supp) 650 mg RC Q6H PRN PRN Reason: Fever >100.4 F Last Admin: 09/11/17 14:46 Dose: 650 mg Emollient Ointment (Vaseline Oint) 0 gm TOP QID PRN PRN Reason: FOR DRY SKIN Enoxaparin Sodium (Lovenox) 30 mg SC DAILY [facility] PRN Reason: Protocol Last Admin: 09/09/17 11:06 Dose: 30 mg Home Med (Home Med) 1 unit PO DAILY [facility] Last Admin: 09/16/17 11:28 Dose: 1 unit Insulin Human Regular (Humulin R Med) 0 units SC ACHS [facility] PRN Reason: Protocol Last Admin: 09/17/17 11:30 Dose: Not Given Lamivudine (Epivir) 50 mg PO DAILY [facility] Last Admin: 09/16/17 11:50 Dose: 50 mg Losartan Potassium (Cozaar) 100 mg PO QPM [facility] Last Admin: 09/16/17 17:36 Dose: 100 mg Metoprolol Tartrate (Lopressor) 100 mg PO Q12 [facility] Last Admin: 09/17/17 12:00 Dose: 100 mg Sevelamer HCl (Renagel) 800 mg PO TID [facility] Last Admin: 09/17/17 12:06 Dose: 800 mg Tamsulosin HCl (Flomax) 0.4 mg PO DAILY [facility] Last Admin: 09/17/17 12:03 Dose: 0.4 mg Vitamin B Complex/Vit C/Folic Acid (Nephro-Christel) 1 tab PO 0800 [facility] Last Admin: 09/17/17 12:03 Dose: 1 tab - Labs Labs: 09/15/17 06:30 09/17/17 09:45 PT 13.7 SECONDS (9.4-12.5) H 09/09/17 09:50 INR 1.19 (0.93-1.08) H 09/09/17 09:50 APTT 38.2 Seconds (25.1-36.5) H 08/30/17 19:07
--- NOTE | 2017-09-17 17:49 | CP.PCM.PN ---
Subjective - Date & Time of Evaluation Date of Evaluation: 09/17/17 Time of Evaluation: 12:50 - Subjective Subjective: Comfortable in bed, no fevers. Objective - Vital Signs/Intake and Output Vital Signs (last 24 hours): Temp Pulse Resp BP Pulse Ox 98.8 F 74 20 133/77 98 09/17/17 08:00 09/17/17 08:00 09/17/17 08:00 09/17/17 08:00 09/17/17 08:00 Intake and Output: 09/17/17 09/17/17 06:59 18:59 Intake Total 480 Output Total 402 Balance 78 - Medications Medications: Current Medications Abacavir Sulfate (Ziagen) 300 mg PO BID [facility] Last Admin: 09/16/17 17:36 Dose: 300 mg Acetaminophen (Tylenol 325mg Tab) 650 mg PO Q4H PRN PRN Reason: Fever >100.4 F Last Admin: 09/15/17 09:01 Dose: 650 mg Acetaminophen (Tylenol 650 Mg Supp) 650 mg RC Q6H PRN PRN Reason: Fever >100.4 F Last Admin: 09/11/17 14:46 Dose: 650 mg Emollient Ointment (Vaseline Oint) 0 gm TOP QID PRN PRN Reason: FOR DRY SKIN Enoxaparin Sodium (Lovenox) 30 mg SC DAILY [facility] PRN Reason: Protocol Last Admin: 09/09/17 11:06 Dose: 30 mg Home Med (Home Med) 1 unit PO DAILY [facility] Last Admin: 09/16/17 11:28 Dose: 1 unit Insulin Human Regular (Humulin R Med) 0 units SC ACHS [facility] PRN Reason: Protocol Last Admin: 09/17/17 08:41 Dose: Not Given Lamivudine (Epivir) 50 mg PO DAILY [facility] Last Admin: 09/16/17 11:50 Dose: 50 mg Losartan Potassium (Cozaar) 100 mg PO QPM [facility] Last Admin: 09/16/17 17:36 Dose: 100 mg Metoprolol Tartrate (Lopressor) 100 mg PO Q12 [facility] Last Admin: 09/17/17 00:28 Dose: 100 mg Sevelamer HCl (Renagel) 800 mg PO TID [facility] Last Admin: 09/16/17 17:35 Dose: 800 mg Tamsulosin HCl (Flomax) 0.4 mg PO DAILY [facility] Last Admin: 09/16/17 11:27 Dose: 0.4 mg Vitamin B Complex/Vit C/Folic Acid (Nephro-Christel) 1 tab PO 0800 [facility] Last Admin: 09/16/17 08:33 Dose: 1 tab - Labs Labs: 09/15/17 06:30 09/17/17 09:45 PT 13.7 SECONDS (9.4-12.5) H 09/09/17 09:50 INR 1.19 (0.93-1.08) H 09/09/17 09:50 APTT 38.2 Seconds (25.1-36.5) H 08/30/17 19:07 - Constitutional Appears: Chronically Ill - Head Exam Head Exam: NORMAL INSPECTION - ENT Exam ENT Exam: Mucous Membranes Moist - Neck Exam Neck Exam: absent: Meningismus - Respiratory Exam Respiratory Exam: Decreased Breath Sounds - Cardiovascular Exam Cardiovascular Exam: +S1, +S2 - GI/Abdominal Exam GI & Abdominal Exam: Soft. absent: Tenderness - Exam Additional comments: right AKA stump with dressings in place Assessment and Plan - Assessment and Plan (Free Text) Plan: Assessment severe PAD S/P angioplasty of the left tibial artery S/P right AKA UTI with MRSA and Strep viridans systemic viral illness with Influenza history of left foot 3rd digit chronic osteomyelitis S/P amputation and debridement right sided nephrolithiasis history of severe sepsis with acute on chronic renal failure probably due to pyelonephritis with E. coli bacteremia history of C. diff. associated diarrhea Charcot foot, left history of left 2nd toe dry gangrene Chronic renal failure on hemodialysis HTN prostate CA HIV (patient goes to the [place] with last CD4 count here at [facility] 03/2016 349 and virus load < 1.3 log) history of osteomyelitis of left first toe S/P amputation (2015) gout history of left foot ulcers Plan continue IV Vanco (intermittent) day 14 for 4 weeks; completed course of Tamiflu continue antiretroviral therapy (lamivudine, abacavir on formulary but dolutegravir should be taken by patient from his home supply) overall prognosis is poor
== END 2017-09-17 17:53 | DRG 239 ==
LOC: ED 17:00 → ERH 19:50 → 3RNO 23:28 → 5RSO 09-07 10:52
PROVIDERS: ADMIT Family Medicine; ATTEND Family Medicine
PROC: 5A1D70Z Performance of Urinary Filtration, Intermittent, Less than 6 Hours Per Day (ICD-10-PCS; 2017-09-01)
PROC: 5A1D70Z Performance of Urinary Filtration, Intermittent, Less than 6 Hours Per Day (ICD-10-PCS; 2017-09-04)
PROC: 5A1D70Z Performance of Urinary Filtration, Intermittent, Less than 6 Hours Per Day (ICD-10-PCS; 2017-09-06)
PROC: 5A1D70Z Performance of Urinary Filtration, Intermittent, Less than 6 Hours Per Day (ICD-10-PCS; 2017-09-07)
PROC: 5A1D70Z Performance of Urinary Filtration, Intermittent, Less than 6 Hours Per Day (ICD-10-PCS; 2017-09-08)
PROC: 30233N1 Transfusion of Nonautologous Red Blood Cells into Peripheral Vein, Percutaneous Approach (ICD-10-PCS; 2017-09-09)
PROC: 0Y6C0Z3 Detachment at Right Upper Leg, Low, Open Approach (ICD-10-PCS; principal; 2017-09-10 13:00)
PROC: 5A1D70Z Performance of Urinary Filtration, Intermittent, Less than 6 Hours Per Day (ICD-10-PCS; 2017-09-11)
PROC: 5A1D70Z Performance of Urinary Filtration, Intermittent, Less than 6 Hours Per Day (ICD-10-PCS; 2017-09-13)
PROC: 5A1D70Z Performance of Urinary Filtration, Intermittent, Less than 6 Hours Per Day (ICD-10-PCS; 2017-09-15)
DX: T80.211A Bloodstream infection due to central venous catheter, initial encounter (principal); A41.1 Sepsis due to other specified staphylococcus; G92 Toxic encephalopathy; N17.9 Acute kidney failure, unspecified; I12.0 Hypertensive chronic kidney disease with stage 5 chronic kidney disease or end stage renal disease; E10.22 Type 1 diabetes mellitus with diabetic chronic kidney disease; M86.671 Other chronic osteomyelitis, right ankle and foot; E10.52 Type 1 diabetes mellitus with diabetic peripheral angiopathy with gangrene; N18.6 End stage renal disease; R65.20 Severe sepsis without septic shock; N39.0 Urinary tract infection, site not specified; L02.511 Cutaneous abscess of right hand; L97.309 Non-pressure chronic ulcer of unspecified ankle with unspecified severity; N13.2 Hydronephrosis with renal and ureteral calculous obstruction; R64 Cachexia; B95.62 Methicillin resistant Staphylococcus aureus infection as the cause of diseases classified elsewhere; B96.89 Other specified bacterial agents as the cause of diseases classified elsewhere; Z85.46 Personal history of malignant neoplasm of prostate; E10.69 Type 1 diabetes mellitus with other specified complication; E10.622 Type 1 diabetes mellitus with other skin ulcer; E10.621 Type 1 diabetes mellitus with foot ulcer; E10.610 Type 1 diabetes mellitus with diabetic neuropathic arthropathy; E87.6 Hypokalemia; F03.90 Unspecified dementia, unspecified severity, without behavioral disturbance, psychotic disturbance, mood disturbance, and anxiety; D64.9 Anemia, unspecified; J11.1 Influenza due to unidentified influenza virus with other respiratory manifestations; J44.9 Chronic obstructive pulmonary disease, unspecified; K21.9 Gastro-esophageal reflux disease without esophagitis; K52.9 Noninfective gastroenteritis and colitis, unspecified; K74.60 Unspecified cirrhosis of liver; L97.519 Non-pressure chronic ulcer of other part of right foot with unspecified severity; M10.9 Gout, unspecified; M14.679 Charcot's joint, unspecified ankle and foot; R09.02 Hypoxemia; Z78.9 Other specified health status; Z79.899 Other long term (current) drug therapy; Z82.49 Family history of ischemic heart disease and other diseases of the circulatory system; Z87.442 Personal history of urinary calculi; Z89.412 Acquired absence of left great toe; Z90.79 Acquired absence of other genital organ(s); Z99.2 Dependence on renal dialysis; Z21 Asymptomatic human immunodeficiency virus [HIV] infection status; Z91.013 Allergy to seafood; Z91.018 Allergy to other foods

== ENCOUNTER 2017-11-05 16:26 | Inpatient (IN) | payer MEDICARE, OTHER ==
--- NOTE | 2017-11-05 17:09 | ED PDOC ---
Arrival/HPI - General Historian: Patient, Family - General Chief Complaint: Male Genitourinary Time Seen by Provider: 11/05/17 16:44 - History of Present Illness Narrative History of Present Illness (Text): 11/05/17 17:03 Patient is a 72M with a past medical history of HIV and ESRD on dialysis who comes in with a CC of cloudy urine and urinary discharge. Patient states he has been having this problem for 3 weeks. He had a visitng nurse come to the house today. After she was made aware of the color of the urine as well as suprapubic tenderness she called his primary doctor, Dr. Naty Brownlee. He told the patient to come to the ED. He has not had any fevers or chills. Denies nausea or vomiting (Yuan Guerin) Past Medical History - Infectious Disease Hx of Infectious Diseases: None - Tetanus Immunization Tetanus Immunization: Up to Date - Cardiac Hx Cardiac Disorders: Yes Hx Hypertension: Yes - Pulmonary Hx Chronic Obstructive Pulmonary Disease (COPD): Yes - Neurological Hx Vertigo: Yes - HEENT Hx HEENT Disorder: No - Renal Hx Renal Failure: Yes - Endocrine/Metabolic Hx Diabetes Mellitus Type 2: Yes - Hematological/Oncological Hx Blood Transfusions: Yes Hx Blood Transfusion Reaction: No - Integumentary Hx Dermatological Disorder: Yes Hx Cellulitis: Yes Other/Comment: dry gangrene and osteomyelitis L foot - Musculoskeletal/Rheumatological Hx Musculoskeletal Disorders: Yes - Gastrointestinal Hx Gastroesophageal Reflux: Yes - Genitourinary/Gynecological Hx Genitourinary Disorders: Yes Hx Prostate Cancer: Yes - Psychiatric Hx Substance Use: No - Surgical History Hx Amputation: Yes (L toes 1-3) Hx Angioplasty: Yes (L tibial artery ) Other/Comment: prostatectomy, incision and drainage of right hand abscess - Anesthesia Hx Anesthesia Reactions: No Hx Malignant Hyperthermia: No Family/Social History Family/Social History: Unknown Family HX Smoking Status: Never Smoked Hx Alcohol Use: Yes Hx Substance Use: No Allergies/Home Meds Allergies/Adverse Reactions: Allergies banana Allergy (Verified 08/08/17 04:43) SWELLING shrimp Allergy (Verified 08/08/17 04:43) SWELLING Home Medications: Home Meds Medication Instructions Recorded Confirmed Albuterol/Ipratropium [Duoneb 3 1 inh IN Q2 PRN 08/30/17 08/30/17 mg/0.5 mg (3 ml) UD] Ferrous Gluconate [Ferrous 324 mg PO TID 08/30/17 08/30/17 Gluconate] Folic Acid/Vit B Complex and C 0.8 mg PO DAILY 08/30/17 08/30/17 [Nephro-Christel Tablet] Lamivudine [Epivir] 150 mg PO DAILY 08/30/17 08/30/17 Losartan Potassium [Cozaar] 100 mg PO DAILY 08/30/17 08/30/17 Mupirocin 2% Ointment [Bactroban 1 appful HS 08/30/17 08/30/17 Ointment] Ondansetron HCl [Zofran] 4 mg PO Q4 PRN 08/30/17 08/30/17 Sevelamer [Renagel] 1,600 mg PO TID 08/30/17 08/30/17 ceFAZolin [Ancef] 1 gm IV DAILY 08/30/17 08/30/17 Review of Systems - Review of Systems Constitutional: Normal Eyes: Normal ENT: Normal Respiratory: Normal Cardiovascular: Normal Gastrointestinal: Abdominal Pain (suprapubic) Genitourinary Male: Urinary Output Changes (cloudy discharge). absent: Dysuria , Frequency, Hematuria Musculoskeletal: Normal Skin: Normal Neurological: Normal Endocrine: Normal Hemo/Lymphatic: Normal Psychiatric: Normal Physical Exam Temperature: Afebrile Blood Pressure: Normal Pulse: Regular Respiratory Rate: Normal Appearance: Positive for: Well-Appearing, Non-Toxic, Comfortable Pain Distress: None Mental Status: Positive for: Alert and Oriented X 3 - Systems Exam Head: Present: Atraumatic, Normocephalic Pupils: Present: PERRL Extroacular Muscles: Present: EOMI Conjunctiva: Present: Normal Mouth: Present: Moist Mucous Membranes Neck: Present: Normal Range of Motion Respiratory/Chest: Present: Clear to Auscultation, Good Air Exchange, Other (R. SC permacath. No evidence of infection). No: Respiratory Distress, Accessory Muscle Use Cardiovascular: Present: Regular Rate and Rhythm, Normal S1, S2. No: Murmurs Abdomen: Present: Tenderness (suprapubic tenderness), Normal Bowel Sounds. No: Distention, Peritoneal Signs Genitourinary Male: Present: Normal External Genitalia. No: Lesions, Penile Discharge, Testicle Tenderness, Penile Swelling, Masses, Erythema, Hernias, Testicle Swelling Upper Extremity: Present: Normal Inspection. No: Cyanosis, Edema Lower Extremity: Present: Other (L. AKA) Neurological: Present: GCS=15, CN II-XII Intact, Speech Normal Skin: Present: Warm, Dry, Normal Color. No: Rashes Psychiatric: Present: Alert, Oriented x 3 Vital Signs Temp Pulse Resp BP Pulse Ox 11/05/17 17:56 75 18 131/69 98 11/05/17 16:48 98.0 F 79 18 133/62 98 Medical Decision Making ED Course and Treatment: 11/05/17 18:06 In agreement with resident note, which includes further HPI details. Patient was seen and evaluated with resident, came up with plan and treatment together. Patient is a 72 year old male complaining of 3 week duration of suprapubic pain and urinary symptoms. PE: No abdominal, suprapubic, penile, or testicle tenderness Differential Diagnosis included but are not limited to: UTI Progress Notes: EKG: Ordered, reviewed, and independently interpreted the EKG. Rate : 92 BPM Rhythm : NSR Interpretation : No ST-segment elevations or depressions, no T-wave inversions, normal intervals. Comparison : No previous EKG for comparison. (Matthew Tyson) 11/05/17 17:16 Patient complaining of 3 weeks of cloudy urine and suprapubic tenderness. History of recurrent UTI UA/UC,CBC CMP A: UTI 11/05/17 18:52 Potassium elevated @ 5.8, Given kaexylate Elevated WBC No urine produced, patient only periodically produces urine Will empirically treat for UTI with Rocephin Call placed to Dr. Brownlee 11/05/17 19:[address] Brownlee. Agrees with our plan to admit the patient (Yuan Guerin) - Lab Interpretations Lab Results: 11/05/17 17:25 11/05/17 17:25 Lab Results 11/05/17 17:25: Sodium 133, Potassium 5.2 H, Chloride 92 L, Carbon Dioxide 31, Anion Gap 14, BUN 45 H, Creatinine 6.7 H, Est GFR ( Amer) 10, Est GFR ( Non-Af Amer) 8, Random Glucose 109, Calcium 9.4, Total Bilirubin 0.4, AST 43, ALT 21, Alkaline Phosphatase 91, Total Protein 7.4, Albumin 3.2, Globulin 4.2, Albumin/Globulin Ratio 0.8 L 11/05/17 17:25: WBC 14.2 H D, RBC 3.14 L, Hgb 9.7 L, Hct 30.5 L, MCV 97.1 D, MCH 30.9, MCHC 31.8, RDW 16.5 H, Plt Count 356, MPV 9.3, Gran % 62.1, Lymph % ( Auto) 27.3, [place] % (Auto) 10.2 H, Eos % (Auto) 0.3 L, Baso % (Auto) 0.1, Gran # 8.84 H, Lymph # (Auto) 3.9 H, [place] # (Auto) 1.5 H, Eos # (Auto) 0.0, Baso # ( Auto) 0.02 - RAD Interpretation Radiology Orders: 11/05/17 17:48 CXR [CHEST PORTABLE] [RAD] Stat - Medication Orders Current Medication Orders: Ceftriaxone Sodium (Rocephin 1 Gram Ivpb) 1 gm in 100 mls @ 100 mls/hr IVPB STAT STA PRN Reason: Protocol Stop: 11/05/17 20:17 Last Admin: 11/05/17 19:28 Dose: 100 mls/hr eMAR Start Stop Document 11/05/17 19:28 LA (Rec: 11/05/17 19:29 LA [id number]) Intravenous Solution Start Date 11/05/17 Start Time 19:29 Discontinued Medications Acetaminophen (Tylenol 325mg Tab) 650 mg PO STAT STA Stop: 11/05/17 19:11 Last Admin: 11/05/17 19:26 Dose: 650 mg MAR Pain/Vitals Document 11/05/17 19:26 LA (Rec: 11/05/17 19:28 LA [id number]) Pain Reassessment Is This A Pain ReAssessment? No Sleep Is patient sleeping during reassessment? No Presence of Pain Presence of Pain Yes Pain Scale Used Pain Scale Used Numeric Location Intensity 7 Scale Used Numeric Sodium Polystyrene Sulfonate (Kayexalate Susp) 30 gm PO STAT STA Stop: 11/05/17 18:30 Last Admin: 11/05/17 18:44 Dose: 30 gm - PA / INFORMATION TECH / Resident Statement TIARRA has reviewed & agrees with the documentation as recorded. /DO has examined the patient and agrees with the treatment plan. Disposition/Present on Arrival - Present on Arrival Any Indicators Present on Arrival: Yes History of DVT/PE: No History of Uncontrolled Diabetes: Yes Urinary Catheter: Yes History Surgical Site Infection Following: None - Disposition Have Diagnosis and Disposition been Completed?: Yes Disposition Time: 19:55 Patient Plan: Admission - Disposition Diagnosis: HIV (human immunodeficiency virus infection), UTI (urinary tract infection) Disposition: HOSPITALIZED Patient Problems: Current Active Problems Problem Status Onset UTI (urinary tract infection) Acute HIV (human immunodeficiency virus infection) Chronic Condition: GUARDED Discharge Instructions (ExitCare): Human Immunodeficiency Virus and Acquired Immune Deficiency Syndrome (ED) Referrals: Parag Brownlee DO [Primary Care Provider] - Follow up with primary Forms: [facility] (Albanian)
[2017-11-05 17:35] LABS: BASO # 0.02 K/mm3 (0.0-2.0); BASO % 0.1 % (0.0-3.0); EOS % 0.3 % (1.5-5.0); GRAN # 8.84 (1.4-6.5); GRAN % 62.1 % (50.0-68.0); HEMOGLOBIN 9.7 g/dL (14.0-18.0); LYMPH # 3.9 (1.2-3.4); LYMPH % 27.3 % (22.0-35.0); MEAN CELL VOLUME 97.1 fl (80.0-105.0); MEAN CORPUSCULAR HEMOGLOBIN 30.9 pg (25.0-35.0); MEAN CORPUSCULAR HGB CONC 31.8 g/dl (31.0-37.0); MEAN PLATELET VOLUME 9.3 fl (7.0-11.0); MONO # 1.5 (0.1-0.6); MONO % 10.2 % (1.0-6.0); RBC 3.14 10^6/uL (3.5-6.1); RED CELL DISTRIBUTION WIDTH 16.5 % (11.5-14.5); WHITE BLOOD COUNT 14.2 10^3/ul (4.5-11.0)
[2017-11-05 17:44] LABS: ALB/GLOB RATIO 0.8 (1.1-1.8); ALBUMIN 3.2 g/dL (3.0-4.8); CALCIUM 9.4 mg/dL (8.4-10.5)
[2017-11-05] MEDS ORDERED: Sod Polystyrene Sulf 15 gm/60 ml Susp PO STA (18:29)
--- NOTE | 2017-11-05 18:41 | RAD ---
HISTORY: esrd pt admitted COMPARISON: 09/11/2017 FINDINGS: LUNGS: No active pulmonary disease. PLEURA: No significant pleural effusion identified, no pneumothorax apparent. CARDIOVASCULAR: No radiographic findings to suggest acute or significant cardiovascular disease. Venous access catheter in stable, satisfactory position. OSSEOUS STRUCTURES: No significant abnormalities. VISUALIZED UPPER ABDOMEN: Normal. OTHER FINDINGS: None. IMPRESSION: No active disease. No significant interval change compared to the prior examination(s).
[2017-11-05] MEDS ORDERED: Sodium Chloride 0.9% 500 ML IV SCH (18:45)
[2017-11-05] MEDS ORDERED: cefTRIAXone 1 gm 1 GM/100 ML BAG IVPB STA (19:18)
[2017-11-06 09:17] LABS: ALB/GLOB RATIO 0.8 (1.1-1.8); ALBUMIN 3.3 g/dL (3.0-4.8); CALCIUM 9.3 mg/dL (8.4-10.5)
[2017-11-06] MEDS ORDERED: cefTRIAXone 1 gm 1 GM/100 ML BAG IVPB SCH (10:00)
--- NOTE | 2017-11-06 10:18 | CARD ---
APPROVED REPORT EKG Measurement Heart [id number] <Conclusion> Normal sinus rhythm Peak P Wave suggestive of Pulmonary Disease.
[2017-11-06] MEDS ORDERED: Darbepoetin Alfa 40 mcg/ml Inj IVP ONE (10:34)
[2017-11-06] MEDS: Enoxaparin 30 mg Syringe SC SCH (10:40)
[2017-11-06] MEDS: Multivitamin Vitamin B Complex (Nephro-Vite) Tab PO SCH (10:40)
--- NOTE | 2017-11-06 12:24 | CP.PCM.CON ---
History of Present Illness - History of Present Illness History of Present Illness: Nephrology Consultation Note: Assessment: stable UTI, Hyperkalemia hx of prostate CA Hypertensive Chronic Kidney Disease (I12.9) ESRD on HD via permacath (TTS) Anemia (D64.9), HTN (I12.9) HIV on HAART, PVD s/p angioplasty s/p Rt AKA Plan plan for HD sunday as per TTS. nephrovite 1 tab/day aransep 40 mcg weekly for anemia 11/06/17. PRBC as needed . last Hb 9.7 continue with home dose of phosphorus binders as ordered Hypertension control with meds as ordered. Patient on RAAS edyta as losartan. also on norvasc and lopressor ID following will add topical nystatin Dose meds/antibiotics for ESRD status. Avoid fleets enema/magnesium based laxatives. Avoid nephrotoxins/NSAIDs/ iodinated contrast (unless needed emergently) Further work up/management as per primary team. Thanks for allowing me to participate in care of your patient. Will follow patient with you. Please call if any Qs. d/w team Dr Yandel Arechiga Office: [phone] CC: groin pain reason for consult: ESRD, HTN HPI: Pt is a 72 y/o M with hx of HIV on HAART, PVD s/p angioplasty, Rt AKA, hypertension (10-15 years), ESRD on HD (via permacath) TTS @ [facility] [place], left foot toe amputations, prostate CA presented with groin pain and cloudy urine. being managed for UTI renal consult for ESRD, HTN management pt doesn't feel well. says everything is bothering him as lower ext pain, groin pain. says alcala catheter was removed 2 weeks ago ROS: denies CP/SOB. all other neg except as in HPI Physical Examination: General Appearance: uncomfortable, in no acute respiratory distress, facial muscles wasted Vitals reviewed and noted as below Head; Atraumatic, normocephalic ENT: no ulcers no thrush. Tongue is midline dry. Oropharynx: no rash or ulcers. EYES: Pupils are equal, round and reactive to light accommodation. Eye muscles and extraocular movement intact. Sclera is anicteric. Neck; supple no lymphadenopathy, no thyromegaly or bruit Lungs: Normal respiratory rate/effort. Breath sounds bilateral clear Heart: Normal rate. s1s2 normal. No rub or gallop. Extremities: no edema. No varicose veins. s/p Rt AKA Neurological: Patient is alert oriented x 3 follow commands,. no focal deficit Skin: Warm and dry. Normal turgor. Palpitation: Normal elasticity for age. has inguinal erythematous rash Abdomen: Abdomen is soft. Bowel sounds +. There is no abdominal tenderness, no guarding/rigidity no organomegaly Psych: limited insight. flat affect MSK: Digits and nails normal, left foot toe amputations in past. Rt AKA. : kidney or bladder not palpable. no inguinal hernia Access: permacath and maturing left AVF Labs/imaging/EKG reviewed. Past medical history, past surgical history, family history, social history, allergy reviewed and noted as below Family hx: sister was on dialysis. Rest non-contributory Past Patient History - Infectious Disease Hx of Infectious Diseases: None - Tetanus Immunizations Tetanus Immunization: Up to Date - Past Medical History & Family History Past Medical History?: Yes - Past Social History Smoking Status: Never Smoked - CARDIAC Hx Cardiac Disorders: Yes Hx Hypertension: Yes - PULMONARY Hx Chronic Obstructive Pulmonary Disease (COPD): Yes - NEUROLOGICAL Hx Vertigo: Yes - HEENT Hx HEENT Problems: No - RENAL Hx Chronic Kidney Disease: Yes - ENDOCRINE/METABOLIC Hx Diabetes Mellitus Type 2: Yes - HEMATOLOGICAL/ONCOLOGICAL Hx Blood Transfusions: Yes Hx Blood Transfusion Reaction: No - INTEGUMENTARY Hx Dermatological Problems: Yes Hx Cellulitis: Yes Other/Comment: dry gangrene and osteomyelitis L foot - MUSCULOSKELETAL/RHEUMATOLOGICAL Hx Falls: Yes - GASTROINTESTINAL Hx Gastroesophageal Reflux: Yes - GENITOURINARY/GYNECOLOGICAL Hx Genitourinary Disorders: Yes Hx Prostate Cancer: Yes - PSYCHIATRIC Hx Substance Use: No - SURGICAL HISTORY Hx Amputation: Yes (L toes 1-3) Hx Angioplasty: Yes (L tibial artery ) Other/Comment: prostatectomy, incision and drainage of right hand abscess - ANESTHESIA Hx Anesthesia Reactions: No Hx Malignant Hyperthermia: No Meds Allergies/Adverse Reactions: Allergies Allergy/AdvReac Type Severity Reaction Status Date / Time banana Allergy SWELLING Verified 08/08/17 04:43 shrimp Allergy SWELLING Verified 08/08/17 04:43 - Medications Medications: Current Medications Abacavir Sulfate (Ziagen) 600 mg PO DAILY [facility] PRN Reason: Protocol Acetaminophen (Tylenol 325mg Tab) 650 mg PO Q4H PRN PRN Reason: Fever >100.4 F Allopurinol (Zyloprim) 300 mg PO DAILY [facility] Amlodipine Besylate (Norvasc) 10 mg PO DAILY [facility] Enoxaparin Sodium (Lovenox) 30 mg SC DAILY [facility] PRN Reason: Protocol Ferrous Gluconate (Fergon) 324 mg PO TID [facility] Heparin Sodium (Porcine) (Heparin) 2,000 units IVP TTS [facility] PRN Reason: Protocol Ceftriaxone Sodium (Rocephin 1 Gram Ivpb) 1 gm in 100 mls @ 100 mls/hr IVPB DAILY [facility] PRN Reason: Protocol Meropenem 500 mg/ Sodium (Chloride) 50 mls @ 100 mls/hr IVPB Q24H [facility] PRN Reason: Protocol Stop: 11/13/17 11:16 Lamivudine (Epivir) 150 mg PO TTS [facility] PRN Reason: Protocol Losartan Potassium (Cozaar) 100 mg PO DAILY [facility] Metoprolol Tartrate (Lopressor) 100 mg PO Q12 [facility] Non-Formulary Medication (Dolutegravir Sodium [Tivicay]) 50 mg PO DAILY [facility] Ondansetron HCl (Zofran Inj) 4 mg IVP Q4H PRN PRN Reason: Nausea/Vomiting Last Admin: 11/06/17 04:53 Dose: 4 mg Ondansetron HCl (Zofran Tab) 4 mg PO Q4 PRN PRN Reason: Nausea/Vomiting Pantoprazole Sodium (Protonix Ec Tab) 40 mg PO 0600 [facility] Sevelamer HCl (Renagel) 1,600 mg PO TID [facility] Tramadol HCl (Ultram) 50 mg PO Q8H PRN PRN Reason: Pain, moderate (4-7) Vitamin B Complex/Vit C/Folic Acid (Nephro-Christel) 1 tab PO DAILY [facility] Results - Vital Signs Recent Vital Signs: Last Vital Signs Temp 100.4 F H 11/06/17 07:30 Pulse 109 H 11/06/17 07:30 Resp 20 11/06/17 07:30 BP 120/67 11/06/17 07:30 Pulse Ox 97 11/06/17 07:30 - Labs Result Diagrams: 11/05/17 17:25 11/06/17 08:30 Labs: Laboratory Results - last 24 hr 11/06/17 08:30 Sodium 133 Potassium 5.4 H Chloride 92 L Carbon Dioxide 30 Anion Gap 17 BUN 47 H Creatinine 8.2 H* D Est GFR ( Amer) 8 Est GFR (Non-Af Amer) 6 Random Glucose 100 Calcium 9.3 Total Bilirubin 0.4 AST 42 ALT 33 Alkaline Phosphatase 97 Total Protein 7.7 Albumin 3.3 Globulin 4.4 Albumin/Globulin Ratio 0.8 L
[2017-11-06] MEDS: Nystatin 100,000 Units/gm Topical Pow(15 gm) TOP SCH (12:35)
[2017-11-06 12:52] LABS: BASO # 0.03 K/mm3 (0.0-2.0); BASO % 0.2 % (0.0-3.0); EOS # 0.1 (0.0-0.7); EOS % 0.6 % (1.5-5.0); GRAN # 13.1 (1.4-6.5); GRAN % 73.2 % (50.0-68.0); LYMPH # 3.1 (1.2-3.4); LYMPH % 17.6 % (22.0-35.0); MEAN CELL VOLUME 96.6 fl (80.0-105.0); MEAN CORPUSCULAR HEMOGLOBIN 30.7 pg (25.0-35.0); MEAN CORPUSCULAR HGB CONC 31.7 g/dl (31.0-37.0); MEAN PLATELET VOLUME 9.4 fl (7.0-11.0); MONO # 1.5 (0.1-0.6); MONO % 8.4 % (1.0-6.0); RBC 3.26 10^6/uL (3.5-6.1); RED CELL DISTRIBUTION WIDTH 16.6 % (11.5-14.5); WHITE BLOOD COUNT 17.9 10^3/ul (4.5-11.0)
[2017-11-06 13:10] LABS: BASO # 0.03 K/mm3 (0.0-2.0); BASO % 0.2 % (0.0-3.0); EOS # 0.1 (0.0-0.7); EOS % 0.4 % (1.5-5.0); GRAN # 13.41 (1.4-6.5); GRAN % 82.8 % (50.0-68.0); HEMOGLOBIN 9.7 g/dL (14.0-18.0); LYMPH # 2.1 (1.2-3.4); MEAN CELL VOLUME 94.6 fl (80.0-105.0); MEAN CORPUSCULAR HEMOGLOBIN 30.9 pg (25.0-35.0); MEAN CORPUSCULAR HGB CONC 32.7 g/dl (31.0-37.0); MEAN PLATELET VOLUME 9.8 fl (7.0-11.0); MONO # 0.6 (0.1-0.6); MONO % 3.6 % (1.0-6.0); RBC 3.14 10^6/uL (3.5-6.1); RED CELL DISTRIBUTION WIDTH 16.6 % (11.5-14.5); WHITE BLOOD COUNT 16.2 10^3/ul (4.5-11.0)
[2017-11-06 13:35] LABS: ALB/GLOB RATIO 0.8 (1.1-1.8); ALBUMIN 3.2 g/dL (3.0-4.8)
[2017-11-06] MEDS: Non Formulary Medication (Dolutegravir Sodium [Tivicay] 50 MG) PO SCH (15:37)
--- NOTE | 2017-11-06 16:39 | CP.PCM.CON ---
History of Present Illness - History of Present Illness History of Present Illness: 72 year old male with PMH of HTN, prostate CA, [facility] CD4 count on our records 03/2016 is 349 with VL < 1.3 log), history of osteomyelitis of left first toe S/P amputation (2015), gout, history of left foot ulcers, history of pyelonephritis with E. coli bacteremia, S/P left foot 3rd digit chronic osteomyelitis S/P amputation and debridement, severe PAD S/P angioplasty of the left tibial artery [place] [facility] [place] of cloudy urine and apparent note of pus in the urine. The patient has been complaining of some suprapubic tenderness. He has no fever, no chills, no nausea or vomiting , no abdominal pain, no diarrhea, no headache. He is found to have low grade fever on this admission. Infectious Diseases consult is requested to further evaluate and manage. Review of Systems - Review of Systems All systems: reviewed and no additional remarkable complaints except (as per HPI ) Past Patient History - Infectious Disease Hx of Infectious Diseases: None - Tetanus Immunizations Tetanus Immunization: Up to Date - Past Medical History & Family History Past Medical History?: Yes - Past Social History Smoking Status: Never Smoked - CARDIAC Hx Cardiac Disorders: Yes Hx Hypertension: Yes - PULMONARY Hx Chronic Obstructive Pulmonary Disease (COPD): Yes - NEUROLOGICAL Hx Vertigo: Yes - HEENT Hx HEENT Problems: No - RENAL Hx Chronic Kidney Disease: Yes - ENDOCRINE/METABOLIC Hx Diabetes Mellitus Type 2: Yes - HEMATOLOGICAL/ONCOLOGICAL Hx Blood Transfusions: Yes Hx Blood Transfusion Reaction: No - INTEGUMENTARY Hx Dermatological Problems: Yes Hx Cellulitis: Yes Other/Comment: dry gangrene and osteomyelitis L foot - MUSCULOSKELETAL/RHEUMATOLOGICAL Hx Falls: Yes - GASTROINTESTINAL Hx Gastroesophageal Reflux: Yes - GENITOURINARY/GYNECOLOGICAL Hx Genitourinary Disorders: Yes Hx Prostate Cancer: Yes - PSYCHIATRIC Hx Substance Use: No - SURGICAL HISTORY Hx Amputation: Yes (L toes 1-3) Hx Angioplasty: Yes (L tibial artery ) Other/Comment: prostatectomy, incision and drainage of right hand abscess - ANESTHESIA Hx Anesthesia Reactions: No Hx Malignant Hyperthermia: No Meds Allergies/Adverse Reactions: Allergies Allergy/AdvReac Type Severity Reaction Status Date / Time banana Allergy SWELLING Verified 08/08/17 04:43 shrimp Allergy SWELLING Verified 08/08/17 04:43 - Medications Medications: Current Medications Acetaminophen (Tylenol 325mg Tab) 650 mg PO Q4H PRN PRN Reason: Fever >100.4 F Allopurinol (Zyloprim) 300 mg PO DAILY [facility] Amlodipine Besylate (Norvasc) 10 mg PO DAILY [facility] Enoxaparin Sodium (Lovenox) 30 mg SC DAILY [facility] PRN Reason: Protocol Ferrous Gluconate (Fergon) 324 mg PO TID [facility] Heparin Sodium (Porcine) (Heparin) 2,000 units IVP TTS [facility] PRN Reason: Protocol Ceftriaxone Sodium (Rocephin 1 Gram Ivpb) 1 gm in 100 mls @ 100 mls/hr IVPB DAILY [facility] PRN Reason: Protocol Losartan Potassium (Cozaar) 100 mg PO DAILY [facility] Metoprolol Tartrate (Lopressor) 100 mg PO Q12 [facility] Non-Formulary Medication (Dolutegravir Sodium [Tivicay]) 50 mg PO DAILY [facility] Ondansetron HCl (Zofran Inj) 4 mg IVP Q4H PRN PRN Reason: Nausea/Vomiting Last Admin: 11/06/17 04:53 Dose: 4 mg Ondansetron HCl (Zofran Tab) 4 mg PO Q4 PRN PRN Reason: Nausea/Vomiting Pantoprazole Sodium (Protonix Ec Tab) 40 mg PO 0600 [facility] Sevelamer HCl (Renagel) 1,600 mg PO TID [facility] Tramadol HCl (Ultram) 50 mg PO Q8H PRN PRN Reason: Pain, moderate (4-7) Vitamin B Complex/Vit C/Folic Acid (Nephro-Christel) 1 tab PO DAILY [facility] Physical Exam - Constitutional Appears: Chronically Ill - Head Exam Head Exam: NORMAL INSPECTION - Neck Exam Neck exam: Negative for: Meningismus - Respiratory Exam Respiratory Exam: Decreased Breath Sounds - Cardiovascular Exam Cardiovascular Exam: +S1, +S2 - GI/Abdominal Exam GI & Abdominal Exam: Soft. absent: Tenderness Results - Vital Signs Recent Vital Signs: Last Vital Signs Temp 100.4 F H 11/06/17 07:30 Pulse 109 H 11/06/17 07:30 Resp 20 11/06/17 07:30 BP 120/67 11/06/17 07:30 Pulse Ox 97 11/06/17 07:30 - Labs Result Diagrams: 11/06/17 13:00 11/06/17 13:00 Labs: Laboratory Results - last 24 hr 11/06/17 08:30 Sodium 133 Potassium 5.4 H Chloride 92 L Carbon Dioxide 30 Anion Gap 17 BUN 47 H Creatinine 8.2 H* D Est GFR ( Amer) 8 Est GFR (Non-Af Amer) 6 Random Glucose 100 Calcium 9.3 Total Bilirubin 0.4 AST 42 ALT 33 Alkaline Phosphatase 97 Total Protein 7.7 Albumin 3.3 Globulin 4.4 Albumin/Globulin Ratio 0.8 L Assessment & Plan - Assessment and Plan (Free Text) Plan: Assessment consider UTI severe PAD S/P angioplasty of the left tibial artery S/P right AKA UTI with MRSA and Strep viridans systemic viral illness with Influenza history of left foot 3rd digit chronic osteomyelitis S/P amputation and debridement right sided nephrolithiasis history of severe sepsis with acute on chronic renal failure probably due to pyelonephritis with E. coli bacteremia history of C. diff. associated diarrhea Charcot foot, left history of left 2nd toe dry gangrene Chronic renal failure on hemodialysis HTN prostate CA HIV ([facility] [place] [facility] [place] 349 and virus load < 1.3 log) history of osteomyelitis of left first toe S/P amputation (2015) gout history of left foot ulcers Plan started Merrem pending urine and blood cx; will check PSA levels as well continue antiretroviral therapy (lamivudine, abacavir on formulary but dolutegravir should be taken by patient from his home supply) overall prognosis is poor
[2017-11-06] MEDS: Meropenem 500 MG in Sodium Chloride 0.9% 50 ML IVPB SCH (18:34)
[2017-11-06] MEDS ORDERED: cefTRIAXone 1 gm 1 GM/100 ML BAG IVPB ONE (18:39)
[2017-11-07] MEDS ORDERED: Pantoprazole 40 mg EC Tab PO SCH (06:00)
[2017-11-07 07:39] LABS: HEMOGLOBIN 10.2 g/dL (14.0-18.0); MEAN CELL VOLUME 96.4 fl (80.0-105.0); MEAN CORPUSCULAR HGB CONC 32.2 g/dl (31.0-37.0); MEAN PLATELET VOLUME 9.9 fl (7.0-11.0); RBC 3.29 10^6/uL (3.5-6.1); RED CELL DISTRIBUTION WIDTH 16.7 % (11.5-14.5); WHITE BLOOD COUNT 19.9 10^3/ul (4.5-11.0)
[2017-11-07 08:10] LABS: ALB/GLOB RATIO 0.7 (1.1-1.8); ALBUMIN 3.2 g/dL (3.0-4.8); CALCIUM 9.5 mg/dL (8.4-10.5)
--- NOTE | 2017-11-07 08:31 | HP ---
HISTORY OF PRESENT ILLNESS: I got a call yesterday from the nurse who visited Raza Sagastume with pus coming out of his urine and he was not feeling well. He was also on the floor for a while. I sent him to the emergency room. This is a 72-year-old -[place] man who I do have house calls on with HIV, end-stage renal disease on hemodialysis. He is having a hard time now with urine and suprapubic tenderness. Now, there is pus coming out of his penis. He has hypertension, COPD, vertigo, renal failure without dialysis, diabetes, transfusions in the past, cellulitis, dry gangrene, and osteomyelitis of the left foot with amputation. He has had reflux, prostrate cancer, amputation of the left toes 1 and 3, left tibial artery incision and drainage of the right hand abscess. FAMILY HISTORY: Hypertension in the family. SOCIAL HISTORY: Never smoked. Drinks alcohol. No drugs. ALLERGIES: HE HAS ALLERGIES TO BANANA AND SHRIMP. MEDICATIONS: He is on DuoNebs, iron complex, vitamin complex, Epivir, Cozaar, Bactroban cream, Zofran, Renagel, and he was on Ancef. REVIEW OF SYSTEMS: He is not feeling well with abdominal pain and suprapubic pain. I will call in Urology for evaluation. He has no vision changes or hearing changes. No sore throat. No chest pain. No shortness of breath. No abdominal pain except for lower abdominal pain and suprapubic pain. No guarding. No rebound. No CVA tenderness. No nausea, vomiting, constipation, or diarrhea. He is having pus coming out of his urine. Skin for the most part is intact. PHYSICAL EXAMINATION: GENERAL: He is well appearing, nontoxic, comfortable VITAL SIGNS: He has a 98 temperature, 75 pulse, 18 respiratory rate, 131/69 blood pressure, 98% O2 sat on room air. HEENT: His head is atraumatic, normocephalic. His extraocular muscles are intact. Pupils are equal and reactive to light. Throat is moist. NECK: Supple. HEART: Regular rate. Normal S1, S2. LUNGS: Decreased breath sounds, but clear to auscultation. ABDOMEN: Soft. Positive bowel sounds. Marked tenderness and suprapubic tenderness. No guarding. No rebound. EXTREMITIES: He has a left AKA for all those gangrenes and infections in the toes, in the feet of left foot. NEUROLOGIC: GCS is 15. Cranial nerves II through XII grossly intact. Speech is normal. SKIN: Warm and dry. PSYCHIATRIC: Alert and oriented x3. LYMPH NODES: Thyroid midline. No palpable appreciable lymphadenopathy. LABORATORY DATA: He had multiple tests. He has a 133 sodium, potassium 5.2. BUN 45, creatinine 6.7. GFR is 8. Sugar is 109. Calcium is 9.4. Total bilirubin is 0.4, AST is 43, ALT is 21, alkaline phosphatase 91, total protein 7.4. White count is 14.2 when he came in, 9.7 hemoglobin, 30.5 hematocrit with 56 platelets. He will have consults with Infectious Disease and Renal. I will call in Urology to evaluate him. I will check his labs. IV antibiotics. This is a history and physical on Raza Sagastume, could be uroseptic with a history of end-stage renal disease, HIV, diabetes, and a recent left AKA. Parag Brownlee DO [facility]PITALAnna
--- NOTE | 2017-11-07 09:47 | PCM.URO ---
Urology Progress Note - Objective Lab Studies: Reviewed (full note to be dictated Plans:pelvic ultrasound) Lab Results Last 24 Hours: Laboratory Results - last 24 hr 11/06/17 11/06/17 11/06/17 12:30 13:00 13:00 WBC 17.9 H D 16.2 H RBC 3.26 L 3.14 L Hgb 10.0 L 9.7 L Hct 31.5 L 29.7 L MCV 96.6 94.6 MCH 30.7 30.9 MCHC 31.7 32.7 RDW 16.6 H 16.6 H Plt Count 403 406 MPV 9.4 9.8 Gran % 73.2 H 82.8 H Lymph % (Auto) 17.6 L 13.0 L Upson % (Auto) 8.4 H 3.6 Eos % (Auto) 0.6 L 0.4 L Baso % (Auto) 0.2 0.2 Gran # 13.10 H 13.41 H Lymph # (Auto) 3.1 2.1 Upson # (Auto) 1.5 H 0.6 Eos # (Auto) 0.1 0.1 Baso # (Auto) 0.03 0.03 Sodium 137 Potassium 3.2 L Chloride 94 L Carbon Dioxide 32 Anion Gap 15 BUN 23 H Creatinine 4.3 H Est GFR ( Amer) 16 Est GFR (Non-Af Amer) 14 Random Glucose 94 Calcium 9.0 Phosphorus 2.0 L Magnesium 2.0 Total Bilirubin 0.3 AST 49 ALT 26 Alkaline Phosphatase 101 Total Protein 7.5 Albumin 3.2 Globulin 4.2 Albumin/Globulin Ratio 0.8 L 11/07/17 11/07/17 06:50 06:50 WBC 19.9 H D RBC 3.29 L Hgb 10.2 L Hct 31.7 L MCV 96.4 MCH 31.0 MCHC 32.2 RDW 16.7 H Plt Count 383 MPV 9.9 Gran % Lymph % (Auto) Upson % (Auto) Eos % (Auto) Baso % (Auto) Gran # Lymph # (Auto) Upson # (Auto) Eos # (Auto) Baso # (Auto) Sodium 137 Potassium 4.5 Chloride 94 L Carbon Dioxide 31 Anion Gap 17 BUN 28 H Creatinine 5.5 H Est GFR ( Amer) 12 Est GFR (Non-Af Amer) 10 Random Glucose 95 Calcium 9.5 Phosphorus Magnesium Total Bilirubin 0.5 AST 47 ALT 21 Alkaline Phosphatase 129 H D Total Protein 7.6 Albumin 3.2 Globulin 4.4 Albumin/Globulin Ratio 0.7 L Intake & Output: Intake & Output 11/06/17 11/07/17 11/07/17 18:59 06:59 18:59 Intake Total 240 720 Balance 240 720 Intake: Oral 240 720 Other: # Voids Urine, Voided 1 # Bowel Movements 1 0 Vital Signs: Vital Signs - 24 hr 11/06/17 11/06/17 11/07/17 15:18 15:21 08:37 Temperature 98.9 F 99.5 F Pulse Rate 127 H 108 H Respiratory 20 Rate Blood Pressure 218/120 H 112/71 O2 Sat by Pulse 100 Oximetry
[2017-11-07] MEDS: Multivitamin Vitamin B Complex (Nephro-Vite) Tab PO SCH (11:06)
[2017-11-07] MEDS: Enoxaparin 30 mg Syringe SC SCH (11:10)
[2017-11-07] MEDS ORDERED: Barium Sulfate Susp 2.1% w/v, 2.0% w/w 450 mL Bottle PO ONE (11:51)
--- NOTE | 2017-11-07 12:00 | CP.PCM.CON ---
<Marcela Jackson - Last Filed: 11/07/17 11:56> History of Present Illness - History of Present Illness History of Present Illness: GI Fellow PGY 4 Consult Note This is a 72 year old male with PMH of ESRD on HD, HTN, prostate CA, HIV on HAART, history of osteomyelitis of left first toe S/P amputation (2015), gout, history of left foot ulcers, history of pyelonephritis with E. coli bacteremia, S/P left foot 3rd digit chronic osteomyelitis S/P amputation and debridement, severe PAD S/P angioplasty of the left tibial artery was sent in to [facility] [place] because of cloudy urine and apparent note of pus in the urine. The patient has been complaining of some suprapubic tenderness. He has no fever, no chills, no nausea or vomiting, no abdominal pain, no diarrhea, no headache. He is found to have low grade fever on this admission. Pt is on IV Meropenem by ID. GI was consulted for abdominal pain. Pt reports acute onset of diffuse abdominal pain yesterday and lead to nausea and vomiting after eating breakfast. Pain is constant and sharp, not worse with food as pt is tolerating diet. Denies bloody BM and had a normal BM this am. He had EGD/Colonoscopy last summer 2016 at the [facility] which was negative per pt. ROS: A 12pt ROS was neg except as above PMH: As stated in HPI PSH: As stated in HPI SHX: Deneis etoh, tobacco or drugs FHX: Denies colon cancer Past Patient History - Infectious Disease Hx of Infectious Diseases: None - Tetanus Immunizations Tetanus Immunization: Up to Date - Past Medical History & Family History Past Medical History?: Yes - Past Social History Smoking Status: Never Smoked - CARDIAC Hx Cardiac Disorders: Yes Hx Hypertension: Yes - PULMONARY Hx Chronic Obstructive Pulmonary Disease (COPD): Yes - NEUROLOGICAL Hx Vertigo: Yes - HEENT Hx HEENT Problems: No - RENAL Hx Chronic Kidney Disease: Yes - ENDOCRINE/METABOLIC Hx Diabetes Mellitus Type 2: Yes - HEMATOLOGICAL/ONCOLOGICAL Hx Blood Transfusions: Yes Hx Blood Transfusion Reaction: No - INTEGUMENTARY Hx Dermatological Problems: Yes Hx Cellulitis: Yes Other/Comment: dry gangrene and osteomyelitis L foot - MUSCULOSKELETAL/RHEUMATOLOGICAL Hx Falls: Yes - GASTROINTESTINAL Hx Gastroesophageal Reflux: Yes - GENITOURINARY/GYNECOLOGICAL Hx Genitourinary Disorders: Yes Hx Prostate Cancer: Yes - PSYCHIATRIC Hx Substance Use: No - SURGICAL HISTORY Hx Amputation: Yes (L toes 1-3) Hx Angioplasty: Yes (L tibial artery ) Other/Comment: prostatectomy, incision and drainage of right hand abscess - ANESTHESIA Hx Anesthesia Reactions: No Hx Malignant Hyperthermia: No Meds Allergies/Adverse Reactions: Allergies Allergy/AdvReac Type Severity Reaction Status Date / Time banana Allergy SWELLING Verified 08/08/17 04:43 shrimp Allergy SWELLING Verified 08/08/17 04:43 - Medications Medications: Current Medications Abacavir Sulfate (Ziagen) 600 mg PO DAILY [facility] PRN Reason: Protocol Last Admin: 11/07/17 11:07 Dose: 600 mg Acetaminophen (Tylenol 325mg Tab) 650 mg PO Q4H PRN PRN Reason: Fever >100.4 F Allopurinol (Zyloprim) 300 mg PO DAILY [facility] Last Admin: 11/07/17 11:07 Dose: 300 mg Amlodipine Besylate (Norvasc) 10 mg PO DAILY [facility] Last Admin: 11/07/17 11:08 Dose: 10 mg Enoxaparin Sodium (Lovenox) 30 mg SC DAILY [facility] PRN Reason: Protocol Last Admin: 11/07/17 11:10 Dose: 30 mg Ferrous Gluconate (Fergon) 324 mg PO TID [facility] Last Admin: 11/07/17 11:07 Dose: 324 mg Heparin Sodium (Porcine) (Heparin) 2,000 units IVP TTS [facility] PRN Reason: Protocol Meropenem 500 mg/ Sodium (Chloride) 50 mls @ 100 mls/hr IVPB Q24H [facility] PRN Reason: Protocol Stop: 11/13/17 11:16 Last Admin: 11/06/17 18:34 Dose: 100 mls/hr Lamivudine (Epivir) 150 mg PO TTS [facility] PRN Reason: Protocol Losartan Potassium (Cozaar) 100 mg PO DAILY [facility] Last Admin: 11/07/17 11:13 Dose: 100 mg Metoprolol Tartrate (Lopressor) 100 mg PO Q12 [facility] Last Admin: 11/07/17 11:06 Dose: 100 mg Non-Formulary Medication (Dolutegravir Sodium [Tivicay]) 50 mg PO DAILY [facility] Last Admin: 11/06/17 15:37 Dose: Not Given Nystatin (Nystop Topical Powder) 0 gm TOP BID [facility] Stop: 11/20/17 13:01 Last Admin: 11/06/17 12:35 Dose: Not Given Ondansetron HCl (Zofran Inj) 4 mg IVP Q4H PRN PRN Reason: Nausea/Vomiting Last Admin: 11/06/17 04:53 Dose: 4 mg Ondansetron HCl (Zofran Tab) 4 mg PO Q4 PRN PRN Reason: Nausea/Vomiting Pantoprazole Sodium (Protonix Inj) 40 mg IVP Q12 [facility] Last Admin: 11/07/17 11:06 Dose: 40 mg Sevelamer HCl (Renagel) 1,600 mg PO TID [facility] Last Admin: 11/07/17 11:07 Dose: 1,600 mg Tramadol HCl (Ultram) 50 mg PO Q8H PRN PRN Reason: Pain, moderate (4-7) Last Admin: 11/07/17 06:25 Dose: 50 mg Vitamin B Complex/Vit C/Folic Acid (Nephro-Christel) 1 tab PO DAILY [facility] Last Admin: 11/07/17 11:06 Dose: 1 tab Physical Exam - Constitutional Appears: Non-toxic, No Acute Distress, Chronically Ill - Head Exam Head Exam: ATRAUMATIC, NORMAL INSPECTION, NORMOCEPHALIC - Eye Exam Eye Exam: EOMI, Normal appearance, PERRL Pupil Exam: NORMAL ACCOMODATION, PERRL - ENT Exam ENT Exam: Mucous Membranes Moist, Normal Exam - Neck Exam Neck exam: Positive for: Normal Inspection - Respiratory Exam Respiratory Exam: Clear to Auscultation Bilateral, NORMAL BREATHING PATTERN - Cardiovascular Exam Cardiovascular Exam: REGULAR RHYTHM, +S1, +S2 - GI/Abdominal Exam GI & Abdominal Exam: Distended, Normal Bowel Sounds, Tenderness. absent: Diminished Bowel Sounds, Guarding, Organomegaly, Rebound, Rigid - Extremities Exam Extremities exam: Positive for: normal inspection - Neurological Exam Neurological exam: Alert, Oriented x3 - Psychiatric Exam Psychiatric exam: Normal Affect, Normal Mood - Skin Skin Exam: Dry, Intact, Normal Color, Warm Results - Vital Signs Recent Vital Signs: Last Vital Signs Temp 99.5 F 11/07/17 08:37 Pulse 108 H 11/07/17 08:37 Resp 20 11/07/17 08:37 BP 114/71 11/07/17 11:08 Pulse Ox 100 11/07/17 08:37 - Labs Result Diagrams: 11/07/17 06:50 03/21/18 06:50 Labs: Laboratory Results - last 24 hr 11/06/17 11/06/17 11/06/17 12:30 13:00 13:00 WBC 17.9 H D 16.2 H RBC 3.26 L 3.14 L Hgb 10.0 L 9.7 L Hct 31.5 L 29.7 L MCV 96.6 94.6 MCH 30.7 30.9 MCHC 31.7 32.7 RDW 16.6 H 16.6 H Plt Count 403 406 MPV 9.4 9.8 Gran % 73.2 H 82.8 H Lymph % (Auto) 17.6 L 13.0 L [place] % (Auto) 8.4 H 3.6 Eos % (Auto) 0.6 L 0.4 L Baso % (Auto) 0.2 0.2 Gran # 13.10 H 13.41 H Lymph # (Auto) 3.1 2.1 [place] # (Auto) 1.5 H 0.6 Eos # (Auto) 0.1 0.1 Baso # (Auto) 0.03 0.03 Sodium 137 Potassium 3.2 L Chloride 94 L Carbon Dioxide 32 Anion Gap 15 BUN 23 H Creatinine 4.3 H Est GFR ( Amer) 16 Est GFR (Non-Af Amer) 14 Random Glucose 94 Calcium 9.0 Phosphorus 2.0 L Magnesium 2.0 Total Bilirubin 0.3 AST 49 ALT 26 Alkaline Phosphatase 101 Total Protein 7.5 Albumin 3.2 Globulin 4.2 Albumin/Globulin Ratio 0.8 L Prostate Specific Ag 11/07/17 11/07/17 11/07/17 06:50 06:50 09:00 WBC 19.9 H D RBC 3.29 L Hgb 10.2 L Hct 31.7 L MCV 96.4 MCH 31.0 MCHC 32.2 RDW 16.7 H Plt Count 383 MPV 9.9 Gran % Lymph % (Auto) [place] % (Auto) Eos % (Auto) Baso % (Auto) Gran # Lymph # (Auto) [place] # (Auto) Eos # (Auto) Baso # (Auto) Sodium 137 Potassium 4.5 Chloride 94 L Carbon Dioxide 31 Anion Gap 17 BUN 28 H Creatinine 5.5 H Est GFR ( Amer) 12 Est GFR (Non-Af Amer) 10 Random Glucose 95 Calcium 9.5 Phosphorus Magnesium Total Bilirubin 0.5 AST 47 ALT 21 Alkaline Phosphatase 129 H D Total Protein 7.6 Albumin 3.2 Globulin 4.4 Albumin/Globulin Ratio 0.7 L Prostate Specific Ag < 0.1 Assessment & Plan - Assessment and Plan (Free Text) Assessment: This is a 72yM presenting with pus in urine and developed abdominal pain. 1. Abdominal Pain 2. N/V 3. ESRD on HD 4. UTI/pus in urine 5. Hx PVD 6. Hx of osetomyelitis 7. HIV Plan: -Continue supportive care with pain control and anti-emetics -Pt with abdominal pain out of proportion to exam -Order CTA/P with contrast to evaluate for any ischemic with hx of PVD and ESRD , WBC trending up, discussed with Dr. Arechiga and nahum to give contrast as pt will get HD tomorrow -Continue abx per ID -Diet as tolerated -PPI daily -No endoscopic evaluation at this time -Will continue to follow closely <Flavia Ji - Last Filed: 11/07/17 14:17> Meds - Medications Medications: Current Medications Abacavir Sulfate (Ziagen) 600 mg PO DAILY [facility] PRN Reason: Protocol Last Admin: 11/07/17 11:07 Dose: 600 mg Acetaminophen (Tylenol 325mg Tab) 650 mg PO Q4H PRN PRN Reason: Fever >100.4 F Allopurinol (Zyloprim) 300 mg PO DAILY [facility] Last Admin: 11/07/17 11:07 Dose: 300 mg Amlodipine Besylate (Norvasc) 10 mg PO DAILY [facility] Enoxaparin Sodium (Lovenox) 30 mg SC DAILY [facility] PRN Reason: Protocol Last Admin: 11/07/17 11:10 Dose: 30 mg Ferrous Gluconate (Fergon) 324 mg PO TID [facility] Last Admin: 11/07/17 11:07 Dose: 324 mg Heparin Sodium (Porcine) (Heparin) 2,000 units IVP TTS [facility] PRN Reason: Protocol Meropenem 500 mg/ Sodium (Chloride) 50 mls @ 100 mls/hr IVPB Q24H [facility] PRN Reason: Protocol Stop: 11/13/17 11:16 Last Admin: 11/07/17 13:07 Dose: 100 mls/hr Lamivudine (Epivir) 150 mg PO TTS [facility] PRN Reason: Protocol Metoprolol Tartrate (Lopressor) 100 mg PO Q12 [facility] Non-Formulary Medication (Dolutegravir Sodium [Tivicay]) 50 mg PO DAILY [facility] Last Admin: 11/06/17 15:37 Dose: Not Given Nystatin (Nystop Topical Powder) 0 gm TOP BID [facility] Stop: 11/20/17 13:01 Last Admin: 11/06/17 12:35 Dose: Not Given Ondansetron HCl (Zofran Inj) 4 mg IVP Q4H PRN PRN Reason: Nausea/Vomiting Last Admin: 11/06/17 04:53 Dose: 4 mg Ondansetron HCl (Zofran Tab) 4 mg PO Q4 PRN PRN Reason: Nausea/Vomiting Pantoprazole Sodium (Protonix Inj) 40 mg IVP Q12 [facility] Last Admin: 11/07/17 11:06 Dose: 40 mg Sevelamer HCl (Renagel) 1,600 mg PO TID [facility] Last Admin: 11/07/17 11:07 Dose: 1,600 mg Tramadol HCl (Ultram) 50 mg PO Q8H PRN PRN Reason: Pain, moderate (4-7) Last Admin: 11/07/17 06:25 Dose: 50 mg Vitamin B Complex/Vit C/Folic Acid (Nephro-Christel) 1 tab PO DAILY [facility] Last Admin: 11/07/17 11:06 Dose: 1 tab Results - Vital Signs Recent Vital Signs: Last Vital Signs Temp 99.5 F 11/07/17 08:37 Pulse 108 H 11/07/17 08:37 Resp 20 11/07/17 08:37 BP 114/71 11/07/17 11:08 Pulse Ox 100 11/07/17 08:37 - Labs Result Diagrams: 11/07/17 06:50 11/07/17 06:50 Labs: Laboratory Results - last 24 hr 11/07/17 11/07/17 11/07/17 06:50 06:50 09:00 WBC 19.9 H D RBC 3.29 L Hgb 10.2 L Hct 31.7 L MCV 96.4 MCH 31.0 MCHC 32.2 RDW 16.7 H Plt Count 383 MPV 9.9 Sodium 137 Potassium 4.5 Chloride 94 L Carbon Dioxide 31 Anion Gap 17 BUN 28 H Creatinine 5.5 H Est GFR ( Amer) 12 Est GFR (Non-Af Amer) 10 Random Glucose 95 Calcium 9.5 Total Bilirubin 0.5 AST 47 ALT 21 Alkaline Phosphatase 129 H D Total Protein 7.6 Albumin 3.2 Globulin 4.4 Albumin/Globulin Ratio 0.7 L Prostate Specific Ag < 0.1 Attending/Attestation - Attestation I have personally seen and examined this patient.: Yes I have fully participated in the care of the patient.: Yes I have reviewed all pertinent clinical information: Yes Notes (Text): 11/07/17 14:15 72 year old M presenting with pus in urine and developed abdominal pain with pyelonephritis. GI consulted for nausea, vomiting and abdominal pain which could be multifactorial but prudent to rule out ischemia. Will get CTA abdomen. Continue supportive care with pain control and anti-emetics and antibiotics. Diet as tolerated
--- NOTE | 2017-11-07 12:33 | US ---
PROCEDURE: Ultrasound urinary bladder HISTORY: retention and infection and renal failure COMPARISON: 05/01/2017 TECHNIQUE: Standard protocol for this study/examination. FINDINGS: Urinary bladder assessment: Prevoid volume: 99.5 ml Postvoid residual: 83.2 ml Layering of debris/complex fluid within the urinary bladder. No discrete bladder wall abnormalities. Ureteral jets: Right ureteral jet not visualize. Left ureteral jet documented. On the prior study a normal capacitance bladder noted which completely emptied with voiding. IMPRESSION: Small capacitance bladder, large postvoid residual. Debris/complex fluid identified within the urinary bladder.
[2017-11-07] MEDS ORDERED: Iohexol 240 (50 ml) ONE (13:04)
[2017-11-07] MEDS: Meropenem 500 MG in Sodium Chloride 0.9% 50 ML IVPB SCH (13:07)
--- NOTE | 2017-11-07 13:20 | CP.PCM.PN ---
Subjective - Date & Time of Evaluation Date of Evaluation: 11/07/17 Time of Evaluation: 13:17 - Subjective Subjective: Nephrology Consultation Note: Assessment:critical UTI, Hyperkalemia, sepsis. also r/o permacath related infection hx of prostate CA Hypertensive Chronic Kidney Disease (I12.9) ESRD on HD via permacath (TTS) Anemia (D64.9), HTN (I12.9) HIV on HAART, PVD s/p angioplasty s/p Rt AKA Plan plan for HD tomorrow as per TTS. nephrovite 1 tab/day. blood cx during HD yesterday aransep 40 mcg weekly for anemia 11/06/17. PRBC as needed . last Hb 10.2 continue with home dose of phosphorus binders as ordered Hypertension control with meds as ordered. Patient on RAAS edyta as losartan. also on norvasc and lopressor ID and GI following will add topical nystatin Pt planned for CT abdomen with IV contrast, no contraindication from renal perspective, will get dialysis as per schedule tomorrow Dose meds/antibiotics for ESRD status. Avoid fleets enema/magnesium based laxatives. Avoid nephrotoxins/NSAIDs/ iodinated contrast (unless needed emergently) Further work up/management as per primary team. Thanks for allowing me to participate in care of your patient. Will follow patient with you. Please call if any Qs. Dr Yandel Arechiga Office: [phone] CC: abdomen pain reason for consult: ESRD, HTN HPI: Pt is a 72 y/o M with hx of HIV on HAART, PVD s/p angioplasty, Rt AKA, hypertension (10-15 years), ESRD on HD (via permacath) TTS @ [facility] [place], left foot toe amputations, prostate CA presented with groin pain and cloudy urine. being managed for UTI renal consult for ESRD, HTN management pt doesn't feel well. says everything is bothering him as lower ext pain, groin pain. says alcala catheter was removed 2 weeks ago ROS: denies CP/SOB. all other neg except as in HPI. c/o abdomen pain Physical Examination: General Appearance: uncomfortable, in no acute respiratory distress, facial muscles wasted Vitals reviewed and noted as below Head; Atraumatic, normocephalic ENT: no ulcers no thrush. Tongue is midline dry. Oropharynx: no rash or ulcers. EYES: Pupils are equal, round and reactive to light accommodation. Eye muscles and extraocular movement intact. Sclera is anicteric. Neck; supple no lymphadenopathy, no thyromegaly or bruit Lungs: Normal respiratory rate/effort. Breath sounds bilateral clear Heart: Normal rate. s1s2 normal. No rub or gallop. Extremities: no edema. No varicose veins. s/p Rt AKA Neurological: Patient is alert oriented x 3 follow commands,. no focal deficit Skin: Warm and dry. Normal turgor. Palpitation: Normal elasticity for age. has inguinal erythematous rash Abdomen: Abdomen is soft. Bowel sounds +. There is epigastric and lower abdominal tenderness with guarding no rigidity no organomegaly Psych: limited insight. flat affect MSK: Digits and nails normal, left foot toe amputations in past. Rt AKA. : kidney not palpable. no inguinal hernia. has dullness over bladder area when percussed Access: permacath and maturing left AVF Labs/imaging/EKG reviewed. Past medical history, past surgical history, family history, social history, allergy reviewed and noted as below Family hx: sister was on dialysis. Rest non-contributory Objective - Vital Signs/Intake and Output Vital Signs (last 24 hours): Temp Pulse Resp BP Pulse Ox 99.5 F 108 H 20 114/71 100 11/07/17 08:37 11/07/17 08:37 11/07/17 08:37 11/07/17 11:08 11/07/17 08:37 Intake and Output: 11/07/17 11/07/17 06:59 18:59 Intake Total 720 Balance 720 - Medications Medications: Current Medications Abacavir Sulfate (Ziagen) 600 mg PO DAILY [facility] PRN Reason: Protocol Last Admin: 11/07/17 11:07 Dose: 600 mg Acetaminophen (Tylenol 325mg Tab) 650 mg PO Q4H PRN PRN Reason: Fever >100.4 F Allopurinol (Zyloprim) 300 mg PO DAILY [facility] Last Admin: 11/07/17 11:07 Dose: 300 mg Amlodipine Besylate (Norvasc) 10 mg PO DAILY [facility] Last Admin: 11/07/17 11:08 Dose: 10 mg Enoxaparin Sodium (Lovenox) 30 mg SC DAILY [facility] PRN Reason: Protocol Last Admin: 11/07/17 11:10 Dose: 30 mg Ferrous Gluconate (Fergon) 324 mg PO TID [facility] Last Admin: 11/07/17 11:07 Dose: 324 mg Heparin Sodium (Porcine) (Heparin) 2,000 units IVP TTS [facility] PRN Reason: Protocol Meropenem 500 mg/ Sodium (Chloride) 50 mls @ 100 mls/hr IVPB Q24H [facility] PRN Reason: Protocol Stop: 11/13/17 11:16 Last Admin: 11/07/17 13:07 Dose: 100 mls/hr Lamivudine (Epivir) 150 mg PO TTS [facility] PRN Reason: Protocol Losartan Potassium (Cozaar) 100 mg PO DAILY [facility] Last Admin: 11/07/17 11:13 Dose: 100 mg Metoprolol Tartrate (Lopressor) 100 mg PO Q12 [facility] Last Admin: 11/07/17 11:06 Dose: 100 mg Non-Formulary Medication (Dolutegravir Sodium [Tivicay]) 50 mg PO DAILY [facility] Last Admin: 11/06/17 15:37 Dose: Not Given Nystatin (Nystop Topical Powder) 0 gm TOP BID [facility] Stop: 11/20/17 13:01 Last Admin: 11/06/17 12:35 Dose: Not Given Ondansetron HCl (Zofran Inj) 4 mg IVP Q4H PRN PRN Reason: Nausea/Vomiting Last Admin: 11/06/17 04:53 Dose: 4 mg Ondansetron HCl (Zofran Tab) 4 mg PO Q4 PRN PRN Reason: Nausea/Vomiting Pantoprazole Sodium (Protonix Inj) 40 mg IVP Q12 [facility] Last Admin: 11/07/17 11:06 Dose: 40 mg Sevelamer HCl (Renagel) 1,600 mg PO TID [facility] Last Admin: 11/07/17 11:07 Dose: 1,600 mg Tramadol HCl (Ultram) 50 mg PO Q8H PRN PRN Reason: Pain, moderate (4-7) Last Admin: 11/07/17 06:25 Dose: 50 mg Vitamin B Complex/Vit C/Folic Acid (Nephro-Christel) 1 tab PO DAILY [facility] Last Admin: 11/07/17 11:06 Dose: 1 tab - Labs Labs: 11/07/17 06:50 11/07/17 06:50
[2017-11-07] MEDS ORDERED: Iohexol 350 MG/100 ML VIAL ONE (13:52)
--- NOTE | 2017-11-07 16:49 | CT ---
PROCEDURE: CT Abdomen and Pelvis with contrast HISTORY: Abdominal pain. Sepsis COMPARISON: 07/05/2017 CT abdomen and pelvis 04/29/2017 CT abdomen and pelvis TECHNIQUE: Contrast dose: 100 cc Omnipaque 350. Radiation dose: Total exam DLP = 216.23 mGy-cm. This CT exam was performed using one or more of the following dose reduction techniques: Automated exposure control, adjustment of the mA and/or kV according to patient size, and/or use of iterative reconstruction technique. FINDINGS: LOWER THORAX: Unremarkable. LIVER: Unremarkable. No gross lesion or ductal dilatation. GALLBLADDER AND BILE DUCTS: Unremarkable. PANCREAS: Unremarkable. No gross lesion or ductal dilatation. SPLEEN: Unremarkable. ADRENALS: Unremarkable. No mass. KIDNEYS AND URETERS: Right hydronephrosis, hydroureter without calculus or identifiable obstructing lesion. Contrast enhancement of the ureter suggests acute inflammatory process. VASCULATURE: Unremarkable. No aortic aneurysm. BOWEL: High-grade distal small-bowel obstruction. No mechanical/ obstructing lesion identified. The adjacent cecum, ileocecal valve region are normal. APPENDIX: A normal appendix is not visualized. PERITONEUM: Unremarkable. No free fluid. No free air. LYMPH NODES: Unremarkable. No enlarged lymph nodes. BLADDER: Diffusely thickened bladder wall without focal lesion. Cystitis the likely etiology. Small bladder diverticulum identified midline adjacent to your apical remnant. REPRODUCTIVE: Enlarged prostate. BONES: Chronic degenerative changes L4-5 and L5-S1. Grade 1 anterolisthesis L4-5. Similar findings identified on prior studies. OTHER FINDINGS: Small fat containing periumbilical hernia. IMPRESSION: High-grade distal small-bowel obstruction. Right hydronephrosis, hydroureter without distal obstructing lesion. Severe thickening of the bladder wall consistent with cystitis.
[2017-11-07] MEDS ORDERED: Vancomycin 1.5 GM in Sodium Chloride 0.9% 500 ML IVPB ONE (17:34)
--- NOTE | 2017-11-07 17:54 | CP.PCM.PN ---
Subjective - Date & Time of Evaluation Date of Evaluation: 11/07/17 Time of Evaluation: 11:40 - Subjective Subjective: Having pain in the abdomen, no fevers, has nausea. Objective - Vital Signs/Intake and Output Vital Signs (last 24 hours): Temp Pulse Resp BP Pulse Ox 99.5 F 108 H 20 112/71 100 11/07/17 08:37 11/07/17 08:37 11/07/17 08:37 11/07/17 08:37 11/07/17 08:37 Intake and Output: 11/07/17 11/07/17 06:59 18:59 Intake Total 720 Balance 720 - Medications Medications: Current Medications Abacavir Sulfate (Ziagen) 600 mg PO DAILY [facility] PRN Reason: Protocol Last Admin: 11/06/17 12:37 Dose: Not Given Acetaminophen (Tylenol 325mg Tab) 650 mg PO Q4H PRN PRN Reason: Fever >100.4 F Allopurinol (Zyloprim) 300 mg PO DAILY [facility] Last Admin: 11/06/17 12:38 Dose: Not Given Amlodipine Besylate (Norvasc) 10 mg PO DAILY [facility] Last Admin: 11/06/17 10:41 Dose: Not Given Enoxaparin Sodium (Lovenox) 30 mg SC DAILY [facility] PRN Reason: Protocol Last Admin: 11/06/17 10:40 Dose: Not Given Ferrous Gluconate (Fergon) 324 mg PO TID [facility] Last Admin: 11/06/17 14:38 Dose: Not Given Heparin Sodium (Porcine) (Heparin) 2,000 units IVP TTS [facility] PRN Reason: Protocol Meropenem 500 mg/ Sodium (Chloride) 50 mls @ 100 mls/hr IVPB Q24H [facility] PRN Reason: Protocol Stop: 11/13/17 11:16 Last Admin: 11/06/17 18:34 Dose: 100 mls/hr Lamivudine (Epivir) 150 mg PO TTS [facility] PRN Reason: Protocol Losartan Potassium (Cozaar) 100 mg PO DAILY [facility] Last Admin: 11/06/17 15:37 Dose: Not Given Metoprolol Tartrate (Lopressor) 100 mg PO Q12 [facility] Last Admin: 11/06/17 21:48 Dose: Not Given Non-Formulary Medication (Dolutegravir Sodium [Tivicay]) 50 mg PO DAILY [facility] Last Admin: 11/06/17 15:37 Dose: Not Given Nystatin (Nystop Topical Powder) 0 gm TOP BID [facility] Stop: 11/20/17 13:01 Last Admin: 11/06/17 12:35 Dose: Not Given Ondansetron HCl (Zofran Inj) 4 mg IVP Q4H PRN PRN Reason: Nausea/Vomiting Last Admin: 11/06/17 04:53 Dose: 4 mg Ondansetron HCl (Zofran Tab) 4 mg PO Q4 PRN PRN Reason: Nausea/Vomiting Pantoprazole Sodium (Protonix Inj) 40 mg IVP Q12 [facility] Sevelamer HCl (Renagel) 1,600 mg PO TID [facility] Last Admin: 11/06/17 18:41 Dose: 1,600 mg Tramadol HCl (Ultram) 50 mg PO Q8H PRN PRN Reason: Pain, moderate (4-7) Last Admin: 11/07/17 06:25 Dose: 50 mg Vitamin B Complex/Vit C/Folic Acid (Nephro-Christel) 1 tab PO DAILY [facility] Last Admin: 11/06/17 10:40 Dose: Not Given - Labs Labs: 11/07/17 06:50 11/07/17 06:50 - Constitutional Appears: Chronically Ill - Head Exam Head Exam: NORMAL INSPECTION - Neck Exam Neck Exam: absent: Meningismus - Respiratory Exam Respiratory Exam: Decreased Breath Sounds - Cardiovascular Exam Cardiovascular Exam: +S1, +S2 - GI/Abdominal Exam GI & Abdominal Exam: Distended, Soft, Tenderness. absent: Guarding, Rigid, Rebound Assessment and Plan - Assessment and Plan (Free Text) Plan: Assessment UTI with cystitis on top of small bowel obstruction severe PAD S/P angioplasty of the left tibial artery S/P right AKA UTI with MRSA and Strep viridans systemic viral illness with Influenza history of left foot 3rd digit chronic osteomyelitis S/P amputation and debridement right sided nephrolithiasis history of severe sepsis with acute on chronic renal failure probably due to pyelonephritis with E. coli bacteremia history of C. diff. associated diarrhea Charcot foot, left history of left 2nd toe dry gangrene Chronic renal failure on hemodialysis HTN prostate CA HIV (patient [place] to the [place] with [place] [facility] [place] 349 and virus load < 1.3 log) history of osteomyelitis of left first toe S/P amputation (2015) gout history of left foot ulcers Plan continue Merrem and given a dose of IV Vancomycin (Day 2)pending urine and blood cx; will check PSA levels as well continue antiretroviral therapy (lamivudine, abacavir on formulary but dolutegravir should be taken by patient from his home supply) reviewed CT A/P - follow up plans of GI overall prognosis is poor
[2017-11-07] MEDS: Nystatin 100,000 Units/gm Topical Pow(15 gm) TOP SCH (18:24)
[2017-11-07] MEDS: Non Formulary Medication (Dolutegravir Sodium [Tivicay] 50 MG) PO SCH (18:35)
--- NOTE | 2017-11-07 18:42 | CP.PCM.CON ---
History of Present Illness - History of Present Illness History of Present Illness: Surgery: Dr. Martinez CC: ABD pain HPI: 72M w. pmh of ESRD on HD, HTN, prostate CA, HIV on HAART, pyelonephritis, COPD, DM, gout, and PVD presents to ED for pus in his urine and suprapubic tenderness. Surgery was consulted for new onset abd pain which began yesterday. Pt states that the pain is diffuse, more prominent in lower abd. The pain is constant. It is minimally relieved w. pain meds. He reports nausea and several episodes of vomiting which occur soon after eating. He last had BM/Flatus yesterday, nothing today. He denies F/C. This is the first time he has had this type of pain. PMH: See above PSH: angioplasty, R AKA Meds: MAR reviewed NKDA Social: Social ETOH, no tobacco drugs Review of Systems - Review of Systems All systems: reviewed and no additional remarkable complaints except (HPI) Past Patient History - Infectious Disease Hx of Infectious Diseases: None - Tetanus Immunizations Tetanus Immunization: Up to Date - Past Medical History & Family History Past Medical History?: Yes - Past Social History Smoking Status: Never Smoked - CARDIAC Hx Cardiac Disorders: Yes Hx Hypertension: Yes - PULMONARY Hx Chronic Obstructive Pulmonary Disease (COPD): Yes - NEUROLOGICAL Hx Vertigo: Yes - HEENT Hx HEENT Problems: No - RENAL Hx Chronic Kidney Disease: Yes - ENDOCRINE/METABOLIC Hx Diabetes Mellitus Type 2: Yes - HEMATOLOGICAL/ONCOLOGICAL Hx Blood Transfusions: Yes Hx Blood Transfusion Reaction: No - INTEGUMENTARY Hx Dermatological Problems: Yes Hx Cellulitis: Yes Other/Comment: dry gangrene and osteomyelitis L foot - MUSCULOSKELETAL/RHEUMATOLOGICAL Hx Falls: Yes - GASTROINTESTINAL Hx Gastroesophageal Reflux: Yes - GENITOURINARY/GYNECOLOGICAL Hx Genitourinary Disorders: Yes Hx Prostate Cancer: Yes - PSYCHIATRIC Hx Substance Use: No - SURGICAL HISTORY Hx Amputation: Yes (L toes 1-3) Hx Angioplasty: Yes (L tibial artery ) Other/Comment: prostatectomy, incision and drainage of right hand abscess - ANESTHESIA Hx Anesthesia Reactions: No Hx Malignant Hyperthermia: No Meds Allergies/Adverse Reactions: Allergies Allergy/AdvReac Type Severity Reaction Status Date / Time banana Allergy SWELLING Verified 08/08/17 04:43 shrimp Allergy SWELLING Verified 08/08/17 04:43 - Medications Medications: Current Medications Abacavir Sulfate (Ziagen) 600 mg PO DAILY [facility] PRN Reason: Protocol Last Admin: 11/07/17 11:07 Dose: 600 mg Acetaminophen (Tylenol 325mg Tab) 650 mg PO Q4H PRN PRN Reason: Fever >100.4 F Allopurinol (Zyloprim) 300 mg PO DAILY [facility] Last Admin: 11/07/17 11:07 Dose: 300 mg Amlodipine Besylate (Norvasc) 10 mg PO DAILY [facility] Enoxaparin Sodium (Lovenox) 30 mg SC DAILY [facility] PRN Reason: Protocol Last Admin: 11/07/17 11:10 Dose: 30 mg Ferrous Gluconate (Fergon) 324 mg PO TID [facility] Last Admin: 11/07/17 18:24 Dose: Not Given Heparin Sodium (Porcine) (Heparin) 2,000 units IVP TTS [facility] PRN Reason: Protocol Meropenem 500 mg/ Sodium (Chloride) 50 mls @ 100 mls/hr IVPB Q24H [facility] PRN Reason: Protocol Stop: 11/13/17 11:16 Last Admin: 11/07/17 13:07 Dose: 100 mls/hr Vancomycin HCl 1.5 gm/ Sodium (Chloride) 500 mls @ 167 mls/hr IVPB ONCE ONE PRN Reason: Protocol Stop: 11/07/17 20:33 Last Admin: 11/07/17 18:23 Dose: 167 mls/hr Sodium Chloride (Sodium Chloride 0.9%) 100 mls @ 75 mls/hr IV .Q1H20M [facility] Lamivudine (Epivir) 150 mg PO TTS [facility] PRN Reason: Protocol Metoprolol Tartrate (Lopressor) 100 mg PO Q12 [facility] Non-Formulary Medication (Dolutegravir Sodium [Tivicay]) 50 mg PO DAILY [facility] Last Admin: 11/07/17 18:35 Dose: Not Given Nystatin (Nystop Topical Powder) 0 gm TOP BID [facility] Stop: 11/20/17 13:01 Last Admin: 11/07/17 18:24 Dose: Not Given Ondansetron HCl (Zofran Inj) 4 mg IVP Q4H PRN PRN Reason: Nausea/Vomiting Last Admin: 11/06/17 04:53 Dose: 4 mg Ondansetron HCl (Zofran Tab) 4 mg PO Q4 PRN PRN Reason: Nausea/Vomiting Pantoprazole Sodium (Protonix Inj) 40 mg IVP Q12 [facility] Last Admin: 11/07/17 11:06 Dose: 40 mg Sevelamer HCl (Renagel) 1,600 mg PO TID [facility] Last Admin: 11/07/17 18:24 Dose: Not Given Tramadol HCl (Ultram) 50 mg PO Q8H PRN PRN Reason: Pain, moderate (4-7) Last Admin: 11/07/17 14:36 Dose: 50 mg Vitamin B Complex/Vit C/Folic Acid (Nephro-Christel) 1 tab PO DAILY [facility] Last Admin: 11/07/17 11:06 Dose: 1 tab Physical Exam - Constitutional Appears: Non-toxic, No Acute Distress, Cachectic, Chronically Ill - Head Exam Head Exam: ATRAUMATIC, NORMOCEPHALIC - Eye Exam Eye Exam: EOMI - ENT Exam ENT Exam: Mucous Membranes Moist - Neck Exam Neck exam: Positive for: Full Rom - Respiratory Exam Respiratory Exam: NORMAL BREATHING PATTERN. absent: Accessory Muscle Use, Respiratory Distress - GI/Abdominal Exam GI & Abdominal Exam: Distended, Soft, Tenderness. absent: Firm, Guarding, Rebound, Rigid - Extremities Exam Additional comments: R AKA - Neurological Exam Neurological exam: Alert, Oriented x3 - Psychiatric Exam Psychiatric exam: Normal Affect, Normal Mood Results - Vital Signs Recent Vital Signs: Last Vital Signs Temp 99.5 F 11/07/17 08:37 Pulse 108 H 11/07/17 08:37 Resp 20 11/07/17 08:37 BP 114/71 11/07/17 11:08 Pulse Ox 100 11/07/17 08:37 - Labs Result Diagrams: 11/07/17 06:50 11/07/17 06:50 Labs: Laboratory Results - last 24 hr 11/07/17 11/07/17 11/07/17 06:50 06:50 09:00 WBC 19.9 H D RBC 3.29 L Hgb 10.2 L Hct 31.7 L MCV 96.4 MCH 31.0 MCHC 32.2 RDW 16.7 H Plt Count 383 MPV 9.9 Sodium 137 Potassium 4.5 Chloride 94 L Carbon Dioxide 31 Anion Gap 17 BUN 28 H Creatinine 5.5 H Est GFR ( Amer) 12 Est GFR (Non-Af Amer) 10 Random Glucose 95 Calcium 9.5 Total Bilirubin 0.5 AST 47 ALT 21 Alkaline Phosphatase 129 H D Total Protein 7.6 Albumin 3.2 Globulin 4.4 Albumin/Globulin Ratio 0.7 L Prostate Specific Ag < 0.1 - Imaging and Cardiology CT scan - abdomen Status: Image reviewed by me, Report reviewed by me Assessment & Plan - Assessment and Plan (Free Text) Assessment: 72M w. SBO -NPO -IVF -pain meds -serial abd exams -Pt refusing NGT, if symptoms worsen will attempt to place -d/w attending X[facility]is PGY3
[2017-11-07] MEDS ORDERED: Sodium Chloride 0.9% 100 ML IV SCH (18:45)
[2017-11-08] MEDS: HYDROmorphone 0.5 mg/0.5 ml ISec IVP PRN ×4 (00:30→22:35)
--- NOTE | 2017-11-08 08:47 | CP.PCM.PN ---
<Marcela Jackson - Last Filed: 11/08/17 08:48> Subjective - Date & Time of Evaluation Date of Evaluation: 11/08/17 Time of Evaluation: 07:00 - Subjective Subjective: GI Fellow PGY 4 Progress Note Pt seen and evaluated at bedside, pt complaining of abdominal pain. No BM or flatus for 2 days. No more N/V, had multiple times yesterday, no eating food. Currently NPO, pain medication with minimal relief. ROS: A 12pt ROS was negative except as above. Objective - Vital Signs/Intake and Output Vital Signs (last 24 hours): Temp Pulse Resp BP Pulse Ox 98.1 F 84 19 115/64 94 L 11/08/17 07:30 11/08/17 07:30 11/08/17 07:30 11/08/17 07:30 11/08/17 07:30 Intake and Output: 11/08/17 11/08/17 06:59 18:59 Intake Total 0 Balance 0 - Medications Medications: Current Medications Abacavir Sulfate (Ziagen) 600 mg PO DAILY [facility] PRN Reason: Protocol Last Admin: 11/07/17 11:07 Dose: 600 mg Acetaminophen (Tylenol 325mg Tab) 650 mg PO Q4H PRN PRN Reason: Fever >100.4 F Allopurinol (Zyloprim) 300 mg PO DAILY [facility] Last Admin: 11/07/17 11:07 Dose: 300 mg Amlodipine Besylate (Norvasc) 10 mg PO DAILY [facility] Enoxaparin Sodium (Lovenox) 30 mg SC DAILY [facility] PRN Reason: Protocol Last Admin: 11/07/17 11:10 Dose: 30 mg Ferrous Gluconate (Fergon) 324 mg PO TID [facility] Last Admin: 11/07/17 18:24 Dose: Not Given Heparin Sodium (Porcine) (Heparin) 2,000 units IVP TTS [facility] PRN Reason: Protocol Hydromorphone HCl (Dilaudid) 0.5 mg IVP Q4H PRN PRN Reason: Pain, severe (8-10) Last Admin: 11/08/17 07:48 Dose: 0.5 mg Meropenem 500 mg/ Sodium (Chloride) 50 mls @ 100 mls/hr IVPB Q24H [facility] PRN Reason: Protocol Stop: 11/13/17 11:16 Last Admin: 11/07/17 13:07 Dose: 100 mls/hr Sodium Chloride (Sodium Chloride 0.9%) 100 mls @ 75 mls/hr IV .Q1H20M [facility] Last Admin: 11/07/17 21:59 Dose: 75 mls/hr Lamivudine (Epivir) 150 mg PO TTS [facility] PRN Reason: Protocol Metoprolol Tartrate (Lopressor) 100 mg PO Q12 [facility] Last Admin: 11/07/17 22:00 Dose: Not Given Non-Formulary Medication (Dolutegravir Sodium [Tivicay]) 50 mg PO DAILY [facility] Last Admin: 11/07/17 18:35 Dose: Not Given Nystatin (Nystop Topical Powder) 0 gm TOP BID [facility] Stop: 11/20/17 13:01 Last Admin: 11/07/17 18:24 Dose: Not Given Ondansetron HCl (Zofran Inj) 4 mg IVP Q4H PRN PRN Reason: Nausea/Vomiting Last Admin: 11/06/17 04:53 Dose: 4 mg Ondansetron HCl (Zofran Tab) 4 mg PO Q4 PRN PRN Reason: Nausea/Vomiting Pantoprazole Sodium (Protonix Inj) 40 mg IVP Q12 [facility] Last Admin: 11/07/17 21:56 Dose: 40 mg Sevelamer HCl (Renagel) 1,600 mg PO TID [facility] Last Admin: 11/07/17 18:24 Dose: Not Given Tramadol HCl (Ultram) 50 mg PO Q8H PRN PRN Reason: Pain, moderate (4-7) Last Admin: 11/07/17 14:36 Dose: 50 mg Vitamin B Complex/Vit C/Folic Acid (Nephro-Christel) 1 tab PO DAILY [facility] Last Admin: 11/07/17 11:06 Dose: 1 tab - Labs Labs: 11/07/17 06:50 11/07/17 06:50 - Constitutional Appears: Non-toxic, No Acute Distress, Chronically Ill - Head Exam Head Exam: ATRAUMATIC, NORMAL INSPECTION, NORMOCEPHALIC - Eye Exam Eye Exam: EOMI, Normal appearance Pupil Exam: PERRL - ENT Exam ENT Exam: Mucous Membranes Dry - Neck Exam Neck Exam: Full ROM, Normal Inspection - Respiratory Exam Respiratory Exam: Clear to Ausculation Bilateral, NORMAL BREATHING PATTERN - Cardiovascular Exam Cardiovascular Exam: REGULAR RHYTHM, +S1, +S2 - GI/Abdominal Exam GI & Abdominal Exam: Distended, Soft, Tenderness, Hypoactive Bowel Sounds. absent: Organomegaly - Extremities Exam Extremities Exam: Normal Inspection - Neurological Exam Neurological Exam: Alert, Awake, Oriented x3 - Psychiatric Exam Psychiatric exam: Depressed - Skin Skin Exam: Dry, Erythema, Normal Color, Warm Assessment and Plan - Assessment and Plan (Free Text) Assessment: This is a 72yM presenting with pus in urine and developed abdominal pain. 1. SBO 2. Abdominal Pain, N/V 3. ESRD on HD 4. UTI/pus in urine 5. Hx PVD 6. Hx of osetomyelitis 7. HIV Plan: -Continue supportive care with pain control and anti-emetics -Pt with SBO on CTA/P with contrast -NPO -IVF hydration and electrolyte repletion -May benefit from NGT -Surgery following, may need surgical intervention -Continue abx per ID -PPI daily -ESRD on HD -No endoscopic evaluation at this time -Please call with any questions or concerns <Finesse Leonardo - Last Filed: 11/08/17 08:53> Objective - Vital Signs/Intake and Output Vital Signs (last 24 hours): Temp Pulse Resp BP Pulse Ox 98.1 F 84 19 115/64 94 L 11/08/17 07:30 11/08/17 07:30 11/08/17 07:30 11/08/17 07:30 11/08/17 07:30 Intake and Output: 11/08/17 11/08/17 06:59 18:59 Intake Total 0 Balance 0 - Medications Medications: Current Medications Abacavir Sulfate (Ziagen) 600 mg PO DAILY [facility] PRN Reason: Protocol Last Admin: 11/07/17 11:07 Dose: 600 mg Acetaminophen (Tylenol 325mg Tab) 650 mg PO Q4H PRN PRN Reason: Fever >100.4 F Allopurinol (Zyloprim) 300 mg PO DAILY [facility] Last Admin: 11/07/17 11:07 Dose: 300 mg Amlodipine Besylate (Norvasc) 10 mg PO DAILY [facility] Enoxaparin Sodium (Lovenox) 30 mg SC DAILY [facility] PRN Reason: Protocol Last Admin: 11/07/17 11:10 Dose: 30 mg Ferrous Gluconate (Fergon) 324 mg PO TID [facility] Last Admin: 11/07/17 18:24 Dose: Not Given Heparin Sodium (Porcine) (Heparin) 2,000 units IVP TTS [facility] PRN Reason: Protocol Hydromorphone HCl (Dilaudid) 0.5 mg IVP Q4H PRN PRN Reason: Pain, severe (8-10) Last Admin: 11/08/17 07:48 Dose: 0.5 mg Sodium Chloride (Sodium Chloride 0.9%) 100 mls @ 75 mls/hr IV .Q1H20M [facility] Last Admin: 11/07/17 21:59 Dose: 75 mls/hr Meropenem 500 mg/ Sodium (Chloride) 50 mls @ 100 mls/hr IVPB Q12 [facility] PRN Reason: Protocol Stop: 11/15/17 10:01 Lamivudine (Epivir) 150 mg PO TTS [facility] PRN Reason: Protocol Metoprolol Tartrate (Lopressor) 100 mg PO Q12 [facility] Last Admin: 11/07/17 22:00 Dose: Not Given Non-Formulary Medication (Dolutegravir Sodium [Tivicay]) 50 mg PO DAILY [facility] Last Admin: 11/07/17 18:35 Dose: Not Given Nystatin (Nystop Topical Powder) 0 gm TOP BID [facility] Stop: 11/20/17 13:01 Last Admin: 11/07/17 18:24 Dose: Not Given Ondansetron HCl (Zofran Inj) 4 mg IVP Q4H PRN PRN Reason: Nausea/Vomiting Last Admin: 11/06/17 04:53 Dose: 4 mg Ondansetron HCl (Zofran Tab) 4 mg PO Q4 PRN PRN Reason: Nausea/Vomiting Pantoprazole Sodium (Protonix Inj) 40 mg IVP Q12 [facility] Last Admin: 11/07/17 21:56 Dose: 40 mg Sevelamer HCl (Renagel) 1,600 mg PO TID [facility] Last Admin: 11/07/17 18:24 Dose: Not Given Tramadol HCl (Ultram) 50 mg PO Q8H PRN PRN Reason: Pain, moderate (4-7) Last Admin: 11/07/17 14:36 Dose: 50 mg Vitamin B Complex/Vit C/Folic Acid (Nephro-Christel) 1 tab PO DAILY [facility] Last Admin: 11/07/17 11:06 Dose: 1 tab - Labs Labs: 11/07/17 06:50 11/07/17 06:50 Attending/Attestation - Attestation I have personally seen and examined this patient.: Yes I have fully participated in the care of the patient.: Yes I have reviewed all pertinent clinical information, including history, physical exam and plan: Yes Notes (Text): 11/08/17 08:52 72 year old male with h/o ESRD on HD, multiple medical problems, HIV with abdominal pain, distention, N/V, found to have high grade distal small bowel obstruction. No obvious etiology identified on CT scan. Supportive care with IV hydration as tolerated. Bowel rest. Consider NG decompression. Appreciate surgical evaluation.
--- NOTE | 2017-11-08 09:05 | PN ---
DATE: 11/07/2017 SUBJECTIVE: I saw him resting in bed this morning. He is having a lot of abdominal pain. He is on Protonix, we will change it to IV and call on GI. He has already been seen by Infectious Disease and by Renal. He has multiple issues, UTI, he had pus come out of his penis the other day, high potassium. He is on dialysis. He went for dialysis yesterday. He has got prostate cancer, end-stage renal disease, anemia, hypertension, HIV, peripheral vascular disease, status post right AKA for severe PVD. He is having abdominal pain and he is uncomfortable. PHYSICAL EXAMINATION: VITAL SIGNS: He had 100.4 temp, 127 pulse, 218/120 blood pressure, and 97% O2 sat on room air. HEENT: Head: Atraumatic, normocephalic. HEART: Regular rate. LUNGS: Decreased breath sounds, but clear. ABDOMEN: Soft. Decreased bowel sounds. Mild tenderness. No guarding or rebound. EXTREMITIES: He has right above knee amputation. LABORATORY DATA: He has a 16.2 white count, when he came in it was 14, bumped up to 17.9, that was dropped to 16.2. Hemoglobin 9.7, hematocrit 29.7, and platelets of 406. He has a 137 sodium, potassium 3.2, was as high as 5.4. He is status post renal dialysis. We will see how he does today. BUN 23, creatinine 4.3, it was as high as 47 and 8.2, calcium is 9, total bili is 0.3, AST is 49, ALT is 26, alkaline phosphatase is 101. We are going to check his labs tomorrow. We will call GI in. IV antibiotics as per Infectious Disease. We will get him out of bed to chair. Increase his Protonix to 40 IV b.i.d. and see what GI has to say about his abdominal discomfort. MEDICATIONS: He is currently on Cozaar for the blood pressure, Tivicay, Epivir, Fergon, heparin, Lopressor, Lovenox, Merrem IV, vitamins, Norvasc for the blood pressure, nystatin, Protonix, Renagel, Tylenol, Ultram, Ziagen, Zofran, and Zyloprim. Parag Brownlee DO [facility]
[2017-11-08 09:49] LABS: HEMOGLOBIN 9.8 g/dL (14.0-18.0); MEAN CELL VOLUME 95.8 fl (80.0-105.0); MEAN CORPUSCULAR HEMOGLOBIN 31.3 pg (25.0-35.0); MEAN CORPUSCULAR HGB CONC 32.7 g/dl (31.0-37.0); MEAN PLATELET VOLUME 9.1 fl (7.0-11.0); RBC 3.13 10^6/uL (3.5-6.1); RED CELL DISTRIBUTION WIDTH 16.8 % (11.5-14.5); WHITE BLOOD COUNT 21.1 10^3/ul (4.5-11.0)
--- NOTE | 2017-11-08 09:58 | PN ---
DATE: SUBJECTIVE: He is now. He is on IV fluids, getting dialysis. He is being seen by GI and Surgery. He had a small bowel obstruction. He is on Dilaudid, Tivicay, Epivir, Fergon, heparin, Lopressor, Lovenox, Merrem IV, Nephro-Christel, Norvasc, nystatin powder, Protonix, Renagel, IV fluids, Tylenol, Ultram, Ziagen, Zofran, Zyloprim. He is in bed. He is alert. He slept fairly well. He is hungry and we cannot let him eat because of his small bowel obstruction. PHYSICAL EXAMINATION: VITAL SIGNS: He had a 99.1 temp, now it is down to 98.1, 84 pulse, 115/64 blood pressure, 19 respiratory rate, 94-97% O2 sat on room air. HEENT: His head is atraumatic, normocephalic. HEART: Regular rate. LUNGS: Decreased breath sounds. ABDOMEN: Soft. Decreased bowel sounds are present. No guarding. No rebound. Mild discomfort. He has had a right AKA and no edema of lower extremity on the left side. LABORATORY DATA: He has a 19.9 white count, 10.2 hemoglobin, 31.7 hematocrit with a 383 platelets that was yesterday's labs. He has a 137 sodium, potassium 4.5, BUN 28, creatinine is 5.5. Last blood sugar is 86. Calcium is 9.5, total bili is 0.5, AST is 47, ALT is 21, alk phos is 129, prostate PSA is less than 0.01. ASSESSMENT AND PLAN: My concern is that his white count went up. He is having a small bowel obstruction. Hopefully, it did not perforate an intestine. CAT scan of abdomen and pelvis showed high-grade distal small-bowel obstruction, right hydronephrosis, hydroureter without distal obstructing lesion, severe thickening of the bladder arreola consistent with cystitis. He was seen by Urology. Awaiting for Gastroenterology to follow. Surgery states n.p.o., IV fluids. Refuses nasogastric tube. We will watch closely. We will check his labs tomorrow. He is here for possible sepsis, small bowel obstruction, urinary tract infection. Parag Brownlee DO [facility] # [id number]
[2017-11-08] MEDS: Multivitamin Vitamin B Complex (Nephro-Vite) Tab PO SCH (10:00)
[2017-11-08] MEDS ORDERED: Meropenem 500 MG in Sodium Chloride 0.9% 50 ML IVPB SCH (10:00)
[2017-11-08 10:07] LABS: ALB/GLOB RATIO 0.7 (1.1-1.8); ALBUMIN 3.1 g/dL (3.0-4.8); CALCIUM 8.9 mg/dL (8.4-10.5)
--- NOTE | 2017-11-08 10:33 | CP.PCM.PN ---
Subjective - Date & Time of Evaluation Date of Evaluation: 11/08/17 Time of Evaluation: 10:30 - Subjective Subjective: Nephrology Consultation Note: Assessment:critical High grade SBO UTI, Hyperkalemia, sepsis. also r/o permacath related infection hx of prostate CA Hypertensive Chronic Kidney Disease (I12.9) ESRD on HD via permacath (TTS) Anemia (D64.9), HTN (I12.9) HIV on HAART, PVD s/p angioplasty s/p Rt AKA Plan plan for HD today as per TTS. nephrovite 1 tab/day. aransep 40 mcg weekly for anemia 11/06/17. PRBC as needed . last Hb 9.8 hold phosphorus binders while pt NPO Hypertension control with meds as ordered. Patient was on RAAS edyta as losartan>>held for now due to BP on low side. also on norvasc and lopressor ID, , Surgery and GI following Dose meds/antibiotics for ESRD status. Avoid fleets enema/magnesium based laxatives. Avoid nephrotoxins/NSAIDs/ iodinated contrast (unless needed emergently) Further work up/management as per primary team. Thanks for allowing me to participate in care of your patient. Will follow patient with you. Please call if any Qs. Dr Yandel Arechiga Office: [phone] CC: abdomen pain reason for consult: ESRD, HTN HPI: Pt is a 72 y/o M with hx of HIV on HAART, PVD s/p angioplasty, Rt AKA, hypertension (10-15 years), ESRD on HD (via permacath) TTS @ [facility] [place], left foot toe amputations, prostate CA presented with groin pain and cloudy urine. being managed for UTI renal consult for ESRD, HTN management pt doesn't feel well. says everything is bothering him as lower ext pain, groin pain. says alcala catheter was removed 2 weeks ago ROS: denies CP/SOB. all other neg except as in HPI. c/o abdomen pain Physical Examination: seen on HD General Appearance: uncomfortable, in no acute respiratory distress, facial muscles wasted Vitals reviewed and noted as below Head; Atraumatic, normocephalic ENT: no ulcers no thrush. Tongue is midline dry. Oropharynx: no rash or ulcers. EYES: Pupils are equal, round and reactive to light accommodation. Eye muscles and extraocular movement intact. Sclera is anicteric. Neck; supple no lymphadenopathy, no thyromegaly or bruit Lungs: Normal respiratory rate/effort. Breath sounds bilateral clear Heart: Normal rate. s1s2 normal. No rub or gallop. Extremities: no edema. No varicose veins. s/p Rt AKA Neurological: Patient is alert oriented x 3 follow commands,. no focal deficit Skin: Warm and dry. Normal turgor. Palpitation: Normal elasticity for age. has inguinal erythematous rash Abdomen: Abdomen is soft. Bowel sounds +. There is epigastric and lower abdominal tenderness with guarding no rigidity no organomegaly Psych: limited insight. flat affect MSK: Digits and nails normal, left foot toe amputations in past. Rt AKA. : kidney not palpable. no inguinal hernia. has dullness over bladder area when percussed Access: permacath and maturing left AVF Labs/imaging/EKG reviewed. Past medical history, past surgical history, family history, social history, allergy reviewed and noted as below Family hx: sister was on dialysis. Rest non-contributory Objective - Vital Signs/Intake and Output Vital Signs (last 24 hours): Temp Pulse Resp BP Pulse Ox 98.1 F 84 19 115/64 94 L 11/08/17 07:30 11/08/17 07:30 11/08/17 07:30 11/08/17 07:30 11/08/17 07:30 Intake and Output: 11/08/17 11/08/17 06:59 18:59 Intake Total 0 Balance 0 - Medications Medications: Current Medications Abacavir Sulfate (Ziagen) 600 mg PO DAILY [facility] PRN Reason: Protocol Last Admin: 11/07/17 11:07 Dose: 600 mg Acetaminophen (Tylenol 325mg Tab) 650 mg PO Q4H PRN PRN Reason: Fever >100.4 F Allopurinol (Zyloprim) 300 mg PO DAILY [facility] Last Admin: 11/07/17 11:07 Dose: 300 mg Amlodipine Besylate (Norvasc) 10 mg PO DAILY [facility] Enoxaparin Sodium (Lovenox) 30 mg SC DAILY [facility] PRN Reason: Protocol Last Admin: 11/07/17 11:10 Dose: 30 mg Ferrous Gluconate (Fergon) 324 mg PO TID [facility] Last Admin: 11/07/17 18:24 Dose: Not Given Heparin Sodium (Porcine) (Heparin) 2,000 units IVP TTS [facility] PRN Reason: Protocol Hydromorphone HCl (Dilaudid) 0.5 mg IVP Q4H PRN PRN Reason: Pain, severe (8-10) Last Admin: 11/08/17 07:48 Dose: 0.5 mg Sodium Chloride (Sodium Chloride 0.9%) 100 mls @ 75 mls/hr IV .Q1H20M [facility] Last Admin: 11/07/17 21:59 Dose: 75 mls/hr Meropenem 500 mg/ Sodium (Chloride) 50 mls @ 100 mls/hr IVPB Q24H [facility] PRN Reason: Protocol Lamivudine (Epivir) 150 mg PO TTS [facility] PRN Reason: Protocol Metoprolol Tartrate (Lopressor) 100 mg PO Q12 [facility] Last Admin: 11/07/17 22:00 Dose: Not Given Non-Formulary Medication (Dolutegravir Sodium [Tivicay]) 50 mg PO DAILY [facility] Last Admin: 11/07/17 18:35 Dose: Not Given Nystatin (Nystop Topical Powder) 0 gm TOP BID [facility] Stop: 11/20/17 13:01 Last Admin: 11/07/17 18:24 Dose: Not Given Ondansetron HCl (Zofran Inj) 4 mg IVP Q4H PRN PRN Reason: Nausea/Vomiting Last Admin: 11/06/17 04:53 Dose: 4 mg Ondansetron HCl (Zofran Tab) 4 mg PO Q4 PRN PRN Reason: Nausea/Vomiting Pantoprazole Sodium (Protonix Inj) 40 mg IVP Q12 [facility] Last Admin: 11/07/17 21:56 Dose: 40 mg Sevelamer HCl (Renagel) 1,600 mg PO TID [facility] Tramadol HCl (Ultram) 50 mg PO Q8H PRN PRN Reason: Pain, moderate (4-7) Last Admin: 11/07/17 14:36 Dose: 50 mg Vitamin B Complex/Vit C/Folic Acid (Nephro-Christel) 1 tab PO DAILY [facility] Last Admin: 11/07/17 11:06 Dose: 1 tab - Labs Labs: 11/08/17 09:30 11/08/17 09:30
--- NOTE | 2017-11-08 11:45 | CP.PCM.PN ---
Subjective - Date & Time of Evaluation Date of Evaluation: 11/08/17 Time of Evaluation: 07:15 - Subjective Subjective: Patient seen and examined. Denies passing flatus. Patient reports feeling some distension. Objective - Vital Signs/Intake and Output Vital Signs (last 24 hours): Temp Pulse Resp BP Pulse Ox 98.1 F 84 19 115/64 94 L 11/08/17 07:30 11/08/17 07:30 11/08/17 07:30 11/08/17 07:30 11/08/17 07:30 Intake and Output: 11/08/17 11/08/17 06:59 18:59 Intake Total 0 Balance 0 - Medications Medications: Current Medications Abacavir Sulfate (Ziagen) 600 mg PO DAILY [facility] PRN Reason: Protocol Last Admin: 11/07/17 11:07 Dose: 600 mg Acetaminophen (Tylenol 325mg Tab) 650 mg PO Q4H PRN PRN Reason: Fever >100.4 F Allopurinol (Zyloprim) 300 mg PO DAILY [facility] Last Admin: 11/07/17 11:07 Dose: 300 mg Amlodipine Besylate (Norvasc) 10 mg PO DAILY [facility] Enoxaparin Sodium (Lovenox) 30 mg SC DAILY [facility] PRN Reason: Protocol Last Admin: 11/07/17 11:10 Dose: 30 mg Ferrous Gluconate (Fergon) 324 mg PO TID [facility] Last Admin: 11/07/17 18:24 Dose: Not Given Heparin Sodium (Porcine) (Heparin) 2,000 units IVP TTS [facility] PRN Reason: Protocol Hydromorphone HCl (Dilaudid) 0.5 mg IVP Q4H PRN PRN Reason: Pain, severe (8-10) Last Admin: 11/08/17 07:48 Dose: 0.5 mg Sodium Chloride (Sodium Chloride 0.9%) 100 mls @ 75 mls/hr IV .Q1H20M [facility] Last Admin: 11/07/17 21:59 Dose: 75 mls/hr Meropenem 500 mg/ Sodium (Chloride) 50 mls @ 100 mls/hr IVPB Q24H [facility] PRN Reason: Protocol Lamivudine (Epivir) 150 mg PO TTS [facility] PRN Reason: Protocol Metoprolol Tartrate (Lopressor) 100 mg PO Q12 [facility] Last Admin: 11/07/17 22:00 Dose: Not Given Non-Formulary Medication (Dolutegravir Sodium [Tivicay]) 50 mg PO DAILY [facility] Last Admin: 11/07/17 18:35 Dose: Not Given Nystatin (Nystop Topical Powder) 0 gm TOP BID [facility] Stop: 11/20/17 13:01 Last Admin: 11/07/17 18:24 Dose: Not Given Ondansetron HCl (Zofran Inj) 4 mg IVP Q4H PRN PRN Reason: Nausea/Vomiting Last Admin: 11/06/17 04:53 Dose: 4 mg Ondansetron HCl (Zofran Tab) 4 mg PO Q4 PRN PRN Reason: Nausea/Vomiting Pantoprazole Sodium (Protonix Inj) 40 mg IVP Q12 [facility] Last Admin: 11/07/17 21:56 Dose: 40 mg Sevelamer HCl (Renagel) 1,600 mg PO TID [facility] Tramadol HCl (Ultram) 50 mg PO Q8H PRN PRN Reason: Pain, moderate (4-7) Last Admin: 11/07/17 14:36 Dose: 50 mg Vitamin B Complex/Vit C/Folic Acid (Nephro-Christel) 1 tab PO DAILY [facility] Last Admin: 11/07/17 11:06 Dose: 1 tab - Labs Labs: 11/08/17 09:30 11/08/17 09:30 - Constitutional Appears: No Acute Distress - Head Exam Head Exam: NORMOCEPHALIC - Eye Exam Eye Exam: Normal appearance - ENT Exam ENT Exam: Normal Exam - Respiratory Exam Respiratory Exam: NORMAL BREATHING PATTERN - Cardiovascular Exam Cardiovascular Exam: +S1, +S2 - GI/Abdominal Exam GI & Abdominal Exam: Soft Additional comments: reducible umbilical hernia - Neurological Exam Neurological Exam: Alert, Awake, Oriented x3 - Psychiatric Exam Psychiatric exam: Normal Mood - Skin Skin Exam: Normal Color, Warm Assessment and Plan - Assessment and Plan (Free Text) Assessment: 72M w/ SBO -F/u Abd Xray -Conservative management -Will continue to follow D/w Dr. Juan Shelley PGY2
[2017-11-08] MEDS: Enoxaparin 30 mg Syringe SC SCH (14:40)
[2017-11-08] MEDS: Meropenem 500 MG in Sodium Chloride 0.9% 50 ML IVPB SCH (14:43)
--- NOTE | 2017-11-08 15:01 | RAD ---
HISTORY: SBO COMPARISON: No prior. FINDINGS: BOWEL: Severe small bowel obstruction. Multiple dilated loops of small bowel BONES: Normal. OTHER FINDINGS: None. IMPRESSION: Severe small bowel obstruction
[2017-11-08 15:51] LABS: PH,URINE 7.5 (4.7-8.0); URINE BILIRUBIN NEGATIVE (NEGATIVE); URINE BLOOD LARGE (NEGATIVE); URINE GLUCOSE (UA) NEGATIVE (NEGATIVE); URINE LEUKOCYTE ESTERASE MODERATE Leu/uL (NEGATIVE); URINE PROTEIN >=300 mg/dL (<30 mg/dL); URINE UROBILINOGEN 0.2 E.U./dL (<1 E.U./dL)
[2017-11-08 15:53] LABS: URINE APPEARANCE TURBID (CLEAR); URINE COLOR YELLOW (YELLOW)
[2017-11-08 15:54] LABS: URINE BACTERIA MANY (NEG); URINE WBC TNTC /hpf (0-6)
--- NOTE | 2017-11-08 16:31 | CP.PCM.PN ---
Subjective - Date & Time of Evaluation Date of Evaluation: 11/08/17 Time of Evaluation: 09:00 - Subjective Subjective: Still having some abdominal discomfort, no fevers. Objective - Vital Signs/Intake and Output Vital Signs (last 24 hours): Temp Pulse Resp BP Pulse Ox 98.1 F 84 19 115/64 94 L 11/08/17 07:30 11/08/17 07:30 11/08/17 07:30 11/08/17 07:30 11/08/17 07:30 Intake and Output: 11/08/17 11/08/17 06:59 18:59 Intake Total 0 Balance 0 - Medications Medications: Current Medications Abacavir Sulfate (Ziagen) 600 mg PO DAILY [facility] PRN Reason: Protocol Last Admin: 11/07/17 11:07 Dose: 600 mg Acetaminophen (Tylenol 325mg Tab) 650 mg PO Q4H PRN PRN Reason: Fever >100.4 F Allopurinol (Zyloprim) 300 mg PO DAILY [facility] Last Admin: 11/07/17 11:07 Dose: 300 mg Amlodipine Besylate (Norvasc) 10 mg PO DAILY [facility] Enoxaparin Sodium (Lovenox) 30 mg SC DAILY [facility] PRN Reason: Protocol Last Admin: 11/07/17 11:10 Dose: 30 mg Ferrous Gluconate (Fergon) 324 mg PO TID [facility] Last Admin: 11/07/17 18:24 Dose: Not Given Heparin Sodium (Porcine) (Heparin) 2,000 units IVP TTS [facility] PRN Reason: Protocol Hydromorphone HCl (Dilaudid) 0.5 mg IVP Q4H PRN PRN Reason: Pain, severe (8-10) Last Admin: 11/08/17 07:48 Dose: 0.5 mg Sodium Chloride (Sodium Chloride 0.9%) 100 mls @ 75 mls/hr IV .Q1H20M [facility] Last Admin: 11/07/17 21:59 Dose: 75 mls/hr Meropenem 500 mg/ Sodium (Chloride) 50 mls @ 100 mls/hr IVPB Q12 [facility] PRN Reason: Protocol Stop: 11/15/17 10:01 Lamivudine (Epivir) 150 mg PO TTS [facility] PRN Reason: Protocol Metoprolol Tartrate (Lopressor) 100 mg PO Q12 [facility] Last Admin: 11/07/17 22:00 Dose: Not Given Non-Formulary Medication (Dolutegravir Sodium [Tivicay]) 50 mg PO DAILY [facility] Last Admin: 11/07/17 18:35 Dose: Not Given Nystatin (Nystop Topical Powder) 0 gm TOP BID [facility] Stop: 11/20/17 13:01 Last Admin: 11/07/17 18:24 Dose: Not Given Ondansetron HCl (Zofran Inj) 4 mg IVP Q4H PRN PRN Reason: Nausea/Vomiting Last Admin: 11/06/17 04:53 Dose: 4 mg Ondansetron HCl (Zofran Tab) 4 mg PO Q4 PRN PRN Reason: Nausea/Vomiting Pantoprazole Sodium (Protonix Inj) 40 mg IVP Q12 [facility] Last Admin: 11/07/17 21:56 Dose: 40 mg Sevelamer HCl (Renagel) 1,600 mg PO TID [facility] Last Admin: 11/07/17 18:24 Dose: Not Given Tramadol HCl (Ultram) 50 mg PO Q8H PRN PRN Reason: Pain, moderate (4-7) Last Admin: 11/07/17 14:36 Dose: 50 mg Vitamin B Complex/Vit C/Folic Acid (Nephro-Christel) 1 tab PO DAILY [facility] Last Admin: 11/07/17 11:06 Dose: 1 tab - Labs Labs: 11/07/17 06:50 11/07/17 06:50 - Constitutional Appears: Chronically Ill - Head Exam Head Exam: NORMAL INSPECTION - ENT Exam ENT Exam: Mucous Membranes Moist - Neck Exam Neck Exam: absent: Meningismus - Respiratory Exam Respiratory Exam: Decreased Breath Sounds - Cardiovascular Exam Cardiovascular Exam: +S1, +S2 - GI/Abdominal Exam GI & Abdominal Exam: Distended, Soft, Tenderness (some tenderness noted). absent: Guarding, Rigid, Rebound Assessment and Plan - Assessment and Plan (Free Text) Plan: Assessment sepsis due to UTI with cystitis on top of small bowel obstruction severe PAD S/P angioplasty of the left tibial artery S/P right AKA UTI with MRSA and Strep viridans systemic viral illness with Influenza history of left foot 3rd digit chronic osteomyelitis S/P amputation and debridement right sided nephrolithiasis history of severe sepsis with acute on chronic renal failure probably due to pyelonephritis with E. coli bacteremia history of C. diff. associated diarrhea Charcot foot, left history of left 2nd toe dry gangrene Chronic renal failure on hemodialysis HTN prostate CA HIV ([facility] at [facility] [place] 03/2016 349 and virus load < 1.3 log) history of osteomyelitis of left first toe S/P amputation (2015) gout history of left foot ulcers Plan continue Merrem and given a dose of IV Vancomycin (Day 3 )pending urine and blood cx; PSA levels are normal continue antiretroviral therapy (lamivudine, abacavir on formulary but dolutegravir should be taken by patient from his home supply) reviewed CT A/P - follow up plans of GI and Surgery overall prognosis is poor
[2017-11-08] MEDS: Non Formulary Medication (Dolutegravir Sodium [Tivicay] 50 MG) PO SCH (17:10)
[2017-11-08] MEDS: Dextrose 5%/0.45% NS 1,000 ML IV SCH (18:22)
[2017-11-08] MEDS: Nystatin 100,000 Units/gm Topical Pow(15 gm) TOP SCH ×2 (18:22)
[2017-11-09] MEDS: HYDROmorphone 0.5 mg/0.5 ml ISec IVP PRN ×2 (04:43→11:13)
[2017-11-09 07:38] LABS: HEMOGLOBIN 10.2 g/dL (14.0-18.0); MEAN CELL VOLUME 98.5 fl (80.0-105.0); MEAN CORPUSCULAR HEMOGLOBIN 31.1 pg (25.0-35.0); MEAN CORPUSCULAR HGB CONC 31.6 g/dl (31.0-37.0); MEAN PLATELET VOLUME 9.5 fl (7.0-11.0); RBC 3.28 10^6/uL (3.5-6.1); WHITE BLOOD COUNT 16.5 10^3/ul (4.5-11.0)
[2017-11-09 07:58] LABS: ALB/GLOB RATIO 0.7 (1.1-1.8); ALBUMIN 3.1 g/dL (3.0-4.8); CALCIUM 9.2 mg/dL (8.4-10.5)
--- NOTE | 2017-11-09 09:02 | CP.PCM.PN ---
Subjective - Date & Time of Evaluation Date of Evaluation: 11/09/17 Time of Evaluation: 08:57 - Subjective Subjective: Surgery Progress Note: Patient seen and examined at bedside. No acute events overnight. Pt reports that abdominal pain is improving. Denies nausea, vomiting, fever, chills. Pt not passing flatus, no BM yet. Objective - Vital Signs/Intake and Output Vital Signs (last 24 hours): Temp Pulse Resp BP Pulse Ox 97.7 F 94 H 20 118/62 99 11/09/17 07:30 11/09/17 07:30 11/09/17 07:30 11/09/17 07:30 11/09/17 07:30 Intake and Output: 11/09/17 11/09/17 06:59 18:59 Intake Total 240 Output Total 0 Balance 240 - Medications Medications: Current Medications Abacavir Sulfate (Ziagen) 600 mg PO DAILY [facility] PRN Reason: Protocol Last Admin: 11/08/17 16:57 Dose: Not Given Acetaminophen (Tylenol 325mg Tab) 650 mg PO Q4H PRN PRN Reason: Fever >100.4 F Allopurinol (Zyloprim) 300 mg PO DAILY [facility] Last Admin: 11/08/17 16:58 Dose: Not Given Amlodipine Besylate (Norvasc) 10 mg PO DAILY [facility] Last Admin: 11/08/17 14:40 Dose: Not Given Docusate Sodium (Colace Liquid) 100 mg PO TID [facility] Last Admin: 11/08/17 18:33 Dose: 100 mg Enoxaparin Sodium (Lovenox) 30 mg SC DAILY [facility] PRN Reason: Protocol Last Admin: 11/08/17 14:40 Dose: 30 mg Ferrous Gluconate (Fergon) 324 mg PO TID [facility] Last Admin: 11/08/17 17:14 Dose: Not Given Heparin Sodium (Porcine) (Heparin) 2,000 units IVP TTS [facility] PRN Reason: Protocol Last Admin: 11/08/17 17:00 Dose: Not Given Hydromorphone HCl (Dilaudid) 0.5 mg IVP Q4H PRN PRN Reason: Pain, severe (8-10) Last Admin: 11/09/17 04:43 Dose: 0.5 mg Meropenem 500 mg/ Sodium (Chloride) 50 mls @ 100 mls/hr IVPB Q24H [facility] PRN Reason: Protocol Last Admin: 11/08/17 14:43 Dose: 100 mls/hr Dextrose/Sodium Chloride (Dextrose 5%/0.45% Ns 1000 Ml) 1,000 mls @ 75 mls/hr IV .[id number] [facility] Last Admin: 11/08/17 18:22 Dose: 75 mls/hr Lamivudine (Epivir) 150 mg PO TTS [facility] PRN Reason: Protocol Last Admin: 11/08/17 14:40 Dose: Not Given Metoprolol Tartrate (Lopressor) 100 mg PO Q12 [facility] Last Admin: 11/08/17 22:43 Dose: 100 mg Non-Formulary Medication (Dolutegravir Sodium [Tivicay]) 50 mg PO DAILY [facility] Last Admin: 11/08/17 17:10 Dose: Not Given Nystatin (Nystop Topical Powder) 0 gm TOP BID [facility] Stop: 11/20/17 13:01 Last Admin: 11/08/17 18:22 Dose: 1 applic Ondansetron HCl (Zofran Inj) 4 mg IVP Q4H PRN PRN Reason: Nausea/Vomiting Last Admin: 11/06/17 04:53 Dose: 4 mg Ondansetron HCl (Zofran Tab) 4 mg PO Q4 PRN PRN Reason: Nausea/Vomiting Pantoprazole Sodium (Protonix Inj) 40 mg IVP Q12 [facility] Last Admin: 11/08/17 22:40 Dose: 40 mg Sevelamer HCl (Renagel) 1,600 mg PO TID [facility] Last Admin: 11/08/17 18:28 Dose: 1,600 mg Tramadol HCl (Ultram) 50 mg PO Q8H PRN PRN Reason: Pain, moderate (4-7) Last Admin: 11/08/17 20:16 Dose: 50 mg Vitamin B Complex/Vit C/Folic Acid (Nephro-Christel) 1 tab PO DAILY [facility] Last Admin: 11/08/17 10:00 Dose: Not Given - Labs Labs: 11/09/17 06:30 11/09/17 06:30 - Constitutional Appears: Non-toxic, No Acute Distress - Head Exam Head Exam: ATRAUMATIC, NORMOCEPHALIC - Eye Exam Eye Exam: EOMI, PERRL. absent: Conjunctival injection, Scleral icterus Pupil Exam: NORMAL ACCOMODATION, PERRL. absent: Fixed, Irregular, Unequal - ENT Exam ENT Exam: Mucous Membranes Moist - Neck Exam Neck Exam: Full ROM - Respiratory Exam Respiratory Exam: Clear to Ausculation Bilateral, NORMAL BREATHING PATTERN. absent: Chest Wall Tenderness, Rhonchi, Wheezes - Cardiovascular Exam Cardiovascular Exam: RRR, +S1, +S2. absent: Murmur - GI/Abdominal Exam GI & Abdominal Exam: Soft, Tenderness (diffusely TTP, improving ). absent: Firm , Guarding, Mass, Organomegaly, Rebound - Back Exam Back Exam: NORMAL INSPECTION - Neurological Exam Neurological Exam: Alert, Awake, Oriented x3 - Psychiatric Exam Psychiatric exam: Normal Affect, Normal Mood - Skin Skin Exam: Dry, Normal Color, Warm Assessment and Plan - Assessment and Plan (Free Text) Assessment: 72M with small bowel distension likely 2/2 to small bowel ileus: - maintain on CLD. Advance as tolerated. - Maintain electrolytes WNL - UA + UTI, started on Merrem. Cont with medical management as per primary team. - will discuss with Dr Martinez.
--- NOTE | 2017-11-09 09:24 | CP.PCM.PN ---
Subjective - Date & Time of Evaluation Date of Evaluation: 11/09/17 Time of Evaluation: 09:19 - Subjective Subjective: I have seen and examined patient. No acute events overnight, he is seen resting in bed. No bowel movements overnight, no flatus. He continues to endorse sharp generalized abdominal pain but denies nausea, vomiting, fever/ chills. He was able to tolerate small amounts of PO liquid. Review of vitals from today shows tachycardia. 12 point review of systems performed, negative aside from mentioned above. Objective - Vital Signs/Intake and Output Vital Signs (last 24 hours): Temp Pulse Resp BP Pulse Ox 97.7 F 94 H 20 118/62 99 11/09/17 07:30 11/09/17 07:30 11/09/17 07:30 11/09/17 07:30 11/09/17 07:30 Intake and Output: 11/09/17 11/09/17 06:59 18:59 Intake Total 240 Output Total 0 Balance 240 - Medications Medications: Current Medications Abacavir Sulfate (Ziagen) 600 mg PO DAILY [facility] PRN Reason: Protocol Last Admin: 11/08/17 16:57 Dose: Not Given Acetaminophen (Tylenol 325mg Tab) 650 mg PO Q4H PRN PRN Reason: Fever >100.4 F Allopurinol (Zyloprim) 300 mg PO DAILY [facility] Last Admin: 11/08/17 16:58 Dose: Not Given Amlodipine Besylate (Norvasc) 10 mg PO DAILY [facility] Last Admin: 11/08/17 14:40 Dose: Not Given Docusate Sodium (Colace Liquid) 100 mg PO TID [facility] Last Admin: 11/08/17 18:33 Dose: 100 mg Enoxaparin Sodium (Lovenox) 30 mg SC DAILY [facility] PRN Reason: Protocol Last Admin: 11/08/17 14:40 Dose: 30 mg Ferrous Gluconate (Fergon) 324 mg PO TID [facility] Last Admin: 11/08/17 17:14 Dose: Not Given Heparin Sodium (Porcine) (Heparin) 2,000 units IVP TTS [facility] PRN Reason: Protocol Last Admin: 11/08/17 17:00 Dose: Not Given Hydromorphone HCl (Dilaudid) 0.5 mg IVP Q4H PRN PRN Reason: Pain, severe (8-10) Last Admin: 11/09/17 04:43 Dose: 0.5 mg Meropenem 500 mg/ Sodium (Chloride) 50 mls @ 100 mls/hr IVPB Q24H [facility] PRN Reason: Protocol Last Admin: 11/08/17 14:43 Dose: 100 mls/hr Dextrose/Sodium Chloride (Dextrose 5%/0.45% Ns 1000 Ml) 1,000 mls @ 75 mls/hr IV .[id number] [facility] Last Admin: 11/08/17 18:22 Dose: 75 mls/hr Lamivudine (Epivir) 150 mg PO TTS [facility] PRN Reason: Protocol Last Admin: 11/08/17 14:40 Dose: Not Given Metoprolol Tartrate (Lopressor) 100 mg PO Q12 [facility] Last Admin: 11/08/17 22:43 Dose: 100 mg Non-Formulary Medication (Dolutegravir Sodium [Tivicay]) 50 mg PO DAILY [facility] Last Admin: 11/08/17 17:10 Dose: Not Given Nystatin (Nystop Topical Powder) 0 gm TOP BID [facility] Stop: 11/20/17 13:01 Last Admin: 11/08/17 18:22 Dose: 1 applic Ondansetron HCl (Zofran Inj) 4 mg IVP Q4H PRN PRN Reason: Nausea/Vomiting Last Admin: 11/06/17 04:53 Dose: 4 mg Ondansetron HCl (Zofran Tab) 4 mg PO Q4 PRN PRN Reason: Nausea/Vomiting Pantoprazole Sodium (Protonix Inj) 40 mg IVP Q12 [facility] Last Admin: 11/08/17 22:40 Dose: 40 mg Sevelamer HCl (Renagel) 1,600 mg PO TID [facility] Last Admin: 11/08/17 18:28 Dose: 1,600 mg Tramadol HCl (Ultram) 50 mg PO Q8H PRN PRN Reason: Pain, moderate (4-7) Last Admin: 11/08/17 20:16 Dose: 50 mg Vitamin B Complex/Vit C/Folic Acid (Nephro-Christel) 1 tab PO DAILY [facility] Last Admin: 11/08/17 10:00 Dose: Not Given - Labs Labs: 11/09/17 06:30 11/09/17 06:30 - Constitutional Appears: No Acute Distress, Chronically Ill - Eye Exam Eye Exam: EOMI, Normal appearance - ENT Exam ENT Exam: Mucous Membranes Moist - Respiratory Exam Respiratory Exam: Clear to Ausculation Bilateral - Cardiovascular Exam Cardiovascular Exam: REGULAR RHYTHM, +S1, +S2 - GI/Abdominal Exam GI & Abdominal Exam: Tenderness, Hypoactive Bowel Sounds Additional comments: generalized tenderness to palpation +umbilical hernia - Extremities Exam Additional comments: R BKA - Skin Skin Exam: Dry, Intact, Normal Color, Warm Assessment and Plan - Assessment and Plan (Free Text) Assessment: ESRD on HD HIV PVD s/p R BKA UTI Abdominal pain - small bowel obstruction Plan: - AXR reviewed by me showing SBO with multiple dilated loops, air/fluid levels - Suggest NGT decompression - Continue with antibiotic therapy - Follow up surgical recommendations - No planned GI intervention, further plan as per surgical team. Will sign off case, please reconsult as necessary, thank you.
[2017-11-09] MEDS: Enoxaparin 30 mg Syringe SC SCH (09:30)
[2017-11-09] MEDS: Multivitamin Vitamin B Complex (Nephro-Vite) Tab PO SCH (09:30)
[2017-11-09] MEDS: Non Formulary Medication (Dolutegravir Sodium [Tivicay] 50 MG) PO SCH (11:14)
[2017-11-09] MEDS: Meropenem 500 MG in Sodium Chloride 0.9% 50 ML IVPB SCH (13:13)
[2017-11-09] MEDS: Nystatin 100,000 Units/gm Topical Pow(15 gm) TOP SCH ×2 (13:14→17:08)
--- NOTE | 2017-11-09 14:10 | CP.PCM.PN ---
Subjective - Date & Time of Evaluation Date of Evaluation: 11/09/17 Time of Evaluation: 12:20 - Subjective Subjective: Still with abdominal discomfort, but less, trying some soup but still with some discomfort, no diarrhea, no vomiting, no fevers. Objective - Vital Signs/Intake and Output Vital Signs (last 24 hours): Temp Pulse Resp BP Pulse Ox 97.7 F 94 H 20 118/62 99 11/09/17 07:30 11/09/17 09:29 11/09/17 07:30 11/09/17 09:31 11/09/17 07:30 Intake and Output: 11/09/17 11/09/17 06:59 18:59 Intake Total 240 Output Total 0 Balance 240 - Medications Medications: Current Medications Abacavir Sulfate (Ziagen) 600 mg PO DAILY [facility] PRN Reason: Protocol Last Admin: 11/09/17 09:35 Dose: 600 mg Acetaminophen (Tylenol 325mg Tab) 650 mg PO Q4H PRN PRN Reason: Fever >100.4 F Allopurinol (Zyloprim) 300 mg PO DAILY [facility] Last Admin: 11/09/17 09:35 Dose: 300 mg Amlodipine Besylate (Norvasc) 10 mg PO DAILY [facility] Last Admin: 11/09/17 09:31 Dose: 10 mg Docusate Sodium (Colace Liquid) 100 mg PO TID [facility] Last Admin: 11/09/17 09:27 Dose: 100 mg Enoxaparin Sodium (Lovenox) 30 mg SC DAILY [facility] PRN Reason: Protocol Last Admin: 11/09/17 09:30 Dose: 30 mg Ferrous Gluconate (Fergon) 324 mg PO TID [facility] Last Admin: 11/09/17 09:28 Dose: 324 mg Heparin Sodium (Porcine) (Heparin) 2,000 units IVP TTS [facility] PRN Reason: Protocol Last Admin: 11/08/17 17:00 Dose: Not Given Hydromorphone HCl (Dilaudid) 0.5 mg IVP Q4H PRN PRN Reason: Pain, severe (8-10) Last Admin: 11/09/17 04:43 Dose: 0.5 mg Meropenem 500 mg/ Sodium (Chloride) 50 mls @ 100 mls/hr IVPB Q24H [facility] PRN Reason: Protocol Last Admin: 11/08/17 14:43 Dose: 100 mls/hr Dextrose/Sodium Chloride (Dextrose 5%/0.45% Ns 1000 Ml) 1,000 mls @ 75 mls/hr IV .[id number] [facility] Last Admin: 11/08/17 18:22 Dose: 75 mls/hr Lamivudine (Epivir) 150 mg PO TTS [facility] PRN Reason: Protocol Last Admin: 11/08/17 14:40 Dose: Not Given Metoprolol Tartrate (Lopressor) 100 mg PO Q12 [facility] Last Admin: 11/09/17 09:29 Dose: 100 mg Non-Formulary Medication (Dolutegravir Sodium [Tivicay]) 50 mg PO DAILY [facility] Last Admin: 11/08/17 17:10 Dose: Not Given Nystatin (Nystop Topical Powder) 0 gm TOP BID [facility] Stop: 11/20/17 13:01 Last Admin: 11/08/17 18:22 Dose: 1 applic Ondansetron HCl (Zofran Inj) 4 mg IVP Q4H PRN PRN Reason: Nausea/Vomiting Last Admin: 11/06/17 04:53 Dose: 4 mg Ondansetron HCl (Zofran Tab) 4 mg PO Q4 PRN PRN Reason: Nausea/Vomiting Pantoprazole Sodium (Protonix Inj) 40 mg IVP Q12 [facility] Last Admin: 11/09/17 09:31 Dose: 40 mg Sevelamer HCl (Renagel) 1,600 mg PO TID [facility] Last Admin: 11/09/17 09:33 Dose: 1,600 mg Tramadol HCl (Ultram) 50 mg PO Q8H PRN PRN Reason: Pain, moderate (4-7) Last Admin: 11/08/17 20:16 Dose: 50 mg Vitamin B Complex/Vit C/Folic Acid (Nephro-Christel) 1 tab PO DAILY [facility] Last Admin: 11/09/17 09:30 Dose: 1 tab - Labs Labs: 11/09/17 06:30 11/09/17 06:30 - Constitutional Appears: Chronically Ill - Head Exam Head Exam: NORMAL INSPECTION - ENT Exam ENT Exam: Mucous Membranes Moist - Neck Exam Neck Exam: absent: Meningismus - Respiratory Exam Respiratory Exam: Decreased Breath Sounds - Cardiovascular Exam Cardiovascular Exam: +S1, +S2 - GI/Abdominal Exam GI & Abdominal Exam: Soft. absent: Tenderness - Extremities Exam Additional comments: right AKA stump clean and intact Assessment and Plan - Assessment and Plan (Free Text) Plan: Assessment sepsis due to UTI with cystitis on top of small bowel obstruction severe PAD S/P angioplasty of the left tibial artery S/P right AKA UTI with MRSA and Strep viridans systemic viral illness with Influenza history of left foot 3rd digit chronic osteomyelitis S/P amputation and debridement right sided nephrolithiasis history of severe sepsis with acute on chronic renal failure probably due to pyelonephritis with E. coli bacteremia history of C. diff. associated diarrhea Charcot foot, left history of left 2nd toe dry gangrene Chronic renal failure on hemodialysis HTN prostate CA HIV (patient goes to the ID with last CD4 count here at [facility] [place] 03/2016 349 and virus load < 1.3 log) history of osteomyelitis of left first toe S/P amputation (2015) gout history of left foot ulcers Plan continue Merrem and given a dose of IV Vancomycin (Day 4) pending urine cx; blood cx are negative; PSA levels are normal continue antiretroviral therapy (lamivudine, abacavir on formulary but dolutegravir should be taken by patient from his home supply) reviewed CT A/P - follow up plans of GI and Surgery overall prognosis is poor
[2017-11-09] MEDS: Dextrose 5%/0.45% NS 1,000 ML IV SCH (22:21)
[2017-11-10] MEDS: HYDROmorphone 0.5 mg/0.5 ml ISec IVP PRN (01:59)
--- NOTE | 2017-11-10 07:39 | CP.PCM.PN ---
Addendum entered and electronically signed by Terry Velásquez DO 11/10/17 10:34: f/u CT w po contrast. Will attempt NGT. Pt has refused before. NPO Original Note: Subjective - Date & Time of Evaluation Date of Evaluation: 11/10/17 Time of Evaluation: 07:33 - Subjective Subjective: Surgery: Dr. Martinez Pt seen and examined. No acute events overnight. States he feels ok this morning but still hasn't had a bowel movement or passed flatus. Admits to tolerating liquids w/o any N/V. Denies F/C. Objective - Vital Signs/Intake and Output Vital Signs (last 24 hours): Temp Pulse Resp BP Pulse Ox 98.6 F 83 20 131/71 99 11/09/17 22:00 11/09/17 22:27 11/09/17 22:00 11/09/17 22:27 11/09/17 22:00 Intake and Output: 11/10/17 11/10/17 06:59 18:59 Intake Total 0 Balance 0 - Medications Medications: Current Medications Abacavir Sulfate (Ziagen) 600 mg PO DAILY [facility] PRN Reason: Protocol Last Admin: 11/09/17 09:35 Dose: 600 mg Acetaminophen (Tylenol 325mg Tab) 650 mg PO Q4H PRN PRN Reason: Fever >100.4 F Allopurinol (Zyloprim) 300 mg PO DAILY [facility] Last Admin: 11/09/17 09:35 Dose: 300 mg Amlodipine Besylate (Norvasc) 10 mg PO DAILY [facility] Last Admin: 11/09/17 09:31 Dose: 10 mg Docusate Sodium (Colace Liquid) 100 mg PO TID [facility] Last Admin: 11/09/17 17:06 Dose: 100 mg Enoxaparin Sodium (Lovenox) 30 mg SC DAILY [facility] PRN Reason: Protocol Last Admin: 11/09/17 09:30 Dose: 30 mg Ferrous Gluconate (Fergon) 324 mg PO TID [facility] Last Admin: 11/09/17 17:07 Dose: 324 mg Heparin Sodium (Porcine) (Heparin) 2,000 units IVP TTS [facility] PRN Reason: Protocol Last Admin: 11/08/17 17:00 Dose: Not Given Hydromorphone HCl (Dilaudid) 0.5 mg IVP Q4H PRN PRN Reason: Pain, severe (8-10) Last Admin: 11/10/17 01:59 Dose: 0.5 mg Meropenem 500 mg/ Sodium (Chloride) 50 mls @ 100 mls/hr IVPB Q24H [facility] PRN Reason: Protocol Last Admin: 11/09/17 13:13 Dose: 100 mls/hr Dextrose/Sodium Chloride (Dextrose 5%/0.45% Ns 1000 Ml) 1,000 mls @ 75 mls/hr IV .[id number] [facility] Last Admin: 11/09/17 22:21 Dose: 75 mls/hr Lamivudine (Epivir) 150 mg PO TTS [facility] PRN Reason: Protocol Last Admin: 11/08/17 14:40 Dose: Not Given Metoprolol Tartrate (Lopressor) 100 mg PO Q12 [facility] Last Admin: 11/09/17 22:27 Dose: 100 mg Non-Formulary Medication (Dolutegravir Sodium [Tivicay]) 50 mg PO DAILY [facility] Last Admin: 11/09/17 11:14 Dose: Not Given Nystatin (Nystop Topical Powder) 0 gm TOP BID [facility] Stop: 11/20/17 13:01 Last Admin: 11/09/17 17:08 Dose: 1 applic Ondansetron HCl (Zofran Inj) 4 mg IVP Q4H PRN PRN Reason: Nausea/Vomiting Last Admin: 11/06/17 04:53 Dose: 4 mg Ondansetron HCl (Zofran Tab) 4 mg PO Q4 PRN PRN Reason: Nausea/Vomiting Pantoprazole Sodium (Protonix Inj) 40 mg IVP Q12 [facility] Last Admin: 11/09/17 22:28 Dose: 40 mg Sevelamer HCl (Renagel) 1,600 mg PO TID [facility] Last Admin: 11/09/17 17:08 Dose: 1,600 mg Sodium Phosphate (Fleet Enema) 135 ml RC ONCE ONE Stop: 11/10/17 07:32 Tramadol HCl (Ultram) 50 mg PO Q8H PRN PRN Reason: Pain, moderate (4-7) Last Admin: 11/08/17 20:16 Dose: 50 mg Vitamin B Complex/Vit C/Folic Acid (Nephro-Christel) 1 tab PO DAILY [facility] Last Admin: 11/09/17 09:30 Dose: 1 tab - Labs Labs: 11/09/17 06:30 11/09/17 06:30 - Constitutional Appears: Well, No Acute Distress - Head Exam Head Exam: ATRAUMATIC, NORMOCEPHALIC - ENT Exam ENT Exam: Mucous Membranes Moist - Respiratory Exam Respiratory Exam: NORMAL BREATHING PATTERN - Cardiovascular Exam Cardiovascular Exam: RRR - GI/Abdominal Exam GI & Abdominal Exam: Distended (slightly ), Soft, Tenderness (generalized ) - Neurological Exam Neurological Exam: Alert, Awake, Oriented x3 - Skin Skin Exam: Dry, Warm Assessment and Plan - Assessment and Plan (Free Text) Assessment: 72M with SBO Plan: - fleet enema to help open up pt from below - pt is tolerating liquids and has denied an NGT - cont serial abdominal exams - will cont to monitor pt closely - if no improvement in symptoms, pt may need OR - d/w Dr. Juan Borja, PGY-3
[2017-11-10 08:44] LABS: HEMOGLOBIN 10.4 g/dL (14.0-18.0); MEAN CELL VOLUME 96.4 fl (80.0-105.0); MEAN CORPUSCULAR HEMOGLOBIN 31.1 pg (25.0-35.0); MEAN CORPUSCULAR HGB CONC 32.3 g/dl (31.0-37.0); MEAN PLATELET VOLUME 9.5 fl (7.0-11.0); RBC 3.34 10^6/uL (3.5-6.1); WHITE BLOOD COUNT 17.6 10^3/ul (4.5-11.0)
[2017-11-10 08:58] LABS: ALB/GLOB RATIO 0.8 (1.1-1.8); CALCIUM 9.3 mg/dL (8.4-10.5)
[2017-11-10] MEDS: Non Formulary Medication (Dolutegravir Sodium [Tivicay] 50 MG) PO SCH (10:01)
[2017-11-10] MEDS: Enoxaparin 30 mg Syringe SC SCH (10:02)
[2017-11-10] MEDS: Nystatin 100,000 Units/gm Topical Pow(15 gm) TOP SCH ×2 (10:02→18:44)
[2017-11-10] MEDS: Multivitamin Vitamin B Complex (Nephro-Vite) Tab PO SCH (10:02)
[2017-11-10] MEDS ORDERED: Iohexol 240 (50 ml) ONE (12:57)
--- NOTE | 2017-11-10 13:40 | CP.PCM.PN ---
Subjective - Date & Time of Evaluation Date of Evaluation: 11/10/17 Time of Evaluation: 13:38 - Subjective Subjective: Nephrology Consultation Note: Assessment:critical High grade SBO UTI, Hyperkalemia hx of prostate CA Hypertensive Chronic Kidney Disease (I12.9) ESRD on HD via permacath (TTS) Anemia (D64.9), HTN (I12.9) HIV on HAART, PVD s/p angioplasty s/p Rt AKA Plan plan for HD today as per TTS. nephrovite 1 tab/day. aransep 40 mcg weekly for anemia 11/06/17. PRBC as needed . last Hb 10.4 hold phosphorus binders while pt NPO Hypertension control with meds as ordered. Patient was on RAAS edyta as losartan>>held for now due to BP on low side. hold norvasc and can continue with lopressor ID, , Surgery and GI following Dose meds/antibiotics for ESRD status. Avoid fleets enema/magnesium based laxatives. Avoid nephrotoxins/NSAIDs/ iodinated contrast (unless needed emergently) Further work up/management as per primary team. Thanks for allowing me to participate in care of your patient. Will follow patient with you. Please call if any Qs. Dr Yandel Arechiga Office: [phone] reason for consult: ESRD, HTN HPI: Pt is a 72 y/o M with hx of HIV on HAART, PVD s/p angioplasty, Rt AKA, hypertension (10-15 years), ESRD on HD (via permacath) TTS @ [facility], left foot toe amputations, prostate CA presented with groin pain and cloudy urine. being managed for UTI renal consult for ESRD, HTN management pt doesn't feel well. says everything is bothering him as lower ext pain, groin pain. says alcala catheter was removed 2 weeks ago ROS: denies CP/SOB. all other neg except as in HPI. c/o abdomen pain but better Physical Examination: seen on HD General Appearance: comfortable, in no acute respiratory distress, facial muscles wasted Vitals reviewed and noted as below Head; Atraumatic, normocephalic ENT: no ulcers no thrush. Tongue is midline dry. Oropharynx: no rash or ulcers. EYES: Pupils are equal, round and reactive to light accommodation. Eye muscles and extraocular movement intact. Sclera is anicteric. Neck; supple no lymphadenopathy, no thyromegaly or bruit Lungs: Normal respiratory rate/effort. Breath sounds bilateral clear Heart: Normal rate. s1s2 normal. No rub or gallop. Extremities: no edema. No varicose veins. s/p Rt AKA Neurological: Patient is alert oriented x 3 follow commands,. no focal deficit Skin: Warm and dry. Normal turgor. Palpitation: Normal elasticity for age. has inguinal erythematous rash Abdomen: Abdomen is soft. Bowel sounds +. There is no abdominal tenderness no guarding no rigidity no organomegaly Psych: limited insight. flat affect MSK: Digits and nails normal, left foot toe amputations in past. Rt AKA. : kidney not palpable. no inguinal hernia. has dullness over bladder area when percussed Access: permacath and maturing left AVF Labs/imaging/EKG reviewed. Past medical history, past surgical history, family history, social history, allergy reviewed and noted as below Family hx: sister was on dialysis. Rest non-contributory Objective - Vital Signs/Intake and Output Vital Signs (last 24 hours): Temp Pulse Resp BP Pulse Ox 99.9 F H 81 18 118/73 94 L 11/10/17 09:49 11/10/17 09:49 11/10/17 09:49 11/10/17 09:49 11/10/17 09:49 Intake and Output: 11/10/17 11/10/17 06:59 18:59 Intake Total 0 Balance 0 - Medications Medications: Current Medications Abacavir Sulfate (Ziagen) 600 mg PO DAILY [facility] PRN Reason: Protocol Last Admin: 11/10/17 10:02 Dose: Not Given Acetaminophen (Tylenol 325mg Tab) 650 mg PO Q4H PRN PRN Reason: Fever >100.4 F Allopurinol (Zyloprim) 300 mg PO DAILY [facility] Last Admin: 11/10/17 10:03 Dose: Not Given Docusate Sodium (Colace Liquid) 100 mg PO TID [facility] Last Admin: 11/10/17 13:19 Dose: Not Given Enoxaparin Sodium (Lovenox) 30 mg SC DAILY [facility] PRN Reason: Protocol Last Admin: 11/10/17 10:02 Dose: Not Given Ferrous Gluconate (Fergon) 324 mg PO TID [facility] Last Admin: 11/10/17 13:19 Dose: Not Given Heparin Sodium (Porcine) (Heparin) 2,000 units IVP TTS [facility] PRN Reason: Protocol Last Admin: 11/10/17 10:01 Dose: Not Given Heparin Sodium (Porcine) (Heparin) 2,200 units [facility] Last Admin: 11/10/17 11:17 Dose: 2,200 units Heparin Sodium (Porcine) (Heparin) 2,400 units ICV [facility] Last Admin: 11/10/17 11:19 Dose: 2,400 units Hydromorphone HCl (Dilaudid) 0.5 mg IVP Q4H PRN PRN Reason: Pain, severe (8-10) Last Admin: 11/10/17 01:59 Dose: 0.5 mg Meropenem 500 mg/ Sodium (Chloride) 50 mls @ 100 mls/hr IVPB Q24H [facility] PRN Reason: Protocol Last Admin: 11/09/17 13:13 Dose: 100 mls/hr Dextrose/Sodium Chloride (Dextrose 5%/0.45% Ns 1000 Ml) 1,000 mls @ 75 mls/hr IV .[id number] [facility] Last Admin: 11/09/17 22:21 Dose: 75 mls/hr Lamivudine (Epivir) 150 mg PO TTS [facility] PRN Reason: Protocol Last Admin: 11/10/17 10:01 Dose: Not Given Metoprolol Tartrate (Lopressor) 100 mg PO Q12 [facility] Last Admin: 11/10/17 10:02 Dose: Not Given Non-Formulary Medication (Dolutegravir Sodium [Tivicay]) 50 mg PO DAILY [facility] Last Admin: 11/10/17 10:01 Dose: Not Given Nystatin (Nystop Topical Powder) 0 gm TOP BID [facility] Stop: 11/20/17 13:01 Last Admin: 11/10/17 10:02 Dose: Not Given Ondansetron HCl (Zofran Inj) 4 mg IVP Q4H PRN PRN Reason: Nausea/Vomiting Last Admin: 11/06/17 04:53 Dose: 4 mg Ondansetron HCl (Zofran Tab) 4 mg PO Q4 PRN PRN Reason: Nausea/Vomiting Last Admin: 11/10/17 11:45 Dose: 4 mg Pantoprazole Sodium (Protonix Inj) 40 mg IVP Q12 [facility] Last Admin: 11/10/17 10:02 Dose: Not Given Sevelamer HCl (Renagel) 1,600 mg PO TID [facility] Last Admin: 11/10/17 13:20 Dose: Not Given Tramadol HCl (Ultram) 50 mg PO Q8H PRN PRN Reason: Pain, moderate (4-7) Last Admin: 11/08/17 20:16 Dose: 50 mg Vitamin B Complex/Vit C/Folic Acid (Nephro-Christel) 1 tab PO DAILY [facility] Last Admin: 11/10/17 10:02 Dose: Not Given - Labs Labs: 11/10/17 08:10 11/10/17 08:10
--- NOTE | 2017-11-10 14:42 | PN ---
DATE: SUBJECTIVE: I saw him during dialysis in the renal area. He is resting comfortably in bed. He is having mild discomfort of the abdomen. No nausea or vomiting he is a little bit better. He is tolerating some liquids. No gas or bowel movements yet. He is on Aricept, Colace, dextrose, Dilaudid, Tivicay, Epivir, Fergon, Fleet enema, heparin, metoprolol, Lovenox, Merrem IV, Nephro-Christel, Norvasc, nystatin, Protonix, Renagel, Tylenol, Ultram, Ziagen, Zofran, and Zyloprim. PHYSICAL EXAMINATION: VITAL SIGNS: He has a 99.9 temperature, the highest it has been; 81 pulse; 118/70 blood pressure; 18 respiratory rate; and 94% O2 sat on room air. HEENT: Head is atraumatic, normocephalic. HEART: Regular rate. LUNGS: Decreased breath sounds. ABDOMEN: Mildly distended, but soft. No guarding, no rebound, no CVA tenderness and also no bowel sounds. EXTREMITIES: No edema. He has an AKA. LABORATORY DATA: He has a 132 sodium; potassium 4.2; BUN 28; creatinine 6, he is on dialysis; GFR is 9; sugar is 105; calcium is 9.3. Total bilirubin is 0.5, AST is 62, ALT is 22, alkaline phosphatase 108, total protein 7.1. He has a 17.6 white count, still elevated; 10.4 hemoglobin; 32.2 hematocrit with 439 platelets. ASSESSMENT AND PLAN: He is being seen by Surgery, Infectious Disease, GI. Last x-ray of the day showed severe small bowel obstruction. Besides that, he has sepsis, urinary tract infection, abdominal pain. We will check his labs tomorrow, try and get the bowels are moving. Parag Brownlee DO [facility]
[2017-11-10] MEDS: Meropenem 500 MG in Sodium Chloride 0.9% 50 ML IVPB SCH (15:21)
--- NOTE | 2017-11-10 17:15 | CT ---
PROCEDURE: CT Abdomen and Pelvis with contrast HISTORY: SBO COMPARISON: Abdomen and pelvis CT with contrast 11/07/2017. TECHNIQUE: Helical CT of the abdomen and pelvis was performed following oral contrast administration. Intravenous contrast was not administered as per referring physician request. Contrast dose: None Radiation dose: Total exam DLP = 327.19 mGy-cm. This CT exam was performed using one or more of the following dose reduction techniques: Automated exposure control, adjustment of the mA and/or kV according to patient size, and/or use of iterative reconstruction technique. FINDINGS: LOWER THORAX: Pacemaker leads are again seen at the right atrium with limited bilateral basilar dependent atelectasis again evident. Trace right pleural effusion evident. LIVER: Unremarkable. No gross lesion or ductal dilatation. GALLBLADDER AND BILE DUCTS: Vicarious excretion of prior intravenous contrast administration is noted within the gallbladder. Gallbladder is distended and otherwise unremarkable. PANCREAS: Unremarkable. No gross lesion or ductal dilatation. SPLEEN: Unremarkable. ADRENALS: Unremarkable. No mass. KIDNEYS AND URETERS: Iodinated contrast material still being excreted from the right kidney with none evident at the left although density throughout both kidneys is rather inhomogeneous clinically correlate with potential diminished renal function though this is not definite. VASCULATURE: Unremarkable as imaged. BOWEL: Small-bowel remains quite dilated with the stomach somewhat less distended than previously shown but still significantly filled with gas and retained oral contrast material and a bit retained food/debris. Large bowel remains decompressed with limited matter retained fecal material throughout the colon. The overall pattern remains suspicious for distal small-bowel obstruction with ileus less likely. Some oral contrast is entering into the colon and the pattern could reflect a high-grade partial or intermittent distal small bowel obstruction rather complete small-bowel obstruction though the latter is still possible and further clinical correlation is recommended. No free intrarenal gas identified. Limited ascites is appreciated in the lower abdomen. Note, a small right inguinal hernia is developing partial involving a short segment ileum and this may be the etiology of the obstruction. APPENDIX: Normal appendix. PERITONEUM: A limited umbilical hernia is appreciate containing only fat. Ascites as suggested above. LYMPH NODES: Unremarkable. No enlarged lymph nodes. BLADDER: Unremarkable. REPRODUCTIVE: Unremarkable. BONES: No acute fracture. OTHER FINDINGS: None. IMPRESSION: Persistent bowel obstruction pattern involving small bowel, potentially a function of developing right inguinal hernia containing a minimal segment of ileum in the right lower quadrant. Further clinical correlation is advised as some contrast is entering the colon and therefore although high-grade distal small-bowel obstruction not totally excluded, this may represent a high-grade intermittent or partial distal small bowel obstruction. Limited ascites developing the abdomen pelvis. No free intraperitoneal gas.
--- NOTE | 2017-11-10 18:51 | PN ---
DATE: 11/10/2017 SUBJECTIVE: Patient is in bed, no acute distress, nontoxic. PHYSICAL EXAMINATION: VITAL SIGNS: Temperature is 99, blood pressure is 118/70, respiratory rate of 16. HEENT: Unremarkable. NECK: Supple. LUNGS: Decreased breath sounds. HEART: Normal S1, S2. ABDOMEN: Soft, nontender. LABORATORY EXAMINATION: Reviewed. ASSESSMENT AND PLAN: This is a 72-year-old male who was seen early this morning with sepsis due to urinary tract infection, cystitis on top of small bowel obstruction with severe peripheral artery disease, status post right [id number] amputation with systemic inflammatory viral disease and influenza, on intermittent vancomycin and meropenem and patient with positive human immunodeficiency virus and undetectable viral load could be the T cell and history of gout and osteomyelitis. Blood cultures negative. We will continue present course. Review of the cultures reveals blood and urine cultures are negative. [place] [address], hemoglobin of 10, on meropenem which requires renewal which we will do so and his human immunodeficiency virus medications. Cesar Flowers MD
[2017-11-10] MEDS: Dextrose 5%/0.45% NS 1,000 ML IV SCH (22:58)
[2017-11-11] MEDS: HYDROmorphone 0.5 mg/0.5 ml ISec IVP PRN ×3 (00:09→21:18)
--- NOTE | 2017-11-11 06:47 | PCM.URO ---
Urology Progress Note - Objective Lab Studies: Reviewed (no major gu change discussed NG tube discussed cysto and stent for now pt says no) Lab Results Last 24 Hours: Laboratory Results - last 24 hr 11/10/17 11/10/17 11/10/17 06:47 08:10 08:10 WBC 17.6 H RBC 3.34 L Hgb 10.4 L Hct 32.2 L MCV 96.4 MCH 31.1 MCHC 32.3 RDW 17.0 H Plt Count 439 MPV 9.5 Sodium 132 Potassium 4.2 Chloride 96 L Carbon Dioxide 30 Anion Gap 11 BUN 28 H Creatinine 6.0 H Est GFR ( Amer) 11 Est GFR (Non-Af Amer) 9 POC Glucose (mg/dL) 98 Random Glucose 105 Calcium 9.3 Total Bilirubin 0.5 AST 62 H ALT 22 Alkaline Phosphatase 108 Total Protein 7.1 Albumin 3.0 Globulin 4.0 Albumin/Globulin Ratio 0.8 L 11/10/17 11/10/17 11/10/17 12:14 16:01 21:09 WBC RBC Hgb Hct MCV MCH MCHC RDW Plt Count MPV Sodium Potassium Chloride Carbon Dioxide Anion Gap BUN Creatinine Est GFR ( Amer) Est GFR (Non-Af Amer) POC Glucose (mg/dL) 79 74 78 Random Glucose Calcium Total Bilirubin AST ALT Alkaline Phosphatase Total Protein Albumin Globulin Albumin/Globulin Ratio 11/11/17 06:38 WBC RBC Hgb Hct MCV MCH MCHC RDW Plt Count MPV Sodium Potassium Chloride Carbon Dioxide Anion Gap BUN Creatinine Est GFR ( Amer) Est GFR (Non-Af Amer) POC Glucose (mg/dL) 104 Random Glucose Calcium Total Bilirubin AST ALT Alkaline Phosphatase Total Protein Albumin Globulin Albumin/Globulin Ratio Intake & Output: Intake & Output 11/10/17 11/10/17 11/11/17 06:59 18:59 06:59 Intake Total 0 0 Balance 0 0 Intake: Oral 0 0 Other: # Voids Urine, Voided 0 0 # Bowel Movements 0 0 Vital Signs: Vital Signs - 24 hr 11/10/17 11/10/17 11/10/17 09:49 14:00 22:38 Temperature 99.9 F H 98 F 97.9 F Pulse Rate 81 90 89 Respiratory 18 17 18 Rate Blood Pressure 118/73 126/69 116/70 O2 Sat by Pulse 94 L 95 93 L Oximetry 11/10/17 23:00 Temperature Pulse Rate 79 Respiratory Rate Blood Pressure O2 Sat by Pulse Oximetry
[2017-11-11 07:35] LABS: HEMOGLOBIN 9.8 g/dL (14.0-18.0); MEAN CELL VOLUME 96.3 fl (80.0-105.0); MEAN CORPUSCULAR HEMOGLOBIN 30.4 pg (25.0-35.0); MEAN CORPUSCULAR HGB CONC 31.6 g/dl (31.0-37.0); RBC 3.22 10^6/uL (3.5-6.1); WHITE BLOOD COUNT 13.8 10^3/ul (4.5-11.0)
[2017-11-11 07:55] LABS: ALB/GLOB RATIO 0.7 (1.1-1.8); ALBUMIN 2.9 g/dL (3.0-4.8); CALCIUM 8.9 mg/dL (8.4-10.5)
[2017-11-11] MEDS: Multivitamin Vitamin B Complex (Nephro-Vite) Tab PO SCH (09:00)
[2017-11-11] MEDS: Non Formulary Medication (Dolutegravir Sodium [Tivicay] 50 MG) PO SCH (09:00)
[2017-11-11] MEDS: Nystatin 100,000 Units/gm Topical Pow(15 gm) TOP SCH ×2 (09:00→17:34)
[2017-11-11] MEDS ORDERED: Dextrose 5%/0.9% NS 1,000 ML IV SCH (09:45)
[2017-11-11 09:53] LABS: INR 1.17 (0.93-1.08); PARTIAL THROMBOPLASTIN TIME 34.4 Seconds (25.1-36.5); PROTHROMBIN TIME 13.5 SECONDS (9.4-12.5)
[2017-11-11] MEDS ORDERED: Propofol 10 mg/ml Inj (20 ML) ONE (10:08)
[2017-11-11] MEDS ORDERED: ePHEDrine 50 mg/ml Inj ONE (10:09)
[2017-11-11] MEDS ORDERED: Succinylcholine 200 mg/10 ml Inj IV ONE (10:09)
[2017-11-11] MEDS ORDERED: Etomidate 20 mg/10ml Inj IV ONE (10:09)
[2017-11-11] MEDS ORDERED: Phenylephrine 10 mg/ml Inj ONE (10:09)
[2017-11-11] MEDS ORDERED: Rocuronium 10 mg/ml (5 ml) ONE (10:09)
[2017-11-11] MEDS ORDERED: Neostigmine Methylsulfate 3mg/3ml Syringe IV ONE (11:04)
[2017-11-11] MEDS ORDERED: Bupivacaine 0.5% Inj(30mL) ONE (11:07)
[2017-11-11] MEDS ORDERED: HYDROmorphone 0.5 mg/0.5 ml ISec IVP PRN (11:48)
[2017-11-11] MEDS ORDERED: HYDROmorphone 0.5 mg/0.5 ml ISec ONE ×2 (11:56→12:18)
[2017-11-11] MEDS ORDERED: HYDROmorphone 0.5 mg/0.5 ml ISec IVP ONE ×2 (12:00→12:20)
[2017-11-11] MEDS ORDERED: Sodium Chloride 0.9% 1,000 ML IV SCH (12:00)
--- NOTE | 2017-11-11 12:05 | PCM.SURG1 ---
Surgeon's Initial Post Op Note - Surgeon's Notes Surgeon: Juan Senior Stereo Compiler Team Lead: Liz PGY3 Type of Anesthesia: General Endo, Local Anesthesia Administered By: Dr. Ford Pre-Operative Diagnosis: SBO Operative Findings: Dilated loops of bowel, dusky, w. transition point in right lower abd 2/2 inflammatory process/fibrotic band Post-Operative Diagnosis: same Operation Performed: laparotomy w. appendectomy and lysis of adhesion Specimen/Specimens Removed: appendix Estimated Blood Loss: EBL {In ML}: 20 Blood Products Given: N/A Drains Used: No Drains Post-Op Condition: Fair Date of Surgery/Procedure: 11/11/17 Time of Surgery/Procedure: 12:05
[2017-11-11] MEDS: Meropenem 500 MG in Sodium Chloride 0.9% 50 ML IVPB SCH (15:59)
[2017-11-11 19:14] LABS: HEMOGLOBIN 9.8 g/dL (14.0-18.0)
[2017-11-11] MEDS: Lactated Ringer's 1,000 ML IV SCH ×2 (21:26→21:28)
--- NOTE | 2017-11-11 23:42 | OP ---
PROCEDURE DATE: PREOPERATIVE DIAGNOSIS: Small bowel obstruction. POSTOPERATIVE DIAGNOSIS: Small bowel obstruction. OPERATIONS PERFORMED: Exploratory laparotomy, resection of an adhesion, appendectomy, repair of umbilical hernia. INDICATIONS: The patient is a 72-year-old dialysis patient with prostatic cancer and HIV, never been operated on before, has clear small bowel obstruction that is not getting better. He refused an NG tube. CAT scans 2 or 3 days apart showed no change. He is not passing gas or flatus. This morning, his abdominal exam changed, it is more tender with nausea and the plan was an operation. DESCRIPTION OF PROCEDURE: In the operating room, the patient was identified by name, name of procedure, laterality, his consent, his wristband, and number. A Augustin was placed and eventually an NG tube. The abdomen was prepped, waiting 3 minutes it was draped, and then after a successful timeout was performed. We all were in agreement, a midline incision made that was extended several times for exposure. There was free ascitic fluid that was not turbid. The bowel was dilated, followed deep into the pelvis and initially we could not find the source. Deep in the pelvis on the right side, there was a loop of bowel, adhesed to the bladder by a dense adhesion. This was taken down and then resected, it came from the mesentery of the small bowel and entered the dome of the bladder, did not seem to be malignant. There was a palpable tumor in the prostate, but it was unremarkable. The bowel and the pelvis were somewhat ischemic. It was completely removed from the abdomen and applied. The appendix initially was not seen, it was stuck in the area of the inflammation, and part of the bowel had a lot of fibrin on it. This was cultured aerobically and anaerobically. The appendix was peeled off the peritoneum and resected, it was fibrotic, but probably not the source, although it was unclear. There was right in the area of a lot of fibrin. There was no free pus or perforation. The mesentery was taken with the the base was taken with a TA-30. The area was packed and examined. The small bowel was run and having placed it into the abdomen, again the ischemic areas was completely normal. The point of contention was right at the ileocecal junction, it was clearly dilated bowel above it, there was a yohan on the bowel probably from the adhesion. This did not seem to be diverticulitis related. There were diverticula there, but there were no adhesions in this area and the bowel itself was pretty soft. The impression is that this is probably an inflammatory adhesion on the dome of the bladder. The abdomen was cleaned and dried. At a point of election, the incision was closed with a running #1 PDS above and below and tied in the middle repairing the umbilical hernia on the way. Incision was closed with Vicryl, followed by ashely and Marcaine. A binder was placed. Augustin removed some very thick purulent fluid. We will discuss with about whether to remove the tube or not, where they start irrigations for. NG tube was left in place. Bradley Martinez MD
--- NOTE | 2017-11-12 00:34 | PN ---
DATE: 11/11/2017 SUBJECTIVE: The patient is in bed, was seen earlier this morning in room 569. No fevers and no chills. PHYSICAL EXAMINATION: VITAL SIGNS: Temperature 98, blood pressure is 107/60, respiratory rate of 16. HEENT: Unremarkable. NECK: Supple. LUNGS: Have decreased breath sounds. HEART: Normal S1 and S2. ABDOMEN: Soft. LABORATORY DATA: Reveals white count of 13,800, hemoglobin of 9 and platelets noted. BUN is 22, creatinine of 5.2. Review of orders reveals the patient to be on HIV medication. The patient also on meropenem and ASSESSMENT AND PLAN: This is a 72-year-old male who was seen earlier this morning in room 569, bed 1 with sepsis, urinary tract infection, cystitis, on top of small bowel obstruction, severe peripheral arterial disease, status post right [id number] amputation and systemic inflammatory viral disease and influenza, on intermittent vancomycin and meropenem. The patient is positive HIV and history of gout and osteomyelitis. The patient had a CAT scan of the abdomen and pelvis and she was diagnosed with small bowel obstruction with the exploratory laparotomy and appendectomy with release of adhesion band is noted from the notes morning. We will follow with you. Cesar Flowers MD
--- NOTE | 2017-11-12 07:26 | PN ---
DATE: SUBJECTIVE: He is seen comfortably in bed, reading the newspaper. He is having some abdominal pain. He had some low blood sugars last night and I put him on dextrose and changed him from one half normal saline. He was uncomfortable. MEDICATIONS: He is on Aricept, Colace, dextrose, Dilaudid, Dulcolax, Epivir, Fergon, heparin, Lopressor, Lovenox, Merrem IV, Nephro-Christel, Norvasc, nystatin, Protonix, Renagel, Tylenol, Ultram, Ziagen, Zofran, Zyloprim. PHYSICAL EXAMINATION: VITAL SIGNS: He has a 97.7 temperature, 94 pulse, 118/62 blood pressure, 20 respiratory rate, 99% O2 sat on room air. HEENT: Head is atraumatic, normocephalic. Throat is dry. NECK: Supple. HEART: Regular rate. LUNGS: Decreased breath sounds. ABDOMEN: Mildly distended. No guarding, no rebound. There is discomfort all over. No bowel sounds if any. EXTREMITIES: He has a right AKA and left with no edema. LABORATORY DATA: He has a 137 sodium, potassium is 4. BUN is 22, creatinine 4.6 after dialysis. GFR is 13. Sugar is 101. Calcium is 9.2. Total bili is 0.5, AST is 50, ALT is 25, alk phos 120, total protein 7.4. His white count is down to 16.5, it was as high as 21, 10.2 hemoglobin, 32.3 hematocrit with 423 platelets. He does have a urinary tract infection on . I am happy that his white count is starting to go down and we just have to make sure his small bowel obstruction resolves. He had x-ray of the abdomen yesterday, which showed severe small bowel obstruction, clinically does not look as bad as the tests show. We will continue with aggressive treatment and care. He is being seen by multiple physicians, Infectious Disease, Renal, Urology, Surgery. I will continue with aggressive treatment and care on [facility] with small bowel obstruction, urinary tract infection, fall, end-stage renal disease, HIV, old CVA, right AKA. Parag Brownlee, DO MTDAnna
[2017-11-12 07:29] LABS: HEMOGLOBIN 9.9 g/dL (14.0-18.0); MEAN CELL VOLUME 97.2 fl (80.0-105.0); MEAN CORPUSCULAR HEMOGLOBIN 30.7 pg (25.0-35.0); MEAN CORPUSCULAR HGB CONC 31.5 g/dl (31.0-37.0); MEAN PLATELET VOLUME 9.4 fl (7.0-11.0); RBC 3.23 10^6/uL (3.5-6.1); RED CELL DISTRIBUTION WIDTH 17.2 % (11.5-14.5); WHITE BLOOD COUNT 16.7 10^3/ul (4.5-11.0)
--- NOTE | 2017-11-12 07:40 | CP.PCM.PN ---
Subjective - Date & Time of Evaluation Date of Evaluation: 11/12/17 Time of Evaluation: 07:39 - Subjective Subjective: Surgery Pt s&e. NAEON. Denies F/C/N/V/D. c/o abd pain and NGT discomfort. Chand in place. Objective - Vital Signs/Intake and Output Vital Signs (last 24 hours): Temp Pulse Resp BP Pulse Ox 98.0 F 99 H 21 112/67 98 11/11/17 12:30 11/11/17 21:21 11/11/17 12:30 11/11/17 21:21 11/11/17 12:30 Intake and Output: 11/12/17 11/12/17 06:59 18:59 Intake Total 0 Output Total 450 Balance -450 - Medications Medications: Current Medications Acetaminophen (Tylenol 325mg Tab) 650 mg PO Q4H PRN PRN Reason: Fever >100.4 F Allopurinol (Zyloprim) 300 mg PO DAILY [facility] Last Admin: 11/11/17 09:00 Dose: Not Given Docusate Sodium (Colace Liquid) 100 mg PO TID [facility] Last Admin: 11/11/17 17:34 Dose: Not Given Enoxaparin Sodium (Lovenox) 30 mg SC DAILY [facility] PRN Reason: Protocol Ferrous Gluconate (Fergon) 324 mg PO TID [facility] Last Admin: 11/11/17 17:34 Dose: Not Given Heparin Sodium (Porcine) (Heparin) 2,000 units IVP TTS [facility] PRN Reason: Protocol Last Admin: 11/10/17 10:01 Dose: Not Given Heparin Sodium (Porcine) (Heparin) 2,200 units ICA [facility]A [facility] Last Admin: 11/10/17 11:17 Dose: 2,200 units Heparin Sodium (Porcine) (Heparin) 2,400 units ICV TUTA [facility] Last Admin: 11/10/17 11:19 Dose: 2,400 units Hydromorphone HCl (Dilaudid) 0.5 mg IVP Q4H PRN PRN Reason: Pain, severe (8-10) Last Admin: 11/11/17 21:18 Dose: 0.5 mg Meropenem 500 mg/ Sodium (Chloride) 50 mls @ 100 mls/hr IVPB Q24H [facility] PRN Reason: Protocol Last Admin: 11/11/17 15:59 Dose: 100 mls/hr Lactated Ringer's (Lactated Ringer's) 1,000 mls @ 100 mls/hr IV .Q10H [facility] Last Admin: 11/11/17 21:28 Dose: Not Given Lamivudine (Epivir) 150 mg PO TTS [facility] PRN Reason: Protocol Last Admin: 11/10/17 10:01 Dose: Not Given Metoprolol Tartrate (Lopressor) 100 mg PO Q12 [facility] Last Admin: 11/11/17 21:21 Dose: 100 mg Non-Formulary Medication (Dolutegravir Sodium [Tivicay]) 50 mg PO DAILY [facility] Last Admin: 11/11/17 09:00 Dose: Not Given Nystatin (Nystop Topical Powder) 0 gm TOP BID [facility] Stop: 11/20/17 13:01 Last Admin: 11/11/17 17:34 Dose: 1 applic Ondansetron HCl (Zofran Inj) 4 mg IVP Q4H PRN PRN Reason: Nausea/Vomiting Last Admin: 11/10/17 18:45 Dose: 4 mg Ondansetron HCl (Zofran Tab) 4 mg PO Q4 PRN PRN Reason: Nausea/Vomiting Last Admin: 11/10/17 11:45 Dose: 4 mg Pantoprazole Sodium (Protonix Inj) 40 mg IVP Q12 [facility] Last Admin: 11/11/17 21:17 Dose: 40 mg Sevelamer HCl (Renagel) 1,600 mg PO TID [facility] Last Admin: 11/11/17 17:34 Dose: Not Given Tramadol HCl (Ultram) 50 mg PO Q8H PRN PRN Reason: Pain, moderate (4-7) Last Admin: 11/08/17 20:16 Dose: 50 mg Vitamin B Complex/Vit C/Folic Acid (Nephro-Christel) 1 tab PO DAILY [facility] Last Admin: 11/11/17 09:00 Dose: Not Given - Labs Labs: 11/12/17 07:00 11/11/17 06:30 PT 13.5 SECONDS (9.4-12.5) H 11/11/17 09:30 INR 1.17 (0.93-1.08) H 11/11/17 09:30 APTT 34.4 Seconds (25.1-36.5) 11/11/17 09:30 - Constitutional Appears: No Acute Distress - Head Exam Head Exam: ATRAUMATIC, NORMAL INSPECTION, NORMOCEPHALIC - Eye Exam Eye Exam: EOMI, Normal appearance, PERRL Pupil Exam: NORMAL ACCOMODATION, PERRL - ENT Exam ENT Exam: Mucous Membranes Moist, Normal Exam - Neck Exam Neck Exam: Full ROM, Normal Inspection. absent: Lymphadenopathy - Respiratory Exam Respiratory Exam: Clear to Ausculation Bilateral, NORMAL BREATHING PATTERN - Cardiovascular Exam Cardiovascular Exam: REGULAR RHYTHM, +S1, +S2. absent: Murmur - GI/Abdominal Exam GI & Abdominal Exam: Soft, Tenderness, Normal Bowel Sounds. absent: Distended, Firm, Guarding Additional comments: Dressing C/D/I. - Extremities Exam Extremities Exam: Full ROM, Normal Capillary Refill, Normal Inspection. absent : Joint Swelling, Pedal Edema - Back Exam Back Exam: NORMAL INSPECTION - Neurological Exam Neurological Exam: Alert, Awake, CN II-XII Intact, Normal Gait, Oriented x3 - Psychiatric Exam Psychiatric exam: Normal Affect, Normal Mood - Skin Skin Exam: Dry, Intact, Normal Color, Warm Assessment and Plan - Assessment and Plan (Free Text) Assessment: POD 1 s/p laparotomy w. appendectomy and lysis of adhesion NGT 200cc bilious Chand 400cc/8hrs -WIll DC NGT -PT -IS -Pain/nausea control -I&O WIll LEONOR Anton
[2017-11-12 07:42] LABS: ALB/GLOB RATIO 0.7 (1.1-1.8); ALBUMIN 2.7 g/dL (3.0-4.8); CALCIUM 8.4 mg/dL (8.4-10.5)
--- NOTE | 2017-11-12 10:34 | CP.PCM.PN ---
Subjective - Date & Time of Evaluation Date of Evaluation: 11/12/17 Time of Evaluation: 10:33 - Subjective Subjective: Nephrology Consultation Note: Assessment:stable High grade SBO s/p surgery, appendectomy UTI, Hyperkalemia hx of prostate CA Hypertensive Chronic Kidney Disease (I12.9) ESRD on HD via permacath (TTS) Anemia (D64.9), HTN (I12.9) HIV on HAART, PVD s/p angioplasty s/p Rt AKA Plan plan for HD otmorrow as per TTS. nephrovite 1 tab/day. aransep 40 mcg weekly for anemia 11/06/17. PRBC as needed . last Hb 9.9 hold phosphorus binders while pt NPO Hypertension control with meds as ordered. Patient was on RAAS edyta as losartan>>held for now due to BP on low side. hold norvasc and can continue with lopressor ID, , Surgery and GI following Dose meds/antibiotics for ESRD status. Avoid fleets enema/magnesium based laxatives. Avoid nephrotoxins/NSAIDs/ iodinated contrast (unless needed emergently) Further work up/management as per primary team. Thanks for allowing me to participate in care of your patient. Will follow patient with you. Please call if any Qs. Dr Yandel Arechiga Office: [phone] reason for consult: ESRD, HTN HPI: Pt is a 72 y/o M with hx of HIV on HAART, PVD s/p angioplasty, Rt AKA, hypertension (10-15 years), ESRD on HD (via permacath) [place] [facility] [place] toe [place], prostate CA presented with groin pain and cloudy urine. being managed for UTI renal consult for ESRD, HTN management pt doesn't feel well. says everything is bothering him as lower ext pain, groin pain. says alcala catheter was removed 2 weeks ago ROS: denies CP/SOB. all other neg except as in HPI. c/o abdomen pain Physical Examination: General Appearance: comfortable, in no acute respiratory distress, facial muscles wasted Vitals reviewed and noted as below Head; Atraumatic, normocephalic ENT: no ulcers no thrush. Tongue is midline dry. Oropharynx: no rash or ulcers. EYES: Pupils are equal, round and reactive to light accommodation. Eye muscles and extraocular movement intact. Sclera is anicteric. Neck; supple no lymphadenopathy, no thyromegaly or bruit Lungs: Normal respiratory rate/effort. Breath sounds bilateral clear Heart: Normal rate. s1s2 normal. No rub or gallop. Extremities: no edema. No varicose veins. s/p Rt AKA Neurological: Patient is alert oriented x 3 follow commands,. no focal deficit Skin: Warm and dry. Normal turgor. Palpitation: Normal elasticity for age. has inguinal erythematous rash Abdomen: Abdomen is soft. Bowel sounds decreased. s/p surgery, has binders and dressing overlying Psych: limited insight. flat affect MSK: Digits and nails normal, left foot toe amputations in past. Rt AKA. : kidney not palpable. has alcala Access: permacath and maturing left AVF Labs/imaging/EKG reviewed. Past medical history, past surgical history, family history, social history, allergy reviewed and noted as below Family hx: sister was on dialysis. Rest non-contributory Objective - Vital Signs/Intake and Output Vital Signs (last 24 hours): Temp Pulse Resp BP Pulse Ox 99.1 F 113 H 20 111/71 96 11/12/17 07:30 11/12/17 07:30 11/12/17 07:30 11/12/17 07:30 11/12/17 07:30 Intake and Output: 11/12/17 11/12/17 06:59 18:59 Intake Total 0 Output Total 450 Balance -450 - Medications Medications: Current Medications Acetaminophen (Tylenol 325mg Tab) 650 mg PO Q4H PRN PRN Reason: Fever >100.4 F Allopurinol (Zyloprim) 300 mg PO DAILY [facility] Last Admin: 11/11/17 09:00 Dose: Not Given Docusate Sodium (Colace Liquid) 100 mg PO TID [facility] Last Admin: 11/11/17 17:34 Dose: Not Given Enoxaparin Sodium (Lovenox) 30 mg SC DAILY [facility] PRN Reason: Protocol Ferrous Gluconate (Fergon) 324 mg PO TID [facility] Last Admin: 11/11/17 17:34 Dose: Not Given Heparin Sodium (Porcine) (Heparin) 2,000 units IVP TTS [facility] PRN Reason: Protocol Last Admin: 11/10/17 10:01 Dose: Not Given Heparin Sodium (Porcine) (Heparin) 2,200 units ICA [facility] Last Admin: 11/10/17 11:17 Dose: 2,200 units Heparin Sodium (Porcine) (Heparin) 2,400 units ICV [facility] Last Admin: 11/10/17 11:19 Dose: 2,400 units Hydromorphone HCl (Dilaudid) 0.5 mg IVP Q4H PRN PRN Reason: Pain, severe (8-10) Last Admin: 11/11/17 21:18 Dose: 0.5 mg Meropenem 500 mg/ Sodium (Chloride) 50 mls @ 100 mls/hr IVPB Q24H [facility] PRN Reason: Protocol Last Admin: 11/11/17 15:59 Dose: 100 mls/hr Lactated Ringer's (Lactated Ringer's) 1,000 mls @ 100 mls/hr IV .Q10H [facility] Last Admin: 11/11/17 21:28 Dose: Not Given Lamivudine (Epivir) 150 mg PO TTS [facility] PRN Reason: Protocol Last Admin: 11/10/17 10:01 Dose: Not Given Metoprolol Tartrate (Lopressor) 100 mg PO Q12 [facility] Last Admin: 11/11/17 21:21 Dose: 100 mg Non-Formulary Medication (Dolutegravir Sodium [Tivicay]) 50 mg PO DAILY [facility] Last Admin: 11/11/17 09:00 Dose: Not Given Nystatin (Nystop Topical Powder) 0 gm TOP BID [facility] Stop: 11/20/17 13:01 Last Admin: 11/11/17 17:34 Dose: 1 applic Ondansetron HCl (Zofran Inj) 4 mg IVP Q4H PRN PRN Reason: Nausea/Vomiting Last Admin: 11/10/17 18:45 Dose: 4 mg Ondansetron HCl (Zofran Tab) 4 mg PO Q4 PRN PRN Reason: Nausea/Vomiting Last Admin: 11/10/17 11:45 Dose: 4 mg Pantoprazole Sodium (Protonix Inj) 40 mg IVP Q12 [facility] Last Admin: 11/11/17 21:17 Dose: 40 mg Sevelamer HCl (Renagel) 1,600 mg PO TID [facility] Last Admin: 11/11/17 17:34 Dose: Not Given Tramadol HCl (Ultram) 50 mg PO Q8H PRN PRN Reason: Pain, moderate (4-7) Last Admin: 11/08/17 20:16 Dose: 50 mg Vitamin B Complex/Vit C/Folic Acid (Nephro-Christel) 1 tab PO DAILY [facility] Last Admin: 11/11/17 09:00 Dose: Not Given - Labs Labs: 11/12/17 07:00 11/12/17 07:00 PT 13.5 SECONDS (9.4-12.5) H 11/11/17 09:30 INR 1.17 (0.93-1.08) H 11/11/17 09:30 APTT 34.4 Seconds (25.1-36.5) 11/11/17 09:30
[2017-11-12] MEDS: Multivitamin Vitamin B Complex (Nephro-Vite) Tab PO SCH (10:57)
[2017-11-12] MEDS: Enoxaparin 30 mg Syringe SC SCH (10:57)
[2017-11-12] MEDS: Nystatin 100,000 Units/gm Topical Pow(15 gm) TOP SCH (10:58)
[2017-11-12] MEDS: Meropenem 500 MG in Sodium Chloride 0.9% 50 ML IVPB SCH (14:04)
[2017-11-12] MEDS: Non Formulary Medication (Dolutegravir Sodium [Tivicay] 50 MG) PO SCH (14:16)
--- NOTE | 2017-11-12 14:45 | PN ---
DATE: SUBJECTIVE: I saw him resting comfortably in bed. He is alert and confused this morning. It could be the Dilaudid he was in or anesthesia from yesterday where he had surgery with Dr. Martinez for small bowel obstruction. There was an adhesion that they lysed and hopefully, this will make everything work well that is what they found on him and hope he improves. He is currently on Colace, Dilaudid, Tivicay, Epivir, Fergon, heparin, lactated Ringer's, Lopressor, Lovenox, Merrem IV, Nephro-Christel, nystatin, Protonix, Renagel, Tylenol, Ultram, Zofran and Zyloprim. PHYSICAL EXAMINATION: VITAL SIGNS: Temperature 98; 79 pulse; 107/60 blood pressure, 21 respiratory rate, 98% O2 sat on nasal cannula. HEENT: His head is atraumatic, normocephalic. Throat is dry. NECK: Supple. HEART: Regular rate. LUNGS: Decreased breath sounds, but clear. ABDOMEN: Decreased bowel sounds, still bandaged, less distended. EXTREMITIES: Have no edema. LABORATORY DATA: He has a 138 sodium, potassium is 3.6, BUN 30, creatinine 6.8. He is on dialysis for 3 to 4 days, sugar is 78, calcium is 8.4, total bili is 0.4. AST is 38, ALT is 23, alkaline phosphatase 84, total protein is 6.5. He has a 16.7 white count, went up a little bit, it was low 13 yesterday, 9.9 hemoglobin; 31.4 hematocrit with 438 platelets. PLAN: He is being seen by Surgery, Infectious Disease, Urology, Renal. We will continue with postop care and he might need before he goes home or TCU. We will make recommendation with Physical Therapy now that he is status post surgery. Parag Brownlee DO [facility]OSPITALAnna
--- NOTE | 2017-11-12 18:28 | CP.PCM.PN ---
Subjective - Date & Time of Evaluation Date of Evaluation: 11/12/17 Time of Evaluation: 11:55 - Subjective Subjective: Still with some abdominal pain but less, no fevers. Objective - Vital Signs/Intake and Output Vital Signs (last 24 hours): Temp Pulse Resp BP Pulse Ox 99.1 F 113 H 20 111/71 96 11/12/17 07:30 11/12/17 07:30 11/12/17 07:30 11/12/17 07:30 11/12/17 07:30 Intake and Output: 11/12/17 11/12/17 06:59 18:59 Intake Total 0 Output Total 450 Balance -450 - Medications Medications: Current Medications Acetaminophen (Tylenol 325mg Tab) 650 mg PO Q4H PRN PRN Reason: Fever >100.4 F Allopurinol (Zyloprim) 300 mg PO DAILY [facility] Last Admin: 11/11/17 09:00 Dose: Not Given Darbepoetin Mario (Aranesp) 40 mcg IVP ONCE ONE Stop: 11/13/17 10:35 Docusate Sodium (Colace Liquid) 100 mg PO TID [facility] Last Admin: 11/11/17 17:34 Dose: Not Given Enoxaparin Sodium (Lovenox) 30 mg SC DAILY [facility] PRN Reason: Protocol Ferrous Gluconate (Fergon) 324 mg PO TID [facility] Last Admin: 11/11/17 17:34 Dose: Not Given Heparin Sodium (Porcine) (Heparin) 2,000 units IVP TTS [facility] PRN Reason: Protocol Last Admin: 11/10/17 10:01 Dose: Not Given Heparin Sodium (Porcine) (Heparin) 2,200 units ICA TUTA [facility] Last Admin: 11/10/17 11:17 Dose: 2,200 units Heparin Sodium (Porcine) (Heparin) 2,400 units ICV TUTA [facility] Last Admin: 11/10/17 11:19 Dose: 2,400 units Hydromorphone HCl (Dilaudid) 0.5 mg IVP Q4H PRN PRN Reason: Pain, severe (8-10) Last Admin: 11/11/17 21:18 Dose: 0.5 mg Meropenem 500 mg/ Sodium (Chloride) 50 mls @ 100 mls/hr IVPB Q24H [facility] PRN Reason: Protocol Last Admin: 11/11/17 15:59 Dose: 100 mls/hr Lactated Ringer's (Lactated Ringer's) 1,000 mls @ 100 mls/hr IV .Q10H [facility] Last Admin: 11/11/17 21:28 Dose: Not Given Lamivudine (Epivir) 150 mg PO TTS [facility] PRN Reason: Protocol Last Admin: 11/10/17 10:01 Dose: Not Given Metoprolol Tartrate (Lopressor) 100 mg PO Q12 [facility] Last Admin: 11/11/17 21:21 Dose: 100 mg Non-Formulary Medication (Dolutegravir Sodium [Tivicay]) 50 mg PO DAILY [facility] Last Admin: 11/11/17 09:00 Dose: Not Given Nystatin (Nystop Topical Powder) 0 gm TOP BID [facility] Stop: 11/20/17 13:01 Last Admin: 11/11/17 17:34 Dose: 1 applic Ondansetron HCl (Zofran Inj) 4 mg IVP Q4H PRN PRN Reason: Nausea/Vomiting Last Admin: 11/10/17 18:45 Dose: 4 mg Ondansetron HCl (Zofran Tab) 4 mg PO Q4 PRN PRN Reason: Nausea/Vomiting Last Admin: 11/10/17 11:45 Dose: 4 mg Pantoprazole Sodium (Protonix Inj) 40 mg IVP Q12 [facility] Last Admin: 11/11/17 21:17 Dose: 40 mg Sevelamer HCl (Renagel) 1,600 mg PO TID [facility] Last Admin: 11/11/17 17:34 Dose: Not Given Tramadol HCl (Ultram) 50 mg PO Q8H PRN PRN Reason: Pain, moderate (4-7) Last Admin: 11/08/17 20:16 Dose: 50 mg Vitamin B Complex/Vit C/Folic Acid (Nephro-Christel) 1 tab PO DAILY [facility] Last Admin: 11/11/17 09:00 Dose: Not Given - Labs Labs: 11/12/17 07:00 11/12/17 07:00 PT 13.5 SECONDS (9.4-12.5) H 11/11/17 09:30 INR 1.17 (0.93-1.08) H 11/11/17 09:30 APTT 34.4 Seconds (25.1-36.5) 11/11/17 09:30 - Constitutional Appears: Chronically Ill - Head Exam Head Exam: NORMAL INSPECTION - ENT Exam ENT Exam: Mucous Membranes Moist - Neck Exam Neck Exam: absent: Meningismus - Respiratory Exam Respiratory Exam: Decreased Breath Sounds - Cardiovascular Exam Cardiovascular Exam: +S1, +S2 - GI/Abdominal Exam GI & Abdominal Exam: Soft. absent: Tenderness Assessment and Plan - Assessment and Plan (Free Text) Plan: Assessment sepsis due to UTI with cystitis on top of small bowel obstruction S/P ex-lap, adhesiolysis, repair of umbilical hernia and appendectomy POD #2 severe PAD S/P angioplasty of the left tibial artery S/P right AKA UTI with MRSA and Strep viridans systemic viral illness with Influenza history of left foot 3rd digit chronic osteomyelitis S/P amputation and debridement right sided nephrolithiasis history of severe sepsis with acute on chronic renal failure probably due to pyelonephritis with E. coli bacteremia history of C. diff. associated diarrhea Charcot foot, left history of left 2nd toe dry gangrene Chronic renal failure on hemodialysis HTN prostate CA HIV ([facility] at [facility] [place] 03/2016 349 and virus load < 1.3 log) history of osteomyelitis of left first toe S/P amputation (2015) gout history of left foot ulcers Plan continue Merrem and will continue to monitor clinically continue antiretroviral therapy (lamivudine, abacavir on formulary but dolutegravir should be taken by patient from his home supply) overall prognosis is poor
[2017-11-13] MEDS ORDERED: Dextrose 5%/0.45% NS 1,000 ML IV SCH (08:15)
--- NOTE | 2017-11-13 08:24 | RAD ---
HISTORY: NGT placement COMPARISON: 11/05/2017 FINDINGS: LUNGS: No active pulmonary disease. PLEURA: No significant pleural effusion identified, no pneumothorax apparent. CARDIOVASCULAR: NG tube extends to left upper quadrant of abdomen. Right tunneled central venous dialysis catheter grossly unchanged. OSSEOUS STRUCTURES: No significant abnormalities. VISUALIZED UPPER ABDOMEN: Normal. OTHER FINDINGS: None. IMPRESSION: No active disease.
--- NOTE | 2017-11-13 08:34 | PN ---
DATE: 11/12/2017 Mr. Sagastume was seen status post laparotomy. He is complaining of lot of pain and inability get out, move around, having dialysis in the morning. In general, he did well. Bradley Martinez MD
[2017-11-13] MEDS ORDERED: Darbepoetin Alfa 40 mcg/ml Inj IVP ONE (10:34)
[2017-11-13 10:36] LABS: HEMOGLOBIN 9.6 g/dL (14.0-18.0); MEAN CELL VOLUME 96.5 fl (80.0-105.0); MEAN CORPUSCULAR HEMOGLOBIN 30.9 pg (25.0-35.0); MEAN PLATELET VOLUME 9.6 fl (7.0-11.0); RBC 3.11 10^6/uL (3.5-6.1); RED CELL DISTRIBUTION WIDTH 17.6 % (11.5-14.5); WHITE BLOOD COUNT 20.7 10^3/ul (4.5-11.0)
--- NOTE | 2017-11-13 10:47 | CP.PCM.PN ---
Subjective - Date & Time of Evaluation Date of Evaluation: 11/13/17 Time of Evaluation: 10:38 - Subjective Subjective: Surgery: Dr. Martinez Pt seen and examined. Became nauseous over night and vomited. Has increased abd pain. Passing flatus. No BM. Objective - Vital Signs/Intake and Output Vital Signs (last 24 hours): Temp Pulse Resp BP Pulse Ox 99.1 F 93 H 18 99/62 L 96 11/13/17 07:30 11/13/17 07:30 11/13/17 07:30 11/13/17 07:30 11/13/17 07:30 Intake and Output: 11/13/17 11/13/17 06:59 18:59 Intake Total 300 Output Total 0 Balance 300 - Medications Medications: Current Medications Acetaminophen (Tylenol 325mg Tab) 650 mg PO Q4H PRN PRN Reason: Fever >100.4 F Last Admin: 11/12/17 21:32 Dose: 650 mg Allopurinol (Zyloprim) 300 mg PO DAILY [facility] Last Admin: 11/12/17 11:00 Dose: 300 mg Docusate Sodium (Colace Liquid) 100 mg PO TID [facility] Last Admin: 11/12/17 17:43 Dose: 100 mg Enoxaparin Sodium (Lovenox) 30 mg SC DAILY [facility] PRN Reason: Protocol Last Admin: 11/12/17 10:57 Dose: 30 mg Ferrous Gluconate (Fergon) 324 mg PO TID [facility] Last Admin: 11/12/17 17:43 Dose: 324 mg Heparin Sodium (Porcine) (Heparin) 2,000 units IVP TTS [facility] PRN Reason: Protocol Last Admin: 11/10/17 10:01 Dose: Not Given Heparin Sodium (Porcine) (Heparin) 2,200 units ICA [facility]A [facility] Last Admin: 11/10/17 11:17 Dose: 2,200 units Heparin Sodium (Porcine) (Heparin) 2,400 units ICV TUTA [facility] Last Admin: 11/10/17 11:19 Dose: 2,400 units Hydromorphone HCl (Dilaudid) 0.5 mg IVP Q4H PRN PRN Reason: Pain, severe (8-10) Last Admin: 11/11/17 21:18 Dose: 0.5 mg Meropenem 500 mg/ Sodium (Chloride) 50 mls @ 100 mls/hr IVPB Q24H [facility] PRN Reason: Protocol Last Admin: 11/12/17 14:04 Dose: 100 mls/hr Dextrose/Sodium Chloride (Dextrose 5%/0.45% Ns 1000 Ml) 1,000 mls @ 100 mls/hr IV .Q10H [facility] Metoprolol Tartrate (Lopressor) 100 mg PO Q12 [facility] Last Admin: 11/12/17 21:32 Dose: 100 mg Non-Formulary Medication (Dolutegravir Sodium [Tivicay]) 50 mg PO DAILY [facility] Last Admin: 11/12/17 14:16 Dose: Not Given Nystatin (Nystop Topical Powder) 0 gm TOP BID [facility] Stop: 11/20/17 13:01 Last Admin: 11/12/17 10:58 Dose: 1 applic Ondansetron HCl (Zofran Inj) 4 mg IVP Q4H PRN PRN Reason: Nausea/Vomiting Last Admin: 11/13/17 06:31 Dose: 4 mg Ondansetron HCl (Zofran Tab) 4 mg PO Q4 PRN PRN Reason: Nausea/Vomiting Last Admin: 11/10/17 11:45 Dose: 4 mg Pantoprazole Sodium (Protonix Inj) 40 mg IVP Q12 [facility] Last Admin: 11/12/17 21:33 Dose: 40 mg Sevelamer HCl (Renagel) 1,600 mg PO TID [facility] Last Admin: 11/12/17 17:43 Dose: 1,600 mg Tramadol HCl (Ultram) 50 mg PO Q8H PRN PRN Reason: Pain, moderate (4-7) Last Admin: 11/08/17 20:16 Dose: 50 mg Vitamin B Complex/Vit C/Folic Acid (Nephro-Christel) 1 tab PO DAILY [facility] Last Admin: 11/12/17 10:57 Dose: 1 tab - Labs Labs: 11/12/17 07:00 11/12/17 07:00 PT 13.5 SECONDS (9.4-12.5) H 11/11/17 09:30 INR 1.17 (0.93-1.08) H 11/11/17 09:30 APTT 34.4 Seconds (25.1-36.5) 11/11/17 09:30 - Constitutional Appears: Non-toxic, No Acute Distress, Cachectic, Chronically Ill - Head Exam Head Exam: ATRAUMATIC, NORMOCEPHALIC - Eye Exam Eye Exam: EOMI - ENT Exam ENT Exam: Mucous Membranes Dry - Respiratory Exam Respiratory Exam: NORMAL BREATHING PATTERN. absent: Accessory Muscle Use, Respiratory Distress - GI/Abdominal Exam GI & Abdominal Exam: Distended, Tenderness. absent: Firm, Guarding, Rigid, Rebound - Extremities Exam Extremities Exam: absent: Calf Tenderness, Pedal Edema Additional comments: R AKA - Neurological Exam Neurological Exam: Alert, Awake, Oriented x3 Assessment and Plan - Assessment and Plan (Free Text) Assessment: 72M w. SBO s/p ex-lap w. OTF and appendectomy POD#2, now w. likely ileus -NPO -NGT placed, low continuous suction -will increase IVF -serial abd exams -c/w pain management -d/w attending Zemaitis PGY3
[2017-11-13 10:58] LABS: ALB/GLOB RATIO 0.7 (1.1-1.8)
--- NOTE | 2017-11-13 14:58 | PN ---
DATE: SUBJECTIVE: I saw Raza this morning, he is postop day #1 after small bowel resection for small bowel obstruction. He has an NG tube in place, also clear fluids are in front of him that have to be adjusted. He is having some abdominal pain and he is a little bit uncomfortable. He is on Colace, dextrose, Dilaudid, Tivicay, Fergon, heparin, Lopressor, Lovenox, Merrem IV, Nephro-Christel, nystatin powder, Protonix, Renagel, Tylenol, Ultram, Zofran and Zyloprim. PHYSICAL EXAMINATION: VITAL SIGNS: A 99.1 temperature, it was 100.8, it is coming down; 93 pulse; 99/62 blood pressure; 18 respiratory rate, 96% O2 sat on 2 liters. HEENT: His head is atraumatic, normocephalic. Oxygen is on. NG tube is in place. GENERAL: He is alert, fairly comfortable. HEART: Regular rate. LUNGS: Decreased breath sounds, but clear. ABDOMEN: Bandaged. Decreased bowel sounds. He did pass gas. EXTREMITIES: He does have an AKA and in the leg, there is no edema. LABORATORY DATA: He has a 16.7 white count, 9.9 hemoglobin, 31.4 hematocrit with a 434 platelets. He has a 138 sodium, potassium of 3.6, BUN 30, creatinine 6.8, on dialysis. Last blood sugar was 82, calcium is 8.4, total bilirubin is 0.4, AST is 38, ALT is 23, alkaline phosphatase is 84, total protein 6.5. ASSESSMENT AND PLAN: He is being followed by Surgery, Infectious Disease, Renal, Urology. We will continue with aggressive treatment and care on Merrem. He has sepsis, urinary tract infection, umbilical hernia, appendectomy. He has had postop day #1 for exploratory laparotomy with adhesiolysis. We will watch him very closely. Eventually, he will go to [facility]. Parag Brownlee DO
[2017-11-13] MEDS ORDERED: Dextrose 50% SYRINGE Inj (50 ml) IVP ONE (16:23)
[2017-11-13] MEDS: Dextrose 5%/0.45% NS 1,000 ML IV SCH (16:53)
[2017-11-13] MEDS: Non Formulary Medication (Dolutegravir Sodium [Tivicay] 50 MG) PO SCH (16:54)
[2017-11-13] MEDS: Enoxaparin 30 mg Syringe SC SCH (16:55)
[2017-11-13] MEDS: Nystatin 100,000 Units/gm Topical Pow(15 gm) TOP SCH (16:56)
[2017-11-13] MEDS: Multivitamin Vitamin B Complex (Nephro-Vite) Tab PO SCH (16:56)
[2017-11-13] MEDS: Meropenem 500 MG in Sodium Chloride 0.9% 50 ML IVPB SCH (16:58)
--- NOTE | 2017-11-13 17:12 | CP.PCM.PN ---
Subjective - Date & Time of Evaluation Date of Evaluation: 11/13/17 Time of Evaluation: 17:11 - Subjective Subjective: Nephrology Consultation Note: Assessment:stable High grade SBO s/p surgery, appendectomy UTI, Hyperkalemia hx of prostate CA Hypertensive Chronic Kidney Disease (I12.9) ESRD on HD via permacath (TTS) Anemia (D64.9), HTN (I12.9) HIV on HAART, PVD s/p angioplasty s/p Rt AKA Plan plan for HD today as per TTS. nephrovite 1 tab/day. aransep 40 mcg weekly for anemia 11/13/17. PRBC as needed . last Hb 9.6 hold phosphorus binders while pt NPO Hypertension control with meds as ordered. Patient was on RAAS edyta as losartan>>held for now due to BP on low side. hold norvasc ID, , Surgery and GI following Dose meds/antibiotics for ESRD status. Avoid fleets enema/magnesium based laxatives. Avoid nephrotoxins/NSAIDs/ iodinated contrast (unless needed emergently) Further work up/management as per primary team. Thanks for allowing me to participate in care of your patient. Will follow patient with you. Please call if any Qs. Dr Yandel Arechiga Office: [phone] reason for consult: ESRD, HTN HPI: Pt is a 72 y/o M with hx of HIV on HAART, PVD s/p angioplasty, Rt AKA, hypertension (10-15 years), ESRD on HD (via permacath) TTS @ [facility] [place], left foot toe amputations, prostate CA presented with groin pain and cloudy urine. being managed for UTI renal consult for ESRD, HTN management pt doesn't feel well. says everything is bothering him as lower ext pain, groin pain. says alcala catheter was removed 2 weeks ago ROS: denies CP/SOB. all other neg except as in HPI. c/o abdomen pain Physical Examination: seen on HD General Appearance: uncomfortable, in no acute respiratory distress, facial muscles wasted, ill appearing Vitals reviewed and noted as below Head; Atraumatic, normocephalic ENT: no ulcers no thrush. Tongue is midline dry. Oropharynx: no rash or ulcers. EYES: Pupils are equal, round and reactive to light accommodation. Eye muscles and extraocular movement intact. Sclera is anicteric. Neck; supple no lymphadenopathy, no thyromegaly or bruit Lungs: Normal respiratory rate/effort. Breath sounds bilateral clear Heart: Normal rate. s1s2 normal. No rub or gallop. Extremities: no edema. No varicose veins. s/p Rt AKA Neurological: Patient is alert oriented x 3 follow commands,. no focal deficit Skin: Warm and dry. Normal turgor. Palpitation: Normal elasticity for age. has inguinal erythematous rash Abdomen: Abdomen is soft. Bowel sounds decreased. s/p surgery, has binders and dressing overlying Psych: limited insight. flat affect MSK: Digits and nails normal, left foot toe amputations in past. Rt AKA. : kidney not palpable. has alcala Access: permacath and maturing left AVF Labs/imaging/EKG reviewed. Past medical history, past surgical history, family history, social history, allergy reviewed and noted as below Family hx: sister was on dialysis. Rest non-contributory Objective - Vital Signs/Intake and Output Vital Signs (last 24 hours): Temp Pulse Resp BP Pulse Ox 99.1 F 93 H 18 99/62 L 96 11/13/17 07:30 11/13/17 07:30 11/13/17 07:30 11/13/17 07:30 11/13/17 07:30 Intake and Output: 11/13/17 11/13/17 06:59 18:59 Intake Total 300 Output Total 0 Balance 300 - Medications Medications: Current Medications Acetaminophen (Tylenol 325mg Tab) 650 mg PO Q4H PRN PRN Reason: Fever >100.4 F Last Admin: 11/12/17 21:32 Dose: 650 mg Allopurinol (Zyloprim) 300 mg PO DAILY [facility] Last Admin: 11/13/17 16:57 Dose: Not Given Docusate Sodium (Colace Liquid) 100 mg PO TID [facility] Last Admin: 11/13/17 16:52 Dose: Not Given Enoxaparin Sodium (Lovenox) 30 mg SC DAILY [facility] PRN Reason: Protocol Last Admin: 11/13/17 16:55 Dose: Not Given Ferrous Gluconate (Fergon) 324 mg PO TID [facility] Last Admin: 11/13/17 16:54 Dose: Not Given Heparin Sodium (Porcine) (Heparin) 2,000 units IVP TTS [facility] PRN Reason: Protocol Last Admin: 11/10/17 10:01 Dose: Not Given Heparin Sodium (Porcine) (Heparin) 2,200 units ICA [facility] Last Admin: 11/10/17 11:17 Dose: 2,200 units Heparin Sodium (Porcine) (Heparin) 2,400 units ICV [facility] Last Admin: 11/10/17 11:19 Dose: 2,400 units Hydromorphone HCl (Dilaudid) 0.5 mg IVP Q4H PRN PRN Reason: Pain, severe (8-10) Last Admin: 11/11/17 21:18 Dose: 0.5 mg Meropenem 500 mg/ Sodium (Chloride) 50 mls @ 100 mls/hr IVPB Q24H [facility] PRN Reason: Protocol Last Admin: 11/13/17 16:58 Dose: 100 mls/hr Dextrose/Sodium Chloride (Dextrose 5%/0.45% Ns 1000 Ml) 1,000 mls @ 100 mls/hr IV .Q10H [facility] Last Admin: 11/13/17 16:53 Dose: 100 mls/hr Metoprolol Tartrate (Lopressor) 100 mg PO Q12 [facility] Last Admin: 11/13/17 16:55 Dose: Not Given Non-Formulary Medication (Dolutegravir Sodium [Tivicay]) 50 mg PO DAILY [facility] Last Admin: 11/13/17 16:54 Dose: Not Given Nystatin (Nystop Topical Powder) 0 gm TOP BID [facility] Stop: 11/20/17 13:01 Last Admin: 11/13/17 16:56 Dose: Not Given Ondansetron HCl (Zofran Inj) 4 mg IVP Q4H PRN PRN Reason: Nausea/Vomiting Last Admin: 11/13/17 06:31 Dose: 4 mg Ondansetron HCl (Zofran Tab) 4 mg PO Q4 PRN PRN Reason: Nausea/Vomiting Last Admin: 11/10/17 11:45 Dose: 4 mg Pantoprazole Sodium (Protonix Inj) 40 mg IVP Q12 [facility] Last Admin: 11/13/17 16:56 Dose: Not Given Sevelamer HCl (Renagel) 1,600 mg PO TID [facility] Last Admin: 11/13/17 16:57 Dose: Not Given Tramadol HCl (Ultram) 50 mg PO Q8H PRN PRN Reason: Pain, moderate (4-7) Last Admin: 11/08/17 20:16 Dose: 50 mg Vitamin B Complex/Vit C/Folic Acid (Nephro-Christel) 1 tab PO DAILY [facility] Last Admin: 11/13/17 16:56 Dose: Not Given - Labs Labs: 11/13/17 10:15 11/13/17 10:15 PT 13.5 SECONDS (9.4-12.5) H 11/11/17 09:30 INR 1.17 (0.93-1.08) H 11/11/17 09:30 APTT 34.4 Seconds (25.1-36.5) 11/11/17 09:30
[2017-11-14] MEDS: Dextrose 5%/0.45% NS 1,000 ML IV SCH (00:36)
--- NOTE | 2017-11-14 01:22 | PN ---
DATE: 11/13/2017 SUBJECTIVE: Patient is seen in bed, in no acute distress, nontoxic. PHYSICAL EXAMINATION: VITAL SIGNS: Temperature is 98, T-max is 100.8, blood pressure is 98/60, respiratory rate 18. HEENT: Unremarkable. NECK: Supple. LUNGS: Decreased breath sounds. HEART: Normal S1, S2. ABDOMEN: Soft, nontender. LABORATORY DATA: White count of 20,700, hemoglobin of 9. Creatinine 8.8. Urinalysis is noted. Microbiology is reviewed. ASSESSMENT AND PLAN: This 72-year-old male was seen earlier this morning in 569, bed 1, with sepsis due to urinary tract infection and apparent cystitis on top of small bowel obstruction, status post exploratory laparotomy, lysis of adhesion, repair of umbilical hernia, and appendectomy, post procedure day #3 in a patient with hypertension, prostate cancer, HIV, on meropenem. We will continue to monitor WBC count. Concerned his white count is 20,000 today. We will check on the white count tomorrow. Consider repeating panculture, septic workup and a CAT scan of the abdomen and pelvis. Chest x-ray from today was reported to be no active disease. Pathology report is reviewed. Cesar Flowers MD
[2017-11-14 07:08] LABS: MEAN CELL VOLUME 95.6 fl (80.0-105.0); MEAN CORPUSCULAR HEMOGLOBIN 30.5 pg (25.0-35.0); MEAN CORPUSCULAR HGB CONC 31.9 g/dl (31.0-37.0); RBC 2.95 10^6/uL (3.5-6.1); RED CELL DISTRIBUTION WIDTH 17.5 % (11.5-14.5); WHITE BLOOD COUNT 17.1 10^3/ul (4.5-11.0)
[2017-11-14 07:25] LABS: ALB/GLOB RATIO 0.7 (1.1-1.8); ALBUMIN 2.8 g/dL (3.0-4.8); CALCIUM 8.7 mg/dL (8.4-10.5)
[2017-11-14] MEDS ORDERED: POTASSIUM CHLORIDE 20 MEQ IVPB ONE (09:00)
[2017-11-14] MEDS: Enoxaparin 30 mg Syringe SC SCH (10:08)
--- NOTE | 2017-11-14 12:58 | PN ---
DATE: SUBJECTIVE: He is resting comfortably in bed. He has an NG tube in place. Multiple IVs are running. He is alert. He is talking. He is talking about his teeth that are missing. He is not on any pain. He did not pass any gas. His belly is okay. He is on Colace, dextrose, Dilaudid for pain, Tivicay, Fergon, heparin, Lopressor, Lovenox, Merrem IV, Nephro-Christel, nystatin powder, Protonix, Renagel, Tylenol, Ultram, Zofran and Zyloprim. PHYSICAL EXAMINATION VITAL SIGNS: He has a 98.1 temperature, 110 pulse, 127/65 blood pressure, 20 respiratory rate, 100% O2 saturation on room air. HEENT: Head is atraumatic, normocephalic. NG tube in place. Throat is dry. HEART: Regular rate. LUNGS: Decreased breath sounds. ABDOMEN: Bandaged, status post small bowel obstruction surgery. EXTREMITIES: He has a left AKA and no edema. LABORATORY DATA: He has 17.1 white count, still elevated, coming down; 9 hemoglobin, 28.2 hematocrit with 408,000 platelets. He has a 139 sodium; potassium 3.1, he has got some potassium today. BUN is 26, creatinine 5.7. He is on dialysis. GFR is 10, sugar is 117, calcium is 8.7, total bili is 0.3, AST is 40, ALT is 21, alkaline phosphatase 104, total protein 6.9. ASSESSMENT AND PLAN: He has got urinary tract infection, sepsis, fall. He has abdominal pain; small bowel obstruction, status post surgery. He is being seen by Infectious Disease, Renal, Surgery. He has multiple issues after potassium is replaced. We will check his labs tomorrow. He has small bowel obstruction, status post lysis of adhesions; repair of umbilical hernia. He has got HIV, prostate cancer. He is on Merrem for urinary tract infection. Parag Brownlee DO
--- NOTE | 2017-11-14 13:50 | CP.PCM.PN ---
Subjective - Date & Time of Evaluation Date of Evaluation: 11/14/17 Time of Evaluation: 13:47 - Subjective Subjective: Surgery Patient seen and examined. Denies Fever, chills, vomiting. NG tube placed yesterday for nausea and abd pain. c/o abdominal pain. Reports OOB. Denies flatus. Objective - Vital Signs/Intake and Output Vital Signs (last 24 hours): Temp Pulse Resp BP Pulse Ox 98.1 F 110 H 20 127/65 100 11/14/17 07:30 11/14/17 07:30 11/14/17 07:30 11/14/17 07:30 11/14/17 07:30 Intake and Output: 11/14/17 11/14/17 06:59 18:59 Intake Total 1200 Output Total 900 Balance 300 - Medications Medications: Current Medications Acetaminophen (Tylenol 325mg Tab) 650 mg PO Q4H PRN PRN Reason: Fever >100.4 F Last Admin: 11/12/17 21:32 Dose: 650 mg Acetaminophen (Tylenol 650 Mg Supp) 650 mg RC Q6H PRN PRN Reason: Fever >100.4 F Allopurinol (Zyloprim) 300 mg PO DAILY [facility] Last Admin: 11/13/17 16:57 Dose: Not Given Docusate Sodium (Colace Liquid) 100 mg PO TID [facility] Last Admin: 11/13/17 16:52 Dose: Not Given Enoxaparin Sodium (Lovenox) 30 mg SC DAILY [facility] PRN Reason: Protocol Last Admin: 11/14/17 10:08 Dose: 30 mg Ferrous Gluconate (Fergon) 324 mg PO TID [facility] Last Admin: 11/13/17 16:54 Dose: Not Given Heparin Sodium (Porcine) (Heparin) 2,000 units IVP TTS [facility] PRN Reason: Protocol Last Admin: 11/10/17 10:01 Dose: Not Given Heparin Sodium (Porcine) (Heparin) 2,200 units ICA [facility] Last Admin: 11/10/17 11:17 Dose: 2,200 units Heparin Sodium (Porcine) (Heparin) 2,400 units ICV TUTA [facility] Last Admin: 11/10/17 11:19 Dose: 2,400 units Hydromorphone HCl (Dilaudid) 0.5 mg IVP Q4H PRN PRN Reason: Pain, severe (8-10) Last Admin: 11/11/17 21:18 Dose: 0.5 mg Meropenem 500 mg/ Sodium (Chloride) 50 mls @ 100 mls/hr IVPB Q24H [facility] PRN Reason: Protocol Last Admin: 11/13/17 16:58 Dose: 100 mls/hr Dextrose/Sodium Chloride (Dextrose 5%/0.45% Ns 1000 Ml) 1,000 mls @ 100 mls/hr IV .Q10H [facility] Last Admin: 11/14/17 00:36 Dose: 100 mls/hr Metoprolol Tartrate (Lopressor) 100 mg PO Q12 [facility] Last Admin: 11/13/17 21:00 Dose: Not Given Non-Formulary Medication (Dolutegravir Sodium [Tivicay]) 50 mg PO DAILY [facility] Last Admin: 11/13/17 16:54 Dose: Not Given Nystatin (Nystop Topical Powder) 0 gm TOP BID [facility] Stop: 11/20/17 13:01 Last Admin: 11/13/17 16:56 Dose: Not Given Ondansetron HCl (Zofran Inj) 4 mg IVP Q4H PRN PRN Reason: Nausea/Vomiting Last Admin: 11/13/17 06:31 Dose: 4 mg Ondansetron HCl (Zofran Tab) 4 mg PO Q4 PRN PRN Reason: Nausea/Vomiting Last Admin: 11/10/17 11:45 Dose: 4 mg Pantoprazole Sodium (Protonix Inj) 40 mg IVP Q12 [facility] Last Admin: 11/14/17 10:08 Dose: 40 mg Sevelamer HCl (Renagel) 1,600 mg PO TID [facility] Last Admin: 11/13/17 16:57 Dose: Not Given Tramadol HCl (Ultram) 50 mg PO Q8H PRN PRN Reason: Pain, moderate (4-7) Last Admin: 11/08/17 20:16 Dose: 50 mg Vitamin B Complex/Vit C/Folic Acid (Nephro-Christel) 1 tab PO DAILY [facility] Last Admin: 11/13/17 16:56 Dose: Not Given - Labs Labs: 11/14/17 06:35 11/14/17 06:35 PT 13.5 SECONDS (9.4-12.5) H 11/11/17 09:30 INR 1.17 (0.93-1.08) H 11/11/17 09:30 APTT 34.4 Seconds (25.1-36.5) 11/11/17 09:30 - Constitutional Appears: Cachectic, Chronically Ill - Head Exam Head Exam: ATRAUMATIC, NORMAL INSPECTION, NORMOCEPHALIC - Eye Exam Eye Exam: EOMI, Normal appearance, PERRL Pupil Exam: NORMAL ACCOMODATION, PERRL - ENT Exam ENT Exam: Mucous Membranes Moist, Normal Exam Additional comments: NGT in place - Neck Exam Neck Exam: Full ROM, Normal Inspection. absent: Lymphadenopathy - Cardiovascular Exam Cardiovascular Exam: Tachycardia, +S1, +S2. absent: Murmur - GI/Abdominal Exam GI & Abdominal Exam: Distended, Soft, Tenderness. absent: Firm, Guarding Additional comments: Incision Clean and intact. Tomas in place. - Extremities Exam Additional comments: R AKA - Back Exam Additional comments: sacral wound has optiform - Neurological Exam Neurological Exam: Alert, Awake, CN II-XII Intact, Oriented x3 - Psychiatric Exam Psychiatric exam: Normal Affect, Normal Mood - Skin Skin Exam: Dry, Intact, Normal Color, Warm Assessment and Plan - Assessment and Plan (Free Text) Assessment: 72M w. SBO s/p ex-lap w. OTF and appendectomy POD#3, now w. likely ileus -NPO -NGT placed, low continuous suction -IVF -serial abd exams -c/w pain management -Will d/w attending
[2017-11-14] MEDS: Meropenem 500 MG in Sodium Chloride 0.9% 50 ML IVPB SCH (15:02)
[2017-11-14] MEDS: Multivitamin Vitamin B Complex (Nephro-Vite) Tab PO SCH (15:02)
[2017-11-14] MEDS: Non Formulary Medication (Dolutegravir Sodium [Tivicay] 50 MG) PO SCH (15:04)
[2017-11-14] MEDS: Nystatin 100,000 Units/gm Topical Pow(15 gm) TOP SCH ×4 (15:05→21:02)
--- NOTE | 2017-11-14 16:28 | CP.PCM.PN ---
Subjective - Date & Time of Evaluation Date of Evaluation: 11/14/17 Time of Evaluation: 16:27 - Subjective Subjective: Nephrology Consultation Note: Assessment:stable High grade SBO s/p surgery, appendectomy UTI, Hyperkalemia hx of prostate CA Hypertensive Chronic Kidney Disease (I12.9) ESRD on HD via permacath (TTS) Anemia (D64.9), HTN (I12.9) HIV on HAART, PVD s/p angioplasty s/p Rt AKA Plan plan for HD tomorrow as per TTS. nephrovite 1 tab/day. aransep 40 mcg weekly for anemia 11/13/17. PRBC as needed . last Hb 9. hold phosphorus binders while pt NPO Hypertension control with meds as ordered. Patient was on RAAS edyta as losartan>>held for now due to BP on low side. hold norvasc ID, , Surgery and GI following Dose meds/antibiotics for ESRD status. Avoid fleets enema/magnesium based laxatives. Avoid nephrotoxins/NSAIDs/ iodinated contrast (unless needed emergently) Further work up/management as per primary team. Thanks for allowing me to participate in care of your patient. Will follow patient with you. Please call if any Qs. Dr Yandel Arechiga Office: [phone] reason for consult: ESRD, HTN HPI: Pt is a 72 y/o M with hx of HIV on HAART, PVD s/p angioplasty, Rt AKA, hypertension (10-15 years), ESRD on HD (via permacath) TTS @ [facility] [place], left foot toe amputations, prostate CA presented with groin pain and cloudy urine. being managed for UTI renal consult for ESRD, HTN management pt doesn't feel well. says everything is bothering him as lower ext pain, groin pain. says alcala catheter was removed 2 weeks ago ROS: denies CP/SOB. all other neg except as in HPI. improved abdomen pain Physical Examination: General Appearance: uncomfortable, in no acute respiratory distress, facial muscles wasted, ill appearing Vitals reviewed and noted as below Head; Atraumatic, normocephalic ENT: no ulcers no thrush. Tongue is midline dry. Oropharynx: no rash or ulcers. has ng tube EYES: Pupils are equal, round and reactive to light accommodation. Eye muscles and extraocular movement intact. Sclera is anicteric. Neck; supple no lymphadenopathy, no thyromegaly or bruit Lungs: Normal respiratory rate/effort. Breath sounds bilateral clear Heart: Normal rate. s1s2 normal. No rub or gallop. Extremities: no edema. No varicose veins. s/p Rt AKA Neurological: Patient is alert oriented x 3 follow commands,. no focal deficit Skin: Warm and dry. Normal turgor. Palpitation: Normal elasticity for age. has inguinal erythematous rash Abdomen: Abdomen is soft. Bowel sounds decreased. s/p surgery, ashely + Psych: limited insight. flat affect MSK: Digits and nails normal, left foot toe amputations in past. Rt AKA. : kidney not palpable. has alcala Access: permacath and maturing left AVF Labs/imaging/EKG reviewed. Past medical history, past surgical history, family history, social history, allergy reviewed and noted as below Family hx: sister was on dialysis. Rest non-contributory Objective - Vital Signs/Intake and Output Vital Signs (last 24 hours): Temp Pulse Resp BP Pulse Ox 98.1 F 110 H 20 127/65 100 11/14/17 07:30 11/14/17 07:30 11/14/17 07:30 11/14/17 07:30 11/14/17 07:30 Intake and Output: 11/14/17 11/14/17 06:59 18:59 Intake Total 1200 0 Output Total 900 Balance 300 0 - Medications Medications: Current Medications Acetaminophen (Tylenol 325mg Tab) 650 mg PO Q4H PRN PRN Reason: Fever >100.4 F Last Admin: 11/12/17 21:32 Dose: 650 mg Acetaminophen (Tylenol 650 Mg Supp) 650 mg RC Q6H PRN PRN Reason: Fever >100.4 F Allopurinol (Zyloprim) 300 mg PO DAILY [facility] Last Admin: 11/14/17 15:02 Dose: 300 mg Docusate Sodium (Colace Liquid) 100 mg PO TID [facility] Last Admin: 11/14/17 15:03 Dose: 100 mg Enoxaparin Sodium (Lovenox) 30 mg SC DAILY [facility] PRN Reason: Protocol Last Admin: 11/14/17 10:08 Dose: 30 mg Ferrous Gluconate (Fergon) 324 mg PO TID [facility] Last Admin: 11/14/17 15:04 Dose: Not Given Heparin Sodium (Porcine) (Heparin) 2,000 units IVP TTS [facility] PRN Reason: Protocol Last Admin: 11/10/17 10:01 Dose: Not Given Heparin Sodium (Porcine) (Heparin) 2,200 units ICA [facility] Last Admin: 11/10/17 11:17 Dose: 2,200 units Heparin Sodium (Porcine) (Heparin) 2,400 units ICV [facility] Last Admin: 11/10/17 11:19 Dose: 2,400 units Hydromorphone HCl (Dilaudid) 0.5 mg IVP Q4H PRN PRN Reason: Pain, severe (8-10) Last Admin: 11/11/17 21:18 Dose: 0.5 mg Meropenem 500 mg/ Sodium (Chloride) 50 mls @ 100 mls/hr IVPB Q24H [facility] PRN Reason: Protocol Last Admin: 11/14/17 15:02 Dose: 100 mls/hr Dextrose/Sodium Chloride (Dextrose 5%/0.45% Ns 1000 Ml) 1,000 mls @ 100 mls/hr IV .Q10H [facility] Last Admin: 11/14/17 00:36 Dose: 100 mls/hr Metoprolol Tartrate (Lopressor) 100 mg PO Q12 [facility] Last Admin: 11/14/17 15:04 Dose: Not Given Non-Formulary Medication (Dolutegravir Sodium [Tivicay]) 50 mg PO DAILY [facility] Last Admin: 11/14/17 15:04 Dose: Not Given Nystatin (Nystop Topical Powder) 0 gm TOP BID [facility] Stop: 11/20/17 13:01 Last Admin: 11/14/17 15:05 Dose: 1 applic Ondansetron HCl (Zofran Inj) 4 mg IVP Q4H PRN PRN Reason: Nausea/Vomiting Last Admin: 11/13/17 06:31 Dose: 4 mg Ondansetron HCl (Zofran Tab) 4 mg PO Q4 PRN PRN Reason: Nausea/Vomiting Last Admin: 11/10/17 11:45 Dose: 4 mg Pantoprazole Sodium (Protonix Inj) 40 mg IVP Q12 [facility] Last Admin: 11/14/17 10:08 Dose: 40 mg Sevelamer HCl (Renagel) 1,600 mg PO TID [facility] Last Admin: 11/14/17 15:06 Dose: Not Given Tramadol HCl (Ultram) 50 mg PO Q8H PRN PRN Reason: Pain, moderate (4-7) Last Admin: 11/08/17 20:16 Dose: 50 mg Vitamin B Complex/Vit C/Folic Acid (Nephro-Christel) 1 tab PO DAILY [facility] Last Admin: 11/14/17 15:02 Dose: 1 tab - Labs Labs: 11/14/17 06:35 11/14/17 06:35 PT 13.5 SECONDS (9.4-12.5) H 11/11/17 09:30 INR 1.17 (0.93-1.08) H 11/11/17 09:30 APTT 34.4 Seconds (25.1-36.5) 11/11/17 09:30
--- NOTE | 2017-11-14 18:05 | CP.PCM.CON ---
<Janice Martinez - Last Filed: 11/14/17 18:02> History of Present Illness - History of Present Illness History of Present Illness: 72[address] Caldwell's service seen at bedside for left foot pain. Pt has history of amputations and R AKA. At present, pt is unable to verbalize pedal complaints - family member at bedside states he has been complaining of discomfort to the left heel. She denies any recent trauma. Denies any new wounds to the LLE. Per chart, patient is afebrile. Review of Systems - Review of Systems All systems: reviewed and no additional remarkable complaints except (per HPI) Past Patient History - Infectious Disease Hx of Infectious Diseases: None - Tetanus Immunizations Tetanus Immunization: Up to Date - Past Medical History & Family History Past Medical History?: Yes - Past Social History Smoking Status: Never Smoked - CARDIAC Hx Cardiac Disorders: Yes Hx Hypertension: Yes - PULMONARY Hx Chronic Obstructive Pulmonary Disease (COPD): Yes - NEUROLOGICAL Hx Vertigo: Yes - HEENT Hx HEENT Problems: No - RENAL Hx Chronic Kidney Disease: Yes - ENDOCRINE/METABOLIC Hx Diabetes Mellitus Type 2: Yes - HEMATOLOGICAL/ONCOLOGICAL Hx Blood Transfusions: No Hx Blood Transfusion Reaction: No - INTEGUMENTARY Hx Dermatological Problems: Yes Hx Cellulitis: Yes Other/Comment: dry gangrene and osteomyelitis L foot - MUSCULOSKELETAL/RHEUMATOLOGICAL Hx Falls: Yes - GASTROINTESTINAL Hx Gastroesophageal Reflux: Yes - GENITOURINARY/GYNECOLOGICAL Hx Genitourinary Disorders: Yes Hx Prostate Cancer: Yes - PSYCHIATRIC Hx Substance Use: No - SURGICAL HISTORY Hx Surgeries: Yes - ANESTHESIA Hx Anesthesia Reactions: No Hx Malignant Hyperthermia: No Meds Allergies/Adverse Reactions: Allergies Allergy/AdvReac Type Severity Reaction Status Date / Time banana Allergy SWELLING Verified 08/08/17 04:43 shrimp Allergy SWELLING Verified 08/08/17 04:43 - Medications Medications: Current Medications Acetaminophen (Tylenol 325mg Tab) 650 mg PO Q4H PRN PRN Reason: Fever >100.4 F Last Admin: 11/12/17 21:32 Dose: 650 mg Acetaminophen (Tylenol 650 Mg Supp) 650 mg RC Q6H PRN PRN Reason: Fever >100.4 F Allopurinol (Zyloprim) 300 mg PO DAILY [facility] Last Admin: 11/14/17 15:02 Dose: 300 mg Docusate Sodium (Colace Liquid) 100 mg PO TID [facility] Last Admin: 11/14/17 15:03 Dose: 100 mg Enoxaparin Sodium (Lovenox) 30 mg SC DAILY [facility] PRN Reason: Protocol Last Admin: 11/14/17 10:08 Dose: 30 mg Ferrous Gluconate (Fergon) 324 mg PO TID [facility] Last Admin: 11/14/17 15:04 Dose: Not Given Heparin Sodium (Porcine) (Heparin) 2,000 units IVP TTS [facility] PRN Reason: Protocol Last Admin: 11/10/17 10:01 Dose: Not Given Heparin Sodium (Porcine) (Heparin) 2,200 units ICA [facility] Last Admin: 11/10/17 11:17 Dose: 2,200 units Heparin Sodium (Porcine) (Heparin) 2,400 units ICV [facility] Last Admin: 11/10/17 11:19 Dose: 2,400 units Hydromorphone HCl (Dilaudid) 0.5 mg IVP Q4H PRN PRN Reason: Pain, severe (8-10) Last Admin: 11/11/17 21:18 Dose: 0.5 mg Meropenem 500 mg/ Sodium (Chloride) 50 mls @ 100 mls/hr IVPB Q24H [facility] PRN Reason: Protocol Last Admin: 11/14/17 15:02 Dose: 100 mls/hr Dextrose/Sodium Chloride (Dextrose 5%/0.45% Ns 1000 Ml) 1,000 mls @ 100 mls/hr IV .Q10H [facility] Last Admin: 11/14/17 00:36 Dose: 100 mls/hr Metoprolol Tartrate (Lopressor) 100 mg PO Q12 [facility] Last Admin: 11/14/17 15:04 Dose: Not Given Non-Formulary Medication (Dolutegravir Sodium [Tivicay]) 50 mg PO DAILY [facility] Last Admin: 11/14/17 15:04 Dose: Not Given Nystatin (Nystop Topical Powder) 0 gm TOP BID [facility] Stop: 11/20/17 13:01 Last Admin: 11/14/17 15:05 Dose: 1 applic Ondansetron HCl (Zofran Inj) 4 mg IVP Q4H PRN PRN Reason: Nausea/Vomiting Last Admin: 11/13/17 06:31 Dose: 4 mg Ondansetron HCl (Zofran Tab) 4 mg PO Q4 PRN PRN Reason: Nausea/Vomiting Last Admin: 11/10/17 11:45 Dose: 4 mg Pantoprazole Sodium (Protonix Inj) 40 mg IVP Q12 [facility] Last Admin: 11/14/17 10:08 Dose: 40 mg Sevelamer HCl (Renagel) 1,600 mg PO TID [facility] Last Admin: 11/14/17 15:06 Dose: Not Given Tramadol HCl (Ultram) 50 mg PO Q8H PRN PRN Reason: Pain, moderate (4-7) Last Admin: 11/08/17 20:16 Dose: 50 mg Vitamin B Complex/Vit C/Folic Acid (Nephro-Christel) 1 tab PO DAILY [facility] Last Admin: 11/14/17 15:02 Dose: 1 tab Physical Exam - Constitutional Appears: Well, Non-toxic, No Acute Distress - Extremities Exam Additional comments: Phong IGNACIO focused exam: Vasc: DP/PT pulses palpable 1/4. Temperature gradient warm to cool. CFT < 3 sec to all digits. No pedal edema noted Derm: Stage 1 non-blanchable erythematous pressure ulceration noted to heel. No open lesions, no ecchymosis, skin and soft tissue intact. Elongated toenails x2. Neuro: Protective sensation grossly diminished Ortho: 1st-3rd digit amputations noted to L foot. Charcot midfoot changes - Neurological Exam Neurological exam: Alert - Psychiatric Exam Psychiatric exam: Normal Affect, Normal Mood Results - Vital Signs Recent Vital Signs: Last Vital Signs Temp 98.1 F 11/14/17 07:30 Pulse 110 H 11/14/17 07:30 Resp 20 11/14/17 07:30 BP 127/65 11/14/17 07:30 Pulse Ox 100 11/14/17 07:30 - Labs Result Diagrams: 11/14/17 06:35 11/14/17 06:35 Labs: Laboratory Results - last 24 hr 11/11/17 11/13/17 11/14/17 06:30 20:53 06:35 WBC 17.1 H RBC 2.95 L Hgb 9.0 L Hct 28.2 L MCV 95.6 MCH 30.5 MCHC 31.9 RDW 17.5 H Plt Count 408 MPV 9.0 Sodium Potassium Chloride Carbon Dioxide Anion Gap BUN Creatinine Est GFR ( Amer) Est GFR (Non-Af Amer) POC Glucose (mg/dL) 110 Random Glucose Calcium Total Bilirubin AST ALT Alkaline Phosphatase Total Protein Albumin Globulin Albumin/Globulin Ratio Crossmatch See Detail 11/14/17 11/14/17 11/14/17 06:35 06:51 11:20 WBC RBC Hgb Hct MCV MCH MCHC RDW Plt Count MPV Sodium 139 Potassium 3.1 L Chloride 101 Carbon Dioxide 26 Anion Gap 15 BUN 26 H Creatinine 5.7 H Est GFR ( Amer) 12 Est GFR (Non-Af Amer) 10 POC Glucose (mg/dL) 121 H 110 Random Glucose 117 H Calcium 8.7 Total Bilirubin 0.3 AST 48 ALT 21 Alkaline Phosphatase 104 Total Protein 6.9 Albumin 2.8 L Globulin 4.2 Albumin/Globulin Ratio 0.7 L Crossmatch 11/14/17 15:52 WBC RBC Hgb Hct MCV MCH MCHC RDW Plt Count MPV Sodium Potassium Chloride Carbon Dioxide Anion Gap BUN Creatinine Est GFR ( Amer) Est GFR (Non-Af Amer) POC Glucose (mg/dL) 99 Random Glucose Calcium Total Bilirubin AST ALT Alkaline Phosphatase Total Protein Albumin Globulin Albumin/Globulin Ratio Crossmatch Assessment & Plan - Assessment and Plan (Free Text) Assessment: 72 y/o male with left heel stage 1 pressure ulceration secondary to bed bound status Plan: Pt seen and evaluated with attending Dr. Caldwell Labs and vitals reviewed Optifoam heel dressing applied to prevent worsening of stage 1 pressure ulcer Rx Multipodus boots to be worn at all times in bed Thank you for this consult, will continue to follow patient while in house <Suri Caldwell - Last Filed: 11/16/17 15:41> Meds - Medications Medications: Current Medications Acetaminophen (Tylenol 325mg Tab) 650 mg PO Q4H PRN PRN Reason: Fever >100.4 F Last Admin: 11/12/17 21:32 Dose: 650 mg Acetaminophen (Tylenol 650 Mg Supp) 650 mg RC Q6H PRN PRN Reason: Fever >100.4 F Last Admin: 11/15/17 06:18 Dose: 650 mg Allopurinol (Zyloprim) 300 mg PO DAILY [facility] Last Admin: 11/16/17 09:41 Dose: 300 mg Docusate Sodium (Colace Liquid) 100 mg PO TID [facility] Last Admin: 11/16/17 09:39 Dose: Not Given Enoxaparin Sodium (Lovenox) 30 mg SC DAILY [facility] PRN Reason: Protocol Last Admin: 11/16/17 09:42 Dose: 30 mg Ferrous Gluconate (Fergon) 324 mg PO TID [facility] Last Admin: 11/16/17 09:44 Dose: 324 mg Heparin Sodium (Porcine) (Heparin) 2,000 units IVP TTS [facility] PRN Reason: Protocol Last Admin: 11/15/17 11:37 Dose: 2,000 units Heparin Sodium (Porcine) (Heparin) 2,200 units ICA [facility] Last Admin: 11/15/17 11:35 Dose: 2,200 units Heparin Sodium (Porcine) (Heparin) 2,400 units ICV [facility] Last Admin: 11/15/17 11:36 Dose: 2,400 units Dextrose/Sodium Chloride (Dextrose 5%/0.45% Ns 1000 Ml) 1,000 mls @ 100 mls/hr IV .Q10H [facility] Last Admin: 11/15/17 13:36 Dose: Not Given Meropenem 250 mg/ Sodium (Chloride) 100 mls @ 100 mls/hr IVPB Q12H [facility] PRN Reason: Protocol Stop: 11/22/17 20:16 Last Admin: 11/16/17 10:42 Dose: 100 mls/hr Metoprolol Tartrate (Lopressor) 100 mg PO Q12 [facility] Last Admin: 11/16/17 09:41 Dose: 100 mg Non-Formulary Medication (Dolutegravir Sodium [Tivicay]) 50 mg PO DAILY [facility] Last Admin: 11/16/17 09:44 Dose: Not Given Nystatin (Nystop Topical Powder) 0 gm TOP BID [facility] Stop: 11/20/17 13:01 Last Admin: 11/16/17 09:43 Dose: 1 applic Ondansetron HCl (Zofran Inj) 4 mg IVP Q4H PRN PRN Reason: Nausea/Vomiting Last Admin: 11/13/17 06:31 Dose: 4 mg Ondansetron HCl (Zofran Tab) 4 mg PO Q4 PRN PRN Reason: Nausea/Vomiting Last Admin: 11/10/17 11:45 Dose: 4 mg Oxycodone HCl (Oxycodone Immediate Release Tab) 5 mg PO Q4H PRN PRN Reason: Pain, moderate (4-7) Last Admin: 11/16/17 09:47 Dose: 5 mg Pantoprazole Sodium (Protonix Inj) 40 mg IVP Q12 [facility] Last Admin: 11/16/17 09:40 Dose: 40 mg Sevelamer HCl (Renagel) 1,600 mg PO TID [facility] Last Admin: 11/16/17 08:07 Dose: 1,600 mg Vitamin B Complex/Vit C/Folic Acid (Nephro-Christel) 1 tab PO DAILY [facility] Last Admin: 11/16/17 09:41 Dose: 1 tab Results - Vital Signs Recent Vital Signs: Last Vital Signs Temp 98.8 F 11/16/17 08:32 Pulse 78 11/16/17 09:41 Resp 20 11/16/17 08:32 BP 121/70 11/16/17 09:41 Pulse Ox 95 11/16/17 08:32 - Labs Result Diagrams: 11/16/17 06:20 11/16/17 06:20 Labs: Laboratory Results - last 24 hr 11/15/17 11/16/17 11/16/17 23:10 06:20 06:20 WBC 13.3 H RBC 3.07 L Hgb 9.2 L Hct 28.9 L MCV 94.1 MCH 30.0 MCHC 31.8 RDW 19.1 H Plt Count 315 MPV 9.6 Sodium 137 Potassium 3.5 L Chloride 104 Carbon Dioxide 24 Anion Gap 12 BUN 21 Creatinine 4.5 H Est GFR ( Amer) 16 Est GFR (Non-Af Amer) 13 POC Glucose (mg/dL) 76 Random Glucose 89 Calcium 8.1 L Total Bilirubin 0.3 AST 43 ALT 20 Alkaline Phosphatase 94 Total Protein 6.1 Albumin 2.4 L Globulin 3.7 Albumin/Globulin Ratio 0.6 L 11/16/17 11:12 WBC RBC Hgb Hct MCV MCH MCHC RDW Plt Count MPV Sodium Potassium Chloride Carbon Dioxide Anion Gap BUN Creatinine Est GFR ( Amer) Est GFR (Non-Af Amer) POC Glucose (mg/dL) 52 L Random Glucose Calcium Total Bilirubin AST ALT Alkaline Phosphatase Total Protein Albumin Globulin Albumin/Globulin Ratio Attending/Attestation - Attestation I have personally seen and examined this patient.: Yes I have fully participated in the care of the patient.: Yes I have reviewed all pertinent clinical information: Yes Notes (Text): 11/16/17 15:41 I have reviewed chart seen patient developed the plan of care and agree with residents note
--- NOTE | 2017-11-14 21:00 | PN ---
DATE: 11/14/2017 SUBJECTIVE: The patient is in bed, in no acute distress, nontoxic, was seen early this morning. PHYSICAL EXAMINATION: VITAL SIGNS: With temperature of 98, blood pressure is 120/60, respiratory rate 20, heart rate of 110. HEENT: Unremarkable. NECK: Supple. LUNGS: Decreased breath sounds. HEART: Normal S1, S2. ABDOMEN: Soft, nontender. LABORATORY EXAMINATION: Reveals white count of 17,000, hemoglobin of 9, platelets of 408. Chemistries reveals a BUN of 26, creatinine of 5.7. PSA is noted and urinalysis is noted. Review of orders reveals the patient to be on meropenem. ASSESSMENT AND PLAN: A 72-year-old male with sepsis due to urinary tract infection, apparent cystitis on top of small bowel obstruction status post exploratory laparotomy, lysis of adhesion, repair of umbilical hernia and appendectomy postprocedure day #4, and the patient with hypertension, prostate cancer and human immunodeficiency virus. Currently on meropenem. Review of orders reveals the patient to be on meropenem. His white count appears to be improving at 17,000 in morning, we will continue to monitor that. Cesar Flowers MD
[2017-11-15] MEDS ORDERED: Sodium Chloride 0.9% 500 ML IV SCH (06:45)
--- NOTE | 2017-11-15 07:30 | RAD ---
HISTORY: distended, abd pain COMPARISON: Abdomen radiographs 11/08/2017. FINDINGS: BOWEL: There is diminishing dilatation of small-bowel in the abdomen with NG tube now placed coiled at the left upper quadrant abdomen. No gross free intrarenal gas. No definite abnormal internal calcifications or retained oral contrast renal throughout the colon may obscure underlying lesions. Skin ashely are identified in the inferior abdominal wall region. BONES: Normal. OTHER FINDINGS: A tunneled right center venous dialysis catheter is identified in position at the right chest. IMPRESSION: Diminishing dilatation of small bowel loops with retained oral contrast within large bowel now evident. Skin ashely identified at the mid to inferior mid abdominal wall region with and nasogastric tube in position left upper quadrant the abdomen.
[2017-11-15 08:01] LABS: HEMOGLOBIN 7.8 g/dL (14.0-18.0); MEAN CELL VOLUME 94.9 fl (80.0-105.0); MEAN CORPUSCULAR HEMOGLOBIN 30.7 pg (25.0-35.0); MEAN CORPUSCULAR HGB CONC 32.4 g/dl (31.0-37.0); MEAN PLATELET VOLUME 9.6 fl (7.0-11.0); RBC 2.54 10^6/uL (3.5-6.1); RED CELL DISTRIBUTION WIDTH 17.3 % (11.5-14.5); WHITE BLOOD COUNT 13.8 10^3/ul (4.5-11.0)
[2017-11-15 08:11] LABS: ALB/GLOB RATIO 0.6 (1.1-1.8); ALBUMIN 2.3 g/dL (3.0-4.8); CALCIUM 7.8 mg/dL (8.4-10.5)
[2017-11-15] MEDS ORDERED: Potassium Chloride 20 mEq ER Tab PO ONE (08:46)
--- NOTE | 2017-11-15 11:18 | CP.PCM.PN ---
Subjective - Date & Time of Evaluation Date of Evaluation: 11/15/17 Time of Evaluation: 11:13 - Subjective Subjective: Surgery: Dr. Martinez Pt seen and examined. Overnight pt hypotensive and tachycardic. He states that he is feeling better. Pain is improved. No N/V. Passing flatus. No BM Objective - Vital Signs/Intake and Output Vital Signs (last 24 hours): Temp Pulse Resp BP Pulse Ox 99 F 123 H 18 122/65 96 11/15/17 11:05 11/15/17 11:05 11/15/17 11:05 11/15/17 11:05 11/15/17 07:30 Intake and Output: 11/15/17 11/15/17 06:59 18:59 Intake Total 0 0 Output Total 450 Balance -450 0 - Medications Medications: Current Medications Acetaminophen (Tylenol 325mg Tab) 650 mg PO Q4H PRN PRN Reason: Fever >100.4 F Last Admin: 11/12/17 21:32 Dose: 650 mg Acetaminophen (Tylenol 650 Mg Supp) 650 mg RC Q6H PRN PRN Reason: Fever >100.4 F Last Admin: 11/15/17 06:18 Dose: 650 mg Allopurinol (Zyloprim) 300 mg PO DAILY [facility] Last Admin: 11/14/17 15:02 Dose: 300 mg Docusate Sodium (Colace Liquid) 100 mg PO TID [facility] Last Admin: 11/14/17 21:01 Dose: 100 mg Enoxaparin Sodium (Lovenox) 30 mg SC DAILY [facility] PRN Reason: Protocol Last Admin: 11/14/17 10:08 Dose: 30 mg Ferrous Gluconate (Fergon) 324 mg PO TID [facility] Last Admin: 11/14/17 21:01 Dose: 324 mg Heparin Sodium (Porcine) (Heparin) 2,000 units IVP TTS [facility] PRN Reason: Protocol Last Admin: 11/10/17 10:01 Dose: Not Given Heparin Sodium (Porcine) (Heparin) 2,200 units ICA [facility] Last Admin: 11/10/17 11:17 Dose: 2,200 units Heparin Sodium (Porcine) (Heparin) 2,400 units ICV [facility] Last Admin: 11/10/17 11:19 Dose: 2,400 units Hydromorphone HCl (Dilaudid) 0.5 mg IVP Q4H PRN PRN Reason: Pain, severe (8-10) Last Admin: 11/11/17 21:18 Dose: 0.5 mg Meropenem 500 mg/ Sodium (Chloride) 50 mls @ 100 mls/hr IVPB Q24H [facility] PRN Reason: Protocol Last Admin: 11/14/17 15:02 Dose: 100 mls/hr Dextrose/Sodium Chloride (Dextrose 5%/0.45% Ns 1000 Ml) 1,000 mls @ 100 mls/hr IV .Q10H [facility] Last Admin: 11/14/17 00:36 Dose: 100 mls/hr Sodium Chloride (Sodium Chloride 0.9%) 500 mls @ 500 mls/hr IV .Q1H [facility] Last Admin: 11/15/17 06:36 Dose: 500 mls/hr Metoprolol Tartrate (Lopressor) 100 mg PO Q12 [facility] Last Admin: 11/14/17 22:28 Dose: Not Given Non-Formulary Medication (Dolutegravir Sodium [Tivicay]) 50 mg PO DAILY [facility] Last Admin: 11/14/17 15:04 Dose: Not Given Nystatin (Nystop Topical Powder) 0 gm TOP BID [facility] Stop: 11/20/17 13:01 Last Admin: 11/14/17 21:02 Dose: 1 applic Ondansetron HCl (Zofran Inj) 4 mg IVP Q4H PRN PRN Reason: Nausea/Vomiting Last Admin: 11/13/17 06:31 Dose: 4 mg Ondansetron HCl (Zofran Tab) 4 mg PO Q4 PRN PRN Reason: Nausea/Vomiting Last Admin: 11/10/17 11:45 Dose: 4 mg Pantoprazole Sodium (Protonix Inj) 40 mg IVP Q12 [facility] Last Admin: 11/14/17 22:29 Dose: 40 mg Sevelamer HCl (Renagel) 1,600 mg PO TID [facility] Last Admin: 11/14/17 21:03 Dose: 1,600 mg Tramadol HCl (Ultram) 50 mg PO Q8H PRN PRN Reason: Pain, moderate (4-7) Last Admin: 11/14/17 21:03 Dose: 50 mg Vitamin B Complex/Vit C/Folic Acid (Nephro-Christel) 1 tab PO DAILY [facility] Last Admin: 11/14/17 15:02 Dose: 1 tab - Labs Labs: 11/15/17 07:40 11/15/17 07:40 PT 13.5 SECONDS (9.4-12.5) H 11/11/17 09:30 INR 1.17 (0.93-1.08) H 11/11/17 09:30 APTT 34.4 Seconds (25.1-36.5) 11/11/17 09:30 - Constitutional Appears: Non-toxic, No Acute Distress - Head Exam Head Exam: ATRAUMATIC, NORMOCEPHALIC - Eye Exam Eye Exam: EOMI - ENT Exam ENT Exam: Mucous Membranes Dry, Mucous Membranes Moist - Neck Exam Neck Exam: Full ROM - Respiratory Exam Respiratory Exam: NORMAL BREATHING PATTERN. absent: Accessory Muscle Use, Respiratory Distress - GI/Abdominal Exam GI & Abdominal Exam: Soft, Tenderness (per-incisional ). absent: Distended, Firm, Guarding, Rigid, Rebound - Neurological Exam Neurological Exam: Alert, Awake, Oriented x3 - Skin Skin Exam: Dry, Intact, Warm Assessment and Plan - Assessment and Plan (Free Text) Assessment: 72M w. SBO, s/p ex-lap w. OTF and appendectomy, POD#4 Plan: -NGT: 450cc/24hr bilious, will clamp -If no nausea, will start CLD -Hypotension/Tachycardia: 500cc NS bolus -OOB to chair and IS use -PT/OT as tolerated -d/w attending [employer] PGY3
[2017-11-15] MEDS: Multivitamin Vitamin B Complex (Nephro-Vite) Tab PO SCH (13:02)
[2017-11-15] MEDS: Non Formulary Medication (Dolutegravir Sodium [Tivicay] 50 MG) PO SCH (13:03)
[2017-11-15] MEDS: Enoxaparin 30 mg Syringe SC SCH (13:04)
[2017-11-15] MEDS: Meropenem 500 MG in Sodium Chloride 0.9% 50 ML IVPB SCH (13:29)
[2017-11-15] MEDS: Dextrose 5%/0.45% NS 1,000 ML IV SCH (13:36)
--- NOTE | 2017-11-15 13:56 | PN ---
DATE: SUBJECTIVE: I saw him in dialysis. He is resting comfortably, sleeping, on dialysis. He is on Colace, dextrose, Dilaudid, Tivicay, Fergon, heparin, Lopressor, Lovenox, Merrem IV, Nephro-Christel, nystatin, Protonix, Renagel, IV fluids, Tylenol, Ultram, Zofran, and Zyloprim. PHYSICAL EXAMINATION: GENERAL: He is alert. VITAL SIGNS: He has a 100 temperature, 104 pulse, 94/52 blood pressure, 20 respiratory rate, 100% O2 sat on nasal cannula. HEENT: Head is atraumatic and normocephalic. Throat is dry. NECK: Supple. HEART: Regular rate. LUNGS: Decreased breath sounds. ABDOMEN: Fairly soft. He is status post left AKA. He is here for small bowel obstruction, status post surgery. He has got an NG tube in place, UTI, sepsis. He has a 13.8 white count, it is coming down; 7.8 hemoglobin, that is coming down, he is going to need to be transfused in dialysis, I will discuss that with Renal; 24.1 hematocrit with 369 platelets. He has a 135 sodium; potassium 3.1, replaced potassium; BUN 34; creatinine 6.6; GFR is 8; calcium is 7.8; glucose is 88. Total bilirubin is 0.4, AST is 43, ALT is 19, and alkaline phosphatase 84. He has a bad urinary tract infection. He is being seen by Infectious Disease, Renal, Surgery. He has a diminishing dilatation of small bowel loops with retained oral contrast noted in large bowel slowly improving. Continue postop care. He will eventually to go back to [facility]. Parag Brownlee DO MTDAnna
[2017-11-15] MEDS: Nystatin 100,000 Units/gm Topical Pow(15 gm) TOP SCH ×3 (17:00→19:03)
--- NOTE | 2017-11-15 17:49 | CP.PCM.PN ---
Subjective - Date & Time of Evaluation Date of Evaluation: 11/15/17 Time of Evaluation: 17:47 - Subjective Subjective: Assessment:stable High grade SBO s/p surgery, appendectomy UTI, Hyperkalemia hx of prostate CA Hypertensive Chronic Kidney Disease (I12.9) ESRD on HD via permacath (TTS) Anemia (D64.9), HTN (I12.9) HIV on HAART, PVD s/p angioplasty s/p Rt AKA Plan hd continue per TTS. nephrovite 1 tab/day. aransep give additional dose today; PRBC as needed resume phos binders once allowed to take meds, monitor phos levels Hypertension control with meds as ordered. Patient was on RAAS edyta as losartan>>held for now due to BP on low side. hold norvasc ID, , Surgery and GI following Physical Examination: General Appearance: uncomfortable, in no acute respiratory distress, facial muscles wasted, ill appearing Vitals reviewed and noted as below Head; Atraumatic, normocephalic ENT: no ulcers no thrush. Tongue is midline dry. Oropharynx: no rash or ulcers. has ng tube EYES: Pupils are equal, round and reactive to light accommodation. Eye muscles and extraocular movement intact. Sclera is anicteric. Neck; supple no lymphadenopathy, no thyromegaly or bruit Lungs: Normal respiratory rate/effort. Breath sounds bilateral clear Heart: Normal rate. s1s2 normal. No rub or gallop. Extremities: no edema. No varicose veins. s/p Rt AKA Neurological: Patient is alert oriented x 3 follow commands,. no focal deficit Skin: Warm and dry. Normal turgor. Palpitation: Normal elasticity for age. has inguinal erythematous rash Abdomen: Abdomen is soft. Bowel sounds decreased. s/p surgery, ashely + Psych: limited insight. flat affect MSK: Digits and nails normal, left foot toe amputations in past. Rt AKA. Objective - Vital Signs/Intake and Output Vital Signs (last 24 hours): Temp Pulse Resp BP Pulse Ox 97.6 F 100 H 18 115/74 96 11/15/17 11:06 11/15/17 13:04 11/15/17 11:06 11/15/17 13:04 11/15/17 07:30 Intake and Output: 11/15/17 11/15/17 06:59 18:59 Intake Total 0 275 Output Total 450 Balance -450 275 - Medications Medications: Current Medications Acetaminophen (Tylenol 325mg Tab) 650 mg PO Q4H PRN PRN Reason: Fever >100.4 F Last Admin: 11/12/17 21:32 Dose: 650 mg Acetaminophen (Tylenol 650 Mg Supp) 650 mg RC Q6H PRN PRN Reason: Fever >100.4 F Last Admin: 11/15/17 06:18 Dose: 650 mg Allopurinol (Zyloprim) 300 mg PO DAILY [facility] Last Admin: 11/15/17 13:02 Dose: 300 mg Docusate Sodium (Colace Liquid) 100 mg PO TID [facility] Last Admin: 11/15/17 16:59 Dose: 100 mg Enoxaparin Sodium (Lovenox) 30 mg SC DAILY [facility] PRN Reason: Protocol Last Admin: 11/15/17 13:04 Dose: 30 mg Ferrous Gluconate (Fergon) 324 mg PO TID [facility] Last Admin: 11/15/17 16:59 Dose: 324 mg Heparin Sodium (Porcine) (Heparin) 2,000 units IVP TTS [facility] PRN Reason: Protocol Last Admin: 11/15/17 11:37 Dose: 2,000 units Heparin Sodium (Porcine) (Heparin) 2,200 units ICA [facility] Last Admin: 11/15/17 11:35 Dose: 2,200 units Heparin Sodium (Porcine) (Heparin) 2,400 units ICV [facility]UTA [facility] Last Admin: 11/15/17 11:36 Dose: 2,400 units Meropenem 500 mg/ Sodium (Chloride) 50 mls @ 100 mls/hr IVPB Q24H [facility] PRN Reason: Protocol Last Admin: 11/15/17 13:29 Dose: 100 mls/hr Dextrose/Sodium Chloride (Dextrose 5%/0.45% Ns 1000 Ml) 1,000 mls @ 100 mls/hr IV .Q10H [facility] Last Admin: 11/15/17 13:36 Dose: Not Given Sodium Chloride (Sodium Chloride 0.9%) 500 mls @ 500 mls/hr IV .Q1H [facility] Last Admin: 11/15/17 06:36 Dose: 500 mls/hr Metoprolol Tartrate (Lopressor) 100 mg PO Q12 [facility] Last Admin: 11/15/17 13:04 Dose: 100 mg Non-Formulary Medication (Dolutegravir Sodium [Tivicay]) 50 mg PO DAILY [facility] Last Admin: 11/15/17 13:03 Dose: Not Given Nystatin (Nystop Topical Powder) 0 gm TOP BID [facility] Stop: 11/20/17 13:01 Last Admin: 11/15/17 17:00 Dose: 1 applic Ondansetron HCl (Zofran Inj) 4 mg IVP Q4H PRN PRN Reason: Nausea/Vomiting Last Admin: 11/13/17 06:31 Dose: 4 mg Ondansetron HCl (Zofran Tab) 4 mg PO Q4 PRN PRN Reason: Nausea/Vomiting Last Admin: 11/10/17 11:45 Dose: 4 mg Oxycodone HCl (Oxycodone Immediate Release Tab) 5 mg PO Q4H PRN PRN Reason: Pain, moderate (4-7) Pantoprazole Sodium (Protonix Inj) 40 mg IVP Q12 [facility] Last Admin: 11/15/17 13:01 Dose: 40 mg Sevelamer HCl (Renagel) 1,600 mg PO TID [facility] Last Admin: 11/15/17 16:59 Dose: 1,600 mg Vitamin B Complex/Vit C/Folic Acid (Nephro-Christel) 1 tab PO DAILY [facility] Last Admin: 11/15/17 13:02 Dose: 1 tab - Labs Labs: 11/15/17 07:40 11/15/17 07:40 PT 13.5 SECONDS (9.4-12.5) H 11/11/17 09:30 INR 1.17 (0.93-1.08) H 11/11/17 09:30 APTT 34.4 Seconds (25.1-36.5) 11/11/17 09:30
--- NOTE | 2017-11-16 01:22 | PN ---
DATE: 11/15/2017 SUBJECTIVE: Patient is in bed, in no acute distress, nontoxic. PHYSICAL EXAMINATION: VITAL SIGNS: Temperature is 99, blood pressure is 109/70, respiratory rate of 20. HEENT: Unremarkable. NECK: Supple. LUNGS: Have decreased breath sounds. HEART: Normal S1, S2. ABDOMEN: Soft, nontender. LABORATORY DATA: Reveals a white count of 13,800, hemoglobin of 7.8, platelets of 369. Coagulation is noted. Chemistries reveal BUN of 34, creatinine of 6.6. PSA is less than 0.0. Urinalysis is noted. Microbiology reveals the cultures are negative. ASSESSMENT AND PLAN: A 72-year-old male with sepsis due to urinary tract infection and cystitis on top of small bowel obstruction status post exploratory laparotomy and lysis of adhesion, repair of umbilical hernia and appendectomy, postprocedure day #5. Patient with hypertension, prostate cancer, positive human immunodeficiency virus, on meropenem. Review of orders confirms that the meropenem was discontinued by pharmacy. Patient's white count is down to 13,800. We will order a CT of the abdomen to rule out a correction. Restart the meropenem pending repeat CT scan of the abdomen to rule out a correction because of persistent leukocytosis. We will adjust meropenem again to renal function. We will follow with you. Cesar Flowers MD
[2017-11-16 07:03] LABS: HEMOGLOBIN 9.2 g/dL (14.0-18.0); MEAN CELL VOLUME 94.1 fl (80.0-105.0); MEAN CORPUSCULAR HGB CONC 31.8 g/dl (31.0-37.0); MEAN PLATELET VOLUME 9.6 fl (7.0-11.0); RBC 3.07 10^6/uL (3.5-6.1); RED CELL DISTRIBUTION WIDTH 19.1 % (11.5-14.5); WHITE BLOOD COUNT 13.3 10^3/ul (4.5-11.0)
[2017-11-16 07:51] LABS: ALB/GLOB RATIO 0.6 (1.1-1.8); ALBUMIN 2.4 g/dL (3.0-4.8); CALCIUM 8.1 mg/dL (8.4-10.5)
[2017-11-16] MEDS ORDERED: Potassium Chloride 20 mEq ER Tab PO ONE (09:40)
[2017-11-16] MEDS: Multivitamin Vitamin B Complex (Nephro-Vite) Tab PO SCH (09:41)
[2017-11-16] MEDS: Enoxaparin 30 mg Syringe SC SCH (09:42)
[2017-11-16] MEDS: Nystatin 100,000 Units/gm Topical Pow(15 gm) TOP SCH ×2 (09:43→18:08)
[2017-11-16] MEDS: Non Formulary Medication (Dolutegravir Sodium [Tivicay] 50 MG) PO SCH (09:44)
[2017-11-16] MEDS: oxyCODONE 5 mg Immediate Release Tab PO PRN ×2 (09:47→19:00)
--- NOTE | 2017-11-16 10:53 | CT ---
PROCEDURE: CT Abdomen and Pelvis without intravenous contrast HISTORY: inc wbc r/o collection post sx COMPARISON: None. TECHNIQUE: Without contrast.. Contrast Dose: Radiation dose: Total exam DLP = Total exam DLP = 273 mGy-cm. This CT exam was performed using one or more of the following dose reduction techniques: Automated exposure control, adjustment of the mA and/or kV according to patient size, and/or use of iterative reconstruction technique. FINDINGS: LOWER THORAX: Minimal bibasilar consolidation LIVER: Unremarkable. No gross lesion or ductal dilatation. GALLBLADDER AND BILE DUCTS: Unremarkable. PANCREAS: Unremarkable. No gross lesion or ductal dilatation. SPLEEN: Unremarkable. ADRENALS: Unremarkable. No mass. KIDNEYS AND URETERS: Unremarkable. No hydronephrosis. No solid mass. VASCULATURE: Unremarkable. No aortic aneurysm. BOWEL: Multiple dilated loops of small bowel are seen. There is mild mural thickening APPENDIX: Unremarkable. Normal appendix. PERITONEUM: There is a small amount of ascites. There is an 8 cm fluid collection in the pelvis. This probably represents loculated ascites. A seroma or abscess is possible but less likely. There is no air within the collection. LYMPH NODES: Unremarkable. No enlarged lymph nodes. BLADDER: Unremarkable. REPRODUCTIVE: Unremarkable. BONES: No acute fracture. OTHER FINDINGS: None. IMPRESSION: Multiple dilated loops of small bowel are seen with mild mural thickening. There is a small amount of ascites. There is an 8 cm fluid collection in the pelvis. This probably represents loculated ascites. A seroma or abscess is possible but less likely. There is no air within the collection.
--- NOTE | 2017-11-16 11:37 | CP.PCM.PN ---
<Janice Martinez - Last Filed: 11/16/17 11:38> Subjective - Date & Time of Evaluation Date of Evaluation: 11/16/17 Time of Evaluation: 11:36 - Subjective Subjective: 72M seen at bedside with attending Dr. Dunn for left heel stage 1 pressure ulcer. Pt says his left heel is very tender. Admits to wearing the offloading boot while in bed. Denies any new pedal complaints. Denies F/C/N/V/CP/SOB Objective - Vital Signs/Intake and Output Vital Signs (last 24 hours): Temp Pulse Resp BP Pulse Ox 98.8 F 78 20 121/70 95 11/16/17 08:32 11/16/17 09:41 11/16/17 08:32 11/16/17 09:41 11/16/17 08:32 Intake and Output: 11/16/17 11/16/17 06:59 18:59 Intake Total 480 Balance 480 - Medications Medications: Current Medications Acetaminophen (Tylenol 325mg Tab) 650 mg PO Q4H PRN PRN Reason: Fever >100.4 F Last Admin: 11/12/17 21:32 Dose: 650 mg Acetaminophen (Tylenol 650 Mg Supp) 650 mg RC Q6H PRN PRN Reason: Fever >100.4 F Last Admin: 11/15/17 06:18 Dose: 650 mg Allopurinol (Zyloprim) 300 mg PO DAILY [facility] Last Admin: 11/16/17 09:41 Dose: 300 mg Docusate Sodium (Colace Liquid) 100 mg PO TID [facility] Last Admin: 11/16/17 09:39 Dose: Not Given Enoxaparin Sodium (Lovenox) 30 mg SC DAILY [facility] PRN Reason: Protocol Last Admin: 11/16/17 09:42 Dose: 30 mg Ferrous Gluconate (Fergon) 324 mg PO TID [facility] Last Admin: 11/16/17 09:44 Dose: 324 mg Heparin Sodium (Porcine) (Heparin) 2,000 units IVP TTS [facility] PRN Reason: Protocol Last Admin: 11/15/17 11:37 Dose: 2,000 units Heparin Sodium (Porcine) (Heparin) 2,200 units ICA TUTA [facility] Last Admin: 11/15/17 11:35 Dose: 2,200 units Heparin Sodium (Porcine) (Heparin) 2,400 units ICV [facility]SA [facility] Last Admin: 11/15/17 11:36 Dose: 2,400 units Dextrose/Sodium Chloride (Dextrose 5%/0.45% Ns 1000 Ml) 1,000 mls @ 100 mls/hr IV .Q10H [facility] Last Admin: 11/15/17 13:36 Dose: Not Given Meropenem 250 mg/ Sodium (Chloride) 100 mls @ 100 mls/hr IVPB Q12H [facility] PRN Reason: Protocol Stop: 11/22/17 20:16 Last Admin: 11/16/17 10:42 Dose: 100 mls/hr Metoprolol Tartrate (Lopressor) 100 mg PO Q12 [facility] Last Admin: 11/16/17 09:41 Dose: 100 mg Non-Formulary Medication (Dolutegravir Sodium [Tivicay]) 50 mg PO DAILY [facility] Last Admin: 11/16/17 09:44 Dose: Not Given Nystatin (Nystop Topical Powder) 0 gm TOP BID [facility] Stop: 11/20/17 13:01 Last Admin: 11/16/17 09:43 Dose: 1 applic Ondansetron HCl (Zofran Inj) 4 mg IVP Q4H PRN PRN Reason: Nausea/Vomiting Last Admin: 11/13/17 06:31 Dose: 4 mg Ondansetron HCl (Zofran Tab) 4 mg PO Q4 PRN PRN Reason: Nausea/Vomiting Last Admin: 11/10/17 11:45 Dose: 4 mg Oxycodone HCl (Oxycodone Immediate Release Tab) 5 mg PO Q4H PRN PRN Reason: Pain, moderate (4-7) Last Admin: 11/16/17 09:47 Dose: 5 mg Pantoprazole Sodium (Protonix Inj) 40 mg IVP Q12 [facility] Last Admin: 11/16/17 09:40 Dose: 40 mg Sevelamer HCl (Renagel) 1,600 mg PO TID [facility] Last Admin: 11/16/17 08:07 Dose: 1,600 mg Vitamin B Complex/Vit C/Folic Acid (Nephro-Christel) 1 tab PO DAILY [facility] Last Admin: 11/16/17 09:41 Dose: 1 tab - Labs Labs: 11/16/17 06:20 11/16/17 06:20 PT 13.5 SECONDS (9.4-12.5) H 11/11/17 09:30 INR 1.17 (0.93-1.08) H 11/11/17 09:30 APTT 34.4 Seconds (25.1-36.5) 11/11/17 09:30 - Constitutional Appears: Well, Non-toxic, No Acute Distress - Extremities Exam Additional comments: Phong IGNACIO focused exam: Vasc: DP/PT pulses palpable 1/4. Temperature gradient warm to cool. CFT < 3 sec to all digits. No pedal edema noted Derm: Stage 1 non-blanchable erythematous pressure ulceration noted to heel. No open lesions, no ecchymosis, skin and soft tissue intact. Elongated toenails x2. Neuro: Protective sensation grossly diminished Ortho: Tenderness to palpation of L plantar heel. 1st-3rd digit amputations noted to L foot. Charcot midfoot changes - Neurological Exam Neurological Exam: Alert, Awake - Psychiatric Exam Psychiatric exam: Normal Affect, Normal Mood Assessment and Plan - Assessment and Plan (Free Text) Assessment: 72 y/o male with left heel stage 1 pressure ulceration secondary to bed bound status Plan: Pt seen and evaluated with attending Dr. Dunn Labs and vitals reviewed Multipodus boot to be worn at all times in bed Podiatry to sign off at this time Please re-consult again as needed <Jerrod Dunn - Last Filed: 11/16/17 16:46> Objective - Vital Signs/Intake and Output Vital Signs (last 24 hours): Temp Pulse Resp BP Pulse Ox 98.8 F 78 20 121/70 95 11/16/17 08:32 11/16/17 09:41 11/16/17 08:32 11/16/17 09:41 11/16/17 08:32 Intake and Output: 11/16/17 11/16/17 06:59 18:59 Intake Total 480 Balance 480 - Medications Medications: Current Medications Acetaminophen (Tylenol 325mg Tab) 650 mg PO Q4H PRN PRN Reason: Fever >100.4 F Last Admin: 11/12/17 21:32 Dose: 650 mg Acetaminophen (Tylenol 650 Mg Supp) 650 mg RC Q6H PRN PRN Reason: Fever >100.4 F Last Admin: 11/15/17 06:18 Dose: 650 mg Allopurinol (Zyloprim) 300 mg PO DAILY [facility] Last Admin: 11/16/17 09:41 Dose: 300 mg Docusate Sodium (Colace Liquid) 100 mg PO TID [facility] Last Admin: 11/16/17 09:39 Dose: Not Given Enoxaparin Sodium (Lovenox) 30 mg SC DAILY [facility] PRN Reason: Protocol Last Admin: 11/16/17 09:42 Dose: 30 mg Ferrous Gluconate (Fergon) 324 mg PO TID [facility] Last Admin: 11/16/17 09:44 Dose: 324 mg Heparin Sodium (Porcine) (Heparin) 2,000 units IVP TTS [facility] PRN Reason: Protocol Last Admin: 11/15/17 11:37 Dose: 2,000 units Heparin Sodium (Porcine) (Heparin) 2,200 [facility] Last Admin: 11/15/17 11:35 Dose: 2,200 units Heparin Sodium (Porcine) (Heparin) 2,400 units ICV [facility] Last Admin: 11/15/17 11:36 Dose: 2,400 units Dextrose/Sodium Chloride (Dextrose 5%/0.45% Ns 1000 Ml) 1,000 mls @ 100 mls/hr IV .Q10H [facility] Last Admin: 11/15/17 13:36 Dose: Not Given Meropenem 250 mg/ Sodium (Chloride) 100 mls @ 100 mls/hr IVPB Q12H [facility] PRN Reason: Protocol Stop: 11/22/17 20:16 Last Admin: 11/16/17 10:42 Dose: 100 mls/hr Metoprolol Tartrate (Lopressor) 100 mg PO Q12 [facility] Last Admin: 11/16/17 09:41 Dose: 100 mg Non-Formulary Medication (Dolutegravir Sodium [Tivicay]) 50 mg PO DAILY [facility] Last Admin: 11/16/17 09:44 Dose: Not Given Nystatin (Nystop Topical Powder) 0 gm TOP BID [facility] Stop: 11/20/17 13:01 Last Admin: 11/16/17 09:43 Dose: 1 applic Ondansetron HCl (Zofran Inj) 4 mg IVP Q4H PRN PRN Reason: Nausea/Vomiting Last Admin: 11/13/17 06:31 Dose: 4 mg Ondansetron HCl (Zofran Tab) 4 mg PO Q4 PRN PRN Reason: Nausea/Vomiting Last Admin: 11/10/17 11:45 Dose: 4 mg Oxycodone HCl (Oxycodone Immediate Release Tab) 5 mg PO Q4H PRN PRN Reason: Pain, moderate (4-7) Last Admin: 11/16/17 09:47 Dose: 5 mg Pantoprazole Sodium (Protonix Inj) 40 mg IVP Q12 [facility] Last Admin: 11/16/17 09:40 Dose: 40 mg Sevelamer HCl (Renagel) 1,600 mg PO TID [facility] Last Admin: 11/16/17 08:07 Dose: 1,600 mg Vitamin B Complex/Vit C/Folic Acid (Nephro-Christel) 1 tab PO DAILY [facility] Last Admin: 11/16/17 09:41 Dose: 1 tab - Labs Labs: 11/16/17 06:20 11/16/17 06:20 PT 13.5 SECONDS (9.4-12.5) H 11/11/17 09:30 INR 1.17 (0.93-1.08) H 11/11/17 09:30 APTT 34.4 Seconds (25.1-36.5) 11/11/17 09:30 Attending/Attestation - Attestation I have personally seen and examined this patient.: Yes I have fully participated in the care of the patient.: Yes I have reviewed all pertinent clinical information, including history, physical exam and plan: Yes
--- NOTE | 2017-11-16 12:24 | PN ---
DATE: SUBJECTIVE: I saw Raza Sagastume resting comfortably in bed. The NG tube is out. He has clear fluids and he is eating them fairly well. No chest pain or shortness of breath or abdominal pain. He is concerned about his teeth and is concerned about some clothing. I discussed at length with his sister who is the only caregiver. I also discussed with the nurse and Print Color Operator about discharge planning. He has been through a lot as he has been in the hospital. He had small bowel obstruction, he had surgery and lysis of adhesions. He is doing better that way. He had sepsis, UTI. 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 He is on Aranesp, liquid Colace. He is on IV fluids, Tivicay, Fergon, heparin, potassium, lactated Ringer's, metoprolol, Lovenox, Merrem IV, Nephro-Christel, Percocet, Protonix, Renagel, Tylenol, Zofran and Zyloprim. OBJECTIVE VITAL SIGNS: Temperature 98.8, pulse 78, blood pressure 121/69, respiratory rate 20, and 95% O2 sat on room air. HEENT: Head is atraumatic, normocephalic. NG tube is out. GENERAL: He is alert and talking. No acute distress or pain at this time. HEART: Regular rate. LUNGS: Decreased breath sounds, but clear. ABDOMEN: Soft. Decreased bowel sounds are present. EXTREMITIES: He has left AKA and no edema. LABORATORY DATA: He has 13.3 white count, better than it has been; 9.2 hemoglobin; 28.9 hematocrit, and 315,000 platelets. He has a 137 sodium; potassium 3.5, better, I have given him some potassium. BUN 21, creatinine 4.5 after dialysis. GFR is 13, sugar is 89, calcium is 8.1. Total bilirubin is 0.3, AST is 43, ALT is 20, alkaline phosphatase 94. He is being seen by numerous physicians, he got Infectious Disease, he got GI, he got Surgery and Renal. We are trying to keep up with all his issues. I am trying to find a place where he can go to and maybe finish off his treatment and physical therapy. We will continue aggressive treatment and care. I discussed at length with social service worker, Surgery and family. Parag Brownlee DO
[2017-11-16] MEDS: Dextrose 5%/0.45% NS 1,000 ML IV SCH (16:06)
--- NOTE | 2017-11-16 16:44 | CP.PCM.PN ---
Subjective - Date & Time of Evaluation Date of Evaluation: 11/16/17 Time of Evaluation: 16:42 - Subjective Subjective: Nephrology Consultation Note: Assessment:stable High grade SBO s/p surgery, appendectomy UTI, Hyperkalemia hx of prostate CA Hypertensive Chronic Kidney Disease (I12.9) ESRD on HD via permacath (TTS) Anemia (D64.9), HTN (I12.9) HIV on HAART, PVD s/p angioplasty s/p Rt AKA Plan plan for HD tomorrow as per TTS. nephrovite 1 tab/day. aransep 40 mcg weekly for anemia 11/13/17. PRBC as needed . last Hb 9.7 hold phosphorus binders while pt NPO Hypertension control with meds as ordered. Patient was on RAAS edyta as losartan>>held for now due to BP on low side. hold norvasc ID, , Surgery and GI following Dose meds/antibiotics for ESRD status. Avoid fleets enema/magnesium based laxatives. Avoid nephrotoxins/NSAIDs/ iodinated contrast (unless needed emergently) Further work up/management as per primary team. Thanks for allowing me to participate in care of your patient. Will follow patient with you. Please call if any Qs. Dr Yandel Arechiga Office: [phone] reason for consult: ESRD, HTN HPI: Pt is a 72 y/o M with hx of HIV on HAART, PVD s/p angioplasty, Rt AKA, hypertension (10-15 years), ESRD on HD (via permacath) T[place] [facility] [place], left foot toe amputations, prostate CA presented with groin pain and cloudy urine. being managed for UTI renal consult for ESRD, HTN management pt doesn't feel well. says everything is bothering him as lower ext pain, groin pain. says alcala catheter was removed 2 weeks ago ROS: denies CP/SOB. all other neg except as in HPI. improved abdomen pain Physical Examination: General Appearance: comfortable, in no acute respiratory distress, facial muscles wasted, ill appearing Vitals reviewed and noted as below Head; Atraumatic, normocephalic ENT: no ulcers no thrush. Tongue is midline dry. Oropharynx: no rash or ulcers. has ng tube EYES: Pupils are equal, round and reactive to light accommodation. Eye muscles and extraocular movement intact. Sclera is anicteric. Neck; supple no lymphadenopathy, no thyromegaly or bruit Lungs: Normal respiratory rate/effort. Breath sounds bilateral clear Heart: Normal rate. s1s2 normal. No rub or gallop. Extremities: no edema. No varicose veins. s/p Rt AKA Neurological: Patient is alert oriented x 3 follow commands,. no focal deficit Skin: Warm and dry. Normal turgor. Palpitation: Normal elasticity for age. has inguinal erythematous rash Abdomen: Abdomen is soft. Bowel sounds decreased. s/p surgery, ashely + Psych: limited insight. flat affect MSK: Digits and nails normal, left foot toe amputations in past. Rt AKA. : kidney not palpable. has alcala Access: permacath and maturing left AVF Labs/imaging/EKG reviewed. Past medical history, past surgical history, family history, social history, allergy reviewed and noted as below Family hx: sister was on dialysis. Rest non-contributory Objective - Vital Signs/Intake and Output Vital Signs (last 24 hours): Temp Pulse Resp BP Pulse Ox 98.8 F 78 20 121/70 95 11/16/17 08:32 11/16/17 09:41 11/16/17 08:32 11/16/17 09:41 11/16/17 08:32 Intake and Output: 11/16/17 11/16/17 06:59 18:59 Intake Total 480 Balance 480 - Medications Medications: Current Medications Acetaminophen (Tylenol 325mg Tab) 650 mg PO Q4H PRN PRN Reason: Fever >100.4 F Last Admin: 11/12/17 21:32 Dose: 650 mg Acetaminophen (Tylenol 650 Mg Supp) 650 mg RC Q6H PRN PRN Reason: Fever >100.4 F Last Admin: 11/15/17 06:18 Dose: 650 mg Allopurinol (Zyloprim) 300 mg PO DAILY [facility] Last Admin: 11/16/17 09:41 Dose: 300 mg Docusate Sodium (Colace Liquid) 100 mg PO TID [facility] Last Admin: 11/16/17 09:39 Dose: Not Given Enoxaparin Sodium (Lovenox) 30 mg SC DAILY [facility] PRN Reason: Protocol Last Admin: 11/16/17 09:42 Dose: 30 mg Ferrous Gluconate (Fergon) 324 mg PO TID [facility] Last Admin: 11/16/17 09:44 Dose: 324 mg Heparin Sodium (Porcine) (Heparin) 2,000 units IVP TTS [facility] PRN Reason: Protocol Last Admin: 11/15/17 11:37 Dose: 2,000 units Heparin Sodium (Porcine) (Heparin) 2,200 units ICA [facility] Last Admin: 11/15/17 11:35 Dose: 2,200 units Heparin Sodium (Porcine) (Heparin) 2,400 units ICV [facility] Last Admin: 11/15/17 11:36 Dose: 2,400 units Dextrose/Sodium Chloride (Dextrose 5%/0.45% Ns 1000 Ml) 1,000 mls @ 100 mls/hr IV .Q10H [facility] Last Admin: 11/15/17 13:36 Dose: Not Given Meropenem 250 mg/ Sodium (Chloride) 100 mls @ 100 mls/hr IVPB Q12H [facility] PRN Reason: Protocol Stop: 11/22/17 20:16 Last Admin: 11/16/17 10:42 Dose: 100 mls/hr Metoprolol Tartrate (Lopressor) 100 mg PO Q12 [facility] Last Admin: 11/16/17 09:41 Dose: 100 mg Non-Formulary Medication (Dolutegravir Sodium [Tivicay]) 50 mg PO DAILY [facility] Last Admin: 11/16/17 09:44 Dose: Not Given Nystatin (Nystop Topical Powder) 0 gm TOP BID [facility] Stop: 11/20/17 13:01 Last Admin: 11/16/17 09:43 Dose: 1 applic Ondansetron HCl (Zofran Inj) 4 mg IVP Q4H PRN PRN Reason: Nausea/Vomiting Last Admin: 11/13/17 06:31 Dose: 4 mg Ondansetron HCl (Zofran Tab) 4 mg PO Q4 PRN PRN Reason: Nausea/Vomiting Last Admin: 11/10/17 11:45 Dose: 4 mg Oxycodone HCl (Oxycodone Immediate Release Tab) 5 mg PO Q4H PRN PRN Reason: Pain, moderate (4-7) Last Admin: 11/16/17 09:47 Dose: 5 mg Pantoprazole Sodium (Protonix Inj) 40 mg IVP Q12 [facility] Last Admin: 11/16/17 09:40 Dose: 40 mg Sevelamer HCl (Renagel) 1,600 mg PO TID [facility] Last Admin: 11/16/17 08:07 Dose: 1,600 mg Vitamin B Complex/Vit C/Folic Acid (Nephro-Christel) 1 tab PO DAILY [facility] Last Admin: 11/16/17 09:41 Dose: 1 tab - Labs Labs: 11/16/17 06:20 11/16/17 06:20 PT 13.5 SECONDS (9.4-12.5) H 11/11/17 09:30 INR 1.17 (0.93-1.08) H 11/11/17 09:30 APTT 34.4 Seconds (25.1-36.5) 11/11/17 09:30
[2017-11-16] MEDS ORDERED: Dextrose 50% SYRINGE Inj (50 ml) IVP PRN (18:21)
--- NOTE | 2017-11-16 23:33 | CP.PCM.PN ---
Subjective - Date & Time of Evaluation Date of Evaluation: 11/16/17 Time of Evaluation: 11:00 - Subjective Subjective: Still with some abdominal discomfort, ill-appearing, no fevers. Objective - Vital Signs/Intake and Output Vital Signs (last 24 hours): Temp Pulse Resp BP Pulse Ox 98.8 F 78 20 121/70 95 11/16/17 08:32 11/16/17 09:41 11/16/17 08:32 11/16/17 09:41 11/16/17 08:32 Intake and Output: 11/16/17 11/16/17 06:59 18:59 Intake Total 480 Balance 480 - Medications Medications: Current Medications Acetaminophen (Tylenol 325mg Tab) 650 mg PO Q4H PRN PRN Reason: Fever >100.4 F Last Admin: 11/12/17 21:32 Dose: 650 mg Acetaminophen (Tylenol 650 Mg Supp) 650 mg RC Q6H PRN PRN Reason: Fever >100.4 F Last Admin: 11/15/17 06:18 Dose: 650 mg Allopurinol (Zyloprim) 300 mg PO DAILY [facility] Last Admin: 11/16/17 09:41 Dose: 300 mg Docusate Sodium (Colace Liquid) 100 mg PO TID [facility] Last Admin: 11/16/17 09:39 Dose: Not Given Enoxaparin Sodium (Lovenox) 30 mg SC DAILY [facility] PRN Reason: Protocol Last Admin: 11/16/17 09:42 Dose: 30 mg Ferrous Gluconate (Fergon) 324 mg PO TID [facility] Last Admin: 11/16/17 09:44 Dose: 324 mg Heparin Sodium (Porcine) (Heparin) 2,000 units IVP TTS [facility] PRN Reason: Protocol Last Admin: 11/15/17 11:37 Dose: 2,000 units Heparin Sodium (Porcine) (Heparin) 2,200 units ICA [facility] Last Admin: 11/15/17 11:35 Dose: 2,200 units Heparin Sodium (Porcine) (Heparin) 2,400 units ICV [facility] Last Admin: 11/15/17 11:36 Dose: 2,400 units Dextrose/Sodium Chloride (Dextrose 5%/0.45% Ns 1000 Ml) 1,000 mls @ 100 mls/hr IV .Q10H [facility] Last Admin: 11/15/17 13:36 Dose: Not Given Meropenem 250 mg/ Sodium (Chloride) 100 mls @ 100 mls/hr IVPB Q12H [facility] PRN Reason: Protocol Stop: 11/22/17 20:16 Last Admin: 11/16/17 10:42 Dose: 100 mls/hr Metoprolol Tartrate (Lopressor) 100 mg PO Q12 [facility] Last Admin: 11/16/17 09:41 Dose: 100 mg Non-Formulary Medication (Dolutegravir Sodium [Tivicay]) 50 mg PO DAILY [facility] Last Admin: 11/16/17 09:44 Dose: Not Given Nystatin (Nystop Topical Powder) 0 gm TOP BID [facility] Stop: 11/20/17 13:01 Last Admin: 11/16/17 09:43 Dose: 1 applic Ondansetron HCl (Zofran Inj) 4 mg IVP Q4H PRN PRN Reason: Nausea/Vomiting Last Admin: 11/13/17 06:31 Dose: 4 mg Ondansetron HCl (Zofran Tab) 4 mg PO Q4 PRN PRN Reason: Nausea/Vomiting Last Admin: 11/10/17 11:45 Dose: 4 mg Oxycodone HCl (Oxycodone Immediate Release Tab) 5 mg PO Q4H PRN PRN Reason: Pain, moderate (4-7) Last Admin: 11/16/17 09:47 Dose: 5 mg Pantoprazole Sodium (Protonix Inj) 40 mg IVP Q12 [facility] Last Admin: 11/16/17 09:40 Dose: 40 mg Sevelamer HCl (Renagel) 1,600 mg PO TID [facility] Last Admin: 11/16/17 08:07 Dose: 1,600 mg Vitamin B Complex/Vit C/Folic Acid (Nephro-Christel) 1 tab PO DAILY [facility] Last Admin: 11/16/17 09:41 Dose: 1 tab - Labs Labs: 11/16/17 06:20 11/16/17 06:20 PT 13.5 SECONDS (9.4-12.5) H 11/11/17 09:30 INR 1.17 (0.93-1.08) H 11/11/17 09:30 APTT 34.4 Seconds (25.1-36.5) 11/11/17 09:30 - Constitutional Appears: Chronically Ill - Head Exam Head Exam: NORMAL INSPECTION - ENT Exam ENT Exam: Mucous Membranes Moist - Neck Exam Neck Exam: absent: Meningismus - Respiratory Exam Respiratory Exam: Decreased Breath Sounds - Cardiovascular Exam Cardiovascular Exam: +S1, +S2 - GI/Abdominal Exam GI & Abdominal Exam: Soft. absent: Tenderness - Extremities Exam Additional comments: right AKA stump with dressings in place Assessment and Plan - Assessment and Plan (Free Text) Plan: Assessment small bowel obstruction S/P ex-lap, adhesiolysis, repair of umbilical hernia and appendectomy S/P UTI severe PAD S/P angioplasty of the left tibial artery S/P right AKA UTI with MRSA and Strep viridans systemic viral illness with Influenza history of left foot 3rd digit chronic osteomyelitis S/P amputation and debridement right sided nephrolithiasis history of severe sepsis with acute on chronic renal failure probably due to pyelonephritis with E. coli bacteremia history of C. diff. associated diarrhea Charcot foot, left history of left 2nd toe dry gangrene Chronic renal failure on hemodialysis HTN prostate CA HIV ([facility] at [facility] [place] 03/2016 349 and virus load < 1.3 log) history of osteomyelitis of left first toe S/P amputation (2015) gout history of left foot ulcers Plan continue Merrem and will continue to monitor clinically continue antiretroviral therapy (lamivudine, abacavir on formulary but dolutegravir should be taken by patient from his home supply) overall prognosis is poor
[2017-11-17] MEDS: Dextrose 5%/0.45% NS 1,000 ML IV SCH ×2 (03:30→15:38)
[2017-11-17 08:04] LABS: HEMOGLOBIN 9.7 g/dL (14.0-18.0); MEAN CORPUSCULAR HEMOGLOBIN 29.9 pg (25.0-35.0); MEAN CORPUSCULAR HGB CONC 31.2 g/dl (31.0-37.0); RBC 3.24 10^6/uL (3.5-6.1); WHITE BLOOD COUNT 13.7 10^3/ul (4.5-11.0)
[2017-11-17 08:18] LABS: ALB/GLOB RATIO 0.6 (1.1-1.8); ALBUMIN 2.3 g/dL (3.0-4.8); CALCIUM 7.9 mg/dL (8.4-10.5)
[2017-11-17] MEDS: oxyCODONE 5 mg Immediate Release Tab PO PRN (08:41)
--- NOTE | 2017-11-17 11:53 | PN ---
DATE: SUBJECTIVE: I saw him in dialysis. He is resting. He is telling me he is having discomfort in his extremities on the left side. He is having abdominal discomfort. He ate breakfast, but no nausea or vomiting. He is weak. Just not happy. With the NG tube is out, he is able to eat. PHYSICAL EXAMINATION: VITAL SIGNS: He has a 98.8 temp, 71 pulse, 122/62 blood pressure, 20 respiratory rate, 96% O2 sat on 2 L. HEENT: His head is atraumatic, normocephalic. Throat dry. NECK: Supple. HEART: Regular rate. LUNGS: Decreased breath sounds bilaterally. ABDOMEN: Soft. Positive bowel sounds. No guarding. No rebound. No edema of the left leg and right is an AKA. MEDICATIONS: He is on Colace, dextrose, Tivicay, Fergon, heparin, Lopressor, Lovenox, Merrem, Nephro-Christel, nystatin, oxycodone for the pain, Protonix, Renagel, Tylenol, Zofran, allopurinol. LABORATORY DATA: He has a 132 sodium, 3.9 potassium, BUN 22, creatinine 5.9, GFR is 9, on dialysis. Last blood sugar was 82, then it was 86. Calcium 7.9, total bili is 0.2, AST is 29, ALT is 17, alk phos 84, total protein 6.2. He has a 13.7 white count, still hovering in the 13, although it was as high as 20. He is on the antibiotics. We want to get it under 10. He has a 9.7 hemoglobin, 31.1 hematocrit with 341 platelets. ASSESSMENT AND PLAN: He is being seen by Surgery, Renal, Podiatry, Infectious Disease. He has small bowel obstruction, status post exploratory laparotomy with lysis of adhesions, repair of an umbilical hernia and appendectomy, status post urinary tract infection. He is status post right above-knee amputation, status post left angioplasty of left tibial artery. He has urinary tract infection, methicillin-resistant Staphylococcus aureus, Streptococcus viridans. He has a very big history. He has prostate cancer; human immunodeficiency virus history; osteomyelitis history; ulcers; chronic renal failure, on dialysis. He is bacteremic. We will continue aggressive treatment and care on Mr. Raza Sagastume. Thank you very much. Parag Brownlee DO [facility] # [id number]
--- NOTE | 2017-11-17 13:10 | CP.PCM.PN ---
Subjective - Date & Time of Evaluation Date of Evaluation: 11/17/17 Time of Evaluation: 12:55 - Subjective Subjective: Nephrology Consultation Note: Assessment:stable High grade SBO s/p surgery, appendectomy UTI, Hyperkalemia hx of prostate CA Hypertensive Chronic Kidney Disease (I12.9) ESRD on HD via permacath (TTS) Anemia (D64.9), HTN (I12.9) HIV on HAART, PVD s/p angioplasty s/p Rt AKA Plan seen on HD, tolerating, continue TTS. nephrovite 1 tab/day. aransep 40 mcg weekly for anemia 11/13/17. PRBC as needed . hold phosphorus binders while pt NPO Hypertension control with meds as ordered. f/u surgery S: seen and examined, feels tired. + bowel movement , seen on hd Physical Examination: General Appearance: comfortable, in no acute respiratory distress, facial muscles wasted, ill appearing Vitals reviewed and noted as below Head; Atraumatic, normocephalic ENT: no ulcers no thrush. Tongue is midline dry. Oropharynx: no rash or ulcers. has ng tube EYES: Pupils are equal, round Sclera is anicteric. Neck; supple no lymphadenopathy, no thyromegaly or bruit Lungs: Normal respiratory rate/effort. Breath sounds bilateral clear Heart: Normal rate. s1s2 normal. No rub or gallop. Extremities: no edema. No varicose veins. s/p Rt AKA Neurological: Patient is alert oriented x 3 follow commands,. no focal deficit Skin: Warm and dry. Normal turgor. Palpitation: Normal elasticity for age. has inguinal erythematous rash Abdomen: Abdomen is soft. Bowel sounds decreased. s/p surgery, ashely + Psych: flat affect MSK: Digits and nails normal, left foot toe amputations in past. Rt AKA. : kidney not palpable. has alcala Access: permacath and maturing left AVF Labs/imaging Objective - Vital Signs/Intake and Output Vital Signs (last 24 hours): Temp Pulse Resp BP Pulse Ox 98.8 F 71 20 122/62 96 11/17/17 07:30 11/17/17 07:30 11/17/17 07:30 11/17/17 07:30 11/17/17 07:30 Intake and Output: 11/17/17 11/17/17 06:59 18:59 Intake Total 1200 Balance 1200 - Medications Medications: Current Medications Acetaminophen (Tylenol 325mg Tab) 650 mg PO Q4H PRN PRN Reason: Fever >100.4 F Last Admin: 11/12/17 21:32 Dose: 650 mg Acetaminophen (Tylenol 650 Mg Supp) 650 mg RC Q6H PRN PRN Reason: Fever >100.4 F Last Admin: 11/15/17 06:18 Dose: 650 mg Allopurinol (Zyloprim) 300 mg PO DAILY [facility] Last Admin: 11/16/17 09:41 Dose: 300 mg Docusate Sodium (Colace Liquid) 100 mg PO TID [facility] Last Admin: 11/16/17 18:07 Dose: Not Given Enoxaparin Sodium (Lovenox) 30 mg SC DAILY [facility] PRN Reason: Protocol Last Admin: 11/16/17 09:42 Dose: 30 mg Ferrous Gluconate (Fergon) 324 mg PO TID [facility] Last Admin: 11/16/17 18:07 Dose: 324 mg Heparin Sodium (Porcine) (Heparin) 2,000 units IVP TTS [facility] PRN Reason: Protocol Last Admin: 11/17/17 10:12 Dose: 2,000 units Heparin Sodium (Porcine) (Heparin) 2,200 units ICA [facility] Last Admin: 11/15/17 11:35 Dose: 2,200 units Heparin Sodium (Porcine) (Heparin) 2,400 [facility] Last Admin: 11/15/17 11:36 Dose: 2,400 units Dextrose/Sodium Chloride (Dextrose 5%/0.45% Ns 1000 Ml) 1,000 mls @ 100 mls/hr IV .Q10H [facility] Last Admin: 11/17/17 03:30 Dose: 100 mls/hr Meropenem 250 mg/ Sodium (Chloride) 100 mls @ 100 mls/hr IVPB Q12H [facility] PRN Reason: Protocol Stop: 11/22/17 20:16 Last Admin: 11/17/17 08:37 Dose: 100 mls/hr Metoprolol Tartrate (Lopressor) 100 mg PO Q12 [facility] Last Admin: 11/16/17 22:04 Dose: 100 mg Non-Formulary Medication (Dolutegravir Sodium [Tivicay]) 50 mg PO DAILY [facility] Last Admin: 11/16/17 09:44 Dose: Not Given Nystatin (Nystop Topical Powder) 0 gm TOP BID [facility] Stop: 11/20/17 13:01 Last Admin: 11/16/17 18:08 Dose: 1 applic Ondansetron HCl (Zofran Inj) 4 mg IVP Q4H PRN PRN Reason: Nausea/Vomiting Last Admin: 11/13/17 06:31 Dose: 4 mg Ondansetron HCl (Zofran Tab) 4 mg PO Q4 PRN PRN Reason: Nausea/Vomiting Last Admin: 11/10/17 11:45 Dose: 4 mg Oxycodone HCl (Oxycodone Immediate Release Tab) 5 mg PO Q4H PRN PRN Reason: Pain, moderate (4-7) Last Admin: 11/17/17 08:41 Dose: 5 mg Pantoprazole Sodium (Protonix Inj) 40 mg IVP Q12 [facility] Last Admin: 11/16/17 22:02 Dose: 40 mg Sevelamer HCl (Renagel) 1,600 mg PO TID [facility] Last Admin: 11/16/17 18:09 Dose: 1,600 mg Vitamin B Complex/Vit C/Folic Acid (Nephro-Christel) 1 tab PO DAILY [facility] Last Admin: 11/16/17 09:41 Dose: 1 tab - Labs Labs: 11/17/17 07:00 11/17/17 07:00 PT 13.5 SECONDS (9.4-12.5) H 11/11/17 09:30 INR 1.17 (0.93-1.08) H 11/11/17 09:30 APTT 34.4 Seconds (25.1-36.5) 11/11/17 09:30
[2017-11-17] MEDS: Non Formulary Medication (Dolutegravir Sodium [Tivicay] 50 MG) PO SCH (15:29)
[2017-11-17] MEDS: Multivitamin Vitamin B Complex (Nephro-Vite) Tab PO SCH (15:33)
[2017-11-17] MEDS: Nystatin 100,000 Units/gm Topical Pow(15 gm) TOP SCH ×2 (15:33→17:57)
[2017-11-17] MEDS: Enoxaparin 30 mg Syringe SC SCH (15:33)
--- NOTE | 2017-11-17 17:23 | CP.PCM.PN ---
Subjective - Date & Time of Evaluation Date of Evaluation: 11/17/17 Time of Evaluation: 17:20 - Subjective Subjective: Surgery Patient seen and examined. No acute events. Dialysis today. Pain controlled. TOlerating liquid diet. NO BM since yesterday. Had large BM yesterday. Objective - Vital Signs/Intake and Output Vital Signs (last 24 hours): Temp Pulse Resp BP Pulse Ox 98.0 F 76 20 122/72 96 11/17/17 16:16 11/17/17 16:16 11/17/17 16:16 11/17/17 16:16 11/17/17 16:16 Intake and Output: 11/17/17 11/17/17 06:59 18:59 Intake Total 1200 360 Balance 1200 360 - Medications Medications: Current Medications Acetaminophen (Tylenol 325mg Tab) 650 mg PO Q4H PRN PRN Reason: Fever >100.4 F Last Admin: 11/12/17 21:32 Dose: 650 mg Acetaminophen (Tylenol 650 Mg Supp) 650 mg RC Q6H PRN PRN Reason: Fever >100.4 F Last Admin: 11/15/17 06:18 Dose: 650 mg Allopurinol (Zyloprim) 300 mg PO DAILY [facility] Last Admin: 11/17/17 15:34 Dose: Not Given Docusate Sodium (Colace Liquid) 100 mg PO TID [facility] Last Admin: 11/17/17 15:30 Dose: Not Given Enoxaparin Sodium (Lovenox) 30 mg SC DAILY [facility] PRN Reason: Protocol Last Admin: 11/17/17 15:33 Dose: Not Given Ferrous Gluconate (Fergon) 324 mg PO TID [facility] Last Admin: 11/17/17 15:37 Dose: 324 mg Heparin Sodium (Porcine) (Heparin) 2,000 units IVP TTS [facility] PRN Reason: Protocol Last Admin: 11/17/17 10:12 Dose: 2,000 units Heparin Sodium (Porcine) (Heparin) 2,200 units ICA [facility] Last Admin: 11/17/17 13:56 Dose: 2,200 units Heparin Sodium (Porcine) (Heparin) 2,400 units ICV [facility] Last Admin: 11/17/17 13:57 Dose: 2,400 units Dextrose/Sodium Chloride (Dextrose 5%/0.45% Ns 1000 Ml) 1,000 mls @ 100 mls/hr IV .Q10H [facility] Last Admin: 11/17/17 15:38 Dose: 100 mls/hr Meropenem 250 mg/ Sodium (Chloride) 100 mls @ 100 mls/hr IVPB Q12H [facility] PRN Reason: Protocol Stop: 11/22/17 20:16 Last Admin: 11/17/17 08:37 Dose: 100 mls/hr Metoprolol Tartrate (Lopressor) 100 mg PO Q12 [facility] Last Admin: 11/17/17 15:33 Dose: Not Given Non-Formulary Medication (Dolutegravir Sodium [Tivicay]) 50 mg PO DAILY [facility] Last Admin: 11/17/17 15:29 Dose: Not Given Nystatin (Nystop Topical Powder) 0 gm TOP BID [facility] Stop: 11/20/17 13:01 Last Admin: 11/17/17 15:33 Dose: Not Given Ondansetron HCl (Zofran Inj) 4 mg IVP Q4H PRN PRN Reason: Nausea/Vomiting Last Admin: 11/13/17 06:31 Dose: 4 mg Ondansetron HCl (Zofran Tab) 4 mg PO Q4 PRN PRN Reason: Nausea/Vomiting Last Admin: 11/10/17 11:45 Dose: 4 mg Oxycodone HCl (Oxycodone Immediate Release Tab) 5 mg PO Q4H PRN PRN Reason: Pain, moderate (4-7) Last Admin: 11/17/17 08:41 Dose: 5 mg Pantoprazole Sodium (Protonix Inj) 40 mg IVP Q12 [facility] Last Admin: 11/17/17 15:33 Dose: Not Given Sevelamer HCl (Renagel) 1,600 mg PO TID [facility] Last Admin: 11/17/17 15:37 Dose: 1,600 mg Vitamin B Complex/Vit C/Folic Acid (Nephro-Christel) 1 tab PO DAILY [facility] Last Admin: 11/17/17 15:33 Dose: Not Given - Labs Labs: 11/17/17 07:00 11/17/17 07:00 PT 13.5 SECONDS (9.4-12.5) H 11/11/17 09:30 INR 1.17 (0.93-1.08) H 11/11/17 09:30 APTT 34.4 Seconds (25.1-36.5) 11/11/17 09:30 - Constitutional Appears: No Acute Distress - Head Exam Head Exam: ATRAUMATIC, NORMAL INSPECTION, NORMOCEPHALIC - Eye Exam Eye Exam: EOMI, Normal appearance, PERRL Pupil Exam: NORMAL ACCOMODATION, PERRL - ENT Exam ENT Exam: Mucous Membranes Moist, Normal Exam - Neck Exam Neck Exam: Full ROM, Normal Inspection. absent: Lymphadenopathy - Respiratory Exam Respiratory Exam: Clear to Ausculation Bilateral, NORMAL BREATHING PATTERN - Cardiovascular Exam Cardiovascular Exam: REGULAR RHYTHM, +S1, +S2. absent: Murmur - GI/Abdominal Exam GI & Abdominal Exam: Distended, Soft, Tenderness, Normal Bowel Sounds. absent: Firm, Rigid Additional comments: Incision clean, stapled. - Extremities Exam Extremities Exam: absent: Tenderness - Back Exam Back Exam: NORMAL INSPECTION - Neurological Exam Neurological Exam: Alert, Awake, CN II-XII Intact, Oriented x3 - Psychiatric Exam Psychiatric exam: Normal Affect, Normal Mood - Skin Skin Exam: Dry, Intact, Normal Color, Warm Assessment and Plan - Assessment and Plan (Free Text) Assessment: POD 5 s/p ex lap, appendectomy Lysis of adhesion -FLD -MOnitor bowel function -Medical management -PT/oT -Incentive spirometer -Pain/nausea control -DVT ppx -ABX per ID DW Dr. Martinez
--- NOTE | 2017-11-18 04:18 | PN ---
DATE: SUBJECTIVE: The patient is seen earlier this morning in room 569, bed 1. The patient has no fevers and no chills. PHYSICAL EXAMINATION: VITAL SIGNS: Temperature is 98, blood pressure is 130/70. respiratory rate 20, heart rate of 76. HEENT: Unremarkable. NECK: Supple. HEART: Normal S1 and S2. LUNGS: Have decreased breath sounds. ABDOMEN: Soft, nontender. LABORATORY DATA: Reveals a white count of 13,700, hemoglobin of 9. Chemistries reveal the creatinine is 5.9. Urinalysis is noted. Review of orders, the patient is on meropenem. The patient also had a CAT scan of the abdomen and pelvis with p.o. contrast with dilated loops of bowel and mural thickening, small amount of ascites, 8 cm of fluid collection in the pelvis, loculated ascites . Dr. Martinez's note is reviewed. ASSESSMENT AND PLAN: A 72-year-old male with small bowel obstruction, status post exploratory laparotomy, who had adhesiolysis with repair of umbilical hernia and appendectomy with severe peripheral arterial disease and right [id number] amputation, systemic viral illness with influenza, severe sepsis with acute and chronic renal failure by history, and positive human immunodeficiency virus. Relatively good T-cell. CAT scan results are noted, we will discuss with Dr. Emmanuel Good, review the CAT scan and because of the persistent leukocytosis Dr. Good can do a CT guided aspirate of 8 cm collection. Cesar Flowers MD
[2017-11-18] MEDS: Dextrose 5%/0.45% NS 1,000 ML IV SCH ×2 (04:54→17:27)
--- NOTE | 2017-11-18 08:36 | CP.PCM.PN ---
Subjective - Date & Time of Evaluation Date of Evaluation: 11/18/17 Time of Evaluation: 06:45 - Subjective Subjective: Surgery Patient seen and examined. No acute events. Had 1 large BM overnight. Pain controlled. Tolerating current diet. Objective - Vital Signs/Intake and Output Vital Signs (last 24 hours): Temp Pulse Resp BP Pulse Ox 98.0 F 79 20 135/78 96 11/17/17 16:16 11/17/17 22:24 11/17/17 16:16 11/17/17 22:24 11/17/17 16:16 Intake and Output: 11/18/17 11/18/17 06:59 18:59 Intake Total 230 Balance 230 - Medications Medications: Current Medications Acetaminophen (Tylenol 325mg Tab) 650 mg PO Q4H PRN PRN Reason: Fever >100.4 F Last Admin: 11/12/17 21:32 Dose: 650 mg Acetaminophen (Tylenol 650 Mg Supp) 650 mg RC Q6H PRN PRN Reason: Fever >100.4 F Last Admin: 11/15/17 06:18 Dose: 650 mg Allopurinol (Zyloprim) 300 mg PO DAILY [facility] Last Admin: 11/17/17 15:34 Dose: Not Given Docusate Sodium (Colace Liquid) 100 mg PO TID [facility] Last Admin: 11/17/17 19:30 Dose: Not Given Enoxaparin Sodium (Lovenox) 30 mg SC DAILY [facility] PRN Reason: Protocol Last Admin: 11/17/17 15:33 Dose: Not Given Ferrous Gluconate (Fergon) 324 mg PO TID [facility] Last Admin: 11/17/17 17:34 Dose: 324 mg Heparin Sodium (Porcine) (Heparin) 2,000 units IVP TTS [facility] PRN Reason: Protocol Last Admin: 11/17/17 19:31 Dose: Not Given Heparin Sodium (Porcine) (Heparin) 2,200 units ICA TUTA [facility] Last Admin: 11/17/17 19:32 Dose: Not Given Heparin Sodium (Porcine) (Heparin) 2,400 units ICV TUTHSA [facility] Last Admin: 11/17/17 19:32 Dose: Not Given Dextrose/Sodium Chloride (Dextrose 5%/0.45% Ns 1000 Ml) 1,000 mls @ 100 mls/hr IV .Q10H [facility] Last Admin: 11/18/17 04:54 Dose: 100 mls/hr Meropenem 250 mg/ Sodium (Chloride) 100 mls @ 100 mls/hr IVPB Q12H [facility] PRN Reason: Protocol Stop: 11/22/17 20:16 Last Admin: 11/17/17 19:51 Dose: 100 mls/hr Metoprolol Tartrate (Lopressor) 100 mg PO Q12 [facility] Last Admin: 11/17/17 22:24 Dose: 100 mg Non-Formulary Medication (Dolutegravir Sodium [Tivicay]) 50 mg PO DAILY [facility] Last Admin: 11/17/17 15:29 Dose: Not Given Nystatin (Nystop Topical Powder) 0 gm TOP BID [facility] Stop: 11/20/17 13:01 Last Admin: 11/17/17 17:57 Dose: 1 applic Ondansetron HCl (Zofran Inj) 4 mg IVP Q4H PRN PRN Reason: Nausea/Vomiting Last Admin: 11/13/17 06:31 Dose: 4 mg Ondansetron HCl (Zofran Tab) 4 mg PO Q4 PRN PRN Reason: Nausea/Vomiting Last Admin: 11/10/17 11:45 Dose: 4 mg Oxycodone HCl (Oxycodone Immediate Release Tab) 5 mg PO Q4H PRN PRN Reason: Pain, moderate (4-7) Last Admin: 11/17/17 08:41 Dose: 5 mg Pantoprazole Sodium (Protonix Inj) 40 mg IVP Q12 [facility] Last Admin: 11/17/17 22:24 Dose: 40 mg Sevelamer HCl (Renagel) 1,600 mg PO TID [facility] Last Admin: 11/17/17 17:34 Dose: 1,600 mg Tramadol HCl (Ultram) 50 mg PO TID PRN PRN Reason: Pain, Mild (1-3) Vitamin B Complex/Vit C/Folic Acid (Nephro-Christel) 1 tab PO DAILY [facility] Last Admin: 11/17/17 15:33 Dose: Not Given - Labs Labs: 11/17/17 07:00 11/17/17 07:00 PT 13.5 SECONDS (9.4-12.5) H 11/11/17 09:30 INR 1.17 (0.93-1.08) H 11/11/17 09:30 APTT 34.4 Seconds (25.1-36.5) 11/11/17 09:30 - Constitutional Appears: Non-toxic, No Acute Distress - Head Exam Head Exam: ATRAUMATIC - Eye Exam Eye Exam: EOMI - ENT Exam ENT Exam: Mucous Membranes Moist - Neck Exam Neck Exam: Normal Inspection - Respiratory Exam Respiratory Exam: NORMAL BREATHING PATTERN. absent: Accessory Muscle Use, Respiratory Distress - Cardiovascular Exam Cardiovascular Exam: REGULAR RHYTHM, +S1, +S2. absent: Bradycardia, Tachycardia - GI/Abdominal Exam GI & Abdominal Exam: Soft, Normal Bowel Sounds. absent: Firm, Guarding, Rigid, Tenderness, Rebound Additional comments: Tomas in place, healing well abd soft, non-tender - Extremities Exam Additional comments: s/p AKA - Neurological Exam Neurological Exam: Alert, Awake, Oriented x3 - Skin Skin Exam: Warm Assessment and Plan - Assessment and Plan (Free Text) Assessment: 72M s/p ex lap, appendectomy, OTF POD 7 Plan: Advance diet to regular continue to Monitor bowel function Medical management PT/oT Incentive spirometer anti-emetic & analgesia PRN DVT ppx ABX per ID DW Dr. Juan Davis PGY1
[2017-11-18 08:47] LABS: HEMOGLOBIN 10.3 g/dL (14.0-18.0); MEAN CELL VOLUME 96.2 fl (80.0-105.0); MEAN CORPUSCULAR HEMOGLOBIN 29.9 pg (25.0-35.0); MEAN CORPUSCULAR HGB CONC 31.1 g/dl (31.0-37.0); MEAN PLATELET VOLUME 9.2 fl (7.0-11.0); RBC 3.44 10^6/uL (3.5-6.1); RED CELL DISTRIBUTION WIDTH 18.7 % (11.5-14.5)
[2017-11-18 09:08] LABS: ALB/GLOB RATIO 0.6 (1.1-1.8); ALBUMIN 2.4 g/dL (3.0-4.8); CALCIUM 7.9 mg/dL (8.4-10.5)
[2017-11-18] MEDS: Non Formulary Medication (Dolutegravir Sodium [Tivicay] 50 MG) PO SCH (10:09)
[2017-11-18] MEDS: Multivitamin Vitamin B Complex (Nephro-Vite) Tab PO SCH (10:10)
[2017-11-18] MEDS: Enoxaparin 30 mg Syringe SC SCH (10:10)
[2017-11-18] MEDS: Nystatin 100,000 Units/gm Topical Pow(15 gm) TOP SCH ×2 (10:12→17:26)
--- NOTE | 2017-11-18 16:16 | PN ---
DATE: 11/18/2017 SUBJECTIVE: The patient is in bed in no acute distress, nontoxic. PHYSICAL EXAMINATION: VITAL SIGNS: Temperature is 98, blood pressure is 120/60, respiratory rate of 18. HEENT: Unremarkable. NECK: Supple. LUNGS: Decreased breath sounds. HEART: Normal S1, S2. ABDOMEN: Soft, nontender. LABORATORY EXAMINATION: Reveals the patient's white count is down to normal, now at 11,000, hemoglobin of 13, platelets of 298. BUN of 14, creatinine of 3.7 and urinalysis is noted. The patient's CAT scan finding is also reviewed.. The patient has 8 cm fluid collection in the pelvis. There is a small amount of ascites. Dr. Martinez's note from today is also reviewed. ASSESSMENT AND PLAN: A 72-year-old male seen earlier this morning in 569, bed 1 with small bowel obstruction, exploratory laparotomy, lysis of adhesions, repair of umbilical hernia and appendectomy with severe peripheral artery disease and right [id number] amputation and systemic viral illness with influenza and severe sepsis, acute on chronic renal failure by history and positive human immunodeficiency virus and relatively good T-cells status post surgery with a CAT scan finding with a 8 cm collection in the pelvis, although now the white count has improved. We would recommend Dr. Emmanuel Good to review the CAT scan regarding a possible CT-guided aspiration. Currently, the patient is on meropenem and we will follow closely with you. Case discussed with surgical team. Cesar Flowers MD : 11/18/2017 10:47:48
--- NOTE | 2017-11-18 18:25 | PN ---
DATE: SUBJECTIVE: I saw Raza for the first time sitting out of bed. He is comfortable. He is still having some abdominal discomfort. I will call in PERRY Rivera. He is status post exploratory laparotomy for lysis of adhesions. He sitting out of bed today. He is eating a little bit best I have seen in a week. PHYSICAL EXAMINATION: VITAL SIGNS: He has a 98 temperature, 79 pulse, 135/70 blood pressure, 20 respiratory rate, 96% sat on room air. GENERAL: He is alert and talking. HEENT: Head is atraumatic, normocephalic. Throat is more dry. NECK: Supple. HEART: Regular rate. LUNGS: Decreased breath sounds, but clear. ABDOMEN: Soft. Positive bowel sounds. No guarding, no rebound. EXTREMITIES: He has a right AKA, left foot is bandaged. MEDICATIONS: He is currently on Colace, dextrose, dolutegravir, Fergon, heparin, Lopressor, Lovenox, Merrem IV, vitamin B complex, nystatin, oxycodone, Protonix, Renagel, Tylenol, Ultram and Zofran. LABORATORY DATA: He has a 131 sodium, potassium 3.7, BUN 14, creatinine 3.7 on dialysis. GFR is 16. Sugar was 76. Calcium 7.9, total bili is 0.3, AST is 22, ALT is 17 and alkaline phosphatase 85, total protein 6.2. He has 11 white count that is the best it has been since he has been here. It is almost normal, hemoglobin 10.3 hematocrit 33.1, platelets 298. ASSESSMENT AND PLAN: He is being seen by Surgery, Infectious Disease, Renal, Podiatry. He has small bowel obstruction, exploratory laparotomy, lysis of adhesions. He has peripheral arterial disease, severe sepsis, acute on chronic renal failure with dialysis, history of human immunodeficiency virus, history of cerebrovascular accident and hopefully, he will continue to improve. He also has a collection of fluid and there is going to be a Dr. Good CT guided aspiration. We will check his labs tomorrow. Parag Brownlee DO [facility] # [id number]
[2017-11-19 06:27] LABS: HEMOGLOBIN 10.1 g/dL (14.0-18.0); MEAN CELL VOLUME 93.6 fl (80.0-105.0); MEAN CORPUSCULAR HEMOGLOBIN 29.4 pg (25.0-35.0); MEAN CORPUSCULAR HGB CONC 31.5 g/dl (31.0-37.0); MEAN PLATELET VOLUME 9.8 fl (7.0-11.0); RBC 3.43 10^6/uL (3.5-6.1); RED CELL DISTRIBUTION WIDTH 18.2 % (11.5-14.5); WHITE BLOOD COUNT 11.2 10^3/ul (4.5-11.0)
[2017-11-19 07:16] LABS: ALB/GLOB RATIO 0.6 (1.1-1.8); ALBUMIN 2.2 g/dL (3.0-4.8); CALCIUM 7.5 mg/dL (8.4-10.5)
--- NOTE | 2017-11-19 08:59 | CP.PCM.PN ---
Subjective - Date & Time of Evaluation Date of Evaluation: 11/19/17 Time of Evaluation: 08:56 - Subjective Subjective: Surgery: Dr. Martinez Pt seen and examined. Resting comfortably in bed. States that abd pain is slightly improved. He is tolerated diet. No N/V. He states that he occasionally feels bloated. Passing flatus/BM. No F/C. Objective - Vital Signs/Intake and Output Vital Signs (last 24 hours): Temp Pulse Resp BP Pulse Ox 97.8 F 68 16 127/71 95 11/19/17 08:18 11/19/17 08:18 11/19/17 08:18 11/19/17 08:18 11/19/17 08:18 Intake and Output: 11/19/17 11/19/17 06:59 18:59 Intake Total 420 Balance 420 - Medications Medications: Current Medications Acetaminophen (Tylenol 325mg Tab) 650 mg PO Q4H PRN PRN Reason: Fever >100.4 F Last Admin: 11/12/17 21:32 Dose: 650 mg Acetaminophen (Tylenol 650 Mg Supp) 650 mg RC Q6H PRN PRN Reason: Fever >100.4 F Last Admin: 11/15/17 06:18 Dose: 650 mg Allopurinol (Zyloprim) 300 mg PO DAILY [facility] Last Admin: 11/18/17 10:10 Dose: 300 mg Docusate Sodium (Colace Liquid) 100 mg PO TID [facility] Last Admin: 11/18/17 17:26 Dose: Not Given Enoxaparin Sodium (Lovenox) 30 mg SC DAILY [facility] PRN Reason: Protocol Last Admin: 11/18/17 10:10 Dose: 30 mg Ferrous Gluconate (Fergon) 324 mg PO TID [facility] Last Admin: 11/18/17 17:25 Dose: 324 mg Heparin Sodium (Porcine) (Heparin) 2,000 units IVP TTS [facility] PRN Reason: Protocol Last Admin: 11/17/17 19:31 Dose: Not Given Heparin Sodium (Porcine) (Heparin) 2,200 units ICA TUTHSA [facility] Last Admin: 11/17/17 19:32 Dose: Not Given Heparin Sodium (Porcine) (Heparin) 2,400 units ICV TUTHSA [facility] Last Admin: 11/17/17 19:32 Dose: Not Given Meropenem 250 mg/ Sodium (Chloride) 100 mls @ 100 mls/hr IVPB Q12H [facility] PRN Reason: Protocol Stop: 11/22/17 20:16 Last Admin: 11/18/17 20:46 Dose: 100 mls/hr Metoprolol Tartrate (Lopressor) 100 mg PO Q12 [facility] Last Admin: 11/18/17 21:00 Dose: 100 mg Non-Formulary Medication (Dolutegravir Sodium [Tivicay]) 50 mg PO DAILY [facility] Last Admin: 11/18/17 10:09 Dose: Not Given Nystatin (Nystop Topical Powder) 0 gm TOP BID [facility] Stop: 11/20/17 13:01 Last Admin: 11/18/17 17:26 Dose: 1 applic Ondansetron HCl (Zofran Inj) 4 mg IVP Q4H PRN PRN Reason: Nausea/Vomiting Last Admin: 11/13/17 06:31 Dose: 4 mg Ondansetron HCl (Zofran Tab) 4 mg PO Q4 PRN PRN Reason: Nausea/Vomiting Last Admin: 11/10/17 11:45 Dose: 4 mg Oxycodone HCl (Oxycodone Immediate Release Tab) 5 mg PO Q4H PRN PRN Reason: Pain, moderate (4-7) Last Admin: 11/17/17 08:41 Dose: 5 mg Pantoprazole Sodium (Protonix Inj) 40 mg IVP Q12 [facility] Last Admin: 11/18/17 21:00 Dose: 40 mg Sevelamer HCl (Renagel) 1,600 mg PO TID [facility] Last Admin: 11/18/17 17:25 Dose: 1,600 mg Tramadol HCl (Ultram) 50 mg PO TID PRN PRN Reason: Pain, Mild (1-3) Vitamin B Complex/Vit C/Folic Acid (Nephro-Christel) 1 tab PO DAILY [facility] Last Admin: 11/18/17 10:10 Dose: 1 tab - Labs Labs: 11/19/17 06:00 11/19/17 06:00 PT 13.5 SECONDS (9.4-12.5) H 11/11/17 09:30 INR 1.17 (0.93-1.08) H 11/11/17 09:30 APTT 34.4 Seconds (25.1-36.5) 11/11/17 09:30 - Constitutional Appears: Non-toxic, No Acute Distress, Chronically Ill - Head Exam Head Exam: ATRAUMATIC, NORMOCEPHALIC - Eye Exam Eye Exam: EOMI - ENT Exam ENT Exam: Mucous Membranes Moist - Neck Exam Neck Exam: Full ROM - Respiratory Exam Respiratory Exam: NORMAL BREATHING PATTERN. absent: Accessory Muscle Use, Respiratory Distress - GI/Abdominal Exam GI & Abdominal Exam: Soft. absent: Distended, Firm, Guarding, Rigid, Tenderness , Rebound Additional comments: midline incision C/D/I w. ashely in place - Extremities Exam Additional comments: R AKA - Neurological Exam Neurological Exam: Alert, Awake, Oriented x3 - Psychiatric Exam Psychiatric exam: Normal Affect, Normal Mood - Skin Skin Exam: Dry, Intact, Warm Assessment and Plan - Assessment and Plan (Free Text) Assessment: 72M w. SBO s/p ex-lap w. OTF and appendectomy POD#8, now w. pelvic collection Plan: -F/U w. IR regarding drainage -c/w abx per ID -PT/OT as tolerated -DVT prophylaxis -Encourage IS use -d/w attending Zemaitis PGY3
[2017-11-19] MEDS: Multivitamin Vitamin B Complex (Nephro-Vite) Tab PO SCH (09:33)
[2017-11-19] MEDS: Non Formulary Medication (Dolutegravir Sodium [Tivicay] 50 MG) PO SCH (09:34)
[2017-11-19] MEDS: Nystatin 100,000 Units/gm Topical Pow(15 gm) TOP SCH ×2 (09:34→19:00)
[2017-11-19] MEDS: Enoxaparin 30 mg Syringe SC SCH (09:35)
--- NOTE | 2017-11-19 09:44 | CP.PCM.PN ---
Subjective - Date & Time of Evaluation Date of Evaluation: 11/19/17 Time of Evaluation: 09:39 - Subjective Subjective: Patient seen and examined, resting comfortably in bed. No acute events overnight. He continues to endorse ongoing abdominal pain primarily at surgical site but otherwise denies nausea, vomiting, fever/chills. He had a bowel movement yesterday and is tolerating PO diet. Review of vitals from today are normal. 12 point review of systems performed, negative aside from mentioned above. Objective - Vital Signs/Intake and Output Vital Signs (last 24 hours): Temp Pulse Resp BP Pulse Ox 97.8 F 68 16 127/71 95 11/19/17 08:18 11/19/17 08:18 11/19/17 08:18 11/19/17 08:18 11/19/17 08:18 Intake and Output: 11/19/17 11/19/17 06:59 18:59 Intake Total 420 Balance 420 - Medications Medications: Current Medications Acetaminophen (Tylenol 325mg Tab) 650 mg PO Q4H PRN PRN Reason: Fever >100.4 F Last Admin: 11/12/17 21:32 Dose: 650 mg Acetaminophen (Tylenol 650 Mg Supp) 650 mg RC Q6H PRN PRN Reason: Fever >100.4 F Last Admin: 11/15/17 06:18 Dose: 650 mg Allopurinol (Zyloprim) 300 mg PO DAILY [facility] Last Admin: 11/18/17 10:10 Dose: 300 mg Docusate Sodium (Colace Liquid) 100 mg PO TID [facility] Last Admin: 11/18/17 17:26 Dose: Not Given Enoxaparin Sodium (Lovenox) 30 mg SC DAILY [facility] PRN Reason: Protocol Last Admin: 11/18/17 10:10 Dose: 30 mg Ferrous Gluconate (Fergon) 324 mg PO TID [facility] Last Admin: 11/18/17 17:25 Dose: 324 mg Heparin Sodium (Porcine) (Heparin) 2,000 units IVP TTS [facility] PRN Reason: Protocol Last Admin: 11/17/17 19:31 Dose: Not Given Heparin Sodium (Porcine) (Heparin) 2,200 units ICA TUTHSA [facility] Last Admin: 11/17/17 19:32 Dose: Not Given Heparin Sodium (Porcine) (Heparin) 2,400 units ICV TUTHSA [facility] Last Admin: 11/17/17 19:32 Dose: Not Given Meropenem 250 mg/ Sodium (Chloride) 100 mls @ 100 mls/hr IVPB Q12H [facility] PRN Reason: Protocol Stop: 11/22/17 20:16 Last Admin: 11/18/17 20:46 Dose: 100 mls/hr Metoprolol Tartrate (Lopressor) 100 mg PO Q12 [facility] Last Admin: 11/18/17 21:00 Dose: 100 mg Non-Formulary Medication (Dolutegravir Sodium [Tivicay]) 50 mg PO DAILY [facility] Last Admin: 11/18/17 10:09 Dose: Not Given Nystatin (Nystop Topical Powder) 0 gm TOP BID [facility] Stop: 11/20/17 13:01 Last Admin: 11/18/17 17:26 Dose: 1 applic Ondansetron HCl (Zofran Inj) 4 mg IVP Q4H PRN PRN Reason: Nausea/Vomiting Last Admin: 11/13/17 06:31 Dose: 4 mg Ondansetron HCl (Zofran Tab) 4 mg PO Q4 PRN PRN Reason: Nausea/Vomiting Last Admin: 11/10/17 11:45 Dose: 4 mg Oxycodone HCl (Oxycodone Immediate Release Tab) 5 mg PO Q4H PRN PRN Reason: Pain, moderate (4-7) Last Admin: 11/17/17 08:41 Dose: 5 mg Pantoprazole Sodium (Protonix Inj) 40 mg IVP Q12 [facility] Last Admin: 11/18/17 21:00 Dose: 40 mg Sevelamer HCl (Renagel) 1,600 mg PO TID [facility] Last Admin: 11/18/17 17:25 Dose: 1,600 mg Tramadol HCl (Ultram) 50 mg PO TID PRN PRN Reason: Pain, Mild (1-3) Vitamin B Complex/Vit C/Folic Acid (Nephro-Christel) 1 tab PO DAILY [facility] Last Admin: 11/18/17 10:10 Dose: 1 tab - Labs Labs: 11/19/17 06:00 11/19/17 06:00 PT 13.5 SECONDS (9.4-12.5) H 11/11/17 09:30 INR 1.17 (0.93-1.08) H 11/11/17 09:30 APTT 34.4 Seconds (25.1-36.5) 11/11/17 09:30 - Constitutional Appears: Non-toxic, No Acute Distress - Head Exam Head Exam: NORMAL INSPECTION - Eye Exam Eye Exam: EOMI, Normal appearance - ENT Exam ENT Exam: Mucous Membranes Moist - Respiratory Exam Respiratory Exam: Clear to Ausculation Bilateral - Cardiovascular Exam Cardiovascular Exam: +S1, +S2 - GI/Abdominal Exam GI & Abdominal Exam: Soft, Tenderness, Normal Bowel Sounds Additional comments: mild tenderness to palpation at midline surgical site ashely intact - Extremities Exam Additional comments: bilateral BKA - Skin Skin Exam: Dry, Intact, Normal Color, Warm Assessment and Plan - Assessment and Plan (Free Text) Assessment: ESRD on HD HIV PVD s/p bilateral BKA small bowel obstruction, s/p surgical intervention with OTF pelvic fluid collection - seroma? Plan: - Diet as tolerated - Follow up surgical recommendations - Continue with antibiotic therapy - Follow up IR recommendations regarding potential fluid drainage - No planned GI intervention, will continue to monitor patient clinical course
--- NOTE | 2017-11-19 12:39 | PN ---
DATE: SUBJECTIVE: I saw him sitting up in bed. He is for the most part comfortable. He is alert. Does not want to eat this morning. taste of the eggs, but he has not thrown up. He passed his bowels yesterday. He is being seen by Infectious Disease, Surgery, Renal, Podiatry. He has multiple problems. He has sepsis, small bowel obstruction with exploratory lap with lysis of adhesions. He has an old right AKA. He has peripheral artery disease, diabetes. He is going to possibly go for a needle-guided aspiration of the type of abscess if Dr. Emmanuel Good thinks he can get it, hopefully today. PHYSICAL EXAMINATION: VITAL SIGNS: He has a 97.8 temp, 68 pulse, 127/71 blood pressure, 16 respiratory rate, 94% O2 sat on 2 L. HEENT: His head is atraumatic, normocephalic. Throat is dry. NECK: Supple. HEART: Regular rate. LUNGS: Decreased breath sounds, but clear. ABDOMEN: Soft. Decreased bowel sounds. No guarding. No rebound. EXTREMITIES: He has a right AKA and the left foot is bandaged. LABORATORY DATA: He has a 128 sodium, potassium 4, BUN is 80, creatinine is 4.5 on dialysis, GFR is 13, sugar is 70, calcium is 7.5, total bili is 0.2, AST is 30, ALT is 23, alk phos is 80, total protein six. White count is 11.2, , 10.1 hemoglobin, 32.1 hematocrit with 316 platelets. ASSESSMENT AND PLAN: Continue with aggressive treatment and care as per the specialists. I believe he only has 10 or 11 days left at subacute rehab. He needs physical therapy before he goes home. We will see if they will do an aspiration of his abscess. We will check his labs tomorrow. We will get him out of bed to chair. Encourage him to eat. Parag Brownlee DO [facility]
[2017-11-19] MEDS ORDERED: Midazolam 2 MG/2 ML VIAL ONE (12:42)
[2017-11-19] MEDS ORDERED: Lidocaine 1% Inj (20ml) ONE (12:43)
--- NOTE | 2017-11-19 14:21 | CT ---
PROCEDURE: CT-guided pelvic aspiration HISTORY: Recent exploratory laparotomy. Pelvic collection. Evaluate for abscess. PHYSICIAN(S): Emmanuel Good MD. TECHNIQUE: The relative risks and indications for the procedure were explained to the patient and informed consent obtained. The patient was placed in a right decubitus position on the CT scanner and preliminary images through the pelvis performed. This revealed a 5 x 7.5 cm fluid collection in the cul-de-sac.. A left trans gluteal approach was selected and the area prepped/draped in the usual sterile fashion. Conscious sedation and monitoring were provided throughout the procedure by nurse. A 7 German paracentesis catheter was trocar into the pelvic collection and 80 cc of clear pan fluid aspirated. The appropriate labs were sent. The patient tolerated the procedure well. IMPRESSION: 1. CT-guided pelvic aspiration as described above.
--- NOTE | 2017-11-19 15:26 | CP.PCM.PN ---
Subjective - Date & Time of Evaluation Date of Evaluation: 11/19/17 Time of Evaluation: 09:50 - Subjective Subjective: Comfortable in bed, still with occasional pain in the abdomen but currently no pain, ate half of his breakfast, no fevers. Objective - Vital Signs/Intake and Output Vital Signs (last 24 hours): Temp Pulse Resp BP Pulse Ox 98.3 F 68 18 119/68 100 11/19/17 14:10 11/19/17 14:10 11/19/17 14:10 11/19/17 14:10 11/19/17 14:10 Intake and Output: 11/19/17 11/19/17 06:59 18:59 Intake Total 420 240 Balance 420 240 - Medications Medications: Current Medications Acetaminophen (Tylenol 325mg Tab) 650 mg PO Q4H PRN PRN Reason: Fever >100.4 F Last Admin: 11/12/17 21:32 Dose: 650 mg Acetaminophen (Tylenol 650 Mg Supp) 650 mg RC Q6H PRN PRN Reason: Fever >100.4 F Last Admin: 11/15/17 06:18 Dose: 650 mg Allopurinol (Zyloprim) 300 mg PO DAILY [facility] Last Admin: 11/19/17 09:36 Dose: 300 mg Docusate Sodium (Colace Liquid) 100 mg PO TID [facility] Last Admin: 11/19/17 14:46 Dose: 100 mg Enoxaparin Sodium (Lovenox) 30 mg SC DAILY [facility] PRN Reason: Protocol Last Admin: 11/19/17 09:35 Dose: 30 mg Ferrous Gluconate (Fergon) 324 mg PO TID [facility] Last Admin: 11/19/17 14:46 Dose: 324 mg Heparin Sodium (Porcine) (Heparin) 2,000 units IVP TTS [facility] PRN Reason: Protocol Last Admin: 11/17/17 19:31 Dose: Not Given Heparin Sodium (Porcine) (Heparin) 2,200 units ICA TUTHSA [facility] Last Admin: 11/17/17 19:32 Dose: Not Given Heparin Sodium (Porcine) (Heparin) 2,400 units ICV [facility]SA [facility] Last Admin: 11/17/17 19:32 Dose: Not Given Meropenem 250 mg/ Sodium (Chloride) 100 mls @ 100 mls/hr IVPB Q12H [facility] PRN Reason: Protocol Stop: 11/22/17 20:16 Last Admin: 11/19/17 09:25 Dose: 100 mls/hr Metoprolol Tartrate (Lopressor) 100 mg PO Q12 [facility] Last Admin: 11/19/17 09:36 Dose: 100 mg Non-Formulary Medication (Dolutegravir Sodium [Tivicay]) 50 mg PO DAILY [facility] Last Admin: 11/19/17 09:34 Dose: Not Given Nystatin (Nystop Topical Powder) 0 gm TOP BID [facility] Stop: 11/20/17 13:01 Last Admin: 11/19/17 09:34 Dose: 1 applic Ondansetron HCl (Zofran Inj) 4 mg IVP Q4H PRN PRN Reason: Nausea/Vomiting Last Admin: 11/13/17 06:31 Dose: 4 mg Ondansetron HCl (Zofran Tab) 4 mg PO Q4 PRN PRN Reason: Nausea/Vomiting Last Admin: 11/10/17 11:45 Dose: 4 mg Pantoprazole Sodium (Protonix Inj) 40 mg IVP Q12 [facility] Last Admin: 11/19/17 09:31 Dose: 40 mg Sevelamer HCl (Renagel) 1,600 mg PO TID [facility] Last Admin: 11/19/17 14:45 Dose: 1,600 mg Tramadol HCl (Ultram) 50 mg PO TID PRN PRN Reason: Pain, Mild (1-3) Last Admin: 11/19/17 09:35 Dose: 50 mg Vitamin B Complex/Vit C/Folic Acid (Nephro-Christel) 1 tab PO DAILY [facility] Last Admin: 11/19/17 09:33 Dose: 1 tab - Labs Labs: 11/19/17 06:00 11/19/17 06:00 PT 13.5 SECONDS (9.4-12.5) H 11/11/17 09:30 INR 1.17 (0.93-1.08) H 11/11/17 09:30 APTT 34.4 Seconds (25.1-36.5) 11/11/17 09:30 - Constitutional Appears: Chronically Ill - Head Exam Head Exam: NORMAL INSPECTION - Neck Exam Neck Exam: absent: Meningismus - Respiratory Exam Respiratory Exam: Decreased Breath Sounds - Cardiovascular Exam Cardiovascular Exam: +S1, +S2 - GI/Abdominal Exam GI & Abdominal Exam: Soft. absent: Tenderness - Extremities Exam Additional comments: right AKA stump with dressings in place Assessment and Plan - Assessment and Plan (Free Text) Plan: Assessment small bowel obstruction S/P ex-lap, adhesiolysis, repair of umbilical hernia and appendectomy, now with pelvic fluid collection R/O pelvic abscess S/P UTI severe PAD S/P angioplasty of the left tibial artery S/P right AKA UTI with MRSA and Strep viridans systemic viral illness with Influenza history of left foot 3rd digit chronic osteomyelitis S/P amputation and debridement right sided nephrolithiasis history of severe sepsis with acute on chronic renal failure probably due to pyelonephritis with E. coli bacteremia history of C. diff. associated diarrhea Charcot foot, left history of left 2nd toe dry gangrene Chronic renal failure on hemodialysis HTN prostate CA HIV [place] [facility] [place] and virus load < 1.3 log) history of osteomyelitis of left first toe S/P amputation (2015) gout history of left foot ulcers Plan continue Merrem and will follow up plan for drainage of the pelvic abscess and sent for cultures continue antiretroviral therapy (lamivudine, abacavir on formulary but dolutegravir should be taken by patient from his home supply) overall prognosis is poor
--- NOTE | 2017-11-19 15:58 | CP.PCM.PN ---
Subjective - Date & Time of Evaluation Date of Evaluation: 11/19/17 Time of Evaluation: 15:58 - Subjective Subjective: Nephrology Consultation Note: Assessment:stable High grade SBO s/p surgery, appendectomy UTI, Hyperkalemia hx of prostate CA Hypertensive Chronic Kidney Disease (I12.9) ESRD on HD via permacath (TTS) Anemia (D64.9), HTN (I12.9) HIV on HAART, PVD s/p angioplasty s/p Rt AKA Plan plan for HD tomorrow as per TTS. nephrovite 1 tab/day. aransep 40 mcg weekly for anemia 11/13/17. PRBC as needed . last Hb 10.1 hold phosphorus binders while pt NPO Hypertension control with meds as ordered. Patient was on RAAS edyta as losartan>>held for now due to BP on low side. hold norvasc ID, , Surgery and GI following Dose meds/antibiotics for ESRD status. Avoid fleets enema/magnesium based laxatives. Avoid nephrotoxins/NSAIDs/ iodinated contrast (unless needed emergently) Further work up/management as per primary team. Thanks for allowing me to participate in care of your patient. Will follow patient with you. Please call if any Qs. Dr Yandel Arechiga Office: [phone] reason for consult: ESRD, HTN HPI: Pt is a 72 y/o M with hx of HIV on HAART, PVD s/p angioplasty, Rt AKA, hypertension (10-15 years), ESRD [place]via [place]acath) [place] [facility] [place] toe [place], prostate CA presented with groin pain and cloudy urine. being managed for UTI renal consult for ESRD, HTN management pt doesn't feel well. says everything is bothering him as lower ext pain, groin pain. says alcala catheter was removed 2 weeks ago ROS: denies CP/SOB. all other neg except as in HPI. improved abdomen pain. s/p CT guided aspiration 11/19/17 Physical Examination: General Appearance: comfortable, in no acute respiratory distress, facial muscles wasted, ill appearing Vitals reviewed and noted as below Head; Atraumatic, normocephalic ENT: no ulcers no thrush. Tongue is midline dry. Oropharynx: no rash or ulcers. EYES: Pupils are equal, round and reactive to light accommodation. Eye muscles and extraocular movement intact. Sclera is anicteric. Neck; supple no lymphadenopathy, no thyromegaly or bruit Lungs: Normal respiratory rate/effort. Breath sounds bilateral clear Heart: Normal rate. s1s2 normal. No rub or gallop. Extremities: no edema. No varicose veins. s/p Rt AKA Neurological: Patient is alert oriented x 3 follow commands,. no focal deficit Skin: Warm and dry. Normal turgor. Palpitation: Normal elasticity for age. Abdomen: Abdomen is soft. Bowel sounds decreased. s/p surgery, ashely + Psych: limited insight. flat affect MSK: Digits and nails normal, left foot toe amputations in past. Rt AKA. : kidney not palpable. Access: permacath and maturing left AVF Labs/imaging/EKG reviewed. Past medical history, past surgical history, family history, social history, allergy reviewed and noted as below Family hx: sister was on dialysis. Rest non-contributory Objective - Vital Signs/Intake and Output Vital Signs (last 24 hours): Temp Pulse Resp BP Pulse Ox 98.3 F 68 18 119/68 100 11/19/17 14:10 11/19/17 14:10 11/19/17 14:10 11/19/17 14:10 11/19/17 14:10 Intake and Output: 11/19/17 11/19/17 06:59 18:59 Intake Total 420 240 Balance 420 240 - Medications Medications: Current Medications Acetaminophen (Tylenol 325mg Tab) 650 mg PO Q4H PRN PRN Reason: Fever >100.4 F Last Admin: 11/12/17 21:32 Dose: 650 mg Acetaminophen (Tylenol 650 Mg Supp) 650 mg RC Q6H PRN PRN Reason: Fever >100.4 F Last Admin: 11/15/17 06:18 Dose: 650 mg Allopurinol (Zyloprim) 300 mg PO DAILY [facility] Last Admin: 11/19/17 09:36 Dose: 300 mg Docusate Sodium (Colace Liquid) 100 mg PO TID [facility] Last Admin: 11/19/17 14:46 Dose: 100 mg Enoxaparin Sodium (Lovenox) 30 mg SC DAILY [facility] PRN Reason: Protocol Last Admin: 11/19/17 09:35 Dose: 30 mg Ferrous Gluconate (Fergon) 324 mg PO TID [facility] Last Admin: 11/19/17 14:46 Dose: 324 mg Heparin Sodium (Porcine) (Heparin) 2,000 units IVP TTS [facility] PRN Reason: Protocol Last Admin: 11/17/17 19:31 Dose: Not Given Heparin Sodium (Porcine) (Heparin) 2,[facility] Last Admin: 11/17/17 19:32 Dose: Not Given Heparin Sodium (Porcine) (Heparin) 2,400 units [facility]CV [facility] Last Admin: 11/17/17 19:32 Dose: Not Given Meropenem 250 mg/ Sodium (Chloride) 100 mls @ 100 mls/hr IVPB Q12H [facility] PRN Reason: Protocol Stop: 11/22/17 20:16 Last Admin: 11/19/17 09:25 Dose: 100 mls/hr Metoprolol Tartrate (Lopressor) 100 mg PO Q12 [facility] Last Admin: 11/19/17 09:36 Dose: 100 mg Non-Formulary Medication (Dolutegravir Sodium [Tivicay]) 50 mg PO DAILY [facility] Last Admin: 11/19/17 09:34 Dose: Not Given Nystatin (Nystop Topical Powder) 0 gm TOP BID [facility] Stop: 11/20/17 13:01 Last Admin: 11/19/17 09:34 Dose: 1 applic Ondansetron HCl (Zofran Inj) 4 mg IVP Q4H PRN PRN Reason: Nausea/Vomiting Last Admin: 11/13/17 06:31 Dose: 4 mg Ondansetron HCl (Zofran Tab) 4 mg PO Q4 PRN PRN Reason: Nausea/Vomiting Last Admin: 11/10/17 11:45 Dose: 4 mg Pantoprazole Sodium (Protonix Inj) 40 mg IVP Q12 [facility] Last Admin: 11/19/17 09:31 Dose: 40 mg Sevelamer HCl (Renagel) 1,600 mg PO TID [facility] Last Admin: 11/19/17 14:45 Dose: 1,600 mg Tramadol HCl (Ultram) 50 mg PO TID PRN PRN Reason: Pain, Mild (1-3) Last Admin: 11/19/17 09:35 Dose: 50 mg Vitamin B Complex/Vit C/Folic Acid (Nephro-Christel) 1 tab PO DAILY [facility] Last Admin: 11/19/17 09:33 Dose: 1 tab - Labs Labs: 11/19/17 06:00 11/19/17 06:00 PT 13.5 SECONDS (9.4-12.5) H 11/11/17 09:30 INR 1.17 (0.93-1.08) H 11/11/17 09:30 APTT 34.4 Seconds (25.1-36.5) 11/11/17 09:30
[2017-11-19 16:37] LABS: BF GROSS APPEARANCE CLOUDY (CLEAR); BODY FLUID TOTAL COUNT 100 (0-0)
--- NOTE | 2017-11-19 21:39 | CON ---
CARDIOLOGY CONSULTATION DATE OF CONSULTATION: 11/19/2017 HISTORY OF PRESENT ILLNESS: The patient is a 72-year-old male who came with small bowel obstruction, status post surgery for lysis. The patient is awake, able to take p.o., without shortness of breath, without chest pain. The patient's past medical history is notable for end-stage renal disease, treated with dialysis. He suffers from hypertension. He also has a history of HIV. He denies chest pain, denies shortness of breath. SOCIAL HISTORY The patient denies smoking. REVIEW OF SYSTEMS: Fourteen-point review of systems is reviewed in detail. No cardiac symptomatology is noted. PHYSICAL EXAMINATION: VITAL SIGNS: Blood pressure is 124/72, the heart rates in the 70s. NECK: Negative JVD. LUNGS: Decreased breath sounds. HEART: With S1, S2. EXTREMITIES: Without edema. DIAGNOSTIC STUDIES: Laboratories include which EKG shows no acute changes. Hemoglobin is 10.1. Chemistries, BUN and creatinine are 18 and 4.5 with a potassium of 4.0. IMPRESSION: 1. Status post laparotomy with lysis of the adhesions. 2. End-stage renal disease, treated with dialysis. 3. Hypertension. 4. History of cerebrovascular accident. 5. History of human immunodeficiency virus. PLAN: Given these findings, the patient is hemodynamically stable. He is starting to take p.o. without issues. Cardiac bahena, there is no evidence for CHF. Emmanuel Weller MD
[2017-11-20 08:59] LABS: HEMOGLOBIN 9.1 g/dL (14.0-18.0); MEAN CELL VOLUME 91.5 fl (80.0-105.0); MEAN CORPUSCULAR HEMOGLOBIN 29.8 pg (25.0-35.0); MEAN CORPUSCULAR HGB CONC 32.6 g/dl (31.0-37.0); MEAN PLATELET VOLUME 9.6 fl (7.0-11.0); RBC 3.05 10^6/uL (3.5-6.1); RED CELL DISTRIBUTION WIDTH 17.8 % (11.5-14.5); WHITE BLOOD COUNT 9.4 10^3/ul (4.5-11.0)
--- NOTE | 2017-11-20 09:15 | PN ---
DATE: SUBJECTIVE: I saw him in dialysis. He is resting comfortably in a chair. He is actually more coherent and alert. He is trying physical therapy. He is the best I have seen him mentally. MEDICATIONS: He is on Colace, Tivicay, Fergon, heparin, Lopressor, Lovenox, Merrem IV, Nephro-Christel, nystatin topical powder, Protonix, Renagel, Tylenol, Ultram, Zofran and Zyloprim. PHYSICAL EXAMINATION: VITAL SIGNS: He has a 97.5 temp, 64 pulse, 120/67 blood pressure, 18 respiratory rate, 96% O2 sat on room air. HEENT: His head is atraumatic, normocephalic. HEART: Regular rate. LUNGS: Clear to auscultation. ABDOMEN: Soft. He has a right AKA and the left foot is bandaged. LABORATORY DATA: He has a 11.2 white count, a little up; 10.1 hemoglobin; 32.1 hematocrit with 316 platelets. He has a 128 sodium, potassium 4, BUN is 80, creatinine 4.5, last blood sugar was 63, calcium 7.5, total bili is 0.2, AST is 30, ALT is 23, alk phos is 80. ASSESSMENT AND PLAN: He is being seen by Renal, Infectious Disease. He had a cyst aspiration by Dr. Emmanuel Good, may be that is why he is starting to feel better. He is being seen by Cardiology. He had a small bowel obstruction, status post exploratory lap with lysis of adhesions, repair of umbilical hernia and appendectomy. He had a pelvic abscess which was aspirated. He has a urinary tract infection. He has got multiple issues. He had a right above-knee amputation and we will continue with treatment and care with IV antibiotics. Discussed with the case management about when I could discharge him. Parag Brownlee DO
[2017-11-20 09:21] LABS: ALB/GLOB RATIO 0.6 (1.1-1.8); ALBUMIN 2.1 g/dL (3.0-4.8); CALCIUM 7.3 mg/dL (8.4-10.5)
--- NOTE | 2017-11-20 11:23 | CP.PCM.PN ---
<Tania Driscoll - Last Filed: 11/20/17 11:29> Subjective - Date & Time of Evaluation Date of Evaluation: 11/20/17 Time of Evaluation: 07:20 - Subjective Subjective: PGY4 GI Follow-up Pt seen and examined bedside No complaints Abd pain present but improved No BM yesterday tolerating diet ROS: 12 point ROS conducted neg other than above Objective - Vital Signs/Intake and Output Vital Signs (last 24 hours): Temp Pulse Resp BP Pulse Ox 97.5 F L 64 18 120/67 96 11/20/17 08:18 11/20/17 08:18 11/20/17 08:18 11/20/17 08:18 11/20/17 08:18 Intake and Output: 11/20/17 11/20/17 06:59 18:59 Intake Total 480 Output Total 0 Balance 480 - Medications Medications: Current Medications Acetaminophen (Tylenol 325mg Tab) 650 mg PO Q4H PRN PRN Reason: Fever >100.4 F Last Admin: 11/12/17 21:32 Dose: 650 mg Acetaminophen (Tylenol 650 Mg Supp) 650 mg RC Q6H PRN PRN Reason: Fever >100.4 F Last Admin: 11/15/17 06:18 Dose: 650 mg Allopurinol (Zyloprim) 300 mg PO DAILY [facility] Last Admin: 11/19/17 09:36 Dose: 300 mg Docusate Sodium (Colace Liquid) 100 mg PO TID [facility] Last Admin: 11/19/17 18:58 Dose: 100 mg Ferrous Gluconate (Fergon) 324 mg PO TID [facility] Last Admin: 11/19/17 19:00 Dose: 324 mg Heparin Sodium (Porcine) (Heparin) 2,000 units IVP TTS [facility] PRN Reason: Protocol Last Admin: 11/17/17 19:31 Dose: Not Given Heparin Sodium (Porcine) (Heparin) 2,200 units ICA TUTHSA [facility] Last Admin: 11/17/17 19:32 Dose: Not Given Heparin Sodium (Porcine) (Heparin) 2,400 units ICV [facility] Last Admin: 11/17/17 19:32 Dose: Not Given Meropenem 250 mg/ Sodium (Chloride) 100 mls @ 100 mls/hr IVPB Q12H [facility] PRN Reason: Protocol Stop: 11/22/17 20:16 Last Admin: 11/20/17 08:09 Dose: Not Given Metoprolol Tartrate (Lopressor) 100 mg PO Q12 [facility] Last Admin: 11/19/17 21:24 Dose: 100 mg Non-Formulary Medication (Dolutegravir Sodium [Tivicay]) 50 mg PO DAILY [facility] Last Admin: 11/19/17 09:34 Dose: Not Given Nystatin (Nystop Topical Powder) 0 gm TOP BID [facility] Stop: 11/20/17 13:01 Last Admin: 11/19/17 19:00 Dose: 1 applic Ondansetron HCl (Zofran Inj) 4 mg IVP Q4H PRN PRN Reason: Nausea/Vomiting Last Admin: 11/13/17 06:31 Dose: 4 mg Ondansetron HCl (Zofran Tab) 4 mg PO Q4 PRN PRN Reason: Nausea/Vomiting Last Admin: 11/10/17 11:45 Dose: 4 mg Pantoprazole Sodium (Protonix Inj) 40 mg IVP Q12 [facility] Last Admin: 11/19/17 21:23 Dose: 40 mg Sevelamer HCl (Renagel) 1,600 mg PO TID [facility] Last Admin: 11/19/17 19:00 Dose: 1,600 mg Tramadol HCl (Ultram) 50 mg PO TID PRN PRN Reason: Pain, Mild (1-3) Last Admin: 11/19/17 23:16 Dose: 50 mg Vitamin B Complex/Vit C/Folic Acid (Nephro-Christel) 1 tab PO DAILY [facility] Last Admin: 11/19/17 09:33 Dose: 1 tab - Labs Labs: 11/20/17 08:50 11/20/17 08:50 PT 13.5 SECONDS (9.4-12.5) H 11/11/17 09:30 INR 1.17 (0.93-1.08) H 11/11/17 09:30 APTT 34.4 Seconds (25.1-36.5) 11/11/17 09:30 - Constitutional Appears: Well, No Acute Distress - Head Exam Head Exam: ATRAUMATIC, NORMOCEPHALIC - Eye Exam Eye Exam: Normal appearance - ENT Exam ENT Exam: Mucous Membranes Moist, Normal Exam - Neck Exam Neck Exam: Normal Inspection - Respiratory Exam Respiratory Exam: Clear to Ausculation Bilateral, NORMAL BREATHING PATTERN. absent: Rales, Rhonchi, Wheezes, Respiratory Distress - Cardiovascular Exam Cardiovascular Exam: REGULAR RHYTHM, +S1, +S2 - GI/Abdominal Exam GI & Abdominal Exam: Soft, Normal Bowel Sounds. absent: Guarding, Rigid, Tenderness, Organomegaly Additional comments: midline incision intact, no induration or drainage i - Extremities Exam Extremities Exam: absent: Joint Swelling, Pedal Edema - Neurological Exam Neurological Exam: Alert, Awake, Oriented x3 - Psychiatric Exam Psychiatric exam: Normal Affect, Normal Mood - Skin Skin Exam: Dry, Intact, Normal Color, Warm Assessment and Plan - Assessment and Plan (Free Text) Assessment: This is a 72M w. pmh of ESRD on HD, HTN, prostate CA, HIV on HAART, pyelonephritis, COPD, DM, gout, and PVD presents to ED for pus in his urine and suprapubic tenderness. S/P Ex lap with appendectomy and adhesion lysis ESRD on HD HIV PVD s/p bilateral BKA small bowel obstruction, s/p surgical intervention with OTF pelvic fluid collection -s/p aspiration POD#1 Plan: - Diet as tolerated - Follow up surgical recommendations - Continue with antibiotic therapy - fluid culture pending - No planned GI intervention - will sign off will D/W Dr. Leonardo <Finesse Leonardo - Last Filed: 11/20/17 19:34> Objective - Vital Signs/Intake and Output Vital Signs (last 24 hours): Temp Pulse Resp BP Pulse Ox 97.5 F L 64 18 120/67 96 11/20/17 08:18 11/20/17 08:18 11/20/17 08:18 11/20/17 08:18 11/20/17 08:18 Intake and Output: 11/20/17 11/21/17 18:59 06:59 Intake Total 760 Output Total 1 Balance 759 - Medications Medications: Current Medications Acetaminophen (Tylenol 325mg Tab) 650 mg PO Q4H PRN PRN Reason: Fever >100.4 F Last Admin: 11/12/17 21:32 Dose: 650 mg Acetaminophen (Tylenol 650 Mg Supp) 650 mg RC Q6H PRN PRN Reason: Fever >100.4 F Last Admin: 11/15/17 06:18 Dose: 650 mg Allopurinol (Zyloprim) 300 mg PO DAILY [facility] Last Admin: 11/20/17 11:37 Dose: Not Given Docusate Sodium (Colace Liquid) 100 mg PO TID [facility] Last Admin: 11/20/17 17:09 Dose: 100 mg Ferrous Gluconate (Fergon) 324 mg PO TID [facility] Last Admin: 11/20/17 17:09 Dose: 324 mg Heparin Sodium (Porcine) (Heparin) 2,000 units IVP TTS [facility] PRN Reason: Protocol Last Admin: 11/20/17 11:34 Dose: Not Given Heparin Sodium (Porcine) (Heparin) 2,200 units ICA [facility] Last Admin: 11/20/17 11:55 Dose: 2,200 units Heparin Sodium (Porcine) (Heparin) 2,400 [facility] Last Admin: 11/20/17 11:55 Dose: 2,400 units Meropenem 250 mg/ Sodium (Chloride) 100 mls @ 100 mls/hr IVPB Q12H [facility] PRN Reason: Protocol Stop: 11/22/17 20:16 Last Admin: 11/20/17 08:09 Dose: Not Given Metoprolol Tartrate (Lopressor) 100 mg PO Q12 [facility] Last Admin: 11/20/17 11:34 Dose: Not Given Non-Formulary Medication (Dolutegravir Sodium [Tivicay]) 50 mg PO DAILY [facility] Last Admin: 11/20/17 11:33 Dose: Not Given Ondansetron HCl (Zofran Inj) 4 mg IVP Q4H PRN PRN Reason: Nausea/Vomiting Last Admin: 11/13/17 06:31 Dose: 4 mg Ondansetron HCl (Zofran Tab) 4 mg PO Q4 PRN PRN Reason: Nausea/Vomiting Last Admin: 11/10/17 11:45 Dose: 4 mg Pantoprazole Sodium (Protonix Inj) 40 mg IVP Q12 [facility] Last Admin: 11/20/17 11:36 Dose: Not Given Sevelamer HCl (Renagel) 1,600 mg PO TID [facility] Last Admin: 11/20/17 17:09 Dose: 1,600 mg Tramadol HCl (Ultram) 50 mg PO TID PRN PRN Reason: Pain, Mild (1-3) Last Admin: 11/20/17 13:38 Dose: 50 mg Vitamin B Complex/Vit C/Folic Acid (Nephro-Christel) 1 tab PO DAILY [facility] Last Admin: 11/20/17 11:35 Dose: Not Given - Labs Labs: 11/20/17 08:50 11/20/17 08:50 PT 13.5 SECONDS (9.4-12.5) H 11/11/17 09:30 INR 1.17 (0.93-1.08) H 11/11/17 09:30 APTT 34.4 Seconds (25.1-36.5) 11/11/17 09:30 Attending/Attestation - Attestation I have personally seen and examined this patient.: Yes I have fully participated in the care of the patient.: Yes I have reviewed all pertinent clinical information, including history, physical exam and plan: Yes Notes (Text): 11/20/17 19:33 72 year old male with h/o ESRD on HD, HIV, Prostate Ca, COPD, DM, Gout, PAD a/w SBO s/p OTF and drainage of post op fluid collection. Persistent abdominal pain around incision. No n/v. Moving bowels. No bleeding. Tolerating diet. Pain control as needed. Bowel regimen. Will sign off.
[2017-11-20] MEDS: Non Formulary Medication (Dolutegravir Sodium [Tivicay] 50 MG) PO SCH (11:33)
[2017-11-20] MEDS: Nystatin 100,000 Units/gm Topical Pow(15 gm) TOP SCH (11:35)
[2017-11-20] MEDS: Multivitamin Vitamin B Complex (Nephro-Vite) Tab PO SCH (11:35)
[2017-11-20] MEDS: Enoxaparin 30 mg Syringe SC SCH (11:35)
--- NOTE | 2017-11-20 12:41 | CP.PCM.PN ---
Subjective - Date & Time of Evaluation Date of Evaluation: 11/20/17 Time of Evaluation: 09:15 - Subjective Subjective: No fevers, not in distress, had CT aspiration done yesterday, no diarrhea. Objective - Vital Signs/Intake and Output Vital Signs (last 24 hours): Temp Pulse Resp BP Pulse Ox 97.5 F L 64 18 120/67 96 11/20/17 08:18 11/20/17 08:18 11/20/17 08:18 11/20/17 08:18 11/20/17 08:18 Intake and Output: 11/20/17 11/20/17 06:59 18:59 Intake Total 480 Output Total 0 Balance 480 - Medications Medications: Current Medications Acetaminophen (Tylenol 325mg Tab) 650 mg PO Q4H PRN PRN Reason: Fever >100.4 F Last Admin: 11/12/17 21:32 Dose: 650 mg Acetaminophen (Tylenol 650 Mg Supp) 650 mg RC Q6H PRN PRN Reason: Fever >100.4 F Last Admin: 11/15/17 06:18 Dose: 650 mg Allopurinol (Zyloprim) 300 mg PO DAILY [facility] Last Admin: 11/19/17 09:36 Dose: 300 mg Docusate Sodium (Colace Liquid) 100 mg PO TID [facility] Last Admin: 11/19/17 18:58 Dose: 100 mg Ferrous Gluconate (Fergon) 324 mg PO TID [facility] Last Admin: 11/19/17 19:00 Dose: 324 mg Heparin Sodium (Porcine) (Heparin) 2,000 units IVP TTS [facility] PRN Reason: Protocol Last Admin: 11/17/17 19:31 Dose: Not Given Heparin Sodium (Porcine) (Heparin) 2,[facility] Last Admin: 11/17/17 19:32 Dose: Not Given Heparin Sodium (Porcine) (Heparin) 2,400 units [facility] Last Admin: 11/17/17 19:32 Dose: Not Given Meropenem 250 mg/ Sodium (Chloride) 100 mls @ 100 mls/hr IVPB Q12H [facility] PRN Reason: Protocol Stop: 11/22/17 20:16 Last Admin: 11/20/17 08:09 Dose: Not Given Metoprolol Tartrate (Lopressor) 100 mg PO Q12 [facility] Last Admin: 04/02/18 21:24 Dose: 100 mg Non-Formulary Medication (Dolutegravir Sodium [Tivicay]) 50 mg PO DAILY [facility] Last Admin: 11/19/17 09:34 Dose: Not Given Nystatin (Nystop Topical Powder) 0 gm TOP BID [facility] Stop: 11/20/17 13:01 Last Admin: 11/19/17 19:00 Dose: 1 applic Ondansetron HCl (Zofran Inj) 4 mg IVP Q4H PRN PRN Reason: Nausea/Vomiting Last Admin: 11/13/17 06:31 Dose: 4 mg Ondansetron HCl (Zofran Tab) 4 mg PO Q4 PRN PRN Reason: Nausea/Vomiting Last Admin: 11/10/17 11:45 Dose: 4 mg Pantoprazole Sodium (Protonix Inj) 40 mg IVP Q12 [facility] Last Admin: 11/19/17 21:23 Dose: 40 mg Sevelamer HCl (Renagel) 1,600 mg PO TID [facility] Last Admin: 11/19/17 19:00 Dose: 1,600 mg Tramadol HCl (Ultram) 50 mg PO TID PRN PRN Reason: Pain, Mild (1-3) Last Admin: 11/19/17 23:16 Dose: 50 mg Vitamin B Complex/Vit C/Folic Acid (Nephro-Christel) 1 tab PO DAILY [facility] Last Admin: 11/19/17 09:33 Dose: 1 tab - Labs Labs: 11/20/17 08:50 11/20/17 08:50 PT 13.5 SECONDS (9.4-12.5) H 11/11/17 09:30 INR 1.17 (0.93-1.08) H 11/11/17 09:30 APTT 34.4 Seconds (25.1-36.5) 11/11/17 09:30 - Constitutional Appears: Chronically Ill - Head Exam Head Exam: NORMAL INSPECTION - Neck Exam Neck Exam: absent: Meningismus - Respiratory Exam Respiratory Exam: Decreased Breath Sounds - Cardiovascular Exam Cardiovascular Exam: +S1, +S2 - GI/Abdominal Exam GI & Abdominal Exam: Soft. absent: Tenderness - Extremities Exam Additional comments: right AKA stump with dressings in place Assessment and Plan - Assessment and Plan (Free Text) Plan: Assessment small bowel obstruction S/P ex-lap, adhesiolysis, repair of umbilical hernia and appendectomy, now with pelvic fluid collection R/O pelvic abscess S/P CT- guided drainage S/P UTI severe PAD S/P angioplasty of the left tibial artery S/P right AKA UTI with MRSA and Strep viridans systemic viral illness with Influenza history of left foot 3rd digit chronic osteomyelitis S/P amputation and debridement right sided nephrolithiasis history of severe sepsis with acute on chronic renal failure probably due to pyelonephritis with E. coli bacteremia history of C. diff. associated diarrhea Charcot foot, left history of left 2nd toe dry gangrene Chronic renal failure on hemodialysis HTN prostate CA HIV (patient goes to the [place] with last CD4 count here at [facility] [place] [place] 03/2016 349 and virus load < 1.3 log) history of osteomyelitis of left first toe S/P amputation (2015) gout history of left foot ulcers Plan continue Merrem and will follow up plan for cultures from the pelvic fluid collection continue antiretroviral therapy (lamivudine, abacavir on formulary but dolutegravir should be taken by patient from his home supply) overall prognosis is poor
--- NOTE | 2017-11-20 16:23 | PN ---
DATE: 11/20/2017 CARDIOLOGY FOLLOWUP SUBJECTIVE: The patient is in bed without dyspnea. PHYSICAL EXAMINATION: VITAL SIGNS: Blood pressure is 120/67, heart rates in the 60s. NECK: Negative JVD. LUNGS: Decreased breath sounds. HEART: Reveals S1, S2. EXTREMITIES: Without change. LABORATORY DATA: Hemoglobin is 9.1. Chemistries: BUN and creatinine are 25 and 5.2. IMPRESSION: 1. End-stage renal disease. 2. Status post laparotomy. 3. Hypertension. 4. History of cerebrovascular accident. 5. History of human immunodeficiency virus in the past. PLAN: Given these findings, the patient is hemodynamically stable. No further cardiac workup is indicated at this time. Emmanuel Weller MD
--- NOTE | 2017-11-20 16:34 | CP.PCM.PN ---
Subjective - Date & Time of Evaluation Date of Evaluation: 11/20/17 Time of Evaluation: 16:33 - Subjective Subjective: Nephrology Consultation Note: Assessment:stable High grade SBO s/p surgery, appendectomy UTI, Hyperkalemia hx of prostate CA Hypertensive Chronic Kidney Disease (I12.9) ESRD on HD via permacath (TTS) Anemia (D64.9), HTN (I12.9) HIV on HAART, PVD s/p angioplasty s/p Rt AKA Plan plan for HD today as per TTS. nephrovite 1 tab/day. aransep 60 mcg weekly for anemia 11/15/17. PRBC as needed . last Hb 9.1 hold phosphorus binders while pt NPO Hypertension control with meds as ordered. Patient was on RAAS edyta as losartan>>held for now due to BP on low side. hold norvasc ID, , Surgery and GI following Dose meds/antibiotics for ESRD status. Avoid fleets enema/magnesium based laxatives. Avoid nephrotoxins/NSAIDs/ iodinated contrast (unless needed emergently) Further work up/management as per primary team. Thanks for allowing me to participate in care of your patient. Will follow patient with you. Please call if any Qs. Dr Yandel Arechiga Office: [phone] reason for consult: ESRD, HTN HPI: Pt is a 72 y/o M with hx of HIV on HAART, PVD s/p angioplasty, Rt AKA, hypertension (10-15 years), ESRD on HD (via permacath) TTS @ [facility] [place], left foot toe amputations, prostate CA presented with groin pain and cloudy urine. being managed for UTI renal consult for ESRD, HTN management pt doesn't feel well. says everything is bothering him as lower ext pain, groin pain. says alcala catheter was removed 2 weeks ago ROS: denies CP/SOB. all other neg except as in HPI. improved abdomen pain. s/p CT guided aspiration 11/19/17 feels same with pain in heels, ankle Physical Examination: General Appearance: comfortable, in no acute respiratory distress, facial muscles wasted, ill appearing Vitals reviewed and noted as below Head; Atraumatic, normocephalic ENT: no ulcers no thrush. Tongue is midline dry. Oropharynx: no rash or ulcers. EYES: Pupils are equal, round and reactive to light accommodation. Eye muscles and extraocular movement intact. Sclera is anicteric. Neck; supple no lymphadenopathy, no thyromegaly or bruit Lungs: Normal respiratory rate/effort. Breath sounds bilateral clear Heart: Normal rate. s1s2 normal. No rub or gallop. Extremities: no edema. No varicose veins. s/p Rt AKA Neurological: Patient is alert oriented x 3 follow commands,. no focal deficit Skin: Warm and dry. Normal turgor. Palpitation: Normal elasticity for age. Abdomen: Abdomen is soft. Bowel sounds decreased. s/p surgery, ashely + Psych: limited insight. flat affect MSK: Digits and nails normal, left foot toe amputations in past. Rt AKA. : kidney not palpable. Access: permacath and maturing left AVF Labs/imaging/EKG reviewed. Past medical history, past surgical history, family history, social history, allergy reviewed and noted as below Family hx: sister was on dialysis. Rest non-contributory Objective - Vital Signs/Intake and Output Vital Signs (last 24 hours): Temp Pulse Resp BP Pulse Ox 97.5 F L 64 18 120/67 96 11/20/17 08:18 11/20/17 08:18 11/20/17 08:18 11/20/17 08:18 11/20/17 08:18 Intake and Output: 11/20/17 11/20/17 06:59 18:59 Intake Total 480 760 Output Total 0 1 Balance 480 759 - Medications Medications: Current Medications Acetaminophen (Tylenol 325mg Tab) 650 mg PO Q4H PRN PRN Reason: Fever >100.4 F Last Admin: 11/12/17 21:32 Dose: 650 mg Acetaminophen (Tylenol 650 Mg Supp) 650 mg RC Q6H PRN PRN Reason: Fever >100.4 F Last Admin: 11/15/17 06:18 Dose: 650 mg Allopurinol (Zyloprim) 300 mg PO DAILY [facility] Last Admin: 11/20/17 11:37 Dose: Not Given Docusate Sodium (Colace Liquid) 100 mg PO TID [facility] Last Admin: 11/20/17 13:38 Dose: 100 mg Ferrous Gluconate (Fergon) 324 mg PO TID [facility] Last Admin: 11/20/17 13:40 Dose: 324 mg Heparin Sodium (Porcine) (Heparin) 2,000 units IVP TTS [facility] PRN Reason: Protocol Last Admin: 11/20/17 11:34 Dose: Not Given Heparin Sodium (Porcine) (Heparin) 2,200 units [facility] Last Admin: 11/20/17 11:55 Dose: 2,200 units Heparin Sodium (Porcine) (Heparin) 2,400 units [facility] Last Admin: 11/20/17 11:55 Dose: 2,400 units Meropenem 250 mg/ Sodium (Chloride) 100 mls @ 100 mls/hr IVPB Q12H [facility] PRN Reason: Protocol Stop: 11/22/17 20:16 Last Admin: 11/20/17 08:09 Dose: Not Given Metoprolol Tartrate (Lopressor) 100 mg PO Q12 [facility] Last Admin: 11/20/17 11:34 Dose: Not Given Non-Formulary Medication (Dolutegravir Sodium [Tivicay]) 50 mg PO DAILY [facility] Last Admin: 11/20/17 11:33 Dose: Not Given Ondansetron HCl (Zofran Inj) 4 mg IVP Q4H PRN PRN Reason: Nausea/Vomiting Last Admin: 11/13/17 06:31 Dose: 4 mg Ondansetron HCl (Zofran Tab) 4 mg PO Q4 PRN PRN Reason: Nausea/Vomiting Last Admin: 11/10/17 11:45 Dose: 4 mg Pantoprazole Sodium (Protonix Inj) 40 mg IVP Q12 [facility] Last Admin: 11/20/17 11:36 Dose: Not Given Sevelamer HCl (Renagel) 1,600 mg PO TID [facility] Last Admin: 11/20/17 13:40 Dose: 1,600 mg Tramadol HCl (Ultram) 50 mg PO TID PRN PRN Reason: Pain, Mild (1-3) Last Admin: 11/20/17 13:38 Dose: 50 mg Vitamin B Complex/Vit C/Folic Acid (Nephro-Christel) 1 tab PO DAILY [facility] Last Admin: 11/20/17 11:35 Dose: Not Given - Labs Labs: 11/20/17 08:50 11/20/17 08:50 PT 13.5 SECONDS (9.4-12.5) H 11/11/17 09:30 INR 1.17 (0.93-1.08) H 11/11/17 09:30 APTT 34.4 Seconds (25.1-36.5) 11/11/17 09:30
[2017-11-21 08:26] VITALS: BP 127/62; PULSE 77; RESP 20; TEMP 98.1; O2SAT 95
[2017-11-21] MEDS: Multivitamin Vitamin B Complex (Nephro-Vite) Tab PO SCH (10:14)
[2017-11-21] MEDS: Non Formulary Medication (Dolutegravir Sodium [Tivicay] 50 MG) PO SCH (10:16)
[2017-11-21] MEDS ORDERED: Menthol/Methyl Salicylate Ointment(1 oz) TOP PRN (11:13)
[2017-11-21] MEDS ORDERED: Menthol/Methyl Salicylate Ointment(1 oz) TOP SCH (12:00)
--- NOTE | 2017-11-21 12:38 | CP.PCM.PN ---
Subjective - Date & Time of Evaluation Date of Evaluation: 11/21/17 Time of Evaluation: 12:37 - Subjective Subjective: Nephrology Consultation Note: Assessment:stable High grade SBO s/p surgery, appendectomy: imporved UTI, Hyperkalemia: resolved hx of prostate CA Hypertensive Chronic Kidney Disease (I12.9) ESRD on HD via permacath (TTS) Anemia (D64.9), HTN (I12.9) HIV on HAART, PVD s/p angioplasty s/p Rt AKA Plan plan for HD tomorrow as per TTS. nephrovite 1 tab/day. aransep 60 mcg weekly for anemia 11/15/17. PRBC as needed . last Hb 9.1 resume phos binders Hypertension control with meds as ordered. Patient was on RAAS edyta as losartan>>held for now due to BP on low side. hold norvasc ID, , Surgery and GI following Dose meds/antibiotics for ESRD status. Avoid fleets enema/magnesium based laxatives. Avoid nephrotoxins/NSAIDs/ iodinated contrast (unless needed emergently) Further work up/management as per primary team. Patient plan for discharge to rehabilitation today. Stable from renal perspective. Discussed the case management social worker and sr. social media & mobile manager. Patient is scheduled to go back to his original dialysis unit tomorrow for outpatient HD as TTS schedule Thanks for allowing me to participate in care of your patient. Please call if any Qs. Dr Yandel Arechiga Office: [phone] reason for consult: ESRD, HTN HPI: Pt is a 72 y/o M with hx of HIV on HAART, PVD s/p angioplasty, Rt AKA, hypertension (10-15 years), [place]D [place]via permacath[place] [facility] [place]put[place], prostate CA presented with groin pain and cloudy urine. being managed for UTI renal consult for ESRD, HTN management pt doesn't feel well. says everything is bothering him as lower ext pain, groin pain. says alcala catheter was removed 2 weeks ago ROS: denies CP/SOB. all other neg except as in HPI. improved abdomen pain. s/p CT guided aspiration 11/19/17 feels same with pain in heels, ankle Physical Examination: General Appearance: comfortable, in no acute respiratory distress, facial muscles wasted, ill appearing Vitals reviewed and noted as below Head; Atraumatic, normocephalic ENT: no ulcers no thrush. Tongue is midline dry. Oropharynx: no rash or ulcers. EYES: Pupils are equal, round and reactive to light accommodation. Eye muscles and extraocular movement intact. Sclera is anicteric. Neck; supple no lymphadenopathy, no thyromegaly or bruit Lungs: Normal respiratory rate/effort. Breath sounds bilateral clear Heart: Normal rate. s1s2 normal. No rub or gallop. Extremities: no edema. No varicose veins. s/p Rt AKA Neurological: Patient is alert oriented x 3 follow commands,. no focal deficit Skin: Warm and dry. Normal turgor. Palpitation: Normal elasticity for age. Abdomen: Abdomen is soft. Bowel sounds decreased. s/p surgery, ashely + Psych: limited insight. flat affect MSK: Digits and nails normal, left foot toe amputations in past. Rt AKA. : kidney not palpable. Access: permacath and maturing left AVF Labs/imaging/EKG reviewed. Past medical history, past surgical history, family history, social history, allergy reviewed and noted as below Family hx: sister was on dialysis. Rest non-contributory Objective - Vital Signs/Intake and Output Vital Signs (last 24 hours): Temp Pulse Resp BP Pulse Ox 98.1 F 77 20 127/62 95 11/21/17 08:25 11/21/17 10:15 11/21/17 08:25 11/21/17 10:15 11/21/17 08:25 Intake and Output: 11/21/17 11/21/17 06:59 18:59 Intake Total 1020 Balance 1020 - Medications Medications: Current Medications Acetaminophen (Tylenol 325mg Tab) 650 mg PO Q4H PRN PRN Reason: Fever >100.4 F Last Admin: 11/12/17 21:32 Dose: 650 mg Acetaminophen (Tylenol 650 Mg Supp) 650 mg RC Q6H PRN PRN Reason: Fever >100.4 F Last Admin: 11/15/17 06:18 Dose: 650 mg Allopurinol (Zyloprim) 300 mg PO DAILY [facility] Last Admin: 11/21/17 10:14 Dose: 300 mg Camphor/Menthol (Bengay) 0 gm TOP Q6 PRN PRN Reason: Pain, Mild (1-3) Docusate Sodium (Colace Liquid) 100 mg PO TID [facility] Last Admin: 11/21/17 10:14 Dose: 100 mg Ferrous Gluconate (Fergon) 324 mg PO TID [facility] Last Admin: 11/21/17 10:14 Dose: 324 mg Heparin Sodium (Porcine) (Heparin) 2,000 units IVP TTS [facility] PRN Reason: Protocol Last Admin: 11/20/17 11:34 Dose: Not Given Heparin Sodium (Porcine) (Heparin) 2,200 units [facility]CA [facility] Last Admin: 11/20/17 11:55 Dose: 2,200 units Heparin Sodium (Porcine) (Heparin) 2,400 units ICV [facility] Last Admin: 11/20/17 11:55 Dose: 2,400 units Meropenem 250 mg/ Sodium (Chloride) 100 mls @ 100 mls/hr IVPB Q12H [facility] PRN Reason: Protocol Stop: 11/22/17 20:16 Last Admin: 11/21/17 08:28 Dose: 100 mls/hr Metoprolol Tartrate (Lopressor) 100 mg PO Q12 [facility] Last Admin: 11/21/17 10:15 Dose: 100 mg Non-Formulary Medication (Dolutegravir Sodium [Tivicay]) 50 mg PO DAILY [facility] Last Admin: 11/21/17 10:16 Dose: Not Given Ondansetron HCl (Zofran Tab) 4 mg PO Q4 PRN PRN Reason: Nausea/Vomiting Last Admin: 11/10/17 11:45 Dose: 4 mg Pantoprazole Sodium (Protonix Inj) 40 mg IVP Q12 [facility] Last Admin: 11/21/17 10:15 Dose: 40 mg Sevelamer HCl (Renagel) 1,600 mg PO TID [facility] Last Admin: 11/21/17 10:14 Dose: 1,600 mg Tramadol HCl (Ultram) 50 mg PO TID PRN PRN Reason: Pain, Mild (1-3) Last Admin: 11/21/17 10:25 Dose: 50 mg Vitamin B Complex/Vit C/Folic Acid (Nephro-Christel) 1 tab PO DAILY [facility] Last Admin: 11/21/17 10:14 Dose: 1 tab - Labs Labs: 11/20/17 08:50 11/20/17 08:50 PT 13.5 SECONDS (9.4-12.5) H 11/11/17 09:30 INR 1.17 (0.93-1.08) H 11/11/17 09:30 APTT 34.4 Seconds (25.1-36.5) 11/11/17 09:30
--- NOTE | 2017-11-21 12:48 | PN ---
DATE: SUBJECTIVE: I saw him sitting up in bed. He is eating his breakfast. He is doing a lot better. He is much more alert. He is back to his baseline. He wants physical therapy. He is having some leg issues because he is starting to use the leg more now. He has the right AKA and his left foot bothers him when he stands on it, that will improve. We will get some cream for it. MEDICATIONS: He is on Colace, Tivicay, Fergon, heparin, Lopressor, Merrem, Nephro-Christel, Protonix, Renagel, Tylenol, Ultram, Zofran and Zyloprim. PHYSICAL EXAMINATION VITAL SIGNS: He has a 98.1 temp, 77 pulse, 127/62 blood pressure, 20 respiratory rate, 95% O2 sat on room air. HEENT: His head is atraumatic, normocephalic. HEART: Regular rate. LUNGS: Clear to auscultation. ABDOMEN: Soft. He has a right AKA. LABORATORY DATA: He has a 9.4 white count, 9.1 hemoglobin, 27.9 hematocrit, 269_ platelets. He has a 127 sodium, 4.3 potassium, BUN 25, creatinine 5.2 on dialysis. Last blood sugar was 89. AST is 40, ALT is 27, alkaline phosphatase 87. PLAN: The plan is to get him to subacute rehab or home with PT and Services. Case Management is working on that. When I get that arranged, he will be discharged. He is on Colace, one of his medications. Overall, he is improved. I would like to see him in discharge once they can arrange a discharge planning. Parag Brownlee DO
--- NOTE | 2017-11-21 16:04 | CP.PCM.PN ---
Subjective - Date & Time of Evaluation Date of Evaluation: 11/21/17 Time of Evaluation: 11:05 - Subjective Subjective: Comfortable, abdominal pain is improved, no fevers. Objective - Vital Signs/Intake and Output Vital Signs (last 24 hours): Temp Pulse Resp BP Pulse Ox 98.1 F 77 20 127/62 95 11/21/17 08:25 11/21/17 08:25 11/21/17 08:25 11/21/17 08:25 11/21/17 08:25 Intake and Output: 11/21/17 11/21/17 06:59 18:59 Intake Total 1020 Balance 1020 - Medications Medications: Current Medications Acetaminophen (Tylenol 325mg Tab) 650 mg PO Q4H PRN PRN Reason: Fever >100.4 F Last Admin: 11/12/17 21:32 Dose: 650 mg Acetaminophen (Tylenol 650 Mg Supp) 650 mg RC Q6H PRN PRN Reason: Fever >100.4 F Last Admin: 11/15/17 06:18 Dose: 650 mg Allopurinol (Zyloprim) 300 mg PO DAILY [facility] Last Admin: 11/20/17 11:37 Dose: Not Given Docusate Sodium (Colace Liquid) 100 mg PO TID [facility] Last Admin: 11/20/17 17:09 Dose: 100 mg Ferrous Gluconate (Fergon) 324 mg PO TID [facility] Last Admin: 11/20/17 17:09 Dose: 324 mg Heparin Sodium (Porcine) (Heparin) 2,000 units IVP TTS [facility] PRN Reason: Protocol Last Admin: 11/20/17 11:34 Dose: Not Given Heparin Sodium (Porcine) (Heparin) 2,200 units [facility] Last Admin: 11/20/17 11:55 Dose: 2,200 units Heparin Sodium (Porcine) (Heparin) 2,400 units ICV [facility] Last Admin: 11/20/17 11:55 Dose: 2,400 units Meropenem 250 mg/ Sodium (Chloride) 100 mls @ 100 mls/hr IVPB Q12H [facility] PRN Reason: Protocol Stop: 11/22/17 20:16 Last Admin: 11/21/17 08:28 Dose: 100 mls/hr Metoprolol Tartrate (Lopressor) 100 mg PO Q12 [facility] Last Admin: 11/20/17 21:21 Dose: 100 mg Non-Formulary Medication (Dolutegravir Sodium [Tivicay]) 50 mg PO DAILY [facility] Last Admin: 11/20/17 11:33 Dose: Not Given Ondansetron HCl (Zofran Tab) 4 mg PO Q4 PRN PRN Reason: Nausea/Vomiting Last Admin: 11/10/17 11:45 Dose: 4 mg Pantoprazole Sodium (Protonix Inj) 40 mg IVP Q12 [facility] Last Admin: 11/20/17 21:14 Dose: 40 mg Sevelamer HCl (Renagel) 1,600 mg PO TID [facility] Last Admin: 11/20/17 17:09 Dose: 1,600 mg Tramadol HCl (Ultram) 50 mg PO TID PRN PRN Reason: Pain, Mild (1-3) Last Admin: 11/20/17 21:25 Dose: 50 mg Vitamin B Complex/Vit C/Folic Acid (Nephro-Christel) 1 tab PO DAILY [facility] Last Admin: 11/20/17 11:35 Dose: Not Given - Labs Labs: 11/20/17 08:50 11/20/17 08:50 PT 13.5 SECONDS (9.4-12.5) H 11/11/17 09:30 INR 1.17 (0.93-1.08) H 11/11/17 09:30 APTT 34.4 Seconds (25.1-36.5) 11/11/17 09:30 - Constitutional Appears: Cachectic, Chronically Ill - Head Exam Head Exam: NORMAL INSPECTION - ENT Exam ENT Exam: Mucous Membranes Moist - Neck Exam Neck Exam: absent: Meningismus - Respiratory Exam Respiratory Exam: Decreased Breath Sounds Additional comments: right anterior chest wall dialysis catheter in place - Cardiovascular Exam Cardiovascular Exam: +S1, +S2 - GI/Abdominal Exam GI & Abdominal Exam: Soft. absent: Tenderness Assessment and Plan - Assessment and Plan (Free Text) Plan: Assessment small bowel obstruction S/P ex-lap, adhesiolysis, repair of umbilical hernia and appendectomy POD #10, with sterile pelvic fluid collection less likely abscess S/P CT-guided drainage S/P UTI severe PAD S/P angioplasty of the left tibial artery S/P right AKA UTI with MRSA and Strep viridans systemic viral illness with Influenza history of left foot 3rd digit chronic osteomyelitis S/P amputation and debridement right sided nephrolithiasis history of severe sepsis with acute on chronic renal failure probably due to pyelonephritis with E. coli bacteremia history of C. diff. associated diarrhea Charcot foot, left history of left 2nd toe dry gangrene Chronic renal failure on hemodialysis HTN prostate CA HIV (patient goes to the [place] with [place] [facility] [place] and virus load < 1.3 log) history of osteomyelitis of left first toe S/P amputation (2015) gout history of left foot ulcers Plan on Merrem to complete 10-14 days from time of surgery (today is post-op day 10) ; cultures from the pelvic fluid collection are negative continue antiretroviral therapy (lamivudine, abacavir on formulary but dolutegravir should be taken by patient from his home supply) overall prognosis is poor
== END 2017-11-21 14:08 | DRG 853 ==
LOC: ED 16:26 → ERH 19:53 → 5RNO 22:49
PROVIDERS: ADMIT Family Medicine; ATTEND Family Medicine
PROC: 5A1D70Z Performance of Urinary Filtration, Intermittent, Less than 6 Hours Per Day (ICD-10-PCS; 2017-11-06)
PROC: 5A1D70Z Performance of Urinary Filtration, Intermittent, Less than 6 Hours Per Day (ICD-10-PCS; 2017-11-08)
PROC: 5A1D70Z Performance of Urinary Filtration, Intermittent, Less than 6 Hours Per Day (ICD-10-PCS; 2017-11-10)
PROC: 0WQF0ZZ Repair Abdominal Wall, Open Approach (ICD-10-PCS; principal; 2017-11-11 10:00)
PROC: 0DTJ0ZZ Resection of Appendix, Open Approach (ICD-10-PCS; 2017-11-11 10:00)
PROC: 5A1D70Z Performance of Urinary Filtration, Intermittent, Less than 6 Hours Per Day (ICD-10-PCS; 2017-11-13)
PROC: 5A1D70Z Performance of Urinary Filtration, Intermittent, Less than 6 Hours Per Day (ICD-10-PCS; 2017-11-15)
PROC: 5A1D70Z Performance of Urinary Filtration, Intermittent, Less than 6 Hours Per Day (ICD-10-PCS; 2017-11-17)
PROC: 5A1D70Z Performance of Urinary Filtration, Intermittent, Less than 6 Hours Per Day (ICD-10-PCS; 2017-11-19)
PROC: 0D9W3ZZ Drainage of Peritoneum, Percutaneous Approach (ICD-10-PCS; 2017-11-19)
PROC: BW2GZZZ Computerized Tomography (CT Scan) of Pelvic Region (ICD-10-PCS; 2017-11-19)
DX: A41.9 Sepsis, unspecified organism (principal); N18.6 End stage renal disease; K65.1 Peritoneal abscess; N17.9 Acute kidney failure, unspecified; K56.50 Intestinal adhesions [bands], unspecified as to partial versus complete obstruction; K56.7 Ileus, unspecified; I12.0 Hypertensive chronic kidney disease with stage 5 chronic kidney disease or end stage renal disease; N13.6 Pyonephrosis; N30.90 Cystitis, unspecified without hematuria; Z21 Asymptomatic human immunodeficiency virus [HIV] infection status; C61 Malignant neoplasm of prostate; K42.9 Umbilical hernia without obstruction or gangrene; L89.621 Pressure ulcer of left heel, stage 1; D64.9 Anemia, unspecified; E11.22 Type 2 diabetes mellitus with diabetic chronic kidney disease; E11.51 Type 2 diabetes mellitus with diabetic peripheral angiopathy without gangrene; E11.610 Type 2 diabetes mellitus with diabetic neuropathic arthropathy; M14.679 Charcot's joint, unspecified ankle and foot; M10.9 Gout, unspecified; K21.9 Gastro-esophageal reflux disease without esophagitis; J44.9 Chronic obstructive pulmonary disease, unspecified; J11.1 Influenza due to unidentified influenza virus with other respiratory manifestations; E87.5 Hyperkalemia; Z74.01 Bed confinement status; Z79.899 Other long term (current) drug therapy; Z82.49 Family history of ischemic heart disease and other diseases of the circulatory system; Z85.46 Personal history of malignant neoplasm of prostate; Z86.73 Personal history of transient ischemic attack (TIA), and cerebral infarction without residual deficits; Z87.440 Personal history of urinary (tract) infections; R65.20 Severe sepsis without septic shock; Z87.442 Personal history of urinary calculi; Z89.412 Acquired absence of left great toe; Z89.511 Acquired absence of right leg below knee; Z89.512 Acquired absence of left leg below knee; Z89.611 Acquired absence of right leg above knee; Z89.612 Acquired absence of left leg above knee; Z99.2 Dependence on renal dialysis; Z91.013 Allergy to seafood; Z91.018 Allergy to other foods

== ENCOUNTER 2017-12-08 16:35 | Inpatient (IN) | payer MEDICARE ==
--- NOTE | 2017-12-08 17:01 | ED PDOC ---
Arrival/HPI - General Chief Complaint: Fever Time Seen by Provider: 12/08/17 16:40 Historian: Patient - History of Present Illness Narrative History of Present Illness (Text): you were treated in the ED today for hx of HIV, COPD, Vertigo, Diabetes, Prostate Cancer, Kidney failure on dialysis and were at dialysis today and found to have a fever and fast heart rate and sent to the ED for evaluation and otherwise without any nausea/vomiting/headache/dizziness/difficulty breathing/ chest pain/coughing/abdomen pain/numbness/tingling/loss of limb function/pain with urination. 12/08/17 16:58 12/08/17 16:58 Time/Duration: Prior to Arrival Symptom Onset: Gradual Symptom Course: Unchanged Quality: Other (no pain) Activities at Onset: Rest Context: Sitting Past Medical History - Provider Review Nursing Documentation Reviewed: Yes - Travel History Have you recently traveled outside [place] w/in the past 3 mons?: No - Infectious Disease Hx of Infectious Diseases: None - Tetanus Immunization Tetanus Immunization: Up to Date - Cardiac Hx Cardiac Disorders: Yes Hx Hypertension: Yes - Pulmonary Hx Chronic Obstructive Pulmonary Disease (COPD): Yes - Neurological Hx Vertigo: Yes - HEENT Hx HEENT Disorder: No - Renal Hx Renal Disorder: Yes - Endocrine/Metabolic Hx Diabetes Mellitus Type 2: Yes - Hematological/Oncological Hx Blood Transfusions: No Hx Blood Transfusion Reaction: No - Integumentary Hx Dermatological Disorder: Yes Hx Cellulitis: Yes Other/Comment: dry gangrene and osteomyelitis L foot - Musculoskeletal/Rheumatological Hx Falls: Yes - Gastrointestinal Hx Gastroesophageal Reflux: Yes - Genitourinary/Gynecological Hx Genitourinary Disorders: Yes Hx Prostate Cancer: Yes - Psychiatric Hx Psychophysiologic Disorder: No Hx Substance Use: No - Surgical History Hx Amputation: Yes (Right BKA) Other/Comment: Abd Sx - Anesthesia Hx Anesthesia Reactions: No Hx Malignant Hyperthermia: No Family/Social History - Physician Review Nursing Documentation Reviewed: Yes Family/Social History: No Known Family HX Smoking Status: Never Smoked Hx Alcohol Use: Yes Frequency of alcohol use: Socially Hx Substance Use: No Allergies/Home Meds Allergies/Adverse Reactions: Allergies banana Allergy (Verified 12/08/17 16:48) SWELLING shrimp Allergy (Verified 12/08/17 16:48) SWELLING Home Medications: Home Meds Medication Instructions Recorded Confirmed Abacavir [Ziagen] 300 mg PO DAILY 12/08/17 12/08/17 Allopurinol [Zyloprim] 100 mg PO DAILY 12/08/17 12/08/17 Cholecalciferol [Vitamin D 1000 IU] 1,000 units PO DAILY 12/08/17 12/08/17 Dolutegravir Sodium [Tivicay] 50 mg PO DAILY 12/08/17 12/08/17 Dolutegravir Sodium [Tivicay] 50 mg PO DAILY 12/08/17 12/08/17 Lamivudine [Epivir Hbv] 100 mg PO DAILY 12/08/17 12/08/17 Metoprolol Succinate [Toprol XL] 25 mg PO DAILY 12/08/17 12/08/17 Nifedipine [Procardia Xl] 60 mg PO DAILY 12/08/17 12/08/17 Sevelamer [Renagel] 800 mg PO TID 12/08/17 12/08/17 Tamsulosin [Flomax] 0.4 mg PO DAILY 12/08/17 12/08/17 Review of Systems - Review of Systems Constitutional: Fevers Eyes: Normal ENT: Normal Respiratory: Normal Cardiovascular: Normal Gastrointestinal: Normal Genitourinary Male: Normal Musculoskeletal: Normal Skin: Normal Neurological: Normal Endocrine: Normal Hemo/Lymphatic: Normal Psychiatric: Normal Physical Exam Vital Signs Reviewed: Yes Vital Signs Temp Pulse Resp BP Pulse Ox 12/08/17 19:33 98.4 F 104 H 18 119/67 12/08/17 18:05 98.4 F 12/08/17 16:48 103.0 F H 115 H 20 145/79 95 Temperature: Febrile Blood Pressure: Hypertensive Pulse: Tachycardic Respiratory Rate: Normal Appearance: Positive for: Ill-Appearing Pain Distress: None Mental Status: Positive for: Alert and Oriented X 3 - Systems Exam Head: Present: Atraumatic, Normocephalic Pupils: Present: PERRL Extroacular Muscles: Present: EOMI Conjunctiva: Present: Normal Ears: Present: Normal Mouth: Present: Moist Mucous Membranes Pharnyx: Present: Normal Nose (External): Present: Atraumatic Nose (Internal): Present: Normal Inspection Neck: Present: Normal Range of Motion Respiratory/Chest: Present: Clear to Auscultation, Good Air Exchange Cardiovascular: Present: Regular Rate and Rhythm Abdomen: No: Tenderness, Distention, Normal Bowel Sounds, Peritoneal Signs, Rebound, Guarding, McBurney's Point Tender, Rovsing's Sign Present, Hernias, Feeding Tubes, Ostomy Tubes, Mass/Organomegaly, Scars, Other Back: Present: Normal Inspection Upper Extremity: Present: Normal Inspection Lower Extremity: Present: Normal Inspection, Other (right lower bka stump without redness/fluctuanc/crepitus. otherwise warm/sensation+.) Neurological: Present: GCS=15, CN II-XII Intact, Speech Normal, Motor Func Grossly Intact Skin: Present: Warm, Normal Color Psychiatric: Present: Alert, Oriented x 3, Normal Insight, Normal Concentration Medical Decision Making ED Course and Treatment: you were treated in the ED today for hx of HIV, COPD, Vertigo, Diabetes, Prostate Cancer, Kidney failure on dialysis and were at dialysis today and found to have a fever and fast heart rate and sent to the ED for evaluation and otherwise without any nausea/vomiting/headache/dizziness/difficulty breathing/ chest pain/coughing/abdomen pain/numbness/tingling/loss of limb function/pain with urination. You were otherwise breathing easily, pink moist lips, talking easily, good strength/sensation, alert/oriented but fatigued, clean right lower extremity stump without redness and with warm/sensation, clear lungs, no abdomen tenderness, right upper chest port without any redness/drainage and with normal appearance of skin, fever temp 103, stable heart rate 115, stable breathing rate 20, excellent oxygen level 95% room air, elevated blood pressure 145/79 which we recommend repeat in 2-3 days primary care office to determine further treatment, you have blood tests infection count 17, stable blood level hemoglobin 9.2/platelets 349, lactic acid 2.0, sodium 137, potassium 3.1, troponin 0.23 and aspirin given, influenza negative, radiology chest xray mild vascular markings and blunting of both the costophrenic angles, ECG sinus tachycardia, tylenol, zosyn, gentle 250cc bolus due to ESRD, observation done in the ED with improvement. d/w Dr. Brownlee and will admit to telemetry for pneumonia/treatment and troponenemia which may have renal component or demand ischemia. Reassessment Condition: Re-examined, Improved - Lab Interpretations Lab Results: 12/08/17 17:00 12/08/17 18:00 Lab Results 12/08/17 18:00: Sodium 137, Chloride 97 L, Potassium 3.1 L, Carbon Dioxide 31, Anion Gap 12, BUN 33 H, Creatinine 5.6 H, Est GFR ( Amer) 12, Est GFR ( Non-Af Amer) 10, Random Glucose 85, Calcium 8.0 L, Magnesium 1.7, Total Bilirubin 0.5, AST 43, ALT 22, Alkaline Phosphatase 90, Lactate Dehydrogenase 498, Total Creatine Kinase 66, Troponin I 0.23 H* D, Total Protein 6.4, Albumin 2.7 L, Globulin 3.6, Albumin/Globulin Ratio 0.7 L 12/08/17 17:00: Influenza Typ A,B (EIA) Negative for flu a/b 12/08/17 17:00: pO2 29 L, VBG pH 7.40, VBG pCO2 55.0, VBG HCO3 34.1 H, VBG Total CO2 35.8 H, VBG O2 Sat (Calc) 61.3, VBG Base Excess 7.5 H, VBG Potassium 4.7, Sodium 135.0, Chloride 101.0, Glucose 84, Lactate 2.0, FiO2 21.0, Venous Blood Potassium 4.7 12/08/17 17:00: PT 17.7 H, INR 1.54 H, APTT 41.8 H 12/08/17 17:00: WBC 17.3 H D, RBC 3.04 L, Hgb 9.2 L, Hct 28.7 L, MCV 94.4, MCH 30.3, MCHC 32.1, RDW 19.6 H, Plt Count 349, MPV 9.8, Gran % 69.9 H, Lymph % ( Auto) 19.5 L, Crook % (Auto) 10.5 H, Eos % (Auto) 0.0 L, Baso % (Auto) 0.1, Gran # 12.06 H, Lymph # (Auto) 3.4, Crook # (Auto) 1.8 H, Eos # (Auto) 0.0, Baso # ( Auto) 0.02 I have reviewed the lab results: Yes - RAD Interpretation Radiology Orders: 12/08/17 16:55 CHEST PORTABLE [RAD] Stat [employer] Instructor: Radiologist - EKG Interpretation Interpreted by ED Physician: Yes (sinus tachycardia) Type: 12 lead EKG - Medication Orders Current Medication Orders: Discontinued Medications Acetaminophen (Tylenol 325mg Tab) 975 mg PO STAT STA Stop: 12/08/17 16:57 Last Admin: 12/08/17 17:05 Dose: 975 mg Re-Assess: MAR Pain/Vitals Document 12/08/17 18:05 SH (Rec: 12/08/17 19:35 [id number]) Pain Reassessment Is This A Pain ReAssessment? Yes Sleep Is patient sleeping during reassessment? No Presence of Pain Presence of Pain No Vitals Temperature (97.6 F-99.6 F) 98.4 F Temperature Source Oral Piperacillin Sod/Tazobactam Sod (Zosyn 4.5 Gm In Ns 100ml) 4.5 gm in 100 mls @ 200 mls/hr IVPB STAT STA PRN Reason: Protocol Stop: 12/08/17 17:33 Last Admin: 12/08/17 18:18 Dose: 200 mls/hr eMAR Start Stop Document 12/08/17 18:18 [facility] (Rec: 12/08/17 18:18 [facility] [id number]) Intravenous Solution Start Date 12/08/17 Start Time 18:18 End Date 12/08/17 End time 18:50 Total Infusion Time 32 Sodium Chloride (Sodium Chloride 0.9%) 250 mls @ 999 mls/hr IV .Q16M STA Stop: 12/08/17 18:36 Last Admin: 12/08/17 18:31 Dose: 999 mls/hr eMAR Start Stop Document 12/08/17 18:31 [facility] (Rec: 12/08/17 18:31 [facility] [id number]) Intravenous Solution Start Date 12/08/17 Start Time 18:31 Disposition/Present on Arrival - Present on Arrival Any Indicators Present on Arrival: No History of DVT/PE: No History of Uncontrolled Diabetes: No Urinary Catheter: No History of Decub. Ulcer: No History Surgical Site Infection Following: None - Disposition Have Diagnosis and Disposition been Completed?: Yes Diagnosis: Sepsis, ESRD (end stage renal disease) on dialysis, HIV (human immunodeficiency virus infection), Pneumonia, Troponin level elevated Disposition: HOSPITALIZED Disposition Time: 20:12 Patient Plan: Admission, Telemetry Condition: STABLE Discharge Instructions (ExitCare): Sepsis (ED), Human Immunodeficiency Virus and Acquired Immune Deficiency Syndrome (ED) Referrals: Parag Brownlee [Primary Care Provider] - Follow up with primary Forms: Cardia (Djiboutian)
[2017-12-08] MEDS ORDERED: Piperacill/Tazo 4.5gm in NS 4.5 GM/100 ML BAG IVPB STA (17:04)
[2017-12-08 17:49] LABS: VENOUS BLOOD GAS BASE EXCESS 7.5 mmol/L (0.0-2.0); VENOUS BLOOD GAS PO2 29 mm/Hg (30-55)
[2017-12-08 17:52] LABS: BASO # 0.02 K/mm3 (0.0-2.0); BASO % 0.1 % (0.0-3.0); GRAN # 12.06 (1.4-6.5); GRAN % 69.9 % (50.0-68.0); HEMOGLOBIN 9.2 g/dL (14.0-18.0); LYMPH # 3.4 (1.2-3.4); LYMPH % 19.5 % (22.0-35.0); MEAN CELL VOLUME 94.4 fl (80.0-105.0); MEAN CORPUSCULAR HEMOGLOBIN 30.3 pg (25.0-35.0); MEAN CORPUSCULAR HGB CONC 32.1 g/dl (31.0-37.0); MEAN PLATELET VOLUME 9.8 fl (7.0-11.0); MONO # 1.8 (0.1-0.6); MONO % 10.5 % (1.0-6.0); RBC 3.04 10^6/uL (3.5-6.1); RED CELL DISTRIBUTION WIDTH 19.6 % (11.5-14.5); WHITE BLOOD COUNT 17.3 10^3/ul (4.5-11.0)
--- NOTE | 2017-12-08 17:53 | RAD ---
HISTORY: 72yoM, ESRD, febrile. COMPARISON: Comparison chest 11/13/2017. FINDINGS: Re- demonstrated is in situ right IJ dialysis catheter with tips in the SVC/RA junction. LUNGS: There is mild left basilar atelectasis however developing lower lobe infiltrate could be excluded with followup radiographs. Suspect small bilateral effusions PLEURA: As above. No pneumothorax apparent. CARDIOVASCULAR: Heart size stable. OSSEOUS STRUCTURES: No significant abnormalities. VISUALIZED UPPER ABDOMEN: Normal. OTHER FINDINGS: None. IMPRESSION: Left lower lobe atelectasis however developing infiltrate not excluded. Suspect small bilateral effusions
[2017-12-08 18:00] LABS: INR 1.54 (0.93-1.08); PARTIAL THROMBOPLASTIN TIME 41.8 Seconds (25.1-36.5); PROTHROMBIN TIME 17.7 SECONDS (9.4-12.5)
[2017-12-08] MEDS ORDERED: Sodium Chloride 0.9% 250 ML IV STA (18:21)
[2017-12-08 18:36] LABS: ALB/GLOB RATIO 0.7 (1.1-1.8); ALBUMIN 2.7 g/dL (3.0-4.8)
[2017-12-08 20:13] LABS: TROPONIN I 0.23 ng/mL
[2017-12-08] MEDS ORDERED: Piperacillin/Tazobact 3.375 gm 100 ML IVPB SCH (20:15)
[2017-12-08] MEDS: Piperacillin/Tazobact 2.25gm 2.25 GM/100 ML BAG IVPB SCH (21:21)
[2017-12-08] MEDS: Albuterol-Ipratrop 3 mg / 0.5 (3 ml) UD IH SCH (21:24)
[2017-12-08 22:06] LABS: VENOUS BLOOD GAS BASE EXCESS 3.8 mmol/L (0.0-2.0); VENOUS BLOOD GAS PO2 46 mm/Hg (30-55); VENOUS BLOOD PH 7.35 (7.32-7.43)
[2017-12-09 02:45] LABS: VENOUS BLOOD GAS PO2 49 mm/Hg (30-55); VENOUS BLOOD PH 7.55 (7.32-7.43)
[2017-12-09] MEDS: Albuterol-Ipratrop 3 mg / 0.5 (3 ml) UD IH SCH (07:54)
[2017-12-09 07:56] LABS: HEMOGLOBIN 9.1 g/dL (14.0-18.0); MEAN CELL VOLUME 93.5 fl (80.0-105.0); MEAN CORPUSCULAR HEMOGLOBIN 29.5 pg (25.0-35.0); MEAN CORPUSCULAR HGB CONC 31.6 g/dl (31.0-37.0); MEAN PLATELET VOLUME 9.7 fl (7.0-11.0); RBC 3.08 10^6/uL (3.5-6.1); RED CELL DISTRIBUTION WIDTH 18.7 % (11.5-14.5)
[2017-12-09] MEDS: Piperacillin/Tazobact 2.25gm 2.25 GM/100 ML BAG IVPB SCH ×2 (08:09→13:26)
[2017-12-09 08:58] LABS: ALB/GLOB RATIO 0.7 (1.1-1.8); ALBUMIN 2.7 g/dL (3.0-4.8); CALCIUM 7.9 mg/dL (8.4-10.5); TROPONIN I 0.24 ng/mL
[2017-12-09] MEDS: Cholecalciferol 1,000 INTLU TAB PO SCH (10:19)
[2017-12-09] MEDS: Metoprolol Succinate 25 mg XL Tab PO SCH (10:19)
[2017-12-09] MEDS: NIFEdipine 60 mg ER Tab PO SCH (10:19)
[2017-12-09] MEDS: Dolutegravir Sodium [Tivicay] 50 mg (HOME MED) PO SCH (10:22)
[2017-12-09] MEDS: LAMIVUDINE 100 MG PO SCH (10:23)
[2017-12-09] MEDS: Insulin Reg-MEDIUM-Coverage SC SCH ×2 (13:28→17:35)
--- NOTE | 2017-12-09 14:06 | CP.PCM.CON ---
History of Present Illness - History of Present Illness History of Present Illness: Nephrology Consultation Note: Assessment: unstable Bacteremia Sepsis hx of prostate CA diarrhea Hypertensive Chronic Kidney Disease (I12.9) ESRD on HD via permacath (TTS) Anemia (D64.9), HTN (I12.9) HIV on HAART, PVD s/p angioplasty s/p Rt AKA Plan plan for HD tomorrow as missed HD yesterday. Lytes stable and volume status stable today nephrovite 1 tab/day aransep per outpt algorithym prbc as needed continue with home dose of phosphorus binders as ordered Hypertension control with meds as ordered. Recc UA and Culture - discussed w/ nursing given hx of UTI and suspect that as possible source v permacath if ua neg may need to consider abdominal source as well given recent surgery may need to image dose abx for ESRD CC: Fever reason for consult: ESRD, HTN HPI: Pt is a 72 y/o M with hx of HIV on HAART, PVD s/p angioplasty, Rt AKA, hypertension (10-15 years), ESRD on HD (via permacath) TTS @ [facility] [place], left foot toe amputations, prostate CA presented that was sent from the dialysis unit w/ fevers. He had a fever of 104 and was tachy at the dialysis unit prior to starting. Dialysis was not started. EMS was activated and sent to hospital. He was started on abx. His blood cultues are positive w/ GNR. renal consult for ESRD, HTN management pt feels week. ROS: denies CP/SOB. all other neg except as in HPI Physical Examination: General Appearance: uncomfortable, in no acute respiratory distress, facial muscles wasted Vitals reviewed and noted as below Head; Atraumatic, normocephalic ENT: no ulcers no thrush. Tongue is midline dry. Oropharynx: no rash or ulcers. EYES: Pupils are equal,. Eye muscles and extraocular movement intact. Sclera is anicteric. Neck; supple no lymphadenopathy, no thyromegaly or bruit Lungs: Normal respiratory rate/effort. Breath sounds bilateral clear Heart: Normal rate. s1s2 normal. No rub or gallop. Extremities: no edema. No varicose veins. s/p Rt AKA Neurological: Patient is alert oriented x 3 follow commands,. no focal deficit Skin: Warm and dry. Normal turgor. Palpitation: Normal elasticity for age. has inguinal erythematous rash Abdomen: Abdomen is soft. Bowel sounds +. There is no abdominal tenderness, no guarding/rigidity no organomegaly Psych: flat affect MSK: Digits and nails normal, left foot toe amputations in past. Rt AKA. : kidney or bladder not palpable. no inguinal hernia Access: permacath and maturing left AVF Labs/imaging/EKG reviewed. Past medical history, past surgical history, family history, social history, allergy reviewed and noted as below Family hx: sister was on dialysis. Rest non-contributory Past Patient History - Infectious Disease Hx of Infectious Diseases: None - Tetanus Immunizations Tetanus Immunization: Up to Date - Past Medical History & Family History Past Medical History?: Yes - Past Social History Smoking Status: Never Smoked - CARDIAC Hx Cardiac Disorders: Yes Hx Hypertension: Yes - PULMONARY Hx Chronic Obstructive Pulmonary Disease (COPD): Yes - NEUROLOGICAL Hx Neurological Disorder: Yes - HEENT Hx HEENT Problems: No - RENAL Hx Chronic Kidney Disease: Yes - ENDOCRINE/METABOLIC Hx Diabetes Mellitus Type 2: Yes - HEMATOLOGICAL/ONCOLOGICAL Hx Cancer: Yes (prostate) - INTEGUMENTARY Hx Dermatological Problems: Yes Other/Comment: dry gangrene and osteomyelitis L foot - MUSCULOSKELETAL/RHEUMATOLOGICAL Hx Falls: No - GASTROINTESTINAL Hx Gastroesophageal Reflux: Yes - GENITOURINARY/GYNECOLOGICAL Hx Genitourinary Disorders: Yes - PSYCHIATRIC Hx Psychophysiologic Disorder: No - SURGICAL HISTORY Hx Amputation: Yes (Right BKA) Other/Comment: Abd Sx - ANESTHESIA Hx Anesthesia Reactions: No Hx Malignant Hyperthermia: No Meds Allergies/Adverse Reactions: Allergies Allergy/AdvReac Type Severity Reaction Status Date / Time banana Allergy SWELLING Verified 12/08/17 16:48 shrimp Allergy SWELLING Verified 12/08/17 16:48 - Medications Medications: Current Medications Abacavir Sulfate (Ziagen) 300 mg PO DAILY COUNTS INCLUDE 234 BEDS AT THE [facility] PRN Reason: Protocol Last Admin: 12/09/17 10:25 Dose: 300 mg Acetaminophen (Tylenol 325mg Tab) 650 mg PO Q4H PRN PRN Reason: Fever >100.4 F Last Admin: 12/09/17 10:27 Dose: 650 mg Allopurinol (Zyloprim) 100 mg PO DAILY COUNTS INCLUDE 234 BEDS AT THE [facility] Last Admin: 12/09/17 10:25 Dose: 100 mg Cholecalciferol (Vitamin D) 1,000 intlu PO DAILY COUNTS INCLUDE 234 BEDS AT THE [facility] Last Admin: 12/09/17 10:19 Dose: 1,000 intlu Piperacillin Sod/Tazobactam Sod (Zosyn 2.25 Gm In 0.9% 100 Ml) 2.25 gm in 100 mls @ 200 mls/hr IVPB Q8H COUNTS INCLUDE 234 BEDS AT THE [facility] PRN Reason: Protocol Last Admin: 12/09/17 13:26 Dose: 200 mls/hr Insulin Human Regular (Humulin R Med) 0 units SC ACHS COUNTS INCLUDE 234 BEDS AT THE [facility] PRN Reason: Protocol Last Admin: 12/09/17 13:28 Dose: Not Given Metoprolol Succinate (Toprol Xl) 25 mg PO DAILY COUNTS INCLUDE 234 BEDS AT THE [facility] Last Admin: 12/09/17 10:19 Dose: 25 mg Nifedipine (Procardia Xl) 60 mg PO DAILY COUNTS INCLUDE 234 BEDS AT THE [facility] Last Admin: 12/09/17 10:19 Dose: 60 mg Dolutegravir Sodium [Tivicay] 50 Mg ( Home Med) 50 mg PO DAILY COUNTS INCLUDE 234 BEDS AT THE [facility] Last Admin: 12/09/17 10:22 Dose: Not Given Lamivudine [Epivir Hbv] 100 Mg ( Home Med) 100 mg PO DAILY COUNTS INCLUDE 234 BEDS AT THE [facility] Last Admin: 12/09/17 10:23 Dose: Not Given Sevelamer HCl (Renagel) 800 mg PO TID COUNTS INCLUDE 234 BEDS AT THE [facility] Last Admin: 12/09/17 10:19 Dose: 800 mg Tamsulosin HCl (Flomax) 0.4 mg PO DAILY COUNTS INCLUDE 234 BEDS AT THE [facility] Last Admin: 12/09/17 10:19 Dose: 0.4 mg Results - Vital Signs Recent Vital Signs: Last Vital Signs Temp 100.2 F H 12/09/17 12:00 Pulse 60 12/09/17 12:00 Resp 18 12/09/17 12:00 BP 141/74 12/09/17 12:00 Pulse Ox 97 12/09/17 06:00 - Labs Result Diagrams: 12/09/17 07:30 12/09/17 07:30 Labs: Laboratory Results - last 24 hr 12/08/17 12/09/17 12/09/17 22:00 02:30 07:30 WBC 15.0 H RBC 3.08 L Hgb 9.1 L Hct 28.8 L MCV 93.5 MCH 29.5 MCHC 31.6 RDW 18.7 H Plt Count 279 MPV 9.7 pO2 46 49 VBG pH 7.35 7.55 H VBG pCO2 56.0 35.0 L VBG HCO3 30.9 H 30.6 H VBG Total CO2 32.6 H 31.7 H VBG O2 Sat (Calc) 83.3 H 92.2 H VBG Base Excess 3.8 H 8.0 H VBG Potassium 3.6 4.5 Sodium 140.0 131.0 L Chloride 102.0 101.0 Glucose 83 80 Lactate 2.1 1.8 FiO2 21.0 21.0 Potassium Carbon Dioxide Anion Gap BUN Creatinine Est GFR ( Amer) Est GFR (Non-Af Amer) Random Glucose Calcium Total Bilirubin AST ALT Alkaline Phosphatase Troponin I Total Protein Albumin Globulin Albumin/Globulin Ratio Venous Blood Potassium 3.6 4.5 12/09/17 07:30 WBC RBC Hgb Hct MCV MCH MCHC RDW Plt Count MPV pO2 VBG pH VBG pCO2 VBG HCO3 VBG Total CO2 VBG O2 Sat (Calc) VBG Base Excess VBG Potassium Sodium 138 Chloride 99 Glucose Lactate FiO2 Potassium 3.7 Carbon Dioxide 28 Anion Gap 15 BUN 39 H Creatinine 6.3 H Est GFR ( Amer) 11 Est GFR (Non-Af Amer) 9 Random Glucose 74 Calcium 7.9 L Total Bilirubin 0.5 AST 30 ALT 19 Alkaline Phosphatase 94 Troponin I 0.24 H* Total Protein 6.5 Albumin 2.7 L Globulin 3.8 Albumin/Globulin Ratio 0.7 L Venous Blood Potassium
[2017-12-09] MEDS ORDERED: Amikacin 500 mg/2ml Inj IV ONE (17:13)
--- NOTE | 2017-12-09 17:14 | CON ---
DATE: 12/09/2017 PULMONARY CONSULTATION REASON FOR THIS PULMONARY CONSULTATION: To rule out pneumonia. REFERRING PHYSICIAN: Parag Brownlee DO History is obtained via extensive discussion with the night nurse. I have also reviewed the chart at length, and discussed the case with the patient at length. The patient is a 72-year-old male, chronically ill, with past medical history significant for end-stage renal disease, hemodialysis dependence, HIV positivity, chronic obstructive pulmonary disease, diabetes mellitus, prostate cancer, who presents to [facility] - transferred from dialysis - with fever and tachycardia. In the emergency room, the patient was found to have a significant leukocytosis. He was thus admitted for additional evaluation. Again, I did discuss the case with the night nurse at length. I have also discussed the case with the patient at length. The patient denies shortness of breath at rest, dyspnea on exertion, cough, and/or sputum production. There is also no history of chest pain, coughing up of blood, or chest pain - made worse with deep respirations. The patient did present from dialysis with fevers. There have been no fevers since admission. No history of chills or infectious exposure. No history of night sweats. The patient does state to some weight loss with decreased appetite over the past year. No history of calf pains. No history of syncope or diaphoresis. No history of recent travel or trauma. REVIEW OF SYSTEMS: No history of nausea, vomiting. + diarrhea. No new neurologic or musculoskeletal complaints. Rest of the review of systems negative. ALLERGIES: BANANAS AND SHRIMP. SOCIAL HISTORY: Positive for tobacco and negative for alcohol. FAMILY HISTORY: No inheritable diseases. HOME MEDICATIONS: Include Tivicay, Flomax, Renagel, Procardia, Toprol, lamivudine, vitamin D, Zyloprim, abacavir. PHYSICAL EXAMINATION: GENERAL: The patient appears comfortable this morning. He is not short of breath at rest. He is not using accessory muscles for breathing. VITAL SIGNS: Temperature is 98.5, pulse on the monitor is 91, respiratory rate 18, blood pressure 133/74, oxygen saturation on nasal cannula is 97% to 100%. Oxygen saturation on room air is 95%. HEENT: Normocephalic, atraumatic. No JVD. CARDIOVASCULAR: Systolic ejection murmur at the lower left sternal border. No S3 gallop. LUNGS: Clear bilaterally. EXTREMITIES: Mild edema. No cyanosis, no clubbing. Calves are nontender to palpation. GI: Abdomen is soft, nontender, and nondistended. Bowel sounds are positive. SKIN: No acute rash. NEUROLOGIC: Limited at the present time. PERTINENT LABORATORY DATA: Chest x-ray was done and reviewed. There is minimal linear atelectasis noted at the left base. There are no other acute findings. CBC: White count 17.3, hemoglobin 9.2, hematocrit 28.7, platelets of 349,000. Complete metabolic profile: Potassium 3.1, chloride 97. BUN 33, creatinine 5.6. Calcium 8. Troponin 0.23, albumin 2.7. Rest of the metabolic profile is within normal limits. IMPRESSION: 1. Sepsis syndrome. 2. End-stage renal disease. 3. Human immunodeficiency virus positivity. 4. Minimal atelectasis - left base. 5. Anemia. 6. Chronic obstructive pulmonary disease (on no pulmonary meds). PLAN: Again, I did discuss the case with the night nurse at length. I have also reviewed the chart at length, and discussed the case with the patient at length. The patient was transferred from dialysis - to the emergency room yesterday - because of fever and tachycardia. Again, there have been no temperatures measured since his admission. I did review the chest x-ray as above. The chest x-ray reveals very minimal linear atelectasis at the left base. I will order an incentive spirometer to be used. On physical exam, the patient's lungs are clear. In addition, there is no alveolar-arterial gradient. Oxygen saturation on room air is 95%. Oxygen saturation on nasal cannula is 97% to 100%. The patient was started on DuoNeb treatments, and we can continue with those for now. Again, the patient offers no pulmonary symptoms at this point in time. In addition, the nurse also offers no pulmonary symptoms at this point in time - concerning the patient. Dr. Flowers (Infectious Disease) has been called on the case for antibiotic usage. Consultations with Renal and Cardiology have also been ordered. Additional pulmonary intervention will be based on the clinical status of the patient. At this point in time, there is nothing more significant to add from a pulmonary point of view. I will discuss the above with Dr. Brownlee. Thank you very much for this pulmonary consultation. Partha Klein MD [facility] # [id number] [place]
[2017-12-09] MEDS: Meropenem 500 MG in Sodium Chloride 0.9% 50 ML IVPB SCH (18:03)
--- NOTE | 2017-12-09 20:25 | HP ---
DATE OF EXAM: HISTORY OF PRESENT ILLNESS: I know Raza very well from multiple admissions to [facility]. He is a 72-year-old man who is here today with temperatures and not feeling well with a fast heart rate and was sent to the emergency room. PAST MEDICAL HISTORY: HIV, COPD, vertigo, diabetes, prostate cancer, kidney failure on dialysis. He had multiple sepsis. He has peripheral vascular disease. He has had amputations. He has had sepsis before. Diabetes. He has had cellulitis. He had dry gangrene and osteomyelitis of the left foot in the past. Multiple falls. GERD. Prostate cancer. He has a right BKA from PVD circulation issues, gangrene. He has also had abdominal surgery for obstruction with adhesions. FAMILY HISTORY: There is hypertension, diabetes in the family. SOCIAL HISTORY: Never smoked. Alcohol, he does drink occasionally. No substance abuse. ALLERGIES: HE HAS ALLERGIES TO BANANAS AND SHRIP. MEDICATIONS: He takes Ziagen, Zyloprim, vitamin D, Tivicay, Epivir, Toprol, Procardia, Renagel, and Flomax. REVIEW OF SYSTEMS: He has been having fevers. He has been tired. No acute vision or hearing changes. He did have palpitations. No congestion or shortness of breath. From time to time, a little nauseous but no vomiting or diarrhea or constipation. He is urinating okay. No back pain or leg pains. Skin, for the most part, is intact that he could tell. He is alert at this time. He is not confused, not anxious. PHYSICAL EXAMINATION: VITAL SIGNS: He has 103 temperature, 115 pulse, 20 respiratory rate, 145/79 blood pressure, 95% O2 sat on room air. He has got temperature, he is febrile; he is hypertensive; he is tachycardic; he is ill appearing. He is alert and oriented x3. HEENT: Head atraumatic, normocephalic. Extraocular muscles are intact. Pupils are equal and reactive to light. Throat is moist. NECK: Supple. HEART: Regular rate. LUNGS: Decreased breath sounds, but clear to auscultation. No wheezes, no rhonchi, no rales. ABDOMEN: Mildly tender, mildly distended but normal bowel sounds. No guarding, no rebound. EXTREMITIES: He has a right BKA. The left extremity got no edema. NEUROLOGIC: GCS is 15. Cranial nerves II through XII grossly intact. Alert and oriented x3. SKIN: Poor turgor. Foot warm. LABORATORY DATA: He had multiple lab tests done. He comes in with a 17.3 white count, 9.2 hemoglobin with 20.7 hematocrit, and 349 platelets. White count dropped down to 50 with antibiotics. INR is 1.54. Blood gas shows 2 lactate. He has 138 sodium; potassium is low at 3.1, it was replaced; BUN is 39; creatinine 6.3. He is on dialysis. Calcium is 7.9, total bili is 0.5, AST is 30, ALT is 19, and alkaline phosphatase is 94. His troponin is 0.23 and 0.24 based on dialysis, total protein is 6.5. Serology is negative for the flu. His chest x-ray is read as left lower lobe atelectasis; however, developing pneumonia is not excluded. Small bilateral effusions. He will have consults with Cardio and Infectious Disease and Renal and Pulmonary. Go off IV antibiotics, physical therapy, insulin coverage, oxygen and hopefully, he will do well. I am going to get him out as soon as we can. Parag Brownlee, DO : 12/09/2017 10:10:32
--- NOTE | 2017-12-09 21:49 | CARD ---
APPROVED REPORT EKG Measurement Heart [id number] IN [id number] [id number] <Conclusion> Sinus tachycardia with occasional premature ventricular complexes Possible Left atrial enlargement Anterior infarct, age undetermined Abnormal ECG
[2017-12-10] MEDS: Insulin Reg-MEDIUM-Coverage SC SCH ×5 (01:30→23:29)
--- NOTE | 2017-12-10 03:27 | CON ---
DATE: CARDIOLOGY CONSULTATION REASON FOR CONSULTATION: Elevated troponin. HISTORY OF PRESENT ILLNESS: The patient is a 72-year-old -[place] male who is HIV positive, has a peripheral vascular disease, status post right [id number] amputation in October of this year according to the patient with history of amputation of the left first and second toe. The patient denies any cardiac history in the past. The patient has end-stage renal disease on hemodialysis. He presented because of fever. The patient denies retrosternal chest pain. SOCIAL HISTORY: Nonsmoker. PAST MEDICAL HISTORY: Prostate cancer; end-stage renal disease, on hemodialysis; HIV positive; chronic obstructive lung disease; peripheral vascular disease, status post right dbowo-ceh-nypd amputation and left first and second toe amputation. MEDICATIONS: Flomax 0.4 mg once a day, Nephro one tablet daily, Procardia XL 60 mg once a day, Renagel 800 mg t.i.d., Toprol-XL 25 mg once a day, Zosyn 2.25 g intravenously every 8 hours, Zyloprim 100 mg once day besides antiviral medications. REVIEW OF SYSTEMS: No dizziness or syncope. PHYSICAL EXAMINATION: GENERAL: The patient is an elderly male who is not very cooperative in history taking or physical examination, does not appear to be in any distress. VITAL SIGNS: Blood pressure 141/74, heart rate 60, temperature 100.2, respiration 18. HEENT: Pale conjunctivae. CHEST: Bilateral rhonchi. HEART: S1, S2, regular. ABDOMEN: Soft. EXTREMITIES: Right gamqf-gat-mguj amputation and left first and second toe amputation. LABORATORY EXAM: Hemoglobin and hematocrit 9.1 and 28.8, white count , platelet count 279,000. SMA-7 is sodium 138, potassium 3.7, chloride 99, CO2 28, glucose 74, BUN 39, creatinine 6.3, troponin 0.23 and 0.24 respectively. INR is 1.54. PTT 41.8. EKG revealed a sinus tachycardia, rate 115, occasional PVCs, left atrial enlargement, possible old anterior infarct. Rotated chest x-ray, widened mediastinum. Hemodialysis access seen in the right atrium. Blood cultures negative for Gram negative rods. The most recent echo in August this year revealed chamber size appears within normal limits, mild concentric LVH with normal systolic function, tpma-yw-pemqrkxx aortic insufficiency, ckcn-jc-fhgstsql tricuspid insufficiency, cannot exclude valvular vegetation. ASSESSMENT: 1. Gram negative bacteremia. 2. Rule out bacterial endocarditis. 3. End-stage renal disease, on hemodialysis. 4. Peripheral vascular disease, status post right above-knee amputation and left first and second toe amputation. RECOMMENDATIONS: Continue current antiviral medications. Continue Zosyn 2.25 g intravenously every 8 hours, Toprol-XL 25 mg once a day, Procardia XL 60 mg once a day. Obtain repeat transthoracic echocardiographic study and treat for bacterial endocarditis at the same time. Padilla Live MD
--- NOTE | 2017-12-10 04:53 | CON ---
DATE: 12/09/2017 Patient was seen earlier this morning. CHIEF COMPLAINT: Fever of one day duration. HISTORY OF PRESENT ILLNESS: This is a 72-year-old male, known to me from multiple previous admissions, who was admitted to the Emergency Room with syncope and fever of one day duration, with a history of hypertension, prostate cancer, positive HIV, follows at the [facility], with a last CD4 count of 349, history of first toe osteomyelitis and a first toe amputation, history of gout, pyelonephritis, E. coli bacteremia, history of angioplasty, chronic obstructive lung disease, history of peripheral vascular disease and prostatectomy, also now admitted with fevers. Infectious Disease consultation requested. Patient says he has some shortness of breath, some cough. No abdominal pain. Patient had recent hospitalizations, last month had a small bowel obstruction which required exploratory lap and appendectomy, lysis of adhesions. Also was found to have influenza. REVIEW OF SYSTEMS: Twelve-point review of systems was performed. PAST MEDICAL HISTORY: Significant for positive HIV, positive hypertension, prostate cancer, chronic obstructive lung disease, peripheral vascular disease, hyperlipidemia, E. coli bacteremia, gout, end-stage renal disease. PAST SURGICAL HISTORY: Significant for angioplasty, recent exploratory laparotomy and lysis of adhesions for small bowel obstruction and appendectomy, first toe amputation, prostatectomy. ALLERGIES: PATIENT IS ALLERGIC TO BANANA AND SHRIMP. MEDICATIONS: At home are reviewed and include dolutegravir (Tivicay) at 50 mg daily, Ziagen (abacavir), and Epivir (lamivudine). PHYSICAL EXAMINATION: GENERAL: Patient is in bed, appearing weak, who is an end-stage. VITAL SIGNS: Temperature of 103, heart rate of 100, blood pressure is 133/70, respiratory rate of 20, O2 saturation at 95%. HEENT: Unremarkable. NECK: Supple. LUNGS: Have decreased breath sounds. CHEST: Patient also has a dialysis catheter in his chest. HEART: Normal S1, S2. ABDOMEN: Soft, nontender. LABORATORY DATA: Reveals a white count of 17,300, hemoglobin of 9, platelets of 349. Chemistries reveals a BUN of 33, creatinine is 5.6, troponin is elevated at 0.23 and 0.24. Influenza is negative. HIV viral load was undetectable in 04/2017. Percentage T-cells was at 9% in 08/2017, and absolute CD4 count was at 267 in 08/2017, approximately 3 months ago. Microbiology reveals gram-negative rods in the blood cultures, and patient had received Zosyn. note is reviewed. ASSESSMENT AND PLAN: This is a 72-year-old male, known to me from multiple admissions with positive human immunodeficiency virus, positive hypertension, peripheral vascular disease, chronic obstructive lung disease, history of influenza, osteomyelitis, gout, E. coli bacteremia in the past with chronic renal failure, end-stage renal disease on hemodialysis on Tuesdays, and Saturdays, who is presenting with a fever, tachycardia, positive blood cultures for gram-negative bronson with sepsis, with gram-negative bronson bacteremia, must rule out gastrointestinal source although the abdomen is soft, most likely secondary to Perm-A-Cath that is in his chest wall for the dialysis. We will repeat blood cultures in the a.m. We will order a CAT scan of the abdomen and pelvis. We will order a urinalysis and urine culture. We will treat the patient with meropenem and amikacin pending identification and sensitivity of the gram-negative bronson bacteremia in this patient with sepsis. May require the catheter removal. Cesar Flowers MD
--- NOTE | 2017-12-10 06:43 | CP.PCM.PN ---
Subjective - Date & Time of Evaluation Date of Evaluation: 12/10/17 Time of Evaluation: 06:40 - Subjective Subjective: Patient was seen at bedside. Nurse had called with heart rate in the 120's. Has no complaints. Medical record was reviewed. BP 110/72, Pulse ox 97% on 2L/Min. This 72 year old male was admitted with not feeling well, temperature. Has PMH of HIV,DM,COPD,vertigo,prostate cancer, GERD,ESRD on HD. Objective - Vital Signs/Intake and Output Vital Signs (last 24 hours): Temp Pulse Resp BP Pulse Ox 98.4 F 120 H 19 133/67 98 12/10/17 06:00 12/10/17 06:00 12/10/17 06:00 12/10/17 06:00 12/10/17 06:00 Intake and Output: 12/09/17 12/10/17 18:59 06:59 Intake Total 720 Output Total 5 Balance 715 - Medications Medications: Current Medications Abacavir Sulfate (Ziagen) 300 mg PO DAILY DWAIN PRN Reason: Protocol Last Admin: 12/09/17 10:25 Dose: 300 mg Acetaminophen (Tylenol 325mg Tab) 650 mg PO Q4H PRN PRN Reason: Fever >100.4 F Last Admin: 12/09/17 10:27 Dose: 650 mg Allopurinol (Zyloprim) 100 mg PO DAILY [facility] Last Admin: 12/09/17 10:25 Dose: 100 mg Cholecalciferol (Vitamin D) 1,000 intlu PO DAILY [facility] Last Admin: 12/09/17 10:19 Dose: 1,000 intlu Meropenem 500 mg/ Sodium (Chloride) 50 mls @ 100 mls/hr IVPB Q12 DWAIN PRN Reason: Protocol Stop: 12/18/17 17:13 Last Admin: 12/09/17 18:03 Dose: 100 mls/hr Insulin Human Regular (Humulin R Med) 0 units SC ACHS DWAIN PRN Reason: Protocol Last Admin: 12/10/17 01:30 Dose: Not Given Metoprolol Succinate (Toprol Xl) 25 mg PO DAILY [facility] Last Admin: 12/09/17 10:19 Dose: 25 mg Nifedipine (Procardia Xl) 60 mg PO DAILY [facility] Last Admin: 12/09/17 10:19 Dose: 60 mg Dolutegravir Sodium [Tivicay] 50 Mg ( Home Med) 50 mg PO DAILY [facility] Last Admin: 12/09/17 10:22 Dose: Not Given Lamivudine [Epivir Hbv] 100 Mg ( Home Med) 100 mg PO DAILY [facility] Last Admin: 12/09/17 10:23 Dose: Not Given Sevelamer HCl (Renagel) 800 mg PO TID [facility] Last Admin: 12/09/17 18:05 Dose: 800 mg Tamsulosin HCl (Flomax) 0.4 mg PO DAILY [facility] Last Admin: 12/09/17 10:19 Dose: 0.4 mg Vitamin B Complex/Vit C/Folic Acid (Nephro-Christel) 1 tab PO 0800 [facility] - Labs Labs: 12/09/17 07:30 12/09/17 07:30 PT 17.7 SECONDS (9.4-12.5) H 12/08/17 17:00 INR 1.54 (0.93-1.08) H 12/08/17 17:00 APTT 41.8 Seconds (25.1-36.5) H 12/08/17 17:00 - Constitutional Appears: Well, No Acute Distress - Head Exam Head Exam: ATRAUMATIC, NORMAL INSPECTION, NORMOCEPHALIC - Eye Exam Eye Exam: Normal appearance - ENT Exam ENT Exam: Normal External Ear Exam - Neck Exam Neck Exam: Normal Inspection - Respiratory Exam Respiratory Exam: NORMAL BREATHING PATTERN - Cardiovascular Exam Cardiovascular Exam: Tachycardia. absent: JVD - GI/Abdominal Exam GI & Abdominal Exam: absent: Distended - Rectal Exam Rectal Exam: Deferred - Exam Additional comments: Deferred. - Extremities Exam Extremities Exam: Normal Inspection - Back Exam Back Exam: NORMAL INSPECTION - Neurological Exam Neurological Exam: Alert, Oriented x3 - Psychiatric Exam Psychiatric exam: Normal Affect, Normal Mood - Skin Skin Exam: Normal Color Assessment and Plan - Assessment and Plan (Free Text) Assessment: Sinus tachycardia. ESRD on HD. Prostate cancer. HIV. DM. COPD. GERD. Plan: Toprol xl 25 mg PO now instead of at 10 am. Continue present management.
[2017-12-10] MEDS: NIFEdipine 60 mg ER Tab PO SCH (06:50)
[2017-12-10] MEDS: Metoprolol Succinate 25 mg XL Tab PO SCH ×2 (06:50→10:00)
[2017-12-10] MEDS ORDERED: Barium Sulfate Susp 2.1% w/v, 2.0% w/w 450 mL Bottle PO ONE (06:57)
[2017-12-10 07:37] LABS: HEMOGLOBIN 8.9 g/dL (14.0-18.0); MEAN CELL VOLUME 90.8 fl (80.0-105.0); MEAN CORPUSCULAR HEMOGLOBIN 29.2 pg (25.0-35.0); MEAN CORPUSCULAR HGB CONC 32.1 g/dl (31.0-37.0); MEAN PLATELET VOLUME 9.7 fl (7.0-11.0); RBC 3.05 10^6/uL (3.5-6.1); RED CELL DISTRIBUTION WIDTH 18.5 % (11.5-14.5); WHITE BLOOD COUNT 15.3 10^3/ul (4.5-11.0)
[2017-12-10 07:58] LABS: ALB/GLOB RATIO 0.7 (1.1-1.8); ALBUMIN 2.5 g/dL (3.0-4.8); CALCIUM 7.8 mg/dL (8.4-10.5)
[2017-12-10] MEDS: Multivitamin Vitamin B Complex (Nephro-Vite) Tab PO SCH (09:17)
[2017-12-10] MEDS: Cholecalciferol 1,000 INTLU TAB PO SCH (09:17)
[2017-12-10] MEDS: LAMIVUDINE 100 MG PO SCH (09:18)
[2017-12-10] MEDS: Dolutegravir Sodium [Tivicay] 50 mg (HOME MED) PO SCH (09:18)
[2017-12-10] MEDS: Meropenem 500 MG in Sodium Chloride 0.9% 50 ML IVPB SCH ×2 (09:26→15:13)
--- NOTE | 2017-12-10 10:11 | PN ---
DATE: SUBJECTIVE: I saw him resting comfortably in bed. He slept fairly well. He is having some skin excoriation in his groin. We are giving him cream for that. We are also checking the stool for C. diff. There could be some diarrhea going on. He is being seen by Cardio, Renal, Pulmonary, Infectious Disease. MEDICATIONS: He is on Amikacin, Tivicay, Flomax, insulin coverage, Epivir, Merrem IV, Nephro, vitamin, Procardia, Renagel, Toprol, Tylenol, vitamin D, Ziagen and Zyloprim. PHYSICAL EXAMINATION: VITAL SIGNS: He has a 98.4 temp, 82 pulse, 133/67 blood pressure, 19 respiratory rate, 98% O2 sat on room air. HEENT: His head is atraumatic, normocephalic. HEART: Regular rate. They were 123 earlier. I feel Cardio has to say why the increase in the pace. LUNGS: Decreased breath sounds, but clear to auscultation. ABDOMEN: Soft. EXTREMITIES: He has a right BKA, but the left leg is okay and the groin is all covered in, I believe, AMD, it is all white, which is helping him. LABORATORY DATA: He has a 15.3 white count, still up; 8.9 hemoglobin; 27.7 hematocrit with a 308 platelets. 137 sodium; potassium 3.1, I am going to replace potassium; BUN is 43, creatinine is 7, he is on dialysis; GFR is 8; blood sugars between 111 and 82 and then 24; calcium 7.8; total bili is 0.4; AST is 38; ALT is 24; alk phos is 86. ASSESSMENT AND PLAN: We might have to get him an amp of dextrose. I will continue aggressive treatment and care, IV antibiotics, checking for infection. Parag Brownlee DO
--- NOTE | 2017-12-10 14:03 | CT ---
PROCEDURE: CT Abdomen and Pelvis without intravenous contrast HISTORY: r/o collection COMPARISON: 11/16/2017 CT TECHNIQUE: Without contrast. Contrast Dose: Radiation dose: Total exam DLP = Total exam DLP = 436 mGy-cm. This CT exam was performed using one or more of the following dose reduction techniques: Automated exposure control, adjustment of the mA and/or kV according to patient size, and/or use of iterative reconstruction technique. FINDINGS: LOWER THORAX: Small bilateral pleural effusions. Minimal bibasilar infiltrates LIVER: Unremarkable. No gross lesion or ductal dilatation. GALLBLADDER AND BILE DUCTS: Unremarkable. PANCREAS: Unremarkable. No gross lesion or ductal dilatation. SPLEEN: Unremarkable. ADRENALS: Unremarkable. No mass. KIDNEYS AND URETERS: Unremarkable. No hydronephrosis. No solid mass. VASCULATURE: Unremarkable. No aortic aneurysm. BOWEL: There is severe mural thickening in the mid and distal small bowel as well as portions of the colon. There is also mild distention of the small bowel. The pattern is similar to the previous CT. The findings are consistent with enteritis and colitis. APPENDIX: Unremarkable. Normal appendix. PERITONEUM: There is a small amount of ascites. There is anasarca. There is no focal fluid collection. The previous study showed a fluid collection posterior to the bladder. This is no longer seen LYMPH NODES: Unremarkable. No enlarged lymph nodes. BLADDER: Unremarkable. REPRODUCTIVE: Unremarkable. BONES: No acute fracture. OTHER FINDINGS: None. IMPRESSION: Severe mural thickening in the small bowel and portions of the colon consistent with enteritis and colitis.
--- NOTE | 2017-12-10 15:51 | CP.PCM.PN ---
Subjective - Date & Time of Evaluation Date of Evaluation: 12/10/17 Time of Evaluation: 15:46 - Subjective Subjective: Nephrology Consultation Note: Assessment: critical GNR SEPSIS ? source Enteritis and Colitis Hypokalemia, hypoglycemia recent High grade SBO s/p surgery, appendectomy: imporved hx of prostate CA Hypertensive Chronic Kidney Disease (I12.9) ESRD on HD via permacath (TTS) Anemia (D64.9), HTN (I12.9) HIV on HAART, PVD s/p angioplasty s/p Rt AKA Plan plan for HD today and then tomorrow as per TTS. nephrovite 1 tab/day. aransep 60 mcg weekly for anemia 12/10/17. PRBC as needed . last Hb 8.9 resume phos binders when pt orally taking food Hypertension control with meds as ordered. hold nifedipine as BP on low side appreciate ID input Dose meds/antibiotics for ESRD status. Avoid fleets enema/magnesium based laxatives. Further work up/management as per primary team. Thanks for allowing me to participate in care of your patient. Please call if any Qs. Dr Yandel Arechiga Office: [phone] HPI: Pt is a 72 y/o M with hx of HIV on HAART, PVD s/p angioplasty, Rt AKA, hypertension (10-15 years), ESRD on HD (via permacath) TTS [place] [facility] [place], left foot toe amputations, prostate CA presented with pain abdomen and bacteremia renal consult for ESRD management pt doesn't feel well. says everything is bothering him as lower ext pain, groin pain. says alcala catheter was removed 2 weeks ago ROS: denies CP/SOB. all other neg except as in HPI. c/o abdomen pain. s/p CT guided aspiration 11/19/17 feels same with pain in heels, ankle Physical Examination: General Appearance: comfortable, in no acute respiratory distress, facial muscles wasted, ill appearing Vitals reviewed and noted as below Head; Atraumatic, normocephalic ENT: no ulcers no thrush. Tongue is midline dry. Oropharynx: no rash or ulcers. EYES: Pupils are equal, round and reactive to light accommodation. Eye muscles and extraocular movement intact. Sclera is anicteric. Neck; supple no lymphadenopathy, no thyromegaly or bruit Lungs: Normal respiratory rate/effort. Breath sounds bilateral clear Heart: Normal rate. s1s2 normal. No rub or gallop. Extremities: no edema. No varicose veins. s/p Rt AKA Neurological: Patient is alert oriented x 3 follow commands,. no focal deficit Skin: Warm and dry. Normal turgor. Palpitation: Normal elasticity for age. Abdomen: Abdomen is soft. distended and tender in lower abdomen area with guarding. Psych: limited insight. flat affect MSK: Digits and nails normal, left foot toe amputations in past. Rt AKA. : kidney not palpable. Access: permacath and maturing left AVF Labs/imaging/EKG reviewed. Past medical history, past surgical history, family history, social history, allergy reviewed and noted as below Family hx: sister was on dialysis. Rest non-contributory Objective - Vital Signs/Intake and Output Vital Signs (last 24 hours): Temp Pulse Resp BP Pulse Ox 100.5 F H 130 H 18 138/80 98 12/10/17 12:00 12/10/17 14:00 12/10/17 12:00 12/10/17 12:00 12/10/17 06:00 Intake and Output: 12/10/17 12/10/17 06:59 18:59 Intake Total 720 930 Output Total 5 Balance 715 930 - Medications Medications: Current Medications Abacavir Sulfate (Ziagen) 300 mg PO DAILY [facility] PRN Reason: Protocol Last Admin: 12/10/17 09:17 Dose: 300 mg Acetaminophen (Tylenol 325mg Tab) 650 mg PO Q4H PRN PRN Reason: Fever >100.4 F Last Admin: 12/09/17 10:27 Dose: 650 mg Allopurinol (Zyloprim) 100 mg PO DAILY [facility] Last Admin: 12/10/17 09:17 Dose: 100 mg Cholecalciferol (Vitamin D) 1,000 intlu PO DAILY [facility] Last Admin: 12/10/17 09:17 Dose: 1,000 intlu Meropenem 500 mg/ Sodium (Chloride) 50 mls @ 100 mls/hr IVPB 1400 [facility] PRN Reason: Protocol Stop: 12/18/17 17:13 Last Admin: 12/10/17 15:13 Dose: Not Given Insulin Human Regular (Humulin R Med) 0 units SC ACHS [facility] PRN Reason: Protocol Last Admin: 12/10/17 12:07 Dose: Not Given Metoprolol Succinate (Toprol Xl) 25 mg PO DAILY [facility] Last Admin: 12/10/17 06:50 Dose: 25 mg Dolutegravir Sodium [Tivicay] 50 Mg ( Home Med) 50 mg PO DAILY [facility] Last Admin: 12/10/17 09:18 Dose: Not Given Lamivudine [Epivir Hbv] 100 Mg ( Home Med) 100 mg PO DAILY [facility] Last Admin: 12/10/17 09:18 Dose: Not Given Sevelamer HCl (Renagel) 800 mg PO TID [facility] Last Admin: 12/10/17 15:13 Dose: 800 mg Tamsulosin HCl (Flomax) 0.4 mg PO DAILY [facility] Last Admin: 12/10/17 09:18 Dose: 0.4 mg Vitamin B Complex/Vit C/Folic Acid (Nephro-Christel) 1 tab PO 0800 [facility] Last Admin: 12/10/17 09:17 Dose: 1 tab - Labs Labs: 12/10/17 07:00 12/10/17 07:00 PT 17.7 SECONDS (9.4-12.5) H 12/08/17 17:00 INR 1.54 (0.93-1.08) H 12/08/17 17:00 APTT 41.8 Seconds (25.1-36.5) H 12/08/17 17:00
[2017-12-10] MEDS: Darbepoetin Alfa 60 mcg/ml Inj IVP ONE ×2 (17:06→23:29)
--- NOTE | 2017-12-10 20:29 | CP.PCM.PN ---
Subjective - Date & Time of Evaluation Date of Evaluation: 12/10/17 Time of Evaluation: 10:25 - Subjective Subjective: No fevers, feels weak, no diarrhea, complaining of abdominal pain currently. Objective - Vital Signs/Intake and Output Vital Signs (last 24 hours): Temp Pulse Resp BP Pulse Ox 100.5 F H 130 H 18 138/80 98 12/10/17 12:00 12/10/17 14:00 12/10/17 12:00 12/10/17 12:00 12/10/17 06:00 Intake and Output: 12/10/17 12/11/17 18:59 06:59 Intake Total 930 Balance 930 - Medications Medications: Current Medications Abacavir Sulfate (Ziagen) 300 mg PO DAILY [facility] PRN Reason: Protocol Last Admin: 12/10/17 09:17 Dose: 300 mg Acetaminophen (Tylenol 325mg Tab) 650 mg PO Q4H PRN PRN Reason: Fever >100.4 F Last Admin: 12/09/17 10:27 Dose: 650 mg Allopurinol (Zyloprim) 100 mg PO DAILY [facility] Last Admin: 12/10/17 09:17 Dose: 100 mg Cholecalciferol (Vitamin D) 1,000 intlu PO DAILY [facility] Last Admin: 12/10/17 09:17 Dose: 1,000 intlu Meropenem 500 mg/ Sodium (Chloride) 50 mls @ 100 mls/hr IVPB 1400 [facility] PRN Reason: Protocol Stop: 12/18/17 17:13 Last Admin: 12/10/17 15:13 Dose: Not Given Insulin Human Regular (Humulin R Med) 0 units SC ACHS [facility] PRN Reason: Protocol Last Admin: 12/10/17 17:05 Dose: Not Given Metoprolol Succinate (Toprol Xl) 25 mg PO DAILY [facility] Last Admin: 12/10/17 10:00 Dose: Not Given Dolutegravir Sodium [Tivicay] 50 Mg ( Home Med) 50 mg PO DAILY [facility] Last Admin: 12/10/17 09:18 Dose: Not Given Lamivudine [Epivir Hbv] 100 Mg ( Home Med) 100 mg PO DAILY [facility] Last Admin: 12/10/17 09:18 Dose: Not Given Sevelamer HCl (Renagel) 800 mg PO TID [facility] Last Admin: 12/10/17 17:05 Dose: Not Given Tamsulosin HCl (Flomax) 0.4 mg PO DAILY [facility] Last Admin: 12/10/17 09:18 Dose: 0.4 mg Vitamin B Complex/Vit C/Folic Acid (Nephro-Christel) 1 tab PO 0800 [facility] Last Admin: 12/10/17 09:17 Dose: 1 tab - Labs Labs: 12/10/17 07:00 12/10/17 07:00 PT 17.7 SECONDS (9.4-12.5) H 12/08/17 17:00 INR 1.54 (0.93-1.08) H 12/08/17 17:00 APTT 41.8 Seconds (25.1-36.5) H 12/08/17 17:00 - Constitutional Appears: Chronically Ill - Head Exam Head Exam: NORMAL INSPECTION - Neck Exam Neck Exam: absent: Meningismus - Respiratory Exam Respiratory Exam: Decreased Breath Sounds - Cardiovascular Exam Cardiovascular Exam: +S1, +S2 - GI/Abdominal Exam GI & Abdominal Exam: Guarding, Soft, Tenderness. absent: Distended, Rigid, Rebound Assessment and Plan - Assessment and Plan (Free Text) Plan: Assessment sepsis due to gram negative bacilli bacteremia with associated enteritis and colitis, R/O HD catheter associated bacteremia history of small bowel obstruction S/P ex-lap, adhesiolysis, repair of umbilical hernia and appendectomy S/P UTI severe PAD S/P angioplasty of the left tibial artery S/P right AKA UTI with MRSA and Strep viridans systemic viral illness with Influenza history of left foot 3rd digit chronic osteomyelitis S/P amputation and debridement right sided nephrolithiasis history of severe sepsis with acute on chronic renal failure probably due to pyelonephritis with E. coli bacteremia history of C. diff. associated diarrhea Charcot foot, left history of left 2nd toe dry gangrene Chronic renal failure on hemodialysis HTN prostate CA HIV (patient goes to the [place] with last CD4 count here at [facility] 03/2016 349 and virus load < 1.3 log) history of osteomyelitis of left first toe S/P amputation (2015) gout history of left foot ulcers Plan given a dose of IV amikacin and continue Merrem and will get duplex U/s of RUE to rule out DVT; repeat blood cx are negative so far - concerned about HD catheter infection - follow up 2D echo as well continue antiretroviral therapy (lamivudine, abacavir on formulary but dolutegravir should be taken by patient from his home supply) overall prognosis is poor
[2017-12-10] MEDS ORDERED: Dextrose 50% SYRINGE Inj (50 ml) ONE (21:28)
[2017-12-10] MEDS: Dextrose 50% SYRINGE Inj (50 ml) IVP PRN ×2 (21:30→22:10)
[2017-12-10] MEDS: Albuterol-Ipratrop 3 mg / 0.5 (3 ml) UD IH SCH (23:29)
[2017-12-11 07:21] LABS: HEMOGLOBIN 8.1 g/dL (14.0-18.0); MEAN CELL VOLUME 89.5 fl (80.0-105.0); MEAN CORPUSCULAR HEMOGLOBIN 29.2 pg (25.0-35.0); MEAN CORPUSCULAR HGB CONC 32.7 g/dl (31.0-37.0); MEAN PLATELET VOLUME 10.4 fl (7.0-11.0); RBC 2.77 10^6/uL (3.5-6.1); RED CELL DISTRIBUTION WIDTH 18.3 % (11.5-14.5)
[2017-12-11 07:41] LABS: ALB/GLOB RATIO 0.7 (1.1-1.8); ALBUMIN 2.4 g/dL (3.0-4.8); CALCIUM 7.9 mg/dL (8.4-10.5)
[2017-12-11] MEDS: Multivitamin Vitamin B Complex (Nephro-Vite) Tab PO SCH (09:25)
[2017-12-11] MEDS: Calcium-Vit D 250 mg-125 Units Tab UD PO SCH (09:25)
[2017-12-11] MEDS: Cholecalciferol 1,000 INTLU TAB PO SCH (09:25)
--- NOTE | 2017-12-11 09:39 | PN ---
DATE: 12/10/2017 CARDIOLOGY FOLLOWUP SUBJECTIVE: The patient is in bed. He is comfortable. PHYSICAL EXAMINATION: VITAL SIGNS: Blood pressure is 114/79, heart rate is 120, sinus tachycardia. NECK: Negative JVD. LUNGS: Decreased breath sounds. HEART: Reveal S1, S2. EXTREMITIES: Status post amputation of lower extremities. LABORATORY DATA: Troponins of 0.24. BUN and creatinine are 43 and 7. Hemoglobin is 8.9 with elevated white count. IMPRESSION: 1. Sepsis. 2. Severe peripheral vascular disease. 3. End-stage renal disease. 4. Chronic obstructive pulmonary disease. 5. Status post amputations of lower extremities. 6. Documented gram-negative bacteremia. PLAN: Given these findings, the patient's elevated heart rate is likely due to his bacteremia and sepsis. Awaiting for echocardiogram to evaluate his LV function. The patient is placed on metoprolol. Emmanuel Weller MD
[2017-12-11] MEDS: Metoprolol Succinate 25 mg XL Tab PO SCH (09:43)
[2017-12-11] MEDS: LAMIVUDINE 100 MG PO SCH (09:47)
[2017-12-11] MEDS: Insulin Reg-MEDIUM-Coverage SC SCH ×4 (09:47→22:59)
[2017-12-11] MEDS: Dolutegravir Sodium [Tivicay] 50 mg (HOME MED) PO SCH (09:47)
--- NOTE | 2017-12-11 10:16 | US ---
PROCEDURE: Right upper extremity venous US CLINICAL HISTORY: Arm pain and swelling Evaluate for deep venous thrombosis. PHYSICIAN(S): Emmanuel Good M.D FINDINGS: The visualized rightinternal jugular vein is sonographically normal and compressible. No evidence of obstruction or thrombus is seen. The visualized segments of the right subclavian vein are patent with normal waveforms. No sonographic evidence of obstruction or thrombosis is seen. The visualized deep venous system of the proximal right upper extremity is sonographically normal and compressible. IMPRESSION: 1. No sonographic evidence for deep venous thrombosis in the visualized segments of the right upper extremity.
--- NOTE | 2017-12-11 11:11 | PN ---
DATE: SUBJECTIVE: I saw him at 2-D echo. He is comfortable. He did not sleep well last night. He is not feeling that great overall, but I do think it is better than when he came in. MEDICATIONS: He is on dextrose, Tivicay, Flomax, insulin, Epivir, Merrem IV, Nephro-Christel, Renagel, Toprol, Tylenol, vitamin D, Ziagen and Zyloprim. PHYSICAL EXAMINATION: VITAL SIGNS: He has a 100.5 temp, 52 up to 130 pulse, 138/80 blood pressure, 18 respiratory rate. HEENT: His head is atraumatic, normocephalic. HEART: Regular rate at this time. LUNGS: Decreased breath sounds, but clear. ABDOMEN: Soft. EXTREMITIES: There is a right BKA. He can go for dialysis today. LABORATORY DATA: He has a 14,000 white count, it is coming down slowly; 8.1 hemoglobin; 24.8 hematocrit with a 291 platelets. He has a 137 sodium, potassium is 3. I am going to replace the potassium. His BUN is 28, creatinine 5, on dialysis. GFR is 11, sugar is 114, calcium is 11.9, phosphorous 2.9, AST is 46, ALT is 20, alk phos is 80, total protein is 5.8. ASSESSMENT AND PLAN: We are going to give him some calcium also. He is being seen by Infectious Disease, Renal. He has had ultrasounds and echocardiograms. He has sepsis due to colitis. We will continue with the Merrem IV. I will replace the potassium and his calcium. Check his labs tomorrow as per Infectious Disease and also Physical Therapy. Parag Brownlee DO
--- NOTE | 2017-12-11 11:39 | CP.PCM.CON ---
<Tania Driscoll - Last Filed: 12/11/17 11:49> History of Present Illness - History of Present Illness History of Present Illness: Initial PGY4 GI Consult Raza Sagastume 72M w/ hx of ESRD on HD, HTN, prostate CA, HIV on HAART, history of osteomyelitis of left first toe S/P amputation (2015), gout, history of left foot ulcers, history of pyelonephritis with E. coli bacteremia, S/P left foot 3rd digit chronic osteomyelitis S/P amputation and debridement, severe PAD S/P angioplasty of the left tibial artery, s/p appendectomy and adhesion lysis (discharged 11/21/17) was sent in to [facility] because fever and rapid heart rate at dialysis center. Pt is a poor historian, most information was obtained from EMR and nursing. Pt has generalized abd pain and rate it a 9 out of 10. He also was noted to have watery diarrhea as per RN, but without BRBPR, melena, or mucus. He had EGD/Colonoscopy last summer 2016 at the [place] which was negative per pt. CT abd revealed diffuse small intestinal thickening ROS: A 12pt ROS was neg except as above PMH: As stated in HPI PSH: As stated in HPI SHX: Deneis etoh, tobacco or drugs FHX: Reviewed; Denies colon cancer Past Patient History - Infectious Disease Hx of Infectious Diseases: None - Tetanus Immunizations Tetanus Immunization: Up to Date - Past Medical History & Family History Past Medical History?: Yes - Past Social History Smoking Status: Never Smoked - CARDIAC Hx Cardiac Disorders: Yes Hx Hypertension: Yes - PULMONARY Hx Chronic Obstructive Pulmonary Disease (COPD): Yes - NEUROLOGICAL Hx Neurological Disorder: Yes - HEENT Hx HEENT Problems: No - RENAL Hx Chronic Kidney Disease: Yes - ENDOCRINE/METABOLIC Hx Diabetes Mellitus Type 2: Yes - HEMATOLOGICAL/ONCOLOGICAL Hx Cancer: Yes (prostate) - INTEGUMENTARY Hx Dermatological Problems: Yes Other/Comment: dry gangrene and osteomyelitis L foot - MUSCULOSKELETAL/RHEUMATOLOGICAL Hx Falls: No - GASTROINTESTINAL Hx Gastroesophageal Reflux: Yes - GENITOURINARY/GYNECOLOGICAL Hx Genitourinary Disorders: Yes - PSYCHIATRIC Hx Psychophysiologic Disorder: No - SURGICAL HISTORY Hx Amputation: Yes (Right BKA) Other/Comment: Abd Sx - ANESTHESIA Hx Anesthesia Reactions: No Hx Malignant Hyperthermia: No Meds Allergies/Adverse Reactions: Allergies Allergy/AdvReac Type Severity Reaction Status Date / Time banana Allergy SWELLING Verified 12/08/17 16:48 shrimp Allergy SWELLING Verified 12/08/17 16:48 - Medications Medications: Current Medications Abacavir Sulfate (Ziagen) 300 mg PO DAILY [facility] PRN Reason: Protocol Last Admin: 12/11/17 09:25 Dose: 300 mg Acetaminophen (Tylenol 325mg Tab) 650 mg PO Q4H PRN PRN Reason: Fever >100.4 F Last Admin: 12/09/17 10:27 Dose: 650 mg Allopurinol (Zyloprim) 100 mg PO DAILY [facility] Last Admin: 12/11/17 09:25 Dose: 100 mg Calcium/Vitamin D (Oscal-D 250 Mg-125 Units Tab) 1 tab PO DAILY [facility] Last Admin: 12/11/17 09:25 Dose: 1 tab Cholecalciferol (Vitamin D) 1,000 intlu PO DAILY [facility] Last Admin: 12/11/17 09:25 Dose: 1,000 intlu Dextrose (Dextrose 50% Inj) 50 ml IVP PRN PRN PRN Reason: Low blood sugar Last Admin: 12/10/17 22:10 Dose: 50 ml Meropenem 500 mg/ Sodium (Chloride) 50 mls @ 100 mls/hr IVPB 1400 [facility] PRN Reason: Protocol Stop: 12/18/17 17:13 Last Admin: 12/10/17 15:13 Dose: Not Given Potassium Chloride (Potassium Chloride 10 Meq/100 Ml) 10 meq in 100 mls @ 50 mls/hr IVPB Q2H [facility] Stop: 12/11/17 12:44 Last Admin: 12/11/17 09:26 Dose: 50 mls/hr Dextrose/Sodium Chloride (Dextrose 5%/0.9% Ns 1000 Ml) 1,000 mls @ 30 mls/hr IV .Q24H [facility] Insulin Human Regular (Humulin R Med) 0 units SC ACHS [facility] PRN Reason: Protocol Last Admin: 12/11/17 09:47 Dose: Not Given Metoprolol Succinate (Toprol Xl) 25 mg PO DAILY [facility] Last Admin: 12/11/17 09:43 Dose: 25 mg Dolutegravir Sodium [Tivicay] 50 Mg ( Home Med) 50 mg PO DAILY [facility] Last Admin: 12/11/17 09:47 Dose: Not Given Lamivudine [Epivir Hbv] 100 Mg ( Home Med) 100 mg PO DAILY [facility] Last Admin: 12/11/17 09:47 Dose: Not Given Tamsulosin HCl (Flomax) 0.4 mg PO DAILY [facility] Last Admin: 12/11/17 09:25 Dose: 0.4 mg Vitamin B Complex/Vit C/Folic Acid (Nephro-Christel) 1 tab PO 0800 [facility] Last Admin: 12/11/17 09:25 Dose: 1 tab Physical Exam - Head Exam Head Exam: ATRAUMATIC, NORMOCEPHALIC - Eye Exam Eye Exam: Normal appearance Pupil Exam: NORMAL ACCOMODATION - ENT Exam ENT Exam: Mucous Membranes Moist, Normal Exam - Neck Exam Neck exam: Positive for: Normal Inspection - Respiratory Exam Respiratory Exam: Clear to Auscultation Bilateral, NORMAL BREATHING PATTERN. absent: Rales, Rhonchi, Wheezes, Respiratory Distress - Cardiovascular Exam Cardiovascular Exam: REGULAR RHYTHM, +S1, +S2 - GI/Abdominal Exam GI & Abdominal Exam: Normal Bowel Sounds, Soft. absent: Diminished Bowel Sounds , Distended, Firm, Guarding, Hernia, Organomegaly, Rebound, Rigid, Tenderness - Extremities Exam Extremities exam: Negative for: joint swelling, pedal edema - Neurological Exam Neurological exam: Alert, Oriented x3 - Psychiatric Exam Psychiatric exam: Normal Affect, Normal Mood - Skin Skin Exam: Dry, Intact, Normal Color, Warm Results - Vital Signs Recent Vital Signs: Last Vital Signs Temp 99.3 F 12/11/17 06:00 Pulse 107 H 12/11/17 09:43 Resp 20 12/11/17 06:00 BP 111/63 12/11/17 06:00 Pulse Ox 98 12/11/17 06:00 - Labs Result Diagrams: 12/11/17 07:00 12/11/17 06:30 Labs: Laboratory Results - last 24 hr 12/10/17 12/10/17 12/10/17 11:39 21:03 22:02 WBC RBC Hgb Hct MCV MCH MCHC RDW Plt Count MPV Sodium Potassium Chloride Carbon Dioxide Anion Gap BUN Creatinine Est GFR ( Amer) Est GFR (Non-Af Amer) POC Glucose (mg/dL) 84 < 20 L* 22 L* Random Glucose Calcium Phosphorus Total Bilirubin AST ALT Alkaline Phosphatase Total Protein Albumin Globulin Albumin/Globulin Ratio 12/10/17 12/11/17 12/11/17 22:46 06:30 07:00 WBC 14.0 H RBC 2.77 L Hgb 8.1 L Hct 24.8 L MCV 89.5 MCH 29.2 MCHC 32.7 RDW 18.3 H Plt Count 291 MPV 10.4 Sodium 137 Potassium 3.0 L Chloride 98 Carbon Dioxide 32 Anion Gap 11 BUN 28 H Creatinine 5.0 H Est GFR ( Amer) 14 Est GFR (Non-Af Amer) 11 POC Glucose (mg/dL) 132 H Random Glucose 114 H Calcium 7.9 L Phosphorus 2.9 Total Bilirubin 0.5 AST 46 ALT 20 Alkaline Phosphatase 80 Total Protein 5.8 Albumin 2.4 L Globulin 3.4 Albumin/Globulin Ratio 0.7 L 12/11/17 08:59 WBC RBC Hgb Hct MCV MCH MCHC RDW Plt Count MPV Sodium Potassium Chloride Carbon Dioxide Anion Gap BUN Creatinine Est GFR ( Amer) Est GFR (Non-Af Amer) POC Glucose (mg/dL) 55 L Random Glucose Calcium Phosphorus Total Bilirubin AST ALT Alkaline Phosphatase Total Protein Albumin Globulin Albumin/Globulin Ratio Assessment & Plan - Assessment and Plan (Free Text) Assessment: Raza Sagastume 72M w/ hx of ESRD on HD, HTN, prostate CA, HIV on HAART, history of osteomyelitis of left first toe S/P amputation (2015), gout, history of left foot ulcers, history of pyelonephritis with E. coli bacteremia, S/P left foot 3rd digit chronic osteomyelitis S/P amputation and debridement, severe PAD S/P angioplasty of the left tibial artery, s/p appendectomy and adhesion lysis (discharged 11/21/17) was sent in to [facility] because fever and rapid heart rate at dialysis center. Severe Enteritis, ddx infectious, ischemic Colitis Diarrhea, c.diff neg, r/o infectous etiology, ischemic (mesentery stenosis) Plan: -recommend CT angio of abd prior to dialysis -stool cultures -continue abx -blood cultures pending -fecal calprotectin -diet as tolerated -dialysis yesterday -will continue to follow D/W Dr. Leonardo <Finesse Leonardo - Last Filed: 12/11/17 12:17> Meds - Medications Medications: Current Medications Abacavir Sulfate (Ziagen) 300 mg PO DAILY [facility] PRN Reason: Protocol Last Admin: 12/11/17 09:25 Dose: 300 mg Acetaminophen (Tylenol 325mg Tab) 650 mg PO Q4H PRN PRN Reason: Fever >100.4 F Last Admin: 12/09/17 10:27 Dose: 650 mg Allopurinol (Zyloprim) 100 mg PO DAILY [facility] Last Admin: 12/11/17 09:25 Dose: 100 mg Calcium/Vitamin D (Oscal-D 250 Mg-125 Units Tab) 1 tab PO DAILY [facility] Last Admin: 12/11/17 09:25 Dose: 1 tab Cholecalciferol (Vitamin D) 1,000 intlu PO DAILY [facility] Last Admin: 12/11/17 09:25 Dose: 1,000 intlu Dextrose (Dextrose 50% Inj) 50 ml IVP PRN PRN PRN Reason: Low blood sugar Last Admin: 12/10/17 22:10 Dose: 50 ml Meropenem 500 mg/ Sodium (Chloride) 50 mls @ 100 mls/hr IVPB 1400 [facility] PRN Reason: Protocol Stop: 12/18/17 17:13 Last Admin: 12/10/17 15:13 Dose: Not Given Potassium Chloride (Potassium Chloride 10 Meq/100 Ml) 10 meq in 100 mls @ 50 mls/hr IVPB Q2H [facility] Stop: 12/11/17 12:44 Last Admin: 12/11/17 09:26 Dose: 50 mls/hr Dextrose/Sodium Chloride (Dextrose 5%/0.9% Ns 1000 Ml) 1,000 mls @ 30 mls/hr IV .Q24H [facility] Insulin Human Regular (Humulin R Med) 0 units SC ACHS [facility] PRN Reason: Protocol Last Admin: 12/11/17 11:38 Dose: Not Given Metoprolol Succinate (Toprol Xl) 25 mg PO DAILY [facility] Last Admin: 12/11/17 09:43 Dose: 25 mg Dolutegravir Sodium [Tivicay] 50 Mg ( Home Med) 50 mg PO DAILY [facility] Last Admin: 12/11/17 09:47 Dose: Not Given Lamivudine [Epivir Hbv] 100 Mg ( Home Med) 100 mg PO DAILY [facility] Last Admin: 12/11/17 09:47 Dose: Not Given Tamsulosin HCl (Flomax) 0.4 mg PO DAILY [facility] Last Admin: 12/11/17 09:25 Dose: 0.4 mg Vitamin B Complex/Vit C/Folic Acid (Nephro-Christel) 1 tab PO 0800 [facility] Last Admin: 12/11/17 09:25 Dose: 1 tab Results - Vital Signs Recent Vital Signs: Last Vital Signs Temp 99.3 F 12/11/17 06:00 Pulse 107 H 12/11/17 09:43 Resp 20 12/11/17 06:00 BP 111/63 12/11/17 06:00 Pulse Ox 98 12/11/17 06:00 - Labs Result Diagrams: 12/11/17 07:00 12/11/17 06:30 Labs: Laboratory Results - last 24 hr 12/10/17 12/10/17 12/10/17 11:39 21:03 22:02 WBC RBC Hgb Hct MCV MCH MCHC RDW Plt Count MPV Sodium Potassium Chloride Carbon Dioxide Anion Gap BUN Creatinine Est GFR ( Amer) Est GFR (Non-Af Amer) POC Glucose (mg/dL) 84 < 20 L* 22 L* Random Glucose Calcium Phosphorus Total Bilirubin AST ALT Alkaline Phosphatase Total Protein Albumin Globulin Albumin/Globulin Ratio 12/10/17 12/11/17 12/11/17 22:46 06:30 07:00 WBC 14.0 H RBC 2.77 L Hgb 8.1 L Hct 24.8 L MCV 89.5 MCH 29.2 MCHC 32.7 RDW 18.3 H Plt Count 291 MPV 10.4 Sodium 137 Potassium 3.0 L Chloride 98 Carbon Dioxide 32 Anion Gap 11 BUN 28 H Creatinine 5.0 H Est GFR ( Amer) 14 Est GFR (Non-Af Amer) 11 POC Glucose (mg/dL) 132 H Random Glucose 114 H Calcium 7.9 L Phosphorus 2.9 Total Bilirubin 0.5 AST 46 ALT 20 Alkaline Phosphatase 80 Total Protein 5.8 Albumin 2.4 L Globulin 3.4 Albumin/Globulin Ratio 0.7 L 12/11/17 08:59 WBC RBC Hgb Hct MCV MCH MCHC RDW Plt Count MPV Sodium Potassium Chloride Carbon Dioxide Anion Gap BUN Creatinine Est GFR ( Amer) Est GFR (Non-Af Amer) POC Glucose (mg/dL) 55 L Random Glucose Calcium Phosphorus Total Bilirubin AST ALT Alkaline Phosphatase Total Protein Albumin Globulin Albumin/Globulin Ratio Attending/Attestation - Attestation I have personally seen and examined this patient.: Yes I have fully participated in the care of the patient.: Yes I have reviewed all pertinent clinical information: Yes Notes (Text): 12/11/17 12:15 72 year old male with h/o ESRD on HD, HIV, HTN, Prostate ca, OM s/p amputation, Pyleonrphritis, PAD s/p angioplasty, SBO s/p surgery admitted with abdominal pain, diarrhea, found to have severe enteritis in the small bowel. DDx includes infectious, ischemic, and inflammatory etiologies. Considering medical history, concern is for ischemic enteritis. Recommend checking lactate. Check CT angio abdomen to eval mesenteric vasculature. Stool studies to eval for infectious/ inflammatory conditions. Recommend broad spectrum abx and bowel rest as well as supportive measures in the meantime. Recommend surgical consultation.
--- NOTE | 2017-12-11 11:56 | CARD ---
APPROVED REPORT EXAM: Two-dimensional and M-mode echocardiogram with Doppler and color Doppler. INDICATION R/O ENDOCARDITIS 2D DIMENSIONS IVSd1.1 (0.7-1.1cm)LVDd4.4 (3.9-5.9cm) PWd1.5 (0.7-1.1cm)LVDs3.1 (2.5-4.0cm) FS (%) 29.0 %LVEF (%)55.9 (>50%) M-Mode DIMENSIONS Aortic Root4.00 (2.2-3.7cm)Aortic Cusp Exc.1.30 (1.5-2.0cm) Aortic Valve AoV Peak Yhgqplgq967.0cm/sAoV VTI33.9cmAO Peak GR.25mmHg LVOT Peak Amvxjidi272.0cm/sLVOT VTI23.40cmAO Mean GR.12mmHg AI P 1/2 [id number] Mitral Valve MV E Enxkpiyy19.7cm/sMV A Isdpvcyv649.0cm/sE/A ratio0.7 TDI Lateral E' Peak V11.40cm/sMedial E' Peak V8.87cm/sE/Lateral E'7.3 E/Medial E'9.3 Pulmonary Valve PV Peak Pvkhfypo13.9cm/sPV Peak Grad.3mmHg Tricuspid Valve TR Peak Wuoopdmv800an/sRAP [id number] Peak Gr.46mmHg [id number] LEFT VENTRICLE The left ventricle is normal size. There is mild concentric left ventricular hypertrophy. The left ventricular function is normal.EF-55% There is normal LV segmental wall motion. Transmitral Doppler flow pattern is Grade III-reversible restrictive diastolic dysfunction. No left ventricle thrombus noted on this study. There is no ventricular septal defect visualized. There is no left ventricular aneurysm. There is no mass noted in the left ventricle. RIGHT VENTRICLE The right ventricle is normal size. There is normal right ventricular wall thickness. The right ventricular systolic function is normal. ATRIA The left atrium is borderline dilated. The right atrium size is normal. The interatrial septum is intact with no evidence for an atrial septal defect. AORTIC VALVE The aortic valve is calcified and displays decreased opening. There is mild to moderate aortic regurgitation. There is mild to moderate valvular aortic stenosis. There is no aortic valvular vegetation. MITRAL VALVE The mitral valve is calcified but opens well. Mitral annular calcification is moderate. Mitral regurgitation is mild to moderate. There is no mitral valve stenosis. There is no evidence of mitral valve prolapse. TRICUSPID VALVE The tricuspid valve leaflets are thickened , but open well. There is moderate tricuspid regurgitation.RVSP-56 mmof hg. There is no tricuspid valve stenosis. There is no tricuspid valve prolapse or vegetation. PULMONIC VALVE The pulmonary valve is normal in structure. There is trace pulmonic valvular regurgitation. There is no pulmonic valvular stenosis. GREAT VESSELS The aortic root is normal in size. The ascending aorta is normal in size. The pulmonary artery is normal. The IVC is normal in size and collapses >50% with inspiration. PERICARDIAL EFFUSION There is moderate left pleural effusion. There is a trace pericardial effusion. <Conclusion> The left ventricle is normal size. There is mild concentric left ventricular hypertrophy. The left ventricular function is normal.EF-55% There is mild to moderate aortic regurgitation. There is mild to moderate valvular aortic stenosis. Mitral regurgitation is mild to moderate. There is moderate tricuspid regurgitation.RVSP-56 mmof hg. The IVC is normal in size and collapses >50% with inspiration. There is moderate left pleural effusion. There is a trace pericardial effusion. No Obvious vegetation noted in this study.
--- NOTE | 2017-12-11 15:29 | PN ---
DATE: 12/11/2017 CARDIOLOGY FOLLOWUP SUBJECTIVE: The patient is without complaints. PHYSICAL EXAMINATION: VITAL SIGNS: Stable. The patient is afebrile. NECK: Negative JVD. LUNGS: Decreased breath sounds. HEART: Reveals S1, S2. EXTREMITIES: Status post amputation of lower extremities. LABORATORY DATA: Hemoglobin is 8.1 with a white count of 14,000. Chemistries, glucose is 114. Echocardiogram reveals no obvious vegetations, there is mitral regurgitation as well as aortic sclerosis with aortic insufficiency with good LV function. IMPRESSION: 1. Gram-negative sepsis. 2. Peripheral vascular disease. 3. End-stage renal disease. 4. Anemia. 5. Aortic insufficiency with aortic valve sclerosis. 6. Mitral regurgitation. 7. Chronic obstructive pulmonary disease. Given these findings, the patient is to continue on IV antibiotics for his gram-negative sepsis. We will discontinue telemetry today. Emmanuel Weller MD
[2017-12-11] MEDS: Meropenem 500 MG in Sodium Chloride 0.9% 50 ML IVPB SCH (15:37)
[2017-12-11] MEDS: Dextrose 5%/0.9% NS 1,000 ML IV SCH (16:22)
--- NOTE | 2017-12-11 16:51 | CP.PCM.PN ---
Subjective - Date & Time of Evaluation Date of Evaluation: 12/11/17 Time of Evaluation: 16:49 - Subjective Subjective: Nephrology Consultation Note: Assessment: critical GNR SEPSIS ? source (bowel versus permacath) Enteritis and Colitis Hypokalemia, hypoglycemia recent High grade SBO s/p surgery, appendectomy: imporved hx of prostate CA Hypertensive Chronic Kidney Disease (I12.9) ESRD on HD via permacath (TTS) Anemia (D64.9), HTN (I12.9) HIV on HAART, PVD s/p angioplasty s/p Rt AKA Plan plan for HD today as per TTS schedule. nephrovite 1 tab/day. aransep 60 mcg weekly for anemia 12/10/17. PRBC as needed . last Hb 8.1 hold phos binders as pt with limited oral intake Hypertension control with meds as ordered. hold nifedipine as BP on low side appreciate ID input started D5NS as pt with limited oral intake and hypoglycemia GI following Dose meds/antibiotics for ESRD status. Avoid fleets enema/magnesium based laxatives. Further work up/management as per primary team. from renal perspective, pt can undergo CT angiogram without the need for post- procedure dialysis Thanks for allowing me to participate in care of your patient. Please call if any Qs. d/w team Dr Yandel Arechiga Office: [phone] HPI: Pt is a 72 y/o M with hx of HIV on HAART, PVD s/p angioplasty, Rt AKA, hypertension (10-15 years), ESRD on HD (via permacath) [place] [facility] [place] toe amput[place], prostate CA presented with pain abdomen and bacteremia renal consult for ESRD management pt doesn't feel well. says everything is bothering him as lower ext pain, groin pain. says alcala catheter was removed 2 weeks ago ROS: denies CP/SOB. all other neg except as in HPI. c/o abdomen pain. s/p CT guided aspiration 11/19/17 feels same with pain in heels, ankle Physical Examination: seen on HD General Appearance: comfortable, in no acute respiratory distress, facial muscles wasted, ill appearing Vitals reviewed and noted as below Head; Atraumatic, normocephalic ENT: no ulcers no thrush. Tongue is midline dry. Oropharynx: no rash or ulcers. EYES: Pupils are equal, round and reactive to light accommodation. Eye muscles and extraocular movement intact. Sclera is anicteric. Neck; supple no lymphadenopathy, no thyromegaly or bruit Lungs: Normal respiratory rate/effort. Breath sounds bilateral clear Heart: Normal rate. s1s2 normal. No rub or gallop. Extremities: no edema. No varicose veins. s/p Rt AKA Neurological: Patient is alert oriented x 3 follow commands,. no focal deficit Skin: Warm and dry. Normal turgor. Palpitation: Normal elasticity for age. Abdomen: Abdomen is soft. distended and tender in lower abdomen area with guarding. Psych: limited insight. flat affect MSK: Digits and nails normal, left foot toe amputations in past. Rt AKA. : kidney not palpable. Access: permacath and maturing left AVF Labs/imaging/EKG reviewed. Past medical history, past surgical history, family history, social history, allergy reviewed and noted as below Family hx: sister was on dialysis. Rest non-contributory Objective - Vital Signs/Intake and Output Vital Signs (last 24 hours): Temp Pulse Resp BP Pulse Ox 99.3 F 110 H 20 111/63 98 12/11/17 06:00 12/11/17 10:00 12/11/17 06:00 12/11/17 06:00 12/11/17 06:00 Intake and Output: 12/11/17 12/11/17 06:59 18:59 Intake Total 120 Output Total 0 Balance 120 - Medications Medications: Current Medications Abacavir Sulfate (Ziagen) 300 mg PO DAILY [facility]WAIN PRN Reason: Protocol Last Admin: 12/11/17 09:25 Dose: 300 mg Acetaminophen (Tylenol 325mg Tab) 650 mg PO Q4H PRN PRN Reason: Fever >100.4 F Last Admin: 12/09/17 10:27 Dose: 650 mg Allopurinol (Zyloprim) 100 mg PO DAILY [facility] Last Admin: 12/11/17 09:25 Dose: 100 mg Calcium/Vitamin D (Oscal-D 250 Mg-125 Units Tab) 1 tab PO DAILY [facility] Last Admin: 12/11/17 09:25 Dose: 1 tab Cholecalciferol (Vitamin D) 1,000 intlu PO DAILY [facility] Last Admin: 12/11/17 09:25 Dose: 1,000 intlu Dextrose (Dextrose 50% Inj) 50 ml IVP PRN PRN PRN Reason: Low blood sugar Last Admin: 12/10/17 22:10 Dose: 50 ml Heparin Sodium (Porcine) (Heparin) 2,400 units ICV ONCE [facility] Last Admin: 12/11/17 14:43 Dose: 2,400 units Heparin Sodium (Porcine) (Heparin) 2,200 units ICA ONCE [facility] Last Admin: 12/11/17 14:43 Dose: 2,200 units Meropenem 500 mg/ Sodium (Chloride) 50 mls @ 100 mls/hr IVPB 1400 DWAIN PRN Reason: Protocol Stop: 12/18/17 17:13 Last Admin: 12/11/17 15:37 Dose: 100 mls/hr Dextrose/Sodium Chloride (Dextrose 5%/0.9% Ns 1000 Ml) 1,000 mls @ 30 mls/hr IV .Q24H [facility] Last Admin: 12/11/17 16:22 Dose: 30 mls/hr Insulin Human Regular (Humulin R Med) 0 units SC ACHS DWAIN PRN Reason: Protocol Last Admin: 12/11/17 11:38 Dose: Not Given Metoprolol Succinate (Toprol Xl) 25 mg PO DAILY [facility] Last Admin: 12/11/17 09:43 Dose: 25 mg Dolutegravir Sodium [Tivicay] 50 Mg ( Home Med) 50 mg PO DAILY [facility] Last Admin: 12/11/17 09:47 Dose: Not Given Lamivudine [Epivir Hbv] 100 Mg ( Home Med) 100 mg PO DAILY [facility] Last Admin: 12/11/17 09:47 Dose: Not Given Tamsulosin HCl (Flomax) 0.4 mg PO DAILY [facility] Last Admin: 12/11/17 09:25 Dose: 0.4 mg Vitamin B Complex/Vit C/Folic Acid (Nephro-Christel) 1 tab PO 0800 [facility] Last Admin: 12/11/17 09:25 Dose: 1 tab - Labs Labs: 12/11/17 07:00 12/11/17 06:30 PT 17.7 SECONDS (9.4-12.5) H 12/08/17 17:00 INR 1.54 (0.93-1.08) H 12/08/17 17:00 APTT 41.8 Seconds (25.1-36.5) H 12/08/17 17:00
[2017-12-11] MEDS: Dextrose 50% SYRINGE Inj (50 ml) IVP PRN (17:12)
--- NOTE | 2017-12-12 02:20 | PN ---
DATE: 12/11/2017 SUBJECTIVE: Patient is in bed, in no acute distress, nontoxic. No fevers and chills. PHYSICAL EXAMINATION: VITAL SIGNS: Temperature is 98, blood pressure is 120/70, respiratory rate of 16. HEENT: Unremarkable. NECK: Supple. LUNGS: Have decreased breath sounds. HEART: Normal S1, S2. ABDOMEN: Soft. LABORATORY EXAMINATION: Reveals the patient to have white count of 14,000, hemoglobin of 8, platelets of 291. Chemistries reveals a BUN of 28, creatinine of 5.0. Serology is noted. Influenza is negative. Microbiology reveals E. coli ESBL in blood cultures, E. coli in one bottle. The repeat blood cultures are negative and C. diff antigen and toxin are both negative. The patient also had a CAT scan of the abdomen and pelvis. Bilateral infiltrate, bibasilar infiltrate, severe mural thickening of the small bowel portion of the colon consistent with enteritis and colitis, no collection. Dr. Arechiga's note is reviewed. ASSESSMENT AND PLAN: This is a 72-year-old male who was seen early this morning with sepsis with Escherichia coli extended spectrum beta-lactamases bacteremia, enteritis and colitis, probable catheter associated bacteremia. I doubt the enteritis is causing extended spectrum beta-lactamases bacteremia, history of small bowel obstruction status post exploratory laparotomy and history of repair of umbilical hernia and appendectomy, urinary tract infection and with peripheral vascular disease, peripheral arterial disease, angioplasty and history of influenza. In recent hospitalization, patient does have a human immunodeficiency virus and we will continue the meropenem. The patient had ultrasound of the upper extremity. No evidence of deep venous thrombosis in the right upper extremity and had an echo also. He is on his human immunodeficiency virus medications. Case was discussed with Dr. Arechiga. We will follow closely with you. Cesar Flowers MD
[2017-12-12 07:32] LABS: HEMOGLOBIN 8.1 g/dL (14.0-18.0); MEAN CELL VOLUME 91.1 fl (80.0-105.0); MEAN CORPUSCULAR HEMOGLOBIN 28.8 pg (25.0-35.0); MEAN CORPUSCULAR HGB CONC 31.6 g/dl (31.0-37.0); MEAN PLATELET VOLUME 10.1 fl (7.0-11.0); RBC 2.81 10^6/uL (3.5-6.1); RED CELL DISTRIBUTION WIDTH 18.3 % (11.5-14.5)
[2017-12-12] MEDS: Insulin Reg-MEDIUM-Coverage SC SCH ×4 (08:00→22:42)
[2017-12-12 08:10] LABS: ALB/GLOB RATIO 0.7 (1.1-1.8); ALBUMIN 2.6 g/dL (3.0-4.8); CALCIUM 8.3 mg/dL (8.4-10.5)
--- NOTE | 2017-12-12 09:00 | PN ---
DATE: SUBJECTIVE: I saw Raza resting comfortably in bed. He slept well. He is in good spirits. He wants organizational psychologist to look at his foot. I will get a organizational psychologist to come. He knows Dr. Caldwell, he is currently on. MEDICATIONS: IV fluids, dextrose, tamsulosin, heparin, insulin coverage, Epivir, Merrem IV, folic acid, vitamins, potassium, metoprolol, Tylenol, vitamin D, Ziagen and Epivir. PHYSICAL EXAMINATION: VITAL SIGNS: He has a 99 temp, 100 pulse, 145/63 blood pressure, 20 respiratory rate, 98% O2 sat on room air. HEENT: His head is atraumatic, normocephalic. HEART: Regular rate. LUNGS: Decreased breath sounds, but clear. ABDOMEN: Soft, nontender. 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 He has a sepsis going on, colitis, end-stage renal disease. He has a history of prostate cancer; HIV; COPD; end-stage renal disease, on dialysis. I will call in Podiatry for him. LABORATORY DATA: He has a 13,000 white count, 8.1 hemoglobin, 25.6 hematocrit with a 302 platelets. He has a 142 sodium, potassium is 2.7. I have ordered 2 K riders for him to help that. BUN 17, creatinine 3.4, on dialysis. GFR is 18, sugar is 111, calcium is 8.3, total bili is 0.3, AST is 42, ALT is 20, alk phos 111. ASSESSMENT AND PLAN: We will continue aggressive treatment and care. He had Escherichia coli in the urine and no Clostridium difficile at this time. We will continue aggressive treatment and care as per Infectious Disease, Renal, GI and Cardiology. Parag Brownlee DO
[2017-12-12] MEDS: Multivitamin Vitamin B Complex (Nephro-Vite) Tab PO SCH (09:01)
[2017-12-12] MEDS: Cholecalciferol 1,000 INTLU TAB PO SCH (09:01)
[2017-12-12] MEDS: Calcium-Vit D 250 mg-125 Units Tab UD PO SCH (09:01)
[2017-12-12] MEDS: Metoprolol Succinate 25 mg XL Tab PO SCH (09:02)
[2017-12-12] MEDS: LAMIVUDINE 100 MG PO SCH (10:00)
--- NOTE | 2017-12-12 11:07 | CP.PCM.CON ---
<Mirta Driscoll - Last Filed: 12/12/17 10:58> History of Present Illness - History of Present Illness History of Present Illness: Podiatry consult note- Dr. Caldwell/Dr. Dunn 72 year old male with PMHx of PAD, HIV, prostate cancer, HTN, HLD, GERD, gout, ESRD on HD, OM s/p amputation left 1-3 digits seen at bedside for left heel deep tissue injury. Patient reports that he was brought to the hospital for rapid heart rate. Patient denies of having any pain to his LE today. Reports that he had a fever during his admission but denies of having C/N/V/SOB/CP/ headache/dizziness. Denies of having any numbness and tingling in his LE today. Denies of any new pedal complains. PMHx: PAD, HIV, prostate cancer, HTN, HLD, GERD, gout, ESRD on HD, OM PSHx: amputation left 1-3 digits, angioplasty of the left tibial artery, appendectomy SHx: Deneis etoh, tobacco or drugs Allergies: N.K.D.A Review of Systems - Constitutional Constitutional: As Per HPI Past Patient History - Infectious Disease Hx of Infectious Diseases: None - Tetanus Immunizations Tetanus Immunization: Up to Date - Past Medical History & Family History Past Medical History?: Yes - Past Social History Smoking Status: Never Smoked - CARDIAC Hx Cardiac Disorders: Yes Hx Hypertension: Yes - PULMONARY Hx Chronic Obstructive Pulmonary Disease (COPD): Yes - NEUROLOGICAL Hx Neurological Disorder: Yes - HEENT Hx HEENT Problems: No - RENAL Hx Chronic Kidney Disease: Yes - ENDOCRINE/METABOLIC Hx Diabetes Mellitus Type 2: Yes - HEMATOLOGICAL/ONCOLOGICAL Hx Cancer: Yes (prostate) - INTEGUMENTARY Hx Dermatological Problems: Yes Other/Comment: dry gangrene and osteomyelitis L foot - MUSCULOSKELETAL/RHEUMATOLOGICAL Hx Falls: No - GASTROINTESTINAL Hx Gastroesophageal Reflux: Yes - GENITOURINARY/GYNECOLOGICAL Hx Genitourinary Disorders: Yes - PSYCHIATRIC Hx Psychophysiologic Disorder: No - SURGICAL HISTORY Hx Amputation: Yes (Right BKA) Other/Comment: Abd Sx - ANESTHESIA Hx Anesthesia Reactions: No Hx Malignant Hyperthermia: No Meds Allergies/Adverse Reactions: Allergies Allergy/AdvReac Type Severity Reaction Status Date / Time banana Allergy SWELLING Verified 12/08/17 16:48 shrimp Allergy SWELLING Verified 12/08/17 16:48 - Medications Medications: Current Medications Abacavir Sulfate (Ziagen) 300 mg PO DAILY [facility] PRN Reason: Protocol Last Admin: 12/12/17 09:01 Dose: 300 mg Acetaminophen (Tylenol 325mg Tab) 650 mg PO Q4H PRN PRN Reason: Fever >100.4 F Last Admin: 12/09/17 10:27 Dose: 650 mg Allopurinol (Zyloprim) 100 mg PO DAILY [facility] Last Admin: 12/12/17 09:01 Dose: 100 mg Calcium/Vitamin D (Oscal-D 250 Mg-125 Units Tab) 1 tab PO DAILY [facility] Last Admin: 12/12/17 09:01 Dose: 1 tab Cholecalciferol (Vitamin D) 1,000 intlu PO DAILY [facility] Last Admin: 12/12/17 09:01 Dose: 1,000 intlu Dextrose (Dextrose 50% Inj) 50 ml IVP PRN PRN PRN Reason: Low blood sugar Last Admin: 12/11/17 17:12 Dose: 50 ml Heparin Sodium (Porcine) (Heparin) 2,400 units ICV ONCE [facility] Last Admin: 12/11/17 14:43 Dose: 2,400 units Heparin Sodium (Porcine) (Heparin) 2,200 units ICA ONCE [facility] Last Admin: 12/11/17 14:43 Dose: 2,200 units Meropenem 500 mg/ Sodium (Chloride) 50 mls @ 100 mls/hr IVPB 1400 DWAIN PRN Reason: Protocol Stop: 12/18/17 17:13 Last Admin: 12/11/17 15:37 Dose: 100 mls/hr Dextrose/Sodium Chloride (Dextrose 5%/0.9% Ns 1000 Ml) 1,000 mls @ 30 mls/hr IV .Q24H [facility] Last Admin: 12/11/17 16:22 Dose: 30 mls/hr Potassium Chloride (Potassium Chloride 10 Meq/100 Ml) 10 meq in 100 mls @ 50 mls/hr IVPB Q2H [facility] Stop: 12/12/17 12:29 Last Admin: 12/12/17 10:29 Dose: 50 mls/hr Insulin Human Regular (Humulin R Med) 0 units SC ACHS [facility]WAIN PRN Reason: Protocol Last Admin: 12/12/17 08:00 Dose: Not Given Metoprolol Succinate (Toprol Xl) 25 mg PO DAILY [facility] Last Admin: 12/12/17 09:02 Dose: 25 mg Dolutegravir Sodium [Tivicay] 50 Mg ( Home Med) 50 mg PO DAILY [facility] Last Admin: 12/11/17 09:47 Dose: Not Given Lamivudine [Epivir Hbv] 100 Mg ( Home Med) 100 mg PO DAILY [facility] Last Admin: 12/11/17 09:47 Dose: Not Given Tamsulosin HCl (Flomax) 0.4 mg PO DAILY [facility] Last Admin: 12/12/17 09:02 Dose: 0.4 mg Vitamin B Complex/Vit C/Folic Acid (Nephro-Christel) 1 tab PO 0800 [facility] Last Admin: 12/12/17 09:01 Dose: 1 tab Physical Exam - Constitutional Appears: Well, Non-toxic, No Acute Distress - Extremities Exam Additional comments: Phong IGNACIO focused exam: VASC: DP/PT pulses palpable 1/4. Temperature gradient warm to cool. CFT < 3 sec to all digits. No pedal edema noted DERM: Stage 1 non-blanchable erythematous pressure ulceration noted to heel. No open lesions, no ecchymosis, skin and soft tissue intact, no clinical suspicion of active infection NEURO: Protective sensation grossly diminished ORTHO: mild tenderness to palpation of L plantar heel. 1st-3rd digit amputations noted to L foot. Charcot midfoot changes - Neurological Exam Neurological exam: Alert, Oriented x3 - Psychiatric Exam Psychiatric exam: Normal Affect, Normal Mood Results - Vital Signs Recent Vital Signs: Last Vital Signs Temp 98.1 F 12/12/17 06:00 Pulse 107 H 12/12/17 06:00 Resp 20 12/12/17 06:00 BP 135/72 12/12/17 06:00 Pulse Ox 93 L 12/12/17 06:00 - Labs Result Diagrams: 12/12/17 07:10 12/12/17 07:10 Labs: Laboratory Results - last 24 hr 12/11/17 12/11/17 12/11/17 08:59 16:59 18:21 WBC RBC Hgb Hct MCV MCH MCHC RDW Plt Count MPV Sodium Potassium Chloride Carbon Dioxide Anion Gap BUN Creatinine Est GFR ( Amer) Est GFR (Non-Af Amer) POC Glucose (mg/dL) 55 L 44 L 70 Random Glucose Calcium Total Bilirubin AST ALT Alkaline Phosphatase Total Protein Albumin Globulin Albumin/Globulin Ratio 12/11/17 12/12/17 12/12/17 21:21 06:23 07:10 WBC 13.0 H RBC 2.81 L Hgb 8.1 L Hct 25.6 L MCV 91.1 MCH 28.8 MCHC 31.6 RDW 18.3 H Plt Count 302 MPV 10.1 Sodium Potassium Chloride Carbon Dioxide Anion Gap BUN Creatinine Est GFR ( Amer) Est GFR (Non-Af Amer) POC Glucose (mg/dL) 98 97 Random Glucose Calcium Total Bilirubin AST ALT Alkaline Phosphatase Total Protein Albumin Globulin Albumin/Globulin Ratio 12/12/17 07:10 WBC RBC Hgb Hct MCV MCH MCHC RDW Plt Count MPV Sodium 142 Potassium 2.7 L* Chloride 103 Carbon Dioxide 30 Anion Gap 11 BUN 17 Creatinine 3.4 H Est GFR ( Amer) 22 Est GFR (Non-Af Amer) 18 POC Glucose (mg/dL) Random Glucose 111 H Calcium 8.3 L Total Bilirubin 0.3 AST 42 ALT 20 Alkaline Phosphatase 110 Total Protein 6.2 Albumin 2.6 L Globulin 3.6 Albumin/Globulin Ratio 0.7 L Assessment & Plan - Assessment and Plan (Free Text) Assessment: 72 year old male patient with left heel stage 1 pressure ulceration secondary to bed bound status Plan: Pt seen and evaluated with attending Dr. Dunn Labs and vitals reviewed Optifoam applied to the L heel Multipodus boot ordered - to be worn at all times in bed Thank you for the podiatry consult and allowing to take part in patient care Will follow patient while in-house - Date & Time Date: 12/12/17 Time: 11:11 <Jerrod Dunn - Last Filed: 12/12/17 15:20> Meds - Medications Medications: Current Medications Abacavir Sulfate (Ziagen) 300 mg PO DAILY [facility] PRN Reason: Protocol Last Admin: 12/12/17 09:01 Dose: 300 mg Acetaminophen (Tylenol 325mg Tab) 650 mg PO Q4H PRN PRN Reason: Fever >100.4 F Last Admin: 12/09/17 10:27 Dose: 650 mg Allopurinol (Zyloprim) 100 mg PO DAILY [facility] Last Admin: 12/12/17 09:01 Dose: 100 mg Calcium/Vitamin D (Oscal-D 250 Mg-125 Units Tab) 1 tab PO DAILY [facility] Last Admin: 12/12/17 09:01 Dose: 1 tab Cholecalciferol (Vitamin D) 1,000 intlu PO DAILY [facility] Last Admin: 12/12/17 09:01 Dose: 1,000 intlu Dextrose (Dextrose 50% Inj) 50 ml IVP PRN PRN PRN Reason: Low blood sugar Last Admin: 12/11/17 17:12 Dose: 50 ml Heparin Sodium (Porcine) (Heparin) 2,400 units ICV ONCE [facility] Last Admin: 12/11/17 14:43 Dose: 2,400 units Heparin Sodium (Porcine) (Heparin) 2,200 units ICA ONCE [facility] Last Admin: 12/11/17 14:43 Dose: 2,200 units Meropenem 500 mg/ Sodium (Chloride) 50 mls @ 100 mls/hr IVPB 1400 [facility]WAIN PRN Reason: Protocol Stop: 12/18/17 17:13 Last Admin: 12/12/17 15:02 Dose: 100 mls/hr Dextrose/Sodium Chloride (Dextrose 5%/0.9% Ns 1000 Ml) 1,000 mls @ 30 mls/hr IV .Q24H [facility] Last Admin: 12/11/17 16:22 Dose: 30 mls/hr Insulin Human Regular (Humulin R Med) 0 units SC ACHS DWAIN PRN Reason: Protocol Last Admin: 12/12/17 08:00 Dose: Not Given Metoprolol Succinate (Toprol Xl) 25 mg PO DAILY [facility] Last Admin: 12/12/17 09:02 Dose: 25 mg Dolutegravir Sodium [Tivicay] 50 Mg ( Home Med) 50 mg PO DAILY [facility] Last Admin: 12/11/17 09:47 Dose: Not Given Lamivudine [Epivir Hbv] 100 Mg ( Home Med) 100 mg PO DAILY [facility] Last Admin: 12/11/17 09:47 Dose: Not Given Tamsulosin HCl (Flomax) 0.4 mg PO DAILY [facility] Last Admin: 12/12/17 09:02 Dose: 0.4 mg Vitamin B Complex/Vit C/Folic Acid (Nephro-Christel) 1 tab PO 0800 [facility] Last Admin: 12/12/17 09:01 Dose: 1 tab Results - Vital Signs Recent Vital Signs: Last Vital Signs Temp 98.1 F 12/12/17 06:00 Pulse 107 H 12/12/17 06:00 Resp 20 12/12/17 06:00 BP 135/72 12/12/17 06:00 Pulse Ox 93 L 12/12/17 06:00 - Labs Result Diagrams: 12/12/17 07:10 12/12/17 07:10 Labs: Laboratory Results - last 24 hr 12/11/17 12/11/17 12/11/17 16:59 18:21 21:21 WBC RBC Hgb Hct MCV MCH MCHC RDW Plt Count MPV Sodium Potassium Chloride Carbon Dioxide Anion Gap BUN Creatinine Est GFR ( Amer) Est GFR (Non-Af Amer) POC Glucose (mg/dL) 44 L 70 98 Random Glucose Calcium Total Bilirubin AST ALT Alkaline Phosphatase Lactate Dehydrogenase Total Protein Albumin Globulin Albumin/Globulin Ratio 12/12/17 12/12/17 12/12/17 06:23 07:10 07:10 WBC 13.0 H RBC 2.81 L Hgb 8.1 L Hct 25.6 L MCV 91.1 MCH 28.8 MCHC 31.6 RDW 18.3 H Plt Count 302 MPV 10.1 Sodium 142 Potassium 2.7 L* Chloride 103 Carbon Dioxide 30 Anion Gap 11 BUN 17 Creatinine 3.4 H Est GFR ( Amer) 22 Est GFR (Non-Af Amer) 18 POC Glucose (mg/dL) 97 Random Glucose 111 H Calcium 8.3 L Total Bilirubin 0.3 AST 42 ALT 20 Alkaline Phosphatase 110 Lactate Dehydrogenase Total Protein 6.2 Albumin 2.6 L Globulin 3.6 Albumin/Globulin Ratio 0.7 L 12/12/17 12/12/17 07:10 11:38 WBC RBC Hgb Hct MCV MCH MCHC RDW Plt Count MPV Sodium Potassium Chloride Carbon Dioxide Anion Gap BUN Creatinine Est GFR ( Amer) Est GFR (Non-Af Amer) POC Glucose (mg/dL) 71 Random Glucose Calcium Total Bilirubin AST ALT Alkaline Phosphatase Lactate Dehydrogenase 730 H Total Protein Albumin Globulin Albumin/Globulin Ratio Attending/Attestation - Attestation I have personally seen and examined this patient.: Yes I have fully participated in the care of the patient.: Yes I have reviewed all pertinent clinical information: Yes
--- NOTE | 2017-12-12 12:49 | CP.PCM.PN ---
<Tania Driscoll - Last Filed: 12/12/17 12:53> Subjective - Date & Time of Evaluation Date of Evaluation: 12/12/17 Time of Evaluation: 11:00 - Subjective Subjective: PGY4 GI Follow-up +Abd pain Denies any BM since last night Denies any fever, chills or diaphoresis tolerating diet ROS: 12 point ROS conducted neg other than above Objective - Vital Signs/Intake and Output Vital Signs (last 24 hours): Temp Pulse Resp BP Pulse Ox 98.1 F 107 H 20 135/72 93 L 12/12/17 06:00 12/12/17 06:00 12/12/17 06:00 12/12/17 06:00 12/12/17 06:00 Intake and Output: 12/12/17 12/12/17 06:59 18:59 Intake Total 480 Balance 480 - Medications Medications: Current Medications Abacavir Sulfate (Ziagen) 300 mg PO DAILY [facility] PRN Reason: Protocol Last Admin: 12/12/17 09:01 Dose: 300 mg Acetaminophen (Tylenol 325mg Tab) 650 mg PO Q4H PRN PRN Reason: Fever >100.4 F Last Admin: 12/09/17 10:27 Dose: 650 mg Allopurinol (Zyloprim) 100 mg PO DAILY [facility] Last Admin: 12/12/17 09:01 Dose: 100 mg Calcium/Vitamin D (Oscal-D 250 Mg-125 Units Tab) 1 tab PO DAILY [facility] Last Admin: 12/12/17 09:01 Dose: 1 tab Cholecalciferol (Vitamin D) 1,000 intlu PO DAILY [facility] Last Admin: 12/12/17 09:01 Dose: 1,000 intlu Dextrose (Dextrose 50% Inj) 50 ml IVP PRN PRN PRN Reason: Low blood sugar Last Admin: 12/11/17 17:12 Dose: 50 ml Heparin Sodium (Porcine) (Heparin) 2,400 units ICV ONCE [facility] Last Admin: 12/11/17 14:43 Dose: 2,400 units Heparin Sodium (Porcine) (Heparin) 2,200 units ICA ONCE [facility] Last Admin: 12/11/17 14:43 Dose: 2,200 units Meropenem 500 mg/ Sodium (Chloride) 50 mls @ 100 mls/hr IVPB 1400 [facility] PRN Reason: Protocol Stop: 12/18/17 17:13 Last Admin: 12/11/17 15:37 Dose: 100 mls/hr Dextrose/Sodium Chloride (Dextrose 5%/0.9% Ns 1000 Ml) 1,000 mls @ 30 mls/hr IV .Q24H [facility] Last Admin: 12/11/17 16:22 Dose: 30 mls/hr Insulin Human Regular (Humulin R Med) 0 units SC ACHS [facility] PRN Reason: Protocol Last Admin: 12/12/17 08:00 Dose: Not Given Metoprolol Succinate (Toprol Xl) 25 mg PO DAILY [facility] Last Admin: 12/12/17 09:02 Dose: 25 mg Dolutegravir Sodium [Tivicay] 50 Mg ( Home Med) 50 mg PO DAILY [facility] Last Admin: 12/11/17 09:47 Dose: Not Given Lamivudine [Epivir Hbv] 100 Mg ( Home Med) 100 mg PO DAILY [facility] Last Admin: 12/11/17 09:47 Dose: Not Given Tamsulosin HCl (Flomax) 0.4 mg PO DAILY [facility] Last Admin: 12/12/17 09:02 Dose: 0.4 mg Vitamin B Complex/Vit C/Folic Acid (Nephro-Christel) 1 tab PO 0800 [facility] Last Admin: 12/12/17 09:01 Dose: 1 tab - Labs Labs: 12/12/17 07:10 12/12/17 07:10 PT 17.7 SECONDS (9.4-12.5) H 12/08/17 17:00 INR 1.54 (0.93-1.08) H 12/08/17 17:00 APTT 41.8 Seconds (25.1-36.5) H 12/08/17 17:00 - Constitutional Appears: Well, No Acute Distress - Head Exam Head Exam: ATRAUMATIC, NORMOCEPHALIC - Eye Exam Eye Exam: Normal appearance - ENT Exam ENT Exam: Mucous Membranes Moist, Normal Exam - Neck Exam Neck Exam: Normal Inspection - Respiratory Exam Respiratory Exam: Clear to Ausculation Bilateral, NORMAL BREATHING PATTERN. absent: Rales, Rhonchi, Wheezes, Respiratory Distress - Cardiovascular Exam Cardiovascular Exam: REGULAR RHYTHM, +S1, +S2 - GI/Abdominal Exam GI & Abdominal Exam: Soft, Tenderness, Normal Bowel Sounds. absent: Distended, Firm, Guarding, Hypoactive Bowel Sounds, Mass, Organomegaly, Rebound - Extremities Exam Extremities Exam: absent: Joint Swelling, Pedal Edema - Neurological Exam Neurological Exam: Alert, Awake, Oriented x3 - Psychiatric Exam Psychiatric exam: Normal Affect, Normal Mood - Skin Skin Exam: Dry, Intact, Normal Color, Warm Assessment and Plan - Assessment and Plan (Free Text) Assessment: Raza Sagastume 72M w/ hx of ESRD on HD, HTN, prostate CA, HIV on HAART, history of osteomyelitis of left first toe S/P amputation (2015), gout, history of left foot ulcers, history of pyelonephritis with E. coli bacteremia, S/P left foot 3rd digit chronic osteomyelitis S/P amputation and debridement, severe PAD S/P angioplasty of the left tibial artery, s/p appendectomy and adhesion lysis (discharged 11/21/17) was sent in to [facility] [place] because fever and rapid heart rate at dialysis center. Severe Enteritis, ddx infectious, ischemic Colitis Diarrhea, c.diff neg, r/o infectious etiology, ischemic (mesentery stenosis) Plan: -recommend CT angio of abd -stool cultures -continue abx -blood cultures pending -fecal calprotectin -diet as tolerated -dialysis yesterday -will continue to follow -c.diff neg D/W Dr. Leonardo <Finesse Leonardo - Last Filed: 12/12/17 21:03> Objective - Vital Signs/Intake and Output Vital Signs (last 24 hours): Temp Pulse Resp BP Pulse Ox 98.9 F 75 18 125/62 96 12/12/17 18:00 12/12/17 18:00 12/12/17 18:00 12/12/17 18:00 12/12/17 18:00 Intake and Output: 12/12/17 12/13/17 18:59 06:59 Intake Total 540 Balance 540 - Medications Medications: Current Medications Abacavir Sulfate (Ziagen) 300 mg PO DAILY [facility] PRN Reason: Protocol Last Admin: 12/12/17 09:01 Dose: 300 mg Acetaminophen (Tylenol 325mg Tab) 650 mg PO Q4H PRN PRN Reason: Fever >100.4 F Last Admin: 12/09/17 10:27 Dose: 650 mg Allopurinol (Zyloprim) 100 mg PO DAILY [facility] Last Admin: 12/12/17 09:01 Dose: 100 mg Calcium/Vitamin D (Oscal-D 250 Mg-125 Units Tab) 1 tab PO DAILY [facility] Last Admin: 12/12/17 09:01 Dose: 1 tab Cholecalciferol (Vitamin D) 1,000 intlu PO DAILY [facility] Last Admin: 12/12/17 09:01 Dose: 1,000 intlu Dextrose (Dextrose 50% Inj) 50 ml IVP PRN PRN PRN Reason: Low blood sugar Last Admin: 12/11/17 17:12 Dose: 50 ml Heparin Sodium (Porcine) (Heparin) 2,400 units ICV ONCE [facility] Last Admin: 12/11/17 14:43 Dose: 2,400 units Heparin Sodium (Porcine) (Heparin) 2,200 units ICA ONCE [facility] Last Admin: 12/11/17 14:43 Dose: 2,200 units Meropenem 500 mg/ Sodium (Chloride) 50 mls @ 100 mls/hr IVPB 1400 [facility] PRN Reason: Protocol Stop: 12/18/17 17:13 Last Admin: 12/12/17 15:02 Dose: 100 mls/hr Dextrose/Sodium Chloride (Dextrose 5%/0.9% Ns 1000 Ml) 1,000 mls @ 30 mls/hr IV .Q24H [facility] Last Admin: 12/11/17 16:22 Dose: 30 mls/hr Insulin Human Regular (Humulin R Med) 0 units SC ACHS [facility] PRN Reason: Protocol Last Admin: 12/12/17 16:30 Dose: Not Given Metoprolol Succinate (Toprol Xl) 25 mg PO DAILY [facility] Last Admin: 12/12/17 09:02 Dose: 25 mg Dolutegravir Sodium [Tivicay] 50 Mg ( Home Med) 50 mg PO DAILY [facility] Last Admin: 12/11/17 09:47 Dose: Not Given Lamivudine [Epivir Hbv] 100 Mg ( Home Med) 100 mg PO DAILY [facility] Last Admin: 12/12/17 10:00 Dose: Not Given Tamsulosin HCl (Flomax) 0.4 mg PO DAILY [facility] Last Admin: 12/12/17 09:02 Dose: 0.4 mg Vitamin B Complex/Vit C/Folic Acid (Nephro-Christel) 1 tab PO 0800 [facility] Last Admin: 12/12/17 09:01 Dose: 1 tab - Labs Labs: 12/12/17 07:10 12/12/17 07:10 PT 17.7 SECONDS (9.4-12.5) H 12/08/17 17:00 INR 1.54 (0.93-1.08) H 12/08/17 17:00 APTT 41.8 Seconds (25.1-36.5) H 12/08/17 17:00 Attending/Attestation - Attestation I have personally seen and examined this patient.: Yes I have fully participated in the care of the patient.: Yes I have reviewed all pertinent clinical information, including history, physical exam and plan: Yes Notes (Text): 12/12/17 21:02 72 year old male with h/o ESRD on HD, HIV, HTN, Prostate ca, OM s/p amputation, Pyleonrphritis, PAD s/p angioplasty, SBO s/p surgery admitted with abdominal pain, diarrhea, found to have severe enteritis in the small bowel. DDx includes infectious, ischemic, and inflammatory etiologies. Considering medical history, concern is for ischemic enteritis. Lactate normal. CT angio pending. Cdiff negative. Continue abx and supportive measures.
--- NOTE | 2017-12-12 14:53 | PN ---
DATE: 12/12/2017 CARDIOLOGY FOLLOWUP SUBJECTIVE: The patient is without distress in bed. PHYSICAL EXAMINATION: VITAL SIGNS: Blood pressure 135/72, the heart rate is 100. NECK: Negative JVD. LUNGS: Decreased breath sounds. HEART: Reveals S1, S2. EXTREMITIES: Status post amputation. LABORATORY DATA: Hemoglobin is 8.1, white count is decreased at 13,000. The potassium is 2.7 with a creatinine of 3.4. IMPRESSION: 1. Gram-negative sepsis. 2. No evidence for endocarditis. 3. Peripheral vascular disease. 4. Hypokalemia. 5. End-stage renal disease. 6. Aortic valve sclerosis with mild aortic insufficiency. 7. Mitral regurgitation. 8. Chronic obstructive pulmonary disease. Given these findings, the patient is on IV antibiotics, we will need to replace the potassium. Emmanuel Weller MD
[2017-12-12] MEDS: Meropenem 500 MG in Sodium Chloride 0.9% 50 ML IVPB SCH (15:02)
--- NOTE | 2017-12-12 15:05 | CP.PCM.PN ---
Subjective - Date & Time of Evaluation Date of Evaluation: 12/12/17 Time of Evaluation: 15:03 - Subjective Subjective: Nephrology Consultation Note: Assessment: critical ESBL E.Coli SEPSIS ? source (bowel versus permacath or tract) Enteritis and Colitis Hypokalemia, hypoglycemia recent High grade SBO s/p surgery, appendectomy: imporved hx of prostate CA Hypertensive Chronic Kidney Disease (I12.9) ESRD on HD via permacath (TTS) Anemia (D64.9), HTN (I12.9) HIV on HAART, PVD s/p angioplasty s/p Rt AKA Plan plan for HD tomorrow as per TTS schedule. nephrovite 1 tab/day. aransep 60 mcg weekly for anemia 12/10/17. PRBC as needed . last Hb 8.1 hold phos binders as pt with limited oral intake Hypertension control with meds as ordered. hold nifedipine as BP on low side supplement K started D5NS as pt with limited oral intake and hypoglycemia ID and GI following Dose meds/antibiotics for ESRD status. Avoid fleets enema/magnesium based laxatives. Further work up/management as per primary team. from renal perspective, pt can undergo CT angiogram without the need for post- procedure dialysis Thanks for allowing me to participate in care of your patient. Please call if any Qs. d/w team Dr Yandel Arechiga Office: [phone] HPI: Pt is a 72 y/o M with hx of HIV on HAART, PVD s/p angioplasty, Rt AKA, hypertension (10-15 years), ESRD on HD (via permacath) TTS @ [facility] [place], left foot toe amputations, prostate CA presented with pain abdomen and bacteremia renal consult for ESRD management pt doesn't feel well. says everything is bothering him as lower ext pain, groin pain. says alcala catheter was removed 2 weeks ago ROS: denies CP/SOB. all other neg except as in HPI. c/o abdomen pain. s/p CT guided aspiration 11/19/17 feels same with pain in heels, ankle. undergoing CT angiogram abdomen 12/12/17 Physical Examination: General Appearance: in no acute respiratory distress, facial muscles wasted, ill appearing Vitals reviewed and noted as below Head; Atraumatic, normocephalic ENT: no ulcers no thrush. Tongue is midline dry. Oropharynx: no rash or ulcers. EYES: Pupils are equal, round and reactive to light accommodation. Eye muscles and extraocular movement intact. Sclera is anicteric. Neck; supple no lymphadenopathy, no thyromegaly or bruit Lungs: Normal respiratory rate/effort. Breath sounds bilateral clear Heart: Normal rate. s1s2 normal. No rub or gallop. Extremities: no edema. No varicose veins. s/p Rt AKA Neurological: Patient is alert oriented x 3 follow commands,. no focal deficit Skin: Warm and dry. Normal turgor. Palpitation: Normal elasticity for age. Abdomen: Abdomen is soft. distended and tender in lower abdomen area with guarding. Psych: limited insight. flat affect MSK: Digits and nails normal, left foot toe amputations in past. Rt AKA. : kidney not palpable. Access: permacath and maturing left AVF Labs/imaging/EKG reviewed. Past medical history, past surgical history, family history, social history, allergy reviewed and noted as below Family hx: sister was on dialysis. Rest non-contributory Objective - Vital Signs/Intake and Output Vital Signs (last 24 hours): Temp Pulse Resp BP Pulse Ox 98.1 F 107 H 20 135/72 93 L 12/12/17 06:00 12/12/17 06:00 12/12/17 06:00 12/12/17 06:00 12/12/17 06:00 Intake and Output: 12/12/17 12/12/17 06:59 18:59 Intake Total 480 Balance 480 - Medications Medications: Current Medications Abacavir Sulfate (Ziagen) 300 mg PO DAILY [facility] PRN Reason: Protocol Last Admin: 12/12/17 09:01 Dose: 300 mg Acetaminophen (Tylenol 325mg Tab) 650 mg PO Q4H PRN PRN Reason: Fever >100.4 F Last Admin: 12/09/17 10:27 Dose: 650 mg Allopurinol (Zyloprim) 100 mg PO DAILY [facility] Last Admin: 12/12/17 09:01 Dose: 100 mg Calcium/Vitamin D (Oscal-D 250 Mg-125 Units Tab) 1 tab PO DAILY [facility] Last Admin: 12/12/17 09:01 Dose: 1 tab Cholecalciferol (Vitamin D) 1,000 intlu PO DAILY [facility] Last Admin: 12/12/17 09:01 Dose: 1,000 intlu Dextrose (Dextrose 50% Inj) 50 ml IVP PRN PRN PRN Reason: Low blood sugar Last Admin: 12/11/17 17:12 Dose: 50 ml Heparin Sodium (Porcine) (Heparin) 2,400 units ICV ONCE [facility] Last Admin: 12/11/17 14:43 Dose: 2,400 units Heparin Sodium (Porcine) (Heparin) 2,200 units ICA ONCE [facility] Last Admin: 12/11/17 14:43 Dose: 2,200 units Meropenem 500 mg/ Sodium (Chloride) 50 mls @ 100 mls/hr IVPB 1400 [facility] PRN Reason: Protocol Stop: 12/18/17 17:13 Last Admin: 12/11/17 15:37 Dose: 100 mls/hr Dextrose/Sodium Chloride (Dextrose 5%/0.9% Ns 1000 Ml) 1,000 mls @ 30 mls/hr IV .Q24H [facility] Last Admin: 12/11/17 16:22 Dose: 30 mls/hr Insulin Human Regular (Humulin R Med) 0 units SC ACHS [facility] PRN Reason: Protocol Last Admin: 12/12/17 08:00 Dose: Not Given Metoprolol Succinate (Toprol Xl) 25 mg PO DAILY [facility] Last Admin: 12/12/17 09:02 Dose: 25 mg Dolutegravir Sodium [Tivicay] 50 Mg ( Home Med) 50 mg PO DAILY [facility] Last Admin: 12/11/17 09:47 Dose: Not Given Lamivudine [Epivir Hbv] 100 Mg ( Home Med) 100 mg PO DAILY [facility] Last Admin: 12/11/17 09:47 Dose: Not Given Tamsulosin HCl (Flomax) 0.4 mg PO DAILY [facility] Last Admin: 12/12/17 09:02 Dose: 0.4 mg Vitamin B Complex/Vit C/Folic Acid (Nephro-Christel) 1 tab PO 0800 [facility] Last Admin: 12/12/17 09:01 Dose: 1 tab - Labs Labs: 12/12/17 07:10 12/12/17 07:10 PT 17.7 SECONDS (9.4-12.5) H 12/08/17 17:00 INR 1.54 (0.93-1.08) H 12/08/17 17:00 APTT 41.8 Seconds (25.1-36.5) H 12/08/17 17:00
--- NOTE | 2017-12-12 21:46 | CP.PCM.PN ---
Subjective - Date & Time of Evaluation Date of Evaluation: 12/12/17 Time of Evaluation: 13:35 - Subjective Subjective: Afebrile, not in distress, no abdominal pain. Objective - Vital Signs/Intake and Output Vital Signs (last 24 hours): Temp Pulse Resp BP Pulse Ox 98.9 F 75 18 125/62 96 12/12/17 18:00 12/12/17 18:00 12/12/17 18:00 12/12/17 18:00 12/12/17 18:00 Intake and Output: 12/12/17 12/13/17 18:59 06:59 Intake Total 540 Balance 540 - Medications Medications: Current Medications Abacavir Sulfate (Ziagen) 300 mg PO DAILY [facility] PRN Reason: Protocol Last Admin: 12/12/17 09:01 Dose: 300 mg Acetaminophen (Tylenol 325mg Tab) 650 mg PO Q4H PRN PRN Reason: Fever >100.4 F Last Admin: 12/09/17 10:27 Dose: 650 mg Allopurinol (Zyloprim) 100 mg PO DAILY [facility] Last Admin: 12/12/17 09:01 Dose: 100 mg Calcium/Vitamin D (Oscal-D 250 Mg-125 Units Tab) 1 tab PO DAILY [facility] Last Admin: 12/12/17 09:01 Dose: 1 tab Cholecalciferol (Vitamin D) 1,000 intlu PO DAILY [facility] Last Admin: 12/12/17 09:01 Dose: 1,000 intlu Dextrose (Dextrose 50% Inj) 50 ml IVP PRN PRN PRN Reason: Low blood sugar Last Admin: 12/11/17 17:12 Dose: 50 ml Heparin Sodium (Porcine) (Heparin) 2,400 units ICV ONCE [facility] Last Admin: 12/11/17 14:43 Dose: 2,400 units Heparin Sodium (Porcine) (Heparin) 2,200 units ICA ONCE [facility] Last Admin: 12/11/17 14:43 Dose: 2,200 units Meropenem 500 mg/ Sodium (Chloride) 50 mls @ 100 mls/hr IVPB 1400 [facility] PRN Reason: Protocol Stop: 12/18/17 17:13 Last Admin: 12/12/17 15:02 Dose: 100 mls/hr Dextrose/Sodium Chloride (Dextrose 5%/0.9% Ns 1000 Ml) 1,000 mls @ 30 mls/hr IV .Q24H [facility] Last Admin: 12/11/17 16:22 Dose: 30 mls/hr Insulin Human Regular (Humulin R Med) 0 units SC ACHS [facility] PRN Reason: Protocol Last Admin: 12/12/17 16:30 Dose: Not Given Metoprolol Succinate (Toprol Xl) 25 mg PO DAILY [facility] Last Admin: 12/12/17 09:02 Dose: 25 mg Dolutegravir Sodium [Tivicay] 50 Mg ( Home Med) 50 mg PO DAILY [facility] Last Admin: 12/11/17 09:47 Dose: Not Given Lamivudine [Epivir Hbv] 100 Mg ( Home Med) 100 mg PO DAILY [facility] Last Admin: 12/12/17 10:00 Dose: Not Given Tamsulosin HCl (Flomax) 0.4 mg PO DAILY [facility] Last Admin: 12/12/17 09:02 Dose: 0.4 mg Vitamin B Complex/Vit C/Folic Acid (Nephro-Christel) 1 tab PO 0800 [facility] Last Admin: 12/12/17 09:01 Dose: 1 tab - Labs Labs: 12/12/17 07:10 12/12/17 07:10 PT 17.7 SECONDS (9.4-12.5) H 12/08/17 17:00 INR 1.54 (0.93-1.08) H 12/08/17 17:00 APTT 41.8 Seconds (25.1-36.5) H 12/08/17 17:00 - Constitutional Appears: Chronically Ill - Head Exam Head Exam: NORMAL INSPECTION - ENT Exam ENT Exam: Mucous Membranes Moist - Neck Exam Neck Exam: absent: Meningismus - Respiratory Exam Respiratory Exam: Decreased Breath Sounds - Cardiovascular Exam Cardiovascular Exam: +S1, +S2 - GI/Abdominal Exam GI & Abdominal Exam: Soft. absent: Tenderness Assessment and Plan - Assessment and Plan (Free Text) Plan: Assessment sepsis due to ESBL E. coli bacteremia, consider HD catheter associated bacteremia history of small bowel obstruction S/P ex-lap, adhesiolysis, repair of umbilical hernia and appendectomy S/P UTI severe PAD S/P angioplasty of the left tibial artery S/P right AKA UTI with MRSA and Strep viridans systemic viral illness with Influenza history of left foot 3rd digit chronic osteomyelitis S/P amputation and debridement right sided nephrolithiasis history of severe sepsis with acute on chronic renal failure probably due to pyelonephritis with E. coli bacteremia history of C. diff. associated diarrhea Charcot foot, left history of left 2nd toe dry gangrene Chronic renal failure on hemodialysis HTN prostate CA HIV (patient goes to the [place] with last CD4 count here at [facility] [place] 03/2016 349 and virus load < 1.3 log) history of osteomyelitis of left first toe S/P amputation (2015) gout history of left foot ulcers Plan continue Merrem to complete at least 10-14 days of therapy duplex U/s of RUE does not show DVT repeat blood cx are negative so far - concerned about HD catheter infection - should be removed and changed continue antiretroviral therapy (lamivudine, abacavir on formulary but dolutegravir should be taken by patient from his home supply) overall prognosis is poor
[2017-12-13] MEDS: Dextrose 5%/0.9% NS 1,000 ML IV SCH (05:11)
--- NOTE | 2017-12-13 07:40 | CP.PCM.PN ---
<Tania Driscoll - Last Filed: 12/13/17 09:37> Subjective - Date & Time of Evaluation Date of Evaluation: 12/13/17 Time of Evaluation: 07:00 - Subjective Subjective: PGY4 GI Follow-up Pt seen and examined bedside No complaints slight abd pain attempting to eats meals but denies appetite No Bm in 1-2 days ROS: 12 point ROS conducted, neg other than above Objective - Vital Signs/Intake and Output Vital Signs (last 24 hours): Temp Pulse Resp BP Pulse Ox 99.1 F 101 H 19 153/75 H 95 12/12/17 22:00 12/12/17 22:00 12/12/17 22:00 12/12/17 22:00 12/12/17 22:00 Intake and Output: 12/13/17 12/13/17 06:59 18:59 Intake Total 480 Output Total 2 Balance 478 - Medications Medications: Current Medications Abacavir Sulfate (Ziagen) 300 mg PO DAILY DWAIN PRN Reason: Protocol Last Admin: 12/12/17 09:01 Dose: 300 mg Acetaminophen (Tylenol 325mg Tab) 650 mg PO Q4H PRN PRN Reason: Fever >100.4 F Last Admin: 12/09/17 10:27 Dose: 650 mg Allopurinol (Zyloprim) 100 mg PO DAILY [facility] Last Admin: 12/12/17 09:01 Dose: 100 mg Calcium/Vitamin D (Oscal-D 250 Mg-125 Units Tab) 1 tab PO DAILY [facility] Last Admin: 12/12/17 09:01 Dose: 1 tab Cholecalciferol (Vitamin D) 1,000 intlu PO DAILY [facility] Last Admin: 12/12/17 09:01 Dose: 1,000 intlu Dextrose (Dextrose 50% Inj) 50 ml IVP PRN PRN PRN Reason: Low blood sugar Last Admin: 12/11/17 17:12 Dose: 50 ml Heparin Sodium (Porcine) (Heparin) 2,400 units ICV ONCE [facility] Last Admin: 12/11/17 14:43 Dose: 2,400 units Heparin Sodium (Porcine) (Heparin) 2,200 units ICA ONCE [facility] Last Admin: 12/11/17 14:43 Dose: 2,200 units Meropenem 500 mg/ Sodium (Chloride) 50 mls @ 100 mls/hr IVPB 1400 DWAIN PRN Reason: Protocol Stop: 12/18/17 17:13 Last Admin: 12/12/17 15:02 Dose: 100 mls/hr Dextrose/Sodium Chloride (Dextrose 5%/0.9% Ns 1000 Ml) 1,000 mls @ 30 mls/hr IV .Q24H [facility] Last Admin: 12/13/17 05:11 Dose: 30 mls/hr Insulin Human Regular (Humulin R Med) 0 units SC ACHS [facility] PRN Reason: Protocol Last Admin: 12/12/17 16:30 Dose: Not Given Metoprolol Succinate (Toprol Xl) 25 mg PO DAILY [facility] Last Admin: 12/12/17 09:02 Dose: 25 mg Dolutegravir Sodium [Tivicay] 50 Mg ( Home Med) 50 mg PO DAILY [facility] Last Admin: 12/11/17 09:47 Dose: Not Given Lamivudine [Epivir Hbv] 100 Mg ( Home Med) 100 mg PO DAILY [facility] Last Admin: 12/12/17 10:00 Dose: Not Given Polyethylene Glycol (Miralax) 17 gm PO DAILY [facility] Tamsulosin HCl (Flomax) 0.4 mg PO DAILY [facility] Last Admin: 12/12/17 09:02 Dose: 0.4 mg Vitamin B Complex/Vit C/Folic Acid (Nephro-Christel) 1 tab PO 0800 [facility] Last Admin: 12/12/17 09:01 Dose: 1 tab - Labs Labs: 12/12/17 07:10 12/12/17 07:10 PT 17.7 SECONDS (9.4-12.5) H 12/08/17 17:00 INR 1.54 (0.93-1.08) H 12/08/17 17:00 APTT 41.8 Seconds (25.1-36.5) H 12/08/17 17:00 - Constitutional Appears: Well, No Acute Distress, Cachectic - Head Exam Head Exam: ATRAUMATIC, NORMOCEPHALIC - Eye Exam Eye Exam: Normal appearance - ENT Exam ENT Exam: Mucous Membranes Moist, Normal Exam - Neck Exam Neck Exam: Normal Inspection - Respiratory Exam Respiratory Exam: Clear to Ausculation Bilateral, NORMAL BREATHING PATTERN. absent: Rales, Rhonchi, Wheezes, Respiratory Distress - Cardiovascular Exam Cardiovascular Exam: REGULAR RHYTHM, +S1, +S2 - GI/Abdominal Exam GI & Abdominal Exam: Soft, Tenderness, Normal Bowel Sounds. absent: Distended, Firm, Guarding, Rigid, Organomegaly, Rebound - Extremities Exam Extremities Exam: absent: Joint Swelling, Pedal Edema - Neurological Exam Neurological Exam: Alert, Awake, Oriented x3 Assessment and Plan - Assessment and Plan (Free Text) Assessment: Raza Sagastume 72M w/ hx of ESRD on HD, HTN, prostate CA, HIV on HAART, history of osteomyelitis of left first toe S/P amputation (2015), gout, history of left foot ulcers, history of pyelonephritis with E. coli bacteremia, S/P left foot 3rd digit chronic osteomyelitis S/P amputation and debridement, severe PAD S/P angioplasty of the left tibial artery, s/p appendectomy and adhesion lysis (discharged 11/21/17) was sent in to [facility] because fever and rapid heart rate at dialysis center. Severe Enteritis, ddx infectious, ischemic Colitis Diarrhea, c.diff neg, r/o infectious etiology, ischemic (mesentery stenosis) e. coli bacteremia Plan: -CT angio of abd performed and interpreted by Dr Leonardo and myself; celiacomesenteric trunk; no obvious stenosis; similar report by radiologist -stool cultures pending -continue abx -fecal calprotectin pending -diet as tolerated -will continue to follow -c.diff neg -continue abx as per ID -diarrhea resolved -will sign off D/W Dr. Leonardo <Finesse Leonardo - Last Filed: 12/13/17 10:18> Objective - Vital Signs/Intake and Output Vital Signs (last 24 hours): Temp Pulse Resp BP Pulse Ox 99.6 F 100 H 20 164/73 H 96 12/13/17 07:37 12/13/17 07:37 12/13/17 07:37 12/13/17 07:37 12/13/17 07:37 Intake and Output: 12/13/17 12/13/17 06:59 18:59 Intake Total 480 Output Total 2 Balance 478 - Medications Medications: Current Medications Abacavir Sulfate (Ziagen) 300 mg PO DAILY DWAIN PRN Reason: Protocol Last Admin: 12/12/17 09:01 Dose: 300 mg Acetaminophen (Tylenol 325mg Tab) 650 mg PO Q4H PRN PRN Reason: Fever >100.4 F Last Admin: 12/09/17 10:27 Dose: 650 mg Allopurinol (Zyloprim) 100 mg PO DAILY [facility] Last Admin: 12/12/17 09:01 Dose: 100 mg Calcium/Vitamin D (Oscal-D 250 Mg-125 Units Tab) 1 tab PO DAILY [facility] Last Admin: 12/12/17 09:01 Dose: 1 tab Cholecalciferol (Vitamin D) 1,000 intlu PO DAILY [facility] Last Admin: 12/12/17 09:01 Dose: 1,000 intlu Dextrose (Dextrose 50% Inj) 50 ml IVP PRN PRN PRN Reason: Low blood sugar Last Admin: 12/11/17 17:12 Dose: 50 ml Heparin Sodium (Porcine) (Heparin) 2,400 units ICV ONCE [facility] Last Admin: 12/11/17 14:43 Dose: 2,400 units Heparin Sodium (Porcine) (Heparin) 2,200 units ICA ONCE [facility] Last Admin: 12/11/17 14:43 Dose: 2,200 units Meropenem 500 mg/ Sodium (Chloride) 50 mls @ 100 mls/hr IVPB 1400 DWAIN PRN Reason: Protocol Stop: 12/18/17 17:13 Last Admin: 12/12/17 15:02 Dose: 100 mls/hr Dextrose/Sodium Chloride (Dextrose 5%/0.9% Ns 1000 Ml) 1,000 mls @ 30 mls/hr IV .Q24H [facility] Last Admin: 12/13/17 05:11 Dose: 30 mls/hr Insulin Human Regular (Humulin R Med) 0 units SC ACHS DWAIN PRN Reason: Protocol Last Admin: 12/12/17 16:30 Dose: Not Given Metoprolol Succinate (Toprol Xl) 25 mg PO DAILY [facility] Last Admin: 12/12/17 09:02 Dose: 25 mg Dolutegravir Sodium [Tivicay] 50 Mg ( Home Med) 50 mg PO DAILY [facility] Last Admin: 12/11/17 09:47 Dose: Not Given Lamivudine [Epivir Hbv] 100 Mg ( Home Med) 100 mg PO DAILY [facility] Last Admin: 12/12/17 10:00 Dose: Not Given Polyethylene Glycol (Miralax) 17 gm PO DAILY [facility] Tamsulosin HCl (Flomax) 0.4 mg PO DAILY [facility] Last Admin: 12/12/17 09:02 Dose: 0.4 mg Vitamin B Complex/Vit C/Folic Acid (Nephro-Christel) 1 tab PO 0800 [facility] Last Admin: 12/12/17 09:01 Dose: 1 tab - Labs Labs: 12/13/17 07:00 12/12/17 07:10 PT 17.7 SECONDS (9.4-12.5) H 12/08/17 17:00 INR 1.54 (0.93-1.08) H 12/08/17 17:00 APTT 41.8 Seconds (25.1-36.5) H 12/08/17 17:00 Attending/Attestation - Attestation I have personally seen and examined this patient.: Yes I have fully participated in the care of the patient.: Yes I have reviewed all pertinent clinical information, including history, physical exam and plan: Yes Notes (Text): 12/13/17 10:17 72 year old male with h/o ESRD on HD, HIV, HTN, Prostate ca, OM s/p amputation, Pyleonrphritis, PAD s/p angioplasty, SBO s/p surgery admitted with abdominal pain, diarrhea, found to have severe enteritis in the small bowel. CT angio reviewed. Showed anatomic variant, but no stenosis or occlusion of mesenteric vasculature along with improving enteritis. Continue supportive measures with antibiotics. No further gi eval/treatment. Diet as tolerated. Will sign off.
--- NOTE | 2017-12-13 09:00 | CT ---
PROCEDURE: CT Abdomen and Pelvis with contrast HISTORY: r/o mesenteric artery stenosis COMPARISON: None. TECHNIQUE: Contrast dose: 150 cc of Omni 350 Radiation dose: Total exam DLP = 621 mGy-cm. This CT exam was performed using one or more of the following dose reduction techniques: Automated exposure control, adjustment of the mA and/or kV according to patient size, and/or use of iterative reconstruction technique. FINDINGS: LOWER THORAX: Small pleural effusions LIVER: Unremarkable. No gross lesion or ductal dilatation. GALLBLADDER AND BILE DUCTS: Unremarkable. PANCREAS: Unremarkable. No gross lesion or ductal dilatation. SPLEEN: Unremarkable. ADRENALS: Unremarkable. No mass. KIDNEYS AND URETERS: Unremarkable. No hydronephrosis. No solid mass. VASCULATURE: The celiac and superior mesenteric arteries share a common trunk. This represents an anatomic variation. There is no evidence of stenosis or occlusion. The inferior mesenteric artery is patent. BOWEL: There is no oral contrast. Therefore it is difficult to compare to the recent exam which showed mural thickening in the small bowel and colon. There appears to be some improvement in this finding. APPENDIX: Not visible PERITONEUM: Small amount of ascites slightly decreased LYMPH NODES: Unremarkable. No enlarged lymph nodes. BLADDER: Unremarkable. REPRODUCTIVE: Unremarkable. BONES: No acute fracture. OTHER FINDINGS: None. IMPRESSION: No evidence of stenosis or occlusion of mesenteric arteries
[2017-12-13 10:12] LABS: HEMOGLOBIN 7.6 g/dL (14.0-18.0); MEAN CORPUSCULAR HEMOGLOBIN 29.1 pg (25.0-35.0); MEAN CORPUSCULAR HGB CONC 31.7 g/dl (31.0-37.0); MEAN PLATELET VOLUME 10.4 fl (7.0-11.0); RBC 2.61 10^6/uL (3.5-6.1); RED CELL DISTRIBUTION WIDTH 18.9 % (11.5-14.5); WHITE BLOOD COUNT 13.3 10^3/ul (4.5-11.0)
[2017-12-13 11:22] LABS: ALB/GLOB RATIO 0.7 (1.1-1.8); ALBUMIN 2.4 g/dL (3.0-4.8); CALCIUM 7.9 mg/dL (8.4-10.5)
--- NOTE | 2017-12-13 12:03 | CP.PCM.PN ---
Subjective - Date & Time of Evaluation Date of Evaluation: 12/13/17 Time of Evaluation: 12:02 - Subjective Subjective: Nephrology Consultation Note: Assessment: critical ESBL E.Coli SEPSIS ? source (suspect permacath per ID) Enteritis and Colitis Hypokalemia, hypoglycemia recent High grade SBO s/p surgery, appendectomy: imporved hx of prostate CA Hypertensive Chronic Kidney Disease (I12.9) ESRD on HD via permacath (TTS) Anemia (D64.9), HTN (I12.9) HIV on HAART, PVD s/p angioplasty s/p Rt AKA Plan plan for HD today as per TTS schedule. nephrovite 1 tab/day. aransep 60 mcg weekly for anemia 12/10/17. PRBC as needed . last Hb 8.1 hold phos binders as pt with limited oral intake Hypertension control with meds as ordered. hold nifedipine as BP on low side supplement K started D5NS as pt with limited oral intake and hypoglycemia ID and GI following Dose meds/antibiotics for ESRD status. Avoid fleets enema/magnesium based laxatives. Further work up/management as per primary team. IR consult for permacath exchange Thanks for allowing me to participate in care of your patient. Please call if any Qs. d/w team Dr Yandel Arechiga Office: [phone] HPI: Pt is a 72 y/o M with hx of HIV on HAART, PVD s/p angioplasty, Rt AKA, hypertension (10-15 years), ESRD on HD (via permacath) TTS @ [facility], left foot toe amputations, prostate CA presented with pain abdomen and bacteremia renal consult for ESRD management pt doesn't feel well. says everything is bothering him as lower ext pain, groin pain. says alcala catheter was removed 2 weeks ago ROS: denies CP/SOB. all other neg except as in HPI. c/o abdomen pain. s/p CT guided aspiration 11/19/17 feels same with pain in heels, ankle. undergoing CT angiogram abdomen 12/12/17 Physical Examination: seen on HD General Appearance: in no acute respiratory distress, facial muscles wasted, ill appearing Vitals reviewed and noted as below Head; Atraumatic, normocephalic ENT: no ulcers no thrush. Tongue is midline dry. Oropharynx: no rash or ulcers. EYES: Pupils are equal, round and reactive to light accommodation. Eye muscles and extraocular movement intact. Sclera is anicteric. Neck; supple no lymphadenopathy, no thyromegaly or bruit Lungs: Normal respiratory rate/effort. Breath sounds bilateral clear Heart: Normal rate. s1s2 normal. No rub or gallop. Extremities: no edema. No varicose veins. s/p Rt AKA Neurological: Patient is alert oriented x 3 follow commands,. no focal deficit Skin: Warm and dry. Normal turgor. Palpitation: Normal elasticity for age. Abdomen: Abdomen is soft. distended and tender in lower abdomen area with guarding. Psych: limited insight. flat affect MSK: Digits and nails normal, left foot toe amputations in past. Rt AKA. : kidney not palpable. Access: permacath and maturing left AVF Labs/imaging/EKG reviewed. Past medical history, past surgical history, family history, social history, allergy reviewed and noted as below Family hx: sister was on dialysis. Rest non-contributory Objective - Vital Signs/Intake and Output Vital Signs (last 24 hours): Temp Pulse Resp BP Pulse Ox 99.6 F 100 H 20 164/73 H 96 12/13/17 07:37 12/13/17 07:37 12/13/17 07:37 12/13/17 07:37 12/13/17 07:37 Intake and Output: 12/13/17 12/13/17 06:59 18:59 Intake Total 480 Output Total 2 Balance 478 - Medications Medications: Current Medications Abacavir Sulfate (Ziagen) 300 mg PO DAILY DWAIN PRN Reason: Protocol Last Admin: 12/12/17 09:01 Dose: 300 mg Acetaminophen (Tylenol 325mg Tab) 650 mg PO Q4H PRN PRN Reason: Fever >100.4 F Last Admin: 12/09/17 10:27 Dose: 650 mg Allopurinol (Zyloprim) 100 mg PO DAILY [facility] Last Admin: 12/12/17 09:01 Dose: 100 mg Calcium/Vitamin D (Oscal-D 250 Mg-125 Units Tab) 1 tab PO DAILY [facility] Last Admin: 12/12/17 09:01 Dose: 1 tab Cholecalciferol (Vitamin D) 1,000 intlu PO DAILY [facility] Last Admin: 12/12/17 09:01 Dose: 1,000 intlu Dextrose (Dextrose 50% Inj) 50 ml IVP PRN PRN PRN Reason: Low blood sugar Last Admin: 12/11/17 17:12 Dose: 50 ml Heparin Sodium (Porcine) (Heparin) 2,400 units ICV ONCE [facility]WAIN Last Admin: 12/11/17 14:43 Dose: 2,400 units Heparin Sodium (Porcine) (Heparin) 2,200 units ICA ONCE [facility] Last Admin: 12/11/17 14:43 Dose: 2,200 units Meropenem 500 mg/ Sodium (Chloride) 50 mls @ 100 mls/hr IVPB 1400 DWAIN PRN Reason: Protocol Stop: 12/18/17 17:13 Last Admin: 12/12/17 15:02 Dose: 100 mls/hr Dextrose/Sodium Chloride (Dextrose 5%/0.9% Ns 1000 Ml) 1,000 mls @ 30 mls/hr IV .Q24H [facility] Last Admin: 12/13/17 05:11 Dose: 30 mls/hr Insulin Human Regular (Humulin R Med) 0 units SC ACHS [facility]WAIN PRN Reason: Protocol Last Admin: 12/12/17 16:30 Dose: Not Given Metoprolol Succinate (Toprol Xl) 25 mg PO DAILY [facility] Last Admin: 12/12/17 09:02 Dose: 25 mg Dolutegravir Sodium [Tivicay] 50 Mg ( Home Med) 50 mg PO DAILY [facility] Last Admin: 12/11/17 09:47 Dose: Not Given Lamivudine [Epivir Hbv] 100 Mg ( Home Med) 100 mg PO DAILY [facility] Last Admin: 12/12/17 10:00 Dose: Not Given Polyethylene Glycol (Miralax) 17 gm PO DAILY [facility] Tamsulosin HCl (Flomax) 0.4 mg PO DAILY [facility] Last Admin: 12/12/17 09:02 Dose: 0.4 mg Vitamin B Complex/Vit C/Folic Acid (Nephro-Christel) 1 tab PO 0800 [facility] Last Admin: 12/12/17 09:01 Dose: 1 tab - Labs Labs: 12/13/17 07:00 12/13/17 07:00 PT 17.7 SECONDS (9.4-12.5) H 12/08/17 17:00 INR 1.54 (0.93-1.08) H 12/08/17 17:00 APTT 41.8 Seconds (25.1-36.5) H 12/08/17 17:00
[2017-12-13] MEDS ORDERED: Potassium Chloride 20 mEq ER Tab PO ONE (12:10)
[2017-12-13] MEDS: Metoprolol Succinate 25 mg XL Tab PO SCH (13:31)
[2017-12-13] MEDS: Multivitamin Vitamin B Complex (Nephro-Vite) Tab PO SCH (13:31)
[2017-12-13] MEDS: Cholecalciferol 1,000 INTLU TAB PO SCH (13:32)
[2017-12-13] MEDS: POLYETHYLENE GLYCOL 3350 17 GM/Dose PACKET PO SCH (13:33)
--- NOTE | 2017-12-13 13:44 | PN ---
DATE: SUBJECTIVE: He is here with a couple of issues going on, but he is comfortable in bed. He is trying to eat his breakfast. He is getting his dialysis. He is on his IV antibiotics. He has got sepsis due to ESBL bacteremia. He is on end-stage renal disease with hemodialysis. He has a history of a small bowel obstruction and exploratory lap and lysis of adhesions. He has had urinary tract infections in the past. He has a right AKA for very bad circulation and toe chronic osteomyelitis. He has got multiple surgeries. Now, he is on IV Merrem, only 10-14 days. Not sure if he can leave the hospital gets it done, so he is going to be here. PHYSICAL EXAMINATION: VITAL SIGNS: He has a 99.6 temp, 100 pulse, 164/73 blood pressure, 20 respiratory rate, 96% O2 sat on room air. HEENT: His head is atraumatic, normocephalic. Throat is moist. NECK: Supple. HEART: Regular rate. LUNGS: Decreased breath sounds, but clear. ABDOMEN: Soft. EXTREMITIES: He has a right BKA. I called in rn neurosurgical for the left foot. LABORATORY DATA: He has a 13,000 white count, 8.1 hemoglobin, 25.6 hematocrit with a 302 platelets. He has a 142 sodium; potassium was low, it was 2.7 yesterday, I replaced it, waiting for this morning's lab to come back; blood sugar was 93. ASSESSMENT AND PLAN: We will continue aggressive treatment and care. We will check his labs tomorrow. Continue IV antibiotics as per Infectious Disease. I will discharge him when I get the okay, when he is off the medications and have a safe place for him to be discharged. Parag Brownlee DO MTDD
[2017-12-13] MEDS ORDERED: Magnesium Sulfate 1 gm in D5W 1 GM/100 ML BAG IVPB ONE (15:08)
--- NOTE | 2017-12-13 15:15 | CP.PCM.PN ---
<Mirta Driscoll - Last Filed: 12/13/17 15:11> Subjective - Date & Time of Evaluation Date of Evaluation: 12/13/17 Time of Evaluation: 13:10 - Subjective Subjective: Podiatry Progress note: Dr. Caldwell/Dr. Dunn 72 year old male patient seen and evaluated at bedside for left heel deep tissue injury. Patient is AAOx3 and is in NAD. Reports that he was in dialysis this morning. Complains of pain to the left heel today. Denies of any other pedal complains today. Denies F/N/V/C/SOB/CP/headache. Objective - Vital Signs/Intake and Output Vital Signs (last 24 hours): Temp Pulse Resp BP Pulse Ox 99.6 F 100 H 20 164/73 H 96 12/13/17 07:37 12/13/17 07:37 12/13/17 07:37 12/13/17 07:37 12/13/17 07:37 Intake and Output: 12/13/17 12/13/17 06:59 18:59 Intake Total 480 960 Output Total 2 Balance 478 960 - Medications Medications: Current Medications Abacavir Sulfate (Ziagen) 300 mg PO DAILY [facility] PRN Reason: Protocol Last Admin: 12/13/17 13:31 Dose: 300 mg Acetaminophen (Tylenol 325mg Tab) 650 mg PO Q4H PRN PRN Reason: Fever >100.4 F Last Admin: 12/09/17 10:27 Dose: 650 mg Allopurinol (Zyloprim) 100 mg PO DAILY [facility] Last Admin: 12/13/17 13:32 Dose: 100 mg Calcium/Vitamin D (Oscal-D 250 Mg-125 Units Tab) 1 tab PO DAILY [facility] Last Admin: 12/12/17 09:01 Dose: 1 tab Cholecalciferol (Vitamin D) 1,000 intlu PO DAILY [facility] Last Admin: 12/13/17 13:32 Dose: 1,000 intlu Dextrose (Dextrose 50% Inj) 50 ml IVP PRN PRN PRN Reason: Low blood sugar Last Admin: 12/11/17 17:12 Dose: 50 ml Heparin Sodium (Porcine) (Heparin) 2,400 units ICV ONCE [facility] Last Admin: 12/11/17 14:43 Dose: 2,400 units Heparin Sodium (Porcine) (Heparin) 2,200 units ICA ONCE [facility] Last Admin: 12/11/17 14:43 Dose: 2,200 units Meropenem 500 mg/ Sodium (Chloride) 50 mls @ 100 mls/hr IVPB 1400 [facility] PRN Reason: Protocol Stop: 12/18/17 17:13 Last Admin: 12/12/17 15:02 Dose: 100 mls/hr Dextrose/Sodium Chloride (Dextrose 5%/0.9% Ns 1000 Ml) 1,000 mls @ 30 mls/hr IV .Q24H [facility] Last Admin: 12/13/17 05:11 Dose: 30 mls/hr Magnesium Sulfate/Dextrose (Magnesium Sulfate 1 Gm/100 Ml D5w) 1 gm in 100 mls @ 100 mls/hr IVPB ONCE ONE Stop: 12/13/17 16:07 Insulin Human Regular (Humulin R Med) 0 units SC ACHS [facility] PRN Reason: Protocol Last Admin: 12/12/17 16:30 Dose: Not Given Metoprolol Succinate (Toprol Xl) 25 mg PO DAILY [facility] Last Admin: 12/13/17 13:31 Dose: 25 mg Dolutegravir Sodium [Tivicay] 50 Mg ( Home Med) 50 mg PO DAILY [facility] Last Admin: 12/11/17 09:47 Dose: Not Given Lamivudine [Epivir Hbv] 100 Mg ( Home Med) 100 mg PO DAILY [facility] Last Admin: 12/12/17 10:00 Dose: Not Given Petrolatum (Desitin Maximum Strength Topical 40% Oint) 0 gm TOP Q4H PRN PRN Reason: Rash Polyethylene Glycol (Miralax) 17 gm PO DAILY [facility] Last Admin: 12/13/17 13:33 Dose: Not Given Tamsulosin HCl (Flomax) 0.4 mg PO DAILY [facility] Last Admin: 12/13/17 13:31 Dose: 0.4 mg Vitamin B Complex/Vit C/Folic Acid (Nephro-Christel) 1 tab PO 0800 [facility] Last Admin: 12/13/17 13:31 Dose: 1 tab - Labs Labs: 12/13/17 07:00 12/13/17 07:00 PT 17.7 SECONDS (9.4-12.5) H 12/08/17 17:00 INR 1.54 (0.93-1.08) H 12/08/17 17:00 APTT 41.8 Seconds (25.1-36.5) H 12/08/17 17:00 - Constitutional Appears: Well, Non-toxic, No Acute Distress - Extremities Exam Additional comments: Phong IGNACIO focused exam: VASC: DP/PT pulses palpable 1/4. Temperature gradient warm to cool. CFT < 3 sec to all digits. No pedal edema noted DERM: Stage 1 non-blanchable erythematous pressure ulceration noted to heel. No open lesions, no ecchymosis, skin and soft tissue intact, no clinical suspicion of active infection NEURO: Protective sensation grossly diminished ORTHO: mild tenderness to palpation of L plantar heel. 1st-3rd digit amputations noted to L foot. Charcot midfoot changes - Neurological Exam Neurological Exam: Alert, Awake, Oriented x3 - Psychiatric Exam Psychiatric exam: Normal Affect, Normal Mood Assessment and Plan - Assessment and Plan (Free Text) Assessment: 72 year old male patient with left heel stage 1 pressure ulceration secondary to bed bound status Plan: Patient seen and evaluated with attending Dr. Dunn Labs and vitals reviewed Optifoam applied to the L heel Multipodus boot ordered - to be worn at all times in bed Will follow patient while in-house <Jerrod Dunn - Last Filed: 12/14/17 10:39> Objective - Vital Signs/Intake and Output Vital Signs (last 24 hours): Temp Pulse Resp BP Pulse Ox 98.6 F 102 H 20 168/82 H 90 L 12/13/17 22:56 12/13/17 22:56 12/13/17 22:56 12/13/17 22:56 12/13/17 22:56 Intake and Output: 12/14/17 12/14/17 06:59 18:59 Intake Total 720 Balance 720 - Medications Medications: Current Medications Abacavir Sulfate (Ziagen) 300 mg PO DAILY [facility] PRN Reason: Protocol Last Admin: 12/13/17 13:31 Dose: 300 mg Acetaminophen (Tylenol 325mg Tab) 650 mg PO Q4H PRN PRN Reason: Fever >100.4 F Last Admin: 12/14/17 00:05 Dose: 650 mg Allopurinol (Zyloprim) 100 mg PO DAILY [facility] Last Admin: 12/13/17 13:32 Dose: 100 mg Calcium/Vitamin D (Oscal-D 250 Mg-125 Units Tab) 1 tab PO DAILY [facility] Last Admin: 12/12/17 09:01 Dose: 1 tab Cholecalciferol (Vitamin D) 1,000 intlu PO DAILY [facility] Last Admin: 12/13/17 13:32 Dose: 1,000 intlu Dextrose (Dextrose 50% Inj) 50 ml IVP PRN PRN PRN Reason: Low blood sugar Last Admin: 12/11/17 17:12 Dose: 50 ml Heparin Sodium (Porcine) (Heparin) 2,400 units ICV ONCE [facility] Last Admin: 12/11/17 14:43 Dose: 2,400 units Heparin Sodium (Porcine) (Heparin) 2,200 units ICA ONCE [facility] Last Admin: 12/11/17 14:43 Dose: 2,200 units Meropenem 500 mg/ Sodium (Chloride) 50 mls @ 100 mls/hr IVPB 1400 [facility] PRN Reason: Protocol Stop: 12/18/17 17:13 Last Admin: 12/13/17 16:45 Dose: 100 mls/hr Dextrose/Sodium Chloride (Dextrose 5%/0.9% Ns 1000 Ml) 1,000 mls @ 30 mls/hr IV .Q24H [facility] Last Admin: 12/14/17 06:43 Dose: 30 mls/hr Insulin Human Regular (Humulin R Med) 0 units SC ACHS [facility] PRN Reason: Protocol Last Admin: 12/14/17 08:33 Dose: Not Given Metoprolol Succinate (Toprol Xl) 25 mg PO DAILY [facility] Last Admin: 12/13/17 13:31 Dose: 25 mg Dolutegravir Sodium [Tivicay] 50 Mg ( Home Med) 50 mg PO DAILY [facility] Last Admin: 12/11/17 09:47 Dose: Not Given Lamivudine [Epivir Hbv] 100 Mg ( Home Med) 100 mg PO DAILY [facility] Last Admin: 12/12/17 10:00 Dose: Not Given Petrolatum (Desitin Maximum Strength Topical 40% Oint) 0 gm TOP Q4H PRN PRN Reason: Rash Last Admin: 12/13/17 16:45 Dose: 1 applic Polyethylene Glycol (Miralax) 17 gm PO DAILY [facility] Last Admin: 12/13/17 13:33 Dose: Not Given Tamsulosin HCl (Flomax) 0.4 mg PO DAILY [facility] Last Admin: 12/13/17 13:31 Dose: 0.4 mg Vitamin B Complex/Vit C/Folic Acid (Nephro-Christel) 1 tab PO 0800 [facility] Last Admin: 12/13/17 13:31 Dose: 1 tab - Labs Labs: 12/14/17 07:00 12/14/17 07:00 PT 17.7 SECONDS (9.4-12.5) H 12/08/17 17:00 INR 1.54 (0.93-1.08) H 12/08/17 17:00 APTT 41.8 Seconds (25.1-36.5) H 12/08/17 17:00 Attending/Attestation - Attestation I have personally seen and examined this patient.: Yes I have fully participated in the care of the patient.: Yes I have reviewed all pertinent clinical information, including history, physical exam and plan: Yes
[2017-12-13] MEDS: Zinc Oxide Topical 40% Oint (Desitin) TOP PRN (16:45)
[2017-12-13] MEDS: Meropenem 500 MG in Sodium Chloride 0.9% 50 ML IVPB SCH (16:45)
[2017-12-13] MEDS: Insulin Reg-MEDIUM-Coverage SC SCH (22:03)
[2017-12-13 22:58] LABS: URINE BILIRUBIN NEGATIVE (NEGATIVE); URINE BLOOD LARGE (NEGATIVE); URINE GLUCOSE (UA) NEGATIVE (NEGATIVE); URINE LEUKOCYTE ESTERASE MODERATE Leu/uL (NEGATIVE); URINE PROTEIN >=300 mg/dL (<30 mg/dL); URINE UROBILINOGEN 0.2 E.U./dL (<1 E.U./dL)
[2017-12-13 23:15] LABS: URINE APPEARANCE TURBID (CLEAR); URINE COLOR YELLOW (YELLOW)
--- NOTE | 2017-12-14 01:03 | PN ---
DATE: 12/13/2017 SUBJECTIVE: Patient is in bed, in no acute distress, nontoxic. PHYSICAL EXAMINATION: VITAL SIGNS: Temperature is 99, blood pressure is 160/80, respiratory rate of 20, heart rate of 100. HEENT: Unremarkable. NECK: Supple. LUNGS: Have decreased breath sounds. HEART: Normal S1 and S2. ABDOMEN: Soft and nontender. LABORATORY EXAMINATION: Reveals a white count of 13,000, hemoglobin of 7. BUN of 22, creatinine of 4.2. Serology is noted. Microbiology is reviewed. Blood culture is positive for E. coli. The repeat blood cultures are negative. ASSESSMENT AND PLAN: A 72-year-old with sepsis with extended spectrum beta-lactamase Escherichia coli bacteremia, hemodialysis catheter associated bacteremia, history of small bowel obstruction, appendectomy, and history of systemic viral illness with influenza; and with meropenem, would need at least 10-14 days of therapy. Cesar Flowers MD
[2017-12-14 01:04] LABS: URINE BACTERIA LARGE (NEG); URINE WBC TNTC /hpf (0-6)
[2017-12-14] MEDS: Dextrose 5%/0.9% NS 1,000 ML IV SCH (06:43)
[2017-12-14 07:32] LABS: HEMOGLOBIN 7.4 g/dL (14.0-18.0); MEAN CELL VOLUME 91.2 fl (80.0-105.0); MEAN CORPUSCULAR HEMOGLOBIN 28.4 pg (25.0-35.0); MEAN CORPUSCULAR HGB CONC 31.1 g/dl (31.0-37.0); MEAN PLATELET VOLUME 9.9 fl (7.0-11.0); RBC 2.61 10^6/uL (3.5-6.1); RED CELL DISTRIBUTION WIDTH 18.8 % (11.5-14.5); WHITE BLOOD COUNT 11.9 10^3/ul (4.5-11.0)
[2017-12-14 07:54] LABS: ALB/GLOB RATIO 0.7 (1.1-1.8); ALBUMIN 2.4 g/dL (3.0-4.8); CALCIUM 7.9 mg/dL (8.4-10.5)
[2017-12-14] MEDS: Insulin Reg-MEDIUM-Coverage SC SCH ×3 (08:33→16:42)
--- NOTE | 2017-12-14 10:46 | PN ---
DATE: 12/14/2017 SUBJECTIVE: I saw him sitting in bed. He is comfortable. He wants to get out of bed. He is eating a little bit better. He is alert and oriented. He is comfortable. MEDICATIONS: He is on amikacin once. He is on zinc oxide, dextrose, Tivicay, Flomax, heparin, insulin coverage, potassium, Epivir, magnesium replacement, Merrem IV, MiraLax, Nephro-Christel, Os-Terrell, Toprol, Tylenol, vitamin D, Ziagen and Zyloprim. PHYSICAL EXAMINATION: VITAL SIGNS: He has a 98.6 temp, 102 pulse, 168/82 blood pressure, 20 respiratory rate, 90% O2 sat up to 98% O2 sat on room air. HEENT: His head is atraumatic, normocephalic. HEART: Regular rate. LUNGS: Decreased breath sounds, but clear. ABDOMEN: Soft. 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 He comes in with colitis, sepsis, end-stage renal disease. He has had HIV history, diabetes, prostate cancer. He is on dialysis, COPD. LABORATORY DATA: He has a 11.9 white count, best it has been, coming down; 7.4 hemoglobin; 23.8 hematocrit and a 342 platelets. 140 sodium; potassium 3.2, he will get some potassium. He has had a 16 BUN and creatinine 3.2, GFR is 19, sugar is 83, calcium is 7.9, total bili is 0.4, AST is 49, ALT is 27, alk phos 108. ASSESSMENT AND PLAN: He is being seen by Infectious Disease, Renal, GI, Cardiology. He has sepsis and a very long medical history. We will continue with aggressive treatment and care as per Infectious Disease. Parag Brownlee DO
[2017-12-14] MEDS: Multivitamin Vitamin B Complex (Nephro-Vite) Tab PO SCH (12:06)
[2017-12-14] MEDS: POLYETHYLENE GLYCOL 3350 17 GM/Dose PACKET PO SCH (12:21)
[2017-12-14] MEDS: Zinc Oxide Topical 40% Oint (Desitin) TOP PRN (12:24)
--- NOTE | 2017-12-14 13:10 | CP.PCM.PN ---
<Eden Driscollsharadbenson - Last Filed: 12/14/17 13:08> Subjective - Date & Time of Evaluation Date of Evaluation: 12/14/17 Time of Evaluation: 13:08 - Subjective Subjective: Podiatry Progress note: Dr. Caldwell/Dr. Dunn 72 year old male patient seen and evaluated at bedside for left heel deep tissue injury. Patient is AAOx3 and is in NAD. Complains of pain to the left heel today. Reports that he has been wearing the boot as advised. Denies of any other pedal complains today. Denies F/N/V/C/SOB/CP/headache. Objective - Vital Signs/Intake and Output Vital Signs (last 24 hours): Temp Pulse Resp BP Pulse Ox 98.6 F 102 H 20 168/82 H 90 L 12/13/17 22:56 12/13/17 22:56 12/13/17 22:56 12/13/17 22:56 12/13/17 22:56 Intake and Output: 12/14/17 12/14/17 06:59 18:59 Intake Total 720 Balance 720 - Medications Medications: Current Medications Abacavir Sulfate (Ziagen) 300 mg PO DAILY [facility] PRN Reason: Protocol Last Admin: 12/14/17 12:05 Dose: 300 mg Acetaminophen (Tylenol 325mg Tab) 650 mg PO Q4H PRN PRN Reason: Fever >100.4 F Last Admin: 12/14/17 12:08 Dose: 650 mg Allopurinol (Zyloprim) 100 mg PO DAILY [facility] Last Admin: 12/14/17 12:06 Dose: 100 mg Calcium/Vitamin D (Oscal-D 250 Mg-125 Units Tab) 1 tab PO DAILY [facility] Last Admin: 12/12/17 09:01 Dose: 1 tab Cholecalciferol (Vitamin D) 1,000 intlu PO DAILY [facility] Last Admin: 12/13/17 13:32 Dose: 1,000 intlu Dextrose (Dextrose 50% Inj) 50 ml IVP PRN PRN PRN Reason: Low blood sugar Last Admin: 12/11/17 17:12 Dose: 50 ml Heparin Sodium (Porcine) (Heparin) 2,400 units ICV ONCE [facility] Last Admin: 12/11/17 14:43 Dose: 2,400 units Heparin Sodium (Porcine) (Heparin) 2,200 units ICA ONCE [facility] Last Admin: 12/11/17 14:43 Dose: 2,200 units Meropenem 500 mg/ Sodium (Chloride) 50 mls @ 100 mls/hr IVPB 1400 [facility] PRN Reason: Protocol Stop: 12/18/17 17:13 Last Admin: 12/13/17 16:45 Dose: 100 mls/hr Dextrose/Sodium Chloride (Dextrose 5%/0.9% Ns 1000 Ml) 1,000 mls @ 30 mls/hr IV .Q24H [facility] Last Admin: 12/14/17 06:43 Dose: 30 mls/hr Insulin Human Regular (Humulin R Med) 0 units SC ACHS [facility] PRN Reason: Protocol Last Admin: 12/14/17 12:03 Dose: Not Given Metoprolol Succinate (Toprol Xl) 25 mg PO DAILY [facility] Last Admin: 12/13/17 13:31 Dose: 25 mg Nifedipine (Procardia Xl) 60 mg PO DAILY [facility] Dolutegravir Sodium [Tivicay] 50 Mg ( Home Med) 50 mg PO DAILY [facility] Last Admin: 12/11/17 09:47 Dose: Not Given Lamivudine [Epivir Hbv] 100 Mg ( Home Med) 100 mg PO DAILY [facility] Last Admin: 12/12/17 10:00 Dose: Not Given Petrolatum (Desitin Maximum Strength Topical 40% Oint) 0 gm TOP Q4H PRN PRN Reason: Rash Last Admin: 12/14/17 12:24 Dose: 2 applic Polyethylene Glycol (Miralax) 17 gm PO DAILY [facility] Last Admin: 12/14/17 12:21 Dose: 17 gm Tamsulosin HCl (Flomax) 0.4 mg PO DAILY [facility] Last Admin: 12/14/17 12:08 Dose: 0.4 mg Vitamin B Complex/Vit C/Folic Acid (Nephro-Christel) 1 tab PO 0800 [facility] Last Admin: 12/14/17 12:06 Dose: 1 tab - Labs Labs: 12/14/17 07:00 12/14/17 07:00 PT 17.7 SECONDS (9.4-12.5) H 12/08/17 17:00 INR 1.54 (0.93-1.08) H 12/08/17 17:00 APTT 41.8 Seconds (25.1-36.5) H 12/08/17 17:00 - Constitutional Appears: Well, Non-toxic, No Acute Distress - Extremities Exam Additional comments: Phong IGNACIO focused exam: VASC: DP/PT pulses palpable 1/4. Temperature gradient warm to cool. CFT < 3 sec to all digits. No pedal edema noted DERM: Stage 1 non-blanchable erythematous pressure ulceration noted to heel. No open lesions, no ecchymosis, skin and soft tissue intact, no clinical suspicion of active infection NEURO: Protective sensation grossly diminished ORTHO: mild tenderness to palpation of L plantar heel. 1st-3rd digit amputations noted to L foot. Charcot midfoot changes - Neurological Exam Neurological Exam: Alert, Awake, Oriented x3 - Psychiatric Exam Psychiatric exam: Normal Affect, Normal Mood Assessment and Plan - Assessment and Plan (Free Text) Assessment: 72 year old male patient with left heel stage 1 pressure ulceration secondary to bed bound status Plan: Patient seen and evaluated Discussed plan with attending Dr. Dunn Labs and vitals reviewed Optifoam applied to the L heel Multipodus boot ordered - to be worn at all times in bed Will follow patient while in-house <Jerrod Dunn - Last Filed: 12/14/17 14:44> Objective - Vital Signs/Intake and Output Vital Signs (last 24 hours): Temp Pulse Resp BP Pulse Ox 98.6 F 102 H 20 168/82 H 90 L 12/13/17 22:56 12/13/17 22:56 12/13/17 22:56 12/13/17 22:56 12/13/17 22:56 Intake and Output: 12/14/17 12/14/17 06:59 18:59 Intake Total 720 Balance 720 - Medications Medications: Current Medications Abacavir Sulfate (Ziagen) 300 mg PO DAILY [facility] PRN Reason: Protocol Last Admin: 12/14/17 12:05 Dose: 300 mg Acetaminophen (Tylenol 325mg Tab) 650 mg PO Q4H PRN PRN Reason: Fever >100.4 F Last Admin: 12/14/17 12:08 Dose: 650 mg Allopurinol (Zyloprim) 100 mg PO DAILY [facility] Last Admin: 12/14/17 12:06 Dose: 100 mg Calcium/Vitamin D (Oscal-D 250 Mg-125 Units Tab) 1 tab PO DAILY [facility] Last Admin: 12/12/17 09:01 Dose: 1 tab Cholecalciferol (Vitamin D) 1,000 intlu PO DAILY [facility] Last Admin: 12/13/17 13:32 Dose: 1,000 intlu Dextrose (Dextrose 50% Inj) 50 ml IVP PRN PRN PRN Reason: Low blood sugar Last Admin: 12/11/17 17:12 Dose: 50 ml Heparin Sodium (Porcine) (Heparin) 2,400 units ICV ONCE [facility] Last Admin: 12/11/17 14:43 Dose: 2,400 units Heparin Sodium (Porcine) (Heparin) 2,200 units ICA ONCE [facility] Last Admin: 12/11/17 14:43 Dose: 2,200 units Meropenem 500 mg/ Sodium (Chloride) 50 mls @ 100 mls/hr IVPB 1400 [facility] PRN Reason: Protocol Stop: 12/18/17 17:13 Last Admin: 12/13/17 16:45 Dose: 100 mls/hr Dextrose/Sodium Chloride (Dextrose 5%/0.9% Ns 1000 Ml) 1,000 mls @ 30 mls/hr IV .Q24H [facility] Last Admin: 12/14/17 06:43 Dose: 30 mls/hr Insulin Human Regular (Humulin R Med) 0 units SC ACHS [facility] PRN Reason: Protocol Last Admin: 12/14/17 12:03 Dose: Not Given Metoprolol Succinate (Toprol Xl) 25 mg PO DAILY [facility] Last Admin: 12/13/17 13:31 Dose: 25 mg Nifedipine (Procardia Xl) 60 mg PO DAILY [facility] Dolutegravir Sodium [Tivicay] 50 Mg ( Home Med) 50 mg PO DAILY [facility] Last Admin: 12/11/17 09:47 Dose: Not Given Lamivudine [Epivir Hbv] 100 Mg ( Home Med) 100 mg PO DAILY [facility] Last Admin: 12/12/17 10:00 Dose: Not Given Petrolatum (Desitin Maximum Strength Topical 40% Oint) 0 gm TOP Q4H PRN PRN Reason: Rash Last Admin: 12/14/17 12:24 Dose: 2 applic Polyethylene Glycol (Miralax) 17 gm PO DAILY [facility] Last Admin: 12/14/17 12:21 Dose: 17 gm Tamsulosin HCl (Flomax) 0.4 mg PO DAILY [facility] Last Admin: 12/14/17 12:08 Dose: 0.4 mg Vitamin B Complex/Vit C/Folic Acid (Nephro-Christel) 1 tab PO 0800 [facility] Last Admin: 12/14/17 12:06 Dose: 1 tab - Labs Labs: 12/14/17 07:00 12/14/17 07:00 PT 17.7 SECONDS (9.4-12.5) H 12/08/17 17:00 INR 1.54 (0.93-1.08) H 12/08/17 17:00 APTT 41.8 Seconds (25.1-36.5) H 12/08/17 17:00 Attending/Attestation - Attestation I have personally seen and examined this patient.: Yes I have fully participated in the care of the patient.: Yes I have reviewed all pertinent clinical information, including history, physical exam and plan: Yes
[2017-12-14] MEDS ORDERED: Lidocaine 2% Inj (20ml) ONE ×2 (13:18→13:45)
[2017-12-14] MEDS ORDERED: Midazolam 2 MG/2 ML VIAL ONE (13:19)
[2017-12-14] MEDS ORDERED: Iodixanol 320 MG/ML 100 ML BOTTLE IV ONE (13:19)
--- NOTE | 2017-12-14 14:08 | CP.PCM.PN ---
Subjective - Date & Time of Evaluation Date of Evaluation: 12/14/17 Time of Evaluation: 12:25 - Subjective Subjective: No fevers, not in distress, still weak-looking. Objective - Vital Signs/Intake and Output Vital Signs (last 24 hours): Temp Pulse Resp BP Pulse Ox 98.6 F 102 H 20 168/82 H 90 L 12/13/17 22:56 12/13/17 22:56 12/13/17 22:56 12/13/17 22:56 12/13/17 22:56 Intake and Output: 12/14/17 12/14/17 06:59 18:59 Intake Total 720 Balance 720 - Medications Medications: Current Medications Abacavir Sulfate (Ziagen) 300 mg PO DAILY [facility] PRN Reason: Protocol Last Admin: 12/13/17 13:31 Dose: 300 mg Acetaminophen (Tylenol 325mg Tab) 650 mg PO Q4H PRN PRN Reason: Fever >100.4 F Last Admin: 12/14/17 00:05 Dose: 650 mg Allopurinol (Zyloprim) 100 mg PO DAILY [facility] Last Admin: 12/13/17 13:32 Dose: 100 mg Calcium/Vitamin D (Oscal-D 250 Mg-125 Units Tab) 1 tab PO DAILY [facility] Last Admin: 12/12/17 09:01 Dose: 1 tab Cholecalciferol (Vitamin D) 1,000 intlu PO DAILY [facility] Last Admin: 12/13/17 13:32 Dose: 1,000 intlu Dextrose (Dextrose 50% Inj) 50 ml IVP PRN PRN PRN Reason: Low blood sugar Last Admin: 12/11/17 17:12 Dose: 50 ml Heparin Sodium (Porcine) (Heparin) 2,400 units ICV ONCE [facility] Last Admin: 12/11/17 14:43 Dose: 2,400 units Heparin Sodium (Porcine) (Heparin) 2,200 units ICA ONCE [facility] Last Admin: 12/11/17 14:43 Dose: 2,200 units Meropenem 500 mg/ Sodium (Chloride) 50 mls @ 100 mls/hr IVPB 1400 [facility] PRN Reason: Protocol Stop: 12/18/17 17:13 Last Admin: 12/13/17 16:45 Dose: 100 mls/hr Dextrose/Sodium Chloride (Dextrose 5%/0.9% Ns 1000 Ml) 1,000 mls @ 30 mls/hr IV .Q24H [facility] Last Admin: 12/14/17 06:43 Dose: 30 mls/hr Insulin Human Regular (Humulin R Med) 0 units SC ACHS [facility] PRN Reason: Protocol Last Admin: 12/14/17 08:33 Dose: Not Given Metoprolol Succinate (Toprol Xl) 25 mg PO DAILY [facility] Last Admin: 12/13/17 13:31 Dose: 25 mg Dolutegravir Sodium [Tivicay] 50 Mg ( Home Med) 50 mg PO DAILY [facility] Last Admin: 12/11/17 09:47 Dose: Not Given Lamivudine [Epivir Hbv] 100 Mg ( Home Med) 100 mg PO DAILY [facility] Last Admin: 12/12/17 10:00 Dose: Not Given Petrolatum (Desitin Maximum Strength Topical 40% Oint) 0 gm TOP Q4H PRN PRN Reason: Rash Last Admin: 12/13/17 16:45 Dose: 1 applic Polyethylene Glycol (Miralax) 17 gm PO DAILY [facility] Last Admin: 12/13/17 13:33 Dose: Not Given Tamsulosin HCl (Flomax) 0.4 mg PO DAILY [facility] Last Admin: 12/13/17 13:31 Dose: 0.4 mg Vitamin B Complex/Vit C/Folic Acid (Nephro-Christel) 1 tab PO 0800 [facility] Last Admin: 12/13/17 13:31 Dose: 1 tab - Labs Labs: 12/14/17 07:00 12/14/17 07:00 PT 17.7 SECONDS (9.4-12.5) H 12/08/17 17:00 INR 1.54 (0.93-1.08) H 12/08/17 17:00 APTT 41.8 Seconds (25.1-36.5) H 12/08/17 17:00 - Constitutional Appears: Chronically Ill - Head Exam Head Exam: NORMAL INSPECTION - ENT Exam ENT Exam: Mucous Membranes Moist - Neck Exam Neck Exam: absent: Meningismus - Respiratory Exam Respiratory Exam: Decreased Breath Sounds - Cardiovascular Exam Cardiovascular Exam: +S1, +S2 - GI/Abdominal Exam GI & Abdominal Exam: Soft. absent: Tenderness Assessment and Plan - Assessment and Plan (Free Text) Plan: Assessment sepsis due to ESBL E. coli bacteremia, consider HD catheter associated bacteremia history of small bowel obstruction S/P ex-lap, adhesiolysis, repair of umbilical hernia and appendectomy S/P UTI severe PAD S/P angioplasty of the left tibial artery S/P right AKA UTI with MRSA and Strep viridans systemic viral illness with Influenza history of left foot 3rd digit chronic osteomyelitis S/P amputation and debridement right sided nephrolithiasis history of severe sepsis with acute on chronic renal failure probably due to pyelonephritis with E. coli bacteremia history of C. diff. associated diarrhea Charcot foot, left history of left 2nd toe dry gangrene Chronic renal failure on hemodialysis HTN prostate CA HIV ([place] with [place] CD4 [place] here at [facility] [place] [facility] [place] 03/2016 349 and virus load < 1.3 log) history of osteomyelitis of left first toe S/P amputation (2015) gout history of left foot ulcers Plan continue Merrem to complete at least 10-14 days of therapy duplex U/s of RUE does not show DVT repeat blood cx are negative so far - concerned about HD catheter infection - should be removed and changed continue antiretroviral therapy (lamivudine, abacavir on formulary but dolutegravir should be taken by patient from his home supply) overall prognosis is poor
--- NOTE | 2017-12-14 15:40 | CP.PCM.PN ---
Subjective - Date & Time of Evaluation Date of Evaluation: 12/14/17 Time of Evaluation: 15:38 - Subjective Subjective: Nephrology Consultation Note: Assessment: Stable ESBL E.Coli SEPSIS ? source (suspect permacath per ID) Enteritis and Colitis Hypokalemia, hypoglycemia recent High grade SBO s/p surgery, appendectomy: imporved hx of prostate CA Hypertensive Chronic Kidney Disease (I12.9) ESRD on HD via permacath (TTS) Anemia (D64.9), HTN (I12.9) HIV on HAART, PVD s/p angioplasty s/p Rt AKA Plan plan for HD tomorrow as per TTS schedule. nephrovite 1 tab/day. aransep 60 mcg weekly for anemia 12/10/17. PRBC as needed . last Hb 7.4 hold phos binders as pt with limited oral intake and low serum Phos Hypertension control with meds as ordered. resume nifedipine supplement K started D5NS as pt with limited oral intake and hypoglycemia. can d.c IVF once oral intake better ID and GI following Dose meds/antibiotics for ESRD status. Avoid fleets enema/magnesium based laxatives. Further work up/management as per primary team. Thanks for allowing me to participate in care of your patient. Please call if any Qs. d/w team Dr Yandel Arechiga Office: [phone] HPI: Pt is a 72 y/o M with hx of HIV on HAART, PVD s/p angioplasty, Rt AKA, hypertension (10-15 years), ESRD on HD (via permacath) TTS @ [facility] [place], left foot toe amputations, prostate CA presented with pain abdomen and bacteremia renal consult for ESRD management pt doesn't feel well. says everything is bothering him as lower ext pain, groin pain. says alcala catheter was removed 2 weeks ago ROS: denies CP/SOB. all other neg except as in HPI. c/o abdomen pain. s/p CT guided aspiration 11/19/17 feels same with pain in heels, ankle. undergoing CT angiogram abdomen 12/12/17 s/p permacath change 12/14/2017 Physical Examination: General Appearance: in no acute respiratory distress, facial muscles wasted, ill appearing Vitals reviewed and noted as below Head; Atraumatic, normocephalic ENT: no ulcers no thrush. Tongue is midline dry. Oropharynx: no rash or ulcers. EYES: Pupils are equal, round and reactive to light accommodation. Eye muscles and extraocular movement intact. Sclera is anicteric. Neck; supple no lymphadenopathy, no thyromegaly or bruit Lungs: Normal respiratory rate/effort. Breath sounds bilateral clear Heart: Normal rate. s1s2 normal. No rub or gallop. Extremities: no edema. No varicose veins. s/p Rt AKA Neurological: Patient is alert oriented x 3 follow commands,. no focal deficit Skin: Warm and dry. Normal turgor. Palpitation: Normal elasticity for age. Abdomen: Abdomen is soft. distended and tender in lower abdomen area with some guarding. Psych: limited insight. flat affect MSK: Digits and nails normal, left foot toe amputations in past. Rt AKA. : kidney not palpable. Access: permacath and maturing left AVF Labs/imaging/EKG reviewed. Past medical history, past surgical history, family history, social history, allergy reviewed and noted as below Family hx: sister was on dialysis. Rest non-contributory Objective - Vital Signs/Intake and Output Vital Signs (last 24 hours): Temp Pulse Resp BP Pulse Ox 97.8 F 92 H 18 119/69 99 12/14/17 15:15 12/14/17 15:15 12/14/17 15:15 12/14/17 15:15 12/14/17 15:15 Intake and Output: 12/14/17 12/14/17 06:59 18:59 Intake Total 720 Balance 720 - Medications Medications: Current Medications Abacavir Sulfate (Ziagen) 300 mg PO DAILY [facility] PRN Reason: Protocol Last Admin: 12/14/17 12:05 Dose: 300 mg Acetaminophen (Tylenol 325mg Tab) 650 mg PO Q4H PRN PRN Reason: Fever >100.4 F Last Admin: 12/14/17 12:08 Dose: 650 mg Allopurinol (Zyloprim) 100 mg PO DAILY [facility] Last Admin: 12/14/17 12:06 Dose: 100 mg Calcium/Vitamin D (Oscal-D 250 Mg-125 Units Tab) 1 tab PO DAILY [facility] Last Admin: 12/12/17 09:01 Dose: 1 tab Cholecalciferol (Vitamin D) 1,000 intlu PO DAILY [facility] Last Admin: 12/13/17 13:32 Dose: 1,000 intlu Dextrose (Dextrose 50% Inj) 50 ml IVP PRN PRN PRN Reason: Low blood sugar Last Admin: 12/11/17 17:12 Dose: 50 ml Heparin Sodium (Porcine) (Heparin) 2,400 units ICV ONCE [facility] Last Admin: 12/11/17 14:43 Dose: 2,400 units Heparin Sodium (Porcine) (Heparin) 2,200 units ICA ONCE [facility] Last Admin: 12/11/17 14:43 Dose: 2,200 units Meropenem 500 mg/ Sodium (Chloride) 50 mls @ 100 mls/hr IVPB 1400 [facility] PRN Reason: Protocol Stop: 12/18/17 17:13 Last Admin: 12/13/17 16:45 Dose: 100 mls/hr Dextrose/Sodium Chloride (Dextrose 5%/0.9% Ns 1000 Ml) 1,000 mls @ 30 mls/hr IV .Q24H [facility] Last Admin: 12/14/17 06:43 Dose: 30 mls/hr Insulin Human Regular (Humulin R Med) 0 units SC ACHS [facility] PRN Reason: Protocol Last Admin: 12/14/17 12:03 Dose: Not Given Metoprolol Succinate (Toprol Xl) 25 mg PO DAILY [facility] Last Admin: 12/13/17 13:31 Dose: 25 mg Nifedipine (Procardia Xl) 60 mg PO DAILY [facility] Dolutegravir Sodium [Tivicay] 50 Mg ( Home Med) 50 mg PO DAILY [facility] Last Admin: 12/11/17 09:47 Dose: Not Given Lamivudine [Epivir Hbv] 100 Mg ( Home Med) 100 mg PO DAILY [facility] Last Admin: 12/12/17 10:00 Dose: Not Given Petrolatum (Desitin Maximum Strength Topical 40% Oint) 0 gm TOP Q4H PRN PRN Reason: Rash Last Admin: 12/14/17 12:24 Dose: 2 applic Polyethylene Glycol (Miralax) 17 gm PO DAILY [facility] Last Admin: 12/14/17 12:21 Dose: 17 gm Tamsulosin HCl (Flomax) 0.4 mg PO DAILY [facility] Last Admin: 12/14/17 12:08 Dose: 0.4 mg Vitamin B Complex/Vit C/Folic Acid (Nephro-Christel) 1 tab PO 0800 [facility] Last Admin: 12/14/17 12:06 Dose: 1 tab - Labs Labs: 12/14/17 07:00 12/14/17 07:00 PT 17.7 SECONDS (9.4-12.5) H 12/08/17 17:00 INR 1.54 (0.93-1.08) H 12/08/17 17:00 APTT 41.8 Seconds (25.1-36.5) H 12/08/17 17:00
--- NOTE | 2017-12-14 15:47 | PN ---
DATE: 12/14/2017 CARDIOLOGY FOLLOWUP SUBJECTIVE: The patient is without shortness of breath. PHYSICAL EXAMINATION: VITAL SIGNS: Stable. Blood pressure is 130/70. NECK: Negative JVD. LUNGS: No rales noted. HEART: Reveals S1, S2. EXTREMITIES: Status post amputation. LABORATORY DATA: Hemoglobin is 7.4. BUN and creatinine are 16 and 3.2. IMPRESSION: 1. Peripheral vascular disease. 2. Sepsis from the lower extremity. 3. End-stage renal disease. 4. Aortic valve sclerosis. 5. Mitral regurgitation. 6. Chronic obstructive pulmonary disease. PLAN: Given these findings, the patient is on continued wound care and IV antibiotics. The patient remains hemodynamically stable. Emmanuel Weller MD
[2017-12-14] MEDS: Meropenem 500 MG in Sodium Chloride 0.9% 50 ML IVPB SCH (15:52)
--- NOTE | 2017-12-14 16:01 | VASCULAR ---
PROCEDURE: 1. Ultrasound and fluoroscopic tunneled left IJ dialysis catheter. 2. Removed infected tunneled right IJ dialysis catheter CLINICAL HISTORY: ESRD. Sepsis. Infected tunneled right IJ catheter. Needs catheter changed. PHYSICIAN(S): Emmanuel Good M.D. TECHNIQUE: The relative risks and indications for the procedure were explained to the patient and informed written consent obtained. The patient was placed supine on the arteriography table and the left neck/chest was prepped and draped in the usual sterile fashion. 1% Xylocaine was used to anesthetize the skin and soft tissues at the puncture site. Conscious sedation and monitoring were provided throughout the procedure by a nurse. Under direct ultrasound guidance, the leftinternal jugular vein was punctured with a micropuncture set. A 0.035 Glidewire was advanced into the IVC. Sequential dilatation was performed with subsequent placement of a 28cmNext step catheter with its tip in the right atrium. A retrograde tunnel below the left clavicle was performed. The catheter was trimmed and the hub attached. Both ports aspirate and inject easily. The catheter was secured and a dressing applied. Next the infected tunneled right IJ dialysis catheter was prepped and draped usual sterile fashion. 1 percent xylocaine was used to anesthetize the exit site and tunnel. The catheter was bluntly dissected and removed. A single interrupted suture was placed at the exit site IMPRESSION: 1. Ultrasound and fluoroscopically placed left IJ tunneled dialysis catheter. 2. Removal the patient's infected tunneled right IJ dialysis catheter
[2017-12-14] MEDS: Dolutegravir Sodium [Tivicay] 50 mg (HOME MED) PO SCH (16:41)
[2017-12-14] MEDS: LAMIVUDINE 100 MG PO SCH (17:39)
[2017-12-15] MEDS: Dextrose 5%/0.9% NS 1,000 ML IV SCH ×2 (06:09→17:07)
[2017-12-15] MEDS: Insulin Reg-MEDIUM-Coverage SC SCH ×4 (07:30→23:00)
[2017-12-15 07:34] LABS: MEAN CELL VOLUME 91.3 fl (80.0-105.0); MEAN CORPUSCULAR HEMOGLOBIN 29.1 pg (25.0-35.0); MEAN CORPUSCULAR HGB CONC 31.9 g/dl (31.0-37.0); MEAN PLATELET VOLUME 10.4 fl (7.0-11.0); RBC 2.75 10^6/uL (3.5-6.1); RED CELL DISTRIBUTION WIDTH 18.7 % (11.5-14.5); WHITE BLOOD COUNT 11.3 10^3/ul (4.5-11.0)
[2017-12-15 08:18] LABS: ALB/GLOB RATIO 0.7 (1.1-1.8); ALBUMIN 2.4 g/dL (3.0-4.8); CALCIUM 7.8 mg/dL (8.4-10.5)
--- NOTE | 2017-12-15 08:19 | CP.PCM.PN ---
<Michelle Levi - Last Filed: 12/15/17 08:17> Subjective - Date & Time of Evaluation Date of Evaluation: 12/15/17 Time of Evaluation: 08:17 - Subjective Subjective: Podiatry Progress note: Dr. Caldwell/Dr. Dunn 72 year old male patient seen and evaluated at bedside for left heel deep tissue injury. Patient is AAOx3 and is in NAD. Complains of pain to the left heel today. Reports that he has been wearing the boot as advised. Denies of any other pedal complains today. Denies F/N/V/C/SOB/CP/headache. Objective - Vital Signs/Intake and Output Vital Signs (last 24 hours): Temp Pulse Resp BP Pulse Ox 97.8 F 91 H 18 132/77 98 12/14/17 15:30 12/14/17 15:30 12/14/17 15:30 12/14/17 15:30 12/14/17 15:30 Intake and Output: 12/15/17 12/15/17 06:59 18:59 Intake Total 630 Balance 630 - Medications Medications: Current Medications Abacavir Sulfate (Ziagen) 300 mg PO DAILY [facility] PRN Reason: Protocol Last Admin: 12/14/17 12:05 Dose: 300 mg Acetaminophen (Tylenol 325mg Tab) 650 mg PO Q4H PRN PRN Reason: Fever >100.4 F Last Admin: 12/14/17 12:08 Dose: 650 mg Allopurinol (Zyloprim) 100 mg PO DAILY [facility] Last Admin: 12/14/17 12:06 Dose: 100 mg Calcium/Vitamin D (Oscal-D 250 Mg-125 Units Tab) 1 tab PO DAILY [facility] Last Admin: 12/12/17 09:01 Dose: 1 tab Cholecalciferol (Vitamin D) 1,000 intlu PO DAILY [facility] Last Admin: 12/13/17 13:32 Dose: 1,000 intlu Dextrose (Dextrose 50% Inj) 50 ml IVP PRN PRN PRN Reason: Low blood sugar Last Admin: 12/11/17 17:12 Dose: 50 ml Heparin Sodium (Porcine) (Heparin) 2,400 units ICV ONCE [facility] Last Admin: 12/11/17 14:43 Dose: 2,400 units Heparin Sodium (Porcine) (Heparin) 2,200 units ICA ONCE [facility] Last Admin: 12/11/17 14:43 Dose: 2,200 units Meropenem 500 mg/ Sodium (Chloride) 50 mls @ 100 mls/hr IVPB 1400 [facility] PRN Reason: Protocol Stop: 12/18/17 17:13 Last Admin: 12/14/17 15:52 Dose: 100 mls/hr Dextrose/Sodium Chloride (Dextrose 5%/0.9% Ns 1000 Ml) 1,000 mls @ 30 mls/hr IV .Q24H [facility] Last Admin: 12/15/17 06:09 Dose: 30 mls/hr Insulin Human Regular (Humulin R Med) 0 units SC ACHS [facility] PRN Reason: Protocol Last Admin: 12/14/17 16:42 Dose: Not Given Metoprolol Succinate (Toprol Xl) 25 mg PO DAILY [facility] Last Admin: 12/13/17 13:31 Dose: 25 mg Nifedipine (Procardia Xl) 60 mg PO DAILY [facility] Dolutegravir Sodium [Tivicay] 50 Mg ( Home Med) 50 mg PO DAILY [facility] Last Admin: 12/14/17 16:41 Dose: Not Given Lamivudine [Epivir Hbv] 100 Mg ( Home Med) 100 mg PO DAILY [facility] Last Admin: 12/14/17 17:39 Dose: Not Given Petrolatum (Desitin Maximum Strength Topical 40% Oint) 0 gm TOP Q4H PRN PRN Reason: Rash Last Admin: 12/14/17 12:24 Dose: 2 applic Polyethylene Glycol (Miralax) 17 gm PO DAILY [facility] Last Admin: 12/14/17 12:21 Dose: 17 gm Tamsulosin HCl (Flomax) 0.4 mg PO DAILY [facility] Last Admin: 12/14/17 12:08 Dose: 0.4 mg Vitamin B Complex/Vit C/Folic Acid (Nephro-Christel) 1 tab PO 0800 [facility] Last Admin: 12/14/17 12:06 Dose: 1 tab - Labs Labs: 12/15/17 06:40 12/14/17 07:00 PT 17.7 SECONDS (9.4-12.5) H 12/08/17 17:00 INR 1.54 (0.93-1.08) H 12/08/17 17:00 APTT 41.8 Seconds (25.1-36.5) H 12/08/17 17:00 - Constitutional Appears: Well, Non-toxic, No Acute Distress - Extremities Exam Additional comments: Phong IGNACIO focused exam: VASC: DP/PT pulses palpable 1/4. Temperature gradient warm to cool. CFT < 3 sec to all digits. No pedal edema noted DERM: Stage 1 non-blanchable erythematous pressure ulceration noted to heel. No open lesions, no ecchymosis, skin and soft tissue intact, no clinical suspicion of active infection NEURO: Protective sensation grossly diminished ORTHO: mild tenderness to palpation of L plantar heel. 1st-3rd digit amputations noted to L foot. Charcot midfoot changes - Neurological Exam Neurological Exam: Alert, Awake, Oriented x3 Assessment and Plan - Assessment and Plan (Free Text) Assessment: 72 year old male patient with left heel stage 1 pressure ulceration secondary to bed bound status Plan: Patient seen and evaluated at bedside with attending Dr. Dunn Labs and vitals reviewed; WBC 11.3 Optifoam applied to bilateral heels Multipodus boot ordered - to be worn at all times in bed Rx bactroban Will follow patient while in-house <Jerrod Dunn - Last Filed: 12/18/17 11:07> Objective - Vital Signs/Intake and Output Vital Signs (last 24 hours): Temp Pulse Resp BP Pulse Ox 99 F 101 H 18 142/76 96 12/18/17 08:25 12/18/17 08:25 12/18/17 08:25 12/18/17 08:25 12/18/17 08:25 Intake and Output: 12/18/17 12/18/17 06:59 18:59 Intake Total 560 Balance 560 - Medications Medications: Current Medications Abacavir Sulfate (Ziagen) 300 mg PO DAILY [facility] PRN Reason: Protocol Last Admin: 12/17/17 10:20 Dose: 300 mg Acetaminophen (Tylenol 325mg Tab) 650 mg PO Q4H PRN PRN Reason: Fever >100.4 F Last Admin: 12/14/17 12:08 Dose: 650 mg Allopurinol (Zyloprim) 100 mg PO DAILY [facility] Last Admin: 12/17/17 10:16 Dose: 100 mg Bismuth Subsalicylate (Pepto-Bismol) 262 mg PO Q6H PRN PRN Reason: Diarrhea Last Admin: 12/17/17 13:15 Dose: 262 mg Calcium/Vitamin D (Oscal-D 250 Mg-125 Units Tab) 1 tab PO DAILY [facility] Last Admin: 12/17/17 10:15 Dose: 1 tab Cholecalciferol (Vitamin D) 1,000 intlu PO DAILY [facility] Last Admin: 12/17/17 10:21 Dose: 1,000 intlu Darbepoetin Mario (Aranesp) 100 mcg IVP ONCE ONE Stop: 12/18/17 11:24 Dextrose (Dextrose 50% Inj) 50 ml IVP PRN PRN PRN Reason: Low blood sugar Last Admin: 12/11/17 17:12 Dose: 50 ml Heparin Sodium (Porcine) (Heparin) 1,700 units ICV TUTA [facility] Last Admin: 12/15/17 17:08 Dose: Not Given Meropenem 500 mg/ Sodium (Chloride) 50 mls @ 100 mls/hr IVPB 1400 [facility] PRN Reason: Protocol Stop: 12/18/17 17:13 Last Admin: 12/17/17 13:30 Dose: 100 mls/hr Dextrose/Sodium Chloride (Dextrose 5%/0.9% Ns 1000 Ml) 1,000 mls @ 30 mls/hr IV .Q24H [facility] Last Admin: 12/18/17 06:01 Dose: 30 mls/hr Insulin Human Regular (Humulin R Med) 0 units SC ACHS [facility] PRN Reason: Protocol Last Admin: 12/18/17 07:49 Dose: Not Given Metoprolol Succinate (Toprol Xl) 25 mg PO DAILY [facility] Last Admin: 12/17/17 10:14 Dose: 25 mg Mupirocin (Bactroban Ointment) 0 gm TOP BID [facility] Last Admin: 12/17/17 17:29 Dose: 1 applic Nifedipine (Procardia Xl) 60 mg PO DAILY [facility] Last Admin: 12/17/17 10:15 Dose: 60 mg Dolutegravir Sodium [Tivicay] 50 Mg ( Home Med) 50 mg PO DAILY [facility] Last Admin: 12/17/17 10:18 Dose: 50 mg Lamivudine [Epivir Hbv] 100 Mg ( Home Med) 100 mg PO DAILY [facility] Last Admin: 12/17/17 10:18 Dose: 100 mg Pantoprazole Sodium (Protonix Ec Tab) 40 mg PO ACB [facility] Last Admin: 12/18/17 08:24 Dose: 40 mg Petrolatum (Desitin Maximum Strength Topical 40% Oint) 0 gm TOP Q4H PRN PRN Reason: Rash Last Admin: 12/14/17 12:24 Dose: 2 applic Tamsulosin HCl (Flomax) 0.4 mg PO DAILY [facility] Last Admin: 12/17/17 10:14 Dose: 0.4 mg Vitamin B Complex/Vit C/Folic Acid (Nephro-Christel) 1 tab PO 0800 [facility] Last Admin: 12/18/17 08:23 Dose: 1 tab - Labs Labs: 12/17/17 07:30 12/17/17 07:30 PT 17.7 SECONDS (9.4-12.5) H 12/08/17 17:00 INR 1.54 (0.93-1.08) H 12/08/17 17:00 APTT 41.8 Seconds (25.1-36.5) H 12/08/17 17:00 Attending/Attestation - Attestation I have personally seen and examined this patient.: Yes I have fully participated in the care of the patient.: Yes I have reviewed all pertinent clinical information, including history, physical exam and plan: Yes
--- NOTE | 2017-12-15 15:27 | PN ---
DATE: 12/15/2017 SUBJECTIVE: I saw Raza in dialysis this morning. He is comfortable. He is sleeping. He is easily arousable. He has got an appetite. He is in good spirits. MEDICATIONS: He is on Bactroban cream, Desitin, dextrose, Flomax, Tivicay, heparin, insulin, Epivir, Merrem IV, MiraLax, Nephro-Christel, Os-Terrell, Procardia, Toprol, Tylenol, vitamin D, Ziagen, and Zyloprim. PHYSICAL EXAMINATION: VITAL SIGNS: He has a 98.1 temperature, 90 pulse, 139/70 blood pressure, 20 respiratory rate, 97% O2 sat on room air. HEENT: His head is atraumatic, normocephalic. HEART: Regular rate. LUNGS: Decreased breath sounds, but clear. ABDOMEN: Soft. EXTREMITIES: He has got a right AKA, but no edema. LABORATORY DATA: He has an 11.3 white count; 8 hemoglobin, went up a little bit; 25.1 hematocrit with 442 platelets. He has 140 sodium; potassium 3, I will replace his potassium; BUN 25; creatinine 4, he is on dialysis; GFR is 18; calcium is 7.8; sugar is 81. Total bilirubin is 0.3, AST is 53, ALT is 29, alkaline phosphatase is 118. ASSESSMENT AND PLAN: He is being seen by Renal, Infectious Disease, Cardiology, Podiatry, and Vascular. He is comfortable. No fevers. He has sepsis, bacteremia. We will continue aggressive treatment and care, Merrem for 10-14 days. We will check his labs tomorrow. Parag Brownlee DO
[2017-12-15] MEDS: Metoprolol Succinate 25 mg XL Tab PO SCH ×2 (15:45→15:51)
[2017-12-15] MEDS: Meropenem 500 MG in Sodium Chloride 0.9% 50 ML IVPB SCH (15:47)
[2017-12-15] MEDS: NIFEdipine 60 mg ER Tab PO SCH (15:48)
[2017-12-15] MEDS: Dolutegravir Sodium [Tivicay] 50 mg (HOME MED) PO SCH (15:50)
[2017-12-15] MEDS: Calcium-Vit D 250 mg-125 Units Tab UD PO SCH (15:51)
[2017-12-15] MEDS: Multivitamin Vitamin B Complex (Nephro-Vite) Tab PO SCH (15:51)
[2017-12-15] MEDS: Cholecalciferol 1,000 INTLU TAB PO SCH (15:52)
[2017-12-15] MEDS: POLYETHYLENE GLYCOL 3350 17 GM/Dose PACKET PO SCH (17:12)
[2017-12-15] MEDS: LAMIVUDINE 100 MG PO SCH (17:12)
[2017-12-15] MEDS ORDERED: Bismuth Subsalicylate 262 mg/15 ml Sus (240 ml) PO SCH (17:45)
[2017-12-15] MEDS: Bismuth Subsalicylate 262 mg/15 ml Sus (240 ml) PO PRN (18:31)
--- NOTE | 2017-12-15 22:37 | CP.PCM.PN ---
Subjective - Date & Time of Evaluation Date of Evaluation: 12/15/17 Time of Evaluation: 14:00 - Subjective Subjective: renal follow up note Assessment: Stable ESBL E.Coli SEPSIS ? source (suspect permacath per ID) Enteritis and Colitis Hypokalemia, hypoglycemia recent High grade SBO s/p surgery, appendectomy: imporved hx of prostate CA Hypertensive Chronic Kidney Disease (I12.9) ESRD on HD via permacath (TTS) Anemia (D64.9), HTN (I12.9) HIV on HAART, PVD s/p angioplasty s/p Rt AKA Plan HD TTS schedule. nephrovite 1 tab/day. aransep 60 mcg weekly for anemia 12/10/17. PRBC as needed monitor phos levels, no binders as levels low Hypertension control with meds as ordered. lytes reviewed, hypokalemia monitor ID and GI following Dose meds/antibiotics for ESRD status. Physical Examination: General Appearance: in no acute respiratory distress, facial muscles wasted, ill appearing Vitals reviewed and noted as below Head; Atraumatic, normocephalic ENT: no ulcers Oropharynx: no rash or ulcers. EYES: Eye muscles and extraocular movement intact. Sclera is anicteric. Neck; supple no lymphadenopathy, no thyromegaly or bruit Lungs: Normal respiratory rate/effort. Breath sounds bilateral clear Heart: Normal rate. s1s2 normal. No rub or gallop. Extremities: no edema. No varicose veins. s/p Rt AKA Neurological: Patient is alert oriented x 3 follow commands,. no focal deficit Skin: Warm and dry. Normal turgor. Palpitation: Normal elasticity for age. Abdomen: Abdomen is soft. distended Psych: limited insight. flat affect MSK: Digits and nails normal, left foot toe amputations in past. Rt AKA. Objective - Vital Signs/Intake and Output Vital Signs (last 24 hours): Temp Pulse Resp BP Pulse Ox 98.7 F 101 H 20 160/62 H 97 12/15/17 14:00 12/15/17 14:00 12/15/17 14:00 12/15/17 14:00 12/15/17 14:00 Intake and Output: 12/15/17 12/16/17 18:59 06:59 Intake Total 150 Balance 150 - Medications Medications: Current Medications Abacavir Sulfate (Ziagen) 300 mg PO DAILY [facility] PRN Reason: Protocol Last Admin: 12/15/17 15:51 Dose: 300 mg Acetaminophen (Tylenol 325mg Tab) 650 mg PO Q4H PRN PRN Reason: Fever >100.4 F Last Admin: 12/14/17 12:08 Dose: 650 mg Allopurinol (Zyloprim) 100 mg PO DAILY [facility] Last Admin: 12/15/17 15:52 Dose: 100 mg Bismuth Subsalicylate (Pepto-Bismol) 262 mg PO Q6H PRN PRN Reason: Diarrhea Last Admin: 12/15/17 18:31 Dose: 262 mg Calcium/Vitamin D (Oscal-D 250 Mg-125 Units Tab) 1 tab PO DAILY [facility] Last Admin: 12/15/17 15:51 Dose: 1 tab Cholecalciferol (Vitamin D) 1,000 intlu PO DAILY [facility] Last Admin: 12/15/17 15:52 Dose: 1,000 intlu Dextrose (Dextrose 50% Inj) 50 ml IVP PRN PRN PRN Reason: Low blood sugar Last Admin: 12/11/17 17:12 Dose: 50 ml Heparin Sodium (Porcine) (Heparin) 2,400 units ICV ONCE [facility] Last Admin: 12/15/17 17:07 Dose: Not Given Heparin Sodium (Porcine) (Heparin) 2,200 units ICA ONCE [facility] Last Admin: 12/15/17 17:07 Dose: Not Given Heparin Sodium (Porcine) (Heparin) 2,100 units ICA ONCE [facility] Last Admin: 12/15/17 17:08 Dose: Not Given Heparin Sodium (Porcine) (Heparin) 1,700 units ICV TUTHSA [facility] Last Admin: 12/15/17 17:08 Dose: Not Given Meropenem 500 mg/ Sodium (Chloride) 50 mls @ 100 mls/hr IVPB 1400 [facility] PRN Reason: Protocol Stop: 12/18/17 17:13 Last Admin: 12/15/17 15:47 Dose: 100 mls/hr Dextrose/Sodium Chloride (Dextrose 5%/0.9% Ns 1000 Ml) 1,000 mls @ 30 mls/hr IV .Q24H [facility] Last Admin: 12/15/17 17:07 Dose: Not Given Insulin Human Regular (Humulin R Med) 0 units SC ACHS [facility] PRN Reason: Protocol Last Admin: 12/15/17 17:08 Dose: Not Given Metoprolol Succinate (Toprol Xl) 25 mg PO DAILY [facility] Last Admin: 12/15/17 15:45 Dose: 25 mg Mupirocin (Bactroban Ointment) 0 gm TOP BID [facility] Last Admin: 12/15/17 19:02 Dose: Not Given Nifedipine (Procardia Xl) 60 mg PO DAILY [facility] Last Admin: 12/15/17 15:48 Dose: 60 mg Dolutegravir Sodium [Tivicay] 50 Mg ( Home Med) 50 mg PO DAILY [facility] Lamivudine [Epivir Hbv] 100 Mg ( Home Med) 100 mg PO DAILY [facility] Petrolatum (Desitin Maximum Strength Topical 40% Oint) 0 gm TOP Q4H PRN PRN Reason: Rash Last Admin: 12/14/17 12:24 Dose: 2 applic Polyethylene Glycol (Miralax) 17 gm PO DAILY [facility] Last Admin: 12/15/17 17:12 Dose: Not Given Tamsulosin HCl (Flomax) 0.4 mg PO DAILY [facility] Last Admin: 12/15/17 15:51 Dose: 0.4 mg Vitamin B Complex/Vit C/Folic Acid (Nephro-Christel) 1 tab PO 0800 [facility] Last Admin: 12/15/17 15:51 Dose: 1 tab - Labs Labs: 12/15/17 06:40 12/15/17 06:40 PT 17.7 SECONDS (9.4-12.5) H 12/08/17 17:00 INR 1.54 (0.93-1.08) H 12/08/17 17:00 APTT 41.8 Seconds (25.1-36.5) H 12/08/17 17:00
[2017-12-16 07:45] LABS: HEMOGLOBIN 7.5 g/dL (14.0-18.0); MEAN CELL VOLUME 89.6 fl (80.0-105.0); MEAN CORPUSCULAR HEMOGLOBIN 27.8 pg (25.0-35.0); MEAN PLATELET VOLUME 9.6 fl (7.0-11.0); RBC 2.7 10^6/uL (3.5-6.1); RED CELL DISTRIBUTION WIDTH 18.8 % (11.5-14.5); WHITE BLOOD COUNT 11.3 10^3/ul (4.5-11.0)
[2017-12-16 08:00] LABS: ALB/GLOB RATIO 0.6 (1.1-1.8); ALBUMIN 2.3 g/dL (3.0-4.8); CALCIUM 7.7 mg/dL (8.4-10.5)
[2017-12-16] MEDS: POLYETHYLENE GLYCOL 3350 17 GM/Dose PACKET PO SCH (10:23)
[2017-12-16] MEDS: Calcium-Vit D 250 mg-125 Units Tab UD PO SCH (10:24)
[2017-12-16] MEDS: NIFEdipine 60 mg ER Tab PO SCH (10:24)
[2017-12-16] MEDS: Multivitamin Vitamin B Complex (Nephro-Vite) Tab PO SCH (10:24)
[2017-12-16] MEDS: Metoprolol Succinate 25 mg XL Tab PO SCH (10:24)
[2017-12-16] MEDS: Dolutegravir Sodium [Tivicay] 50 mg (HOME MED) PO SCH (10:25)
[2017-12-16] MEDS: LAMIVUDINE 100 MG PO SCH (10:25)
[2017-12-16] MEDS: Cholecalciferol 1,000 INTLU TAB PO SCH (10:25)
[2017-12-16] MEDS: Insulin Reg-MEDIUM-Coverage SC SCH ×4 (10:26→22:00)
--- NOTE | 2017-12-16 11:44 | CP.PCM.PN ---
<Michelle Levi - Last Filed: 12/16/17 11:42> Subjective - Date & Time of Evaluation Date of Evaluation: 12/16/17 Time of Evaluation: 11:42 - Subjective Subjective: Podiatry Progress note: Dr. Caldwell/Dr. Dunn 72 year old male patient seen and evaluated at bedside for left heel deep tissue injury. Patient is AAOx3 and is in NAD. Complains of pain to the left heel today. Reports that he has been wearing the boot as advised. Denies of any other pedal complains today. Denies F/N/V/C/SOB/CP/headache. Objective - Vital Signs/Intake and Output Vital Signs (last 24 hours): Temp Pulse Resp BP Pulse Ox 98.5 F 91 H 18 133/66 96 12/16/17 06:00 12/16/17 10:24 12/16/17 06:00 12/16/17 10:24 12/16/17 06:00 Intake and Output: 12/16/17 12/16/17 06:59 18:59 Intake Total 150 240 Balance 150 240 - Medications Medications: Current Medications Abacavir Sulfate (Ziagen) 300 mg PO DAILY [facility] PRN Reason: Protocol Last Admin: 12/16/17 10:24 Dose: 300 mg Acetaminophen (Tylenol 325mg Tab) 650 mg PO Q4H PRN PRN Reason: Fever >100.4 F Last Admin: 12/14/17 12:08 Dose: 650 mg Allopurinol (Zyloprim) 100 mg PO DAILY [facility] Last Admin: 12/16/17 10:24 Dose: 100 mg Bismuth Subsalicylate (Pepto-Bismol) 262 mg PO Q6H PRN PRN Reason: Diarrhea Last Admin: 12/15/17 18:31 Dose: 262 mg Calcium/Vitamin D (Oscal-D 250 Mg-125 Units Tab) 1 tab PO DAILY [facility] Last Admin: 12/16/17 10:24 Dose: 1 tab Cholecalciferol (Vitamin D) 1,000 intlu PO DAILY [facility] Last Admin: 12/16/17 10:25 Dose: 1,000 intlu Dextrose (Dextrose 50% Inj) 50 ml IVP PRN PRN PRN Reason: Low blood sugar Last Admin: 12/11/17 17:12 Dose: 50 ml Heparin Sodium (Porcine) (Heparin) 2,400 units ICV ONCE [facility] Last Admin: 12/15/17 17:07 Dose: Not Given Heparin Sodium (Porcine) (Heparin) 2,200 units ICA ONCE [facility] Last Admin: 12/15/17 17:07 Dose: Not Given Heparin Sodium (Porcine) (Heparin) 2,100 units ICA ONCE [facility] Last Admin: 12/15/17 17:08 Dose: Not Given Heparin Sodium (Porcine) (Heparin) 1,700 units ICV TUTHSA [facility] Last Admin: 12/15/17 17:08 Dose: Not Given Meropenem 500 mg/ Sodium (Chloride) 50 mls @ 100 mls/hr IVPB 1400 [facility] PRN Reason: Protocol Stop: 12/18/17 17:13 Last Admin: 12/15/17 15:47 Dose: 100 mls/hr Dextrose/Sodium Chloride (Dextrose 5%/0.9% Ns 1000 Ml) 1,000 mls @ 30 mls/hr IV .Q24H [facility] Last Admin: 12/15/17 17:07 Dose: Not Given Potassium Chloride (Potassium Chloride 10 Meq/100 Ml) 10 meq in 100 mls @ 50 mls/hr IVPB Q2H [facility] Stop: 12/16/17 15:44 Insulin Human Regular (Humulin R Med) 0 units SC ACHS [facility] PRN Reason: Protocol Last Admin: 12/16/17 10:26 Dose: Not Given Metoprolol Succinate (Toprol Xl) 25 mg PO DAILY [facility] Last Admin: 12/16/17 10:24 Dose: 25 mg Mupirocin (Bactroban Ointment) 0 gm TOP BID [facility] Last Admin: 12/16/17 10:42 Dose: 1 applic Nifedipine (Procardia Xl) 60 mg PO DAILY [facility] Last Admin: 12/16/17 10:24 Dose: 60 mg Dolutegravir Sodium [Tivicay] 50 Mg ( Home Med) 50 mg PO DAILY [facility] Last Admin: 12/16/17 10:25 Dose: 50 mg Lamivudine [Epivir Hbv] 100 Mg ( Home Med) 100 mg PO DAILY [facility] Last Admin: 12/16/17 10:25 Dose: 100 mg Petrolatum (Desitin Maximum Strength Topical 40% Oint) 0 gm TOP Q4H PRN PRN Reason: Rash Last Admin: 12/14/17 12:24 Dose: 2 applic Polyethylene Glycol (Miralax) 17 gm PO DAILY [facility] Last Admin: 12/16/17 10:23 Dose: 17 gm Tamsulosin HCl (Flomax) 0.4 mg PO DAILY [facility] Last Admin: 12/16/17 10:24 Dose: 0.4 mg Vitamin B Complex/Vit C/Folic Acid (Nephro-Christel) 1 tab PO 0800 [facility] Last Admin: 12/16/17 10:24 Dose: 1 tab - Labs Labs: 12/16/17 07:00 12/16/17 07:00 PT 17.7 SECONDS (9.4-12.5) H 12/08/17 17:00 INR 1.54 (0.93-1.08) H 12/08/17 17:00 APTT 41.8 Seconds (25.1-36.5) H 12/08/17 17:00 - Constitutional Appears: Well, Non-toxic, No Acute Distress - Extremities Exam Additional comments: R AKA LLE focused exam: VASC: DP/PT pulses palpable 1/4. Temperature gradient warm to cool. CFT < 3 sec to all digits. No pedal edema noted DERM: Stage 1 non-blanchable erythematous pressure ulceration noted to heel. No open lesions, no ecchymosis, skin and soft tissue intact, no clinical suspicion of active infection NEURO: Protective sensation grossly diminished ORTHO: mild tenderness to palpation of L plantar heel. 1st-3rd digit amputations noted to L foot. Charcot midfoot changes - Neurological Exam Neurological Exam: Alert, Awake - Psychiatric Exam Psychiatric exam: Normal Affect Assessment and Plan - Assessment and Plan (Free Text) Assessment: 72 year old male patient with left heel stage 1 pressure ulceration secondary to bed bound status Plan: Patient seen and evaluated discussed in detail with attending Dr. Dunn Labs and vitals reviewed; WBC 11.3 bactroban, Optifoam applied to bilateral heels Multipodus boot to be worn at all times in bed Will follow patient while in-house <Jerrod Dunn - Last Filed: 12/18/17 11:11> Objective - Vital Signs/Intake and Output Vital Signs (last 24 hours): Temp Pulse Resp BP Pulse Ox 99 F 101 H 18 142/76 96 12/18/17 08:25 12/18/17 08:25 12/18/17 08:25 12/18/17 08:25 12/18/17 08:25 Intake and Output: 12/18/17 12/18/17 06:59 18:59 Intake Total 560 Balance 560 - Medications Medications: Current Medications Abacavir Sulfate (Ziagen) 300 mg PO DAILY [facility] PRN Reason: Protocol Last Admin: 12/17/17 10:20 Dose: 300 mg Acetaminophen (Tylenol 325mg Tab) 650 mg PO Q4H PRN PRN Reason: Fever >100.4 F Last Admin: 12/14/17 12:08 Dose: 650 mg Allopurinol (Zyloprim) 100 mg PO DAILY [facility] Last Admin: 12/17/17 10:16 Dose: 100 mg Bismuth Subsalicylate (Pepto-Bismol) 262 mg PO Q6H PRN PRN Reason: Diarrhea Last Admin: 12/17/17 13:15 Dose: 262 mg Calcium/Vitamin D (Oscal-D 250 Mg-125 Units Tab) 1 tab PO DAILY [facility] Last Admin: 12/17/17 10:15 Dose: 1 tab Cholecalciferol (Vitamin D) 1,000 intlu PO DAILY [facility] Last Admin: 12/17/17 10:21 Dose: 1,000 intlu Darbepoetin Mario (Aranesp) 100 mcg IVP ONCE [facility] Stop: 12/18/17 11:24 Dextrose (Dextrose 50% Inj) 50 ml IVP PRN PRN PRN Reason: Low blood sugar Last Admin: 12/11/17 17:12 Dose: 50 ml Heparin Sodium (Porcine) (Heparin) 1,700 units ICV TUTHSA [facility] Last Admin: 12/15/17 17:08 Dose: Not Given Meropenem 500 mg/ Sodium (Chloride) 50 mls @ 100 mls/hr IVPB 1400 [facility] PRN Reason: Protocol Stop: 12/18/17 17:13 Last Admin: 12/17/17 13:30 Dose: 100 mls/hr Dextrose/Sodium Chloride (Dextrose 5%/0.9% Ns 1000 Ml) 1,000 mls @ 30 mls/hr IV .Q24H [facility] Last Admin: 12/18/17 06:01 Dose: 30 mls/hr Insulin Human Regular (Humulin R Med) 0 units SC ACHS [facility] PRN Reason: Protocol Last Admin: 12/18/17 07:49 Dose: Not Given Metoprolol Succinate (Toprol Xl) 25 mg PO DAILY [facility] Last Admin: 12/17/17 10:14 Dose: 25 mg Mupirocin (Bactroban Ointment) 0 gm TOP BID [facility] Last Admin: 12/17/17 17:29 Dose: 1 applic Nifedipine (Procardia Xl) 60 mg PO DAILY [facility] Last Admin: 12/17/17 10:15 Dose: 60 mg Dolutegravir Sodium [Tivicay] 50 Mg ( Home Med) 50 mg PO DAILY [facility] Last Admin: 12/17/17 10:18 Dose: 50 mg Lamivudine [Epivir Hbv] 100 Mg ( Home Med) 100 mg PO DAILY [facility] Last Admin: 12/17/17 10:18 Dose: 100 mg Pantoprazole Sodium (Protonix Ec Tab) 40 mg PO ACB [facility] Last Admin: 12/18/17 08:24 Dose: 40 mg Petrolatum (Desitin Maximum Strength Topical 40% Oint) 0 gm TOP Q4H PRN PRN Reason: Rash Last Admin: 12/14/17 12:24 Dose: 2 applic Tamsulosin HCl (Flomax) 0.4 mg PO DAILY [facility] Last Admin: 12/17/17 10:14 Dose: 0.4 mg Vitamin B Complex/Vit C/Folic Acid (Nephro-Christel) 1 tab PO 0800 [facility] Last Admin: 12/18/17 08:23 Dose: 1 tab - Labs Labs: 12/17/17 07:30 12/17/17 07:30 PT 17.7 SECONDS (9.4-12.5) H 12/08/17 17:00 INR 1.54 (0.93-1.08) H 12/08/17 17:00 APTT 41.8 Seconds (25.1-36.5) H 12/08/17 17:00 Attending/Attestation - Attestation I have personally seen and examined this patient.: Yes I have fully participated in the care of the patient.: Yes I have reviewed all pertinent clinical information, including history, physical exam and plan: Yes
[2017-12-16] MEDS: Meropenem 500 MG in Sodium Chloride 0.9% 50 ML IVPB SCH (13:56)
[2017-12-16] MEDS: Bismuth Subsalicylate 262 mg/15 ml Sus (240 ml) PO PRN (15:01)
--- NOTE | 2017-12-16 15:04 | CP.PCM.PN ---
Subjective - Date & Time of Evaluation Date of Evaluation: 12/16/17 Time of Evaluation: 14:10 - Subjective Subjective: No fevers, not in distress. Objective - Vital Signs/Intake and Output Vital Signs (last 24 hours): Temp Pulse Resp BP Pulse Ox 98.7 F 105 H 18 124/69 97 12/15/17 22:00 12/15/17 22:00 12/15/17 22:00 12/15/17 22:00 12/15/17 22:00 Intake and Output: 12/16/17 12/16/17 06:59 18:59 Intake Total 150 240 Balance 150 240 - Medications Medications: Current Medications Abacavir Sulfate (Ziagen) 300 mg PO DAILY [facility] PRN Reason: Protocol Last Admin: 12/15/17 15:51 Dose: 300 mg Acetaminophen (Tylenol 325mg Tab) 650 mg PO Q4H PRN PRN Reason: Fever >100.4 F Last Admin: 12/14/17 12:08 Dose: 650 mg Allopurinol (Zyloprim) 100 mg PO DAILY [facility] Last Admin: 12/15/17 15:52 Dose: 100 mg Bismuth Subsalicylate (Pepto-Bismol) 262 mg PO Q6H PRN PRN Reason: Diarrhea Last Admin: 12/15/17 18:31 Dose: 262 mg Calcium/Vitamin D (Oscal-D 250 Mg-125 Units Tab) 1 tab PO DAILY [facility] Last Admin: 12/15/17 15:51 Dose: 1 tab Cholecalciferol (Vitamin D) 1,000 intlu PO DAILY [facility] Last Admin: 12/15/17 15:52 Dose: 1,000 intlu Dextrose (Dextrose 50% Inj) 50 ml IVP PRN PRN PRN Reason: Low blood sugar Last Admin: 12/11/17 17:12 Dose: 50 ml Heparin Sodium (Porcine) (Heparin) 2,400 units ICV ONCE [facility] Last Admin: 12/15/17 17:07 Dose: Not Given Heparin Sodium (Porcine) (Heparin) 2,200 units ICA ONCE [facility] Last Admin: 12/15/17 17:07 Dose: Not Given Heparin Sodium (Porcine) (Heparin) 2,100 units ICA ONCE [facility] Last Admin: 12/15/17 17:08 Dose: Not Given Heparin Sodium (Porcine) (Heparin) 1,700 units ICV TUTHSA [facility] Last Admin: 12/15/17 17:08 Dose: Not Given Meropenem 500 mg/ Sodium (Chloride) 50 mls @ 100 mls/hr IVPB 1400 [facility] PRN Reason: Protocol Stop: 12/18/17 17:13 Last Admin: 12/15/17 15:47 Dose: 100 mls/hr Dextrose/Sodium Chloride (Dextrose 5%/0.9% Ns 1000 Ml) 1,000 mls @ 30 mls/hr IV .Q24H [facility] Last Admin: 12/15/17 17:07 Dose: Not Given Insulin Human Regular (Humulin R Med) 0 units SC ACHS [facility] PRN Reason: Protocol Last Admin: 12/15/17 23:00 Dose: Not Given Metoprolol Succinate (Toprol Xl) 25 mg PO DAILY [facility] Last Admin: 12/15/17 15:45 Dose: 25 mg Mupirocin (Bactroban Ointment) 0 gm TOP BID [facility] Last Admin: 12/15/17 19:02 Dose: Not Given Nifedipine (Procardia Xl) 60 mg PO DAILY [facility] Last Admin: 12/15/17 15:48 Dose: 60 mg Dolutegravir Sodium [Tivicay] 50 Mg ( Home Med) 50 mg PO DAILY [facility] Lamivudine [Epivir Hbv] 100 Mg ( Home Med) 100 mg PO DAILY [facility] Petrolatum (Desitin Maximum Strength Topical 40% Oint) 0 gm TOP Q4H PRN PRN Reason: Rash Last Admin: 12/14/17 12:24 Dose: 2 applic Polyethylene Glycol (Miralax) 17 gm PO DAILY [facility] Last Admin: 12/15/17 17:12 Dose: Not Given Tamsulosin HCl (Flomax) 0.4 mg PO DAILY [facility] Last Admin: 12/15/17 15:51 Dose: 0.4 mg Vitamin B Complex/Vit C/Folic Acid (Nephro-Christel) 1 tab PO 0800 [facility] Last Admin: 12/15/17 15:51 Dose: 1 tab - Labs Labs: 12/16/17 07:00 12/16/17 07:00 PT 17.7 SECONDS (9.4-12.5) H 12/08/17 17:00 INR 1.54 (0.93-1.08) H 12/08/17 17:00 APTT 41.8 Seconds (25.1-36.5) H 12/08/17 17:00 - Constitutional Appears: Chronically Ill - Head Exam Head Exam: NORMAL INSPECTION - Neck Exam Neck Exam: absent: Meningismus - Respiratory Exam Respiratory Exam: Decreased Breath Sounds - Cardiovascular Exam Cardiovascular Exam: +S1, +S2 - GI/Abdominal Exam GI & Abdominal Exam: Soft. absent: Tenderness Assessment and Plan - Assessment and Plan (Free Text) Plan: Assessment sepsis due to ESBL E. coli bacteremia, consider HD catheter associated bacteremia s/P removal of right sided catheter and placement of new left anterior chest wall catheter history of small bowel obstruction S/P ex-lap, adhesiolysis, repair of umbilical hernia and appendectomy S/P UTI severe PAD S/P angioplasty of the left tibial artery S/P right AKA UTI with MRSA and Strep viridans systemic viral illness with Influenza history of left foot 3rd digit chronic osteomyelitis S/P amputation and debridement right sided nephrolithiasis history of severe sepsis with acute on chronic renal failure probably due to pyelonephritis with E. coli bacteremia history of C. diff. associated diarrhea Charcot foot, left history of left 2nd toe dry gangrene Chronic renal failure on hemodialysis HTN prostate CA HIV [place] [place] [facility] [place] and virus load < 1.3 log) history of osteomyelitis of left first toe S/P amputation (2015) gout history of left foot ulcers Plan continue Merrem to complete at least 10-14 days of therapy (day 3 from change of catheter) continue antiretroviral therapy (lamivudine, abacavir on formulary but dolutegravir should be taken by patient from his home supply) overall prognosis is poor
[2017-12-16] MEDS: Dextrose 5%/0.9% NS 1,000 ML IV SCH (15:54)
--- NOTE | 2017-12-16 23:25 | CP.PCM.PN ---
Subjective - Date & Time of Evaluation Date of Evaluation: 12/16/17 Time of Evaluation: 23:24 - Subjective Subjective: pt needs angiocath insertion. Objective - Vital Signs/Intake and Output Vital Signs (last 24 hours): Temp Pulse Resp BP Pulse Ox 98.0 F 98 H 18 141/83 97 12/16/17 14:00 12/16/17 14:00 12/16/17 14:00 12/16/17 14:00 12/16/17 14:00 Intake and Output: 12/16/17 12/17/17 18:59 06:59 Intake Total 840 180 Balance 840 180 - Medications Medications: Current Medications Abacavir Sulfate (Ziagen) 300 mg PO DAILY [facility] PRN Reason: Protocol Last Admin: 12/16/17 10:24 Dose: 300 mg Acetaminophen (Tylenol 325mg Tab) 650 mg PO Q4H PRN PRN Reason: Fever >100.4 F Last Admin: 12/14/17 12:08 Dose: 650 mg Allopurinol (Zyloprim) 100 mg PO DAILY [facility] Last Admin: 12/16/17 10:24 Dose: 100 mg Bismuth Subsalicylate (Pepto-Bismol) 262 mg PO Q6H PRN PRN Reason: Diarrhea Last Admin: 12/16/17 15:01 Dose: 262 mg Calcium/Vitamin D (Oscal-D 250 Mg-125 Units Tab) 1 tab PO DAILY [facility] Last Admin: 12/16/17 10:24 Dose: 1 tab Cholecalciferol (Vitamin D) 1,000 intlu PO DAILY [facility] Last Admin: 12/16/17 10:25 Dose: 1,000 intlu Dextrose (Dextrose 50% Inj) 50 ml IVP PRN PRN PRN Reason: Low blood sugar Last Admin: 12/11/17 17:12 Dose: 50 ml Heparin Sodium (Porcine) (Heparin) 2,400 units ICV ONCE [facility] Last Admin: 12/16/17 17:16 Dose: Not Given Heparin Sodium (Porcine) (Heparin) 2,200 units ICA ONCE [facility] Last Admin: 12/16/17 17:16 Dose: Not Given Heparin Sodium (Porcine) (Heparin) 2,100 units ICA ONCE [facility] Last Admin: 12/16/17 17:16 Dose: Not Given Heparin Sodium (Porcine) (Heparin) 1,700 units ICV [facility]SA [facility] Last Admin: 12/15/17 17:08 Dose: Not Given Meropenem 500 mg/ Sodium (Chloride) 50 mls @ 100 mls/hr IVPB 1400 [facility] PRN Reason: Protocol Stop: 12/18/17 17:13 Last Admin: 12/16/17 13:56 Dose: 100 mls/hr Dextrose/Sodium Chloride (Dextrose 5%/0.9% Ns 1000 Ml) 1,000 mls @ 30 mls/hr IV .Q24H [facility] Last Admin: 12/16/17 15:54 Dose: 30 mls/hr Insulin Human Regular (Humulin R Med) 0 units SC ACHS [facility] PRN Reason: Protocol Last Admin: 12/16/17 17:16 Dose: Not Given Metoprolol Succinate (Toprol Xl) 25 mg PO DAILY [facility] Last Admin: 12/16/17 10:24 Dose: 25 mg Mupirocin (Bactroban Ointment) 0 gm TOP BID [facility] Last Admin: 12/16/17 17:27 Dose: 1 applic Nifedipine (Procardia Xl) 60 mg PO DAILY [facility] Last Admin: 12/16/17 10:24 Dose: 60 mg Dolutegravir Sodium [Tivicay] 50 Mg ( Home Med) 50 mg PO DAILY [facility] Last Admin: 12/16/17 10:25 Dose: 50 mg Lamivudine [Epivir Hbv] 100 Mg ( Home Med) 100 mg PO DAILY [facility] Last Admin: 12/16/17 10:25 Dose: 100 mg Petrolatum (Desitin Maximum Strength Topical 40% Oint) 0 gm TOP Q4H PRN PRN Reason: Rash Last Admin: 12/14/17 12:24 Dose: 2 applic Polyethylene Glycol (Miralax) 17 gm PO DAILY [facility] Last Admin: 12/16/17 10:23 Dose: 17 gm Tamsulosin HCl (Flomax) 0.4 mg PO DAILY [facility] Last Admin: 12/16/17 10:24 Dose: 0.4 mg Vitamin B Complex/Vit C/Folic Acid (Nephro-Christel) 1 tab PO 0800 [facility] Last Admin: 12/16/17 10:24 Dose: 1 tab - Labs Labs: 12/16/17 07:00 12/16/17 07:00 PT 17.7 SECONDS (9.4-12.5) H 12/08/17 17:00 INR 1.54 (0.93-1.08) H 12/08/17 17:00 APTT 41.8 Seconds (25.1-36.5) H 12/08/17 17:00 Assessment and Plan - Assessment and Plan (Free Text) Assessment: 22 guage angiocath inserted in left forearm.
[2017-12-17 08:06] LABS: HEMOGLOBIN 7.3 g/dL (14.0-18.0); MEAN CELL VOLUME 90.7 fl (80.0-105.0); MEAN CORPUSCULAR HEMOGLOBIN 28.2 pg (25.0-35.0); MEAN CORPUSCULAR HGB CONC 31.1 g/dl (31.0-37.0); MEAN PLATELET VOLUME 9.3 fl (7.0-11.0); RBC 2.59 10^6/uL (3.5-6.1); RED CELL DISTRIBUTION WIDTH 18.8 % (11.5-14.5); WHITE BLOOD COUNT 12.3 10^3/ul (4.5-11.0)
[2017-12-17] MEDS: Insulin Reg-MEDIUM-Coverage SC SCH ×4 (08:19→22:00)
[2017-12-17 08:26] LABS: ALB/GLOB RATIO 0.7 (1.1-1.8); ALBUMIN 2.4 g/dL (3.0-4.8); CALCIUM 7.8 mg/dL (8.4-10.5)
[2017-12-17] MEDS ORDERED: Potassium Chloride 20 mEq ER Tab PO ONE (08:31)
--- NOTE | 2017-12-17 08:51 | PN ---
DATE: 12/16/2017 SUBJECTIVE: I saw him in his room. He is on isolation. He is on IV antibiotics. He is pleasant. He is talking, a little bit confused about why he is here. He is frustrated being in the hospital and being in this institution. He is here with sepsis. He is on Bactroban cream, Desitin, dextrose, Flomax, heparin, insulin coverage, Epivir, MiraLAX, Nephro-Christel, Os-Terrell, Pepto-Bismol, Procardia, Toprol, Tylenol, vitamin D, Ziagen and Zyloprim. PHYSICAL EXAMINATION VITAL SIGNS: He has a 98.5 temperature, 91 pulse, 133/66 blood pressure, 18 respiratory rate, 96% O2 sat on room air. HEENT: Head is atraumatic, normocephalic. GENERAL: He is alert and talking. He is eating. HEART: Regular rate. LUNGS: Decreased breath sounds, but clear. ABDOMEN: Soft. EXTREMITIES: He has right AKA. The left foot is alright. LABORATORY DATA: He has a 11.3 white count, 7.5 hemoglobin, 24.2 hematocrit with a 440 platelets. If hemoglobin drops into the 6s, I will transfuse him. He is on dialysis. He has a sodium 137, potassium 3.1, I will replace his potassium. He has a 17 BUN, creatinine is 3, GFR is 21, sugar is 91, calcium is 7.7, total bilirubin is 0.3, AST is 41, ALT is 21, alkaline phosphatase 108. He is being seen by Renal, Cardiology, Infectious Disease. We will continue aggressive treatment and care, IV antibiotics and we will replace potassium today. We will continue with IV antibiotics as per Infectious Disease. Parag Brownlee DO
[2017-12-17] MEDS: Multivitamin Vitamin B Complex (Nephro-Vite) Tab PO SCH (10:13)
[2017-12-17] MEDS: Metoprolol Succinate 25 mg XL Tab PO SCH (10:14)
[2017-12-17] MEDS: NIFEdipine 60 mg ER Tab PO SCH (10:15)
[2017-12-17] MEDS: Calcium-Vit D 250 mg-125 Units Tab UD PO SCH (10:15)
[2017-12-17] MEDS: POLYETHYLENE GLYCOL 3350 17 GM/Dose PACKET PO SCH ×2 (10:16→10:19)
[2017-12-17] MEDS: LAMIVUDINE 100 MG PO SCH (10:18)
[2017-12-17] MEDS: Dolutegravir Sodium [Tivicay] 50 mg (HOME MED) PO SCH (10:18)
[2017-12-17] MEDS: Cholecalciferol 1,000 INTLU TAB PO SCH (10:21)
--- NOTE | 2017-12-17 12:52 | CP.PCM.PN ---
Subjective - Date & Time of Evaluation Date of Evaluation: 12/17/17 Time of Evaluation: 12:49 - Subjective Subjective: Podiatry Progress note: Dr. Caldwell/Dr. Dunn 72 year old male patient seen and evaluated at bedside for left heel deep tissue injury. Patient is AAOx3 and is in NAD. Reports that he has pain in his stomach. Denies of any pain to the heel today. Reports that he has been wearing the boot as advised. Denies F/N/V/C/SOB/CP/headache. Denies of any other pedal complains today. Objective - Vital Signs/Intake and Output Vital Signs (last 24 hours): Temp Pulse Resp BP Pulse Ox 98.5 F 100 H 20 130/70 98 12/17/17 08:25 12/17/17 10:15 12/17/17 08:25 12/17/17 10:15 12/17/17 08:25 Intake and Output: 12/17/17 12/17/17 06:59 18:59 Intake Total 410 Balance 410 - Medications Medications: Current Medications Abacavir Sulfate (Ziagen) 300 mg PO DAILY DWAIN PRN Reason: Protocol Last Admin: 12/17/17 10:20 Dose: 300 mg Acetaminophen (Tylenol 325mg Tab) 650 mg PO Q4H PRN PRN Reason: Fever >100.4 F Last Admin: 12/14/17 12:08 Dose: 650 mg Allopurinol (Zyloprim) 100 mg PO DAILY DWAIN Last Admin: 12/17/17 10:16 Dose: 100 mg Bismuth Subsalicylate (Pepto-Bismol) 262 mg PO Q6H PRN PRN Reason: Diarrhea Last Admin: 12/16/17 15:01 Dose: 262 mg Calcium/Vitamin D (Oscal-D 250 Mg-125 Units Tab) 1 tab PO DAILY DWAIN Last Admin: 12/17/17 10:15 Dose: 1 tab Cholecalciferol (Vitamin D) 1,000 intlu PO DAILY DWAIN Last Admin: 12/17/17 10:21 Dose: 1,000 intlu Darbepoetin Mario (Aranesp) 100 mcg IVP ONCE ONE Stop: 12/18/17 11:24 Dextrose (Dextrose 50% Inj) 50 ml IVP PRN PRN PRN Reason: Low blood sugar Last Admin: 12/11/17 17:12 Dose: 50 ml Heparin Sodium (Porcine) (Heparin) 2,400 units ICV ONCE [facility] Last Admin: 12/16/17 17:16 Dose: Not Given Heparin Sodium (Porcine) (Heparin) 2,200 units ICA ONCE [facility] Last Admin: 12/16/17 17:16 Dose: Not Given Heparin Sodium (Porcine) (Heparin) 2,100 units ICA ONCE [facility] Last Admin: 12/16/17 17:16 Dose: Not Given Heparin Sodium (Porcine) (Heparin) 1,700 units ICV TUTHSA [facility] Last Admin: 12/15/17 17:08 Dose: Not Given Meropenem 500 mg/ Sodium (Chloride) 50 mls @ 100 mls/hr IVPB 1400 DWAIN PRN Reason: Protocol Stop: 12/18/17 17:13 Last Admin: 12/16/17 13:56 Dose: 100 mls/hr Dextrose/Sodium Chloride (Dextrose 5%/0.9% Ns 1000 Ml) 1,000 mls @ 30 mls/hr IV .Q24H [facility] Last Admin: 12/16/17 15:54 Dose: 30 mls/hr Insulin Human Regular (Humulin R Med) 0 units SC ACHS [facility] PRN Reason: Protocol Last Admin: 12/17/17 08:19 Dose: Not Given Metoprolol Succinate (Toprol Xl) 25 mg PO DAILY [facility] Last Admin: 12/17/17 10:14 Dose: 25 mg Mupirocin (Bactroban Ointment) 0 gm TOP BID [facility] Last Admin: 12/16/17 17:27 Dose: 1 applic Nifedipine (Procardia Xl) 60 mg PO DAILY [facility] Last Admin: 12/17/17 10:15 Dose: 60 mg Dolutegravir Sodium [Tivicay] 50 Mg ( Home Med) 50 mg PO DAILY [facility] Last Admin: 12/17/17 10:18 Dose: 50 mg Lamivudine [Epivir Hbv] 100 Mg ( Home Med) 100 mg PO DAILY [facility] Last Admin: 12/17/17 10:18 Dose: 100 mg Pantoprazole Sodium (Protonix Ec Tab) 40 mg PO ACB [facility] Petrolatum (Desitin Maximum Strength Topical 40% Oint) 0 gm TOP Q4H PRN PRN Reason: Rash Last Admin: 12/14/17 12:24 Dose: 2 applic Polyethylene Glycol (Miralax) 17 gm PO DAILY [facility] Last Admin: 12/17/17 10:16 Dose: 17 gm Tamsulosin HCl (Flomax) 0.4 mg PO DAILY [facility] Last Admin: 12/17/17 10:14 Dose: 0.4 mg Vitamin B Complex/Vit C/Folic Acid (Nephro-Christel) 1 tab PO 0800 [facility] Last Admin: 12/17/17 10:13 Dose: 1 tab - Labs Labs: 12/17/17 07:30 12/17/17 07:30 PT 17.7 SECONDS (9.4-12.5) H 12/08/17 17:00 INR 1.54 (0.93-1.08) H 12/08/17 17:00 APTT 41.8 Seconds (25.1-36.5) H 12/08/17 17:00 - Constitutional Appears: Well, Non-toxic, No Acute Distress - Extremities Exam Additional comments: Phong IGNACIO focused exam: VASC: DP/PT pulses palpable 1/4. Temperature gradient warm to cool. CFT < 3 sec to all digits. No pedal edema noted DERM: Stage 1 non-blanchable erythematous pressure ulceration noted to heel. No open lesions, no ecchymosis, skin and soft tissue intact, no clinical suspicion of active infection NEURO: Protective sensation grossly diminished ORTHO: mild tenderness to palpation of L plantar heel. 1st-3rd digit amputations noted to L foot. Charcot midfoot changes - Neurological Exam Neurological Exam: Alert, Awake, Oriented x3 - Psychiatric Exam Psychiatric exam: Normal Affect, Normal Mood Assessment and Plan - Assessment and Plan (Free Text) Assessment: 72 year old male patient with left heel stage 1 pressure ulceration secondary to bed bound status Plan: Patient seen and evaluated discussed in detail with attending Dr. Caldwell Labs and vitals reviewed; WBC 12.3 bactroban, Optifoam applied to bilateral heels No signs of active infection from the left foot Multipodus boot to be worn at all times in bed Will follow patient while in-house
[2017-12-17] MEDS: Bismuth Subsalicylate 262 mg/15 ml Sus (240 ml) PO PRN (13:15)
[2017-12-17] MEDS: Meropenem 500 MG in Sodium Chloride 0.9% 50 ML IVPB SCH (13:30)
--- NOTE | 2017-12-17 14:40 | CP.PCM.PN ---
Subjective - Date & Time of Evaluation Date of Evaluation: 12/17/17 Time of Evaluation: 14:39 - Subjective Subjective: Nephrology Consultation Note: Assessment: Stable ESBL E.Coli SEPSIS (suspect permacath per ID) Enteritis and Colitis Hypokalemia, hypoglycemia recent High grade SBO s/p surgery, appendectomy: imporved hx of prostate CA Hypertensive Chronic Kidney Disease (I12.9) ESRD on HD via permacath (TTS) Anemia (D64.9), HTN (I12.9) HIV on HAART, PVD s/p angioplasty s/p Rt AKA Plan plan for HD tomorrow as per TTS schedule. nephrovite 1 tab/day. aransep 100 mcg weekly for anemia 12/18/17. PRBC as needed . last Hb 7.3 hold phos binders as pt with limited oral intake and low serum Phos Hypertension control with meds as ordered. resume nifedipine supplement K started D5NS as pt with limited oral intake and hypoglycemia. can d.c IVF once oral intake better. Liberalize diet, d/w RN to change to regular diet Dose meds/antibiotics for ESRD status. Avoid fleets enema/magnesium based laxatives. Further work up/management as per primary team. Thanks for allowing me to participate in care of your patient. Please call if any Qs. d/w team Dr Yandel Arechiga Office: [phone] HPI: Pt is a 72 y/o M with hx of HIV on HAART, PVD s/p angioplasty, Rt AKA, hypertension (10-15 years), ESRD on HD (via permacath) TTS @ [facility], left foot toe amputations, prostate CA presented with pain abdomen and bacteremia renal consult for ESRD management pt doesn't feel well. says everything is bothering him as lower ext pain, groin pain. says alcala catheter was removed 2 weeks ago ROS: denies CP/SOB. all other neg except as in HPI. c/o abdomen pain. s/p CT guided aspiration 11/19/17 feels same with pain in heels, ankle. underwent CT angiogram abdomen 12/12/17 s/p permacath change 12/14/2017 Physical Examination: General Appearance: in no acute respiratory distress, facial muscles wasted, ill appearing Vitals reviewed and noted as below Head; Atraumatic, normocephalic ENT: no ulcers no thrush. Tongue is midline dry. Oropharynx: no rash or ulcers. EYES: Pupils are equal, round and reactive to light accommodation. Eye muscles and extraocular movement intact. Sclera is anicteric. Neck; supple no lymphadenopathy, no thyromegaly or bruit Lungs: Normal respiratory rate/effort. Breath sounds bilateral clear Heart: Normal rate. s1s2 normal. No rub or gallop. Extremities: no edema. No varicose veins. s/p Rt AKA Neurological: Patient is alert oriented x 3 follow commands,. no focal deficit Skin: Warm and dry. Normal turgor. Palpitation: Normal elasticity for age. Abdomen: Abdomen is soft. distended and much less tender in lower abdomen area without guarding. Psych: limited insight. flat affect MSK: Digits and nails normal, left foot toe amputations in past. Rt AKA. : kidney not palpable. Access: permacath and maturing left AVF Labs/imaging/EKG reviewed. Past medical history, past surgical history, family history, social history, allergy reviewed and noted as below Family hx: sister was on dialysis. Rest non-contributory Objective - Vital Signs/Intake and Output Vital Signs (last 24 hours): Temp Pulse Resp BP Pulse Ox 98.5 F 100 H 20 130/70 98 12/17/17 08:25 12/17/17 10:15 12/17/17 08:25 12/17/17 10:15 12/17/17 08:25 Intake and Output: 12/17/17 12/17/17 06:59 18:59 Intake Total 410 Balance 410 - Medications Medications: Current Medications Abacavir Sulfate (Ziagen) 300 mg PO DAILY DWAIN PRN Reason: Protocol Last Admin: 12/17/17 10:20 Dose: 300 mg Acetaminophen (Tylenol 325mg Tab) 650 mg PO Q4H PRN PRN Reason: Fever >100.4 F Last Admin: 12/14/17 12:08 Dose: 650 mg Allopurinol (Zyloprim) 100 mg PO DAILY DWAIN Last Admin: 12/17/17 10:16 Dose: 100 mg Bismuth Subsalicylate (Pepto-Bismol) 262 mg PO Q6H PRN PRN Reason: Diarrhea Last Admin: 12/17/17 13:15 Dose: 262 mg Calcium/Vitamin D (Oscal-D 250 Mg-125 Units Tab) 1 tab PO DAILY [facility] Last Admin: 12/17/17 10:15 Dose: 1 tab Cholecalciferol (Vitamin D) 1,000 intlu PO DAILY [facility] Last Admin: 12/17/17 10:21 Dose: 1,000 intlu Darbepoetin Mario (Aranesp) 100 mcg IVP ONCE ONE Stop: 12/18/17 11:24 Dextrose (Dextrose 50% Inj) 50 ml IVP PRN PRN PRN Reason: Low blood sugar Last Admin: 12/11/17 17:12 Dose: 50 ml Heparin Sodium (Porcine) (Heparin) 2,400 units ICV ONCE [facility] Last Admin: 12/16/17 17:16 Dose: Not Given Heparin Sodium (Porcine) (Heparin) 2,200 units ICA ONCE [facility] Last Admin: 12/16/17 17:16 Dose: Not Given Heparin Sodium (Porcine) (Heparin) 2,100 units ICA ONCE [facility] Last Admin: 12/16/17 17:16 Dose: Not Given Heparin Sodium (Porcine) (Heparin) 1,700 units ICV TUTHSA [facility] Last Admin: 12/15/17 17:08 Dose: Not Given Meropenem 500 mg/ Sodium (Chloride) 50 mls @ 100 mls/hr IVPB 1400 DWAIN PRN Reason: Protocol Stop: 12/18/17 17:13 Last Admin: 12/17/17 13:30 Dose: 100 mls/hr Dextrose/Sodium Chloride (Dextrose 5%/0.9% Ns 1000 Ml) 1,000 mls @ 30 mls/hr IV .Q24H [facility] Last Admin: 12/16/17 15:54 Dose: 30 mls/hr Insulin Human Regular (Humulin R Med) 0 units SC ACHS [facility] PRN Reason: Protocol Last Admin: 12/17/17 11:18 Dose: Not Given Metoprolol Succinate (Toprol Xl) 25 mg PO DAILY [facility] Last Admin: 12/17/17 10:14 Dose: 25 mg Mupirocin (Bactroban Ointment) 0 gm TOP BID [facility] Last Admin: 12/16/17 17:27 Dose: 1 applic Nifedipine (Procardia Xl) 60 mg PO DAILY [facility] Last Admin: 12/17/17 10:15 Dose: 60 mg Dolutegravir Sodium [Tivicay] 50 Mg ( Home Med) 50 mg PO DAILY [facility] Last Admin: 12/17/17 10:18 Dose: 50 mg Lamivudine [Epivir Hbv] 100 Mg ( Home Med) 100 mg PO DAILY [facility] Last Admin: 12/17/17 10:18 Dose: 100 mg Pantoprazole Sodium (Protonix Ec Tab) 40 mg PO ACB [facility] Petrolatum (Desitin Maximum Strength Topical 40% Oint) 0 gm TOP Q4H PRN PRN Reason: Rash Last Admin: 12/14/17 12:24 Dose: 2 applic Polyethylene Glycol (Miralax) 17 gm PO DAILY [facility] Last Admin: 12/17/17 10:16 Dose: 17 gm Tamsulosin HCl (Flomax) 0.4 mg PO DAILY [facility] Last Admin: 12/17/17 10:14 Dose: 0.4 mg Vitamin B Complex/Vit C/Folic Acid (Nephro-Christel) 1 tab PO 0800 [facility] Last Admin: 12/17/17 10:13 Dose: 1 tab - Labs Labs: 12/17/17 07:30 12/17/17 07:30 PT 17.7 SECONDS (9.4-12.5) H 12/08/17 17:00 INR 1.54 (0.93-1.08) H 12/08/17 17:00 APTT 41.8 Seconds (25.1-36.5) H 12/08/17 17:00
--- NOTE | 2017-12-17 19:23 | CP.PCM.PN ---
Subjective - Date & Time of Evaluation Date of Evaluation: 12/17/17 Time of Evaluation: 12:35 - Subjective Subjective: Comfortable, no fevers. Objective - Vital Signs/Intake and Output Vital Signs (last 24 hours): Temp Pulse Resp BP Pulse Ox 98.5 F 101 H 20 130/70 98 12/17/17 08:25 12/17/17 08:25 12/17/17 08:25 12/17/17 08:25 12/17/17 08:25 Intake and Output: 12/17/17 12/17/17 06:59 18:59 Intake Total 410 Balance 410 - Medications Medications: Current Medications Abacavir Sulfate (Ziagen) 300 mg PO DAILY DWAIN PRN Reason: Protocol Last Admin: 12/16/17 10:24 Dose: 300 mg Acetaminophen (Tylenol 325mg Tab) 650 mg PO Q4H PRN PRN Reason: Fever >100.4 F Last Admin: 12/14/17 12:08 Dose: 650 mg Allopurinol (Zyloprim) 100 mg PO DAILY [facility] Last Admin: 12/16/17 10:24 Dose: 100 mg Bismuth Subsalicylate (Pepto-Bismol) 262 mg PO Q6H PRN PRN Reason: Diarrhea Last Admin: 12/16/17 15:01 Dose: 262 mg Calcium/Vitamin D (Oscal-D 250 Mg-125 Units Tab) 1 tab PO DAILY [facility] Last Admin: 12/16/17 10:24 Dose: 1 tab Cholecalciferol (Vitamin D) 1,000 intlu PO DAILY [facility] Last Admin: 12/16/17 10:25 Dose: 1,000 intlu Dextrose (Dextrose 50% Inj) 50 ml IVP PRN PRN PRN Reason: Low blood sugar Last Admin: 12/11/17 17:12 Dose: 50 ml Heparin Sodium (Porcine) (Heparin) 2,400 units ICV ONCE [facility] Last Admin: 12/16/17 17:16 Dose: Not Given Heparin Sodium (Porcine) (Heparin) 2,200 units ICA ONCE [facility] Last Admin: 12/16/17 17:16 Dose: Not Given Heparin Sodium (Porcine) (Heparin) 2,100 units ICA ONCE [facility] Last Admin: 12/16/17 17:16 Dose: Not Given Heparin Sodium (Porcine) (Heparin) 1,700 units ICV TUTHSA [facility] Last Admin: 12/15/17 17:08 Dose: Not Given Meropenem 500 mg/ Sodium (Chloride) 50 mls @ 100 mls/hr IVPB 1400 DWAIN PRN Reason: Protocol Stop: 12/18/17 17:13 Last Admin: 12/16/17 13:56 Dose: 100 mls/hr Dextrose/Sodium Chloride (Dextrose 5%/0.9% Ns 1000 Ml) 1,000 mls @ 30 mls/hr IV .Q24H [facility] Last Admin: 12/16/17 15:54 Dose: 30 mls/hr Insulin Human Regular (Humulin R Med) 0 units SC ACHS [facility] PRN Reason: Protocol Last Admin: 12/16/17 22:00 Dose: Not Given Metoprolol Succinate (Toprol Xl) 25 mg PO DAILY [facility] Last Admin: 12/16/17 10:24 Dose: 25 mg Mupirocin (Bactroban Ointment) 0 gm TOP BID [facility] Last Admin: 12/16/17 17:27 Dose: 1 applic Nifedipine (Procardia Xl) 60 mg PO DAILY [facility] Last Admin: 12/16/17 10:24 Dose: 60 mg Dolutegravir Sodium [Tivicay] 50 Mg ( Home Med) 50 mg PO DAILY [facility] Last Admin: 12/16/17 10:25 Dose: 50 mg Lamivudine [Epivir Hbv] 100 Mg ( Home Med) 100 mg PO DAILY [facility] Last Admin: 12/16/17 10:25 Dose: 100 mg Pantoprazole Sodium (Protonix Inj) 40 mg IVP DAILY [facility] Petrolatum (Desitin Maximum Strength Topical 40% Oint) 0 gm TOP Q4H PRN PRN Reason: Rash Last Admin: 12/14/17 12:24 Dose: 2 applic Polyethylene Glycol (Miralax) 17 gm PO DAILY [facility] Last Admin: 12/16/17 10:23 Dose: 17 gm Tamsulosin HCl (Flomax) 0.4 mg PO DAILY [facility] Last Admin: 12/16/17 10:24 Dose: 0.4 mg Vitamin B Complex/Vit C/Folic Acid (Nephro-Christel) 1 tab PO 0800 [facility] Last Admin: 12/16/17 10:24 Dose: 1 tab - Labs Labs: 12/17/17 07:30 12/17/17 07:30 PT 17.7 SECONDS (9.4-12.5) H 12/08/17 17:00 INR 1.54 (0.93-1.08) H 12/08/17 17:00 APTT 41.8 Seconds (25.1-36.5) H 12/08/17 17:00 - Constitutional Appears: Cachectic, Chronically Ill - Head Exam Head Exam: NORMAL INSPECTION - Neck Exam Neck Exam: absent: Meningismus - Respiratory Exam Respiratory Exam: Decreased Breath Sounds - Cardiovascular Exam Cardiovascular Exam: +S1, +S2 - GI/Abdominal Exam GI & Abdominal Exam: Soft. absent: Tenderness Assessment and Plan - Assessment and Plan (Free Text) Plan: Assessment sepsis due to ESBL E. coli bacteremia, consider HD catheter associated bacteremia s/P removal of right sided catheter and placement of new left anterior chest wall catheter history of small bowel obstruction S/P ex-lap, adhesiolysis, repair of umbilical hernia and appendectomy S/P UTI severe PAD S/P angioplasty of the left tibial artery S/P right AKA UTI with MRSA and Strep viridans systemic viral illness with Influenza history of left foot 3rd digit chronic osteomyelitis S/P amputation and debridement right sided nephrolithiasis history of severe sepsis with acute on chronic renal failure probably due to pyelonephritis with E. coli bacteremia history of C. diff. associated diarrhea Charcot foot, left history of left 2nd toe dry gangrene Chronic renal failure on hemodialysis HTN prostate CA HIV (patient goes to the [place] with last CD4 count here at [facility] 03/2016 349 and virus load < 1.3 log) history of osteomyelitis of left first toe S/P amputation (2015) gout history of left foot ulcers Plan continue Merrem to complete at least 10-14 days of therapy (day 4 from change of catheter) continue antiretroviral therapy (lamivudine, abacavir on formulary but dolutegravir should be taken by patient from his home supply) overall prognosis is poor
--- NOTE | 2017-12-18 05:36 | PN ---
DATE: 12/17/2017 I saw him resting comfortably in bed. He slept fairly well. He is trying to eat better. He has got some abdominal complaints and stomach complaints. I will discuss this with GI. He is on Bactroban cream, Desitin, dextrose, Tivicay, Flomax, heparin, insulin, Epivir, Merrem IV, MiraLax, Nephro-Christel, Os-Terrell, Pepto-Bismol, Procardia, Toprol, Tylenol, vitamin D, Ziagen and Zyloprim. I will add Protonix for stomach upset from hoping that will help. PHYSICAL EXAMINATION: GENERAL: Presently, he is alert. No acute distress. He is about to have his breakfast. VITAL SIGNS: He has a 98.5 temperature, 101 pulse, 130/70 blood pressure, 20 respiratory rate, oxygen saturation on room air. HEENT: Head is atraumatic, normocephalic. HEART: Regular rate. LUNGS: Decreased breath sounds, but clear. ABDOMEN: Soft, nontender. Positive bowel sounds. He has got a right AKA, left leg is okay. DATA: He has a 12.3 white count, still hovering with a 7.3 hemoglobin, 23.5 hematocrit and 543 platelets. Sodium 136, potassium 3.4, we will give him some potassium today. BUN 21, creatinine 3.9, GFR is 50, sugar is 113, calcium is 7.8, total bili is 0.2, AST is 49, ALT is 20, alkaline phosphatase 104. I am going to get one unit of blood today and give him some potassium. Hopefully, I could the unit of blood during dialysis. I will continue IV antibiotics for sepsis as per Infectious Disease. Parag Brownlee DO MTDD
[2017-12-18] MEDS: Dextrose 5%/0.9% NS 1,000 ML IV SCH ×2 (06:01→17:26)
[2017-12-18] MEDS: Insulin Reg-MEDIUM-Coverage SC SCH ×4 (07:49→22:10)
[2017-12-18] MEDS: Multivitamin Vitamin B Complex (Nephro-Vite) Tab PO SCH (08:23)
[2017-12-18] MEDS: Pantoprazole 40 mg EC Tab PO SCH (08:24)
[2017-12-18] MEDS: Zinc Oxide Topical 40% Oint (Desitin) TOP PRN (09:45)
--- NOTE | 2017-12-18 09:50 | CP.PCM.PN ---
<Marcela Jackson - Last Filed: 12/18/17 16:19> Subjective - Date & Time of Evaluation Date of Evaluation: 12/18/17 Time of Evaluation: 09:55 - Subjective Subjective: GI Fellow PGY4 Progress Note Pt seen and evaluated at bedside, pt reports having suprapubic pain and left sided abdominal pain, denies radiation of pain, or dysuria. He is having 1-2 soft brown BMs daily no reports diarrhea or bloody stool per nursing. Pt reports tolerating diet with no nausea or vomiting. ROS: A 12pt ROS was negative except as above. Objective - Vital Signs/Intake and Output Vital Signs (last 24 hours): Temp Pulse Resp BP Pulse Ox 99 F 101 H 18 142/76 96 12/18/17 08:25 12/18/17 08:25 12/18/17 08:25 12/18/17 08:25 12/18/17 08:25 Intake and Output: 12/18/17 12/18/17 06:59 18:59 Intake Total 560 Balance 560 - Medications Medications: Current Medications Abacavir Sulfate (Ziagen) 300 mg PO DAILY [facility] PRN Reason: Protocol Last Admin: 12/17/17 10:20 Dose: 300 mg Acetaminophen (Tylenol 325mg Tab) 650 mg PO Q4H PRN PRN Reason: Fever >100.4 F Last Admin: 12/14/17 12:08 Dose: 650 mg Allopurinol (Zyloprim) 100 mg PO DAILY [facility] Last Admin: 12/17/17 10:16 Dose: 100 mg Bismuth Subsalicylate (Pepto-Bismol) 262 mg PO Q6H PRN PRN Reason: Diarrhea Last Admin: 12/17/17 13:15 Dose: 262 mg Calcium/Vitamin D (Oscal-D 250 Mg-125 Units Tab) 1 tab PO DAILY [facility] Last Admin: 12/17/17 10:15 Dose: 1 tab Cholecalciferol (Vitamin D) 1,000 intlu PO DAILY [facility] Last Admin: 12/17/17 10:21 Dose: 1,000 intlu Darbepoetin Mario (Aranesp) 100 mcg IVP ONCE ONE Stop: 12/18/17 11:24 Dextrose (Dextrose 50% Inj) 50 ml IVP PRN PRN PRN Reason: Low blood sugar Last Admin: 12/11/17 17:12 Dose: 50 ml Heparin Sodium (Porcine) (Heparin) 1,700 units ICV TUTHSA [facility] Last Admin: 12/15/17 17:08 Dose: Not Given Meropenem 500 mg/ Sodium (Chloride) 50 mls @ 100 mls/hr IVPB 1400 DWAIN PRN Reason: Protocol Stop: 12/18/17 17:13 Last Admin: 12/17/17 13:30 Dose: 100 mls/hr Dextrose/Sodium Chloride (Dextrose 5%/0.9% Ns 1000 Ml) 1,000 mls @ 30 mls/hr IV .Q24H [facility] Last Admin: 12/18/17 06:01 Dose: 30 mls/hr Insulin Human Regular (Humulin R Med) 0 units SC ACHS [facility] PRN Reason: Protocol Last Admin: 12/18/17 07:49 Dose: Not Given Metoprolol Succinate (Toprol Xl) 25 mg PO DAILY [facility] Last Admin: 12/17/17 10:14 Dose: 25 mg Mupirocin (Bactroban Ointment) 0 gm TOP BID [facility] Last Admin: 12/17/17 17:29 Dose: 1 applic Nifedipine (Procardia Xl) 60 mg PO DAILY [facility] Last Admin: 12/17/17 10:15 Dose: 60 mg Dolutegravir Sodium [Tivicay] 50 Mg ( Home Med) 50 mg PO DAILY [facility] Last Admin: 12/17/17 10:18 Dose: 50 mg Lamivudine [Epivir Hbv] 100 Mg ( Home Med) 100 mg PO DAILY [facility] Last Admin: 12/17/17 10:18 Dose: 100 mg Pantoprazole Sodium (Protonix Ec Tab) 40 mg PO ACB [facility] Last Admin: 12/18/17 08:24 Dose: 40 mg Petrolatum (Desitin Maximum Strength Topical 40% Oint) 0 gm TOP Q4H PRN PRN Reason: Rash Last Admin: 12/14/17 12:24 Dose: 2 applic Tamsulosin HCl (Flomax) 0.4 mg PO DAILY [facility] Last Admin: 12/17/17 10:14 Dose: 0.4 mg Vitamin B Complex/Vit C/Folic Acid (Nephro-Christel) 1 tab PO 0800 [facility] Last Admin: 12/18/17 08:23 Dose: 1 tab - Labs Labs: 12/17/17 07:30 12/17/17 07:30 PT 17.7 SECONDS (9.4-12.5) H 12/08/17 17:00 INR 1.54 (0.93-1.08) H 12/08/17 17:00 APTT 41.8 Seconds (25.1-36.5) H 12/08/17 17:00 - Constitutional Appears: Non-toxic, No Acute Distress, Chronically Ill - Head Exam Head Exam: ATRAUMATIC, NORMAL INSPECTION, NORMOCEPHALIC - Eye Exam Eye Exam: EOMI, Normal appearance, PERRL Pupil Exam: PERRL - ENT Exam ENT Exam: Mucous Membranes Moist - Neck Exam Neck Exam: Full ROM, Normal Inspection - Respiratory Exam Respiratory Exam: Clear to Ausculation Bilateral, NORMAL BREATHING PATTERN - Cardiovascular Exam Cardiovascular Exam: Tachycardia, +S1, +S2 - GI/Abdominal Exam GI & Abdominal Exam: Soft, Tenderness, Normal Bowel Sounds. absent: Distended, Guarding, Rigid, Organomegaly, Rebound - Rectal Exam Rectal Exam: Deferred - Extremities Exam Additional comments: AKA right Toe amputations in left leg - Neurological Exam Neurological Exam: Alert, Awake, Oriented x3 - Psychiatric Exam Psychiatric exam: Normal Affect, Normal Mood - Skin Skin Exam: Dry, Intact, Normal Color, Warm Assessment and Plan - Assessment and Plan (Free Text) Assessment: This is a 72yM with pmhx of ESRD on HD, HTN, prostate CA, HIV on HAART, history of osteomyelitis of left foot S/P amputation (2015), gout, history of left foot ulcers, history of pyelonephritis with E. coli bacteremia, S/P left foot 3rd digit chronic osteomyelitis S/P amputation and debridement, severe PAD S/P angioplasty of the left tibial artery, s/p appendectomy and adhesion lysis ( discharged 11/21/17) [place] [facility] [place] and rapid heart rate at dialysis center. 1. Severe Enteritis-clinically improving 2. Colitis 3. E. coli bacteremia 4. Diarrhea- resolved, c.diff neg,stool studies neg 5. Hx of SBO s/o lysis of adhesions 6. Hx of hydronephrosis, pyelonephritis 7. Anemia of chronic disease 8. ESRD on HD 9. HIV on HAART Plan: -Continue supportive care with pain control -Pt clinically improved since admission, tolerating diet, no diarrhea -Stool infectious workup negative -Primary team ordered c.diff, await results -Continue diet as tolerated -PPI daily -Suprapubic and left sided pain maybe due to genitourinary symptoms, primary team ordered abdominal and pelvic US ddx: hydronephrosis, nephrolithiais -Pt has been seen by Urologist in the past for possible cystoscopy and stent placement but has refused, may need further evaluation for pain -CT angio 12/12/17 with celiacomesenteric trunk, no stenosis, enteritis improving -Continue IV abx per ID -Will reorder Fecal calprotectin as it was not done as previously ordered -Anemia with no rectal bleeding, likely chronic disease with esrd on HD, transfusion per primary team -Will continue to follow <Finesse Leonardo - Last Filed: 12/18/17 16:56> Objective - Vital Signs/Intake and Output Vital Signs (last 24 hours): Temp Pulse Resp BP Pulse Ox 97.7 F 100 H 18 151/81 H 96 12/18/17 14:48 12/18/17 14:48 12/18/17 14:48 12/18/17 14:48 12/18/17 08:25 Intake and Output: 12/18/17 12/18/17 06:59 18:59 Intake Total 560 975 Balance 560 975 - Medications Medications: Current Medications Abacavir Sulfate (Ziagen) 300 mg PO DAILY [facility] PRN Reason: Protocol Last Admin: 12/17/17 10:20 Dose: 300 mg Acetaminophen (Tylenol 325mg Tab) 650 mg PO Q4H PRN PRN Reason: Fever >100.4 F Last Admin: 12/14/17 12:08 Dose: 650 mg Allopurinol (Zyloprim) 100 mg PO DAILY [facility] Last Admin: 12/17/17 10:16 Dose: 100 mg Bismuth Subsalicylate (Pepto-Bismol) 262 mg PO Q6H PRN PRN Reason: Diarrhea Last Admin: 12/17/17 13:15 Dose: 262 mg Calcium/Vitamin D (Oscal-D 250 Mg-125 Units Tab) 1 tab PO DAILY [facility] Last Admin: 12/17/17 10:15 Dose: 1 tab Cholecalciferol (Vitamin D) 1,000 intlu PO DAILY [facility] Last Admin: 12/17/17 10:21 Dose: 1,000 intlu Dextrose (Dextrose 50% Inj) 50 ml IVP PRN PRN PRN Reason: Low blood sugar Last Admin: 12/11/17 17:12 Dose: 50 ml Heparin Sodium (Porcine) (Heparin) 1,700 units ICV TUTHSA [facility] Last Admin: 12/15/17 17:08 Dose: Not Given Meropenem 500 mg/ Sodium (Chloride) 50 mls @ 100 mls/hr IVPB 1400 [facility]IN PRN Reason: Protocol Stop: 12/18/17 17:13 Last Admin: 12/17/17 13:30 Dose: 100 mls/hr Dextrose/Sodium Chloride (Dextrose 5%/0.9% Ns 1000 Ml) 1,000 mls @ 30 mls/hr IV .Q24H [facility] Last Admin: 12/18/17 06:01 Dose: 30 mls/hr Insulin Human Regular (Humulin R Med) 0 units SC ACHS [facility] PRN Reason: Protocol Last Admin: 12/18/17 12:02 Dose: Not Given Metoprolol Succinate (Toprol Xl) 25 mg PO DAILY [facility] Last Admin: 12/17/17 10:14 Dose: 25 mg Mupirocin (Bactroban Ointment) 0 gm TOP BID [facility] Nifedipine (Procardia Xl) 60 mg PO DAILY [facility] Last Admin: 12/17/17 10:15 Dose: 60 mg Dolutegravir Sodium [Tivicay] 50 Mg ( Home Med) 50 mg PO DAILY [facility] Last Admin: 12/17/17 10:18 Dose: 50 mg Lamivudine [Epivir Hbv] 100 Mg ( Home Med) 100 mg PO DAILY [facility] Last Admin: 12/17/17 10:18 Dose: 100 mg Pantoprazole Sodium (Protonix Ec Tab) 40 mg PO ACB [facility] Last Admin: 12/18/17 08:24 Dose: 40 mg Petrolatum (Desitin Maximum Strength Topical 40% Oint) 0 gm TOP Q4H PRN PRN Reason: Rash Last Admin: 12/18/17 09:45 Dose: 1 applic Tamsulosin HCl (Flomax) 0.4 mg PO DAILY [facility] Last Admin: 12/17/17 10:14 Dose: 0.4 mg Vitamin B Complex/Vit C/Folic Acid (Nephro-Christel) 1 tab PO 0800 [facility] Last Admin: 12/18/17 08:23 Dose: 1 tab - Labs Labs: 12/18/17 11:00 12/18/17 11:00 PT 17.7 SECONDS (9.4-12.5) H 12/08/17 17:00 INR 1.54 (0.93-1.08) H 12/08/17 17:00 APTT 41.8 Seconds (25.1-36.5) H 12/08/17 17:00 Attending/Attestation - Attestation I have personally seen and examined this patient.: Yes I have fully participated in the care of the patient.: Yes I have reviewed all pertinent clinical information, including history, physical exam and plan: Yes Notes (Text): 12/18/17 16:54 72 year old male with h/o ESRD on HD, HTN, prostate CA, HIV on HAART, OM, gout,h /o pyeloneprhitis, PAD with persistent abdominal pain, found recnetly to have enteritis/colitis. Recommend abx per ID. Continue PPI. Consider repeat CT if no improvement. Stool studies. Eventually would recommend colonoscopy when medically improved.
[2017-12-18] MEDS ORDERED: Darbepoetin Alfa 100 mcg/ml Inj IVP ONE (11:23)
[2017-12-18 11:37] LABS: MEAN CELL VOLUME 89.4 fl (80.0-105.0); MEAN CORPUSCULAR HEMOGLOBIN 28.6 pg (25.0-35.0); MEAN PLATELET VOLUME 9.1 fl (7.0-11.0); RBC 2.45 10^6/uL (3.5-6.1)
[2017-12-18 11:42] LABS: ALB/GLOB RATIO 0.7 (1.1-1.8); ALBUMIN 2.3 g/dL (3.0-4.8); CALCIUM 7.8 mg/dL (8.4-10.5)
--- NOTE | 2017-12-18 15:16 | CP.PCM.PN ---
Subjective - Date & Time of Evaluation Date of Evaluation: 12/18/17 Time of Evaluation: 15:15 - Subjective Subjective: Nephrology Consultation Note: Assessment: Stable ESBL E.Coli SEPSIS (suspect permacath per ID) Enteritis and Colitis Hypokalemia, hypoglycemia recent High grade SBO s/p surgery, appendectomy: imporved hx of prostate CA Hypertensive Chronic Kidney Disease (I12.9) ESRD on HD via permacath (TTS) Anemia (D64.9), HTN (I12.9) HIV on HAART, PVD s/p angioplasty s/p Rt AKA Plan plan for HD today as per TTS schedule. nephrovite 1 tab/day. aransep 100 mcg weekly for anemia 12/18/17. PRBC as needed . last Hb 7.3. 1 unit PRBC 12/18/17 hold phos binders as pt with limited oral intake and low serum Phos Hypertension control with meds as ordered. resume nifedipine supplement K started D5NS as pt with limited oral intake and hypoglycemia. can d.c IVF once oral intake better. Liberalize diet, had d/w RN to change to regular diet Dose meds/antibiotics for ESRD status. Avoid fleets enema/magnesium based laxatives. Further work up/management as per primary team. Thanks for allowing me to participate in care of your patient. Please call if any Qs. d/w team Dr Yandel Arechiga Office: [phone] HPI: Pt is a 72 y/o M with hx of HIV on HAART, PVD s/p angioplasty, Rt AKA, hypertension (10-15 years), ESRD on HD (via permacath) [place] [facility] [place] foot toe amputations, prostate CA presented with pain abdomen and bacteremia renal consult for ESRD management pt doesn't feel well. says everything is bothering him as lower ext pain, groin pain. says alcala catheter was removed 2 weeks ago ROS: denies CP/SOB. all other neg except as in HPI. c/o abdomen pain. s/p CT guided aspiration 11/19/17 feels same with pain in heels, ankle. underwent CT angiogram abdomen 12/12/17 s/p permacath change 12/14/2017 Physical Examination: seen on HD General Appearance: in no acute respiratory distress, facial muscles wasted, ill appearing Vitals reviewed and noted as below Head; Atraumatic, normocephalic ENT: no ulcers no thrush. Tongue is midline dry. Oropharynx: no rash or ulcers. EYES: Pupils are equal, round and reactive to light accommodation. Eye muscles and extraocular movement intact. Sclera is anicteric. Neck; supple no lymphadenopathy, no thyromegaly or bruit Lungs: Normal respiratory rate/effort. Breath sounds bilateral clear Heart: Normal rate. s1s2 normal. No rub or gallop. Extremities: no edema. No varicose veins. s/p Rt AKA Neurological: Patient is alert oriented x 3 follow commands,. no focal deficit Skin: Warm and dry. Normal turgor. Palpitation: Normal elasticity for age. Abdomen: Abdomen is soft. distended and much less tender in lower abdomen area without guarding. Psych: limited insight. flat affect MSK: Digits and nails normal, left foot toe amputations in past. Rt AKA. : kidney not palpable. Access: permacath and maturing left AVF Labs/imaging/EKG reviewed. Past medical history, past surgical history, family history, social history, allergy reviewed and noted as below Family hx: sister was on dialysis. Rest non-contributory Objective - Vital Signs/Intake and Output Vital Signs (last 24 hours): Temp Pulse Resp BP Pulse Ox 97.7 F 100 H 18 151/81 H 96 12/18/17 14:48 12/18/17 14:48 12/18/17 14:48 12/18/17 14:48 12/18/17 08:25 Intake and Output: 12/18/17 12/18/17 06:59 18:59 Intake Total 560 975 Balance 560 975 - Medications Medications: Current Medications Abacavir Sulfate (Ziagen) 300 mg PO DAILY [facility]WA[facility] PRN Reason: Protocol Last Admin: 12/17/17 10:20 Dose: 300 mg Acetaminophen (Tylenol 325mg Tab) 650 mg PO Q4H PRN PRN Reason: Fever >100.4 F Last Admin: 12/14/17 12:08 Dose: 650 mg Allopurinol (Zyloprim) 100 mg PO DAILY [facility] Last Admin: 12/17/17 10:16 Dose: 100 mg Bismuth Subsalicylate (Pepto-Bismol) 262 mg PO Q6H PRN PRN Reason: Diarrhea Last Admin: 12/17/17 13:15 Dose: 262 mg Calcium/Vitamin D (Oscal-D 250 Mg-125 Units Tab) 1 tab PO DAILY [facility] Last Admin: 12/17/17 10:15 Dose: 1 tab Cholecalciferol (Vitamin D) 1,000 intlu PO DAILY [facility] Last Admin: 12/17/17 10:21 Dose: 1,000 intlu Dextrose (Dextrose 50% Inj) 50 ml IVP PRN PRN PRN Reason: Low blood sugar Last Admin: 12/11/17 17:12 Dose: 50 ml Heparin Sodium (Porcine) (Heparin) 1,700 units ICV TUTHSA [facility] Last Admin: 12/15/17 17:08 Dose: Not Given Meropenem 500 mg/ Sodium (Chloride) 50 mls @ 100 mls/hr IVPB 1400 DWAIN PRN Reason: Protocol Stop: 12/18/17 17:13 Last Admin: 12/17/17 13:30 Dose: 100 mls/hr Dextrose/Sodium Chloride (Dextrose 5%/0.9% Ns 1000 Ml) 1,000 mls @ 30 mls/hr IV .Q24H [facility] Last Admin: 12/18/17 06:01 Dose: 30 mls/hr Insulin Human Regular (Humulin R Med) 0 units SC ACHS [facility] PRN Reason: Protocol Last Admin: 12/18/17 12:02 Dose: Not Given Metoprolol Succinate (Toprol Xl) 25 mg PO DAILY [facility] Last Admin: 12/17/17 10:14 Dose: 25 mg Mupirocin (Bactroban Ointment) 0 gm TOP BID [facility] Last Admin: 12/17/17 17:29 Dose: 1 applic Nifedipine (Procardia Xl) 60 mg PO DAILY [facility] Last Admin: 12/17/17 10:15 Dose: 60 mg Dolutegravir Sodium [Tivicay] 50 Mg ( Home Med) 50 mg PO DAILY [facility] Last Admin: 12/17/17 10:18 Dose: 50 mg Lamivudine [Epivir Hbv] 100 Mg ( Home Med) 100 mg PO DAILY [facility] Last Admin: 12/17/17 10:18 Dose: 100 mg Pantoprazole Sodium (Protonix Ec Tab) 40 mg PO ACB [facility] Last Admin: 12/18/17 08:24 Dose: 40 mg Petrolatum (Desitin Maximum Strength Topical 40% Oint) 0 gm TOP Q4H PRN PRN Reason: Rash Last Admin: 12/18/17 09:45 Dose: 1 applic Tamsulosin HCl (Flomax) 0.4 mg PO DAILY [facility] Last Admin: 12/17/17 10:14 Dose: 0.4 mg Vitamin B Complex/Vit C/Folic Acid (Nephro-Christel) 1 tab PO 0800 [facility] Last Admin: 12/18/17 08:23 Dose: 1 tab - Labs Labs: 12/18/17 11:00 12/18/17 11:00 PT 17.7 SECONDS (9.4-12.5) H 12/08/17 17:00 INR 1.54 (0.93-1.08) H 12/08/17 17:00 APTT 41.8 Seconds (25.1-36.5) H 12/08/17 17:00
--- NOTE | 2017-12-18 16:07 | PN ---
DATE: 12/18/2017 SUBJECTIVE: I saw Raza resting comfortably in bed. He is now having left-sided abdominal pain. He is also having diarrhea. I will call back GI to take a look at and do an ultrasound the abdomen and pelvis. I am going to stop the MiraLax, check the stool for C. Diff. He is comfortable, otherwise. OBJECTIVE: VITAL SIGNS: He has 98.5 temperature, 104 pulse, 139/78 blood pressure, 20 respiratory rate, 100% O2 saturation on room air. HEENT: Head is atraumatic, normocephalic. HEART: Regular rate. LUNGS: Decreased breath sounds, but clear. ABDOMEN: Soft, nontender. Positive bowel sounds . EXTREMITIES: He has a right AKA; left, no edema. He is currently on Aranesp, Bactroban, Desitin, dextrose, Tivicay, Flomax, heparin, Humulin, Epivir, Merrem IV, Nephro-Christel, Os-Terrell, Pepto-Bismol as needed, Procardia, Protonix, Toprol, Tylenol, vitamin D, Ziagen and Zyloprim. I stopped the MiraLax. He has a 12.3 white count, 7.3 hemoglobin, 20.5 hematocrit, that was yesterday's; awaiting for this morning's labs to populate; last blood sugar was 87. He was given transfusion and dialysis hemoglobin clotilde, await for the labs to come back, we will check his labs tomorrow, await the GI to reevaluate, check his stool for C. difficile. IV antibiotics for sepsis, end-stage renal disease, low potassium, HIV history. Parag Brownlee DO LORENZA
--- NOTE | 2017-12-18 16:33 | CP.PCM.PN ---
Subjective - Date & Time of Evaluation Date of Evaluation: 12/18/17 Time of Evaluation: 12:30 - Subjective Subjective: No fevers, not in distress, afebrile. Objective - Vital Signs/Intake and Output Vital Signs (last 24 hours): Temp Pulse Resp BP Pulse Ox 99 F 101 H 18 142/76 96 12/18/17 08:25 12/18/17 08:25 12/18/17 08:25 12/18/17 08:25 12/18/17 08:25 Intake and Output: 12/18/17 12/18/17 06:59 18:59 Intake Total 560 Balance 560 - Medications Medications: Current Medications Abacavir Sulfate (Ziagen) 300 mg PO DAILY [facility] PRN Reason: Protocol Last Admin: 12/17/17 10:20 Dose: 300 mg Acetaminophen (Tylenol 325mg Tab) 650 mg PO Q4H PRN PRN Reason: Fever >100.4 F Last Admin: 12/14/17 12:08 Dose: 650 mg Allopurinol (Zyloprim) 100 mg PO DAILY [facility] Last Admin: 12/17/17 10:16 Dose: 100 mg Bismuth Subsalicylate (Pepto-Bismol) 262 mg PO Q6H PRN PRN Reason: Diarrhea Last Admin: 12/17/17 13:15 Dose: 262 mg Calcium/Vitamin D (Oscal-D 250 Mg-125 Units Tab) 1 tab PO DAILY [facility] Last Admin: 12/17/17 10:15 Dose: 1 tab Cholecalciferol (Vitamin D) 1,000 intlu PO DAILY [facility] Last Admin: 12/17/17 10:21 Dose: 1,000 intlu Darbepoetin Mario (Aranesp) 100 mcg IVP ONCE ONE Stop: 12/18/17 11:24 Dextrose (Dextrose 50% Inj) 50 ml IVP PRN PRN PRN Reason: Low blood sugar Last Admin: 12/11/17 17:12 Dose: 50 ml Heparin Sodium (Porcine) (Heparin) 1,700 units ICV TUTHSA [facility] Last Admin: 12/15/17 17:08 Dose: Not Given Meropenem 500 mg/ Sodium (Chloride) 50 mls @ 100 mls/hr IVPB 1400 [facility] PRN Reason: Protocol Stop: 12/18/17 17:13 Last Admin: 04/30/18 13:30 Dose: 100 mls/hr Dextrose/Sodium Chloride (Dextrose 5%/0.9% Ns 1000 Ml) 1,000 mls @ 30 mls/hr IV .Q24H [facility] Last Admin: 12/18/17 06:01 Dose: 30 mls/hr Insulin Human Regular (Humulin R Med) 0 units SC ACHS [facility] PRN Reason: Protocol Last Admin: 12/18/17 07:49 Dose: Not Given Metoprolol Succinate (Toprol Xl) 25 mg PO DAILY [facility] Last Admin: 12/17/17 10:14 Dose: 25 mg Mupirocin (Bactroban Ointment) 0 gm TOP BID [facility] Last Admin: 12/17/17 17:29 Dose: 1 applic Nifedipine (Procardia Xl) 60 mg PO DAILY [facility] Last Admin: 12/17/17 10:15 Dose: 60 mg Dolutegravir Sodium [Tivicay] 50 Mg ( Home Med) 50 mg PO DAILY [facility] Last Admin: 12/17/17 10:18 Dose: 50 mg Lamivudine [Epivir Hbv] 100 Mg ( Home Med) 100 mg PO DAILY [facility] Last Admin: 12/17/17 10:18 Dose: 100 mg Pantoprazole Sodium (Protonix Ec Tab) 40 mg PO ACB [facility] Last Admin: 12/18/17 08:24 Dose: 40 mg Petrolatum (Desitin Maximum Strength Topical 40% Oint) 0 gm TOP Q4H PRN PRN Reason: Rash Last Admin: 12/14/17 12:24 Dose: 2 applic Tamsulosin HCl (Flomax) 0.4 mg PO DAILY [facility] Last Admin: 12/17/17 10:14 Dose: 0.4 mg Vitamin B Complex/Vit C/Folic Acid (Nephro-Christel) 1 tab PO 0800 [facility] Last Admin: 12/18/17 08:23 Dose: 1 tab - Labs Labs: 12/17/17 07:30 12/17/17 07:30 PT 17.7 SECONDS (9.4-12.5) H 12/08/17 17:00 INR 1.54 (0.93-1.08) H 12/08/17 17:00 APTT 41.8 Seconds (25.1-36.5) H 12/08/17 17:00 - Constitutional Appears: Cachectic, Chronically Ill - Head Exam Head Exam: NORMAL INSPECTION - Respiratory Exam Respiratory Exam: Decreased Breath Sounds Additional comments: right sided HD catheter in place - Cardiovascular Exam Cardiovascular Exam: +S1, +S2 - GI/Abdominal Exam GI & Abdominal Exam: Soft. absent: Tenderness Assessment and Plan - Assessment and Plan (Free Text) Plan: Assessment sepsis due to ESBL E. coli bacteremia, consider HD catheter associated bacteremia s/P removal of right sided catheter and placement of new left anterior chest wall catheter history of small bowel obstruction S/P ex-lap, adhesiolysis, repair of umbilical hernia and appendectomy S/P UTI severe PAD S/P angioplasty of the left tibial artery S/P right AKA UTI with MRSA and Strep viridans systemic viral illness with Influenza history of left foot 3rd digit chronic osteomyelitis S/P amputation and debridement right sided nephrolithiasis history of severe sepsis with acute on chronic renal failure probably due to pyelonephritis with E. coli bacteremia history of C. diff. associated diarrhea Charcot foot, left history of left 2nd toe dry gangrene Chronic renal failure on hemodialysis HTN prostate CA HIV (patient goes to the [place] with last CD4 count here at [facility] [place] 03/2016 349 and virus load < 1.3 log) history of osteomyelitis of left first toe S/P amputation (2015) gout history of left foot ulcers Plan continue Merrem to complete at least 10-14 days of therapy (day 5 from change of catheter) continue antiretroviral therapy (lamivudine, abacavir on formulary but dolutegravir should be taken by patient from his home supply) overall prognosis is poor
[2017-12-18] MEDS: Meropenem 500 MG in Sodium Chloride 0.9% 50 ML IVPB SCH (17:11)
[2017-12-18] MEDS: LAMIVUDINE 100 MG PO SCH (17:12)
[2017-12-18] MEDS: Dolutegravir Sodium [Tivicay] 50 mg (HOME MED) PO SCH (17:13)
[2017-12-18] MEDS: Metoprolol Succinate 25 mg XL Tab PO SCH (17:14)
[2017-12-18] MEDS: Cholecalciferol 1,000 INTLU TAB PO SCH (17:15)
[2017-12-18] MEDS: Calcium-Vit D 250 mg-125 Units Tab UD PO SCH (17:15)
[2017-12-18] MEDS: NIFEdipine 60 mg ER Tab PO SCH (17:16)
--- NOTE | 2017-12-18 19:02 | US ---
HISTORY: left side pain COMPARISON: None. TECHNIQUE: Sonographic evaluation of the abdomen. FINDINGS: A mild right pleural effusion is incidentally identified. LIVER: Measures 15.7 cm. Normal echogenicity of the liver parenchyma. No mass. No intrahepatic bile duct dilatation. GALLBLADDER: Unremarkable. No gallstones. COMMON BILE DUCT: Measures 3.3 mm. No stones. No dilatation. PANCREAS: Unremarkable as visualized. No mass. No ductal dilatation. RIGHT KIDNEY: Measures 8.6cm. Moderate proximal hydroureter noted. No calculus or mass grossly evident. LEFT KIDNEY: Measures 8.2cm. Moderate proximal hydroureter noted. No calculus or mass grossly evident. SPLEEN: Normal in size and contour, measuring 9.4 cm. No mass. AORTA: No aneurysmal dilatation. IVC: Unremarkable. OTHER FINDINGS: None. IMPRESSION: Bilateral moderate proximal hydroureter of indeterminate etiology. No hydronephrosis identified bilaterally. This represents an interval finding compared prior and pelvis CT 12/12/2017.
--- NOTE | 2017-12-18 21:19 | PN ---
DATE: 12/18/2017 SUBJECTIVE: A 72-year-old diabetic male seen at bedside for continued evaluation and management of a stage I left diabetic heel ulceration. The patient is awake, alert, and oriented x3. He has no complaints at this time. He denies any fever, chills, nausea, vomiting, or shortness of breath. OBJECTIVE: VITAL SIGNS: Reveal temperature of 97.7, pulse rate of 100, blood pressure of 151/81, and respiratory rate of 18. EXTREMITIES: There is noted to be a right above-knee amputation. Both lower extremity weakly palpable pedal pulses. Capillary filling time is delayed x10. Temperature gradient is reversed. There is noted to be a non staged pressure ulceration on the left heel. There is noted to be no drainage, no purulence, no probing to tendon or bone, no malodor, no abscess formation. The patient is unable to detect 5.07 g monofilament wire testing bilaterally. There are noted to be Charcot changes noted throughout the left foot. There is amputated left hallux and second digit. LABORATORY FINDINGS: Reveal a white count of 12, hemoglobin of 7, hematocrit of 21.9, and platelet count 559. ASSESSMENT: A 72-year-old diabetic male with left heel stage I pressure ulceration secondary to bed bound status. PLAN: The patient was seen and evaluated. Wounds were cleansed with normal sterile saline, and an application of Bactroban and Optifoam was applied to his heel. We will continue using the multipurpose boot at all times to prevent further skin breakdown. The patient will be seen and followed daily. Jerrod Dunn DPM
--- NOTE | 2017-12-18 21:54 | US ---
EXAM: US Bladder EXAM DATE/TIME: 12/18/2017 8:16 AM CLINICAL HISTORY: The patient age is 72 years old and is male; Pain; Pelvic pain; Additional info: Left sided pain Facility exam id and description: Us bladder bladder only/residual urine TECHNIQUE: Real-time bladder ultrasound with image documentation. COMPARISON: US - BLADDER ONLY/RESIDUAL URINE 2017-11-07 11:44 FINDINGS: Prostate: Not imaged. Seminal vessicles: Not imaged. Bladder: Prevoid, the bladder measures 6.1 x 3.5 x 6.0 cm. This is consistent with a volume of 90.9 mm. The patient was unable to void in order to evaluate for post void residual. There is nonspecific bladder wall thickening. The measured bladder wall thickness is 0.9 cm. Significant echogenic debris is again identified posteriorly within the bladder. A bladder mass cannot be excluded. This area of suggested debris measures approximately 4.5 x 4.6 x 2.1 cm. Ureteral jets are not visualized within the bladder bilaterally. IMPRESSION: 1. Prevoid, the bladder measures 6.1 x 3.5 x 6.0 cm. This is consistent with a volume of 90.9 mm. The patient was unable to void in order to evaluate for post void residual. 2. There is nonspecific bladder wall thickening. 3. Significant echogenic debris is again identified posteriorly within the bladder. A bladder mass cannot be excluded. Further clinical evaluation is recommended. 4. Ureteral jets are not visualized within the bladder bilaterally.
[2017-12-19 07:29] LABS: HEMOGLOBIN 8.7 g/dL (14.0-18.0); MEAN CELL VOLUME 90.4 fl (80.0-105.0); MEAN CORPUSCULAR HEMOGLOBIN 28.8 pg (25.0-35.0); MEAN CORPUSCULAR HGB CONC 31.9 g/dl (31.0-37.0); MEAN PLATELET VOLUME 9.6 fl (7.0-11.0); RBC 3.02 10^6/uL (3.5-6.1); RED CELL DISTRIBUTION WIDTH 17.5 % (11.5-14.5); WHITE BLOOD COUNT 15.2 10^3/ul (4.5-11.0)
[2017-12-19] MEDS: Insulin Reg-MEDIUM-Coverage SC SCH ×4 (07:49→22:44)
[2017-12-19 07:54] LABS: ALB/GLOB RATIO 0.7 (1.1-1.8); ALBUMIN 2.6 g/dL (3.0-4.8); CALCIUM 7.7 mg/dL (8.4-10.5)
[2017-12-19] MEDS: Multivitamin Vitamin B Complex (Nephro-Vite) Tab PO SCH (08:23)
[2017-12-19] MEDS: Pantoprazole 40 mg EC Tab PO SCH (08:23)
[2017-12-19] MEDS: Dolutegravir Sodium [Tivicay] 50 mg (HOME MED) PO SCH (09:36)
[2017-12-19] MEDS: LAMIVUDINE 100 MG PO SCH (09:36)
[2017-12-19] MEDS: Cholecalciferol 1,000 INTLU TAB PO SCH (09:37)
[2017-12-19] MEDS: Metoprolol Succinate 25 mg XL Tab PO SCH (09:37)
[2017-12-19] MEDS: Zinc Oxide Topical 40% Oint (Desitin) TOP PRN (09:40)
[2017-12-19] MEDS: Calcium-Vit D 250 mg-125 Units Tab UD PO SCH (09:40)
[2017-12-19] MEDS: NIFEdipine 60 mg ER Tab PO SCH (09:44)
--- NOTE | 2017-12-19 11:12 | CP.PCM.PN ---
Subjective - Date & Time of Evaluation Date of Evaluation: 12/19/17 Time of Evaluation: 11:09 - Subjective Subjective: Nephrology Consultation Note: Assessment: Stable ESBL E.Coli SEPSIS (suspect permacath a source per ID) Enteritis and Colitis Hypokalemia, hypoglycemia, hypophosphatemia recent High grade SBO s/p surgery, appendectomy: improved hx of prostate CA Hypertensive Chronic Kidney Disease (I12.9) ESRD on HD via permacath (TTS) Anemia (D64.9), HTN (I12.9) HIV on HAART, PVD s/p angioplasty s/p Rt AKA Plan plan for HD tomorrow as per TTS schedule. nephrovite 1 tab/day. aransep 100 mcg weekly for anemia 12/18/17. PRBC as needed . last Hb 8.7. 1 unit PRBC 12/18/17 hold phos binders as pt with limited oral intake and low serum Phos Hypertension control with meds as ordered. resume nifedipine supplement K as needed d.c IVF as oral intake better. Liberalize diet, had d/w RN to change to regular diet Dose meds/antibiotics for ESRD status. Avoid fleets enema/magnesium based laxatives. Further work up/management as per primary team. Thanks for allowing me to participate in care of your patient. Will follow with you. Please call if any Qs. d/w team Dr Yandel Arechiga Office: [phone] HPI: Pt is a 72 y/o M with hx of HIV on HAART, PVD s/p angioplasty, Rt AKA, hypertension (10-15 years), ESRD on HD (via permacath) [place] [facility] [place], left foot toe amputations, prostate CA presented with pain abdomen and bacteremia renal consult for ESRD management pt doesn't feel well. says everything is bothering him as lower ext pain, groin pain. says alcala catheter was removed 2 weeks ago ROS: denies CP/SOB. all other neg except as in HPI. c/o abdomen pain. feels same with pain in heels, ankle. Procedures: s/p CT guided aspiration 11/19/17, underwent CT angiogram abdomen . s/p permacath change 12/14/2017 oral intake better as per nursing staff Physical Examination: General Appearance: in no acute respiratory distress, facial muscles wasted, ill appearing Vitals reviewed and noted as below Head; Atraumatic, normocephalic ENT: no ulcers no thrush. Tongue is midline dry. Oropharynx: no rash or ulcers. EYES: Pupils are equal, round and reactive to light accommodation. Eye muscles and extraocular movement intact. Sclera is anicteric. Neck; supple no lymphadenopathy, no thyromegaly or bruit Lungs: Normal respiratory rate/effort. Breath sounds bilateral clear Heart: Normal rate. s1s2 normal. No rub or gallop. Extremities: no edema. No varicose veins. s/p Rt AKA Neurological: Patient is alert oriented x 3 follow commands,. no focal deficit Skin: Warm and dry. Normal turgor. Palpitation: Normal elasticity for age. Abdomen: Abdomen is soft. distended and much less tender in lower abdomen area without guarding. Psych: limited insight. flat affect MSK: Digits and nails normal, left foot toe amputations in past. Rt AKA. : kidney not palpable. Access: permacath and maturing left AVF Labs/imaging/EKG reviewed. Past medical history, past surgical history, family history, social history, allergy reviewed and noted as below Family hx: sister was on dialysis. Rest non-contributory Objective - Vital Signs/Intake and Output Vital Signs (last 24 hours): Temp Pulse Resp BP Pulse Ox 98.5 F 62 20 123/71 98 12/19/17 08:17 12/19/17 09:44 12/19/17 08:17 12/19/17 09:44 12/19/17 08:17 Intake and Output: 12/19/17 12/19/17 06:59 18:59 Intake Total 1420 Balance 1420 - Medications Medications: Current Medications Abacavir Sulfate (Ziagen) 300 mg PO DAILY [facility] PRN Reason: Protocol Last Admin: 12/19/17 09:37 Dose: 300 mg Acetaminophen (Tylenol 325mg Tab) 650 mg PO Q4H PRN PRN Reason: Fever >100.4 F Last Admin: 12/14/17 12:08 Dose: 650 mg Allopurinol (Zyloprim) 100 mg PO DAILY [facility] Last Admin: 12/19/17 09:37 Dose: 100 mg Bismuth Subsalicylate (Pepto-Bismol) 262 mg PO Q6H PRN PRN Reason: Diarrhea Last Admin: 12/17/17 13:15 Dose: 262 mg Calcium/Vitamin D (Oscal-D 250 Mg-125 Units Tab) 1 tab PO DAILY [facility] Last Admin: 12/19/17 09:40 Dose: 1 tab Cholecalciferol (Vitamin D) 1,000 intlu PO DAILY [facility] Last Admin: 12/19/17 09:37 Dose: 1,000 intlu Dextrose (Dextrose 50% Inj) 50 ml IVP PRN PRN PRN Reason: Low blood sugar Last Admin: 12/11/17 17:12 Dose: 50 ml Heparin Sodium (Porcine) (Heparin) 1,700 units ICV TUTA [facility] Last Admin: 12/15/17 17:08 Dose: Not Given Dextrose/Sodium Chloride (Dextrose 5%/0.9% Ns 1000 Ml) 1,000 mls @ 30 mls/hr IV .Q24H [facility] Last Admin: 12/18/17 17:26 Dose: 30 mls/hr Insulin Human Regular (Humulin R Med) 0 units SC ACHS [facility] PRN Reason: Protocol Last Admin: 12/19/17 07:49 Dose: Not Given Metoprolol Succinate (Toprol Xl) 25 mg PO DAILY [facility] Last Admin: 12/19/17 09:37 Dose: 25 mg Mupirocin (Bactroban Ointment) 0 gm TOP BID [facility] Last Admin: 12/19/17 09:40 Dose: 1 applic Nifedipine (Procardia Xl) 60 mg PO DAILY [facility] Last Admin: 12/19/17 09:44 Dose: 60 mg Dolutegravir Sodium [Tivicay] 50 Mg ( Home Med) 50 mg PO DAILY [facility] Last Admin: 12/19/17 09:36 Dose: 50 mg Lamivudine [Epivir Hbv] 100 Mg ( Home Med) 100 mg PO DAILY [facility] Last Admin: 12/19/17 09:36 Dose: 100 mg Pantoprazole Sodium (Protonix Ec Tab) 40 mg PO ACB [facility] Last Admin: 12/19/17 08:23 Dose: 40 mg Petrolatum (Desitin Maximum Strength Topical 40% Oint) 0 gm TOP Q4H PRN PRN Reason: Rash Last Admin: 12/19/17 09:40 Dose: 1 applic Tamsulosin HCl (Flomax) 0.4 mg PO DAILY [facility] Last Admin: 12/19/17 09:37 Dose: 0.4 mg Vitamin B Complex/Vit C/Folic Acid (Nephro-Christel) 1 tab PO 0800 [facility] Last Admin: 12/19/17 08:23 Dose: 1 tab - Labs Labs: 12/19/17 07:00 12/19/17 07:00 PT 17.7 SECONDS (9.4-12.5) H 12/08/17 17:00 INR 1.54 (0.93-1.08) H 12/08/17 17:00 APTT 41.8 Seconds (25.1-36.5) H 12/08/17 17:00
[2017-12-19] MEDS: Meropenem 500 MG in Sodium Chloride 0.9% 50 ML IVPB SCH (13:09)
[2017-12-19] MEDS: Vancomycin 25 MG/ML PO SCH ×3 (13:10→22:42)
--- NOTE | 2017-12-19 13:33 | CP.PCM.PN ---
<Marcela Jackson - Last Filed: 12/19/17 13:33> Subjective - Date & Time of Evaluation Date of Evaluation: 12/19/17 Time of Evaluation: 10:00 - Subjective Subjective: GI Fellow PGY4 Progress Note Pt seen and evaluated at bedside, pt reports slight improvement in abdominal pain, denies radiation of pain, or dysuria. He is having 1-2 soft brown BMs daily no reports diarrhea or bloody stool per nursing. Pt reports tolerating diet with no nausea or vomiting. ROS: A 12pt ROS was negative except as above. Objective - Vital Signs/Intake and Output Vital Signs (last 24 hours): Temp Pulse Resp BP Pulse Ox 98.5 F 62 20 123/71 98 12/19/17 08:17 12/19/17 09:44 12/19/17 08:17 12/19/17 09:44 12/19/17 08:17 Intake and Output: 12/19/17 12/19/17 06:59 18:59 Intake Total 1420 Balance 1420 - Medications Medications: Current Medications Abacavir Sulfate (Ziagen) 300 mg PO DAILY [facility] PRN Reason: Protocol Last Admin: 12/19/17 09:37 Dose: 300 mg Acetaminophen (Tylenol 325mg Tab) 650 mg PO Q4H PRN PRN Reason: Fever >100.4 F Last Admin: 12/14/17 12:08 Dose: 650 mg Allopurinol (Zyloprim) 100 mg PO DAILY [facility] Last Admin: 12/19/17 09:37 Dose: 100 mg Bismuth Subsalicylate (Pepto-Bismol) 262 mg PO Q6H PRN PRN Reason: Diarrhea Last Admin: 12/17/17 13:15 Dose: 262 mg Calcium/Vitamin D (Oscal-D 250 Mg-125 Units Tab) 1 tab PO DAILY [facility] Last Admin: 12/19/17 09:40 Dose: 1 tab Cholecalciferol (Vitamin D) 1,000 intlu PO DAILY [facility] Last Admin: 12/19/17 09:37 Dose: 1,000 intlu Dextrose (Dextrose 50% Inj) 50 ml IVP PRN PRN PRN Reason: Low blood sugar Last Admin: 12/11/17 17:12 Dose: 50 ml Heparin Sodium (Porcine) (Heparin) 1,700 units [facility] Last Admin: 12/15/17 17:08 Dose: Not Given Meropenem 500 mg/ Sodium (Chloride) 50 mls @ 100 mls/hr IVPB Q24H [facility] PRN Reason: Protocol Stop: 12/26/17 11:31 Last Admin: 12/19/17 13:09 Dose: 100 mls/hr Insulin Human Regular (Humulin R Med) 0 units SC ACHS [facility] PRN Reason: Protocol Last Admin: 12/19/17 12:16 Dose: Not Given Metoprolol Succinate (Toprol Xl) 25 mg PO DAILY [facility] Last Admin: 12/19/17 09:37 Dose: 25 mg Mupirocin (Bactroban Ointment) 0 gm TOP BID [facility] Last Admin: 12/19/17 09:40 Dose: 1 applic Nifedipine (Procardia Xl) 60 mg PO DAILY [facility] Last Admin: 12/19/17 09:44 Dose: 60 mg Dolutegravir Sodium [Tivicay] 50 Mg ( Home Med) 50 mg PO DAILY [facility] Last Admin: 12/19/17 09:36 Dose: 50 mg Lamivudine [Epivir Hbv] 100 Mg ( Home Med) 100 mg PO DAILY [facility] Last Admin: 12/19/17 09:36 Dose: 100 mg Pantoprazole Sodium (Protonix Ec Tab) 40 mg PO ACB [facility] Last Admin: 12/19/17 08:23 Dose: 40 mg Petrolatum (Desitin Maximum Strength Topical 40% Oint) 0 gm TOP Q4H PRN PRN Reason: Rash Last Admin: 12/19/17 09:40 Dose: 1 applic Tamsulosin HCl (Flomax) 0.4 mg PO DAILY [facility] Last Admin: 12/19/17 09:37 Dose: 0.4 mg Vancomycin HCl (Vancocin 25 Mg/Ml (Oral Use)) 125 mg PO QID [facility] PRN Reason: Protocol Stop: 12/29/17 14:01 Last Admin: 12/19/17 13:10 Dose: 125 mg Vitamin B Complex/Vit C/Folic Acid (Nephro-Christel) 1 tab PO 0800 [facility] Last Admin: 12/19/17 08:23 Dose: 1 tab - Labs Labs: 12/19/17 07:00 12/19/17 07:00 PT 17.7 SECONDS (9.4-12.5) H 12/08/17 17:00 INR 1.54 (0.93-1.08) H 12/08/17 17:00 APTT 41.8 Seconds (25.1-36.5) H 12/08/17 17:00 - Constitutional Appears: Non-toxic, No Acute Distress, Cachectic, Chronically Ill - Head Exam Head Exam: ATRAUMATIC, NORMAL INSPECTION, NORMOCEPHALIC - Eye Exam Eye Exam: EOMI, Normal appearance, PERRL Pupil Exam: PERRL - ENT Exam ENT Exam: Mucous Membranes Moist - Neck Exam Neck Exam: Full ROM, Normal Inspection - Cardiovascular Exam Cardiovascular Exam: REGULAR RHYTHM, +S1, +S2 - GI/Abdominal Exam GI & Abdominal Exam: Soft, Tenderness, Normal Bowel Sounds. absent: Distended, Firm, Guarding, Rigid, Organomegaly - Rectal Exam Rectal Exam: Deferred - Neurological Exam Neurological Exam: Alert, Awake, Oriented x3 - Psychiatric Exam Psychiatric exam: Normal Affect, Normal Mood - Skin Skin Exam: Dry, Intact, Normal Color, Warm Assessment and Plan - Assessment and Plan (Free Text) Assessment: This is a 72yM with pmhx of ESRD on HD, HTN, prostate CA, HIV on HAART, history of osteomyelitis of left foot S/P amputation (2015), gout, history of left foot ulcers, history of pyelonephritis with E. coli bacteremia, S/P left foot 3rd digit chronic osteomyelitis S/P amputation and debridement, severe PAD S/P angioplasty of the left tibial artery, s/p appendectomy and adhesion lysis ( discharged 11/21/17) was sent in to [facility] because fever and rapid heart rate at dialysis center. 1. Severe Enteritis-clinically improving 2. Colitis 3. E. coli bacteremia 4. Diarrhea- resolved, c.diff neg,stool studies neg 5. Hx of SBO s/o lysis of adhesions 6. Hx of hydronephrosis, pyelonephritis 7. Anemia of chronic disease 8. ESRD on HD 9. HIV on HAART Plan: -Continue supportive care with pain control -Pt clinically improved since admission, tolerating diet, no diarrhea -Stool infectious workup negative -Primary team ordered c.diff, await results -Continue diet as tolerated -PPI daily -Abdominal and Bladder US negative -CT angio 12/12/17 with celiacomesenteric trunk, no stenosis, enteritis improving -Continue IV abx per ID -Will reorder Fecal calprotectin as it was not done as previously ordered -Anemia with no rectal bleeding, likely chronic disease with esrd on HD, transfusion per primary team -If pain continues or worsens repeat CT scan -Will need colonoscopy when medically improved -Will continue to follow <Flavia Ji - Last Filed: 12/19/17 18:54> Objective - Vital Signs/Intake and Output Vital Signs (last 24 hours): Temp Pulse Resp BP Pulse Ox 97.9 F 102 H 20 138/81 97 12/19/17 15:07 12/19/17 15:07 12/19/17 15:07 12/19/17 15:07 12/19/17 15:07 Intake and Output: 12/19/17 12/19/17 06:59 18:59 Intake Total 1420 Balance 1420 - Medications Medications: Current Medications Abacavir Sulfate (Ziagen) 300 mg PO DAILY [facility] PRN Reason: Protocol Last Admin: 12/19/17 09:37 Dose: 300 mg Acetaminophen (Tylenol 325mg Tab) 650 mg PO Q4H PRN PRN Reason: Fever >100.4 F Last Admin: 12/14/17 12:08 Dose: 650 mg Allopurinol (Zyloprim) 100 mg PO DAILY [facility] Last Admin: 12/19/17 09:37 Dose: 100 mg Bismuth Subsalicylate (Pepto-Bismol) 262 mg PO Q6H PRN PRN Reason: Diarrhea Last Admin: 12/19/17 14:08 Dose: 262 mg Calcium/Vitamin D (Oscal-D 250 Mg-125 Units Tab) 1 tab PO DAILY [facility] Last Admin: 12/19/17 09:40 Dose: 1 tab Cholecalciferol (Vitamin D) 1,000 intlu PO DAILY [facility] Last Admin: 12/19/17 09:37 Dose: 1,000 intlu Dextrose (Dextrose 50% Inj) 50 ml IVP PRN PRN PRN Reason: Low blood sugar Last Admin: 12/11/17 17:12 Dose: 50 ml Heparin Sodium (Porcine) (Heparin) 1,700 units ICV TUTA [facility] Last Admin: 12/15/17 17:08 Dose: Not Given Meropenem 500 mg/ Sodium (Chloride) 50 mls @ 100 mls/hr IVPB Q24H [facility] PRN Reason: Protocol Stop: 12/26/17 11:31 Last Admin: 12/19/17 13:09 Dose: 100 mls/hr Insulin Human Regular (Humulin R Med) 0 units SC ACHS [facility] PRN Reason: Protocol Last Admin: 12/19/17 16:47 Dose: Not Given Metoprolol Succinate (Toprol Xl) 25 mg PO DAILY [facility] Last Admin: 12/19/17 09:37 Dose: 25 mg Mupirocin (Bactroban Ointment) 0 gm TOP BID [facility] Last Admin: 12/19/17 17:36 Dose: 1 applic Nifedipine (Procardia Xl) 60 mg PO DAILY [facility] Last Admin: 12/19/17 09:44 Dose: 60 mg Dolutegravir Sodium [Tivicay] 50 Mg ( Home Med) 50 mg PO DAILY [facility] Last Admin: 12/19/17 09:36 Dose: 50 mg Lamivudine [Epivir Hbv] 100 Mg ( Home Med) 100 mg PO DAILY [facility] Last Admin: 12/19/17 09:36 Dose: 100 mg Pantoprazole Sodium (Protonix Ec Tab) 40 mg PO ACB [facility] Last Admin: 12/19/17 08:23 Dose: 40 mg Petrolatum (Desitin Maximum Strength Topical 40% Oint) 0 gm TOP Q4H PRN PRN Reason: Rash Last Admin: 12/19/17 09:40 Dose: 1 applic Tamsulosin HCl (Flomax) 0.4 mg PO DAILY [facility] Last Admin: 12/19/17 09:37 Dose: 0.4 mg Vancomycin HCl (Vancocin 25 Mg/Ml (Oral Use)) 125 mg PO QID [facility] PRN Reason: Protocol Stop: 12/29/17 14:01 Last Admin: 12/19/17 17:35 Dose: 125 mg Vitamin B Complex/Vit C/Folic Acid (Nephro-Christel) 1 tab PO 0800 [facility] Last Admin: 12/19/17 08:23 Dose: 1 tab - Labs Labs: 12/19/17 07:00 12/19/17 07:00 PT 17.7 SECONDS (9.4-12.5) H 12/08/17 17:00 INR 1.54 (0.93-1.08) H 12/08/17 17:00 APTT 41.8 Seconds (25.1-36.5) H 12/08/17 17:00 Attending/Attestation - Attestation I have personally seen and examined this patient.: Yes I have fully participated in the care of the patient.: Yes I have reviewed all pertinent clinical information, including history, physical exam and plan: Yes Notes (Text): 12/19/17 18:53 72 year old male with h/o ESRD on HD, HTN, prostate CA, HIV on HAART, OM, gout, pyeloneprhitis, PAD with persistent abdominal pain, found recently to have enteritis/colitis. Recommend abx per ID. Continue PPI. Consider repeat CT if no improvement. C diff and infectious work up negative thus far. Eventually would recommend colonoscopy when medically improved.
[2017-12-19] MEDS: Bismuth Subsalicylate 262 mg/15 ml Sus (240 ml) PO PRN (14:08)
--- NOTE | 2017-12-19 14:23 | PN ---
DATE: 12/19/2017 SUBJECTIVE: I saw him sitting in bed eating his breakfast. He is doing well. His stomach still hurts him a little bit, he when GI saw him. He is still on Merrem IV, a change of catheter. He is comfortable with getting dialysis. He is alert and comfortable. He is being seen by Infectious Disease, Podiatry, Renal, GI. OBJECTIVE: VITAL SIGNS: He has a 98.5 temperature, 103 pulse, 123/71 blood pressure, 20 respiratory rate, 98% O2 saturation on room air. HEENT: His head is atraumatic, normocephalic. HEART: Regular rate. LUNGS: Clear to auscultation. ABDOMEN: Soft, nontender. Positive bowel sounds. EXTREMITIES: He has a right AKA, but the left foot is okay. DATA: He has a 15.2 white count, it went up; 8.7 hemoglobin; 27.3 hematocrit with a 534 platelets. He has 139 sodium, potassium 3.7, BUN 16, creatinine 3.2, GFR 19. Sugar is 74, calcium is 7.7. Total bilirubin is 0.3, AST is 35, ALT is 24, alkaline phosphatase 105, total protein 6.4. I am concerned about the white count rising. We will continue with the aggressive treatment and care. He has got a few more days of IV antibiotics as per Infectious Disease. He has no hydronephrosis on ultrasound and hopefully, will improve. We will check his labs tomorrow. I am trying to get him out of bed to chair. Physical therapy. Parag Brownlee DO MTDAnna
--- NOTE | 2017-12-19 16:02 | CP.PCM.PN ---
Subjective - Date & Time of Evaluation Date of Evaluation: 12/19/17 Time of Evaluation: 12:50 - Subjective Subjective: Having loose bowel movements, no abdominal pain, no nausea or vomiting, no fevers. Objective - Vital Signs/Intake and Output Vital Signs (last 24 hours): Temp Pulse Resp BP Pulse Ox 98.5 F 62 20 123/71 98 12/19/17 08:17 12/19/17 09:44 12/19/17 08:17 12/19/17 09:44 12/19/17 08:17 Intake and Output: 12/19/17 12/19/17 06:59 18:59 Intake Total 1420 Balance 1420 - Medications Medications: Current Medications Abacavir Sulfate (Ziagen) 300 mg PO DAILY [facility] PRN Reason: Protocol Last Admin: 12/19/17 09:37 Dose: 300 mg Acetaminophen (Tylenol 325mg Tab) 650 mg PO Q4H PRN PRN Reason: Fever >100.4 F Last Admin: 12/14/17 12:08 Dose: 650 mg Allopurinol (Zyloprim) 100 mg PO DAILY [facility] Last Admin: 12/19/17 09:37 Dose: 100 mg Bismuth Subsalicylate (Pepto-Bismol) 262 mg PO Q6H PRN PRN Reason: Diarrhea Last Admin: 12/17/17 13:15 Dose: 262 mg Calcium/Vitamin D (Oscal-D 250 Mg-125 Units Tab) 1 tab PO DAILY [facility] Last Admin: 12/19/17 09:40 Dose: 1 tab Cholecalciferol (Vitamin D) 1,000 intlu PO DAILY [facility] Last Admin: 12/19/17 09:37 Dose: 1,000 intlu Dextrose (Dextrose 50% Inj) 50 ml IVP PRN PRN PRN Reason: Low blood sugar Last Admin: 12/11/17 17:12 Dose: 50 ml Heparin Sodium (Porcine) (Heparin) 1,700 units ICV TUTHSA [facility] Last Admin: 12/15/17 17:08 Dose: Not Given Meropenem 500 mg/ Sodium (Chloride) 50 mls @ 100 mls/hr IVPB Q24H [facility] PRN Reason: Protocol Stop: 12/26/17 11:31 Insulin Human Regular (Humulin R Med) 0 units SC ACHS [facility] PRN Reason: Protocol Last Admin: 12/19/17 07:49 Dose: Not Given Metoprolol Succinate (Toprol Xl) 25 mg PO DAILY [facility] Last Admin: 12/19/17 09:37 Dose: 25 mg Mupirocin (Bactroban Ointment) 0 gm TOP BID [facility] Last Admin: 12/19/17 09:40 Dose: 1 applic Nifedipine (Procardia Xl) 60 mg PO DAILY [facility] Last Admin: 12/19/17 09:44 Dose: 60 mg Dolutegravir Sodium [Tivicay] 50 Mg ( Home Med) 50 mg PO DAILY [facility] Last Admin: 12/19/17 09:36 Dose: 50 mg Lamivudine [Epivir Hbv] 100 Mg ( Home Med) 100 mg PO DAILY [facility] Last Admin: 12/19/17 09:36 Dose: 100 mg Pantoprazole Sodium (Protonix Ec Tab) 40 mg PO ACB [facility] Last Admin: 12/19/17 08:23 Dose: 40 mg Petrolatum (Desitin Maximum Strength Topical 40% Oint) 0 gm TOP Q4H PRN PRN Reason: Rash Last Admin: 12/19/17 09:40 Dose: 1 applic Tamsulosin HCl (Flomax) 0.4 mg PO DAILY [facility] Last Admin: 12/19/17 09:37 Dose: 0.4 mg Vancomycin HCl (Vancocin 25 Mg/Ml (Oral Use)) 125 mg PO QID [facility] PRN Reason: Protocol Stop: 12/29/17 14:01 Vitamin B Complex/Vit C/Folic Acid (Nephro-Christel) 1 tab PO 0800 [facility] Last Admin: 12/19/17 08:23 Dose: 1 tab - Labs Labs: 12/19/17 07:00 12/19/17 07:00 PT 17.7 SECONDS (9.4-12.5) H 12/08/17 17:00 INR 1.54 (0.93-1.08) H 12/08/17 17:00 APTT 41.8 Seconds (25.1-36.5) H 12/08/17 17:00 - Constitutional Appears: Chronically Ill - Head Exam Head Exam: NORMAL INSPECTION - ENT Exam ENT Exam: Mucous Membranes Moist - Neck Exam Neck Exam: absent: Meningismus - Respiratory Exam Respiratory Exam: Decreased Breath Sounds Additional comments: left anterior chest wall HD catheter site clean and intact - Cardiovascular Exam Cardiovascular Exam: +S1, +S2 - GI/Abdominal Exam GI & Abdominal Exam: Soft. absent: Tenderness Assessment and Plan - Assessment and Plan (Free Text) Plan: Assessment sepsis due to ESBL E. coli bacteremia, consider HD catheter associated bacteremia s/P removal of right sided catheter and placement of new left anterior chest wall catheter Diarrhea, R/O C. diff. colitis history of small bowel obstruction S/P ex-lap, adhesiolysis, repair of umbilical hernia and appendectomy S/P UTI severe PAD S/P angioplasty of the left tibial artery S/P right AKA UTI with MRSA and Strep viridans systemic viral illness with Influenza history of left foot 3rd digit chronic osteomyelitis S/P amputation and debridement right sided nephrolithiasis history of severe sepsis with acute on chronic renal failure probably due to pyelonephritis with E. coli bacteremia history of C. diff. associated diarrhea Charcot foot, left history of left 2nd toe dry gangrene Chronic renal failure on hemodialysis HTN prostate CA HIV (patient goes to the [place] with last CD4 count here at [facility] [place] 03/2016 349 and virus load < 1.3 log) history of osteomyelitis of left first toe S/P amputation (2015) gout history of left foot ulcers Plan continue Merrem to complete at least 10-14 days of therapy (day 6 from change of catheter) follow up stool for C. diff. - will empirically start PO Vancomycin continue antiretroviral therapy (lamivudine, abacavir on formulary but dolutegravir should be taken by patient from his home supply) overall prognosis is poor
[2017-12-20] MEDS: Multivitamin Vitamin B Complex (Nephro-Vite) Tab PO SCH (07:58)
[2017-12-20] MEDS: Pantoprazole 40 mg EC Tab PO SCH (07:58)
[2017-12-20] MEDS: Insulin Reg-MEDIUM-Coverage SC SCH ×3 (08:24→19:00)
--- NOTE | 2017-12-20 09:28 | CP.PCM.PN ---
<Janice Martinez - Last Filed: 12/20/17 09:28> Subjective - Date & Time of Evaluation Date of Evaluation: 12/20/17 Time of Evaluation: 09:24 - Subjective Subjective: Podiatry Progress note: Dr. Caldwell/Dr. Dunn 72 year old male patient seen and evaluated at bedside for left posterior heel ulceration. Patient is AAOx3 and is in NAD. Denies having any pain to the left posterior heel today. States he did not sleep very well last night. Denies F/N/V /C/SOB/CP/headache. Objective - Vital Signs/Intake and Output Vital Signs (last 24 hours): Temp Pulse Resp BP Pulse Ox 98.5 F 97 H 17 123/61 98 12/20/17 06:00 12/20/17 06:00 12/20/17 06:00 12/20/17 06:00 12/20/17 06:00 Intake and Output: 12/20/17 12/20/17 06:59 18:59 Intake Total 420 2 Balance 420 2 - Medications Medications: Current Medications Abacavir Sulfate (Ziagen) 300 mg PO DAILY [facility] PRN Reason: Protocol Last Admin: 12/19/17 09:37 Dose: 300 mg Acetaminophen (Tylenol 325mg Tab) 650 mg PO Q4H PRN PRN Reason: Fever >100.4 F Last Admin: 12/14/17 12:08 Dose: 650 mg Allopurinol (Zyloprim) 100 mg PO DAILY [facility] Last Admin: 12/19/17 09:37 Dose: 100 mg Bismuth Subsalicylate (Pepto-Bismol) 262 mg PO Q6H PRN PRN Reason: Diarrhea Last Admin: 12/19/17 14:08 Dose: 262 mg Calcium/Vitamin D (Oscal-D 250 Mg-125 Units Tab) 1 tab PO DAILY [facility] Last Admin: 12/19/17 09:40 Dose: 1 tab Cholecalciferol (Vitamin D) 1,000 intlu PO DAILY [facility] Last Admin: 12/19/17 09:37 Dose: 1,000 intlu Dextrose (Dextrose 50% Inj) 50 ml IVP PRN PRN PRN Reason: Low blood sugar Last Admin: 12/11/17 17:12 Dose: 50 ml Heparin Sodium (Porcine) (Heparin) 1,700 units ICV TUTHSA [facility] Last Admin: 12/15/17 17:08 Dose: Not Given Meropenem 500 mg/ Sodium (Chloride) 50 mls @ 100 mls/hr IVPB Q24H [facility] PRN Reason: Protocol Stop: 12/26/17 11:31 Last Admin: 12/19/17 13:09 Dose: 100 mls/hr Insulin Human Regular (Humulin R Med) 0 units SC ACHS [facility] PRN Reason: Protocol Last Admin: 12/20/17 08:24 Dose: Not Given Metoprolol Succinate (Toprol Xl) 25 mg PO DAILY [facility] Last Admin: 12/19/17 09:37 Dose: 25 mg Mupirocin (Bactroban Ointment) 0 gm TOP BID [facility] Last Admin: 12/19/17 17:36 Dose: 1 applic Nifedipine (Procardia Xl) 60 mg PO DAILY [facility] Last Admin: 12/19/17 09:44 Dose: 60 mg Dolutegravir Sodium [Tivicay] 50 Mg ( Home Med) 50 mg PO DAILY [facility] Last Admin: 12/19/17 09:36 Dose: 50 mg Lamivudine [Epivir Hbv] 100 Mg ( Home Med) 100 mg PO DAILY [facility] Last Admin: 12/19/17 09:36 Dose: 100 mg Pantoprazole Sodium (Protonix Ec Tab) 40 mg PO ACB [facility] Last Admin: 12/20/17 07:58 Dose: 40 mg Petrolatum (Desitin Maximum Strength Topical 40% Oint) 0 gm TOP Q4H PRN PRN Reason: Rash Last Admin: 12/19/17 09:40 Dose: 1 applic Tamsulosin HCl (Flomax) 0.4 mg PO DAILY [facility] Last Admin: 12/19/17 09:37 Dose: 0.4 mg Vancomycin HCl (Vancocin 25 Mg/Ml (Oral Use)) 125 mg PO QID [facility] PRN Reason: Protocol Stop: 12/29/17 14:01 Last Admin: 12/19/17 22:42 Dose: 125 mg Vitamin B Complex/Vit C/Folic Acid (Nephro-Christel) 1 tab PO 0800 [facility] Last Admin: 12/20/17 07:58 Dose: 1 tab - Labs Labs: 12/19/17 07:00 12/19/17 07:00 PT 17.7 SECONDS (9.4-12.5) H 12/08/17 17:00 INR 1.54 (0.93-1.08) H 12/08/17 17:00 APTT 41.8 Seconds (25.1-36.5) H 12/08/17 17:00 - Constitutional Appears: Well, Non-toxic, No Acute Distress - Extremities Exam Additional comments: Right AKA LLE focused exam: VASC: DP/PT pulses palpable 1/4. Temperature gradient warm to cool. CFT < 3 sec to all digits. No pedal edema noted DERM: Stage 2 open pressure ulceration noted to heel with fibrotic wound base. Mild serous drainage noted on bandage. No ecchymosis, skin and soft tissue intact, no clinical suspicion of active infection NEURO: Protective sensation grossly diminished ORTHO: mild tenderness to palpation of L plantar heel. 1st-3rd digit amputations noted to L foot. Charcot midfoot changes - Neurological Exam Neurological Exam: Alert, Awake, Oriented x3 - Psychiatric Exam Psychiatric exam: Normal Affect, Normal Mood Assessment and Plan - Assessment and Plan (Free Text) Assessment: 72 year old male patient with left heel stage 2 pressure ulceration secondary to bed bound status Plan: Patient seen and evaluated Discussed in detail with attending Dr. Caldwell Labs and vitals reviewed; WBC 15.2 Wound to posterior L heel cleansed with saline and Optifoam bandage applied Multipodus boot to be worn at all times in bed Will follow patient while in-house <Suri Caldwell - Last Filed: 12/23/17 17:47> Objective - Vital Signs/Intake and Output Vital Signs (last 24 hours): Temp Pulse Resp BP Pulse Ox 97.9 F 94 H 18 136/74 98 12/21/17 07:30 12/21/17 09:18 12/21/17 07:30 12/21/17 09:18 12/21/17 07:30 - Labs Labs: 12/20/17 10:00 12/20/17 10:00 PT 17.7 SECONDS (9.4-12.5) H 12/08/17 17:00 INR 1.54 (0.93-1.08) H 12/08/17 17:00 APTT 41.8 Seconds (25.1-36.5) H 12/08/17 17:00 Attending/Attestation - Attestation I have personally seen and examined this patient.: Yes I have fully participated in the care of the patient.: Yes I have reviewed all pertinent clinical information, including history, physical exam and plan: Yes
--- NOTE | 2017-12-20 10:24 | CP.PCM.PN ---
<ErnestoIsabelle - Last Filed: 12/20/17 11:06> Subjective - Date & Time of Evaluation Date of Evaluation: 12/20/17 Time of Evaluation: 10:22 - Subjective Subjective: Gastroenterology Fellow/PGY5 Progress Note Patient notes mild abdominal discomfort. Tolerating diet. No bowel movement yesterday or today by time of evaluation. Nursing notes no acute events overnight. Objective - Vital Signs/Intake and Output Vital Signs (last 24 hours): Temp Pulse Resp BP Pulse Ox 98.5 F 97 H 17 123/61 98 12/20/17 06:00 12/20/17 06:00 12/20/17 06:00 12/20/17 06:00 12/20/17 06:00 Intake and Output: 12/20/17 12/20/17 06:59 18:59 Intake Total 420 2 Balance 420 2 - Medications Medications: Current Medications Abacavir Sulfate (Ziagen) 300 mg PO DAILY [facility] PRN Reason: Protocol Last Admin: 12/19/17 09:37 Dose: 300 mg Acetaminophen (Tylenol 325mg Tab) 650 mg PO Q4H PRN PRN Reason: Fever >100.4 F Last Admin: 12/14/17 12:08 Dose: 650 mg Allopurinol (Zyloprim) 100 mg PO DAILY [facility] Last Admin: 12/19/17 09:37 Dose: 100 mg Bismuth Subsalicylate (Pepto-Bismol) 262 mg PO Q6H PRN PRN Reason: Diarrhea Last Admin: 12/19/17 14:08 Dose: 262 mg Calcium/Vitamin D (Oscal-D 250 Mg-125 Units Tab) 1 tab PO DAILY [facility] Last Admin: 12/19/17 09:40 Dose: 1 tab Cholecalciferol (Vitamin D) 1,000 intlu PO DAILY [facility] Last Admin: 12/19/17 09:37 Dose: 1,000 intlu Dextrose (Dextrose 50% Inj) 50 ml IVP PRN PRN PRN Reason: Low blood sugar Last Admin: 12/11/17 17:12 Dose: 50 ml Heparin Sodium (Porcine) (Heparin) 1,700 units ICV TUTHSA [facility] Last Admin: 12/15/17 17:08 Dose: Not Given Meropenem 500 mg/ Sodium (Chloride) 50 mls @ 100 mls/hr IVPB Q24H [facility] PRN Reason: Protocol Stop: 12/26/17 11:31 Last Admin: 12/19/17 13:09 Dose: 100 mls/hr Insulin Human Regular (Humulin R Med) 0 units SC ACHS [facility] PRN Reason: Protocol Last Admin: 12/20/17 08:24 Dose: Not Given Metoprolol Succinate (Toprol Xl) 25 mg PO DAILY [facility] Last Admin: 12/19/17 09:37 Dose: 25 mg Mupirocin (Bactroban Ointment) 0 gm TOP BID [facility] Last Admin: 12/19/17 17:36 Dose: 1 applic Nifedipine (Procardia Xl) 60 mg PO DAILY [facility] Last Admin: 12/19/17 09:44 Dose: 60 mg Dolutegravir Sodium [Tivicay] 50 Mg ( Home Med) 50 mg PO DAILY [facility] Last Admin: 12/19/17 09:36 Dose: 50 mg Lamivudine [Epivir Hbv] 100 Mg ( Home Med) 100 mg PO DAILY [facility] Last Admin: 12/19/17 09:36 Dose: 100 mg Pantoprazole Sodium (Protonix Ec Tab) 40 mg PO ACB [facility] Last Admin: 12/20/17 07:58 Dose: 40 mg Petrolatum (Desitin Maximum Strength Topical 40% Oint) 0 gm TOP Q4H PRN PRN Reason: Rash Last Admin: 12/19/17 09:40 Dose: 1 applic Tamsulosin HCl (Flomax) 0.4 mg PO DAILY [facility] Last Admin: 12/19/17 09:37 Dose: 0.4 mg Vancomycin HCl (Vancocin 25 Mg/Ml (Oral Use)) 125 mg PO QID [facility] PRN Reason: Protocol Stop: 12/29/17 14:01 Last Admin: 12/19/17 22:42 Dose: 125 mg Vitamin B Complex/Vit C/Folic Acid (Nephro-Christel) 1 tab PO 0800 [facility] Last Admin: 12/20/17 07:58 Dose: 1 tab - Labs Labs: 12/19/17 07:00 12/19/17 07:00 PT 17.7 SECONDS (9.4-12.5) H 12/08/17 17:00 INR 1.54 (0.93-1.08) H 12/08/17 17:00 APTT 41.8 Seconds (25.1-36.5) H 12/08/17 17:00 - Constitutional Appears: Non-toxic, No Acute Distress - Head Exam Head Exam: ATRAUMATIC, NORMOCEPHALIC - Eye Exam Eye Exam: EOMI, PERRL. absent: Scleral icterus Pupil Exam: PERRL. absent: Miosis, Mydriatic - ENT Exam ENT Exam: Mucous Membranes Moist, Normal Oropharynx - Neck Exam Neck Exam: Full ROM, Normal Inspection - Respiratory Exam Respiratory Exam: Clear to Ausculation Bilateral. absent: Rales, Rhonchi, Wheezes - Cardiovascular Exam Cardiovascular Exam: RRR, +S1, +S2. absent: Gallop, Rubs - GI/Abdominal Exam GI & Abdominal Exam: Soft, Normal Bowel Sounds. absent: Distended, Firm, Guarding, Rigid, Tenderness, Organomegaly, Rebound - Extremities Exam Additional comments: Right AKA - Neurological Exam Neurological Exam: Alert, Awake - Psychiatric Exam Psychiatric exam: Normal Affect, Normal Mood - Skin Skin Exam: Dry, Intact, Normal Color, Warm Assessment and Plan - Assessment and Plan (Free Text) Assessment: 72yo man with PMH of ESRD on HD, Prostate cancer, HIV on HAART, HTN, Gout, severe PAD complicated by Right AKA and left foot ulcers with chronic osteomyelitis s/p multiple left digit amputations and left tibial artery angioplasty, pyelonephritis with ESBL E. coli bacteremia, and SBO s/p appendectomy and adhesion lysis 11/11/17 presenting with fever and tachycardia from dialysis center. Active treatment of ESBL E. coli bacteremia, isolated right-sided ischemic colitis, and diarrhea with history of Cdifficile. Plan: -ID managing- on meropenem for ESBL and vancomyicn PO for Cdiff empiric coverage -no bowel movement last 36 hours -improving abdominal pain -no indication for repeat cross-sectional imaging at present evaluation -CT angio 12/12/17 with celiacomesenteric trunk, no stenosis -will benefit from elective outpatient colonoscopy once medically optimized <Finesse Leonardo - Last Filed: 12/20/17 12:51> Objective - Vital Signs/Intake and Output Vital Signs (last 24 hours): Temp Pulse Resp BP Pulse Ox 98.5 F 97 H 17 123/61 98 12/20/17 06:00 12/20/17 06:00 12/20/17 06:00 12/20/17 06:00 12/20/17 06:00 Intake and Output: 05/03/18 05/03/18 06:59 18:59 Intake Total 420 2 Balance 420 2 - Medications Medications: Current Medications Abacavir Sulfate (Ziagen) 300 mg PO DAILY [facility] PRN Reason: Protocol Last Admin: 12/19/17 09:37 Dose: 300 mg Acetaminophen (Tylenol 325mg Tab) 650 mg PO Q4H PRN PRN Reason: Fever >100.4 F Last Admin: 12/14/17 12:08 Dose: 650 mg Allopurinol (Zyloprim) 100 mg PO DAILY [facility] Last Admin: 12/19/17 09:37 Dose: 100 mg Bismuth Subsalicylate (Pepto-Bismol) 262 mg PO Q6H PRN PRN Reason: Diarrhea Last Admin: 12/19/17 14:08 Dose: 262 mg Calcium/Vitamin D (Oscal-D 250 Mg-125 Units Tab) 1 tab PO DAILY [facility] Last Admin: 12/19/17 09:40 Dose: 1 tab Cholecalciferol (Vitamin D) 1,000 intlu PO DAILY [facility] Last Admin: 12/19/17 09:37 Dose: 1,000 intlu Dextrose (Dextrose 50% Inj) 50 ml IVP PRN PRN PRN Reason: Low blood sugar Last Admin: 12/11/17 17:12 Dose: 50 ml Heparin Sodium (Porcine) (Heparin) 1,700 units ICV TUTHSA [facility] Last Admin: 12/15/17 17:08 Dose: Not Given Meropenem 500 mg/ Sodium (Chloride) 50 mls @ 100 mls/hr IVPB Q24H [facility] PRN Reason: Protocol Stop: 12/26/17 11:31 Last Admin: 12/19/17 13:09 Dose: 100 mls/hr Vancomycin HCl (Vancomycin 1gm) 1 gm in 250 mls @ 167 mls/hr IVPB ONCE ONE PRN Reason: Protocol Stop: 12/20/17 16:29 Insulin Human Regular (Humulin R Med) 0 units SC ACHS [facility] PRN Reason: Protocol Last Admin: 12/20/17 08:24 Dose: Not Given Metoprolol Succinate (Toprol Xl) 25 mg PO DAILY [facility] Last Admin: 12/19/17 09:37 Dose: 25 mg Mupirocin (Bactroban Ointment) 0 gm TOP BID [facility] Last Admin: 12/19/17 17:36 Dose: 1 applic Nifedipine (Procardia Xl) 60 mg PO DAILY [facility] Last Admin: 12/19/17 09:44 Dose: 60 mg Dolutegravir Sodium [Tivicay] 50 Mg ( Home Med) 50 mg PO DAILY [facility] Last Admin: 12/19/17 09:36 Dose: 50 mg Lamivudine [Epivir Hbv] 100 Mg ( Home Med) 100 mg PO DAILY [facility] Last Admin: 12/19/17 09:36 Dose: 100 mg Pantoprazole Sodium (Protonix Ec Tab) 40 mg PO ACB [facility] Last Admin: 12/20/17 07:58 Dose: 40 mg Petrolatum (Desitin Maximum Strength Topical 40% Oint) 0 gm TOP Q4H PRN PRN Reason: Rash Last Admin: 12/19/17 09:40 Dose: 1 applic Tamsulosin HCl (Flomax) 0.4 mg PO DAILY [facility] Last Admin: 12/19/17 09:37 Dose: 0.4 mg Vancomycin HCl (Vancocin 25 Mg/Ml (Oral Use)) 125 mg PO QID [facility] PRN Reason: Protocol Stop: 12/29/17 14:01 Last Admin: 12/19/17 22:42 Dose: 125 mg Vitamin B Complex/Vit C/Folic Acid (Nephro-Christel) 1 tab PO 0800 [facility] Last Admin: 12/20/17 07:58 Dose: 1 tab - Labs Labs: 12/19/17 07:00 12/19/17 07:00 PT 17.7 SECONDS (9.4-12.5) H 12/08/17 17:00 INR 1.54 (0.93-1.08) H 12/08/17 17:00 APTT 41.8 Seconds (25.1-36.5) H 12/08/17 17:00 Attending/Attestation - Attestation I have personally seen and examined this patient.: Yes I have fully participated in the care of the patient.: Yes I have reviewed all pertinent clinical information, including history, physical exam and plan: Yes Notes (Text): 12/20/17 12:51 72 year old male with h/o HIV, ESRD, PAD with enteritis/colitis. CTA negative for mesenteric occlusive disease. On abx. Improving clinically.
[2017-12-20 13:57] LABS: HEMOGLOBIN 7.8 g/dL (14.0-18.0); MEAN CORPUSCULAR HEMOGLOBIN 28.6 pg (25.0-35.0); MEAN CORPUSCULAR HGB CONC 32.1 g/dl (31.0-37.0); MEAN PLATELET VOLUME 9.4 fl (7.0-11.0); RBC 2.73 10^6/uL (3.5-6.1); RED CELL DISTRIBUTION WIDTH 17.1 % (11.5-14.5); WHITE BLOOD COUNT 11.3 10^3/ul (4.5-11.0)
[2017-12-20 14:09] LABS: ALB/GLOB RATIO 0.6 (1.1-1.8); ALBUMIN 2.3 g/dL (3.0-4.8); CALCIUM 7.8 mg/dL (8.4-10.5)
--- NOTE | 2017-12-20 14:21 | PN ---
DATE: 12/20/2017 SUBJECTIVE: I saw him resting comfortably in bed. He actually had no complaints this morning. and he slept well. He is on Bactroban cream, Desitin, dextrose, Flomax, heparin, insulin, Merrem IV, Epivir, Nephro-Christel, Os-Terrell, Pepto-Bismol, Protonix, Procardia, Toprol, Tylenol, vancomycin, vitamin D, Ziagen, Zyloprim, Tivicay. OBJECTIVE: VITAL SIGNS: He has a 98.5 temperature, 97 pulse, 123/61 blood pressure, 17 respiratory rate, % O2 saturation on room air. HEENT: Head is atraumatic, normocephalic. HEART: Regular rate. LUNGS: Decreased breath sounds, but clear. ABDOMEN: Soft. He has a right AKA, left leg with no edema. He is being seen by Infectious Disease, GI, Renal, Podiatry, waiting to finish with the antibiotics. He is on Merrem to complete 14 days, he is on day 6. We will continue aggressive treatment and care as per Infectious Disease. We will check his labs. Parag Brownlee DO LORENZA
--- NOTE | 2017-12-20 14:24 | CP.PCM.PN ---
Subjective - Date & Time of Evaluation Date of Evaluation: 12/20/17 Time of Evaluation: 14:23 - Subjective Subjective: Nephrology Consultation Note: Assessment: Stable ESBL E.Coli SEPSIS (suspect permacath a source per ID) Enteritis and Colitis Hypokalemia, hypoglycemia, hypophosphatemia recent High grade SBO s/p surgery, appendectomy: improved hx of prostate CA Hypertensive Chronic Kidney Disease (I12.9) ESRD on HD via permacath (TTS) Anemia (D64.9), HTN (I12.9) HIV on HAART, PVD s/p angioplasty s/p Rt AKA Plan plan for HD today as per TTS schedule. nephrovite 1 tab/day. aransep 100 mcg weekly for anemia 12/18/17. PRBC as needed . last Hb 8.7. 1 unit PRBC 12/18/17 hold phos binders as pt with limited oral intake and low serum Phos Hypertension control with meds as ordered. resume nifedipine supplement K as needed d.c IVF as oral intake better. Liberalize diet, had d/w RN to change to regular diet Dose meds/antibiotics for ESRD status. Avoid fleets enema/magnesium based laxatives. Further work up/management as per primary team. Thanks for allowing me to participate in care of your patient. Will follow with you. Please call if any Qs. d/w team Dr Yandel Arechiga Office: [phone] HPI: Pt is a 72 y/o M with hx of HIV on HAART, PVD s/p angioplasty, Rt AKA, hypertension (10-15 years), ESRD on HD (via permacath) TTS @ [facility] [place], left foot toe amputations, prostate CA presented with pain abdomen and bacteremia renal consult for ESRD management pt doesn't feel well. says everything is bothering him as lower ext pain, groin pain. says alcala catheter was removed 2 weeks ago ROS: denies CP/SOB. all other neg except as in HPI. c/o abdomen pain. feels same with pain in heels, ankle. Procedures: s/p CT guided aspiration 11/19/17, underwent CT angiogram abdomen . s/p permacath change 12/14/2017 oral intake better as per nursing staff Physical Examination: seen on HD General Appearance: in no acute respiratory distress, facial muscles wasted, ill appearing Vitals reviewed and noted as below Head; Atraumatic, normocephalic ENT: no ulcers no thrush. Tongue is midline dry. Oropharynx: no rash or ulcers. EYES: Pupils are equal, round and reactive to light accommodation. Eye muscles and extraocular movement intact. Sclera is anicteric. Neck; supple no lymphadenopathy, no thyromegaly or bruit Lungs: Normal respiratory rate/effort. Breath sounds bilateral clear Heart: Normal rate. s1s2 normal. No rub or gallop. Extremities: no edema. No varicose veins. s/p Rt AKA Neurological: Patient is alert oriented x 3 follow commands,. no focal deficit Skin: Warm and dry. Normal turgor. Palpitation: Normal elasticity for age. Abdomen: Abdomen is soft. much less tender in lower abdomen area without guarding. Psych: limited insight. flat affect MSK: Digits and nails normal, left foot toe amputations in past. Rt AKA. : kidney not palpable. Access: permacath and maturing left AVF Labs/imaging/EKG reviewed. Past medical history, past surgical history, family history, social history, allergy reviewed and noted as below Family hx: sister was on dialysis. Rest non-contributory Objective - Vital Signs/Intake and Output Vital Signs (last 24 hours): Temp Pulse Resp BP Pulse Ox 98.5 F 97 H 17 123/61 98 12/20/17 06:00 12/20/17 06:00 12/20/17 06:00 12/20/17 06:00 12/20/17 06:00 Intake and Output: 12/20/17 12/20/17 06:59 18:59 Intake Total 420 2 Balance 420 2 - Medications Medications: Current Medications Abacavir Sulfate (Ziagen) 300 mg PO DAILY [facility] PRN Reason: Protocol Last Admin: 12/19/17 09:37 Dose: 300 mg Acetaminophen (Tylenol 325mg Tab) 650 mg PO Q4H PRN PRN Reason: Fever >100.4 F Last Admin: 12/14/17 12:08 Dose: 650 mg Allopurinol (Zyloprim) 100 mg PO DAILY [facility] Last Admin: 12/19/17 09:37 Dose: 100 mg Bismuth Subsalicylate (Pepto-Bismol) 262 mg PO Q6H PRN PRN Reason: Diarrhea Last Admin: 12/19/17 14:08 Dose: 262 mg Calcium/Vitamin D (Oscal-D 250 Mg-125 Units Tab) 1 tab PO DAILY [facility] Last Admin: 12/19/17 09:40 Dose: 1 tab Cholecalciferol (Vitamin D) 1,000 intlu PO DAILY [facility] Last Admin: 12/19/17 09:37 Dose: 1,000 intlu Dextrose (Dextrose 50% Inj) 50 ml IVP PRN PRN PRN Reason: Low blood sugar Last Admin: 12/11/17 17:12 Dose: 50 ml Heparin Sodium (Porcine) (Heparin) 1,700 units ICV TUTA [facility] Last Admin: 12/15/17 17:08 Dose: Not Given Meropenem 500 mg/ Sodium (Chloride) 50 mls @ 100 mls/hr IVPB Q24H [facility] PRN Reason: Protocol Stop: 12/26/17 11:31 Last Admin: 12/19/17 13:09 Dose: 100 mls/hr Vancomycin HCl (Vancomycin 1gm) 1 gm in 250 mls @ 167 mls/hr IVPB ONCE ONE PRN Reason: Protocol Stop: 12/20/17 16:29 Insulin Human Regular (Humulin R Med) 0 units SC ACHS [facility] PRN Reason: Protocol Last Admin: 12/20/17 08:24 Dose: Not Given Metoprolol Succinate (Toprol Xl) 25 mg PO DAILY [facility] Last Admin: 12/19/17 09:37 Dose: 25 mg Mupirocin (Bactroban Ointment) 0 gm TOP BID [facility] Last Admin: 12/19/17 17:36 Dose: 1 applic Nifedipine (Procardia Xl) 60 mg PO DAILY [facility] Last Admin: 12/19/17 09:44 Dose: 60 mg Dolutegravir Sodium [Tivicay] 50 Mg ( Home Med) 50 mg PO DAILY [facility] Last Admin: 12/19/17 09:36 Dose: 50 mg Lamivudine [Epivir Hbv] 100 Mg ( Home Med) 100 mg PO DAILY [facility] Last Admin: 12/19/17 09:36 Dose: 100 mg Pantoprazole Sodium (Protonix Ec Tab) 40 mg PO ACB [facility] Last Admin: 12/20/17 07:58 Dose: 40 mg Petrolatum (Desitin Maximum Strength Topical 40% Oint) 0 gm TOP Q4H PRN PRN Reason: Rash Last Admin: 12/19/17 09:40 Dose: 1 applic Tamsulosin HCl (Flomax) 0.4 mg PO DAILY [facility] Last Admin: 12/19/17 09:37 Dose: 0.4 mg Vancomycin HCl (Vancocin 25 Mg/Ml (Oral Use)) 125 mg PO QID [facility] PRN Reason: Protocol Stop: 12/29/17 14:01 Last Admin: 12/19/17 22:42 Dose: 125 mg Vitamin B Complex/Vit C/Folic Acid (Nephro-Christel) 1 tab PO 0800 [facility] Last Admin: 12/20/17 07:58 Dose: 1 tab - Labs Labs: 12/20/17 10:00 12/20/17 10:00 PT 17.7 SECONDS (9.4-12.5) H 12/08/17 17:00 INR 1.54 (0.93-1.08) H 12/08/17 17:00 APTT 41.8 Seconds (25.1-36.5) H 12/08/17 17:00
[2017-12-20] MEDS: Vancomycin 25 MG/ML PO SCH ×4 (15:32→21:51)
--- NOTE | 2017-12-20 17:18 | RAD ---
HISTORY: COMPARISON: 12/08/2017. TECHNIQUE: Chest PA and lateral FINDINGS: LINES AND TUBES: The left-sided dual lumen central venous catheter terminates in the right atrium. LUNG AND PLEURA: The lungs are well inflated and clear. No pleural effusion or pneumothorax. HEART AND MEDIASTINUM: The heart is not enlarged. The hilar and mediastinal contours are within normal limits. SKELETAL STRUCTURES: The bony structures are within normal limits for the patient's age. VISUALIZED UPPER ABDOMEN: Normal. OTHER FINDINGS: None. IMPRESSION: No active pulmonary disease.
[2017-12-20] MEDS: Meropenem 500 MG in Sodium Chloride 0.9% 50 ML IVPB SCH ×2 (17:58→19:01)
[2017-12-20] MEDS: Vancomycin 1gm in NS 250ml 1 GM/250 ML BAG IVPB ONE ×2 (17:59→19:56)
[2017-12-20] MEDS: NIFEdipine 60 mg ER Tab PO SCH (18:05)
[2017-12-20] MEDS: Calcium-Vit D 250 mg-125 Units Tab UD PO SCH (18:05)
[2017-12-20] MEDS: Cholecalciferol 1,000 INTLU TAB PO SCH (18:05)
[2017-12-20] MEDS: LAMIVUDINE 100 MG PO SCH (18:06)
[2017-12-20] MEDS: Dolutegravir Sodium [Tivicay] 50 mg (HOME MED) PO SCH (18:06)
[2017-12-20] MEDS: Metoprolol Succinate 25 mg XL Tab PO SCH (18:07)
[2017-12-20] MEDS ORDERED: Vancomycin 1gm in NS 250ml 1 GM/250 ML BAG IVPB ONE (22:00)
[2017-12-20 22:28] VITALS: RESP 18
--- NOTE | 2017-12-21 03:39 | PN ---
DATE: 12/20/2017 SUBJECTIVE: The patient is in bed, in no acute distress, nontoxic, was seen earlier this morning. PHYSICAL EXAMINATION: VITAL SIGNS: Temperature is 98, blood pressure is 140/80, respiratory rate of 16. HEENT: Unremarkable. NECK: Supple. LUNGS: Have decreased breath sound. HEART: Normal S1, S2. ABDOMEN: Soft. LABORATORY EXAMINATION: Reveals a white count from yesterday is 15,000, repeat one is 11,000; hemoglobin of 7. Chemistries are noted and creatinine is 4.1. Procalcitonin is 1.64. Urinalysis is noted from the 12/13/2017 and serology for influenza is negative. Microbiology is noted. Review of orders reveals the patient to be on meropenem and dose of vancomycin also added today. Patient is on his HIV medication. Patient had a chest x-ray with the lungs being clear. ASSESSMENT AND PLAN: This is a 72-year-old male who was seen earlier this morning with sepsis with extended-spectrum beta-lactamase Escherichia coli bacteremia, hemodialysis catheter associated bacteremia status post removal of the right-sided catheter and placement of a new left chest wall catheter, diarrhea, rule out Clostridium difficile, we will check on the repeat cultures and CBC. Continue human immunodeficiency virus medications. Patient is on meropenem, day #7 from change of catheter. Case discussed with the nursing staff and the patient at length. Patient is also on p.o. vancomycin. Stool culture grew Salmonella/Shigella/Campylobacter and the stool Clostridium difficile from the 12/09/2017 is negative, awaiting for the repeat. We will follow with you. Cesar Flowers MD
[2017-12-21] MEDS: Insulin Reg-MEDIUM-Coverage SC SCH ×4 (04:45→17:18)
[2017-12-21] MEDS: Pantoprazole 40 mg EC Tab PO SCH (08:08)
[2017-12-21] MEDS: Multivitamin Vitamin B Complex (Nephro-Vite) Tab PO SCH (08:08)
[2017-12-21 08:58] VITALS: BP 136/74; PULSE 94; TEMP 97.9; O2SAT 98
[2017-12-21] MEDS: Dolutegravir Sodium [Tivicay] 50 mg (HOME MED) PO SCH (09:15)
[2017-12-21] MEDS: LAMIVUDINE 100 MG PO SCH (09:16)
[2017-12-21] MEDS: NIFEdipine 60 mg ER Tab PO SCH (09:17)
[2017-12-21] MEDS: Cholecalciferol 1,000 INTLU TAB PO SCH (09:17)
[2017-12-21] MEDS: Vancomycin 25 MG/ML PO SCH ×3 (09:18→17:29)
[2017-12-21] MEDS: Metoprolol Succinate 25 mg XL Tab PO SCH (09:18)
[2017-12-21] MEDS: Calcium-Vit D 250 mg-125 Units Tab UD PO SCH (09:23)
[2017-12-21] MEDS: Meropenem 500 MG in Sodium Chloride 0.9% 50 ML IVPB SCH ×2 (10:12→14:08)
--- NOTE | 2017-12-21 10:17 | CP.PCM.PN ---
<Isabelle Orozco - Last Filed: 12/21/17 10:20> Subjective - Date & Time of Evaluation Date of Evaluation: 12/21/17 Time of Evaluation: 10:17 - Subjective Subjective: Gastroenterology Fellow/PGY5 Progress Note Patient notes improving left lower abdominal pain. Tolerating diet. One soft bowel movement yesterday. Nursing notes no acute events overnight. Objective - Vital Signs/Intake and Output Vital Signs (last 24 hours): Temp Pulse Resp BP Pulse Ox 97.9 F 94 H 18 136/74 98 12/21/17 07:30 12/21/17 09:18 12/21/17 07:30 12/21/17 09:18 12/21/17 07:30 Intake and Output: 12/21/17 12/21/17 06:59 18:59 Intake Total 840 Balance 840 - Medications Medications: Current Medications Abacavir Sulfate (Ziagen) 300 mg PO DAILY [facility] PRN Reason: Protocol Last Admin: 12/21/17 09:19 Dose: 300 mg Acetaminophen (Tylenol 325mg Tab) 650 mg PO Q4H PRN PRN Reason: Fever >100.4 F Last Admin: 12/20/17 17:58 Dose: 650 mg Allopurinol (Zyloprim) [address] [facility] Last Admin: 12/21/17 09:19 Dose: 100 mg Bismuth Subsalicylate (Pepto-Bismol) 262 mg PO Q6H PRN PRN Reason: Diarrhea Last Admin: 12/19/17 14:08 Dose: 262 mg Calcium/Vitamin D (Oscal-D 250 Mg-125 Units Tab) [address] [facility] Last Admin: 12/21/17 09:23 Dose: 1 tab Cholecalciferol (Vitamin D) 1,[address] [facility] Last Admin: 12/21/17 09:17 Dose: 1,000 intlu Dextrose (Dextrose 50% Inj) 50 ml IVP PRN PRN PRN Reason: Low blood sugar Last Admin: 12/11/17 17:12 Dose: 50 ml Heparin Sodium (Porcine) (Heparin) 1,[address] [facility] Last Admin: 12/20/17 18:07 Dose: Not Given Meropenem 500 mg/ Sodium (Chloride) 50 mls @ 100 mls/hr IVPB Q24H [facility] PRN Reason: Protocol Stop: 12/26/17 11:31 Last Admin: 12/21/17 10:12 Dose: 100 mls/hr Insulin Human Regular (Humulin R Med) [address] [facility] PRN Reason: Protocol Last Admin: 12/21/17 08:05 Dose: Not Given Metoprolol Succinate (Toprol Xl) [address] [facility] Last Admin: 12/21/17 09:18 Dose: 25 mg Mupirocin (Bactroban Ointment) [address] [facility] Last Admin: 12/21/17 10:10 Dose: Not Given Nifedipine (Procardia Xl) [address] [facility] Last Admin: 12/21/17 09:17 Dose: 60 mg Dolutegravir Sodium [Tivicay] 50 Mg ( Home Med) [address] [facility] Last Admin: 12/21/17 09:15 Dose: 50 mg Lamivudine [Epivir Hbv] 100 Mg ( Home Med) [address] [facility] Last Admin: 12/21/17 09:16 Dose: 100 mg Pantoprazole Sodium (Protonix Ec Tab) [address] [facility] Last Admin: 12/21/17 08:08 Dose: 40 mg Petrolatum (Desitin Maximum Strength Topical 40% Oint) 0 gm TOP Q4H PRN PRN Reason: Rash Last Admin: 12/19/17 09:40 Dose: 1 applic Tamsulosin HCl (Flomax) 0.[address] [facility] Last Admin: 12/21/17 09:15 Dose: 0.4 mg Vancomycin HCl (Vancocin 25 Mg/Ml (Oral Use)) [address] [facility] PRN Reason: Protocol Stop: 12/29/17 14:01 Last Admin: 12/21/17 09:18 Dose: 125 mg Vitamin B Complex/Vit C/Folic Acid (Nephro-Christel) [address] [facility] Last Admin: 12/21/17 08:08 Dose: 1 tab - Labs Labs: 12/20/17 10:00 12/20/17 10:00 PT 17.7 SECONDS (9.4-12.5) H 12/08/17 17:00 INR 1.54 (0.93-1.08) H 12/08/17 17:00 APTT 41.8 Seconds (25.1-36.5) H 12/08/17 17:00 - Constitutional Appears: Non-toxic, No Acute Distress - Head Exam Head Exam: ATRAUMATIC, NORMOCEPHALIC - Eye Exam Eye Exam: EOMI, PERRL Pupil Exam: PERRL. absent: Miosis, Mydriatic - ENT Exam ENT Exam: Mucous Membranes Moist, Normal Oropharynx - Neck Exam Neck Exam: Full ROM, Normal Inspection - Respiratory Exam Respiratory Exam: Clear to Ausculation Bilateral. absent: Rales, Rhonchi - Cardiovascular Exam Cardiovascular Exam: RRR, +S1, +S2. absent: Gallop, Rubs - GI/Abdominal Exam GI & Abdominal Exam: Soft, Tenderness, Normal Bowel Sounds. absent: Distended, Firm, Guarding, Rigid, Organomegaly, Rebound Additional comments: LLQ discomfort to palpation - Extremities Exam Extremities Exam: absent: Pedal Edema Additional comments: Right AKA - Neurological Exam Neurological Exam: Alert, Awake - Psychiatric Exam Psychiatric exam: Normal Affect, Normal Mood - Skin Skin Exam: Dry, Intact, Normal Color, Warm Assessment and Plan - Assessment and Plan (Free Text) Assessment: 72yo man with PMH of ESRD on HD, Prostate cancer, HIV on HAART, HTN, Gout, severe PAD complicated by Right AKA and left foot ulcers with chronic osteomyelitis s/p multiple left digit amputations and left tibial artery angioplasty, pyelonephritis with ESBL E. coli bacteremia, and SBO s/p appendectomy and adhesion lysis 11/11/17 presenting with fever and tachycardia from dialysis center. Active treatment of ESBL E. coli bacteremia, enteritis/ colitis, and diarrhea with history of C. difficile. Plan: -ID managing- on meropenem for ESBL and vancomycin PO for Cdiff empiric coverage -pending Cdiff collected on 12/20/17 -improving abdominal pain, tolerating diet -no indication for repeat cross-sectional imaging -CT angio 12/12/17 with no signs of mesenteric occlusive disease -will benefit from elective outpatient colonoscopy once medically optimized -thank you for opportunity to participate in the care of this patient <Shoaib Parish - Last Filed: 12/21/17 11:59> Objective - Vital Signs/Intake and Output Vital Signs (last 24 hours): Temp Pulse Resp BP Pulse Ox 97.9 F 94 H 18 136/74 98 12/21/17 07:30 12/21/17 09:18 12/21/17 07:30 12/21/17 09:18 12/21/17 07:30 Intake and Output: 12/21/17 12/21/17 06:59 18:59 Intake Total 840 Balance 840 - Medications Medications: Current Medications Abacavir Sulfate (Ziagen) [address] [facility] PRN Reason: Protocol Last Admin: 12/21/17 09:19 Dose: 300 mg Acetaminophen (Tylenol 325mg Tab) 650 mg PO Q4H PRN PRN Reason: Fever >100.4 F Last Admin: 12/20/17 17:58 Dose: 650 mg Allopurinol (Zyloprim) [address] [facility] Last Admin: 12/21/17 09:19 Dose: 100 mg Bismuth Subsalicylate (Pepto-Bismol) 262 mg PO Q6H PRN PRN Reason: Diarrhea Last Admin: 12/19/17 14:08 Dose: 262 mg Calcium/Vitamin D (Oscal-D 250 Mg-125 Units Tab) [address] [facility] Last Admin: 12/21/17 09:23 Dose: 1 tab Cholecalciferol (Vitamin D) 1,[address] [facility] Last Admin: 12/21/17 09:17 Dose: 1,000 intlu Dextrose (Dextrose 50% Inj) 50 ml IVP PRN PRN PRN Reason: Low blood sugar Last Admin: 12/11/17 17:12 Dose: 50 ml Heparin Sodium (Porcine) (Heparin) 1,[address] [facility] Last Admin: 12/20/17 18:07 Dose: Not Given Meropenem 500 mg/ Sodium (Chloride) 50 mls @ 100 mls/hr IVPB Q24H [facility] PRN Reason: Protocol Stop: 12/26/17 11:31 Last Admin: 12/21/17 10:12 Dose: 100 mls/hr Insulin Human Regular (Humulin R Med) [address] [facility] PRN Reason: Protocol Last Admin: 12/21/17 08:05 Dose: Not Given Metoprolol Succinate (Toprol Xl) [address] [facility] Last Admin: 12/21/17 09:18 Dose: 25 mg Mupirocin (Bactroban Ointment) [address] [facility] Last Admin: 12/21/17 10:10 Dose: Not Given Nifedipine (Procardia Xl) [address] [facility] Last Admin: 12/21/17 09:17 Dose: 60 mg Dolutegravir Sodium [Tivicay] 50 Mg ( Home Med) [address] [facility] Last Admin: 12/21/17 09:15 Dose: 50 mg Lamivudine [Epivir Hbv] 100 Mg ( Home Med) [address] [facility] Last Admin: 12/21/17 09:16 Dose: 100 mg Pantoprazole Sodium (Protonix Ec Tab) [address] [facility] Last Admin: 12/21/17 08:08 Dose: 40 mg Petrolatum (Desitin Maximum Strength Topical 40% Oint) 0 gm TOP Q4H PRN PRN Reason: Rash Last Admin: 12/19/17 09:40 Dose: 1 applic Tamsulosin HCl (Flomax) 0.[address] [facility] Last Admin: 12/21/17 09:15 Dose: 0.4 mg Vancomycin HCl (Vancocin 25 Mg/Ml (Oral Use)) [address] [facility] PRN Reason: Protocol Stop: 12/29/17 14:01 Last Admin: 12/21/17 09:18 Dose: 125 mg Vitamin B Complex/Vit C/Folic Acid (Nephro-Christel) [address] [facility] Last Admin: 12/21/17 08:08 Dose: 1 tab - Labs Labs: 12/20/17 10:00 12/20/17 10:00 PT 17.7 SECONDS (9.4-12.5) H 12/08/17 17:00 INR 1.54 (0.93-1.08) H 12/08/17 17:00 APTT 41.8 Seconds (25.1-36.5) H 12/08/17 17:00 Attending/Attestation - Attestation I have personally seen and examined this patient.: Yes I have fully participated in the care of the patient.: Yes I have reviewed all pertinent clinical information, including history, physical exam and plan: Yes Notes (Text): 12/21/17 11:55 I have seen and examined patient with GI fellow. No acute events overnight, he is seen resting in bed comfortably. He endorses pain on buttocks but otherwise denies nausea, vomiting, fever/chills. He reports one bowel movement yesterday , more solid in consistency. Tolerating PO diet without difficulty. 12 point review of systems performed, negative aside from mentioned above. ESRD on HD Prostate cancer HIV on HAART PVD Sepsis, bacteremia Colitis - Diet as tolerated - Continue with antibiotic therapy as per ID - Patient receiving empiric therapy for c-difficile, given improvement in bowel frequency/consistency would continue - Follow up results of stool studies - Patient planned for hospital discharge today, suggest additional outpatient follow up with colonoscopy when acute symptoms have resolved - No further planned GI intervention, will sign off case. Please reconsult as necessary, thank you.
--- NOTE | 2017-12-21 14:19 | PN ---
DATE: 12/21/2017 SUBJECTIVE: I saw him resting in bed. He is eating his breakfast. He had a bowel movement yesterday. He is still having abdominal pain from time to time. He is getting dialysis. He is on IV antibiotics. He is on Bactroban cream, Desitin, dextrose, Tivicay, Flomax, heparin, insulin, Epivir, Merrem IV, Nephro-Christel, Os-Terrell, Pepto-Bismol, Procardia, Protonix, Toprol, Tylenol, vancomycin p.o., vitamin D, Ziagen and Zyloprim. PHYSICAL EXAMINATION: VITAL SIGNS: He has a 98 temperature, 70 pulse, 137/83 blood pressure, 18 respiratory rate, 97% O2 sat on room air. HEENT: Head is atraumatic and normocephalic. GENERAL: He is alert and talking, comfortable. He said he does have abdominal pain, but none now. He is eating breakfast well. He had a bowel movement yesterday. HEART: Regular rate. LUNGS: Clear to auscultation. ABDOMEN: Soft, nontender. Positive bowel sounds. EXTREMITIES: Right AKA and left with no edema. LABORATORY DATA: He has 11.3 white count, the best it has been; 7.8 hemoglobin, we are going to transfuse him a unit at dialysis; 24.3 hematocrit with a 558 platelets. He has 140 sodium, potassium of 3.9, BUN 22, creatinine 4.1, GFR is 14, sugar is 96, calcium is 7.8, phosphorus 3.3, total bilirubin is 0.2, AST is 82, ALT is 23, alkaline phosphatase 97, total protein 5.9, procalcitonin is 1.64, high. Moderate urine. ASSESSMENT AND PLAN: We will see how Dr. Flowers, infectious disease doctor, handles it. He is still on IV antibiotics at this time. We will check his labs tomorrow. I encouraged him to get out of bed to chair, physical therapy and we will transfuse him at dialysis. Parag Brownlee DO
--- NOTE | 2017-12-21 14:39 | PN ---
DATE: 12/21/2017 SUBJECTIVE: The patient is in bed in no acute distress, nontoxic. PHYSICAL EXAMINATION: VITAL SIGNS: Temperature is 98, blood pressure is 136/70, respiratory rate of 18, heart rate of 102. HEENT: Unremarkable. NECK: Supple. LUNGS: Have decreased breath sounds. HEART: Normal S1, S2. ABDOMEN: Soft, nontender. LABORATORY [place]: [place] [address] as of yesterday and hemoglobin of 7. BUN of 22, creatinine of 4.1. Procalcitonin is 1.64 in face of a creatinine of 4.1. Influenza is negative. Microbiology reveals the cultures are negative. The stool for C. diff is pending. Repeat cultures are pending. Currently the patient is on meropenem, was given a dose of vancomycin yesterday and currently also on p.o. vancomycin. Chest x-ray from yesterday is reported to be no evidence of pneumonia. ASSESSMENT AND PLAN: This is a 72-year-old who was seen earlier this morning with sepsis with extended-spectrum beta-lactamase Escherichia coli bacteremia, hemodialysis catheter associated bacteremia, status post removal of right-sided catheter and placement of a new left chest wall catheter, diarrhea and now with normalization of white count. We will check on the repeat cultures, day #8 of change of catheter and also on p.o. vancomycin and IV meropenem. We will follow with you. Cesar Flowers MD
--- NOTE | 2017-12-21 15:45 | CP.PCM.PN ---
Subjective - Date & Time of Evaluation Date of Evaluation: 12/21/17 Time of Evaluation: 15:44 - Subjective Subjective: Nephrology Consultation Note: Assessment: Stable ESBL E.Coli SEPSIS (suspect permacath a source per ID) Enteritis and Colitis Hypokalemia, hypoglycemia, hypophosphatemia recent High grade SBO s/p surgery, appendectomy: improved hx of prostate CA Hypertensive Chronic Kidney Disease (I12.9) ESRD on HD via permacath (TTS) Anemia (D64.9), HTN (I12.9) HIV on HAART, PVD s/p angioplasty s/p Rt AKA Plan plan for HD tomorrow as per TTS schedule. nephrovite 1 tab/day. aransep 100 mcg weekly for anemia 12/18/17. PRBC as needed . last Hb 8.7. 1 unit PRBC 12/18/17 hold phos binders as pt with limited oral intake and low serum Phos Hypertension control with meds as ordered. resume nifedipine supplement K as needed d.c IVF as oral intake better. Liberalize diet, had d/w RN to change to regular diet Dose meds/antibiotics for ESRD status. Avoid fleets enema/magnesium based laxatives. Further work up/management as per primary team. Thanks for allowing me to participate in care of your patient. Will follow with you. Please call if any Qs. d/w team Dr Yandel Arechiga Office: [phone] HPI: Pt is a 72 y/o M with hx of HIV on HAART, PVD s/p angioplasty, Rt AKA, hypertension (10-15 years), ESRD on HD (via permacath) [place] [facility] [place] foot toe amputations, prostate CA presented with pain abdomen and bacteremia renal consult for ESRD management pt doesn't feel well. says everything is bothering him as lower ext pain, groin pain. says alcala catheter was removed 2 weeks ago ROS: denies CP/SOB. all other neg except as in HPI. c/o abdomen pain. feels same with pain in heels, ankle. Procedures: s/p CT guided aspiration 11/19/17, underwent CT angiogram abdomen . s/p permacath change 12/14/2017 oral intake better as per nursing staff Physical Examination: General Appearance: in no acute respiratory distress, facial muscles wasted, Vitals reviewed and noted as below Head; Atraumatic, normocephalic ENT: no ulcers no thrush. Tongue is midline dry. Oropharynx: no rash or ulcers. EYES: Pupils are equal, round and reactive to light accommodation. Eye muscles and extraocular movement intact. Sclera is anicteric. Neck; supple no lymphadenopathy, no thyromegaly or bruit Lungs: Normal respiratory rate/effort. Breath sounds bilateral clear Heart: Normal rate. s1s2 normal. No rub or gallop. Extremities: no edema. No varicose veins. s/p Rt AKA Neurological: Patient is alert oriented x 3 follow commands,. no focal deficit Skin: Warm and dry. Normal turgor. Palpitation: Normal elasticity for age. Abdomen: Abdomen is soft. much less tender in lower abdomen area without guarding. Psych: limited insight. flat affect MSK: Digits and nails normal, left foot toe amputations in past. Rt AKA. : kidney not palpable. Access: permacath and maturing left AVF Labs/imaging/EKG reviewed. Past medical history, past surgical history, family history, social history, allergy reviewed and noted as below Family hx: sister was on dialysis. Rest non-contributory Objective - Vital Signs/Intake and Output Vital Signs (last 24 hours): Temp Pulse Resp BP Pulse Ox 97.9 F 94 H 18 136/74 98 12/21/17 07:30 12/21/17 09:18 12/21/17 07:30 12/21/17 09:18 12/21/17 07:30 Intake and Output: 12/21/17 12/21/17 06:59 18:59 Intake Total 840 Balance 840 - Medications Medications: Current Medications Abacavir Sulfate (Ziagen) 300 mg PO DAILY DWAIN PRN Reason: Protocol Last Admin: 12/21/17 09:19 Dose: 300 mg Acetaminophen (Tylenol 325mg Tab) 650 mg PO Q4H PRN PRN Reason: Fever >100.4 F Last Admin: 12/20/17 17:58 Dose: 650 mg Allopurinol (Zyloprim) 100 mg PO DAILY DWAIN Last Admin: 12/21/17 09:19 Dose: 100 mg Bismuth Subsalicylate (Pepto-Bismol) 262 mg PO Q6H PRN PRN Reason: Diarrhea Last Admin: 12/19/17 14:08 Dose: 262 mg Calcium/Vitamin D (Oscal-D 250 Mg-125 Units Tab) 1 tab PO DAILY [facility] Last Admin: 12/21/17 09:23 Dose: 1 tab Cholecalciferol (Vitamin D) 1,000 intlu PO DAILY [facility] Last Admin: 12/21/17 09:17 Dose: 1,000 intlu Dextrose (Dextrose 50% Inj) 50 ml IVP PRN PRN PRN Reason: Low blood sugar Last Admin: 12/11/17 17:12 Dose: 50 ml Heparin Sodium (Porcine) (Heparin) 1,700 units ICV [facility] Last Admin: 12/20/17 18:07 Dose: Not Given Meropenem 500 mg/ Sodium (Chloride) 50 mls @ 100 mls/hr IVPB Q24H DWAIN PRN Reason: Protocol Stop: 12/26/17 11:31 Last Admin: 12/21/17 14:08 Dose: 100 mls/hr Insulin Human Regular (Humulin R Med) 0 units SC ACHS [facility] PRN Reason: Protocol Last Admin: 12/21/17 13:33 Dose: Not Given Metoprolol Succinate (Toprol Xl) 25 mg PO DAILY [facility] Last Admin: 12/21/17 09:18 Dose: 25 mg Mupirocin (Bactroban Ointment) 0 gm TOP BID [facility] Last Admin: 12/21/17 10:10 Dose: Not Given Nifedipine (Procardia Xl) 60 mg PO DAILY [facility] Last Admin: 12/21/17 09:17 Dose: 60 mg Dolutegravir Sodium [Tivicay] 50 Mg ( Home Med) 50 mg PO DAILY [facility] Last Admin: 12/21/17 09:15 Dose: 50 mg Lamivudine [Epivir Hbv] 100 Mg ( Home Med) 100 mg PO DAILY [facility] Last Admin: 12/21/17 09:16 Dose: 100 mg Pantoprazole Sodium (Protonix Ec Tab) 40 mg PO ACB [facility] Last Admin: 12/21/17 08:08 Dose: 40 mg Petrolatum (Desitin Maximum Strength Topical 40% Oint) 0 gm TOP Q4H PRN PRN Reason: Rash Last Admin: 12/19/17 09:40 Dose: 1 applic Tamsulosin HCl (Flomax) 0.4 mg PO DAILY [facility] Last Admin: 12/21/17 09:15 Dose: 0.4 mg Vancomycin HCl (Vancocin 25 Mg/Ml (Oral Use)) 125 mg PO QID [facility] PRN Reason: Protocol Stop: 12/29/17 14:01 Last Admin: 12/21/17 14:09 Dose: 125 mg Vitamin B Complex/Vit C/Folic Acid (Nephro-Christel) 1 tab PO 0800 [facility] Last Admin: 12/21/17 08:08 Dose: 1 tab - Labs Labs: 12/20/17 10:00 12/20/17 10:00 PT 17.7 SECONDS (9.4-12.5) H 12/08/17 17:00 INR 1.54 (0.93-1.08) H 12/08/17 17:00 APTT 41.8 Seconds (25.1-36.5) H 12/08/17 17:00
--- NOTE | 2017-12-21 23:42 | PN ---
DATE: 12/21/2017 SUBJECTIVE: A 72-year-old diabetic male seen at bedside for left posterior heel ulceration. The patient states he is having any pain in the ulceration today. Denies any fever, chills, nausea, shortness of breath, or headache. The patient's vital signs reveal temperature of 97.9, pulse rate of 94, blood pressure of 136/74, respiratory rate of 18. Laboratory findings reveal a white count of 11.3, hemoglobin of 7.8, hematocrit of 24.3, platelet count of 588. OBJECTIVE: There is noted to be a right above-knee amputation. Weakly palpable pedal pulses noted bilaterally. Capillary filling time is delayed times all remaining digits. There is noted to be no edema. Temperature gradient is reversed. The patient is unable to detect 5.07 g monofilament wire testing. Left heel presents with a full-thickness ulceration. There is noted to be a primarily fibrotic with mixed granular wound base. There is noted to be serous drainage only. There is no purulence. The wound does not probe to tendon or bone. There is no malodor. There is no underlying abscess formation noted. ASSESSMENT: A 72-year-old male with a left heel stage II diabetic pressure ulcer secondary to bed-bound status. PLAN: The patient was seen and evaluated. We will cleanse the wound with normal sterile saline and apply Optifoam and Bactroban daily. Multi Podus boots must be worn at all times in order to offload the heel and prevent further breakdown. Jerrod Dunn DPM
== END 2017-12-21 19:04 | disposition home or self-care (01) | DRG 314 ==
LOC: ED 16:35 → ERH 20:13 → 2RSO 23:13 → 5RSO 12-11 21:09
PROVIDERS: ADMIT Family Medicine; ATTEND Family Medicine
PROC: 5A1D70Z Performance of Urinary Filtration, Intermittent, Less than 6 Hours Per Day (ICD-10-PCS; 2017-12-11)
PROC: 5A1D70Z Performance of Urinary Filtration, Intermittent, Less than 6 Hours Per Day (ICD-10-PCS; 2017-12-13)
PROC: 0JH63XZ Insertion of Tunneled Vascular Access Device into Chest Subcutaneous Tissue and Fascia, Percutaneous Approach (ICD-10-PCS; principal; 2017-12-14)
PROC: 02H633Z Insertion of Infusion Device into Right Atrium, Percutaneous Approach (ICD-10-PCS; 2017-12-14)
PROC: 0JPT3XZ Removal of Tunneled Vascular Access Device from Trunk Subcutaneous Tissue and Fascia, Percutaneous Approach (ICD-10-PCS; 2017-12-14)
PROC: 05PY33Z Removal of Infusion Device from Upper Vein, Percutaneous Approach (ICD-10-PCS; 2017-12-14)
PROC: B244ZZZ Ultrasonography of Right Heart (ICD-10-PCS; 2017-12-14)
PROC: 5A1D70Z Performance of Urinary Filtration, Intermittent, Less than 6 Hours Per Day (ICD-10-PCS; 2017-12-15)
PROC: 5A1D70Z Performance of Urinary Filtration, Intermittent, Less than 6 Hours Per Day (ICD-10-PCS; 2017-12-18)
PROC: 30233N1 Transfusion of Nonautologous Red Blood Cells into Peripheral Vein, Percutaneous Approach (ICD-10-PCS; 2017-12-18)
PROC: 5A1D70Z Performance of Urinary Filtration, Intermittent, Less than 6 Hours Per Day (ICD-10-PCS; 2017-12-20)
DX: T80.211A Bloodstream infection due to central venous catheter, initial encounter (principal); A41.51 Sepsis due to Escherichia coli [E. coli]; N18.6 End stage renal disease; I12.0 Hypertensive chronic kidney disease with stage 5 chronic kidney disease or end stage renal disease; K55.9 Vascular disorder of intestine, unspecified; Z21 Asymptomatic human immunodeficiency virus [HIV] infection status; E11.51 Type 2 diabetes mellitus with diabetic peripheral angiopathy without gangrene; K21.9 Gastro-esophageal reflux disease without esophagitis; Z99.2 Dependence on renal dialysis; E11.22 Type 2 diabetes mellitus with diabetic chronic kidney disease; M10.9 Gout, unspecified; E78.5 Hyperlipidemia, unspecified; E87.6 Hypokalemia; E11.649 Type 2 diabetes mellitus with hypoglycemia without coma; I08.0 Rheumatic disorders of both mitral and aortic valves; L89.622 Pressure ulcer of left heel, stage 2; E11.610 Type 2 diabetes mellitus with diabetic neuropathic arthropathy; J44.9 Chronic obstructive pulmonary disease, unspecified; D63.8 Anemia in other chronic diseases classified elsewhere; Y84.8 Other medical procedures as the cause of abnormal reaction of the patient, or of later complication, without mention of misadventure at the time of the procedure; Z85.46 Personal history of malignant neoplasm of prostate; Z87.440 Personal history of urinary (tract) infections; Z74.01 Bed confinement status; Z79.899 Other long term (current) drug therapy; Z89.611 Acquired absence of right leg above knee; Z89.412 Acquired absence of left great toe

== ENCOUNTER → 2018-02-13 | Day surgery (SDC) | payer MEDICARE ==
[~2018-02-13] MED LIST: Bupivacaine 0.5% Inj(30mL) IJ ONE; Bupivacaine 0.5% Inj(30mL) ONE; CeFAZolin 1 gm in NS 100ml IVPB ONE; Etomidate 20 mg/10ml Inj IV ONE; HYDROmorphone 0.5 mg/0.5 ml ISec IVP PRN; Lidocaine 1% Inj (20ml) ONE; Midazolam 2 MG/2 ML VIAL ONE; Phenylephrine 10 mg/ml Inj ONE; Sevoflurane - Inhalation Anesthetic Liq (250 ml) ONE; Sodium Chloride 0.9% 1,000 ML IV SCH; Thrombin Topical 20,000 Intl Units Spray Kit TOP ONE; ePHEDrine 50 mg/ml Inj ONE
[2018-02-13 08:22] LABS: INR 1.05 (0.93-1.08); PROTHROMBIN TIME 12.1 SECONDS (9.4-12.5)
[2018-02-13 08:31] LABS: BASO # 0.02 K/mm3 (0.0-2.0); BASO % 0.3 % (0.0-3.0); EOS # 0.3 (0.0-0.7); EOS % 3.5 % (1.5-5.0); GRAN # 3.15 (1.4-6.5); GRAN % 42.5 % (50.0-68.0); HEMOGLOBIN 14.5 g/dL (14.0-18.0); LYMPH # 3.1 (1.2-3.4); LYMPH % 42.1 % (22.0-35.0); MEAN CELL VOLUME 97.2 fl (80.0-105.0); MEAN CORPUSCULAR HEMOGLOBIN 30.9 pg (25.0-35.0); MEAN CORPUSCULAR HGB CONC 31.8 g/dl (31.0-37.0); MEAN PLATELET VOLUME 9.7 fl (7.0-11.0); MONO # 0.9 (0.1-0.6); MONO % 11.6 % (1.0-6.0); RBC 4.69 10^6/uL (3.5-6.1); WHITE BLOOD COUNT 7.4 10^3/ul (4.5-11.0)
[2018-02-13 09:09] LABS: CALCIUM 8.9 mg/dL (8.4-10.5)
--- NOTE | 2018-02-13 11:45 | PCM.SURG1 ---
Surgeon's Initial Post Op Note - Surgeon's Notes Surgeon: Dr. Cox Entry Level Manufacturing Engineer: Pratibha Gentile, PGY2 Type of Anesthesia: General LMA Anesthesia Administered By: Dr. Page Pre-Operative Diagnosis: ESRD, malfunctioning left upper arm arteriorvenous fistula Operative Findings: Large diameter basilic vein, adequate hemostasis obtained at the end of the case with cautery and ligation, palpable pulse with distal thrill and dopplerable basilic pulse at the end of the case Post-Operative Diagnosis: same Operation Performed: transposition of left basilic vein upper arm arteriovenous fistula Specimen/Specimens Removed: none Estimated Blood Loss: EBL {In ML}: 5 Blood Products Given: N/A Drains Used: No Drains Post-Op Condition: Fair Date of Surgery/Procedure: 02/13/18 Time of Surgery/Procedure: 09:30
[2018-02-13 12:42] VITALS: RESP 18; TEMP 98; O2SAT 92
[2018-02-13 13:54] VITALS: BP 123/76; PULSE 82
--- NOTE | 2018-02-14 06:14 | OP ---
PROCEDURE DATE: 02/13/2018 PREOPERATIVE DIAGNOSIS: Left upper arm malfunctioning arteriovenous fistula. POSTOPERATIVE DIAGNOSIS: Left upper arm malfunctioning arteriovenous fistula. PROCEDURE PERFORMED: Transposition of the basilic vein, AV fistula and revision of the AV fistula. SURGEON: Kevin Cox MD TIE INSPECTOR: Pratibha Gentile DO ANESTHESIOLOGIST: Js Page MD ANESTHESIA: General endotracheal anesthesia. ESTIMATED BLOOD LOSS: Minimal. SPECIMENS: None. FINDINGS: The patient is a 72-year-old man with end-stage renal failure, who is currently being dialyzed by the catheter. The patient had an AV fistula created in the left antecubital fossa between the basilic vein and brachial artery and at that time, it was decided not to elevate the vein due to the patient's poor medical condition. Now, after 6 weeks, when the fistula was working fine, it was evaluated with the ultrasound showing good flow and good distention and we decided to proceed with transposition of the basilic vein in order to be able to expose it for dialysis access. DESCRIPTION OF PROCEDURE: The patient was brought to the operating room and was placed on the operating table in supine position. The patient was connected to EKG, blood pressure and pulse oximetry monitors. The patient then underwent general endotracheal anesthesia and was prepped and draped in the usual sterile fashion. First, a standard time-out procedure took place when everybody in the room agreed as to the patient's identity, diagnosis, and procedure to be performed. An operative plan and postoperative course were discussed with the OR team. First, using a Doppler ultrasound to the area of the basilic vein, was carefully evaluated and all its side branches were marked. We then proceeded to make an incision slightly above the course of the vein and raised flaps, both towards the vein itself as well as anteriorly towards the biceps. The incision was carried from just above the anastomosis up towards the axilla. Now, the vein was carefully dissected out. The medial nerve, which was running on top of this was carefully dissected out and pushed to side in order to avoid any injury. The vein branches were ligated and the vein itself was pushed towards the anterior portion of the biceps muscle. The fascia was now closed covering the nerve and underlying artery and vein was left on top of the fascia. It was then carefully fixed anteriorly by tying the subcutaneous flap to the fascia and pushing the vein anteriorly. Once this was done, the wound was closed in 2 layers using 3-0 Vicryl for the deep dermal layer and 4-0 Monocryl for skin. A sterile Dermabond dressing was applied to the wound. There was good flow in the fistula, which was both palpable and Dopplerable. The patient was awakened, extubated, and transferred to the recovery room for further observation. Kevin Cox MD
== END | disposition home or self-care (01) ==
LOC: SDS 07:11
PROVIDERS: ATTEND General Practice
DX: T82.510A Breakdown (mechanical) of surgically created arteriovenous fistula, initial encounter (principal); I12.9 Hypertensive chronic kidney disease with stage 1 through stage 4 chronic kidney disease, or unspecified chronic kidney disease; N18.6 End stage renal disease; E11.22 Type 2 diabetes mellitus with diabetic chronic kidney disease; E11.21 Type 2 diabetes mellitus with diabetic nephropathy; Z21 Asymptomatic human immunodeficiency virus [HIV] infection status; D64.9 Anemia, unspecified; Z90.79 Acquired absence of other genital organ(s)
CPT/HCPCS: 36415; 36819; 80048; 85025; 85610; 85730; J0690; J1170; J1644; J2250; J2370; J2405; J3010; J7030; J7120

== ENCOUNTER 2018-06-27 17:19 | Emergency (ER) | payer MEDICARE ==
[2018-06-27 17:39] VITALS: TEMP 98.3
--- NOTE | 2018-06-27 19:24 | ED PDOC ---
Arrival/HPI - General Chief Complaint: Male Genitourinary Time Seen by Provider: 06/27/18 17:37 Historian: Patient - History of Present Illness Narrative History of Present Illness (Text): 06/27/18 18:34 72 year old male whose past medical history includes HIV, COPD, Vertigo, Diabetes, Prostate Cancer, Kidney failure on dialysis patient (,,) presents to the emergency department complaining of suprabupic pain and groin pa in radiating down to the scrotum and rectum, which started a few hours ago. Patient states that he finished dialysis today when he felt the pain to his groin, he tried to urinate 2x and only blood "came out." He states that he saw a urologist from the [facility] on Sunday and Sunday who taught him to self catheterize, because he has difficulty urinating, and retains his urine. He states that he still makes urine and urinates at least 2x in 24hrs. Patient denies fevers, chills, headache, dizziness, chest pain, shortness of breath, dyspnea on exertion, cough, abdominal pain, nausea, vomiting, diarrhea, back pain, neck pain, or any other complaint. Patient states that he spoke to his pmd plane captain and was advised to get a scrotal US. PMD: Dr. Brownlee Housekeeping Room Inspector: Dr. Clemons Urologist: [facility] Time/Duration: Prior to Arrival Symptom Onset: Gradual Symptom Course: Unchanged Activities at Onset: Light Context: Home Past Medical History - Provider Review Nursing Documentation Reviewed: Yes - Infectious Disease Hx of Infectious Diseases: None - Tetanus Immunization Tetanus Immunization: Up to Date - Cardiac Hx Cardiac Disorders: Yes Hx Hypertension: Yes - Pulmonary Hx Respiratory Disorders: Yes Hx Chronic Obstructive Pulmonary Disease (COPD): Yes - Neurological Hx Neurological Disorder: No - HEENT Hx HEENT Disorder: No - Renal Hx Renal Disorder: Yes Hx Dialysis: Yes Date of Last Dialysis Treatment: 06/27/18 - Endocrine/Metabolic Hx Endocrine Disorders: Yes - Hematological/Oncological Hx Blood Disorders: Yes Hx Cancer: Yes - Integumentary Hx Dermatological Disorder: Yes - Musculoskeletal/Rheumatological Hx Musculoskeletal Disorders: Yes Hx Osteomyelitis: Yes - Gastrointestinal Hx Gastrointestinal Disorders: Yes Hx Gastroesophageal Reflux: Yes - Genitourinary/Gynecological Hx Genitourinary Disorders: Yes - Psychiatric Hx Psychophysiologic Disorder: No Hx Substance Use: No - Surgical History Other/Comment: Phong HOANGA - Anesthesia Hx Anesthesia Reactions: No Hx Malignant Hyperthermia: No - Suicidal Assessment Feels Threatened In Home Enviroment: No Family/Social History - Physician Review Nursing Documentation Reviewed: Yes Family/Social History: No Known Family HX Smoking Status: Never Smoked Hx Alcohol Use: Yes Hx Substance Use: No Allergies/Home Meds Allergies/Adverse Reactions: Allergies banana Allergy (Verified 06/27/18 17:27) SWELLING shrimp Allergy (Verified 06/27/18 17:27) SWELLING Home Medications: Home Meds Medication Instructions Recorded Confirmed Cholecalciferol [Vitamin D 1000 IU] 1,000 units PO DAILY 12/08/17 06/27/18 Metoprolol Tartrate [Lopressor] 100 mg PO BID 01/25/18 06/27/18 Atorvastatin [Lipitor] 20 mg PO DAILY 06/27/18 06/27/18 Folic Acid/Vit B Complex and C 1 tab PO DAILY 06/27/18 06/27/18 [Renal Vitamin Tablet] Furosemide [Lasix] 40 mg PO DAILY 06/27/18 06/27/18 Sevelamer Carbonate 1 tab PO TID 06/27/18 06/27/18 Review of Systems - Physician Review All systems were reviewed & negative as marked: Yes - Review of Systems Constitutional: absent: Fevers Eyes: absent: Vision Changes Respiratory: absent: SOB, Cough Gastrointestinal: absent: Abdominal Pain, Nausea, Vomiting Genitourinary Male: Hematuria, Other (suprabuic pain to the groin down to the scrotum ). absent: Dysuria Musculoskeletal: absent: Back Pain, Neck Pain Neurological: absent: Headache, Dizziness Physical Exam Vital Signs Reviewed: Yes Vital Signs Temp Pulse Resp BP Pulse Ox 06/27/18 17:34 98.3 F 80 17 129/66 96 Temperature: Afebrile Blood Pressure: Normal Pulse: Regular Respiratory Rate: Normal Appearance: Positive for: Well-Appearing, Non-Toxic, Comfortable, Other (patient has a right aka) Pain Distress: None Mental Status: Positive for: Alert and Oriented X 3 - Systems Exam Head: Present: Atraumatic, Normocephalic Pupils: Present: PERRL Extroacular Muscles: Present: EOMI Conjunctiva: Present: Normal Mouth: Present: Moist Mucous Membranes Neck: Present: Normal Range of Motion Respiratory/Chest: Present: Clear to Auscultation, Good Air Exchange. No: Respiratory Distress, Accessory Muscle Use Cardiovascular: Present: Regular Rate and Rhythm, Normal S1, S2. No: Murmurs Abdomen: No: Tenderness, Distention, Peritoneal Signs Rectal: Present: Rectal Tenderness, Other (guiaic + stool, BOARDINGHOUSE KEEPER was present as a nursery laborer). No: Gross Blood, Hemorrhoids Genitourinary Male: Present: Normal External Genitalia, Testicle Tenderness (+tenderness to the scrotum), Prostate Tenderness, Other (BOARDINGHOUSE KEEPER was nursery laborer during exam). No: Lesions, Penile Discharge, Penile Swelling, Masses, Erythema, Hernias Back: Present: Normal Inspection. No: CVA Tenderness, Midline Tenderness Upper Extremity: Present: Normal Inspection. No: Cyanosis, Edema Lower Extremity: Present: Other (+R AKA). No: Edema Neurological: Present: GCS=15, CN II-XII Intact, Speech Normal Skin: Present: Warm, Dry, Normal Color. No: Rashes Psychiatric: Present: Alert, Oriented x 3, Normal Insight, Normal Concentration Medical Decision Making ED Course and Treatment: 06/27/18 19:34 Impression: 72 year old male who presents to the emergency department complaining of suprabupic pain. Plan: -- Labs -- Urine Culture -- Urinalysis -- US scrotum -- Reassess and disposition Prior Visits: Notes and results from previous visits were reviewed. Progress Notes: 06/27/18 18:40 BOARDINGHOUSE KEEPER is at bed side with bladder scan. Patient noted to have 59cc's of urine in the bladder. Rectal exam performed by PA with BOARDINGHOUSE KEEPER at bedside. Labs and US ordered. 06/27/18 20:00 Labs reviewed : wbc 9, hgb 12 (which is much improved compared to prior labs, as the patient has had hgb in December 2017 7-8) US doppler of scrotum : Findings Right Testicle Measures 4.15 x 1.7 x 2.27 cm. Normal echotexture and flow. Right Epididymis Epididymal head measures 0.55 x 0.45 x 0.47 cm. Grossly unremarkable appearance with normal flow. Left Testicle Measures 3.8 x 1.72 x 2.21 cm. Normal echotexture and flow. Left Epididymis Epididymal head measures 0.72 x 0.5 x 0.61 cm. Grossly unremarkable appearance with normal flow. Hydrocele None. Varicocele None. Other Findings None. Impression Normal study with no evidence of torsion. Electronically signed on Jun 27, 2018 9:23:58 PM EST by: Yuan Lerner M.D., MBA Certified By [facility] [facility] Fellowship Trained MRI and CT Specialist On re-evaluation, patient reports significant improvement of his symptoms, denies any pain at this time. He remains AAOx3 in no acute distress. Diagnostic results d/w the patient. Patient offered inpatient observation, however ee states that he feels better and wishes to go home. He is cheerful, smiling and in good spirits. He further adds that he has had a colonoscopy done at the [facility] ~6yrs ago and found to have only polyps which were removed. He also states that he has a scheduled home visit by Dr. Brownlee on Sunday (in 4 days) Case d/w DRY KILN OPERATOR Fidelia and Dr. Brownlee, who states that the patient can go home if the patient is refusing further observation and he will call the patient tomorrow. Dx of probable prostatitis d/w the patient. Given bactrim SS PO and Rx provided. Advised to f/u with Dr. Brownlee and to call his office tomorrow to arrange a home visit tomorrow, also instructed to f/u with his urologist at the [facility] in 1-2 days without fail. - Lab Interpretations I have reviewed the lab results: Yes - PA / DRY KILN OPERATOR / Resident Statement MD/DO has reviewed & agrees with the documentation as recorded. - Scribe Statement The provider has reviewed the documentation as recorded by the Yissel Webb Provider Scribe Attestation: All medical record entries made by the Yissel were at my direction and personally dictated by me. I have reviewed the chart and agree that the record accurately reflects my personal performance of the history, physical exam, medical decision making, and the department course for this patient. I have also personally directed, reviewed, and agree with the discharge instructions and disposition. Disposition/Present on Arrival - Present on Arrival Any Indicators Present on Arrival: No History of DVT/PE: No History of Uncontrolled Diabetes: No Urinary Catheter: No History of Decub. Ulcer: No History Surgical Site Infection Following: None - Disposition Have Diagnosis and Disposition been Completed?: Yes Diagnosis: Abdominal pain, Prostatitis, Anemia, GI bleed Disposition: HOME/ ROUTINE Disposition Time: 22:40 Patient Plan: Discharge Condition: STABLE Discharge Instructions (ExitCare): Acute Abdomen (Belly Pain), Prostatitis, Gastrointestinal Bleeding (DC), Normocytic Normochromic Anemia (DC) Additional Instructions: Follow up with Dr. Brownlee tomorrow without fail. Follow up with your urologist at the [facility] in 1-2 days without fail Take medication as prescribed. Return to the ER at any time for any new or worsening symptoms. Prescriptions: Sulfamethoxazole/Trimethoprim [Bactrim SS 400 mg-80 mg] 1 tab PO BID #20 tab Forms: [employer] (Sammarinese)
[2018-06-27 19:28] LABS: INR 1.07; PARTIAL THROMBOPLASTIN TIME 33.9 Seconds (25.1-36.5); PROTHROMBIN TIME 12.2 SECONDS (9.4-12.5)
[2018-06-27 19:29] LABS: BASO # 0.01 K/mm3 (0.0-2.0); BASO % 0.1 % (0.0-3.0); EOS % 0.4 % (1.5-5.0); GRAN # 7.56 (1.4-6.5); GRAN % 84.2 % (50.0-68.0); LYMPH # 0.8 (1.2-3.4); LYMPH % 9.4 % (22.0-35.0); MEAN CELL VOLUME 104.2 fl (80.0-105.0); MEAN CORPUSCULAR HEMOGLOBIN 33.8 pg (25.0-35.0); MEAN CORPUSCULAR HGB CONC 32.4 g/dl (31.0-37.0); MONO # 0.5 (0.1-0.6); MONO % 5.9 % (1.0-6.0); RBC 3.55 10^6/uL (3.5-6.1); RED CELL DISTRIBUTION WIDTH 14.6 % (11.5-14.5)
[2018-06-27 19:33] LABS: ALB/GLOB RATIO 0.9 (1.1-1.8); ALBUMIN 4.6 g/dL (3.0-4.8); CALCIUM 9.9 mg/dL (8.4-10.5)
[2018-06-27 20:50] VITALS: RESP 18; O2SAT 99
[2018-06-27] MEDS ORDERED: Tmp-Smz 800 mg-160 mg DS Tab PO STA (22:35)
[2018-06-27] MEDS ORDERED: Tmp-Smz 400 mg-80 mg SS Tab PO STA (22:41)
[2018-06-27 22:58] VITALS: BP 118/64; PULSE 64
--- NOTE | 2018-06-28 13:18 | US ---
Date of service: 06/27/2018 HISTORY: scrotal pain TECHNIQUE: Realtime sonography through the scrotum with color and doppler flow. COMPARISON: 05/01/2017. Testicular ultrasound. Summary of findings on the comparison examination: Unilateral, right orchitis. FINDINGS: RIGHT TESTICLE: Measures 1.7 x 4.2 cm. Normal echotexture and flow. RIGHT EPIDIDYMIS: Epididymal head measures 0.6 x 0.5 cm. Grossly unremarkable appearance with normal flow. LEFT TESTICLE: Measures 1.7 x 3.8 cm. Normal echotexture and flow. LEFT EPIDIDYMIS: Epididymal head measures 0.5 x 0.7 cm. Grossly unremarkable appearance with normal flow. HYDROCELE: None. VARICOCELE: None. OTHER FINDINGS: None. IMPRESSION: Negative study for epididymitis, orchitis, torsion or testicular mass. Concordant findings (preliminary report) provided by [email or web address].
== END 2018-06-27 22:49 | disposition home or self-care (01) ==
LOC: ED 17:19
DX: K92.2 Gastrointestinal hemorrhage, unspecified (principal); N41.9 Inflammatory disease of prostate, unspecified; D64.9 Anemia, unspecified; R10.9 Unspecified abdominal pain; Z85.46 Personal history of malignant neoplasm of prostate; E11.22 Type 2 diabetes mellitus with diabetic chronic kidney disease; I12.9 Hypertensive chronic kidney disease with stage 1 through stage 4 chronic kidney disease, or unspecified chronic kidney disease; N18.9 Chronic kidney disease, unspecified; Z99.2 Dependence on renal dialysis

== ENCOUNTER 2018-10-15 02:50 | Observation (INO) | payer MEDICARE, OTHER ==
[2018-10-15 03:04] VITALS: BMI 18.0
[2018-10-15 04:23] LABS: HEMOGLOBIN 10.7 g/dL (14.0-18.0); MEAN CORPUSCULAR HEMOGLOBIN 29.6 pg (25.0-35.0); MEAN CORPUSCULAR HGB CONC 32.1 g/dl (31.0-37.0); MEAN PLATELET VOLUME 9.1 fl (7.0-11.0); RBC 3.61 10^6/uL (3.5-6.1); WHITE BLOOD COUNT 7.7 10^3/uL (4.5-11.0)
[2018-10-15 04:27] LABS: MEAN CELL VOLUME 92.2 fl (80.0-105.0)
[2018-10-15 04:28] LABS: INR 1.23; PARTIAL THROMBOPLASTIN TIME 41.1 Seconds (26.9-38.3); PROTHROMBIN TIME 13.7 SECONDS (9.4-12.5)
[2018-10-15 04:42] LABS: TROPONIN I < 0.01 ng/mL
--- NOTE | 2018-10-15 04:44 | ED PDOC ---
Arrival/HPI - General Chief Complaint: Medical Clearance Time Seen by Provider: 10/15/18 03:20 Historian: Patient - History of Present Illness Narrative History of Present Illness (Text): 10/15/18 04:45 73 year old male, whose past medical history includes HIV, COPD, Vertigo, Diabetes, Prostate Cancer, ESRD on dialysis, presents to the emergency department complaining of tremors last evening. Patient states his hands started to shake uncontrollably. Patient denies any history of alcohol use. Patient denies any change in medication. Patient denies any history of fever, chills, vomiting, diarrhea, chest pain, shortness of breath, headache, or any other complaints. Time/Duration: Prior to Arrival Symptom Onset: Gradual Symptom Course: Unchanged Activities at Onset: Light Context: Home Past Medical History - Provider Review Nursing Documentation Reviewed: Yes - Infectious Disease Hx of Infectious Diseases: None - Tetanus Immunization Tetanus Immunization: Up to Date - Cardiac Hx Cardiac Disorders: Yes Hx Hypertension: Yes - Pulmonary Hx Respiratory Disorders: Yes Hx Chronic Obstructive Pulmonary Disease (COPD): Yes - Neurological Hx Neurological Disorder: No - HEENT Hx HEENT Disorder: No - Renal Hx Renal Disorder: Yes Hx Dialysis: Yes Date of Last Dialysis Treatment: 06/27/18 - Endocrine/Metabolic Hx Endocrine Disorders: Yes - Hematological/Oncological Hx Blood Disorders: Yes Hx Cancer: Yes - Integumentary Hx Dermatological Disorder: Yes - Musculoskeletal/Rheumatological Hx Musculoskeletal Disorders: Yes Hx Osteomyelitis: Yes - Gastrointestinal Hx Gastrointestinal Disorders: Yes Hx Gastroesophageal Reflux: Yes - Genitourinary/Gynecological Hx Genitourinary Disorders: Yes - Psychiatric Hx Psychophysiologic Disorder: No Hx Substance Use: No - Surgical History Other/Comment: R AKA - Anesthesia Hx Anesthesia: Yes Hx Anesthesia Reactions: No Hx Malignant Hyperthermia: No - Suicidal Assessment Feels Threatened In Home Enviroment: No Family/Social History - Physician Review Nursing Documentation Reviewed: Yes Family/Social History: No Known Family HX Smoking Status: Never Smoked Hx Alcohol Use: Yes Hx Substance Use: No Allergies/Home Meds Allergies/Adverse Reactions: Allergies banana Allergy (Verified 10/15/18 03:04) SWELLING shrimp Allergy (Verified 10/15/18 03:04) SWELLING Home Medications: Home Meds Medication Instructions Recorded Confirmed Cholecalciferol [Vitamin D 1000 IU] 1,000 units PO DAILY 12/08/17 10/15/18 Metoprolol Tartrate [Lopressor] 100 mg PO BID 01/25/18 10/15/18 Atorvastatin [Lipitor] 20 mg PO DAILY 06/27/18 10/15/18 Folic Acid/Vit B Complex and C 1 tab PO DAILY 06/27/18 10/15/18 [Renal Vitamin Tablet] Furosemide [Lasix] 40 mg PO DAILY 06/27/18 10/15/18 Sevelamer Carbonate 1 tab PO TID 06/27/18 10/15/18 Review of Systems - Physician Review All systems were reviewed & negative as marked: Yes - Review of Systems Constitutional: absent: Fevers, Night Sweats Respiratory: absent: SOB Cardiovascular: absent: Chest Pain Gastrointestinal: absent: Diarrhea, Vomiting Neurological: Other (Tremors). absent: Headache Physical Exam Vital Signs Reviewed: Yes Vital Signs Temp Pulse Resp BP Pulse Ox 10/15/18 03:16 97.4 F L 80 16 91/52 L 100 Temperature: Afebrile Blood Pressure: Hypotensive Pulse: Regular Respiratory Rate: Normal Appearance: Positive for: Well-Appearing, Non-Toxic, Comfortable Pain Distress: None Mental Status: Positive for: Alert and Oriented X 3 - Systems Exam Head: Present: Atraumatic, Normocephalic Pupils: Present: PERRL Extroacular Muscles: Present: EOMI Conjunctiva: Present: Normal Mouth: Present: Moist Mucous Membranes Neck: Present: Normal Range of Motion Respiratory/Chest: Present: Clear to Auscultation, Good Air Exchange. No: Respiratory Distress, Accessory Muscle Use Cardiovascular: Present: Regular Rate and Rhythm, Normal S1, S2. No: Murmurs Abdomen: No: Tenderness, Distention, Peritoneal Signs Back: Present: Normal Inspection Upper Extremity: Present: Normal Inspection, Neurovascularly Intact, Other (resting tremors bilaterally). No: Cyanosis, Edema Lower Extremity: Present: Normal Inspection, Neurovascularly Intact, Other (Right BKA). No: Edema Neurological: Present: GCS=15, CN II-XII Intact, Speech Normal Skin: Present: Warm, Dry, Normal Color. No: Rashes Psychiatric: Present: Alert, Oriented x 3, Normal Insight, Normal Concentration Medical Decision Making ED Course and Treatment: 10/15/18 04:54 Impression: 73 year old male presents with tremors Plan: -- EKG -- Labs -- Chest X-ray -- Reassess and disposition Prior Visits: Notes and results from previous visits were reviewed. Progress Notes: 10/15/18 05:00 Chest X-ray reviewed by me, shows: No acute process 10/15/18 05:12 EKG reviewed by me, shows: NSR @ 75bpm Anteroseptal infarct No STT wave changes 10/15/18 05:[address] Brownlee who accepts to his service. Would like Alessia on consult. - Lab Interpretations Lab Results: PT 13.7 SECONDS (9.4-12.5) H 10/15/18 04:07 INR 1.23 10/15/18 04:07 APTT 41.1 Seconds (26.9-38.3) H 10/15/18 04:07 Troponin I < 0.01 ng/mL D 10/15/18 04:07 - RAD Interpretation Radiology Orders: 10/15/18 03:28 CHEST PORTABLE [RAD] Stat - Scribe Statement The provider has reviewed the documentation as recorded by the Scribera Fischer Provider Scribe Attestation: All medical record entries made by the Scribe were at my direction and personally dictated by me. I have reviewed the chart and agree that the record accurately reflects my personal performance of the history, physical exam, medical decision making, and the department course for this patient. I have also personally directed, reviewed, and agree with the discharge instructions and disposition. Disposition/Present on Arrival - Present on Arrival Any Indicators Present on Arrival: No History of DVT/PE: No History of Uncontrolled Diabetes: No Urinary Catheter: No History of Decub. Ulcer: No History Surgical Site Infection Following: None - Disposition Have Diagnosis and Disposition been Completed?: Yes Diagnosis: ESRD (end stage renal disease) on dialysis, Continuous tremor Disposition: HOSPITALIZED Disposition Time: 06:11 Condition: STABLE Forms: [employer] (Senegalese)
[2018-10-15 05:28] LABS: ALB/GLOB RATIO 0.9 (1.1-1.8); ALBUMIN 4.1 g/dL (3.0-4.8); ALT/SGPT < 6 U/L (7-56); AST/SGOT 71 U/L (17-59); BLOOD UREA NITROGEN 75 mg/dL (7-21); CALCIUM 9.2 mg/dL (8.4-10.5); GFR NON-AFRICAN AMERICAN 4
--- NOTE | 2018-10-15 08:56 | CT ---
Date of service: 10/15/2018 PROCEDURE: CT HEAD WITHOUT CONTRAST. HISTORY: Tremors COMPARISON: MRI brain without contrast from 09/05/2017. TECHNIQUE: Axial computed tomography images were obtained through the head/brain without intravenous contrast. Radiation dose: Total exam DLP = 856.46 mGy-cm. This CT exam was performed using one or more of the following dose reduction techniques: Automated exposure control, adjustment of the mA and/or kV according to patient size, and/or use of iterative reconstruction technique. FINDINGS: HEMORRHAGE: No intracranial hemorrhage. BRAIN: There are mild chronic microangiopathic changes. There is no mass, mass effect or abnormal extra-axial fluid collection. There is no territorial infarction. The midline sagittal structures are normal. VENTRICLES: There is mild age-related global parenchymal volume loss and proportionate enlargement of the ventricles and cortical sulci. CALVARIUM: There is no calvarial fracture or extracranial soft tissue swelling. PARANASAL SINUSES: Predominantly clear. MASTOID AIR CELLS: Predominantly clear. OTHER FINDINGS: None. IMPRESSION: No acute intracranial abnormality. Mild chronic microangiopathic changes and mild age-related global parenchymal volume loss. A preliminary report was provided by [employer].
[2018-10-15] MEDS ORDERED: LAMIVUDINE 100 MG PO SCH (10:00)
[2018-10-15] MEDS ORDERED: SEVELAMER CARBONATE PO SCH (10:00)
[2018-10-15] MEDS: FOLIC ACID PO SCH (11:25)
[2018-10-15] MEDS: VIT B COMPLEX AND C PO SCH (11:25)
[2018-10-15] MEDS: Cholecalciferol 1,000 INTLU TAB PO SCH (11:26)
--- NOTE | 2018-10-15 11:38 | CARD ---
APPROVED REPORT Date of service: 10/15/2018 EKG Measurement Heart [id number] <Conclusion> Normal sinus rhythm Possible Left atrial enlargement Anteroseptal infarct, age undetermined Abnormal ECG
[2018-10-15 13:14] LABS: HEPATITIS B SURFACE AG Negative (NEGATIVE)
--- NOTE | 2018-10-15 13:34 | RAD ---
Date of service: 10/15/2018 HISTORY: tremors COMPARISON: 12/20/2017 FINDINGS: LUNGS: No active pulmonary disease. PLEURA: No significant pleural effusion identified, no pneumothorax apparent. CARDIOVASCULAR: No aortic atherosclerotic calcification present. Normal cardiac size. No pulmonary vascular congestion. OSSEOUS STRUCTURES: No significant abnormalities. VISUALIZED UPPER ABDOMEN: Normal. OTHER FINDINGS: None. IMPRESSION: No active disease.
[2018-10-15 14:50] VITALS: RESP 18
[2018-10-15] MEDS ORDERED: Pneumococcal 23-Valent Vaccine IM ONE (14:51)
[2018-10-15] MEDS ORDERED: Influenza Vaccine 60 mcg/0.5 mL SYR (4YR UP) IM ONE (14:51)
--- NOTE | 2018-10-15 18:06 | CON ---
DATE: 10/15/2018 NEUROLOGY CONSULTATION CHIEF COMPLAINT: Tremors of the body. HISTORY OF PRESENT ILLNESS: This is a 73-year-old man with history of HIV, COPD, vertigo, type 2 diabetes mellitus, prostate cancer, end-stage renal disease on hemodialysis, presented to the emergency room with tremors. In the evening the patient started to have shaking uncontrollably. Denies any history of alcohol abuse. Currently he is undergoing dialysis and I do not see any tremors of the upper extremities or lower extremities. He did have low blood pressure when he came in . Currently he is following simple commands, undergoing dialysis as we speak, and an elevated BUN of 75 and creatinine of 11.9. He is very deconditioned and has features of peripheral neuropathy on neuro exam. PAST MEDICAL HISTORY: As above. SOCIAL HISTORY: No illicit drug use, smoking or EtOH abuse. ALLERGIES: BANANA AND SHRIMP. FAMILY HISTORY: Noncontributory. REVIEW OF SYSTEMS: A 14-point review of systems is negative except as per HPI. PHYSICAL EXAMINATION VITAL SIGNS: Temperature 98.3, pulse rate 78, blood pressure 91/57, respiratory rate of 18, oxygen saturation 100% on room air. GENERAL: The patient is deconditioned. HEENT: Atraumatic and normocephalic. PERRLA. Extraocular muscles are intact. NECK: Supple. No JVD. No adenopathy noted. LUNGS: Clear to auscultation. No adventitious sounds. HEART: S1 and S2, normal rate and rhythm. No murmurs, rubs, or gallops. ABDOMEN: Soft, nontender, and nondistended. Bowel sounds are present. EXTREMITIES: No clubbing. No cyanosis. Peripheral pulses 2+ felt bilaterally. NEUROLOGIC: The patient is alert and oriented to person and place, not much to month or year. Recall after 5 minutes is 1/3. Poor attention span. Slow thought process. Speech is hyperphonic. No aphasia noted. Cranial nerves II through XII are intact. Motor; increased tone throughout. Moves all extremities with no pronator drift seen, just cachectic looking. Sensory; decreased light touch and pinprick up to the calves bilaterally. Decreased vibration at the toes. DTRs are 2+throughout and 1 at both knees and absent at the ankles. Coordination; [id number] is intact. No dysmetria noted. No tremors or asterixis noted on neuro exam. LABORATORY DATA: Sodium 134, potassium 4.0, chloride 88, carbon dioxide 28, BUN 75, creatinine 11.9, random glucose of 100.5. ASSESSMENT: 1. Generalized tremors or shaking of the extremities could be secondary to transient cerebral hypoperfusion to the brain from low systolic and diastolic blood pressures superimposing underlying metabolic component from end-stage renal disease. At this time, we recommend to monitor electrolytes and correct accordingly. 2. Acute systolic blood pressures to be 120s to 130s and diastolic 70s to 80s. 3. Delirium precautions. 4. We will hold off any medications for tremors since it is very subtle and continue current present metabolic management. Thank you for this consultation. Kelvin Aggarwal MD
--- NOTE | 2018-10-15 21:18 | HP ---
DATE OF EXAM: 10/15/2018 HISTORY OF PRESENT ILLNESS: Raza came in to the emergency room with a history of tremors and shaking, it would not leave him, he had it for 24 to 36 hours, it was uncontrollable, it was witnessed by his sister and she had brought him to the emergency room. He is a 73-year-old man with past medical history of HIV, COPD, vertigo, diabetes, prostate cancer, and end-stage renal disease, on hemodialysis. He also had multiple surgeries. He says COPD. He has hemodialysis. He has diabetes. He has had cancer. 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 He has GERD. He has a right above-knee amputation. No substance abuse. FAMILY HISTORY: No known family history. SOCIAL HISTORY: Nonsmoker. No drinking. No drugs. ALLERGIES: HE IS ALLERGIC TO BANANA AND SHRIMP. MEDICATIONS: He is on vitamin D, Lopressor, Lipitor, vitamins, Lasix, sevelamer, and other HIV drugs. REVIEW OF SYSTEMS: He has no vision or hearing changes. No shortness of breath. No chest pain. No nausea, vomiting, constipation, diarrhea, but he has persistent tremor of his hands. No headache. He is not sure why he is also having a speech issue that comes and goes. He is to be more fluent now, it is , cannot find his words. PHYSICAL EXAMINATION: VITAL SIGNS: 97.4 temperature, 80 pulse, 16 respiratory rate, 91/52 blood pressure, and 100% O2 sat. HEENT: Head is atraumatic and normocephalic. Throat is moist. Extraocular muscles are intact. NECK: Supple. HEART: Regular rate. LUNGS: Decreased breath sounds, but clear to auscultation. ABDOMEN: Soft and nontender. Positive bowel sounds. No guarding. No rebound. No CVA tenderness. EXTREMITIES: Have no edema. He has a right AKA. NEUROLOGIC: Alert and oriented x3. GCS is 15. Cranial nerves II through XII grossly intact. Speech is normal. Normal insight. Normal concentration. SKIN: For I could tell is intact. LABORATORY DATA: He had multiple tests done. CAT scan of the head did not show anything acute. He had a chest x-ray. EKG is normal sinus rhythm. Chest x-ray showed no active disease. We have blood tests done, 7.7 white count, 10.7 hemoglobin, 33.3 hematocrit with 336 platelets. INR is 1.23. Sodium 134, potassium 4.6, BUN 75, and creatinine 11.9, on dialysis. GFR is 4. Sugar is 100, calcium is 9.2, and total bili is 0.4. AST is 71, ALT is less than 6, and ammonia is less than 9. Lactate dehydrogenase is 387. Troponin I is less than 0.01. Total protein is 9. Serology is negative for hepatitis. ASSESSMENT AND PLAN: He will have a consult with Neurology and Infectious Disease and Renal. I am hoping to find out why he is having these tremors, hopefully He is in observation level of care at this time. He is here for acute onset tremors. Thank you very much. Parag Brownlee DO MTDAnna
[2018-10-16 07:28] VITALS: BP 107/60; PULSE 74; TEMP 98; O2SAT 96
[2018-10-16 07:46] LABS: MEAN CORPUSCULAR HGB CONC 30.1 g/dl (31.0-37.0); MEAN PLATELET VOLUME 9.7 fl (7.0-11.0); RBC 3.57 10^6/uL (3.5-6.1); RED CELL DISTRIBUTION WIDTH 18.8 % (11.5-14.5); WHITE BLOOD COUNT 6.2 10^3/uL (4.5-11.0)
[2018-10-16 08:09] LABS: ALB/GLOB RATIO 0.8 (1.1-1.8); ALBUMIN 3.5 g/dL (3.0-4.8); CALCIUM 8.8 mg/dL (8.4-10.5)
[2018-10-16] MEDS ORDERED: LAMIVUDINE 100 MG PO SCH (10:00)
[2018-10-16] MEDS: FOLIC ACID PO SCH (10:12)
[2018-10-16] MEDS: VIT B COMPLEX AND C PO SCH (10:12)
[2018-10-16] MEDS: Cholecalciferol 1,000 INTLU TAB PO SCH (10:18)
--- NOTE | 2018-10-16 22:12 | DS ---
HISTORY OF PRESENT ILLNESS: He is doing much better this morning. He is more appropriate. His speech is better. No more tremors. CAT scan of head was okay, nothing acute. Neuro did not add much to his picture, I think he is better. He had dialysis, which also made him better I think. PHYSICAL EXAMINATION: VITAL SIGNS: He has a 98 temperature, 74 pulse, 107/60 blood pressure, 18 respiratory rate, and 96% O2 sat. HEENT: Head is atraumatic and normocephalic. HEART: Regular rate. LUNGS: Decreased breath sounds, but clear. ABDOMEN: Soft. EXTREMITIES: No edema. He does have an AKA on the right. LABORATORY DATA: He has a white count of 6.2, hemoglobin 10, hematocrit 32.2, and platelets of 337. He has a sodium 135, potassium 4.7, BUN of 37, creatinine 6.7 better after dialysis, GFR is up to 8, sugar 74, and calcium 8.8. Total bili is 0.3, AST is 41, ALT is 12, and alk phos is 73 better. Total protein is 7.8. His troponin I is less than 0.01. ASSESSMENT AND PLAN: Overall, he did much better and I will discharge him home. He was on observation level of care. This could have been tremors versus transient ischemic attack, but we will watch him on the outpatient, house call and outpatient dialysis. Parag Brownlee DO
== END 2018-10-16 13:26 | disposition home or self-care (01) ==
LOC: ED 02:50 → ERH 06:11 → 5RSO 08:50
PROVIDERS: ADMIT Family Medicine; ATTEND Family Medicine
DX: R25.1 Tremor, unspecified (principal); N18.6 End stage renal disease; E11.22 Type 2 diabetes mellitus with diabetic chronic kidney disease; E11.42 Type 2 diabetes mellitus with diabetic polyneuropathy; I12.0 Hypertensive chronic kidney disease with stage 5 chronic kidney disease or end stage renal disease; J44.9 Chronic obstructive pulmonary disease, unspecified; Z21 Asymptomatic human immunodeficiency virus [HIV] infection status; Z99.2 Dependence on renal dialysis; K21.9 Gastro-esophageal reflux disease without esophagitis; Z85.46 Personal history of malignant neoplasm of prostate; Z89.611 Acquired absence of right leg above knee
CPT/HCPCS: 36415; 70450; 71045; 80053; 82140; 82550; 82948; 83615; 84484; 85027; 85610; 85730; 86706; 87340; 93005; 99284; G0378

== ENCOUNTER 2018-12-06 04:08 | Inpatient (IN) | payer MEDICARE, OTHER ==
--- NOTE | 2018-12-06 04:17 | ED PDOC ---
Arrival/HPI - General Time Seen by Provider: 12/06/18 04:10 Historian: Patient, Family (Sister) - History of Present Illness Narrative History of Present Illness (Text): 12/06/18 04:14 73 year old male whose past medical history includes HIV, COPD, Vertigo, Diabetes, Prostate Cancer, Kidney failure on dialysis patient (,Th,St) presents to the emergency department with tremors and alterd mental stauts. . Patient's sister states he has never had these symptoms before. as per sister, states found pt to "be having tremors " and "seizure like activity". upon, ed arrival pt noted to have tremors, able to intermittant respond to questions and follow commands. of note pt on esrd, unclear of last hd. also noted hiv, unclear cd4 viral load. HPI and ROS limited due to patient condition. PMD: Dr. Lugo Writer Technical Publications: Dr. Clemons Urologist: [facility] 12/06/18 05:04 Time/Duration: Prior to Arrival Symptom Onset: Sudden Symptom Course: Unchanged Activities at Onset: Light Context: Home Past Medical History - Provider Review Nursing Documentation Reviewed: Yes - Infectious Disease Hx of Infectious Diseases: None - Tetanus Immunization Tetanus Immunization: Up to Date - Cardiac Hx Cardiac Disorders: Yes Hx Hypertension: Yes Hx Peripheral Vascular Disease: Yes - Pulmonary Hx Respiratory Disorders: Yes Hx Chronic Obstructive Pulmonary Disease (COPD): Yes - Neurological Hx Neurological Disorder: No - HEENT Hx HEENT Disorder: No - Renal Hx Renal Disorder: Yes Hx Dialysis: Yes ([facility]) Date of Last Dialysis Treatment: 10/15/18 Hx Renal Failure: Yes - Endocrine/Metabolic Hx Endocrine Disorders: Yes - Hematological/Oncological Hx Blood Disorders: Yes Hx Cancer: Yes (PROSTATE CA) - Integumentary Hx Dermatological Disorder: Yes - Musculoskeletal/Rheumatological Hx Musculoskeletal Disorders: Yes (RIGHT BKA) Hx Falls: Yes Hx Osteomyelitis: Yes Hx Unsteady Gait: Yes - Gastrointestinal Hx Gastrointestinal Disorders: Yes (GI BLEED,H/O C DIFF 16-18) Hx Gastroesophageal Reflux: Yes - Genitourinary/Gynecological Hx Genitourinary Disorders: Yes (ANURIA) Hx Prostate Problems: Yes (PROSTATE CA) - Psychiatric Hx Psychophysiologic Disorder: No Hx Substance Use: No - Surgical History Other/Comment: R AKA - Anesthesia Hx Anesthesia: Yes Hx Anesthesia Reactions: No Hx Malignant Hyperthermia: No - Suicidal Assessment Feels Threatened In Home Enviroment: No Family/Social History - Physician Review Nursing Documentation Reviewed: Yes Family/Social History: No Known Family HX Smoking Status: Never Smoked Hx Alcohol Use: No Hx Substance Use: No Allergies/Home Meds Allergies/Adverse Reactions: Allergies banana Allergy (Verified 10/15/18 12:17) SWELLING shrimp Allergy (Verified 10/15/18 14:23) SWELLING PT STATES WHEN HE EATS OUTSIDE, HE HAS ALLERGIC RXN BUT WHEN HE COOKS IT HE DOES NOT HAVE ANY REACTION.STATES HE DEVEINS HIS SHRIMP. Home Medications: Home Meds Medication Instructions Recorded Confirmed Cholecalciferol [Vitamin D 1000 IU] 1,000 units PO DAILY 12/08/17 12/06/18 Metoprolol Tartrate [Lopressor] 100 mg PO BID 01/25/18 12/06/18 Atorvastatin [Lipitor] 20 mg PO DAILY 06/27/18 12/06/18 Folic Acid/Vit B Complex and C 1 tab PO DAILY 06/27/18 12/06/18 [Renal Vitamin Tablet] Furosemide [Lasix] 40 mg PO DAILY 06/27/18 12/06/18 Sevelamer Carbonate 1 tab PO TID 06/27/18 12/06/18 Review of Systems - Physician Review All systems were reviewed & negative as marked: Yes - Review of Systems Systems not reviewed;Unavailable: Acuity of Condition Neurological: Seizure Physical Exam - Physical Exam Physical Exam Limitations: Clinical Condition Vital Signs Reviewed: Yes Blood Pressure: Normal Pulse: Regular Respiratory Rate: Normal Appearance: Positive for: Comfortable, Cachectic Pain Distress: None Mental Status: Positive for: Lethargic Finger Stick Blood Glucose: 108 Medical Decision Making ED Course and Treatment: 12/06/18 04:18 Impression: 73 year old male presents with seizure-like activity/tremors/ ?seiuzre- 1mg ativan given with resolution. will ro underlying infecitous metabolic intracrnial etiology - labs imaging pending Plan: -- CT Head -- EKG -- Cardiac Iso, CMP, Mg -- CBC, Platelets -- Chest X-ray -- Urinalysis -- Reassess and disposition Prior Visits: Notes and results from previous visits were reviewed. Progress Notes: EKG Reviewed by me, shows: NSR @ 85bpm PVCs 12/06/18 05:06 noted wbc noted previous admission with sepsis. cxr neg. sister states pt does n ot make urine. given h/o of hiv, tremors/leukocytosis. will give 1 dose antibitocis as sepsis on differential. 12/06/18 06:53 s/p ativan tremors resolved. case discusse d wtih dr lugo acccepts for admission. pt sleepin ginnad. somulent s/p ativan, but easily arousable responds to questions. - RAD Interpretation Radiology Orders: 12/06/18 04:12 CHEST PORTABLE [RAD] Stat 12/06/18 04:13 HEAD W/O CONTRAST [CT] Stat - Scribe Statement The provider has reviewed the documentation as recorded by the Scribera Fischer Provider Scribe Attestation: All medical record entries made by the Scribe were at my direction and personally dictated by me. I have reviewed the chart and agree that the record accurately reflects my personal performance of the history, physical exam, medical decision making, and the department course for this patient. I have also personally directed, reviewed, and agree with the discharge instructions and disposition. Disposition/Present on Arrival - Present on Arrival Any Indicators Present on Arrival: No History of DVT/PE: No History of Uncontrolled Diabetes: No Urinary Catheter: No History Surgical Site Infection Following: None - Disposition Have Diagnosis and Disposition been Completed?: Yes Diagnosis: ESRD (end stage renal disease) on dialysis, HIV (human immunodeficiency virus infection), Altered mental status Disposition: HOSPITALIZED Disposition Time: 05:30 Condition: FAIR
[2018-12-06 04:49] LABS: INR 1.27; PARTIAL THROMBOPLASTIN TIME 43.2 Seconds (26.9-38.3); PROTHROMBIN TIME 14.1 SECONDS (9.4-12.5)
[2018-12-06 04:53] LABS: HEMOGLOBIN 10.8 g/dL (14.0-18.0); MEAN CELL VOLUME 103.1 fl (80.0-105.0); RBC 3.27 10^6/uL (3.5-6.1); RED CELL DISTRIBUTION WIDTH 19.7 % (11.5-14.5); WHITE BLOOD COUNT 13.9 10^3/uL (4.5-11.0)
[2018-12-06 04:54] LABS: BASO # 0.02 K/mm3 (0.0-2.0); BASO % 0.1 % (0.0-3.0); EOS # 0.2 (0.0-0.7); EOS % 1.7 % (1.5-5.0); LYMPH # 5.4 (1.2-3.4); LYMPH % 39.1 % (22.0-35.0); MONO % 14.4 % (1.0-6.0)
[2018-12-06 04:58] LABS: TROPONIN I 0.05 ng/mL
[2018-12-06 05:01] LABS: ALB/GLOB RATIO 0.8 (1.1-1.8); ALBUMIN 4.2 g/dL (3.0-4.8); ALT/SGPT < 6 U/L (7-56); AST/SGOT 65 U/L (17-59); BLOOD UREA NITROGEN 86 mg/dL (7-21); CALCIUM 9.6 mg/dL (8.4-10.5); GFR NON-AFRICAN AMERICAN 4
[2018-12-06] MEDS ORDERED: Vancomycin 1gm in NS 250ml 1 GM/250 ML BAG IVPB STA (05:04)
[2018-12-06] MEDS ORDERED: Piperacillin/Tazobact 3.375 gm 100 ML IVPB STA (05:04)
[2018-12-06 05:22] LABS: VENOUS BLOOD GAS BASE EXCESS 2.8 mmol/L (0.0-2.0); VENOUS BLOOD GAS PO2 80 mm/Hg (30-55); VENOUS BLOOD PH 7.31 (7.32-7.43)
--- NOTE | 2018-12-06 08:48 | CT ---
Date of service: 12/06/2018 PROCEDURE: CT HEAD WITHOUT CONTRAST. HISTORY: seizure COMPARISON: None available. TECHNIQUE: Axial computed tomography images were obtained through the head/brain without intravenous contrast. Radiation dose: Total exam DLP = 889.55 mGy-cm. This CT exam was performed using one or more of the following dose reduction techniques: Automated exposure control, adjustment of the mA and/or kV according to patient size, and/or use of iterative reconstruction technique. FINDINGS: HEMORRHAGE: No intracranial hemorrhage. BRAIN: No mass effect or edema. Mild atrophy. Mild microvascular changes VENTRICLES: Unremarkable. No hydrocephalus. CALVARIUM: Unremarkable. PARANASAL SINUSES: Unremarkable as visualized. No significant inflammatory changes. MASTOID AIR CELLS: Unremarkable as visualized. No inflammatory changes. OTHER FINDINGS: The report concurs with the preliminary [facility] report IMPRESSION: No acute intracranial findings
[2018-12-06 09:31] LABS: VENOUS BLOOD GAS BASE EXCESS 4.5 mmol/L (0.0-2.0); VENOUS BLOOD GAS PO2 77 mm/Hg (30-55); VENOUS BLOOD PH 7.42 (7.32-7.43)
--- NOTE | 2018-12-06 09:58 | RAD ---
Date of service: 12/06/2018 PROCEDURE: CHEST RADIOGRAPH, 1 VIEW HISTORY: parvez COMPARISON: 10/15/2018 FINDINGS: LUNGS: Clear. PLEURA: No pneumothorax or pleural fluid seen. CARDIOVASCULAR: No aortic atherosclerotic calcification present. Normal. OSSEOUS STRUCTURES: No significant abnormalities. VISUALIZED UPPER ABDOMEN: Normal. OTHER FINDINGS: Mild aortic tortuosity IMPRESSION: No active disease.
[2018-12-06] MEDS ORDERED: SEVELAMER CARBONATE PO SCH (10:00)
--- NOTE | 2018-12-06 13:30 | CP.PCM.CON ---
History of Present Illness - History of Present Illness History of Present Illness: Nephrology Consultation Note: Assessment: critical AMS ? etiology missed HD acute hypercapnic respi failure hx of prostate CA Hypertensive Chronic Kidney Disease (I12.9) ESRD on HD via permacath (TTS) Anemia (D64.9), HTN (I12.9) HIV on HAART, PVD s/p angioplasty s/p Rt AKA Plan plan for HD today then tomorrow as per TTS. nephrovite 1 tab/day PRBC as needed . last Hb 10.8. defer RESHMA for now continue with home dose of phosphorus binders as ordered Hypertension control with meds as ordered. Patient not on RAAS edyta, may add if needed check ammonia level Dose meds/antibiotics for ESRD status. Avoid fleets enema/magnesium based laxatives. Further work up/management as per primary team. Neuro following Thanks for allowing me to participate in care of your patient. Will follow patient with you. Please call if any Qs. had d/w team Dr Yandel Arechiga Office: [phone] CC: AMS reason for consult: ESRD HPI: Pt is a 73 y/o M with hx of HIV on HAART, PVD s/p angioplasty, Rt AKA, hypertension (10-15 years), ESRD on HD (via permacath) TTS @ [facility], left foot toe amputations, prostate CA presented with AMS and tremors. pt missed HD yesterday renal consult for ESRD, HTN management pt unable to provide any hx ROS: unable to obtain from pt as he is AMS state Physical Examination: General Appearance: comfortable, in no acute respiratory distress, facial muscles wasted. lethargic, drowsy. mostly non communciative Vitals reviewed and noted as below Head; Atraumatic, normocephalic ENT: no ulcers no thrush. Tongue is midline dry. Oropharynx: no rash or ulcers. EYES: Pupils are equal, round and reactive to light accommodation. Eye muscles and extraocular movement intact. Sclera is anicteric. Neck; supple no lymphadenopathy, no thyromegaly or bruit Lungs: Normal respiratory rate/effort. Breath sounds bilateral clear Heart: Normal rate. s1s2 normal. No rub or gallop. Extremities: no edema. No varicose veins. s/p Rt AKA Neurological: Patient is lethargic, drowsy but arousable (momentarily). mostly non communciative Skin: Warm and dry. Normal turgor. Palpitation: Normal elasticity for age. Abdomen: Abdomen is soft. Bowel sounds +. There is no abdominal tenderness, no guarding/rigidity no organomegaly Psych: unable MSK: Digits and nails normal, left foot toe amputations in past. Rt AKA. : kidney or bladder not palpable Access: left AVF Labs/imaging/EKG reviewed. Past medical history, past surgical history, family history, social history, allergy reviewed and noted as below Family hx: sister was on dialysis. Rest non-contributory Past Patient History - Infectious Disease Hx of Infectious Diseases: None - Tetanus Immunizations Tetanus Immunization: Up to Date - Past Medical History & Family History Past Medical History?: Yes - Past Social History Smoking Status: Never Smoked - CARDIAC Hx Cardiac Disorders: Yes Hx Hypertension: Yes Hx Peripheral Vascular Disease: Yes - PULMONARY Hx Respiratory Disorders: Yes Hx Chronic Obstructive Pulmonary Disease (COPD): Yes - NEUROLOGICAL Hx Neurological Disorder: No - HEENT Hx HEENT Problems: No - RENAL Hx Chronic Kidney Disease: Yes Hx Dialysis: Yes ([facility]) Date of Last Dialysis Treatment: 10/15/18 Hx Renal Failure: Yes - ENDOCRINE/METABOLIC Hx Endocrine Disorders: Yes - HEMATOLOGICAL/ONCOLOGICAL Hx Blood Disorders: Yes Hx Cancer: Yes (PROSTATE CA) - INTEGUMENTARY Hx Dermatological Problems: Yes - MUSCULOSKELETAL/RHEUMATOLOGICAL Hx Musculoskeletal Disorders: Yes (RIGHT BKA) Hx Falls: Yes Hx Osteomyelitis: Yes Hx Unsteady Gait: Yes - GASTROINTESTINAL Hx Gastrointestinal Disorders: Yes (GI BLEED,H/O C DIFF 1-16-18) Hx Gastroesophageal Reflux: Yes - GENITOURINARY/GYNECOLOGICAL Hx Genitourinary Disorders: Yes (ANURIA) Hx Prostate Problems: Yes (PROSTATE CA) - PSYCHIATRIC Hx Psychophysiologic Disorder: No Hx Substance Use: No - SURGICAL HISTORY Other/Comment: R AKA - ANESTHESIA Hx Anesthesia: Yes Hx Anesthesia Reactions: No Hx Malignant Hyperthermia: No Meds Allergies/Adverse Reactions: Allergies Allergy/AdvReac Type Severity Reaction Status Date / Time banana Allergy SWELLING Verified 10/15/18 12:17 shrimp Allergy SWELLING Verified 10/15/18 14:23 - Medications Medications: Current Medications Abacavir Sulfate (Ziagen) 300 mg PO DAILY [facility]; Protocol Atorvastatin Calcium (Lipitor) 20 mg PO DAILY [facility] Meropenem 250 mg/ Sodium (Chloride) 100 mls @ 100 mls/hr IVPB Q12H [facility]; Protocol Stop: 12/13/18 06:46 Last Admin: 12/06/18 10:43 Dose: 100 mls/hr Metoprolol Tartrate (Lopressor) 100 mg PO BID [facility] Non-Formulary Medication (Dolutegravir Sodium [Tivicay]) 50 mg PO DAILY [facility] Non-Formulary Medication (Lamivudine [Epivir Hbv]) 100 mg PO DAILY [facility] Sevelamer HCl (Renagel) 800 mg PO TID [facility] Tamsulosin HCl (Flomax) 0.4 mg PO DAILY [facility] Results - Vital Signs Recent Vital Signs: Last Vital Signs Temp 97.5 F L 12/06/18 10:05 Pulse 76 12/06/18 13:06 Resp 18 12/06/18 13:06 BP 129/73 12/06/18 13:06 Pulse Ox 100 12/06/18 13:06 - Labs Result Diagrams: 12/06/18 04:13 12/06/18 04:13 Labs: Laboratory Results - last 24 hr 12/06/18 12/06/18 12/06/18 04:13 04:13 04:13 WBC 13.9 H D RBC 3.27 L Hgb 10.8 L Hct 33.7 L MCV 103.1 D MCH 33.0 MCHC 32.0 RDW 19.7 H Plt Count 414 MPV 10.0 Neut % (Auto) 44.7 L Lymph % (Auto) 39.1 H [place] % (Auto) 14.4 H Eos % (Auto) 1.7 Baso % (Auto) 0.1 Lymph # (Auto) 5.4 H [place] # (Auto) 2.0 H Eos # (Auto) 0.2 Baso # (Auto) 0.02 Absolute Neuts (auto) 6.22 PT 14.1 H INR 1.27 APTT 43.2 H pO2 VBG pH VBG pCO2 VBG HCO3 VBG Total CO2 VBG O2 Sat (Calc) VBG Base Excess VBG Potassium Glucose Lactate FiO2 Sodium 140 Potassium 4.6 Chloride 90 L Carbon Dioxide 28 Anion Gap 27 H BUN 86 H Creatinine 11.3 H* D Est GFR ( Amer) 5 Est GFR (Non-Af Amer) 4 Random Glucose 113 H Calcium 9.6 Magnesium 2.5 H Total Bilirubin 0.6 AST 65 H D ALT < 6 L Alkaline Phosphatase 85 Lactate Dehydrogenase 500 Total Creatine Kinase 51 Troponin I 0.05 D Total Protein 9.6 H Albumin 4.2 Globulin 5.4 Albumin/Globulin Ratio 0.8 L Venous Blood Potassium Alcohol, Quantitative 12/06/18 12/06/18 12/06/18 04:13 05:05 09:20 WBC RBC Hgb Hct MCV MCH MCHC RDW Plt Count MPV Neut % (Auto) Lymph % (Auto) [place] % (Auto) Eos % (Auto) Baso % (Auto) Lymph # (Auto) [place] # (Auto) Eos # (Auto) Baso # (Auto) Absolute Neuts (auto) PT INR APTT pO2 80 H 77 H VBG pH 7.31 L 7.42 VBG pCO2 61.0 H 46.0 VBG HCO3 30.7 H 29.8 H VBG Total CO2 32.6 H 31.2 H VBG O2 Sat (Calc) 90.6 H 94.0 H VBG Base Excess 2.8 H 4.5 H VBG Potassium 4.9 5.4 H Glucose 109 94 Lactate 2.1 1.0 FiO2 21.0 21.0 Sodium 138.0 135.0 Potassium Chloride 93.0 L 97.0 L Carbon Dioxide Anion Gap BUN Creatinine Est GFR ( Amer) Est GFR (Non-Af Amer) Random Glucose Calcium Magnesium Total Bilirubin AST ALT Alkaline Phosphatase Lactate Dehydrogenase Total Creatine Kinase Troponin I Total Protein Albumin Globulin Albumin/Globulin Ratio Venous Blood Potassium 4.9 5.4 H Alcohol, Quantitative < 10
--- NOTE | 2018-12-06 14:00 | CON ---
DATE: 12/06/2018 NEUROLOGY CONSULTATION CHIEF COMPLAINT: Tremor. HISTORY OF PRESENT ILLNESS: This is a 73-year-old man with history of HIV, COPD, vertigo, type 2 diabetes mellitus, prostate cancer, end-stage renal disease on hemodialysis, history of tremors in the past and transient cerebral hypoperfusion and generalized tremors during dialysis who presents to the hospital for tremors and change in mental status and was lethargic than usual. It is not seeming like seizure like activity. CAT scan of the head showed no acute intracranial abnormality. He follows to simple questions and follows simple commands. He has elevated BUN and creatinine and indicating that he possibly needs further dialysis today and has elevated WBC count at 13.9 possible source of infection, which esterase could be possible UTI. His tremors currently does not seem very metabolic or asterixis, he has a mild essential type tremor, but given his lethargicness, we will hold off anything like Depakote or primidone for now and we will assess that as an outpatient when he is more in attentive state. ALLERGIES: BANANA AND SHRIMP. PAST MEDICAL HISTORY: As above. SOCIAL HISTORY: No illicit drug use, smoking or EtOH abuse. FAMILY HISTORY: Noncontributory. LABORATORY DATA: Sodium 140, potassium 4.6, chloride 90, carbon dioxide of 28, BUN of 86, creatinine of 11.3, random glucose of 113. PHYSICAL EXAMINATION: VITAL SIGNS: Temperature 97.5, pulse rate 77, blood pressure 123/70, respiratory rate of 18, oxygen saturation 99% on room air. GENERAL: The patient is seen up in bed, no acute distress. HEENT: Atraumatic and normocephalic. PERRLA. Extraocular muscles are intact. NECK: Supple. No JVD. No adenopathy noted. LUNGS: Clear to auscultation. No adventitious sounds. HEART: S1 and S2, normal rate and rhythm. No murmurs, rubs, or gallops. ABDOMEN: Soft, nontender, and nondistended. Bowel sounds are present. EXTREMITIES: No clubbing. No cyanosis. Peripheral pulses 2+ felt bilaterally. NEUROLOGIC: The patient is alert and oriented to person and place, not much to month and year. Recall after 5 minutes 0/3. Poor attention span. Slow thought process. Speech is hypophonic, but no aphasia noted. Cranial nerves II through XII are intact. Motor exam, slight increased tone throughout. Moves all extremities. No pronator drift seen. Very cachectic looking. Sensory, decreased light touch and pinprick up to the calves bilaterally. Decreased vibration at the toes. DTRs are 2+throughout and 1 at both knees and absent at the ankles. Coordination; [id number] is intact. No dysmetria noted. No tremors or asterixis noted on neuro exam. Mild essential type tremor upon action in both hands, but not as intense. ASSESSMENT: Generalized tremors could be secondary to metabolic component from his end-stage renal disease with underlying possible infection. He has a mild essential tremor, which at this time given his lethargicness, we will avoid any medications like Depakote or primidone for now and we will reassess that as an outpatient. At this time, keep his systolic blood pressure in 120s to 130s and diastolic 70s to 80s, delirium precautions and monitor electrolytes and correct accordingly. Thank you for this consult. Kelvin Aggarwal MD
--- NOTE | 2018-12-06 18:36 | HP ---
DATE OF EXAM: 12/06/2018 HISTORY OF PRESENT ILLNESS: I know Raza for many years. I do house calls on him. He is a 73-year-old man who presented to the emergency room with tremors and altered mental status. His sister, who I know very well brought him in. He was found to have tremors, seizure like activity, it is kind of a new thing for him lately. He is on dialysis. PAST MEDICAL HISTORY: HIV, COPD, vertigo, diabetes, prostate cancer, kidney failure on dialysis Sunday, , and Sunday and now he has got a change in mentation. He has also hypertension, COPD, prostate cancer history. He has a right BKA. He has got falls, osteomyelitis history, unstable gait. He has a GI bleed history, history of C. diff, GERD. I know he had prostate cancer. FAMILY HISTORY: Unknown. SOCIAL HISTORY: Never smoked. No drinking. No drugs. ALLERGIES: HE IS ALLERGIC TO BANANA AND SHRIMP. MEDICATIONS: He is on a lot of medications; vitamin D, Lopressor, Lipitor, vitamins, Lasix, sevelamer, and multiple HIV medications. REVIEW OF SYSTEMS: He is presently not able to speak and talk. He is out of it, cannot arouse him. It is possible he had a seizure with a postictal situation or he might be septic. He is not alert at this time. He is sleeping, it looks like I cannot arouse him, very lethargic. Blood sugar was 108. PHYSICAL EXAMINATION HEENT: Head is atraumatic and normocephalic. HEART: Regular rate. LUNGS: Decreased breath sounds. Poor inspiration, but clear. ABDOMEN: Soft, nontender. Positive bowel sounds. EXTREMITIES: He has a right BKA. No edema. SKIN: As far as I could tell is intact. No apparent rashes or ulcers. LABORATORY DATA: He has a CT of the head, no acute intracranial pathology. He had lab tests done; alcohol is less than 10. A 13.9 white count and elevated, 10.8 hemoglobin, 32.7 hematocrit, with 414 platelets. INR is 1.27, lipase is 2.1. A 140 sodium, potassium 4.6, BUN 86, creatinine 11.3 on dialysis, GFR is 4, sugar is 113, calcium is 9.6, magnesium 2.5, total bili is 0.6, AST is 65, ALT is less than 6, alk phos is 85. Lactate dehydrogenase is 500, total creatinine kinase is 51. Troponin I is 0.05, total protein is 9.6, albumin is 4.2. ASSESSMENT: He has been put in the hospital with a possible seizure versus sepsis picture. He has got end-stage renal disease on dialysis, human immunodeficiency virus, altered mental status. PLAN: He is going to have multiple consults. He is going to consult with Renal, Neurology and Infectious Disease. He is on Ativan. I put him back on his regular medications. He was started on vancomycin, he had some Zosyn and then he was placed on Merrem by Infectious Disease. We will check his labs tomorrow, hopefully they will improve. Continue aggressive treatment and care. Parag Brownlee DO
[2018-12-06 19:12] VITALS: BMI 19.1
[2018-12-06] MEDS: LAMIVUDINE 100 MG PO SCH (19:55)
--- NOTE | 2018-12-06 21:44 | CP.PCM.CON ---
History of Present Illness - History of Present Illness History of Present Illness: 73 year old male with PMH of HTN, prostate CA, HIV ([facility], last CD4 count on our records 03/2016 is 349 with VL < 1.3 log), history of osteomyelitis of left first toe S/P amputation (2015), gout, history of left foot ulcers, history of pyelonephritis with E. coli bacteremia, S/P left foot 3rd digit chronic osteomyelitis S/P amputation and debridement, severe PAD S/P angioplasty of the left tibial artery was brought in to [facility] because of tremors as well as some confusion. The patient is sleepy but easily arousable, but is having some tremors of his face with some stuttering of speech noted. The patient denies headache or dizziness, no chest pain, no SOB, no dysphagia, no sore throat, no cough, no abdominal pain, no diarrhea, no dysuria. In the ED, he was noted to have leukocytosis and Infectious Diseases consult is requested to further evaluate and manage. Review of Systems - Review of Systems All systems: reviewed and no additional remarkable complaints except (as per HPI) Past Patient History - Infectious Disease Hx of Infectious Diseases: None - Tetanus Immunizations Tetanus Immunization: Up to Date - Past Medical History & Family History Past Medical History?: Yes - Past Social History Smoking Status: Never Smoked - CARDIAC Hx Cardiac Disorders: Yes Hx Hypertension: Yes Hx Peripheral Vascular Disease: Yes - PULMONARY Hx Respiratory Disorders: Yes Hx Chronic Obstructive Pulmonary Disease (COPD): Yes - NEUROLOGICAL Hx Neurological Disorder: No - HEENT Hx HEENT Problems: No - RENAL Hx Chronic Kidney Disease: Yes Hx Dialysis: Yes ([facility]) Date of Last Dialysis Treatment: 10/15/18 Hx Renal Failure: Yes - ENDOCRINE/METABOLIC Hx Endocrine Disorders: Yes - HEMATOLOGICAL/ONCOLOGICAL Hx Blood Disorders: Yes Hx Cancer: Yes (PROSTATE CA) - INTEGUMENTARY Hx Dermatological Problems: Yes - MUSCULOSKELETAL/RHEUMATOLOGICAL Hx Musculoskeletal Disorders: Yes (RIGHT BKA) Hx Falls: Yes Hx Osteomyelitis: Yes Hx Unsteady Gait: Yes - GASTROINTESTINAL Hx Gastrointestinal Disorders: Yes (GI BLEED,H/O C DIFF -16-18) Hx Gastroesophageal Reflux: Yes - GENITOURINARY/GYNECOLOGICAL Hx Genitourinary Disorders: Yes (ANURIA) Hx Prostate Problems: Yes (PROSTATE CA) - PSYCHIATRIC Hx Psychophysiologic Disorder: No Hx Substance Use: No - SURGICAL HISTORY Other/Comment: R AKA - ANESTHESIA Hx Anesthesia: Yes Hx Anesthesia Reactions: No Hx Malignant Hyperthermia: No Meds Allergies/Adverse Reactions: Allergies Allergy/AdvReac Type Severity Reaction Status Date / Time banana Allergy SWELLING Verified 10/15/18 12:17 shrimp Allergy SWELLING Verified 10/15/18 14:23 Physical Exam - Constitutional Appears: Chronically Ill - Head Exam Head Exam: NORMAL INSPECTION - Neck Exam Neck exam: Negative for: Meningismus - Respiratory Exam Respiratory Exam: Decreased Breath Sounds - Cardiovascular Exam Cardiovascular Exam: +S1, +S2 - GI/Abdominal Exam GI & Abdominal Exam: Soft. absent: Tenderness Results - Vital Signs Recent Vital Signs: Last Vital Signs Temp 97.7 F 12/06/18 04:15 Pulse 83 12/06/18 05:26 Resp 20 12/06/18 05:26 BP 152/87 H 12/06/18 05:26 Pulse Ox 99 12/06/18 05:26 - Labs Result Diagrams: 12/06/18 04:13 12/06/18 04:13 Labs: Laboratory Results - last 24 hr 12/06/18 12/06/18 12/06/18 04:13 04:13 04:13 WBC 13.9 H D RBC 3.27 L Hgb 10.8 L Hct 33.7 L MCV 103.1 D MCH 33.0 MCHC 32.0 RDW 19.7 H Plt Count 414 MPV 10.0 Neut % (Auto) 44.7 L Lymph % (Auto) 39.1 H [place] % (Auto) 14.4 H Eos % (Auto) 1.7 Baso % (Auto) 0.1 Lymph # (Auto) 5.4 H [place] # (Auto) 2.0 H Eos # (Auto) 0.2 Baso # (Auto) 0.02 Absolute Neuts (auto) 6.22 PT 14.1 H INR 1.27 APTT 43.2 H pO2 VBG pH VBG pCO2 VBG HCO3 VBG Total CO2 VBG O2 Sat (Calc) VBG Base Excess VBG Potassium Glucose Lactate FiO2 Sodium 140 Potassium 4.6 Chloride 90 L Carbon Dioxide 28 Anion Gap 27 H BUN 86 H Creatinine 11.3 H* D Est GFR ( Amer) 5 Est GFR (Non-Af Amer) 4 Random Glucose 113 H Calcium 9.6 Magnesium 2.5 H Total Bilirubin 0.6 AST 65 H D ALT < 6 L Alkaline Phosphatase 85 Lactate Dehydrogenase 500 Total Creatine Kinase 51 Troponin I 0.05 D Total Protein 9.6 H Albumin 4.2 Globulin 5.4 Albumin/Globulin Ratio 0.8 L Venous Blood Potassium Alcohol, Quantitative 12/06/18 12/06/18 04:13 05:05 WBC RBC Hgb Hct MCV MCH MCHC RDW Plt Count MPV Neut % (Auto) Lymph % (Auto) [place] % (Auto) Eos % (Auto) Baso % (Auto) Lymph # (Auto) [place] # (Auto) Eos # (Auto) Baso # (Auto) Absolute Neuts (auto) PT INR APTT pO2 80 H VBG pH 7.31 L VBG pCO2 61.0 H VBG HCO3 30.7 H VBG Total CO2 32.6 H VBG O2 Sat (Calc) 90.6 H VBG Base Excess 2.8 H VBG Potassium 4.9 Glucose 109 Lactate 2.1 FiO2 21.0 Sodium 138.0 Potassium Chloride 93.0 L Carbon Dioxide Anion Gap BUN Creatinine Est GFR ( Amer) Est GFR (Non-Af Amer) Random Glucose Calcium Magnesium Total Bilirubin AST ALT Alkaline Phosphatase Lactate Dehydrogenase Total Creatine Kinase Troponin I Total Protein Albumin Globulin Albumin/Globulin Ratio Venous Blood Potassium 4.9 Alcohol, Quantitative < 10 Assessment & Plan - Assessment and Plan (Free Text) Plan: Assessment systemic inflammatory response syndrome, R/O sepsis source not clear history of sepsis due to ESBL E. coli bacteremia, consider HD catheter associated bacteremia s/P removal of right sided catheter and placement of new left anterior chest wall catheter history of small bowel obstruction S/P ex-lap, adhesiolysis, repair of umbilical hernia and appendectomy S/P UTI severe PAD S/P angioplasty of the left tibial artery S/P right AKA UTI with MRSA and Strep viridans systemic viral illness with Influenza history of left foot 3rd digit chronic osteomyelitis S/P amputation and debridement right sided nephrolithiasis history of severe sepsis with acute on chronic renal failure probably due to pyelonephritis with E. coli bacteremia history of C. diff. associated diarrhea Charcot foot, left history of left 2nd toe dry gangrene Chronic renal failure on hemodialysis HTN prostate CA HIV (patient goes to the [place] with last CD4 count here at [facility] 03/2016 349 and virus load < 1.3 log) history of osteomyelitis of left first toe S/P amputation (2015) gout history of left foot ulcers Plan gave a dose of IV Vancomycin and started Merrem and will follow up blood, urine cx; reviewed CXR and CT head follow up recommendations of Neurology for the tremors continue cART for chronic HIV infection will monitor clinically
--- NOTE | 2018-12-06 23:57 | CARD ---
APPROVED REPORT Date of service: 12/06/2018 EKG Measurement Heart [id number] <Conclusion> Sinus rhythm with sinus arrhythmia with frequent premature ventricular complexes Possible Left atrial enlargement Borderline ECG
[2018-12-07] MEDS: Multivitamin Vitamin B Complex (Nephro-Vite) Tab PO SCH (08:11)
[2018-12-07 09:26] LABS: HEMOGLOBIN 10.2 g/dL (14.0-18.0); MEAN CELL VOLUME 101.2 fl (80.0-105.0); MEAN CORPUSCULAR HEMOGLOBIN 31.3 pg (25.0-35.0); MEAN CORPUSCULAR HGB CONC 30.9 g/dl (31.0-37.0); MEAN PLATELET VOLUME 9.5 fl (7.0-11.0); RBC 3.26 10^6/uL (3.5-6.1); RED CELL DISTRIBUTION WIDTH 19.3 % (11.5-14.5); WHITE BLOOD COUNT 9.1 10^3/uL (4.5-11.0)
[2018-12-07 10:23] LABS: ALB/GLOB RATIO 0.8 (1.1-1.8); ALBUMIN 3.6 g/dL (3.0-4.8); CALCIUM 8.7 mg/dL (8.4-10.5)
[2018-12-07] MEDS: LAMIVUDINE 100 MG PO SCH (10:46)
[2018-12-07] MEDS ORDERED: Albumin Human 25% (12.5 gm/50 ml) IV PRN (10:49)
--- NOTE | 2018-12-07 12:03 | PN ---
DATE: 12/07/2018 SUBJECTIVE: I saw him in dialysis this morning. He is doing a lot better. He is talking much better. He is still mildly mentally. He came in very altered yesterday, but is talk and speech is much better. He is not shaking as much he was doing when he came in. He is alert and almost comprehensive back to his normal self, MEDICATIONS: He is on Ativan, dolutegravir, Flomax, Epivir, Lipitor, metoprolol, Merrem IV, vitamins, vancomycin, thiamine, and Zosyn. PHYSICAL EXAMINATION: VITAL SIGNS: He has a 97.5 temp, 77 pulse, 93/58 blood pressure, 20 respiratory rate and 98% O2 sat on room air. HEENT: Head is atraumatic and normocephalic. Throat is moist. NECK: Supple. HEART: Regular rate. LUNGS: Decreased breath sounds. EXTREMITIES: Left leg is okay no edema. He has having some left ankle issues, we are calling heart doctor to take a look at him. His right BKA is stable. He is being treated for SIRS, altered mental status, tremors. He has multiple doctors see him Infectious Disease, Renal and Neurology. LABORATORY DATA: He has a white count was 13.9 when he came in it is down to 9.1 with antibiotics, hemoglobin 10.2, hematocrit 33 and platelets of 366. He has a pending chemistry. We will continue with aggressive treatment and care with IV antibiotics. We got physical therapy to look at him. Now that he is awaking up and following commands and hopefully he will continue to improve. Parag Brownlee DO MTDD
--- NOTE | 2018-12-07 12:11 | CP.PCM.PN ---
Subjective - Date & Time of Evaluation Date of Evaluation: 12/07/18 Time of Evaluation: 08:20 - Subjective Subjective: Still feels weak and tired, no fevers. Objective - Vital Signs/Intake and Output Vital Signs (last 24 hours): Temp Pulse Resp BP Pulse Ox 97.3 F L 81 19 100/58 L 94 L 12/06/18 18:00 12/06/18 19:54 12/06/18 18:00 12/06/18 19:54 12/06/18 18:00 Intake and Output: 12/06/18 12/07/18 18:59 06:59 Intake Total 0 Output Total 0 Balance 0 - Medications Medications: Current Medications Abacavir Sulfate (Ziagen) 300 mg PO DAILY [facility]; Protocol Last Admin: 12/06/18 19:59 Dose: Not Given Atorvastatin Calcium (Lipitor) 20 mg PO DAILY [facility] Last Admin: 12/06/18 19:58 Dose: Not Given Meropenem 250 mg/ Sodium (Chloride) 100 mls @ 100 mls/hr IVPB Q12H [facility]; Protocol Stop: 12/13/18 06:46 Last Admin: 12/06/18 20:09 Dose: 100 mls/hr Metoprolol Tartrate (Lopressor) 100 mg PO BID [facility] Last Admin: 12/06/18 19:54 Dose: Not Given Non-Formulary Medication (Dolutegravir Sodium [Tivicay]) 50 mg PO DAILY [facility] Last Admin: 12/06/18 19:55 Dose: Not Given Non-Formulary Medication (Lamivudine [Epivir Hbv]) 100 mg PO DAILY [facility] Last Admin: 12/06/18 19:55 Dose: Not Given Sevelamer HCl (Renagel) 800 mg PO TID [facility] Last Admin: 12/06/18 20:03 Dose: Not Given Tamsulosin HCl (Flomax) 0.4 mg PO DAILY [facility] Last Admin: 12/06/18 19:58 Dose: Not Given Thiamine HCl (Vitamin B1 Tab) 100 mg PO DAILY [facility] Stop: 12/12/18 10:01 Last Admin: 12/06/18 19:59 Dose: Not Given Vitamin B Complex/Vit C/Folic Acid (Nephro-Christel) 1 tab PO 0800 [facility] - Labs Labs: 12/06/18 04:13 12/06/18 04:13 PT 14.1 SECONDS (9.4-12.5) H 12/06/18 04:13 INR 1.27 12/06/18 04:13 APTT 43.2 Seconds (26.9-38.3) H 12/06/18 04:13 - Constitutional Appears: Chronically Ill - Head Exam Head Exam: NORMAL INSPECTION - Respiratory Exam Respiratory Exam: Decreased Breath Sounds - Cardiovascular Exam Cardiovascular Exam: +S1, +S2 - GI/Abdominal Exam GI & Abdominal Exam: Soft. absent: Tenderness Assessment and Plan - Assessment and Plan (Free Text) Plan: Assessment systemic inflammatory response syndrome, R/O sepsis source not clear history of sepsis due to ESBL E. coli bacteremia, consider HD catheter associated bacteremia s/P removal of right sided catheter and placement of new left anterior chest wall catheter history of small bowel obstruction S/P ex-lap, adhesiolysis, repair of umbilical hernia and appendectomy S/P UTI severe PAD S/P angioplasty of the left tibial artery S/P right AKA UTI with MRSA and Strep viridans systemic viral illness with Influenza history of left foot 3rd digit chronic osteomyelitis S/P amputation and debridement right sided nephrolithiasis history of severe sepsis with acute on chronic renal failure probably due to pyelonephritis with E. coli bacteremia history of C. diff. associated diarrhea Charcot foot, left history of left 2nd toe dry gangrene Chronic renal failure on hemodialysis HTN prostate CA HIV (patient goes to the ID with [place] CD4 [place] [facility] [place] 349 and virus load < 1.3 log) history of osteomyelitis of left first toe S/P amputation (2015) gout history of left foot ulcers Plan gave a dose of IV Vancomycin and continue Merrem day 2 and will follow up blood, urine cx; reviewed CXR and CT head follow up recommendations of Neurology for the tremors continue cART for chronic HIV infection will continue to monitor clinically
--- NOTE | 2018-12-07 12:22 | CP.PCM.PN ---
Subjective - Date & Time of Evaluation Date of Evaluation: 12/07/18 Time of Evaluation: 12:21 - Subjective Subjective: Nephrology Consultation Note: Assessment: stable AMS ? etiology missed HD acute hypercapnic respi failure hx of prostate CA Hypertensive Chronic Kidney Disease (I12.9) ESRD on HD via permacath (TTS) Anemia (D64.9), HTN (I12.9) HIV on HAART, PVD s/p angioplasty s/p Rt AKA Plan plan for HD today as per TTS schedule. nephrovite 1 tab/day PRBC as needed . last Hb >10. defer RESHMA for now continue with home dose of phosphorus binders as ordered Hypertension control with meds as ordered. Patient not on RAAS edyta, may add if needed. BP on low side at present. Dose meds/antibiotics for ESRD status. Avoid fleets enema/magnesium based laxatives. Further work up/management as per primary team. Neuro ID following Thanks for allowing me to participate in care of your patient. Will follow patient with you. Please call if any Qs. had d/w team Dr Yandel Arechiga Office: [phone] CC: AMS reason for consult: ESRD HPI: Pt is a 73 y/o M with hx of HIV on HAART, PVD s/p angioplasty, Rt AKA, hypertension (10-15 years), ESRD on HD (via permacath) TTS @ [facility] [place], left foot toe amputations, prostate CA presented with AMS and tremors. pt missed HD yesterday renal consult for ESRD, HTN management pt unable to provide any hx ROS: feels better. says had tremors. no Cp/SOB Physical Examination: seen during dialysis General Appearance: comfortable, in no acute respiratory distress, facial muscles wasted. Vitals reviewed and noted as below Head; Atraumatic, normocephalic ENT: no ulcers no thrush. Tongue is midline dry. Oropharynx: no rash or ulcers. EYES: Pupils are equal, round and reactive to light accommodation. Eye muscles and extraocular movement intact. Sclera is anicteric. Neck; supple no lymphadenopathy, no thyromegaly or bruit Lungs: Normal respiratory rate/effort. Breath sounds bilateral clear Heart: Normal rate. s1s2 normal. No rub or gallop. Extremities: no edema. No varicose veins. s/p Rt AKA Neurological: Patient is alert awake today follow commands Skin: Warm and dry. Normal turgor. Palpitation: Normal elasticity for age. Abdomen: Abdomen is soft. Bowel sounds +. There is no abdominal tenderness, no guarding/rigidity no organomegaly Psych: limited insight MSK: Digits and nails normal, left foot toe amputations in past. Rt AKA. : kidney or bladder not palpable Access: left AVF Labs/imaging/EKG reviewed. Past medical history, past surgical history, family history, social history, allergy reviewed and noted as below Family hx: sister was on dialysis. Rest non-contributory Objective - Vital Signs/Intake and Output Vital Signs (last 24 hours): Temp Pulse Resp BP Pulse Ox 97.5 F L 77 20 93/58 L 98 12/07/18 06:00 12/07/18 06:00 12/07/18 06:00 12/07/18 06:00 12/07/18 06:00 Intake and Output: 12/07/18 12/07/18 06:59 18:59 Intake Total 560 Output Total 0 Balance 560 - Medications Medications: Current Medications Abacavir Sulfate (Ziagen) 300 mg PO DAILY [facility]; Protocol Last Admin: 12/06/18 19:59 Dose: Not Given Albumin Human (Albumin Human 25% (12.5 Gm/50 Ml)) 25 gm IV TTS PRN PRN Reason: Other Atorvastatin Calcium (Lipitor) 20 mg PO DAILY [facility] Last Admin: 12/06/18 19:58 Dose: Not Given Meropenem 250 mg/ Sodium (Chloride) 100 mls @ 100 mls/hr IVPB Q12H [facility]; Protocol Stop: 12/13/18 06:46 Last Admin: 12/07/18 06:09 Dose: 100 mls/hr Metoprolol Tartrate (Lopressor) 100 mg PO BID [facility] Last Admin: 12/07/18 10:46 Dose: Not Given Non-Formulary Medication (Dolutegravir Sodium [Tivicay]) 50 mg PO DAILY [facility] Last Admin: 12/07/18 10:46 Dose: Not Given Non-Formulary Medication (Lamivudine [Epivir Hbv]) 100 mg PO DAILY [facility] Last Admin: 12/07/18 10:46 Dose: Not Given Sevelamer HCl (Renagel) 800 mg PO TID [facility] Last Admin: 12/07/18 10:47 Dose: Not Given Tamsulosin HCl (Flomax) 0.4 mg PO DAILY [facility] Last Admin: 12/06/18 19:58 Dose: Not Given Thiamine HCl (Vitamin B1 Tab) 100 mg PO DAILY [facility] Stop: 12/12/18 10:01 Last Admin: 12/06/18 19:59 Dose: Not Given Vitamin B Complex/Vit C/Folic Acid (Nephro-Christel) 1 tab PO 0800 [facility] Last Admin: 12/07/18 08:11 Dose: 1 tab - Labs Labs: 12/07/18 09:00 12/07/18 09:00 PT 14.1 SECONDS (9.4-12.5) H 12/06/18 04:13 INR 1.27 12/06/18 04:13 APTT 43.2 Seconds (26.9-38.3) H 12/06/18 04:13
[2018-12-08 07:23] LABS: HEMOGLOBIN 10.3 g/dL (14.0-18.0); MEAN CELL VOLUME 101.2 fl (80.0-105.0); MEAN CORPUSCULAR HEMOGLOBIN 30.9 pg (25.0-35.0); MEAN CORPUSCULAR HGB CONC 30.6 g/dl (31.0-37.0); RBC 3.33 10^6/uL (3.5-6.1); RED CELL DISTRIBUTION WIDTH 18.9 % (11.5-14.5); WHITE BLOOD COUNT 8.8 10^3/uL (4.5-11.0)
[2018-12-08 07:40] LABS: ALB/GLOB RATIO 0.7 (1.1-1.8); ALBUMIN 3.5 g/dL (3.0-4.8); ALT/SGPT < 6 U/L (7-56); AST/SGOT 34 U/L (17-59); BLOOD UREA NITROGEN 30 mg/dL (7-21); CALCIUM 8.5 mg/dL (8.4-10.5); GFR NON-AFRICAN AMERICAN 12
[2018-12-08] MEDS: Multivitamin Vitamin B Complex (Nephro-Vite) Tab PO SCH (10:29)
[2018-12-08] MEDS: LAMIVUDINE 100 MG PO SCH (10:29)
--- NOTE | 2018-12-08 11:00 | CP.PCM.CON ---
<Femi Monroe - Last Filed: 12/08/18 10:55> History of Present Illness - History of Present Illness History of Present Illness: Podiatry Consult Note for Dr. Dunn/Paulette 73M PMH HIV, COPD, Vertigo, Diabetes, Prostate Cancer, Kidney failure on dialysis patient (,,) seen at bedside for left heel pain. Patient states that pain has been present for several weeks. Denies any trauma to the area or any causative factors. Patient is AAO x 3 and NAD. Denies any acute overnight events. Denies any further pedal complaints. Denies any recent N/V/F/C/CP/SOB/D Review of Systems - Review of Systems All systems: reviewed and no additional remarkable complaints except Review of Systems: as per HPI Past Patient History - Infectious Disease Hx of Infectious Diseases: None - Tetanus Immunizations Tetanus Immunization: Up to Date - Past Medical History & Family History Past Medical History?: Yes - Past Social History Smoking Status: Never Smoked - CARDIAC Hx Cardiac Disorders: Yes Hx Hypertension: Yes Hx Peripheral Vascular Disease: Yes - PULMONARY Hx Respiratory Disorders: Yes Hx Chronic Obstructive Pulmonary Disease (COPD): Yes - NEUROLOGICAL Hx Neurological Disorder: No - HEENT Hx HEENT Problems: No - RENAL Hx Chronic Kidney Disease: Yes Hx Dialysis: Yes ([facility] Date of Last Dialysis Treatment: 10/15/18 Hx Renal Failure: Yes - ENDOCRINE/METABOLIC Hx Endocrine Disorders: Yes - HEMATOLOGICAL/ONCOLOGICAL Hx Blood Disorders: Yes Hx Cancer: Yes (PROSTATE CA) - INTEGUMENTARY Hx Dermatological Problems: Yes - MUSCULOSKELETAL/RHEUMATOLOGICAL Hx Musculoskeletal Disorders: Yes (RIGHT BKA) Hx Falls: Yes Hx Osteomyelitis: Yes Hx Unsteady Gait: Yes - GASTROINTESTINAL Hx Gastrointestinal Disorders: Yes (GI BLEED,H/O C DIFF 1-16-18) Hx Gastroesophageal Reflux: Yes - GENITOURINARY/GYNECOLOGICAL Hx Genitourinary Disorders: Yes (ANURIA) Hx Prostate Problems: Yes (PROSTATE CA) - PSYCHIATRIC Hx Psychophysiologic Disorder: No Hx Substance Use: No - SURGICAL HISTORY Other/Comment: R AKA - ANESTHESIA Hx Anesthesia: Yes Hx Anesthesia Reactions: No Hx Malignant Hyperthermia: No Meds Allergies/Adverse Reactions: Allergies Allergy/AdvReac Type Severity Reaction Status Date / Time banana Allergy SWELLING Verified 10/15/18 12:17 shrimp Allergy SWELLING Verified 10/15/18 14:23 - Medications Medications: Current Medications Abacavir Sulfate (Ziagen) 300 mg PO DAILY [facility]; Protocol Last Admin: 12/08/18 10:31 Dose: 300 mg Albumin Human (Albumin Human 25% (12.5 Gm/50 Ml)) 25 gm IV TTS PRN PRN Reason: Other Atorvastatin Calcium (Lipitor) 20 mg PO DAILY [facility] Last Admin: 12/08/18 10:29 Dose: 20 mg Meropenem 250 mg/ Sodium (Chloride) 100 mls @ 100 mls/hr IVPB Q12H [facility]; Protocol Stop: 12/13/18 06:46 Last Admin: 12/08/18 06:11 Dose: 100 mls/hr Metoprolol Tartrate (Lopressor) 100 mg PO BID [facility] Last Admin: 12/08/18 10:31 Dose: 100 mg Non-Formulary Medication (Dolutegravir Sodium [Tivicay]) 50 mg PO DAILY [facility] Last Admin: 12/08/18 10:29 Dose: Not Given Non-Formulary Medication (Lamivudine [Epivir Hbv]) 100 mg PO DAILY [facility] Last Admin: 12/08/18 10:29 Dose: Not Given Sevelamer HCl (Renagel) 800 mg PO TID [facility] Last Admin: 12/08/18 10:31 Dose: 800 mg Tamsulosin HCl (Flomax) 0.4 mg PO DAILY [facility] Last Admin: 12/08/18 10:31 Dose: 0.4 mg Thiamine HCl (Vitamin B1 Tab) 100 mg PO DAILY [facility] Stop: 12/12/18 10:01 Last Admin: 12/08/18 10:30 Dose: 100 mg Vitamin B Complex/Vit C/Folic Acid (Nephro-Christel) 1 tab PO 0800 [facility] Last Admin: 12/08/18 10:29 Dose: 1 tab Physical Exam - Constitutional Appears: Well, Non-toxic, No Acute Distress - Extremities Exam Additional comments: LE focused exam: Vasc: DP/PT pulses faintly palpable 1/4. Skin temperature warm to warm from proximal to distal. CFT < 3 seonds to all digits. No edema noted to foot or leg Neuro: Epicritic and protective sensation grossly diminished Derm: No open lesions, wounds, maceration, xerosis, abnormal pigmentation or abnormal growths noted. DTI appreciated to left heel MSK: Pain on palpation of left heel. Charcot deformity with collapse of midfoot arch appreciated. Right BKA noted - Neurological Exam Neurological exam: Alert, Oriented x3 - Psychiatric Exam Psychiatric exam: Normal Affect, Normal Mood Results - Vital Signs Recent Vital Signs: Last Vital Signs Temp 97.6 F 12/08/18 06:00 Pulse 85 12/08/18 10:31 Resp 20 12/08/18 06:00 BP 115/70 12/08/18 10:31 Pulse Ox 94 L 12/08/18 06:00 - Labs Result Diagrams: 12/08/18 06:00 12/08/18 06:00 Labs: Laboratory Results - last 24 hr 12/07/18 12/07/18 12/07/18 07:49 09:00 16:43 WBC RBC Hgb Hct MCV MCH MCHC RDW Plt Count MPV Sodium Potassium 4.0 Chloride Carbon Dioxide Anion Gap BUN Creatinine Est GFR ( Amer) Est GFR (Non-Af Amer) POC Glucose (mg/dL) 86 96 Random Glucose Calcium Total Bilirubin AST ALT Alkaline Phosphatase Total Protein Albumin Globulin Albumin/Globulin Ratio 12/07/18 12/08/18 12/08/18 21:54 06:00 06:00 WBC 8.8 RBC 3.33 L Hgb 10.3 L Hct 33.7 L MCV 101.2 MCH 30.9 MCHC 30.6 L RDW 18.9 H Plt Count 353 MPV 10.0 Sodium 136 Potassium 4.5 Chloride 99 Carbon Dioxide 27 Anion Gap 15 BUN 30 H Creatinine 4.9 H Est GFR ( Amer) 14 Est GFR (Non-Af Amer) 12 POC Glucose (mg/dL) 101 Random Glucose 84 Calcium 8.5 Total Bilirubin 0.4 AST 34 ALT < 6 L Alkaline Phosphatase 74 Total Protein 8.2 Albumin 3.5 Globulin 4.7 Albumin/Globulin Ratio 0.7 L 12/08/18 07:41 WBC RBC Hgb Hct MCV MCH MCHC RDW Plt Count MPV Sodium Potassium Chloride Carbon Dioxide Anion Gap BUN Creatinine Est GFR ( Amer) Est GFR (Non-Af Amer) POC Glucose (mg/dL) 88 Random Glucose Calcium Total Bilirubin AST ALT Alkaline Phosphatase Total Protein Albumin Globulin Albumin/Globulin Ratio Assessment & Plan - Assessment and Plan (Free Text) Assessment: 73M seen for left heel pain Plan: Patient seen and evaluated Plan discussed with Dr. Arloro Afebrile, absent leukocytosis Multipodus boot ordered No plan for surgical intervention at this time Podiatry will continue to follow while patient in house - Date & Time Date: 12/08/18 Time: 11:04 <Jerrod Dunn - Last Filed: 12/10/18 08:26> Meds - Medications Medications: Current Medications Abacavir Sulfate (Ziagen) 300 mg PO DAILY [facility]; Protocol Last Admin: 12/09/18 11:19 Dose: 300 mg Albumin Human (Albumin Human 25% (12.5 Gm/50 Ml)) 25 gm IV TTS PRN PRN Reason: Other Amoxicillin/Clavulanate Potassium (Augmentin 500 Mg-125 Mg Tab) 1 tab PO DAILY [facility]; Protocol Last Admin: 12/09/18 18:07 Dose: 1 tab Atorvastatin Calcium (Lipitor) 20 mg PO DAILY [facility] Last Admin: 12/09/18 11:20 Dose: 20 mg Metoprolol Tartrate (Lopressor) 25 mg PO BID [facility] Last Admin: 12/09/18 18:08 Dose: Not Given Non-Formulary Medication (Dolutegravir Sodium [Tivicay]) 50 mg PO DAILY [facility] Last Admin: 12/09/18 10:55 Dose: Not Given Non-Formulary Medication (Lamivudine [Epivir Hbv]) 100 mg PO DAILY [facility] Last Admin: 12/09/18 10:55 Dose: Not Given Sevelamer HCl (Renagel) 800 mg PO TID [facility] Last Admin: 12/09/18 18:07 Dose: 800 mg Tamsulosin HCl (Flomax) 0.4 mg PO DAILY [facility] Last Admin: 12/09/18 11:20 Dose: 0.4 mg Thiamine HCl (Vitamin B1 Tab) 100 mg PO DAILY [facility] Stop: 12/12/18 10:01 Last Admin: 12/09/18 11:20 Dose: 100 mg Vitamin B Complex/Vit C/Folic Acid (Nephro-Christel) 1 tab PO 0800 [facility] Last Admin: 12/09/18 11:19 Dose: 1 tab Results - Vital Signs Recent Vital Signs: Last Vital Signs Temp 98.2 F 12/10/18 06:00 Pulse 72 12/10/18 06:00 Resp 18 12/10/18 06:00 BP 118/66 12/10/18 06:00 Pulse Ox 97 12/10/18 06:00 - Labs Result Diagrams: 12/10/18 06:00 12/10/18 06:00 Labs: Laboratory Results - last 24 hr 12/09/18 12/09/18 12/09/18 07:30 08:02 11:45 WBC RBC Hgb Hct MCV MCH MCHC RDW Plt Count MPV Sodium 133 Potassium 4.9 Chloride 99 Carbon Dioxide 20 L Anion Gap 19 BUN 51 H Creatinine 6.7 H Est GFR ( Amer) 10 Est GFR (Non-Af Amer) 8 POC Glucose (mg/dL) 92 130 H Random Glucose 72 Calcium 8.5 Total Bilirubin 0.4 AST 58 ALT 7 Alkaline Phosphatase 96 Total Protein 7.9 Albumin 3.4 Globulin 4.5 Albumin/Globulin Ratio 0.8 L 12/09/18 12/09/18 12/09/18 16:17 19:21 19:21 WBC 10.6 RBC 3.06 L Hgb 9.5 L Hct 30.7 L MCV 100.3 MCH 31.0 MCHC 30.9 L RDW 18.8 H Plt Count 360 MPV 9.7 Sodium 132 Potassium 4.2 Chloride 92 L Carbon Dioxide 25 Anion Gap 18 BUN 58 H Creatinine 7.5 H* Est GFR ( Amer) 9 Est GFR (Non-Af Amer) 7 POC Glucose (mg/dL) 113 H Random Glucose 78 Calcium 8.4 Total Bilirubin 0.3 AST 23 ALT < 6 L Alkaline Phosphatase 97 Total Protein 7.5 Albumin 3.3 Globulin 4.2 Albumin/Globulin Ratio 0.8 L 12/09/18 12/10/18 12/10/18 21:13 06:00 06:00 WBC 10.6 RBC 3.22 L Hgb 9.9 L Hct 31.9 L MCV 99.1 MCH 30.7 MCHC 31.0 RDW 18.5 H Plt Count 382 MPV 9.6 Sodium 129 L Potassium 4.6 Chloride 94 L Carbon Dioxide 23 Anion Gap 17 BUN 68 H Creatinine 7.9 H* Est GFR ( Amer) 8 Est GFR (Non-Af Amer) 7 POC Glucose (mg/dL) 118 H Random Glucose 77 Calcium 8.2 L Total Bilirubin 0.3 AST 38 ALT 10 Alkaline Phosphatase 92 Total Protein 7.2 Albumin 3.1 Globulin 4.1 Albumin/Globulin Ratio 0.8 L Attending/Attestation - Attestation I have personally seen and examined this patient.: Yes I have fully participated in the care of the patient.: Yes I have reviewed all pertinent clinical information: Yes
--- NOTE | 2018-12-08 11:48 | CP.PCM.PN ---
Subjective - Date & Time of Evaluation Date of Evaluation: 12/08/18 Time of Evaluation: 11:48 - Subjective Subjective: Nephrology Consultation Note: Assessment: stable AMS ? etiology missed HD acute hypercapnic respi failure hx of prostate CA Hypertensive Chronic Kidney Disease (I12.9) ESRD on HD via permacath (TTS) Anemia (D64.9), HTN (I12.9) HIV on HAART, PVD s/p angioplasty s/p Rt AKA Plan plan for HD as per TTS schedule. nephrovite 1 tab/day PRBC as needed . last Hb >10. defer RESHMA for now continue with home dose of phosphorus binders as ordered Hypertension control with meds as ordered. Patient not on RAAS edyta, may add if needed. BP on low side at present. Dose meds/antibiotics for ESRD status. Avoid fleets enema/magnesium based laxatives. Further work up/management as per primary team. Neuro ID following Thanks for allowing me to participate in care of your patient. Will follow patient with you. Please call if any Qs. had d/w team Dr Yandel Arechiga Office: [phone] CC: AMS reason for consult: ESRD HPI: Pt is a 73 y/o M with hx of HIV on HAART, PVD s/p angioplasty, Rt AKA, hypertension (10-15 years), [place]D on HD (via permacath) [place] [facility] [place], prostate CA presented with AMS and tremors. pt missed HD yesterday renal consult for ESRD, HTN management pt unable to provide any hx ROS: feels better. says had tremors but not now. no Cp/SOB Physical Examination: General Appearance: comfortable, in no acute respiratory distress, facial muscles wasted. Vitals reviewed and noted as below Head; Atraumatic, normocephalic ENT: no ulcers no thrush. Tongue is midline dry. Oropharynx: no rash or ulcers. EYES: Pupils are equal, round and reactive to light accommodation. Eye muscles and extraocular movement intact. Sclera is anicteric. Neck; supple no lymphadenopathy, no thyromegaly or bruit Lungs: Normal respiratory rate/effort. Breath sounds bilateral clear Heart: Normal rate. s1s2 normal. No rub or gallop. Extremities: no edema. No varicose veins. s/p Rt AKA Neurological: Patient is alert awake today follow commands Skin: Warm and dry. Normal turgor. Palpitation: Normal elasticity for age. Abdomen: Abdomen is soft. Bowel sounds +. There is no abdominal tenderness, no guarding/rigidity no organomegaly Psych: limited insight MSK: Digits and nails normal, left foot toe amputations in past. Rt AKA. : kidney or bladder not palpable Access: left AVF Labs/imaging/EKG reviewed. Past medical history, past surgical history, family history, social history, allergy reviewed and noted as below Family hx: sister was on dialysis. Rest non-contributory Objective - Vital Signs/Intake and Output Vital Signs (last 24 hours): Temp Pulse Resp BP Pulse Ox 97.6 F 85 20 115/70 94 L 12/08/18 06:00 12/08/18 10:31 12/08/18 06:00 12/08/18 10:31 12/08/18 06:00 Intake and Output: 12/08/18 12/08/18 06:59 18:59 Intake Total 120 200 Balance 120 200 - Medications Medications: Current Medications Abacavir Sulfate (Ziagen) 300 mg PO DAILY [facility]; Protocol Last Admin: 12/08/18 10:31 Dose: 300 mg Albumin Human (Albumin Human 25% (12.5 Gm/50 Ml)) 25 gm IV TTS PRN PRN Reason: Other Atorvastatin Calcium (Lipitor) 20 mg PO DAILY [facility] Last Admin: 12/08/18 10:29 Dose: 20 mg Meropenem 250 mg/ Sodium (Chloride) 100 mls @ 100 mls/hr IVPB Q12H [facility]; Protocol Stop: 12/13/18 06:46 Last Admin: 12/08/18 06:11 Dose: 100 mls/hr Metoprolol Tartrate (Lopressor) 100 mg PO BID [facility] Last Admin: 12/08/18 10:31 Dose: 100 mg Non-Formulary Medication (Dolutegravir Sodium [Tivicay]) 50 mg PO DAILY [facility] Last Admin: 12/08/18 10:29 Dose: Not Given Non-Formulary Medication (Lamivudine [Epivir Hbv]) 100 mg PO DAILY [facility] Last Admin: 12/08/18 10:29 Dose: Not Given Sevelamer HCl (Renagel) 800 mg PO TID [facility] Last Admin: 12/08/18 10:31 Dose: 800 mg Tamsulosin HCl (Flomax) 0.4 mg PO DAILY [facility] Last Admin: 12/08/18 10:31 Dose: 0.4 mg Thiamine HCl (Vitamin B1 Tab) 100 mg PO DAILY [facility] Stop: 12/12/18 10:01 Last Admin: 12/08/18 10:30 Dose: 100 mg Vitamin B Complex/Vit C/Folic Acid (Nephro-Christel) 1 tab PO 0800 [facility] Last Admin: 12/08/18 10:29 Dose: 1 tab - Labs Labs: 12/08/18 06:00 12/08/18 06:00 PT 14.1 SECONDS (9.4-12.5) H 12/06/18 04:13 INR 1.27 12/06/18 04:13 APTT 43.2 Seconds (26.9-38.3) H 12/06/18 04:13
--- NOTE | 2018-12-08 16:05 | PN ---
DATE: 12/08/2018 SUBJECTIVE: I saw him resting comfortably in bed. He slept well last night. He is eating a little bit better. He is feeling a little bit better. He is talking better. I do not see any tremors at this time resting or intention. He is on albumin, dolutegravir, Flomax, lamivudine, Lipitor, metoprolol, Merrem, vitamins, Renagel, vitamins, Ziagen. PHYSICAL EXAMINATION: VITAL SIGNS: He has a 97.6 temperature, 75 pulse, 113/67 blood pressure, 20 respiratory rate, 94% O2 sat. GENERAL: He is much more alert, looking at me. HEAD: Atraumatic and normocephalic. Eyes are clear. Throat is moist. NECK: Supple. HEART: Regular rate. LUNGS: Decreased breath sounds. ABDOMEN: Soft, nontender, positive bowel sounds. EXTREMITIES. Right BKA. No tremors of the extremities as for the time I am with him. LABORATORY DATA: He has a white count 8.8, hemoglobin 10.3, hematocrit 33.7, platelets of 353. 136 sodium, potassium 4.5, BUN is 30, creatinine 4.9 after dialysis, GFR is 12, sugar is 88,calcium is 8.5, total bili is 0.4. AST is 34, ALT is less than 6, alk phos is 74, total protein is 8.2. He is improving. He is being seen by Renal, Podiatry, Infectious Disease, Neurology. Continue IV antibiotics. If he continues to do well, possibility of discharging him in the next day or two is possible. He might need therapy; physical therapy. We need to see how he does over the next time in next therapy, he refused the first-time they came to see him. Continue aggressive treatment and care of Raza Sagastume who had tremors, altered mental status, picture, end-stage renal disease, history of right BKA. Parag Brownlee DO MTDD
--- NOTE | 2018-12-08 22:00 | PN ---
DATE: 12/08/2018 SUBJECTIVE: The patient is in bed, in no acute distress, nontoxic. No fevers and no chills. The patient was seen earlier today in 264, bed 1. PHYSICAL EXAMINATION: VITAL SIGNS: Temperature of 98, blood pressure is 120/70, respiratory rate of 16, and heart rate of 91. HEENT: Unremarkable. NECK: Supple. LUNGS: Have decreased breath sounds. HEART: Normal S1 and S2. ABDOMEN: Soft and nontender. LABORATORY EXAMINATION: White count of 8.8, hemoglobin of 10, BUN of 30 and creatinine of 4.9. Urinalysis is noted. Toxicology value is noted. Microbiology reveals the blood cultures are negative. Review of orders reveals the patient to be on abacavir, meropenem, dolutegravir. ASSESSMENT AND PLAN: This is a 73-year-old male with systemic inflammatory response syndrome, history of sepsis due to extended-spectrum B-lactamase Escherichia coli bacteremia secondary to hemodialysis catheter associated bacteremia, status post removal of right-sided catheter, placement of a new anterior chest wall catheter and positive human immunodeficiency virus, undetectable viral load, currently on Ativan, vancomycin, meropenem, human immunodeficiency virus medications pending panculture. The patient did not have any fevers on this hospitalization, did have leukocytosis, tachycardia with systemic inflammatory response syndrome criteria with negative blood cultures thus far. Chest x-ray which is reported to be negative, clear lungs, negative chest x-ray. We will follow with you. Cesar Flowers MD
[2018-12-09 07:52] LABS: HEMOGLOBIN 11.2 g/dL (14.0-18.0); MEAN CELL VOLUME 103.1 fl (80.0-105.0); MEAN CORPUSCULAR HEMOGLOBIN 31.1 pg (25.0-35.0); MEAN CORPUSCULAR HGB CONC 30.2 g/dl (31.0-37.0); MEAN PLATELET VOLUME 10.2 fl (7.0-11.0); RBC 3.6 10^6/uL (3.5-6.1); WHITE BLOOD COUNT 10.2 10^3/uL (4.5-11.0)
[2018-12-09 09:39] LABS: ALB/GLOB RATIO 0.8 (1.1-1.8); ALBUMIN 3.4 g/dL (3.0-4.8); CALCIUM 8.5 mg/dL (8.4-10.5)
--- NOTE | 2018-12-09 10:29 | CP.PCM.PN ---
Subjective - Date & Time of Evaluation Date of Evaluation: 12/09/18 Time of Evaluation: 10:27 - Subjective Subjective: Podiatry Consult Note for Dr. Dunn/Paulette 73M seen at bedside with Dr. Caldwell for left heel pain. Patient states that pain has been present for several weeks. Denies any trauma to the area or any causative factors. Patient is AAO x 3 and NAD. Denies any acute overnight events. Denies any further pedal complaints. Denies any recent N/V/F/C/CP/SOB/D Objective - Vital Signs/Intake and Output Vital Signs (last 24 hours): Temp Pulse Resp BP Pulse Ox 98.2 F 77 19 106/58 L 96 12/09/18 06:00 12/09/18 06:00 12/09/18 06:00 12/09/18 06:00 12/09/18 06:00 Intake and Output: 12/09/18 12/09/18 06:59 18:59 Intake Total 700 Balance 700 - Medications Medications: Current Medications Abacavir Sulfate (Ziagen) 300 mg PO DAILY [facility]; Protocol Last Admin: 12/08/18 10:31 Dose: 300 mg Albumin Human (Albumin Human 25% (12.5 Gm/50 Ml)) 25 gm IV TTS PRN PRN Reason: Other Atorvastatin Calcium (Lipitor) 20 mg PO DAILY [facility] Last Admin: 12/08/18 10:29 Dose: 20 mg Meropenem 250 mg/ Sodium (Chloride) 100 mls @ 100 mls/hr IVPB Q12H [facility]; Protocol Stop: 12/13/18 06:46 Last Admin: 12/09/18 06:47 Dose: 100 mls/hr Metoprolol Tartrate (Lopressor) 25 mg PO BID [facility] Non-Formulary Medication (Dolutegravir Sodium [Tivicay]) 50 mg PO DAILY [facility] Last Admin: 12/08/18 10:29 Dose: Not Given Non-Formulary Medication (Lamivudine [Epivir Hbv]) 100 mg PO DAILY [facility] Last Admin: 12/08/18 10:29 Dose: Not Given Sevelamer HCl (Renagel) 800 mg PO TID [facility] Last Admin: 12/08/18 17:53 Dose: 800 mg Tamsulosin HCl (Flomax) 0.4 mg PO DAILY [facility] Last Admin: 12/08/18 10:31 Dose: 0.4 mg Thiamine HCl (Vitamin B1 Tab) 100 mg PO DAILY [facility] Stop: 12/12/18 10:01 Last Admin: 12/08/18 10:30 Dose: 100 mg Vitamin B Complex/Vit C/Folic Acid (Nephro-Christel) 1 tab PO 0800 [facility] Last Admin: 12/08/18 10:29 Dose: 1 tab - Labs Labs: 12/09/18 07:30 12/09/18 07:30 PT 14.1 SECONDS (9.4-12.5) H 12/06/18 04:13 INR 1.27 12/06/18 04:13 APTT 43.2 Seconds (26.9-38.3) H 12/06/18 04:13 - Constitutional Appears: Well, Non-toxic, No Acute Distress - Head Exam Head Exam: ATRAUMATIC, NORMOCEPHALIC - Extremities Exam Additional comments: LE focused exam: Vasc: DP/PT pulses faintly palpable 1/4. Skin temperature warm to warm from prox imal to distal. CFT < 3 seonds to all digits. No edema noted to foot or leg Neuro: Epicritic and protective sensation grossly diminished Derm: skin tear noted to the lateral aspect of leg, No open lesions, wounds, maceration, xerosis, abnormal pigmentation or abnormal growths noted. DTI appreciated to left heel MSK: Pain on palpation of left heel. Charcot deformity with collapse of midfoot arch appreciated. Right BKA noted - Neurological Exam Neurological Exam: Alert, Awake, Oriented x3 - Psychiatric Exam Psychiatric exam: Normal Affect, Normal Mood Assessment and Plan - Assessment and Plan (Free Text) Assessment: 73M seen for left heel pain Plan: Patient seen and evaluated with Dr. Caldwell Plan discussed Afebrile, absent leukocytosis Heel and lateral leg wound dressed with Mepilex Patient to wear multipodus boot at all times No plan for surgical intervention at this time Podiatry will continue to follow while patient in house
[2018-12-09] MEDS: LAMIVUDINE 100 MG PO SCH (10:55)
[2018-12-09] MEDS: Multivitamin Vitamin B Complex (Nephro-Vite) Tab PO SCH (11:19)
--- NOTE | 2018-12-09 12:26 | CP.PCM.PN ---
Subjective - Date & Time of Evaluation Date of Evaluation: 12/09/18 Time of Evaluation: 12:25 - Subjective Subjective: Nephrology Consultation Note: Assessment: stable AMS ? etiology missed HD acute hypercapnic respi failure hx of prostate CA Hypertensive Chronic Kidney Disease (I12.9) ESRD on HD via permacath (TTS) Anemia (D64.9), HTN (I12.9) HIV on HAART, PVD s/p angioplasty s/p Rt AKA Plan plan for HD as per TTS schedule. nephrovite 1 tab/day PRBC as needed . last Hb >10. defer RESHMA for now continue with home dose of phosphorus binders as ordered Hypertension control with meds as ordered. Patient not on RAAS edyta, may add if needed. BP on low side at present. lowered lopressor to 25 mg bid Dose meds/antibiotics for ESRD status. Avoid fleets enema/magnesium based laxatives. Further work up/management as per primary team. Neuro ID following d/c planning Thanks for allowing me to participate in care of your patient. Will follow patient with you. Please call if any Qs. had d/w team Dr Yandel Arechiga Office: [phone] CC: AMS reason for consult: ESRD HPI: Pt is a 73 y/o M with hx of HIV on HAART, PVD s/p angioplasty, Rt AKA, hypertension (10-15 years), ESRD on HD (via permacath) [place] [facility] [place] [facility] [place], left foot toe amputations, prostate CA presented with AMS and tremors. pt missed HD yesterday renal consult for ESRD, HTN management pt unable to provide any hx ROS: feels better.no complaints. no Cp/SOB Physical Examination: General Appearance: comfortable, in no acute respiratory distress, facial muscles wasted. Vitals reviewed and noted as below Head; Atraumatic, normocephalic ENT: no ulcers no thrush. Tongue is midline dry. Oropharynx: no rash or ulcers. EYES: Pupils are equal, round and reactive to light accommodation. Eye muscles and extraocular movement intact. Sclera is anicteric. Neck; supple no lymphadenopathy, no thyromegaly or bruit Lungs: Normal respiratory rate/effort. Breath sounds bilateral clear Heart: Normal rate. s1s2 normal. No rub or gallop. Extremities: no edema. No varicose veins. s/p Rt AKA Neurological: Patient is alert awake today follow commands Skin: Warm and dry. Normal turgor. Palpitation: Normal elasticity for age. Abdomen: Abdomen is soft. Bowel sounds +. There is no abdominal tenderness, no guarding/rigidity no organomegaly Psych: limited insight MSK: Digits and nails normal, left foot toe amputations in past. Rt AKA. : kidney or bladder not palpable Access: left AVF Labs/imaging/EKG reviewed. Past medical history, past surgical history, family history, social history, allergy reviewed and noted as below Family hx: sister was on dialysis. Rest non-contributory Objective - Vital Signs/Intake and Output Vital Signs (last 24 hours): Temp Pulse Resp BP Pulse Ox 98.2 F 77 19 106/58 L 96 12/09/18 06:00 12/09/18 06:00 12/09/18 06:00 12/09/18 06:00 12/09/18 06:00 Intake and Output: 12/09/18 12/09/18 06:59 18:59 Intake Total 700 Balance 700 - Medications Medications: Current Medications Abacavir Sulfate (Ziagen) 300 mg PO DAILY [facility]; Protocol Last Admin: 12/09/18 11:19 Dose: 300 mg Albumin Human (Albumin Human 25% (12.5 Gm/50 Ml)) 25 gm IV TTS PRN PRN Reason: Other Atorvastatin Calcium (Lipitor) 20 mg PO DAILY [facility] Last Admin: 12/09/18 11:20 Dose: 20 mg Meropenem 250 mg/ Sodium (Chloride) 100 mls @ 100 mls/hr IVPB Q12H [facility]; Protocol Stop: 12/13/18 06:46 Last Admin: 12/09/18 06:47 Dose: 100 mls/hr Metoprolol Tartrate (Lopressor) 25 mg PO BID [facility] Non-Formulary Medication (Dolutegravir Sodium [Tivicay]) 50 mg PO DAILY [facility] Last Admin: 12/09/18 10:55 Dose: Not Given Non-Formulary Medication (Lamivudine [Epivir Hbv]) 100 mg PO DAILY [facility] Last Admin: 12/09/18 10:55 Dose: Not Given Sevelamer HCl (Renagel) 800 mg PO TID [facility] Last Admin: 12/09/18 11:19 Dose: 800 mg Tamsulosin HCl (Flomax) 0.4 mg PO DAILY [facility] Last Admin: 12/09/18 11:20 Dose: 0.4 mg Thiamine HCl (Vitamin B1 Tab) 100 mg PO DAILY [facility] Stop: 12/12/18 10:01 Last Admin: 12/09/18 11:20 Dose: 100 mg Vitamin B Complex/Vit C/Folic Acid (Nephro-Christel) 1 tab PO 0800 [facility] Last Admin: 12/09/18 11:19 Dose: 1 tab - Labs Labs: 12/09/18 07:30 12/09/18 07:30 PT 14.1 SECONDS (9.4-12.5) H 12/06/18 04:13 INR 1.27 12/06/18 04:13 APTT 43.2 Seconds (26.9-38.3) H 12/06/18 04:13
--- NOTE | 2018-12-09 13:27 | PN ---
DATE: 12/09/2018 SUBJECTIVE: I saw him in bed resting comfortably, slept fairly well, is in good spirits, nontoxic. No fever, no chills at this time. He is talking much better. No shakes. No tremors. Getting dialysis. He is on IV antibiotics. He is definitely improved since he has been in the hospital. He is being seen by Infectious Disease, Renal and Neurology. PHYSICAL EXAMINATION VITAL SIGNS: He has a 98.2 temperature, 77 pulse, 106/58 blood pressure, 19 respiratory rate, 96% O2 sat. HEENT: Head: Atraumatic, normocephalic. Throat is moist. NECK: Supple. HEART: Regular rate. LUNGS: Decreased breath sounds, but clear. Poor inspiration, but no wheezes, no rhonchi, no rales. ABDOMEN: Soft, nontender with positive bowel sounds. EXTREMITIES: He has a right BKA, left side is with no edema. was clean. LABORATORY DATA: He has a white count of 10.2, 11.2 hemoglobin, 37.1 hematocrit with 320 platelets. INR is 1.27. Lactate is down to 1. Sodium 136, potassium 4.5, BUN 30, creatinine 4.9 on dialysis. Blood sugar was 92. Calcium is 8.5. AST is 34, ALT is 6, alk phos 74, total bili is 0.4, total protein is 8.2. MEDICATIONS: He is on albumin Flomax, Epivir, Lipitor, Lopressor, Merrem I.V., Nephro-Christel, Renagel, vitamin B1 and Ziagen. When I him over to p.o. antibiotics from Merrem, I will discharge him home, waiting for Infectious Disease to let me know he definitely improved. Continue with aggressive treatment and care. IMPRESSION: End-stage renal disease, on hemodialysis; altered mental status with history of right below-knee amputation. Parag Brownlee DO MTDAnna
[2018-12-09 15:38] VITALS: RESP 18
--- NOTE | 2018-12-09 16:52 | PN ---
DATE: 12/09/2018 SUBJECTIVE: The patient is in bed in room 264, bed 1. OBJECTIVE: VITAL SIGNS: On exam the patient's temperature is 98, blood pressure is 106/50, respiratory rate 20, heart rate of 83. HEENT: Unremarkable. NECK: Supple. LUNGS: Have decreased breath sounds. HEART: Normal S1 and S2. ABDOMEN: Soft, nontender. LABORATORY DATA: Laboratory examination reveals a white count of 10,000, hemoglobin of 11, BUN of 51, creatinine of 6.1. Procalcitonin is 1.64. Blood cultures are negative. REVIEW OF ORDERS. Reveals the patient to be on meropenem. ASSESSMENT AND PLAN: He is a 73-year-old male with systemic inflammatory response syndrome who was admitted with history of fevers, although he did not have any fevers in the hospital, all cultures are negative. The patient did have mild leukocytosis on admission of 13,900, which has resolved. We will discontinue the antibiotics. No further antibiotics. The blood cultures are negative. The patient had a chest x-ray, which is negative. Abdominal exam, which is negative and white count is normal now and LFTs which were normal. Etiology of the leukocytosis is not clear. We will discharge the patient on p.o. Augmentin x5 days. Cesar Flowers MD
[2018-12-09] MEDS: Amoxicillin-Clav 500-125 mg Tab PO SCH (18:07)
--- NOTE | 2018-12-09 18:16 | CP.PCM.PN ---
Subjective - Date & Time of Evaluation Date of Evaluation: 12/09/18 Time of Evaluation: 17:30 - Subjective Subjective: House Resident Note Mykel Hickman DO, IM PGY-3 Called by nursing to evaluate patient at request of PMD (Dr. Brownlee) due to family's stated concern that patient is having slurred speech today. Charting and most recent labs/imaging reviewed. In short, this is a 73 yo M with PMH of HIV on HAART, COPD, Vertigo, DM, Protate Ca, ESRD on HD T//Sun, and hx R LE BKA who presented originally for AMS and tremors. Currently, patient has co mpleted course of abx for leukocytosis of unclear etiology, and has refused KARRI placement, so is pending d/c home today. At time of my exam, patient is sitting comfortably in bed, eating a sandwich for dinner. He is awake, alert, and oriented x4 (self, location, year, president). He is able to follow all commands appropriately and his motor and neuro exams are grossly intact and equal bilaterally. His comprehension appears intact, and is able to answer questions appropriately. Reports that he intermittent episodes of slurred speech, frequently with or after dialysis, but denies any such symptoms at time of exam. Only complaint is intermittent dizziness, but denies room spinning, and again is not experiencing this symptom at time of exam. Denies headache, chest pain, fevers, nausea, emesis, shortness of breath, focal or global weakness, or focal/global paresthesias. No other acute complaints elicited during interview/exam. Objective - Vital Signs/Intake and Output Vital Signs (last 24 hours): Temp Pulse Resp BP Pulse Ox 97.3 F L 93 H 18 122/68 92 L 12/09/18 17:25 12/09/18 17:25 12/09/18 17:25 12/09/18 17:25 12/09/18 17:25 Intake and Output: 12/09/18 12/09/18 06:59 18:59 Intake Total 700 Balance 700 - Medications Medications: Current Medications Abacavir Sulfate (Ziagen) 300 mg PO DAILY [facility]; Protocol Last Admin: 12/09/18 11:19 Dose: 300 mg Albumin Human (Albumin Human 25% (12.5 Gm/50 Ml)) 25 gm IV TTS PRN PRN Reason: Other Amoxicillin/Clavulanate Potassium (Augmentin 500 Mg-125 Mg Tab) 1 tab PO DAILY [facility]; Protocol Atorvastatin Calcium (Lipitor) 20 mg PO DAILY [facility] Last Admin: 12/09/18 11:20 Dose: 20 mg Metoprolol Tartrate (Lopressor) 25 mg PO BID [facility] Non-Formulary Medication (Dolutegravir Sodium [Tivicay]) 50 mg PO DAILY [facility] Last Admin: 12/09/18 10:55 Dose: Not Given Non-Formulary Medication (Lamivudine [Epivir Hbv]) 100 mg PO DAILY [facility] Last Admin: 12/09/18 10:55 Dose: Not Given Sevelamer HCl (Renagel) 800 mg PO TID [facility] Last Admin: 12/09/18 14:00 Dose: Not Given Tamsulosin HCl (Flomax) 0.4 mg PO DAILY [facility] Last Admin: 12/09/18 11:20 Dose: 0.4 mg Thiamine HCl (Vitamin B1 Tab) 100 mg PO DAILY [facility] Stop: 12/12/18 10:01 Last Admin: 12/09/18 11:20 Dose: 100 mg Vitamin B Complex/Vit C/Folic Acid (Nephro-Christel) 1 tab PO 0800 [facility] Last Admin: 12/09/18 11:19 Dose: 1 tab - Labs Labs: 12/09/18 07:30 12/09/18 07:30 PT 14.1 SECONDS (9.4-12.5) H 12/06/18 04:13 INR 1.27 12/06/18 04:13 APTT 43.2 Seconds (26.9-38.3) H 12/06/18 04:13 - Constitutional Appears: Non-toxic, No Acute Distress, Chronically Ill - Head Exam Head Exam: ATRAUMATIC, NORMAL INSPECTION, NORMOCEPHALIC - Eye Exam Eye Exam: absent: Conjunctival injection, Scleral icterus Pupil Exam: absent: Irregular, Unequal - ENT Exam ENT Exam: Mucous Membranes Moist - Neck Exam Neck Exam: absent: Lymphadenopathy, Thyromegaly - Respiratory Exam Respiratory Exam: NORMAL BREATHING PATTERN. absent: Accessory Muscle Use, Wheezes, Respiratory Distress, Stridor - Cardiovascular Exam Cardiovascular Exam: REGULAR RHYTHM. absent: Bradycardia, Tachycardia, JVD - GI/Abdominal Exam GI & Abdominal Exam: Soft. absent: Tenderness - Extremities Exam Additional comments: R LE BKA, bandaging along stump and along LLE at ankle/foot region +2 radial pulses bilaterally, no appreciable pitting edema in extremities - Neurological Exam Additional comments: awake, alert, oriented x4 (self, location, year, president) following all commands appropriately feeding self without any assistance or overt difficulty 5/5 motor strength in bilateral UE and 4/5 in bilateral LE (RLE testing limited 2/2 BKA) sensation equal and intact in bilateral extremity pairings (except where limited in exam by RLE BKA) moving all extremities spontaneously and on command Cranial Nerves II-VII and IX-XII tested and intact bilaterally - Psychiatric Exam Psychiatric exam: Normal Affect, Normal Mood - Skin Skin Exam: Dry, Normal Color, Warm Additional comments: LE wounds bandaged as described in extremities section Assessment and Plan - Assessment and Plan (Free Text) Assessment: 73 yo M with PMH of HIV on HAART, COPD, Vertigo, DM, Protate Ca, ESRD on HD T/Th/Sat, and hx R LE BKA who presented originally for AMS and tremors. Currently, patient has completed course of abx for leukocytosis of unclear etiology, and has refused KARRI placement, so is pending d/c home today. Plan: Patient displays no acute neurological findings on my exam, is not confused or obtunded. No acute intervention indicated at this time. Discussed with patient's PMD, Dr. Brownlee.
[2018-12-09 19:26] LABS: HEMOGLOBIN 9.5 g/dL (14.0-18.0); MEAN CELL VOLUME 100.3 fl (80.0-105.0); MEAN CORPUSCULAR HGB CONC 30.9 g/dl (31.0-37.0); MEAN PLATELET VOLUME 9.7 fl (7.0-11.0); RBC 3.06 10^6/uL (3.5-6.1); RED CELL DISTRIBUTION WIDTH 18.8 % (11.5-14.5); WHITE BLOOD COUNT 10.6 10^3/uL (4.5-11.0)
[2018-12-09 19:35] LABS: ALB/GLOB RATIO 0.8 (1.1-1.8); ALBUMIN 3.3 g/dL (3.0-4.8); ALT/SGPT < 6 U/L (7-56); AST/SGOT 23 U/L (17-59); BLOOD UREA NITROGEN 58 mg/dL (7-21); CALCIUM 8.4 mg/dL (8.4-10.5); GFR NON-AFRICAN AMERICAN 7
[2018-12-10 05:14] VITALS: O2SAT 97
[2018-12-10 06:02] VITALS: TEMP 98.2
[2018-12-10 06:32] LABS: HEMOGLOBIN 9.9 g/dL (14.0-18.0); MEAN CELL VOLUME 99.1 fl (80.0-105.0); MEAN CORPUSCULAR HEMOGLOBIN 30.7 pg (25.0-35.0); MEAN PLATELET VOLUME 9.6 fl (7.0-11.0); RBC 3.22 10^6/uL (3.5-6.1); RED CELL DISTRIBUTION WIDTH 18.5 % (11.5-14.5); WHITE BLOOD COUNT 10.6 10^3/uL (4.5-11.0)
[2018-12-10 07:08] LABS: ALB/GLOB RATIO 0.8 (1.1-1.8); ALBUMIN 3.1 g/dL (3.0-4.8); CALCIUM 8.2 mg/dL (8.4-10.5)
--- NOTE | 2018-12-10 11:55 | CP.PCM.PN ---
Subjective - Date & Time of Evaluation Date of Evaluation: 12/10/18 Time of Evaluation: 11:54 - Subjective Subjective: Nephrology Consultation Note: Assessment: stable AMS ? etiology missed HD acute hypercapnic respi failure hx of prostate CA Hypertensive Chronic Kidney Disease (I12.9) ESRD on HD via permacath (TTS) Anemia (D64.9), HTN (I12.9) HIV on HAART, PVD s/p angioplasty s/p Rt AKA Plan plan for HD as per TTS schedule. nephrovite 1 tab/day PRBC as needed . last Hb ~10. defer RESHMA for now continue with home dose of phosphorus binders as ordered Hypertension control with meds as ordered. Patient not on RAAS edyta, may add if needed. BP on low side at present. lowered lopressor to 25 mg bid Dose meds/antibiotics for ESRD status. Avoid fleets enema/magnesium based laxatives. Further work up/management as per primary team. Neuro ID following d/c planning Thanks for allowing me to participate in care of your patient. Will follow patient with you. Please call if any Qs. had d/w team Dr Yandel Arechiga Office: [phone] CC: AMS reason for consult: ESRD HPI: Pt is a 73 y/o M with hx of HIV on HAART, PVD s/p angioplasty, Rt AKA, hypertension (10-15 years), ESRD on HD (via permacath) TTS @ [facility] [place], left foot toe amputations, prostate CA presented with AMS and tremors. pt missed HD yesterday renal consult for ESRD, HTN management pt unable to provide any hx ROS: no complaints. no Cp/SOB Physical Examination: seen during HD General Appearance: comfortable, in no acute respiratory distress, facial muscles wasted. Vitals reviewed and noted as below Head; Atraumatic, normocephalic ENT: no ulcers no thrush. Tongue is midline dry. Oropharynx: no rash or ulcers. EYES: Pupils are equal, round and reactive to light accommodation. Eye muscles and extraocular movement intact. Sclera is anicteric. Neck; supple no lymphadenopathy, no thyromegaly or bruit Lungs: Normal respiratory rate/effort. Breath sounds bilateral clear Heart: Normal rate. s1s2 normal. No rub or gallop. Extremities: no edema. No varicose veins. s/p Rt AKA Neurological: Patient is alert awake today follow commands Skin: Warm and dry. Normal turgor. Palpitation: Normal elasticity for age. Abdomen: Abdomen is soft. Bowel sounds +. There is no abdominal tenderness, no guarding/rigidity no organomegaly Psych: limited insight MSK: Digits and nails normal, left foot toe amputations in past. Rt AKA. : kidney or bladder not palpable Access: left AVF Labs/imaging/EKG reviewed. Past medical history, past surgical history, family history, social history, allergy reviewed and noted as below Family hx: sister was on dialysis. Rest non-contributory Objective - Vital Signs/Intake and Output Vital Signs (last 24 hours): Temp Pulse Resp BP Pulse Ox 98.2 F 72 18 118/66 97 12/10/18 06:00 12/10/18 06:00 12/10/18 06:00 12/10/18 06:00 12/10/18 06:00 Intake and Output: 12/10/18 12/10/18 06:59 18:59 Intake Total 1740 Balance 1740 - Medications Medications: Current Medications Abacavir Sulfate (Ziagen) 300 mg PO DAILY [facility]; Protocol Last Admin: 12/09/18 11:19 Dose: 300 mg Albumin Human (Albumin Human 25% (12.5 Gm/50 Ml)) 25 gm IV TTS PRN PRN Reason: Other Amoxicillin/Clavulanate Potassium (Augmentin 500 Mg-125 Mg Tab) 1 tab PO DAILY [facility]; Protocol Last Admin: 12/09/18 18:07 Dose: 1 tab Atorvastatin Calcium (Lipitor) 20 mg PO DAILY [facility] Last Admin: 12/09/18 11:20 Dose: 20 mg Metoprolol Tartrate (Lopressor) 25 mg PO BID [facility] Last Admin: 12/09/18 18:08 Dose: Not Given Non-Formulary Medication (Dolutegravir Sodium [Tivicay]) 50 mg PO DAILY [facility] Last Admin: 12/09/18 10:55 Dose: Not Given Non-Formulary Medication (Lamivudine [Epivir Hbv]) 100 mg PO DAILY [facility] Last Admin: 12/09/18 10:55 Dose: Not Given Sevelamer HCl (Renagel) 800 mg PO TID [facility] Last Admin: 12/09/18 18:07 Dose: 800 mg Tamsulosin HCl (Flomax) 0.4 mg PO DAILY [facility] Last Admin: 12/09/18 11:20 Dose: 0.4 mg Thiamine HCl (Vitamin B1 Tab) 100 mg PO DAILY [facility] Stop: 12/12/18 10:01 Last Admin: 12/09/18 11:20 Dose: 100 mg Vitamin B Complex/Vit C/Folic Acid (Nephro-Christel) 1 tab PO 0800 [facility] Last Admin: 12/09/18 11:19 Dose: 1 tab - Labs Labs: 12/10/18 06:00 12/10/18 06:00 PT 14.1 SECONDS (9.4-12.5) H 12/06/18 04:13 INR 1.27 12/06/18 04:13 APTT 43.2 Seconds (26.9-38.3) H 12/06/18 04:13
[2018-12-10] MEDS: LAMIVUDINE 100 MG PO SCH (13:10)
--- NOTE | 2018-12-10 13:25 | PN ---
DATE: 12/10/2018 SUBJECTIVE: The patient is seen earlier today in 264. No fevers. No chills. PHYSICAL EXAMINATION: VITAL SIGNS: Temperature is 97, blood pressure is 118/60, respiratory rate of 18 and heart rate of 93. HEENT: Unremarkable. NECK: Supple. LUNGS: Decreased breath sounds. HEART: Normal, S1 and S2. ABDOMEN: Soft. LABORATORY DATA: Reveals the white count of 10.6 and hemoglobin of 9. Chemistry reveals a BUN of 68 and creatinine is 7.9. Microbiology as noted. Blood cultures are negative. ASSESSMENT AND PLAN: This is a 73-year-old male with systemic inflammatory response syndrome was admitted with leukocytosis, all cultures are negative. Chest x-ray is negative. Abdomen exam is negative. White count has normalized now. Liver function tests are normal, day #2 of p.o. Augmentin for renal failure for complete total of 5 days, today is day #2 of 5 days. The patient is on abacavir and the patient is also on dolutegravir, and abacavir human immuno deficiency medications. Cesar Flowers MD
[2018-12-10 14:05] VITALS: BP 105/55; PULSE 62
[2018-12-10] MEDS: Multivitamin Vitamin B Complex (Nephro-Vite) Tab PO SCH (14:17)
[2018-12-10] MEDS: Amoxicillin-Clav 500-125 mg Tab PO SCH (14:17)
--- NOTE | 2018-12-11 07:49 | DS ---
HOSPITAL COURSE: He is doing much better. He is feeling much better. He definitely improved. He will be discharged home today. I will be seeing him on a house call. He will be on Augmentin 500 twice a day for seven days plus his regular home medications. This is also discussed with his sister. His dialysis arrangements are rescheduled. He is comfortable in bed, slept well. No acute complaints of chest pain or shortness of breath. No more tremors and he is eating well. PHYSICAL EXAMINATION: VITAL SIGNS: He has a 98.2 temperature, 72 pulse, 118/66 blood pressure, 18 respiratory rate, and 97% of O2 saturation on room air. HEENT: Head is atraumatic and normocephalic. Throat is moist. NECK: Supple. HEART: Regular rate. LUNGS: Decreased breath sounds, but clear. ABDOMEN: Soft, nontender, positive bowel sounds. EXTREMITIES: He got a right BKA. Left leg is okay. SKIN: Intact. MEDICATIONS: He is going to be on Augmentin 500 twice a day for seven more days. He will be on his Tivicay, Flomax, Epivir, Lipitor, Lopressor, Nephro-Christel, Renagel, vitamin B1, and Ziagen. LABORATORY DATA: He has a 10.6 white count, 9.9 hemoglobin, 31.9 hematocrit with 382 platelets. A 129 sodium, 4.6 potassium, BUN 68, creatinine 7.9, GFR is 7, and sugar is 118. Calcium is 8.2, magnesium , total bili is 0.3, AST is 38, ALT is 10, alk phos 92, and total protein 7.2; these numbers are better. ASSESSMENT AND PLAN: He was seen by Infectious Disease. He will be on Augmentin. I will see him on a house call, and hopefully, he will continue to improve. Parag Brownlee DO MTDD
== END 2018-12-10 16:52 | disposition home or self-care (01) | DRG 947 ==
LOC: ED 04:08 → ERH 05:27 → 2RNO 17:52
PROVIDERS: ADMIT Family Medicine; ATTEND Family Medicine
PROC: 5A1D70Z Performance of Urinary Filtration, Intermittent, Less than 6 Hours Per Day (ICD-10-PCS; principal; 2018-12-06)
PROC: 5A1D70Z Performance of Urinary Filtration, Intermittent, Less than 6 Hours Per Day (ICD-10-PCS; 2018-12-07)
PROC: 5A1D70Z Performance of Urinary Filtration, Intermittent, Less than 6 Hours Per Day (ICD-10-PCS; 2018-12-10)
DX: R41.82 Altered mental status, unspecified (principal); N18.6 End stage renal disease; B20 Human immunodeficiency virus [HIV] disease; I12.0 Hypertensive chronic kidney disease with stage 5 chronic kidney disease or end stage renal disease; R65.10 Systemic inflammatory response syndrome (SIRS) of non-infectious origin without acute organ dysfunction; Z68.1 Body mass index [BMI] 19.9 or less, adult; R64 Cachexia; G25.0 Essential tremor; J44.9 Chronic obstructive pulmonary disease, unspecified; E11.51 Type 2 diabetes mellitus with diabetic peripheral angiopathy without gangrene; E11.22 Type 2 diabetes mellitus with diabetic chronic kidney disease; E11.610 Type 2 diabetes mellitus with diabetic neuropathic arthropathy; D64.9 Anemia, unspecified; K21.9 Gastro-esophageal reflux disease without esophagitis; M10.9 Gout, unspecified; M79.672 Pain in left foot; Z85.46 Personal history of malignant neoplasm of prostate; Z99.2 Dependence on renal dialysis; Z89.412 Acquired absence of left great toe; Z89.511 Acquired absence of right leg below knee; Z98.62 Peripheral vascular angioplasty status

== ENCOUNTER 2019-01-08 11:22 | Inpatient (IN) | payer MEDICARE, OTHER ==
[2019-01-08] MEDS ORDERED: Propofol 10 mg/ml Inj (20 ML) ONE (11:29)
[2019-01-08] MEDS ORDERED: Etomidate 20 mg/10ml Inj IV ONE (11:30)
[2019-01-08] MEDS ORDERED: Propofol 10 mg/ml 1,000 MG/100 ML VIAL ONE (11:30)
--- NOTE | 2019-01-08 11:38 | ED PDOC ---
Arrival/HPI - General Chief Complaint: Altered Mental Status Historian: EMS - History of Present Illness Narrative History of Present Illness (Text): 01/08/19 11:38 73 year old male, with a past medical history of HIV, COPD, Vertigo, Diabetes, Prostate Cancer, and Kidney failure on dialysis, who presents to the emergency department BIB EMS for being unresponsive. As per EMS, family had not spoken to him. EMS reports patient was found on the bathroom floor by his sister, unresponsive, and covered in stool. PMD: Dr. Brownlee Time/Duration: 4-6 hours Symptom Onset: Sudden Symptom Course: Unchanged Activities at Onset: Light Context: Home Past Medical History - Provider Review Nursing Documentation Reviewed: Yes - Infectious Disease Hx of Infectious Diseases: None - Tetanus Immunization Tetanus Immunization: Up to Date - Cardiac Hx Cardiac Disorders: Yes Hx Hypertension: Yes - Pulmonary Hx Chronic Obstructive Pulmonary Disease (COPD): Yes - Neurological Hx Neurological Disorder: No - HEENT Hx HEENT Disorder: No - Renal Hx Renal Failure: Yes - Endocrine/Metabolic Hx Diabetes Mellitus Type 2: Yes - Hematological/Oncological Hx Blood Disorders: Yes Hx Cancer: Yes (PROSTATE CA) - Integumentary Hx Dermatological Disorder: Yes - Musculoskeletal/Rheumatological Hx Musculoskeletal Disorders: Yes (RIGHT BKA) Hx Falls: Yes Hx Osteomyelitis: Yes Hx Unsteady Gait: Yes - Gastrointestinal Hx Gastrointestinal Disorders: Yes (GI BLEED,H/O C DIFF 1-16-18) Hx Gastroesophageal Reflux: Yes - Genitourinary/Gynecological Hx Genitourinary Disorders: Yes (ANURIA) Hx Prostate Problems: Yes (PROSTATE CA) - Psychiatric Hx Psychophysiologic Disorder: No Hx Substance Use: No - Surgical History Other/Comment: R AKA - Anesthesia Hx Anesthesia: Yes Hx Anesthesia Reactions: No Hx Malignant Hyperthermia: No - Suicidal Assessment Feels Threatened In Home Enviroment: No Family/Social History - Physician Review Nursing Documentation Reviewed: Yes Family/Social History: Unknown Family HX Smoking Status: Never Smoked Hx Alcohol Use: No Hx Substance Use: No Allergies/Home Meds Allergies/Adverse Reactions: Allergies banana Allergy (Verified 01/08/19 11:30) SWELLING shrimp Allergy (Verified 01/08/19 11:30) SWELLING PT STATES WHEN HE EATS OUTSIDE, HE HAS ALLERGIC RXN BUT WHEN HE COOKS IT HE DOES NOT HAVE ANY REACTION.STATES HE DEVEINS HIS SHRIMP. Home Medications: Home Meds Medication Instructions Recorded Confirmed Cholecalciferol [Vitamin D 1000 IU] 1,000 units PO DAILY 12/08/17 12/06/18 Metoprolol Tartrate [Lopressor] 100 mg PO BID 01/25/18 12/06/18 Atorvastatin [Lipitor] 20 mg PO DAILY 06/27/18 12/10/18 Folic Acid/Vit B Complex and C 1 tab PO DAILY 06/27/18 12/06/18 [Renal Vitamin Tablet] Furosemide [Lasix] 40 mg PO DAILY 06/27/18 12/06/18 Sevelamer Carbonate 1 tab PO TID 06/27/18 12/10/18 Review of Systems - Physician Review All systems were reviewed & negative as marked: Yes - Review of Systems Systems not reviewed;Unavailable: Other (patient unresposive) Physical Exam - Physical Exam Narrative Physical Exam (Text): 01/08/19 12:12 Gen: VS reviewed, alert, well developed, well nourished, nontoxic, mild distress Head: Contusion on left eyebrow Eye: EOMI, PERRL Neck: no JVD, supple, no adenopathy CV: Heart rate rapid, regular rhythm, no rubs,no murmur, S1, S2 Pulm: no distress, no wheeze, no rhonchi, Coarse breath sounds bilaterally Abd: Mid lower abdominal scar, abdomen soft. No Distention, nontender, no guarding, no rebound, no rigidity. Ext: no edema Skin: Chronic skin changes in left leg. no rash. Psych: limited due to patient condition Neuro: limited due to patient condition Medical Decision Making ED Course and Treatment: 01/08/19 11:44 Impression: 73 year old male presents to the emergency department BIB EMS for being unresponsive. Plan: -- BBK -- BG -- EKG -- Labs -- CXR -- Albuterol -- Blood culture -- Calcium Gluconate -- Reassess and disposition Prior Visits: Notes and results from previous visits were reviewed. 01/08/19 12:[address] Brownlee, who will admit patient to his service, requests consult to Dr. Boykin(Cardiology), Dr. Aggarwal(Neurology), and Dr. daily(Pulmonary medicine) 01/08/19 13:[address] lowe, cat driver, will come to ED for evaluation 01/08/19 13:13 patient to be admitted for mixed respiratory failure, possible from an acute neurologic event such as cva or ICH. patient was intubated as he was breathing spontaneously but erratically with vomitus around his mouth. troponin found to be elevated and nstemi is a possibility. i will hold aspirin for now due to the possibility of intracranial bleed. call has been placed to cardiology and awaiting call back, dr. boykin. ekg shows peaked t waves, no st elevations to suggest acute mi, patient was initially empirically tx with albuterol and calcium empirically. 01/08/19 13:30 Call placed to neurosurgery. 01/08/19 14:31 case discussed with neurosurgery, dr. garcia, stats patient is not an acute surgical candiate at this time, palliative care recommended. he has discussed the case with the sister over the phone regarding diagnosis and prognosis - Critical Care Critical Care Minutes: 30 minutes - RAD Interpretation Narrative RAD Interpretations (Text): 01/08/19 15:36 CT head reviewed by radiologist, shows: There is a large subdural hematoma over the left hemisphere measuring 25 mm in thickness. There is severe mass effect with 20 mm of midline shift. There is subfalcine and uncal herniation. There is compression of the brainstem and obliteration of the basal cisterns. There is compression of the left lateral ventricle. There enlargement of the right occipital and temporal horns with surrounding vasogenic edema consistent with obstructive hydrocephalus. 01/08/19 15:39 CT Cervical spine reviewed by radiologist, shows: Severe degenerative changes. Cervical kyphosis. No acute fracture. 01/08/19 16:39 Chest X-ray reviewed by radiologist, shows: No active disease. Imcu Nurse: Radiologist - EKG Interpretation EKG Interpretation (Text): 01/08/19 13:22 EKG reviewed, shows: Sinus tachycardia at 112 bpm, normal QRS, LVH, peaked T wa ve, Septal infarct. Interpreted by ED Physician: Yes - Procedure PROCEDURE NOTE (Text): 01/08/19 13:22 Progress Notes: PROCEDURE: INTUBATION Performed by the emergency provider Time: 11:32 Consent: was precluded by the urgency of the procedure and the patient condition. Timeout: A timeout to verify the correct patient, procedure, and site was performed. Indication: air way protection Pre-oxygenation: [id number] Medications: propofol. See MAR for details. ETT Size: 7 Confirmation: Cords directly visualized as tube passed, good bilateral breath sounds, positive CO2 detector color change, tube fogging, adequate chest rise, improving pulse oximetry reading, improved skin color, and absence of gastric sounds,. ETT Secured: The cuff was inflated and the tube was secured appropriately at a distance of 23cm at the lip. Post-Procedure: There were no immediate complications. CXR Confirmation:Yes - Scribe Statement The provider has reviewed the documentation as recorded by the Yissel [facility] Provider Scribe Attestation: All medical record entries made by the Yissel were at my direction and personally dictated by me. I have reviewed the chart and agree that the record accurately reflects my personal performance of the history, physical exam, medical decision making, and the department course for this patient. I have also personally directed, reviewed, and agree with the discharge instructions and disposition. Disposition/Present on Arrival - Present on Arrival Any Indicators Present on Arrival: No History of DVT/PE: No History of Uncontrolled Diabetes: Yes Urinary Catheter: No History of Decub. Ulcer: No History Surgical Site Infection Following: None - Disposition Have Diagnosis and Disposition been Completed?: Yes Diagnosis: Elevated troponin, Subdural hematoma Disposition: HOSPITALIZED Disposition Time: 13:00 Patient Plan: ICU Patient Problems: Current Active Problems Problem Status Onset Elevated troponin Acute Altered mental status Acute Subdural hematoma Acute Condition: CRITICAL
[2019-01-08] MEDS ORDERED: Albuterol 0.083% Inhal Sol (2.5 mg/3 mL) UD INH STA (11:42)
[2019-01-08 11:48] VITALS: BMI 21.0
[2019-01-08] MEDS ORDERED: Propofol 10 mg/ml 1,000 MG/100 ML VIAL IV PRN (11:49)
[2019-01-08] MEDS ORDERED: Calcium Gluconate in NS 1 GM/50 ML BAG IV ONE (12:00)
[2019-01-08 12:16] LABS: ARTERIAL BLOOD GAS HCO3 24.1 mmol/L (21-28); ARTERIAL BLOOD GAS O2 SAT 98.2 % (95-98); ARTERIAL BLOOD GAS PCO2 38 mm/Hg (35-45); ARTERIAL BLOOD GAS PH 7.41 (7.35-7.45); ARTERIAL BLOOD GAS TCO2 25.3 mmol.L (22-28)
[2019-01-08 12:19] LABS: BASO # 0.02 K/mm3 (0.0-2.0); BASO % 0.1 % (0.0-3.0); EOS % 0.2 % (1.5-5.0); HEMOGLOBIN 12.1 g/dL (14.0-18.0); LYMPH % 22.3 % (22.0-35.0); MEAN CELL VOLUME 100.3 fl (80.0-105.0); MEAN CORPUSCULAR HEMOGLOBIN 31.7 pg (25.0-35.0); MEAN CORPUSCULAR HGB CONC 31.6 g/dl (31.0-37.0); MEAN PLATELET VOLUME 10.3 fl (7.0-11.0); MONO # 2.3 (0.1-0.6); MONO % 17.3 % (1.0-6.0); RBC 3.82 10^6/uL (3.5-6.1); WHITE BLOOD COUNT 13.5 10^3/uL (4.5-11.0)
[2019-01-08 12:23] LABS: INR 1.09; PARTIAL THROMBOPLASTIN TIME 43.1 Seconds (26.9-38.3); PROTHROMBIN TIME 12.3 SECONDS (9.4-12.5)
[2019-01-08 12:48] LABS: ALB/GLOB RATIO 0.8 (1.1-1.8); ALBUMIN 4.3 g/dL (3.0-4.8); CALCIUM 8.7 mg/dL (8.4-10.5)
[2019-01-08 13:21] LABS: CK MB% 2.3 % (2.5-3.0); CK-MB 11.9 ng/mL (0.0-3.6)
[2019-01-08] MEDS ORDERED: Desmopressin 20 MCG in Sodium Chloride 0.9% 50 ML IV ONE (13:34)
[2019-01-08] MEDS ORDERED: levETIRAcetam 1000mg/100ml NS 100 ML IV ONE (13:38)
[2019-01-08 14:15] LABS: PH,URINE 7.5 (4.7-8.0); URINE BILIRUBIN NEGATIVE (NEGATIVE); URINE BLOOD MODERATE (NEGATIVE); URINE GLUCOSE (UA) NEGATIVE (NEGATIVE); URINE LEUKOCYTE ESTERASE MODERATE Leu/uL (NEGATIVE); URINE PROTEIN >=300 mg/dL (<30 mg/dL); URINE UROBILINOGEN 0.2 E.U./dL (<1 E.U./dL)
[2019-01-08 14:16] LABS: URINE APPEARANCE TURBID (CLEAR); URINE COLOR YELLOW (YELLOW)
[2019-01-08 14:18] LABS: URINE RBC 0 - 2 /hpf (0-2); URINE WBC TNTC /hpf (0-6)
[2019-01-08 14:19] LABS: URINE BACTERIA MANY /hpf
--- NOTE | 2019-01-08 14:24 | CP.PCM.PN ---
Subjective - Date & Time of Evaluation Date of Evaluation: 01/08/19 Time of Evaluation: 14:18 - Subjective Subjective: 73 YO MALE HX HIV CRF ON DIALYSIS FOUND UNRESPONSIVE AT HOME UNCERTAIN OF DURATION OF COMA AT HOME PUPILS FIXED AND DILATED COMATOSE MASSIVE SDH AND SAH WITH MASSIVE SHIFT AND HYPODENSITY OF BRAINSTEM THERE IS NO REALISTIC CHANCE OF REVERSAL OF THIS STATE GIVEN HIS CURRENT CONDITION SUGGEST PALIATIVE CARE AND DNR Objective - Vital Signs/Intake and Output Vital Signs (last 24 hours): Temp Pulse Resp BP Pulse Ox 98.2 F 78 98 H 126/88 99 01/08/19 11:23 01/08/19 13:30 01/08/19 13:30 01/08/19 13:30 01/08/19 13:30 - Medications Medications: Current Medications Propofol (Diprivan) 1,000 mg in 100 mls @ 1.721 mls/hr IV .Q24H PRN; Protocol PRN Reason: TITRATE PER MD ORDER Last Admin: 01/08/19 11:58 Dose: 1.721 mls/hr - Labs Labs: 01/08/19 11:27 01/08/19 11:27 PT 12.3 SECONDS (9.4-12.5) 01/08/19 11:27 INR 1.09 01/08/19 11:27 APTT 43.1 Seconds (26.9-38.3) H 01/08/19 11:27
--- NOTE | 2019-01-08 14:42 | CT ---
Date of service: 01/08/2019 PROCEDURE: CT HEAD WITHOUT CONTRAST. HISTORY: altered mentation COMPARISON: None available. TECHNIQUE: Axial computed tomography images were obtained through the head/brain without intravenous contrast. Radiation dose: Total exam DLP = 926.33 mGy-cm. This CT exam was performed using one or more of the following dose reduction techniques: Automated exposure control, adjustment of the mA and/or kV according to patient size, and/or use of iterative reconstruction technique. FINDINGS: HEMORRHAGE: There is a large subdural hematoma over the left hemisphere measuring 25 mm in thickness. There is severe mass effect with 20 mm of midline shift. There is subfalcine and uncal herniation. There is compression of the brainstem and obliteration of the basal cisterns. BRAIN: As above VENTRICLES: There is compression of the left lateral ventricle. There enlargement of the right occipital and temporal horns with surrounding vasogenic edema consistent with obstructive hydrocephalus. CALVARIUM: Unremarkable. PARANASAL SINUSES: Unremarkable as visualized. No significant inflammatory changes. MASTOID AIR CELLS: Unremarkable as visualized. No inflammatory changes. OTHER FINDINGS: Findings were discussed with Dr. Quiroz at 2:30 p.m. IMPRESSION: There is a large subdural hematoma over the left hemisphere measuring 25 mm in thickness. There is severe mass effect with 20 mm of midline shift. There is subfalcine and uncal herniation. There is compression of the brainstem and obliteration of the basal cisterns. There is compression of the left lateral ventricle. There enlargement of the right occipital and temporal horns with surrounding vasogenic edema consistent with obstructive hydrocephalus.
--- NOTE | 2019-01-08 14:44 | CT ---
Date of service: 01/08/2019 PROCEDURE: CT Cervical Spine without contrast HISTORY: trauma COMPARISON: None available. TECHNIQUE: Axial computed tomography images were obtained of the cervical spine without the use of intravenous contrast. Coronal and sagittal reformatted images were created and reviewed. Radiation dose: Total exam DLP = 454.07 mGy-cm. This CT exam was performed using one or more of the following dose reduction techniques: Automated exposure control, adjustment of the mA and/or kV according to patient size, and/or use of iterative reconstruction technique. FINDINGS: VERTEBRAE: There is kyphosis of the cervical spine. There is no acute fracture DISCS/SPINAL CANAL/NEURAL FORAMINA: No significant central canal or neural foraminal stenosis. Severe multilevel disc degeneration is seen PARASPINAL SOFT TISSUES: Unremarkable. OTHER FINDINGS: None. IMPRESSION: Severe degenerative changes. Cervical kyphosis. No acute fracture
--- NOTE | 2019-01-08 14:47 | CP.PCM.CON ---
History of Present Illness - History of Present Illness History of Present Illness: CONSULT NOTE MICU HPI Patient is 73yo male with PMHX HIV, COPD, Vertigo, Diabetes, Prostate Cancer, and ESRD on dialysis, last known to normal state 2 days ago, was found down today at home. Patient brought in by EMS, on presentaiton, obtunded, unresponsive, intubated for airway protection. CTH without contrast, with SDH/SAH, with midline shift, effacement of brainstem. Neurosurgery consulted, no acute surgical intervention. Patient currently intubated, off sedation, non responsive. History obtained from sister/HCP Celi PMHx HIV, COPD, Vertigo, Diabetes, Prostate Cancer, and ESRD on dialysis, PSHx R AKA Meds as per EMR FHX NC Social (-)smoking, etoh, drug use Review of Systems - Review of Systems Review of Systems: cannot obtain Past Patient History - Infectious Disease Hx of Infectious Diseases: None - Tetanus Immunizations Tetanus Immunization: Up to Date - Past Medical History & Family History Past Medical History?: Yes - Past Social History Smoking Status: Never Smoked - CARDIAC Hx Cardiac Disorders: Yes Hx Hypertension: Yes - PULMONARY Hx Chronic Obstructive Pulmonary Disease (COPD): Yes - NEUROLOGICAL Hx Neurological Disorder: No - HEENT Hx HEENT Problems: No - RENAL Hx Renal Failure: Yes - ENDOCRINE/METABOLIC Hx Diabetes Mellitus Type 2: Yes - HEMATOLOGICAL/ONCOLOGICAL Hx Blood Disorders: Yes Hx Cancer: Yes (PROSTATE CA) - INTEGUMENTARY Hx Dermatological Problems: Yes - MUSCULOSKELETAL/RHEUMATOLOGICAL Hx Musculoskeletal Disorders: Yes (RIGHT BKA) Hx Falls: Yes Hx Osteomyelitis: Yes Hx Unsteady Gait: Yes - GASTROINTESTINAL Hx Gastrointestinal Disorders: Yes (GI BLEED,H/O C DIFF 1-16-18) Hx Gastroesophageal Reflux: Yes - GENITOURINARY/GYNECOLOGICAL Hx Genitourinary Disorders: Yes (ANURIA) Hx Prostate Problems: Yes (PROSTATE CA) - PSYCHIATRIC Hx Psychophysiologic Disorder: No Hx Substance Use: No - SURGICAL HISTORY Other/Comment: R AKA - ANESTHESIA Hx Anesthesia: Yes Hx Anesthesia Reactions: No Hx Malignant Hyperthermia: No Meds Allergies/Adverse Reactions: Allergies Allergy/AdvReac Type Severity Reaction Status Date / Time banana Allergy SWELLING Verified 01/08/19 11:30 shrimp Allergy SWELLING Verified 01/08/19 11:30 - Medications Medications: Current Medications Propofol (Diprivan) 1,000 mg in 100 mls @ 1.721 mls/hr IV .Q24H PRN; Protocol PRN Reason: TITRATE PER MD ORDER Last Admin: 01/08/19 11:58 Dose: 1.721 mls/hr Physical Exam - Constitutional Appears: No Acute Distress, Older Than Stated Age, Cachectic, Chronically Ill - Head Exam Head Exam: ATRAUMATIC - Eye Exam Additional comments: fixed dilated - ENT Exam ENT Exam: Mucous Membranes Dry - Respiratory Exam Respiratory Exam: Clear to Auscultation Bilateral, NORMAL BREATHING PATTERN - Cardiovascular Exam Cardiovascular Exam: REGULAR RHYTHM, +S1, +S2 - GI/Abdominal Exam GI & Abdominal Exam: Normal Bowel Sounds, Soft - Neurological Exam Neurological exam: Altered Additional comments: fixed dilated pupils no response to painful stimuli +gar, +corneal reflex - Skin Skin Exam: Normal Color, Warm Results - Vital Signs Recent Vital Signs: Last Vital Signs Temp 98.2 F 01/08/19 11:23 Pulse 78 01/08/19 13:30 Resp 98 H 01/08/19 13:30 BP 126/88 01/08/19 13:30 Pulse Ox 99 01/08/19 13:30 - Labs Result Diagrams: 01/08/19 11:27 01/08/19 11:27 Labs: Laboratory Results - last 24 hr 01/08/19 01/08/19 01/08/19 11:27 11:27 11:27 WBC 13.5 H D RBC 3.82 Hgb 12.1 L D Hct 38.3 L MCV 100.3 MCH 31.7 MCHC 31.6 RDW 18.0 H Plt Count 331 MPV 10.3 Neut % (Auto) 60.1 Lymph % (Auto) 22.3 Aurora % (Auto) 17.3 H Eos % (Auto) 0.2 L Baso % (Auto) 0.1 Lymph # (Auto) 3.0 Aurora # (Auto) 2.3 H Eos # (Auto) 0.0 Baso # (Auto) 0.02 Absolute Neuts (auto) 8.08 H PT 12.3 INR 1.09 APTT 43.1 H pCO2 pO2 HCO3 ABG pH ABG Total CO2 ABG O2 Saturation ABG Base Excess ABG Potassium Glucose Lactate Mechanical Rate FiO2 Tidal Volume PEEP Sodium 144 Potassium 5.2 H Chloride 94 L Carbon Dioxide 26 Anion Gap 28 H BUN 119 H Creatinine 10.8 H* D Est GFR ( Amer) 6 Est GFR (Non-Af Amer) 5 Random Glucose 118 H Calcium 8.7 Phosphorus 7.8 H Magnesium 2.4 H Total Bilirubin 0.6 AST 62 H D ALT 13 Alkaline Phosphatase 80 Total Creatine Kinase 525 H CK-MB (CK-2) 11.9 H CK-MB (CK-2) % 2.3 L Troponin I 1.36 H* D Total Protein 9.4 H Albumin 4.3 Globulin 5.1 Albumin/Globulin Ratio 0.8 L Lipase 106 TSH 3rd Generation Arterial Blood Potassium Urine Color Urine Appearance Urine pH Ur Specific Aspen Urine Protein Urine Glucose (UA) Urine Ketones Urine Blood Urine Nitrate Urine Bilirubin Urine Urobilinogen Ur Leukocyte Esterase Urine RBC Urine WBC Urine Bacteria BBK History Checked 01/08/19 01/08/19 01/08/19 11:27 11:30 12:10 WBC RBC Hgb Hct MCV MCH MCHC RDW Plt Count MPV Neut % (Auto) Lymph % (Auto) Aurora % (Auto) Eos % (Auto) Baso % (Auto) Lymph # (Auto) Aurora # (Auto) Eos # (Auto) Baso # (Auto) Absolute Neuts (auto) PT INR APTT pCO2 38 pO2 402.0 H HCO3 24.1 ABG pH 7.41 ABG Total CO2 25.3 ABG O2 Saturation 98.2 H ABG Base Excess -0.3 ABG Potassium 4.7 Glucose 99 Lactate 1.3 Mechanical Rate 16 FiO2 100.0 Tidal Volume 400 PEEP 5 Sodium 137.0 Potassium Chloride 102.0 Carbon Dioxide Anion Gap BUN Creatinine Est GFR ( Amer) Est GFR (Non-Af Amer) Random Glucose Calcium Phosphorus Magnesium Total Bilirubin AST ALT Alkaline Phosphatase Total Creatine Kinase CK-MB (CK-2) CK-MB (CK-2) % Troponin I Total Protein Albumin Globulin Albumin/Globulin Ratio Lipase TSH 3rd Generation 0.47 Arterial Blood Potassium 4.7 Urine Color Urine Appearance Urine pH Ur Specific Aspen Urine Protein Urine Glucose (UA) Urine Ketones Urine Blood Urine Nitrate Urine Bilirubin Urine Urobilinogen Ur Leukocyte Esterase Urine RBC Urine WBC Urine Bacteria BBK History Checked Patient has bt 01/08/19 13:55 WBC RBC Hgb Hct MCV MCH MCHC RDW Plt Count MPV Neut % (Auto) Lymph % (Auto) Aurora % (Auto) Eos % (Auto) Baso % (Auto) Lymph # (Auto) Aurora # (Auto) Eos # (Auto) Baso # (Auto) Absolute Neuts (auto) PT INR APTT pCO2 pO2 HCO3 ABG pH ABG Total CO2 ABG O2 Saturation ABG Base Excess ABG Potassium Glucose Lactate Mechanical Rate FiO2 Tidal Volume PEEP Sodium Potassium Chloride Carbon Dioxide Anion Gap BUN Creatinine Est GFR ( Amer) Est GFR (Non-Af Amer) Random Glucose Calcium Phosphorus Magnesium Total Bilirubin AST ALT Alkaline Phosphatase Total Creatine Kinase CK-MB (CK-2) CK-MB (CK-2) % Troponin I Total Protein Albumin Globulin Albumin/Globulin Ratio Lipase TSH 3rd Generation Arterial Blood Potassium Urine Color Yellow Urine Appearance Turbid Urine pH 7.5 Ur Specific Aspen >= 1.030 Urine Protein >=300 H Urine Glucose (UA) Negative Urine Ketones Trace H Urine Blood Moderate H Urine Nitrate Positive H Urine Bilirubin Negative Urine Urobilinogen 0.2 Ur Leukocyte Esterase Moderate H Urine RBC 0 - 2 Urine WBC Tntc H Urine Bacteria Many BBK History Checked Assessment & Plan - Assessment and Plan (Free Text) Assessment: 73yo male with acute SDH/SAH with midline shift SDH/SAH ESRD on HD HTN HIV - currently afebrile, HD stable, neuro exam as stated - NSG consulted, no acute intervention, suggesting palliative care - palliative care to be consulted Recommend: - vent support, low tidal vol ventilation - NO ID issues - cont with HAART - BP control, SBP<140 - FS control - Na 144 - palliative care eval - will discuss with family palliative care options Overall prognosis extremely poor Admit to MICU Critical care time 35 minutes
[2019-01-08 15:06] LABS: TROPONIN I 1.36 ng/mL
--- NOTE | 2019-01-08 15:22 | RAD ---
Date of service: 01/08/2019 HISTORY: tube placement, aspiration COMPARISON: No prior. TECHNIQUE: 1 view obtained. FINDINGS: LUNGS: No active pulmonary disease. Endotracheal tube in satisfactory position PLEURA: No significant pleural effusion identified, no pneumothorax apparent. CARDIOVASCULAR: No aortic atherosclerotic calcification present. Normal cardiac size. No pulmonary vascular congestion. OSSEOUS STRUCTURES: No significant abnormalities. VISUALIZED UPPER ABDOMEN: Normal. OTHER FINDINGS: None. IMPRESSION: No active disease.
--- NOTE | 2019-01-08 19:31 | CARD ---
APPROVED REPORT Date of service: 01/08/2019 EKG Measurement Heart [id number] <Conclusion> Sinus tachycardia with occasional premature ventricular complexes Possible Left atrial enlargement Left ventricular hypertrophy Cannot rule out Septal infarct, age undetermined Abnormal ECG
--- NOTE | 2019-01-08 21:14 | HP ---
DATE OF EXAM: 01/08/2019 HISTORY OF PRESENT ILLNESS: I have known Raza for a while now for a few years. He is a 73-year-old man who I do house calls on. He has got a past medical history of HIV, COPD, diabetes, prostate cancer and end-stage renal disease on dialysis. He was brought in by ambulance after being found unresponsive at home, not sure if he had fallen or hit his head or tripped. We do not know what happened, was found on the bathroom floor by his sister unresponsive and covered in stool. We do not know how long he was down. We do not know how he fell or if he hit his head. PAST MEDICAL HISTORY: He has hypertension, COPD, renal failure on dialysis, diabetes, prostate cancer, a right AKA from peripheral vascular disease, multiple falls, osteomyelitis, unsteady gait, GI bleed in the past, history of C. diff, GERD, anuria, prostate cancer. FAMILY HISTORY: Unknown family history. SOCIAL HISTORY: No smoker. No drinking. No drugs. ALLERGIES: TO BANANA AND SHRIMP. MEDICATIONS: He is on vitamin D, Lopressor, Lipitor, vitamins, Lasix and sevelamer. REVIEW OF SYSTEMS: I cannot do a review of systems, he is completely out of it. When I saw him, he was on the ventilator, unresponsive. PHYSICAL EXAMINATION VITAL SIGNS: He has a 99.1 temperature, 85 pulse, 141/83 blood pressure, and 99% O2 sat. GENERAL: He is not alert. He is well-developed. HEART: Regular rate. LUNGS: Decreased breath sounds, but clear to auscultation. ABDOMEN: Soft, nontender from what I could tell. He is non responsive. No guarding, no rebound. He is not rigid. Positive bowel sounds. EXTREMITIES: Have no edema. He does have a right AKA. SKIN: Fair turgor. NEUROLOGIC: Not alert. LABORATORY DATA: He had multiple tests done. He had a CT scan of the head that shows a large subdural hematoma over the left hemisphere, severe mass effect. There is sub-falcine and uncal herniation, compression of the brainstem, it is not good. His CT scan of the cervical spine; severe degenerative changes. No fracture. Chest x-ray; no active disease. EKG is sinus tachycardia at 112. He was intubated. He had an elevated troponin, subdural hematoma. He has a 13.5 white count, 12.1 hemoglobin, 38.3 hematocrit with a 331 platelets. INR is 1.09. He has a 144 sodium, potassium 5.2, BUN , creatinine was 10.8 on dialysis, GFR is 5, sugar is 111, calcium is 8.7, phosphorous 7.8, magnesium 2.4, total bili is 0.6. AST is 62, ALT is 13, alk phos is 80, troponin is 1.36, total protein is 9.4. TSH is 0.47. Urine showed many bacteria. ASSESSMENT AND PLAN: He has a severe subdural hematoma, troponins and urinary tract infection. He is on a ventilator with acute respiratory disease. There is not much we can do. We will get consultations in, but I believe he is going to end up on palliative care hospice and probably needs to be terminally extubated eventually. We will continue aggressive care at this time on Raza Sagastume. He is in the Intensive Care Unit. Parag Brownlee DO [facility]
[2019-01-08 21:46] VITALS: RESP 18
[2019-01-08] MEDS ORDERED: Pneumococcal 23-Valent Vaccine IM ONE (21:47)
--- NOTE | 2019-01-08 23:14 | CON ---
DATE: 01/08/2019 HISTORY OF PRESENT ILLNESS: This is a 73-year-old male with past medical history of HIV, COPD, vertigo, diabetes, prostate cancer, endstage renal disease on dialysis. The patient was in normal state two days ago and became lethargic, obtunded, and unresponsive. Came to the ER, was intubated. CAT scan of the head was done, which shows a left subdural hematoma with a midline shift and effacement of the brain stem. Neurosurgery was consulted. No surgical intervention recommended. PAST MEDICAL HISTORY: HIV, COPD, vertigo, diabetes, prostate cancer, endstage renal disease on dialysis. PAST SURGICAL HISTORY: Right above-knee amputation. REVIEW OF SYSTEMS: The patient is obtunded. ALLERGIES: TO BANANA AND SHRIMP. PHYSICAL EXAMINATION: HEENT: The patient is unresponsive to verbal commands. Pupils fixed and dilated. VITAL SIGNS: Blood pressure 126/88. NEUROLOGIC: No spontaneous movement of the extremities noted. Deep tendon reflexes 1+. Gag reflex present. Corneal reflex present. LABORATORY DATA: WBC of 13.5, hemoglobin 12.1, hematocrit 38.3 and platelets 331. Sodium 144, potassium 5.2, chloride 94, CO2 of 26, glucose 118, BUN 119 and creatinine 10.8. IMPRESSION AND PLAN: A 73-year-old with acute subdural hemorrhage with a shift, endstage renal disease on hemodialysis, hypertension, human immunodeficiency virus. Neurosurgeon consulted. Workup in progress. Continue present management. Prognosis is poor. Jem Aggarwal MD
[2019-01-09 04:01] VITALS: O2SAT 100
[2019-01-09 06:47] LABS: BASO # 0.02 K/mm3 (0.0-2.0); BASO % 0.1 % (0.0-3.0); EOS # 0.1 (0.0-0.7); EOS % 0.3 % (1.5-5.0); HEMOGLOBIN 11.7 g/dL (14.0-18.0); LYMPH # 2.8 (1.2-3.4); LYMPH % 17.6 % (22.0-35.0); MEAN CORPUSCULAR HEMOGLOBIN 30.7 pg (25.0-35.0); MEAN CORPUSCULAR HGB CONC 30.7 g/dl (31.0-37.0); MEAN PLATELET VOLUME 10.9 fl (7.0-11.0); MONO # 2.2 (0.1-0.6); MONO % 14.1 % (1.0-6.0); RBC 3.81 10^6/uL (3.5-6.1); RED CELL DISTRIBUTION WIDTH 17.8 % (11.5-14.5); WHITE BLOOD COUNT 15.6 10^3/uL (4.5-11.0)
[2019-01-09 07:15] LABS: ALB/GLOB RATIO 0.9 (1.1-1.8); ALBUMIN 3.8 g/dL (3.0-4.8); CALCIUM 8.3 mg/dL (8.4-10.5)
--- NOTE | 2019-01-09 07:22 | PCM.PCON ---
History of Present Illness - History of Present Illness History of Present Illness: Palliative consult requested by Dr Brownlee Reason: Goals of care This is a 73 year old male with history of HIV, COPD, DM,prostate cancer, and ESRD on dialysis last spoken to family yesterday. Sisters concerned because he did not go to dialysis yesterday and went to his apartment. He was found unresponsive>t EMS called. He was btunded, unresponsive so he was intubated for airway protection. CT of head : SDH/SAH, with midline shift, effacement of brainstem. Neurosurgery consulted, no acute surgical intervention. CT spine: degenerative changes Labs: Wbc 13.5,hgb 12.1, Plt 331,, Na 144, K 52, BUN 119, Business Continuity Management Director 10.8, AST 62, TCK 525, CKMB 11.9, Tropinin 1.38 PMHx:HIV, COPD, Vertigo, Diabetes, Prostate Cancer, and ESRD on dialysis(T-TH-Sat) PSHx: R AKA. dialysis cath Family History : Non contributory Social History: Never smoker, no alcohol or drug use. Lives alone, HD T-TH Sat Advance Care Planning: he did not have an advanced directive Review of Systems: Unable to obtain, intubated, obtunded Physical Exam - Constitutional Appears: Chronically Ill Additional comments: Vital signs: T 100.2, BP 160/100, P 102, intubated - Head Exam Head Exam: NORMOCEPHALIC - Eye Exam Eye Exam: PERRL - ENT Exam ENT Exam: Mucous Membranes Moist - Respiratory Exam Respiratory Exam: Decreased Breath Sounds - Cardiovascular Exam Cardiovascular Exam: REGULAR RHYTHM, +S1, +S2 - GI/Abdominal Exam GI & Abdominal Exam: Normal Bowel Sounds, Soft - Extremities Exam Extremities exam: Positive for: pedal pulses present Additional comments: right AKA - Skin Skin Exam: Dry, Warm - Additional Findings Additional findings: Palliative performance scale rating 10% Palliative Care Assessment - Ralph Scale Sensory Perception: Completely Limited Moisture: Occasionally Moist Activity: Bedfast Mobility: Completely Immobile Nutrition: Very Poor Friction & Shear: Problem Total Score - Skin Risk Assessment: 8 - Psychosocial Distress Patient screened for psychosocial distress: Yes Palliative Care - Goals Treatment Goal(s): Alleviate symptoms, Improve quality of life End of life care discussed: Yes - Plan Interdisciplinary involved: Nurse, field worker Assessment & Plan - Assessment and Plan (Free Text) Assessment: 73 yo male with history HIV, COPD, vertigo, DM, prostate cancer, and ESRD on dialysis who is admitted with a large subdural hematoma, subfalcine and uncal herniation with midline shift. Patients sisters at bedside. They have been updated of his condition by [employer], Dr Stewart and neurosurgery, Dr Hernandez. They are aware that he has significant bleeding into his brain with complications of swelling and shift. They are aware that he is not a candidate for surgery and that prognosis ins grim. They state that he does not have an advanced directive and they had not discussed his wishes ragging resuscitation. Burdens of CPR explained. Sisters understand the gravity of situation.They do not want to make him DNR until other siblings can be contacted. They are aware that he may not survive the Psychosocial support provided. Welding Manager called for spiritual support Siblings: Celi Gutierrez [phone] Liz Gudino [phone] Time spent with family in goals of care and advance care planning, 30 minutes Plan: Goals of care Continue vent support Neurosurgery : not a candidate Neurology recs pending Monitor glucose levels, Monitor BP
[2019-01-09] MEDS ORDERED: Dextrose 50% SYRINGE Inj (50 ml) IVP ONE (07:27)
[2019-01-09] MEDS ORDERED: Insulin Regular 1 UNITS/0.01 ML ML IVP ONE (07:28)
[2019-01-09] MEDS ORDERED: Albuterol 0.083% Inhal Sol (2.5 mg/3 mL) UD INH ONE (07:28)
[2019-01-09] MEDS ORDERED: Sodium Chloride 0.9% 1,000 ML IV SCH (07:45)
[2019-01-09 09:06] LABS: ARTERIAL BLOOD GAS HCO3 19.7 mmol/L (21-28); ARTERIAL BLOOD GAS HEMOGLOBIN 10.9 g/dL (11.7-17.4); ARTERIAL BLOOD GAS O2 CAPACITY 14.9 mL/dl (16-24); ARTERIAL BLOOD GAS O2 CONTENT 14.6 ML/dl (15-23); ARTERIAL BLOOD GAS O2 SAT 97.8 % (95-98); ARTERIAL BLOOD GAS PCO2 34 mm/Hg (35-45); ARTERIAL BLOOD GAS PH 7.37 (7.35-7.45); ARTERIAL BLOOD GAS TCO2 20.7 mmol.L (22-28)
--- NOTE | 2019-01-09 09:53 | CARD ---
APPROVED REPORT Date of service: 01/09/2019 EKG Measurement Heart [id number] <Conclusion> Sinus rhythm with premature atrial complexes with aberrant conduction Right atrial enlargement Moderate voltage criteria for LVH, may be normal variant Prolonged QT Abnormal ECG
--- NOTE | 2019-01-09 10:03 | CP.CCUPN ---
<Rafael Clemons - Last Filed: 01/09/19 12:10> CCU Subjective - Physician Review Subjective (Free Text): 01/09/19 09:58 Rafael Clemons, PGY-1 Critical Care Progress Note Patient seen and evaluated at bedside. Febrile overnight with Tmax 100.8. Remains GCS3T without response to painful stimuli. Further ROS unable to be obtained. CCU Objective - Vital Signs / Intake & Output Vital Signs (Last 4 hours): Vital Signs Temp Pulse BP Pulse Ox 01/09/19 06:00 100.4 F H 91 H 150/98 H 100 Intake and Output (Last 8hrs): Intake & Output 01/08/19 01/09/19 01/09/19 22:59 06:59 14:59 Intake Total 0 Output Total 100 150 Balance -100 -150 Weight 57.379 kg 57.198 kg Intake: Oral 0 Output: Urine 100 150 Urethral (Augustin) 100 150 Other: # Bowel Movements 0 0 - Physical Exam Head: Positive for: Contusion (on left eyebrow ) Pupils: Negative for: PERRL (pupils remain nonreactive to light and b/l 4 mm) Respiratory/Chest: Positive for: Other (coarse breath sounds bilaterally ) Cardiovascular: Positive for: Other (Heart rate rapid, regular rhythm ). Negative for: Murmurs Abdomen: Positive for: Other (soft). Negative for: Distention Genitourinary Male: Positive for: Other (Augustin in place) Back: Positive for: Normal Inspection Upper Extremity: Positive for: Normal Inspection. Negative for: Cyanosis, Edema Lower Extremity: Negative for: Edema Neurological: Negative for: GCS=15, CN II-XII Intact Skin: Positive for: Warm, Dry, Other (chronic skin changes in left leg. ). Negative for: Rashes Psychiatric: Negative for: Alert, Oriented x 3 - Medications Active Medications: Active Medications Generic Name Dose Route Start Last Admin Trade Name Freq PRN Reason Stop Dose Admin Sodium Chloride 1,000 mls @ 100 mls/hr 01/09/19 07:45 01/09/19 08:33 Sodium Chloride 0.9% IV 100 mls/hr .Q10H DWAIN Administration - Patient Studies Lab Studies: Lab Studies 01/09/19 01/09/19 01/09/19 Range/Units 09:00 06:20 06:20 WBC 15.6 H (4.5-11.0) 10^3/uL RBC 3.81 (3.5-6.1) 10^6/uL Hgb 11.7 L (14.0-18.0) g/dL Hct 38.1 L (42.0-52.0) % MCV 100.0 (80.0-105.0) fl MCH 30.7 (25.0-35.0) pg MCHC 30.7 L (31.0-37.0) g/dl RDW 17.8 H (11.5-14.5) % Plt Count 275 (120.0-450.0) 10^3/uL MPV 10.9 (7.0-11.0) fl Neut % (Auto) 67.9 (50.0-68.0) % Lymph % (Auto) 17.6 L (22.0-35.0) % Lawrence % (Auto) 14.1 H (1.0-6.0) % Eos % (Auto) 0.3 L (1.5-5.0) % Baso % (Auto) 0.1 (0.0-3.0) % Lymph # (Auto) 2.8 (1.2-3.4) Lawrence # (Auto) 2.2 H (0.1-0.6) Eos # (Auto) 0.1 (0.0-0.7) Baso # (Auto) 0.02 (0.0-2.0) K/mm3 Absolute Neuts (auto) 10.59 H (1.4-6.5) PT (9.4-12.5) SECONDS INR APTT (26.9-38.3) Seconds pCO2 34 L (35-45) mm/Hg pO2 163.0 H (80-100) mm/Hg HCO3 19.7 L (21-28) mmol/L ABG pH 7.37 (7.35-7.45) ABG Total CO2 20.7 L (22-28) mmol.L ABG O2 Saturation 97.8 (95-98) % ABG O2 Content 14.6 L (15-23) ML/dl ABG Base Excess -4.9 L (-2.0-3.0) mmol/L ABG Hemoglobin 10.9 L (11.7-17.4) g/dL ABG Carboxyhemoglobin 1.5 (0.5-1.5) % POC ABG HHb (Measured) 2.1 (0-5) % ABG Methemoglobin 3.1 H (0.0-3.0) % ABG O2 Capacity 14.9 L (16-24) mL/dl ABG Potassium (3.6-5.2) mmol/L Hgb O2 Saturation 93.3 L (95.0-98.0) % Glucose (75-110) mg/dl Lactate (0.7-2.1) mmol/L Mechanical Rate FiO2 50.0 % Tidal Volume PEEP Sodium 143 (132-148) mmol/L Potassium 5.8 H* (3.6-5.0) mmol/L Chloride 98 (98-107) mmol/L Carbon Dioxide 22 (21-33) mmol/L Anion Gap 29 H (10-20) BUN 120 H (7-21) mg/dL Creatinine 11.1 H* (0.8-1.5) mg/dl Est GFR ( Amer) 5 Est GFR (Non-Af Amer) 5 POC Glucose (mg/dL) (65-110) mg/dL Random Glucose 77 (70-110) mg/dL Calcium 8.3 L (8.4-10.5) mg/dL Phosphorus 7.0 H (2.5-4.5) mg/dL Magnesium 2.4 H (1.7-2.2) mg/dL Total Bilirubin 0.5 (0.2-1.3) mg/dL AST 47 (17-59) U/L ALT 15 (7-56) U/L Alkaline Phosphatase 74 (38-126) U/L Total Creatine Kinase (35-230) U/L CK-MB (CK-2) (0.0-3.6) ng/mL CK-MB (CK-2) % (2.5-3.0) % Troponin I ng/mL Total Protein 8.3 (5.8-8.3) g/dL Albumin 3.8 (3.0-4.8) g/dL Globulin 4.4 gm/dL Albumin/Globulin Ratio 0.9 L (1.1-1.8) Lipase (23-300) U/L TSH 3rd Generation (0.46-4.68) mIU/mL Arterial Blood Potassium (3.6-5.2) mmol/L Urine Color (YELLOW) Urine Appearance (CLEAR) Urine pH (4.7-8.0) Ur Specific [place] (1.005-1.035) Urine Protein (<30 mg/dL) mg/dL Urine Glucose (UA) (NEGATIVE) mg/dL Urine Ketones (NEGATIVE) mg/dL Urine Blood (NEGATIVE) Urine Nitrate (NEGATIVE) Urine Bilirubin (NEGATIVE) Urine Urobilinogen (<1 E.U./dL) E.U./dL Ur Leukocyte Esterase (NEGATIVE) Tom/uL Urine RBC (0-2) /hpf Urine WBC (0-6) /hpf Urine Bacteria (NONE) /hpf Blood Type Antibody Screen BBK History Checked 01/08/19 01/08/19 01/08/19 Range/Units 23:07 16:36 13:55 WBC (4.5-11.0) 10^3/uL RBC (3.5-6.1) 10^6/uL Hgb (14.0-18.0) g/dL Hct (42.0-52.0) % MCV (80.0-105.0) fl MCH (25.0-35.0) pg MCHC (31.0-37.0) g/dl RDW (11.5-14.5) % Plt Count (120.0-450.0) 10^3/uL MPV (7.0-11.0) fl Neut % (Auto) (50.0-68.0) % Lymph % (Auto) (22.0-35.0) % Lawrence % (Auto) (1.0-6.0) % Eos % (Auto) (1.5-5.0) % Baso % (Auto) (0.0-3.0) % Lymph # (Auto) (1.2-3.4) Lawrence # (Auto) (0.1-0.6) Eos # (Auto) (0.0-0.7) Baso # (Auto) (0.0-2.0) K/mm3 Absolute Neuts (auto) (1.4-6.5) PT (9.4-12.5) SECONDS INR APTT (26.9-38.3) Seconds pCO2 (35-45) mm/Hg pO2 (80-100) mm/Hg HCO3 (21-28) mmol/L ABG pH (7.35-7.45) ABG Total CO2 (22-28) mmol.L ABG O2 Saturation (95-98) % ABG O2 Content (15-23) ML/dl ABG Base Excess (-2.0-3.0) mmol/L ABG Hemoglobin (11.7-17.4) g/dL ABG Carboxyhemoglobin (0.5-1.5) % POC ABG HHb (Measured) (0-5) % ABG Methemoglobin (0.0-3.0) % ABG O2 Capacity (16-24) mL/dl ABG Potassium (3.6-5.2) mmol/L Hgb O2 Saturation (95.0-98.0) % Glucose (75-110) mg/dl Lactate (0.7-2.1) mmol/L Mechanical Rate FiO2 % Tidal Volume PEEP Sodium (132-148) mmol/L Potassium (3.6-5.0) mmol/L Chloride (98-107) mmol/L Carbon Dioxide (21-33) mmol/L Anion Gap (10-20) BUN (7-21) mg/dL Creatinine (0.8-1.5) mg/dl Est GFR ( Amer) Est GFR (Non-Af Amer) POC Glucose (mg/dL) 111 H (65-110) mg/dL Random Glucose (70-110) mg/dL Calcium (8.4-10.5) mg/dL Phosphorus (2.5-4.5) mg/dL Magnesium (1.7-2.2) mg/dL Total Bilirubin (0.2-1.3) mg/dL AST (17-59) U/L ALT (7-56) U/L Alkaline Phosphatase (38-126) U/L Total Creatine Kinase (35-230) U/L CK-MB (CK-2) (0.0-3.6) ng/mL CK-MB (CK-2) % (2.5-3.0) % Troponin I 1.25 H* ng/mL Total Protein (5.8-8.3) g/dL Albumin (3.0-4.8) g/dL Globulin gm/dL Albumin/Globulin Ratio (1.1-1.8) Lipase (23-300) U/L TSH 3rd Generation (0.46-4.68) mIU/mL Arterial Blood Potassium (3.6-5.2) mmol/L Urine Color Yellow (YELLOW) Urine Appearance Turbid (CLEAR) Urine pH 7.5 (4.7-8.0) Ur Specific [place] >= 1.030 (1.005-1.035) Urine Protein >=300 H (<30 mg/dL) mg/dL Urine Glucose (UA) Negative (NEGATIVE) mg/dL Urine Ketones Trace H (NEGATIVE) mg/dL Urine Blood Moderate H (NEGATIVE) Urine Nitrate Positive H (NEGATIVE) Urine Bilirubin Negative (NEGATIVE) Urine Urobilinogen 0.2 (<1 E.U./dL) E.U./dL Ur Leukocyte Esterase Moderate H (NEGATIVE) Tom/uL Urine RBC 0 - 2 (0-2) /hpf Urine WBC Tntc H (0-6) /hpf Urine Bacteria Many (NONE) /hpf Blood Type Antibody Screen BBK History Checked 01/08/19 01/08/19 01/08/19 Range/Units 12:10 11:30 11:27 WBC (4.5-11.0) 10^3/uL RBC (3.5-6.1) 10^6/uL Hgb (14.0-18.0) g/dL Hct (42.0-52.0) % MCV (80.0-105.0) fl MCH (25.0-35.0) pg MCHC (31.0-37.0) g/dl RDW (11.5-14.5) % Plt Count (120.0-450.0) 10^3/uL MPV (7.0-11.0) fl Neut % (Auto) (50.0-68.0) % Lymph % (Auto) (22.0-35.0) % Lawrence % (Auto) (1.0-6.0) % Eos % (Auto) (1.5-5.0) % Baso % (Auto) (0.0-3.0) % Lymph # (Auto) (1.2-3.4) Lawrence # (Auto) (0.1-0.6) Eos # (Auto) (0.0-0.7) Baso # (Auto) (0.0-2.0) K/mm3 Absolute Neuts (auto) (1.4-6.5) PT (9.4-12.5) SECONDS INR APTT (26.9-38.3) Seconds pCO2 38 (35-45) mm/Hg pO2 402.0 H (80-100) mm/Hg HCO3 24.1 (21-28) mmol/L ABG pH 7.41 (7.35-7.45) ABG Total CO2 25.3 (22-28) mmol.L ABG O2 Saturation 98.2 H (95-98) % ABG O2 Content (15-23) ML/dl ABG Base Excess -0.3 (-2.0-3.0) mmol/L ABG Hemoglobin (11.7-17.4) g/dL ABG Carboxyhemoglobin (0.5-1.5) % POC ABG HHb (Measured) (0-5) % ABG Methemoglobin (0.0-3.0) % ABG O2 Capacity (16-24) mL/dl ABG Potassium 4.7 (3.6-5.2) mmol/L Hgb O2 Saturation (95.0-98.0) % Glucose 99 (75-110) mg/dl Lactate 1.3 (0.7-2.1) mmol/L Mechanical Rate 16 FiO2 100.0 % Tidal Volume 400 PEEP 5 Sodium 137.0 (132-148) mmol/L Potassium (3.6-5.0) mmol/L Chloride 102.0 (98-107) mmol/L Carbon Dioxide (21-33) mmol/L Anion Gap (10-20) BUN (7-21) mg/dL Creatinine (0.8-1.5) mg/dl Est GFR ( Amer) Est GFR (Non-Af Amer) POC Glucose (mg/dL) (65-110) mg/dL Random Glucose (70-110) mg/dL Calcium (8.4-10.5) mg/dL Phosphorus (2.5-4.5) mg/dL Magnesium (1.7-2.2) mg/dL Total Bilirubin (0.2-1.3) mg/dL AST (17-59) U/L ALT (7-56) U/L Alkaline Phosphatase (38-126) U/L Total Creatine Kinase (35-230) U/L CK-MB (CK-2) (0.0-3.6) ng/mL CK-MB (CK-2) % (2.5-3.0) % Troponin I ng/mL Total Protein (5.8-8.3) g/dL Albumin (3.0-4.8) g/dL Globulin gm/dL Albumin/Globulin Ratio (1.1-1.8) Lipase (23-300) U/L TSH 3rd Generation 0.47 (0.46-4.68) mIU/mL Arterial Blood Potassium 4.7 (3.6-5.2) mmol/L Urine Color (YELLOW) Urine Appearance (CLEAR) Urine pH (4.7-8.0) Ur Specific [place] (1.005-1.035) Urine Protein (<30 mg/dL) mg/dL Urine Glucose (UA) (NEGATIVE) mg/dL Urine Ketones (NEGATIVE) mg/dL Urine Blood (NEGATIVE) Urine Nitrate (NEGATIVE) Urine Bilirubin (NEGATIVE) Urine Urobilinogen (<1 E.U./dL) E.U./dL Ur Leukocyte Esterase (NEGATIVE) Tom/uL Urine RBC (0-2) /hpf Urine WBC (0-6) /hpf Urine Bacteria (NONE) /hpf Blood Type O POSITIVE Antibody Screen Negative BBK History Checked Patient has bt 01/08/19 01/08/19 01/08/19 Range/Units 11:27 11:27 11:27 WBC 13.5 H D (4.5-11.0) 10^3/uL RBC 3.82 (3.5-6.1) 10^6/uL Hgb 12.1 L D (14.0-18.0) g/dL Hct 38.3 L (42.0-52.0) % MCV 100.3 (80.0-105.0) fl MCH 31.7 (25.0-35.0) pg MCHC 31.6 (31.0-37.0) g/dl RDW 18.0 H (11.5-14.5) % Plt Count 331 (120.0-450.0) 10^3/uL MPV 10.3 (7.0-11.0) fl Neut % (Auto) 60.1 (50.0-68.0) % Lymph % (Auto) 22.3 (22.0-35.0) % Lawrence % (Auto) 17.3 H (1.0-6.0) % Eos % (Auto) 0.2 L (1.5-5.0) % Baso % (Auto) 0.1 (0.0-3.0) % Lymph # (Auto) 3.0 (1.2-3.4) Lawrence # (Auto) 2.3 H (0.1-0.6) Eos # (Auto) 0.0 (0.0-0.7) Baso # (Auto) 0.02 (0.0-2.0) K/mm3 Absolute Neuts (auto) 8.08 H (1.4-6.5) PT 12.3 (9.4-12.5) SECONDS INR 1.09 APTT 43.1 H (26.9-38.3) Seconds pCO2 (35-45) mm/Hg pO2 (80-100) mm/Hg HCO3 (21-28) mmol/L ABG pH (7.35-7.45) ABG Total CO2 (22-28) mmol.L ABG O2 Saturation (95-98) % ABG O2 Content (15-23) ML/dl ABG Base Excess (-2.0-3.0) mmol/L ABG Hemoglobin (11.7-17.4) g/dL ABG Carboxyhemoglobin (0.5-1.5) % POC ABG HHb (Measured) (0-5) % ABG Methemoglobin (0.0-3.0) % ABG O2 Capacity (16-24) mL/dl ABG Potassium (3.6-5.2) mmol/L Hgb O2 Saturation (95.0-98.0) % Glucose (75-110) mg/dl Lactate (0.7-2.1) mmol/L Mechanical Rate FiO2 % Tidal Volume PEEP Sodium 144 (132-148) mmol/L Potassium 5.2 H (3.6-5.0) mmol/L Chloride 94 L (98-107) mmol/L Carbon Dioxide 26 (21-33) mmol/L Anion Gap 28 H (10-20) BUN 119 H (7-21) mg/dL Creatinine 10.8 H* D (0.8-1.5) mg/dl Est GFR ( Amer) 6 Est GFR (Non-Af Amer) 5 POC Glucose (mg/dL) (65-110) mg/dL Random Glucose 118 H (70-110) mg/dL Calcium 8.7 (8.4-10.5) mg/dL Phosphorus 7.8 H (2.5-4.5) mg/dL Magnesium 2.4 H (1.7-2.2) mg/dL Total Bilirubin 0.6 (0.2-1.3) mg/dL AST 62 H D (17-59) U/L ALT 13 (7-56) U/L Alkaline Phosphatase 80 (38-126) U/L Total Creatine Kinase 525 H (35-230) U/L CK-MB (CK-2) 11.9 H (0.0-3.6) ng/mL CK-MB (CK-2) % 2.3 L (2.5-3.0) % Troponin I 1.36 H* D ng/mL Total Protein 9.4 H (5.8-8.3) g/dL Albumin 4.3 (3.0-4.8) g/dL Globulin 5.1 gm/dL Albumin/Globulin Ratio 0.8 L (1.1-1.8) Lipase 106 (23-300) U/L TSH 3rd Generation (0.46-4.68) mIU/mL Arterial Blood Potassium (3.6-5.2) mmol/L Urine Color (YELLOW) Urine Appearance (CLEAR) Urine pH (4.7-8.0) Ur Specific [place] (1.005-1.035) Urine Protein (<30 mg/dL) mg/dL Urine Glucose (UA) (NEGATIVE) mg/dL Urine Ketones (NEGATIVE) mg/dL Urine Blood (NEGATIVE) Urine Nitrate (NEGATIVE) Urine Bilirubin (NEGATIVE) Urine Urobilinogen (<1 E.U./dL) E.U./dL Ur Leukocyte Esterase (NEGATIVE) Tom/uL Urine RBC (0-2) /hpf Urine WBC (0-6) /hpf Urine Bacteria (NONE) /hpf Blood Type Antibody Screen BBK History Checked Laboratory Results - last 24 hr 01/08/19 01/08/19 01/08/19 11:27 11:27 11:27 WBC 13.5 H D RBC 3.82 Hgb 12.1 L D Hct 38.3 L MCV 100.3 MCH 31.7 MCHC 31.6 RDW 18.0 H Plt Count 331 MPV 10.3 Neut % (Auto) 60.1 Lymph % (Auto) 22.3 Lawrence % (Auto) 17.3 H Eos % (Auto) 0.2 L Baso % (Auto) 0.1 Lymph # (Auto) 3.0 Lawrence # (Auto) 2.3 H Eos # (Auto) 0.0 Baso # (Auto) 0.02 Absolute Neuts (auto) 8.08 H PT 12.3 INR 1.09 APTT 43.1 H pCO2 pO2 HCO3 ABG pH ABG Total CO2 ABG O2 Saturation ABG O2 Content ABG Base Excess ABG Hemoglobin ABG Carboxyhemoglobin POC ABG HHb (Measured) ABG Methemoglobin ABG O2 Capacity ABG Potassium Hgb O2 Saturation Glucose Lactate Mechanical Rate FiO2 Tidal Volume PEEP Sodium 144 Potassium 5.2 H Chloride 94 L Carbon Dioxide 26 Anion Gap 28 H BUN 119 H Creatinine 10.8 H* D Est GFR ( Amer) 6 Est GFR (Non-Af Amer) 5 POC Glucose (mg/dL) Random Glucose 118 H Calcium 8.7 Phosphorus 7.8 H Magnesium 2.4 H Total Bilirubin 0.6 AST 62 H D ALT 13 Alkaline Phosphatase 80 Total Creatine Kinase 525 H CK-MB (CK-2) 11.9 H CK-MB (CK-2) % 2.3 L Troponin I 1.36 H* D Total Protein 9.4 H Albumin 4.3 Globulin 5.1 Albumin/Globulin Ratio 0.8 L Lipase 106 TSH 3rd Generation Arterial Blood Potassium Urine Color Urine Appearance Urine pH Ur Specific [place] Urine Protein Urine Glucose (UA) Urine Ketones Urine Blood Urine Nitrate Urine Bilirubin Urine Urobilinogen Ur Leukocyte Esterase Urine RBC Urine WBC Urine Bacteria Blood Type Antibody Screen BBK History Checked 01/08/19 01/08/19 01/08/19 11:27 11:30 12:10 WBC RBC Hgb Hct MCV MCH MCHC RDW Plt Count MPV Neut % (Auto) Lymph % (Auto) Lawrence % (Auto) Eos % (Auto) Baso % (Auto) Lymph # (Auto) Lawrence # (Auto) Eos # (Auto) Baso # (Auto) Absolute Neuts (auto) PT INR APTT pCO2 38 pO2 402.0 H HCO3 24.1 ABG pH 7.41 ABG Total CO2 25.3 ABG O2 Saturation 98.2 H ABG O2 Content ABG Base Excess -0.3 ABG Hemoglobin ABG Carboxyhemoglobin POC ABG HHb (Measured) ABG Methemoglobin ABG O2 Capacity ABG Potassium 4.7 Hgb O2 Saturation Glucose 99 Lactate 1.3 Mechanical Rate 16 FiO2 100.0 Tidal Volume 400 PEEP 5 Sodium 137.0 Potassium Chloride 102.0 Carbon Dioxide Anion Gap BUN Creatinine Est GFR ( Amer) Est GFR (Non-Af Amer) POC Glucose (mg/dL) Random Glucose Calcium Phosphorus Magnesium Total Bilirubin AST ALT Alkaline Phosphatase Total Creatine Kinase CK-MB (CK-2) CK-MB (CK-2) % Troponin I Total Protein Albumin Globulin Albumin/Globulin Ratio Lipase TSH 3rd Generation 0.47 Arterial Blood Potassium 4.7 Urine Color Urine Appearance Urine pH Ur Specific [place] Urine Protein Urine Glucose (UA) Urine Ketones Urine Blood Urine Nitrate Urine Bilirubin Urine Urobilinogen Ur Leukocyte Esterase Urine RBC Urine WBC Urine Bacteria Blood Type O POSITIVE Antibody Screen Negative BBK History Checked Patient has bt 01/08/19 01/08/19 01/08/19 13:55 16:36 23:07 WBC RBC Hgb Hct MCV MCH MCHC RDW Plt Count MPV Neut % (Auto) Lymph % (Auto) Lawrence % (Auto) Eos % (Auto) Baso % (Auto) Lymph # (Auto) Lawrence # (Auto) Eos # (Auto) Baso # (Auto) Absolute Neuts (auto) PT INR APTT pCO2 pO2 HCO3 ABG pH ABG Total CO2 ABG O2 Saturation ABG O2 Content ABG Base Excess ABG Hemoglobin ABG Carboxyhemoglobin POC ABG HHb (Measured) ABG Methemoglobin ABG O2 Capacity ABG Potassium Hgb O2 Saturation Glucose Lactate Mechanical Rate FiO2 Tidal Volume PEEP Sodium Potassium Chloride Carbon Dioxide Anion Gap BUN Creatinine Est GFR ( Amer) Est GFR (Non-Af Amer) POC Glucose (mg/dL) 111 H Random Glucose Calcium Phosphorus Magnesium Total Bilirubin AST ALT Alkaline Phosphatase Total Creatine Kinase CK-MB (CK-2) CK-MB (CK-2) % Troponin I 1.25 H* Total Protein Albumin Globulin Albumin/Globulin Ratio Lipase TSH 3rd Generation Arterial Blood Potassium Urine Color Yellow Urine Appearance Turbid Urine pH 7.5 Ur Specific [place] >= 1.030 Urine Protein >=300 H Urine Glucose (UA) Negative Urine Ketones Trace H Urine Blood Moderate H Urine Nitrate Positive H Urine Bilirubin Negative Urine Urobilinogen 0.2 Ur Leukocyte Esterase Moderate H Urine RBC 0 - 2 Urine WBC Tntc H Urine Bacteria Many Blood Type Antibody Screen BBK History Checked 01/09/19 01/09/19 01/09/19 06:20 06:20 09:00 WBC 15.6 H RBC 3.81 Hgb 11.7 L Hct 38.1 L MCV 100.0 MCH 30.7 MCHC 30.7 L RDW 17.8 H Plt Count 275 MPV 10.9 Neut % (Auto) 67.9 Lymph % (Auto) 17.6 L Lawrence % (Auto) 14.1 H Eos % (Auto) 0.3 L Baso % (Auto) 0.1 Lymph # (Auto) 2.8 Lawrence # (Auto) 2.2 H Eos # (Auto) 0.1 Baso # (Auto) 0.02 Absolute Neuts (auto) 10.59 H PT INR APTT pCO2 34 L pO2 163.0 H HCO3 19.7 L ABG pH 7.37 ABG Total CO2 20.7 L ABG O2 Saturation 97.8 ABG O2 Content 14.6 L ABG Base Excess -4.9 L ABG Hemoglobin 10.9 L ABG Carboxyhemoglobin 1.5 POC ABG HHb (Measured) 2.1 ABG Methemoglobin 3.1 H ABG O2 Capacity 14.9 L ABG Potassium Hgb O2 Saturation 93.3 L Glucose Lactate Mechanical Rate FiO2 50.0 Tidal Volume PEEP Sodium 143 Potassium 5.8 H* Chloride 98 Carbon Dioxide 22 Anion Gap 29 H BUN 120 H Creatinine 11.1 H* Est GFR ( Amer) 5 Est GFR (Non-Af Amer) 5 POC Glucose (mg/dL) Random Glucose 77 Calcium 8.3 L Phosphorus 7.0 H Magnesium 2.4 H Total Bilirubin 0.5 AST 47 ALT 15 Alkaline Phosphatase 74 Total Creatine Kinase CK-MB (CK-2) CK-MB (CK-2) % Troponin I Total Protein 8.3 Albumin 3.8 Globulin 4.4 Albumin/Globulin Ratio 0.9 L Lipase TSH 3rd Generation Arterial Blood Potassium Urine Color Urine Appearance Urine pH Ur Specific [place] Urine Protein Urine Glucose (UA) Urine Ketones Urine Blood Urine Nitrate Urine Bilirubin Urine Urobilinogen Ur Leukocyte Esterase Urine RBC Urine WBC Urine Bacteria Blood Type Antibody Screen BBK History Checked Radiology Impressions: Radiology Impressions Chest X-Ray 01/08/19 11:41 IMPRESSION: No active disease. Cervical Spine CT 01/08/19 11:45 IMPRESSION: Severe degenerative changes. Cervical kyphosis. No acute fracture Head CT 01/08/19 11:45 IMPRESSION: There is a large subdural hematoma over the left hemisphere measuring 25 mm in thickness. There is severe mass effect with 20 mm of midline shift. There is subfalcine and uncal herniation. There is compression of the brainstem and obliteration of the basal cisterns. There is compression of the left lateral ventricle. There enlargement of the right occipital and temporal horns with surrounding vasogenic edema consistent with obstructive hydrocephalus. EKG/Cardiology Studies: Cardiology / EKG Studies 01/08/19 11:41 EKG [ELECTROCARDIOGRAM] Stat Comment: Reason For Exam: chest pain 01/09/19 07:34 EKG [ELECTROCARDIOGRAM] Urgent Comment: Reason For Exam: hyperK Fingerstick Blood Sugar Results: 124 Review of Systems - Review of Systems Systems not reviewed;Unavailable: Altered Mental Status Assessment/Plan - Assessment and Plan (Free Text) Assessment: 73 yo male with PMHX HIV, COPD, Vertigo, Diabetes, Prostate Cancer, and ESRD on dialysis who is under ICU management for epidural hematoma and midline shift. Neuro: -GCS3T, unresponsive to stimuli -Monitor neuro status. -Neuro on board- Dr. Aggarwal -[place] on board- Dr Hernandez - not a surgical candidate Cardio: -RRR, normotensive, no signs of HD compromise -Maintain MAP>65. -Monitor for S/S, HD compromise. -Cardiology on consult - Dr. Weller Pulm: -PRVC 50/5/16/400 -Maintain O2 saturation>90%. Vent: protective lung ventilation strategy, aspiration precautions -01/08 CXR negative for disease, ETT in place -Elevate bed to 30 degrees -Pulm on consult - Dr. Klein GI: -NPO -Protonix /Nephro: -ESRD with Cr 11.1, Augustin in place -Renal on consult - Dr. Arechiga - f/u recs regarding possible HD -Begin NS @ 100 cc/hr -Continue monitoring. -Replete electrolytes as needed. Hyperkalemia treated w cocktail, f/u BMP in afternoon -Maintain euvolemia. Endocrinology: -Random glucose: 77 -Maintain euglycemia. Heme/Onc: -H/H stable -No signs of HD compromise. -Continue monitoring H/H ID: -Febrile, no leukocytosis -Tylenol SD for fever PRN -Follow up BCx, UCx -Lactate 1.3 -Monitor for signs and symptoms of infection. DVT prophylaxis: SCD, no chemoprophylaxis in setting of ICH GI prophylaxis: Pepcid Palliative on board, prognosis guarded Patient seen, case reviewed and plan approved by Dr. Denton [place]. Rafael Clemons, PGY-1 <Deedee [place] - Last Filed: 01/09/19 15:57> CCU Objective - Vital Signs / Intake & Output Vital Signs (Last 4 hours): Vital Signs Temp Pulse BP Pulse Ox 01/09/19 13:50 99.7 F H 109 H 100 01/09/19 13:46 99.7 F H 107 H 157/83 H 100 01/09/19 13:40 99.7 F H 105 H 100 01/09/19 13:30 99.7 F H 103 H 100 01/09/19 13:25 99.5 F 100 H 186/96 H 100 01/09/19 13:20 99.5 F 99 H 100 01/09/19 13:19 99.5 F 98 H 197/108 H 100 01/09/19 13:11 99.3 F 96 H 197/104 H 100 01/09/19 13:10 99.3 F 98 H 100 01/09/19 13:05 99.3 F 98 H 196/107 H 100 01/09/19 13:00 99.3 F 92 H 186/117 H 100 01/09/19 12:50 99.3 F 88 100 01/09/19 12:40 99.1 F 95 H 100 01/09/19 12:30 99.1 F 93 H 100 01/09/19 12:20 99.1 F 92 H 100 01/09/19 12:10 99.0 F 87 100 01/09/19 12:00 99.0 F 89 174/106 H 100 Intake and Output (Last 8hrs): Intake & Output 01/09/19 01/09/19 01/09/19 06:59 14:59 22:59 Intake Total 0 5 Output Total 150 Balance -150 5 Weight 57.198 kg Intake: IV 5 Oral 0 Output: Urine 150 Urethral (Augustin) 150 Other: # Bowel Movements 0 - Medications Active Medications: Active Medications Generic Name Dose Route Start Last Admin Trade Name Freq PRN Reason Stop Dose Admin Acetaminophen 650 mg 01/09/19 10:16 Tylenol 650 Mg Supp RC Q6H PRN Fever >100.4 F Famotidine 20 mg 01/09/19 10:30 01/09/19 11:07 Pepcid IVP 20 mg DAILY DWAIN Administration Sodium Chloride 1,000 mls @ 100 mls/hr 01/09/19 07:45 01/09/19 08:33 Sodium Chloride 0.9% IV 100 mls/hr .Q10H DWAIN Administration Esmolol HCl 250 mls @ 17.159 mls/hr 01/09/19 16:00 Brevibloc IV .[id number] DWAIN Protocol 50 MCG/KG/MIN Patiromer 8.4 gm 01/09/19 15:15 01/09/19 15:22 [place] PO 01/11/19 10:01 Not Given DAILY DWAIN - Patient Studies Lab Studies: Microbiology Studies 01/08/19 12:00 Blood Culture - Preliminary Blood-Venous NO GROWTH AFTER 24 HOURS 01/08/19 11:27 Blood Culture - Preliminary Blood-Venous NO GROWTH AFTER 24 HOURS 01/08/19 13:55 Urine Culture - Preliminary Urine,Catheterized Gram Negative Keshawn Gram Negative Keshawn#2 Lab Studies 01/09/19 01/09/19 01/09/19 Range/Units 12:00 09:00 06:20 WBC (4.5-11.0) 10^3/uL RBC (3.5-6.1) 10^6/uL Hgb (14.0-18.0) g/dL Hct (42.0-52.0) % MCV (80.0-105.0) fl MCH (25.0-35.0) pg MCHC (31.0-37.0) g/dl RDW (11.5-14.5) % Plt Count (120.0-450.0) 10^3/uL MPV (7.0-11.0) fl Neut % (Auto) (50.0-68.0) % Lymph % (Auto) (22.0-35.0) % Lawrence % (Auto) (1.0-6.0) % Eos % (Auto) (1.5-5.0) % Baso % (Auto) (0.0-3.0) % Lymph # (Auto) (1.2-3.4) Lawrence # (Auto) (0.1-0.6) Eos # (Auto) (0.0-0.7) Baso # (Auto) (0.0-2.0) K/mm3 Absolute Neuts (auto) (1.4-6.5) pCO2 34 L (35-45) mm/Hg pO2 163.0 H (80-100) mm/Hg HCO3 19.7 L (21-28) mmol/L ABG pH 7.37 (7.35-7.45) ABG Total CO2 20.7 L (22-28) mmol.L ABG O2 Saturation 97.8 (95-98) % ABG O2 Content 14.6 L (15-23) ML/dl ABG Base Excess -4.9 L (-2.0-3.0) mmol/L ABG Hemoglobin 10.9 L (11.7-17.4) g/dL ABG Carboxyhemoglobin 1.5 (0.5-1.5) % POC ABG HHb (Measured) 2.1 (0-5) % ABG Methemoglobin 3.1 H (0.0-3.0) % ABG O2 Capacity 14.9 L (16-24) mL/dl Hgb O2 Saturation 93.3 L (95.0-98.0) % FiO2 50.0 % Sodium 143 143 (132-148) mmol/L Potassium 5.6 H* 5.8 H* (3.6-5.0) mmol/L Chloride 99 98 (98-107) mmol/L Carbon Dioxide 21 22 (21-33) mmol/L Anion Gap 28 H 29 H (10-20) BUN 124 H* 120 H (7-21) mg/dL Creatinine 11.4 H* 11.1 H* (0.8-1.5) mg/dl Est GFR ( Amer) 5 5 Est GFR (Non-Af Amer) 4 5 POC Glucose (mg/dL) (65-110) mg/dL Random Glucose 84 77 (70-110) mg/dL Calcium 8.3 L 8.3 L (8.4-10.5) mg/dL Phosphorus 7.0 H (2.5-4.5) mg/dL Magnesium 2.4 H (1.7-2.2) mg/dL Total Bilirubin 0.5 (0.2-1.3) mg/dL AST 47 (17-59) U/L ALT 15 (7-56) U/L Alkaline Phosphatase 74 (38-126) U/L Troponin I ng/mL Total Protein 8.3 (5.8-8.3) g/dL Albumin 3.8 (3.0-4.8) g/dL Globulin 4.4 gm/dL Albumin/Globulin Ratio 0.9 L (1.1-1.8) 01/09/19 01/08/19 01/08/19 Range/Units 06:20 23:07 16:36 WBC 15.6 H (4.5-11.0) 10^3/uL RBC 3.81 (3.5-6.1) 10^6/uL Hgb 11.7 L (14.0-18.0) g/dL Hct 38.1 L (42.0-52.0) % MCV 100.0 (80.0-105.0) fl MCH 30.7 (25.0-35.0) pg MCHC 30.7 L (31.0-37.0) g/dl RDW 17.8 H (11.5-14.5) % Plt Count 275 (120.0-450.0) 10^3/uL MPV 10.9 (7.0-11.0) fl Neut % (Auto) 67.9 (50.0-68.0) % Lymph % (Auto) 17.6 L (22.0-35.0) % Lawrence % (Auto) 14.1 H (1.0-6.0) % Eos % (Auto) 0.3 L (1.5-5.0) % Baso % (Auto) 0.1 (0.0-3.0) % Lymph # (Auto) 2.8 (1.2-3.4) Lawrence # (Auto) 2.2 H (0.1-0.6) Eos # (Auto) 0.1 (0.0-0.7) Baso # (Auto) 0.02 (0.0-2.0) K/mm3 Absolute Neuts (auto) 10.59 H (1.4-6.5) pCO2 (35-45) mm/Hg pO2 (80-100) mm/Hg HCO3 (21-28) mmol/L ABG pH (7.35-7.45) ABG Total CO2 (22-28) mmol.L ABG O2 Saturation (95-98) % ABG O2 Content (15-23) ML/dl ABG Base Excess (-2.0-3.0) mmol/L ABG Hemoglobin (11.7-17.4) g/dL ABG Carboxyhemoglobin (0.5-1.5) % POC ABG HHb (Measured) (0-5) % ABG Methemoglobin (0.0-3.0) % ABG O2 Capacity (16-24) mL/dl Hgb O2 Saturation (95.0-98.0) % FiO2 % Sodium (132-148) mmol/L Potassium (3.6-5.0) mmol/L Chloride (98-107) mmol/L Carbon Dioxide (21-33) mmol/L Anion Gap (10-20) BUN (7-21) mg/dL Creatinine (0.8-1.5) mg/dl Est GFR ( Amer) Est GFR (Non-Af Amer) POC Glucose (mg/dL) 111 H (65-110) mg/dL Random Glucose (70-110) mg/dL Calcium (8.4-10.5) mg/dL Phosphorus (2.5-4.5) mg/dL Magnesium (1.7-2.2) mg/dL Total Bilirubin (0.2-1.3) mg/dL AST (17-59) U/L ALT (7-56) U/L Alkaline Phosphatase (38-126) U/L Troponin I 1.25 H* ng/mL Total Protein (5.8-8.3) g/dL Albumin (3.0-4.8) g/dL Globulin gm/dL Albumin/Globulin Ratio (1.1-1.8) Laboratory Results - last 24 hr 01/08/19 01/08/19 01/09/19 16:36 23:07 06:20 WBC 15.6 H RBC 3.81 Hgb 11.7 L Hct 38.1 L MCV 100.0 MCH 30.7 MCHC 30.7 L RDW 17.8 H Plt Count 275 MPV 10.9 Neut % (Auto) 67.9 Lymph % (Auto) 17.6 L Lawrence % (Auto) 14.1 H Eos % (Auto) 0.3 L Baso % (Auto) 0.1 Lymph # (Auto) 2.8 Lawrence # (Auto) 2.2 H Eos # (Auto) 0.1 Baso # (Auto) 0.02 Absolute Neuts (auto) 10.59 H pCO2 pO2 HCO3 ABG pH ABG Total CO2 ABG O2 Saturation ABG O2 Content ABG Base Excess ABG Hemoglobin ABG Carboxyhemoglobin POC ABG HHb (Measured) ABG Methemoglobin ABG O2 Capacity Hgb O2 Saturation FiO2 Sodium Potassium Chloride Carbon Dioxide Anion Gap BUN Creatinine Est GFR ( Amer) Est GFR (Non-Af Amer) POC Glucose (mg/dL) 111 H Random Glucose Calcium Phosphorus Magnesium Total Bilirubin AST ALT Alkaline Phosphatase Troponin I 1.25 H* Total Protein Albumin Globulin Albumin/Globulin Ratio 01/09/19 01/09/19 01/09/19 06:20 09:00 12:00 WBC RBC Hgb Hct MCV MCH MCHC RDW Plt Count MPV Neut % (Auto) Lymph % (Auto) Lawrence % (Auto) Eos % (Auto) Baso % (Auto) Lymph # (Auto) Lawrence # (Auto) Eos # (Auto) Baso # (Auto) Absolute Neuts (auto) pCO2 34 L pO2 163.0 H HCO3 19.7 L ABG pH 7.37 ABG Total CO2 20.7 L ABG O2 Saturation 97.8 ABG O2 Content 14.6 L ABG Base Excess -4.9 L ABG Hemoglobin 10.9 L ABG Carboxyhemoglobin 1.5 POC ABG HHb (Measured) 2.1 ABG Methemoglobin 3.1 H ABG O2 Capacity 14.9 L Hgb O2 Saturation 93.3 L FiO2 50.0 Sodium 143 143 Potassium 5.8 H* 5.6 H* Chloride 98 99 Carbon Dioxide 22 21 Anion Gap 29 H 28 H BUN 120 H 124 H* Creatinine 11.1 H* 11.4 H* Est GFR ( Amer) 5 5 Est GFR (Non-Af Amer) 5 4 POC Glucose (mg/dL) Random Glucose 77 84 Calcium 8.3 L 8.3 L Phosphorus 7.0 H Magnesium 2.4 H Total Bilirubin 0.5 AST 47 ALT 15 Alkaline Phosphatase 74 Troponin I Total Protein 8.3 Albumin 3.8 Globulin 4.4 Albumin/Globulin Ratio 0.9 L EKG/Cardiology Studies: Cardiology / EKG Studies 01/09/19 07:34 EKG [ELECTROCARDIOGRAM] Urgent Comment: Reason For Exam: hyperK Addendum Addendum: 01/09/19 15:57 ICU Attending Addendum Patient seen and examined. Case reviewed on round with housestaff. Agree with resident note above with the following additions/exceptions 73 yo male with PMHX HIV, COPD, Vertigo, Diabetes, Prostate Cancer, and ESRD on dialysis with massive SDH/SAH terminal prognosis pal care working with family will not get HD today cont supportive care until patient's goals of care are fully addressed Rest of care as above in housestaff note Deedee Washington MD Pulmonary Critical Care Attending
--- NOTE | 2019-01-09 12:38 | CON ---
DATE: 01/09/2019 PULMONARY CONSULTATION REASON FOR CONSULTATION: Respiratory failure. REFERRING PHYSICIAN: Dr. Parag Brownlee. History is obtained via extensive discussion with the ICU nurse. I have also reviewed the chart at length. The patient is currently on a ventilator and unresponsive. HISTORY OF PRESENT ILLNESS: The patient is a chronically ill 73-year-old male, with past medical history significant for end-stage renal disease, on hemodialysis, HIV positivity, diabetes mellitus, chronic obstructive pulmonary disease (not on any pulmonary medications), who presents to [facility] after being found at home unresponsive. Apparently, the patient was due for dialysis. When he did not show up for dialysis, the sister went to his home. The sister then found the patient unresponsive on the bathroom floor. She quickly called Emergency Medical Services. The patient was then transported to [facility]. In the emergency room, he remained unresponsive. He was then intubated for airway protection. Again, I did discuss the case with the ICU nurse at length. There is no known history of shortness of breath at rest, dyspnea on exertion, cough, or sputum production. There is no known history of chest pain, coughing up of blood, or chest pain - made worse with deep respirations. There is no history of fevers or chills. However, the patient has had low grade fevers in [facility]. No history of infectious exposure. No history of night sweats, weight loss, or appetite change prior to the above events. No history of leg or calf pains. No history of recent travel. REVIEW OF SYSTEMS: No history of nausea, vomiting, or diarrhea. No acute urinary symptoms. Rest of the review of systems is negative. ALLERGIES: TO NO KNOWN MEDICATIONS. SOCIAL HISTORY: Positive for former tobacco usage. No alcohol. FAMILY HISTORY: No inheritable diseases. HOME MEDICATIONS: Include Flomax, Bactrim, Lopressor, Lamivudine, Lasix, Lipitor, Zyloprim, Abacavir. PHYSICAL EXAMINATION: GENERAL: The patient is currently on a ventilator. He is unresponsive. VITAL SIGNS: Temperature is 100.4, pulse 91, respiratory rate 16/16, blood pressure 150/98. Oxygen saturation on the ventilator - 100%. HEENT: Normocephalic, atraumatic. No JVD. CARDIOVASCULAR: Systolic ejection murmur at the lower left sternal border. No S3 gallop. LUNGS: Decreased breath sounds at the bases. No rhonchi. No wheezing. EXTREMITIES: The patient is status post right [id number] amputation. His left lower extremity shows minimal edema. No cyanosis or clubbing. GASTROINTESTINAL: Abdomen is soft, nondistended. Bowel sounds are positive. SKIN: No acute rash. NEUROLOGIC: Exam limited at the present time. PERTINENT LABORATORY DATA: Diagnostic Imaging: Chest x-ray was done and reviewed. There is no acute disease noted. CAT scan of the head was also done. There is a large subdural hematoma over the left hemisphere measuring 25 mm in thickness. There is severe mass effect with midline shift. Laboratory Tests: Arterial blood gas was done with PRBC of 16, tidal volume 400, FiO2 100%, PEEP of 5. Results are: A pH of 7.41, pCO2 of 38, pO2 of 402. CBC: White count 13.5K, hemoglobin 12.1, hematocrit 38.3, platelets of 331,000. Complete metabolic profile: Potassium 5.2, chloride 94, anion gap 28, BUN 119, creatinine 10.8, glucose 118, phosphorus 7.8, magnesium 2.4, AST 62, creatinine kinase 525, troponin 1.36, total protein 9.4. Rest of the metabolic profile is within normal limits. IMPRESSION: 1. Acute subdural hematoma. 2. Respiratory failure. 3. End-stage renal disease. 4. Anemia. 5. Multiple electrolyte abnormalities. PLAN: Again, I did discuss the case with the ICU nurse at length. I have also reviewed the chart at length. The patient is currently intubated and unresponsive. The patient presents to [facility] after being found unresponsive by his sister. Again, when the patient did not go to dialysis, the sister went to his home. Emergency Medical Services were then called. In the emergency room, the patient remained unresponsive. He was thus intubated for airway protection. I did review the chest x-ray as above. There is no acute disease noted. I have also reviewed the arterial blood gas. The arterial blood gas is very acceptable - with a normal pH and no significant alveolar-arterial gradient. The FiO2 has been changed to 50%. I will check another arterial blood gas this morning. CAT scan of the brain is noted above. There is a large subdural hematoma with midline shift. Inputs by neurology and neurosurgery are noted. The patient is critically ill at this point in time, with poor prognosis. I will discuss the above with the entire ICU team in the next few moments. I will also discuss the above with Dr. Brownlee later this morning. Thank you very much for this pulmonary consultation. Partha Klein MD MTDAnna
[2019-01-09 12:50] LABS: CALCIUM 8.3 mg/dL (8.4-10.5)
[2019-01-09] MEDS ORDERED: Nicardipine 20 MG/200 ML 20 MG/200 ML BAG IV PRN (13:11)
--- NOTE | 2019-01-09 13:23 | PN ---
DATE: 01/09/2019 SUBJECTIVE: Raza Sagastume was in the intensive care unit on the ventilator who had a subdural hematoma with herniation. He was found unresponsive at home. I believe he had fallen and hit his head. He has acute respiratory failure and NSTEMI. He has got end-stage renal disease, on hemodialysis, also urinary tract infection. He is being seen by Neuro, Cardiology, and Renal. I do not know if he can ever come out of the situation. PHYSICAL EXAMINATION: VITAL SIGNS: He has 100.4 temperature, 91 pulse, 150/98 blood pressure, 100% O2 sat on 50%. HEAD: Atraumatic. HEART: Regular rate. LUNGS: Decreased breath sounds. ABDOMEN: Soft. EXTREMITIES: No edema. He has got an amputation, a right AKA. ASSESSMENT AND PLAN: I think we might need to terminally extubate him. We have palliative care monitor on the case hoping that that is the direction we are going to, though I do not think there is anything we could do to improve. He has 15,000 white count, 11.7 hemoglobin, and 275 platelets. When I talk to the family, I will discuss that with them. Raza Sagastume has subdural hematoma and herniation. Parag Brownlee DO MTDD
--- NOTE | 2019-01-09 14:01 | CON ---
DATE OF CONSULTATION: 01/09/2019 CARDIOLOGY CONSULTATION HISTORY: The patient is a 73-year-old male with history of end-stage renal disease, pulmonary hypertension, normal LV function, diabetes mellitus, who was found unconscious at home. CT scan reveals a large subdural hematoma with a marked shift to the brain. Evaluation by Neurosurgery, there was no realistic chance of recovery. No surgical intervention was ordered. Currently, the patient is on a ventilator unconscious. PHYSICAL EXAMINATION: VITAL SIGNS: Blood pressure is 141/78, the heart rate is in the 80s, normal sinus rhythm with occasional PVCs. NECK: Negative JVD. LUNGS: Without rales. CARDIAC: Heart rate S1 and S2. EXTREMITIES: Without edema. LABORATORY DATA: EKG shows diffuse ST-T changes. Laboratories: Hemoglobin is 11.7. Chemistries, BUN and creatinine are 128 and 11.1. Troponins are elevated. IMPRESSION: 1. Marked long large subdural hematoma with marked shift. 2. Loss of consciousness. 3. End-stage renal disease. 4. Anemia. 5. Pulmonary hypertension. 6. Diabetes mellitus. PLAN: Given these findings, the patient's hemodynamic supportive care is stable at this time. His neurologic status is grave with little optimism. Emmanuel Weller MD
--- NOTE | 2019-01-09 14:07 | PCM.PPROG ---
History of Present Illness - History of Present Illness History of Present Illness: unresponsive ,vented Physical Exam - Constitutional Appears: Chronically Ill - Eye Exam Pupil Exam: Fixed - Respiratory Exam Respiratory Exam: Decreased Breath Sounds - Cardiovascular Exam Cardiovascular Exam: REGULAR RHYTHM, +S1, +S2 - GI/Abdominal Exam GI & Abdominal Exam: Normal Bowel Sounds, Soft - Extremities Exam Additional comments: right aka - Skin Skin Exam: Dry, Pallor Palliative Care Assessment - Ralph Scale Sensory Perception: Completely Limited Moisture: Occasionally Moist Activity: Bedfast Mobility: Completely Immobile Nutrition: Very Poor Friction & Shear: Problem Total Score - Skin Risk Assessment: 8 - Psychosocial Distress Outcome: Referred to social scientist, Referred to pastoral care Palliative Care - Goals Treatment Goal(s): Alleviate symptoms, Improve quality of life End of life care discussed: Yes - Plan Interdisciplinary involved: Nurse, workers compensation manager Assessment & Plan - Assessment and Plan (Free Text) Assessment: 73 yo male with PMHX HIV, COPD, Vertigo, Diabetes, Prostate Cancer, and ESRD on dialysis who is under ICU management for epidural hematoma and midline shift. GCS 3 Palliative team spoke with sister, Tonya, who was at bedside. Family has been updated regarding patients condition by neurology and ICU teams. Family is aware of patients poor prognosis and intends to meet this Sunday to make a decision regarding goals of care. In the interim, family would like to continue current treatment measures including dialysis and, if needed, CPR. Time spent in goals of care discussion with family, 30 minutes Plan: Goals of care Continue vent support Neurosurgery : not a candidate Neurology recs pending Monitor glucose levels Monitor BP Dialysis today
--- NOTE | 2019-01-09 15:11 | CP.PCM.CON ---
History of Present Illness - History of Present Illness History of Present Illness: Nephrology Consultation Note: Assessment: critical large SDH with midline shift, uncal herniation and brainstem compression missed HD hyperkalemia hx of prostate CA Hypertensive Chronic Kidney Disease (I12.9) ESRD on HD via permacath (TTS) Anemia (D64.9), HTN (I12.9) HIV on HAART, PVD s/p angioplasty s/p Rt AKA Plan Reviewed CT brain, neuro, surgery recommendations. sister bedside. d/w her that in view of current condition, pt appears to be terminally ill. dialysis at this juncture is futile and not recommended. she agreed with it and also favors comfort measures. she is POA and waiting for more family members to come. will dose with veltassa in the interim. Hypertension control with meds as ordered. Patient on nicardipine drip Dose meds/antibiotics for ESRD status. Further work up/management as per primary team. Neuro Palliative care following condition terminal. prognosis grave. Thanks for allowing me to participate in care of your patient. Will follow patient with you. Please call if any Qs. had d/w team Dr Yandel Arechiga Office: [phone] CC: Fall reason for consult: ESRD HPI: Pt is a 73 y/o M with hx of HIV on HAART, PVD s/p angioplasty, Rt AKA, hypertension (10-15 years), ESRD on HD (via permacath) TTS @ [facility], left foot toe amputations, prostate CA presented with fall and AMS. he was found to have large SDH with midline shifts. pt also missed HD sunday renal consult for ESRD, HTN management pt unable to provide any hx ROS: unable to obtain as pt comatose Physical Examination: General Appearance: in no acute respiratory distress, facial muscles wasted. Vitals reviewed and noted as below Head; Atraumatic, normocephalic ENT: orlaly intubated EYES: Pupils are equal, b/l dilated and fixed. Neck; supple no lymphadenopathy, no thyromegaly or bruit Lungs: vent dependent respiratory rate. Breath sounds bilateral clear Heart: Normal rate. s1s2 normal. No rub or gallop. Extremities: no edema. No varicose veins. s/p Rt AKA Neurological: Patient is comatose and unresponsive Skin: Warm and dry. Normal turgor. Palpitation: Normal elasticity for age. Abdomen: Abdomen is soft. There is no abdominal tenderness, no guarding/rigidity no organomegaly Psych: unable MSK: Digits and nails normal, left foot toe amputations in past. Rt AKA. : kidney or bladder not palpable. has alcala Access: left AVF Labs/imaging/EKG reviewed. Past medical history, past surgical history, family history, social history, allergy reviewed and noted as below Family hx: sister was on dialysis. Rest non-contributory Past Patient History - Infectious Disease Hx of Infectious Diseases: None - Tetanus Immunizations Tetanus Immunization: Up to Date - Past Medical History & Family History Past Medical History?: Yes - Past Social History Smoking Status: Never Smoked - CARDIAC Hx Cardiac Disorders: Yes Hx Hypercholesterolemia: Yes Hx Hypertension: Yes Hx Peripheral Vascular Disease: Yes Other/Comment: cellulitis, angioplasty left tibial artery - PULMONARY Hx Respiratory Disorders: Yes Hx Chronic Obstructive Pulmonary Disease (COPD): Yes - NEUROLOGICAL Hx Neurological Disorder: Yes Hx Dizziness: Yes (vertigo) - HEENT Hx HEENT Problems: No - RENAL Date of Last Dialysis Treatment: 01/07/19 - ENDOCRINE/METABOLIC Hx Endocrine Disorders: Yes - HEMATOLOGICAL/ONCOLOGICAL Hx Blood Disorders: Yes Hx Anemia: Yes Hx Cancer: Yes (PROSTATE CA tx radiation yrs ago) Hx Human Immunodeficiency Virus (HIV): Yes Other/Comment: renal ca - INTEGUMENTARY Hx Dermatological Problems: Yes Other/Comment: left thigh scars, skin discolorations lle, partial amputation left ft toe #3, amputation toes #1 #2, toenails to toes 4 nd 5 thick, dry skin - MUSCULOSKELETAL/RHEUMATOLOGICAL Hx Falls: Yes (found on floor today) - GASTROINTESTINAL Hx Gastrointestinal Disorders: Yes (GI BLEED,H/O C DIFF 1-16-18) Hx Gastroesophageal Reflux: Yes - GENITOURINARY/GYNECOLOGICAL Hx Genitourinary Disorders: Yes (ANURIA) Hx Prostate Problems: Yes (PROSTATE CA, prostatitis) Hx Urinary Tract Infection: Yes - PSYCHIATRIC Hx Substance Use: No - SURGICAL HISTORY Hx Surgeries: Yes Other/Comment: R AKA, theron hd cath - ANESTHESIA Hx Anesthesia: Yes Hx Anesthesia Reactions: No Hx Malignant Hyperthermia: No Meds Allergies/Adverse Reactions: Allergies Allergy/AdvReac Type Severity Reaction Status Date / Time banana Allergy SWELLING Verified 01/08/19 11:30 shrimp Allergy SWELLING Verified 01/08/19 11:30 - Medications Medications: Current Medications Acetaminophen (Tylenol 650 Mg Supp) 650 mg RC Q6H PRN PRN Reason: Fever >100.4 F Famotidine (Pepcid) 20 mg IVP DAILY [facility] Last Admin: 01/09/19 11:07 Dose: 20 mg Sodium Chloride (Sodium Chloride 0.9%) 1,000 mls @ 100 mls/hr IV .Q10H DWAIN Last Admin: 01/09/19 08:33 Dose: 100 mls/hr Nicardipine HCl (Cardene Iv Premix) 20 mg in 200 mls @ 50 mls/hr IV .Q4H PRN; Protocol PRN Reason: TITRATE PER MD ORDER Last Titration: 01/09/19 13:41 Dose: 7.5 mg/hr, 75 mls/hr Results - Vital Signs Recent Vital Signs: Last Vital Signs Temp 99.7 F H 01/09/19 13:50 Pulse 109 H 01/09/19 13:50 Resp 18 01/09/19 04:29 BP 157/83 H 01/09/19 13:46 Pulse Ox 100 01/09/19 13:50 - Labs Result Diagrams: 01/09/19 06:20 01/09/19 12:00 Labs: Laboratory Results - last 24 hr 01/08/19 01/08/19 01/08/19 11:27 16:36 23:07 WBC RBC Hgb Hct MCV MCH MCHC RDW Plt Count MPV Neut % (Auto) Lymph % (Auto) Barbour % (Auto) Eos % (Auto) Baso % (Auto) Lymph # (Auto) [place] # (Auto) Eos # (Auto) Baso # (Auto) Absolute Neuts (auto) pCO2 pO2 HCO3 ABG pH ABG Total CO2 ABG O2 Saturation ABG O2 Content ABG Base Excess ABG Hemoglobin ABG Carboxyhemoglobin POC ABG HHb (Measured) ABG Methemoglobin ABG O2 Capacity Hgb O2 Saturation FiO2 Sodium Potassium Chloride Carbon Dioxide Anion Gap BUN Creatinine Est GFR ( Amer) Est GFR (Non-Af Amer) POC Glucose (mg/dL) 111 H Random Glucose Calcium Phosphorus Magnesium Total Bilirubin AST ALT Alkaline Phosphatase Troponin I 1.36 H* D 1.25 H* Total Protein Albumin Globulin Albumin/Globulin Ratio 05/23/19 05/23/19 05/23/19 06:20 06:20 09:00 WBC 15.6 H RBC 3.81 Hgb 11.7 L Hct 38.1 L MCV 100.0 MCH 30.7 MCHC 30.7 L RDW 17.8 H Plt Count 275 MPV 10.9 Neut % (Auto) 67.9 Lymph % (Auto) 17.6 L Barbour % (Auto) 14.1 H Eos % (Auto) 0.3 L Baso % (Auto) 0.1 Lymph # (Auto) 2.8 [place]bour # (Auto) 2.2 H Eos # (Auto) 0.1 Baso # (Auto) 0.02 Absolute Neuts (auto) 10.59 H pCO2 34 L pO2 163.0 H HCO3 19.7 L ABG pH 7.37 ABG Total CO2 20.7 L ABG O2 Saturation 97.8 ABG O2 Content 14.6 L ABG Base Excess -4.9 L ABG Hemoglobin 10.9 L ABG Carboxyhemoglobin 1.5 POC ABG HHb (Measured) 2.1 ABG Methemoglobin 3.1 H ABG O2 Capacity 14.9 L Hgb O2 Saturation 93.3 L FiO2 50.0 Sodium 143 Potassium 5.8 H* Chloride 98 Carbon Dioxide 22 Anion Gap 29 H BUN 120 H Creatinine 11.1 H* Est GFR ( Amer) 5 Est GFR (Non-Af Amer) 5 POC Glucose (mg/dL) Random Glucose 77 Calcium 8.3 L Phosphorus 7.0 H Magnesium 2.4 H Total Bilirubin 0.5 AST 47 ALT 15 Alkaline Phosphatase 74 Troponin I Total Protein 8.3 Albumin 3.8 Globulin 4.4 Albumin/Globulin Ratio 0.9 L 01/09/19 12:00 WBC RBC Hgb Hct MCV MCH MCHC RDW Plt Count MPV Neut % (Auto) Lymph % (Auto) [place]bour % (Auto) Eos % (Auto) Baso % (Auto) Lymph # (Auto) [place] # (Auto) Eos # (Auto) Baso # (Auto) Absolute Neuts (auto) pCO2 pO2 HCO3 ABG pH ABG Total CO2 ABG O2 Saturation ABG O2 Content ABG Base Excess ABG Hemoglobin ABG Carboxyhemoglobin POC ABG HHb (Measured) ABG Methemoglobin ABG O2 Capacity Hgb O2 Saturation FiO2 Sodium 143 Potassium 5.6 H* Chloride 99 Carbon Dioxide 21 Anion Gap 28 H BUN 124 H* Creatinine 11.4 H* Est GFR ( Amer) 5 Est GFR (Non-Af Amer) 4 POC Glucose (mg/dL) Random Glucose 84 Calcium 8.3 L Phosphorus Magnesium Total Bilirubin AST ALT Alkaline Phosphatase Troponin I Total Protein Albumin Globulin Albumin/Globulin Ratio
[2019-01-09] MEDS ORDERED: Esmolol Hcl 2500mg/250ml NAC 250 ML IV SCH (16:00)
[2019-01-09 16:28] VITALS: BP 95/50; PULSE 251
[2019-01-09] MEDS ORDERED: Morphine PCA 1 mg/ml (30ml) 30 ML IV PRN ×2 (17:05→17:10)
--- NOTE | 2019-01-09 17:44 | CP.PCM.PRO ---
Pronouncement of Note - Autopsy Autopsy Requested: No Addendum Addendum: 01/09/19 17:43 Called to see patient for asystole on monitor post TECHNOLOGY APPLICATIONS CONSULTANT extubation. On exam the patient did not respond to verbal or physical stimuli. Absent heart and breath sounds . Absent peripheral pulses. Pupils are fixed and dilated. Patient pronounced at 17:41 (24 hour format). Next of kin/family at bedside. Autopsy declined. Lonnie Washington MD MICU Attending
[2019-01-09 19:03] VITALS: TEMP 99.9
== END 2019-01-09 17:41 | DRG 82 ==
LOC: ED 11:22 → ERH 13:05 → ICU 15:52
PROVIDERS: ADMIT Family Medicine; ATTEND Family Medicine
PROC: 5A1945Z Respiratory Ventilation, 24-96 Consecutive Hours (ICD-10-PCS; principal; 2019-01-08)
PROC: 0BH17EZ Insertion of Endotracheal Airway into Trachea, Via Natural or Artificial Opening (ICD-10-PCS; 2019-01-08)
DX: S06.5X9A Traumatic subdural hemorrhage with loss of consciousness of unspecified duration, initial encounter (principal); J96.00 Acute respiratory failure, unspecified whether with hypoxia or hypercapnia; G93.5 Compression of brain; G93.6 Cerebral edema; N18.6 End stage renal disease; G91.1 Obstructive hydrocephalus; I12.0 Hypertensive chronic kidney disease with stage 5 chronic kidney disease or end stage renal disease; N39.0 Urinary tract infection, site not specified; S06.6X9A Traumatic subarachnoid hemorrhage with loss of consciousness of unspecified duration, initial encounter; W19.XXXA Unspecified fall, initial encounter; Y93.9 Activity, unspecified; Y92.002 Bathroom of unspecified non-institutional (private) residence as the place of occurrence of the external cause; Z21 Asymptomatic human immunodeficiency virus [HIV] infection status; D64.9 Anemia, unspecified; E11.22 Type 2 diabetes mellitus with diabetic chronic kidney disease; E11.51 Type 2 diabetes mellitus with diabetic peripheral angiopathy without gangrene; E78.00 Pure hypercholesterolemia, unspecified; E87.5 Hyperkalemia; I27.20 Pulmonary hypertension, unspecified; I46.9 Cardiac arrest, cause unspecified; J44.9 Chronic obstructive pulmonary disease, unspecified; K21.9 Gastro-esophageal reflux disease without esophagitis; M40.202 Unspecified kyphosis, cervical region; R40.20 Unspecified coma; Z66 Do not resuscitate; Z51.5 Encounter for palliative care; Z79.899 Other long term (current) drug therapy; Z85.46 Personal history of malignant neoplasm of prostate; Z85.528 Personal history of other malignant neoplasm of kidney; Z87.440 Personal history of urinary (tract) infections; Z87.891 Personal history of nicotine dependence; Z89.511 Acquired absence of right leg below knee; Z89.611 Acquired absence of right leg above knee; Z92.3 Personal history of irradiation; Z98.62 Peripheral vascular angioplasty status; Z99.2 Dependence on renal dialysis; Z91.013 Allergy to seafood; Z91.018 Allergy to other foods